=== PATIENT | male | born 1935 | race Caucasian/White ===

== ENCOUNTER → 2018-04-25 10:42 | Outpatient (CLI) | payer MEDICARE, OTHER, SELFPAY | PROVIDERS: Family Provider Internal Medicine; PCP Internal Medicine; Visit Provider Internal Medicine Cardiovascular Disease | DX: I48.92 Unspecified atrial flutter (principal) | CPT/HCPCS: 93225; 93226 ==

== ENCOUNTER → 2018-07-02 10:50 | Outpatient (CLI) | payer MEDICARE, OTHER, SELFPAY ==
--- NOTE | 2018-07-02 10:51 | ECHOD_ITS ---
Reason For Study: MURMUR Procedure This was a 2D Doppler, Color Flow transthoracic echocardiogram. The study was technically difficult. Exam performed in department. Left Ventricle Normal LV size. Left ventricular systolic function is normal. The estimated ejection fraction is 65 %. There is evidence of diastolic dysfunction. No regional wall motion abnormalities noted. Right Ventricle Normal RV size. Normal systolic function. Atria Normal left atrium. Normal right atrium. No doppler evidence for ASD. Mitral Valve There is moderate to severe mitral annular calcification. Extension of the mitral annular calcification onto the posterior mitral valve leafleet. Trivial mitral valve insufficiency. Tricuspid Valve Normal tricuspid valve. Mild tricuspid valve insufficiency. Right ventricular systolic pressure estimated to be 58 mmHg. Aortic Valve Trisinus/trileaflet aortic valve. Moderate diffuse aortic valve thickening. Moderate diffuse aortic valve calcification. Moderate to severe aortic valve stenosis. Pulmonic Valve The pulmonic valve is not well visualized. Trivial pulmonic valve insufficiency. Great Vessels Normal sized aortic root. Pericardium/Pleural No pericardial effusion. MMode/2D Measurements & Calculations LVIDd: 4.0 cm IVSd: 1.0 cm LVOT diam: 2.0 cm LVIDs: 2.7 cm LVPWd: 0.93 cm LVOT area: 3.3 cm2 RVDd: 3.4 cm FS: 33.2 % Ao root diam: 3.2 cm LAV(MOD-bp): 42.7 ml LVAd ap4: 28.1 cm2 LAV(MOD-bp) Indexed: 24.0 ml/m2 EDV(MOD-sp4): 87.1 ml LAV(MOD-sp2): 46.9 ml EDV(sp4-el): 88.8 ml LAV(MOD-sp4): 34.7 ml LVAs ap4: 18.5 cm2 ESV(MOD-sp4): 41.3 ml ESV(sp4-el): 43.1 ml EF(MOD-sp4): 52.6 % EF(sp4-el): 51.5 % SV(MOD-sp4): 45.8 ml SV(sp4-el): 45.7 ml LA A4 area: 15.2 cm2 LA dimension(2D): 2.8 cm RA A4 area: 14.0 cm2 Time Measurements MV dec time: 0.27 sec Doppler Measurements & Calculations MV E max herb: 128.9 cm/sec Lat Peak E' Herb: 8.4 cm/sec Med Peak E' Herb: 5.6 cm/sec MV A max herb: 178.6 cm/sec E/E' lat: 15.3 E/E' med: 22.9 MV E/A: 0.72 MV V2 max: 207.0 cm/sec Ao V2 max: 330.8 cm/sec LV V1 max: 94.3 cm/sec MV max P.1 mmHg Ao max P.9 mmHg LV V1 max P.6 mmHg MV V2 mean: 131.5 cm/sec Ao V2 mean: 250.2 cm/sec LV V1 mean P.1 mmHg MV mean P.8 mmHg Ao mean P.5 mmHg LV V1 mean: 67.6 cm/sec MV V2 VTI: 40.0 cm Ao V2 VTI: 79.6 cm LV V1 VTI: 22.9 cm MVA(VTI): 1.9 cm2 YVONNE(I,D): 0.94 cm2 YVONNE(V,D): 0.93 cm2 SV(LVOT): 74.7 ml PA V2 max: 107.9 cm/sec TR max herb: 368.6 cm/sec TR max P.5 mmHg Interpretation Summary The study was technically difficult. Left ventricular systolic function is normal. The estimated ejection fraction is 65 %. There is moderate to severe mitral annular calcification. Extension of the mitral annular calcification onto the posterior mitral valve leafleet. Trivial mitral valve insufficiency. Mild tricuspid valve insufficiency. Moderate to severe aortic valve stenosis. Trivial pulmonic valve insufficiency. Right ventricular systolic pressure estimated to be 58 mmHg c/w pulmonary hypertension. There is evidence of diastolic dysfunction. Ordering Physician: Jason Alan Referring Physician: Jason Alan Performed By: Thuy Mckenna RDCS
--- OUTSIDE RECORDS SUMMARY | 2018-08-14 02:35 | XMS RPT_ITS ---
:1935 Author Organization OHIP Support Name Relationship Address Phone R Unavailable Unavailable Unavailable DAO, ANGY Unavailable [address] + [place] [address] R Unavailable Unavailable Unavailable DAO, ANGY Unavailable [address] + [place] [address] R Unavailable Unavailable Unavailable DAO, ANYG Unavailable [address] + [place] [address] R Unavailable Unavailable Unavailable DAO, ANGY Unavailable [address] + [place] [address] R Unavailable Unavailable Unavailable DAO, ANGY Unavailable [address] + [place] [address] R Unavailable Unavailable Unavailable DAO, ANGY Unavailable [address] + [place] [address] R Unavailable Unavailable Unavailable DAO, AGNY Unavailable [address] + [place] [address] R Unavailable Unavailable Unavailable DAO, ANGY Unavailable [address] + [place] [address] R Unavailable Unavailable Unavailable DAO, ANGY Unavailable [address] + [place] [address] R Unavailable Unavailable Unavailable DAO, ANGY Unavailable [address] + [place] [address] R Unavailable Unavailable Unavailable DAO, ANGY Unavailable [address] + [place] [address] R Unavailable Unavailable Unavailable DAO, ANGY Unavailable [address] + [place] [address] R Unavailable Unavailable Unavailable DAO, ANGY Unavailable [address] + [place] [address] R Unavailable Unavailable Unavailable DAO, ANGY Unavailable [address] + [place] [address] R Unavailable Unavailable Unavailable DAO, ANGY Unavailable [address] + [place] [address] R Unavailable Unavailable Unavailable DAO, ANGY Unavailable [address] + [place] [address] Care Team Providers Name Role Phone CAROLANN LI Referring Unavailable BECKWITH, MISAEL Guillaume Referring Unavailable KOKO, SARA Edwards Attending Unavailable LI, CAROLANN Referring Unavailable BECKWITH, MISAEL Guillaume Attending Unavailable BECKWITH, MISAEL Guillaume Referring Unavailable BECKWITH, MISAEL Guillaume Referring Unavailable LI, CAROLANN Attending Unavailable LI, CAROLANN Referring Unavailable LI, CAROLANN Referring Unavailable BECKWITH, MISAEL Guillaume Attending Unavailable BECKWITH, MISAEL Guillaume Referring Unavailable KOKO, SARA Edwards Referring Unavailable KOKO, SARA Edwards Referring Unavailable KOKO, SARA Edwards Attending Unavailable LI, CAROLANN Referring Unavailable Cipriano Puckett.Guillermo. Attending Unavailable Beckwith, Misael Primary Care Unavailable RoofEliceo Attending Unavailable Beckwith, Misael Referring Unavailable SewellXena Attending Unavailable Shu Chahal Attending Unavailable Beckwith, Misael Referring Unavailable Beckwith, Misael Primary Care Unavailable RoofEliceo Attending Unavailable DeFinisAshley Attending Unavailable RoofEliceo Attending Unavailable Beckwith, Misael Referring Unavailable Zuly, Briana Attending Unavailable Beckwith, Misael Referring Unavailable Cipriano Puckett.Guillermo. Attending Unavailable Beckwith, Misael Referring Unavailable Zuly, Briana Attending Unavailable Beckwith, Misael Referring Unavailable Zuly, Briana Attending Unavailable Beckwith, Misael Referring Unavailable Beckwith, Misael Primary Care Unavailable Moodispaw, Jason Attending Unavailable MoodispawJason Referring Unavailable Beckwith, Misael Primary Care Unavailable Moodispaw, Jason Attending Unavailable Beckwith, Misael Referring Unavailable Moodispaw, Jason Attending Unavailable MoodispawJason Referring Unavailable Moodispaw, Jason Attending Unavailable MoodispawJason Referring Unavailable Beckwith, Misael Primary Care Unavailable Moodispaw, Jason Attending Unavailable Moodispaw, Jason Referring Unavailable Beckwith, Misael Primary Care Unavailable Jason Alan Consulting Unavailable PROBLEMS PROBLEMS DATE TYPE CONDITION / CODE ATTENDING STATUS SOURCE 07/08/2018 Unknown I36.1 - Jason Alan Active [facility] tricuspid (valve[facility] insufficiency / Repository I36.1(ICD-10) 06/25/2017 Active Chronic respiratory NA Active [facility] failure with [place] hypoxia / Repository J96.11(ICD-10) 02/07/2017 Active Chronic obstructive NA Active [facility] pulmonary disease [place] with (acute) Repository exacerbation / J44.1(ICD-10) 06/13/2018 Active Other nonspecific NA Active [facility] abnormal finding of [place] lung field / Repository R91.8(ICD-10) 06/13/2018 Active Chronic obstructive NA Active [facility] pulmonary disease, [place] unspecified / Repository J44.9(ICD-10) 06/13/2018 Active 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 / [place] C33(ICD-10) Repository 06/13/2018 Active Malignant neoplasm NA Active [facility] of overlapping [place] sites of Repository unspecified bronchus and lung / C34.80(ICD-10) 06/08/2018 Active Encounter for NA Active [facility] immunization / [place] Z23(ICD-10) Repository 04/25/2018 Unknown I48.92 - Jason Alan Active [place] [facility] flutter / Hospital I48.92(ICD-10) Repository 06/25/2017 Active Acute on chronic NA Active [facility] diastolic [place] (congestive) heart Repository failure / I50.33(ICD-10) 10/26/2015 Active Essential (primary) NA Active [facility] hypertension / [place] I10(ICD-10) Repository 01/02/2018 Active Personal history of NA Active [facility] other malignant [place] neoplasm of Repository bronchus and lung / Z85.118(ICD-10) 01/02/2018 Active Pleural effusion, NA Active [facility] not elsewhere [place] classified / Repository J90(ICD-10) 09/04/2017 Active 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, unspecified [place] / K11.9(ICD-10) Repository PROCEDURES PROCEDURES No Procedure Records FoundRESULTS RESULTS ECHOCARDIOGRAM COMPLETE Observed: 07/02/2018 Status: F Source: [place] [facility] Cardiovascular Services [address] [place] [address] Echo Complete 07/02/18 1055 MR#: [id number] Acct: [id number] Name: BENJY DC Rep #: [id number] : 1935 82 From: Jason Alan MD Attending Dr: Jason Alan MD Status: REG CLI Ordering Dr: Jason Alan MD Date: 07/02/18 Location: [facility] Sex: M C Admitted: Reason For Study: MURMUR Procedure This was a 2D Doppler, Color Flow transthoracic echocardiogram. The study was technically difficult. Exam performed in department. Left Ventricle Normal LV size. Left ventricular systolic function is normal. The estimated ejection fraction is 65 %. There is evidence of diastolic dysfunction. No regional wall motion abnormalities noted. Right Ventricle Normal RV size. Normal systolic function. Atria Normal left atrium. Normal right atrium. No doppler evidence for ASD. Mitral Valve There is moderate to severe mitral annular calcification. Extension of the mitral annular calcification onto the posterior mitral valve leafleet. Trivial mitral valve insufficiency. Tricuspid Valve Normal tricuspid valve. Mild tricuspid valve insufficiency. Right ventricular systolic pressure estimated to be 58 mmHg. Aortic Valve Trisinus/trileaflet aortic valve. Moderate diffuse aortic valve thickening. Moderate diffuse aortic valve calcification. Moderate to severe aortic valve stenosis. Pulmonic Valve The pulmonic valve is not well visualized. Trivial pulmonic valve insufficiency. Great Vessels Normal sized aortic root. Pericardium/Pleural No pericardial effusion. MMode/2D Measurements AND Calculations LVIDd: 4.0 cm IVSd: 1.0 cm LVOT diam: 2.0 cm LVIDs: 2.7 cm LVPWd: 0.93 cm LVOT area: 3.3 cm2 RVDd: 3.4 cm FS: 33.2 % Ao root diam: 3.2 cm LAV(MOD-bp): 42.7 ml LVAd ap4: 28.1 cm2 LAV(MOD-bp) Indexed: 24.0 ml/m2 EDV(MOD-sp4): 87.1 ml LAV(MOD-sp2): 46.9 ml EDV(sp4-el): 88.8 ml LAV(MOD-sp4): 34.7 ml LVAs ap4: 18.5 cm2 ESV(MOD-sp4): 41.3 ml ESV(sp4-el): 43.1 ml EF(MOD-sp4): 52.6 % EF(sp4-el): 51.5 % SV(MOD-sp4): 45.8 ml SV(sp4-el): 45.7 ml LA A4 area: 15.2 cm2 LA dimension(2D): 2.8 cm RA A4 area: 14.0 cm2 Time Measurements MV dec time: 0.27 sec Doppler Measurements AND Calculations MV E max herb: 128.9 cm/sec Lat Peak E' Herb: 8.4 cm/sec Med Peak E' Herb: 5.6 cm/sec MV A max herb: 178.6 cm/sec E/E' lat: 15.3 E/E' med: 22.9 MV E/A: 0.72 MV V2 max: 207.0 cm/sec Ao V2 max: 330.8 cm/sec LV V1 max: 94.3 cm/sec MV max P.1 mmHg Ao max P.9 mmHg LV V1 max P.6 mmHg MV V2 mean: 131.5 cm/sec Ao V2 mean: 250.2 cm/sec LV V1 mean P.1 mmHg MV mean P.8 mmHg Ao mean P.5 mmHg LV V1 mean: 67.6 cm/sec MV V2 VTI: 40.0 cm Ao V2 VTI: 79.6 cm LV V1 VTI: 22.9 cm MVA(VTI): 1.9 cm2 YVONNE(I,D): 0.94 cm2 YVONNE(V,D): 0.93 cm2 SV(LVOT): 74.7 ml PA V2 max: 107.9 cm/sec TR max herb: 368.6 cm/sec TR max P.5 mmHg Interpretation Summary The study was technically difficult. Left ventricular systolic function is normal. The estimated ejection fraction is 65 %. There is moderate to severe mitral annular calcification. Extension of the mitral annular calcification onto the posterior mitral valve leafleet. Trivial mitral valve insufficiency. Mild tricuspid valve insufficiency. Moderate to severe aortic valve stenosis. Trivial pulmonic valve insufficiency. Right ventricular systolic pressure estimated to be 58 mmHg c/w pulmonary hypertension. There is evidence of diastolic dysfunction. Ordering Physician: Jason Alan Physician: Jason Alan Performed By: Thuy Mckenna RDCS 07/02/18 1538 Date Jason Alan MD CC: Jason lAan MD; Misael Beckwith MD Date Dictated: 07/02/18 1055 Date Transcribed: 07/02/18 1538 Mechanical Detailer: Signed PROGRESS Observed: 06/13/2018 Status: COMPLETED Source: [place] 11:01 AM [facility] [place] REPOSITORY HNO ID: [id number] Author: Yesy [address] Ct Service: (none) Author Type: (none) Type: Progress Notes Filed: 06/13/2018 11:01 AM Note Text: Radiology Service Progress Note PATIENT NAME: Benjy Dc DATE OF SERVICE: June 13, 2018 TIME: 11:01 AM PATIENT IDENTITY VERIFICATION COMPLETED USING TWO (2) METHODS: Patient confirmed name verbally and Date of . PATIENT GENDER DATA: Male PATIENT RELEVANT IMPLANT DATA REVIEWED: Not Applicable RADIOLOGY DEPARTMENT: CT; Exam(s) Completed: Chest PERIPHERAL IV DATA: Not applicable SIGNED BY: Yesy Grady June 13, 2018 11:[address] CHEST WO IVCON Observed: 06/13/2018 Status: F Source: [place] 10:25 AM [facility] [place] REPOSITORY * * *Final Report* * * DATE OF EXAM: Jun 13 2018 10:25AM [facility] 0541 - CT CHEST WO IVCON / PROCEDURE REASON: multiple diagnoses * * * * Physician Interpretation * * * * EXAMINATION: CHEST CT WITHOUT CONTRAST CLINICAL HISTORY: History of lung cancer of the right lower lobe status post radiation therapy completed on 10/19/2015. Also with history of COPD. Follow-up study. Technique: Spiral CT acquisition of the chest from the thoracic inlet to the upper abdomen without contrast. MQ: CTCWOR_4 CT Dose-Length Product: 184 mGy*cm CT Dose Reduction Employed: Yes Comparison: Prior CTs of the chest including from 01/02/2018. RESULT: Limitations: None. Lines, tubes, and devices: Left chest wall dual chamber pacemaker with leads in appropriate position. Lung parenchyma and pleura: Central airways are patent without endobronchial lesion. Bilateral bronchial wall thickening. Mild saber sheath configuration of the trachea consistent with COPD. Bilateral severe centrilobular and paraseptal emphysema with an upper lung zone predominance. Stable calcified biapical scarring, most pronounced in the right apex. There is redemonstration of an ill-defined region of consolidation in the right lung base with radiating bands of scar/fibrosis and associated volume loss, consistent with postradiation fibrosis. No interval increase in overall size. Scattered granulomata. Stable 5 mm nodule in the left lower lobe (image 178). No new or enlarging pulmonary nodule. There is redemonstration of a trace loculated right pleural effusion, stable to minimally decreased in size when compared to 01/02/2018. No left pleural effusion. No pneumothorax. Thoracic inlet, heart, and mediastinum: No axillary, supraclavicular, or definite hilar lymphadenopathy. Numerous stable small, mildly prominent mediastinal nodes, for example a right upper paratracheal node measuring 8 mm in short axis, and 9 mm prevascular node (image 62). 8 mm left paratracheal lymph node (image 91), previously 10 mm, and 9 mm subcarinal lymph node (image 116), stable. The thoracic aorta is normal in caliber with calcifications of the aortic root and suspected of the leaflets, atherosclerosis of the aortic arch and descending aorta, and proximal branch vessels. The main pulmonary artery is normal in caliber. The cardiac chambers are normal in size. Mitral annular and papillary muscle calcifications. Dense coronary artery atherosclerotic calcifications are noted in a three-vessel distribution, although the study is not optimized for coronary assessment. No pericardial effusion or thickening. The thyroid gland is unremarkable. The esophagus is patulous. Bones and soft tissues: Remote right eighth and ninth rib fractures. Multilevel degenerative changes of the thoracic spine with stable multilevel vertebral body height loss. No acute or destructive osseous lesions. The soft tissues of the chest wall are unremarkable. Upper abdomen: Vascular calcifications. Colonic diverticulosis. Splenic granulomata. IMPRESSION: Overall stable study when compared to 01/02/2018 with demonstration of treated neoplasm in the right lower lobe with sequelae of radiation fibrosis. Stable 5 mm nodule in the anterior left lower lobe. No new or enlarging pulmonary nodules. No progressive thoracic lymphadenopathy. Overall slight decrease in size of multiple mildly prominent mediastinal nodes. Unchanged tiny loculated right pleural effusion. Severe emphysema. Mechanical Detailer: RICHARD Transcribe Date/Time: Jun 13 2018 1:07P Dictated by : MICHAEL PRESTON MD This examination was interpreted and the report reviewed and electronically signed by: JO-ANN TRAYLOR MD on Jun 13 2018 4:25PM EST [id number] CNNURSE Observed: 06/08/2018 Status: COMPLETED Source: [place] 10:50 AM [facility] REPOSITORY Nurse Visit ([facility]) BENJY DC ([id number]) 1935 M Date Time Provider Department 06/08/18 10:50 AM [facility] During your visit today, we recorded the following information about you: Yesy Lafleur [place] 06/08/2018 11:00 AM Signed 82 year old male here for INACTIVATED INFLUENZA VACCINE. 9007-8604 Season Patient is identified by name and date of : Yes [] CONTRAINDICATIONS color enhanced section Age less than 6 months? No Allergy to eggs, chicken, chicken feathers, or chicken dander? No Allergy to thimerosal (a preservative) or formaldehyde, gelatin? No History of severe reaction to any vaccine component or a previous dose of influenza vaccination? No History of Guillain-Pembroke Syndrome within 6 weeks after a previous influenza vaccine? No Patient is not moderately or severely ill? No Current temperature greater or equal to 100.4F? No History of Bone Marrow Transplant prior 6 months or solid organ transplant in the past 3 months ? No History of fainting after a prior injection or medical procedure? No- ? If patient has fainted in the past, the CDC recommends sitting or lying down for 15 minutes after the vaccination. [] VERIFICATION color enhanced section Was the answer Yes for any of the above contraindications? No contraindications present. Acceptable to proceed with vaccine. Patient/guardian agrees the above answers are true to the best of their knowledge? Yes Flu vaccine information sheet given? Yes See immunization activity in [facility] for details of immunizations adminstered today. Patient age: [age] year old For The 3050-5785 Flu Season 6-35 months old: Fluzone 0.25 ml - IM (Preservative Free) 3 years of age: Fluzone 0.5 ml - IM (Preservative Free) 3 years and older: Fluzone 0.5 ml- IM-(with Preservatives) 65+ years old: 2-49 years old Fluzone High-Dose 0.5 ml - IM (Preservative Free) FLUMIST- intranasal REMEMBER: If patient is less than 9 years of age and this is the first vaccine of Influenza to be received in any flu season, they should receive a second dose in one months time. Referring Provider: MISAEL BECKWITH [[id number]] Allergies As of Date: 06/08/2018 Noted Allergy Reaction AMOXICILLIN 06/08/2014 2 - Rash BACTRIM (SULFAMETHOXAZOLE-TRIMETH*05/25/2017 2 - Rash CODEINE 04/28/2005 2 - Rash SULFUR 10/27/2016 2 - Rash 4 - Hives ZPAK (AZITHROMYCIN) 12/07/2011 2 - Rash Date Reviewed: 03/21/2018 Reviewed by: Sara Bonner - Fully Assessed Reason for Visit: Imm/Inj [58] Cmt: Flu Vaccine Primary Visit Diagnosis:Need for vaccination [Z23] Order(s):INFLUENZA SEASONAL HIGH DOSE AGE 65+ [[id number]] Order #: [id number] Prescriptions as of 06/08/2018 Sig: LOSARTAN 25 MG TABLET Take 1 tablet by mouth once d* UMECLIDINIUM 62.5 MCG-VILANTE* Inhale 1 Inhalation as instru* ALBUTEROL SULFATE HFA 90 MCG/* Inhale 2 Puffs as instructed * FUROSEMIDE 40 MG TABLET Take 1 tablet by mouth once d* AMLODIPINE 5 MG TABLET Take 1 tablet by mouth once d* POLYETHYLENE GLYCOL 3350 17 G* Use one scoop daily as needed. * CHOLECALCIFEROL (VITAMIN D3) * Take one(1) tablet daily. Problem List As Of Date 06/08/2018 Noted Resolved Other emphysema (HCC) [J43.8] 10/28/2016 Elevated prostate specific antigen (PSA) [R97.2*INVALID FOR*10/28/2016 Chronic obstructive pulmonary disease with acut*INVALID FOR* Dysphagia [R13.10] INVALID FOR*09/25/2017 Early satiety [R68.81] INVALID FOR*10/28/2016 GERD (gastroesophageal reflux disease) [K21.9] INVALID FOR*09/25/2017 Hernia, hiatal [K44.9] INVALID FOR*10/28/2016 Medicare annual wellness visit, subsequent [Z00*INVALID FOR*10/28/2016 Personal history of colonic polyps [Z86.010] INVALID FOR*10/28/2016 HTN (hypertension) [I10] INVALID FOR*10/26/2015 Hyperlipidemia [E78.5] INVALID FOR* Lung nodule [R91.1] INVALID FOR*10/28/2016 BPH (benign prostatic hyperplasia) [N40.0] INVALID FOR* Elevated PSA [R97.20] INVALID FOR*10/28/2016 Dysphagia [R13.10] INVALID FOR*10/07/2015 Essential hypertension [I10] INVALID FOR* Non-small cell lung cancer (NSCLC) (HCC) [C34.9*INVALID FOR* Panlobular emphysema (HCC) [J43.1] INVALID FOR*10/28/2016 Chronic bilateral thoracic back pain [M54.6, G8*INVALID FOR*02/07/2017 Constipation [K59.00] INVALID FOR*02/21/2018 Status post stereotactic radiosurgery (SBRT rig*INVALID FOR* Acute on chronic diastolic congestive heart pete*INVALID FOR* Chronic respiratory failure with hypoxia (HCC) *INVALID FOR* Aortic valve stenosis [I35.0] INVALID FOR* Pacemaker [Z95.0] INVALID FOR* AV block, Mobitz 1 [I44.1] INVALID FOR* Pulmonary hypertension (HCC) [I27.20] INVALID FOR* Encounter Status:Closed by YESY LAFLEUR LPN on 06/08/18 PROGRESS Observed: 06/04/2018 Status: COMPLETED Source: [place] 12:43 PM [facility] REPOSITORY HNO ID: [id number] Author: Yesy Lafleur LPN Service: (none) Author Type: (none) Type: Progress Notes Filed: 06/08/2018 11:00 AM Note Text: 82 year old male here for INACTIVATED INFLUENZA VACCINE. 3299-1648 Season Patient is identified by name and date of : Yes [] CONTRAINDICATIONS color enhanced section Age less than 6 months? No Allergy to eggs, chicken, chicken feathers, or chicken dander? No Allergy to thimerosal (a preservative) or formaldehyde, gelatin? No History of severe reaction to any vaccine component or a previous dose of influenza vaccination? No History of Guillain-Pembroke Syndrome within 6 weeks after a previous influenza vaccine? No Patient is not moderately or severely ill? No Current temperature greater or equal to 100.4F? No History of Bone Marrow Transplant prior 6 months or solid organ transplant in the past 3 months ? No History of fainting after a prior injection or medical procedure? No- ? If patient has fainted in the past, the CDC recommends sitting or lying down for 15 minutes after the vaccination. [] VERIFICATION color enhanced section Was the answer Yes for any of the above contraindications? No contraindications present. Acceptable to proceed with vaccine. Patient/guardian agrees the above answers are true to the best of their knowledge? Yes Flu vaccine information sheet given? Yes See immunization activity in [facility] for details of immunizations adminstered today. Patient age: [age] year old For The 6598-3528 Flu Season 6-35 months old: Fluzone 0.25 ml - IM (Preservative Free) 3 years of age: Fluzone 0.5 ml - IM (Preservative Free) 3 years and older: Fluzone 0.5 ml- IM-(with Preservatives) 65+ years old: 2-49 years old Fluzone High-Dose 0.5 ml - IM (Preservative Free) FLUMIST- intranasal REMEMBER: If patient is less than 9 years of age and this is the first vaccine of Influenza to be received in any flu season, they should receive a second dose in one months time. CARDIOLOGY VISIT Observed: 05/20/2018 Status: F Source: [place] 12:33 PM [facility] [place] [facility] [address] [place] [address]. [address] [place] [address] OFFICE VISIT Date of Service: 05/20/18 MR#: [id number] Acct: [id number] Name: BENJY DC Rep #: [id number] : 1935 Provider: Jason Alan MD Age/Sex: 82/M Location: [facility] [place] Status: Signed HPI HPI Details: BENJY DC, is a 82 M who presents to the office today for for outpatient cardiovascular follow-up. From a cardiac standpoint he denies ongoing palpitations or rapid rates. He denies any near syncope or syncope. There has been no new chest discomfort or difficulty breathing. His pacemaker has been interrogated. There was a question of mode switching with potential underlying atrial flutter x1. He underwent a 24-hour Holter monitor to further evaluate his rate and rhythm. He was in an AV synchronous or AV sequential paced rhythm with no underlying atrial dysrhythmias detected. He has not required additional cardiovascular diagnostic studies or therapeutic intervention. He is pending an upcoming [facility] follow-up for his underlying pulmonary disease process. Intake Vital Signs05/20/18 Height 5 ft 7 in 05/20/18 Weight: 155 lb 05/20/18 Body Mass Index (BMI) 24.3 05/20/18 Blood Pressure 148/68 H Intake Visit Reasons: 9 M FU Allergies ampicillin Allergy (Verified 05/20/18 11:26) Anaphylaxis codeine Allergy (Verified 05/20/18 11:26) Rash penicillin G Allergy (Verified 05/20/18 11:26) Rash Sulfa (Sulfonamide Antibiotics) Allergy (Verified 05/20/18 11:26) Rash Medications Albuterol IH (ProAir) [Proair Hfa] 1 puff INHALATION Q4H PRN PRN 07/10/14 [History Confirmed 05/20/18] Cholecalciferol (VIT D3) [Vitamin D3] 1,000 unit PO DAILY 06/25/16 [History Confirmed 05/20/18] Polyethylene Glycol 3350 [Miralax] 17 gm PO DAILY PRN PRN 09/27/16 [History Confirmed 05/20/18] Acetaminophen [Tylenol Tablet] 650 mg PO Q6H PRN PRN #0 tab 10/24/16 [Rx Confirmed 05/20/18] Amlodipine [Norvasc] 5 mg PO DAILY #30 tab 06/12/17 [Rx Confirmed 05/20/18] Furosemide [Lasix] 40 mg PO DAILY #30 tab 06/12/17 [Rx Confirmed 05/20/18] Losartan Potassium 25 mg PO DAILY #0 06/12/17 [Rx Confirmed 05/20/18] umeclidinium 62.5 mcg-vilanterol 25 mcg/actuation powdr for inhalation 1 inh INHALATION Q24H 08/16/17 [History Confirmed 05/20/18] PFSH Medical History Paroxysmal atrial flutter (Acute) Acute on chronic diastolic (congestive) heart failure (Acute) Aortic valve stenosis, nonrheumatic (Acute) 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) Chronic respiratory failure (Chronic) Dyspnea (Acute) COPD (chronic obstructive pulmonary disease) (Chronic) Chest pain (Acute) Pulmonary congestion (Acute) Conduction disorder of the heart (Acute) Aortic valve disorder (Chronic) Pulmonary hypertension (Chronic) Acute exacerbation of chronic obstructive pulmonary disease (Acute) Acute exacerbation of chronic obstructive pulmonary disease (COPD) (Acute) Drug rash (Acute) FH: cardiovascular disease (Chronic) Family history of diabetes mellitus (DM) (Chronic) Colon polyps (Chronic) Hyperglycemia (Acute) CAP (community acquired pneumonia) (Acute) GERD (gastroesophageal reflux disease) (Chronic) Hyponatremia (Acute) Dehydration (Acute) Bullous emphysema (Chronic) Lung nodule, solitary (Acute) Lung cancer (Chronic) HTN (hypertension) (Chronic) Anxiety (Acute) Hemoptysis (Acute) Mobitz type 1 second degree AV block (Acute) Chronic hypoxemic respiratory failure (Chronic) Surgical History History of permanent cardiac pacemaker placement (Resolved) History of appendectomy (Resolved) Hx of cataract surgery (Resolved) Family History Brother Diabetes Sister Diabetes Lung cancer Social History Smoking Status: Former smoker quit date: 08/06/59 pack-years: 5 second hand exposure: No alcohol intake: never substance use type: does not use caffeine: Yes Type: coffee Number of servings: 4 what type of physical activity do you participate in: none seatbelt use: always do you feel safe at home: Yes ROS Const Const: Positive for fatigue (no get up and go); negative for weakness, weight gain, weight loss, frequent falls or excessive sweating Eyes Eyes: Negative for change in vision, blurry vision or transient loss of vision ENT ENT: Negative for dizziness or balance problems Cardio Chest Pain: No Palpitations: No Edema: None Muscle aches with walking: None Resp Respiratory: Positive for SOB with activity (improving); negative for SOB at rest Additional Details: Patient wears continuous oxygen @ 3-4L NC GI GI: Negative vomiting or vomiting blood/hematemesis : Negative for hematuria Musc Musc: Positive for muscle aches/ myalgia (Bilat hips, back); negative for balance problems, muscle weakness or joint pain Skin Skin: Negative non-healing lesions or rash Neuro Neuro: Negative for weakness, blurry vision, dizziness, lightheadedness, frequent falls or orthostatic symptoms Jasvir Hematologic/Lymphatic: Negative for easy bleeding Endo Endo: Positive for fatigue (no get up and go); negative for excessive sweating Psych Psych: Negative for anxiety or depression Allergy Allergy/Immunology: Negative for hives, Negative for rash Cardiology Exam Const Appearance: cooperative, healthy appearing, comfortable, no acute distress, well developed, well groomed and other (examined in the wheelchair) Nutritional Appearance: average body habitus Orientation: alert, awake and oriented x3 Head Head: normal to inspection, normocephalic and atraumatic Ears: hearing grossly normal bilaterally Nose: external nose normal Face and Sinus: face symmetric Mouth: oral mucosae normal Teeth and gingiva: fair dentition Eyes Eyelids: eyelids normal Conjunctivae: conjunctivae normal Pupils: PERRL EOM: EOM intact bilaterally Neck Neck: no JVD, normal visual inspection and full ROM Carotids: normal carotid upstroke Chest Chest inspection: normal inspection of the chest, normal respiratory effort and symmetric chest movement Auscultation: Bilateral: Clear to Auscultation Cardio Palpation: normal PMI Rate: regular rate Rhythm: regular rhythm Heart sounds: murmur (Right sternal systolic murmur); negative rub or gallop Murmur: Grade 3/6, harsh, mid systolic, LLSB, LVOT and sternal notch GI GI: normal to inspection, bowel sounds present and soft Neuro General: alert, awake, oriented x3 and moves all extremities Skin Skin: no rashes or lesions noted Extremities Pulses: Normal: Right Posterior Tibial Pulse, Left Posterior Tibial Pulse, Right Radial Pulse, Left Radial Pulse Lower Extremity Edema: None: Bilateral Psych Psychological: normal affect Assessment AND Plan 1. 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 He has a permanent pacemaker in place. He is ventricular pacing, based on his last evaluation, 99% of the time. It appears this is either AV synchronous or AV sequential. 2. History of permanent cardiac pacemaker placement Z95.0 06/11/17 Plan His pacemaker was interrogated as noted above. It does appear to be functioning appropriately. Based upon his one isolated mode switch she did undergo further evaluation as noted above. At the present time he will continue to be followed. His paced interrogation will be followed for any other potential atrial dysrhythmias. If he does have ongoing concerning atrial dysrhythmias then consideration ought to be given as to additional evaluation and/or medical therapy. 3. Aortic valve stenosis, nonrheumatic I35.0 Plan He does have underlying aortic valve stenosis. He was evaluated in early June 2017. It was thought to be moderate at that time. He will have a follow-up echocardiogram in the near future to reassess his aortic valve anatomy and physiology for progression of disease since last year. 4. Non-rheumatic tricuspid valve insufficiency I36.1 Plan Again he has underlying tricuspid valve disease/regurgitation. He will be reassessed as noted above Orders Orders: 5. Pulmonary HTN I27.20 Plan The echocardiogram had can help estimate his right sided/pulmonary pressures. In the meantime he continues to follow with pulmonology as well. He continues with O2 supplemental therapy. 6. Essential hypertension I10 Plan His blood pressure appears to be somewhat elevated today. He states he monitors his blood pressure at home. At home his blood pressures have been within acceptable ranges with respect to his systolic blood pressures being between 120 and 130 mmHg on average. He will continue to monitor his blood pressures. If his systolic and/or diastolic blood pressures trend upward then he may need further adjustment of his medication. 7. Paroxysmal atrial flutter I48.92 Plan Again there was concern about 1 isolated mode switch suggesting atrial flutter. There is been no obvious documented recurrence. He will continue to be followed. Again if there are recurrent episodes of atrial dysrhythmias then consideration might be given as to how to further evaluate and/or treat him including concerns of the need for potential anticoagulant therapy. Plan Detail Additional Comments Thank you for allowing me to participate in the care of your patient. Please don't hesitate to call if any issues arise. This note was generated using a voice recognition system and there may be incorrect words, spelling or punctuation that were not noted when reviewing the office note prior to saving. 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 [place] [address] Pacemaker Check Date of Service: 03/27/18 1518 MR#: [id number] Acct: [id number] Name: BENJY DC Rep #: [id number] : 1935 From: Briana Caruso Age/Sex: 82/M Location: [facility] [place] Status: Signed Billing Codes PM Device Codes: PM Dev Interrogate (Remot 03/27/18 1526 <Electronically signed by Briana Caruso > Date Briana Caruso 03/27/18 1546<Electronically signed by Jason Alan MD> Cosigner Signature: Date (if applicable) Jason Alan MD CC: PROGRESS Observed: 03/21/2018 Status: COMPLETED Source: [place] 11:54 AM [facility] [place] REPOSITORY O ID: [id number] Author: Sara Bonner Service: (none) Author Type: Physician Type: Progress Notes Filed: 03/21/2018 11:55 AM Note Text: Subjective HPI Benjy Dc is a 82 year old male who presents with follow-up right parotid mass. Patient has no new complaints presently. Patient did have an attempt at a ultrasound-guided needle biopsy but they were not able to do it due to the small size and the proximity to the retromandibular vein. Patient has had this since 2013 with little if any change. Patient's PET scan did show increased activity in this area as well. ROS General Weight loss: No Fatigue: No Night sweats:No Cardiac Chest pain:No Fast heart rate:No Swelling in the feet:No Respiratory Short of breath:No Cough:No Wheezing:No Gastrointestinal Nausea:No Vomiting:No Indigestion:No Past medical history family history social history reviewed Objective Physical Exam PHYSICAL EXAM: There were no vitals taken for this visit. General: Patient is awake, alert, NAD. Voice is normal. Skin: normal Eyes: Extraocular motion and Gaze is normal. Ears: Right external auditory canal is normal. TMJ: normal. Right tympanic membranes normal. Left external auditory canal is normal. Left tympanic membrane normal. Nose: Septum is normal. Turbinates are normal. Nasopharynx:normal Oral Cavity/Oropharynx: Lips normal Dentition normal Tongue normal. Tonsils normal. Palate and uvula normal. Pharynx posterior normal Hypopharynx: Base of tongue normal Pyriform sinus normal. Larynx: Vocal cords normal. Epiglottis normal. Post cricoid normal. Salivary glands: Parotid normal. Submandibular and sublingual normal. Thyroid: normal. Lymphatic/Neck: Lymph nodes normal. Neurologic: Facial nerve normal. CT reviewed ASSESSMENT/PLAN: 1. Parotid mass - ICD9: 784.2, ICD10: K11.9 Follow-up 6 months may need to repeat CT will defer FNA at this time Sara Bonner MD CNOV Observed: 03/21/2018 Status: COMPLETED Source: [place] 11:30 AM [facility] [place] REPOSITORY Office Visit (OTOLMM) BENJY DC ([id number]) 1935 M Date Time Provider Department 03/21/18 11:30 AM SARA BONNER During your visit today, we recorded the following information about you: Sara Bonner MD 03/21/2018 11:55 AM Signed Subjective HPI Benjy Dc is a 82 year old male who presents with follow-up right parotid mass. Patient has no new complaints presently. Patient did have an attempt at a ultrasound-guided needle biopsy but they were not able to do it due to the small size and the proximity to the retromandibular vein. Patient has had this since 2013 with little if any change. Patient's PET scan did show increased activity in this area as well. ROS General Weight loss: No Fatigue: No Night sweats:No Cardiac Chest pain:No Fast heart rate:No Swelling in the feet:No Respiratory Short of breath:No Cough:No Wheezing:No Gastrointestinal Nausea:No Vomiting:No Indigestion:No Past medical history family history social history reviewed Objective Physical Exam PHYSICAL EXAM: There were no vitals taken for this visit. General: Patient is awake, alert, NAD. Voice is normal. Skin: normal Eyes: Extraocular motion and Gaze is normal. Ears: Right external auditory canal is normal. TMJ: normal. Right tympanic membranes normal. Left external auditory canal is normal. Left tympanic membrane normal. Nose: Septum is normal. Turbinates are normal. Nasopharynx:normal Oral Cavity/Oropharynx: Lips normal Dentition normal Tongue normal. Tonsils normal. Palate and uvula normal. Pharynx posterior normal Hypopharynx: Base of tongue normal Pyriform sinus normal. Larynx: Vocal cords normal. Epiglottis normal. Post cricoid normal. Salivary glands: Parotid normal. Submandibular and sublingual normal. Thyroid: normal. Lymphatic/Neck: Lymph nodes normal. Neurologic: Facial nerve normal. CT reviewed ASSESSMENT/PLAN: 1. Parotid mass - ICD9: 784.2, ICD10: K11.9 Follow-up 6 months may need to repeat CT will defer FNA at this time Sara Bonner MD Referring Provider: CAROLANN LI [[id number]] Allergies As of Date: 03/21/2018 Noted Allergy Reaction AMOXICILLIN 06/08/2014 2 - Rash BACTRIM (SULFAMETHOXAZOLE-TRIMETH*05/25/2017 2 - Rash CODEINE 04/28/2005 2 - Rash SULFUR 10/27/2016 2 - Rash 4 - Hives ZPAK (AZITHROMYCIN) 12/07/2011 2 - Rash Date Reviewed: 03/21/2018 Reviewed by: Sara Bonner - Fully Assessed Reason for Visit: parotid nodule [Other] Cmt: found on PET scan. Patient does not know which side. Reason For Visit History Recorded Primary Visit Diagnosis:Parotid mass [K11.9] Prescriptions as of 03/21/2018 Sig: LOSARTAN 25 MG TABLET Take 1 tablet by mouth once d* UMECLIDINIUM 62.5 MCG-VILANTE* Inhale 1 Inhalation as instru* ALBUTEROL SULFATE HFA 90 MCG/* Inhale 2 Puffs as instructed * FUROSEMIDE 40 MG TABLET Take 1 tablet by mouth once d* AMLODIPINE 5 MG TABLET Take 1 tablet by mouth once d* POLYETHYLENE GLYCOL 3350 17 G* Use one scoop daily as needed. * CHOLECALCIFEROL (VITAMIN D3) * Take one(1) tablet daily. Problem List As Of Date 03/21/2018 Noted Resolved Other emphysema (HCC) [J43.8] 10/28/2016 Elevated prostate specific antigen (PSA) [R97.2*INVALID FOR*10/28/2016 Chronic obstructive pulmonary disease with acut*INVALID FOR* Dysphagia [R13.10] INVALID FOR*09/25/2017 Early satiety [R68.81] INVALID FOR*10/28/2016 GERD (gastroesophageal reflux disease) [K21.9] INVALID FOR*09/25/2017 Hernia, hiatal [K44.9] INVALID FOR*10/28/2016 Medicare annual wellness visit, subsequent [Z00*INVALID FOR*10/28/2016 Personal history of colonic polyps [Z86.010] INVALID FOR*10/28/2016 HTN (hypertension) [I10] INVALID FOR*10/26/2015 Hyperlipidemia [E78.5] INVALID FOR* Lung nodule [R91.1] INVALID FOR*10/28/2016 BPH (benign prostatic hyperplasia) [N40.0] INVALID FOR* Elevated PSA [R97.20] INVALID FOR*10/28/2016 Dysphagia [R13.10] INVALID FOR*10/07/2015 Essential hypertension [I10] INVALID FOR* Non-small cell lung cancer (NSCLC) (HCC) [C34.9*INVALID FOR* Panlobular emphysema (HCC) [J43.1] INVALID FOR*10/28/2016 Chronic bilateral thoracic back pain [M54.6, G8*INVALID FOR*02/07/2017 Constipation [K59.00] INVALID FOR*02/21/2018 Status post stereotactic radiosurgery (SBRT rig*INVALID FOR* Acute on chronic diastolic congestive heart pete*INVALID FOR* Chronic respiratory failure with hypoxia (HCC) *INVALID FOR* Aortic valve stenosis [I35.0] INVALID FOR* Pacemaker [Z95.0] INVALID FOR* AV block, Mobitz 1 [I44.1] INVALID FOR* Pulmonary hypertension (HCC) [I27.20] INVALID FOR* Encounter Status:Closed by SARA BNONER MD on 03/21/18 PROGRESS Observed: 02/21/2018 Status: COMPLETED Source: [place] 12:41 PM [facility] REPOSITORY HNO ID: [id number] Author: Misael Beckwith Service: (none) Author Type: Physician Type: Progress Notes Filed: 02/21/2018 12:51 PM Note Text: This note was created using [email or web address]. Subjective Benjy Dc is a 82 year old male here for follow up, aside from an annual wellness. His conditions were stable. He had no particular concerns. ACTIVE PROBLEM LIST Chronic Obstructive Pulmonary Disease With Acute Exacerbation (Hcc) Hyperlipidemia Bph (Benign Prostatic Hyperplasia) Essential Hypertension Non-Small Cell Lung Cancer (Nsclc) (Hcc) Status post stereotactic radiosurgery (SBRT right lung) Acute On Chronic Diastolic Congestive Heart Failure (Hcc) Chronic Respiratory Failure With Hypoxia (Hcc) Aortic Valve Stenosis Pacemaker Av Block, Mobitz 1 Pulmonary Hypertension (Hcc) Current Outpatient Prescriptions: losartan (COZAAR) 25 mg tablet Take 1 tablet by mouth once daily. umeclidinium-vilanterol (ANORO ELLIPTA) 62.5-25 mcg/actuation inhaler Inhale 1 Inhalation as instructed once daily. albuterol HFA (PROAIR HFA) 90 mcg/actuation inhaler Inhale 2 Puffs as instructed every 4 hours as needed. furosemide (LASIX) 40 mg tablet Take 1 tablet by mouth once daily. amLODIPine (NORVASC) 5 mg tablet Take 1 tablet by mouth once daily. polyethylene glycol 3350 (MIRALAX) 17 gram/dose powder Use one scoop daily as needed. CHOLECALCIFEROL (VITAMIN D3) 1,000 UNIT CAP Take one(1) tablet daily. No current facility-administered medications for this visit. Review of Systems Constitutional: Negative. Respiratory: Positive for cough, shortness of breath and wheezing. Cardiovascular: Positive for leg swelling. Negative for chest pain and palpitations. Gastrointestinal: Negative. Genitourinary: Negative. Neurological: Negative. Objective BP 138/62 (BP Site: Right Arm, BP Position: Sitting, BP Cuff Size: Regular Adult) Pulse 68 Temp 36.2 ?C (97.1 ?F) (Left Tympanic) Resp 20 Ht 165.1 cm (5' 5) Wt 69.3 kg (152 lb 12.8 oz) SpO2 98% BMI 25.43 kg/m? Physical Exam Constitutional: No distress. On O2. Neck: No JVD present. Carotid bruit is not present. Cardiovascular: S1 normal and S2 normal. Exam reveals distant heart sounds. Murmur heard. Systolic murmur is present with a grade of 1/6 At apex and base. Musculoskeletal: He exhibits edema. 1-2+ bipedal edema. Neurological: He is alert. Coordination normal. Component Latest Ref Rng AND Units 02/15/2018 WBC 3.70 - 11.00 k/uL 7.00 RBC 4.20 - 6.00 m/uL 4.46 Hemoglobin 13.0 - 17.0 g/dL 13.2 Hematocrit 39.0 - 51.0 % 43.1 MCV 80.0 - 100.0 fL 96.6 MCH 26.0 - 34.0 pG 29.6 MCHC 30.5 - 36.0 g/dL 30.6 RDW-CV 11.5 - 15.0 % 12.1 Platelet Count 150 - 400 k/uL 224 MPV 9.0 - 12.7 fL 9.3 Neut% % 60.6 Abs Neut (ANC) 1.45 - 7.50 k/uL 4.25 Lymph% % 24.9 Abs Lymph 1.00 - 4.00 k/uL 1.74 Rapides% % 10.9 Abs Rapides <0.87 k/uL 0.76 Eosin% % 2.9 Abs Eosin <0.46 k/uL 0.20 Baso% % 0.7 Abs Baso <0.11 k/uL 0.05 Nucleated Reds 0 /100 WBC 0.0 Absolute nRBC <0.01 k/uL <0.01 Diff Type Auto Diff Protein, Total 6.3 - 8.0 g/dL 6.9 Albumin 3.9 - 4.9 g/dL 4.3 Calcium 8.5 - 10.2 mg/dL 9.8 Bilirubin, Total 0.2 - 1.3 mg/dL 0.4 Alkaline Phosphatase 36 - 108 U/L 76 AST 14 - 40 U/L 23 Glucose 74 - 99 mg/dL 102 (H) BUN 9 - 24 mg/dL 13 Creatinine 0.73 - 1.22 mg/dL 0.75 Sodium 136 - 144 mmol/L 136 Potassium 3.7 - 5.1 mmol/L 4.7 Chloride 97 - 105 mmol/L 93 (L) CO2 22 - 30 mmol/L 32 (H) Anion Gap 9 - 18 mmol/L 11 ALT 10 - 54 U/L 19 eGFR- >60 eGFR-All Other Races . >60 Cholesterol, Total <200 mg/dL 165 Triglyceride <150 mg/dL 51 HDL Cholesterol >39 mg/dL 67 LDL Cholesterol <100 mg/dL 88 Non HDL Cholesterol <130 mg/dL 98 Fasting Time hrs 11 VLDL Cholesterol <30 mg/dL 10 TC:HDL Ratio <5.10 2.46 LDL:HDL Ratio <2.54 1.31 Assessment and Plan 1. Medicare annual wellness visit, subsequent - ICD9: V70.0, ICD10: Z00.00 (primary diagnosis) See other note. 2. Essential hypertension - ICD9: 401.9, ICD10: I10 - good control 3. Chronic obstructive pulmonary disease with acute exacerbation (HCC) - ICD9: 491.21, ICD10: J44.1 Stable. 4. Chronic respiratory failure with hypoxia (HCC) - ICD9: 518.83, 799.02, ICD10: J96.11 Stable. 5. Acute on chronic diastolic congestive heart failure (HCC) - ICD9: 428.33, 428.0, ICD10: I50.33 Stable. Continue medications. See printed instructions or information. Misael Beckwith MD PROGRESS Observed: 02/21/2018 Status: COMPLETED Source: [place] 11:23 AM [facility] REPOSITORY O ID: [id number] Author: Misael Beckwith Service: (none) Author Type: Physician Type: Progress Notes Filed: 02/21/2018 12:51 PM Note Text: ANNUAL MEDICARE WELLNESS Medical B eligibility date 10/04/2008 Date of last exam 07/21/2013 PAST MEDICAL HISTORY Diagnosis Date - Acute on chronic diastolic congestive heart failure (HCC) 06/25/2017 - Aortic valve stenosis 06/25/2017 - AV block, Mobitz 1 06/25/2017 - Benign neoplasm of colon - BPH (benign prostatic hyperplasia) 07/08/2014 - Chronic airway obstruction, not elsewhere classified 02/09/2009 - Chronic bilateral thoracic back pain 10/27/2016 - Chronic respiratory failure with hypoxia (HCC) 06/25/2017 - Dysphagia, unspecified(787.20) - Early satiety - Elevated prostate specific antigen (PSA) 04/28/2005 - Enlargement of lymph nodes - GERD (gastroesophageal reflux disease) 04/04/2010 - Hernia, hiatal 04/04/2010 - Hypertension - Non-small cell lung cancer (NSCLC) ([facility] [place]) 10/26/2015 - Personal history of colonic polyps 08/08/2012 - Pulmonary hypertension (HCC) 06/25/2017 - Status post stereotactic radiosurgery (SBRT right lung) 10/19/2015 PAST SURGICAL HISTORY Procedure Laterality Date - APPENDECTOMY 1953 age 19 - BIOPSY LUNG PERC NEEDLE Right 07/2014 non diagnostic - BRONCHOSCOPY Right 09/30/2015 - COLONOSCOP W/ OR W/O BRSH SPEC 03/03/2009 Colonoscopy - COLONOSCOPY 02/02/2016 - COLONOSCOPY W/BIOPSY 08/08/2012 - COLONOSCOPY W/BX 01/30/05 - EGD W/O BRS SPECIMEN W/BX 04/01/10 - EGD W/O OR W/BRUSH/WASH 04/23/14 EGD - EGD W/O OR W/BRUSH/WASH 10/07/15 EGD - PACEMAKER DUAL CHAMBER TIER 0 Left 06/11/2017 - PAST SURGICAL HISTORY OF 2001 removal left neck lymph node - REMV CATARACT EXTRACAP,INSERT LENS Right 2002 Cataract Removal Amoxicillin; Bactrim [Sulfamethoxazole-Trimethoprim]; Codeine; Sulfur; Zpak [Azithromycin] Medications reviewed: Yes FAMILY HISTORY Problem Relation Age of Onset - Heart Mother - COPD Brother - Diabetes Sister - Heart Brother CABG at age 76, age 78. SOCIAL HISTORY: Social History Marital status: Spouse name: Years of education: Number of children: 4 Social History Main Topics Smoking status: Former Smoker Packs/day: 0.00 Years: 50.00 Types: Cigars Start date: 10/22/1955 Quit date: 08/06/2005 Smokeless tobacco: Never Used Comment: Started w/ cigarettes. Cigars last 40 years. TO Alcohol use: No Drug use: No Sexual activity: No Benjy denies regular aerobic exercise. He watches his diet for sodium, low fat and low cholesterol most of the time. List of current specialists seen: Dr. Li, pulmonary. Dr. Alan, cardiology. Dr. Beasley, ophthalmology. End of Live Planning discussed including patients advanced directive wishes: No I am willing to follow Benjy's advanced directives. Depression screen He in the past two weeks denies having felt down, depressed, hopeless or with little interest or pleasure in doing things. Functional Ability/Safety Screen 1. Was the patient's timed Up and Go test unsteady or longer than 30 seconds? No 2. Does the patient need help with the phone, transportation, shopping,preparing meals, housework, laundry, medications or managing money? No 3. Does your home have rugs in the hallway, lack of grab bars in the bathroom, lack of handrails on the stairs or have poor lighting? No Hearing Evaluation: normal PHYSICAL EXAM BP 138/62 (BP Site: Right Arm, BP Position: Sitting, BP Cuff Size: Regular Adult) Pulse 68 Temp 36.2 ?C (97.1 ?F) (Left Tympanic) Resp 20 Ht 165.1 cm (5' 5) Wt 69.3 kg (152 lb 12.8 oz) SpO2 98% BMI 25.43 kg/m? Alert and oriented X 3: YES Body mass index is 25.43 kg/m?. Visual acuity: forgot glasses. ASSESSMENT/PLAN: 82 year old male The following prevention plan was discussed during the office visit and provided to the patient: - Fall avoidance - Vaccines recommended SHINGRIX. Misael Beckwith MD CNOV Observed: 02/21/2018 Status: COMPLETED Source: [place] 10:20 AM [facility] [place] REPOSITORY Office Visit (INTMWS) BENJY DC ([id number]) 1935 M Date Time Provider Department 02/21/18 10:20 AM MISAEL BECKWITH [facility] During your visit today, we recorded the following information about you: Temperature Pulse Respiration Blood pressure 97.1 degrees 68/minute 20/minute 138/62 Weight Height 69.3 kg 1.651 m Misael Beckwith MD 02/21/2018 12:51 PM Signed ANNUAL MEDICARE WELLNESS Medical B eligibility date 10/04/2008 Date of last exam 07/21/2013 PAST MEDICAL HISTORY Diagnosis Date - Acute on chronic diastolic congestive heart failure (HCC) 06/25/2017 - Aortic valve stenosis 06/25/2017 - AV block, Mobitz 1 06/25/2017 - Benign neoplasm of colon - BPH (benign prostatic hyperplasia) 07/08/2014 - Chronic airway obstruction, not elsewhere classified 02/09/2009 - Chronic bilateral thoracic back pain 10/27/2016 - Chronic respiratory failure with hypoxia (HCC) 06/25/2017 - Dysphagia, unspecified(787.20) - Early satiety - Elevated prostate specific antigen (PSA) 04/28/2005 - Enlargement of lymph nodes - GERD (gastroesophageal reflux disease) 04/04/2010 - Hernia, hiatal 04/04/2010 - Hypertension - Non-small cell lung cancer (NSCLC) (HCC) 10/26/2015 - Personal history of colonic polyps 08/08/2012 - Pulmonary hypertension (HCC) 06/25/2017 - Status post stereotactic radiosurgery (SBRT right lung) 10/19/2015 PAST SURGICAL HISTORY Procedure Laterality Date - APPENDECTOMY 1954 age 19 - BIOPSY LUNG PERC NEEDLE Right 07/2014 non diagnostic - BRONCHOSCOPY Right 09/30/2015 - COLONOSCOP W/ OR W/O BRSH SPEC 03/03/2009 Colonoscopy - COLONOSCOPY 02/02/2016 - COLONOSCOPY W/BIOPSY 08/08/2012 - COLONOSCOPY W/BX 01/30/05 - EGD W/O BRSH SPECIMEN W/BX 04/01/10 - EGD W/O OR W/BRUSH/WASH 04/23/14 EGD - EGD W/O OR W/BRUSH/WASH 10/07/15 EGD - PACEMAKER DUAL CHAMBER TIER 0 Left 06/11/2017 - PAST SURGICAL HISTORY OF 2001 removal left neck lymph node - REMV CATARACT EXTRACAP,INSERT LENS Right 2001 Cataract Removal Amoxicillin; Bactrim [Sulfamethoxazole-Trimethoprim]; Codeine; Sulfur; Zpak [Azithromycin] Medications reviewed: Yes FAMILY HISTORY Problem Relation Age of Onset - Heart Mother - COPD Brother - Diabetes Sister - Heart Brother CABG at age 76, age 78. SOCIAL HISTORY: Social History Marital status: Spouse name: Years of education: Number of children: 4 Social History Main Topics Smoking status: Former Smoker Packs/day: 0.00 Years: 50.00 Types: Cigars Start date: 10/22/1954 Quit date: 08/06/2005 Smokeless tobacco: Never Used Comment: Started w/ cigarettes. Cigars last 40 years. TO Alcohol use: No Drug use: No Sexual activity: No Benjy denies regular aerobic exercise. He watches his diet for sodium, low fat and low cholesterol most of the time. List of current specialists seen: Dr. Li, pulmonary. Dr. Alan, cardiology. Dr. Beasley, ophthalmology. End of Live Planning discussed including patients advanced directive wishes: No I am willing to follow eBnjy's advanced directives. Depression screen He in the past two weeks denies having felt down, depressed, hopeless or with little interest or pleasure in doing things. Functional Ability/Safety Screen 1. Was the patient's timed Up and Go test unsteady or longer than 30 seconds? No 2. Does the patient need help with the phone, transportation, shopping,preparing meals, housework, laundry, medications or managing money? No 3. Does your home have rugs in the hallway, lack of grab bars in the bathroom, lack of handrails on the stairs or have poor lighting? No Hearing Evaluation: normal PHYSICAL EXAM BP 138/62 (BP Site: Right Arm, BP Position: Sitting, BP Cuff Size: Regular Adult) Pulse 68 Temp 36.2 ?C (97.1 ?F) (Left Tympanic) Resp 20 Ht 165.1 cm (5' 5) Wt 69.3 kg (152 lb 12.8 oz) SpO2 98% BMI 25.43 kg/m? Alert and oriented X 3: YES Body mass index is 25.43 kg/m?. Visual acuity: forgot glasses. ASSESSMENT/PLAN: 82 year old male The following prevention plan was discussed during the office visit and provided to the patient: - Fall avoidance - Vaccines recommended SHINGRIX. MD Misael Rajput MD 02/21/2018 11:40 AM Signed Recombinant shingles vaccine (Shingrix) is recommended; 2 doses 2-6 months apart. Please read information, check with your insurance, and call to schedule vaccination. You may also be directed to your local pharmacy. Misael Beckwith MD 02/21/2018 12:51 PM Signed This note was created using NoteWriter. Subjective Benjy Dc is a 82 year old male here for follow up, aside from an annual wellness. His conditions were stable. He had no particular concerns. ACTIVE PROBLEM LIST Chronic Obstructive Pulmonary Disease With Acute Exacerbation (Hcc) Hyperlipidemia Bph (Benign Prostatic Hyperplasia) Essential Hypertension Non-Small Cell Lung Cancer (Nsclc) (Hcc) Status post stereotactic radiosurgery (SBRT right lung) Acute On Chronic Diastolic Congestive Heart Failure (Hcc) Chronic Respiratory Failure With Hypoxia (Hcc) Aortic Valve Stenosis Pacemaker Av Block, Mobitz 1 Pulmonary Hypertension (Hcc) Current Outpatient Prescriptions: losartan (COZAAR) 25 mg tablet Take 1 tablet by mouth once daily. umeclidinium-vilanterol (ANORO ELLIPTA) 62.5-25 mcg/actuation inhaler Inhale 1 Inhalation as instructed once daily. albuterol HFA (PROAIR HFA) 90 mcg/actuation inhaler Inhale 2 Puffs as instructed every 4 hours as needed. furosemide (LASIX) 40 mg tablet Take 1 tablet by mouth once daily. amLODIPine (NORVASC) 5 mg tablet Take 1 tablet by mouth once daily. polyethylene glycol 3350 (MIRALAX) 17 gram/dose powder Use one scoop daily as needed. CHOLECALCIFEROL (VITAMIN D3) 1,000 UNIT CAP Take one(1) tablet daily. No current facility-administered medications for this visit. Review of Systems Constitutional: Negative. Respiratory: Positive for cough, shortness of breath and wheezing. Cardiovascular: Positive for leg swelling. Negative for chest pain and palpitations. Gastrointestinal: Negative. Genitourinary: Negative. Neurological: Negative. Objective BP 138/62 (BP Site: Right Arm, BP Position: Sitting, BP Cuff Size: Regular Adult) Pulse 68 Temp 36.2 ?C (97.1 ?F) (Left Tympanic) Resp 20 Ht 165.1 cm (5' 5) Wt 69.3 kg (152 lb 12.8 oz) SpO2 98% BMI 25.43 kg/m? Physical Exam Constitutional: No distress. On O2. Neck: No JVD present. Carotid bruit is not present. Cardiovascular: S1 normal and S2 normal. Exam reveals distant heart sounds. Murmur heard. Systolic murmur is present with a grade of 1/6 At apex and base. Musculoskeletal: He exhibits edema. 1-2+ bipedal edema. Neurological: He is alert. Coordination normal. Component Latest Ref Rng AND Units 02/15/2018 WBC 3.70 - 11.00 k/uL 7.00 RBC 4.20 - 6.00 m/uL 4.46 Hemoglobin 13.0 - 17.0 g/dL 13.2 Hematocrit 39.0 - 51.0 % 43.1 MCV 80.0 - 100.0 fL 96.6 MCH 26.0 - 34.0 pG 29.6 MCHC 30.5 - 36.0 g/dL 30.6 RDW-CV 11.5 - 15.0 % 12.1 Platelet Count 150 - 400 k/uL 224 MPV 9.0 - 12.7 fL 9.3 Neut% % 60.6 Abs Neut (ANC) 1.45 - 7.50 k/uL 4.25 Lymph% % 24.9 Abs Lymph 1.00 - 4.00 k/uL 1.74 Rapides% % 10.9 Abs Rapides <0.87 k/uL 0.76 Eosin% % 2.9 Abs Eosin <0.46 k/uL 0.20 Baso% % 0.7 Abs Baso <0.11 k/uL 0.05 Nucleated Reds 0 /100 WBC 0.0 Absolute nRBC <0.01 k/uL <0.01 Diff Type Auto Diff Protein, Total 6.3 - 8.0 g/dL 6.9 Albumin 3.9 - 4.9 g/dL 4.3 Calcium 8.5 - 10.2 mg/dL 9.8 Bilirubin, Total 0.2 - 1.3 mg/dL 0.4 Alkaline Phosphatase 36 - 108 U/L 76 AST 14 - 40 U/L 23 Glucose 74 - 99 mg/dL 102 (H) BUN 9 - 24 mg/dL 13 Creatinine 0.73 - 1.22 mg/dL 0.75 Sodium 136 - 144 mmol/L 136 Potassium 3.7 - 5.1 mmol/L 4.7 Chloride 97 - 105 mmol/L 93 (L) CO2 22 - 30 mmol/L 32 (H) Anion Gap 9 - 18 mmol/L 11 ALT 10 - 54 U/L 19 eGFR- >60 eGFR-All Other Races . >60 Cholesterol, Total <200 mg/dL 165 Triglyceride <150 mg/dL 51 HDL Cholesterol >39 mg/dL 67 LDL Cholesterol <100 mg/dL 88 Non HDL Cholesterol <130 mg/dL 98 Fasting Time hrs 11 VLDL Cholesterol <30 mg/dL 10 TC:HDL Ratio <5.10 2.46 LDL:HDL Ratio <2.54 1.31 Assessment and Plan 1. Medicare annual wellness visit, subsequent - ICD9: V70.0, ICD10: Z00.00 (primary diagnosis) See other note. 2. Essential hypertension - ICD9: 401.9, ICD10: I10 - good control 3. Chronic obstructive pulmonary disease with acute exacerbation (HCC) - ICD9: 491.21, ICD10: J44.1 Stable. 4. Chronic respiratory failure with hypoxia (HCC) - ICD9: 518.83, 799.02, ICD10: J96.11 Stable. 5. Acute on chronic diastolic congestive heart failure (HCC) - ICD9: 428.33, 428.0, ICD10: I50.33 Stable. Continue medications. See printed instructions or information. Misael Beckwith MD Referring Provider: MISAEL BECKWITH [[id number]] Allergies As of Date: 02/21/2018 Noted Allergy Reaction AMOXICILLIN 06/08/2014 2 - Rash BACTRIM (SULFAMETHOXAZOLE-TRIMETH*05/25/2017 2 - Rash CODEINE 04/28/2005 2 - Rash SULFUR 10/27/2016 2 - Rash 4 - Hives ZPAK (AZITHROMYCIN) 12/07/2011 2 - Rash Date Reviewed: 02/21/2018 Reviewed by: Kierra Mitchell LPN - Fully Assessed Reason for Visit: Physical [83] Primary Visit Diagnosis:Medicare annual wellness visit, subsequent [Z00.00] Other Visit Diagnoses:Essential hypertension [I10] Chronic obstructive pulmonary disease with acute exacerbation (HCC) [J44.1] Chronic respiratory failure with hypoxia (HCC) [J96.11] Acute on chronic diastolic congestive heart failure (HCC) [I50.33] Prescriptions as of 02/21/2018 Sig: LOSARTAN 25 MG TABLET Take 1 tablet by mouth once d* UMECLIDINIUM 62.5 MCG-VILANTE* Inhale 1 Inhalation as instru* ALBUTEROL SULFATE HFA 90 MCG/* Inhale 2 Puffs as instructed * FUROSEMIDE 40 MG TABLET Take 1 tablet by mouth once d* AMLODIPINE 5 MG TABLET Take 1 tablet by mouth once d* POLYETHYLENE GLYCOL 3350 17 G* Use one scoop daily as needed. * CHOLECALCIFEROL (VITAMIN D3) * Take one(1) tablet daily. Problem List As Of Date 02/21/2018 Noted Resolved Other emphysema (HCC) [J43.8] 10/28/2016 Elevated prostate specific antigen (PSA) [R97.2*INVALID FOR*10/28/2016 Chronic obstructive pulmonary disease with acut*INVALID FOR* Dysphagia [R13.10] INVALID FOR*09/25/2017 Early satiety [R68.81] INVALID FOR*10/28/2016 GERD (gastroesophageal reflux disease) [K21.9] INVALID FOR*09/25/2017 Hernia, hiatal [K44.9] INVALID FOR*10/28/2016 Medicare annual wellness visit, subsequent [Z00*INVALID FOR*10/28/2016 Personal history of colonic polyps [Z86.010] INVALID FOR*10/28/2016 HTN (hypertension) [I10] INVALID FOR*10/26/2015 Hyperlipidemia [E78.5] INVALID FOR* Lung nodule [R91.1] INVALID FOR*10/28/2016 BPH (benign prostatic hyperplasia) [N40.0] INVALID FOR* Elevated PSA [R97.20] INVALID FOR*10/28/2016 Dysphagia [R13.10] INVALID FOR*10/07/2015 Essential hypertension [I10] INVALID FOR* Non-small cell lung cancer (NSCLC) (HCC) [C34.9*INVALID FOR* Panlobular emphysema (HCC) [J43.1] INVALID FOR*10/28/2016 Chronic bilateral thoracic back pain [M54.6, G8*INVALID FOR*02/07/2017 Constipation [K59.00] INVALID FOR*02/21/2018 Status post stereotactic radiosurgery (SBRT rig*INVALID FOR* Acute on chronic diastolic congestive heart pete*INVALID FOR* Chronic respiratory failure with hypoxia (HCC) *INVALID FOR* Aortic valve stenosis [I35.0] INVALID FOR* Pacemaker [Z95.0] INVALID FOR* AV block, Mobitz 1 [I44.1] INVALID FOR* Pulmonary hypertension (HCC) [I27.20] INVALID FOR* Other instructions from your clinician: Recombinant shingles vaccine (Shingrix) is recommended; 2 doses 2-6 months apart. Please read information, check with your insurance, and call to schedule vaccination. You may also be directed to your local pharmacy. Disposition: Return in about 6 months (around 08/24/2018). Follow-up and Disposition History Recorded Encounter Status:Closed by MISAEL BECKWITH MD on 02/21/18 CBC AND DIFFERENTIAL Collected: 02/15/2018 Status: F Source: [place] 7:47 AM [facility] REPOSITORY TYPE CODE TESTS RESULT OUT OF REFERENCE UNITS RANGE LAB WBC 3.70-11.00 k/uL WBC 7.00 LAB RBC 4.20-6.00 m/uL RBC 4.46 LAB HGB 13.0-17.0 g/dL Hemoglobin 13.2 LAB HCT 39.0-51.0 % Hematocrit 43.1 LAB MCV 80.0-100.0 fL MCV 96.6 LAB MCH 26.0-34.0 pG MCH 29.6 LAB MCHC 30.5-36.0 g/dL MCHC 30.6 LAB RDWCV 11.5-15.0 % RDW-CV 12.1 LAB PLTCT 150-400 k/uL Platelet Count 224 LAB MPV 9.0-12.7 fL MPV 9.3 LAB ANEUT % Neut% 60.6 LAB AANEUT 1.45-7.50 k/uL Abs Neut 4.25 LAB ALYMP % Lymph% 24.9 LAB AALYMP 1.00-4.00 k/uL Abs Lymph 1.74 LAB AMONO % Rapides% 10.9 LAB AAMONO <0.87 k/uL Abs Rapides 0.76 LAB AEOS % Eosin% 2.9 LAB AAEOS <0.46 k/uL Abs Eosin 0.20 LAB ABASO % Baso% 0.7 LAB AABASO <0.11 k/uL Abs Baso 0.05 LAB AUNRBC 0 /100 WBC NRBCs 0.0 LAB ABNRBC <0.01 k/uL Absolute nRBC <0.01 LAB DTYP DTYPE Auto Diff Performed By: #### CBCDIF, CMP, LIPB #### [facility] [address] [place] [id number] COMP METABOLIC PANEL Collected: 02/15/2018 Status: F Source: [place] 7:47 AM [facility] REPOSITORY TYPE CODE TESTS RESULT OUT OF REFERENCE UNITS RANGE LAB TP 6.3-8.0 g/dL Protein, Total 6.9 LAB ALB 3.9-4.9 g/dL Albumin 4.3 LAB CA 8.5-10.2 mg/dL Calcium, Total 9.8 LAB TBIL 0.2-1.3 mg/dL Bilirubin, Total 0.4 LAB ALKP 36-108 U/L Alkaline Phosphatase 76 LAB AST 14-40 U/L AST 23 LAB GLU 74-99 mg/dL Glucose High 102 Result Comment: The [place] Diabetes Association (ADA) provides guidance for cutoff values for fasting glucose and random glucose. The ADA defines fasting as no caloric intake for at least 8 hours. Fas ting plasma glucose results between 100 to 125 mg/dL indicate increased risk for diabetes (prediabetes). Fasting plasma glucose results greater than or equal to 126 mg/dL meet the criteria for diagnosis of diabetes. In the absence of unequivocal hyperglycemia, results should be confirmed by repeat testing. In a patient with classic symptoms of hyperglycemia or hyperglycemic crisis, random plasma glucose results greater than or equal to 200 mg/dL meet the criteria for diagnosis of diabetes. Reference: Standards of Medical Care in Diabetes 2016, [place] Diabetes Association. Diabetes Care. 2016.39(Suppl 1). LAB BUN 9-24 mg/dL BUN 13 LAB CRET 0.73-1.22 mg/dL Creatinine 0.75 LAB NA 136-144 mmol/L Sodium 136 LAB K 3.7-5.1 mmol/L Potassium 4.7 LAB CL 97-105 mmol/L Low Chloride 93 LAB CO2 22-30 mmol/L CO2 High 32 LAB AGAP 9-18 mmol/L Anion Gap 11 LAB ALT 10-54 U/L ALT 19 LAB GFRAA eGFR- Amer. >60 LAB GFRNAA . eGFR-All Other Races >60 Result Comment: eGFR (Estimated GFR) Units of measure: mL/min/1.73 meters squared eGFR is derived from the reexpressed MDRD Study equation using the following parameters: serum creatinine, age, gender and race. The creatinine assay has been calibrated to be traceable to IDMS. An eGFR <60 mL/min/1.73m2 for >3 months is consistent with chronic kidney disease. Refer to KDOQI guidelines for clinical interpretation. In patients with unstable renal function, e.g. those with acute kidney injury, the eGFR may not accurately reflect actual GFR. Performed By: #### CBCDIF, CMP, LIPB #### [facility] [address] [place], [place] [address] LIPID PANEL, BASIC Collected: 02/15/2018 Status: F Source: [place] 7:47 AM [facility] REPOSITORY TYPE CODE TESTS RESULT OUT OF REFERENCE UNITS RANGE LAB CHOL <200 mg/dL Cholesterol 165 Result Comment: <200 mg/dL, Desirable 200-239 mg/dL, Borderline high >239 mg/dL, High LAB TRIGLY <150 mg/dL Triglyceride 51 Result Comment: <150 mg/dL, Normal 150-199 mg/dL, Borderline high 200-499 mg/dL, High >499 mg/dL, Very high LAB HDL >39 mg/dL HDL-Cholesterol 67 Result Comment: 40-59 mg/dL, Acceptable >59 mg/dL, High: Negative risk factor for coronary heart disease <40 mg/dL, Low: Positive risk factor for coronary heart disease LAB LDL <100 mg/dL LDL-Cholesterol 88 Result Comment: <100 mg/dL, Optimal 100-129 mg/dL, Near optimal/above optimal 130-159 mg/dL, Borderline high 160-189 mg/dL, High >189 mg/dL, Very high Secondary prevention optimal LDL Cholesterol levels are recommended to be < 70 mg/dL LAB NONHDL <130 mg/dL Non HDL Cholesterol 98 Result Comment: <130 mg/dL, Optimal 130-159 mg/dL, Near optimal/above optimal 160-189 mg/dL, Borderline high 190-219 mg/dL, High >219 mg/dL, Very high Secondary prevention optimal non HDL Cholesterol levels are recommended to be < 100 mg/dL LAB FT hrs Fasting Time 11 LAB VLDL <30 mg/dL VLDL Cholesterol 10 LAB TCHDL <5.10 TC:HDL Ratio 2.46 LAB LDLHDL <2.54 LDL:HDL Ratio 1.31 Result Comment: Reference: 1. National Cholesterol Education Program ATP III Guideline At-A-Glance Quick Desk Reference: National Heart, Lung, and Blood [place]. National Institutes of Health. 2001: NIH Publication No. 01-3305. 2. An International Atherosclerosis Society position paper: global recommendations for the management of dyslipidemia: executive summary, Atherosclerosis. 2014: 232(2):410-413. Performed By: #### CBCDIF, CMP, LIPB #### [facility] [address] [place] [id number] CNOV Observed: 01/02/2018 Status: COMPLETED Source: [place] 12:55 PM [facility] [place] REPOSITORY Office Visit (PULMMN) BENJY DC ([id number]) 1935 M Date Time Provider Department 01/02/18 12:55 PM CAROLANN LI [facility] During your visit today, we recorded the following information about you: Temperature Pulse Respiration Blood pressure 98.6 degrees 84/minute 18/minute 127/68 Weight Height 69.9 kg 1.702 m Carolann Li MD 01/02/2018 5:58 PM Signed PULMONARY CLINIC PATIENT NAME: Benjy Hansonpkins PRIMARY CARE PHYSICIAN: Misael Beckwith MD Communication will be sent via US mail or shared electronic medical records S: FUP for COPD, chronic respiratory failure, lung cancer. Last visit 07/2017. No major issues since 07/2017. No exacerbations. No recent antibiotic or steroid use. Does not feel that pleural effusion re-accumulated. Using albuterol 3x/day per his routine. Doing a little more physical activity but gets tired easily. Using 4 lpm NC/ PAST MEDICAL HISTORY: PAST MEDICAL HISTORY Diagnosis Date - Acute on chronic diastolic congestive heart failure (HCC) 06/25/2017 - Aortic valve stenosis 06/25/2017 - AV block, Mobitz 1 06/25/2017 - Benign neoplasm of colon - BPH (benign prostatic hyperplasia) 07/08/2014 - Chronic airway obstruction, not elsewhere classified 02/09/2009 - Chronic bilateral thoracic back pain 10/27/2016 - Chronic respiratory failure with hypoxia (HCC) 06/25/2017 - Dysphagia, unspecified(787.20) - Early satiety - Elevated prostate specific antigen (PSA) 04/28/2005 - Enlargement of lymph nodes - GERD (gastroesophageal reflux disease) 04/04/2010 - Hernia, hiatal 04/04/2010 - Hypertension - Non-small cell lung cancer (NSCLC) (HCC) 10/26/2015 - Personal history of colonic polyps 08/08/2012 - Pulmonary hypertension 06/25/2017 - Status post stereotactic radiosurgery (SBRT right lung) 10/19/2015 PAST SURGICAL HISTORY: PAST SURGICAL HISTORY Procedure Laterality Date - APPENDECTOMY 1953 age 19 - BIOPSY LUNG PERC NEEDLE Right 07/2014 non diagnostic - BRONCHOSCOPY Right 09/30/2015 - COLONOSCOP W/ OR W/O BRSH SPEC 03/03/2009 Colonoscopy - COLONOSCOPY 02/02/2016 - COLONOSCOPY W/BIOPSY 08/08/2012 - COLONOSCOPY W/BX 01/30/05 - EGD W/O BRSH SPECIMEN W/BX 04/01/10 - EGD W/O OR W/BRUSH/WASH 04/23/14 EGD - EGD W/O OR W/BRUSH/WASH 10/07/15 EGD - PACEMAKER DUAL CHAMBER TIER 0 Left 06/11/2017 - PAST SURGICAL HISTORY OF 2001 removal left neck lymph node - REMV CATARACT EXTRACAP,INSERT LENS right 2001 Cataract Removal FAMILY HISTORY: FAMILY HISTORY Problem Relation Age of Onset - Heart Mother - Diabetes Sister - Heart Brother CABG at age 76, age 78. SOCIAL HISTORY: Social History Substance Use Topics - Smoking status: Former Smoker Years: 50.00 Types: Cigars Start date: [birth year]22/1954 Quit date: 08/06/2005 - Smokeless tobacco: Never Used Comment: Started w/ cigarettes. Cigars last 40 years. TO - Alcohol use No MEDICATIONS: Current Outpatient Prescriptions on File Prior to Visit: umeclidinium-vilanterol (ANORO ELLIPTA) 62.5-25 mcg/actuation inhaler Inhale 1 Inhalation as instructed once daily. furosemide (LASIX) 40 mg tablet Take 1 tablet by mouth once daily. amLODIPine (NORVASC) 5 mg tablet Take 1 tablet by mouth once daily. losartan (COZAAR) 50 mg tablet Take 0.5 tablets by mouth once daily. albuterol HFA (PROAIR HFA) 90 mcg/actuation inhaler Inhale 2 Puffs as instructed every 4 hours as needed. polyethylene glycol 3350 (MIRALAX) 17 gram/dose powder Use one scoop daily as needed. CHOLECALCIFEROL (VITAMIN D3) 1,000 UNIT CAP Take one(1) tablet daily. No current facility-administered medications on file prior to visit. ALLERGIES: ALLERGIES Allergen Reactions - Amoxicillin Rash - Bactrim [Sulfametho* Rash - Codeine Rash - Sulfur Rash, Hives - Zpak [Azithromycin] Rash PHYSICAL EXAM: BP 127/68 Pulse 84 Temp (Src) 98.6 (Temporal Artery) Resp 18 Ht 5' 7 (1.70m) Wt 154 lb (69.9kg) SpO2 95[4L]% BMI 24.11 kg/(m2). GENERAL: Chronically ill looking, came on wheelchair SKIN: . No rashes or lesions. OROPHARYNX: Oropharynx normal. No erythema. No thrush. LYMPH: No neck adenopathy LUNGS: Decreased BS bilateral. No wheezing. No ronchi. No rales CARDIAC: normal S1 and S2 ABDOMEN: Abdomen soft. EXTREMETIES: Extremities normal. No deformities. No LE edema PSYCH: Alert, oriented X 3 PULSES: 2+ radial DATA: CT chest 01/02/2018 reviewed ASSESSMENT AND PLAN: 82 yo M Former smoker GERD Chronic diastolic CHF Sp PPM 06/2017 ?? COPD, severe airflow obstruction (FEV1 49% and DLCO 48% predicted). Symptoms in good control. No recent exacerbations. Last exacerbation was in 05/2017. Started on Anoro daily - refill given c/w albuterol neb/inh as needed - refill given c/w acapela as needed He will try to increase his physical activity level Chronic hypoxic resp failure. Suppl O2 4 lpm NC on exertion. Given new script for portable concentrator ?? Lung cancer of the RLL T2N0M0, sp SBRT completed 10/19/2015. NM PET scan 06/26/2017 resolution of RLL mass. No signs of recurrent except hypermetabolic right parotid lesion that was present in 2014. CT chest 01/02/2018 reviewed. No evidence of recurrence. Next scan in 6 months ?? Right pleural effusion. Suspect is reactive from RT pneumonitis/pleuritis vs parapneumonic vs malignant. Cytology negative and cultures NGTD. No re-accumulation on CT chest 01/02/2018 ? Right parotid hypermetabolic lesion seen on PET CT 2014 and 2016. 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 Sent to ENT for evaluation who sent for possible US guided biopsy but felt to be too small for biopsy. He will FUP with them in 03/2018 Immunization. Flu shot 05/2017 ? RTC [address] chest I reviewed the available chest images independently. Carolann Li MD Pulmonary and Critical Care Medicine DATE: January 02, 2018 TIME: 12:31 PM Referring Provider: CAROLANN LI [[id number]] Allergies As of Date: 01/02/2018 Noted Allergy Reaction AMOXICILLIN 06/08/2014 2 - Rash BACTRIM (SULFAMETHOXAZOLE-TRIMETH*05/25/2017 2 - Rash CODEINE 04/28/2005 2 - Rash SULFUR 10/27/2016 2 - Rash 4 - Hives ZPAK (AZITHROMYCIN) 12/07/2011 2 - Rash Date Reviewed: 01/02/2018 Reviewed by: Yeimy Higuera Ma - Fully Assessed Reason for Visit: Follow Up [171] Primary Visit Diagnosis:Chronic respiratory failure with hypoxia (HCC) [J96.11] Other Visit Diagnoses:COPD, severe (HCC) [J44.9] Cancer of trachea, bronchus, 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, 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] Chronic obstructive pulmonary disease with acute exacerbation (HCC) [J44.1] Lung nodules [R91.8] Order(s):umeclidinium-vilanterol (ANORO ELLIPTA) 62.5-25 mcg/actuation inhalerInhale 1 Inhalation as instructed once daily.Disp: 1 InhalationRfl: 11 OXYGEN FOR HOME USE [[id number]] Order #: [id number] albuterol HFA (PROAIR HFA) 90 mcg/actuation inhalerInhale 2 Puffs as instructed every 4 hours as needed.Disp: 1 InhalerRfl: 11 CT CHEST WO IVCON [[id number]] Order #: [id number] FUTURE Prescriptions as of 01/02/2018 Sig: UMECLIDINIUM 62.5 MCG-VILANTE* Inhale 1 Inhalation as instru* ALBUTEROL SULFATE HFA 90 MCG/* Inhale 2 Puffs as instructed * FUROSEMIDE 40 MG TABLET Take 1 tablet by mouth once d* AMLODIPINE 5 MG TABLET Take 1 tablet by mouth once d* LOSARTAN 50 MG TABLET Take 0.5 tablets by mouth onc* POLYETHYLENE GLYCOL 3350 17 G* Use one scoop daily as needed. * CHOLECALCIFEROL (VITAMIN D3) * Take one(1) tablet daily. Problem List As Of Date 01/02/2018 Noted Resolved Other emphysema (HCC) [J43.8] 10/28/2016 Elevated prostate specific antigen (PSA) [R97.2*INVALID FOR*10/28/2016 Chronic obstructive pulmonary disease with acut*INVALID FOR* Dysphagia [R13.10] INVALID FOR*09/25/2017 Early satiety [R68.81] INVALID FOR*10/28/2016 GERD (gastroesophageal reflux disease) [K21.9] INVALID FOR*09/25/2017 Hernia, hiatal [K44.9] INVALID FOR*10/28/2016 Medicare annual wellness visit, subsequent [Z00*INVALID FOR*10/28/2016 Personal history of colonic polyps [Z86.010] INVALID FOR*10/28/2016 HTN (hypertension) [I10] INVALID FOR*10/26/2015 Hyperlipidemia [E78.5] INVALID FOR* Lung nodule [R91.1] INVALID FOR*10/28/2016 BPH (benign prostatic hyperplasia) [N40.0] INVALID FOR* Elevated PSA [R97.20] INVALID FOR*10/28/2016 Dysphagia [R13.10] INVALID FOR*10/07/2015 Essential hypertension [I10] INVALID FOR* Non-small cell lung cancer (NSCLC) (HCC) [C34.9*INVALID FOR* Panlobular emphysema (HCC) [J43.1] INVALID FOR*10/28/2016 Chronic bilateral thoracic back pain [M54.6, G8*INVALID FOR*02/07/2017 Constipation [K59.00] INVALID FOR* Status post stereotactic radiosurgery (SBRT rig*INVALID FOR* Acute on chronic diastolic congestive heart pete*INVALID FOR* Chronic respiratory failure with hypoxia (HCC) *INVALID FOR* Aortic valve stenosis [I35.0] INVALID FOR* Pacemaker [Z95.0] INVALID FOR* AV block, Mobitz 1 [I44.1] INVALID FOR* Pulmonary hypertension [I27.20] INVALID FOR* Prescriptions ordered this encounter Disp Refills Start End UMECLIDINIUM 62.5 MCG-VILANTEROL 25 * 1 In* 11 01/02/2018 Route: INHALATION Sig: Inhale 1 Inhalation as instructed once daily. ALBUTEROL SULFATE HFA 90 MCG/ACTUATI* 1 In* 11 01/02/2018 Route: INHALATION Sig: Inhale 2 Puffs as instructed every 4 hours as needed. Medications Discontinued During This Encounter umeclidinium-vilanterol (ANORO ELLIP* 1 In* 5 07/20/2017 01/02/2018 Class: Print RX Route: INHALATION Sig: Inhale 1 Inhalation as instructed once daily. Disc: Reason for discontinue is not on file. albuterol HFA (PROAIR HFA) 90 mcg/ac* 1 In* 11 02/07/2017 01/02/2018 Route: INHALATION Sig: Inhale 2 Puffs as instructed every 4 hours as needed. Disc: Reason for discontinue is not on file. Disposition: Return in about 6 months (around 07/05/2018). Follow-up and Disposition History Recorded Encounter Status:Closed by CAROLANN LI MD on 01/02/18 PROGRESS Observed: 01/02/2018 Status: COMPLETED Source: [place] 12:31 PM [facility] REPOSITORY O ID: [id number] Author: Carolann Li Service: (none) Author Type: Physician Type: Progress Notes Filed: 01/02/2018 5:58 PM Note Text: PULMONARY CLINIC PATIENT NAME: Benjy Dc PRIMARY CARE PHYSICIAN: Misael Beckwith MD Communication will be sent via US mail or shared electronic medical records S: FUP for COPD, chronic respiratory failure, lung cancer. Last visit 07/2017. No major issues since 07/2017. No exacerbations. No recent antibiotic or steroid use. Does not feel that pleural effusion re-accumulated. Using albuterol 3x/day per his routine. Doing a little more physical activity but gets tired easily. Using 4 lpm NC/ PAST MEDICAL HISTORY: PAST MEDICAL HISTORY Diagnosis Date - Acute on chronic diastolic congestive heart failure (HCC) 06/25/2017 - Aortic valve stenosis 06/25/2017 - AV block, Mobitz 1 06/25/2017 - Benign neoplasm of colon - BPH (benign prostatic hyperplasia) 07/08/2014 - Chronic airway obstruction, not elsewhere classified 02/09/2009 - Chronic bilateral thoracic back pain 10/27/2016 - Chronic respiratory failure with hypoxia (HCC) 06/25/2017 - Dysphagia, unspecified(787.20) - Early satiety - Elevated prostate specific antigen (PSA) 04/28/2005 - Enlargement of lymph nodes - GERD (gastroesophageal reflux disease) 04/04/2010 - Hernia, hiatal 04/04/2010 - Hypertension - Non-small cell lung cancer (NSCLC) (HCC) 10/26/2015 - Personal history of colonic polyps 08/08/2012 - Pulmonary hypertension 06/25/2017 - Status post stereotactic radiosurgery (SBRT right lung) 10/19/2015 PAST SURGICAL HISTORY: PAST SURGICAL HISTORY Procedure Laterality Date - APPENDECTOMY 1953 age 19 - BIOPSY LUNG PERC NEEDLE Right 07/2014 non diagnostic - BRONCHOSCOPY Right 09/30/2015 - COLONOSCOP W/ OR W/O BRSH SPEC 03/03/2009 Colonoscopy - COLONOSCOPY 02/02/2016 - COLONOSCOPY W/BIOPSY 08/08/2012 - COLONOSCOPY W/BX 01/30/05 - EGD W/O BRSH SPECIMEN W/BX 04/01/10 - EGD W/O OR W/BRUSH/WASH 04/23/14 EGD - EGD W/O OR W/BRUSH/WASH 10/07/15 EGD - PACEMAKER DUAL CHAMBER TIER 0 Left 06/11/2017 - PAST SURGICAL HISTORY OF 2001 removal left neck lymph node - REMV CATARACT EXTRACAP,INSERT LENS right 2001 Cataract Removal FAMILY HISTORY: FAMILY HISTORY Problem Relation Age of Onset - Heart Mother - Diabetes Sister - Heart Brother CABG at age 76, age 78. SOCIAL HISTORY: Social History Substance Use Topics - Smoking status: Former Smoker Years: 50.00 Types: Cigars Start date: 10/22/1955 Quit date: 08/06/2005 - Smokeless tobacco: Never Used Comment: Started w/ cigarettes. Cigars last 40 years. TO - Alcohol use No MEDICATIONS: Current Outpatient Prescriptions on File Prior to Visit: umeclidinium-vilanterol (ANORO ELLIPTA) 62.5-25 mcg/actuation inhaler Inhale 1 Inhalation as instructed once daily. furosemide (LASIX) 40 mg tablet Take 1 tablet by mouth once daily. amLODIPine (NORVASC) 5 mg tablet Take 1 tablet by mouth once daily. losartan (COZAAR) 50 mg tablet Take 0.5 tablets by mouth once daily. albuterol HFA (PROAIR HFA) 90 mcg/actuation inhaler Inhale 2 Puffs as instructed every 4 hours as needed. polyethylene glycol 3350 (MIRALAX) 17 gram/dose powder Use one scoop daily as needed. CHOLECALCIFEROL (VITAMIN D3) 1,000 UNIT CAP Take one(1) tablet daily. No current facility-administered medications on file prior to visit. ALLERGIES: ALLERGIES Allergen Reactions - Amoxicillin Rash - Bactrim [Sulfametho* Rash - Codeine Rash - Sulfur Rash, Hives - Zpak [Azithromycin] Rash PHYSICAL EXAM: BP 127/68 Pulse 84 Temp (Src) 98.6 (Temporal Artery) Resp 18 Ht 5' 7 (1.70m) Wt 154 lb (69.9kg) SpO2 95[4L]% BMI 24.11 kg/(m2). GENERAL: Chronically ill looking, came on wheelchair SKIN: . No rashes or lesions. OROPHARYNX: Oropharynx normal. No erythema. No thrush. LYMPH: No neck adenopathy LUNGS: Decreased BS bilateral. No wheezing. No ronchi. No rales CARDIAC: normal S1 and S2 ABDOMEN: Abdomen soft. EXTREMETIES: Extremities normal. No deformities. No LE edema PSYCH: Alert, oriented X 3 PULSES: 2+ radial DATA: CT chest 01/02/2018 reviewed ASSESSMENT AND PLAN: 82 yo M Former smoker GERD Chronic diastolic CHF Sp PPM 06/2017 ?? COPD, severe airflow obstruction (FEV1 49% and DLCO 48% predicted). Symptoms in good control. No recent exacerbations. Last exacerbation was in 05/2017. Started on Anoro daily - refill given c/w albuterol neb/inh as needed - refill given c/w acapela as needed He will try to increase his physical activity level Chronic hypoxic resp failure. Suppl O2 4 lpm NC on exertion. Given new script for portable concentrator ?? Lung cancer of the RLL T2N0M0, sp SBRT completed 10/19/2015. NM PET scan 06/26/2017 resolution of RLL mass. No signs of recurrent except hypermetabolic right parotid lesion that was present in 2014. CT chest 01/02/2018 reviewed. No evidence of recurrence. Next scan in 6 months ?? Right pleural effusion. Suspect is reactive from RT pneumonitis/pleuritis vs parapneumonic vs malignant. Cytology negative and cultures NGTD. No re-accumulation on CT chest 01/02/2018 ? Right parotid hypermetabolic lesion seen on PET CT 2014 and 2016. 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 Sent to ENT for evaluation who sent for possible US guided biopsy but felt to be too small for biopsy. He will FUP with them in 03/2018 Immunization. Flu shot 05/2017 ? RTC [address] chest I reviewed the available chest images independently. Carolann Li MD Pulmonary and Critical Care Medicine DATE: January 02, 2018 TIME: 12:[address] CHEST WO IVCON Observed: 01/02/2018 Status: F Source: [place] 12:15 PM [facility] [place] REPOSITORY * * *Final Report* * * DATE OF EXAM: Jan 02 2018 12:15PM [facility] [place] 0541 - CT CHEST WO IVCON / PROCEDURE REASON: multiple diagnoses * * * * Physician Interpretation * * * * EXAMINATION: CHEST CT WITHOUT CONTRAST CLINICAL HISTORY: 82-year-old male former smoker with history of COPD, CAD and stage IB non-small cell carcinoma of the RLL T2N0M0, status post SBRT completed 10/19/2015. PET scan 06/26/2017 describes resolution of RLL mass. Technique: Spiral CT acquisition of the chest from the thoracic inlet to the upper abdomen without contrast. MQ: [id number] CT Dose-Length Product: 181 mGy*cm CT Dose Reduction Employed: Automated exposure control (AEC) Comparison: Multiple prior chest CTs including most recent dated 12/23/2016; PET/CT 06/26/2017 RESULT: Limitations: Mild respiratory motion through the lung bases degrades image quality. Lines, tubes, and devices: Left-sided dual chamber pacemaker leads terminate over the expected positions of the right atrium and right ventricle. Lung parenchyma and pleura: Small loculated right pleural effusion with associated pleural thickening as seen on the comparison PET/CT of 06/26/2017 is without significant change in size. 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 As the treated nodule is now confluent with the fibrotic changes, exact nodule measurements cannot be given. No definite evidence of recurrence. Stable 5 mm nodule within the anterior left lower lobe (image 159) from at least comparison of 09/29/2015. No new or enlarging pulmonary nodules. Scattered calcified granulomata. There is severe upper lobe predominant centrilobular and paraseptal emphysema. Biapical pleural-parenchymal thickening/scarring with dystrophic calcification, without significant change. Trachea and central bronchi are patent, with diffuse bronchial wall thickening, consistent with chronic airways inflammatory change. No endobronchial lesion identified. No pneumothorax. Thoracic inlet, heart, and mediastinum: The thyroid is without focal abnormality. No lymphadenopathy in the axillary regions. No supraclavicular lymphadenopathy noted in the [id number]. Granulomatous calcification seen within the mediastinal and right hilar lymph nodes. There are scattered subcentimeter in short axis and borderline enlarged mediastinal lymph nodes, some of which are mildly increased in size from the comparison; for example: A 9 mm in short axis prevascular lymph node (50) previously measured 7 mm; a 1 cm left paratracheal lymph node (image 79) previously measured 7 mm, a 10 mm subcarinal lymph node (image 103) previously measured 7 mm. Although these may be reactive in nature, attention on follow-up imaging suggested. Moderate atherosclerotic calcifications are present within the thoracic aorta, including the aortic root, and within the proximal arch branch vessels. The thoracic aorta and main pulmonary artery are normal in caliber. Mild to moderate calcifications noted within the aortic valve leaflets. Mitral annular calcification is noted. The cardiac chambers are normal in size. Three-vessel coronary artery atherosclerotic calcifications are noted, although the study is not optimized for coronary assessment. No pericardial effusion or thickening. Esophagus is nondilated. Bones and soft tissues: No destructive bone lesion. The bones are diffusely osteopenic. Multilevel vertebral body height loss seen within the thoracic spine, with height loss at the T6 and T9, T10, T12 and L1 vertebral body levels without significant change from the 12/15/2016 CT. Degenerative disc and endplate changes with osteophyte formation are present within the thoracic spine. Soft tissues of the chest wall are unremarkable.. Upper abdomen: No acute abnormality in the imaged upper abdomen. Moderate atherosclerotic calcification present within the upper abdominal aorta and branch vessels. Scattered splenic granulomata. QB_N IMPRESSION: 1. Small loculated right pleural effusion with associated pleural thickening, without significant change. Consolidative opacity within the right lower lobe consistent with radiation fibrosis. No definite evidence of recurrence. 2. Stable 5 mm nodule within the anterior left lower lobe. No new or enlarging pulmonary nodules. 3. Scattered subcentimeter in short axis and borderline enlarged mediastinal lymph nodes, some of which are mildly increased from the comparison. No FDG avid lymph nodes reported on previous PET/CT 06/26/2017. Although these lymph nodes may be reactive, attention on follow-up imaging (per protocol) suggested. 4. Three-vessel coronary artery calcifications. 5. Smoking-related changes with severe upper lobe predominant centrilobular and paraseptal emphysema and diffuse bronchial wall thickening. Mechanical Detailer: PSCB Transcribe Date/Time: Jan 03 2018 7:57A Dictated by : BELLE MUNGUIA MD This examination was interpreted and the report reviewed and electronically signed by: BELLE MUNGUIA MD on Jan 03 2018 8:49AM EST [id number] CNCO Observed: 01/02/2018 Status: COMPLETED Source: [place] 12:00 AM [facility] REPOSITORY Letter Text Carolann Li MD, [facility] Pulmonary and Critical Care Medicine [facility] [place] [address] [place] [address]/[place] [address] Appointment [phone] Dr. Oh [facility] January 02, 2018 Benjy Dc [address] Oh, I had the pleasure of seeing your patient, Benjy Dc, for consultation in the [facility] [place] [facility] the [facility]. Enclosed you will find a copy of my office visit summary and test results. Thank you for referring your patient to the [facility]. Please feel free to call with any questions or concerns. Sincerely, Carolann Li MD HC/cl Enclosures PACEMAKER CHECK Observed: 12/31/2017 Status: F Source: [place] 2:07 PM [facility] [facility] [address] [place] [address] Pacemaker Check Date of Service: 12/13/17 1551 MR#: [id number] Acct: [id number] Name: BENJY DC Rep #: [id number] : 1935 From: Briana Caruso Age/Sex: 82/M Location: [facility] [place] Status: Signed Comments Summary Comments: Remote Dual Chamber Pacemaker Evaluation: See attached scanned Latitude report. Remote interrogation shows 1 MS episodes, <1% total time and no VT episodes since 07/19/17. Last ATR episode 08/15/17 for approx 2 secs. presenting rhythm shows P synchronous paced @ 62 ppm. 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 Battery longevity approx 8.5 yrs. Lead impedances, sensing and auto pace/sense thresholds remain stable. Normal remote PPM function. Pt notified remote transmission received and next f/u appt scheduled for in 3 mos. Device Device Date Interviewed: 12/13/17 Follow-up Location: remote Interview Reason: scheduled follow up Senior C Developer: [email or web address] Name: Elba MELY HUERTA IS-1 Model: L111 Serial #: [id number] Implant Date: 06/11/17 Year(s): 0 Implant Physician: Dr. Kendall Richardson Patient Characteristics AV/Node Indication: Second degree AV block Ejection fraction %: 65 to 70 (05/09/2017) By: Echo Underlying rhythm: Mobitz 2 second degree AV block Pacemaker Dependent: Yes (No intrinsic R waves VVI @ 40 ppm) Device Characteristics Device: Dual Chamber Type: Pacemaker Remote Follow-Up: Latitude Leads Lead #1 Senior C Developer Lead 1: [employer] Model Lead 1: 7740/45 Serial# Lead 1: [id number] Date Implanted Lead 1: 06/11/17 Position Lead 1: RA Lead #2 Senior C Developer Lead 2: [employer] Model Lead 2: 7741/52 MRI IS-1 Serial# Lead 2: [id number] Date Implanted Lead 2: 06/11/17 Position Lead 2: RV Diagnostics Pacing % RA Pacin % RV Pacin Mode Switching Total # Episodes: 1 % Mode switched: 1 Arrhythmias Non-Sust Episodes: 0 Measurements Battery Magnet Rate (bmp): 100 Battery Status: CHAVO Predicted Remaining Longevity (months or years): 8.5 years RA Measurements Signal Amplitude (mV): 5.8 Impedance (Ohms): 586 Threshold Voltage: 0.5 @ PW(ms): 0.4 RV Measurements Impedance (Ohms): 760 Threshold Voltage: 0.6 @ PW(ms): 0.4 Vicente Settings Pacemaker Mode: DDD Base Rate: 60 bpm Max Track Rate: 130 bpm Maximum AV Delay: 180 msec Bradycardia Output and Sensitivity Settings Right Atrium: 0.4 msec, 2.0 volts, 0.75 mV sensitivity. Right Ventricle: 0.4 msec, 1.1 volts. Billing Codes PM Device Codes: PM Dev Interrogate (Remot Assessment AND Plan Problems 1. Non-rheumatic tricuspid valve insufficiency I36.1 2. Diastolic dysfunction I51.9 3. Acute on chronic diastolic (congestive) heart failure I50.33 4. Mobitz type 2 second degree AV block I44.1 12/31/17 1052 <Electronically signed by Briana Caruso > Date Briana Caruso 12/31/17 1407<Electronically signed by Jason Alan MD> Cosigner Signature: Date (if applicable) Jason Alan MD CC: PROGRESS Observed: 09/25/2017 Status: COMPLETED Source: [place] 11:59 AM [facility] [place] REPOSITORY HNO ID: [id number] Author: Misael Beckwith Service: (none) Author Type: Physician Type: Progress Notes Filed: 09/25/2017 12:04 PM Note Text: This note was created using NoteWriter. Subjective Benjy Dc is a 81 year old male here for follow up. He was doing reasonably well, and listed conditions were stable. His medications were reviewed. [facility] locally and with Dr. Li for pulmonary. ACTIVE PROBLEM LIST Chronic Obstructive Pulmonary Disease With Acute Exacerbation (Hcc) Hyperlipidemia Bph (Benign Prostatic Hyperplasia) Essential Hypertension Non-Small Cell Lung Cancer (Nsclc) (Hcc) Constipation Status post stereotactic radiosurgery (SBRT right lung) Acute On Chronic Diastolic Congestive Heart Failure (Hcc) Chronic Respiratory Failure With Hypoxia (Hcc) Aortic Valve Stenosis Pacemaker Av Block, Mobitz 1 Pulmonary Hypertension Current Outpatient Prescriptions: umeclidinium-vilanterol (ANORO ELLIPTA) 62.5-25 mcg/actuation inhaler Inhale 1 Inhalation as instructed once daily. furosemide (LASIX) 40 mg tablet Take 1 tablet by mouth once daily. amLODIPine (NORVASC) 5 mg tablet Take 1 tablet by mouth once daily. losartan (COZAAR) 50 mg tablet Take 0.5 tablets by mouth once daily. albuterol HFA (PROAIR HFA) 90 mcg/actuation inhaler Inhale 2 Puffs as instructed every 4 hours as needed. polyethylene glycol 3350 (MIRALAX) 17 gram/dose powder Use one scoop daily as needed. CHOLECALCIFEROL (VITAMIN D3) 1,000 UNIT CAP Take one(1) tablet daily. No current facility-administered medications for this visit. Review of Systems Constitutional: Negative. Respiratory: Positive for cough, shortness of breath and wheezing. Cardiovascular: Positive for leg swelling. Negative for chest pain and palpitations. Gastrointestinal: Negative. Genitourinary: Negative. Musculoskeletal: Negative. Objective BP 124/56 (BP Site: Right Arm, BP Position: Sitting, BP Cuff Size: Regular Adult) Pulse 76 Temp 36.7 ?C (98.1 ?F) (Left Tympanic) Resp 16 Wt 68.9 kg (152 lb) BMI 23.81 kg/m2 Physical Exam Constitutional: No distress. Neck: No JVD present. Cardiovascular: Regular rhythm, S1 normal and S2 normal. Exam reveals distant heart sounds. Murmur heard. Systolic murmur is present with a grade of 1/6 LLSB and apex. Pulmonary/Chest: No respiratory distress. He has wheezes. He has no rales. On O2 via NC. Abdominal: Soft. Musculoskeletal: He exhibits edema. Trace edema. Neurological: He is alert. ASSESSMENT/PLAN: 1. Chronic obstructive pulmonary disease with acute exacerbation (HCC) - ICD9: 491.21, ICD10: J44.1 (primary diagnosis) Stable. 2. Chronic respiratory failure with hypoxia (HCC) - ICD9: 518.83, 799.02, ICD10: J96.11 Stable. - CBC + DIFF 3. Acute on chronic diastolic congestive heart failure (HCC) - ICD9: 428.33, 428.0, ICD10: I50.33 Stable. - COMP METABOLIC PANEL 4. Aortic valve stenosis, etiology of cardiac valve disease unspecified - ICD9: 424.1, ICD10: I35.0 Stable. 5. Essential hypertension - ICD9: 401.9, ICD10: I10 - good control - LIPID PANEL BASIC Misael Beckwith MD OFFICE VISIT REPORT Observed: 09/22/2017 Status: F Source: [place] 9:56 AM [facility] [place] [address] OFFICE VISIT Date of Service: 09/10/17 MR#: [id number] Acct: [id number] Patient: BENJY DC Rep #: [id number] : 1935 Provider: Briana Caruso Age/Sex: 81/M Location: [facility] [place] Status: Signed Comments Summary Comments: Remote Dual Chamber Pacemaker Evaluation: Remote interrogation shows 1 MS episode, <1% total time and no VHR episodes since 07/19/17. Presenting rhythm shows P synchronous paced @ 64 ppm. EU=426%. Battery longevity approx 8.5 yrs. Lead impedances, atrial sensing and auto A/V pace/sense thresholds remain stable. Normal remote PPM function. Pt notified remote transmission received and next f/u appt scheduled for in 3 mos. Device Device Date Interviewed: 09/10/17 Follow-up Location: remote Interview Reason: scheduled follow up Senior C Developer: [email or web address] Name: Elba BOONE DR [email or web address] Model: L111 Serial #: [id number] Implant Date: 06/11/17 Year(s): 0 Implant Physician: Dr. Kendall Richardson Patient Characteristics AV/Node Indication: Second degree AV block (Mobitz l and ll) Ejection fraction %: 65 to 70 (05/09/2017) By: Echo Underlying rhythm: Mobitz 2 second degree AV block Pacemaker Dependent: Yes (No intrinsic R waves VVI @ 40 ppm) Device Characteristics Device: Dual Chamber Type: Pacemaker Remote Follow-Up: Latitude Leads Lead #1 Senior C Developer Lead 1: [employer] Model Lead 1: 7740/45 Serial# Lead 1: [id number] Date Implanted Lead 1: 06/11/17 Position Lead 1: RA Lead #2 Senior C Developer Lead 2: [employer] Model Lead 2: 7741/52 MRI IS-1 Serial# Lead 2: [id number] Date Implanted Lead 2: 06/11/17 Position Lead 2: RV Diagnostics Pacing % RA Pacin % RV Pacin Mode Switching Total # Episodes: 1 % Mode switched: 0.1 Arrhythmias Non-Sust Episodes: 0 Measurements Battery Magnet Rate (bmp): 100 Battery Status: CHAVO Predicted Remaining Longevity (months or years): 8.5 years RA Measurements Signal Amplitude (mV): 9.2 Impedance (Ohms): 589 Threshold Voltage: 0.4 @ PW(ms): 0.4 RV Measurements Impedance (Ohms): 769 Threshold Voltage: 0.5 @ PW(ms): 0.4 Vicente Settings Pacemaker Mode: DDD Base Rate: 60 bpm Max Track Rate: 130 bpm Maximum AV Delay: 180 msec Billing Codes PM Device Codes: PM Dev Interrogate (Remot Assessment AND Plan Problems 1. Mobitz type 2 second degree AV block I44.1 2. 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 09/22/17 0850 <Electronically signed by Briana Caruso > Date Briana Caruso 09/22/17 0956<Electronically signed by Jason Alan MD> Cosigner Signature: Date (if applicable) Jason Alan MD CC: PROGRESS Observed: 09/04/2017 Status: COMPLETED Source: [place] 3:48 PM [facility] REPOSIT[facility] O ID: [id number] Author: Yesy Grady Service: (none) Author Type: (none) Type: Progress Notes Filed: 09/04/2017 3:49 PM Note Text: Radiology Service Progress Note PATIENT NAME: Benjy Dc DATE OF SERVICE: September 04, 2017 TIME: 3:48 PM PATIENT IDENTITY VERIFICATION COMPLETED USING TWO (2) METHODS: Patient confirmed name verbally and Date of . PATIENT GENDER DATA: Male PATIENT RELEVANT IMPLANT DATA REVIEWED: Not Applicable CONTRAST INDUCED NEPHROPATHY RISK FACTORS: Patient age > 60 years CREATININE: Creatinine Date Value Ref Range Status 09/03/2017 0.64 (L) 0.73 - 1.22 mg/dL Final 10/25/2016 0.73 0.73 - 1.22 mg/dL Final 09/21/2015 0.84 0.70 - 1.40 mg/dL Final eGFR-All Other Races Date Value Ref Range Status 09/03/2017 >60 . Final Comment: eGFR (Estimated GFR) Units of measure: mL/min/1.73 meters squared eGFR is derived from the reexpressed MDRD Study equation using the following parameters: serum creatinine, age, gender and race. The creatinine assay has been calibrated to be traceable to IDMS. An eGFR <60 mL/min/1.73m2 for >3 months is consistent with chronic kidney disease. Refer to KDOQI guidelines for clinical interpretation. In patients with unstable renal function, e.g. those with acute kidney injury, the eGFR may not accurately reflect actual GFR. eGFR- Date Value Ref Range Status 09/03/2017 >60 Final P.O.C.T. RESULTS: POC done: Yes, See Lab Tab September 04, 2017 RADIOLOGIST NOTIFIED?: No ALLERGIES: Reviewed and unchanged CONTRAST ALLERGY: NO. PERIPHERAL IV ACCESS: Ambulatory: IV type: A peripheral IV was started in the Left antecubital site with a Angio cath: 22 gauge., Site assessment: Clean,Dry and Intact, Site disposition Discontinued RADIOLOGY DEPARTMENT: CT; Exam(s) Completed: Neck SIGNED BY: Yesy Francisco Ct September 04, 2017 3:[address] NECK SOFT TISSUE Observed: 09/04/2017 Status: F Source: [place] Nimesh LEAL 3:43 PM [facility] [place] REPOSITORY * * *Final Report* * * DATE OF EXAM: Sep 04 2017 3:43PM [facility] 0013 - CT NECK SOFT TISSUE W IVCON / PROCEDURE REASON: Disease of salivary gland, unspecified * * * * Physician Interpretation * * * * CT OF THE NECK WITH IV CONTRAST HISTORY: Disease of salivary gland, unspecified Hypermetabolic lesion of the right parotid gland noted on a PET CT. History of lung carcinoma. COMPARISON: PET/CT 06/26/2017 and 06/17/2014 TECHNIQUE: A series of contiguous helical scans were performed from the skull base to the aortic arch following bolus injection of nonionic contrast : Contrast: Omnipaque 300. Contrast Dose: 100 cc Route of Administration: IV CT Radiation dose: Integrated Dose-length product (DLP) for this visit = 649 mGy*cm. CT Dose Reduction Employed: Automated exposure control (AEC) RESULT: There is an enhancing well marginated ovoid soft tissue nodule measuring 8 mm in the deep aspect of the right parotid tail, closely abutting the deep margin of the retromandibular vein. This corresponds to hypermetabolic lesion seen on serial prior PET CTs dating back to 06/17/2014 when compared to the attenuation correction CT from 06/17/2014, the size is stable to minimally increased. Left parotid gland and bilateral submandibular glands appear normal. Nasal cavity and oral cavity are unremarkable within limitations of artifact from dental amalgam. The pharyngeal mucosal space is normal in appearance. The vallecula and epiglottis are within normal limits and the pre-epiglottic fat is maintained. Thyroid gland enhances homogeneously. Carotid arteries and jugular veins are patent bilaterally. Remainder of fascial spaces of the neck and contents are normal. There is no lymphadenopathy by size criteria. Evaluation of the included intracranial contents is negative for intracranial mass effect or hydrocephalus. Bilateral lens replacement. Orbital contents otherwise unremarkable. Paranasal sinuses are clear. Mastoid air cells and middle ear cavities are clear. Marked centrilobular emphysema in the lung apices with scarring and calcifications in the right lung apex. AICD/pacemaker in the left chest wall with partially imaged leads extending into the SVC. The patient is edentulous. Visualized osseous structures appear intact otherwise. No evidence of a discrete osteolytic or osteoblastic process. IMPRESSION: Hypermetabolic 8 mm nodule in the deep aspect of the right parotid tail is stable to minimally increased in size when compared to 06/17/2014. Favor low-grade/indolent primary salivary neoplasm, for example Warthin's tumors given age, history of smoking, stability and metabolic activity on PET. Mechanical Detailer: PSCB Transcribe Date/Time: Sep 04 2017 4:40P Dictated by : JESSICA ARTHUR MD This examination was interpreted and the report reviewed and electronically signed by: JESSICA ARTHUR MD on Sep 04 2017 4:50PM EST [id number] CARDIOLOGY VISIT Observed: 09/03/2017 Status: F Source: [place] [facility] 4:13 PM [facility] [place] [facility] [address] [place] [address] OFFICE VISIT Date of Service: 08/29/17 MR#: [id number] Acct: [id number] Name: BENJY DC Rep #: [id number] : 1935 Provider: EUGENE Garrison Age/Sex: 81/M Location: [facility] [place] Status: Signed HPI 6 wk FU: Details: BENJY DC, is a 81 M who presents to the office today for a cardiovascular outpatient follow-up. 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 Pt. denies chest, arm, jaw, or neck discomfort. His exercise tolerance is stable though minimal. Pt. denies symptoms of CHF, palpitations, lightheadedness, near syncope, or syncopal episodes. Pt. denies edema or claudication issues. Pt. denies PND, fever, chills, blood in urine, blood in stool, myalgia, or unexplainable fatigue. Pt. states dizziness is much improved. He does get some dizziness with quick position changes. Pt. wears 4 liters during the day and 3 liters while sleeping. He sleeps in a recliner d/t needing to use oxygen. Pacemaker check from July 2017 showed 1 MS episode and one NSVT episode which correlated with A-V dissociation for 13 beats. Intake Vital Signs08/29/17 Height 5 ft 7 in 08/29/17 Weight: 149 lb 08/29/17 Body Mass Index (BMI) 23.3 08/29/17 Blood Pressure 126/60 08/29/17 Blood Pressure Location Lt brachial Intake Visit Reasons: 6 wk FU Business Executive Required: No Accompanied by: Is patient in pain?: No Allergies ampicillin Allergy (Verified 08/29/17 10:42) Anaphylaxis codeine Allergy (Verified 08/29/17 10:42) Rash penicillin G Allergy (Verified 08/29/17 10:42) Rash Sulfa (Sulfonamide Antibiotics) Allergy (Verified 08/29/17 10:42) Rash Medications Albuterol IH (ProAir) [Proair Hfa] 1 puff INHALATION Q4H PRN PRN 07/10/14 [History Confirmed 08/22/17] Cholecalciferol (VIT D3) [Vitamin D3] 1,000 unit PO DAILY 06/25/16 [History Confirmed 08/22/17] Polyethylene Glycol 3350 [Miralax] 17 gm PO DAILY PRN PRN 09/27/16 [History Confirmed 08/22/17] Acetaminophen [Tylenol Tablet] 650 mg PO Q6H PRN PRN #0 tab 10/24/16 [Rx Confirmed 08/22/17] Amlodipine [Norvasc] 5 mg PO DAILY #30 tab 06/12/17 [Rx Confirmed 08/22/17] Aspirin E.C. 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) Chronic respiratory failure (Chronic) Dyspnea (Acute) COPD (chronic obstructive pulmonary disease) (Chronic) Chest pain (Acute) Pulmonary congestion (Acute) Conduction disorder of the heart (Acute) Aortic valve disorder (Chronic) Pulmonary hypertension (Chronic) Acute exacerbation of chronic obstructive pulmonary disease (Acute) Acute exacerbation of chronic obstructive pulmonary disease (COPD) (Acute) Drug rash (Acute) FH: cardiovascular disease (Chronic) Family history of diabetes mellitus (DM) (Chronic) Colon polyps (Chronic) Hyperglycemia (Acute) CAP (community acquired pneumonia) (Acute) GERD (gastroesophageal reflux disease) (Chronic) Hyponatremia (Acute) Dehydration (Acute) Bullous emphysema (Chronic) Lung nodule, solitary (Acute) Lung cancer (Chronic) HTN (hypertension) (Chronic) Anxiety (Acute) Hemoptysis (Acute) Mobitz type 1 second degree AV block (Acute) Chronic hypoxemic respiratory failure (Chronic) Surgical History History of permanent cardiac pacemaker placement (Resolved) History of appendectomy (Resolved) Hx of cataract surgery (Resolved) Family History Brother Diabetes Sister Diabetes Lung cancer Social History Smoking Status: Former smoker quit date: 08/06/59 pack-years: 5 second hand exposure: No alcohol intake: never substance use type: does not use caffeine: Yes Type: coffee Number of servings: 4 what type of physical activity do you participate in: none seatbelt use: always do you feel safe at home: Yes ROS Const Const: Negative for fatigue, weakness, body ache, fever(s) or chills ENT ENT: Positive for dizziness Cardio Chest Pain: No Palpitations: Positive for No Edema: None Muscle aches with walking: None Resp Respiratory: Negative for SOB with activity, SOB at rest, SOB orthopnea\SOB lying down or paroxysmal nocturnal dyspnea GI GI: Negative nausea, black,tarry stools, bright, red blood in stools or vomiting blood/hematemesis : Negative for hematuria or frequent nighttime urination/ nocturia Musc Musc: Negative for muscle aches/ myalgia Neuro Neuro: Negative for weakness, Positive for dizziness, Negative for lightheadedness, Negative for near syncope, Negative for syncope, Negative for orthostatic symptoms Endo Endo: Negative for fatigue Cardiology Exam Const Appearance: cooperative, healthy appearing, comfortable and no acute distress Orientation: alert, awake and oriented x3 Head Head: normal to inspection Mouth: oral mucosae normal Neck Neck: no JVD and normal visual inspection Carotids: normal carotid upstroke Chest Chest inspection: normal inspection of the chest and normal respiratory effort Auscultation: Bilateral: Clear to Auscultation Cardio Rate: regular rate Rhythm: regular rhythm Heart sounds: murmur (Right sternal systolic murmur); negative rub or gallop Murmur: Grade 3/6 GI GI: normal to inspection Neuro General: alert, awake, oriented x3 and CN's II-XI intact bilaterally Skin Skin: no rashes or lesions noted Extremities Pulses: Normal: Right Posterior Tibial Pulse, Left Posterior Tibial Pulse, Right Radial Pulse, Left Radial Pulse Lower Extremity Edema: None: Bilateral Psych Psychological: normal affect Assessment AND Plan 1. Mobitz type 2 second degree AV block I44.1 Plan - CAITLIN Muller Patient is status post permanent pacemaker for this. His most recent pacer check as noted above. He states that his dizziness is much improved since permanent pacemaker placement. We will continue to monitor this through exam and pacemaker checks. We will not make any medication regimen changes. 2. History of permanent cardiac pacemaker placement Z95.0 06/11/17 CAITLIN Barboza Patient's pacemaker/ICD appears to be functioning appropriately. We will continue to monitor this with routine/scheduled follow-ups. 3. Aortic valve stenosis, nonrheumatic I35.0 CAITLIN Barboza Patient's echocardiogram from June 2017 showed moderate aortic stenosis. Patient states his activity level and breathing have been stable. We will continue to monitor this through history, exam, and repeat echocardiogram as needed. 4. Pulmonary hypertension I27.20 CAITLIN Barboza Patient's echocardiogram from June 2017 showed an RVSP of 68 mmHg. Patient will continue with current medications for management of this. We will continue to monitor this. 5. Diastolic dysfunction I51.9 CAITLIN Barboza Patient's echocardiogram from June 2017 showed an estimated ejection fraction of 75%, and diastolic dysfunction. Patient does not appear to be fluid volume overload. His breathing has been stable. His activity has also remained stable. We will continue to monitor this. Patient will continue with diuretic therapy. 6. Non-rheumatic tricuspid valve insufficiency I36.1 CAITLIN Barboza Echocardiogram from June 2017 showed mild tricuspid valve insufficiency. We will continue to monitor this. We will not make any medication regimen changes. Plan Detail Additional Comments - CAITLIN Muller Discussed the above patient with Dr. Alan, he agrees with the plan of care. Thank you for allowing us to participate in the patients plan of care, if you have any questions please do not hesitate to call. This note was generated using a voice recognition system and there may be incorrect words, spelling or punctuation that were not noted when reviewing the office note prior to saving. Follow Up 9 Months (PFM) Coding Level of Care Code Off vis,est,level 3 Diagnoses Mobitz type 2 second degree AV block I44.1 History of permanent cardiac pacemaker placement Z95.0 Aortic valve stenosis, nonrheumatic I35.0 Pulmonary hypertension I27.20 Diastolic dysfunction I51.9 Non-rheumatic tricuspid valve insufficiency I36.1 08/29/17 1206 <Electronically signed by Eliceo H Roof OVERHEAD LINE WORKER-C> Date Eliceo Garrison OVERHEAD LINE WORKER-C 09/03/17 1613<Electronically signed by Jason Alan MD> Cosigner Signature: Date (if applicable) Jason Alan MD CC: Misael Beckwith MD CREATININE Collected: 09/03/2017 Status: F Source: [place] 4:10 PM [facility] [place] REPOSITORY TYPE CODE TESTS RESULT OUT OF REFERENCE UNITS RANGE LAB CRET 0.73-1.22 mg/dL Low Creatinine 0.64 LAB GFRAA eGFR- >60 Amer. LAB GFRNAA . eGFR-All Other Races >60 Result Comment: eGFR (Estimated GFR) Units of measure: mL/min/1.73 meters squared eGFR is derived from the reexpressed MDRD Study equation using the following parameters: serum creatinine, age, gender and race. The creatinine assay has been calibrated to be traceable to IDMS. An eGFR <60 mL/min/1.73m2 for >3 months is consistent with chronic kidney disease. Refer to KDOQI guidelines for clinical interpretation. In patients with unstable renal function, e.g. those with acute kidney injury, the eGFR may not accurately reflect actual GFR. Performed By: #### CRET1 #### [facility] [address], [place] [address] PROGRESS Observed: 09/03/2017 Status: COMPLETED Source: [place] 3:41 PM [facility] [place] REPOSITORY HNO ID: [id number] Author: Sara Bonner Service: (none) Author Type: Physician Type: Progress Notes Filed: 09/03/2017 3:44 PM Note Text: AFIA Dc is a 81 year old male who presents with right parotid mass. Patient is seen in consultation for Florian.. Patient had a CT/ PET scan which showed a increased activity in the right parotid. Patient has had this previously and it has gotten slightly larger patient has no complaints. The patient has been treated for lung cancer ROS General Weight loss: No Fatigue: No Night sweats:No Cardiac Chest pain:No Fast heart rate:No Swelling in the feet:No Respiratory Short of breath:No Cough:No Wheezing:No Gastrointestinal Nausea:No Vomiting:No Indigestion:No Past no history family history social history reviewed Physical Exam PHYSICAL EXAM: There were no vitals taken for this visit. General: Patient is awake, alert, NAD. Voice is normal. Skin: normal Eyes: Extraocular motion and Gaze is normal. Ears: Right external auditory canal is normal. TMJ: normal. Right tympanic membranes normal. Left external auditory canal is normal. Left tympanic membrane normal. Nose: Septum is normal. Turbinates are normal. Nasopharynx:normal Oral Cavity/Oropharynx: Lips normal Dentition normal Tongue normal. Tonsils normal. Palate and uvula normal. Pharynx posterior normal Hypopharynx: Base of tongue normal Pyriform sinus normal. Larynx: Vocal cords normal. Epiglottis normal. Post cricoid normal. Salivary glands: Parotid normal. Submandibular and sublingual normal. Thyroid: normal. Lymphatic/Neck: Lymph nodes normal. Neurologic: Facial nerve normal. ASSESSMENT/PLAN: 1. 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 CNOV Observed: 09/03/2017 Status: COMPLETED Source: [place] 2:15 PM [facility] [place] REPOSITORY Office Visit (OTOLMM) BENJY DC ([id number]) 1935 M Date Time Provider Department 09/03/17 2:15 PM SARA BONNER During your visit today, we recorded the following information about you: Sara Bonner MD 09/03/2017 3:44 PM Signed HPI Benjy Dc is a 81 year old male who presents with right parotid mass. Patient is seen in consultation for Florian.. Patient had a CT/ PET scan which showed a increased activity in the right parotid. Patient has had this previously and it has gotten slightly larger patient has no complaints. The patient has been treated for lung cancer ROS General Weight loss: No Fatigue: No Night sweats:No Cardiac Chest pain:No Fast heart rate:No Swelling in the feet:No Respiratory Short of breath:No Cough:No Wheezing:No Gastrointestinal Nausea:No Vomiting:No Indigestion:No Past no history family history social history reviewed Physical Exam PHYSICAL EXAM: There were no vitals taken for this visit. General: Patient is awake, alert, NAD. Voice is normal. Skin: normal Eyes: Extraocular motion and Gaze is normal. Ears: Right external auditory canal is normal. TMJ: normal. Right tympanic membranes normal. Left external auditory canal is normal. Left tympanic membrane normal. Nose: Septum is normal. Turbinates are normal. Nasopharynx:normal Oral Cavity/Oropharynx: Lips normal Dentition normal Tongue normal. Tonsils normal. Palate and uvula normal. Pharynx posterior normal Hypopharynx: Base of tongue normal Pyriform sinus normal. Larynx: Vocal cords normal. Epiglottis normal. Post cricoid normal. Salivary glands: Parotid normal. Submandibular and sublingual normal. Thyroid: normal. Lymphatic/Neck: Lymph nodes normal. Neurologic: Facial nerve normal. ASSESSMENT/PLAN: 1. 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 Referring Provider: CAROLANN LI [[id number]] Allergies As of Date: 09/03/2017 Noted Allergy Reaction AMOXICILLIN 06/08/2014 2 - Rash BACTRIM (SULFAMETHOXAZOLE-TRIMETH*05/25/2017 2 - Rash CODEINE 04/28/2005 2 - Rash SULFUR 10/27/2016 2 - Rash 4 - Hives ZPAK (AZITHROMYCIN) 12/07/2011 2 - Rash Date Reviewed: 09/03/2017 Reviewed by: Sara Bonner - Fully Assessed Reason for Visit: New Neck Evaluation [1066] Cmt: pet scan showed problem done at [facility]. Patient not sure which side. Reason For Visit History Recorded Primary Visit Diagnosis:Parotid mass [K11.9] Order(s):CT NECK SOFT TISSUE W IVCON [[id number]] Order #: [id number] FUTURE iv contrast (radiology procedure)Inject 1 Each intravenously one time only for [address] Neck W IVCON No IV access, insert saline lock prior to the sedation, infusion, injection for imaging exam. Discontinue saline lock post exam. If Pt. has a central line or IVAD, may access for administration according to line specific nursing protocol. Once exam is complete flush line and de- access according to line specific nursing protocol in the CT contrast administration guidelines link.Disp: 1 EachRfl: 0 CREATININE BLD [SQCRET] Order #: [id number] FUTURE Prescriptions as of 09/03/2017 Sig: UMECLIDINIUM 62.5 MCG-VILANTE* Inhale 1 Inhalation as instru* FUROSEMIDE 40 MG TABLET Take 1 tablet by mouth once d* AMLODIPINE 5 MG TABLET Take 1 tablet by mouth once d* IPRATROPIUM-ALBUTEROL 0.5 MG-* Inhale 1 Each as instructed e* LOSARTAN 50 MG TABLET Take 0.5 tablets by mouth onc* TIOTROPIUM BROMIDE 18 MCG CAP* Inhale 1 capsule as instructe* ALBUTEROL SULFATE HFA 90 MCG/* Inhale 2 Puffs as instructed * POLYETHYLENE GLYCOL 3350 17 G* Use one scoop daily as needed. * CHOLECALCIFEROL (VITAMIN D3) * Take one(1) tablet daily. IV CONTRAST (RADIOLOGY PROCED* Inject 1 Each intravenously o* Problem List As Of Date 09/03/2017 Noted Resolved Other emphysema (HCC) [J43.8] 10/28/2016 Elevated prostate specific antigen (PSA) [R97.2*INVALID FOR*10/28/2016 Chronic obstructive pulmonary disease with acut*INVALID FOR* Dysphagia [R13.10] INVALID FOR* Early satiety [R68.81] INVALID FOR*10/28/2016 GERD (Gastroesophageal Reflux Disease) [K21.9] INVALID FOR* Hernia, hiatal [K44.9] INVALID FOR*10/28/2016 Medicare annual wellness visit, subsequent [Z00*INVALID FOR*10/28/2016 Personal history of colonic polyps [Z86.010] INVALID FOR*10/28/2016 HTN (hypertension) [I10] INVALID FOR*10/26/2015 Hyperlipidemia [E78.5] INVALID FOR* Lung nodule [R91.1] INVALID FOR*10/28/2016 BPH (benign prostatic hyperplasia) [N40.0] INVALID FOR* Elevated PSA [R97.20] INVALID FOR*10/28/2016 Dysphagia [R13.10] INVALID FOR*10/07/2015 Essential hypertension [I10] INVALID FOR* Non-small cell lung cancer (NSCLC) (HCC) [C34.9*INVALID FOR* Panlobular emphysema (HCC) [J43.1] INVALID FOR*10/28/2016 Chronic bilateral thoracic back pain [M54.6, G8*INVALID FOR*02/07/2017 Constipation [K59.00] INVALID FOR* Status post stereotactic radiosurgery (SBRT rig*INVALID FOR* Acute on chronic diastolic congestive heart pete*INVALID FOR* Chronic respiratory failure with hypoxia (HCC) *INVALID FOR* Aortic valve stenosis [I35.0] INVALID FOR* Pacemaker [Z95.0] INVALID FOR* AV block, Mobitz 1 [I44.1] INVALID FOR* Pulmonary hypertension [I27.20] INVALID FOR* Prescriptions ordered this encounter Disp Refills Start End IV CONTRAST (RADIOLOGY PROCEDURE) 1 Ea* 0 09/03/2017 09/03/2017 Class: In Office Route: INTRAVENOUS Sig: Inject 1 Each intravenously one time only for [address] Neck W IVCON No IV access, insert saline lock prior to the sedation, infusion, injection for imaging exam. Discontinue saline lock post exam. If Pt. has a central line or IVAD, may access for administration according to line specific nursing protocol. Once exam is complete flush line and de-access according to line specific nursing protocol in the CT contrast administration guidelines link. Follow-up and Disposition History Recorded Encounter Status:Closed by SARA BONNER MD on 09/03/17 PULMONARY VISIT REPORT Observed: 08/17/2017 Status: F Source: [place] 10:03 AM [facility] [place] [facility] [address] [place] [address] OFFICE VISIT Date of Service: 08/16/17 MR#: [id number] Acct: [id number] Name: BENJY DC Rep #: [id number] : 1935 Provider: Shu Chahal Age/Sex: 81/M Location: [facility] [place].[facility] Status: Signed Assessment AND Plan 1. Chronic obstructive pulmonary disease, unspecified COPD type J44.9 Status Chronic Plan Last pulmonary function tests for over 7 years ago and reportedly show advanced COPD. Given the patient's hypoxic respiratory failure, advanced stages of clubbing, increased AP diameter and breathlessness, he appears to have severe to very severe COPD. He is agreeable to rescheduling the pulmonary function test to quantify his disease state. He will then follow-up with Dr. Mccartney to discuss test results and review inhalers. No change in maintenance medications at this time. The patient is, as previously stated, very advanced COPD and palliative care appropriate. Patient and his are agreeable to a palliative care consult at this time. Discussed with the patient that palliative care would be able to help him manage his anxiety, depression and breathlessness. 2. Pulmonary hypertension I27.20 Status Chronic Plan Continue to utilize supplemental oxygen to maintain saturations 89-92%. The plans to obtain a portable pulse oximeter to monitor his sats. Follow- up with Dr. Mccartney in 1 month. 3. Chronic respiratory failure with hypoxia J96.11 Status Chronic Plan As in assessment and plan #2, continue to provide supplemental oxygen to maintain saturations 89-92%. The patient reports that he has had 2 exacerbations of his COPD this year. He is palliative care appropriate. Consider placing him on a BiPAP for sleep or possibly and assured volume delivery system such as a noninvasive ventilator. Can review with Dr. Mccartney in 1 month at the follow-up. Plan Detail Other Medications New: Discontinued: fluticasone-vilanterol 200-25 mcg/dose (Breo Ellipta) Discontinu1 inh Inhalation QDAY ed Reason: Pt no longer taking Follow Up 1 Month (DMB) HPI 6 wk FU: Chief Complaint: dyspnea HPI Comments Details: This patient presents to the office today to follow- up on his COPD and chronic respiratory failure. The patient is in a wheelchair, wearing nasal cannula oxygen and accompanied by his . The patient reports that he follows up with a thermoplastic technician who specifically follows his recent lung cancer, and was directed to change his inhaler regime. That thermoplastic technician stopped his Breo and Spiriva, and started him on Anoro. The patient has been on the Anoro since August 07. He reports that while on the Breo he noticed an increase in anxiety and chest tightness. Since starting the Anoro these symptoms have resolved however she feels as though the Anoro makes him hyper . He has not been treated with any prednisone or antibiotics since his last office visit. He has not been seen in the ED urgent care for any respiratory illnesses. He continues to wear oxygen at 3 L continuously, and titrate up to 4 L at times when he becomes short of breath. He does not currently have a portable pulse oximeter. He wears oxygen at 3 L/min while sleeping. Patient reports that he was unable to complete his pulmonary function test prior to this visit secondary to an episode of loose stools. He does plan to reschedule the pulmonary function test. The patient reports that he has had difficulty with shortness of breath with minimal exertion. He is having a difficult time completing activities of daily living, and becomes very anxious when he thinks about anything that he knows is going to cause him to become short of breath. He also becomes anxious when he has to leave the house for doctor's appointments, as well as anticipating company in his home. He reports a sense of breathlessness almost all the time. He denies any cough, fever or chills. Is no longer having wheezing or chest tightness. He denies any weight change. He is not having lower extremity edema. He denies any hemoptysis. Intake Vital Signs08/16/17 Height 5 ft 7 in 08/16/17 Weight: 154 lb Intake Visit Reasons[place] 6 [place] [facility] [place] [employer] Accompanied by: Allergies ampicillin Allergy (Verified 08/16/17 09:23) Anaphylaxis codeine Allergy (Verified 08/16/17 09:23) Rash penicillin G Allergy (Verified 08/16/17 09:23) Rash Sulfa (Sulfonamide Antibiotics) Allergy (Verified 08/16/17 09:23) Rash Medications Tiotropium [place] [Spiriva] 18 mcg INHALATION DAILY 06/02/14 [History Confirmed 08/16/17] Albuterol IH (ProAir) [Proair Hfa] 1 puff INHALATION Q4H PRN PRN 07/10/14 [History Confirmed 08/16/17] Cholecalciferol (VIT D3) [Vitamin D3] 1,000 unit PO DAILY 06/25/16 [History Confirmed 08/16/17] Polyethylene Glycol 3350 [Miralax] 17 gm PO DAILY PRN PRN 09/27/16 [History Confirmed 08/16/17] Acetaminophen [Tylenol Tablet] 650 mg PO Q6H PRN PRN #0 tab 10/24/16 [Rx Confirmed 08/16/17] Amlodipine [Norvasc] 5 mg PO DAILY #30 tab 06/12/17 [Rx Confirmed 08/16/17] Aspirin E.C. [Ecotrin] 81 mg PO DAILY@0800 #30 tab 06/12/17 [Rx Confirmed 08/16/17] Furosemide [Lasix] 40 mg PO DAILY #30 tab 06/12/17 [Rx Confirmed 08/16/17] Guaifenesin [Mucinex] 1,200 mg PO BID #14 tab 06/12/17 [Rx Confirmed 08/16/17] Losartan Potassium 25 mg PO DAILY #0 06/12/17 [Rx Confirmed 08/16/17] umeclidinium 62.5 mcg-vilanterol 25 mcg/actuation powdr for inhalation 1 inh INHALATION Q24H 08/16/17 [History Confirmed 08/16/17] PFSH Medical History Dyspnea (Acute) COPD (chronic obstructive pulmonary disease) (Chronic) Chest pain (Acute) Pulmonary congestion (Acute) Conduction disorder of the heart (Acute) Aortic valve disorder (Chronic) Pulmonary hypertension (Chronic) Acute exacerbation of chronic obstructive pulmonary disease (Acute) Acute exacerbation of chronic obstructive pulmonary disease (COPD) (Acute) Drug rash (Acute) FH: cardiovascular disease (Chronic) Family history of diabetes mellitus (DM) (Chronic) Colon polyps (Chronic) Hyperglycemia (Acute) CAP (community acquired pneumonia) (Acute) GERD (gastroesophageal reflux disease) (Chronic) Hyponatremia (Acute) Dehydration (Acute) Bullous emphysema (Chronic) Lung nodule, solitary (Acute) Lung cancer (Chronic) HTN (hypertension) (Chronic) Acute on chronic diastolic (congestive) heart failure (Acute) Anxiety (Acute) Aortic valve stenosis, nonrheumatic (Acute) Hemoptysis (Acute) Mobitz type 1 second degree AV block (Acute) Mobitz type 2 second degree AV block (Acute) Chronic hypoxemic respiratory failure (Chronic) Surgical History History of appendectomy (Resolved) History of permanent cardiac pacemaker placement (Resolved) Hx of cataract surgery (Resolved) Family History Brother Diabetes Sister Diabetes Lung cancer Social History Smoking Status: Former smoker quit date: 08/06/59 pack-years: 5 second hand exposure: No alcohol intake: never substance use type: does not use Review of Systems Const CONSTITUTIONAL: Positive sleeping in chair; negative anorexia, body ache, chills, daytime sleepiness, fever(s), night sweats, oral thrush, stops breathing during sleep, weight loss, fatigue, weight loss, weight gain, frequent colds, seasonal allergies, other, headache(s) or orthopnea EETM Ear Nose Throat Mouth: Positive hard of hearing, dry mouth in morning, swallowing Difficulty, nasal congestion and sinus pressure; negative hearing normal, hoarseness, change in vision, itchy eyes, eye pain, ear pain, nose bleed, headache(s), mouth pain, nasal discharge, post nasal drip, sinus pain, sore throat or other Cardio Cardiovascular: Negative chest pain, chest pain at rest, chest pain with activity, irregular heart rhythm, edema, shortness of breath when lying down, palpitations, murmur or other Resp Respiratory: Positive as per HPI, shortness of breath, wheezing, cough cough: Positive productive color: Positive thin and clear and inhalers; negative pain with cough, chest congestion, chest tightness, pain on inspiration, increase use of rescue inhalers, snoring, apnea or other Gastro Gastrointestional: Negative bloody stools, change in appetite, difficulty swallowing, reflux, hematemesis, melena stool, loose stool, constipation or other Genitourinary: Negative blood in urine, nocturia, pain with urination or other Musc Musculoskeletal: Negative body pain, back pain, neck pain or other Skin/Breast Skin/Breast: Positive dry skin and itching; negative rash, unusual bruising, breast lump or other Neuro Neurological: Positive weakness; negative restless legs, confusion or other Psych Psychocological: Positive anxiety; negative abnormal sleep pattern, thoughts of hurting self/others, hopelessness or other Lymph Lymphatic: Negative easy bleeding, easy bruising, swollen lymph nodes or other Exam Const Constitutional: Positive conversant, cooperative, in no acute respiratory distress, good hygiene, frail appearing and wearing supplemental oxygen Head Head: Positive normocephalic and atraumatic; negative cyanosis of lips/distal nose Eyes Eye: Positive clear conjunctiva and nystagmus; negative scleral abnormality Ears Ear: Positive hard of hearing and external ears normal; negative hearing normal Nose Nose: Positive external nose normal and no nasal discharge; negative epistaxis Mouth Mouth: Positive oral mucosae normal, no lesions, dentures and posterior oropharynx is adequate; negative post nasal drip, malodorous breath or oral thrush present Mallampati Score: I: Mallampati Score Neck Neck: Positive normal visual inspection, full ROM and trachea midline; negative lymphadenopathy, JVD or tender Chest Wall Chest: Positive symmetric chest movement and increased A/P diameter Resp lung sounds: Positive wheezes, diminished, prolonged expiratory time and normal chronic state of increased work of breathing; negative rhonchi, rales, dullness to percussion or use of accessory muscles Cardio Cardiac: Positive regular rate, regular rhythm, S1 normal and S2 normal; negative murmur GI GI: Positive normal to inspection and normal bowel sounds; negative distended Genitourinary: Positive deferred Musc Musculoskeletal: Positive ROM normal and in a wheelchair; negative kyphosis or scoliosis Skin Pulmonary Skin Exam: Positive intact; negative rash, lesion, ulcers, erythema or scaly Pulses Pulse: Yes pulses normal x4 extremities Extremities Extremities: Yes clubbing, Yes capillary refill normal, No cyanosis, No edema, No stasis dermatitis Neuro Neurologic: Yes conversant, Yes no focal neuro deficits, Yes cooperative, Yes normal cognition, Yes understands questions, Yes normal concentration, Yes normal coordination Lymph Lymphatic: No lymphadenopathy Psych Appearance: Positive grossly normal, eye contact and well kempt Mental Status: Positive mental status grossly normal Mood: Positive anxious mood Affect: Positive sad and anxious affect 08/17/17 1003 <Electronically signed by Shu TUCKER> Date Shu TUCKER Cosigner Signature: Date (if applicable) CC: Sabino Ramos DO; Misael Beckwith MD ALLERGIES ALLERGIES DATE TYPE / NAME / CODE REACTION SEVERITY SOURCE CODE 05/20/2018 Drug Sulfa (Sulfonamide Rash Unknown [place] Allergy/41 Antibiotics)/F0010 Community 8177552( 11015(RXNORM) [facility] OMED CT) Repository 05/20/2018 Drug codeine/[id number] Rash Unknown [place] Allergy/41 (RXNORM) Community 8326541([facility] OME CT) Repository 05/20/2018 Drug ampicillin/[id number] Anaphylaxis Unknown [place] Allergy/41 692(RXNORM) Community 3173944([facility]) Repository 05/20/2018 Drug penicillin Rash Unknown [place] Allergy/41 G/[id number](RXNOR Community 4638989([facility]) [facility] OMED CT) Repository 05/25/2017 DRUG/78119 SULFAMETHOXAZOLE-T RASH [facility] 1003(SN[place] RIMETHOPRIM [address] [place] [address]) Repository 10/27/2016 DRUG SULFUR RASH [place] [address] [address] [place] 8007598( Repository OMED CT) 06/08/2014 DRUG AMOXICILLIN RASH [place] [address] [place] [id number]( Repository OMED CT) 12/07/2011 DRUG AZITHROMYCIN RASH [place] [address] [address] [place] [id number]( Repository OMED CT) 04/28/2005 DRUG CODEINE RASH [place] [address] [place] [id number]( Repository OMED CT) ENCOUNTERS ENCOUNTERS ADMIT/DISCHARGE ACCOUNT ADMITTING ENCOUNTER LOCATION SOURCE NUMBER CLASS 07/02/2018 [id number] Ambulatory BMSBuilding:Miryam Espinosa MS.CF.[facility] Repository 07/02/2018 [id number] Ambulatory [facility] ing:[facility] Repository 06/13/2018/06/13/20 [id number] Ambulatory [address] [place] Repository 06/08/2018/06/10/20 [id number] Ambulatory [address] [place] Repository 05/20/2018/05/20/20 [id number] Ambulatory BMSBuilding:Miryam Espinosa [address] MS[address] Repository 04/25/2018 [id number] [facility] Rep[facility] 04/25/2018 [id number] Ambulatory BMSBuilding:W [place] [facility] Repository 03/27/2018/03/27/20 [id number] Ambulatory BMSBuilding:B [place] [address] MS[facility] Repository 03/21/2018/03/21/20 [id number] Ambulatory [address] Repository 02/21/2018/02/23/20 [id number] Ambulatory [address] Repository 02/15/2018/02/16/20 [id number] Ambulatory [address] Repository 01/02/2018/01/04/20 [id number] Ambulatory [address] Repository 01/02/2018/01/03/20 [id number] Ambulatory [address] Repository 12/13/2017/12/14/19 [id number] Ambulatory BMSBuilding:Miryam Espinosa [address] MS[address] Repository 09/26/2017 [id number] Ambulatory BMSBuilding:Miryam Espinosa MS.[facility] Repository 09/25/2017/09/28/19 [id number] Ambulatory [address] Repository 09/17/2017 [id number] [facility] 09/10/2017/09/10/19 [id number] Ambulatory BMSBuilding:Miryam Espinosa [address] MS[address] Repository 09/04/2017/09/07/19 [id number] Ambulatory [address] Repository 09/03/2017/09/03/19 [id number] Ambulatory [address] Repository 09/03/2017/09/03/19 [id number] Ambulatory [address] Repository 08/29/2017/08/29/19 [id number] Ambulatory BMSBuilding:B [place] [address] [facility] Repository 08/29/2017 [id number] Ambulatory BMSBuilding:B [place] MS.[facility] Repository 08/29/2017 [id number] Ambulatory BMSBuilding:B [place] MS[facility] Repository 08/16/2017/08/16/19 [id number] Ambulatory BMSBuilding:B [place] 18 MS.[facility] Repository 08/14/2017 [id number] Ambulatory BMSBuilding:B [place] MS.W Repository 08/13/2017 [id number] Ambulatory BMSBuilding:B [place] MS.[facility] Repository PAYERS PAYERS ENCOUNTER GUARANTOR PAYER SUBSCRIBER SOURCE 07/02/2018 HARLAND D Primary HARLAND D [place] [id number] Insurance:MEDICARE TOMPKINSDOB: [facility] PART [facility] [id number] Repository 101[address]Ovq: 330 [id number] [phone] () Date:2018-05-20 07/02/2018 Secondary HARLAND D [place] Insurance:AARPPolicy TOMPKINSDOB: Community Number: [id number] [id number] Repository Date:5352-30-67[address], [place] [address]DY: 07/02/2018 Tertiary NOT GIVENUNK [place] Insurance:SELF PAY [facility] Number: Effective Repository Date:2018-07-02 07/02/2018 HARLAND D Primary HARLAND D [place] [id number] Insurance:MEDICARE TOMPKINSDOB: [facility] PART [facility] [id number] Number[place] Repository [address]Yas: 330 [id number] [phone] () Date:2018-05-20 07/02/2018 Secondary [place] D [place] Insurance:AARPPolicy TOMPKINSDOB: Community Number: [id number] Hospital [id number] Repository Date:4803-35-41[address], [place] [address]XP: 07/02/2018 Tertiary NOT GIVENUNK [place] Insurance:SELF PAY [facility] Number: Effective Repository Date:2018-05-20 05/20/2018 HARLAND D Primary HAR[place] D [place] [id number] Insurance:MEDICARE TOMPKINSDOB: [facility] PART A [facility] [id number] Number: Repository [address]Nyn: 330 [id number] [phone] () Date:2017-08-29 05/20/2018 Secondary [place] D [place] Insurance:AARPPolicy TOMPKINSDOB: Community Number: [id number] [facility] [id number] Repository Date:7116-03-13AD [facility] [address], [place] [address]ZS: 05/20/2018 Tertiary NOT GIVENUNK [place] Insurance:SELF PAY [facility] Number: Effective Repository Date:2018-05-20 04/25/2018 HARLAND D Primary [place] D [place] [id number] Insurance:MEDICARE TOMPKINSDOB: [facility] PART A [facility] [id number] Number[place] Repository [address]Fad: 330 [id number] [phone] () Date:2018-04-24 04/25/2018 Secondary [place] D [place] Insurance:AARPPolicy TOMPKINSDOB: Community Number: [id number] Hospital [id number] Repository Date:7030-72-03XZ [address], [place] [address]UI: 04/25/2018 Tertiary NOT GIVENUNK [place] Insurance:SELF PAY [facility] Number: Effective Repository Date:2018-04-24 04/25/2018 HARLAND D Primary HAR[place] D [place] [id number] Insurance:MEDICARE TOMPKINSDOB: [facility] PART A [facility] [id number] Number[place] Repository [address]Piq: 330 [id number] [phone] () Date:2018-04-24 04/25/2018 Secondary [place] D [place] Insurance:AARPPolicy TOMPKINSDOB: Community Number: [id number] Hospital [id number] Repository Date:4897-34-27SR [address], [place] [address]OB: 04/25/2018 Tertiary NOT GIVENUNK [place] Insurance:SELF PAY [facility] Number: Effective Repository Date:2018-04-25 03/27/2018 HARLAND D Primary [place] D [place] [id number] Insurance:MEDICARE TOMPKINSDOB: Community [place] PART A [facility] [id number] Number: Repository [address]Qtw: 330 [id number] [phone] () Date:2017-12-31 03/27/2018 Secondary [place] D [place] Insurance:AARPPolicy TOMPKINSDOB: [facility] Number: [id number] Hospital [id number] Repository Date:4082-64-23KW [address]K[address], [place] [address]GX: 03/27/2018 Tertiary NOT GIVENUNK [place] Insurance:SELF PAY [facility] Number: Effective Repository Date:2018-03-27 12/13/2017 HARLAND D Primary [place] D [place] [id number] Insurance:MEDICARE TOMPKINSDOB: Community [place] PART A [facility] [id number] Number: Repository [address]Xue: 330 [id number] [phone] () Date:2017-09-22 12/13/2017 Secondary [place] D [place] Insurance:AARPPolicy TOMPKINSDOB: Community Number: [id number] Hospital [id number] Repository Date:5056-80-20OZ [address], [place] [address]HZ: 12/13/2017 Tertiary NOT GIVENUNK [place] Insurance:SELF PAY [facility] Number: Effective Repository Date:2017-12-13 09/26/2017 HARLAND D Primary [place] D [place] [id number] Insurance:MEDICARE TOMPKINSDOB: Community WATTS PART A [facility] [id number] Number[place] Repository [address]Wnt: [phone] [id number] [phone] (HP) Date:2017-08-16 09/26/2017 Secondary [place] D [place] Insurance:AARPPolicy TOMPKINSDOB: Community Number: [id number] Hospital [id number] Repository Date:7610-03-65QI [facility] [address], [place] [address]SQ: 09/26/2017 Tertiary NOT GIVENUNK [place] Insurance:SELF PAY [facility] Number: Effective Repository Date:2017-08-16 09/17/2017 HARLAND D Primary [place] D [place] [id number] Insurance:MEDICARE TOMPKINSDOB: [facility] PART A [facility] [id number] Number: Repository [address]Idw: 330 [id number] [phone] () Date:2001-10-04 09/17/2017 Secondary [place] D [place] Insurance:AARPPolicy TOMPKINSDOB: Community Number: [id number] Hospital [id number] Repository Date:4083-78-51BZ [address], [place] [address]YR: 09/17/2017 Tertiary NOT GIVENUNK [place] Insurance:SELF PAY [facility] Number: Effective Repository Date:2017-07-04 09/10/2017 HARLAND D Primary [place] D [place] [id number] Insurance:MEDICARE TOMPKINSDOB: [facility] PART A [facility] [id number] Number: Repository [address]Imp: 330 [id number] [phone] () Date:2017-07-19 09/10/2017 Secondary [place] D [place] Insurance:AARPPolicy TOMPKINSDOB: Community Number: [id number] Hospital [id number] Repository Date:8312-67-32UL [facility] [address], [place] [address]AA: 09/10/2017 Tertiary NOT GIVENUNK [place] Insurance:SELF PAY [facility] Number: Effective Repository Date:2017-07-19 08/29/2017 HARLAND D Primary [place] D [place] [id number] Insurance:MEDICARE TOMPKINSDOB: [facility] PART A [facility] [id number] Number: Repository [address]Ojl: 330 [id number] [phone] (HP) Date:2017-08-13 08/29/2017 Secondary [place] D [place] Insurance:AARPPolicy TOMPKINSDOB: Community Number: [id number] Hospital [id number] Repository Date:1871-02-50QN [facility] [address]99[address], [place] [address]XE: 08/29/2017 Tertiary NOT GIVENUNK [place] Insurance:SELF PAY [facility] Number: Effective Repository Date:2017-08-13 08/29/2017 HAR[place] D Primary [place] D [place] [id number] Insurance:MEDICARE TOMPKINSDOB: [id number] [place] Number: Repository [address]Xci: 330 [id number] [phone] (HP) Date:2017-08-29 08/29/2017 Secondary [place] D [place] Insurance:AARPPolicy TOMPKINSDOB: Community Number: [id number] Hospital [id number] Repository Date:2298-25-79MB [address], [place] [address]PA: 08/29/2017 Tertiary NOT GIVENUNK [place] Insurance:SELF PAY [facility] Number: Effective Repository Date:2017-08-29 08/29/2017 HARLAND D Primary [place] D [place] [id number] Insurance:MEDICARE TOMPKINSDOB: [facility] PART A [facility] [id number] Number: Repository [address]Kzv: 330 [id number] [phone] (HP) Date:2017-08-29 08/29/2017 Secondary [place] D [place] Insurance:AARPPolicy TOMPKINSDOB: Community Number: [id number] Hospital [id number] Repository Date:1130-37-89QA [address], [place] [address]OQ: 08/29/2017 Tertiary NOT GIVENUNK [place] Insurance:SELF PAY [facility] Number: Effective Repository Date:2017-08-29 08/16/2017 HARLAND D Primary [place] D [place] [id number] Insurance:MEDICARE TOMPKINSDOB: [facility] PART A [facility] [id number] Number[place] Repository [address]Lgj: [phone] [id number] [phone] () Date:2017-08-13 08/16/2017 Secondary [place] D [place] Insurance:AARPPolicy TOMPKINSDOB: Community Number: [id number] Hospital [id number] Repository Date:3178-11-39EY [address]PF, [place] [address]XU: 08/16/2017 Tertiary NOT GIVENUNK [place] Insurance:SELF PAY [facility] Number: Effective Repository Date:2017-08-13 08/14/2017 HARLAND D Primary [place] D [place] [id number] Insurance:MEDICARE TOMPKINSDOB: [facility] PART A [facility] [id number] Number: Repository [address]Ytq: 330 [id number] [phone] () Date:2017-08-14 08/14/2017 Secondary [place] Insurance:AARPPolicy TOMPKINSDOB: Community Number: [id number] Hospital [id number] Repository Date:7402-67-88UM [address], [place] [address]RD: 08/14/2017 Tertiary NOT GIVENUNK [place] Insurance:SELF PAY [facility] Number: Effective Repository Date:2017-08-14 08/13/2017 HAR[place] D Primary [place] D [place] [id number] Insurance:MEDICARE TOMPKINSDOB: [facility] PART A [facility] [id number] Number: Repository [id number]: [phone] [id number] [phone] () Date:2017-07-14 08/13/2017 Secondary BENJY Panchaloster Insurance:Colleen RAMB: [facility] Number: [id number] Hospital [id number] Repository Date:0329-20-13ZZ [address]VNCTXW, [place] [address]IV: 08/13/2017 Tertiary NOT GIVENUNK [place] Insurance:SELF PAY [facility]: Effective Repository Date:2017-07-14
== END ==
PROVIDERS: Family Provider Internal Medicine; PCP Internal Medicine; Referring Provider Internal Medicine Cardiovascular Disease; Visit Provider Internal Medicine Cardiovascular Disease
DX: I36.1 Nonrheumatic tricuspid (valve) insufficiency (principal)
CPT/HCPCS: 93306

== ENCOUNTER 2018-10-25 20:47 | Inpatient (IN) | payer MEDICARE, OTHER, SELFPAY ==
[2018-10-25] VITALS (11 sets, daily range): BP systolic 89–163; BP diastolic 60–100; PULSE 95–132; RESP 14–38; TEMP 36.7–38; O2SAT 91–96; BMI 23.9
--- NOTE | 2018-10-25 20:59 | EKG12_ITS ---
Test Reason : SOB Blood Pressure : / mmHG Vent. Rate : 125 BPM Atrial Rate : 125 BPM P-R Int : 000 ms QRS Dur : 142 ms QT Int : 352 ms P-R-T Axes : 065 -88 076 degrees QTc Int : 508 ms Ventricular-paced rhythm with occasional Premature ventricular complexes Abnormal ECG Confirmed by ANGEL LUIS SOTO, SHASHANK ([id number]), editorial intern VON TY ([id number]) on 10/28/2018 11:22:36 AM Referred By: MARY LOU Confirmed By:SHASHANK HEIN MD
--- NOTE | 2018-10-25 21:05 | ED.DCSUM_ITS ---
History of Present Illness Chief Complaint: Shortness of Breath Detail of Chief Complaint: Respiratory distress Informant: Patient, Significant Other Onset: Days Context: Gradual Onset Timing: Continuous Quality: Difficulty breathing with palpitations Location: Respiratory Current Severity: Severe Maximum Severity: Severe Worsened by: Activity Relieved by: Nothing Associated Symptoms: Fever tonight with rhinorrhea - Past Medical History (1) Acute exacerbation of chronic obstructive pulmonary disease (COPD) Status: Acute (2) Acute on chronic diastolic (congestive) heart failure Status: Acute (3) Aortic valve stenosis, nonrheumatic Status: Acute (4) CAP (community acquired pneumonia) Status: Acute Comment: failed OP therapy with Amoxicillin (5) Hyponatremia Status: Acute (6) Paroxysmal atrial flutter Status: Acute (7) Presence of cardiac pacemaker Status: Acute Past Medical History - Allergies and Home Meds Allergies/Adverse Reactions: Allergies ampicillin Allergy (Verified 10/25/18 20:47) Anaphylaxis codeine Allergy (Verified 10/25/18 20:47) Rash penicillin G Allergy (Verified 10/25/18 20:47) Rash Sulfa (Sulfonamide Antibiotics) Allergy (Verified 10/25/18 20:47) Rash Primary Care Physician: Misael Valencia MD [Primary Care Provider] - Prior records reviewed: Yes Surgical History: appendectomy, cataract Lives: Spouse/ Significant Other Smoking Status: Former smoker Alcohol: None Drugs: None - Family History Paternal Family History: Family History (Last Reviewed 05/20/18 @ 11:27 by Nichole Parks) Brother Diabetes Sister Diabetes Lung cancer Family History: Reports: No pertinent history Offspring Family History: Family History (Last Reviewed 05/20/18 @ 11:27 by Nichole Parks) Brother Diabetes Sister Diabetes Lung cancer Family History: Reports: COPD Sibling Family History: Family History (Last Reviewed 05/20/18 @ 11:27 by Nichole Parks) Brother Diabetes Sister Diabetes Lung cancer Family History: Reports: COPD, Diabetes, Heart Disease Maternal Family History: Family History (Last Reviewed 05/20/18 @ 11:27 by Nichole Parks) Brother Diabetes Sister Diabetes Lung cancer Family History: Reports: Heart Disease, - - osteoporosis Review of Systems ROS: Unable to Obtain - Only able to say 1 or 2 words before gasping for breath. General: Reports: Chills, Fever, Malaise, Subjective, Sweats, - - Informant Eyes: Denies: Visual changes - bilaterally, Diplopia ENT: Reports: Rhinorrhea. Denies: Bilateral ear pain, Sore throat Cardiovascular: Reports: Palpitations, Heart racing. Denies: Chest pain Respiratory: Reports: Dyspnea, Cough, Sputum, Dyspnea on exertion. Denies: Orthopnea, Paroxysmal nocturnal dyspnea Gastrointestinal: Denies: Abdominal pain, Nausea, Vomiting, Diarrhea, Melena, Hematochezia Genitourinary: Denies: Dysuria, Hematuria, Frequency Musculoskeletal: Denies: Back pain, Extremity Pain Skin: Denies: Rash, Wounds Neurological: Denies: Headache, Weakness, Numbness Hematologic: Denies: Easy bruising, Easy bleeding Allergy: Denies: Uticaria Physical Exam Vital Signs/Narrative: Vital Signs Temp Pulse Resp BP Pulse Ox 10/25/18 20:48 100.4 F H 130 H 28 H 163/100 H 94 Inital Vital Signs reviewed: Yes General: Well nourished, Well developed, Acute Distress Head: Normocephalic, Atraumatic Eyes: Perrl, EOMI ENT: Moist mucous membranes, No rhinorrhea Neck: Supple, Nontender Cardiovascular: Irregular, Tachycardia Respiratory: Wheezing, Decreased Air Movement, - Abdomen: Soft, Nontender, Nondistended, Normal bowel sounds, No masses Back: Nontender, Normal Inspection Extremities: Nontender, No edema Skin: Normal color, No rash, Cyanosis Neurological: Alert, Oriented x3, Cranial nerves II-XII grossly intact, Normal Strength, Normal Sensation Psychological: Normal affect, Normal Mood Diagnostic/Tx/Re-eval Chest X-Ray - ED: 1 View, Read by ED Physician, Normal, Heart, Right Infiltrate, Left Infiltrate Chest x-ray reveals bilateral interstitial pneumonia. Radiology report was read and I am in disagreement. Impressions Chest X-Ray 10/25/18 21:10 IMPRESSION: Increased diffuse interstitial findings particularly in the lower and midlung zones becoming somewhat confluent in areas and could be obscuring underlying nodules/nodular infiltrate. Similar interstitial changes of the right lung. Metastatic disease versus pneumonic process versus lymphangitic carcinomatosis. The confluence of opacity in the right lower lung zone is somewhat larger and less well defined. Fairly stable basilar right pleural effusion or pleural thickening. Severe emphysematous changes are apparent in the upper lung zones. Electronically Signed: Umm Jiménez MD at 21:33 EDT , Service support , 10/25/18 21:10 Chest 1 View (Portable) [RAD] Stat 10/25/18 21:55 Mucosa - Nasopharyngeal Influenza Types A,B Direct FA ([facility]) - Final Laboratory Results 10/25/18 10/25/18 10/25/18 21:13 21:30 21:30 WBC 20.1 H RBC 4.48 L Hgb 13.5 Hct 42.1 MCV 94.0 MCH 30.1 MCHC 32.1 RDW 11.8 RDW Differential 39.6 Plt Count 202 MPV 9.3 Immature Gran % (Auto) 0.200 Neut % (Auto) 82.3 H Lymph % (Auto) 9.0 L [place] % (Auto) 7.9 Eos % (Auto) 0.4 Baso % (Auto) 0.2 Absolute Neuts (auto) 16.6 H Absolute Lymphs (auto) 1.80 Total Counted Not Reportable Differential Comment SCANNED Diff Path Review May foll PT 12.8 INR 1.0 APTT 30.8 Specimen Type ART Sample Site L Radial pH 7.20 L Bicarbonate Actual 31.4 H POC Total CO2 34 Base Excess 3 H O2 Saturation 96 O2 % ABG pCO2 79.8 H* ABG pO2 104 H Mo Test POS Respiration Rate O2 Delivery Device NRB Mask Liter Flow 15.0 EPAP IPAP Blood Gas Notified Whom ED Blood Gas Notified Time Sodium Potassium Chloride Carbon Dioxide Anion Gap BUN Creatinine Estim Creat Clear Calc Est GFR (MDRD) Af Amer Est GFR (MDRD) Non-Af BUN/Creatinine Ratio Glucose Lactic Acid Calcium Total Bilirubin AST ALT Alkaline Phosphatase Total Protein Albumin Globulin Albumin/Globulin Ratio 10/25/18 10/25/18 10/25/18 21:30 21:30 22:35 WBC RBC Hgb Hct MCV MCH MCHC RDW RDW Differential Plt Count MPV Immature Gran % (Auto) Neut % (Auto) Lymph % (Auto) [place] % (Auto) Eos % (Auto) Baso % (Auto) Absolute Neuts (auto) Absolute Lymphs (auto) Total Counted Differential Comment Diff Path Review PT INR APTT Specimen Type ART Sample Site R Radial pH 7.30 L Bicarbonate Actual 27.4 H POC Total CO2 29 Base Excess 1 O2 Saturation 95 O2 % 60 ABG pCO2 55.7 H ABG pO2 83 Mo Test POS Respiration Rate 14 O2 Delivery Device Bi / C PAP Liter Flow EPAP 7 IPAP 14 Blood Gas Notified Whom ED Blood Gas Notified Time 2240 Sodium 131 L Potassium 4.1 Chloride 96 L Carbon Dioxide 29.0 Anion Gap 6 BUN 13 Creatinine 0.75 Estim Creat Clear Calc 53.25 Est GFR (MDRD) Af Amer 128 Est GFR (MDRD) Non-Af 106 BUN/Creatinine Ratio 17.3 Glucose 202 H Lactic Acid 1.1 Calcium 8.7 Total Bilirubin 0.50 AST 34 ALT 40 Alkaline Phosphatase 104 Total Protein 7.6 Albumin 3.8 Globulin 3.8 Albumin/Globulin Ratio 1.0 Colon cancer cancer - Rhythm Strip Rhythm Strip: A-fib Rate: 127 Ectopy: None - EKG Initial EKG Interpretation: Atrial Fibrillation - Ventricular rate is 125. There appear to be paced beats. QRS duration is 142 ms. QT interval is normal. [place] is to the left. - Medical Decision Making Patient presents with respiratory symptoms and respiratory distress and febrile. Sepsis workup was undertaken. Concern for pneumonia. Versus COPD. Need to rule out for pneumothorax. Since there is history of cardiac disease need to rule out CHF as well. ABG was obtained and reveals acute respiratory failure with hypercapnia and hypoxia. PH of 7.2, PCO2 79.8, PaO2 104, base excess +3, bicarb 31.4 with 96% saturation on nonrebreather at 15 L. He was treated with 750 mg levofloxacin and 125 mg of Solu-Medrol. He also received DuoNeb and albuterol aerosol treatments. He was placed on BiPAP. He will require adm ission to the ICU. Repeat blood gas reveals improvement of his acute respiratory failure with hypercapnia and hypoxia. Patient was spoken to regarding CODE STATUS. He was spoken to regarding intubation. He states he is having difficulty breathing even on the BiPAP. I was informed when they attempted to get swab for influenza he desaturated to 70%. Since patient remains tachycardic tachypnic he was informed he would be in his best interest to be intubated semi-electively/not emergently. He was told he will be on a ventilator for some time since he has chronic respiratory failure requiring oxygen. was in the room when I had this discussion with Mr. Rodas. In my opinion he has the capacity to make this medical decision. He chose intubation. - Critical Care Time Critical care time (excluding procedures): 30-74 minutes - 42 minutes, Discussing w/Patient &/or Family/Talent Acquisition Administrator, Discussing w/Consultants, Arranging Admission or Transfer, Performing Direct Patient Care at Bedside Procedures Procedure(s): Oral tracheal intubation with a 7.5 [place] endotracheal tube using glide scope. Patient was medicated with 20 mg of etomidate and 100 mg succinylcholine. Since he is hypotensive we will place on fentanyl and Versed drip. He also received a 30 cc/kg bolus of normal saline. ED Disposition - Plan for ED Patient: Disposition: Acute Care Hospital [facility] Diagnosis: Acute respiratory failure with hypoxia and hypercapnia, Bilateral pneumonia, Severe sepsis, Hypotension, Acute exacerbation of chronic obstructive pulmonary disease, Acute on chronic diastolic (congestive) heart failure, Paroxysmal atr ial flutter, Aortic valve disorder, GERD (gastroesophageal reflux disease), Lung cancer, Pulmonary hypertension Referrals: Misael Valencia MD [Primary Care Provider] -
--- NOTE | 2018-10-25 21:10 | RAD_ITS ---
STUDY: X-RAY CHEST REASON FOR EXAM: Male, 83 years old. Fever and respiratory distress. History of COPD and lung cancer 2 years ago. TECHNIQUE: Single AP portable view of the chest. COMPARISON: Prior chest radiograph of June 12, 2017 and FINDINGS: Severe emphysematous changes. Diffuse interstitial abnormality of the mid and lower lung zone on the left side increased from the prior exam. There is a chronic pleural effusion or pleural thickening at the right lung base similar to the prior exam and a larger confluent opacity of the right lower lung zone. Increased interstitial changes of the right mid lung zone. Normal size heart. Right atrial and right ventricular pacemaker leads remain in good position. Obscuration of the underlying pulmonary vascularity. There is atherosclerotic calcification of the aortic arch with tortuosity. Normal visualized ribs, clavicles, and shoulders. There is no demonstrated abnormality of the visualized soft tissue structures of the upper abdomen. RAD/Chest 1 View (Portable) IMPRESSION: Increased diffuse interstitial findings particularly in the lower and midlung zones becoming somewhat confluent in areas and could be obscuring underlying nodules/nodular infiltrate. Similar interstitial changes of the right lung. Metastatic disease versus pneumonic process versus lymphangitic carcinomatosis. The confluence of opacity in the right lower lung zone is somewhat larger and less well defined. Fairly stable basilar right pleural effusion or pleural thickening. Severe emphysematous changes are apparent in the upper lung zones. Electronically Signed: Umm Jiménez MD at 21:33 EDT , Service support ,
[2018-10-25] MEDS: Ipratropium/Albuterol Sulfate 3 ML AMPUL.NEB INHALATION (21:21)
[2018-10-25] MEDS: Albuterol 2.5 MG/3 ML VIAL.NEB. INHALATION ×3 (21:21→22:07)
--- NOTE | 2018-10-25 21:21 | CPS ---
CRITICAL VALUES HANDED TO DR RUIZ 10/25/18 AT [id number]
[2018-10-25 21:45] LABS: Allen Test POS; Base Excess 3 mmol/L (-2 to +2); Bicarbonate 31.4 mmol/L (22-26); Blood Gas Specimen Type ART; O2 Delivery Device NRB Mask; PO2 104 mmHG (75-100); SITE L Radial; SO2 96 % (95-99); Total Carbon Dioxide 34 mmol/L; pCO2 79.8 mmHg (35-45)
[2018-10-25] MEDS: MethylPREDNISolone 125 MG/2 ML Vial IV (21:51)
[2018-10-25 22:02] LABS: Prothrombin Time (Protime)PT. 12.8 SECONDS (11.7-14.9)
[2018-10-25 22:03] LABS: Partial Thromboplast Time 30.8 Seconds (24.1-36.2)
[2018-10-25 22:04] LABS: Absolute Neutrophil Count 16.6 X10^3/uL (2.0-7.7); Basophil# 0.04 X10^3/uL; Basophil% 0.2 % (0-1); Eosinophil# 0.09 X10^3/uL; Eosinophils% 0.4 % (0-5); Hematocrit 42.1 % (40-54); Hemoglobin 13.5 g/dl (13.0-16.5); Mean Corp Hgb Conc 32.1 g/gl (32-36); Mean Corpuscular Hgb 30.1 pg (27.0-32.0); Mean Platelet Vol. 9.3 fl (6.2-12.0); Monocyte# 1.59 X10^3/uL; Monocyte% 7.9 % (0-10); Neutrophil # 16.55 X10^3/uL (2.7-7.7); Neutrophil % 82.3 % (47-70); Platelet Count 202 K/mm3 (150-450); RBC Distribution Width CV 11.8 % (11.6-14.6); RBC Distribution Width SD 39.6 fl (35.1-43.9); Red Blood Count 4.48 M/mm3 (4.6-6.2); White Blood Count 20.1 K/mm3 (4.4-11.0)
[2018-10-25 22:05] LABS: AST(SGOT) 34 U/L (15-37); Alanine Aminotransfer ALT/SGPT 40 U/L (16-61); Albumin, Serum 3.8 g/dL (3.2-5.0); Alkaline Phosphatase 104 U/L (45-117); Anion Gap 6 (5-15); BUN 13 mg/dL (7-18); BUN/Creat Ratio 17.3 RATIO (10-20); Calcium,Total 8.7 mg/dL (8.5-10.1); Chloride 96 mmol/L (98-107); Creatinine, Serum 0.75 mg/dL (0.70-1.30); EST Glomerular Filtration Rate 106 mL/min (>60); Est Glom Filt Rate - Afr Amer 128 mL/min (>60); Estimated Creatinine Clearance 53.25 ml/min; Globulin 3.8 g/dL (2.2-4.2); Glucose 202 mg/dL (74-106); Potassium 4.1 mmol/L (3.5-5.1); Protein, Total 7.6 g/dL (6.4-8.2); Sodium Level 131 mmol/L (136-145)
[2018-10-25] MEDS: levoFLOXacin IV 750 MG/150 ML BAG 100 MG IV (22:06)
[2018-10-25 22:08] LABS: Lactic Acid 1.1 mmol/L (0.4-2.0)
[2018-10-25 22:10] LABS: Differential Indicated SCAN CRITERIA MET; POSITIVE COUNT NO; POSITIVE DIFFERENTIAL YES; POSITIVE MORPHOLOGY NO
[2018-10-25 22:26] LABS: Differential Comment SCANNED
[2018-10-25 22:41] LABS: Allen Test POS; Base Excess 1 mmol/L (-2 to +2); Bicarbonate 27.4 mmol/L (22-26); Blood Gas Specimen Type ART; EPAP 7; FI02 60; IPAP 14; PO2 83 mmHG (75-100); RR 14; SITE R Radial; SO2 95 % (95-99); Time Given 2240; Total Carbon Dioxide 29 mmol/L; pCO2 55.7 mmHg (35-45)
[2018-10-25] MEDS: Etomidate 20 MG/10 ML Vial IV (23:03)
[2018-10-25] MEDS: Succinylcholine Chloride 200 MG/10 ML Vial 100 MG IV (23:04)
--- NOTE | 2018-10-25 23:10 | PCM.HP.STD ---
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 Associated with her symptoms is a productive cough of green sputum. Also patient had a subjective fever. At the emergency department because of impending respiratory failure patient was electively intubated. Patient was taken from patient since patient was intubated at the time of history taking. At emergency department patient was found to have tachycardia; and hypertension. He had a white count of 20.0. His pH was initially 7.30 but it decreased to 7.26. His PCO2 was initially 55.7 but it increased to 57.6. His PO2 initially was 83 but it decreased to 67. At emergency department patient was intubated after receiving etomidate and succinyl choline. Because of hypotension patient was started on Versed drip and fentanyl and not propofol. His chest x-ray was remarkable for bilateral interstitial densities and patchy infiltrates and questionable left midlung peripheral nodular densities. Blood cultures x2 was obtained at the emergency department. Lactic acid was unremarkable. Patient was started on broad-spectrum antibiotics of Levaquin. 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) Chronic respiratory failure (Chronic) COPD (chronic obstructive pulmonary disease) (Chronic) Aortic valve disorder (Chronic) Pulmonary hypertension (Chronic) FH: cardiovascular disease (Chronic) Family history of diabetes mellitus (DM) (Chronic) Colon polyps (Chronic) GERD (gastroesophageal reflux disease) (Chronic) Bullous emphysema (Chronic) Lung cancer (Chronic) HTN (hypertension) (Chronic) Medical History: Medical History (Last Reviewed 10/26/18 @ 01:48 by Jacobo Unger MD) Paroxysmal atrial flutter (Acute) I48.92 Acute on chronic diastolic (congestive) heart failure (Acute) I50.33 Aortic valve stenosis, nonrheumatic (Acute) I35.0 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) I44.1 Chronic respiratory failure (Chronic) J96.10 Dyspnea (Acute) R06.00 COPD (chronic obstructive pulmonary disease) (Chronic) J44.9 Chest pain (Acute) R07.9 Pulmonary congestion (Acute) R09.89 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0 Bullous emphysema (Chronic) J43.9 Lung nodule, solitary (Acute) R91.1 Lung cancer (Chronic) C34.90 HTN (hypertension) (Chronic) I10 Anxiety F41.9 Hemoptysis R04.2 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 Chronic hypoxemic respiratory failure J96.11 Allergies ampicillin Allergy (Verified 10/25/18 20:47) Anaphylaxis codeine Allergy (Verified 10/25/18 20:47) Rash penicillin G Allergy (Verified 10/25/18 20:47) Rash Sulfa (Sulfonamide Antibiotics) Allergy (Verified 10/25/18 20:47) Rash Home Medications: Ambulatory Orders Medication Instructions Recorded Albuterol IH (ProAir) [Proair Hfa] 1 puff INHALATION Q4H PRN PRN 07/10/14 Cholecalciferol (VIT D3) [Vitamin 1,000 unit PO DAILY 06/25/16 D3] Polyethylene Glycol 3350 [Miralax] 17 gm PO DAILY PRN PRN 09/27/16 Acetaminophen [Tylenol Tablet] 650 mg PO Q6H PRN PRN #0 tab 10/24/16 Amlodipine [Norvasc] 5 mg PO DAILY #30 tab 06/12/17 Furosemide [Lasix] 40 mg PO DAILY #30 tab 06/12/17 Losartan Potassium 25 mg PO DAILY #0 06/12/17 umeclidinium 62.5 mcg-vilanterol 1 inh INHALATION Q24H 08/16/17 25 mcg/actuation powdr for inhalation Surgical History: Surgical History (Last Reviewed 10/26/18 @ 01:48 by Jacobo Unger MD) History of permanent cardiac pacemaker placement (Resolved) Z95.0 06/11/17 History of appendectomy Z98.890, Z90.49 Hx of cataract surgery Z98.49 Surgical History: appendectomy, cataract Lives: Spouse/ Significant Other Smoking Status: Former smoker Alcohol: None Drugs: None - *Family History Paternal Family History: Family History (Last Reviewed 10/26/18 @ 01:48 by Jacobo Unger MD) Brother Diabetes Sister Diabetes Lung cancer History Items: No pertinent history Offspring Family History: Family History (Last Reviewed 10/26/18 @ 01:48 by Jacobo Unger MD) Brother Diabetes Sister Diabetes Lung cancer History Items: COPD Sibling Family History: Family History (Last Reviewed 10/26/18 @ 01:48 by Jacobo Unger MD) Brother Diabetes Sister Diabetes Lung cancer History Items: COPD, Diabetes, Heart Disease Maternal Family History: Family History (Last Reviewed 10/26/18 @ 01:48 by Jacobo Unger MD) Brother Diabetes Sister Diabetes Lung cancer History Items: Heart Disease, - - osteoporosis Review of Systems Constitutional: Reports: Fever - Subjective. Denies: Chills, Weight Change HEENT: Denies: Head Aches, Sinus Congestion, Sinus Drainage Cardiovascular: Denies: Chest Pain, Palpitations Respiratory: Reports: Cough, Shortness of breath at rest, Sputum production Gastrointestinal: Denies: Abdominal Pain, Nausea, Vomiting Genitourinary: Denies: Dysuria Musculoskeletal: Denies: Joint Pain, Joint Tenderness Skin: Denies: Rash, Wounds Neurological: Denies: Numbness, Tingling, Focal weakness Psychiatric: Denies: Anxiety, Depression, Homicidal Ideations, Suicidal Ideations Hematologic/ Lymphatic: Denies: Easy Bruising, Easy Bleeding VTE Information - Inpt Only VTE Present on Admission: No VTE Mechan Device Prophylaxis: None VTE Pharm Prophylaxis ordered?: Yes Patient Problems: Active and Suspected Problems (Last Reviewed 10/26/18 @ 01:48 by Jacobo Unger MD) Acute respiratory failure with hypoxia and hypercapnia (Acute) Bilateral pneumonia (Acute) Severe sepsis (Acute) Hypotension (Acute) Paroxysmal atrial flutter (Acute) Acute on chronic diastolic (congestive) heart failure (Acute) Acute exacerbation of chronic obstructive pulmonary disease (Acute) - Physical Exam General: - - Intubated and sedated on mechanical ventilation. On initial examination before intubation patient was alert and oriented x3. HEENT: Atraumatic, Normocephalic Neck: JVD, Bilateral Lungs: Rhonchi - While on mechanical ventilation., Tachypneic Cardiovascular: No murmurs, Tachycardic Abdomen: Bowel Sounds Present, Soft, Distended Extremities: No edema, Capillary Refill Less than 3 Seconds Skin: No rashes, No breakdown Musculoskeletal: No Muscle Wasting Neurological: - - Intubated and sedated on mechanical ventilation. Before intubation patient was alert and he could follow commands. Psych/Mental Status: Anxious - before patient was intubated. Vital Signs Temp Pulse Resp BP Pulse Ox 98.0 F 131 H 16 114/60 95 10/25/18 21:57 10/25/18 23:05 10/25/18 23:05 10/25/18 23:05 10/25/18 23:05 Oxygen Delivery Method Bi-pap Weight: 69.4 kg Body Mass Index (BMI) 23.9 Microbiology Past 72 Hours 10/25/18 21:55 Influenza Types A,B Direct FA (STEVE) - Final Mucosa - Nasopharyngeal Laboratory Tests Past 24 Hrs 10/25/18 10/25/18 10/25/18 21:13 21:30 21:30 WBC 20.1 H RBC 4.48 L Hgb 13.5 Hct 42.1 MCV 94.0 MCH 30.1 MCHC 32.1 RDW 11.8 RDW Differential 39.6 Plt Count 202 MPV 9.3 Immature Gran % (Auto) 0.200 Neut % (Auto) 82.3 H Lymph % (Auto) 9.0 L Hughes % (Auto) 7.9 Eos % (Auto) 0.4 Baso % (Auto) 0.2 Absolute Neuts (auto) 16.6 H Absolute Lymphs (auto) 1.80 Total Counted Not Reportable Differential Comment SCANNED Diff Path Review May foll PT 12.8 INR 1.0 APTT 30.8 Specimen Type ART Sample Site L Radial pH 7.20 L Bicarbonate Actual 31.4 H POC Total CO2 34 Base Excess 3 H O2 Saturation 96 O2 % ABG pCO2 79.8 H* ABG pO2 104 H Mo Test POS Respiration Rate O2 Delivery Device NRB Mask Liter Flow 15.0 EPAP IPAP Blood Gas Notified Whom ED MD Blood Gas Notified Time Sodium Potassium Chloride Carbon Dioxide Anion Gap BUN Creatinine Estim Creat Clear Calc Est GFR (MDRD) Af Amer Est GFR (MDRD) Non-Af BUN/Creatinine Ratio Glucose Lactic Acid Calcium Total Bilirubin AST ALT Alkaline Phosphatase Total Protein Albumin Globulin Albumin/Globulin Ratio 10/25/18 10/25/18 10/25/18 21:30 21:30 22:35 WBC RBC Hgb Hct MCV MCH MCHC RDW RDW Differential Plt Count MPV Immature Gran % (Auto) Neut % (Auto) Lymph % (Auto) Hughes % (Auto) Eos % (Auto) Baso % (Auto) Absolute Neuts (auto) Absolute Lymphs (auto) Total Counted Differential Comment Diff Path Review PT INR APTT Specimen Type ART Sample Site R Radial pH 7.30 L Bicarbonate Actual 27.4 H POC Total CO2 29 Base Excess 1 O2 Saturation 95 O2 % 60 ABG pCO2 55.7 H ABG pO2 83 Mo Test POS Respiration Rate 14 O2 Delivery Device Bi / C PAP Liter Flow EPAP 7 IPAP 14 Blood Gas Notified Whom ED Blood Gas Notified Time 2240 Sodium 131 L Potassium 4.1 Chloride 96 L Carbon Dioxide 29.0 Anion Gap 6 BUN 13 Creatinine 0.75 Estim Creat Clear Calc 53.25 Est GFR (MDRD) Af Amer 128 Est GFR (MDRD) Non-Af 106 BUN/Creatinine Ratio 17.3 Glucose 202 H Lactic Acid 1.1 Calcium 8.7 Total Bilirubin 0.50 AST 34 ALT 40 Alkaline Phosphatase 104 Total Protein 7.6 Albumin 3.8 Globulin 3.8 Albumin/Globulin Ratio 1.0 Assessment/Plan All Active Problems (Last Reviewed 10/26/18 @ 01:48 by Jacobo Unger MD) Acute respiratory failure with hypoxia and hypercapnia (Acute) Bilateral pneumonia (Acute) Severe sepsis (Acute) Hypotension (Acute) Paroxysmal atrial flutter (Acute) Presence of cardiac pacemaker (Acute) Acute on chronic diastolic (congestive) heart failure (Acute) Aortic valve stenosis, nonrheumatic (Acute) History of permanent cardiac pacemaker placement (Resolved) Dyspnea (Acute) Chest pain (Acute) Pulmonary congestion (Acute) Conduction disorder of the heart (Acute) Acute exacerbation of chronic obstructive pulmonary disease (Acute) Acute exacerbation of chronic obstructive pulmonary disease (COPD) (Acute) Drug rash (Acute) Hyperglycemia (Acute) CAP (community acquired pneumonia) (Acute) Hyponatremia (Acute) Dehydration (Acute) Lung nodule, solitary (Acute) The patient is a 83 year old M with a significant medical history of 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 severe sepsis secondary to probable community-acquired pneumonia. Sepsis (fever of 100.4 Fahrenheit; tachycardia with persistent and highest heart rate of 132; tachypnea with highest respiratory rate of 38; systolic blood pressure blood mid 70s personally observed in room before IV bolus was given.) Severe sepsis( blood pressure of mid 70 before IV fluids was given) Lactic acid: Unremarkable CURB 65: 3 (age; respiratory rate; and low blood pressure) Blood culture ?2 is pending Chest x-ray: Independently reviewed showed multifocal bilateral infiltrates and consolidation with flattening of bilateral diaphragm. Review of old records shows that although previous chest x-ray had multifocal infiltrates and consolidation new chest x-ray is worse. Respiratory Gram stain and culture pending Antibiotics: Levaquin was started on 10/25/2018; continue. Patient has anaphylactic reaction to penicillins. MRSA nares ordered IV hydration: Received normal saline of 30 mL's per kilogram per bolus. Because of crackles reported by nursing staff while at ICU maintenance fluid was not started. Of note patient has a history of diastolic heart failure. DuoNeb scheduled. Albuterol as needed Legionella antigen screen and Strep antigen ordered Received Solu-Medrol at the emergency department. We will continue Solu-Medrol especially as patient has a history of COPD and because of the severity of his symptoms. Although patient may be having progression of his lung cancer, because of associated fever and white count it is more probable that his acute condition is because of pneumonia. A central line and A-line were discussed with patient's . Risks and benefits were discussed and patient signed consent. If indicated we will place an A-line and a central line. Patient was placed on the vent at the ED. continue vent at this time. Delinquent Account Clerk consult. Probable exacerbation of COPD Likely due to pneumonia. Breathing treatment and steroid as above History of diastolic heart failure We will hold his home Lasix at this time because of severe sepsis with low blood pressure History of hypertension Because patient was hypotensive on presentation and had severe sepsis we will hold all home blood pressure medications. Trend blood pressures Stress ulcer prophylaxis Pepcid by G-tube. History of lung cancer If acute phase of his severe sepsis is resolved consider revisiting goals of care discussion and further imaging of his lungs if necessary. DVT Prophylaxis Subcutaneous Lovenox ordered. Code Visit Inpatient E&M: 94370 Init Hosp L3
--- NOTE | 2018-10-25 23:10 | PCM.PN.BLA ---
Progress Note Endotracheal Intubation Note Indication: Impending respiratory Failure Performed by: Dr. Jacobo Unger The patient was placed in neutral position. RSI was done using Etomidate and Succinylcholine The patient was initially on bipap. Glidescope was used and inserted into the oropharynx at which time there was a Grade 1 view of the vocal cords. A MAC 4 blade was used. A 7.5-syriac endotracheal tube was inserted and visualized going through the vocal cords. The stylette was removed and cuff was inflated. Colorimetric change was visualized on the CO2 detector. Breath sounds were heard equally in both lung tran. A STAT chest x-ray was ordered to verify endotracheal tube placement. The patient tolerated the procedure well and there were no immediate complications. Code Visit Procedures: [id number] Insert Emergency Airway
[2018-10-25] MEDS: LORazepam 2 MG/ML Syringe 4 MG IV (23:18)
--- NOTE | 2018-10-25 23:24 | RAD_ITS ---
STUDY: X-RAY CHEST REASON FOR EXAM: Male, 83 years old. ET and NG tube placement TECHNIQUE: Single frontal view COMPARISON: October 25, 2018 at 21:09 hours FINDINGS: Endotracheal tube with tip 72 mm above the nicole. Left-sided pacemaker is noted. Nasogastric tube extends into the stomach. The lungs are expanded. Bilateral interstitial densities and patchy infiltrates, similar to the previous study. Stable right pleural effusion. Questionable left mid lung peripheral nodular densities. Normal size heart. Normal mediastinum and rafia. Normal visualized pulmonary arteries. Calcified aortic arch and descending thoracic aorta. Normal visualized thoracic spine. Normal visualized ribs, clavicles, and shoulders. There is no demonstrated abnormality of the visualized soft tissue structures of the upper abdomen. RAD/Chest 1 View (Portable) IMPRESSION: Bilateral interstitial densities and patchy infiltrates, similar to the previous study. Stable right pleural effusion. Questionable left midlung peripheral nodular densities. Electronically Signed: Collin Fields DO at 23:54 EDT Tel [phone], Service support ,
[2018-10-25] MEDS: Etomidate 20 MG/10 ML Vial 10 MG IV (23:25)
[2018-10-25] MEDS: fentaNYL drip 100 ML 2.5 MCG IV (23:42)
[2018-10-26] VITALS (44 sets, daily range): BP systolic 95–142; BP diastolic 48–101; PULSE 74–122; RESP 15–30; TEMP 37.3–37.8; O2SAT 90–100; BMI 25.2
[2018-10-26 00:23] LABS: Bacteria 0 SEEN /hpf (None Seen); Mucous, Urine 0 SEEN /hpf (<or=2+); Squamous Epithelial Cells - UA 0 SEEN /hpf (0-5)
[2018-10-26 00:30] LABS: Allen Test POS; Base Excess -1 mmol/L (-2 to +2); Bicarbonate 25.8 mmol/L (22-26); Blood Gas Specimen Type ART; FI02 60; Mode A-C; O2 Delivery Device Vent; PEEP 5; PO2 67 mmHG (75-100); RR 14; SITE R Radial; SO2 89 % (95-99); Time Given 1230; Total Carbon Dioxide 28 mmol/L; Vt 500; pCO2 57.6 mmHg (35-45); pH 7.26 (7.35-7.45)
[2018-10-26 00:30] LABS: Color, Urine Yellow (Yellow); Glucose, Dipstick Normal (Normal); Ketone-Dipstick 5 mg/dl (Negative); Leukocyte Esterase-Dipstick Negative /ul (Negative); Nitrite-Dipstick Negative (Negative); Occult Blood-Urine 25 /ul (Negative); Protein-Dipstick 100 mg/dl (Negative); Specific Gravity, Urine 1.015 (1.002-1.030); Urine Bilirubin Dipstick Negative (Negative); Urine Clarity Cloudy (Clear); Urine Urobilinogen Normal (Normal)
--- NOTE | 2018-10-26 00:35 | CPS ---
EVA DRAWN. RESULTS TO DR. RUIZ. VENT CHANGES MADE. NURSING MADE AWARE.
[2018-10-26 00:45] LABS: Hyaline Cast 0-5 SEEN /lpf (0-5)
[2018-10-26 00:48] LABS: White Blood Cells 0-5 SEEN /hpf (0-5)
[2018-10-26 00:49] LABS: Renal Epithelial Cells 0-5 SEEN /hpf (0-5)
[2018-10-26 00:52] LABS: Red Blood Cells-Urine 0-5 SEEN /hpf (0-5)
[2018-10-26 00:54] LABS: White Cell Cast 0-5 SEEN /lpf (None Seen)
[2018-10-26 02:17] LABS: Magnesium 1.9 mg/dL (1.6-2.6)
[2018-10-26 02:35] LABS: Phosphorus 4.1 mg/dL (2.5-4.9)
[2018-10-26 02:56] LABS: Base Excess -1 mmol/L (-2 to +2); Bicarbonate 25.8 mmol/L (22-26); Blood Gas Specimen Type ART; FI02 60; Mode A-C; O2 Delivery Device Vent; PEEP 8; PO2 70 mmHG (75-100); RR 16; SITE L Radial; SO2 92 % (95-99); Time Given 245; Total Carbon Dioxide 27 mmol/L; Vt 500; pCO2 52.5 mmHg (35-45)
[2018-10-26 05:06] LABS: Anion Gap 8 (5-15); BUN 16 mg/dL (7-18); BUN/Creat Ratio 18.9 RATIO (10-20); Chloride 101 mmol/L (98-107); Creatinine, Serum 0.85 mg/dL (0.70-1.30); EST Glomerular Filtration Rate 92 mL/min (>60); Est Glom Filt Rate - Afr Amer 111 mL/min (>60); Estimated Creatinine Clearance 62.64 ml/min; Glucose 248 mg/dL (74-106); Potassium 4.6 mmol/L (3.5-5.1); Sodium Level 137 mmol/L (136-145)
[2018-10-26] MEDS: 0.9% NaCl Peripheral Flush Adult/Peds IV (05:16)
[2018-10-26 05:26] LABS: Absolute Lymphocyte Count 0.37 X10^3/ul (0.83-4.51); Absolute Neutrophil Count 10.7 X10^3/uL (2.0-7.7); Basophil# 0.01 X10^3/uL; Basophil% 0.1 % (0-1); Differential Indicated SCAN CRITERIA MET; Eosinophil# 0.01 X10^3/uL; Eosinophils% 0.1 % (0-5); Hematocrit 35.1 % (40-54); Hemoglobin 11.1 g/dl (13.0-16.5); Lymphocyte # 0.37 X10^3/ul (4.0); Lymphocyte % 3.2 % (19-41); Mean Corp Hgb Conc 31.6 g/gl (32-36); Mean Corpuscular Hgb 29.8 pg (27.0-32.0); Mean Corpuscular Volume 94.4 fL (80-94); Mean Platelet Vol. 9.4 fl (6.2-12.0); Monocyte# 0.33 X10^3/uL; Monocyte% 2.9 % (0-10); Neutrophil # 10.74 X10^3/uL (2.7-7.7); Neutrophil % 93.4 % (47-70); POSITIVE COUNT NO; POSITIVE DIFFERENTIAL YES; POSITIVE MORPHOLOGY NO; Platelet Count 162 K/mm3 (150-450); RBC Distribution Width CV 11.9 % (11.6-14.6); RBC Distribution Width SD 40.4 fl (35.1-43.9); Red Blood Count 3.72 M/mm3 (4.6-6.2); White Blood Count 11.5 K/mm3 (4.4-11.0)
--- NOTE | 2018-10-26 07:01 | CON.PCM_ITS ---
Problem List (1) Acute respiratory failure with hypoxia and hypercapnia Status: Acute (2) Bilateral pneumonia Status: Acute (3) Severe sepsis Status: Acute (4) Paroxysmal atrial flutter Status: Acute (5) Presence of cardiac pacemaker Status: Acute (6) Non-rheumatic tricuspid valve insufficiency Status: Chronic (7) Diastolic dysfunction Status: Chronic (8) Aortic valve stenosis, nonrheumatic Status: Acute (9) History of permanent cardiac pacemaker placement Status: Resolved Comment: 06/11/17 (10) COPD (chronic obstructive pulmonary disease) Status: Chronic Qualifiers: COPD type: unspecified COPD Qualified Code(s): J44.9 - Chronic obstructive pulmonary disease, unspecified (11) Pulmonary hypertension Status: Chronic (12) Acute exacerbation of chronic obstructive pulmonary disease (COPD) Status: Acute (13) GERD (gastroesophageal reflux disease) Status: Chronic Qualifiers: Esophagitis presence: esophagitis presence not specified Qualified Code(s): K21.9 - Gastro-esophageal reflux disease without esophagitis Reason for Consult Date of Consultation: 10/26/18 Reason for Consultation: Respiratory failure History of Present Illness: The patient is a 83 year old M, with past medical history listed below, who presented to [facility] on 10/25/2018 secondary to a 1-2-week history of progressive shortness of breath, cough productive of green sputum and subjective fever. On arrival to the emergency department, patient was noted to be tachycardic, hypertensive and tachypneic. Patient was initially placed on BiPAP therapy, but was unable to tolerate. Patient continued to decompensate and was intubated. Patient had had some hypotension, so was placed on a Versed drip. Patient was admitted to the intensive care unit for further monitoring. Patient does have an extensive pulmonary and cardiac history. Patient is currently intubated and on vent unable to provide any further history. Review of the electronic medical record shows patient does have a history of lung carcinoma status post radiation, moderately severe COPD is diagnosed in 2009 and chronic oxygen requirements of 3-4 L/min. Patient just recently established with our office as an outpatient and had been referred to palliative care for symptom control. 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) Chronic respiratory failure (Chronic) COPD (chronic obstructive pulmonary disease) (Chronic) Aortic valve disorder (Chronic) Pulmonary hypertension (Chronic) FH: cardiovascular disease (Chronic) Family history of diabetes mellitus (DM) (Chronic) Colon polyps (Chronic) GERD (gastroesophageal reflux disease) (Chronic) Bullous emphysema (Chronic) Lung cancer (Chronic) HTN (hypertension) (Chronic) Medical History: Medical History (Last Reviewed 10/26/18 @ 01:48 by Jaocbo Unger MD) Paroxysmal atrial flutter (Acute) I48.92 Acute on chronic diastolic (congestive) heart failure (Acute) I50.33 Aortic valve stenosis, nonrheumatic (Acute) I35.0 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) I44.1 Chronic respiratory failure (Chronic) J96.10 Dyspnea (Acute) R06.00 COPD (chronic obstructive pulmonary disease) (Chronic) J44.9 Chest pain (Acute) R07.9 Pulmonary congestion (Acute) R09.89 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0 Bullous emphysema (Chronic) J43.9 Lung nodule, solitary (Acute) R91.1 Lung cancer (Chronic) C34.90 HTN (hypertension) (Chronic) I10 Anxiety F41.9 Hemoptysis R04.2 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 Chronic hypoxemic respiratory failure J96.11 Allergies ampicillin Allergy (Verified 10/25/18 20:47) Anaphylaxis codeine Allergy (Verified 10/25/18 20:47) Rash penicillin G Allergy (Verified 10/25/18 20:47) Rash Sulfa (Sulfonamide Antibiotics) Allergy (Verified 10/25/18 20:47) Rash Home Medications: Ambulatory Orders Medication Instructions Recorded Albuterol IH (ProAir) [Proair Hfa] 1 puff INHALATION Q4H PRN PRN 07/10/14 Cholecalciferol (VIT D3) [Vitamin 1,000 unit PO DAILY 06/25/16 D3] Polyethylene Glycol 3350 [Miralax] 17 gm PO DAILY PRN PRN 09/27/16 Acetaminophen [Tylenol Tablet] 650 mg PO Q6H PRN PRN #0 tab 10/24/16 Amlodipine [Norvasc] 5 mg PO DAILY #30 tab 06/12/17 Furosemide [Lasix] 40 mg PO DAILY #30 tab 06/12/17 Losartan Potassium 25 mg PO DAILY #0 06/12/17 umeclidinium 62.5 mcg-vilanterol 1 inh INHALATION Q24H 08/16/17 25 mcg/actuation powdr for inhalation Surgical History: Surgical History (Last Reviewed 10/26/18 @ 01:48 by Jacobo Unger MD) History of permanent cardiac pacemaker placement (Resolved) Z95.0 06/11/17 History of appendectomy Z98.890, Z90.49 Hx of cataract surgery Z98.49 Surgical History: appendectomy, cataract Lives: Spouse/ Significant Other Smoking Status: Former smoker Alcohol: None Drugs: None - *Family History Paternal Family History: Family History (Last Reviewed 10/26/18 @ 01:48 by Jacobo Unger MD) Brother Diabetes Sister Diabetes Lung cancer History Items: No pertinent history Offspring Family History: Family History (Last Reviewed 10/26/18 @ 01:48 by Jacobo Unger MD) Brother Diabetes Sister Diabetes Lung cancer History Items: COPD Sibling Family History: Family History (Last Reviewed 10/26/18 @ 01:48 by Jacobo Unger MD) Brother Diabetes Sister Diabetes Lung cancer History Items: COPD, Diabetes, Heart Disease Maternal Family History: Family History (Last Reviewed 10/26/18 @ 01:48 by Jacobo Unger MD) Brother Diabetes Sister Diabetes Lung cancer History Items: Heart Disease, - - osteoporosis Review of Systems Unable to obtain accurate/complete ROS d/t: Intubated and sedated Patient Problems: Active and Suspected Problems (Last Reviewed 10/26/18 @ 01:48 by Jacobo Unger MD) Acute respiratory failure with hypoxia and hypercapnia (Acute) Bilateral pneumonia (Acute) Severe sepsis (Acute) Hypotension (Acute) Paroxysmal atrial flutter (Acute) Acute on chronic diastolic (congestive) heart failure (Acute) Acute exacerbation of chronic obstructive pulmonary disease (Acute) Objective: Chest x-ray is suggestive of acute on chronic bilateral infiltrates. Endotracheal tube is slightly high. Complete PFT (11/23/2009): Irreversible moderately severe large airways obstructive ventilatory defect resulting in hyperinflation and a symmetric reduction diffusion capacity (FVC 95%, FEV1 59%, TLC 125%, DLCO 32%) Echocardiogram (07/02/2018): EF 65% with moderate to severe mitral annular calcification and a right ventricular systolic pressure of 58 mmHg. - Physical Exam General: - - Intubated and sedated. Good vent synchrony noted. Appears stated age. No diaphoresis noted. HEENT: Atraumatic, PERRLA, EOMI, Normocephalic, - - No scleral icterus or injection noted. Oral: Moist Mucosa, No Gingival or Mucosal Lesions/ Ulcerations Neck: Supple, No JVD, No Nodes, Trachea Midline Lungs: No rhonchi, No rales, Diminished, Wheezes, - - Symmetric expansion. No dullness to percussion. Cardiovascular: Regular rate, Regular Rhythm, Normal S1, Normal S2, Murmur - Grade 2 out of 6 systolic ejection murmur at the apex, No rub noted, No Gallop, - - Paced rhythm noted on telemetry Abdomen: Bowel Sounds Present, Soft, Non Tender, Non-Distended Extremities: No cyanosis, Clubbing, Edema - Trace lower extremity Musculoskeletal: No Tenderness to Palpation of Joints or Extremities Lymphatic: No Cervical, Supraclavicular, or Inguinal Adenopathy Neurological: Cranial nerves II-XII grossly intact, Neuro grossly intact Psych/Mental Status: Appropriate, Flat Affect Vital Signs Temp Pulse Resp BP Pulse Ox 37.3 C H 76 19 H 112/60 97 10/26/18 06:00 10/26/18 06:00 10/26/18 06:00 10/26/18 06:00 10/26/18 06:00 Oxygen Flow Rate (L/min) 60 Oxygen Delivery Method Mechanical Ventilator Weight: 72.9 kg Body Mass Index (BMI) 25.2 Intake and Output for Last 24 Hours 10/24/18 10/25/18 10/26/18 23:59 23:59 23:59 Intake Total Output Total 200 / 200 Balance -177 / -177 Microbiology Past 72 Hours 10/26/18 00:10 Streptococcus pneumoniae Antigen (M - Final Urine Catheter - [place] 10/26/18 00:10 Legionella Antigen - Final Urine Catheter - [place] 10/25/18 21:55 Influenza Types A,B Direct FA (STEVE) - Final Mucosa - Nasopharyngeal Laboratory Tests Past 24 Hrs 10/25/18 10/25/18 10/25/18 21:13 21:30 21:30 WBC 20.1 H RBC 4.48 L Hgb 13.5 Hct 42.1 MCV 94.0 MCH 30.1 MCHC 32.1 RDW 11.8 RDW Differential 39.6 Plt Count 202 MPV 9.3 Immature Gran % (Auto) 0.200 Neut % (Auto) 82.3 H Lymph % (Auto) 9.0 L [place] % (Auto) 7.9 Eos % (Auto) 0.4 Baso % (Auto) 0.2 Absolute Neuts (auto) 16.6 H Absolute Lymphs (auto) 1.80 Total Counted Not Reportable Differential Comment SCANNED Diff Path Review December PT 12.8 INR 1.0 APTT 30.8 Specimen Type ART Sample Site L Radial pH 7.20 L Bicarbonate Actual 31.4 H POC Total CO2 34 Base Excess 3 H O2 Saturation 96 O2 % ABG pCO2 79.8 H* ABG pO2 104 H Mo Test POS Respiration Rate O2 Delivery Device NRB Mask Liter Flow 15.0 Minute Volume Vent Mode Tidal Volume POC PEEP EPAP IPAP Blood Gas Notified Whom ED Blood Gas Notified Time Sodium Potassium Chloride Carbon Dioxide Anion Gap BUN Creatinine Estim Creat Clear Calc Est GFR (MDRD) Af Amer Est GFR (MDRD) Non-Af BUN/Creatinine Ratio Glucose Lactic Acid Calcium Phosphorus Magnesium Total Bilirubin AST ALT Alkaline Phosphatase Total Protein Albumin Globulin Albumin/Globulin Ratio Urine Color Urine Clarity Urine pH Ur Specific Whe[place] Urine Protein Urine Glucose (UA) Urine Ketones Urine Occult Blood Urine Nitrite Urine Bilirubin Urine Urobilinogen Ur Leukocyte Esterase Urine RBC Urine WBC Ur Squamous Epith Cells Ur Renal Epithelial Cell Urine Bacteria Hyaline Casts WBC Casts Urine Mucus MRSA (PCR) 10/25/18 10/25/18 10/25/18 21:30 21:30 21:30 WBC RBC Hgb Hct MCV MCH MCHC RDW RDW Differential Plt Count MPV Immature Gran % (Auto) Neut % (Auto) Lymph % (Auto) [place] % (Auto) Eos % (Auto) Baso % (Auto) Absolute Neuts (auto) Absolute Lymphs (auto) Total Counted Differential Comment Diff Path Review PT INR APTT Specimen Type Sample Site pH Bicarbonate Actual POC Total CO2 Base Excess O2 Saturation O2 % ABG pCO2 ABG pO2 Mo Test Respiration Rate O2 Delivery Device Liter Flow Minute Volume Vent Mode Tidal Volume POC PEEP EPAP IPAP Blood Gas Notified Whom Blood Gas Notified Time Sodium 131 L Potassium 4.1 Chloride 96 L Carbon Dioxide 29.0 Anion Gap 6 BUN 13 Creatinine 0.75 Estim Creat Clear Calc 53.25 Est GFR (MDRD) Af Amer 128 Est GFR (MDRD) Non-Af 106 BUN/Creatinine Ratio 17.3 Glucose 202 H Lactic Acid 1.1 Calcium 8.7 Phosphorus Magnesium 1.9 Total Bilirubin 0.50 AST 34 ALT 40 Alkaline Phosphatase 104 Total Protein 7.6 Albumin 3.8 Globulin 3.8 Albumin/Globulin Ratio 1.0 Urine Color Urine Clarity Urine pH Ur Specific [place] Urine Protein Urine Glucose (UA) Urine Ketones Urine Occult Blood Urine Nitrite Urine Bilirubin Urine Urobilinogen Ur Leukocyte Esterase Urine RBC Urine WBC Ur Squamous Epith Cells Ur Renal Epithelial Cell Urine Bacteria Hyaline Casts WBC Casts Urine Mucus MRSA (PCR) 10/25/18 10/25/18 10/26/18 21:30 22:35 00:10 WBC RBC Hgb Hct MCV MCH MCHC RDW RDW Differential Plt Count MPV Immature Gran % (Auto) Neut % (Auto) Lymph % (Auto) [place] % (Auto) Eos % (Auto) Baso % (Auto) Absolute Neuts (auto) Absolute Lymphs (auto) Total Counted Differential Comment Diff Path Review PT INR APTT Specimen Type ART Sample Site R Radial pH 7.30 L Bicarbonate Actual 27.4 H POC Total CO2 29 Base Excess 1 O2 Saturation 95 O2 % 60 ABG pCO2 55.7 H ABG pO2 83 Mo Test POS Respiration Rate 14 O2 Delivery Device Bi / C PAP Liter Flow Minute Volume Vent Mode Tidal Volume POC PEEP EPAP 7 IPAP 14 Blood Gas Notified Whom ED Blood Gas Notified Time 2240 Sodium Potassium Chloride Carbon Dioxide Anion Gap BUN Creatinine Estim Creat Clear Calc Est GFR (MDRD) Af Amer Est GFR (MDRD) Non-Af BUN/Creatinine Ratio Glucose Lactic Acid Calcium Phosphorus 4.1 Magnesium Total Bilirubin AST ALT Alkaline Phosphatase Total Protein Albumin Globulin Albumin/Globulin Ratio Urine Color Yellow Urine Clarity Cloudy Urine pH 7.0 Ur Specific [place] 1.015 Urine Protein 100 H Urine Glucose (UA) Normal Urine Ketones 5 H Urine Occult Blood 25 H Urine Nitrite Negative Urine Bilirubin Negative Urine Urobilinogen Normal Ur Leukocyte Esterase Negative Urine RBC 0-5 SEEN Urine WBC 0-5 SEEN Ur Squamous Epith Cells 0 SEEN Ur Renal Epithelial Cell 0-5 SEEN Urine Bacteria 0 SEEN Hyaline Casts 0-5 SEEN WBC Casts 0-5 SEEN Urine Mucus 0 SEEN MRSA (PCR) 10/26/18 10/26/18 10/26/18 00:26 02:51 04:40 WBC 11.5 H RBC 3.72 L Hgb 11.1 L Hct 35.1 L MCV 94.4 H MCH 29.8 MCHC 31.6 L RDW 11.9 RDW Differential 40.4 Plt Count 162 MPV 9.4 Immature Gran % (Auto) 0.300 Neut % (Auto) 93.4 H Lymph % (Auto) 3.2 L [place] % (Auto) 2.9 Eos % (Auto) 0.1 Baso % (Auto) 0.1 Absolute Neuts (auto) 10.7 H Absolute Lymphs (auto) 0.37 L Total Counted Not Reportable Differential Comment Diff Path Review PT INR APTT Specimen Type ART ART Sample Site R Radial L Radial pH 7.26 L 7.30 L Bicarbonate Actual 25.8 25.8 POC Total CO2 28 27 Base Excess -1 -1 O2 Saturation 89 L 92 L O2 % 60 60 ABG pCO2 57.6 H 52.5 H ABG pO2 67 L 70 L Mo Test POS Respiration Rate 14 16 O2 Delivery Device Vent Vent Liter Flow Minute Volume 11.00 Vent Mode A-C A-C Tidal Volume 500 500 POC PEEP 5 8 EPAP IPAP Blood Gas Notified Whom ED HOSP Blood Gas Notified Time 1230 245 Sodium Potassium Chloride Carbon Dioxide Anion Gap BUN Creatinine Estim Creat Clear Calc Est GFR (MDRD) Af Amer Est GFR (MDRD) Non-Af BUN/Creatinine Ratio Glucose Lactic Acid Calcium Phosphorus Magnesium Total Bilirubin AST ALT Alkaline Phosphatase Total Protein Albumin Globulin Albumin/Globulin Ratio Urine Color Urine Clarity Urine pH Ur Specific [place] Urine Protein Urine Glucose (UA) Urine Ketones Urine Occult Blood Urine Nitrite Urine Bilirubin Urine Urobilinogen Ur Leukocyte Esterase Urine RBC Urine WBC Ur Squamous Epith Cells Ur Renal Epithelial Cell Urine Bacteria Hyaline Casts WBC Casts Urine Mucus MRSA (PCR) 10/26/18 10/26/18 04:40 04:40 WBC RBC Hgb Hct MCV MCH MCHC RDW RDW Differential Plt Count MPV Immature Gran % (Auto) Neut % (Auto) Lymph % (Auto) [place] % (Auto) Eos % (Auto) Baso % (Auto) Absolute Neuts (auto) Absolute Lymphs (auto) Total Counted Differential Comment Diff Path Review PT INR APTT Specimen Type Sample Site pH Bicarbonate Actual POC Total CO2 Base Excess O2 Saturation O2 % ABG pCO2 ABG pO2 Mo Test Respiration Rate O2 Delivery Device Liter Flow Minute Volume Vent Mode Tidal Volume POC PEEP EPAP IPAP Blood Gas Notified Whom Blood Gas Notified Time Sodium 137 Potassium 4.6 Chloride 101 Carbon Dioxide 28.0 Anion Gap 8 BUN 16 Creatinine 0.85 Estim Creat Clear Calc 62.64 Est GFR (MDRD) Af Amer 111 Est GFR (MDRD) Non-Af 92 BUN/Creatinine Ratio 18.9 Glucose 248 H Lactic Acid Calcium 8.0 L Phosphorus Magnesium Total Bilirubin AST ALT Alkaline Phosphatase Total Protein Albumin Globulin Albumin/Globulin Ratio Urine Color Urine Clarity Urine pH Ur Specific [place] Urine Protein Urine Glucose (UA) Urine Ketones Urine Occult Blood Urine Nitrite Urine Bilirubin Urine Urobilinogen Ur Leukocyte Esterase Urine RBC Urine WBC Ur Squamous Epith Cells Ur Renal Epithelial Cell Urine Bacteria Hyaline Casts WBC Casts Urine Mucus MRSA (PCR) Pending Clinical Impression(s) from Imaging Studies Chest X-Ray 10/25/18 21:10 IMPRESSION: Increased diffuse interstitial findings particularly in the lower and midlung zones becoming somewhat confluent in areas and could be obscuring underlying nodules/nodular infiltrate. Similar interstitial changes of the right lung. Metastatic disease versus pneumonic process versus lymphangitic carcinomatosis. The confluence of opacity in the right lower lung zone is somewhat larger and less well defined. Fairly stable basilar right pleural effusion or pleural thickening. Severe emphysematous changes are apparent in the upper lung zones. Electronically Signed: Umm Jiménez MD at 21:33 EDT , Service support , Chest X-Ray 10/25/18 23:24 IMPRESSION: Bilateral interstitial densities and patchy infiltrates, similar to the previous study. Stable right pleural effusion. Questionable left midlung peripheral nodular densities. Electronically Signed: Collin Donnie, at 23:54 EDT Tel [phone], Service support , Assessment/Plan Active and Suspected Problems (Last Reviewed 10/26/18 @ 01:48 by Jacobo ulrich MD) Acute respiratory failure with hypoxia and hypercapnia (Acute) Bilateral pneumonia (Acute) Severe sepsis (Acute) Hypotension (Acute) Paroxysmal atrial flutter (Acute) Acute on chronic diastolic (congestive) heart failure (Acute) Acute exacerbation of chronic obstructive pulmonary disease (Acute) RECOMMENDATIONS: 1. Await respiratory viral panel 2. Continue mechanical ventilation, bronchodilators and IV steroids 3. Spontaneous breathing and awakening trials per protocol 4. Home hold Lasix therapy given hypotension 5. Initiate tube feeds IMPRESSIONS: 1. Acute on chronic combined respiratory failure secondary to probable community-acquired pneumonia Patient currently intubated and initial ABG showed CO2 retention and hypoxemia. Patient currently on Levaquin. Vancomycin can be added if MRSA swab comes back positive. Patient also has a viral panel pending. Continue with bronchodilators and IV steroids. Spontaneous breathing and awakening trials per protocol. Sedation and pain control as necessary. Patient does have relatively advanced COPD by PFT criteria almost 10 years ago. Patient likely has progressed since this time. Will initiate tube feeds. Anticipate protracted course. 2. 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 Patient was hypotensive on presentation, but this may have been medication effect. Will hold patient's Lasix for now. Other antihypertensives will also be held. Patient does have a paced rhythm and appears to be appropriate. Will hold off on interrogation of pacemaker as this was just completed in August. 3. Pulmonary hypertension/history of lung cancer/hypertension/hyperlipidemia/advanced age Complicates care, management, recovery and prognosis. Antihypertensives and statin have been held. Maintain saturations to allow for decrease in pulmonary artery pressures. Have not discussed with family at this time, but patient is reportedly a full code. TIME: 35 minutes critical care time spent addressing patient's acute on chronic respiratory failure, congestive heart failure, pulmonary hypertension, review of all data and collaboration with care team. (6 AM to 7 AM) Code Visit 9xxxx: [id number] Critical care first hour
[2018-10-26 07:18] LABS: M R Staph aureus DNA By PCR Negative (Negative)
[2018-10-26 07:19] LABS: Probe Check PASS; Specimen Processing Control PASS
[2018-10-26] MEDS: Ipratropium/Albuterol Sulfate 3 ML AMPUL.NEB INHALATION ×4 (07:31→19:10)
--- NOTE | 2018-10-26 08:21 | PCM.PN.HOSP ---
Patient Problems: Active and Suspected Problems (Last Reviewed 10/26/18 @ 01:48 by Jacobo Unger MD) Acute respiratory failure with hypoxia and hypercapnia (Acute) Bilateral pneumonia (Acute) Severe sepsis (Acute) Hypotension (Acute) Paroxysmal atrial flutter (Acute) Acute on chronic diastolic (congestive) heart failure (Acute) Acute exacerbation of chronic obstructive pulmonary disease (Acute) Subjective: The patient is intubated. Blood pressure is controlled. T-max 99.3 Fahrenheit. Patient on 50% FiO2/TV 500 mL/8 PEEP. Patient spontaneous breathing 17-19/min. Vitals/I&O's: Vital Signs Temp Pulse Resp BP Pulse Ox 99.3 F H 85 19 H 122/62 H 95 10/26/18 08:00 10/26/18 08:00 10/26/18 08:00 10/26/18 08:00 10/26/18 08:00 Oxygen Flow Rate (L/min) 60 Oxygen Delivery Method Mechanical Ventilator Weight: 160 lb 11.472 oz Body Mass Index (BMI) 25.2 Intake and Output for Last 24 Hours 10/24/18 10/25/18 10/26/18 23:59 23:59 23:59 Intake Total Output Total 200 / 200 Balance -177 / -177 General: Lethargic, - - Open size. HEENT: Atraumatic, PERRLA, EOMI, Normocephalic Oral: - Neck: Supple - Intubated, No JVD, Negative Carotid Bruits Lungs: Diminished, - - On vent support Cardiovascular: Regular rate, Regular Rhythm, Normal S1, Normal S2, No murmurs Abdomen: Bowel Sounds Present, Soft, Non Tender, Non-Distended, - - Dark yellow urine. Monzon catheter. No pus flecks Extremities: No edema, Capillary Refill Less than 3 Seconds Skin: No rashes, No breakdown Musculoskeletal: No Tenderness to Palpation of Joints or Extremities, Arthritic Changes Lymphatic: No Cervical, Supraclavicular, or Inguinal Adenopathy Neurological: Cranial nerves II-XII grossly intact, Neuro grossly intact Microbiology Past 72 Hours 10/26/18 00:10 Urine Catheter - Monzon Streptococcus pneumoniae Antigen (M - Final 10/26/18 00:10 Urine Catheter - [place] Legionella Antigen - Final 10/25/18 21:55 Mucosa - Nasopharyngeal Influenza Types A,B Direct FA ([facility]) - Final Laboratory Results 10/25/18 21:13: Specimen Type ART, Sample Site L Radial, pH 7.20 L, Bicarbonate Actual 31.4 H, POC Total CO2 34, Base Excess 3 H, O2 Saturation 96, ABG pCO2 79.8 H*, ABG pO2 104 H, Mo Test POS, O2 Delivery Device NRB Mask, Liter Flow 15.0, Blood Gas Notified Whom ED MD 10/25/18 21:30: WBC 20.1 H, RBC 4.48 L, Hgb 13.5, Hct 42.1, MCV 94.0, MCH 30.1, MCHC 32.1, RDW 11.8, RDW Differential 39.6, Plt Count 202, MPV 9.3, Immature Gran % (Auto) 0.200, Neut % (Auto) 82.3 H, Lymph % (Auto) 9.0 L, [place] % (Auto) 7.9, Eos % (Auto) 0.4, Baso % (Auto) 0.2, Absolute Neuts (auto) 16.6 H, Absolute Lymphs (auto) 1.80, Total Counted Not Reportable, Differential Comment SCANNED, Diff Path Review December foll 10/25/18 21:30: PT 12.8, INR 1.0, APTT 30.8 10/25/18 21:30: Sodium 131 L, Potassium 4.1, Chloride 96 L, Carbon Dioxide 29.0, Anion Gap 6, BUN 13, Creatinine 0.75, Estim Creat Clear Calc 53.25, Est GFR (MDRD) Af Amer 128, Est GFR (MDRD) Non-Af 106, BUN/Creatinine Ratio 17.3, Glucose 202 H, Calcium 8.7, Total Bilirubin 0.50, AST 34, ALT 40, Alkaline Phosphatase 104, Total Protein 7.6, Albumin 3.8, Globulin 3.8, Albumin/Globulin Ratio 1.0 10/25/18 21:30: Lactic Acid 1.1 10/25/18 21:30: Magnesium 1.9 10/25/18 21:30: Phosphorus 4.1 10/25/18 22:35: Specimen Type ART, Sample Site R Radial, pH 7.30 L, Bicarbonate Actual 27.4 H, POC Total CO2 29, Base Excess 1, O2 Saturation 95, O2 % 60, ABG pCO2 55.7 H, ABG pO2 83, Mo Test POS, Respiration Rate 14, O2 Delivery Device Bi / C PAP, EPAP 7, IPAP 14, Blood Gas Notified Whom ED , Blood Gas Notified Time 22410/26/18 00:10: Urine Color Yellow, Urine Clarity Cloudy, Urine pH 7.0, Ur Specific [place] 1.015, Urine Protein 100 H, Urine Glucose (UA) Normal, Urine Ketones 5 H, Urine Occult Blood 25 H, Urine Nitrite Negative, Urine Bilirubin Negative, Urine Urobilinogen Normal, Ur Leukocyte Esterase Negative, Urine RBC 0-5 SEEN, Urine WBC 0-5 SEEN, Ur Squamous Epith Cells 0 SEEN, Ur Renal Epithelial Cell 0-5 SEEN, Urine Bacteria 0 SEEN, Hyaline Casts 0-5 SEEN, WBC Casts 0-5 SEEN, Urine Mucus 0 SEEN 10/26/18 00:26: Specimen Type ART, Sample Site R Radial, pH 7.26 L, Bicarbonate Actual 25.8, POC Total CO2 28, Base Excess -1, O2 Saturation 89 L, O2 % 60, ABG pCO2 57.6 H, ABG pO2 67 L, Mo Test POS, Respiration Rate 14, O2 Delivery Device Vent, Vent Mode A-C, Tidal Volume 500, POC PEEP 5, Blood Gas Notified Whom ED , Blood Gas Notified Time 12310/26/18 02:51: Specimen Type ART, Sample Site L Radial, pH 7.30 L, Bicarbonate Actual 25.8, POC Total CO2 27, Base Excess -1, O2 Saturation 92 L, O2 % 60, ABG pCO2 52.5 H, ABG pO2 70 L, Respiration Rate 16, O2 Delivery Device Vent, Minute Volume 11.00, Vent Mode A-C, Tidal Volume 500, POC PEEP 8, Blood Gas Notified Whom HOSP , Blood Gas Notified Time 245 10/26/18 04:40: WBC 11.5 H, RBC 3.72 L, Hgb 11.1 L, Hct 35.1 L, MCV 94.4 H, MCH 29.8, MCHC 31.6 L, RDW 11.9, RDW Differential 40.4, Plt Count 162, MPV 9.4, Immature Gran % (Auto) 0.300, Neut % (Auto) 93.4 H, Lymph % (Auto) 3.2 L, [place] % (Auto) 2.9, Eos % (Auto) 0.1, Baso % (Auto) 0.1, Absolute Neuts (auto) 10.7 H, Absolute Lymphs (auto) 0.37 L, Total Counted Not Reportable, Differential Comment 10/26/18 04:40: Sodium 137, Potassium 4.6, Chloride 101, Carbon Dioxide 28.0, Anion Gap 8, BUN 16, Creatinine 0.85, Estim Creat Clear Calc 62.64, Est GFR (MDRD) Af Amer 111, Est GFR (MDRD) Non-Af 92, BUN/Creatinine Ratio 18.9, Glucose 248 H, Calcium 8.0 L 10/26/18 04:40: MRSA (PCR) Negative Current Medications Acetaminophen (Tylenol) 650 mg PO Q6H PRN PRN PRN Reason: Mild Pain (scale 0-3)/T>100.7 Albuterol Sulfate (Ventolin Aerosols) 2.5 mg INHALATION Q2H PRN PRN PRN Reason: sob/wheezing Albuterol/Ipratropium (Duoneb) 3 ml INHALATION Q4HWA.RT [facility] Last Admin: 10/26/18 07:31 Dose: 3 ml Chlorhexidine Gluconate () 15 ml PO BID WEI Enoxaparin Sodium (Lovenox) 40 mg SC DAILY@1000 [facility] Famotidine (Pepcid) 20 mg GT BID WEI Fentanyl () 100 mls @ 2.5 mls/hr IV .Q40H [facility] Last Admin: 10/25/18 23:42 Dose: 2.5 mls/hr Sodium Chloride () 250 mls @ 15 mls/hr IV .[id number] PRN PRN Reason: SALINE FLUSH Levofloxacin (Levaquin Iv) 750 mg in 150 mls @ 100 mls/hr IV Q24@2200 WEI Propofol (Diprivan) 1,000 mg in 100 mls @ 2.082 mls/hr CONT INF .Q12H [facility] Last Admin: 10/26/18 07:22 Dose: Not Given Magnesium Hydroxide (Milk Of Magnesia) 30 ml PO DAILY PRN PRN PRN Reason: Constipation Methylprednisolone (Solu-Medrol) 40 mg IV Q8 [facility] Last Admin: 10/26/18 05:16 Dose: 40 mg Ondansetron HCl (Zofran) 4 mg IV Q8H PRN PRN PRN Reason: NAUSEA Polyethylene Glycol (Miralax) 17 gm PO DAILY PRN PRN PRN Reason: Constipation Sodium Chloride () 5 - 15 ml IV UD PRN PRN Reason: SALINE FLUSH Last Admin: 10/26/18 05:16 Dose: 10 ml Medical Necessity - Tobacco Use Smoking Status: Former smoker Assessment/Plan All Active Problems (Last Reviewed 10/26/18 @ 01:48 by Jacobo Unger MD) Acute respiratory failure with hypoxia and hypercapnia (Acute) Bilateral pneumonia (Acute) Severe sepsis (Acute) Hypotension (Acute) Paroxysmal atrial flutter (Acute) Presence of cardiac pacemaker (Acute) Acute on chronic diastolic (congestive) heart failure (Acute) Aortic valve stenosis, nonrheumatic (Acute) History of permanent cardiac pacemaker placement (Resolved) Dyspnea (Acute) Chest pain (Acute) Pulmonary congestion (Acute) Conduction disorder of the heart (Acute) Acute exacerbation of chronic obstructive pulmonary disease (Acute) Acute exacerbation of chronic obstructive pulmonary disease (COPD) (Acute) Drug rash (Acute) Hyperglycemia (Acute) CAP (community acquired pneumonia) (Acute) Hyponatremia (Acute) Dehydration (Acute) Lung nodule, solitary (Acute) The patient is a 83 year old M with a significant medical history of 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 1. severe sepsis secondary to probable community-acquired pneumonia Sepsis (fever of 100.4 Fahrenheit; tachycardia with persistent and highest heart rate of 132; tachypnea with highest respiratory rate of 38; systolic blood pressure blood mid 70s responded with normal saline bolus: On IV Levaquin 750 mg IV daily. Breathing treatment. Urinary antigens are negative. Respiratory panel negative. Blood cultures x2, sputum culture and urine culture are pending. Lactic acid: Unremarkable 2. Probable exacerbation of COPD most probably secondary to pneumonia Likely due to pneumonia. Breathing treatment and steroid as above 3. Chronic diastolic heart failure/mitral valve calcification. 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 History of lung cancer status post radiotherapy, dyslipidemia and limited functional capacity Stress ulcer prophylaxis Pepcid by G-tube. Active Medications Acetaminophen (Tylenol) 650 mg PO Q6H PRN PRN PRN Reason: Mild Pain (scale 0-3)/T>100.7 Albuterol Sulfate (Ventolin Aerosols) 2.5 mg INHALATION Q2H PRN PRN PRN Reason: sob/wheezing Albuterol/Ipratropium (Duoneb) 3 ml INHALATION Q4HWA.RT [facility] Last Admin: 10/26/18 11:23 Dose: 3 ml Chlorhexidine Gluconate () 15 ml PO BID [facility] Last Admin: 10/26/18 09:44 Dose: 15 ml Enoxaparin Sodium (Lovenox) 40 mg SC DAILY@1000 [facility] Last Admin: 10/26/18 09:44 Dose: 40 mg Famotidine (Pepcid) 20 mg GT BID [facility] Last Admin: 10/26/18 09:44 Dose: 20 mg Fentanyl () 100 mls @ 2.5 mls/hr IV .Q40H [facility] Last Admin: 10/25/18 23:42 Dose: 2.5 mls/hr Sodium Chloride () 250 mls @ 15 mls/hr IV .[id number] PRN PRN Reason: SALINE FLUSH Levofloxacin (Levaquin Iv) 750 mg in 150 mls @ 100 mls/hr IV Q24@2200 [facility] Propofol (Diprivan) 1,000 mg in 100 mls @ 2.082 mls/hr CONT INF .Q12H [facility] Last Admin: 10/26/18 07:22 Dose: Not Given Magnesium Hydroxide (Milk Of Magnesia) 30 ml PO DAILY PRN PRN PRN Reason: Constipation Methylprednisolone (Solu-Medrol) 40 mg IV Q8 [facility] Last Admin: 10/26/18 05:16 Dose: 40 mg Ondansetron HCl (Zofran) 4 mg IV Q8H PRN PRN PRN Reason: NAUSEA Polyethylene Glycol (Miralax) 17 gm PO DAILY PRN PRN PRN Reason: Constipation Senna (Senokot) 2 tablet NG BID WEI Sodium Chloride () 5 - 15 ml IV UD PRN PRN Reason: SALINE FLUSH Last Admin: 10/26/18 05:16 Dose: 10 ml Code Visit Inpatient E&M: 23694 Init Hosp L3
--- NOTE | 2018-10-26 08:26 | PN_ITS ---
Patient Problems: Active and Suspected Problems (Last Reviewed 10/26/18 @ 01:48 by Jacobo Unger MD) Acute respiratory failure with hypoxia and hypercapnia (Acute) Bilateral pneumonia (Acute) Severe sepsis (Acute) Hypotension (Acute) Paroxysmal atrial flutter (Acute) Acute on chronic diastolic (congestive) heart failure (Acute) Acute exacerbation of chronic obstructive pulmonary disease (Acute) Subjective: The patient is intubated. Blood pressure is controlled. T-max 99.3 Fahrenheit. Patient on 50% FiO2/TV 500 mL/8 PEEP. Patient spontaneous breathing 17-19/min. Vitals/I&O's: Vital Signs Temp Pulse Resp BP Pulse Ox 99.3 F H 85 19 H 122/62 H 95 10/26/18 08:00 10/26/18 08:00 10/26/18 08:00 10/26/18 08:00 10/26/18 08:00 Oxygen Flow Rate (L/min) 60 Oxygen Delivery Method Mechanical Ventilator Weight: 160 lb 11.472 oz Body Mass Index (BMI) 25.2 Intake and Output for Last 24 Hours 10/24/18 10/25/18 10/26/18 23:59 23:59 23:59 Intake Total Output Total 200 / 200 Balance -177 / -177 General: Lethargic, - - Open size. HEENT: Atraumatic, PERRLA, EOMI, Normocephalic Oral: - Neck: Supple - Intubated, No JVD, Negative Carotid Bruits Lungs: Diminished, - - On vent support Cardiovascular: Regular rate, Regular Rhythm, Normal S1, Normal S2, No murmurs Abdomen: Bowel Sounds Present, Soft, Non Tender, Non-Distended, - - Dark yellow urine. Monzon catheter. No pus flecks Extremities: No edema, Capillary Refill Less than 3 Seconds Skin: No rashes, No breakdown Musculoskeletal: No Tenderness to Palpation of Joints or Extremities, Arthritic Changes Lymphatic: No Cervical, Supraclavicular, or Inguinal Adenopathy Neurological: Cranial nerves II-XII grossly intact, Neuro grossly intact Microbiology Past 72 Hours 10/26/18 00:10 Urine Catheter - [place]zon Streptococcus pneumoniae Antigen (M - Final 10/26/18 00:10 Urine Catheter - [place] Legionella Antigen - Final 10/25/18 21:55 Mucosa - Nasopharyngeal Influenza Types A,B Direct FA ([facility]) - Final Laboratory Results 10/25/18 21:13: Specimen Type ART, Sample Site L Radial, pH 7.20 L, Bicarbonate Actual 31.4 H, POC Total CO2 34, Base Excess 3 H, O2 Saturation 96, ABG pCO2 79.8 H*, ABG pO2 104 H, Mo Test POS, O2 Delivery Device NRB Mask, Liter Flow 15.0, Blood Gas Notified Whom ED MD 10/25/18 21:30: WBC 20.1 H, RBC 4.48 L, Hgb 13.5, Hct 42.1, MCV 94.0, MCH 30.1, MCHC 32.1, RDW 11.8, RDW Differential 39.6, Plt Count 202, MPV 9.3, Immature Gran % (Auto) 0.200, Neut % (Auto) 82.3 H, Lymph % (Auto) 9.0 L, [place] % (Auto) 7.9, Eos % (Auto) 0.4, Baso % (Auto) 0.2, Absolute Neuts (auto) 16.6 H, Absolute Lymphs (auto) 1.80, Total Counted Not Reportable, Differential Comment SCANNED, Diff Path Review December foll 10/25/18 21:30: PT 12.8, INR 1.0, APTT 30.8 10/25/18 21:30: Sodium 131 L, Potassium 4.1, Chloride 96 L, Carbon Dioxide 29.0, Anion Gap 6, BUN 13, Creatinine 0.75, Estim Creat Clear Calc 53.25, Est GFR (MDRD) Af Amer 128, Est GFR (MDRD) Non-Af 106, BUN/Creatinine Ratio 17.3, Glucose 202 H, Calcium 8.7, Total Bilirubin 0.50, AST 34, ALT 40, Alkaline Phosphatase 104, Total Protein 7.6, Albumin 3.8, Globulin 3.8, Albumin/Globulin Ratio 1.0 10/25/18 21:30: Lactic Acid 1.1 10/25/18 21:30: Magnesium 1.9 10/25/18 21:30: Phosphorus 4.1 10/25/18 22:35: Specimen Type ART, Sample Site R Radial, pH 7.30 L, Bicarbonate Actual 27.4 H, POC Total CO2 29, Base Excess 1, O2 Saturation 95, O2 % 60, ABG pCO2 55.7 H, ABG pO2 83, Mo Test POS, Respiration Rate 14, O2 Delivery Device Bi / C PAP, EPAP 7, IPAP 14, Blood Gas Notified Whom ED , Blood Gas Notified Time 22410/26/18 00:10: Urine Color Yellow, Urine Clarity Cloudy, Urine pH 7.0, Ur Specific [place] 1.015, Urine Protein 100 H, Urine Glucose (UA) Normal, Urine Ketones 5 H, Urine Occult Blood 25 H, Urine Nitrite Negative, Urine Bilirubin Negative, Urine Urobilinogen Normal, Ur Leukocyte Esterase Negative, Urine RBC 0-5 SEEN, Urine WBC 0-5 SEEN, Ur Squamous Epith Cells 0 SEEN, Ur Renal Epithelial Cell 0-5 SEEN, Urine Bacteria 0 SEEN, Hyaline Casts 0-5 SEEN, WBC Casts 0-5 SEEN, Urine Mucus 0 SEEN 10/26/18 00:26: Specimen Type ART, Sample Site R Radial, pH 7.26 L, Bicarbonate Actual 25.8, POC Total CO2 28, Base Excess -1, O2 Saturation 89 L, O2 % 60, ABG pCO2 57.6 H, ABG pO2 67 L, Mo Test POS, Respiration Rate 14, O2 Delivery Device Vent, Vent Mode A-C, Tidal Volume 500, POC PEEP 5, Blood Gas Notified Whom ED , Blood Gas Notified Time 12310/26/18 02:51: Specimen Type ART, Sample Site L Radial, pH 7.30 L, Bicarbonate Actual 25.8, POC Total CO2 27, Base Excess -1, O2 Saturation 92 L, O2 % 60, ABG pCO2 52.5 H, ABG pO2 70 L, Respiration Rate 16, O2 Delivery Device Vent, Minute Volume 11.00, Vent Mode A-C, Tidal Volume 500, POC PEEP 8, Blood Gas Notified Whom HOSP , Blood Gas Notified Time 245 10/26/18 04:40: WBC 11.5 H, RBC 3.72 L, Hgb 11.1 L, Hct 35.1 L, MCV 94.4 H, MCH 29.8, MCHC 31.6 L, RDW 11.9, RDW Differential 40.4, Plt Count 162, MPV 9.4, Immature Gran % (Auto) 0.300, Neut % (Auto) 93.4 H, Lymph % (Auto) 3.2 L, [place] % (Auto) 2.9, Eos % (Auto) 0.1, Baso % (Auto) 0.1, Absolute Neuts (auto) 10.7 H, Absolute Lymphs (auto) 0.37 L, Total Counted Not Reportable, Differential Comment 10/26/18 04:40: Sodium 137, Potassium 4.6, Chloride 101, Carbon Dioxide 28.0, Anion Gap 8, BUN 16, Creatinine 0.85, Estim Creat Clear Calc 62.64, Est GFR (MDRD) Af Amer 111, Est GFR (MDRD) Non-Af 92, BUN/Creatinine Ratio 18.9, Glucose 248 H, Calcium 8.0 L 10/26/18 04:40: MRSA (PCR) Negative Current Medications Acetaminophen (Tylenol) 650 mg PO Q6H PRN PRN PRN Reason: Mild Pain (scale 0-3)/T>100.7 Albuterol Sulfate (Ventolin Aerosols) 2.5 mg INHALATION Q2H PRN PRN PRN Reason: sob/wheezing Albuterol/Ipratropium (Duoneb) 3 ml INHALATION Q4HWA.RT COUNTS [facility]CLUDE 234 BEDS AT THE [facility] Last Admin: 10/26/18 07:31 Dose: 3 ml Chlorhexidine Gluconate () 15 ml PO BID WEI Enoxaparin Sodium (Lovenox) 40 mg SC DAILY@1000 COUNTS INCLUDE 234 BEDS AT THE [facility] Famotidine (Pepcid) 20 mg GT BID WEI Fentanyl () 100 mls @ 2.5 mls/hr IV .Q40H COUNTS [facility]CLUDE 234 BEDS AT THE [facility] Last Admin: 10/25/18 23:42 Dose: 2.5 mls/hr Sodium Chloride () 250 mls @ 15 mls/hr IV .[id number] PRN PRN Reason: SALINE FLUSH Levofloxacin (Levaquin Iv) 750 mg in 150 mls @ 100 mls/hr IV Q24@2200 WEI Propofol (Diprivan) 1,000 mg in 100 mls @ 2.082 mls/hr CONT INF .Q12H COUNTS INCLUDE 234 BEDS AT THE [facility] Last Admin: 10/26/18 07:22 Dose: Not Given Magnesium Hydroxide (Milk Of Magnesia) 30 ml PO DAILY PRN PRN PRN Reason: Constipation Methylprednisolone (Solu-Medrol) 40 mg IV Q8 COUNTS [facility]CLUDE 234 BEDS AT [facility] Last Admin: 10/26/18 05:16 Dose: 40 mg Ondansetron HCl (Zofran) 4 mg IV Q8H PRN PRN PRN Reason: NAUSEA Polyethylene Glycol (Miralax) 17 gm PO DAILY PRN PRN PRN Reason: Constipation Sodium Chloride () 5 - 15 ml IV UD PRN PRN Reason: SALINE FLUSH Last Admin: 10/26/18 05:16 Dose: 10 ml Medical Necessity - Tobacco Use Smoking Status: Former smoker Assessment/Plan All Active Problems (Last Reviewed 10/26/18 @ 01:48 by Jacobo Unger MD) Acute respiratory failure with hypoxia and hypercapnia (Acute) Bilateral pneumonia (Acute) Severe sepsis (Acute) Hypotension (Acute) Paroxysmal atrial flutter (Acute) Presence of cardiac pacemaker (Acute) Acute on chronic diastolic (congestive) heart failure (Acute) Aortic valve stenosis, nonrheumatic (Acute) History of permanent cardiac pacemaker placement (Resolved) Dyspnea (Acute) Chest pain (Acute) Pulmonary congestion (Acute) Conduction disorder of the heart (Acute) Acute exacerbation of chronic obstructive pulmonary disease (Acute) Acute exacerbation of chronic obstructive pulmonary disease (COPD) (Acute) Drug rash (Acute) Hyperglycemia (Acute) CAP (community acquired pneumonia) (Acute) Hyponatremia (Acute) Dehydration (Acute) Lung nodule, solitary (Acute) The patient is a 83 year old M with a significant medical history of 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 1. severe sepsis secondary to probable community-acquired pneumonia Sepsis (fever of 100.4 Fahrenheit; tachycardia with persistent and highest heart rate of 132; tachypnea with highest respiratory rate of 38; systolic blood pressure blood mid 70s responded with normal saline bolus: On IV Levaquin 750 mg IV daily. Breathing treatment. Urinary antigens are negative. Respiratory panel negative. Blood cultures x2, sputum culture and urine culture are pending. Lactic acid: Unremarkable 2. Probable exacerbation of COPD most probably secondary to pneumonia Likely due to pneumonia. Breathing treatment and steroid as above 3. Chronic diastolic heart failure/mitral valve calcification. 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 History of lung cancer status post radiotherapy, dyslipidemia and limited functional capacity Stress ulcer prophylaxis Pepcid by G-tube. Active Medications Acetaminophen (Tylenol) 650 mg PO Q6H PRN PRN PRN Reason: Mild Pain (scale 0-3)/T>100.7 Albuterol Sulfate (Ventolin Aerosols) 2.5 mg INHALATION Q2H PRN PRN PRN Reason: sob/wheezing Albuterol/Ipratropium (Duoneb) 3 ml INHALATION Q4HWA.RT COUNTS INCLUDE 234 BEDS AT THE [facility] Last Admin: 10/26/18 11:23 Dose: 3 ml Chlorhexidine Gluconate () 15 ml PO BID COUNTS INCLUDE 234 BEDS AT [facility] Last Admin: 10/26/18 09:44 Dose: 15 ml Enoxaparin Sodium (Lovenox) 40 mg SC DAILY@1000 COUNTS INCLUDE 234 BEDS AT [facility] Last Admin: 10/26/18 09:44 Dose: 40 mg Famotidine (Pepcid) 20 mg GT BID COUNTS INCLUDE 234 BEDS AT [facility] Last Admin: 10/26/18 09:44 Dose: 20 mg Fentanyl () 100 mls @ 2.5 mls/hr IV .Q40H COUNTS INCLUDE 234 BEDS AT [facility] Last Admin: 10/25/18 23:42 Dose: 2.5 mls/hr Sodium Chloride () 250 mls @ 15 mls/hr IV .[id number] PRN PRN Reason: SALINE FLUSH Levofloxacin (Levaquin Iv) 750 mg in 150 mls @ 100 mls/hr IV Q24@2200 COUNTS INCLUDE 234 BEDS AT THE [facility] Propofol (Diprivan) 1,000 mg in 100 mls @ 2.082 mls/hr CONT INF .Q12H COUNTS INCLUDE 234 BEDS AT THE [facility] Last Admin: 10/26/18 07:22 Dose: Not Given Magnesium Hydroxide (Milk Of Magnesia) 30 ml PO DAILY PRN PRN PRN Reason: Constipation Methylprednisolone (Solu-Medrol) 40 mg IV Q8 COUNTS INCLUDE 234 BEDS AT THE [facility] Last Admin: 10/26/18 05:16 Dose: 40 mg Ondansetron HCl (Zofran) 4 mg IV Q8H PRN PRN PRN Reason: NAUSEA Polyethylene Glycol (Miralax) 17 gm PO DAILY PRN PRN PRN Reason: Constipation Senna (Senokot) 2 tablet NG BID WEI Sodium Chloride () 5 - 15 ml IV UD PRN PRN Reason: SALINE FLUSH Last Admin: 10/26/18 05:16 Dose: 10 ml Code Visit Inpatient E&M: 51483 Init Hosp L3
--- NOTE | 2018-10-26 09:35 | CM.UR ---
Participated in interdisciplinary rounds on patient. and daughter present. Patient remains on vent. Dr. Powers instructed he would anticipate patient to be on vent 2-3 days. Eugene Cooley RN, [facility].
--- NOTE | 2018-10-26 09:43 | CM.UR ---
RN CM Assessment Met face to face with patient for initial transition planning/care coordination assessment. Introduced myself and my role. Verb understanding and agreement for assessment. Presentation: worsening sob PCP: Erik Specialists: Dr. Powers [facility] Insurance: [facility] Prescription Benefit: Yes AARP supplement LNOK: [place], Home: [place], one story. No difficulties ADLs: Previously independent at home. Transportation: drives DME: has O2, nebulizer SNF/HHC: None Passport/waiver fiber optics technician: NA Advance Directives: None, Denies wanting additional information at this time. Discussed that previously pulmonary recommended palliative care. States they didn't understand that. Explained that his COPD does not have a cure. Explained the goal is to keep him stable and they can help with that. Instructed on how quickly a person becomes weak. discussed that we will see once he starts moving therapy will evaluate him and they will recommend. If they recommend 5x a week that it will mean SNF but if they say he will do ok with less I would recommend HHC. Explained HHC would be beneficial as nurse will continue to evaluate his lungs and ensure that he is continuing to improve. DC PLAN: SNF vs HHC. Eugene Cooley RN, CCM.
[2018-10-26] MEDS: Enoxaparin 40 MG/0.4 ML Syringe SC (09:44)
[2018-10-26] MEDS: Chlorhexidine 15 ML PO ×2 (09:44→21:08)
[2018-10-26] MEDS: Famotidine 20 MG Tablet GT ×2 (09:44→21:08)
[2018-10-26 11:20] LABS: CPK Total, Creatine Kinase 102 U/L (39-308); Triglycerides 37 mg/dL
[2018-10-26] MEDS: fentaNYL drip 100 ML 2.5 MCG IV (15:46)
[2018-10-26] MEDS: Vital AF 1.2 Cal Liquid 1,000 ML 65 ML GT (16:46)
[2018-10-26] MEDS: levoFLOXacin IV 750 MG/150 ML BAG 100 MG IV (21:08)
[2018-10-26] MEDS: Senna Tablet 2 TABLET NG (21:08)
[2018-10-27] VITALS (39 sets, daily range): BP systolic 95–166; BP diastolic 54–103; PULSE 75–129; RESP 13–27; TEMP 37.2–37.9; O2SAT 87–100
[2018-10-27] MEDS: fentaNYL drip 100 ML 2.5 MCG IV (02:25)
[2018-10-27 04:13] LABS: Anion Gap 5 (5-15); BUN 22 mg/dL (7-18); Calcium,Total 8.4 mg/dL (8.5-10.1); Chloride 100 mmol/L (98-107); Creatinine, Serum 0.67 mg/dL (0.70-1.30); EST Glomerular Filtration Rate 121 mL/min (>60); Est Glom Filt Rate - Afr Amer 147 mL/min (>60); Estimated Creatinine Clearance 53.25 ml/min; Glucose 177 mg/dL (74-106); Magnesium 2.1 mg/dL (1.6-2.6); Phosphorus 2.5 mg/dL (2.5-4.9); Potassium 4.6 mmol/L (3.5-5.1); Sodium Level 135 mmol/L (136-145)
[2018-10-27 04:34] LABS: Absolute Lymphocyte Count 0.76 X10^3/ul (0.83-4.51); Absolute Neutrophil Count 9.6 X10^3/uL (2.0-7.7); Eosinophil# 0.08 X10^3/uL; Eosinophils% 0.7 % (0-5); Hematocrit 31.5 % (40-54); Lymphocyte # 0.76 X10^3/ul (4.0); Lymphocyte % 6.8 % (19-41); Mean Corp Hgb Conc 31.7 g/gl (32-36); Mean Corpuscular Hgb 29.8 pg (27.0-32.0); Mean Corpuscular Volume 93.8 fL (80-94); Mean Platelet Vol. 9.2 fl (6.2-12.0); Monocyte# 0.74 X10^3/uL; Monocyte% 6.6 % (0-10); Neutrophil % 85.7 % (47-70); Platelet Count 163 K/mm3 (150-450); RBC Distribution Width CV 12.1 % (11.6-14.6); RBC Distribution Width SD 41.1 fl (35.1-43.9); Red Blood Count 3.36 M/mm3 (4.6-6.2); White Blood Count 11.2 K/mm3 (4.4-11.0)
[2018-10-27 04:36] LABS: POSITIVE COUNT NO; POSITIVE DIFFERENTIAL NO; POSITIVE MORPHOLOGY NO
[2018-10-27] MEDS: CHLORHEXIDINE GLUC 2% CLOTH 1 EACH TOWELETTE TOPICAL (05:24)
[2018-10-27 05:51] LABS: Allen Test POS; Base Excess 3 mmol/L (-2 to +2); Bicarbonate 28.1 mmol/L (22-26); Blood Gas Specimen Type ART; FI02 40; Mode CPAP PS; O2 Delivery Device Vent; PEEP 5; PO2 78 mmHG (75-100); PS 5; SITE L Radial; SO2 95 % (95-99); Time Given 542; Total Carbon Dioxide 29 mmol/L; pCO2 45.7 mmHg (35-45)
--- NOTE | 2018-10-27 06:28 | PCM.PN.INT ---
Subjective: Patient did well overnight. No acute issues were reported. Patient was able to come down on oxygen requirements and qualified for spontaneous breathing trial this morning. Patient tolerated 1 hour without difficulty and ABG showed appropriate oxygenation and ventilation, so patient was extubated under my direct supervision. Patient is denying any pain at this time. Patient had tolerated tube feeds to this point. General: Alert, Cooperative, No apparent distress, - - Appears stated age HEENT: Atraumatic, PERRLA, EOMI, Normocephalic, - - No scleral icterus or injection noted. Oral: Moist Mucosa, No Gingival or Mucosal Lesions/ Ulcerations Neck: Supple, No JVD, No Nodes, Trachea Midline Lungs: No rhonchi, No rales, Diminished, Wheezes - Scattered, - - Symmetric expansion. No dullness to percussion. Cardiovascular: Regular rate, Regular Rhythm, Normal S1, Normal S2, No murmurs, No rub noted, No Gallop, - - Paced rhythm Abdomen: Bowel Sounds Present, Soft, Non Tender, Non-Distended Extremities: No cyanosis, No edema, Capillary Refill Less than 3 Seconds, Clubbing Skin: - - No significant change compared to previous Musculoskeletal: No Tenderness to Palpation of Joints or Extremities Lymphatic: No Cervical, Supraclavicular, or Inguinal Adenopathy Neurological: Cranial nerves II-XII grossly intact, Neuro grossly intact, Motor Exam 5/5 strength throughout Psych/Mental Status: Normal Affect, Appropriate Vital Signs Temp Pulse Resp BP Pulse Ox 37.3 C 101 H 13 139/68 H 96 10/27/18 06:00 10/27/18 06:00 10/27/18 06:00 10/27/18 06:00 10/27/18 06:00 Oxygen Flow Rate (L/min) 60 Oxygen Delivery Method Mechanical Ventilator Weight: 73 kg Body Mass Index (BMI) 25.2 Intake and Output for Last 24 Hours 10/25/18 10/26/18 10/27/18 23:59 23:59 23:59 Intake Total 868.9 / 868.9 540.8 / 540.8 Output Total 600 / 600 200 / 200 Balance 268.9 / 268.9 340.8 / 340.8 Labs (Last 48 Hours) 10/25/18 10/25/18 10/25/18 21:13 21:30 21:30 WBC 20.1 H RBC 4.48 L Hgb 13.5 Hct 42.1 MCV 94.0 MCH 30.1 MCHC 32.1 RDW 11.8 RDW Differential 39.6 Plt Count 202 MPV 9.3 Immature Gran % (Auto) 0.200 Neut % (Auto) 82.3 H Lymph % (Auto) 9.0 L Towns % (Auto) 7.9 Eos % (Auto) 0.4 Baso % (Auto) 0.2 Absolute Neuts (auto) 16.6 H Absolute Lymphs (auto) 1.80 Total Counted Not Reportable Differential Comment SCANNED Diff Path Review December foll PT 12.8 INR 1.0 APTT 30.8 Specimen Type ART Sample Site L Radial pH 7.20 L Bicarbonate Actual 31.4 H POC Total CO2 34 Base Excess 3 H O2 Saturation 96 O2 % ABG pCO2 79.8 H* ABG pO2 104 H Mo Test POS Respiration Rate O2 Delivery Device NRB Mask Liter Flow 15.0 Minute Volume Vent Mode Tidal Volume POC PEEP POC Pressure Suppt EPAP IPAP Blood Gas Notified Whom ED MD Blood Gas Notified Time Sodium Potassium Chloride Carbon Dioxide Anion Gap BUN Creatinine Estim Creat Clear Calc Est GFR (MDRD) Af Amer Est GFR (MDRD) Non-Af BUN/Creatinine Ratio Glucose Lactic Acid Calcium Phosphorus Magnesium Total Bilirubin AST ALT Alkaline Phosphatase Total Creatine Kinase Total Protein Albumin Globulin Albumin/Globulin Ratio Triglycerides Urine Color Urine Clarity Urine pH Ur Specific [place] Urine Protein Urine Glucose (UA) Urine Ketones Urine Occult Blood Urine Nitrite Urine Bilirubin Urine Urobilinogen Ur Leukocyte Esterase Urine RBC Urine WBC Ur Squamous Epith Cells Ur Renal Epithelial Cell Urine Bacteria Hyaline Casts WBC Casts Urine Mucus MRSA (PCR) 10/25/18 10/25/18 10/25/18 21:30 21:30 21:30 WBC RBC Hgb Hct MCV MCH MCHC RDW RDW Differential Plt Count MPV Immature Gran % (Auto) Neut % (Auto) Lymph % (Auto) Towns % (Auto) Eos % (Auto) Baso % (Auto) Absolute Neuts (auto) Absolute Lymphs (auto) Total Counted Differential Comment Diff Path Review PT INR APTT Specimen Type Sample Site pH Bicarbonate Actual POC Total CO2 Base Excess O2 Saturation O2 % ABG pCO2 ABG pO2 Mo Test Respiration Rate O2 Delivery Device Liter Flow Minute Volume Vent Mode Tidal Volume POC PEEP POC Pressure Suppt EPAP IPAP Blood Gas Notified Whom Blood Gas Notified Time Sodium 131 L Potassium 4.1 Chloride 96 L Carbon Dioxide 29.0 Anion Gap 6 BUN 13 Creatinine 0.75 Estim Creat Clear Calc 53.25 Est GFR (MDRD) Af Amer 128 Est GFR (MDRD) Non-Af 106 BUN/Creatinine Ratio 17.3 Glucose 202 H Lactic Acid 1.1 Calcium 8.7 Phosphorus Magnesium 1.9 Total Bilirubin 0.50 AST 34 ALT 40 Alkaline Phosphatase 104 Total Creatine Kinase Total Protein 7.6 Albumin 3.8 Globulin 3.8 Albumin/Globulin Ratio 1.0 Triglycerides Urine Color Urine Clarity Urine pH Ur Specific [place] Urine Protein Urine Glucose (UA) Urine Ketones Urine Occult Blood Urine Nitrite Urine Bilirubin Urine Urobilinogen Ur Leukocyte Esterase Urine RBC Urine WBC Ur Squamous Epith Cells Ur Renal Epithelial Cell Urine Bacteria Hyaline Casts WBC Casts Urine Mucus MRSA (PCR) 10/25/18 10/25/18 10/26/18 21:30 22:35 00:10 WBC RBC Hgb Hct MCV MCH MCHC RDW RDW Differential Plt Count MPV Immature Gran % (Auto) Neut % (Auto) Lymph % (Auto) Towns % (Auto) Eos % (Auto) Baso % (Auto) Absolute Neuts (auto) Absolute Lymphs (auto) Total Counted Differential Comment Diff Path Review PT INR APTT Specimen Type ART Sample Site R Radial pH 7.30 L Bicarbonate Actual 27.4 H POC Total CO2 29 Base Excess 1 O2 Saturation 95 O2 % 60 ABG pCO2 55.7 H ABG pO2 83 Mo Test POS Respiration Rate 14 O2 Delivery Device Bi / C PAP Liter Flow Minute Volume Vent Mode Tidal Volume POC PEEP POC Pressure Suppt EPAP 7 IPAP 14 Blood Gas Notified Whom ED Blood Gas Notified Time 2240 Sodium Potassium Chloride Carbon Dioxide Anion Gap BUN Creatinine Estim Creat Clear Calc Est GFR (MDRD) Af Amer Est GFR (MDRD) Non-Af BUN/Creatinine Ratio Glucose Lactic Acid Calcium Phosphorus 4.1 Magnesium Total Bilirubin AST ALT Alkaline Phosphatase Total Creatine Kinase Total Protein Albumin Globulin Albumin/Globulin Ratio Triglycerides Urine Color Yellow Urine Clarity Cloudy Urine pH 7.0 Ur Specific [place] 1.015 Urine Protein 100 H Urine Glucose (UA) Normal Urine Ketones 5 H Urine Occult Blood 25 H Urine Nitrite Negative Urine Bilirubin Negative Urine Urobilinogen Normal Ur Leukocyte Esterase Negative Urine RBC 0-5 SEEN Urine WBC 0-5 SEEN Ur Squamous Epith Cells 0 SEEN Ur Renal Epithelial Cell 0-5 SEEN Urine Bacteria 0 SEEN Hyaline Casts 0-5 SEEN WBC Casts 0-5 SEEN Urine Mucus 0 SEEN MRSA (PCR) 10/26/18 10/26/18 10/26/18 00:26 02:51 04:40 WBC 11.5 H RBC 3.72 L Hgb 11.1 L Hct 35.1 L MCV 94.4 H MCH 29.8 MCHC 31.6 L RDW 11.9 RDW Differential 40.4 Plt Count 162 MPV 9.4 Immature Gran % (Auto) 0.300 Neut % (Auto) 93.4 H Lymph % (Auto) 3.2 L Towns % (Auto) 2.9 Eos % (Auto) 0.1 Baso % (Auto) 0.1 Absolute Neuts (auto) 10.7 H Absolute Lymphs (auto) 0.37 L Total Counted Not Reportable Differential Comment Diff Path Review PT INR APTT Specimen Type ART ART Sample Site R Radial L Radial pH 7.26 L 7.30 L Bicarbonate Actual 25.8 25.8 POC Total CO2 28 27 Base Excess -1 -1 O2 Saturation 89 L 92 L O2 % 60 60 ABG pCO2 57.6 H 52.5 H ABG pO2 67 L 70 L Mo Test POS Respiration Rate 14 16 O2 Delivery Device Vent Vent Liter Flow Minute Volume 11.00 Vent Mode A-C A-C Tidal Volume 500 500 POC PEEP 5 8 POC Pressure Suppt EPAP IPAP Blood Gas Notified Whom ED HOSP Blood Gas Notified Time 1230 245 Sodium Potassium Chloride Carbon Dioxide Anion Gap BUN Creatinine Estim Creat Clear Calc Est GFR (MDRD) Af Amer Est GFR (MDRD) Non-Af BUN/Creatinine Ratio Glucose Lactic Acid Calcium Phosphorus Magnesium Total Bilirubin AST ALT Alkaline Phosphatase Total Creatine Kinase Total Protein Albumin Globulin Albumin/Globulin Ratio Triglycerides Urine Color Urine Clarity Urine pH Ur Specific [place] Urine Protein Urine Glucose (UA) Urine Ketones Urine Occult Blood Urine Nitrite Urine Bilirubin Urine Urobilinogen Ur Leukocyte Esterase Urine RBC Urine WBC Ur Squamous Epith Cells Ur Renal Epithelial Cell Urine Bacteria Hyaline Casts WBC Casts Urine Mucus MRSA (PCR) 10/26/18 10/26/18 10/26/18 04:40 04:40 04:40 WBC RBC Hgb Hct MCV MCH MCHC RDW RDW Differential Plt Count MPV Immature Gran % (Auto) Neut % (Auto) Lymph % (Auto) Towns % (Auto) Eos % (Auto) Baso % (Auto) Absolute Neuts (auto) Absolute Lymphs (auto) Total Counted Differential Comment Diff Path Review PT INR APTT Specimen Type Sample Site pH Bicarbonate Actual POC Total CO2 Base Excess O2 Saturation O2 % ABG pCO2 ABG pO2 Mo Test Respiration Rate O2 Delivery Device Liter Flow Minute Volume Vent Mode Tidal Volume POC PEEP POC Pressure Suppt EPAP IPAP Blood Gas Notified Whom Blood Gas Notified Time Sodium 137 Potassium 4.6 Chloride 101 Carbon Dioxide 28.0 Anion Gap 8 BUN 16 Creatinine 0.85 Estim Creat Clear Calc 62.64 Est GFR (MDRD) Af Amer 111 Est GFR (MDRD) Non-Af 92 BUN/Creatinine Ratio 18.9 Glucose 248 H Lactic Acid Calcium 8.0 L Phosphorus Magnesium Total Bilirubin AST ALT Alkaline Phosphatase Total Creatine Kinase 102 Total Protein Albumin Globulin Albumin/Globulin Ratio Triglycerides 37 Urine Color Urine Clarity Urine pH Ur Specific [place] Urine Protein Urine Glucose (UA) Urine Ketones Urine Occult Blood Urine Nitrite Urine Bilirubin Urine Urobilinogen Ur Leukocyte Esterase Urine RBC Urine WBC Ur Squamous Epith Cells Ur Renal Epithelial Cell Urine Bacteria Hyaline Casts WBC Casts Urine Mucus MRSA (PCR) Negative 10/27/18 10/27/18 10/27/18 03:50 03:50 05:48 WBC 11.2 H RBC 3.36 L Hgb 10.0 L Hct 31.5 L MCV 93.8 MCH 29.8 MCHC 31.7 L RDW 12.1 RDW Differential 41.1 Plt Count 163 MPV 9.2 Immature Gran % (Auto) 0.200 Neut % (Auto) 85.7 H Lymph % (Auto) 6.8 L Towns % (Auto) 6.6 Eos % (Auto) 0.7 Baso % (Auto) 0.0 Absolute Neuts (auto) 9.6 H Absolute Lymphs (auto) 0.76 L Total Counted Not Reportable Differential Comment Diff Path Review PT INR APTT Specimen Type ART Sample Site L Radial pH 7.40 Bicarbonate Actual 28.1 H POC Total CO2 29 Base Excess 3 H O2 Saturation 95 O2 % 40 ABG pCO2 45.7 H ABG pO2 78 Mo Test POS Respiration Rate O2 Delivery Device Vent Liter Flow Minute Volume Vent Mode CPAP PS Tidal Volume POC PEEP 5 POC Pressure Suppt 5 EPAP IPAP Blood Gas Notified Whom ICU MD Blood Gas Notified Time 542 Sodium 135 L Potassium 4.6 Chloride 100 Carbon Dioxide 30.0 Anion Gap 5 BUN 22 H Creatinine 0.67 L Estim Creat Clear Calc 53.25 Est GFR (MDRD) Af Amer 147 Est GFR (MDRD) Non-Af 121 BUN/Creatinine Ratio 33.0 H Glucose 177 H Lactic Acid Calcium 8.4 L Phosphorus 2.5 Magnesium 2.1 Total Bilirubin AST ALT Alkaline Phosphatase Total Creatine Kinase Total Protein Albumin Globulin Albumin/Globulin Ratio Triglycerides Urine Color Urine Clarity Urine pH Ur Specific [place] Urine Protein Urine Glucose (UA) Urine Ketones Urine Occult Blood Urine Nitrite Urine Bilirubin Urine Urobilinogen Ur Leukocyte Esterase Urine RBC Urine WBC Ur Squamous Epith Cells Ur Renal Epithelial Cell Urine Bacteria Hyaline Casts WBC Casts Urine Mucus MRSA (PCR) Microbiology 10/26/18 01:40 Transtracheal Aspirate Gram Stain - Final 10/26/18 03:09 Mucosa - Nose Respiratory Panel (PCR) - Final 10/26/18 00:10 Urine Catheter - [place] Streptococcus pneumoniae Antigen (M - Final 10/26/18 00:10 Urine Catheter - [place] Legionella Antigen - Final 10/25/18 21:55 Mucosa - Nasopharyngeal Influenza Types A,B Direct FA (STEVE) - Final Medical Necessity - Tobacco Use Smoking Status: Former smoker Assessment/Plan All Active Problems (Last Reviewed 10/26/18 @ 01:48 by Jacobo Unger MD) Acute respiratory failure with hypoxia and hypercapnia (Acute) Bilateral pneumonia (Acute) Severe sepsis (Acute) Hypotension (Acute) Paroxysmal atrial flutter (Acute) Presence of cardiac pacemaker (Acute) Acute on chronic diastolic (congestive) heart failure (Acute) Aortic valve stenosis, nonrheumatic (Acute) History of permanent cardiac pacemaker placement (Resolved) Dyspnea (Acute) Chest pain (Acute) Pulmonary congestion (Acute) Conduction disorder of the heart (Acute) Acute exacerbation of chronic obstructive pulmonary disease (Acute) Acute exacerbation of chronic obstructive pulmonary disease (COPD) (Acute) Drug rash (Acute) Hyperglycemia (Acute) CAP (community acquired pneumonia) (Acute) Hyponatremia (Acute) Dehydration (Acute) Lung nodule, solitary (Acute) RECOMMENDATIONS: 1. Continue empiric antibiotics 2. Continue bronchodilators and IV steroids 3. Pulmonary toileting, wean oxygen as tolerated 4. Possibly reinitiate Lasix home therapy today 5. Bedside swallow evaluation IMPRESSIONS: 1. Acute on chronic combined respiratory failure secondary to probable community-acquired pneumonia Patient currently intubated and initial ABG showed CO2 retention and hypoxemia. Patient currently on Levaquin. MRSA's screen was negative, so vancomycin was not added. Patient with rapid recovery from decompensation and was able to be extubated this morning. Patient does have relatively advanced COPD by PFT criteria almost 10 years ago. Patient likely has progressed since this time. Continue to wean oxygen as tolerated 2. 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 Patient was hypotensive on presentation, but this may have been medication effect. Possibly restart Lasix today. Antihypertensives can be reinitiated in a stepwise fashion. Patient does have a paced rhythm and appears to be appropriate. Will hold off on interrogation of pacemaker as this was just completed in August. 3. Pulmonary hypertension/history of lung cancer/hypertension/hyperlipidemia/advanced age Complicates care, management, recovery and prognosis. Antihypertensives and statin have been held. Maintain saturations to allow for decrease in pulmonary artery pressures. Have not discussed with family at this time, but patient is reportedly a full code. Addendum 7 AM: Approximately 30 minutes after extubation, patient started to develop significant desaturation. Patient denied any mucus plugging or airway stricture. Patient was placed on a nonrebreather with improvement in saturations. Patient was also given 20 mg of Lasix and appears to be responding to therapy well. No BiPAP was initiated at this time. TIME: 32 minutes critical care time spent addressing patient's acute on chronic respiratory failure, congestive heart failure, pulmonary hypertension, review of all data and collaboration with care team. (5:45 AM to 6:30 AM) Code Visit [id number]: [id number] Critical care first hour
--- NOTE | 2018-10-27 06:33 | NURSING ---
Patient extubated at 0625 via respiratory therapist, this RN at bedside. TF, fentanyl and restraints D/C'd at this time, placed on 3.5L NC, patient tolerated well.
[2018-10-27] MEDS: Ipratropium/Albuterol Sulfate 3 ML AMPUL.NEB INHALATION ×4 (06:42→18:47)
[2018-10-27] MEDS: Furosemide 20 MG/2 ML VIAL IV (07:02)
--- NOTE | 2018-10-27 08:15 | EKG12_ITS ---
Test Reason : ST Blood Pressure : / mmHG Vent. Rate : 131 BPM Atrial Rate : 131 BPM P-R Int : 144 ms QRS Dur : 152 ms QT Int : 352 ms P-R-T Axes : 000 -83 075 degrees QTc Int : 519 ms Sinus tachycardia with occasional Premature ventricular complexes and Fusion complexes Left axis deviation Non-specific intra-ventricular conduction block Lateral infarct , age undetermined Inferior infarct , age undetermined Abnormal ECG No previous ECGs available Confirmed by ANGEL LUIS SOTO, SHASHANK ([id number]), marketing editor VON TY ([id number]) on 11/11/2018 1:38:38 PM Referred By: LEONIDAS Confirmed By:SHASHANK HEIN MD
--- NOTE | 2018-10-27 11:05 | PCM.PN.HOSP ---
Patient Problems: Active and Suspected Problems (Last Reviewed 10/26/18 @ 01:48 by Jacobo Unger MD) Acute respiratory failure with hypoxia and hypercapnia (Acute) Bilateral pneumonia (Acute) Severe sepsis (Acute) Hypotension (Acute) Paroxysmal atrial flutter (Acute) Acute on chronic diastolic (congestive) heart failure (Acute) Acute exacerbation of chronic obstructive pulmonary disease (Acute) Subjective: Seen and examined in the morning. Patient is extubated. ABG reviewed. PH 7.4. On nonrebreather oxygen mask after extubation. Currently on 50% Ventimask. Vitals/I&O's: Vital Signs Temp Pulse Resp BP Pulse Ox 98.9 F 115 H 18 166/103 H 97 10/27/18 08:00 10/27/18 10:38 10/27/18 10:38 10/27/18 08:00 10/27/18 10:38 Oxygen Flow Rate (L/min) 15 Oxygen Delivery Method Venturi Mask Weight: 160 lb 14.999 oz Body Mass Index (BMI) 25.2 Intake and Output for Last 24 Hours 10/25/18 10/26/18 10/27/18 23:59 23:59 23:59 Intake Total 868.9 / 868.9 540.8 / 540.8 Output Total 600 / 600 200 / 200 Balance 268.9 / 268.9 340.8 / 340.8 General: Alert, Oriented x3, Cooperative HEENT: Atraumatic, PERRLA, EOMI, Normocephalic Neck: Supple, No JVD, Negative Carotid Bruits Lungs: Diminished, Rhonchi, Short of Breath Cardiovascular: Regular rate, Regular Rhythm, Normal S1, Normal S2, No murmurs Abdomen: Bowel Sounds Present, Soft, Non Tender, Non-Distended Extremities: No edema, Capillary Refill Less than 3 Seconds Skin: No rashes, No breakdown Musculoskeletal: No Tenderness to Palpation of Joints or Extremities Lymphatic: No Cervical, Supraclavicular, or Inguinal Adenopathy Neurological: Cranial nerves II-XII grossly intact, Deep Tendon Reflexes 2+/4 and Symmetrical, Neuro grossly intact, Motor Exam 5/5 strength throughout Psych/Mental Status: Normal Affect, Appropriate Microbiology Past 72 Hours 10/26/18 01:40 Transtracheal Aspirate Gram Stain - Final 10/26/18 03:09 Mucosa - Nose Respiratory Panel (PCR) - Final 10/26/18 00:10 Urine Catheter - [place] Streptococcus pneumoniae Antigen (M - Final 10/26/18 00:10 Urine Catheter - [place] Legionella Antigen - Final 10/25/18 21:55 Mucosa - Nasopharyngeal Influenza Types A,B Direct FA (STEVE) - Final Laboratory Results 10/26/18 04:40: Total Creatine Kinase 102, Triglycerides 37 10/27/18 03:50: WBC 11.2 H, RBC 3.36 L, Hgb 10.0 L, Hct 31.5 L, MCV 93.8, MCH 29.8, MCHC 31.7 L, RDW 12.1, RDW Differential 41.1, Plt Count 163, MPV 9.2, Immature Gran % (Auto) 0.200, Neut % (Auto) 85.7 H, Lymph % (Auto) 6.8 L, [place] % (Auto) 6.6, Eos % (Auto) 0.7, Baso % (Auto) 0.0, Absolute Neuts (auto) 9.6 H, Absolute Lymphs (auto) 0.76 L, Total Counted Not Reportable 10/27/18 03:50: Sodium 135 L, Potassium 4.6, Chloride 100, Carbon Dioxide 30.0, Anion Gap 5, BUN 22 H, Creatinine 0.67 L, Estim Creat Clear Calc 53.25, Est GFR (MDRD) Af Amer 147, Est GFR (MDRD) Non-Af 121, BUN/Creatinine Ratio 33.0 H, Glucose 177 H, Calcium 8.4 L, Phosphorus 2.5, Magnesium 2.1 10/27/18 05:48: Specimen Type ART, Sample Site L Radial, pH 7.40, Bicarbonate Actual 28.1 H, POC Total CO2 29, Base Excess 3 H, O2 Saturation 95, O2 % 40, ABG pCO2 45.7 H, ABG pO2 78, Mo Test POS, O2 Delivery Device Vent, Vent Mode CPAP PS, POC PEEP 5, POC Pressure Suppt 5, Blood Gas Notified Whom ICU , Blood Gas Notified Time 542 10/27/18 08:35: Troponin I 0.073 H Current Medications Acetaminophen (Tylenol) 650 mg PO Q6H PRN PRN PRN Reason: Mild Pain (scale 0-3)/T>100.7 Albuterol Sulfate (Ventolin Aerosols) 2.5 mg INHALATION Q2H PRN PRN PRN Reason: sob/wheezing Albuterol/Ipratropium (Duoneb) 3 ml INHALATION Q4HWA.RT [facility] Last Admin: 10/27/18 10:37 Dose: 3 ml Chlorhexidine Gluconate () 1 each TOPICAL DAILY [facility] Last Admin: 10/27/18 05:24 Dose: 1 each Enoxaparin Sodium (Lovenox) 40 mg SC DAILY@1000 [facility] Last Admin: 10/26/18 09:44 Dose: 40 mg Famotidine (Pepcid) 20 mg GT BID [facility] Last Admin: 10/26/18 21:08 Dose: 20 mg Sodium Chloride () 250 mls @ 15 mls/hr IV .[id number] PRN PRN Reason: SALINE FLUSH Levofloxacin (Levaquin Iv) 750 mg in 150 mls @ 100 mls/hr IV Q24@2200 [facility] Last Admin: 10/26/18 21:08 Dose: 100 mls/hr Enteral Nutritional Formula (Vital Af 1.2 Logan Liquid) 1,000 mls @ 65 mls/hr GT .[id number] [facility] Last Admin: 10/27/18 04:21 Dose: Not Given Magnesium Hydroxide (Milk Of Magnesia) 30 ml PO DAILY PRN PRN PRN Reason: Constipation Methylprednisolone (Solu-Medrol) 40 mg IV Q8 [facility] Last Admin: 10/27/18 05:19 Dose: 40 mg Ondansetron HCl (Zofran) 4 mg IV Q8H PRN PRN PRN Reason: NAUSEA Polyethylene Glycol (Miralax) 17 gm PO DAILY PRN PRN PRN Reason: Constipation Senna (Senokot) 2 tablet NG BID [facility] Last Admin: 10/26/18 21:08 Dose: 2 tablet Sodium Chloride () 5 - 15 ml IV UD PRN PRN Reason: SALINE FLUSH Last Admin: 10/26/18 05:16 Dose: 10 ml Medical Necessity - Tobacco Use Smoking Status: Former smoker Assessment/Plan All Active Problems (Last Reviewed 10/26/18 @ 01:48 by Jacobo Unger MD) Acute respiratory failure with hypoxia and hypercapnia (Acute) Bilateral pneumonia (Acute) Severe sepsis (Acute) Hypotension (Acute) Paroxysmal atrial flutter (Acute) Presence of cardiac pacemaker (Acute) Acute on chronic diastolic (congestive) heart failure (Acute) Aortic valve stenosis, nonrheumatic (Acute) History of permanent cardiac pacemaker placement (Resolved) Dyspnea (Acute) Chest pain (Acute) Pulmonary congestion (Acute) Conduction disorder of the heart (Acute) Acute exacerbation of chronic obstructive pulmonary disease (Acute) Acute exacerbation of chronic obstructive pulmonary disease (COPD) (Acute) Drug rash (Acute) Hyperglycemia (Acute) CAP (community acquired pneumonia) (Acute) Hyponatremia (Acute) Dehydration (Acute) Lung nodule, solitary (Acute) The patient is a 83 year old M with a significant medical history of 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 1. Severe sepsis secondary to probable community-acquired pneumonia Sepsis (fever of 100.4 Fahrenheit; tachycardia with persistent and highest heart rate of 132; tachypnea with highest respiratory rate of 38; systolic blood pressure blood mid 70s responded with normal saline bolus: On IV Levaquin 750 mg IV daily. Breathing treatment. Urinary antigens are negative. Respiratory panel negative. Blood cultures x2, sputum culture and urine culture are pending. Lactic acid: Unremarkable. Extubated on 10/27/2018. 2. Probable exacerbation of COPD most probably secondary to pneumonia Likely due to pneumonia. Breathing treatment and steroid as above 3. Chronic diastolic heart failure/mitral valve calcification. 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 4 History of hypertension Currently normotensive 5. History of lung cancer status post radiotherapy, dyslipidemia and limited functional capacity Stress ulcer prophylaxis Pepcid by G-tube. Active Medications Acetaminophen (Tylenol) 650 mg PO Q6H PRN PRN PRN Reason: Mild Pain (scale 0-3)/T>100.7 Albuterol Sulfate (Ventolin Aerosols) 2.5 mg INHALATION Q2H PRN PRN PRN Reason: sob/wheezing Albuterol/Ipratropium (Duoneb) 3 ml INHALATION Q4HWA.RT [facility] Last Admin: 10/27/18 10:37 Dose: 3 ml Chlorhexidine Gluconate () 1 each TOPICAL DAILY [facility] Last Admin: 10/27/18 05:24 Dose: 1 each Enoxaparin Sodium (Lovenox) 40 mg SC DAILY@1000 [facility] Last Admin: 10/27/18 11:12 Dose: 40 mg Famotidine (Pepcid) 20 mg GT BID [facility] Last Admin: 10/26/18 21:08 Dose: 20 mg Sodium Chloride () 250 mls @ 15 mls/hr IV .[id number] PRN PRN Reason: SALINE FLUSH Levofloxacin (Levaquin Iv) 750 mg in 150 mls @ 100 mls/hr IV Q24@2200 [facility] Last Admin: 10/26/18 21:08 Dose: 100 mls/hr Enteral Nutritional Formula (Vital Af 1.2 Logan Liquid) 1,000 mls @ 65 mls/hr GT .[id number] [facility] Last Admin: 10/27/18 04:21 Dose: Not Given Magnesium Hydroxide (Milk Of Magnesia) 30 ml PO DAILY PRN PRN PRN Reason: Constipation Methylprednisolone (Solu-Medrol) 40 mg IV Q8 [facility] Last Admin: 10/27/18 05:19 Dose: 40 mg Ondansetron HCl (Zofran) 4 mg IV Q8H PRN PRN PRN Reason: NAUSEA Polyethylene Glycol (Miralax) 17 gm PO DAILY PRN PRN PRN Reason: Constipation Senna (Senokot) 2 tablet NG BID [facility] Last Admin: 10/26/18 21:08 Dose: 2 tablet Sodium Chloride () 5 - 15 ml IV UD PRN PRN Reason: SALINE FLUSH Last Admin: 10/26/18 05:16 Dose: 10 ml Code Visit Inpatient E&M: [id number] [facility] Hosp L3
[2018-10-27] MEDS: Enoxaparin 40 MG/0.4 ML Syringe SC (11:12)
--- NOTE | 2018-10-27 11:33 | PN_ITS ---
Patient Problems: Active and Suspected Problems (Last Reviewed 10/26/18 @ 01:48 by Jacobo Unger MD) Acute respiratory failure with hypoxia and hypercapnia (Acute) Bilateral pneumonia (Acute) Severe sepsis (Acute) Hypotension (Acute) Paroxysmal atrial flutter (Acute) Acute on chronic diastolic (congestive) heart failure (Acute) Acute exacerbation of chronic obstructive pulmonary disease (Acute) Subjective: Seen and examined in the morning. Patient is extubated. ABG reviewed. PH 7.4. On nonrebreather oxygen mask after extubation. Currently on 50% Ventimask. Vitals/I&O's: Vital Signs Temp Pulse Resp BP Pulse Ox 98.9 F 115 H 18 166/103 H 97 10/27/18 08:00 10/27/18 10:38 10/27/18 10:38 10/27/18 08:00 10/27/18 10:38 Oxygen Flow Rate (L/min) 15 Oxygen Delivery Method Venturi Mask Weight: 160 lb 14.999 oz Body Mass Index (BMI) 25.2 Intake and Output for Last 24 Hours 10/25/18 10/26/18 10/27/18 23:59 23:59 23:59 Intake Total 868.9 / 868.9 540.8 / 540.8 Output Total 600 / 600 200 / 200 Balance 268.9 / 268.9 340.8 / 340.8 General: Alert, Oriented x3, Cooperative HEENT: Atraumatic, PERRLA, EOMI, Normocephalic Neck: Supple, No JVD, Negative Carotid Bruits Lungs: Diminished, Rhonchi, Short of Breath Cardiovascular: Regular rate, Regular Rhythm, Normal S1, Normal S2, No murmurs Abdomen: Bowel Sounds Present, Soft, Non Tender, Non-Distended Extremities: No edema, Capillary Refill Less than 3 Seconds Skin: No rashes, No breakdown Musculoskeletal: No Tenderness to Palpation of Joints or Extremities Lymphatic: No Cervical, Supraclavicular, or Inguinal Adenopathy Neurological: Cranial nerves II-XII grossly intact, Deep Tendon Reflexes 2+/4 and Symmetrical, Neuro grossly intact, Motor Exam 5/5 strength throughout Psych/Mental Status: Normal Affect, Appropriate Microbiology Past 72 Hours 10/26/18 01:40 Transtracheal Aspirate Gram Stain - Final 10/26/18 03:09 Mucosa - Nose Respiratory Panel (PCR) - Final 10/26/18 00:10 Urine Catheter - [place] Streptococcus pneumoniae Antigen (M - Final 10/26/18 00:10 Urine Catheter - [place] Legionella Antigen - Final 10/25/18 21:55 Mucosa - Nasopharyngeal Influenza Types A,B Direct FA (STEVE) - Final Laboratory Results 10/26/18 04:40: Total Creatine Kinase 102, Triglycerides 37 10/27/18 03:50: WBC 11.2 H, RBC 3.36 L, Hgb 10.0 L, Hct 31.5 L, MCV 93.8, MCH 29.8, MCHC 31.7 L, RDW 12.1, RDW Differential 41.1, Plt Count 163, MPV 9.2, Immature Gran % (Auto) 0.200, Neut % (Auto) 85.7 H, Lymph % (Auto) 6.8 L, [place] % (Auto) 6.6, Eos % (Auto) 0.7, Baso % (Auto) 0.0, Absolute Neuts (auto) 9.6 H, Absolute Lymphs (auto) 0.76 L, Total Counted Not Reportable 10/27/18 03:50: Sodium 135 L, Potassium 4.6, Chloride 100, Carbon Dioxide 30.0, Anion Gap 5, BUN 22 H, Creatinine 0.67 L, Estim Creat Clear Calc 53.25, Est GFR (MDRD) Af Amer 147, Est GFR (MDRD) Non-Af 121, BUN/Creatinine Ratio 33.0 H, Glucose 177 H, Calcium 8.4 L, Phosphorus 2.5, Magnesium 2.1 10/27/18 05:48: Specimen Type ART, Sample Site L Radial, pH 7.40, Bicarbonate Actual 28.1 H, POC Total CO2 29, Base Excess 3 H, O2 Saturation 95, O2 % 40, ABG pCO2 45.7 H, ABG pO2 78, Mo Test POS, O2 Delivery Device Vent, Vent Mode CPAP PS, POC PEEP 5, POC Pressure Suppt 5, Blood Gas Notified Whom ICU , Blood Gas Notified Time 542 10/27/18 08:35: Troponin I 0.073 H Current Medications Acetaminophen (Tylenol) 650 mg PO Q6H PRN PRN PRN Reason: Mild Pain (scale 0-3)/T>100.7 Albuterol Sulfate (Ventolin Aerosols) 2.5 mg INHALATION Q2H PRN PRN PRN Reason: sob/wheezing Albuterol/Ipratropium (Duoneb) 3 ml INHALATION Q4HWA.RT [facility] Last Admin: 10/27/18 10:37 Dose: 3 ml Chlorhexidine Gluconate () 1 each TOPICAL DAILY [facility] Last Admin: 10/27/18 05:24 Dose: 1 each Enoxaparin Sodium (Lovenox) 40 mg SC DAILY@1000 [facility] Last Admin: 10/26/18 09:44 Dose: 40 mg Famotidine (Pepcid) 20 mg GT BID [facility] Last Admin: 10/26/18 21:08 Dose: 20 mg Sodium Chloride () 250 mls @ 15 mls/hr IV .[id number] PRN PRN Reason: SALINE FLUSH Levofloxacin (Levaquin Iv) 750 mg in 150 mls @ 100 mls/hr IV Q24@2200 [facility] Last Admin: 10/26/18 21:08 Dose: 100 mls/hr Enteral Nutritional Formula (Vital Af 1.2 Logan Liquid) 1,000 mls @ 65 mls/hr GT .[id number] [facility] Last Admin: 10/27/18 04:21 Dose: Not Given Magnesium Hydroxide (Milk Of Magnesia) 30 ml PO DAILY PRN PRN PRN Reason: Constipation Methylprednisolone (Solu-Medrol) 40 mg IV Q8 [facility] Last Admin: 10/27/18 05:19 Dose: 40 mg Ondansetron HCl (Zofran) 4 mg IV Q8H PRN PRN PRN Reason: NAUSEA Polyethylene Glycol (Miralax) 17 gm PO DAILY PRN PRN PRN Reason: Constipation Senna (Senokot) 2 tablet NG BID [facility] Last Admin: 10/26/18 21:08 Dose: 2 tablet Sodium Chloride () 5 - 15 ml IV UD PRN PRN Reason: SALINE FLUSH Last Admin: 10/26/18 05:16 Dose: 10 ml Medical Necessity - Tobacco Use Smoking Status: Former smoker Assessment/Plan All Active Problems (Last Reviewed 10/26/18 @ 01:48 by Jacobo Unger MD) Acute respiratory failure with hypoxia and hypercapnia (Acute) Bilateral pneumonia (Acute) Severe sepsis (Acute) Hypotension (Acute) Paroxysmal atrial flutter (Acute) Presence of cardiac pacemaker (Acute) Acute on chronic diastolic (congestive) heart failure (Acute) Aortic valve stenosis, nonrheumatic (Acute) History of permanent cardiac pacemaker placement (Resolved) Dyspnea (Acute) Chest pain (Acute) Pulmonary congestion (Acute) Conduction disorder of the heart (Acute) Acute exacerbation of chronic obstructive pulmonary disease (Acute) Acute exacerbation of chronic obstructive pulmonary disease (COPD) (Acute) Drug rash (Acute) Hyperglycemia (Acute) CAP (community acquired pneumonia) (Acute) Hyponatremia (Acute) Dehydration (Acute) Lung nodule, solitary (Acute) The patient is a 83 year old M with a significant medical history of 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 1. Severe sepsis secondary to probable community-acquired pneumonia Sepsis (fever of 100.4 Fahrenheit; tachycardia with persistent and highest heart rate of 132; tachypnea with highest respiratory rate of 38; systolic blood pressure blood mid 70s responded with normal saline bolus: On IV Levaquin 750 mg IV daily. Breathing treatment. Urinary antigens are negative. Respiratory panel negative. Blood cultures x2, sputum culture and urine culture are pending. Lactic acid: Unremarkable. Extubated on 10/27/2018. 2. Probable exacerbation of COPD most probably secondary to pneumonia Likely due to pneumonia. Breathing treatment and steroid as above 3. Chronic diastolic heart failure/mitral valve calcification. 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 4 History of hypertension Currently normotensive 5. History of lung cancer status post radiotherapy, dyslipidemia and limited functional capacity Stress ulcer prophylaxis Pepcid by G-tube. Active Medications Acetaminophen (Tylenol) 650 mg PO Q6H PRN PRN PRN Reason: Mild Pain (scale 0-3)/T>100.7 Albuterol Sulfate (Ventolin Aerosols) 2.5 mg INHALATION Q2H PRN PRN PRN Reason: sob/wheezing Albuterol/Ipratropium (Duoneb) 3 ml INHALATION Q4HWA.RT [facility] Last Admin: 10/27/18 10:37 Dose: 3 ml Chlorhexidine Gluconate () 1 each TOPICAL DAILY [facility] Last Admin: 10/27/18 05:24 Dose: 1 each Enoxaparin Sodium (Lovenox) 40 mg SC DAILY@1000 [facility] Last Admin: 10/27/18 11:12 Dose: 40 mg Famotidine (Pepcid) 20 mg GT BID [facility] Last Admin: 10/26/18 21:08 Dose: 20 mg Sodium Chloride () 250 mls @ 15 mls/hr IV .[id number] PRN PRN Reason: SALINE FLUSH Levofloxacin (Levaquin Iv) 750 mg in 150 mls @ 100 mls/hr IV Q24@2200 [facility] Last Admin: 10/26/18 21:08 Dose: 100 mls/hr Enteral Nutritional Formula (Vital Af 1.2 Logan Liquid) 1,000 mls @ 65 mls/hr GT .[id number] [facility] Last Admin: 10/27/18 04:21 Dose: Not Given Magnesium Hydroxide (Milk Of Magnesia) 30 ml PO DAILY PRN PRN PRN Reason: Constipation Methylprednisolone (Solu-Medrol) 40 mg IV Q8 [facility] Last Admin: 10/27/18 05:19 Dose: 40 mg Ondansetron HCl (Zofran) 4 mg IV Q8H PRN PRN PRN Reason: NAUSEA Polyethylene Glycol (Miralax) 17 gm PO DAILY PRN PRN PRN Reason: Constipation Senna (Senokot) 2 tablet NG BID [facility] Last Admin: 10/26/18 21:08 Dose: 2 tablet Sodium Chloride () 5 - 15 ml IV UD PRN PRN Reason: SALINE FLUSH Last Admin: 10/26/18 05:16 Dose: 10 ml Code Visit Inpatient E&M: [id number] [facility] L3
[2018-10-27] MEDS: 0.9% NaCl Peripheral Flush Adult/Peds IV ×2 (12:06→14:22)
[2018-10-27] MEDS: Acetaminophen 325 MG Tablet 650 MG PO (16:17)
[2018-10-27] MEDS: Metoclopramide 5 MG TABLET PO (16:18)
[2018-10-27] MEDS: levoFLOXacin IV 750 MG/150 ML BAG 100 MG IV (21:04)
[2018-10-27] MEDS: Famotidine 20 MG Tablet PO (21:08)
[2018-10-27] MEDS: Senna Tablet 2 TABLET PO (21:09)
[2018-10-28] VITALS (33 sets, daily range): BP systolic 117–180; BP diastolic 61–98; PULSE 88–126; RESP 12–28; TEMP 37–37.7; O2SAT 74–100
[2018-10-28] MEDS: Phenol/Sodium Phenolate 180ML 3 SPRAY MM (04:07)
[2018-10-28 04:34] LABS: Absolute Lymphocyte Count 0.72 X10^3/ul (0.83-4.51); Absolute Neutrophil Count 10.3 X10^3/uL (2.0-7.7); Hematocrit 36.8 % (40-54); Hemoglobin 11.9 g/dl (13.0-16.5); Lymphocyte # 0.72 X10^3/ul (4.0); Lymphocyte % 6.2 % (19-41); Mean Corp Hgb Conc 32.3 g/gl (32-36); Mean Corpuscular Hgb 30.4 pg (27.0-32.0); Mean Corpuscular Volume 93.9 fL (80-94); Mean Platelet Vol. 9.2 fl (6.2-12.0); Monocyte# 0.53 X10^3/uL; Monocyte% 4.6 % (0-10); Neutrophil % 88.9 % (47-70); Platelet Count 203 K/mm3 (150-450); RBC Distribution Width CV 12.1 % (11.6-14.6); RBC Distribution Width SD 40.6 fl (35.1-43.9); Red Blood Count 3.92 M/mm3 (4.6-6.2); White Blood Count 11.6 K/mm3 (4.4-11.0)
[2018-10-28 04:41] LABS: Anion Gap 6 (5-15); BUN 21 mg/dL (7-18); BUN/Creat Ratio 28.3 RATIO (10-20); Calcium,Total 9.2 mg/dL (8.5-10.1); Chloride 100 mmol/L (98-107); Creatinine, Serum 0.74 mg/dL (0.70-1.30); EST Glomerular Filtration Rate 107 mL/min (>60); Est Glom Filt Rate - Afr Amer 130 mL/min (>60); Estimated Creatinine Clearance 53.25 ml/min; Glucose 173 mg/dL (74-106); Potassium 4.7 mmol/L (3.5-5.1); Sodium Level 137 mmol/L (136-145)
[2018-10-28 04:52] LABS: POSITIVE COUNT NO; POSITIVE DIFFERENTIAL NO; POSITIVE MORPHOLOGY NO
[2018-10-28] MEDS: 0.9% NaCl Peripheral Flush Adult/Peds IV (05:57)
[2018-10-28] MEDS: Ipratropium/Albuterol Sulfate 3 ML AMPUL.NEB INHALATION (06:27)
--- NOTE | 2018-10-28 06:34 | PN_ITS ---
Subjective: The patient was seen and examined at the bedside this morning. Events from the last 24 hours have been reviewed. The patient is currently maintaining appropriate oxygen saturations on his baseline 4 L/min requirement. He is hypertensive this morning with blood pressures in the 180s. He is also tachycardic with self-reported anxiety and an inability to sleep over the last 2 nights. While the patient has been followed in the pulmonary medicine clinic previously, he has been lost to follow-up since August 2017. He does report utilizing both Anoro and as needed albuterol in his home environment. Objective: The patient's most recent lab work, culture data and imaging studies have all been personally reviewed. Respiratory viral panel was negative. Strep and urine Legionella antigens were both negative. Blood and urine cultures have been unremarkable. Sputum culture appears to be normal respiratory james. General: Alert, Cooperative HEENT: Atraumatic, PERRLA, Normocephalic Oral: No Gingival or Mucosal Lesions/ Ulcerations Neck: Supple, No Nodes, Trachea Midline Lungs: No rhonchi, No wheeze, No rales, Diminished, Short of Breath, Tachypneic Cardiovascular: Normal S1, Normal S2, No murmurs, Tachycardic, - - Paced rhythm on telemetry Abdomen: Bowel Sounds Present, Soft, Non Tender Extremities: No cyanosis, No edema, Clubbing Skin: No breakdown Musculoskeletal: No Tenderness to Palpation of Joints or Extremities, No Muscle Wasting Lymphatic: No Cervical, Supraclavicular, or Inguinal Adenopathy Neurological: Cranial nerves II-XII grossly intact, Neuro grossly intact Psych/Mental Status: Anxious Vital Signs Temp Pulse Resp BP Pulse Ox 37.0 C 120 H 20 H 180/78 H 93 10/28/18 06:00 10/28/18 06:00 10/28/18 06:00 10/28/18 06:00 10/28/18 06:00 Oxygen Flow Rate (L/min) 4 Oxygen Delivery Method Nasal Cannula Weight: 157 lb 13.616 oz Body Mass Index (BMI) 25.2 Intake and Output for Last 24 Hours 10/26/18 10/27/18 10/28/18 23:59 23:59 23:59 Intake Total 868.9 / 868.9 1185.8 / 1185.8 Output Total 600 / 600 1500 / 1500 Balance 268.9 / 268.9 -314.2 / -314.2 Labs (Last 48 Hours) 10/26/18 10/26/18 10/27/18 04:40 04:40 03:50 WBC 11.2 H RBC 3.36 L Hgb 10.0 L Hct 31.5 L MCV 93.8 MCH 29.8 MCHC 31.7 L RDW 12.1 RDW Differential 41.1 Plt Count 163 MPV 9.2 Immature Gran % (Auto) 0.200 Neut % (Auto) 85.7 H Lymph % (Auto) 6.8 L [place] % (Auto) 6.6 Eos % (Auto) 0.7 Baso % (Auto) 0.0 Absolute Neuts (auto) 9.6 H Absolute Lymphs (auto) 0.76 L Total Counted Not Reportable Specimen Type Sample Site pH Bicarbonate Actual POC Total CO2 Base Excess O2 Saturation O2 % ABG pCO2 ABG pO2 Mo Test O2 Delivery Device Vent Mode POC PEEP POC Pressure Suppt Blood Gas Notified Whom Blood Gas Notified Time Sodium Potassium Chloride Carbon Dioxide Anion Gap BUN Creatinine Estim Creat Clear Calc Est GFR (MDRD) Af Amer Est GFR (MDRD) Non-Af BUN/Creatinine Ratio Glucose Calcium Phosphorus Magnesium Total Creatine Kinase 102 Troponin I Triglycerides 37 MRSA (PCR) Negative 10/27/18 10/27/18 10/27/18 03:50 05:48 08:35 WBC RBC Hgb Hct MCV MCH MCHC RDW RDW Differential Plt Count MPV Immature Gran % (Auto) Neut % (Auto) Lymph % (Auto) [place] % (Auto) Eos % (Auto) Baso % (Auto) Absolute Neuts (auto) Absolute Lymphs (auto) Total Counted Specimen Type ART Sample Site L Radial pH 7.40 Bicarbonate Actual 28.1 H POC Total CO2 29 Base Excess 3 H O2 Saturation 95 O2 % 40 ABG pCO2 45.7 H ABG pO2 78 Mo Test POS O2 Delivery Device Vent Vent Mode CPAP PS POC PEEP 5 POC Pressure Suppt 5 Blood Gas Notified Whom ICU MD Blood Gas Notified Time 542 Sodium 135 L Potassium 4.6 Chloride 100 Carbon Dioxide 30.0 Anion Gap 5 BUN 22 H Creatinine 0.67 L Estim Creat Clear Calc 53.25 Est GFR (MDRD) Af Amer 147 Est GFR (MDRD) Non-Af 121 BUN/Creatinine Ratio 33.0 H Glucose 177 H Calcium 8.4 L Phosphorus 2.5 Magnesium 2.1 Total Creatine Kinase Troponin I 0.073 H Triglycerides MRSA (PCR) 10/27/18 10/27/18 10/28/18 11:35 14:34 04:18 WBC 11.6 H RBC 3.92 L Hgb 11.9 L Hct 36.8 L MCV 93.9 MCH 30.4 MCHC 32.3 RDW 12.1 RDW Differential 40.6 Plt Count 203 MPV 9.2 Immature Gran % (Auto) 0.300 Neut % (Auto) 88.9 H Lymph % (Auto) 6.2 L [place] % (Auto) 4.6 Eos % (Auto) 0.0 Baso % (Auto) 0.0 Absolute Neuts (auto) 10.3 H Absolute Lymphs (auto) 0.72 L Total Counted Not Reportable Specimen Type Sample Site pH Bicarbonate Actual POC Total CO2 Base Excess O2 Saturation O2 % ABG pCO2 ABG pO2 Mo Test O2 Delivery Device Vent Mode POC PEEP POC Pressure Suppt Blood Gas Notified Whom Blood Gas Notified Time Sodium Potassium Chloride Carbon Dioxide Anion Gap BUN Creatinine Estim Creat Clear Calc Est GFR (MDRD) Af Amer Est GFR (MDRD) Non-Af BUN/Creatinine Ratio Glucose Calcium Phosphorus Magnesium Total Creatine Kinase Troponin I 0.124 H 0.122 H Triglycerides MRSA (PCR) 10/28/18 04:18 WBC RBC Hgb Hct MCV MCH MCHC RDW RDW Differential Plt Count MPV Immature Gran % (Auto) Neut % (Auto) Lymph % (Auto) [place] % (Auto) Eos % (Auto) Baso % (Auto) Absolute Neuts (auto) Absolute Lymphs (auto) Total Counted Specimen Type Sample Site pH Bicarbonate Actual POC Total CO2 Base Excess O2 Saturation O2 % ABG pCO2 ABG pO2 Mo Test O2 Delivery Device Vent Mode POC PEEP POC Pressure Suppt Blood Gas Notified Whom Blood Gas Notified Time Sodium 137 Potassium 4.7 Chloride 100 Carbon Dioxide 31.0 Anion Gap 6 BUN 21 H Creatinine 0.74 Estim Creat Clear Calc 53.25 Est GFR (MDRD) Af Amer 130 Est GFR (MDRD) Non-Af 107 BUN/Creatinine Ratio 28.3 H Glucose 173 H Calcium 9.2 Phosphorus Magnesium Total Creatine Kinase Troponin I Triglycerides MRSA (PCR) Microbiology 10/26/18 01:40 Transtracheal Aspirate Gram Stain - Final 10/26/18 01:40 Transtracheal Aspirate Respiratory Culture - Preliminary Appears to be normal respiratory james. Further studies to follow. 10/26/18 00:10 Urine, Clean Catch Urine Culture - Preliminary Culture exhibits no growth. 10/26/18 03:09 Mucosa - Nose Respiratory Panel (PCR) - Final 10/26/18 00:10 Urine Catheter - [place] Streptococcus pneumoniae Antigen (M - Final 10/26/18 00:10 Urine Catheter - [place] Legionella Antigen - Final Clinical Impression(s) from Imaging Studies Chest X-Ray 10/25/18 21:10 IMPRESSION: Increased diffuse interstitial findings particularly in the lower and midlung zones becoming somewhat confluent in areas and could be obscuring underlying nodules/nodular infiltrate. Similar interstitial changes of the right lung. Metastatic disease versus pneumonic process versus lymphangitic carcinomatosis. The confluence of opacity in the right lower lung zone is somewhat larger and less well defined. Fairly stable basilar right pleural effusion or pleural thickening. Severe emphysematous changes are apparent in the upper lung zones. Electronically Signed: Umm Jiménez MD at 21:33 EDT , Service support , Chest X-Ray 10/25/18 23:24 IMPRESSION: Bilateral interstitial densities and patchy infiltrates, similar to the previous study. Stable right pleural effusion. Questionable left midlung peripheral nodular densities. Electronically Signed: Collin Fields DO at 23:54 EDT Tel [phone], Service support , Medical Necessity - Tobacco Use Smoking Status: Former smoker Assessment/Plan All Active Problems (Last Reviewed 10/26/18 @ 01:48 by Jacobo Unger MD) Acute respiratory failure with hypoxia and hypercapnia (Acute) Bilateral pneumonia (Acute) Severe sepsis (Acute) Hypotension (Acute) Paroxysmal atrial flutter (Acute) Presence of cardiac pacemaker (Acute) Acute on chronic diastolic (congestive) heart failure (Acute) Aortic valve stenosis, nonrheumatic (Acute) History of permanent cardiac pacemaker placement (Resolved) Dyspnea (Acute) Chest pain (Acute) Pulmonary congestion (Acute) Conduction disorder of the heart (Acute) Acute exacerbation of chronic obstructive pulmonary disease (Acute) Acute exacerbation of chronic obstructive pulmonary disease (COPD) (Acute) Drug rash (Acute) Hyperglycemia (Acute) CAP (community acquired pneumonia) (Acute) Hyponatremia (Acute) Dehydration (Acute) Lung nodule, solitary (Acute) RECOMMENDATIONS: 1. Continue Levaquin to complete 7-day treatment course. 2. Transition from IV steroids to prednisone 40 mg daily. 3. Restart home Lasix 40 mg by mouth daily. 4. Restart home losartan 25 mg daily. 5. Continue scheduled bronchodilators. However, given the patient's tachycardia, will transition him to Atrovent. 6. Continue to wean supplemental oxygen to maintain saturations at or above 88%. 7. Obtain repeat plain film chest x-ray this morning. 8. Continue to monitor in the ICU setting for now. 9. Melatonin as needed can be utilized for sleep. IMPRESSIONS: 1. Acute on chronic combined respiratory failure due to COPD exacerbation secondary to community-acquired pneumonia While the patient did require intubation along with invasive mechanical shantel tilatory support, he was able to be extubated on October 27. He remains on antibiotics, bronchodilators and steroids. The patient's IV steroids will be transition to prednisone beginning today. Additionally, given the patient's tachycardia this morning, will transition his DuoNeb aerosol treatments to Atrovent. The patient did have rather advanced age COPD on his last known pulmonary function studies in 2009. We will plan to obtain a repeat plain film chest x-ray this morning as well. 2. 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 His home antihypertensive regimen will be restarted accordingly. In addition, his baseline Lasix regimen will also be restarted. 3. Pulmonary hypertension/personal history of lung cancer/hypertension/hyperlipidemia/advanced age Complicates care, management, recovery and prognosis. As above, restart home losartan and Lasix regimen. Physical therapy to work with patient as tolerated. This note was generated with [employer] dictation software. It may contain incorrect words, spelling, and punctuation that were not noted in checking the note before signing. Code Visit Inpatient E&M: [id number] [facility] Hosp L3
[2018-10-28] MEDS: Furosemide 40 MG Tablet PO (07:49)
[2018-10-28] MEDS: Metoclopramide 5 MG TABLET PO ×3 (07:49→17:48)
[2018-10-28] MEDS: Losartan Potassium 25 MG Tablet PO (07:49)
--- NOTE | 2018-10-28 07:51 | RAD_ITS ---
STUDY: X-RAY CHEST REASON FOR EXAM: Male, 83 years old. Shortness of breath/dyspnea. TECHNIQUE: Single AP portable view of the chest. COMPARISON: Comparison is made with prior study dated October 25, 2018. FINDINGS: Since prior study, the patient has been extubated. The oral gastric tube has been removed. EKG electrodes are seen. Since prior study, there has been progressive infiltration in the right lower lobe. Stable infiltration in the left lower lobe. Small bilateral pleural effusions worse on the right side. Normal size heart. A left-sided dual-chamber pacemaker is seen. Normal mediastinum and rafia. Normal visualized pulmonary arteries. There is atherosclerotic calcification of the aortic arch with tortuosity. There are diffuse degenerative changes of the visualized thoracic spine. There is degenerative osteoarthritis of the bilateral shoulders. There is no demonstrated abnormality of the visualized soft tissue structures of the upper abdomen. RAD/Chest 1 View (Portable) IMPRESSION: Since prior study, the patient has been extubated. The orogastric tube has been removed. Progressive infiltration in the right lower lobe with small bilateral effusions worse on the right side. Electronically Signed: Caleb Hartman, at 9:12 EDT , Service support ,
--- NOTE | 2018-10-28 08:00 | NURSING ---
Upon assessment this AM, patient was noticeably SOB with RR 30s. Oxygen saturations maintaining low 90s. at bedside and wanted the 1000 PO lasix given now. Losartan also given. Patient was moved the side of the bed to sit up straighter, however his oxygen saturation did not tolerate this activity and he dropped to 60%. Non rebreather immediately applied, and patient back in bed and boosted up. Dr. Mccartnye at bedside and ordered bipap. The patient O2 sats improved with the non rebreather at 100%. Patient then placed on bipap.
[2018-10-28] MEDS: CHLORHEXIDINE GLUC 2% CLOTH 1 EACH TOWELETTE TOPICAL (08:01)
[2018-10-28] MEDS: Ipratropium 0.5 MG/2.5 ML SOLUTION INHALATION ×4 (11:05→23:41)
--- NOTE | 2018-10-28 11:22 | PN_ITS ---
Patient Problems: Active and Suspected Problems (Last Reviewed 10/26/18 @ 01:48 by Jacobo Unger MD) Acute respiratory failure with hypoxia and hypercapnia (Acute) Bilateral pneumonia (Acute) Severe sepsis (Acute) Hypotension (Acute) Paroxysmal atrial flutter (Acute) Acute on chronic diastolic (congestive) heart failure (Acute) Acute exacerbation of chronic obstructive pulmonary disease (Acute) Subjective: Patient very tachycardic, tachypneic, short of breath and dyspneic on 5 L of oxygen in the morning. Patient was put on BiPAP, 35% FiO2 Patient was extubated on 10/27/2018 Vitals/I&O's: Vital Signs Temp Pulse Resp BP Pulse Ox 98.7 F 117 H 21 H 132/76 H 97 10/28/18 07:00 10/28/18 11:05 10/28/18 11:05 10/28/18 10:00 10/28/18 10:00 Oxygen Flow Rate (L/min) 5 Oxygen Delivery Method Bi-pap Weight: 157 lb 13.616 oz Body Mass Index (BMI) 25.2 Intake and Output for Last 24 Hours 10/26/18 10/27/18 10/28/18 23:59 23:59 23:59 Intake Total 868.9 / 868.9 1185.8 / 1185.8 100 / 100 Output Total 600 / 600 1500 / 1500 400 / 400 Balance 268.9 / 268.9 -314.2 / -314.2 -300 / -300 General: Alert, Oriented x3, Cooperative HEENT: Atraumatic, PERRLA, EOMI, Normocephalic Neck: Supple, No JVD, Negative Carotid Bruits Lungs: Diminished - Air entry severely diminished, Rhonchi, Short of Breath, Tachypneic, Using Accessory Muscles, Wheezes Cardiovascular: Normal S1, Normal S2, No murmurs, Tachycardic Abdomen: Bowel Sounds Present, Soft, Non Tender, Non-Distended Extremities: No edema, Capillary Refill Less than 3 Seconds, - - Has urinary catheter Skin: No rashes, No breakdown Musculoskeletal: No Tenderness to Palpation of Joints or Extremities, Arthritic Changes, Muscle Wasting Lymphatic: No Cervical, Supraclavicular, or Inguinal Adenopathy Neurological: Cranial nerves II-XII grossly intact, Deep Tendon Reflexes 2+/4 and Symmetrical, Neuro grossly intact Psych/Mental Status: Normal Affect, Appropriate Microbiology Past 72 Hours 10/26/18 01:40 Transtracheal Aspirate Gram Stain - Final 10/26/18 01:40 Transtracheal Aspirate Respiratory Culture - Final 10/26/18 00:10 Urine, Clean Catch Urine Culture - Final Culture exhibits no growth. 10/26/18 03:09 Mucosa - Nose Respiratory Panel (PCR) - Final 10/26/18 00:10 Urine Catheter - [place] Streptococcus pneumoniae Antigen (M - Final 10/26/18 00:10 Urine Catheter - [place] Legionella Antigen - Final 10/25/18 21:55 Mucosa - Nasopharyngeal Influenza Types A,B Direct FA (STEVE) - Final Laboratory Results 10/27/18 11:35: Troponin I 0.124 H 10/27/18 14:34: Troponin I 0.122 H 10/28/18 04:18: WBC 11.6 H, RBC 3.92 L, Hgb 11.9 L, Hct 36.8 L, MCV 93.9, MCH 30.4, MCHC 32.3, RDW 12.1, RDW Differential 40.6, Plt Count 203, MPV 9.2, Immature Gran % (Auto) 0.300, Neut % (Auto) 88.9 H, Lymph % (Auto) 6.2 L, [place] % (Auto) 4.6, Eos % (Auto) 0.0, Baso % (Auto) 0.0, Absolute Neuts (auto) 10.3 H, Absolute Lymphs (auto) 0.72 L, Total Counted Not Reportable 10/28/18 04:18: Sodium 137, Potassium 4.7, Chloride 100, Carbon Dioxide 31.0, Anion Gap 6, BUN 21 H, Creatinine 0.74, Estim Creat Clear Calc 53.25, Est GFR (MDRD) Af Amer 130, Est GFR (MDRD) Non-Af 107, BUN/Creatinine Ratio 28.3 H, Glucose 173 H, Calcium 9.2 Current Medications Acetaminophen (Tylenol) 650 mg PO Q6H PRN PRN PRN Reason: Mild Pain (scale 0-3)/T>100.7 Last Admin: 10/27/18 16:17 Dose: 650 mg Albuterol Sulfate (Ventolin Aerosols) 2.5 mg INHALATION Q2H PRN PRN PRN Reason: sob/wheezing Chlorhexidine Gluconate () 1 each TOPICAL DAILY [facility] Last Admin: 10/28/18 08:01 Dose: 1 each Enoxaparin Sodium (Lovenox) 40 mg SC DAILY@1000 [facility] Last Admin: 10/27/18 11:12 Dose: 40 mg Famotidine (Pepcid) 20 mg PO BID [facility] Last Admin: 10/27/18 21:08 Dose: 20 mg Furosemide (Lasix) 40 mg PO DAILY [facility] Last Admin: 10/28/18 07:49 Dose: 40 mg Sodium Chloride () 250 mls @ 15 mls/hr IV .[id number] PRN PRN Reason: SALINE FLUSH Levofloxacin (Levaquin Iv) 750 mg in 150 mls @ 100 mls/hr IV Q24@2200 [facility] Last Admin: 10/27/18 21:04 Dose: 100 mls/hr Ipratropium [place] (Atrovent) 0.5 mg INHALATION Q4H.RT [facility] Last Admin: 10/28/18 11:05 Dose: 0.5 mg Losartan Potassium (Cozaar) 25 mg PO DAILY [facility] Last Admin: 10/28/18 07:49 Dose: 25 mg Magnesium Hydroxide (Milk Of Magnesia) 30 ml PO DAILY PRN PRN PRN Reason: Constipation Melatonin (Melatonin) 10 mg PO QHS PRN PRN Reason: INSOMNIA Metoclopramide HCl (Metoclopramide Hcl) 5 mg PO TIDAC [facility] Last Admin: 10/28/18 07:49 Dose: 5 mg Nutritional Formula (Lactose Free) (Ensure Enlive) 120 ml PO 4X/DAY [facility] Ondansetron HCl (Zofran) 4 mg IV Q8H PRN PRN PRN Reason: NAUSEA Phenol/Menthol (Chloraseptic (Bkc)) 3 spray MM Q2H PRN PRN PRN Reason: SORE THROAT Last Admin: 10/28/18 04:07 Dose: 3 spray Polyethylene Glycol (Miralax) 17 gm PO DAILY PRN PRN PRN Reason: Constipation Prednisone () 40 mg PO DAILY@0800 [facility] Senna (Senokot) 2 tablet PO BID [facility] Last Admin: 10/27/18 21:09 Dose: 2 tablet Sodium Chloride () 5 - 15 ml IV UD PRN PRN Reason: SALINE FLUSH Last Admin: 10/28/18 05:57 Dose: 15 ml Medical Necessity - Tobacco Use Smoking Status: Former smoker Assessment/Plan All Active Problems (Last Reviewed 10/26/18 @ 01:48 by Jacobo Unger MD) Acute respiratory failure with hypoxia and hypercapnia (Acute) Bilateral pneumonia (Acute) Severe sepsis (Acute) Hypotension (Acute) Paroxysmal atrial flutter (Acute) Presence of cardiac pacemaker (Acute) Acute on chronic diastolic (congestive) heart failure (Acute) Aortic valve stenosis, nonrheumatic (Acute) History of permanent cardiac pacemaker placement (Resolved) Dyspnea (Acute) Chest pain (Acute) Pulmonary congestion (Acute) Conduction disorder of the heart (Acute) Acute exacerbation of chronic obstructive pulmonary disease (Acute) Acute exacerbation of chronic obstructive pulmonary disease (COPD) (Acute) Drug rash (Acute) Hyperglycemia (Acute) CAP (community acquired pneumonia) (Acute) Hyponatremia (Acute) Dehydration (Acute) Lung nodule, solitary (Acute) The patient is a 83 year old M with a significant medical history of 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, aortic valve stenosis, hypertension, pulmonary hypertension, COPD, lung carcinoma s/p radiation; diastolic dysfunction; 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 1. Severe sepsis secondary to probable community-acquired pneumonia with acute on chronic hypoxic and hypercarbic combined respiratory failure, present since admission: Sepsis (fever of 100.4 Fahrenheit; tachycardia with persistent and highest heart rate of 132; tachypnea with highest respiratory rate of 38; systolic blood pressure blood mid 70s responded with normal saline bolus: On IV Levaquin 750 mg IV daily. Breathing treatment. Urinary antigens are negative. Respiratory panel negative. Blood cultures x2 are pending. Sputum from tracheal aspirate shows mixed normal respiratory james. Urine culture is negative. Lactic acid normal Extubated on 10/27/2018. Patient currently is on BiPAP. 2. Probable exacerbation of COPD most probably secondary to pneumonia Likely due to pneumonia. Breathing treatment and steroid as above 3. Cardiac conditions: Indeterminate mild elevated troponin probably secondary to demand ischemia: Patient denies chest pain. Troponin 0.124, 0.122. It plateaued. Chronic diastolic heart failure/mitral valve calcification. 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 4 History of hypertension Currently normotensive 5. History of lung cancer status post radiotherapy, dyslipidemia and limited functional capacity Stress ulcer prophylaxis Pepcid by G-tube. Microbiology Past 72 Hours 10/26/18 01:40 Transtracheal Aspirate Gram Stain - Final 10/26/18 01:40 Transtracheal Aspirate Respiratory Culture - Final 10/26/18 00:10 Urine, Clean Catch Urine Culture - Final Culture exhibits no growth. 10/26/18 03:09 Mucosa - Nose Respiratory Panel (PCR) - Final 10/26/18 00:10 Urine Catheter - [place] Streptococcus pneumoniae Antigen (M - Final 10/26/18 00:10 Urine Catheter - [place] Legionella Antigen - Final 10/25/18 21:55 Mucosa - Nasopharyngeal Influenza Types A,B Direct FA (STEVE) - Final Laboratory Results 10/27/18 11:35: Troponin I 0.124 H 10/27/18 14:34: Troponin I 0.122 H 10/28/18 04:18: WBC 11.6 H, RBC 3.92 L, Hgb 11.9 L, Hct 36.8 L, MCV 93.9, MCH 30.4, MCHC 32.3, RDW 12.1, RDW Differential 40.6, Plt Count 203, MPV 9.2, Immature Gran % (Auto) 0.300, Neut % (Auto) 88.9 H, Lymph % (Auto) 6.2 L, [place] % (Auto) 4.6, Eos % (Auto) 0.0, Baso % (Auto) 0.0, Absolute Neuts (auto) 10.3 H, Absolute Lymphs (auto) 0.72 L, Total Counted Not Reportable 10/28/18 04:18: Sodium 137, Potassium 4.7, Chloride 100, Carbon Dioxide 31.0, Anion Gap 6, BUN 21 H, Creatinine 0.74, Estim Creat Clear Calc 53.25, Est GFR (MDRD) Af Amer 130, Est GFR (MDRD) Non-Af 107, BUN/Creatinine Ratio 28.3 H, Glucose 173 H, Calcium 9.2 Code Visit Inpatient E&M: [id number] Subs Hosp L3
[2018-10-28] MEDS: Enoxaparin 40 MG/0.4 ML Syringe SC (11:36)
[2018-10-28] MEDS: Senna Tablet 2 TABLET PO ×2 (11:37→21:20)
[2018-10-28] MEDS: Famotidine 20 MG Tablet PO ×2 (11:37→21:20)
[2018-10-28] MEDS: predniSONE 20 MG Tablet 40 MG PO (11:38)
[2018-10-28] MEDS: levoFLOXacin IV 750 MG/150 ML BAG 100 MG IV (21:20)
[2018-10-28] MEDS: MELATONIN 10 MG TABLET PO (22:57)
[2018-10-29] VITALS (33 sets, daily range): BP systolic 86–161; BP diastolic 53–97; PULSE 93–125; RESP 12–34; TEMP 36.8–37.9; O2SAT 90–100
--- NOTE | 2018-10-29 00:34 | CPS ---
pt put on bipap for the night, pt could not tolerate bipap for the night, asking to be on NC for the night. Pt on 3L NC. RN aware.
[2018-10-29] MEDS: Metoclopramide 5 MG TABLET PO ×2 (06:15→17:15)
--- NOTE | 2018-10-29 06:17 | PCM.PN.INT ---
Subjective: The patient was seen and examined at the bedside this morning. Events from the last 24 hours have been reviewed. The patient is currently afebrile, hemodynamically stable and maintaining appropriate oxygen saturations on 3 L/min via nasal cannula. While the patient did utilize BiPAP therapy until around lunchtime yesterday, he did refuse to utilize PAP therapy overnight. The patient continues to desaturate very quickly with even minimal amounts of exertion. Objective: The patient's most recent lab work, culture data and imaging studies have all been personally reviewed. Respiratory viral panel was negative. Strep and urine Legionella antigens were both negative. Blood and urine cultures have been unremarkable. Sputum culture appears to be normal respiratory james. General: Alert, Cooperative, No apparent distress HEENT: Atraumatic, PERRLA, Normocephalic Oral: No Gingival or Mucosal Lesions/ Ulcerations Neck: Supple, No Nodes, Trachea Midline Lungs: No rhonchi, No wheeze, No rales, Diminished Cardiovascular: Normal S1, Normal S2, No murmurs, Tachycardic Abdomen: Bowel Sounds Present, Soft, Non Tender, Non-Distended Extremities: No cyanosis, No edema, Clubbing Skin: No breakdown Musculoskeletal: No Tenderness to Palpation of Joints or Extremities, No Muscle Wasting Lymphatic: No Cervical, Supraclavicular, or Inguinal Adenopathy Neurological: Cranial nerves II-XII grossly intact, Neuro grossly intact Psych/Mental Status: Normal Affect, Appropriate Vital Signs Temp Pulse Resp BP Pulse Ox 37.2 C 102 H 28 H 131/73 H 92 10/29/18 05:00 10/29/18 05:00 10/29/18 05:00 10/29/18 05:00 10/29/18 05:00 Oxygen Flow Rate (L/min) 3 Oxygen Delivery Method Nasal Cannula Weight: 150 lb 12.739 oz Body Mass Index (BMI) 25.2 Intake and Output for Last 24 Hours 10/27/18 10/28/18 10/29/18 23:59 23:59 23:59 Intake Total 1185.8 / 1185.8 1050 / 1050 700 / 700 Output Total 1500 / 1500 2049 / 2049 400 / 400 Balance -314.2 / -314.2 -1000 / -1000 300 / 300 Labs (Last 48 Hours) 10/27/18 10/27/18 10/27/18 08:35 11:35 14:34 WBC RBC Hgb Hct MCV MCH MCHC RDW RDW Differential Plt Count MPV Immature Gran % (Auto) Neut % (Auto) Lymph % (Auto) [place] % (Auto) Eos % (Auto) Baso % (Auto) Absolute Neuts (auto) Absolute Lymphs (auto) Total Counted Sodium Potassium Chloride Carbon Dioxide Anion Gap BUN Creatinine Estim Creat Clear Calc Est GFR (MDRD) Af Amer Est GFR (MDRD) Non-Af BUN/Creatinine Ratio Glucose Calcium Troponin I 0.073 H 0.124 H 0.122 H 10/28/18 10/28/18 04:18 04:18 WBC 11.6 H RBC 3.92 L Hgb 11.9 L Hct 36.8 L MCV 93.9 MCH 30.4 MCHC 32.3 RDW 12.1 RDW Differential 40.6 Plt Count 203 MPV 9.2 Immature Gran % (Auto) 0.300 Neut % (Auto) 88.9 H Lymph % (Auto) 6.2 L [place] % (Auto) 4.6 Eos % (Auto) 0.0 Baso % (Auto) 0.0 Absolute Neuts (auto) 10.3 H Absolute Lymphs (auto) 0.72 L Total Counted Not Reportable Sodium 137 Potassium 4.7 Chloride 100 Carbon Dioxide 31.0 Anion Gap 6 BUN 21 H Creatinine 0.74 Estim Creat Clear Calc 53.25 Est GFR (MDRD) Af Amer 130 Est GFR (MDRD) Non-Af 107 BUN/Creatinine Ratio 28.3 H Glucose 173 H Calcium 9.2 Troponin I Microbiology 10/25/18 21:42 Blood Culture (Wb) - Right Hand Blood Culture - Preliminary No growth in 48 hours. 10/25/18 21:30 Blood Culture (Wb) - Anticubital Left Blood Culture - Preliminary No growth in 48 hours. 10/26/18 01:40 Transtracheal Aspirate Gram Stain - Final 10/26/18 01:40 Transtracheal Aspirate Respiratory Culture - Final 10/26/18 00:10 Urine, Clean Catch Urine Culture - Final Culture exhibits no growth. Clinical Impression(s) from Imaging Studies Chest X-Ray 10/25/18 21:10 IMPRESSION: Increased diffuse interstitial findings particularly in the lower and midlung zones becoming somewhat confluent in areas and could be obscuring underlying nodules/nodular infiltrate. Similar interstitial changes of the right lung. Metastatic disease versus pneumonic process versus lymphangitic carcinomatosis. The confluence of opacity in the right lower lung zone is somewhat larger and less well defined. Fairly stable basilar right pleural effusion or pleural thickening. Severe emphysematous changes are apparent in the upper lung zones. Electronically Signed: Umm Jiménez MD at 21:33 EDT , Service support , Chest X-Ray 10/25/18 23:24 IMPRESSION: Bilateral interstitial densities and patchy infiltrates, similar to the previous study. Stable right pleural effusion. Questionable left midlung peripheral nodular densities. Electronically Signed: Collin Fields DO at 23:54 EDT Tel [phone], Service support , Chest X-Ray 10/28/18 07:51 IMPRESSION: Since prior study, the patient has been extubated. The orogastric tube has been removed. Progressive infiltration in the right lower lobe with small bilateral effusions worse on the right side. Electronically Signed: Caleb Hartman, at 9:12 EDT , Service support , Medical Necessity - Tobacco Use Smoking Status: Former smoker Assessment/Plan All Active Problems (Last Reviewed 10/26/18 @ 01:48 by Jacobo Unger MD) Acute respiratory failure with hypoxia and hypercapnia (Acute) Bilateral pneumonia (Acute) Severe sepsis (Acute) Hypotension (Acute) Paroxysmal atrial flutter (Acute) Presence of cardiac pacemaker (Acute) Acute on chronic diastolic (congestive) heart failure (Acute) Aortic valve stenosis, nonrheumatic (Acute) History of permanent cardiac pacemaker placement (Resolved) Dyspnea (Acute) Chest pain (Acute) Pulmonary congestion (Acute) Conduction disorder of the heart (Acute) Acute exacerbation of chronic obstructive pulmonary disease (Acute) Acute exacerbation of chronic obstructive pulmonary disease (COPD) (Acute) Drug rash (Acute) Hyperglycemia (Acute) CAP (community acquired pneumonia) (Acute) Hyponatremia (Acute) Dehydration (Acute) Lung nodule, solitary (Acute) RECOMMENDATIONS: 1. Continue Levaquin to complete 7-day treatment course. 2. Continue prednisone 40 mg daily. 3. Continue Lasix. 4. Continue scheduled Atrovent. 5. Continue to wean supplemental oxygen to maintain saturations at or above 88%. 6. Melatonin as needed can be utilized for sleep. 7. Continue PRN BIPAP therapy. IMPRESSIONS: 1. Acute on chronic combined respiratory failure due to COPD exacerbation secondary to community-acquired pneumonia While the patient did require intubation along with invasive mechanical ventilatory support, he was able to be extubated on October 27. He remains on antibiotics, bronchodilators and steroids. Despite this, the patient continues to experience significant oxygen desaturation with even minimal amounts of exertion. Therefore, I am going to proceed with obtaining a CT chest along with repeat echocardiogram. We will also check BNP level. If elevated, his Lasix regimen can be increased. In the interim, he will remain on scheduled Atrovent aerosol treatments. The patient did have rather advanced age COPD on his last known pulmonary function studies in 2009. 2. 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 3. Pulmonary hypertension/personal history of lung cancer/hypertension/hyperlipidemia/advanced age Complicates care, management, recovery and prognosis. Continue home medications as indicated. Physical therapy to work with patient as tolerated. This note was generated with [employer] dictation software. It may contain incorrect words, spelling, and punctuation that were not noted in checking the note before signing. Code Visit Inpatient E&M: [id number] [facility] L3
--- NOTE | 2018-10-29 06:20 | PN_ITS ---
Subjective: The patient was seen and examined at the bedside this morning. Events from the last 24 hours have been reviewed. The patient is currently afebrile, hemodynamically stable and maintaining appropriate oxygen saturations on 3 L/min via nasal cannula. While the patient did utilize BiPAP therapy until around lunchtime yesterday, he did refuse to utilize PAP therapy overnight. The patient continues to desaturate very quickly with even minimal amounts of exertion. Objective: The patient's most recent lab work, culture data and imaging studies have all been personally reviewed. Respiratory viral panel was negative. Strep and urine Legionella antigens were both negative. Blood and urine cultures have been unremarkable. Sputum culture appears to be normal respiratory james. General: Alert, Cooperative, No apparent distress HEENT: Atraumatic, PERRLA, Normocephalic Oral: No Gingival or Mucosal Lesions/ Ulcerations Neck: Supple, No Nodes, Trachea Midline Lungs: No rhonchi, No wheeze, No rales, Diminished Cardiovascular: Normal S1, Normal S2, No murmurs, Tachycardic Abdomen: Bowel Sounds Present, Soft, Non Tender, Non-Distended Extremities: No cyanosis, No edema, Clubbing Skin: No breakdown Musculoskeletal: No Tenderness to Palpation of Joints or Extremities, No Muscle Wasting Lymphatic: No Cervical, Supraclavicular, or Inguinal Adenopathy Neurological: Cranial nerves II-XII grossly intact, Neuro grossly intact Psych/Mental Status: Normal Affect, Appropriate Vital Signs Temp Pulse Resp BP Pulse Ox 37.2 C 102 H 28 H 131/73 H 92 10/29/18 05:00 10/29/18 05:00 10/29/18 05:00 10/29/18 05:00 10/29/18 05:00 Oxygen Flow Rate (L/min) 3 Oxygen Delivery Method Nasal Cannula Weight: 150 lb 12.739 oz Body Mass Index (BMI) 25.2 Intake and Output for Last 24 Hours 10/27/18 10/28/18 10/29/18 23:59 23:59 23:59 Intake Total 1185.8 / 1185.8 1050 / 1050 700 / 700 Output Total 1500 / 1500 2049 / 2049 400 / 400 Balance -314.2 / -314.2 -1000 / -1000 300 / 300 Labs (Last 48 Hours) 10/27/18 10/27/18 10/27/18 08:35 11:35 14:34 WBC RBC Hgb Hct MCV MCH MCHC RDW RDW Differential Plt Count MPV Immature Gran % (Auto) Neut % (Auto) Lymph % (Auto) [place] % (Auto) Eos % (Auto) Baso % (Auto) Absolute Neuts (auto) Absolute Lymphs (auto) Total Counted Sodium Potassium Chloride Carbon Dioxide Anion Gap BUN Creatinine Estim Creat Clear Calc Est GFR (MDRD) Af Amer Est GFR (MDRD) Non-Af BUN/Creatinine Ratio Glucose Calcium Troponin I 0.073 H 0.124 H 0.122 H 10/28/18 10/28/18 04:18 04:18 WBC 11.6 H RBC 3.92 L Hgb 11.9 L Hct 36.8 L MCV 93.9 MCH 30.4 MCHC 32.3 RDW 12.1 RDW Differential 40.6 Plt Count 203 MPV 9.2 Immature Gran % (Auto) 0.300 Neut % (Auto) 88.9 H Lymph % (Auto) 6.2 L [place] % (Auto) 4.6 Eos % (Auto) 0.0 Baso % (Auto) 0.0 Absolute Neuts (auto) 10.3 H Absolute Lymphs (auto) 0.72 L Total Counted Not Reportable Sodium 137 Potassium 4.7 Chloride 100 Carbon Dioxide 31.0 Anion Gap 6 BUN 21 H Creatinine 0.74 Estim Creat Clear Calc 53.25 Est GFR (MDRD) Af Amer 130 Est GFR (MDRD) Non-Af 107 BUN/Creatinine Ratio 28.3 H Glucose 173 H Calcium 9.2 Troponin I Microbiology 10/25/18 21:42 Blood Culture (Wb) - Right Hand Blood Culture - Preliminary No growth in 48 hours. 10/25/18 21:30 Blood Culture (Wb) - Anticubital Left Blood Culture - Preliminary No growth in 48 hours. 10/26/18 01:40 Transtracheal Aspirate Gram Stain - Final 10/26/18 01:40 Transtracheal Aspirate Respiratory Culture - Final 10/26/18 00:10 Urine, Clean Catch Urine Culture - Final Culture exhibits no growth. Clinical Impression(s) from Imaging Studies Chest X-Ray 10/25/18 21:10 IMPRESSION: Increased diffuse interstitial findings particularly in the lower and midlung zones becoming somewhat confluent in areas and could be obscuring underlying nodules/nodular infiltrate. Similar interstitial changes of the right lung. Metastatic disease versus pneumonic process versus lymphangitic carcinomatosis. The confluence of opacity in the right lower lung zone is somewhat larger and less well defined. Fairly stable basilar right pleural effusion or pleural thickening. Severe emphysematous changes are apparent in the upper lung zones. Electronically Signed: Umm Jiménez MD at 21:33 EDT , Service support , Chest X-Ray 10/25/18 23:24 IMPRESSION: Bilateral interstitial densities and patchy infiltrates, similar to the previous study. Stable right pleural effusion. Questionable left midlung peripheral nodular densities. Electronically Signed: Collin Fields DO at 23:54 EDT Tel [phone], Service support , Chest X-Ray 10/28/18 07:51 IMPRESSION: Since prior study, the patient has been extubated. The orogastric tube has been removed. Progressive infiltration in the right lower lobe with small bilateral effusions worse on the right side. Electronically Signed: Caleb Hartman, at 9:12 EDT , Service support , Medical Necessity - Tobacco Use Smoking Status: Former smoker Assessment/Plan All Active Problems (Last Reviewed 10/26/18 @ 01:48 by Jacobo Unger MD) Acute respiratory failure with hypoxia and hypercapnia (Acute) Bilateral pneumonia (Acute) Severe sepsis (Acute) Hypotension (Acute) Paroxysmal atrial flutter (Acute) Presence of cardiac pacemaker (Acute) Acute on chronic diastolic (congestive) heart failure (Acute) Aortic valve stenosis, nonrheumatic (Acute) History of permanent cardiac pacemaker placement (Resolved) Dyspnea (Acute) Chest pain (Acute) Pulmonary congestion (Acute) Conduction disorder of the heart (Acute) Acute exacerbation of chronic obstructive pulmonary disease (Acute) Acute exacerbation of chronic obstructive pulmonary disease (COPD) (Acute) Drug rash (Acute) Hyperglycemia (Acute) CAP (community acquired pneumonia) (Acute) Hyponatremia (Acute) Dehydration (Acute) Lung nodule, solitary (Acute) RECOMMENDATIONS: 1. Continue Levaquin to complete 7-day treatment course. 2. Continue prednisone 40 mg daily. 3. Continue Lasix. 4. Continue scheduled Atrovent. 5. Continue to wean supplemental oxygen to maintain saturations at or above 88%. 6. Melatonin as needed can be utilized for sleep. 7. Continue PRN BIPAP therapy. IMPRESSIONS: 1. Acute on chronic combined respiratory failure due to COPD exacerbation secondary to community-acquired pneumonia While the patient did require intubation along with invasive mechanical ventilatory support, he was able to be extubated on October 27. He remains on antibiotics, bronchodilators and steroids. Despite this, the patient continues to experience significant oxygen desaturation with even minimal amounts of exertion. Therefore, I am going to proceed with obtaining a CT chest along with repeat echocardiogram. We will also check BNP level. If elevated, his Lasix regimen can be increased. In the interim, he will remain on scheduled Atrovent aerosol treatments. The patient did have rather advanced age COPD on his last known pulmonary function studies in 2009. 2. 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 3. Pulmonary hypertension/personal history of lung cancer/hypertension/hyperlipidemia/advanced age Complicates care, management, recovery and prognosis. Continue home medications as indicated. Physical therapy to work with patient as tolerated. This note was generated with [employer] dictation software. It may contain incorrect words, spelling, and punctuation that were not noted in checking the note before signing. Code Visit Inpatient E&M: [id number] [facility] H[facility] L3
[2018-10-29] MEDS: Ipratropium 0.5 MG/2.5 ML SOLUTION INHALATION ×5 (06:24→22:22)
[2018-10-29] MEDS: predniSONE 20 MG Tablet 40 MG PO (07:35)
[2018-10-29] MEDS: 0.9% NaCl Peripheral Flush Adult/Peds IV ×2 (07:38→07:56)
--- NOTE | 2018-10-29 08:03 | CT_ITS ---
STUDY: CTA CHEST REASON FOR EXAM: Male, 83 years old. HYPOXIA WITH HISTORY OF LUNG CANCER/ RADIATION ONLY RADIATION DOSAGE (If Supplied By Facility): CTDIvol = ( 9.63 ) mGy, DLP = ( 405.71 ) mGycm TECHNIQUE: The examination was performed with the intravenous administration of 75 IV Isovue 370. Post-processing of the angiographic images was performed, with multiplanar reformation and 3D reconstruction. Individualized dose optimization techniques were used for this CT. COMPARISON: 09/27/2016. FINDINGS: Normal enhancement of the main pulmonary artery and right and left pulmonary arteries. Normal enhancement of the bilateral peripheral pulmonary arteries. There is no demonstrated pulmonary embolism. There is atherosclerotic calcification of the aortic arch with tortuosity. There is no demonstrated aortic dissection. Normal heart and pericardium. Normal mediastinum. Normal hilar regions. There is marked hyperexpansion of the lungs. There is markedly severe centrilobular emphysema. Relatively little pulmonary parenchyma is seen. Widespread septal thickening is seen. Stable partially calcified irregular density in the right apex consistent with scar. Increased thick platelike area of irregular spiculated density in the posterior lateral right lower lobe which could be neoplasm. Greatest dimension approximately 6.2 cm, surrounding segmental airways and vascular structures and extending to the pleural surface. Irregular parenchymal densities in the periphery of the lateral right lung base are stable and consistent with scarring. Pleural thickening or small right pleural effusion, significantly improved since previous exam. Small left pleural effusion is new since previous study and associated with some atelectasis in the left lung base. Skeletal structures show widespread demineralization, degenerative changes throughout the spine, and stable partial compression fractures of T12 and L1, but new compression fractures of T10. There are subacute nondisplaced fractures of the right eighth and ninth ribs. Limited views through the upper abdomen show no gross acute abnormalities. CT/CTA Chest W/WO Contrast IMPRESSION: No evidence for PE. Very severe centrilobular emphysema. Very little pulmonary parenchyma is seen. Possible infiltrating malignant mass in the right lower lobe which was not definitely present previously although this area was partially obscured by effusion which has resolved. New small left pleural effusion. Electronically Signed: Khoa Miranda MD at 15:56 EDT , Service support ,
--- NOTE | 2018-10-29 08:04 | ECHOD_ITS ---
Reason For Study: DYSPNEA Procedure This was a 2D Doppler, Color Flow transthoracic echocardiogram. The study was technically difficult. Exam performed portable in ICU/CCU. Left Ventricle Normal LV size. Mild segmental systolic dysfunction (see wall motion). The estimated ejection fraction is 45 %. There is evidence of diastolic dysfunction. Mid-Anterior : Hypokinetic. Mid- Lateral : Hypokinetic. Mid-Posterior: Hypokinetic. Mid-Inferior: Hypokinetic. Mid-inferoseptal : Hypokinetic. Mid-anteroseptal : Hypokinetic. [place] : Hypokinetic. Right Ventricle Normal RV size. ICD or pacer leads identified within the right ventricle. Normal systolic function. Atria The left atrium is mildly enlarged. Normal right atrium. ICD or pacer leads identified within the right atrium. No doppler evidence for ASD. Mitral Valve There is moderate to severe mitral annular calcification. Extension of the mitral annular calcification onto the posterior mitral valve leaflet. Trivial mitral valve insufficiency. Tricuspid Valve Normal tricuspid valve. Mild to moderate (1-2+) tricuspid valve insufficiency. Right ventricular systolic pressure estimated to be 78 mmHg. Aortic Valve Trisinus/trileaflet aortic valve. Moderate diffuse aortic valve thickening. Moderate diffuse aortic valve calcification. Moderate to severe aortic valve stenosis. Pulmonic Valve The pulmonic valve is not well visualized. Great Vessels The aortic root is not well visualized. Pericardium/Pleural No pericardial effusion. MMode/2D Measurements & Calculations LVIDd: 4.3 cm IVSd: 0.85 cm LVOT diam: 2.0 cm LVIDs: 2.7 cm LVPWd: 0.87 cm LVOT area: 3.3 cm2 RVDd: 3.2 cm FS: 36.5 % LAV(MOD-bp): 52.1 ml Aortic Valve Planimetry: 1.1 cm2 LA A4 area: 17.4 cm2 LAV(MOD-bp) Indexed: 28.9 ml/m2 LAV(MOD-sp2): 47.6 ml LAV(MOD-sp4): 50.9 ml LA dimension(2D): 3.5 cm RA A4 area: 13.9 cm2 Time Measurements MV dec time: 0.26 sec Doppler Measurements & Calculations MV E max herb: 153.0 cm/sec Lat Peak E' Herb: 13.9 cm/sec Med Peak E' Herb: 7.2 cm/sec MV A max herb: 175.8 cm/sec E/E' lat: 11.0 E/E' med: 21.2 MV E/A: 0.87 MV V2 max: 188.1 cm/sec Ao V2 max: 303.3 cm/sec LV V1 max: 93.5 cm/sec MV max P.2 mmHg Ao max P.7 mmHg LV V1 max P.6 mmHg MV V2 mean: 103.4 cm/sec Ao V2 mean: 236.6 cm/sec LV V1 mean P.8 mmHg MV mean P.0 mmHg Ao mean P.4 mmHg LV V1 mean: 61.7 cm/sec MV V2 VTI: 42.5 cm Ao V2 VTI: 55.6 cm LV V1 VTI: 15.9 cm MVA(VTI): 1.2 cm2 YVONNE(I,D): 0.93 cm2 YVONNE(V,D): 1.0 cm2 SV(LVOT): 51.6 ml PA V2 max: 111.0 cm/sec TR max herb: 432.4 cm/sec TR max P.9 mmHg MV P1/2t-pr_phl: 61.5 msec Interpretation Summary The study was technically difficult. Mild segmental systolic dysfunction (see wall motion). The estimated ejection fraction is 45 %. The left atrium is mildly enlarged. There is moderate to severe mitral annular calcification. Extension of the mitral annular calcification onto the posterior mitral valve leaflet. Trivial mitral valve insufficiency. Mild to moderate (1-2+) tricuspid valve insufficiency. Moderate to severe aortic valve stenosis. Right ventricular systolic pressure estimated to be 78 mmHg. There is evidence of diastolic dysfunction. Comment: The 2D echocardiographic findings regarding the left ventricular wall motion are potentially c/w a Takotsubo Syndrome. Ordering Physician: Janusz Mccartney D.O. Referring Physician: ED BECKWITH Performed By: Marlys Downey, RDCS, RVT
[2018-10-29] MEDS: CHLORHEXIDINE GLUC 2% CLOTH 1 EACH TOWELETTE TOPICAL (10:16)
[2018-10-29] MEDS: Losartan Potassium 25 MG Tablet PO (10:17)
[2018-10-29] MEDS: Enoxaparin 40 MG/0.4 ML Syringe SC (10:17)
[2018-10-29] MEDS: Senna Tablet 2 TABLET PO ×2 (10:17→21:16)
[2018-10-29] MEDS: Famotidine 20 MG Tablet PO ×2 (10:17→21:16)
[2018-10-29] MEDS: Furosemide 40 MG Tablet PO (10:17)
--- NOTE | 2018-10-29 10:22 | PCM.PN.HOSP ---
Patient Problems: Active and Suspected Problems (Last Reviewed 10/26/18 @ 01:48 by Jacobo Unger MD) Acute respiratory failure with hypoxia and hypercapnia (Acute) Bilateral pneumonia (Acute) Severe sepsis (Acute) Hypotension (Acute) Paroxysmal atrial flutter (Acute) Acute on chronic diastolic (congestive) heart failure (Acute) Acute exacerbation of chronic obstructive pulmonary disease (Acute) Subjective: Patient gets easily tachycardic, tachypneic even on minimal exertion like getting out of bed or sitting on the toilet seat. Respiratory rate 26-30/min. Currently on BiPAP was 70% FiO2 Mild low-grade temperature 99.8?F last evening. Vitals/I&O's: Vital Signs Temp Pulse Resp BP Pulse Ox 98.3 F 109 H 22 H 157/97 H 92 10/29/18 07:34 10/29/18 08:00 10/29/18 08:00 10/29/18 08:00 10/29/18 08:00 Oxygen Flow Rate (L/min) 3 Oxygen Delivery Method Nasal Cannula Weight: 150 lb 12.739 oz Body Mass Index (BMI) 25.2 Intake and Output for Last 24 Hours 10/27/18 10/28/18 10/29/18 23:59 23:59 23:59 Intake Total 1185.8 / 1185.8 1050 / 1050 700 / 700 Output Total 1500 / 1500 0 / 2050 400 / 400 Balance -314.2 / -314.2 -1000 / -1000 300 / 300 General: Alert, Oriented x3, Cooperative HEENT: Atraumatic, PERRLA, EOMI, Normocephalic Neck: Supple, No JVD, Negative Carotid Bruits Lungs: Diminished - Air entry severely diminished, Short of Breath, Tachypneic, Wheezes, - - On BiPAP Cardiovascular: Normal S1, Normal S2, No murmurs, Tachycardic Abdomen: Bowel Sounds Present, Soft, Non Tender, Non-Distended Extremities: Capillary Refill Less than 3 Seconds, Edema Skin: No rashes, No breakdown Musculoskeletal: No Tenderness to Palpation of Joints or Extremities, Arthritic Changes, Muscle Wasting Neurological: Cranial nerves II-XII grossly intact, Deep Tendon Reflexes 2+/4 and Symmetrical, Motor Exam 5/5 strength throughout Psych/Mental Status: Normal Affect, Appropriate Microbiology Past 72 Hours 10/25/18 21:42 Blood Culture (Wb) - Right Hand Blood Culture - Preliminary No growth in 48 hours. 10/25/18 21:30 Blood Culture (Wb) - Anticubital Left Blood Culture - Preliminary No growth in 48 hours. 10/26/18 01:40 Transtracheal Aspirate Gram Stain - Final 10/26/18 01:40 Transtracheal Aspirate Respiratory Culture - Final 10/26/18 00:10 Urine, Clean Catch Urine Culture - Final Culture exhibits no growth. 10/26/18 03:09 Mucosa - Nose Respiratory Panel (PCR) - Final Laboratory Results 10/29/18 10:05: B-Natriuretic Peptide Pending Current Medications Acetaminophen (Tylenol) 650 mg PO Q6H PRN PRN PRN Reason: Mild Pain (scale 0-3)/T>100.7 Last Admin: 10/27/18 16:17 Dose: 650 mg Albuterol Sulfate (Ventolin Aerosols) 2.5 mg INHALATION Q2H PRN PRN PRN Reason: sob/wheezing Chlorhexidine Gluconate () 1 each TOPICAL DAILY [facility] Last Admin: 10/29/18 10:16 Dose: 1 each Enoxaparin Sodium (Lovenox) 40 mg SC DAILY@1000 [facility] Last Admin: 10/29/18 10:17 Dose: 40 mg Famotidine (Pepcid) 20 mg PO BID [facility] Last Admin: 10/29/18 10:17 Dose: 20 mg Furosemide (Lasix) 40 mg PO DAILY [facility] Last Admin: 10/29/18 10:17 Dose: 40 mg Sodium Chloride () 250 mls @ 15 mls/hr IV .[id number] PRN PRN Reason: SALINE FLUSH Levofloxacin (Levaquin Iv) 750 mg in 150 mls @ 100 mls/hr IV Q24@2200 [facility] Last Admin: 10/28/18 21:20 Dose: 100 mls/hr Ipratropium [place] (Atrovent) 0.5 mg INHALATION Q4H.RT [facility] Last Admin: 10/29/18 06:24 Dose: 0.5 mg Losartan Potassium (Cozaar) 25 mg PO DAILY [facility] Last Admin: 10/29/18 10:17 Dose: 25 mg Magnesium Hydroxide (Milk Of Magnesia) 30 ml PO DAILY PRN PRN PRN Reason: Constipation Melatonin (Melatonin) 10 mg PO QHS PRN PRN Reason: INSOMNIA Last Admin: 10/28/18 22:57 Dose: 10 mg Metoclopramide HCl (Metoclopramide Hcl) 5 mg PO TIDAC [facility] Last Admin: 10/29/18 06:15 Dose: 5 mg Nutritional Formula (Lactose Free) (Ensure Enlive) 120 ml PO 4X/DAY [facility] Last Admin: 10/29/18 10:21 Dose: 120 ml Ondansetron HCl (Zofran) 4 mg IV Q8H PRN PRN PRN Reason: NAUSEA Phenol/Menthol (Chloraseptic (Bkc)) 3 spray MM Q2H PRN PRN PRN Reason: SORE THROAT Last Admin: 10/28/18 04:07 Dose: 3 spray Polyethylene Glycol (Miralax) 17 gm PO DAILY PRN PRN PRN Reason: Constipation Prednisone () 40 mg PO DAILY@0800 [facility] Last Admin: 10/29/18 07:35 Dose: 40 mg Senna (Senokot) 2 tablet PO BID [facility] Last Admin: 10/29/18 10:17 Dose: 2 tablet Sodium Chloride () 5 - 15 ml IV UD PRN PRN Reason: SALINE FLUSH Last Admin: 10/29/18 07:56 Dose: 10 ml Medical Necessity - Tobacco Use Smoking Status: Former smoker Assessment/Plan All Active Problems (Last Reviewed 10/26/18 @ 01:48 by Jacobo Unger MD) Acute respiratory failure with hypoxia and hypercapnia (Acute) Bilateral pneumonia (Acute) Severe sepsis (Acute) Hypotension (Acute) Paroxysmal atrial flutter (Acute) Presence of cardiac pacemaker (Acute) Acute on chronic diastolic (congestive) heart failure (Acute) Aortic valve stenosis, nonrheumatic (Acute) History of permanent cardiac pacemaker placement (Resolved) Dyspnea (Acute) Chest pain (Acute) Pulmonary congestion (Acute) Conduction disorder of the heart (Acute) Acute exacerbation of chronic obstructive pulmonary disease (Acute) Acute exacerbation of chronic obstructive pulmonary disease (COPD) (Acute) Drug rash (Acute) Hyperglycemia (Acute) CAP (community acquired pneumonia) (Acute) Hyponatremia (Acute) Dehydration (Acute) Lung nodule, solitary (Acute) The patient is a 83 year old M with a significant medical history of 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, aortic valve stenosis, hypertension, pulmonary hypertension, COPD, lung carcinoma s/p radiation; diastolic dysfunction; 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 1. Severe sepsis secondary to probable community-acquired pneumonia with acute on chronic hypoxic and hypercarbic combined respiratory failure, present since admission: Sepsis (fever of 100.4 Fahrenheit; tachycardia with persistent and highest heart rate of 132; tachypnea with highest respiratory rate of 38; systolic blood pressure blood mid 70s responded with normal saline bolus: On IV Levaquin 750 mg IV daily. Breathing treatment. Urinary antigens are negative. Respiratory panel negative. Blood cultures x2 are negative for more than 48 hours. Sputum from tracheal aspirate shows mixed normal respiratory james. Urine culture is negative. Lactic acid normal Extubated on 10/27/2018. Patient currently is on BiPAP interspersed with nasal cannula. CT chest and echo are ordered 2. Probable exacerbation of COPD most probably secondary to pneumonia Likely due to pneumonia. Breathing treatment and steroid as above 3. Cardiac conditions: Indeterminate mild elevated troponin probably secondary to demand ischemia: Patient denies chest pain. Troponin 0.124, 0.122. It plateaued. Chronic diastolic heart failure/mitral valve calcification. 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 2D echo is ordered per shell grader. BNP 247, elevated suggestive of fluid overload but not in acute heart failure exacerbation range. 4 History of hypertension Currently normotensive 5. History of lung cancer status post radiotherapy, dyslipidemia and limited functional capacity Stress ulcer prophylaxis Pepcid by G-tube. Microbiology Past 72 Hours 10/25/18 21:42 Blood Culture (Wb) - Right Hand Blood Culture - Preliminary No growth in 48 hours. 10/25/18 21:30 Blood Culture (Wb) - Anticubital Left Blood Culture - Preliminary No growth in 48 hours. 10/26/18 01:40 Transtracheal Aspirate Gram Stain - Final 10/26/18 01:40 Transtracheal Aspirate Respiratory Culture - Final 10/26/18 00:10 Urine, Clean Catch Urine Culture - Final Culture exhibits no growth. 10/26/18 03:09 Mucosa - Nose Respiratory Panel (PCR) - Final Laboratory Results 10/29/18 10:05: B-Natriuretic Peptide 247.6 H Code Visit Inpatient E&M: 74190 Subs Hosp L3
[2018-10-29 10:43] LABS: BNP,B-Type NATRIURETIC PEPTIDE 247.6 pg/mL (0-100)
[2018-10-29 12:33] LABS: Pathologist Review Reviewed
--- NOTE | 2018-10-29 15:26 | CASEMGMT ---
FLORINDA GABRIEL NOTE: To room to talk with pt. Pt is resting in bed in no distress. Pt confirms he has oxygen @ home and states he gets through [facility]. Has concentrator and portability. Call placed to [facility] and they confirmed they do supply Home Oxygen for pt and current orders are for 4 L/M. Discussed discharge planning with pt. Pt states he would prefer to be able to go home on discharge but states he would be willing to go to a SNF, stating, I'll do whatever I have to do. States if would need to go to SNF, he has no preference on facility. Corrie BSN FLORINDA CM
[2018-10-29] MEDS: levoFLOXacin IV 750 MG/150 ML BAG 100 MG IV (21:19)
[2018-10-29] MEDS: MELATONIN 10 MG TABLET PO (21:38)
[2018-10-30] VITALS (34 sets, daily range): BP systolic 92–136; BP diastolic 58–91; PULSE 87–119; RESP 12–34; TEMP 18.9–37.8; O2SAT 92–100
--- NOTE | 2018-10-30 06:37 | PN_ITS ---
Subjective: The patient was seen and examined at the bedside this morning. Events from the last 24 hours have been reviewed. The patient is currently afebrile, hemodynamically stable and maintaining appropriate oxygen saturations on 5 L/min via nasal cannula. The patient wore his BiPAP overnight for approximately 40 minutes. The patient is currently documented to be overall net -1 L for the admission. Due to the tenuous nature of the patient's respiratory status, a CTA chest and echocardiogram were obtained yesterday. I did previously see the patient in the pulmonary medicine clinic in June 2017. At that time, the patient had a baseline 3-4 L/min supplemental oxygen requirement. The patient has a smoking history that includes 1 pack of cig arettes daily times 5 years, which was then followed by cigar consumption of 30 cigars weekly from 1962 2008. The patient has been on supplemental oxygen since January 2017. He has a history of non-small cell lung cancer, diagnosed through the [facility], for which he underwent radiation treatment. He is currently prescribed Anoro on an outpatient basis. Prior attempts by our office to obtain the patient's medical oncology records have been unsuccessful. The patient does report that he was scheduled to follow-up with his oncologist in February. OUTSIDE MEDICAL RECORDS FROM [facility]: Pulmonary medicine office visit on August 29, [address] Li: Reports that patient is using Anoro daily. Also reported worsening dysphagia with concern that patient may need to be seen again by GI for potential EGD and dilation. The patient does have a history of lung cancer of the right lower lobe (T2N0M0), s/p SBRT completed 10/19/2015. Follow-up PET scan from June 2017 revealed resolution of the right lower lobe mass. CT chest from June 2018 revealed no evidence of recurrence. CT chest without contrast dated June 2018 revealed significant bilateral emphysema, stable calcified biapical scarring, most pronounced in the right apex. There was demonstration of an ill-defined region of consolidation in the right lung base with radiating bands of scar/fibrosis and associated volume loss, consistent with post radiation fibrosis. There was a stable appearing 5 mm nodule in the left lower lobe. Objective: The patient's most recent lab work, culture data and imaging studies have all been personally reviewed. Respiratory viral panel was negative. Strep and urine Legionella antigens were both negative. Blood and urine cultures have been unremarkable. Sputum culture appears to be normal respiratory james. CTA chest revealed no evidence for pulmonary embolism. However, there was evidence of hyperinflated lung tran with extremely significant bilateral emphysematous changes. There did appear to be an irregular appearing density in the lateral aspect of the right lower lobe, which was obscured on prior chest imaging studies by the presence of effusion. There was also evidence of a left-sided pleural effusion. Surface echocardiogram revealed mild segmental systolic dysfunction with an ejection fraction of 45%. There was also evidence of diastolic dysfunction. Right ventricular systolic pressure was estimated to be 78 mmHg. There was also evidence of moderate to severe aortic stenosis. General: Alert, Oriented x3, Cooperative, No apparent distress, - - Resting comfortably in bed on nasal cannula supplemental oxygen HEENT: Atraumatic, PERRLA, Normocephalic Oral: No Gingival or Mucosal Lesions/ Ulcerations Neck: Supple, No Nodes, Trachea Midline Lungs: - - Globally diminished air movement throughout all lung tran. Cardiovascular: Normal S1, Normal S2, No murmurs, Tachycardic Abdomen: Bowel Sounds Present, Soft, Non Tender Extremities: No cyanosis, No edema, Clubbing Skin: - - No significant change from previous Musculoskeletal: No Tenderness to Palpation of Joints or Extremities Lymphatic: No Cervical, Supraclavicular, or Inguinal Adenopathy Neurological: Cranial nerves II-XII grossly intact, Neuro grossly intact Psych/Mental Status: Normal Affect, Appropriate Vital Signs Temp Pulse Resp BP Pulse Ox 18.9 C L 99 20 H 96/67 100 10/30/18 06:00 10/30/18 06:00 10/30/18 06:00 10/30/18 06:00 10/30/18 06:00 Oxygen Flow Rate (L/min) 6 Oxygen Delivery Method Nasal Cannula Weight: 148 lb 5.938 oz Body Mass Index (BMI) 25.2 Intake and Output for Last 24 Hours 10/28/18 10/29/18 10/30/18 23:59 23:59 23:59 Intake Total 1050 / 1050 1140 / 1140 468 / 468 Output Total 2049 / 2049 1200 / 1200 375 / 375 Balance -1000 / -1000 -60 / -60 93 / 93 Labs (Last 48 Hours) 10/25/18 10/29/18 21:30 10:05 Diff Path Review Reviewed B-Natriuretic Peptide 247.6 H Microbiology 10/25/18 21:42 Blood Culture (Wb) - Right Hand Blood Culture - Preliminary No growth in 48 hours. 10/25/18 21:30 Blood Culture (Wb) - Anticubital Left Blood Culture - Preliminary No growth in 48 hours. 10/26/18 01:40 Transtracheal Aspirate Gram Stain - Final 10/26/18 01:40 Transtracheal Aspirate Respiratory Culture - Final 10/26/18 00:10 Urine, Clean Catch Urine Culture - Final Culture exhibits no growth. Labs (Last 48 Hours) 10/25/18 10/29/18 21:30 10:05 Diff Path Review Reviewed B-Natriuretic Peptide 247.6 H Microbiology 10/25/18 21:42 Blood Culture (Wb) - Right Hand Blood Culture - Preliminary No growth in 48 hours. 10/25/18 21:30 Blood Culture (Wb) - Anticubital Left Blood Culture - Preliminary No growth in 48 hours. 10/26/18 01:40 Transtracheal Aspirate Gram Stain - Final 10/26/18 01:40 Transtracheal Aspirate Respiratory Culture - Final 10/26/18 00:10 Urine, Clean Catch Urine Culture - Final Culture exhibits no growth. Clinical Impression(s) from Imaging Studies Chest X-Ray 10/25/18 21:10 IMPRESSION: Increased diffuse interstitial findings particularly in the lower and midlung zones becoming somewhat confluent in areas and could be obscuring underlying nodules/nodular infiltrate. Similar interstitial changes of the right lung. Metastatic disease versus pneumonic process versus lymphangitic carcinomatosis. The confluence of opacity in the right lower lung zone is somewhat larger and less well defined. Fairly stable basilar right pleural effusion or pleural thickening. Severe emphysematous changes are apparent in the upper lung zones. Electronically Signed: Umm Jiménez MD at 21:33 EDT , Service support , Chest X-Ray 10/25/18 23:24 IMPRESSION: Bilateral interstitial densities and patchy infiltrates, similar to the previous study. Stable right pleural effusion. Questionable left midlung peripheral nodular densities. Electronically Signed: Collin Fields DO at 23:54 EDT Tel [phone], Service support , Chest X-Ray 10/28/18 07:51 IMPRESSION: Since prior study, the patient has been extubated. The orogastric tube has been removed. Progressive infiltration in the right lower lobe with small bilateral effusions worse on the right side. Electronically Signed: Caleb Devan, at 9:12 EDT , Service support , Chest CTA 10/29/18 08:03 IMPRESSION: No evidence for PE. Very severe centrilobular emphysema. Very little pulmonary parenchyma is seen. Possible infiltrating malignant mass in the right lower lobe which was not definitely present previously although this area was partially obscured by effusion which has resolved. New small left pleural effusion. Electronically Signed: Khoa Miranda MD at 15:56 EDT , Service support , Medical Necessity - Tobacco Use Smoking Status: Former smoker Assessment/Plan All Active Problems (Last Reviewed 10/26/18 @ 01:48 by Jacobo Unger MD) Acute respiratory failure with hypoxia and hypercapnia (Acute) Bilateral pneumonia (Acute) Severe sepsis (Acute) Hypotension (Acute) Paroxysmal atrial flutter (Acute) Presence of cardiac pacemaker (Acute) Acute on chronic diastolic (congestive) heart failure (Acute) Aortic valve stenosis, nonrheumatic (Acute) History of permanent cardiac pacemaker placement (Resolved) Dyspnea (Acute) Chest pain (Acute) Pulmonary congestion (Acute) Conduction disorder of the heart (Acute) Acute exacerbation of chronic obstructive pulmonary disease (Acute) Acute exacerbation of chronic obstructive pulmonary disease (COPD) (Acute) Drug rash (Acute) Hyperglycemia (Acute) CAP (community acquired pneumonia) (Acute) Hyponatremia (Acute) Dehydration (Acute) Lung nodule, solitary (Acute) RECOMMENDATIONS: 1. Continue Levaquin to complete 7-day treatment course. 2. Continue prednisone 40 mg daily. 3. Increased to Lasix IV 40 mg twice daily. 4. Continue scheduled Atrovent. 5. Continue to wean supplemental oxygen to maintain saturations at or above 88%. 6. Melatonin as needed can be utilized for sleep. 7. Continue PRN BIPAP therapy. IMPRESSIONS: 1. Acute on chronic combined respiratory failure due to COPD exacerbation secondary to community-acquired pneumonia While the patient did require intubation along with invasive mechanical ventilatory support, he was able to be extubated on October 27. He remains on antibiotics, bronchodilators and steroids. Despite this, the patient continues to experience significant oxygen desaturation with even minimal amounts of exertion. Subsequent CTA chest revealed no evidence for PE. There was evidence of a right lower lobe density, which per reports from [facility] in 2018 was present and felt to be the consequence of post radiation fibrosis. There was also evidence of a small left pleural effusion. Given the patient's underlying decompensated cardiac function, will increase his diuretic regimen today. In the interim, he will remain on scheduled Atrovent aerosol treatments. The patient did have rather advanced age COPD on his last known pulmonary function studies in 2009, along with significant bilateral emphysematous changes on chest imaging. 2. Abnormal chest imaging studies/history of non-small cell lung cancer The patient's CTA chest revealed significant bilateral emphysematous changes with a stable appearing irregular density in the right lung apex. However, there is an irregular spiculated density in the lateral right lower lobe, which could be technical services representative of neoplasm. From a review of the reports of the patient's prior chest CT in 2018 from [facility], it appears that this lesion was likely present at that time and felt to be the consequence of post radiation fibrosis. However, I do not have the physical copies of the imaging study to personally review. 3. 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 The patient's systolic dysfunction is new and his LV wall dysfunction may be consistent with an underlying Takotsubo Syndrome. Given that the patient does have pleural effusion noted on his chest imaging study, will increase his Lasix regimen accordingly. 4. Pulmonary hypertension/hypertension/hyperlipidemia/advanced age Complicates care, management, recovery and prognosis. Continue home medications as indicated. Physical therapy to work with patient as tolerated. 5. CODE STATUS I spoke with both the patient and his at the bedside at length this morning regarding his underlying lung disease and options for CODE STATUS. At the current time, the patient seems reluctant to make a change from full code to DNR CCA. In August 2017, he was referred to palliative care by our office. However, the patient later declined the referral. This note was generated with [employer] dictation software. It may contain incorrect words, spelling, and punctuation that were not noted in checking the note before signing. Code Visit Inpatient E&M: 35363 Subs Hosp L3
[2018-10-30] MEDS: Ipratropium 0.5 MG/2.5 ML SOLUTION INHALATION ×4 (07:08→22:55)
[2018-10-30 07:10] LABS: Absolute Lymphocyte Count 2.13 X10^3/ul (0.83-4.51); Absolute Neutrophil Count 5.7 X10^3/uL (2.0-7.7); Basophil# 0.01 X10^3/uL; Basophil% 0.1 % (0-1); Eosinophil# 0.29 X10^3/uL; Hematocrit 39.5 % (40-54); Hemoglobin 12.7 g/dl (13.0-16.5); Lymphocyte # 2.13 X10^3/ul (4.0); Lymphocyte % 22.1 % (19-41); Mean Corp Hgb Conc 32.2 g/gl (32-36); Mean Corpuscular Hgb 30.1 pg (27.0-32.0); Mean Corpuscular Volume 93.6 fL (80-94); Monocyte# 1.48 X10^3/uL; Monocyte% 15.4 % (0-10); Neutrophil # 5.65 X10^3/uL (2.7-7.7); Neutrophil % 58.8 % (47-70); Platelet Count 182 K/mm3 (150-450); RBC Distribution Width CV 12.1 % (11.6-14.6); RBC Distribution Width SD 40.9 fl (35.1-43.9); Red Blood Count 4.22 M/mm3 (4.6-6.2); White Blood Count 9.6 K/mm3 (4.4-11.0)
[2018-10-30 07:13] LABS: POSITIVE COUNT NO; POSITIVE DIFFERENTIAL NO; POSITIVE MORPHOLOGY NO
[2018-10-30 07:22] LABS: Anion Gap 5 (5-15); BUN 29 mg/dL (7-18); BUN/Creat Ratio 39.1 RATIO (10-20); Calcium,Total 8.8 mg/dL (8.5-10.1); Chloride 99 mmol/L (98-107); Creatinine, Serum 0.74 mg/dL (0.70-1.30); EST Glomerular Filtration Rate 107 mL/min (>60); Est Glom Filt Rate - Afr Amer 130 mL/min (>60); Estimated Creatinine Clearance 53.25 ml/min; Glucose 94 mg/dL (74-106); Potassium 3.9 mmol/L (3.5-5.1); Sodium Level 140 mmol/L (136-145)
[2018-10-30] MEDS: Metoclopramide 5 MG TABLET PO ×3 (08:03→17:09)
[2018-10-30] MEDS: CHLORHEXIDINE GLUC 2% CLOTH 1 EACH TOWELETTE TOPICAL (09:21)
[2018-10-30] MEDS: predniSONE 20 MG Tablet 40 MG PO (09:22)
[2018-10-30] MEDS: Losartan Potassium 25 MG Tablet PO (09:22)
[2018-10-30] MEDS: Famotidine 20 MG Tablet PO ×2 (09:23→21:54)
[2018-10-30] MEDS: Enoxaparin 40 MG/0.4 ML Syringe SC (09:23)
[2018-10-30] MEDS: Furosemide 40 MG/4 ML Vial IV ×2 (09:23→17:09)
[2018-10-30] MEDS: 0.9% NaCl Peripheral Flush Adult/Peds IV ×2 (09:23→17:12)
--- NOTE | 2018-10-30 10:57 | CASEMGMT ---
SW accompanied physician to talk with patient and his regarding plan of care and code status. Currently [facility] is waiting on records from [facility]. SW let patient and his know SW is here if support is needed. They thanked DOROTEO for stopping by. DOROTEO and FLORINDA GABRIEL to follow. Kathrine RAMIREZ MSW
--- NOTE | 2018-10-30 11:33 | CASEMGMT ---
FLORINDA GABRIEL Note: Dr. Mccartney and Cy SADLER spoke with pt earlier re: plan of care and code status. FLORINDA GABRIEL intro role of CM to patient in room and discussed his current oxygen through [facility] and needing new script. Pt may wish to transfer to local oxygen company if he returns home. Pt stated I'm not sure what's going to happen yet. FLORINDA GABRIEL sat with pt and asked if he wished to talk about his meeting with Dr. Mccartney. Pt voiced his awareness that cancer may have progressed and he may not have much time left. FLORINDA GABRIEL offered emotional support and spoke with pt for a while allowing him to express his concerns and worry over the possibility of receiving distressing news when testing is completed and clinical information from [facility] is received by Dr. Mccartney. Pt was calm throughout conversation. FLORINDA GABRIEL offered to call beef cattle farm manager or pt's clergy but he declined stating he wanted to wait until he had definitive news re: tests from Dr. Mccartney. FLORINDA GABRIEL offered to return if pt had further questions/concerns. DC Planning deferred at this time.Payton NEELY BSN ACM
--- NOTE | 2018-10-30 12:08 | PCM.PN.HOSP ---
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 Mild tachycardia. Shortness of breath seems improving. There is better than yesterday. On 5 L of oxygen through nasal cannula. Outside medical record reviewed. Discussed with Dr. Mccartney. Vitals/I&O's: Vital Signs Temp Pulse Resp BP Pulse Ox 99.7 F H 108 H 18 133/75 H 99 10/30/18 08:00 10/30/18 11:15 10/30/18 11:15 10/30/18 08:00 10/30/18 08:00 Oxygen Flow Rate (L/min) 5 Oxygen Delivery Method Nasal Cannula Weight: 148 lb 5.938 oz Body Mass Index (BMI) 25.2 Intake and Output for Last 24 Hours 10/28/18 10/29/18 10/30/18 23:59 23:59 23:59 Intake Total 1050 / 1050 1140 / 1140 948 / 948 Output Total 2049 / 2049 1200 / 1200 1100 / 1100 Balance -1000 / -1000 -60 / -60 -152 / -152 General: Alert, Oriented x3, Cooperative HEENT: Atraumatic, PERRLA, EOMI, Normocephalic Neck: Supple, No JVD, Negative Carotid Bruits Lungs: Diminished - Air entry severely diminished., Rhonchi, Short of Breath Cardiovascular: Regular Rhythm, Normal S1, Normal S2, No murmurs, Tachycardic Abdomen: Bowel Sounds Present, Soft, Non Tender, Non-Distended Extremities: No edema, Capillary Refill Less than 3 Seconds Skin: No rashes, No breakdown Musculoskeletal: No Tenderness to Palpation of Joints or Extremities, Arthritic Changes, Muscle Wasting Lymphatic: No Cervical, Supraclavicular, or Inguinal Adenopathy Neurological: Cranial nerves II-XII grossly intact, Deep Tendon Reflexes 2+/4 and Symmetrical, Neuro grossly intact Psych/Mental Status: Normal Affect, Appropriate Microbiology Past 72 Hours 10/25/18 21:42 Blood Culture (Wb) - Right Hand Blood Culture - Preliminary No growth in 48 hours. 10/25/18 21:30 Blood Culture (Wb) - Anticubital Left Blood Culture - Preliminary No growth in 48 hours. 10/26/18 01:40 Transtracheal Aspirate Gram Stain - Final 10/26/18 01:40 Transtracheal Aspirate Respiratory Culture - Final 10/26/18 00:10 Urine, Clean Catch Urine Culture - Final Culture exhibits no growth. Laboratory Results 10/25/18 21:30: Diff Path Review Reviewed 10/30/18 06:57: WBC 9.6, RBC 4.22 L, Hgb 12.7 L, Hct 39.5 L, MCV 93.6, MCH 30.1, MCHC 32.2, RDW 12.1, RDW Differential 40.9, Plt Count 182, MPV 9.0, Immature Gran % (Auto) 0.600, Neut % (Auto) 58.8, Lymph % (Auto) 22.1, Gilliam % (Auto) 15.4 H, Eos % (Auto) 3.0, Baso % (Auto) 0.1, Absolute Neuts (auto) 5.7, Absolute Lymphs (auto) 2.13, Total Counted Not Reportable 10/30/18 06:57: Sodium 140, Potassium 3.9, Chloride 99, Carbon Dioxide 36.0 H, Anion Gap 5, BUN 29 H, Creatinine 0.74, Estim Creat Clear Calc 53.25, Est GFR (MDRD) Af Amer 130, Est GFR (MDRD) Non-Af 107, BUN/Creatinine Ratio 39.1 H, Glucose 94, Calcium 8.8 Current Medications Acetaminophen (Tylenol) 650 mg PO Q6H PRN PRN PRN Reason: Mild Pain (scale 0-3)/T>100.7 Last Admin: 10/27/18 16:17 Dose: 650 mg Albuterol Sulfate (Ventolin Aerosols) 2.5 mg INHALATION Q2H PRN PRN PRN Reason: sob/wheezing Chlorhexidine Gluconate () 1 each TOPICAL DAILY [facility] Last Admin: 10/30/18 09:21 Dose: 1 each Enoxaparin Sodium (Lovenox) 40 mg SC DAILY@1000 [facility] Last Admin: 10/30/18 09:23 Dose: 40 mg Famotidine (Pepcid) 20 mg PO BID [facility] Last Admin: 10/30/18 09:23 Dose: 20 mg Furosemide (Lasix) 40 mg IV BID@1000,1800 [facility] Last Admin: 10/30/18 09:23 Dose: 40 mg Sodium Chloride () 250 mls @ 15 mls/hr IV .[id number] PRN PRN Reason: SALINE FLUSH Levofloxacin (Levaquin Iv) 750 mg in 150 mls @ 100 mls/hr IV Q24@2200 [facility] Last Admin: 10/29/18 21:19 Dose: 100 mls/hr Ipratropium [place] (Atrovent) 0.5 mg INHALATION Q4H.RT [facility] Last Admin: 10/30/18 11:15 Dose: 0.5 mg Losartan Potassium (Cozaar) 25 mg PO DAILY [facility] Last Admin: 10/30/18 09:22 Dose: 25 mg Magnesium Hydroxide (Milk Of Magnesia) 30 ml PO DAILY PRN PRN PRN Reason: Constipation Melatonin (Melatonin) 10 mg PO QHS PRN PRN Reason: INSOMNIA Last Admin: 10/29/18 21:38 Dose: 10 mg Metoclopramide HCl (Metoclopramide Hcl) 5 mg PO TIDAC [facility] Last Admin: 10/30/18 11:56 Dose: 5 mg Nutritional Formula (Lactose Free) (Ensure Enlive) 120 ml PO 4X/DAY [facility] Last Admin: 10/30/18 09:28 Dose: 120 ml Ondansetron HCl (Zofran) 4 mg IV Q8H PRN PRN PRN Reason: NAUSEA Phenol/Menthol (Chloraseptic (Bkc)) 3 spray MM Q2H PRN PRN PRN Reason: SORE THROAT Last Admin: 10/28/18 04:07 Dose: 3 spray Polyethylene Glycol (Miralax) 17 gm PO DAILY PRN PRN PRN Reason: Constipation Prednisone () 40 mg PO DAILY@0800 [facility] Last Admin: 10/30/18 09:22 Dose: 40 mg Senna (Senokot) 2 tablet PO BID [facility] Last Admin: 10/30/18 09:29 Dose: Not Given Sodium Chloride () 5 - 15 ml IV UD PRN PRN Reason: SALINE FLUSH Last Admin: 10/30/18 09:23 Dose: 10 ml Medical Necessity - Tobacco Use Smoking Status: Former smoker Assessment/Plan All Active Problems (Last Reviewed 10/26/18 @ 01:48 by Jacobo Unger MD) Acute respiratory failure with hypoxia and hypercapnia (Acute) Bilateral pneumonia (Acute) Severe sepsis (Acute) Hypotension (Acute) Paroxysmal atrial flutter (Acute) Presence of cardiac pacemaker (Acute) Acute on chronic diastolic (congestive) heart failure (Acute) Aortic valve stenosis, nonrheumatic (Acute) History of permanent cardiac pacemaker placement (Resolved) Dyspnea (Acute) Chest pain (Acute) Pulmonary congestion (Acute) Conduction disorder of the heart (Acute) Acute exacerbation of chronic obstructive pulmonary disease (Acute) Acute exacerbation of chronic obstructive pulmonary disease (COPD) (Acute) Drug rash (Acute) Hyperglycemia (Acute) CAP (community acquired pneumonia) (Acute) Hyponatremia (Acute) Dehydration (Acute) Lung nodule, solitary (Acute) The patient is a 83 year old M with a significant medical history of 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, aortic valve stenosis, hypertension, pulmonary hypertension, COPD, lung carcinoma s/p radiation; diastolic dysfunction; 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 1. Severe sepsis secondary to probable community-acquired pneumonia with acute on chronic hypoxic and hypercarbic combined respiratory failure, present since admission: Sepsis (fever of 100.4 Fahrenheit; tachycardia with persistent and highest heart rate of 132; tachypnea with highest respiratory rate of 38; systolic blood pressure blood mid 70s responded with normal saline bolus: On IV Levaquin 750 mg IV daily. Breathing treatment. Urinary antigens are negative. Respiratory panel negative. Blood cultures x2 are negative for more than 48 hours. Sputum from tracheal aspirate shows mixed normal respiratory james. Urine culture is negative. Lactic acid normal Extubated on 10/27/2018. Patient currently is on BiPAP interspersed with nasal cannula. CT chest and echo reviewed. CT chest shows very severe centrilobular emphysema with very little pulmonary parenchyma seen. It also shows irregular appearing mass in the right lower lobe which was previously obscured by presence of effusion but now resolved. Left-sided pleural effusion. 2. Probable exacerbation of COPD most probably secondary to pneumonia Likely due to pneumonia. Breathing treatment and steroid as above 3. Cardiac conditions: Indeterminate mild elevated troponin probably secondary to demand ischemia: Patient denies chest pain. Troponin 0.124, 0.122. It plateaued. Chronic diastolic heart failure/mitral valve calcification. 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 BNP 247, elevated suggestive of fluid overload but not in acute heart failure exacerbation range. 4 History of hypertension Currently normotensive 5. History of lung cancer status post radiotherapy: Patient has history of lung cancer of right lower lobe status post radiotherapy on 10/19/2015. Follow-up PET scan in June 2017 shows resolution of mass. CT chest from June 2018 revealed no evidence of recurrence. CT chest June 2018 showed significant bilateral emphysema, ill-defined consolidation in the right lung base with radiation bands of scarring and fibrosis with volume loss consistent with postradiation fibrosis. 6. dyslipidemia and limited functional capacity Stress ulcer prophylaxis Pepcid by G-tube. CODE STATUS was discussed with the patient and his by Dr. Mccartney. They are reluctant for DNR CC arrest. We will continue full code. Microbiology Past 72 Hours 10/25/18 21:42 Blood Culture (Wb) - Right Hand Blood Culture - Preliminary No growth in 48 hours. 10/25/18 21:30 Blood Culture (Wb) - Anticubital Left Blood Culture - Preliminary No growth in 48 hours. 10/26/18 01:40 Transtracheal Aspirate Gram Stain - Final 10/26/18 01:40 Transtracheal Aspirate Respiratory Culture - Final 10/26/18 00:10 Urine, Clean Catch Urine Culture - Final Culture exhibits no growth. Laboratory Results 10/25/18 21:30: Diff Path Review Reviewed 10/30/18 06:57: WBC 9.6, RBC 4.22 L, Hgb 12.7 L, Hct 39.5 L, MCV 93.6, MCH 30.1, MCHC 32.2, RDW 12.1, RDW Differential 40.9, Plt Count 182, MPV 9.0, Immature Gran % (Auto) 0.600, Neut % (Auto) 58.8, Lymph % (Auto) 22.1, Gilliam % (Auto) 15.4 H, Eos % (Auto) 3.0, Baso % (Auto) 0.1, Absolute Neuts (auto) 5.7, Absolute Lymphs (auto) 2.13, Total Counted Not Reportable 10/30/18 06:57: Sodium 140, Potassium 3.9, Chloride 99, Carbon Dioxide 36.0 H, Anion Gap 5, BUN 29 H, Creatinine 0.74, Estim Creat Clear Calc 53.25, Est GFR (MDRD) Af Amer 130, Est GFR (MDRD) Non-Af 107, BUN/Creatinine Ratio 39.1 H, Glucose 94, Calcium 8.8 Clinical Impression(s) from Imaging Studies Chest X-Ray 10/25/18 21:10 IMPRESSION: Increased diffuse interstitial findings particularly in the lower and midlung zones becoming somewhat confluent in areas and could be obscuring underlying nodules/nodular infiltrate. Similar interstitial changes of the right lung. Metastatic disease versus pneumonic process versus lymphangitic carcinomatosis. The confluence of opacity in the right lower lung zone is somewhat larger and less well defined. Fairly stable basilar right pleural effusion or pleural thickening. Severe emphysematous changes are apparent in the upper lung zones. Chest X-Ray 10/25/18 23:24 IMPRESSION: Bilateral interstitial densities and patchy infiltrates, similar to the previous study. Stable right pleural effusion. Questionable left midlung peripheral nodular densities. Chest X-Ray 10/28/18 07:51 IMPRESSION: Since prior study, the patient has been extubated. The orogastric tube has been removed. Progressive infiltration in the right lower lobe with small bilateral effusions worse on the right side. Chest CTA 10/29/18 08:03 IMPRESSION: No evidence for PE. Very severe centrilobular emphysema. Very little pulmonary parenchyma is seen. Possible infiltrating malignant mass in the right lower lobe which was not definitely present previously although this area was partially obscured by effusion which has resolved. New small left pleural effusion. Code Visit Inpatient E&M: 48379 Subs Hosp L3
--- NOTE | 2018-10-30 12:19 | PN_ITS ---
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 Mild tachycardia. Shortness of breath seems improving. There is better than yesterday. On 5 L of oxygen through nasal cannula. Outside medical record reviewed. Discussed with Dr. Mccartney. Vitals/I&O's: Vital Signs Temp Pulse Resp BP Pulse Ox 99.7 F H 108 H 18 133/75 H 99 10/30/18 08:00 10/30/18 11:15 10/30/18 11:15 10/30/18 08:00 10/30/18 08:00 Oxygen Flow Rate (L/min) 5 Oxygen Delivery Method Nasal Cannula Weight: 148 lb 5.938 oz Body Mass Index (BMI) 25.2 Intake and Output for Last 24 Hours 10/28/18 10/29/18 10/30/18 23:59 23:59 23:59 Intake Total 1050 / 1050 1140 / 1140 948 / 948 Output Total 2049 / 2049 1200 / 1200 1100 / 1100 Balance -1000 / -1000 -60 / -60 -152 / -152 General: Alert, Oriented x3, Cooperative HEENT: Atraumatic, PERRLA, EOMI, Normocephalic Neck: Supple, No JVD, Negative Carotid Bruits Lungs: Diminished - Air entry severely diminished., Rhonchi, Short of Breath Cardiovascular: Regular Rhythm, Normal S1, Normal S2, No murmurs, Tachycardic Abdomen: Bowel Sounds Present, Soft, Non Tender, Non-Distended Extremities: No edema, Capillary Refill Less than 3 Seconds Skin: No rashes, No breakdown Musculoskeletal: No Tenderness to Palpation of Joints or Extremities, Arthritic Changes, Muscle Wasting Lymphatic: No Cervical, Supraclavicular, or Inguinal Adenopathy Neurological: Cranial nerves II-XII grossly intact, Deep Tendon Reflexes 2+/4 and Symmetrical, Neuro grossly intact Psych/Mental Status: Normal Affect, Appropriate Microbiology Past 72 Hours 10/25/18 21:42 Blood Culture (Wb) - Right Hand Blood Culture - Preliminary No growth in 48 hours. 10/25/18 21:30 Blood Culture (Wb) - Anticubital Left Blood Culture - Preliminary No growth in 48 hours. 10/26/18 01:40 Transtracheal Aspirate Gram Stain - Final 10/26/18 01:40 Transtracheal Aspirate Respiratory Culture - Final 10/26/18 00:10 Urine, Clean Catch Urine Culture - Final Culture exhibits no growth. Laboratory Results 10/25/18 21:30: Diff Path Review Reviewed 10/30/18 06:57: WBC 9.6, RBC 4.22 L, Hgb 12.7 L, Hct 39.5 L, MCV 93.6, MCH 30.1, MCHC 32.2, RDW 12.1, RDW Differential 40.9, Plt Count 182, MPV 9.0, Immature Gran % (Auto) 0.600, Neut % (Auto) 58.8, Lymph % (Auto) 22.1, Burt % (Auto) 15.4 H, Eos % (Auto) 3.0, Baso % (Auto) 0.1, Absolute Neuts (auto) 5.7, Absolute Lymphs (auto) 2.13, Total Counted Not Reportable 10/30/18 06:57: Sodium 140, Potassium 3.9, Chloride 99, Carbon Dioxide 36.0 H, Anion Gap 5, BUN 29 H, Creatinine 0.74, Estim Creat Clear Calc 53.25, Est GFR (MDRD) Af Amer 130, Est GFR (MDRD) Non-Af 107, BUN/Creatinine Ratio 39.1 H, Glucose 94, Calcium 8.8 Current Medications Acetaminophen (Tylenol) 650 mg PO Q6H PRN PRN PRN Reason: Mild Pain (scale 0-3)/T>100.7 Last Admin: 10/27/18 16:17 Dose: 650 mg Albuterol Sulfate (Ventolin Aerosols) 2.5 mg INHALATION Q2H PRN PRN PRN Reason: sob/wheezing Chlorhexidine Gluconate () 1 each TOPICAL DAILY [facility] Last Admin: 10/30/18 09:21 Dose: 1 each Enoxaparin Sodium (Lovenox) 40 mg SC DAILY@1000 [facility] Last Admin: 10/30/18 09:23 Dose: 40 mg Famotidine (Pepcid) 20 mg PO BID [facility] Last Admin: 10/30/18 09:23 Dose: 20 mg Furosemide (Lasix) 40 mg IV BID@1000,1800 [facility] Last Admin: 10/30/18 09:23 Dose: 40 mg Sodium Chloride () 250 mls @ 15 mls/hr IV .[id number] PRN PRN Reason: SALINE FLUSH Levofloxacin (Levaquin Iv) 750 mg in 150 mls @ 100 mls/hr IV Q24@2200 [facility] Last Admin: 10/29/18 21:19 Dose: 100 mls/hr Ipratropium [place] (Atrovent) 0.5 mg INHALATION Q4H.RT [facility] Last Admin: 10/30/18 11:15 Dose: 0.5 mg Losartan Potassium (Cozaar) 25 mg PO DAILY [facility] Last Admin: 10/30/18 09:22 Dose: 25 mg Magnesium Hydroxide (Milk Of Magnesia) 30 ml PO DAILY PRN PRN PRN Reason: Constipation Melatonin (Melatonin) 10 mg PO QHS PRN PRN Reason: INSOMNIA Last Admin: 10/29/18 21:38 Dose: 10 mg Metoclopramide HCl (Metoclopramide Hcl) 5 mg PO TIDAC [facility] Last Admin: 10/30/18 11:56 Dose: 5 mg Nutritional Formula (Lactose Free) (Ensure Enlive) 120 ml PO 4X/DAY [facility] Last Admin: 10/30/18 09:28 Dose: 120 ml Ondansetron HCl (Zofran) 4 mg IV Q8H PRN PRN PRN Reason: NAUSEA Phenol/Menthol (Chloraseptic (Bkc)) 3 spray MM Q2H PRN PRN PRN Reason: SORE THROAT Last Admin: 10/28/18 04:07 Dose: 3 spray Polyethylene Glycol (Miralax) 17 gm PO DAILY PRN PRN PRN Reason: Constipation Prednisone () 40 mg PO DAILY@0800 [facility] Last Admin: 10/30/18 09:22 Dose: 40 mg Senna (Senokot) 2 tablet PO BID [facility] Last Admin: 10/30/18 09:29 Dose: Not Given Sodium Chloride () 5 - 15 ml IV UD PRN PRN Reason: SALINE FLUSH Last Admin: 10/30/18 09:23 Dose: 10 ml Medical Necessity - Tobacco Use Smoking Status: Former smoker Assessment/Plan All Active Problems (Last Reviewed 10/26/18 @ 01:48 by Jacobo Unger MD) Acute respiratory failure with hypoxia and hypercapnia (Acute) Bilateral pneumonia (Acute) Severe sepsis (Acute) Hypotension (Acute) Paroxysmal atrial flutter (Acute) Presence of cardiac pacemaker (Acute) Acute on chronic diastolic (congestive) heart failure (Acute) Aortic valve stenosis, nonrheumatic (Acute) History of permanent cardiac pacemaker placement (Resolved) Dyspnea (Acute) Chest pain (Acute) Pulmonary congestion (Acute) Conduction disorder of the heart (Acute) Acute exacerbation of chronic obstructive pulmonary disease (Acute) Acute exacerbation of chronic obstructive pulmonary disease (COPD) (Acute) Drug rash (Acute) Hyperglycemia (Acute) CAP (community acquired pneumonia) (Acute) Hyponatremia (Acute) Dehydration (Acute) Lung nodule, solitary (Acute) The patient is a 83 year old M with a significant medical history of 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, aortic valve stenosis, hypertension, pulmonary hypertension, COPD, lung carcinoma s/p radiation; diastolic dysfunction; 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 1. Severe sepsis secondary to probable community-acquired pneumonia with acute on chronic hypoxic and hypercarbic combined respiratory failure, present since admission: Sepsis (fever of 100.4 Fahrenheit; tachycardia with persistent and highest heart rate of 132; tachypnea with highest respiratory rate of 38; systolic blood pressure blood mid 70s responded with normal saline bolus: On IV Levaquin 750 mg IV daily. Breathing treatment. Urinary antigens are negative. Respiratory panel negative. Blood cultures x2 are negative for more than 48 hours. Sputum from tracheal aspirate shows mixed normal respiratory james. Urine culture is negative. Lactic acid normal Extubated on 10/27/2018. Patient currently is on BiPAP interspersed with nasal cannula. CT chest and echo reviewed. CT chest shows very severe centrilobular emphysema with very little pulmonary parenchyma seen. It also shows irregular appearing mass in the right lower lobe which was previously obscured by presence of effusion but now resolved. Left-sided pleural effusion. 2. Probable exacerbation of COPD most probably secondary to pneumonia Likely due to pneumonia. Breathing treatment and steroid as above 3. Cardiac conditions: Indeterminate mild elevated troponin probably secondary to demand ischemia: Patient denies chest pain. Troponin 0.124, 0.122. It plateaued. Chronic diastolic heart failure/mitral valve calcification. 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 2D echo is ordered per technician. BNP 247, elevated suggestive of fluid overload but not in acute heart failure exacerbation range. 4 History of hypertension Currently normotensive 5. History of lung cancer status post radiotherapy: Patient has history of lung cancer of right lower lobe status post radiotherapy on 10/19/2015. Follow-up PET scan in June 2017 shows resolution of mass. CT chest from June 2018 revealed no evidence of recurrence. CT chest June 2018 showed significant bilateral emphysema, ill-defined consolidation in the right lung base with radiation bands of scarring and fibrosis with volume loss consistent with postradiation fibrosis. 6. dyslipidemia and limited functional capacity Stress ulcer prophylaxis Pepcid by G-tube. CODE STATUS was discussed with the patient and his by Dr. Mccartney. They are reluctant for DNR CC arrest. We will continue full code. Microbiology Past 72 Hours 10/25/18 21:42 Blood Culture (Wb) - Right Hand Blood Culture - Preliminary No growth in 48 hours. 10/25/18 21:30 Blood Culture (Wb) - Anticubital Left Blood Culture - Preliminary No growth in 48 hours. 10/26/18 01:40 Transtracheal Aspirate Gram Stain - Final 10/26/18 01:40 Transtracheal Aspirate Respiratory Culture - Final 10/26/18 00:10 Urine, Clean Catch Urine Culture - Final Culture exhibits no growth. Laboratory Results 10/25/18 21:30: Diff Path Review Reviewed 10/30/18 06:57: WBC 9.6, RBC 4.22 L, Hgb 12.7 L, Hct 39.5 L, MCV 93.6, MCH 30.1, MCHC 32.2, RDW 12.1, RDW Differential 40.9, Plt Count 182, MPV 9.0, Immature Gran % (Auto) 0.600, Neut % (Auto) 58.8, Lymph % (Auto) 22.1, Burt % (Auto) 15.4 H, Eos % (Auto) 3.0, Baso % (Auto) 0.1, Absolute Neuts (auto) 5.7, Absolute Lymphs (auto) 2.13, Total Counted Not Reportable 10/30/18 06:57: Sodium 140, Potassium 3.9, Chloride 99, Carbon Dioxide 36.0 H, Anion Gap 5, BUN 29 H, Creatinine 0.74, Estim Creat Clear Calc 53.25, Est GFR (MDRD) Af Amer 130, Est GFR (MDRD) Non-Af 107, BUN/Creatinine Ratio 39.1 H, Glucose 94, Calcium 8.8 Clinical Impression(s) from Imaging Studies Chest X-Ray 10/25/18 21:10 IMPRESSION: Increased diffuse interstitial findings particularly in the lower and midlung zones becoming somewhat confluent in areas and could be obscuring underlying nodules/nodular infiltrate. Similar interstitial changes of the right lung. Metastatic disease versus pneumonic process versus lymphangitic carcinomatosis. The confluence of opacity in the right lower lung zone is somewhat larger and less well defined. Fairly stable basilar right pleural effusion or pleural thickening. Severe emphysematous changes are apparent in the upper lung zones. Chest X-Ray 10/25/18 23:24 IMPRESSION: Bilateral interstitial densities and patchy infiltrates, similar to the previous study. Stable right pleural effusion. Questionable left midlung peripheral nodular densities. Chest X-Ray 10/28/18 07:51 IMPRESSION: Since prior study, the patient has been extubated. The orogastric tube has been removed. Progressive infiltration in the right lower lobe with small bilateral effusions worse on the right side. Chest CTA 10/29/18 08:03 IMPRESSION: No evidence for PE. Very severe centrilobular emphysema. Very little pulmonary parenchyma is seen. Possible infiltrating malignant mass in the right lower lobe which was not definitely present previously although this area was partially obscured by effusion which has resolved. New small left pleural effusion. Code Visit Inpatient E&M: 36401 Subs Hosp L3
[2018-10-30] MEDS: levoFLOXacin IV 750 MG/150 ML BAG 100 MG IV (21:54)
[2018-10-31] VITALS (23 sets, daily range): BP systolic 106–139; BP diastolic 63–97; PULSE 86–116; RESP 15–27; TEMP 36.6–37.1; O2SAT 95–100
[2018-10-31] MEDS: Ipratropium 0.5 MG/2.5 ML SOLUTION INHALATION ×6 (02:58→23:09)
[2018-10-31 05:20] LABS: Anion Gap 5 (5-15); BUN 27 mg/dL (7-18); BUN/Creat Ratio 35.8 RATIO (10-20); Calcium,Total 8.6 mg/dL (8.5-10.1); Chloride 97 mmol/L (98-107); Creatinine, Serum 0.76 mg/dL (0.70-1.30); EST Glomerular Filtration Rate 105 mL/min (>60); Est Glom Filt Rate - Afr Amer 127 mL/min (>60); Estimated Creatinine Clearance 53.25 ml/min; Glucose 100 mg/dL (74-106); Potassium 3.7 mmol/L (3.5-5.1); Sodium Level 140 mmol/L (136-145)
[2018-10-31] MEDS: CHLORHEXIDINE GLUC 2% CLOTH 1 EACH TOWELETTE TOPICAL (06:05)
[2018-10-31] MEDS: 0.9% NaCl Peripheral Flush Adult/Peds IV (06:05)
[2018-10-31] MEDS: Metoclopramide 5 MG TABLET PO ×3 (06:05→16:34)
--- NOTE | 2018-10-31 06:38 | PCM.PN.INT ---
Subjective: The patient was seen and examined at the bedside this morning. Events from the last 24 hours have been reviewed. The patient is currently afebrile, hemodynamically stable and maintaining appropriate oxygen saturations on 5 L/min. I did ask the nursing staff to aggressively wean the patient supplemental oxygen, as he is currently saturating 100% on the aforementioned oxygen flow rate. The patient is currently documented to be overall net -1.5 L for the admission. The patient at his baseline utilizes 3 L/min at rest and 4 L/min with exertion. He reports feeling less short of breath than previous, but does confirm the presence of an intimately productive cough. The patient does confirm a history of esophageal strictures, for which he has previously undergone esophageal dilation. He does report a history of solid food dysphasia. Objective: The patient's most recent lab work, culture data and imaging studies have all been personally reviewed. Respiratory viral panel was negative. Strep and urine Legionella antigens were both negative. Blood and urine cultures have been unremarkable. Sputum culture appears to be normal respiratory james. CTA chest revealed no evidence for pulmonary embolism. However, there was evidence of hyperinflated lung tran with extremely significant bilateral emphysematous changes. There did appear to be an irregular appearing density in the lateral aspect of the right lower lobe, which was obscured on prior chest imaging studies by the presence of effusion. There was also evidence of a left-sided pleural effusion. Surface echocardiogram revealed mild segmental systolic dysfunction with an ejection fraction of 45%. There was also evidence of diastolic dysfunction. Right ventricular systolic pressure was estimated to be 78 mmHg. There was also evidence of moderate to severe aortic stenosis. OUTSIDE MEDICAL RECORDS FROM [facility]: Pulmonary medicine office visit on August 29, [address] Li: Reports that patient is using Anoro daily. Also reported worsening dysphagia with concern that patient may need to be seen again by GI for potential EGD and dilation. The patient does have a history of lung cancer of the right lower lobe (T2N0M0), s/p SBRT completed 10/19/2015. Follow-up PET scan from June 2017 revealed resolution of the right lower lobe mass. CT chest from June 2018 revealed no evidence of recurrence. CT chest without contrast dated June 2018 revealed significant bilateral emphysema, stable calcified biapical scarring, most pronounced in the right apex. There was demonstration of an ill-defined region of consolidation in the right lung base with radiating bands of scar/fibrosis and associated volume loss, consistent with post radiation fibrosis. There was a stable appearing 5 mm nodule in the left lower lobe. General: Alert, Oriented x3, Cooperative, No apparent distress, - - Sitting in bedside recliner. HEENT: Atraumatic, PERRLA, Normocephalic Oral: Moist Mucosa, No Gingival or Mucosal Lesions/ Ulcerations Neck: Supple, No Nodes, Trachea Midline Lungs: No rhonchi, No wheeze, No rales, Diminished Cardiovascular: Regular rate, Regular Rhythm, Normal S1, Normal S2, - - Paced rhythm Abdomen: Bowel Sounds Present, Soft, Non Tender, Non-Distended Extremities: No cyanosis, No edema, Clubbing Skin: No breakdown Musculoskeletal: No Tenderness to Palpation of Joints or Extremities, No Muscle Wasting Lymphatic: No Cervical, Supraclavicular, or Inguinal Adenopathy Neurological: Cranial nerves II-XII grossly intact, Neuro grossly intact Psych/Mental Status: Alert and oriented to time, place, person, mood and affect Vital Signs Temp Pulse Resp BP Pulse Ox 37.0 C 95 24 H 130/74 H 98 10/31/18 06:00 10/31/18 06:00 10/31/18 06:00 10/31/18 06:00 10/31/18 06:00 Oxygen Flow Rate (L/min) 5 Oxygen Delivery Method Nasal Cannula Weight: 148 lb 5.938 oz Body Mass Index (BMI) 25.2 Intake and Output for Last 24 Hours 10/29/18 10/30/18 10/31/18 23:59 23:59 23:59 Intake Total 1140 / 1140 1614 / 1614 250 / 250 Output Total 1200 / 1200 2100 / 2100 200 / 200 Balance -60 / -60 -486 / -486 50 / 50 Labs (Last 48 Hours) 10/25/18 10/29/18 10/30/18 21:30 10:05 06:57 WBC 9.6 RBC 4.22 L Hgb 12.7 L Hct 39.5 L MCV 93.6 MCH 30.1 MCHC 32.2 RDW 12.1 RDW Differential 40.9 Plt Count 182 MPV 9.0 Immature Gran % (Auto) 0.600 Neut % (Auto) 58.8 Lymph % (Auto) 22.1 [place] % (Auto) 15.4 H Eos % (Auto) 3.0 Baso % (Auto) 0.1 Absolute Neuts (auto) 5.7 Absolute Lymphs (auto) 2.13 Total Counted Not Reportable Diff Path Review Reviewed Sodium Potassium Chloride Carbon Dioxide Anion Gap BUN Creatinine Estim Creat Clear Calc Est GFR (MDRD) Af Amer Est GFR (MDRD) Non-Af BUN/Creatinine Ratio Glucose Calcium B-Natriuretic Peptide 247.6 H 10/30/18 10/31/18 06:57 05:00 WBC RBC Hgb Hct MCV MCH MCHC RDW RDW Differential Plt Count MPV Immature Gran % (Auto) Neut % (Auto) Lymph % (Auto) [place] % (Auto) Eos % (Auto) Baso % (Auto) Absolute Neuts (auto) Absolute Lymphs (auto) Total Counted Diff Path Review Sodium 140 140 Potassium 3.9 3.7 Chloride 99 97 L Carbon Dioxide 36.0 H 38.0 H Anion Gap 5 5 BUN 29 H 27 H Creatinine 0.74 0.76 Estim Creat Clear Calc 53.25 53.25 Est GFR (MDRD) Af Amer 130 127 Est GFR (MDRD) Non-Af 107 105 BUN/Creatinine Ratio 39.1 H 35.8 H Glucose 94 100 Calcium 8.8 8.6 B-Natriuretic Peptide Clinical Impression(s) from Imaging Studies Chest X-Ray 10/25/18 21:10 IMPRESSION: Increased diffuse interstitial findings particularly in the lower and midlung zones becoming somewhat confluent in areas and could be obscuring underlying nodules/nodular infiltrate. Similar interstitial changes of the right lung. Metastatic disease versus pneumonic process versus lymphangitic carcinomatosis. The confluence of opacity in the right lower lung zone is somewhat larger and less well defined. Fairly stable basilar right pleural effusion or pleural thickening. Severe emphysematous changes are apparent in the upper lung zones. Electronically Signed: Umm Jiménez MD at 21:33 EDT , Service support , Chest X-Ray 10/25/18 23:24 IMPRESSION: Bilateral interstitial densities and patchy infiltrates, similar to the previous study. Stable right pleural effusion. Questionable left midlung peripheral nodular densities. Electronically Signed: Collin Fields DO at 23:54 EDT Tel [phone], Service support , Chest X-Ray 10/28/18 07:51 IMPRESSION: Since prior study, the patient has been extubated. The orogastric tube has been removed. Progressive infiltration in the right lower lobe with small bilateral effusions worse on the right side. Electronically Signed: Caleb Devan, at 9:12 EDT , Service support , Chest CTA 10/29/18 08:03 IMPRESSION: No evidence for PE. Very severe centrilobular emphysema. Very little pulmonary parenchyma is seen. Possible infiltrating malignant mass in the right lower lobe which was not definitely present previously although this area was partially obscured by effusion which has resolved. New small left pleural effusion. Electronically Signed: Khoa Miranda MD at 15:56 EDT , Service support , Medical Necessity - Tobacco Use Smoking Status: Former smoker Assessment/Plan All Active Problems (Last Reviewed 10/26/18 @ 01:48 by Jacobo Unger MD) Acute respiratory failure with hypoxia and hypercapnia (Acute) Bilateral pneumonia (Acute) Severe sepsis (Acute) Hypotension (Acute) Paroxysmal atrial flutter (Acute) Presence of cardiac pacemaker (Acute) Acute on chronic diastolic (congestive) heart failure (Acute) Aortic valve stenosis, nonrheumatic (Acute) History of permanent cardiac pacemaker placement (Resolved) Dyspnea (Acute) Chest pain (Acute) Pulmonary congestion (Acute) Conduction disorder of the heart (Acute) Acute exacerbation of chronic obstructive pulmonary disease (Acute) Acute exacerbation of chronic obstructive pulmonary disease (COPD) (Acute) Drug rash (Acute) Hyperglycemia (Acute) CAP (community acquired pneumonia) (Acute) Hyponatremia (Acute) Dehydration (Acute) Lung nodule, solitary (Acute) RECOMMENDATIONS: 1. Continue Levaquin to complete 7-day treatment course. 2. Continue prednisone 40 mg daily. Wean by 10 mg every 3 days. 3. Continue Lasix 40 mg daily per home regimen. 4. Continue bronchodilators. Resume Anoro and as needed albuterol at discharge. 5. Continue to wean supplemental oxygen to maintain saturations at or above 88-92%. 6. Encourage incentive spirometer use and mobilize patient as tolerated. 7. Perform walking oximetry study prior to consideration for discharge from the hospital. 8. The patient is medically stable for transfer out of the intensive care unit. 9. Follow-up with gastroenterology on an outpatient basis for potential EGD and esophageal dilation. IMPRESSIONS: 1. Acute on chronic combined respiratory failure due to COPD exacerbation secondary to community-acquired pneumonia While the patient did require intubation along with invasive mechanical ventilatory support, he was able to be extubated on October 27. He remains on antibiotics, bronchodilators and steroids. CTA chest revealed no evidence for PE. 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 There was also evidence of a small left pleural effusion. The patient has responded to diuretic therapy. His baseline Lasix regimen of 40 mg daily will be resumed. He will be continued on bronchodilators and prednisone, with plans to wean by 10 mg every 3 days. Recommend performing a walking oximetry study prior to consideration for discharge from the hospital. 2. Abnormal chest imaging studies/history of non-small cell lung cancer The patient's CTA chest revealed significant bilateral emphysematous changes with a stable appearing irregular density in the right lung apex. There was also evidence of an irregular spiculated density in the right lower lobe. 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 However, I do not have the physical copies of the imaging study to personally review. I did strongly recommend to the patient that he obtain a physical copy of the CT chest at the time of his discharge, with plans to follow-up with his primary ob nurse at [facility], within weeks of discharge, if possible. 3. 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 The patient's systolic dysfunction is new and his LV wall dysfunction may be consistent with an underlying Takotsubo Syndrome. We will plan to continue the patient's baseline Lasix regimen. Recommend repeat echocardiogram in 3-6 months. 4. Pulmonary hypertension/hypertension/hyperlipidemia/advanced age Complicates care, management, recovery and prognosis. Continue home medications as indicated. Physical therapy to work with patient as tolerated. 5. CODE STATUS I spoke with both the patient and his at the bedside at length this morning regarding his underlying lung disease and options for CODE STATUS. At the current time, the patient seems reluctant to make a change from full code to DNR CCA. In August 2017, he was referred to palliative care by our office. However, the patient later declined the referral. This note was generated with [employer] dictation software. It may contain incorrect words, spelling, and punctuation that were not noted in checking the note before signing. Code Visit Inpatient E&M: 66181 Subs Hosp L2
--- NOTE | 2018-10-31 06:42 | PN_ITS ---
Subjective: The patient was seen and examined at the bedside this morning. Events from the last 24 hours have been reviewed. The patient is currently afebrile, hemodynamically stable and maintaining appropriate oxygen saturations on 5 L/min. I did ask the nursing staff to aggressively wean the patient supplemental oxygen, as he is currently saturating 100% on the aforementioned oxygen flow rate. The patient is currently documented to be overall net -1.5 L for the admission. The patient at his baseline utilizes 3 L/min at rest and 4 L/min with exertion. He reports feeling less short of breath than previous, but does confirm the presence of an intimately productive cough. The patient does confirm a history of esophageal strictures, for which he has previously undergone esophageal dilation. He does report a history of solid food dysphasia. Objective: The patient's most recent lab work, culture data and imaging studies have all been personally reviewed. Respiratory viral panel was negative. Strep and urine Legionella antigens were both negative. Blood and urine cultures have been unremarkable. Sputum culture appears to be normal respiratory james. CTA chest revealed no evidence for pulmonary embolism. However, there was evidence of hyperinflated lung tran with extremely significant bilateral emphysematous changes. There did appear to be an irregular appearing density in the lateral aspect of the right lower lobe, which was obscured on prior chest imaging studies by the presence of effusion. There was also evidence of a left-sided pleural effusion. Surface echocardiogram revealed mild segmental systolic dysfunction with an ejection fraction of 45%. There was also evidence of diastolic dysfunction. Right ventricular systolic pressure was estimated to be 78 mmHg. There was also evidence of moderate to severe aortic stenosis. OUTSIDE MEDICAL RECORDS FROM [facility]: Pulmonary medicine office visit on August 29, [address] Li: Reports that patient is using Anoro daily. Also reported worsening dysphagia with concern that patient may need to be seen again by GI for potential EGD and dilation. The patient does have a history of lung cancer of the right lower lobe (T2N0M0), s/p SBRT completed 10/19/2015. Follow-up PET scan from June 2017 revealed resolution of the right lower lobe mass. CT chest from June 2018 revealed no evidence of recurrence. CT chest without contrast dated June 2018 revealed significant bilateral emphysema, stable calcified biapical scarring, most pronounced in the right apex. There was demonstration of an ill-defined region of consolidation in the right lung base with radiating bands of scar/fibrosis and associated volume loss, consistent with post radiation fibrosis. There was a stable appearing 5 mm nodule in the left lower lobe. General: Alert, Oriented x3, Cooperative, No apparent distress, - - Sitting in bedside recliner. HEENT: Atraumatic, PERRLA, Normocephalic Oral: Moist Mucosa, No Gingival or Mucosal Lesions/ Ulcerations Neck: Supple, No Nodes, Trachea Midline Lungs: No rhonchi, No wheeze, No rales, Diminished Cardiovascular: Regular rate, Regular Rhythm, Normal S1, Normal S2, - - Paced rhythm Abdomen: Bowel Sounds Present, Soft, Non Tender, Non-Distended Extremities: No cyanosis, No edema, Clubbing Skin: No breakdown Musculoskeletal: No Tenderness to Palpation of Joints or Extremities, No Muscle Wasting Lymphatic: No Cervical, Supraclavicular, or Inguinal Adenopathy Neurological: Cranial nerves II-XII grossly intact, Neuro grossly intact Psych/Mental Status: Alert and oriented to time, place, person, mood and affect Vital Signs Temp Pulse Resp BP Pulse Ox 37.0 C 95 24 H 130/74 H 98 10/31/18 06:00 10/31/18 06:00 10/31/18 06:00 10/31/18 06:00 10/31/18 06:00 Oxygen Flow Rate (L/min) 5 Oxygen Delivery Method Nasal Cannula Weight: 148 lb 5.938 oz Body Mass Index (BMI) 25.2 Intake and Output for Last 24 Hours 10/29/18 10/30/18 10/31/18 23:59 23:59 23:59 Intake Total 1140 / 1140 1614 / 1614 250 / 250 Output Total 1200 / 1200 2100 / 2100 200 / 200 Balance -60 / -60 -486 / -486 50 / 50 Labs (Last 48 Hours) 10/25/18 10/29/18 10/30/18 21:30 10:05 06:57 WBC 9.6 RBC 4.22 L Hgb 12.7 L Hct 39.5 L MCV 93.6 MCH 30.1 MCHC 32.2 RDW 12.1 RDW Differential 40.9 Plt Count 182 MPV 9.0 Immature Gran % (Auto) 0.600 Neut % (Auto) 58.8 Lymph % (Auto) 22.1 [place] % (Auto) 15.4 H Eos % (Auto) 3.0 Baso % (Auto) 0.1 Absolute Neuts (auto) 5.7 Absolute Lymphs (auto) 2.13 Total Counted Not Reportable Diff Path Review Reviewed Sodium Potassium Chloride Carbon Dioxide Anion Gap BUN Creatinine Estim Creat Clear Calc Est GFR (MDRD) Af Amer Est GFR (MDRD) Non-Af BUN/Creatinine Ratio Glucose Calcium B-Natriuretic Peptide 247.6 H 10/30/18 10/31/18 06:57 05:00 WBC RBC Hgb Hct MCV MCH MCHC RDW RDW Differential Plt Count MPV Immature Gran % (Auto) Neut % (Auto) Lymph % (Auto) [place] % (Auto) Eos % (Auto) Baso % (Auto) Absolute Neuts (auto) Absolute Lymphs (auto) Total Counted Diff Path Review Sodium 140 140 Potassium 3.9 3.7 Chloride 99 97 L Carbon Dioxide 36.0 H 38.0 H Anion Gap 5 5 BUN 29 H 27 H Creatinine 0.74 0.76 Estim Creat Clear Calc 53.25 53.25 Est GFR (MDRD) Af Amer 130 127 Est GFR (MDRD) Non-Af 107 105 BUN/Creatinine Ratio 39.1 H 35.8 H Glucose 94 100 Calcium 8.8 8.6 B-Natriuretic Peptide Clinical Impression(s) from Imaging Studies Chest X-Ray 10/25/18 21:10 IMPRESSION: Increased diffuse interstitial findings particularly in the lower and midlung zones becoming somewhat confluent in areas and could be obscuring underlying nodules/nodular infiltrate. Similar interstitial changes of the right lung. Metastatic disease versus pneumonic process versus lymphangitic carcinomatosis. The confluence of opacity in the right lower lung zone is somewhat larger and less well defined. Fairly stable basilar right pleural effusion or pleural thickening. Severe emphysematous changes are apparent in the upper lung zones. Electronically Signed: Umm Jiménez MD at 21:33 EDT , Service support , Chest X-Ray 10/25/18 23:24 IMPRESSION: Bilateral interstitial densities and patchy infiltrates, similar to the previous study. Stable right pleural effusion. Questionable left midlung peripheral nodular densities. Electronically Signed: Collin Fields DO at 23:54 EDT Tel [phone], Service support , Chest X-Ray 10/28/18 07:51 IMPRESSION: Since prior study, the patient has been extubated. The orogastric tube has been removed. Progressive infiltration in the right lower lobe with small bilateral effusions worse on the right side. Electronically Signed: Caleb Devan, at 9:12 EDT , Service support , Chest CTA 10/29/18 08:03 IMPRESSION: No evidence for PE. Very severe centrilobular emphysema. Very little pulmonary parenchyma is seen. Possible infiltrating malignant mass in the right lower lobe which was not definitely present previously although this area was partially obscured by effusion which has resolved. New small left pleural effusion. Electronically Signed: Khoa Miranda MD at 15:56 EDT , Service support , Medical Necessity - Tobacco Use Smoking Status: Former smoker Assessment/Plan All Active Problems (Last Reviewed 10/26/18 @ 01:48 by Jacobo Unger MD) Acute respiratory failure with hypoxia and hypercapnia (Acute) Bilateral pneumonia (Acute) Severe sepsis (Acute) Hypotension (Acute) Paroxysmal atrial flutter (Acute) Presence of cardiac pacemaker (Acute) Acute on chronic diastolic (congestive) heart failure (Acute) Aortic valve stenosis, nonrheumatic (Acute) History of permanent cardiac pacemaker placement (Resolved) Dyspnea (Acute) Chest pain (Acute) Pulmonary congestion (Acute) Conduction disorder of the heart (Acute) Acute exacerbation of chronic obstructive pulmonary disease (Acute) Acute exacerbation of chronic obstructive pulmonary disease (COPD) (Acute) Drug rash (Acute) Hyperglycemia (Acute) CAP (community acquired pneumonia) (Acute) Hyponatremia (Acute) Dehydration (Acute) Lung nodule, solitary (Acute) RECOMMENDATIONS: 1. Continue Levaquin to complete 7-day treatment course. 2. Continue prednisone 40 mg daily. Wean by 10 mg every 3 days. 3. Continue Lasix 40 mg daily per home regimen. 4. Continue bronchodilators. Resume Anoro and as needed albuterol at dis charge. 5. Continue to wean supplemental oxygen to maintain saturations at or above 88- 92%. 6. Encourage incentive spirometer use and mobilize patient as tolerated. 7. Perform walking oximetry study prior to consideration for discharge from the hospital. 8. The patient is medically stable for transfer out of the intensive care unit. 9. Follow-up with gastroenterology on an outpatient basis for potential EGD and esophageal dilation. IMPRESSIONS: 1. Acute on chronic combined respiratory failure due to COPD exacerbation secondary to community-acquired pneumonia While the patient did require intubation along with invasive mechanical ventilatory support, he was able to be extubated on October 27. He remains on antibiotics, bronchodilators and steroids. CTA chest revealed no evidence for PE. 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 There was also evidence of a small left pleural effusion. The patient has responded to diuretic therapy. His baseline Lasix regimen of 40 mg daily will be resumed. He will be continued on bronchodilators and prednisone, with plans to wean by 10 mg every 3 days. Recommend performing a walking oximetry study prior to consideration for discharge from the hospital. 2. Abnormal chest imaging studies/history of non-small cell lung cancer The patient's CTA chest revealed significant bilateral emphysematous changes with a stable appearing irregular density in the right lung apex. There was also evidence of an irregular spiculated density in the right lower lobe. From a review of the reports of the patient's prior chest CT in 2018 from [facility], it appears that this lesion was likely present at that time and felt to be the consequence of post radiation fibrosis. However, I do not have the physical copies of the imaging study to personally review. I did strongly recommend to the patient that he obtain a physical copy of the CT chest at the time of his discharge, with plans to follow-up with his primary mailing machine assistant at [facility], within weeks of discharge, if possible. 3. 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 The patient's systolic dysfunction is new and his LV wall dysfunction may be consistent with an underlying Takotsubo Syndrome. We will plan to continue the patient's baseline Lasix regimen. Recommend repeat echocardiogram in 3-6 months. 4. Pulmonary hypertension/hypertension/hyperlipidemia/advanced age Complicates care, management, recovery and prognosis. Continue home medications as indicated. Physical therapy to work with patient as tolerated. 5. CODE STATUS I spoke with both the patient and his at the bedside at length this morning regarding his underlying lung disease and options for CODE STATUS. At the curr ent time, the patient seems reluctant to make a change from full code to DNR CCA. In August 2017, he was referred to palliative care by our office. However, the patient later declined the referral. This note was generated with [employer] dictation software. It may contain incorrect words, spelling, and punctuation that were not noted in checking the note before signing. Code Visit Inpatient E&M: 56690 Subs Hosp L2
--- NOTE | 2018-10-31 08:00 | PCM.PN.HOSP ---
Patient Problems: Active and Suspected Problems (Last Reviewed 10/26/18 @ 01:48 by Jacobo Unger MD) Acute respiratory failure with hypoxia and hypercapnia (Acute) Bilateral pneumonia (Acute) Severe sepsis (Acute) Hypotension (Acute) Paroxysmal atrial flutter (Acute) Acute on chronic diastolic (congestive) heart failure (Acute) Acute exacerbation of chronic obstructive pulmonary disease (Acute) Subjective: Patient respiratory status is much improved now. Patient is able to talk in full sentences. T-max 100 Fahrenheit yesterday noon. Patient sitting in the chair breakfast and feels more comfortable breathing. Vitals/I&O's: Vital Signs Temp Pulse Resp BP Pulse Ox 98.6 F 101 H 15 130/74 H 97 10/31/18 06:00 10/31/18 07:49 10/31/18 07:13 10/31/18 06:00 10/31/18 07:13 Oxygen Flow Rate (L/min) 3 Oxygen Delivery Method Nasal Cannula Weight: 148 lb 5.938 oz Body Mass Index (BMI) 25.2 Intake and Output for Last 24 Hours 10/29/18 10/30/18 10/31/18 23:59 23:59 23:59 Intake Total 1140 / 1140 1614 / 1614 250 / 250 Output Total 1200 / 1200 2100 / 2100 200 / 200 Balance -60 / -60 -486 / -486 50 / 50 General: Alert, Oriented x3, Cooperative HEENT: Atraumatic, PERRLA, EOMI, Normocephalic Neck: Supple, No JVD, Negative Carotid Bruits Lungs: Diminished - Air entry severely diminished diffuse., Rhonchi Cardiovascular: Regular rate, Regular Rhythm, Normal S1, Normal S2, No murmurs Abdomen: Bowel Sounds Present, Soft, Non Tender, Non-Distended Extremities: No edema, Capillary Refill Less than 3 Seconds Skin: No rashes, No breakdown Musculoskeletal: No Tenderness to Palpation of Joints or Extremities, Arthritic Changes, Muscle Wasting Lymphatic: No Cervical, Supraclavicular, or Inguinal Adenopathy Neurological: Cranial nerves II-XII grossly intact, Neuro grossly intact Psych/Mental Status: Normal Affect, Appropriate Microbiology Past 72 Hours 10/25/18 21:42 Blood Culture (Wb) - Right Hand Blood Culture - Preliminary No growth in 48 hours. 10/25/18 21:30 Blood Culture (Wb) - Anticubital Left Blood Culture - Preliminary No growth in 48 hours. 10/26/18 01:40 Transtracheal Aspirate Gram Stain - Final 10/26/18 01:40 Transtracheal Aspirate Respiratory Culture - Final 10/26/18 00:10 Urine, Clean Catch Urine Culture - Final Culture exhibits no growth. Laboratory Results 10/31/18 05:00: Sodium 140, Potassium 3.7, Chloride 97 L, Carbon Dioxide 38.0 H, Anion Gap 5, BUN 27 H, Creatinine 0.76, Estim Creat Clear Calc 53.25, Est GFR (MDRD) Af Amer 127, Est GFR (MDRD) Non-Af 105, BUN/Creatinine Ratio 35.8 H, Glucose 100, Calcium 8.6 Current Medications Acetaminophen (Tylenol) 650 mg PO Q6H PRN PRN PRN Reason: Mild Pain (scale 0-3)/T>100.7 Last Admin: 10/27/18 16:17 Dose: 650 mg Albuterol Sulfate (Ventolin Aerosols) 2.5 mg INHALATION Q2H PRN PRN PRN Reason: sob/wheezing Amlodipine Besylate (Norvasc) 5 mg PO DAILY [facility] Chlorhexidine Gluconate () 1 each TOPICAL DAILY [facility] Last Admin: 10/31/18 06:05 Dose: 1 each Enoxaparin Sodium (Lovenox) 40 mg SC DAILY@1000 [facility] Last Admin: 10/30/18 09:23 Dose: 40 mg Famotidine (Pepcid) 20 mg PO BID [facility] Last Admin: 10/30/18 21:54 Dose: 20 mg Sodium Chloride () 250 mls @ 15 mls/hr IV .[id number] PRN PRN Reason: SALINE FLUSH Levofloxacin (Levaquin Iv) 750 mg in 150 mls @ 100 mls/hr IV Q24@2200 [facility] Last Admin: 10/30/18 21:54 Dose: 100 mls/hr Ipratropium [place] (Atrovent) 0.5 mg INHALATION Q4H.RT [facility] Last Admin: 10/31/18 07:12 Dose: 0.5 mg Losartan Potassium (Cozaar) 25 mg PO DAILY [facility] Last Admin: 10/30/18 09:22 Dose: 25 mg Magnesium Hydroxide (Milk Of Magnesia) 30 ml PO DAILY PRN PRN PRN Reason: Constipation Melatonin (Melatonin) 10 mg PO QHS PRN PRN Reason: INSOMNIA Last Admin: 10/29/18 21:38 Dose: 10 mg Metoclopramide HCl (Metoclopramide Hcl) 5 mg PO TIDAC [facility] Last Admin: 10/31/18 06:05 Dose: 5 mg Nutritional Formula (Lactose Free) (Ensure Enlive) 120 ml PO 4X/DAY [facility] Last Admin: 10/30/18 22:05 Dose: Not Given Ondansetron HCl (Zofran) 4 mg IV Q8H PRN PRN PRN Reason: NAUSEA Phenol/Menthol (Chloraseptic (Bkc)) 3 spray MM Q2H PRN PRN PRN Reason: SORE THROAT Last Admin: 10/28/18 04:07 Dose: 3 spray Polyethylene Glycol (Miralax) 17 gm PO DAILY PRN PRN PRN Reason: Constipation Prednisone () 40 mg PO DAILY@0800 [facility] Last Admin: 10/30/18 09:22 Dose: 40 mg Senna (Senokot) 2 tablet PO BID [facility] Last Admin: 10/30/18 22:05 Dose: Not Given Sodium Chloride () 5 - 15 ml IV UD PRN PRN Reason: SALINE FLUSH Last Admin: 10/31/18 06:05 Dose: 10 ml Medical Necessity - Tobacco Use Smoking Status: Former smoker Assessment/Plan All Active Problems (Last Reviewed 10/26/18 @ 01:48 by Jacobo Unger MD) Acute respiratory failure with hypoxia and hypercapnia (Acute) Bilateral pneumonia (Acute) Severe sepsis (Acute) Hypotension (Acute) Paroxysmal atrial flutter (Acute) Presence of cardiac pacemaker (Acute) Acute on chronic diastolic (congestive) heart failure (Acute) Aortic valve stenosis, nonrheumatic (Acute) History of permanent cardiac pacemaker placement (Resolved) Dyspnea (Acute) Chest pain (Acute) Pulmonary congestion (Acute) Conduction disorder of the heart (Acute) Acute exacerbation of chronic obstructive pulmonary disease (Acute) Acute exacerbation of chronic obstructive pulmonary disease (COPD) (Acute) Drug rash (Acute) Hyperglycemia (Acute) CAP (community acquired pneumonia) (Acute) Hyponatremia (Acute) Dehydration (Acute) Lung nodule, solitary (Acute) The patient is a 83 year old M with a significant medical history of 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, aortic valve stenosis, hypertension, pulmonary hypertension, COPD, lung carcinoma s/p radiation; diastolic dysfunction; 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 1. Severe sepsis secondary to probable community-acquired pneumonia with acute on chronic hypoxic and hypercarbic combined respiratory failure, present since admission: Sepsis (fever of 100.4 Fahrenheit; tachycardia with persistent and highest heart rate of 132; tachypnea with highest respiratory rate of 38; systolic blood pressure blood mid 70s responded with normal saline bolus: On IV Levaquin 750 mg IV daily. Breathing treatment. Urinary antigens are negative. Respiratory panel negative. Blood cultures x2 are negative for more than 48 hours. Sputum from tracheal aspirate shows mixed normal respiratory james. Urine culture is negative. Lactic acid normal Extubated on 10/27/2018. Patient currently is on BiPAP interspersed with nasal cannula. CT chest and echo reviewed. CT chest shows very severe centrilobular emphysema with very little pulmonary parenchyma seen. It also shows irregular appearing mass in the right lower lobe which was previously obscured by presence of effusion but now resolved. There is also scarring tissue over the right apex. Left-sided pleural effusion. 2. Probable exacerbation of COPD most probably secondary to pneumonia Likely due to pneumonia. Breathing treatment and steroid as above 3. Cardiac conditions: Indeterminate mild elevated troponin probably secondary to demand ischemia: Patient denies chest pain. Troponin 0.124, 0.122. It plateaued. Chronic diastolic heart failure/mitral valve calcification. 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 2D echo reported EF 45% with combined systolic and diastolic dysfunction. Left ventricular wall motion is consistent with Takotsubo syndrome. 1-2+ TR, RVSP 78 mmHg suggestive of severe pulmonary hypertension. Moderate to severe aortic valve stenosis BNP 247 4 History of hypertension Currently normotensive 5. History of lung cancer status post radiotherapy: Patient has history of lung cancer of right lower lobe status post radiotherapy on 10/19/2015. Follow-up PET scan in June 2017 shows resolution of mass. CT chest from June 2018 revealed no evidence of recurrence. CT chest June 2018 showed significant bilateral emphysema, ill-defined consolidation in the right lung base with radiation bands of scarring and fibrosis with volume loss consistent with postradiation fibrosis. 6. Esophageal dysphagia patient also has history of esophageal stricture which required dilatation in the past; most probably radiation effect. He states worsening of dysphagia but able to swallow. Patient needs to see GI as an outpatient for EGD. speech/swallow evaluation 6. dyslipidemia and limited functional capacity Stress ulcer prophylaxis Pepcid by G-tube. CODE STATUS was discussed with the patient and his by Dr. Mccartney. They are reluctant for DNR CC arrest. We will continue full code. Microbiology Past 72 Hours 10/25/18 21:42 Blood Culture (Wb) - Right Hand Blood Culture - Final No growth in 5 days. 10/25/18 21:30 Blood Culture (Wb) - Anticubital Left Blood Culture - Final No growth in 5 days. 10/26/18 01:40 Transtracheal Aspirate Gram Stain - Final 10/26/18 01:40 Transtracheal Aspirate Respiratory Culture - Final 10/26/18 00:10 Urine, Clean Catch Urine Culture - Final Culture exhibits no growth. Laboratory Results 10/31/18 05:00: Sodium 140, Potassium 3.7, Chloride 97 L, Carbon Dioxide 38.0 H, Anion Gap 5, BUN 27 H, Creatinine 0.76, Estim Creat Clear Calc 53.25, Est GFR (MDRD) Af Amer 127, Est GFR (MDRD) Non-Af 105, BUN/Creatinine Ratio 35.8 H, Glucose 100, Calcium 8.6 10/30/18 06:57: WBC 9.6, RBC 4.22 L, Hgb 12.7 L, Hct 39.5 L, MCV 93.6, MCH 30.1, MCHC 32.2, RDW 12.1, RDW Differential 40.9, Plt Count 182, MPV 9.0, Immature Gran % (Auto) 0.600, Neut % (Auto) 58.8, Lymph % (Auto) 22.1, [place] % (Auto) 15.4 H, Eos % (Auto) 3.0, Baso % (Auto) 0.1, Absolute Neuts GFR Clinical Impression(s) from Imaging Studies Chest X-Ray 10/25/18 21:10 IMPRESSION: Increased diffuse interstitial findings particularly in the lower and midlung zones becoming somewhat confluent in areas and could be obscuring underlying nodules/nodular infiltrate. Similar interstitial changes of the right lung. Metastatic disease versus pneumonic process versus lymphangitic carcinomatosis. The confluence of opacity in the right lower lung zone is somewhat larger and less well defined. Fairly stable basilar right pleural effusion or pleural thickening. Severe emphysematous changes are apparent in the upper lung zones. Chest X-Ray 10/25/18 23:24 IMPRESSION: Bilateral interstitial densities and patchy infiltrates, similar to the previous study. Stable right pleural effusion. Questionable left midlung peripheral nodular densities. Chest X-Ray 10/28/18 07:51 IMPRESSION: Since prior study, the patient has been extubated. The orogastric tube has been removed. Progressive infiltration in the right lower lobe with small bilateral effusions worse on the right side. Chest CTA 10/29/18 08:03 IMPRESSION: No evidence for PE. Very severe centrilobular emphysema. Very little pulmonary parenchyma is seen. Possible infiltrating malignant mass in the right lower lobe which was not definitely present previously although this area was partially obscured by effusion which has resolved. New small left pleural effusion. Code Visit Inpatient E&M: 38225 Subs Hosp L3
--- NOTE | 2018-10-31 08:18 | PN_ITS ---
Patient Problems: Active and Suspected Problems (Last Reviewed 10/26/18 @ 01:48 by Jacobo Unger MD) Acute respiratory failure with hypoxia and hypercapnia (Acute) Bilateral pneumonia (Acute) Severe sepsis (Acute) Hypotension (Acute) Paroxysmal atrial flutter (Acute) Acute on chronic diastolic (congestive) heart failure (Acute) Acute exacerbation of chronic obstructive pulmonary disease (Acute) Subjective: Patient respiratory status is much improved now. Patient is able to talk in full sentences. T-max 100 Fahrenheit yesterday noon. Patient sitting in the chair breakfast and feels more comfortable breathing. Vitals/I&O's: Vital Signs Temp Pulse Resp BP Pulse Ox 98.6 F 101 H 15 130/74 H 97 10/31/18 06:00 10/31/18 07:49 10/31/18 07:13 10/31/18 06:00 10/31/18 07:13 Oxygen Flow Rate (L/min) 3 Oxygen Delivery Method Nasal Cannula Weight: 148 lb 5.938 oz Body Mass Index (BMI) 25.2 Intake and Output for Last 24 Hours 10/29/18 10/30/18 10/31/18 23:59 23:59 23:59 Intake Total 1140 / 1140 1614 / 1614 250 / 250 Output Total 1200 / 1200 2100 / 2100 200 / 200 Balance -60 / -60 -486 / -486 50 / 50 General: Alert, Oriented x3, Cooperative HEENT: Atraumatic, PERRLA, EOMI, Normocephalic Neck: Supple, No JVD, Negative Carotid Bruits Lungs: Diminished - Air entry severely diminished diffuse., Rhonchi Cardiovascular: Regular rate, Regular Rhythm, Normal S1, Normal S2, No murmurs Abdomen: Bowel Sounds Present, Soft, Non Tender, Non-Distended Extremities: No edema, Capillary Refill Less than 3 Seconds Skin: No rashes, No breakdown Musculoskeletal: No Tenderness to Palpation of Joints or Extremities, Arthritic Changes, Muscle Wasting Lymphatic: No Cervical, Supraclavicular, or Inguinal Adenopathy Neurological: Cranial nerves II-XII grossly intact, Neuro grossly intact Psych/Mental Status: Normal Affect, Appropriate Microbiology Past 72 Hours 10/25/18 21:42 Blood Culture (Wb) - Right Hand Blood Culture - Preliminary No growth in 48 hours. 10/25/18 21:30 Blood Culture (Wb) - Anticubital Left Blood Culture - Preliminary No growth in 48 hours. 10/26/18 01:40 Transtracheal Aspirate Gram Stain - Final 10/26/18 01:40 Transtracheal Aspirate Respiratory Culture - Final 10/26/18 00:10 Urine, Clean Catch Urine Culture - Final Culture exhibits no growth. Laboratory Results 10/31/18 05:00: Sodium 140, Potassium 3.7, Chloride 97 L, Carbon Dioxide 38.0 H, Anion Gap 5, BUN 27 H, Creatinine 0.76, Estim Creat Clear Calc 53.25, Est GFR (MDRD) Af Amer 127, Est GFR (MDRD) Non-Af 105, BUN/Creatinine Ratio 35.8 H, Glucose 100, Calcium 8.6 Current Medications Acetaminophen (Tylenol) 650 mg PO Q6H PRN PRN PRN Reason: Mild Pain (scale 0-3)/T>100.7 Last Admin: 10/27/18 16:17 Dose: 650 mg Albuterol Sulfate (Ventolin Aerosols) 2.5 mg INHALATION Q2H PRN PRN PRN Reason: sob/wheezing Amlodipine Besylate (Norvasc) 5 mg PO DAILY [facility] Chlorhexidine Gluconate () 1 each TOPICAL DAILY [facility] Last Admin: 10/31/18 06:05 Dose: 1 each Enoxaparin Sodium (Lovenox) 40 mg SC DAILY@1000 [facility] Last Admin: 10/30/18 09:23 Dose: 40 mg Famotidine (Pepcid) 20 mg PO BID [facility] Last Admin: 10/30/18 21:54 Dose: 20 mg Sodium Chloride () 250 mls @ 15 mls/hr IV .[id number] PRN PRN Reason: SALINE FLUSH Levofloxacin (Levaquin Iv) 750 mg in 150 mls @ 100 mls/hr IV Q24@2200 [facility] Last Admin: 10/30/18 21:54 Dose: 100 mls/hr Ipratropium [place] (Atrovent) 0.5 mg INHALATION Q4H.RT [facility] Last Admin: 10/31/18 07:12 Dose: 0.5 mg Losartan Potassium (Cozaar) 25 mg PO DAILY [facility] Last Admin: 10/30/18 09:22 Dose: 25 mg Magnesium Hydroxide (Milk Of Magnesia) 30 ml PO DAILY PRN PRN PRN Reason: Constipation Melatonin (Melatonin) 10 mg PO QHS PRN PRN Reason: INSOMNIA Last Admin: 10/29/18 21:38 Dose: 10 mg Metoclopramide HCl (Metoclopramide Hcl) 5 mg PO TIDAC [facility] Last Admin: 10/31/18 06:05 Dose: 5 mg Nutritional Formula (Lactose Free) (Ensure Enlive) 120 ml PO 4X/DAY [facility] Last Admin: 10/30/18 22:05 Dose: Not Given Ondansetron HCl (Zofran) 4 mg IV Q8H PRN PRN PRN Reason: NAUSEA Phenol/Menthol (Chloraseptic (Bkc)) 3 spray MM Q2H PRN PRN PRN Reason: SORE THROAT Last Admin: 10/28/18 04:07 Dose: 3 spray Polyethylene Glycol (Miralax) 17 gm PO DAILY PRN PRN PRN Reason: Constipation Prednisone () 40 mg PO DAILY@0800 [facility] Last Admin: 10/30/18 09:22 Dose: 40 mg Senna (Senokot) 2 tablet PO BID [facility] Last Admin: 10/30/18 22:05 Dose: Not Given Sodium Chloride () 5 - 15 ml IV UD PRN PRN Reason: SALINE FLUSH Last Admin: 10/31/18 06:05 Dose: 10 ml Medical Necessity - Tobacco Use Smoking Status: Former smoker Assessment/Plan All Active Problems (Last Reviewed 10/26/18 @ 01:48 by Jacobo Unger MD) Acute respiratory failure with hypoxia and hypercapnia (Acute) Bilateral pneumonia (Acute) Severe sepsis (Acute) Hypotension (Acute) Paroxysmal atrial flutter (Acute) Presence of cardiac pacemaker (Acute) Acute on chronic diastolic (congestive) heart failure (Acute) Aortic valve stenosis, nonrheumatic (Acute) History of permanent cardiac pacemaker placement (Resolved) Dyspnea (Acute) Chest pain (Acute) Pulmonary congestion (Acute) Conduction disorder of the heart (Acute) Acute exacerbation of chronic obstructive pulmonary disease (Acute) Acute exacerbation of chronic obstructive pulmonary disease (COPD) (Acute) Drug rash (Acute) Hyperglycemia (Acute) CAP (community acquired pneumonia) (Acute) Hyponatremia (Acute) Dehydration (Acute) Lung nodule, solitary (Acute) The patient is a 83 year old M with a significant medical history of 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, aortic valve stenosis, hypertension, pulmonary hypertension, COPD, lung carcinoma s/p radiation; diastolic dysfunction; 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 1. Severe sepsis secondary to probable community-acquired pneumonia with acute on chronic hypoxic and hypercarbic combined respiratory failure, present since admission: Sepsis (fever of 100.4 Fahrenheit; tachycardia with persistent and highest heart rate of 132; tachypnea with highest respiratory rate of 38; systolic blood pressure blood mid 70s responded with normal saline bolus: On IV Levaquin 750 mg IV daily. Breathing treatment. Urinary antigens are negative. Respiratory panel negative. Blood cultures x2 are negative for more than 48 hours. Sputum from tracheal aspirate shows mixed normal respiratory james. Urine culture is negative. Lactic acid normal Extubated on 10/27/2018. Patient currently is on BiPAP interspersed with nasal cannula. CT chest and echo reviewed. CT chest shows very severe centrilobular emphysema with very little pulmonary parenchyma seen. It also shows irregular appearing mass in the right lower lobe which was previously obscured by presence of effusion but now resolved. There is also scarring tissue over the right apex. Left-sided pleural effusion. 2. Probable exacerbation of COPD most probably secondary to pneumonia Likely due to pneumonia. Breathing treatment and steroid as above 3. Cardiac conditions: Indeterminate mild elevated troponin probably secondary to demand ischemia: Patient denies chest pain. Troponin 0.124, 0.122. It plateaued. Chronic diastolic heart failure/mitral valve calcification. 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 2D echo reported EF 45% with combined systolic and diastolic dysfunction. Left ventricular wall motion is consistent with Takotsubo syndrome. 1-2+ TR, RVSP 78 mmHg suggestive of severe pulmonary hypertension. Moderate to severe aortic valve stenosis BNP 247 4 History of hypertension Currently normotensive 5. History of lung cancer status post radiotherapy: Patient has history of lung cancer of right lower lobe status post radiotherapy on 10/19/2015. Follow-up PET scan in June 2017 shows resolution of mass. CT chest from June 2018 revealed no evidence of recurrence. CT chest June 2018 showed significant bilateral emphysema, ill-defined consolidation in the right lung base with radiation bands of scarring and fibrosis with volume loss consistent with postradiation fibrosis. 6. Esophageal dysphagia patient also has history of esophageal stricture which required dilatation in the past; most probably radiation effect. He states worsening of dysphagia but able to swallow. Patient needs to see GI as an outpatient for EGD. speech/swallow evaluation 6. dyslipidemia and limited functional capacity Stress ulcer prophylaxis Pepcid by G-tube. CODE STATUS was discussed with the patient and his by Dr. Mccartney. They are reluctant for DNR CC arrest. We will continue full code. Microbiology Past 72 Hours 10/25/18 21:42 Blood Culture (Wb) - Right Hand Blood Culture - Final No growth in 5 days. 10/25/18 21:30 Blood Culture (Wb) - Anticubital Left Blood Culture - Final No growth in 5 days. 10/26/18 01:40 Transtracheal Aspirate Gram Stain - Final 10/26/18 01:40 Transtracheal Aspirate Respiratory Culture - Final 10/26/18 00:10 Urine, Clean Catch Urine Culture - Final Culture exhibits no growth. Laboratory Results 10/31/18 05:00: Sodium 140, Potassium 3.7, Chloride 97 L, Carbon Dioxide 38.0 H, Anion Gap 5, BUN 27 H, Creatinine 0.76, Estim Creat Clear Calc 53.25, Est GFR (MDRD) Af Amer 127, Est GFR (MDRD) Non-Af 105, BUN/Creatinine Ratio 35.8 H, Glucose 100, Calcium 8.6 10/30/18 06:57: WBC 9.6, RBC 4.22 L, Hgb 12.7 L, Hct 39.5 L, MCV 93.6, MCH 30.1, MCHC 32.2, RDW 12.1, RDW Differential 40.9, Plt Count 182, MPV 9.0, Immature Gran % (Auto) 0.600, Neut % (Auto) 58.8, Lymph % (Auto) 22.1, [place] % (Auto) 15.4 H, Eos % (Auto) 3.0, Baso % (Auto) 0.1, Absolute Neuts GFR Clinical Impression(s) from Imaging Studies Chest X-Ray 10/25/18 21:10 IMPRESSION: Increased diffuse interstitial findings particularly in the lower and midlung zones becoming somewhat confluent in areas and could be obscuring underlying nodules/nodular infiltrate. Similar interstitial changes of the right lung. Metastatic disease versus pneumonic process versus lymphangitic carcinomatosis. The confluence of opacity in the right lower lung zone is somewhat larger and less well defined. Fairly stable basilar right pleural effusion or pleural thickening. Severe emphysematous changes are apparent in the upper lung zones. Chest X-Ray 10/25/18 23:24 IMPRESSION: Bilateral interstitial densities and patchy infiltrates, similar to the previous study. Stable right pleural effusion. Questionable left midlung peripheral nodular densities. Chest X-Ray 10/28/18 07:51 IMPRESSION: Since prior study, the patient has been extubated. The orogastric tube has been removed. Progressive infiltration in the right lower lobe with small bilateral effusions worse on the right side. Chest CTA 10/29/18 08:03 IMPRESSION: No evidence for PE. Very severe centrilobular emphysema. Very little pulmonary parenchyma is seen. Possible infiltrating malignant mass in the right lower lobe which was not definitely present previously although this area was partially obscured by effusion which has resolved. New small left pleural effusion. Code Visit Inpatient E&M: 79681 Subs Hosp L3
[2018-10-31] MEDS: Famotidine 20 MG Tablet PO ×2 (09:41→22:12)
[2018-10-31] MEDS: Losartan Potassium 25 MG Tablet PO (09:41)
[2018-10-31] MEDS: amLODIPine 5 MG Tablet PO (09:41)
[2018-10-31] MEDS: Enoxaparin 40 MG/0.4 ML Syringe SC (09:42)
[2018-10-31] MEDS: predniSONE 20 MG Tablet 40 MG PO (09:42)
--- NOTE | 2018-10-31 09:57 | CASEMGMT ---
DOROTEO spoke with Dr Mccartney. He is not sure if patient's lungs are worse as he could only read the report and did not have an image to review. He feels patient needs to follow up with his [employer] Technician soon after d/c. He has a current appt, but not until January. DOROTEO spoke with patient and his . DOROTEO asked them if they feel patient will be okay going home or if he will need to go somewhere for short term rehab. Patient said he feels like he can go home as he does not do much at home anyway. Patient's has not been present when therapy worked with him. DOROTEO told them DOROTEO and FLORINDA GABRIEL will continue to follow for assistance. Kathrine RAMIREZ MSW
--- NOTE | 2018-10-31 10:00 | CASEMGMT ---
Per Dr. Mccartney, pt is scheduled to see Dr. Li, pulmonology at [facility], in January and he would like pt to f/u within a few weeks from discharge here at [facility]. Call to Dr. Li's office at this time and they are updated on all at this time and state they will send to the magazine keeper to move pt's appt up and they will contact pt regarding new appt. Pt to be updated once on PCU. Soheila NEELY CM
[2018-10-31] MEDS: Furosemide 40 MG Tablet PO (11:52)
[2018-10-31] MEDS: levoFLOXacin 750 MG Tablet PO (22:15)
[2018-11-01] VITALS (9 sets, daily range): BP systolic 104–142; BP diastolic 55–77; PULSE 95–110; RESP 16–20; TEMP 36.6–36.8; O2SAT 92–96
[2018-11-01] MEDS: Metoclopramide 5 MG TABLET PO (06:30)
[2018-11-01] MEDS: Ipratropium 0.5 MG/2.5 ML SOLUTION INHALATION ×2 (06:52→11:13)
[2018-11-01] MEDS: amLODIPine 5 MG Tablet PO (09:00)
[2018-11-01] MEDS: predniSONE 20 MG Tablet 40 MG PO (09:00)
[2018-11-01] MEDS: Senna Tablet 2 TABLET PO (09:00)
[2018-11-01] MEDS: Furosemide 40 MG Tablet PO (09:01)
[2018-11-01] MEDS: Losartan Potassium 25 MG Tablet PO (09:01)
[2018-11-01] MEDS: Famotidine 20 MG Tablet PO (09:01)
[2018-11-01] MEDS: Enoxaparin 40 MG/0.4 ML Syringe SC (09:02)
--- NOTE | 2018-11-01 10:16 | PN_ITS ---
Patient Problems: Active and Suspected Problems (Last Reviewed 10/26/18 @ 01:48 by Jacobo Unger MD) Acute respiratory failure with hypoxia and hypercapnia (Acute) Bilateral pneumonia (Acute) Severe sepsis (Acute) Hypotension (Acute) Paroxysmal atrial flutter (Acute) Acute on chronic diastolic (congestive) heart failure (Acute) Acute exacerbation of chronic obstructive pulmonary disease (Acute) Subjective: Patient looks short of breath but I think that his baseline. Discussed with the and she said he is normally short of breath even at rest and got worse on walking. Walking pulse oximetry ordered. Overall feels better. Vitals/I&O's: Vital Signs Temp Pulse Resp BP Pulse Ox 98 F 110 H 20 H 104/64 96 11/01/18 08:49 11/01/18 08:49 11/01/18 08:49 11/01/18 08:49 11/01/18 08:49 Oxygen Flow Rate (L/min) 3 Oxygen Delivery Method Nasal Cannula Weight: 145 lb 15.136 oz Body Mass Index (BMI) 25.2 Intake and Output for Last 24 Hours 10/30/18 10/31/18 11/01/18 23:59 23:59 23:59 Intake Total 1614 / 1614 1090 / 1090 480 / 480 Output Total 2100 / 2100 825 / 825 275 / 275 Balance -486 / -486 265 / 265 205 / 205 General: Alert, Oriented x3, Cooperative HEENT: Atraumatic, PERRLA, EOMI, Normocephalic Neck: Supple, No JVD, Negative Carotid Bruits Lungs: Diminished - Air entry severely diminished, Rhonchi, Short of Breath - On exertion Cardiovascular: Regular rate, Regular Rhythm, Normal S1, Normal S2, No murmurs Abdomen: Bowel Sounds Present, Soft, Non Tender, Non-Distended Extremities: No edema, Capillary Refill Less than 3 Seconds Skin: No rashes, No breakdown Musculoskeletal: No Tenderness to Palpation of Joints or Extremities, Arthritic Changes, Muscle Wasting Lymphatic: No Cervical, Supraclavicular, or Inguinal Adenopathy Neurological: Cranial nerves II-XII grossly intact, Deep Tendon Reflexes 2+/4 and Symmetrical, Neuro grossly intact Psych/Mental Status: Normal Affect, Appropriate Microbiology Past 72 Hours 10/31/18 08:40 Sputum, Expectorated/Coughed Gram Stain - Final 10/25/18 21:42 Blood Culture (Wb) - Right Hand Blood Culture - Final No growth in 5 days. 10/25/18 21:30 Blood Culture (Wb) - Anticubital Left Blood Culture - Final No growth in 5 days. Current Medications Acetaminophen (Tylenol) 650 mg PO Q6H PRN PRN PRN Reason: Mild Pain (scale 0-3)/T>100.7 Last Admin: 10/27/18 16:17 Dose: 650 mg Albuterol Sulfate (Ventolin Aerosols) 2.5 mg INHALATION Q2H PRN PRN PRN Reason: sob/wheezing Amlodipine Besylate (Norvasc) 5 mg PO DAILY [facility] Last Admin: 11/01/18 09:00 Dose: 5 mg Chlorhexidine Gluconate () 1 each TOPICAL DAILY [facility] Last Admin: 11/01/18 08:58 Dose: Not Given Enoxaparin Sodium (Lovenox) 40 mg SC DAILY@1000 [facility] Last Admin: 11/01/18 09:02 Dose: 40 mg Famotidine (Pepcid) 20 mg PO BID [facility] Last Admin: 11/01/18 09:01 Dose: 20 mg Furosemide (Lasix) 40 mg PO DAILY [facility] Last Admin: 11/01/18 09:01 Dose: 40 mg Sodium Chloride () 250 mls @ 15 mls/hr IV .[id number] PRN PRN Reason: SALINE FLUSH Ipratropium [place] (Atrovent) 0.5 mg INHALATION Q4H.RT [facility] Last Admin: 11/01/18 06:52 Dose: 0.5 mg Levofloxacin (Levaquin Tablet) 750 mg PO QHS [facility] Stop: 11/02/18 22:01 Last Admin: 10/31/18 22:15 Dose: 750 mg Losartan Potassium (Cozaar) 25 mg PO DAILY [facility] Last Admin: 11/01/18 09:01 Dose: 25 mg Magnesium Hydroxide (Milk Of Magnesia) 30 ml PO DAILY PRN PRN PRN Reason: Constipation Melatonin (Melatonin) 10 mg PO QHS PRN PRN Reason: INSOMNIA Last Admin: 10/29/18 21:38 Dose: 10 mg Metoclopramide HCl (Metoclopramide Hcl) 5 mg PO TIDAC [facility] Last Admin: 11/01/18 06:30 Dose: 5 mg Nutritional Formula (Lactose Free) (Ensure Enlive) 120 ml PO 4X/DAY [facility] Last Admin: 11/01/18 09:02 Dose: 120 ml Ondansetron HCl (Zofran) 4 mg IV Q8H PRN PRN PRN Reason: NAUSEA Phenol/Menthol (Chloraseptic (Bkc)) 3 spray MM Q2H PRN PRN PRN Reason: SORE THROAT Last Admin: 10/28/18 04:07 Dose: 3 spray Polyethylene Glycol (Miralax) 17 gm PO DAILY PRN PRN PRN Reason: Constipation Prednisone () 40 mg PO DAILY@0800 [facility] Last Admin: 11/01/18 09:00 Dose: 40 mg Senna (Senokot) 2 tablet PO BID [facility] Last Admin: 11/01/18 09:00 Dose: 2 tablet Sodium Chloride () 5 - 15 ml IV UD PRN PRN Reason: SALINE FLUSH Last Admin: 10/31/18 06:05 Dose: 10 ml Medical Necessity - Tobacco Use Smoking Status: Former smoker Assessment/Plan All Active Problems (Last Reviewed 10/26/18 @ 01:48 by Jacobo Unger MD) Acute respiratory failure with hypoxia and hypercapnia (Acute) Bilateral pneumonia (Acute) Severe sepsis (Acute) Hypotension (Acute) Paroxysmal atrial flutter (Acute) Presence of cardiac pacemaker (Acute) Acute on chronic diastolic (congestive) heart failure (Acute) Aortic valve stenosis, nonrheumatic (Acute) History of permanent cardiac pacemaker placement (Resolved) Dyspnea (Acute) Chest pain (Acute) Pulmonary congestion (Acute) Conduction disorder of the heart (Acute) Acute exacerbation of chronic obstructive pulmonary disease (Acute) Acute exacerbation of chronic obstructive pulmonary disease (COPD) (Acute) Drug rash (Acute) Hyperglycemia (Acute) CAP (community acquired pneumonia) (Acute) Hyponatremia (Acute) Dehydration (Acute) Lung nodule, solitary (Acute) The patient is a 83 year old M with a significant medical history of 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, aortic valve stenosis, hypertension, pulmonary hypertension, COPD, lung carcinoma s/p radiation; diastolic dysfunction; 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 1. Severe sepsis secondary to probable community-acquired pneumonia with acute on chronic hypoxic and hypercarbic combined respiratory failure, present since admission: Sepsis (fever of 100.4 Fahrenheit; tachycardia with persistent and highest heart rate of 132; tachypnea with highest respiratory rate of 38; systolic blood pressure blood mid 70s responded with normal saline bolus: On IV Levaquin 750 mg IV daily. Breathing treatment. Urinary antigens are negative. Respiratory panel negative. Blood cultures x2 are negative for more than 48 hours. Sputum from tracheal aspirate shows mixed normal respiratory james. Urine culture is negative. Lactic acid normal Extubated on 10/27/2018. Patient currently is on BiPAP interspersed with nasal cannula. CT chest and ech o reviewed. CT chest shows very severe centrilobular emphysema with very little pulmonary parenchyma seen. It also shows irregular appearing mass in the right lower lobe which was previously obscured by presence of effusion but now resolved. There is also scarring tissue over the right apex. Left-sided pleural effusion. Walking pulse oximetry. Patient adamant on going home with home physical t herapy. Refuses for SNF. 2. Probable exacerbation of COPD most probably secondary to pneumonia Likely due to pneumonia. Breathing treatment and steroid as above 3. Cardiac conditions: Indeterminate mild elevated troponin probably secondary to demand ischemia: Patient denies chest pain. Troponin 0.124, 0.122. It plateaued. Chronic diastolic heart failure/mitral valve calcification. 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 2D echo reported EF 45% with combined systolic and diastolic dysfunction. Left ventricular wall motion is consistent with Takotsubo syndrome. 1-2+ TR, RVSP 78 mmHg suggestive of severe pulmonary hypertension. Moderate to severe aortic valve stenosis BNP 247 4 History of hypertension Currently normotensive 5. History of lung cancer status post radiotherapy: Patient has history of lung cancer of right lower lobe status post radiotherapy on 10/19/2015. Follow-up PET scan in June 2017 shows resolution of mass. CT chest from June 2018 revealed no evidence of recurrence. CT chest June 2018 showed significant bilateral emphysema, ill-defined consolidation in the right lung base with radiation bands of scarring and fibrosis with volume loss consistent with postradiation fibrosis. 6. Esophageal dysphagia patient also has history of esophageal stricture which required dilatation in the past; most probably radiation effect. He states worsening of dysphagia but able to swallow. Patient needs to see GI as an outpatient for EGD. speech/swallow evaluation 6. dyslipidemia and limited functional capacity Stress ulcer prophylaxis Pepcid by G-tube. Early follow-up with [facility] trust and estates attorney Dr. Li discussed with the patient and his CODE STATUS was discussed with the patient and his by Dr. Mccartney. They are reluctant for DNR CC arrest. We will continue full code. Microbiology Past 72 Hours 10/31/18 08:40 Sputum, Expectorated/Coughed Gram Stain - Final 10/31/18 08:40 Sputum, Expectorated/Coughed Respiratory Culture - Preliminary Appears to be normal respiratory james. Further studies to follow. 10/25/18 21:42 Blood Culture (Wb) - Right Hand Blood Culture - Final No growth in 5 days. 10/25/18 21:30 Blood Culture (Wb) - Anticubital Left Blood Culture - Final No growth in 5 days. Laboratory Results 10/31/18 05:00: Sodium 140, Potassium 3.7, Chloride 97 L, Carbon Dioxide 38.0 H, Anion Gap 5, BUN 27 H, Creatinine 0.76, Estim Creat Clear Calc 53.25, Est GFR (MDRD) Af Amer 127, Est GFR (MDRD) Non-Af 105, BUN/Creatinine Ratio 35.8 H, Glucose 100, Calcium 8.6 10/30/18 06:57: WBC 9.6, RBC 4.22 L, Hgb 12.7 L, Hct 39.5 L, MCV 93.6, MCH 30.1, MCHC 32.2, RDW 12.1, RDW Differential 40.9, Plt Count 182, MPV 9.0, Immature Gran % (Auto) 0.600, Neut % (Auto) 58.8, Lymph % (Auto) 22.1, [place] % (Auto) 15.4 H, Eos % (Auto) 3.0, Baso % (Auto) 0.1, Absolute Neuts GFR Clinical Impression(s) from Imaging Studies Chest X-Ray 10/25/18 21:10 IMPRESSION: Increased diffuse interstitial findings particularly in the lower and midlung zones becoming somewhat confluent in areas and could be obscuring underlying nodules/nodular infiltrate. Similar interstitial changes of the right lung. Metastatic disease versus pneumonic process versus lymphangitic carcinomatosis. The confluence of opacity in the right lower lung zone is somewhat larger and less well defined. Fairly stable basilar right pleural effusion or pleural thickening. Severe emphysematous changes are apparent in the upper lung zones. Chest X-Ray 10/25/18 23:24 IMPRESSION: Bilateral interstitial densities and patchy infiltrates, similar to the previous study. Stable right pleural effusion. Questionable left midlung peripheral nodular densities. Chest X-Ray 10/28/18 07:51 IMPRESSION: Since prior study, the patient has been extubated. The orogastric tube has been removed. Progressive infiltration in the right lower lobe with small bilateral effusions worse on the right side. Chest CTA 10/29/18 08:03 IMPRESSION: No evidence for PE. Very severe centrilobular emphysema. Very little pulmonary parenchyma is seen. Possible infiltrating malignant mass in the right lower lobe which was not definitely present previously although this area was partially obscured by effusion which has resolved. New small left pleural effusion. Code Visit Inpatient E&M: 59868 Subs Hosp L2
--- NOTE | 2018-11-01 10:25 | PCM.PROGNOTE ---
Patient Problems: Active and Suspected Problems (Last Reviewed 10/26/18 @ 01:48 by Jacobo Unger MD) Acute respiratory failure with hypoxia and hypercapnia (Acute) Bilateral pneumonia (Acute) Severe sepsis (Acute) Hypotension (Acute) Paroxysmal atrial flutter (Acute) Acute on chronic diastolic (congestive) heart failure (Acute) Acute exacerbation of chronic obstructive pulmonary disease (Acute) Subjective: The patient was seen and examined at the bedside this morning. Events from the last 24 hours have been reviewed. The patient is currently afebrile, hemodynamically stable and maintaining appropriate oxygen saturations on 3 L/min via nasal cannula. The patient is currently documented to be overall net -1.1 L for the admission. Objective: The patient's most recent lab work, culture data and imaging studies have all been personally reviewed. Respiratory viral panel was negative. Strep and urine Legionella antigens were both negative. Blood and urine cultures have been unremarkable. Sputum culture appears to be normal respiratory james. CTA chest revealed no evidence for pulmonary embolism. However, there was evidence of hyperinflated lung tran with extremely significant bilateral emphysematous changes. There did appear to be an irregular appearing density in the lateral aspect of the right lower lobe, which was obscured on prior chest imaging studies by the presence of effusion. There was also evidence of a left-sided pleural effusion. Surface echocardiogram revealed mild segmental systolic dysfunction with an ejection fraction of 45%. There was also evidence of diastolic dysfunction. Right ventricular systolic pressure was estimated to be 78 mmHg. There was also evidence of moderate to severe aortic stenosis. OUTSIDE MEDICAL RECORDS FROM [facility]: Pulmonary medicine office visit on August 29, [address] Li: Reports that patient is using Anoro daily. Also reported worsening dysphagia with concern that patient may need to be seen again by GI for potential EGD and dilation. The patient does have a history of lung cancer of the right lower lobe ([id number]), s/p SBRT completed 10/19/2015. Follow-up PET scan from June 2017 revealed resolution of the right lower lobe mass. CT chest from June 2018 revealed no evidence of recurrence. CT chest without contrast dated June 2018 revealed significant bilateral emphysema, stable calcified biapical scarring, most pronounced in the right apex. There was demonstration of an ill-defined region of consolidation in the right lung base with radiating bands of scar/fibrosis and associated volume loss, consistent with post radiation fibrosis. There was a stable appearing 5 mm nodule in the left lower lobe. - Physical Exam General: Alert, Cooperative, No apparent distress HEENT: Atraumatic, PERRLA, Normocephalic Oral: No Gingival or Mucosal Lesions/ Ulcerations Neck: Supple, No Nodes, Trachea Midline Lungs: No rhonchi, No wheeze, No rales, Diminished Cardiovascular: Regular rate, Regular Rhythm, Normal S1, Normal S2, No murmurs Abdomen: Bowel Sounds Present, Soft, Non Tender Extremities: No cyanosis, No edema, Clubbing Skin: No breakdown Musculoskeletal: No Tenderness to Palpation of Joints or Extremities Lymphatic: No Cervical, Supraclavicular, or Inguinal Adenopathy Neurological: Cranial nerves II-XII grossly intact, Neuro grossly intact Psych/Mental Status: Alert and oriented to time, place, person, mood and affect Vital Signs Temp Pulse Resp BP Pulse Ox 36.6 C 110 H 20 H 104/64 96 11/01/18 08:49 11/01/18 08:49 11/01/18 08:49 11/01/18 08:49 11/01/18 08:49 Oxygen Flow Rate (L/min) 3 Oxygen Delivery Method Nasal Cannula Weight: 145 lb 15.136 oz Body Mass Index (BMI) 25.2 Intake and Output for Last 24 Hours 10/30/18 10/31/18 11/01/18 23:59 23:59 23:59 Intake Total 1614 / 1614 1090 / 1090 480 / 480 Output Total 2100 / 2100 825 / 825 275 / 275 Balance -486 / -486 265 / 265 205 / 205 Microbiology Past 72 Hours 10/31/18 08:40 Gram Stain - Final Sputum, Expectorated/Coughed 10/25/18 21:42 Blood Culture - Final Blood Culture (Wb) - Right Hand No growth in 5 days. 10/25/18 21:30 Blood Culture - Final Blood Culture (Wb) - Anticubital Left No growth in 5 days. Clinical Impression(s) from Imaging Studies Chest X-Ray 10/25/18 21:10 IMPRESSION: Increased diffuse interstitial findings particularly in the lower and midlung zones becoming somewhat confluent in areas and could be obscuring underlying nodules/nodular infiltrate. Similar interstitial changes of the right lung. Metastatic disease versus pneumonic process versus lymphangitic carcinomatosis. The confluence of opacity in the right lower lung zone is somewhat larger and less well defined. Fairly stable basilar right pleural effusion or pleural thickening. Severe emphysematous changes are apparent in the upper lung zones. Electronically Signed: Umm Jiménez MD at 21:33 EDT , Service support , Chest X-Ray 10/25/18 23:24 IMPRESSION: Bilateral interstitial densities and patchy infiltrates, similar to the previous study. Stable right pleural effusion. Questionable left midlung peripheral nodular densities. Electronically Signed: Collin Fields DO at 23:54 EDT Tel [phone], Service support , Chest X-Ray 10/28/18 07:51 IMPRESSION: Since prior study, the patient has been extubated. The orogastric tube has been removed. Progressive infiltration in the right lower lobe with small bilateral effusions worse on the right side. Electronically Signed: Caleb Hartman at 9:12 EDT , Service support , Chest CTA 10/29/18 08:03 IMPRESSION: No evidence for PE. Very severe centrilobular emphysema. Very little pulmonary parenchyma is seen. Possible infiltrating malignant mass in the right lower lobe which was not definitely present previously although this area was partially obscured by effusion which has resolved. New small left pleural effusion. Electronically Signed: Khoa Miranda MD at 15:56 EDT , Service support , Medical Necessity - Tobacco Use Smoking Status: Former smoker Assessment/Plan All Active Problems (Last Reviewed 10/26/18 @ 01:48 by Jacobo Unger MD) Acute respiratory failure with hypoxia and hypercapnia (Acute) Bilateral pneumonia (Acute) Severe sepsis (Acute) Hypotension (Acute) Paroxysmal atrial flutter (Acute) Presence of cardiac pacemaker (Acute) Acute on chronic diastolic (congestive) heart failure (Acute) Aortic valve stenosis, nonrheumatic (Acute) History of permanent cardiac pacemaker placement (Resolved) Dyspnea (Acute) Chest pain (Acute) Pulmonary congestion (Acute) Conduction disorder of the heart (Acute) Acute exacerbation of chronic obstructive pulmonary disease (Acute) Acute exacerbation of chronic obstructive pulmonary disease (COPD) (Acute) Drug rash (Acute) Hyperglycemia (Acute) CAP (community acquired pneumonia) (Acute) Hyponatremia (Acute) Dehydration (Acute) Lung nodule, solitary (Acute) RECOMMENDATIONS: 1. Continue Levaquin to complete 7-day treatment course. 2. Continue prednisone 40 mg daily. Wean by 10 mg every 3 days. 3. Continue Lasix 40 mg daily per home regimen. 4. Continue bronchodilators. Resume Anoro and as needed albuterol at discharge. 5. Continue to wean supplemental oxygen to maintain saturations at or above 88-92%. 6. Encourage incentive spirometer use and mobilize patient as tolerated. 7. Perform walking oximetry study prior to consideration for discharge from the hospital. 8. Follow-up with gastroenterology on an outpatient basis for potential EGD and esophageal dilation. IMPRESSIONS: 1. Acute on chronic combined respiratory failure due to COPD exacerbation secondary to community-acquired pneumonia While the patient did require intubation along with invasive mechanical ventilatory support, he was able to be extubated on October 27. He remains on antibiotics, bronchodilators and steroids. CTA chest revealed no evidence for PE. There was evidence of a right lower lobe density, which per reports from [facility] in 2018 was present and felt to be the consequence of post radiation fibrosis. There was also evidence of a small left pleural effusion. The patient has responded to diuretic therapy. His baseline Lasix regimen of 40 mg daily will be continued. He will be continued on bronchodilators and prednisone, with plans to wean by 10 mg every 3 days. Recommend performing a walking oximetry study prior to consideration for discharge from the hospital. 2. Abnormal chest imaging studies/history of non-small cell lung cancer The patient's CTA chest revealed significant bilateral emphysematous changes with a stable appearing irregular density in the right lung apex. There was also evidence of an irregular spiculated density in the right lower lobe. From a review of the reports of the patient's prior chest CT in 2018 from [facility], it appears that this lesion was likely present at that time and felt to be the consequence of post radiation fibrosis. However, I do not have the physical copies of the imaging study to personally review. I did strongly recommend to the patient that he obtain a physical copy of the CT chest at the time of his discharge, with plans to follow-up with his primary radio program director at [facility], within weeks of discharge, if possible. 3. 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 The patient's systolic dysfunction is new and his LV wall dysfunction may be consistent with an underlying Takotsubo Syndrome. We will plan to continue the patient's baseline Lasix regimen. Recommend repeat echocardiogram in 3-6 months. 4. Pulmonary hypertension/hypertension/hyperlipidemia/advanced age Complicates care, management, recovery and prognosis. Continue home medications as indicated. Physical therapy to work with patient as tolerated. 5. CODE STATUS I spoke with both the patient and his at the bedside at length this morning regarding his underlying lung disease and options for CODE STATUS. At the current time, the patient seems reluctant to make a change from full code to DNR CCA. In August 2017, he was referred to palliative care by our office. However, the patient later declined the referral. This note was generated with [employer] dictation software. It may contain incorrect words, spelling, and punctuation that were not noted in checking the note before signing. Code Visit Inpatient E&M: 68426 Subs Hosp L2
--- NOTE | 2018-11-01 10:30 | CASEMGMT ---
Addendum entered by Shoshana Barrios 11/01/18 15:42: Pt is requiring 5 liters with ambulation. Call to [facility] and they state pt's order is currently 4 liters with ambulation. New order with qualification and F2F documentation faxed to [facility] at this time. Soheila NEELY CM Original Note: This RN CM to room to speak with pt/ regarding therapy recommendations for additional therapy. Pt/ decline HHC at this time but would like OP PT/OT set up at this time. Referral faxed to [facility] per request at this time and original to pt at this time. Per , Dr. Li's office did call her and re-schedule appt for next sunday11/08/18 instead of January. Pt is currently on 3liters oxygen and is ordered 3.5liters at home. [place] RN to ambulate pt on 3.5liters to make sure pt does not require more than that at discharge. This RN CM to follow for any further discharge planning/needs. Soheila NEELY CM
--- NOTE | 2018-11-01 11:40 | PCM.DC ---
- Discharge Diagnoses Current Active Problems: Current Active and Chronic Problems (Last Reviewed 10/26/18 @ 01:48 by Jacobo Unger MD) Acute respiratory failure with hypoxia and hypercapnia (Acute) Bilateral pneumonia (Acute) Severe sepsis (Acute) Hypotension (Acute) Paroxysmal atrial flutter (Acute) Acute on chronic diastolic (congestive) heart failure (Acute) Aortic valve disorder (Chronic) Pulmonary hypertension (Chronic) Acute exacerbation of chronic obstructive pulmonary disease (Acute) GERD (gastroesophageal reflux disease) (Chronic) Lung cancer (Chronic) You will use the following diet at home:: Cardiac Your food should be the consistency of: Mechanical soft (ground) - dysphagia diet Discharge Activity: May Not Drive Additional Instructions: Patient has follow-up with [facility] choir director, Dr. Li at 8 AM on 11/08/2018. Please send a CD copy of CT chest done here. Follow-up with GI for potential EGD and esophageal dilatation patient has history of esophageal dysphagia and had dilatation in the past Allergies/Adverse Reactions: Allergies ampicillin Allergy (Verified 10/25/18 20:47) Anaphylaxis codeine Allergy (Verified 10/25/18 20:47) Rash penicillin G Allergy (Verified 10/25/18 20:47) Rash Sulfa (Sulfonamide Antibiotics) Allergy (Verified 10/25/18 20:47) Rash Medications to take at Discharge Cholecalciferol (VIT D3) [Vitamin D3] 1,000 unit PO DAILY 06/25/16 Polyethylene Glycol 3350 [Miralax] 17 gm PO DAILY PRN PRN 09/27/16 Acetaminophen [Tylenol Tablet] 650 mg PO Q6H PRN PRN #0 tab 10/24/16 Amlodipine [Norvasc] 5 mg PO DAILY #30 tab 06/12/17 Losartan Potassium 25 mg PO DAILY #0 06/12/17 umeclidinium 62.5 mcg-vilanterol 25 mcg/actuation powdr for inhalation 1 inh INHALATION Q24H 08/16/17 Albuterol IH (ProAir) [Proair Hfa] 2 puff INHALATION Q4H PRN PRN #0 11/01/18 Furosemide [Lasix] 40 mg PO DAILY #30 tab 11/01/18 Ipratropium/Albuterol Sulfate [Duoneb] 3 ml INHALATION Q4H PRN PRN #30 ampul.neb 11/01/18 Prednisone 10 mg PO DAILY #30 tablet 11/01/18 Senna [Senokot] 2 tablet PO BID PRN PRN tablet 11/01/18 levoFLOXacin tablet [Levaquin tablet] 750 mg PO QHS #2 tablet 11/01/18 The following prescriptions were given: Ipratropium/Albuterol Sulfate [Duoneb] 3 ml INHALATION Q4H PRN PRN #30 ampul.neb PRN Reason: Shortness Of Breath Furosemide [Lasix] 40 mg PO DAILY #30 tab levoFLOXacin tablet [Levaquin tablet] 750 mg PO QHS #2 tablet Prednisone 10 mg PO DAILY #30 tablet Primary Care Physician: Misael Valencia MD [Primary Care Provider] - Please follow up with your Primary Care Physician in: in 1-2 week Test Results: Test results from this visit will be discussed in further detail at your follow-up appointment, if applicable. Please Follow Up With: Janusz Mccartney DO When: in 2-3 weeks
--- NOTE | 2018-11-01 13:00 | NURSING ---
pt requires 5L O2 while ambulating to maintain sats at or above 92%
--- NOTE | 2018-11-01 13:10 | DCINST_ITS ---
- Discharge Diagnoses Current Active Problems: Current Active and Chronic Problems (Last Reviewed 10/26/18 @ 01:48 by Jacobo Unger MD) Acute respiratory failure with hypoxia and hypercapnia (Acute) Bilateral pneumonia (Acute) Severe sepsis (Acute) Hypotension (Acute) Paroxysmal atrial flutter (Acute) Acute on chronic diastolic (congestive) heart failure (Acute) Aortic valve disorder (Chronic) Pulmonary hypertension (Chronic) Acute exacerbation of chronic obstructive pulmonary disease (Acute) GERD (gastroesophageal reflux disease) (Chronic) Lung cancer (Chronic) You will use the following diet at home:: Cardiac Your food should be the consistency of: Mechanical soft (ground) - dysphagia diet Discharge Activity: May Not Drive Additional Instructions: Patient has follow-up with [facility] crm architect, Dr. Li at 8 AM on 11/08/2018. Please send a CD copy of CT chest done here. Follow-up with GI for potential EGD and esophageal dilatation patient has history of esophageal dysphagia and had dilatation in the past Allergies/Adverse Reactions: Allergies ampicillin Allergy (Verified 10/25/18 20:47) Anaphylaxis codeine Allergy (Verified 10/25/18 20:47) Rash penicillin G Allergy (Verified 10/25/18 20:47) Rash Sulfa (Sulfonamide Antibiotics) Allergy (Verified 10/25/18 20:47) Rash Medications to take at Discharge Cholecalciferol (VIT D3) [Vitamin D3] 1,000 unit PO DAILY 06/25/16 Polyethylene Glycol 3350 [Miralax] 17 gm PO DAILY PRN PRN 09/27/16 Acetaminophen [Tylenol Tablet] 650 mg PO Q6H PRN PRN #0 tab 10/24/16 Amlodipine [Norvasc] 5 mg PO DAILY #30 tab 06/12/17 Losartan Potassium 25 mg PO DAILY #0 06/12/17 umeclidinium 62.5 mcg-vilanterol 25 mcg/actuation powdr for inhalation 1 inh INHALATION Q24H 08/16/17 Albuterol IH (ProAir) [Proair Hfa] 2 puff INHALATION Q4H PRN PRN #0 11/01/18 Furosemide [Lasix] 40 mg PO DAILY #30 tab 11/01/18 Ipratropium/Albuterol Sulfate [Duoneb] 3 ml INHALATION Q4H PRN PRN #30 ampul.neb 11/01/18 Prednisone 10 mg PO DAILY #30 tablet 11/01/18 Senna [Senokot] 2 tablet PO BID PRN PRN tablet 11/01/18 levoFLOXacin tablet [Levaquin tablet] 750 mg PO QHS #2 tablet 11/01/18 The following prescriptions were given: Ipratropium/Albuterol Sulfate [Duoneb] 3 ml INHALATION Q4H PRN PRN #30 ampul.neb PRN Reason: Shortness Of Breath Furosemide [Lasix] 40 mg PO DAILY #30 tab levoFLOXacin tablet [Levaquin tablet] 750 mg PO QHS #2 tablet Prednisone 10 mg PO DAILY #30 tablet Primary Care Physician: Misael Valencia MD [Primary Care Provider] - Please follow up with your Primary Care Physician in: in 1-2 week Test Results: Test results from this visit will be discussed in further detail at your follow- up appointment, if applicable. Please Follow Up With: Janusz Mccartney DO When: in 2-3 weeks
--- NOTE | 2018-11-01 13:22 | PCM.DC.SUM ---
Discharge Date and Diagnosis - Problem List Patient Problems: Active and Suspected Problems (Last Reviewed 10/26/18 @ 01:48 by Jacobo Unger MD) Acute respiratory failure with hypoxia and hypercapnia (Acute) Bilateral pneumonia (Acute) Severe sepsis (Acute) Hypotension (Acute) Paroxysmal atrial flutter (Acute) Acute on chronic diastolic (congestive) heart failure (Acute) Acute exacerbation of chronic obstructive pulmonary disease (Acute) Date of Admission: 10/25/18 Date of Discharge: 11/01/18 - Primary Discharge Diagnosis Active and Suspected Problems (Last Reviewed 10/26/18 @ 01:48 by Jacobo Unger MD) Acute respiratory failure with hypoxia and hypercapnia (Acute) Bilateral pneumonia (Acute) Severe sepsis (Acute) Hypotension (Acute) Paroxysmal atrial flutter (Acute) Acute on chronic diastolic (congestive) heart failure (Acute) Acute exacerbation of chronic obstructive pulmonary disease (Acute) - Secondary Discharge Diagnosis Chronic Problems (Last Reviewed 10/26/18 @ 01:48 by Jacobo Unger MD) Non-rheumatic tricuspid valve insufficiency (Chronic) Diastolic dysfunction (Chronic) 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) Chronic respiratory failure (Chronic) COPD (chronic obstructive pulmonary disease) (Chronic) Aortic valve disorder (Chronic) Pulmonary hypertension (Chronic) FH: cardiovascular disease (Chronic) Family history of diabetes mellitus (DM) (Chronic) Colon polyps (Chronic) GERD (gastroesophageal reflux disease) (Chronic) Bullous emphysema (Chronic) Lung cancer (Chronic) HTN (hypertension) (Chronic) Hospital Course and Treatment Operations: None Summary of Care Provided: [] The patient is a 83 year old M with a significant medical history of 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, aortic valve stenosis, hypertension, pulmonary hypertension, COPD, lung carcinoma s/p radiation; diastolic dysfunction; 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 1. Severe sepsis secondary to probable community-acquired pneumonia with acute on chronic hypoxic and hypercarbic combined respiratory failure, present since admission: Sepsis (fever of 100.4 Fahrenheit; tachycardia with persistent and highest heart rate of 132; tachypnea with highest respiratory rate of 38; systolic blood pressure blood mid 70s responded with normal saline bolus: On IV Levaquin 750 mg IV daily. Breathing treatment. Urinary antigens are negative. Respiratory panel negative. Blood cultures x2 are negative for more than 48 hours. Sputum from tracheal aspirate shows mixed normal respiratory james. Urine culture is negative. Lactic acid normal Extubated on 10/27/2018. Patient currently is on BiPAP interspersed with nasal cannula. CT chest and echo reviewed. CT chest shows very severe centrilobular emphysema with very little pulmonary parenchyma seen. It also shows irregular appearing mass in the right lower lobe which was previously obscured by presence of effusion but now resolved. There is also scarring tissue over the right apex. Left-sided pleural effusion. Walking pulse oximetry. Patient adamant on going home with home physical therapy. Refuses for SNF. 2. Probable exacerbation of COPD most probably secondary to pneumonia Likely due to pneumonia. Breathing treatment and steroid as above 3. Cardiac conditions: Indeterminate mild elevated troponin probably secondary to demand ischemia: Patient denies chest pain. Troponin 0.124, 0.122. It plateaued. Chronic diastolic heart failure/mitral valve calcification. 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 2D echo reported EF 45% with combined systolic and diastolic dysfunction. Left ventricular wall motion is consistent with Takotsubo syndrome. 1-2+ TR, RVSP 78 mmHg suggestive of severe pulmonary hypertension. Moderate to severe aortic valve stenosis BNP 247 4 History of hypertension Currently normotensive 5. History of lung cancer status post radiotherapy: Patient has history of lung cancer of right lower lobe status post radiotherapy on 10/19/2015. Follow-up PET scan in June 2017 shows resolution of mass. CT chest from June 2018 revealed no evidence of recurrence. CT chest June 2018 showed significant bilateral emphysema, ill-defined consolidation in the right lung base with radiation bands of scarring and fibrosis with volume loss consistent with postradiation fibrosis. 6. Esophageal dysphagia: patient also has history of esophageal stricture which required dilatation in the past; most probably radiation effect. He states worsening of dysphagia but able to swallow. Patient needs to see GI as an outpatient for EGD. speech/swallow evaluation 6. dyslipidemia and limited functional capacity Early follow-up with [facility] boring machine set up operator jig Dr. Li discussed with the patient and his CODE STATUS was discussed with the patient and his by Dr. Mccartney. They are reluctant for DNR CC arrest. continue full code. Patient and his to discuss further regarding goal of life/CODE STATUS with there has 4 sons. Discharge medication reconciliation done. Discharge follow-up instructions completed. Discharge process discussed with the patient and his and all questions were answered to patient's satisfaction. Scripts given for Levaquin, 2 more doses to complete total 7 days, DuoNeb nebulization, tapering dose of prednisone and Lasix. Medications discussed with the patient. Patient has follow-up with [facility] boring machine set up operator jig, Dr. Li at 8 AM on 11/08/2018. Please send a CD copy of CT chest done Dr. Li office or and over to the patient. Follow-up with GI for potential EGD and esophageal dilatation patient has history of esophageal dysphagia and had dilatation in the past Patient requires home oxygen with portability and is ambulatory in home in the community.Patient had walking pulse oximetry and require 3 liter of oxygen at rest and 5 L on ambulation/mild exertion. Total time spent, exact 35 minutes on discharge meds reconciliation, examination, review of imaging and blood test and discussion with the patient on follow-up instructions. Patient Problems: Active and Suspected Problems (Last Reviewed 10/26/18 @ 01:48 by Jacobo Unger MD) Acute respiratory failure with hypoxia and hypercapnia (Acute) Bilateral pneumonia (Acute) Severe sepsis (Acute) Hypotension (Acute) Paroxysmal atrial flutter (Acute) Acute on chronic diastolic (congestive) heart failure (Acute) Acute exacerbation of chronic obstructive pulmonary disease (Acute) Subjective: Please see progress note of today, 11/02/1999 - Physical Exam Vital Signs Temp Pulse Resp BP Pulse Ox 98 F 104 H 16 104/64 96 11/01/18 08:49 11/01/18 11:14 11/01/18 11:14 11/01/18 08:49 11/01/18 08:49 Oxygen Flow Rate (L/min) 3 Oxygen Delivery Method Nasal Cannula Weight: 145 lb 15.136 oz Body Mass Index (BMI) 25.2 Intake and Output for Last 24 Hours 10/30/18 10/31/18 11/01/18 23:59 23:59 23:59 Intake Total 1614 / 1614 1090 / 1090 480 / 480 Output Total 2100 / 2100 825 / 825 275 / 275 Balance -486 / -486 265 / 265 205 / 205 Microbiology Past 72 Hours 10/31/18 08:40 Gram Stain - Final Sputum, Expectorated/Coughed Respiratory Culture - Preliminary Appears to be normal respiratory james. Further studies to follow. 10/25/18 21:42 Blood Culture - Final Blood Culture (Wb) - Right Hand No growth in 5 days. 10/25/18 21:30 Blood Culture - Final Blood Culture (Wb) - Anticubital Left No growth in 5 days. Discharge Activity: May Not Drive Home Medications: Medications to take at Discharge Cholecalciferol (VIT D3) [Vitamin D3] 1,000 unit PO DAILY 06/25/16 Polyethylene Glycol 3350 [Miralax] 17 gm PO DAILY PRN PRN 09/27/16 Acetaminophen [Tylenol Tablet] 650 mg PO Q6H PRN PRN #0 tab 10/24/16 Amlodipine [Norvasc] 5 mg PO DAILY #30 tab 06/12/17 Losartan Potassium 25 mg PO DAILY #0 06/12/17 umeclidinium 62.5 mcg-vilanterol 25 mcg/actuation powdr for inhalation 1 inh INHALATION Q24H 08/16/17 Albuterol IH (ProAir) [Proair Hfa] 2 puff INHALATION Q4H PRN PRN #0 11/01/18 Furosemide [Lasix] 40 mg PO DAILY #30 tab 11/01/18 Ipratropium/Albuterol Sulfate [Duoneb] 3 ml INHALATION Q4H PRN PRN #30 ampul.neb 11/01/18 Prednisone 10 mg PO DAILY #30 tablet 11/01/18 Senna [Senokot] 2 tablet PO BID PRN PRN tablet 11/01/18 levoFLOXacin tablet [Levaquin tablet] 750 mg PO QHS #2 tablet 11/01/18 Following Prescrptions Were Given to Patient: Ipratropium/Albuterol Sulfate [Duoneb] 3 ml INHALATION Q4H PRN PRN #30 ampul.neb PRN Reason: Shortness Of Breath Furosemide [Lasix] 40 mg PO DAILY #30 tab levoFLOXacin tablet [Levaquin tablet] 750 mg PO QHS #2 tablet Prednisone 10 mg PO DAILY #30 tablet Primary Care Physician: Misael Valencia MD [Primary Care Provider] - Please follow up with your Primary Care Physician in: in 1-2 week Please Follow Up With: Janusz Mccartney, DO When: in 2-3 weeks Medical Necessity - Tobacco Use Smoking Status: Former smoker Meaningful Use Info Meaningful Use Diagnoses (Choose all that apply): None applicable Code Visit Inpatient E&M: 55222 Disch Hosp
--- NOTE | 2018-11-04 15:12 | CASEMGMT ---
Addendum entered by Shoshana Barrios 11/05/18 11:09: Pt placed call back to this RN CM at this time. Pt states has been 'doing pretty good' since discharge and states has had a couple f/u appt's and a few more scheduled. Pt states no questions regarding discharge instructions or medications at this time. Pt states no suggestions for [facility] at this time. Pt voices no further questions/concerns/needs at this time. Soheila NEELY CM Original Note: RN CM Discharge F/U Phone Call LACE: 13 Strata: 4 Discharge date: 11/01/18 Call date: 11/04/18 Call time: 1513 Attempted to reach pt without success at this time, message left for pt to call this RN CM back, if/when able. Soheila NEELY CM Admission dx: Severe sepsis, resp failure, pna
== END 2018-11-01 16:34 | disposition home or self-care (01) | DRG 871 ==
LOC: ED 23:10 → ICU 23:45 → PCU 10-31 11:02
PROVIDERS: Internal Medicine Critical Care Medicine; Admitting Provider Hospitalist; Emergency Provider Emergency Medicine; Family Provider Internal Medicine; PCP Internal Medicine; Visit Provider Internal Medicine
DX: A41.9 Sepsis, unspecified organism (principal); J18.9 Pneumonia, unspecified organism; J96.22 Acute and chronic respiratory failure with hypercapnia; J96.21 Acute and chronic respiratory failure with hypoxia; I50.33 Acute on chronic diastolic (congestive) heart failure; J44.1 Chronic obstructive pulmonary disease with (acute) exacerbation; J44.0 Chronic obstructive pulmonary disease with (acute) lower respiratory infection; I48.92 Unspecified atrial flutter; I24.8 Other forms of acute ischemic heart disease; R65.20 Severe sepsis without septic shock; K21.9 Gastro-esophageal reflux disease without esophagitis; R13.10 Dysphagia, unspecified; I27.20 Pulmonary hypertension, unspecified; I11.0 Hypertensive heart disease with heart failure; E78.5 Hyperlipidemia, unspecified; I36.1 Nonrheumatic tricuspid (valve) insufficiency; I35.0 Nonrheumatic aortic (valve) stenosis; I44.1 Atrioventricular block, second degree; Z99.81 Dependence on supplemental oxygen; Z95.0 Presence of cardiac pacemaker; Z92.3 Personal history of irradiation; Z87.891 Personal history of nicotine dependence; Z85.118 Personal history of other malignant neoplasm of bronchus and lung
CPT/HCPCS: 31500; 31720; 36600; 71045; 71275; 80048; 80053; 81001; 82550; 82803; 83605; 83735; 83880; 84100; 84478; 84484; 85025; 85610; 85730; 87040; 87070; 87086; 87205; 87449; 87633; 87641; 87804; 92526; 93005; 93306; 94002; 94003; 94640; 94660; 95831; 97110; 97163; 97166; 97530; 97802; 99251; 99285; J7030; J7040; Q9967; A4216; G0463; J1940

== ENCOUNTER 2019-05-27 23:31 | Inpatient (IN) | payer MEDICARE, OTHER, SELFPAY ==
[2019-04-10 13:08] VITALS: BMI 23.6
[2019-05-27 23:31] VITALS: O2SAT 90
[2019-05-27 23:32] VITALS: BP 195/94; PULSE 115; RESP 32; TEMP 36.3; O2SAT 88; BMI 23.3
--- NOTE | 2019-05-27 23:38 | RAD_ITS ---
STUDY: X-RAY CHEST REASON FOR EXAM: Male, 83 years old. Dyspnea TECHNIQUE: Single AP portable view of the chest. COMPARISON: 10/28/2018 FINDINGS: Pacemaker is seen on the left side. There are interstitial fibrotic changes of the lungs. There is a small right pleural effusion. Normal size heart. Normal mediastinum and rafia. Normal visualized pulmonary arteries. There is atherosclerotic calcification of the aortic arch with tortuosity. Normal visualized thoracic spine. There is degenerative osteoarthritis of the bilateral shoulders. There is no demonstrated abnormality of the visualized soft tissue structures of the upper abdomen. RAD/Chest 1 View (Portable) IMPRESSION: Chronic interstitial lung disease without significant change since the previous study. Electronically Signed: Swetha Tracy, at 0:34 EDT Tel , Service support ,
--- NOTE | 2019-05-27 23:38 | EKG12_ITS ---
Test Reason : SOB Blood Pressure : / mmHG Vent. Rate : 118 BPM Atrial Rate : 118 BPM P-R Int : 000 ms QRS Dur : 178 ms QT Int : 398 ms P-R-T Axes : 000 269 091 degrees QTc Int : 557 ms Ventricular-paced rhythm Abnormal ECG Sinus tachycardia Confirmed by ANGEL LUIS SOTO, SHASHANK ([id number]), general expeditor KEENAN SOTO ([id number]) on 05/30/2019 10:58:50 AM Referred By: DANIEL Confirmed By:SHASHANK HEIN MD
[2019-05-27 23:40] VITALS: PULSE 118; RESP 12; RESP 44; O2SAT 96
--- NOTE | 2019-05-27 23:45 | ED.VISSUMM ---
- ER Visit Summary Date of Service: 05/27/19 Chief Complaint: Shortness of breath History of Present Illness: The patient is a 83 M who comes in with shortness of breath. states that his shortness of breath started tonight. He has a history of COPD and wears oxygen at 4 L. He no longer smokes. states he got more short of breath tonight. He has been coughing. EMS was called and he was 70% on his 4 L. They administered albuterol treatments and placed on a nonrebreather and got him up to 90%. He was intubated in October for his COPD. Dr. Powers is his hired hand. Physical Examination: Vital signs reviewed. He was 90% on 15 L nonrebreather. He intermittently answers questions due to shortness of breath. HEENT exam is unremarkable. Heart is tachycardic and regular without murmurs. Lungs have limited air movement and diminished sounds but when I do hear sounds they are wheezing. Abdomen is soft and distended. Skin reveals no cyanosis. He is alert and oriented to self only. He has diffuse overall weakness and is again intermittently answering questions. Test Results: Chest x-ray shows chronic changes but no infiltrates. EKG is a paced rhythm with a rate of 118. Laboratory studies show sodium of 128, bicarb 34, normal creatinine. Troponin and BNP normal. Lactate normal. ABG showed a pH of 7.0 6/127/132/36 Emergency Department Course and Treatment: Patient was placed on BiPAP with settings of 14/6 arrival. His mental status improved throughout his emergency department stay. ABG was obtained after the BiPAP and his PCO2 was 127. His pH was 7.06. At this point with his mental status improving on BiPAP I will increase his positive pressure to 20. I would hesitate in intubating this patient due to his age and the status of his lungs I feel that he would be on a vent for a long period of time. I feel that monitoring him on the BiPAP and watching his mental status would be the best for him at this time. If his mental status does deteriorate or if he develops vomiting been intubation would likely be needed. I discussed this with the family and they are on board with this. I discussed with the hospitalist and patient will be admitted to the ICU for close monitoring Treatment Plan: [] Disposition: Admit Impression: Acute on chronic respiratory failure, COPD exacerbation Critical care time 35 minutes This note was generated with [employer] dictation software. It may contain incorrect words, spelling, and punctuation that were not noted in review of the chart prior to signing ED Disposition - Plan for ED Patient: Referrals: Misael Valencia MD [Primary Care Provider] -
[2019-05-27 23:47] VITALS: O2SAT 96
[2019-05-27 23:49] LABS: Absolute Lymphocyte Count 3.87 X10^3/uL (0.83-4.51); Absolute Neutrophil Count 4.6 X10^3/uL (2.0-7.7); Eosinophil# 0.26 X10^3/uL; Eosinophils% 2.6 % (0-5); Hematocrit 43.3 % (40-54); Hemoglobin 13.5 g/dL (13.0-16.5); Lymphocyte # 3.87 X10^3/ul (4.0); Lymphocyte % 38.2 % (19-41); Mean Corp Hgb Conc 31.2 g/dL (32-36); Mean Corpuscular Hgb 30.5 pg (27.0-32.0); Mean Platelet Vol. 9.1 fl (6.2-12.0); Monocyte# 1.15 X10^3/uL; Monocyte% 11.4 % (0-10); NRBC Flagged by Analyzer 0 % (0-5); Neutrophil % 45.4 % (47-70); Platelet Count 203 K/mm3 (150-450); RBC Distribution Width CV 11.1 % (11.6-14.6); RBC Distribution Width SD 40.6 fl (35.1-43.9); Red Blood Count 4.42 M/mm3 (4.6-6.2); White Blood Count 10.1 K/mm3 (4.4-11.0)
[2019-05-27] MEDS: MethylPREDNISolone 125 MG/2 ML Vial IV (23:49)
[2019-05-27 23:53] VITALS: O2SAT 96
[2019-05-28] VITALS (67 sets, daily range): BP systolic 68–154; BP diastolic 41–83; PULSE 70–128; RESP 12–40; TEMP 36.3–37.9; O2SAT 88–100; BMI 23.3; BMI 24.3
[2019-05-28] MEDS: Albuterol 2.5 MG/3 ML VIAL.NEB. INHALATION ×3 (00:03)
[2019-05-28 00:09] LABS: Anion Gap 5 (5-15); BUN 14 mg/dL (7-18); BUN/Creat Ratio 21.8 RATIO (10-20); Chloride 89 mmol/L (98-107); Creatinine, Serum 0.64 mg/dL (0.70-1.30); EST Glomerular Filtration Rate 127 mL/min (>60); Est Glom Filt Rate - Afr Amer 154 mL/min (>60); Estimated Creatinine Clearance 56.95 ml/min; Glucose 251 mg/dL (74-106); Potassium 4.4 mmol/L (3.5-5.1); Sodium Level 128 mmol/L (136-145)
[2019-05-28 00:26] LABS: Prothrombin Time (Protime)PT. 13.3 SECONDS (11.7-14.9)
[2019-05-28 00:27] LABS: Partial Thromboplast Time 30.3 Seconds (24.1-36.2)
[2019-05-28 00:41] LABS: Allen Test POS; Base Excess 6 mmol/L (-2 to +2); Bicarbonate 36.6 mmol/L (22-26); Blood Gas Specimen Type ART; EPAP 6; FI02 80; IPAP 14; PO2 132 mmHG (75-100); RR 12; SITE R Radial; SO2 97 % (95-99); Time Given 40; Total Carbon Dioxide 40 mmol/L; pCO2 127.1 mmHg (35-45); pH 7.07 (7.35-7.45)
[2019-05-28 00:42] LABS: BNP,B-Type NATRIURETIC PEPTIDE 90.1 pg/mL (0-100)
--- NOTE | 2019-05-28 00:45 | CPS ---
Critical ABG results given to Dr. Maier, verbal order received to increase ipap to 20 and repeat abg in half an hour.
[2019-05-28 00:47] LABS: Lactic Acid 1.2 mmol/L (0.4-2.0)
--- NOTE | 2019-05-28 00:56 | HP.PCM_ITS ---
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 (7) Diastolic dysfunction Status: Chronic (8) Non-rheumatic tricuspid valve insufficiency Status: Chronic (9) Aortic valve stenosis, nonrheumatic Status: Chronic (10) Mobitz type 2 second degree AV block Status: Chronic (11) Chronic respiratory failure Status: Chronic Qualifiers: Respiratory failure complication: hypoxia Qualified Code(s): J96.11 - Chronic respiratory failure with hypoxia (12) Dyspnea Status: Acute (13) COPD (chronic obstructive pulmonary disease) Status: Chronic Qualifiers: COPD type: unspecified COPD Qualified Code(s): J44.9 - Chronic obstructive pulmonary disease, unspecified (14) Aortic valve disorder Status: Chronic (15) Pulmonary hypertension Status: Chronic (16) GERD (gastroesophageal reflux disease) Status: Chronic Qualifiers: Esophagitis presence: esophagitis presence not specified Qualified Code(s): K21.9 - Gastro-esophageal reflux disease without esophagitis (17) Bullous emphysema Status: Chronic History of Present Illness Date of Admission: 05/28/19 Chief Complaint: shortness of breath The patient is a 83 year old M with a significant history of lung cancer; permanent pacemaker; essential hypertension; diastolic heart failure; COPD with 4 L nasal cannula home oxygen [id number] who presented to emergency department with sudden shortness of breath that started about 20 minutes before presentation. When paramedics got his place his oxygen saturation was 70% on his 4 L nasal cannula. He was placed on nonrebreather which brought his oxygen saturation to 90%. At the emergency department patient was found to have severely low pH; severely high PCO2. Patient was placed on BiPAP. Associated with his symptoms is wheezing. Patient has a chronic productive cough with at times clear to at times brownish- green sputum. 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) 06/11/17 Chronic respiratory failure (Chronic) COPD (chronic obstructive pulmonary disease) (Chronic) Conduction disorder of the heart (Chronic) Aortic valve disorder (Chronic) Pulmonary hypertension (Chronic) GERD (gastroesophageal reflux disease) (Chronic) Bullous emphysema (Chronic) Medical History: Medical History (Last Reviewed 05/28/19 @ 02:11 by Jacobo Unger MD) Paroxysmal atrial flutter (Chronic) I48.92 Non-rheumatic tricuspid valve insufficiency (Chronic) I36.1 Diastolic dysfunction (Chronic) I51.9 Aortic valve stenosis, nonrheumatic (Chronic) I35.0 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) I44.1 Chronic respiratory failure (Chronic) J96.10 Dyspnea (Acute) R06.00 COPD (chronic obstructive pulmonary disease) (Chronic) J44.9 Chest pain (Inactive) R07.9 Conduction disorder of the heart (Chronic) I45.9 Aortic valve disorder (Chronic) I35.9 Pulmonary hypertension (Chronic) I27.20 GERD (gastroesophageal reflux disease) (Chronic) K21.9 Bullous emphysema (Chronic) J43.9 Lung nodule, solitary (Inactive) R91.1 Lung cancer (Inactive) C34.90 Anxiety F41.9 Hemoptysis R04.2 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 Chronic hypoxemic respiratory failure J96.11 Colon polyps FH: cardiovascular disease Z82.49 Family history of diabetes mellitus (DM) Z83.3 Acute exacerbation of chronic obstructive pulmonary disease (COPD) (Resolved) J44.1 Acute on chronic diastolic (congestive) heart failure (Resolved) I50.33 CAP (community acquired pneumonia) (Resolved) J18.9 failed OP therapy with Amoxicillin Dehydration (Resolved) E86.0 Drug rash (Resolved) L27.0 Hyperglycemia (Resolved) R73.9 Hyponatremia (Resolved) E87.1 Pulmonary congestion (Resolved) R09.89 Allergies ampicillin Allergy (Verified 05/27/19 23:41) Anaphylaxis codeine Allergy (Verified 05/27/19 23:41) Rash penicillin G Allergy (Verified 05/27/19 23:41) Rash Sulfa (Sulfonamide Antibiotics) Allergy (Verified 05/27/19 23:41) Rash Home Medications: Ambulatory Orders Medication Instructions Recorded Cholecalciferol (VIT D3) [Vitamin 1,000 unit PO DAILY 06/25/16 D3] Polyethylene Glycol 3350 [Miralax] 17 gm PO DAILY PRN PRN 09/27/16 Acetaminophen [Tylenol Tablet] 650 mg PO Q6H PRN PRN #0 tab 10/24/16 Amlodipine [Norvasc] 5 mg PO DAILY #30 tab 06/12/17 Losartan Potassium 25 mg PO DAILY #0 06/12/17 umeclidinium 62.5 mcg-vilanterol 1 inh INHALATION Q24H 08/16/17 25 mcg/actuation powdr for inhalation Albuterol IH (ProAir) [Proair Hfa] 2 puff INHALATION Q4H PRN PRN #0 11/01/18 Furosemide [Lasix] 40 mg PO DAILY #30 tab 11/01/18 Ipratropium/Albuterol Sulfate 3 ml INHALATION Q4H PRN PRN #30 11/01/18 [Duoneb] ampul.neb Surgical History: Surgical History (Last Reviewed 05/28/19 @ 02:11 by Jacobo Unger MD) History of permanent cardiac pacemaker placement (Chronic) Z95.0 06/11/17 History of appendectomy Z98.890, Z90.49 Hx of cataract surgery Z98.49 Surgical History: appendectomy, cataract Psychiatric History: No pertinent psych hx Lives: Spouse/ Significant Other Smoking Status: Former smoker Tobacco Use: Cigarettes, Cigars - *Family History Paternal Family History: Family History (Last Reviewed 05/28/19 @ 01:56 by Jacobo Unger MD) Brother Diabetes Sister Diabetes Lung cancer History Items: No pertinent history Offspring Family History: Family History (Last Reviewed 05/28/19 @ 01:56 by Jacobo Unger MD) Brother Diabetes Sister Diabetes Lung cancer History Items: COPD Sibling Family History: Family History (Last Reviewed 05/28/19 @ 01:56 by Jacobo Unger MD) Brother Diabetes Sister Diabetes Lung cancer History Items: COPD, Diabetes, Heart Disease Maternal Family History: Family History (Last Reviewed 05/28/19 @ 01:56 by Jacobo Unger MD) Brother Diabetes Sister Diabetes Lung cancer History Items: Heart Disease, - - osteoporosis Review of Systems Constitutional: Denies: Chills, Fever, Weight Change HEENT: Denies: Head Aches, Sinus Congestion, Sinus Drainage Cardiovascular: Denies: Chest Pain, Palpitations Respiratory: Reports: Cough - Chronic, Shortness of Breath, Sputum production - chronic, Wheezing Gastrointestinal: Denies: Abdominal Pain, Nausea, Vomiting Genitourinary: Denies: Dysuria Musculoskeletal: Denies: Joint Pain, Joint Tenderness Skin: Denies: Rash, Wounds Neurological: Denies: Numbness, Tingling, Focal weakness Psychiatric: Denies: Anxiety, Depression, Homicidal Ideations, Suicidal Ideations Hematologic/ Lymphatic: Denies: Easy Bruising, Easy Bleeding VTE Information - Inpt Only VTE Present on Admission: No VTE Mechan Device Prophylaxis: None VTE Pharm Prophylaxis ordered?: Yes Patient Problems: Active and Suspected Problems (Last Reviewed 05/28/19 @ 02:11 by Jacobo Unger MD) COPD exacerbation (Acute) - Physical Exam Vitals/I&O's: Vital Signs Temp Pulse Resp BP Pulse Ox 97.3 F L 117 H 32 H 195/94 H 97 05/27/19 23:32 05/28/19 00:45 05/28/19 00:45 05/27/19 23:32 05/28/19 00:45 Oxygen Flow Rate (L/min) 15 Oxygen Delivery Method Bi-pap Weight: 71.7 kg Body Mass Index (BMI) 23.3 General: Alert, Oriented x3, Cooperative HEENT: Atraumatic, PERRLA, EOMI, Normocephalic Neck: Supple, No JVD, Trachea Midline Lungs: Short of Breath, Tachypneic, Using Accessory Muscles, Wheezes, - - On BiPAP at the time of examination. Conversational dyspnea Cardiovascular: Normal S1, Normal S2, No murmurs, Tachycardic Abdomen: Bowel Sounds Present, Soft, Non Tender Extremities: No edema, Capillary Refill Less than 3 Seconds Skin: - - Hyperemia of bilateral hands. Musculoskeletal: No Tenderness to Palpation of Joints or Extremities Neurological: Cranial nerves II-XII grossly intact Psych/Mental Status: Normal Affect, Appropriate Laboratory Results 05/27/19 23:40: WBC 10.1, RBC 4.42 L, Hgb 13.5, Hct 43.3, MCV 98.0 H, MCH 30.5, MCHC 31.2 L, RDW Std Deviation 40.6, RDW Coeff of Earline 11.1 L, Plt Count 203, MPV 9.1, Immature Gran % (Auto) 1.400 H, Neut % (Auto) 45.4 L, Lymph % (Auto) 38.2, [place] % (Auto) 11.4 H, Eos % (Auto) 2.6, Baso % (Auto) 1.0, Absolute Neuts (auto) 4.6, Absolute Lymphs (auto) 3.87, Nucleated RBC % 0 05/27/19 23:40: Sodium 128 L, Potassium 4.4, Chloride 89 L, Carbon Dioxide 34.0 H, Anion Gap 5, BUN 14, Creatinine 0.64 L, Estim Creat Clear Calc 56.95, Est GFR (MDRD) Af Amer 154, Est GFR (MDRD) Non-Af 127, BUN/Creatinine Ratio 21.8 H, Glucose 251 H, Calcium 9.0, Troponin I 0.020 05/27/19 23:40: B-Natriuretic Peptide 90.1 05/27/19 23:40: PT 13.3, INR 1.0, APTT 30.3 05/27/19 23:40: Lactic Acid 1.2 05/28/19 00:33: Specimen Type ART, Sample Site R Radial, pH 7.07 L*, Bicarbonate Actual 36.6 H, POC Total CO2 40, Base Excess 6 H, O2 Saturation 97, O2 % 80, ABG pCO2 127.1 H*, ABG pO2 132 H, Mo Test POS, Respiration Rate 12, O2 Delivery Device Bi / C PAP, EPAP 6, IPAP 14, Blood Gas Notified Whom ED , Blood Gas Notified Time 40 Assessment/Plan All Active Problems (Last Reviewed 05/28/19 @ 02:11 by Jacobo Unger MD) COPD exacerbation (Acute) Dyspnea (Acute) Acute exacerbation of chronic obstructive pulmonary disease (COPD) (Resolved) Acute on chronic diastolic (congestive) heart failure (Resolved) Acute respiratory failure with hypoxia and hypercapnia (Resolved) Bilateral pneumonia (Resolved) CAP (community acquired pneumonia) (Resolved) Dehydration (Resolved) Drug rash (Resolved) Hyperglycemia (Resolved) Hyponatremia (Resolved) Hypotension (Resolved) Pulmonary congestion (Resolved) Severe sepsis (Resolved) The patient is a 83 year old M with a significant history of lung cancer; permanent pacemaker; essential hypertension; diastolic heart failure; COPD with 4 L nasal cannula home oxygen [id number] who presented to emergency department with sudden shortness of breath; hypoxia; wheezing; severely elevated PCO2 and low pH consistent with probable acute exacerbation of COPD. Acute hypercapnic respiratory failure secondary to acute exacerbation of COPD CXR showed chronic interstitial lung disease without significant change since previous study. Chest x-ray was independently reviewed and agree with radiologist interpretation. Discussed with emergency department doctor to get CTA of the chest due to reported sudden shortness of breath. Get rapid influenza screen. EKG independently reviewed confirms paced rhythm with PVCs. Scheduled DuoNeb Albuterol as needed Received Solu-Medrol 125 mg at the emergency department. Solu-Medrol continued Patient is allergic to penicillins. Noted to have bandemia. Will start patient on Levaquin. Started on BiPAP in the emergency department BiPAP continued. Keep patient n.p.o. and hold all home p.o. medication while on diuretics. Placed in intensive care unit. Soiled [employer] consult. On home inhaled ICS?LABA. Inhaled corticosteroid continued. Monitor BMP and CBC Hyponatremia Likely secondary to insensible loss from increase respiratory work. Hold home Lasix. Gentle IV hydration. Trend BMP. Hyperglycemia On presentation his blood glucose was 251. Will start patient on correction scale insulin. Hemoglobin A1c ordered. Hypertension On presentation his blood pressure was stable in regard to his age. Home blood pressure medications held since patient is n.p.o. secondary to being placed on BiPAP. PRN hydralazine ordered. Trend blood pressure. DVT Subcutaneous Lovenox ordered Code Visit Inpatient E&M: 30670 Init Hosp L3
--- NOTE | 2019-05-28 01:08 | CT_ITS ---
STUDY: CTA CHEST REASON FOR EXAM: Male, 83 years old. SOB, ON BIPAP, HX COPD, EMPHYEMA, LUNG CA WIT RADIATION, PACER, CAD, HTN RADIATION DOSAGE (If Supplied By Facility): CTDIvol = ( 11.91 ) mGy, DLP = ( 539.91 ) mGycm TECHNIQUE: The examination was performed with the intravenous administration of IV 75mL [id number]-370 75ML. Post-processing of the angiographic images was performed, with multiplanar reformation and 3D reconstruction. Individualized dose optimization techniques were used for this CT. COMPARISON: 10/29/2018 FINDINGS: Normal enhancement of the main pulmonary artery and right and left pulmonary arteries. Normal enhancement of the bilateral peripheral pulmonary arteries. There is no demonstrated pulmonary embolism. Normal thoracic aorta and visualized great vessels. There is no demonstrated aortic dissection. Normal heart and pericardium. Normal mediastinum. Normal hilar regions. Normal visualized trachea and bronchi. The lungs are hyper expanded, with flattening of the hemidiaphragms. Diffuse centrilobular emphysema is noted in both lungs more prominent in the upper lobes. Diffuse groundglass opacities are seen in the right and left lung bases may represent pulmonary edema or bilateral pneumonia. There is irregular mass in the right lower lobe measures approximately 6.2 x 5.6 cm most likely represent a neoplasm. Small bilateral pleural effusions. Healing fractures of right eighth and ninth ribs. Old compression fractures of T6, T9, T10, T12, L1, L2. Normal visualized upper abdomen. CT/CTA Chest W/WO Contrast IMPRESSION: No demonstrated pulmonary embolism or arterial dissection. Possible pulmonary edema or bilateral pneumonia. Small bilateral pleural effusions. There is irregular mass in the right lower lobe measures approximately 6.2 x 5.6 cm most likely represent a neoplasm. Electronically Signed: Swetha Tracy, at 2:13 EDT Tel , Service support ,
--- NOTE | 2019-05-28 01:38 | CPS ---
pt transported to cat scan and to icu on bipap. pt tolerated well.
--- NOTE | 2019-05-28 02:10 | CPS ---
Critical values on ABG of PCO2 79.[address] Unger. Repeat ABGs ordered for 6 am.
[2019-05-28 02:11] LABS: Allen Test POS; Base Excess 5 mmol/L (-2 to +2); Bicarbonate 32.5 mmol/L (22-26); Blood Gas Specimen Type ART; EPAP 6; FI02 70; IPAP 20; PO2 100 mmHG (75-100); RR 12; SITE L Radial; SO2 96 % (95-99); Time Given 156; Total Carbon Dioxide 35 mmol/L; pCO2 79.4 mmHg (35-45); pH 7.22 (7.35-7.45)
[2019-05-28 02:11] LABS: Bedside Glucose 244 mg/dL (70-110)
--- NOTE | 2019-05-28 02:20 | CPS ---
DECREASED FIO2 TO 60%
[2019-05-28] MEDS: 0.9% Normal Saline 1,000 ML 75 ML IV (02:24)
[2019-05-28] MEDS: levoFLOXacin IV 750 MG/150 ML BAG 100 MG IV (02:25)
[2019-05-28] MEDS: Ipratropium/Albuterol Sulfate 3 ML AMPUL.NEB INHALATION ×4 (02:30→14:05)
[2019-05-28] MEDS: 0.9% Normal Saline 1,000 ML 999 ML IV ×3 (03:22→05:38)
[2019-05-28 03:33] LABS: Absolute Lymphocyte Count 0.25 X10^3/uL (0.83-4.51); Absolute Neutrophil Count 8.6 X10^3/uL (2.0-7.7); Basophil# 0.02 X10^3/uL; Basophil% 0.2 % (0-1); Lymphocyte # 0.25 X10^3/ul (4.0); Lymphocyte % 2.6 % (19-41); Mean Corp Hgb Conc 30.8 g/dL (32-36); Mean Corpuscular Hgb 30.2 pg (27.0-32.0); Mean Corpuscular Volume 98.2 fL (80-94); Mean Platelet Vol. 9.1 fl (6.2-12.0); Monocyte# 0.58 X10^3/uL; Monocyte% 6.1 % (0-10); NRBC Flagged by Analyzer 0 % (0-5); Neutrophil # 8.63 X10^3/uL (2.7-7.7); Neutrophil % 90.8 % (47-70); POSITIVE DIFFERENTIAL YES; Platelet Count 159 K/mm3 (150-450); RBC Distribution Width CV 11.2 % (11.6-14.6); RBC Distribution Width SD 41.1 fl (35.1-43.9); Red Blood Count 3.97 M/mm3 (4.6-6.2); White Blood Count 9.5 K/mm3 (4.4-11.0)
[2019-05-28 03:39] LABS: Differential Indicated SCAN CRITERIA MET
[2019-05-28 03:41] LABS: Anion Gap 4 (5-15); BUN 16 mg/dL (7-18); BUN/Creat Ratio 17.8 RATIO (10-20); Calcium,Total 8.4 mg/dL (8.5-10.1); Chloride 90 mmol/L (98-107); EST Glomerular Filtration Rate 86 mL/min (>60); Est Glom Filt Rate - Afr Amer 104 mL/min (>60); Glucose 225 mg/dL (74-106); Potassium 4.6 mmol/L (3.5-5.1); Sodium Level 129 mmol/L (136-145)
--- NOTE | 2019-05-28 03:43 | SEPSISNOTE ---
Sepsis Note - Physical Exam/Vitals Subjective: Patient reports feeling better. Objective: Chest X-Ray 05/27/19 23:38 IMPRESSION: Chronic interstitial lung disease without significant change since the previous study. Electronically Signed: Swetha Tracy, at 0:34 EDT Tel , Service support , Chest CTA 05/28/19 01:08 IMPRESSION: No demonstrated pulmonary embolism or arterial dissection. Possible pulmonary edema or bilateral pneumonia. Small bilateral pleural effusions. There is irregular mass in the right lower lobe measures approximately 6.2 x 5.6 cm most likely represent a neoplasm. Electronically Signed: Posada Demarcus, at 2:13 EDT Tel , Service support , Temp Pulse Resp BP Pulse Ox 97.4 F L 96 22 H 92/54 L 97 05/28/19 01:47 05/28/19 03:39 05/28/19 03:30 05/28/19 03:30 05/28/19 03:30 05/28/19 05/28/19 05/28/19 03:15 03:15 03:15 WBC 9.5 RBC 3.97 L Hgb 12.0 L Hct 39.0 L MCV 98.2 H MCH 30.2 MCHC 30.8 L RDW Std Deviation 41.1 RDW Coeff of Earline 11.2 L Plt Count 159 MPV 9.1 Immature Gran % (Auto) 0.300 Neut % (Auto) 90.8 H Lymph % (Auto) 2.6 L [place] % (Auto) 6.1 Eos % (Auto) 0.0 Baso % (Auto) 0.2 Absolute Neuts (auto) 8.6 H Absolute Lymphs (auto) 0.25 L Nucleated RBC % 0 PT INR APTT Specimen Type Sample Site pH Bicarbonate Actual POC Total CO2 Base Excess O2 Saturation O2 % ABG pCO2 ABG pO2 Mo Test Respiration Rate O2 Delivery Device EPAP IPAP Blood Gas Notified Whom Blood Gas Notified Time Sodium 129 L Potassium 4.6 Chloride 90 L Carbon Dioxide 35.0 H Anion Gap 4 L BUN 16 Creatinine 0.90 Estim Creat Clear Calc 57.10 Est GFR (MDRD) Af Amer 104 Est GFR (MDRD) Non-Af 86 BUN/Creatinine Ratio 17.8 Glucose 225 H Hemoglobin A1c Lactic Acid Pending Calcium 8.4 L Troponin I B-Natriuretic Peptide POC Glucose 05/28/19 05/28/19 05/28/19 03:15 02:04 02:03 WBC RBC Hgb Hct MCV MCH MCHC RDW Std Deviation RDW Coeff of Earline Plt Count MPV Immature Gran % (Auto) Neut % (Auto) Lymph % (Auto) [place] % (Auto) Eos % (Auto) Baso % (Auto) Absolute Neuts (auto) Absolute Lymphs (auto) Nucleated RBC % PT INR APTT Specimen Type ART Sample Site L Radial pH 7.22 L Bicarbonate Actual 32.5 H POC Total CO2 35 Base Excess 5 H O2 Saturation 96 O2 % 70 ABG pCO2 79.4 H* ABG pO2 100 Mo Test POS Respiration Rate 12 O2 Delivery Device Bi / C PAP EPAP 6 IPAP 20 Blood Gas Notified Whom HOSP MD Blood Gas Notified Time 156 Sodium Potassium Chloride Carbon Dioxide Anion Gap BUN Creatinine Estim Creat Clear Calc Est GFR (MDRD) Af Amer Est GFR (MDRD) Non-Af BUN/Creatinine Ratio Glucose Hemoglobin A1c Pending Lactic Acid Calcium Troponin I B-Natriuretic Peptide POC Glucose 244 H 05/28/19 05/27/19 05/27/19 00:33 23:40 23:40 WBC RBC Hgb Hct MCV MCH MCHC RDW Std Deviation RDW Coeff of Earline Plt Count MPV Immature Gran % (Auto) Neut % (Auto) Lymph % (Auto) [place] % (Auto) Eos % (Auto) Baso % (Auto) Absolute Neuts (auto) Absolute Lymphs (auto) Nucleated RBC % PT 13.3 INR 1.0 APTT 30.3 Specimen Type ART Sample Site R Radial pH 7.07 L* Bicarbonate Actual 36.6 H POC Total CO2 40 Base Excess 6 H O2 Saturation 97 O2 % 80 ABG pCO2 127.1 H* ABG pO2 132 H Mo Test POS Respiration Rate 12 O2 Delivery Device Bi / C PAP EPAP 6 IPAP 14 Blood Gas Notified Whom Blood Gas Notified Time 40 Sodium Potassium Chloride Carbon Dioxide Anion Gap BUN Creatinine Estim Creat Clear Calc Est GFR (MDRD) Af Amer Est GFR (MDRD) Non-Af BUN/Creatinine Ratio Glucose Hemoglobin A1c Lactic Acid 1.2 Calcium Troponin I B-Natriuretic Peptide POC Glucose 05/27/19 05/27/19 05/27/19 23:40 23:40 23:40 WBC 10.1 RBC 4.42 L Hgb 13.5 Hct 43.3 MCV 98.0 H MCH 30.5 MCHC 31.2 L RDW Std Deviation 40.6 RDW Coeff of Earline 11.1 L Plt Count 203 MPV 9.1 Immature Gran % (Auto) 1.400 H Neut % (Auto) 45.4 L Lymph % (Auto) 38.2 [place] % (Auto) 11.4 H Eos % (Auto) 2.6 Baso % (Auto) 1.0 Absolute Neuts (auto) 4.6 Absolute Lymphs (auto) 3.87 Nucleated RBC % 0 PT INR APTT Specimen Type Sample Site pH Bicarbonate Actual POC Total CO2 Base Excess O2 Saturation O2 % ABG pCO2 ABG pO2 Mo Test Respiration Rate O2 Delivery Device EPAP IPAP Blood Gas Notified Whom Blood Gas Notified Time Sodium 128 L Potassium 4.4 Chloride 89 L Carbon Dioxide 34.0 H Anion Gap 5 BUN 14 Creatinine 0.64 L Estim Creat Clear Calc 56.95 Est GFR (MDRD) Af Amer 154 Est GFR (MDRD) Non-Af 127 BUN/Creatinine Ratio 21.8 H Glucose 251 H Hemoglobin A1c Lactic Acid Calcium 9.0 Troponin I 0.020 B-Natriuretic Peptide 90.1 POC Glucose General: Alert, Oriented x3, Cooperative Lungs: Short of Breath, Tachypneic, Wheezes Cardiovascular: Regular rate, Regular Rhythm, No murmurs Capillary Refill: <3 seconds Peripheral Pulses: Normal Skin Color: [place] - Assessment/Plan Assessment and Plan Severe sepsis with pneumonia and respiratory failure Receive NSS 30ml/kg per sepsis protocol Actually patient reports feeling better. On bipap. No conversational dyspnea at this time. Had conversational dyspnea at the ED. Repeat lactic acid is pending Blood culture x 2 already obtained at ED. Continue Levaquin and aztreonam
[2019-05-28 03:47] LABS: Lactic Acid 1.5 mmol/L (0.4-2.0)
--- NOTE | 2019-05-28 03:50 | CPS ---
DECREASED FIO2 TP 50%
[2019-05-28 04:28] LABS: Bacteria 0 SEEN /hpf (None Seen); Mucous, Urine 0 SEEN /hpf (<or=2+); Red Blood Cells-Urine 0 SEEN /hpf (0-5); Squamous Epithelial Cells - UA 0 SEEN /hpf (0-5); White Blood Cells 0 SEEN /hpf (0-5)
[2019-05-28 04:29] LABS: Color, Urine Yellow (Yellow); Glucose, Dipstick 100 mg/dl (Normal); Ketone-Dipstick Negative (Negative); Leukocyte Esterase-Dipstick Negative /ul (Negative); Nitrite-Dipstick Negative (Negative); Occult Blood-Urine 25 /ul (Negative); Protein-Dipstick 100 mg/dl (Negative); Urine Bilirubin Dipstick Negative (Negative); Urine Clarity Clear (Clear); Urine Urobilinogen Normal (Normal); Urine pH 6.5 (5.0 - 8.0)
--- NOTE | 2019-05-28 05:33 | EKG12_ITS ---
Test Reason : EKG CHANGE Blood Pressure : / mmHG Vent. Rate : 088 BPM Atrial Rate : 088 BPM P-R Int : 118 ms QRS Dur : 144 ms QT Int : 426 ms P-R-T Axes : 056 270 099 degrees QTc Int : 515 ms Sinus rhythm with Premature supraventricular complexes Non-specific intra-ventricular conduction block Cannot exclude limb lead misplacement Consider repeat EKG Abnormal ECG Confirmed by KAREN SOTO, MARI ([id number]), medical editor VON TY ([id number]) on 06/04/2019 10:15:11 AM Referred By: SKINNY Confirmed By:MARI JONES MD
[2019-05-28] MEDS: Insulin Lispro 100 UNIT/ML INSULN.PEN SC ×3 (05:38→17:25)
[2019-05-28 05:46] LABS: Bedside Glucose 189 mg/dL (70-110)
[2019-05-28 05:54] LABS: Hemoglobin A1c 5.5 % (4.2-6.3)
[2019-05-28 05:55] LABS: M R Staph aureus DNA By PCR Negative (Negative); Probe Check PASS; Specimen Processing Control PASS
[2019-05-28 06:10] LABS: Allen Test POS; Base Excess 3 mmol/L (-2 to +2); Bicarbonate 29.2 mmol/L (22-26); Blood Gas Specimen Type ART; EPAP 6; FI02 50; IPAP 20; PO2 80 mmHG (75-100); RR 12; SITE L Radial; SO2 94 % (95-99); Time Given 555; Total Carbon Dioxide 31 mmol/L; pCO2 60.8 mmHg (35-45); pH 7.29 (7.35-7.45)
--- NOTE | 2019-05-28 06:31 | PCM.CON.CC ---
Reason for Consult Date of Consultation: 05/28/19 Reason for Consultation: COPD exacerbation History of Present Illness: The patient is an 83-year-old male, with a history as outlined below, who presented to the emergency department on May 27 with complaints of shortness of breath. The patient does have a history of aortic valve stenosis, paroxysmal atrial flutter, heart failure with preserved ejection fraction, chronic hypoxemic respiratory failure, COPD, history of non-small cell lung cancer and hypertension. On presentation to the emergency department, the patient was noted to be hypoxemic, but was afebrile and actually hypertensive. Laboratory evaluation revealed no evidence of a leukocytosis. Coagulation profile was within normal limits. Chemistry profile was notable for a sodium of 128, chloride of 89, bicarbonate of 34 and creatinine of 0.64. Lactate was normal at 1.2. Troponin and BNP were unremarkable. A CTA chest was subsequently obtained which revealed no evidence for pulmonary embolism. There was, nonetheless, evidence of severe bilateral emphysema along with diffuse bilateral groundglass changes and an irregularly-shaped right lower lobe lung density. Arterial blood gas obtained on BiPAP with a pressure support of 14/6 centimeters of water revealed a pH of 7.07 with a corresponding PCO2 of 127 and PO2 of 132. The patient was subsequently placed on broad-spectrum antimicrobials and transferred to the medical intensive care unit for further management. The patient was admitted to the hospital for 1 week in October 2018 in the setting of acute respiratory failure due to a COPD exacerbation secondary to community-acquired pneumonia. Following the patient's hospital admission, he did follow-up with our nurse practitioner in November 2018, at which time, the patient was noted to be following up with a provider at the [facility] and was scheduled to have repeat chest imaging performed. He was supposed to follow-up with us in the pulmonary medicine clinic, but failed to do so. I did previously see the patient in the pulmonary medicine clinic in June 2017. At that time, the patient had a baseline 3-4 L/min supplemental oxygen requirement. The patient has a smoking history that includes 1 pack of cigarettes daily times 5 years, which was then followed by cigar consumption of 30 cigars weekly from 1962 through 2008. The patient has been on supplemental oxygen since January 2017. He has a history of non-small cell lung cancer, diagnosed through the [facility], for which he underwent radiation treatment. He is currently prescribed Anoro on an outpatient basis. The patient does report that he continues to follow with Dr. Li at the [facility] and was last seen by him within the last week. He apparently had repeat pulmonary function studies completed. He did report to me that the right lower lobe density is known to the [facility] and they apparently are not concerned for cancer recurrence. OUTSIDE MEDICAL RECORDS FROM [facility]: (Obtained during October Hospital Admission) Pulmonary medicine office visit on August 29, [address] Li: Reports that patient is using Anoro daily. Also reported worsening dysphagia with concern that patient may need to be seen again by GI for potential EGD and dilation. The patient does have a history of lung cancer of the right lower lobe ([id number]), s/p SBRT completed 10/19/2015. Follow-up PET scan from June 2017 revealed resolution of the right lower lobe mass. CT chest from June 2018 revealed no evidence of recurrence. CT chest without contrast dated June 2018 revealed significant bilateral emphysema, stable calcified biapical scarring, most pronounced in the right apex. There was demonstration of an ill-defined region of consolidation in the right lung base with radiating bands of scar/fibrosis and associated volume loss, consistent with post radiation fibrosis. There was a stable appearing 5 mm nodule in the left lower lobe. A follow-up office visit with Dr. Li occurred on May 17, 2019 The patient was documented to be having episodes of choking when drinking water. The patient was documented to have severe COPD. 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 A CT chest was just completed through the [facility] on May 16, which demonstrated no signs of cancer recurrence. 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) 06/11/17 Chronic respiratory failure (Chronic) COPD (chronic obstructive pulmonary disease) (Chronic) Conduction disorder of the heart (Chronic) Aortic valve disorder (Chronic) Pulmonary hypertension (Chronic) GERD (gastroesophageal reflux disease) (Chronic) Bullous emphysema (Chronic) Medical History: Medical History (Last Reviewed 05/28/19 @ 02:11 by Jacobo Unger MD) Paroxysmal atrial flutter (Chronic) I48.92 Non-rheumatic tricuspid valve insufficiency (Chronic) I36.1 Diastolic dysfunction (Chronic) I51.9 Aortic valve stenosis, nonrheumatic (Chronic) I35.0 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) I44.1 Chronic respiratory failure (Chronic) J96.10 Dyspnea (Acute) R06.00 COPD (chronic obstructive pulmonary disease) (Chronic) J44.9 Chest pain (Inactive) R07.9 Conduction disorder of the heart (Chronic) I45.9 Aortic valve disorder (Chronic) I35.9 Pulmonary hypertension (Chronic) I27.20 GERD (gastroesophageal reflux disease) (Chronic) K21.9 Bullous emphysema (Chronic) J43.9 Lung nodule, solitary (Inactive) R91.1 Lung cancer (Inactive) C34.90 Anxiety F41.9 Hemoptysis R04.2 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 Chronic hypoxemic respiratory failure J96.11 Colon polyps FH: cardiovascular disease Z82.49 Family history of diabetes mellitus (DM) Z83.3 Acute exacerbation of chronic obstructive pulmonary disease (COPD) (Resolved) J44.1 Acute on chronic diastolic (congestive) heart failure (Resolved) I50.33 CAP (community acquired pneumonia) (Resolved) J18.9 failed OP therapy with Amoxicillin Dehydration (Resolved) E86.0 Drug rash (Resolved) L27.0 Hyperglycemia (Resolved) R73.9 Hyponatremia (Resolved) E87.1 Pulmonary congestion (Resolved) R09.89 Allergies ampicillin Allergy (Verified 05/27/19 23:41) Anaphylaxis codeine Allergy (Verified 05/27/19 23:41) Rash penicillin G Allergy (Verified 05/27/19 23:41) Rash Sulfa (Sulfonamide Antibiotics) Allergy (Verified 05/27/19 23:41) Rash Home Medications: Ambulatory Orders Medication Instructions Recorded Cholecalciferol (VIT D3) [Vitamin 1,000 unit PO DAILY 06/25/16 D3] Polyethylene Glycol 3350 [Miralax] 17 gm PO DAILY PRN PRN 09/27/16 Acetaminophen [Tylenol Tablet] 650 mg PO Q6H PRN PRN #0 tab 03/21/17 Amlodipine [Norvasc] 5 mg PO DAILY #30 tab 06/12/17 Losartan Potassium 25 mg PO DAILY #0 06/12/17 umeclidinium 62.5 mcg-vilanterol 1 inh INHALATION Q24H 08/16/17 25 mcg/actuation powdr for inhalation Albuterol IH (ProAir) [Proair Hfa] 2 puff INHALATION Q4H PRN PRN #0 11/01/18 Furosemide [Lasix] 40 mg PO DAILY #30 tab 11/01/18 Ipratropium/Albuterol Sulfate 3 ml INHALATION Q4H PRN PRN #30 11/01/18 [Duoneb] ampul.neb Surgical History: Surgical History (Last Reviewed 05/28/19 @ 02:11 by Jacobo Unger MD) History of permanent cardiac pacemaker placement (Chronic) Z95.0 06/11/17 History of appendectomy Z98.890, Z90.49 Hx of cataract surgery Z98.49 Surgical History: appendectomy, cataract Psychiatric History: No pertinent psych hx Lives: Spouse/ Significant Other Smoking Status: Former smoker Tobacco Use: Cigarettes, Cigars - *Family History Paternal Family History: Family History (Last Reviewed 05/28/19 @ 01:56 by Jacobo Unger MD) Brother Diabetes Sister Diabetes Lung cancer History Items: No pertinent history Offspring Family History: Family History (Last Reviewed 05/28/19 @ 01:56 by Jacobo Unger MD) Brother Diabetes Sister Diabetes Lung cancer History Items: COPD Sibling Family History: Family History (Last Reviewed 05/28/19 @ 01:56 by Jacobo Unger MD) Brother Diabetes Sister Diabetes Lung cancer History Items: COPD, Diabetes, Heart Disease Maternal Family History: Family History (Last Reviewed 05/28/19 @ 01:56 by Jacobo Unger MD) Brother Diabetes Sister Diabetes Lung cancer History Items: Heart Disease, - - osteoporosis Review of Systems Constitutional: Denies: Chills, Fever Eyes: Denies: Blurred vision, Double vision HEENT: Denies: Head Aches, Sinus Congestion, Sinus Drainage Cardiovascular: Denies: Chest Pain, Palpitations Respiratory: Reports: Cough, Shortness of Breath, Sputum production Gastrointestinal: Denies: Abdominal Pain, Nausea, Vomiting Genitourinary: Denies: Dysuria Musculoskeletal: Denies: Joint Pain, Joint Tenderness Skin: Denies: Rash, Wounds Neurological: Denies: Numbness, Tingling, Focal weakness Psychiatric: Denies: Anxiety, Depression, Homicidal Ideations, Suicidal Ideations Hematologic/ Lymphatic: Denies: Easy Bruising, Easy Bleeding Patient Problems: Active and Suspected Problems (Last Reviewed 05/28/19 @ 02:11 by Jacobo Unger MD) Severe sepsis (Acute) Sepsis (Acute) COPD exacerbation (Acute) Objective: The patient's most recent lab work, culture data and imaging studies have all been personally reviewed. Surface echocardiogram from October 2018 revealed normal LV size with mild segmental systolic dysfunction and an ejection fraction of 45%. Right ventricular systolic pressure was estimated to be 78 mmHg. There was moderate to severe aortic valve stenosis. - Physical Exam Vitals/I&O's: Vital Signs Temp Pulse Resp BP Pulse Ox 98.0 F 78 22 H 95/48 L 97 05/28/19 05:00 05/28/19 05:00 05/28/19 05:00 05/28/19 05:00 05/28/19 05:00 Oxygen Flow Rate (L/min) 15 Oxygen Delivery Method Bi-pap Weight: 150 lb 12.739 oz Body Mass Index (BMI) 24.3 Intake and Output for Last 24 Hours 05/26/19 05/27/19 05/28/19 23:59 23:59 23:59 Intake Total 2608.7 / 2608.7 Output Total 500 / 500 Balance 2108.7 / 2108.7 General: Alert, Cooperative, - - BiPAP mask currently in place HEENT: Atraumatic, PERRLA, Normocephalic Oral: No Gingival or Mucosal Lesions/ Ulcerations Neck: Supple, No Nodes, Trachea Midline Lungs: - - Globally diminished air movement throughout all lung tran without appreciable wheezes, rales or rhonchi. Cardiovascular: Regular rate, Regular Rhythm, Normal S1, Normal S2, Murmur - Systolic ejection murmur. Paced rhythm on telemetry Abdomen: Bowel Sounds Present, Soft, Non Tender, Distended Extremities: No clubbing, No cyanosis, Edema Skin: No breakdown Musculoskeletal: No Muscle Wasting Lymphatic: No Cervical, Supraclavicular, or Inguinal Adenopathy Neurological: Neuro grossly intact Psych/Mental Status: Normal Affect, Appropriate Microbiology Past 72 Hours 05/28/19 02:15 Mucosa - Nose Influenza Types A,B Direct FA (STEVE) - Final Laboratory Results 05/27/19 23:40: WBC 10.1, RBC 4.42 L, Hgb 13.5, Hct 43.3, MCV 98.0 H, MCH 30.5, MCHC 31.2 L, RDW Std Deviation 40.6, RDW Coeff of Earline 11.1 L, Plt Count 203, MPV 9.1, Immature Gran % (Auto) 1.400 H, Neut % (Auto) 45.4 L, Lymph % (Auto) 38.2, [place] % (Auto) 11.4 H, Eos % (Auto) 2.6, Baso % (Auto) 1.0, Absolute Neuts (auto) 4.6, Absolute Lymphs (auto) 3.87, Nucleated RBC % 0 05/27/19 23:40: Sodium 128 L, Potassium 4.4, Chloride 89 L, Carbon Dioxide 34.0 H, Anion Gap 5, BUN 14, Creatinine 0.64 L, Estim Creat Clear Calc 56.95, Est GFR (MDRD) Af Amer 154, Est GFR (MDRD) Non-Af 127, BUN/Creatinine Ratio 21.8 H, Glucose 251 H, Calcium 9.0, Troponin I 0.020 05/27/19 23:40: B-Natriuretic Peptide 90.1 05/27/19 23:40: PT 13.3, INR 1.0, APTT 30.3 05/27/19 23:40: Lactic Acid 1.2 05/28/19 00:33: Specimen Type ART, Sample Site R Radial, pH 7.07 L*, Bicarbonate Actual 36.6 H, POC Total CO2 40, Base Excess 6 H, O2 Saturation 97, O2 % 80, ABG pCO2 127.1 H*, ABG pO2 132 H, Mo Test POS, Respiration Rate 12, O2 Delivery Device Bi / C PAP, EPAP 6, IPAP 14, Blood Gas Notified Whom ED , Blood Gas Notified Time 40 05/28/19 02:03: Specimen Type ART, Sample Site L Radial, pH 7.22 L, Bicarbonate Actual 32.5 H, POC Total CO2 35, Base Excess 5 H, O2 Saturation 96, O2 % 70, ABG pCO2 79.4 H*, ABG pO2 100, Mo Test POS, Respiration Rate 12, O2 Delivery Device Bi / C PAP, EPAP 6, IPAP 20, Blood Gas Notified Whom MATHEW SOTO, Blood Gas Notified Time 156 05/28/19 02:04: POC Glucose 244 H 05/28/19 03:15: Hemoglobin A1c 5.5 05/28/19 03:15: WBC 9.5, RBC 3.97 L, Hgb 12.0 L, Hct 39.0 L, MCV 98.2 H, MCH 30.2, MCHC 30.8 L, RDW Std Deviation 41.1, RDW Coeff of Earline 11.2 L, Plt Count 159, MPV 9.1, Immature Gran % (Auto) 0.300, Neut % (Auto) 90.8 H, Lymph % (Auto) 2.6 L, C[place]ay % (Auto) 6.1, Eos % (Auto) 0.0, Baso % (Auto) 0.2, Absolute Neuts (auto) 8.6 H, Absolute Lymphs (auto) 0.25 L, Nucleated RBC % 0 05/28/19 03:15: Sodium 129 L, Potassium 4.6, Chloride 90 L, Carbon Dioxide 35.0 H, Anion Gap 4 L, BUN 16, Creatinine 0.90, Estim Creat Clear Calc 57.10, Est GFR (MDRD) Af Amer 104, Est GFR (MDRD) Non-Af 86, BUN/Creatinine Ratio 17.8, Glucose 225 H, Calcium 8.4 L 05/28/19 03:15: Lactic Acid 1.5 05/28/19 04:00: MRSA (PCR) Negative 05/28/19 04:15: Urine Color Yellow, Urine Clarity Clear, Urine pH 6.5, Ur Specific [place] 1.020, Urine Protein 100 H, Urine Glucose (UA) 100 H, Urine Ketones Negative, Urine Occult Blood 25 H, Urine Nitrite Negative, Urine Bilirubin Negative, Urine Urobilinogen Normal, Ur Leukocyte Esterase Negative, Urine RBC 0 SEEN, Urine WBC 0 SEEN, Ur Squamous Epith Cells 0 SEEN, Urine Bacteria 0 SEEN, Urine Mucus 0 SEEN 05/28/19 05:37: POC Glucose 189 H 05/28/19 06:03: Specimen Type ART, Sample Site L Radial, pH 7.29 L, Bicarbonate Actual 29.2 H, POC Total CO2 31, Base Excess 3 H, O2 Saturation 94 L, O2 % 50, ABG pCO2 60.8 H, ABG pO2 80, Mo Test POS, Respiration Rate 12, O2 Delivery Device Bi / C PAP, EPAP 6, IPAP 20, Blood Gas Notified Whom HOSP , Blood Gas Notified Time 555 Labs (Last 48 Hours) 05/27/19 05/27/19 05/27/19 23:40 23:40 23:40 WBC 10.1 RBC 4.42 L Hgb 13.5 Hct 43.3 MCV 98.0 H MCH 30.5 MCHC 31.2 L RDW Std Deviation 40.6 RDW Coeff of Earline 11.1 L Plt Count 203 MPV 9.1 Immature Gran % (Auto) 1.400 H Neut % (Auto) 45.4 L Lymph % (Auto) 38.2 Calloway % (Auto) 11.4 H Eos % (Auto) 2.6 Baso % (Auto) 1.0 Absolute Neuts (auto) 4.6 Absolute Lymphs (auto) 3.87 Nucleated RBC % 0 PT INR APTT Specimen Type Sample Site pH Bicarbonate Actual POC Total CO2 Base Excess O2 Saturation O2 % ABG pCO2 ABG pO2 Mo Test Respiration Rate O2 Delivery Device EPAP IPAP Blood Gas Notified Whom Blood Gas Notified Time Sodium 128 L Potassium 4.4 Chloride 89 L Carbon Dioxide 34.0 H Anion Gap 5 BUN 14 Creatinine 0.64 L Estim Creat Clear Calc 56.95 Est GFR (MDRD) Af Amer 154 Est GFR (MDRD) Non-Af 127 BUN/Creatinine Ratio 21.8 H Glucose 251 H Hemoglobin A1c Lactic Acid Calcium 9.0 Troponin I 0.020 B-Natriuretic Peptide 90.1 Urine Color Urine Clarity Urine pH Ur Specific [place] Urine Protein Urine Glucose (UA) Urine Ketones Urine Occult Blood Urine Nitrite Urine Bilirubin Urine Urobilinogen Ur Leukocyte Esterase Urine RBC Urine WBC Ur Squamous Epith Cells Urine Bacteria Urine Mucus MRSA (PCR) POC Glucose 05/27/19 05/27/19 05/28/19 23:40 23:40 00:33 WBC RBC Hgb Hct MCV MCH MCHC RDW Std Deviation RDW Coeff of Earline Plt Count MPV Immature Gran % (Auto) Neut % (Auto) Lymph % (Auto) C[place] % (Auto) Eos % (Auto) Baso % (Auto) Absolute Neuts (auto) Absolute Lymphs (auto) Nucleated RBC % PT 13.3 INR 1.0 APTT 30.3 Specimen Type ART Sample Site R Radial pH 7.07 L* Bicarbonate Actual 36.6 H POC Total CO2 40 Base Excess 6 H O2 Saturation 97 O2 % 80 ABG pCO2 127.1 H* ABG pO2 132 H Mo Test POS Respiration Rate 12 O2 Delivery Device Bi / C PAP EPAP 6 IPAP 14 Blood Gas Notified Whom Blood Gas Notified Time 40 Sodium Potassium Chloride Carbon Dioxide Anion Gap BUN Creatinine Estim Creat Clear Calc Est GFR (MDRD) Af Amer Est GFR (MDRD) Non-Af BUN/Creatinine Ratio Glucose Hemoglobin A1c Lactic Acid 1.2 Calcium Troponin I B-Natriuretic Peptide Urine Color Urine Clarity Urine pH Ur Specific [place] Urine Protein Urine Glucose (UA) Urine Ketones Urine Occult Blood Urine Nitrite Urine Bilirubin Urine Urobilinogen Ur Leukocyte Esterase Urine RBC Urine WBC Ur Squamous Epith Cells Urine Bacteria Urine Mucus MRSA (PCR) POC Glucose 05/28/19 05/28/19 05/28/19 02:03 02:04 03:15 WBC RBC Hgb Hct MCV MCH MCHC RDW Std Deviation RDW Coeff of Earline Plt Count MPV Immature Gran % (Auto) Neut % (Auto) Lymph % (Auto) [place] % (Auto) Eos % (Auto) Baso % (Auto) Absolute Neuts (auto) Absolute Lymphs (auto) Nucleated RBC % PT INR APTT Specimen Type ART Sample Site L Radial pH 7.22 L Bicarbonate Actual 32.5 H POC Total CO2 35 Base Excess 5 H O2 Saturation 96 O2 % 70 ABG pCO2 79.4 H* ABG pO2 100 Mo Test POS Respiration Rate 12 O2 Delivery Device Bi / C PAP EPAP 6 IPAP 20 Blood Gas Notified Whom [facility] Blood Gas Notified Time 156 Sodium Potassium Chloride Carbon Dioxide Anion Gap BUN Creatinine Estim Creat Clear Calc Est GFR (MDRD) Af Amer Est GFR (MDRD) Non-Af BUN/Creatinine Ratio Glucose Hemoglobin A1c 5.5 Lactic Acid Calcium Troponin I B-Natriuretic Peptide Urine Color Urine Clarity Urine pH Ur Specific [place] Urine Protein Urine Glucose (UA) Urine Ketones Urine Occult Blood Urine Nitrite Urine Bilirubin Urine Urobilinogen Ur Leukocyte Esterase Urine RBC Urine WBC Ur Squamous Epith Cells Urine Bacteria Urine Mucus MRSA (PCR) POC Glucose 244 H 05/28/19 05/28/19 05/28/19 03:15 03:15 03:15 WBC 9.5 RBC 3.97 L Hgb 12.0 L Hct 39.0 L MCV 98.2 H MCH 30.2 MCHC 30.8 L RDW Std Deviation 41.1 RDW Coeff of Earline 11.2 L Plt Count 159 MPV 9.1 Immature Gran % (Auto) 0.300 Neut % (Auto) 90.8 H Lymph % (Auto) 2.6 L [place] % (Auto) 6.1 Eos % (Auto) 0.0 Baso % (Auto) 0.2 Absolute Neuts (auto) 8.6 H Absolute Lymphs (auto) 0.25 L Nucleated RBC % 0 PT INR APTT Specimen Type Sample Site pH Bicarbonate Actual POC Total CO2 Base Excess O2 Saturation O2 % ABG pCO2 ABG pO2 Mo Test Respiration Rate O2 Delivery Device EPAP IPAP Blood Gas Notified Whom Blood Gas Notified Time Sodium 129 L Potassium 4.6 Chloride 90 L Carbon Dioxide 35.0 H Anion Gap 4 L BUN 16 Creatinine 0.90 Estim Creat Clear Calc 57.10 Est GFR (MDRD) Af Amer 104 Est GFR (MDRD) Non-Af 86 BUN/Creatinine Ratio 17.8 Glucose 225 H Hemoglobin A1c Lactic Acid 1.5 Calcium 8.4 L Troponin I B-Natriuretic Peptide Urine Color Urine Clarity Urine pH Ur Specific [place] Urine Protein Urine Glucose (UA) Urine Ketones Urine Occult Blood Urine Nitrite Urine Bilirubin Urine Urobilinogen Ur Leukocyte Esterase Urine RBC Urine WBC Ur Squamous Epith Cells Urine Bacteria Urine Mucus MRSA (PCR) POC Glucose 05/28/19 05/28/19 05/28/19 04:00 04:15 05:37 WBC RBC Hgb Hct MCV MCH MCHC RDW Std Deviation RDW Coeff of Earline Plt Count MPV Immature Gran % (Auto) Neut % (Auto) Lymph % (Auto) [place] % (Auto) Eos % (Auto) Baso % (Auto) Absolute Neuts (auto) Absolute Lymphs (auto) Nucleated RBC % PT INR APTT Specimen Type Sample Site pH Bicarbonate Actual POC Total CO2 Base Excess O2 Saturation O2 % ABG pCO2 ABG pO2 Mo Test Respiration Rate O2 Delivery Device EPAP IPAP Blood Gas Notified Whom Blood Gas Notified Time Sodium Potassium Chloride Carbon Dioxide Anion Gap BUN Creatinine Estim Creat Clear Calc Est GFR (MDRD) Af Amer Est GFR (MDRD) Non-Af BUN/Creatinine Ratio Glucose Hemoglobin A1c Lactic Acid Calcium Troponin I B-Natriuretic Peptide Urine Color Yellow Urine Clarity Clear Urine pH 6.5 Ur Specific [place] 1.020 Urine Protein 100 H Urine Glucose (UA) 100 H Urine Ketones Negative Urine Occult Blood 25 H Urine Nitrite Negative Urine Bilirubin Negative Urine Urobilinogen Normal Ur Leukocyte Esterase Negative Urine RBC 0 SEEN Urine WBC 0 SEEN Ur Squamous Epith Cells 0 SEEN Urine Bacteria 0 SEEN Urine Mucus 0 SEEN MRSA (PCR) Negative POC Glucose 189 H 05/28/19 06:03 WBC RBC Hgb Hct MCV MCH MCHC RDW Std Deviation RDW Coeff of Earline Plt Count MPV Immature Gran % (Auto) Neut % (Auto) Lymph % (Auto) [place] % (Auto) Eos % (Auto) Baso % (Auto) Absolute Neuts (auto) Absolute Lymphs (auto) Nucleated RBC % PT INR APTT Specimen Type ART Sample Site L Radial pH 7.29 L Bicarbonate Actual 29.2 H POC Total CO2 31 Base Excess 3 H O2 Saturation 94 L O2 % 50 ABG pCO2 60.8 H ABG pO2 80 Mo Test POS Respiration Rate 12 O2 Delivery Device Bi / C PAP EPAP 6 IPAP 20 Blood Gas Notified Whom HOSP Blood Gas Notified Time 555 Sodium Potassium Chloride Carbon Dioxide Anion Gap BUN Creatinine Estim Creat Clear Calc Est GFR (MDRD) Af Amer Est GFR (MDRD) Non-Af BUN/Creatinine Ratio Glucose Hemoglobin A1c Lactic Acid Calcium Troponin I B-Natriuretic Peptide Urine Color Urine Clarity Urine pH Ur Specific [place] Urine Protein Urine Glucose (UA) Urine Ketones Urine Occult Blood Urine Nitrite Urine Bilirubin Urine Urobilinogen Ur Leukocyte Esterase Urine RBC Urine WBC Ur Squamous Epith Cells Urine Bacteria Urine Mucus MRSA (PCR) POC Glucose Microbiology 05/28/19 02:15 Mucosa - Nose Influenza Types A,B Direct FA (STEVE) - Final Clinical Impression(s) from Imaging Studies Chest X-Ray 05/27/19 23:38 IMPRESSION: Chronic interstitial lung disease without significant change since the previous study. Electronically Signed: Swetha Tracy, at 0:34 EDT Tel , Service support , Chest CTA 05/28/19 01:08 IMPRESSION: No demonstrated pulmonary embolism or arterial dissection. Possible pulmonary edema or bilateral pneumonia. Small bilateral pleural effusions. There is irregular mass in the right lower lobe measures approximately 6.2 x 5.6 cm most likely represent a neoplasm. Electronically Signed: Swetha Tracy, at 2:13 EDT Tel , Service support , Current Medications Albuterol Sulfate (Ventolin Aerosols) 2.5 mg INHALATION Q2H PRN PRN PRN Reason: SHORTNESS OF BREATH Albuterol/Ipratropium (Duoneb) 3 ml INHALATION Q4H.RT WEI Last Admin: 05/28/19 02:30 Dose: 3 ml Documented by: Dextrose (D50w Syringe) 0 gm IV X1 PRN; Protocol PRN Reason: Hypoglycemia Enoxaparin Sodium (Lovenox) 40 mg SC DAILY@1000 WEI Glucagon () 1 mg IM .X1 PRN PRN Reason: Hypoglycemia Sodium Chloride () 1,000 mls @ 75 mls/hr IV .[id number] WEI Stop: 05/28/19 15:11 Last Admin: 05/28/19 02:24 Dose: 75 mls/hr Documented by: Levofloxacin (Levaquin Iv) 750 mg in 150 mls @ 100 mls/hr IV Q24@2200 WEI Last Infusion: 05/28/19 03:55 Dose: Infused Documented by: Sodium Chloride () 250 mls @ 15 mls/hr IV .[id number] PRN PRN Reason: Saline Flush Aztreonam 2 gm/ Sodium (Chloride) 100 mls @ 150 mls/hr IV Q8 WEI Last Infusion: 05/28/19 05:03 Dose: Infused Documented by: Insulin Human Lispro (Humalog Kwikpen (Bkc)) 0 unit SC Q6 WEI; Protocol Last Admin: 05/28/19 05:38 Dose: 1 u Documented by: Methylprednisolone (Solu-Medrol) 40 mg IV Q8 WEI Last Admin: 05/28/19 05:39 Dose: 40 mg Documented by: Ondansetron HCl (Zofran) 4 mg IV Q8H PRN PRN PRN Reason: NAUSEA/VOMITING Sodium Chloride () 10 - 40 ml IV UD PRN PRN Reason: SALINE FLUSH Assessment/Plan Active and Suspected Problems (Last Reviewed 05/28/19 @ 02:11 by Jacobo Unger MD) Severe sepsis (Acute) Sepsis (Acute) COPD exacerbation (Acute) RECOMMENDATIONS: 1. Discontinue current antimicrobials and broaden coverage to meropenem. 2. Continue bronchodilators and IV steroids as ordered. 3. Wean patient from continuous BiPAP support as tolerated. 4. Patient to remain n.p.o., pending evaluation by speech therapy. 5. Continue appropriate DVT prophylaxis 6. Close outpatient pulmonary follow-up is strongly recommended. IMPRESSIONS: 1. Acute on chronic combined respiratory failure Likely secondary to COPD with exacerbation with concern for underlying pulmonary infectious process. The patient did have bilateral groundglass changes noted on CTA chest. He has evidence of a severe airflow obstruction based upon PFTs completed through the [facility]. For now, would recommend continuing BiPAP therapy as needed. Wean to supplemental oxygen as tolerated with a goal to maintain saturations at or above 88%. The patient will be continued on broad-spectrum antimicrobials, pending infectious work-up. Continue bronchodilators and steroids as ordered. The patient undoubtedly needs to be followed closely upon discharge from the hospital. It would certainly be reasonable that he be placed on a triple therapy inhaler regimen, as opposed to his currently prescribed Anoro, given the degree of his underlying airflow obstruction and use of short acting bronchodilators in his home environment. In addition to the aforementioned, I would recommend that the patient remain n.p.o. for now until evaluation is completed by speech therapy, prior to advancing his diet. At his baseline, the patient has a 4 L/min supplemental oxygen requirement. 2. 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 There has been no evidence of cancer recurrence according to the patient's pulmonary provider at [facility]. 3. 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 Outpatient cardiac regimen can be resumed once hemodynamic stability has been insured. 4. Pulmonary hypertension/hypertension/hyperlipidemia/advanced age/CODE STATUS Complicates care, management, recovery and prognosis. Physical therapy to work with patient as tolerated. We will plan to discuss goals of care with the patient and his . In August 2017, he was referred to palliative care by our office. However, the patient later declined the referral. UPDATE: Following the patient's speech evaluation this morning, he was noted to have worsening in his breathing quality. The patient became more labored with wheezing noted on exam. He was placed back on BIPAP and provided medication support for anxiety. Due to tachycardia, he was transitioned to scheduled atrovent. Over the course of the next several hours the patient continued to struggle from a respiratory perspective despite the use of BIPAP. I had a very mila discussion with the patient regarding my concerns that he would continue to decompensate clinically, if nothing more aggressive was entertained. I made sure that he understood that if intubation was considered that I could not guarantee that he would be able to be extubated. The patient elected to keep himself full code and therefore wished to proceed with intubation. Bedside Intubation Note: Indication: Impending Respiratory Failure Consent was obtained from: Patient The patient was placed in the appropriate sniffing position. Preoxygenated sedation via BVM was provided for a minimum of 3 minutes. The patient had continuous cardiac as well as pulse oximetry monitoring during the procedure. Procedure sedation was provided by the administration of versed and etomidate. Direct laryngoscopy was then performed using a number four blade, which revealed a grade 1 view. A 8.0 mm endotracheal tube was visualized advancing between the cords to the level of 22 cm at the lip. The stylette was then removed and discarded. Tube placement was confirmed by fogging in the tube along with equal and bilateral breath sounds. Colorimetric change was visualized on the CO2 meter. The cuff was then inflated and the tube secured using a commercially available device. A good pulse oximetry waveform was seen on the monitor throughout the procedure. A portable chest x-ray has been ordered to confirm appropriate placement. The patient tolerated the procedure well. TIME: 80 minutes of critical care time, inclusive of procedures, was spent addressing the patient's acute on chronic combined respiratory failure, COPD with exacerbation, history of non-small cell lung cancer, right lower lobe masslike density, congestive heart failure, review of all data and collaboration with the care team. ([id number], [id number]) Code Visit Procedures: 47381 Critial Care Addl 30 Min 9xxxx: 11742 Critical care first hour
--- NOTE | 2019-05-28 06:39 | PN_ITS ---
Patient Problems: Active and Suspected Problems (Last Reviewed 05/28/19 @ 02:11 by Jacobo Unger MD) Severe sepsis (Acute) Sepsis (Acute) COPD exacerbation (Acute) Subjective: Levaquin day #1 Mr. Dc is a 83-year-old male with a past medical history of lung cancer (treated with radiation), pacemaker implantation, hypertension, diastolic congestive heart failure, COPD, chronic respiratory failure with hypoxia, nonrheumatic aortic stenosis, pulmonary hypertension and GERD who presented to the emergency department at [facility] on 05/28/2019 complaining of shortness of breath. When the squad arrived at his residence his oxygen saturation was 70% on his baseline 4 L nasal cannula. He was placed on a nonrebreather and the oxygen saturation was 90%. He complained of a cough productive of brownish-green sputum. Vital signs at arrival to the emergency department were temperature 97.3, pulse rate 115, blood pressure 195/94, respiratory rate 32-44 and he was 88% saturated on a nonrebreather. He was subsequently placed on BiPAP with a 80% FiO2 and the pulse ox was 96%. CBC showed a white blood cell count of 10.1 with 45% neutrophils. Hemoglobin and platelets were within normal limits. ABG on BiPAP with 20/6 settings showed a pH of 7.22, PCO2 of 80 and a PO2 of 100. BMP revealed a low sodium at 128 with a chloride of 89. Serum bicarb was elevated at 34 and his BUN was 14 with a creatinine of 0.64. Random blood sugar was 251 but hemoglobin A1c was normal at 5.5. Lactic acid was 1.2 and troponin was 0.02. BNP was within normal limits at 90. The UA had 0 RBCs and 0 WBCs. Nasal swab was negative for MRSA. The chest x-ray showed chronic interstitial lung disease which was essentially unchanged from a prior chest x-ray in October 2018. A CTA of the chest was obtained and showed no demonstrated pulmonary embolism or arterial dissection. There were diffuse groundglass opacities both lungs and there was an irregular mass in the right lower lobe measuring 6.2 x 5.6 cm. CTA of the chest in October 2018 showed a possible infiltrating malignant mass in the right lower lobe which was not definitively present. He received 125 mg of Solu-Medrol in the emergency department and aerosolized bronchodilators. He was admitted to the hospital with a diagnosis of acute on chronic combined respiratory failure secondary to acute exacerbation of COPD. Inhaled bronchodilators were continued. Solu-Medrol was continued. Patient was started on Levaquin and remained on BiPAP. All events of the past 24 hours of been reviewed. At approximately 3 AM his blood pressure dropped to 73/47 and he received 30 cc/kg of body weight with some improvement. Current blood pressure is 93/47 with an MAP of 62. Tachycardia has resolved. Fluid balance since admission is +2109. All lab was personally reviewed. Hemoglobin dropped to 12 with hydration. Platelets and white blood cell count remain within normal limits. There is a left shift today but the patient has been receiving high-dose intravenous steroids. ABG this a.m. on BiPAP with an FiO2 of 50% and settings of 20/6 shows a pH of 7.29, PCO2 of 61 and a PO2 of 80. Saturation is 94%. Influenza swab was negative. Admits to having trouble swallowing and coughs with drinking water. He states he has to stand to eat. I suspect the etiology of the abrupt onset of SOB that he aspirated last evening. He was able to give a sputum sample today. Dr. Mccartney reviewed the recent PN from the logistics team leader he sees once a year and they feel the changes in the R base are chronic and due to radiation fibrosis. There are increased opacities in the Left base when compared to the CT done of the chest in October of this year. Severe bullous emphysema - currently only on Anoro and not triple therapy. Still requiring BIPAP while awake at times. He is c/o pain in the abd and states he has been having soft BM's, 2 yesterday, but small amount and he feels constipated. Denies nausea. His pain is primarily in the lower abd. Had to be straight cath'd last night.....500 cc. - Physical Exam Vitals/I&O's: Vital Signs Temp Pulse Resp BP Pulse Ox 98.0 F 78 22 H 95/48 L 97 05/28/19 05:00 05/28/19 05:00 05/28/19 05:00 05/28/19 05:00 05/28/19 05:00 Oxygen Flow Rate (L/min) 15 Oxygen Delivery Method Bi-pap Weight: 150 lb 12.739 oz Body Mass Index (BMI) 24.3 Intake and Output for Last 24 Hours 05/26/19 05/27/19 05/28/19 23:59 23:59 23:59 Intake Total 2608.7 / 2608.7 Output Total 500 / 500 Balance 2108.7 / 2108.7 General: Alert, Cooperative, - - appears fatigued HEENT: Atraumatic, PERRLA, EOMI, Normocephalic Oral: No Gingival or Mucosal Lesions/ Ulcerations, Dry Mucosa Neck: Supple, No Nodes, Trachea Midline Lungs: Diminished, Rales - he has coarse crackles laterally on the left and in the left base posteriorly while on BIPAP, - - No accessory muscle use, symmetric chest expansion Cardiovascular: Regular rate, Regular Rhythm, Murmur - He has a Sys MM at the second right intercostal space with radiation to the left ventricular outflow tract, lower left sternal border and apex., No rub noted, No Gallop Abdomen: Soft, Hypoactive Bowel Sounds, Distended - And tympanic, Tender - Mostly in the suprapubic and lower abdominal areas., - - He did not guard with palpation Extremities: No clubbing, No cyanosis, No Calf Tenderness, Diminished Peripheral Pulses, Edema - At the ankles., - - He has stasis hyperpigmentation of both distal lower extremities and has multiple superficial varicosities of both extremities. Skin: No rashes, No breakdown Musculoskeletal: Arthritic Changes Neurological: Cranial nerves II-XII grossly intact, Neuro grossly intact Psych/Mental Status: Appropriate, Flat Affect - weak and tired Microbiology Past 72 Hours 05/28/19 02:15 Mucosa - Nose Influenza Types A,B Direct FA (STEVE) - Final Laboratory Results 05/27/19 23:40: WBC 10.1, RBC 4.42 L, Hgb 13.5, Hct 43.3, MCV 98.0 H, MCH 30.5, MCHC 31.2 L, RDW Std Deviation 40.6, RDW Coeff of Earline 11.1 L, Plt Count 203, MPV 9.1, Immature Gran % (Auto) 1.400 H, Neut % (Auto) 45.4 L, Lymph % (Auto) 38.2, Davison % (Auto) 11.4 H, Eos % (Auto) 2.6, Baso % (Auto) 1.0, Absolute Neuts (auto) 4.6, Absolute Lymphs (auto) 3.87, Nucleated RBC % 0 05/27/19 23:40: Sodium 128 L, Potassium 4.4, Chloride 89 L, Carbon Dioxide 34.0 H, Anion Gap 5, BUN 14, Creatinine 0.64 L, Estim Creat Clear Calc 56.95, Est GFR (MDRD) Af Amer 154, Est GFR (MDRD) Non-Af 127, BUN/Creatinine Ratio 21.8 H, Glucose 251 H, Calcium 9.0, Troponin I 0.020 05/27/19 23:40: B-Natriuretic Peptide 90.1 05/27/19 23:40: PT 13.3, INR 1.0, APTT 30.3 05/27/19 23:40: Lactic Acid 1.2 05/28/19 00:33: Specimen Type ART, Sample Site R Radial, pH 7.07 L*, Bicarbonate Actual 36.6 H, POC Total CO2 40, Base Excess 6 H, O2 Saturation 97, O2 % 80, ABG pCO2 127.1 H*, ABG pO2 132 H, Mo Test POS, Respiration Rate 12, O2 Delivery Device Bi / C PAP, EPAP 6, IPAP 14, Blood Gas Notified Whom ED , Blood Gas Notified Time 40 05/28/19 02:03: Specimen Type ART, Sample Site L Radial, pH 7.22 L, Bicarbonate Actual 32.5 H, POC Total CO2 35, Base Excess 5 H, O2 Saturation 96, O2 % 70, ABG pCO2 79.4 H*, ABG pO2 100, Mo Test POS, Respiration Rate 12, O2 Delivery D evice Bi / C PAP, EPAP 6, IPAP 20, Blood Gas Notified Whom HOSP , Blood Gas Notified Time 156 05/28/19 02:04: POC Glucose 244 H 05/28/19 03:15: Hemoglobin A1c 5.5 05/28/19 03:15: WBC 9.5, RBC 3.97 L, Hgb 12.0 L, Hct 39.0 L, MCV 98.2 H, MCH 30.2, MCHC 30.8 L, RDW Std Deviation 41.1, RDW Coeff of Earlnie 11.2 L, Plt Count 159, MPV 9.1, Immature Gran % (Auto) 0.300, Neut % (Auto) 90.8 H, Lymph % (Auto) 2.6 L, Davison % (Auto) 6.1, Eos % (Auto) 0.0, Baso % (Auto) 0.2, Absolute Neuts (auto) 8.6 H, Absolute Lymphs (auto) 0.25 L, Nucleated RBC % 0 05/28/19 03:15: Sodium 129 L, Potassium 4.6, Chloride 90 L, Carbon Dioxide 35.0 H, Anion Gap 4 L, BUN 16, Creatinine 0.90, Estim Creat Clear Calc 57.10, Est GFR (MDRD) Af Amer 104, Est GFR (MDRD) Non-Af 86, BUN/Creatinine Ratio 17.8, Glucose 225 H, Calcium 8.4 L 05/28/19 03:15: Lactic Acid 1.5 05/28/19 04:00: MRSA (PCR) Negative 05/28/19 04:15: Urine Color Yellow, Urine Clarity Clear, Urine pH 6.5, Ur Specific [place] 1.020, Urine Protein 100 H, Urine Glucose (UA) 100 H, Urine Ketones Negative, Urine Occult Blood 25 H, Urine Nitrite Negative, Urine Bilirubin Negative, Urine Urobilinogen Normal, Ur Leukocyte Esterase Negative, Urine RBC 0 SEEN, Urine WBC 0 SEEN, Ur Squamous Epith Cells 0 SEEN, Urine Bacteria 0 SEEN, Urine Mucus 0 SEEN 05/28/19 05:37: POC Glucose 189 H 05/28/19 06:03: Specimen Type ART, Sample Site L Radial, pH 7.29 L, Bicarbonate Actual 29.2 H, POC Total CO2 31, Base Excess 3 H, O2 Saturation 94 L, O2 % 50, ABG pCO2 60.8 H, ABG pO2 80, Mo Test POS, Respiration Rate 12, O2 Delivery Device Bi / C PAP, EPAP 6, IPAP 20, Blood Gas Notified Whom HOSP MD, Blood Gas Notified Time 555 Current Medications Albuterol Sulfate (Ventolin Aerosols) 2.5 mg INHALATION Q2H PRN PRN PRN Reason: SHORTNESS OF BREATH Albuterol/Ipratropium (Duoneb) 3 ml INHALATION Q4H.RT WEI Last Admin: 05/28/19 02:30 Dose: 3 ml Documented by: Dextrose (D50w Syringe) 0 gm IV X1 PRN; Protocol PRN Reason: Hypoglycemia Enoxaparin Sodium (Lovenox) 40 mg SC DAILY@1000 WEI Glucagon () 1 mg IM .X1 PRN PRN Reason: Hypoglycemia Sodium Chloride () 1,000 mls @ 75 mls/hr IV .[id number] WEI Stop: 05/28/19 15:11 Last Admin: 05/28/19 02:24 Dose: 75 mls/hr Documented by: Levofloxacin (Levaquin Iv) 750 mg in 150 mls @ 100 mls/hr IV Q24@2200 WEI Last Infusion: 05/28/19 03:55 Dose: Infused Documented by: Sodium Chloride () 250 mls @ 15 mls/hr IV .[id number] PRN PRN Reason: Saline Flush Aztreonam 2 gm/ Sodium (Chloride) 100 mls @ 150 mls/hr IV Q8 WEI Last Infusion: 05/28/19 05:03 Dose: Infused Documented by: Insulin Human Lispro (Humalog Kwikpen (Bkc)) 0 unit SC Q6 WEI; Protocol Last Admin: 05/28/19 05:38 Dose: 1 u Documented by: Methylprednisolone (Solu-Medrol) 40 mg IV Q8 WEI Last Admin: 05/28/19 05:39 Dose: 40 mg Documented by: Ondansetron HCl (Zofran) 4 mg IV Q8H PRN PRN PRN Reason: NAUSEA/VOMITING Sodium Chloride () 10 - 40 ml IV UD PRN PRN Reason: SALINE FLUSH Medical Necessity - Tobacco Use Smoking Status: Former smoker Tobacco Use: Cigarettes, Cigars Assessment/Plan All Active Problems (Last Reviewed 05/28/19 @ 02:11 by Jacobo Unger MD) Severe sepsis (Acute) Sepsis (Acute) COPD exacerbation (Acute) Dyspnea (Acute) Acute exacerbation of chronic obstructive pulmonary disease (COPD) (Resolved) Acute on chronic diastolic (congestive) heart failure (Resolved) Acute respiratory failure with hypoxia and hypercapnia (Resolved) Bilateral pneumonia (Resolved) CAP (community acquired pneumonia) (Resolved) Dehydration (Resolved) Drug rash (Resolved) Hyperglycemia (Resolved) Hyponatremia (Resolved) Hypotension (Resolved) Pulmonary congestion (Resolved) Severe sepsis (Resolved) Day #1 meropenem and vancomycin Impressions 1. severe sepsis with acute on chronic combined respiratory failure more likely than not secondary to aspiration pneumonia. Levaquin DC'd and he has been started on Broad spectrum antibiotics. 2. chronic dysphagia - seen by [facility] and esophagram ordered for tomorrow. OK to take meds with applesauce today. 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 acute Pneumonia - suspect aspiration. Antibiotics broadened. Legionella and streptococcal antigens in the urine are negative. Influenza is negative. Respiratory panel and sputum Gram stain and culture are pending. Blood cultures are pending. 4. generalized anxiety with panic attacks chronically at home - Buspar started - would like to avoid benzo's 5. History of non-small cell lung cancer-treated with radiation and sometimes follows at [facility] main [place] and sometimes at [place]. 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 Severe centrilobular bullous emphysema 7. Severe pulmonary hypertension with a right ventricular systolic pressure estimated at 78 on echocardiogram in October 2018. 8. Cardiomyopathy with a 45% EF in October 2018 9. Moderate to severe aortic valve stenosis with evidence of diastolic dysfunction 10. 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 Hyponatremia-resolved He decompensated this afternoon and the HR increased to the 130's, he was very diaphoretic and anxious and he was intubated and placed on mechanical ventilation. MRSA nasal swab is negative - will discuss with Dr. Mccartney in the AM if the Vanco can be discontinued If he survives this admission he would be a good candidate for palliative care. Prolonged Care Time: Additional care time for treatment, evaluation, stabilization, discussion with patient as well as family and consultants above initial time spent by the night hospitalist doing the admission and orders was 70 minutes. Multiple visits throughout the day due to him decompensating and requiring intubation. Code Visit Procedures: 39855 Prolonged InPt Service; first hour
[2019-05-28 07:50] LABS: Urine Sodium 53 mmol/L (Not Establ.)
[2019-05-28 08:05] LABS: AST(SGOT) 69 U/L (15-37); Alanine Aminotransfer ALT/SGPT 96 U/L (16-61); Albumin, Serum 3.5 g/dL (3.2-5.0); Alkaline Phosphatase 70 U/L (45-117); Globulin 2.9 g/dL (2.2-4.2); Phosphorus 4.1 mg/dL (2.5-4.9); Protein, Total 6.4 g/dL (6.4-8.2); Thyroid Stim Hormone (TSH) 1.65 uIU/mL (0.358-3.74)
[2019-05-28 08:14] LABS: Osmolality, Serum 280 mOsm/KG (280-301)
[2019-05-28 08:19] LABS: Osmolality, Urine 451 mOsm/KG
--- NOTE | 2019-05-28 09:31 | CASEMGMT ---
RN CM Assessment Presentation: COPD exacerbation, Resp failure Intro role of CM and purpose of RN CM assessment to patient and his . Pt is awake alert and able to participate in assessment. Demographics, PCP and Pharmacy verified. Pt states he is generally independent at home, but can assist if needed. PCP: Dr. Valencia Specialists: Dr. Mccartney, pulmonology; Dr. Alan, cardiology Preferred Pharmacy: [facility] Insurance: [facility] [employer] Prescription Benefit: yes LNOK: , [facility] Living Arrangements: Lives independently in one story home with . Pt states he completes own ADL's, able to assist if needed. Transportation: drives if needed. DME: [facility] [employer]. 4L NC @ home continuous, has portability. Nebulizer, walker, cane, handrails in bathroom. HHC: none Patient DC goals: none DC PLAN: Home. Pt and have no concerns re: dc needs at this time, but will contact CM if concerns arise. Payton LONGN RN ACM
[2019-05-28] MEDS: Enoxaparin 40 MG/0.4 ML Syringe SC (09:59)
[2019-05-28] MEDS: Bisacodyl 5 MG Tablet 10 MG PO (11:06)
[2019-05-28] MEDS: Haloperidol Lactate 5 MG/ML Vial 1 MG IV (11:44)
[2019-05-28] MEDS: 0.9% Saline Lock 10 ML Syringe IV ×4 (11:44→13:51)
[2019-05-28] MEDS: fentaNYL 100 MCG/2 ML Ampul 25 MCG IV (11:55)
[2019-05-28 12:00] LABS: Bedside Glucose 199 mg/dL (70-110)
[2019-05-28] MEDS: Midazolam 2 MG/2 ML Syringe IV (13:21)
[2019-05-28] MEDS: Etomidate 20 MG/10 ML Vial IV (13:22)
--- NOTE | 2019-05-28 13:25 | NURSING ---
1321- 2mg versed given IV x1 given by Lyubov 1322- 20mg etomidate IV x1 given by DR. Mccartney 1324- Intubated by x1 attempt. #[id number], 22 at lip. Positive color change and bilat breath sounds.
[2019-05-28] MEDS: fentaNYL drip 100 ML 5 MCG IV (13:30)
--- NOTE | 2019-05-28 13:39 | RAD_ITS ---
STUDY: X-RAY CHEST REASON FOR EXAM: Male, 83 years old. Endotracheal tube and orogastric tube placement. TECHNIQUE: Single AP portable view of the chest. COMPARISON: Comparison is made with prior study done earlier in the day. FINDINGS: The tip of the endotracheal tube is at 6.7 cm proximal to the nicole. The tip of the orogastric tube is in the distal portion of the stomach. Residual bibasilar infiltrates worse on the right side with blunting of both costophrenic angles. Improved aeration of both lung bases. Normal size heart. A left-sided dual-chamber pacemaker is seen. Normal mediastinum and rafia. Normal visualized pulmonary arteries. Normal visualized aortic arch and descending thoracic aorta. Normal visualized thoracic spine. Normal visualized ribs, clavicles, and shoulders. There is no demonstrated abnormality of the visualized soft tissue structures of the upper abdomen. RAD/CXR for Line Placement IMPRESSION: The tip of the endotracheal tube is at 6.7 cm proximal to nicole. The tip of the orogastric tube is in the distal body of the stomach. Improved aeration of both lung bases with residual infiltrates worse on the right side. Electronically Signed: Caleb Hartman, at 14:32 EDT , Service support ,
[2019-05-28] MEDS: Propofol 10MG/Ml 1,000 MG/100 ML Bottle 4.1 MG CONT INF (14:00)
--- NOTE | 2019-05-28 14:00 | NURSING ---
Attempting to pull at tubes/lines, unable to re-direct patient at this time, soft wrist restraints applied for patient safety, notified.
[2019-05-28] MEDS: Ipratropium 0.5 MG/2.5 ML SOLUTION INHALATION ×3 (14:04→23:09)
[2019-05-28 14:45] LABS: Allen Test POS; Base Excess -1 mmol/L (-2 to +2); Bicarbonate 27.2 mmol/L (22-26); Blood Gas Specimen Type ART; FI02 60; Mode A-C; O2 Delivery Device Vent; PEEP 5; PO2 88 mmHG (75-100); RR 16; SITE L Radial; SO2 94 % (95-99); Time Given 1445; Total Carbon Dioxide 29 mmol/L; Vt 500; pCO2 70.5 mmHg (35-45); pH 7.19 (7.35-7.45)
[2019-05-28 15:26] LABS: CPK Total, Creatine Kinase 88 U/L (39-308)
[2019-05-28 15:27] LABS: Triglycerides 37 mg/dL
--- NOTE | 2019-05-28 16:15 | CPS ---
critical value on abg done at 14:34. called to Dr. Mccartney
[2019-05-28 16:19] LABS: Anion Gap 6 (5-15); BUN 17 mg/dL (7-18); BUN/Creat Ratio 18.1 RATIO (10-20); Calcium,Total 8.3 mg/dL (8.5-10.1); Chloride 99 mmol/L (98-107); Creatinine, Serum 0.94 mg/dL (0.70-1.30); EST Glomerular Filtration Rate 82 mL/min (>60); Est Glom Filt Rate - Afr Amer 99 mL/min (>60); Estimated Creatinine Clearance 54.67 ml/min; Glucose 177 mg/dL (74-106); Potassium 4.9 mmol/L (3.5-5.1); Sodium Level 132 mmol/L (136-145)
--- NOTE | 2019-05-28 16:59 | CHAPLAIN ---
Type of Pastoral Visit _x__ Initial Visit ___ Follow-up Visit ___ On-call Visit ___ General Patient Visit ___ Spiritual Assessment ___ Family Conference ___ Bereavement ___ Rapid Response ___ Code Blue ___ Other (describe below) Pastoral Care Referral From ___ Patient _x__ Family _x__ Nurse ___ Physician ___ Funeral Home General Manager ___ [employer] Crew Leader ___ Other (describe below) Sacrament/Intervention ___ Active listening ___ Anointing ___ Hoahaoism ___ Bereavement ___ Communion ___ Teena exploration ___ ___ Life review _x__ Prayer ___ Reconciliation ___ Sacrament of Sick _x__ Supportive presence ___ Wedding _x__ Other (describe below) Pastoral Comments patient was intubated and this visit was with spouse and daughter who received the support
--- NOTE | 2019-05-28 17:19 | PCM.OPRPT ---
Report of Operation Date of Procedure: 05/28/19 Surgery/Procedure Performed:: Triple-lumen catheter insertion Description of Surgical Findings:: Central line placement procedure note Indication: IV access/hemodynamic instability/vasoactive medications Procedure: A time-out was completed to verify correct patient, indication, medication allergies, procedure, coagulation studies, informed consent signed, and equipment needed. The patient was placed in the supine position for a central line placement to the rt IJ vein. The patients rt neck was prepped using chlorhexidine and a full body sterile drape was applied. 1% lidocaine was used to anesthetize the surrounding skin. A 7fr 16 cm blue guard triple lumen catheter introduced into the internal jugular vein using the modified Seldinger technique with the assistance of ultrasound. The catheter was threaded smoothly over the guidewire, the guidewire was removed easily, nonpulsatile blood returned. All ports were aspirated of air and flushed with sterile saline. The catheter was sutured in place and covered with an occlusive dressing impregnated with chlorhexidine. Post-procedure: The patient tolerated the procedure well. Vital signs remained stable. EBL 3 cc. No complications. Chest X Ray ordered to confirm tip placement and the absence of pneumothorax. Code Visit Procedures: 52009 Insert Non-tunnel CV Cath
[2019-05-28 17:30] LABS: Bedside Glucose 153 mg/dL (70-110)
--- NOTE | 2019-05-28 17:45 | RAD_ITS ---
STUDY: X-RAY CHEST REASON FOR EXAM: Male, 83 years old. Line placement TECHNIQUE: Single AP portable view of the chest. COMPARISON: Same day, 1:43 PM. FINDINGS: Right IJ line terminates in the lower SVC. No pneumothorax. Endotracheal and nasogastric tubes are stable. Probable worsening of infiltrate in the left lung base with no other changes since earlier today. Electronically Signed: Khoa Miranda MD at 18:17 EDT , Service support , RAD/CXR for Line Placement
[2019-05-28] MEDS: CHLORHEXIDINE GLUC 2% CLOTH 1 EACH TOWELETTE TOPICAL (18:00)
--- NOTE | 2019-05-28 18:15 | PCM.RX.CS ---
Consult Pharmacy has been consulted to manage selected antiobiotic: Vancomycin Type of Consult: New start Suspected Infection: Sepsis, Pneumonia Prior Doses of Antibiotics Received/Current Regimen: NONE Labs: Sodium 132 mmol/L (136-145) L 05/28/19 15:05 Potassium 4.9 mmol/L (3.5-5.1) 05/28/19 15:05 Chloride 99 mmol/L (98-107) 05/28/19 15:05 Carbon Dioxide 27.0 mmol/L (21.0-32.0) 05/28/19 15:05 Anion Gap 6 (5-15) 05/28/19 15:05 BUN 17 mg/dL (7-18) 05/28/19 15:05 Creatinine 0.94 mg/dL (0.70-1.30) 05/28/19 15:05 Est GFR (MDRD) Af Amer 99 mL/min (>60) 05/28/19 15:05 Est GFR (MDRD) Non-Af 82 mL/min (>60) 05/28/19 15:05 BUN/Creatinine Ratio 18.1 RATIO (10-20) 05/28/19 15:05 Glucose 177 mg/dL (74-106) H 05/28/19 15:05 Microbiology: Microbiology 05/28/19 14:15 Sputum, Induced/[place] Gram Stain - Final 05/28/19 09:30 Sputum, Expectorated/Coughed Gram Stain - Final 05/28/19 08:55 Mucosa - Nasopharyngeal Respiratory Panel (PCR) - Final 05/28/19 04:15 Urine Catheter - Catheter Streptococcus pneumoniae Antigen (M - Final 05/28/19 04:15 Urine Catheter - Catheter Legionella Antigen - Final 05/28/19 02:15 Mucosa - Nose Influenza Types A,B Direct FA (STEVE) - Final Weight used for dosin.4 kg Estimated Creatinine Clearance: 57 ML/MIN Goal Trough: 15-20 mcg/mL Pharmacy Plan for Drug Dosing: PLAN/RECOMMENDATIONS 1. Vancomycin 2000mg IV loading dose x1 administered 05/28/19 @1715 2. Vancomycin 750mg IV Q12hrs to start 05/29/19 @0500 3. Trough prior to 4th total dose 05/30/19 @0430 4. Pharmacy Service will continue to monitor and adjust dosing as required.
[2019-05-28 19:30] LABS: Allen Test POS; Base Excess 3 mmol/L (-2 to +2); Bicarbonate 29.5 mmol/L (22-26); Blood Gas Specimen Type ART; FI02 50; Mode A-C; O2 Delivery Device Vent; PEEP 5; PO2 62 mmHG (75-100); RR 14; SITE R Radial; SO2 88 % (95-99); Time Given 1915; Total Carbon Dioxide 31 mmol/L; Vt 500; pCO2 61.2 mmHg (35-45); pH 7.29 (7.35-7.45)
[2019-05-28] MEDS: Chlorhexidine 15 ML PO (21:15)
[2019-05-28] MEDS: Senna/Docusate Sodium 1 Tablet 2 TABLET GT (21:18)
[2019-05-28] MEDS: Famotidine 20 MG Tablet GT (21:21)
[2019-05-28] MEDS: fentaNYL drip 100 ML 10 MCG IV (23:18)
[2019-05-28 23:25] LABS: Bedside Glucose 141 mg/dL (70-110)
[2019-05-29] VITALS (61 sets, daily range): BP systolic 88–160; BP diastolic 45–87; PULSE 60–93; RESP 14–65; TEMP 37–37.7; O2SAT 91–97
[2019-05-29] MEDS: Ipratropium 0.5 MG/2.5 ML SOLUTION INHALATION ×6 (03:35→22:40)
[2019-05-29] MEDS: Propofol 10MG/Ml 1,000 MG/100 ML Bottle 6.2 MG CONT INF (03:49)
[2019-05-29] MEDS: 0.9% Saline Lock 10 ML Syringe IV ×2 (05:00→21:22)
[2019-05-29 05:04] LABS: Hematocrit 36.5 % (40-54); Hemoglobin 11.3 g/dL (13.0-16.5); Mean Corpuscular Hgb 30.1 pg (27.0-32.0); Mean Corpuscular Volume 97.1 fL (80-94); Mean Platelet Vol. 8.9 fl (6.2-12.0); Platelet Count 181 K/mm3 (150-450); RBC Distribution Width CV 11.6 % (11.6-14.6); RBC Distribution Width SD 41.5 fl (35.1-43.9); Red Blood Count 3.76 M/mm3 (4.6-6.2)
[2019-05-29 05:17] LABS: Anion Gap 2 (5-15); BUN 19 mg/dL (7-18); BUN/Creat Ratio 31.5 RATIO (10-20); Calcium,Total 8.5 mg/dL (8.5-10.1); Chloride 99 mmol/L (98-107); EST Glomerular Filtration Rate 136 mL/min (>60); Est Glom Filt Rate - Afr Amer 164 mL/min (>60); Estimated Creatinine Clearance 51.39 ml/min; Glucose 153 mg/dL (74-106); Potassium 5.1 mmol/L (3.5-5.1); Sodium Level 133 mmol/L (136-145)
[2019-05-29] MEDS: Insulin Lispro 100 UNIT/ML INSULN.PEN SC ×2 (05:25→23:35)
[2019-05-29 05:30] LABS: Bedside Glucose 154 mg/dL (70-110)
--- NOTE | 2019-05-29 06:15 | PN_ITS ---
Subjective: The patient was seen and examined at the bedside this morning. Events from the last 24 hours have been reviewed. The patient is currently febrile, hemodynamically stable and maintaining appropriate oxygen saturations on assist control mode mechanical ventilation with an FiO2 requirement of 55%. The patient did not do well on his spontaneous awakening/breathing trial this morning due to the development of anxiety and tachypnea. Last evening, the patient did require the initiation of vasopressor support with Levophed at 5 mcg to maintain hemodynamic stability. In addition, vancomycin was added to the patient's antimicrobial regimen yesterday after his initial sputum Gram stain revealed gram-positive cocci. The patient also had significant thick, tenacious secretions upon intubation. Objective: The patient's most recent lab work, culture data and imaging studies have all been personally reviewed. Surface echocardiogram from October 2018 revealed mild segmental systolic dysfunction with an ejection fraction of 45%. The right ventricular systolic pressure was estimated to be 78 mmHg. There is moderate to severe aortic stenosis as well. Respiratory viral panel was negative. Strep and urine Legionella antigens were negative. Blood, urine and sputum cultures are pending. OUTSIDE MEDICAL RECORDS FROM [facility]: (Obtained during October Hospital Admission) Pulmonary medicine office visit on August 29, [address] Li: Reports that patient is using Anoro daily. Also reported worsening dysphagia with concern that patient may need to be seen again by GI for potential EGD and dilation. The patient does have a history of lung cancer of the right lower lobe ([id number]), s/p SBRT completed 10/19/2015. Follow-up PET scan from June 2017 revealed resolution of the right lower lobe mass. CT chest from June 2018 revealed no evidence of recurrence. CT chest without contrast dated June 2018 revealed significant bilateral emphysema, stable calcified biapical scarring, most pronounced in the right apex. There was demonstration of an ill-defined region of consolidation in the right lung base with radiating bands of scar/fibrosis and associated volume loss, consistent with post radiation fibrosis. There was a stable appearing 5 mm nodule in the left lower lobe. A follow-up office visit with Dr. Li occurred on May 17, 2019 The patient was documented to be having episodes of choking when drinking water. The patient was documented to have severe COPD. 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 A CT chest was just completed through the [facility] on May 16, which demonstrated no signs of cancer recurrence. General: - - Intubated, sedated and mechanically ventilated. HEENT: Atraumatic, PERRLA, Normocephalic Oral: No Gingival or Mucosal Lesions/ Ulcerations, - - Endotracheal and OG tubes currently in place Neck: Supple, No Nodes, Trachea Midline, - - Right-sided triple-lumen catheter in place Lungs: Diminished, - - Coarse mechanical breath sounds along anterior lung tran Cardiovascular: Regular rate, Regular Rhythm, Normal S1, Normal S2, Murmur Abdomen: Bowel Sounds Present, Soft, Non Tender Extremities: No clubbing, No cyanosis, Edema Skin: No breakdown Musculoskeletal: No Tenderness to Palpation of Joints or Extremities Lymphatic: No Cervical, Supraclavicular, or Inguinal Adenopathy Neurological: - - No focal neurological deficits. Currently sedated. Vital Signs Temp Pulse Resp BP Pulse Ox 99.4 F H 77 17 93/54 L 92 05/29/19 06:00 05/29/19 06:00 05/29/19 06:00 05/29/19 06:00 05/29/19 06:00 Oxygen Flow Rate (L/min) 6 Oxygen Delivery Method Mechanical Ventilator Weight: 150 lb 12.739 oz Body Mass Index (BMI) 24.3 Intake and Output for Last 24 Hours 05/27/19 05/28/19 05/29/19 23:59 23:59 23:59 Intake Total 4832.63 / 4832.63 558.30 / 558.30 Output Total 1075 / 1075 Balance 3757.63 / 3757.63 558.30 / 558.30 Labs (Last 48 Hours) 05/27/19 05/27/19 05/27/19 23:40 23:40 23:40 WBC 10.1 RBC 4.42 L Hgb 13.5 Hct 43.3 MCV 98.0 H MCH 30.5 MCHC 31.2 L RDW Std Deviation 40.6 RDW Coeff of Earline 11.1 L Plt Count 203 MPV 9.1 Immature Gran % (Auto) 1.400 H Neut % (Auto) 45.4 L Lymph % (Auto) 38.2 [place] % (Auto) 11.4 H Eos % (Auto) 2.6 Baso % (Auto) 1.0 Absolute Neuts (auto) 4.6 Absolute Lymphs (auto) 3.87 Nucleated RBC % 0 PT INR APTT Specimen Type Sample Site pH Bicarbonate Actual POC Total CO2 Base Excess O2 Saturation O2 % ABG pCO2 ABG pO2 Mo Test Respiration Rate O2 Delivery Device Minute Volume Vent Mode Tidal Volume POC PEEP EPAP IPAP Blood Gas Notified Whom Blood Gas Notified Time Sodium 128 L Potassium 4.4 Chloride 89 L Carbon Dioxide 34.0 H Anion Gap 5 BUN 14 Creatinine 0.64 L Estim Creat Clear Calc 56.95 Est GFR (MDRD) Af Amer 154 Est GFR (MDRD) Non-Af 127 BUN/Creatinine Ratio 21.8 H Glucose 251 H Hemoglobin A1c Serum Osmolality Lactic Acid Calcium 9.0 Phosphorus Magnesium Total Bilirubin Direct Bilirubin AST ALT Alkaline Phosphatase Total Creatine Kinase Troponin I 0.020 B-Natriuretic Peptide 90.1 Total Protein Albumin Globulin Triglycerides TSH Urine Color Urine Clarity Urine pH Ur Specific [place] Urine Protein Urine Glucose (UA) Urine Ketones Urine Occult Blood Urine Nitrite Urine Bilirubin Urine Urobilinogen Ur Leukocyte Esterase Urine RBC Urine WBC Ur Squamous Epith Cells Urine Bacteria Urine Mucus Urine Osmolality Ur Random Sodium Urine Creatinine MRSA (PCR) POC Glucose 05/27/19 05/27/19 05/27/19 23:40 23:40 23:40 WBC RBC Hgb Hct MCV MCH MCHC RDW Std Deviation RDW Coeff of Earline Plt Count MPV Immature Gran % (Auto) Neut % (Auto) Lymph % (Auto) [place] % (Auto) Eos % (Auto) Baso % (Auto) Absolute Neuts (auto) Absolute Lymphs (auto) Nucleated RBC % PT 13.3 INR 1.0 APTT 30.3 Specimen Type Sample Site pH Bicarbonate Actual POC Total CO2 Base Excess O2 Saturation O2 % ABG pCO2 ABG pO2 Mo Test Respiration Rate O2 Delivery Device Minute Volume Vent Mode Tidal Volume POC PEEP EPAP IPAP Blood Gas Notified Whom Blood Gas Notified Time Sodium Potassium Chloride Carbon Dioxide Anion Gap BUN Creatinine Estim Creat Clear Calc Est GFR (MDRD) Af Amer Est GFR (MDRD) Non-Af BUN/Creatinine Ratio Glucose Hemoglobin A1c Serum Osmolality 280 Lactic Acid 1.2 Calcium Phosphorus Magnesium Total Bilirubin Direct Bilirubin AST ALT Alkaline Phosphatase Total Creatine Kinase Troponin I B-Natriuretic Peptide Total Protein Albumin Globulin Triglycerides TSH Urine Color Urine Clarity Urine pH Ur Specific [place] Urine Protein Urine Glucose (UA) Urine Ketones Urine Occult Blood Urine Nitrite Urine Bilirubin Urine Urobilinogen Ur Leukocyte Esterase Urine RBC Urine WBC Ur Squamous Epith Cells Urine Bacteria Urine Mucus Urine Osmolality Ur Random Sodium Urine Creatinine MRSA (PCR) POC Glucose 05/28/19 05/28/19 05/28/19 00:33 02:03 02:04 WBC RBC Hgb Hct MCV MCH MCHC RDW Std Deviation RDW Coeff of Earline Plt Count MPV Immature Gran % (Auto) Neut % (Auto) Lymph % (Auto) [place] % (Auto) Eos % (Auto) Baso % (Auto) Absolute Neuts (auto) Absolute Lymphs (auto) Nucleated RBC % PT INR APTT Specimen Type ART ART Sample Site R Radial L Radial pH 7.07 L* 7.22 L Bicarbonate Actual 36.6 H 32.5 H POC Total CO2 40 35 Base Excess 6 H 5 H O2 Saturation 97 96 O2 % 80 70 ABG pCO2 127.1 H* 79.4 H* ABG pO2 132 H 100 Mo Test POS POS Respiration Rate 12 12 O2 Delivery Device Bi / C PAP Bi / C PAP Minute Volume Vent Mode Tidal Volume POC PEEP EPAP 6 6 IPAP 14 20 Blood Gas Notified Whom ED MD HOSP Blood Gas Notified Time 40 156 Sodium Potassium Chloride Carbon Dioxide Anion Gap BUN Creatinine Estim Creat Clear Calc Est GFR (MDRD) Af Amer Est GFR (MDRD) Non-Af BUN/Creatinine Ratio Glucose Hemoglobin A1c Serum Osmolality Lactic Acid Calcium Phosphorus Magnesium Total Bilirubin Direct Bilirubin AST ALT Alkaline Phosphatase Total Creatine Kinase Troponin I B-Natriuretic Peptide Total Protein Albumin Globulin Triglycerides TSH Urine Color Urine Clarity Urine pH Ur Specific [place] Urine Protein Urine Glucose (UA) Urine Ketones Urine Occult Blood Urine Nitrite Urine Bilirubin Urine Urobilinogen Ur Leukocyte Esterase Urine RBC Urine WBC Ur Squamous Epith Cells Urine Bacteria Urine Mucus Urine Osmolality Ur Random Sodium Urine Creatinine MRSA (PCR) POC Glucose 244 H 05/28/19 05/28/19 05/28/19 03:15 03:15 03:15 WBC 9.5 RBC 3.97 L Hgb 12.0 L Hct 39.0 L MCV 98.2 H MCH 30.2 MCHC 30.8 L RDW Std Deviation 41.1 RDW Coeff of Earline 11.2 L Plt Count 159 MPV 9.1 Immature Gran % (Auto) 0.300 Neut % (Auto) 90.8 H Lymph % (Auto) 2.6 L [place] % (Auto) 6.1 Eos % (Auto) 0.0 Baso % (Auto) 0.2 Absolute Neuts (auto) 8.6 H Absolute Lymphs (auto) 0.25 L Nucleated RBC % 0 PT INR APTT Specimen Type Sample Site pH Bicarbonate Actual POC Total CO2 Base Excess O2 Saturation O2 % ABG pCO2 ABG pO2 Mo Test Respiration Rate O2 Delivery Device Minute Volume Vent Mode Tidal Volume POC PEEP EPAP IPAP Blood Gas Notified Whom Blood Gas Notified Time Sodium 129 L Potassium 4.6 Chloride 90 L Carbon Dioxide 35.0 H Anion Gap 4 L BUN 16 Creatinine 0.90 Estim Creat Clear Calc 57.10 Est GFR (MDRD) Af Amer 104 Est GFR (MDRD) Non-Af 86 BUN/Creatinine Ratio 17.8 Glucose 225 H Hemoglobin A1c 5.5 Serum Osmolality Lactic Acid Calcium 8.4 L Phosphorus Magnesium Total Bilirubin Direct Bilirubin AST ALT Alkaline Phosphatase Total Creatine Kinase Troponin I B-Natriuretic Peptide Total Protein Albumin Globulin Triglycerides TSH Urine Color Urine Clarity Urine pH Ur Specific [place] Urine Protein Urine Glucose (UA) Urine Ketones Urine Occult Blood Urine Nitrite Urine Bilirubin Urine Urobilinogen Ur Leukocyte Esterase Urine RBC Urine WBC Ur Squamous Epith Cells Urine Bacteria Urine Mucus Urine Osmolality Ur Random Sodium Urine Creatinine MRSA (PCR) POC Glucose 05/28/19 05/28/19 05/28/19 03:15 03:15 03:15 WBC RBC Hgb Hct MCV MCH MCHC RDW Std Deviation RDW Coeff of Earline Plt Count MPV Immature Gran % (Auto) Neut % (Auto) Lymph % (Auto) [place] % (Auto) Eos % (Auto) Baso % (Auto) Absolute Neuts (auto) Absolute Lymphs (auto) Nucleated RBC % PT INR APTT Specimen Type Sample Site pH Bicarbonate Actual POC Total CO2 Base Excess O2 Saturation O2 % ABG pCO2 ABG pO2 Mo Test Respiration Rate O2 Delivery Device Minute Volume Vent Mode Tidal Volume POC PEEP EPAP IPAP Blood Gas Notified Whom Blood Gas Notified Time Sodium Cancelled Potassium Cancelled Chloride Cancelled Carbon Dioxide Cancelled Anion Gap Cancelled BUN Cancelled Creatinine Cancelled Estim Creat Clear Calc Est GFR (MDRD) Af Amer Cancelled Est GFR (MDRD) Non-Af Cancelled BUN/Creatinine Ratio Cancelled Glucose Cancelled Hemoglobin A1c Serum Osmolality Lactic Acid 1.5 Calcium Cancelled Phosphorus 4.1 Magnesium 2.0 Total Bilirubin 0.30 Direct Bilirubin 0.10 AST 69 H ALT 96 H Alkaline Phosphatase 70 Total Creatine Kinase Troponin I B-Natriuretic Peptide Total Protein 6.4 Albumin 3.5 Globulin 2.9 Triglycerides 37 TSH 1.65 Urine Color Urine Clarity Urine pH Ur Specific [place] Urine Protein Urine Glucose (UA) Urine Ketones Urine Occult Blood Urine Nitrite Urine Bilirubin Urine Urobilinogen Ur Leukocyte Esterase Urine RBC Urine WBC Ur Squamous Epith Cells Urine Bacteria Urine Mucus Urine Osmolality Ur Random Sodium Urine Creatinine MRSA (PCR) POC Glucose 05/28/19 05/28/19 05/28/19 03:15 04:00 04:15 WBC RBC Hgb Hct MCV MCH MCHC RDW Std Deviation RDW Coeff of Earline Plt Count MPV Immature Gran % (Auto) Neut % (Auto) Lymph % (Auto) [place] % (Auto) Eos % (Auto) Baso % (Auto) Absolute Neuts (auto) Absolute Lymphs (auto) Nucleated RBC % PT INR APTT Specimen Type Sample Site pH Bicarbonate Actual POC Total CO2 Base Excess O2 Saturation O2 % ABG pCO2 ABG pO2 Mo Test Respiration Rate O2 Delivery Device Minute Volume Vent Mode Tidal Volume POC PEEP EPAP IPAP Blood Gas Notified Whom Blood Gas Notified Time Sodium Potassium Chloride Carbon Dioxide Anion Gap BUN Creatinine Estim Creat Clear Calc Est GFR (MDRD) Af Amer Est GFR (MDRD) Non-Af BUN/Creatinine Ratio Glucose Hemoglobin A1c Serum Osmolality Lactic Acid Calcium Phosphorus Magnesium Total Bilirubin Direct Bilirubin AST ALT Alkaline Phosphatase Total Creatine Kinase 88 Troponin I B-Natriuretic Peptide Total Protein Albumin Globulin Triglycerides TSH Urine Color Yellow Urine Clarity Clear Urine pH 6.5 Ur Specific [place] 1.020 Urine Protein 100 H Urine Glucose (UA) 100 H Urine Ketones Negative Urine Occult Blood 25 H Urine Nitrite Negative Urine Bilirubin Negative Urine Urobilinogen Normal Ur Leukocyte Esterase Negative Urine RBC 0 SEEN Urine WBC 0 SEEN Ur Squamous Epith Cells 0 SEEN Urine Bacteria 0 SEEN Urine Mucus 0 SEEN Urine Osmolality Ur Random Sodium Urine Creatinine MRSA (PCR) Negative POC Glucose 05/28/19 05/28/19 05/28/19 04:15 04:15 04:15 WBC RBC Hgb Hct MCV MCH MCHC RDW Std Deviation RDW Coeff of Earline Plt Count MPV Immature Gran % (Auto) Neut % (Auto) Lymph % (Auto) [place] % (Auto) Eos % (Auto) Baso % (Auto) Absolute Neuts (auto) Absolute Lymphs (auto) Nucleated RBC % PT INR APTT Specimen Type Sample Site pH Bicarbonate Actual POC Total CO2 Base Excess O2 Saturation O2 % ABG pCO2 ABG pO2 Mo Test Respiration Rate O2 Delivery Device Minute Volume Vent Mode Tidal Volume POC PEEP EPAP IPAP Blood Gas Notified Whom Blood Gas Notified Time Sodium Potassium Chloride Carbon Dioxide Anion Gap BUN Creatinine Estim Creat Clear Calc Est GFR (MDRD) Af Amer Est GFR (MDRD) Non-Af BUN/Creatinine Ratio Glucose Hemoglobin A1c Serum Osmolality Lactic Acid Calcium Phosphorus Magnesium Total Bilirubin Direct Bilirubin AST ALT Alkaline Phosphatase Total Creatine Kinase Troponin I B-Natriuretic Peptide Total Protein Albumin Globulin Triglycerides TSH Urine Color Urine Clarity Urine pH Ur Specific [place] Urine Protein Urine Glucose (UA) Urine Ketones Urine Occult Blood Urine Nitrite Urine Bilirubin Urine Urobilinogen Ur Leukocyte Esterase Urine RBC Urine WBC Ur Squamous Epith Cells Urine Bacteria Urine Mucus Urine Osmolality 451 Ur Random Sodium 53 Urine Creatinine 74.10 MRSA (PCR) POC Glucose 05/28/19 05/28/19 05/28/19 05:37 06:03 11:49 WBC RBC Hgb Hct MCV MCH MCHC RDW Std Deviation RDW Coeff of Earline Plt Count MPV Immature Gran % (Auto) Neut % (Auto) Lymph % (Auto) [place] % (Auto) Eos % (Auto) Baso % (Auto) Absolute Neuts (auto) Absolute Lymphs (auto) Nucleated RBC % PT INR APTT Specimen Type ART Sample Site L Radial pH 7.29 L Bicarbonate Actual 29.2 H POC Total CO2 31 Base Excess 3 H O2 Saturation 94 L O2 % 50 ABG pCO2 60.8 H ABG pO2 80 Mo Test POS Respiration Rate 12 O2 Delivery Device Bi / C PAP Minute Volume Vent Mode Tidal Volume POC PEEP EPAP 6 IPAP 20 Blood Gas Notified Whom [facility] Blood Gas Notified Time 555 Sodium Potassium Chloride Carbon Dioxide Anion Gap BUN Creatinine Estim Creat Clear Calc Est GFR (MDRD) Af Amer Est GFR (MDRD) Non-Af BUN/Creatinine Ratio Glucose Hemoglobin A1c Serum Osmolality Lactic Acid Calcium Phosphorus Magnesium Total Bilirubin Direct Bilirubin AST ALT Alkaline Phosphatase Total Creatine Kinase Troponin I B-Natriuretic Peptide Total Protein Albumin Globulin Triglycerides TSH Urine Color Urine Clarity Urine pH Ur Specific [place] Urine Protein Urine Glucose (UA) Urine Ketones Urine Occult Blood Urine Nitrite Urine Bilirubin Urine Urobilinogen Ur Leukocyte Esterase Urine RBC Urine WBC Ur Squamous Epith Cells Urine Bacteria Urine Mucus Urine Osmolality Ur Random Sodium Urine Creatinine MRSA (PCR) POC Glucose 189 H 199 H 05/28/19 05/28/19 05/28/19 14:34 15:05 17:24 WBC RBC Hgb Hct MCV MCH MCHC RDW Std Deviation RDW Coeff of Earline Plt Count MPV Immature Gran % (Auto) Neut % (Auto) Lymph % (Auto) [place] % (Auto) Eos % (Auto) Baso % (Auto) Absolute Neuts (auto) Absolute Lymphs (auto) Nucleated RBC % PT INR APTT Specimen Type ART Sample Site L Radial pH 7.19 L* Bicarbonate Actual 27.2 H POC Total CO2 29 Base Excess -1 O2 Saturation 94 L O2 % 60 ABG pCO2 70.5 H* ABG pO2 88 Mo Test POS Respiration Rate 16 O2 Delivery Device Vent Minute Volume 8.00 Vent Mode A-C Tidal Volume 500 POC PEEP 5 EPAP IPAP Blood Gas Notified Whom ICU Blood Gas Notified Time 1445 Sodium 132 L Potassium 4.9 Chloride 99 Carbon Dioxide 27.0 Anion Gap 6 BUN 17 Creatinine 0.94 Estim Creat Clear Calc 54.67 Est GFR (MDRD) Af Amer 99 Est GFR (MDRD) Non-Af 82 BUN/Creatinine Ratio 18.1 Glucose 177 H Hemoglobin A1c Serum Osmolality Lactic Acid Calcium 8.3 L Phosphorus Magnesium Total Bilirubin Direct Bilirubin AST ALT Alkaline Phosphatase Total Creatine Kinase Troponin I B-Natriuretic Peptide Total Protein Albumin Globulin Triglycerides TSH Urine Color Urine Clarity Urine pH Ur Specific [place] Urine Protein Urine Glucose (UA) Urine Ketones Urine Occult Blood Urine Nitrite Urine Bilirubin Urine Urobilinogen Ur Leukocyte Esterase Urine RBC Urine WBC Ur Squamous Epith Cells Urine Bacteria Urine Mucus Urine Osmolality Ur Random Sodium Urine Creatinine MRSA (PCR) POC Glucose 153 H 05/28/19 05/28/19 05/29/19 19:20 23:20 04:50 WBC 10.0 RBC 3.76 L Hgb 11.3 L Hct 36.5 L MCV 97.1 H MCH 30.1 MCHC 31.0 L RDW Std Deviation 41.5 RDW Coeff of Earline 11.6 Plt Count 181 MPV 8.9 Immature Gran % (Auto) Neut % (Auto) Lymph % (Auto) [place] % (Auto) Eos % (Auto) Baso % (Auto) Absolute Neuts (auto) Absolute Lymphs (auto) Nucleated RBC % PT INR APTT Specimen Type ART Sample Site R Radial pH 7.29 L Bicarbonate Actual 29.5 H POC Total CO2 31 Base Excess 3 H O2 Saturation 88 L O2 % 50 ABG pCO2 61.2 H ABG pO2 62 L Mo Test POS Respiration Rate 14 O2 Delivery Device Vent Minute Volume 7.00 Vent Mode A-C Tidal Volume 500 POC PEEP 5 EPAP IPAP Blood Gas Notified Whom [facility] Blood Gas Notified Time 1914 Sodium Potassium Chloride Carbon Dioxide Anion Gap BUN Creatinine Estim Creat Clear Calc Est GFR (MDRD) Af Amer Est GFR (MDRD) Non-Af BUN/Creatinine Ratio Glucose Hemoglobin A1c Serum Osmolality Lactic Acid Calcium Phosphorus Magnesium Total Bilirubin Direct Bilirubin AST ALT Alkaline Phosphatase Total Creatine Kinase Troponin I B-Natriuretic Peptide Total Protein Albumin Globulin Triglycerides TSH Urine Color Urine Clarity Urine pH Ur Specific [place] Urine Protein Urine Glucose (UA) Urine Ketones Urine Occult Blood Urine Nitrite Urine Bilirubin Urine Urobilinogen Ur Leukocyte Esterase Urine RBC Urine WBC Ur Squamous Epith Cells Urine Bacteria Urine Mucus Urine Osmolality Ur Random Sodium Urine Creatinine MRSA (PCR) POC Glucose 141 H 05/29/19 05/29/19 04:50 05:24 WBC RBC Hgb Hct MCV MCH MCHC RDW Std Deviation RDW Coeff of Earline Plt Count MPV Immature Gran % (Auto) Neut % (Auto) Lymph % (Auto) [place] % (Auto) Eos % (Auto) Baso % (Auto) Absolute Neuts (auto) Absolute Lymphs (auto) Nucleated RBC % PT INR APTT Specimen Type Sample Site pH Bicarbonate Actual POC Total CO2 Base Excess O2 Saturation O2 % ABG pCO2 ABG pO2 Mo Test Respiration Rate O2 Delivery Device Minute Volume Vent Mode Tidal Volume POC PEEP EPAP IPAP Blood Gas Notified Whom Blood Gas Notified Time Sodium 133 L Potassium 5.1 Chloride 99 Carbon Dioxide 32.0 Anion Gap 2 L BUN 19 H Creatinine 0.60 L Estim Creat Clear Calc 51.39 Est GFR (MDRD) Af Amer 164 Est GFR (MDRD) Non-Af 136 BUN/Creatinine Ratio 31.5 H Glucose 153 H Hemoglobin A1c Serum Osmolality Lactic Acid Calcium 8.5 Phosphorus Magnesium Total Bilirubin Direct Bilirubin AST ALT Alkaline Phosphatase Total Creatine Kinase Troponin I B-Natriuretic Peptide Total Protein Albumin Globulin Triglycerides TSH Urine Color Urine Clarity Urine pH Ur Specific [place] Urine Protein Urine Glucose (UA) Urine Ketones Urine Occult Blood Urine Nitrite Urine Bilirubin Urine Urobilinogen Ur Leukocyte Esterase Urine RBC Urine WBC Ur Squamous Epith Cells Urine Bacteria Urine Mucus Urine Osmolality Ur Random Sodium Urine Creatinine MRSA (PCR) POC Glucose 154 H Microbiology 05/28/19 14:15 Sputum, Induced/Lukens Gram Stain - Final 05/28/19 09:30 Sputum, Expectorated/Coughed Gram Stain - Final 05/28/19 08:55 Mucosa - Nasopharyngeal Respiratory Panel (PCR) - Final 05/28/19 04:15 Urine Catheter - Catheter Streptococcus pneumoniae Antigen (M - Final 05/28/19 04:15 Urine Catheter - Catheter Legionella Antigen - Final 05/28/19 02:15 Mucosa - Nose Influenza Types A,B Direct FA (STEVE) - Final Clinical Impression(s) from Imaging Studies Chest X-Ray 05/27/19 23:38 IMPRESSION: Chronic interstitial lung disease without significant change since the previous study. Electronically Signed: Swetha Tracy, at 0:34 EDT Tel , Service support , Chest CTA 05/28/19 01:08 IMPRESSION: No demonstrated pulmonary embolism or arterial dissection. Possible pulmonary edema or bilateral pneumonia. Small bilateral pleural effusions. There is irregular mass in the right lower lobe measures approximately 6.2 x 5.6 cm most likely represent a neoplasm. Electronically Signed: Swetha Tracy, at 2:13 EDT Tel , Service support , Chest X-Ray 05/28/19 13:39 IMPRESSION: The tip of the endotracheal tube is at 6.7 cm proximal to nicole. The tip of the orogastric tube is in the distal body of the stomach. Improved aeration of both lung bases with residual infiltrates worse on the right side. Electronically Signed: Caleb Hartman, at 14:32 EDT , Service support , Chest X-Ray 05/28/19 17:45 Medical Necessity - Tobacco Use Smoking Status: Former smoker Tobacco Use: Cigarettes, Cigars Assessment/Plan All Active Problems (Last Reviewed 05/28/19 @ 02:11 by Jacobo Unger MD) Severe sepsis (Acute) Sepsis (Acute) COPD exacerbation (Acute) Dyspnea (Acute) Acute exacerbation of chronic obstructive pulmonary disease (COPD) (Resolved) Acute on chronic diastolic (congestive) heart failure (Resolved) Acute respiratory failure with hypoxia and hypercapnia (Resolved) Bilateral pneumonia (Resolved) CAP (community acquired pneumonia) (Resolved) Dehydration (Resolved) Drug rash (Resolved) Hyperglycemia (Resolved) Hyponatremia (Resolved) Hypotension (Resolved) Pulmonary congestion (Resolved) Severe sepsis (Resolved) RECOMMENDATIONS: 1. Continue broad-spectrum antimicrobial coverage, pending finalized infectious work-up. 2. Obtain repeat arterial blood gas this morning. Continue transcutaneous CO2 monitoring. 3. Wean FiO2 as tolerated to maintain an oxygen saturation at or above 90%. 4. Start tube feeds today. 5. Continue bronchodilators and steroids as ordered. 6. Wean vasopressor support to maintain a MAP at or above 65 mmHg. 7. Continue appropriate ICU prophylaxis. IMPRESSIONS: 1. Acute on chronic combined respiratory failure Likely secondary to COPD with exacerbation with concern for underlying pulmonary infectious process. The patient was subsequently placed on broad-spectrum antimicrobial coverage. Initial attempts at the use of noninvasive positive pressure ventilatory support eventually proved to be unsuccessful and the patient required intubation on May 28. The patient did have bilateral groundglass changes noted on CTA chest. He has evidence of a severe airflow obstruction based upon PFTs completed through the [facility]. The patient will be continued on broad-spectrum antimicrobials, pending infectious work-up. Continue bronchodilators and steroids as ordered. 2. Septic shock secondary to community-acquired versus aspiration pneumonia Continue current supportive measures as noted above with broad-spectrum antimicrobial coverage and vasopressor support in an attempt to maintain a mean arterial pressure at or above 65 mmHg. Antibiotics can be de-escalated, once sputum Gram stain has resulted. 3. 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 There has been no evidence of cancer recurrence according to the patient's pulmonary provider at [facility]. 4. 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 5. Pulmonary hypertension/hypertension/hyperlipidemia/advanced age/CODE STATUS Complicates care, management, recovery and prognosis. Physical therapy to work with patient as tolerated. Goals of care/CODE STATUS was discussed with the patient prior to intubation and he wished to remain full code. TIME: 40 minutes of critical care time, independent of procedures, was spent addressing the patient's acute on chronic combined respiratory failure, COPD with exacerbation, septic shock, history of non-small cell lung cancer, right lower lobe masslike density, congestive heart failure, review of all data and collaboration with the care team. ([id number]) Code Visit [id number]: [id number] Critical care first hour
--- NOTE | 2019-05-29 06:55 | PN_ITS ---
Patient Problems: Active and Suspected Problems (Last Reviewed 05/28/19 @ 02:11 by Jacobo Unger MD) Severe sepsis (Acute) Sepsis (Acute) COPD exacerbation (Acute) Subjective: Day #2 ventilator Day #2 vancomycin and Merrem All events of the past 24 hours been reviewed. T-max over the past 24 hours is 100.3 ?F core temp Heart rate is within normal limits. Blood pressure has ranged from 95/50 2-1 60/87 for the past 12 hours. Has intermittently required Levophed for low pressures. He is maintaining an oxygen saturation of 92% on a 55% FiO2. Fluid balance on 05/28/2019 was +3757. All lab was personally reviewed. White blood cell count is 10.0. Hemoglobin is 11.3 and platelets are within normal limits. Sodium is mildly decreased at 133. Potassium is 5.1. The BUN is 19 with a creatinine of 0.6, down from 0 point 04/09 and 05/28/2019. ABG on assist control with a tidal volume of 500 and PEEP of 5 shows a pH of 7.33, PCO2 of 56 and a PO2 of 66 on a 50% FiO2. Blood sugars are adequately controlled. He is sedated but arouses easily and appropriately answering yes and no questions. Denies pain and denies air hunger. He feels comfortable currently. Appears calm and not anxious. - Physical Exam Vitals/I&O's: Vital Signs Temp Pulse Resp BP Pulse Ox 99.4 F H 77 17 93/54 L 92 05/29/19 06:00 05/29/19 06:00 05/29/19 06:00 05/29/19 06:00 05/29/19 06:00 Oxygen Flow Rate (L/min) 6 Oxygen Delivery Method Mechanical Ventilator Weight: 158 lb 1.143 oz Body Mass Index (BMI) 24.3 Intake and Output for Last 24 Hours 05/27/19 05/28/19 05/29/19 23:59 23:59 23:59 Intake Total 4832.63 / 4832.63 574.50 / 574.50 Output Total 1075 / 1075 250 / 250 Balance 3757.63 / 3757.63 324.50 / 324.50 General: Cooperative, No apparent distress, - - Sedated and mechanically ventilated. Arouses easily when you call his name. HEENT: PERRLA, Normocephalic Neck: No JVD, No Nodes, Trachea Midline Lungs: Clear to auscultation - Anterior and lateral, No rhonchi, No wheeze, No rales Cardiovascular: Regular rate, Regular Rhythm, Murmur - No change in the aortic stenosis murmur at the second right intercostal space which radiates to the lower left sternal border, left ventricular outflow tract and apex. There is also left axillary murmur., - - Telemetry shows paced rhythm with occasional PVCs Abdomen: Bowel Sounds Present, Soft, Non Tender, Non-Distended Extremities: No cyanosis, No Calf Tenderness, Edema - Trace edema of the ankles Skin: - - Feet are warm to touch. There are many superficial varicosities. Neurological: Cranial nerves II-XII grossly intact, Neuro grossly intact Microbiology Past 72 Hours 05/28/19 14:15 Sputum, Induced/Lukens Gram Stain - Final 05/28/19 09:30 Sputum, Expectorated/Coughed Gram Stain - Final 05/28/19 08:55 Mucosa - Nasopharyngeal Respiratory Panel (PCR) - Final 05/28/19 04:15 Urine Catheter - Catheter Streptococcus pneumoniae Antigen (M - Final 05/28/19 04:15 Urine Catheter - Catheter Legionella Antigen - Final 05/28/19 02:15 Mucosa - Nose Influenza Types A,B Direct FA (STEVE) - Final Laboratory Results 05/27/19 23:40: Serum Osmolality 280 05/28/19 03:15: Phosphorus 4.1, Magnesium 2.0, Total Bilirubin 0.30, Direct Bilirubin 0.10, AST 69 H, ALT 96 H, Alkaline Phosphatase 70, Total Protein 6.4, Albumin 3.5, Globulin 2.9, TSH 1.65 05/28/19 03:15: Sodium Cancelled, Potassium Cancelled, Chloride Cancelled, Carbon Dioxide Cancelled, Anion Gap Cancelled, BUN Cancelled, Creatinine Cancelled, Est GFR (MDRD) Af Amer Cancelled, Est GFR (MDRD) Non-Af Cancelled, BUN/Creatinine Ratio Cancelled, Glucose Cancelled, Calcium Cancelled, Triglycerides 37 05/28/19 03:15: Total Creatine Kinase 88 05/28/19 04:15: Urine Osmolality 451 05/28/19 04:15: Urine Creatinine 74.10 05/28/19 04:15: Ur Random Sodium 53 05/28/19 11:49: POC Glucose 199 H 05/28/19 14:34: Specimen Type ART, Sample Site L Radial, pH 7.19 L*, Bicarbonate Actual 27.2 H, POC Total CO2 29, Base Excess -1, O2 Saturation 94 L, O2 % 60, ABG pCO2 70.5 H*, ABG pO2 88, Mo Test POS, Respiration Rate 16, O2 Delivery Device Vent, Minute Volume 8.00, Vent Mode A-C, Tidal Volume 500, POC PEEP 5, Blood Gas Notified Whom ICU , Blood Gas Notified Time 1445 05/28/19 15:05: Sodium 132 L, Potassium 4.9, Chloride 99, Carbon Dioxide 27.0, Anion Gap 6, BUN 17, Creatinine 0.94, Estim Creat Clear Calc 54.67, Est GFR (MDRD) Af Amer 99, Est GFR (MDRD) Non-Af 82, BUN/Creatinine Ratio 18.1, Glucose 177 H, Calcium 8.3 L 05/28/19 17:24: POC Glucose 153 H 05/28/19 19:20: Specimen Type ART, Sample Site R Radial, pH 7.29 L, Bicarbonate Actual 29.5 H, POC Total CO2 31, Base Excess 3 H, O2 Saturation 88 L, O2 % 50, ABG pCO2 61.2 H, ABG pO2 62 L, Mo Test POS, Respiration Rate 14, O2 Delivery Device Vent, Minute Volume 7.00, Vent Mode A-C, Tidal Volume 500, POC PEEP 5, Blood Gas Notified Whom HOSP , Blood Gas Notified Time 19105/28/19 23:20: POC Glucose 141 H 05/29/19 04:50: WBC 10.0, RBC 3.76 L, Hgb 11.3 L, Hct 36.5 L, MCV 97.1 H, MCH 30.1, MCHC 31.0 L, RDW Std Deviation 41.5, RDW Coeff of Earline 11.6, Plt Count 181, MPV 8.9 05/29/19 04:50: Sodium 133 L, Potassium 5.1, Chloride 99, Carbon Dioxide 32.0, Anion Gap 2 L, BUN 19 H, Creatinine 0.60 L, Estim Creat Clear Calc 51.39, Est GFR (MDRD) Af Amer 164, Est GFR (MDRD) Non-Af 136, BUN/Creatinine Ratio 31.5 H, Glucose 153 H, Calcium 8.5 05/29/19 05:24: POC Glucose 154 H Current Medications Albuterol Sulfate (Ventolin Aerosols) 2.5 mg INHALATION Q2H PRN PRN PRN Reason: SHORTNESS OF BREATH Chlorhexidine Gluconate () 15 ml PO BID [facility] Last Admin: 05/28/19 21:15 Dose: 15 ml Documented by: Chlorhexidine Gluconate () 1 each TOPICAL DAILY [facility] Last Admin: 05/28/19 18:00 Dose: 1 each Documented by: Dextrose (D50w Syringe) 0 gm IV X1 PRN; Protocol PRN Reason: Hypoglycemia Enoxaparin Sodium (Lovenox) 40 mg SC DAILY@1000 [facility] Last Admin: 05/28/19 09:59 Dose: 40 mg Documented by: Famotidine (Pepcid) 20 mg GT BID [facility] Last Admin: 05/28/19 21:21 Dose: 20 mg Documented by: Fentanyl Citrate (Sublimaze (100mcg Ampule)) 25 mcg IV Q2H PRN PRN PRN Reason: ANXIETY Last Admin: 05/28/19 11:55 Dose: 25 mcg Documented by: Glucagon () 1 mg IM .X1 PRN PRN Reason: Hypoglycemia Sodium Chloride () 250 mls @ 15 mls/hr IV .[id number] PRN PRN Reason: Saline Flush Last Infusion: 05/28/19 18:42 Dose: 15 mls/hr Documented by: Meropenem 1 gm/ Sodium (Chloride) 120 mls @ 33 mls/hr IV Q8 [facility] Last Admin: 05/29/19 05:05 Dose: 33 mls/hr Documented by: Propofol (Diprivan) 1,000 mg in 100 mls @ 4.302 mls/hr CONT INF .Q12H [facility]; Protocol Last Titration: 05/29/19 06:15 Dose: 15 mcg/kg/min, 6.2 mls/hr Documented by: Fentanyl () 100 mls @ 5 mls/hr IV UD [facility]; Protocol Last Titration: 05/29/19 06:15 Dose: 100 mcg/hr, 10 mls/hr Documented by: Vancomycin IV Pharmacy to Dose (1 ea/ Sodium Chloride) 500 mls @ 250 mls/hr IV X1 PRN; Protocol PRN Reason: Rx to Dose Sodium Chloride () 250 mls @ 15 mls/hr IV .[id number] PRN PRN Reason: Saline Flush Last Infusion: 05/28/19 19:28 Dose: 15 mls/hr Documented by: Norepinephrine Bitartrate 8 mg (/ Sodium Chloride) 250 mls @ 9.375 mls/hr CONT INF .[id number] [facility]; Protocol Last Titration: 05/29/19 05:45 Dose: 0 mcg/min, 0 mls/hr Documented by: Vancomycin HCl 750 mg/ Sodium (Chloride) 265 mls @ 250 mls/hr IV Q12H [facility] Last Infusion: 05/29/19 05:47 Dose: Infused Documented by: Insulin Human Lispro (Humalog Kwikpen (Bkc)) 0 unit SC Q6 [facility]; Protocol Last Admin: 05/29/19 05:25 Dose: 1 u Documented by: Ipratropium [place] (Atrovent) 0.5 mg INHALATION Q4H.RT [facility] Last Admin: 05/29/19 03:35 Dose: 0.5 mg Documented by: Methylprednisolone (Solu-Medrol) 40 mg IV Q8 [facility] Last Admin: 05/29/19 05:00 Dose: 40 mg Documented by: Ondansetron HCl (Zofran) 4 mg IV Q8H PRN PRN PRN Reason: NAUSEA/VOMITING Senna/Docusate Sodium (Senokot-S, Angeli-Colace) 2 tablet GT BID [facility] Last Admin: 05/28/19 21:18 Dose: 2 tablet Documented by: Sertraline HCl (Zoloft) 50 mg GT DAILY [facility] Sodium Chloride () 10 - 40 ml IV UD PRN PRN Reason: SALINE FLUSH Last Admin: 05/29/19 05:00 Dose: 40 ml Documented by: Sodium Chloride (0.9% Nacl (Sterile) Posiflush) 10 - 40 ml IV UD PRN PRN Reason: Port access or dressing change Medical Necessity - Tobacco Use Smoking Status: Former smoker Tobacco Use: Cigarettes, Cigars Assessment/Plan All Active Problems (Last Reviewed 05/28/19 @ 02:11 by Jacobo Unger MD) Severe sepsis (Acute) Sepsis (Acute) COPD exacerbation (Acute) Dyspnea (Acute) Acute exacerbation of chronic obstructive pulmonary disease (COPD) (Resolved) Acute on chronic diastolic (congestive) heart failure (Resolved) Acute respiratory failure with hypoxia and hypercapnia (Resolved) Bilateral pneumonia (Resolved) CAP (community acquired pneumonia) (Resolved) Dehydration (Resolved) Drug rash (Resolved) Hyperglycemia (Resolved) Hyponatremia (Resolved) Hypotension (Resolved) Pulmonary congestion (Resolved) Severe sepsis (Resolved) Day #2 meropenem and vancomycin Impressions 1. Septic shock with acute on chronic combined respiratory failure more likely than not secondary to aspiration pneumonia. Levaquin DC'd and he has been started on Broad spectrum antibiotics, merrem and Vanco. Need to be careful with fluids in light of the moderate - severe and severe Pulmonary HTN 2. chronic dysphagia - seen by ST. MBS and esophagram were planned for 05/29 but he decompensated and requires intubation. will need a MBS and esophagram prior to any attempts to feed following extubation. 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 acute Pneumonia - suspect aspiration. Antibiotics broadened. Legionella and streptococcal antigens in the urine are negative. Influenza is negative. Respiratory panel is negative. Sputum Gram stain shows 3+ gram-positive cocci in clusters and chains. MRSA nasal screen was negative. Blood cultures have no growth as of yet. 4. generalized anxiety with panic attacks chronically at home - will maintain on sertraline and Buspar while he is on the vent. 5. History of non-small cell lung cancer-treated with radiation and sometimes follows at [facility] [place] and sometimes at [place]. 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 Severe centrilobular bullous emphysema 7. Severe pulmonary hypertension with a right ventricular systolic pressure estimated at 78 on echocardiogram in October 2018. 8. Cardiomyopathy with a 45% EF in October 2018 9. Moderate to severe aortic valve stenosis with evidence of diastolic dysfunction 10. 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 Hyponatremia-resolved 12. enoxaparin for DVT prophylaxis. Continue ESTEBAN huggins and SCDs. Pepcid for GI prophylaxis. Start TF today. Discussed on rounds with Dr. Mccartney and the ICU team. Code Visit Inpatient E&M: 43105 [facility] L3
[2019-05-29 06:56] LABS: Allen Test POS; Base Excess 4 mmol/L (-2 to +2); Bicarbonate 29.5 mmol/L (22-26); Blood Gas Specimen Type ART; FI02 50; Mode A-C; O2 Delivery Device Vent; PEEP 5; PO2 66 mmHG (75-100); RR 14; SITE R Radial; SO2 91 % (95-99); Time Given 650; Total Carbon Dioxide 31 mmol/L; Vt 500; pCO2 56.4 mmHg (35-45); pH 7.33 (7.35-7.45)
[2019-05-29] MEDS: Chlorhexidine 15 ML PO ×2 (08:11→21:21)
[2019-05-29] MEDS: CHLORHEXIDINE GLUC 2% CLOTH 1 EACH TOWELETTE TOPICAL (08:11)
[2019-05-29] MEDS: Enoxaparin 40 MG/0.4 ML Syringe SC (08:19)
[2019-05-29] MEDS: Famotidine 20 MG Tablet GT ×2 (08:20→21:21)
[2019-05-29] MEDS: Sertraline 50 MG Tablet GT (08:21)
[2019-05-29] MEDS: Senna/Docusate Sodium 1 Tablet 2 TABLET GT ×2 (08:21→21:20)
--- NOTE | 2019-05-29 09:53 | CASEMGMT ---
SW participated in ICU rounds. SW introduced self to after rounds, support offered. SW remains available for any supportive needs to family. VISHAL Contreras
[2019-05-29] MEDS: Vital AF 1.2 Cal Liquid 1,000 ML 20 ML GT (10:39)
[2019-05-29] MEDS: fentaNYL drip 100 ML 10 MCG IV ×2 (10:41→20:43)
[2019-05-29 11:26] LABS: Bedside Glucose 136 mg/dL (70-110)
[2019-05-29] MEDS: busPIRone 5 MG Tablet PO ×3 (11:28→21:21)
--- NOTE | 2019-05-29 14:06 | CHAPLAIN ---
Type of Pastoral Visit ___ Initial Visit _x__ Follow-up Visit ___ On-call Visit ___ General Patient Visit ___ Spiritual Assessment ___ Family Conference ___ Bereavement ___ Rapid Response ___ Code Blue ___ Other (describe below) Pastoral Care Referral From ___ Patient ___ Family ___ Nurse ___ Physician ___ Grain Sacker ___ Activity Assistant ___ Other (describe below) Sacrament/Intervention ___ Active listening ___ Anointing ___ Anglican ___ Bereavement ___ Communion ___ Teena exploration ___ ___ Life review ___ Prayer ___ Reconciliation ___ Sacrament of Sick _x__ Supportive presence ___ Wedding ___ Other (describe below) Pastoral Comments spouse is in room and offer of support given; pt is intubated
[2019-05-29] MEDS: Propofol 10MG/Ml 1,000 MG/100 ML Bottle 6.5 MG CONT INF (14:41)
[2019-05-29 16:55] LABS: Bedside Glucose 135 mg/dL (70-110)
--- NOTE | 2019-05-29 20:47 | NURSING ---
Changed Fentanyl bag. There was clearly 7.5ml to waste, but the titration would not let this RN put in 7.5ml. It kept saying there was only 6.49ml to waste. Wasted 7.5ml of Fentanyl with Benja Mojica RN.
[2019-05-29] MEDS: TITRATION PARAMETER CHANGE 1 EACH IV (22:00)
[2019-05-29 23:40] LABS: Bedside Glucose 154 mg/dL (70-110)
[2019-05-30] VITALS (45 sets, daily range): BP systolic 103–169; BP diastolic 48–93; PULSE 60–110; RESP 13–23; TEMP 36.7–37.4; O2SAT 91–100
[2019-05-30] MEDS: Propofol 10MG/Ml 1,000 MG/100 ML Bottle 6.5 MG CONT INF (01:54)
[2019-05-30] MEDS: CHLORHEXIDINE GLUC 2% CLOTH 1 EACH TOWELETTE TOPICAL (02:06)
[2019-05-30] MEDS: Ipratropium 0.5 MG/2.5 ML SOLUTION INHALATION ×6 (03:25→22:40)
[2019-05-30 04:48] LABS: Anion Gap 2 (5-15); BUN 22 mg/dL (7-18); BUN/Creat Ratio 44.3 RATIO (10-20); Calcium,Total 8.2 mg/dL (8.5-10.1); Chloride 98 mmol/L (98-107); EST Glomerular Filtration Rate 170 mL/min (>60); Est Glom Filt Rate - Afr Amer 206 mL/min (>60); Estimated Creatinine Clearance 51.39 ml/min; Glucose 162 mg/dL (74-106); Phosphorus 2.6 mg/dL (2.5-4.9); Potassium 4.9 mmol/L (3.5-5.1); Sodium Level 134 mmol/L (136-145)
[2019-05-30] MEDS: 0.9% Saline Lock 10 ML Syringe IV ×2 (05:03→10:06)
[2019-05-30 05:06] LABS: Vancomycin, Trough Level 7.1 ug/mL (5.0-15.0)
[2019-05-30] MEDS: busPIRone 5 MG Tablet PO ×3 (05:11→21:15)
[2019-05-30] MEDS: TITRATION PARAMETER CHANGE 1 EACH IV (05:24)
--- NOTE | 2019-05-30 05:29 | PCM.RX.CS ---
Consult Pharmacy has been consulted to manage selected antiobiotic: Vancomycin Type of Consult: Follow-up Suspected Infection: Sepsis, Pneumonia Labs: Sodium 134 mmol/L (136-145) L 05/30/19 04:05 Potassium 4.9 mmol/L (3.5-5.1) 05/30/19 04:05 Chloride 98 mmol/L (98-107) 05/30/19 04:05 Carbon Dioxide 34.0 mmol/L (21.0-32.0) H 05/30/19 04:05 Anion Gap 2 (5-15) L 05/30/19 04:05 BUN 22 mg/dL (7-18) H 05/30/19 04:05 Creatinine 0.50 mg/dL (0.70-1.30) L 05/30/19 04:05 Est GFR (MDRD) Af Amer 206 mL/min (>60) 05/30/19 04:05 Est GFR (MDRD) Non-Af 170 mL/min (>60) 05/30/19 04:05 BUN/Creatinine Ratio 44.3 RATIO (10-20) H 05/30/19 04:05 Glucose 162 mg/dL (74-106) H 05/30/19 04:05 Vancomycin Trough 7.1 ug/mL (5.0-15.0) 05/30/19 04:05 Microbiology: Microbiology 05/28/19 14:15 Sputum, Induced/Lukens Gram Stain - Final 05/28/19 14:15 Sputum, Induced/Lukens Respiratory Culture - Preliminary Appears to be normal respiratory james. Further studies to follow. 05/28/19 09:30 Sputum, Expectorated/Coughed Gram Stain - Final 05/28/19 09:30 Sputum, Expectorated/Coughed Respiratory Culture - Preliminary Appears to be normal respiratory james. Further studies to follow. 05/28/19 04:15 Urine, Catheterized Urine Culture - Preliminary Culture exhibits no growth. 05/28/19 08:55 Mucosa - Nasopharyngeal Respiratory Panel (PCR) - Final 05/28/19 04:15 Urine Catheter - Catheter Streptococcus pneumoniae Antigen (M - Final 05/28/19 04:15 Urine Catheter - Catheter Legionella Antigen - Final 05/28/19 02:15 Mucosa - Nose Influenza Types A,B Direct FA (STEVE) - Final Goal Trough: 15-20 mcg/mL Pharmacy Plan for Drug Dosing: Pharmacy Service will continue to monitor and adjust dosing as required. Medications Vancomycin HCl 1,500 mg/ (Sodium Chloride) 530 mls @ 250 mls/hr IV Q12H [facility] TROUGH 7.1 GOAL 15-20 NEW DOSE 1500 Q12H NEXT TROUGH 05/30 @ 1700 Follow-Up Labs: Trough Vancomycin Labs to be done on [date and time ordered]: 05/30 @ 1700
[2019-05-30] MEDS: Insulin Lispro 100 UNIT/ML INSULN.PEN SC ×3 (05:43→17:39)
[2019-05-30 06:06] LABS: Bedside Glucose 186 mg/dL (70-110)
--- NOTE | 2019-05-30 06:38 | PCM.PN.INT ---
Subjective: The patient was seen and examined at the bedside this morning. Events from the last 24 hours have been reviewed. The patient is currently afebrile, hemodynamically stable and maintaining appropriate oxygen saturations on assist control mode of mechanical ventilation with an FiO2 requirement of 45%. The patient's Levophed was able to be discontinued at 0300 hrs. The patient failed his spontaneous awakening/breathing trial this morning due to the development of tachycardia and tachypnea proximally 30 minutes into the breathing trial. The patient is currently documented to be overall net +5.9 L for the admission. Objective: The patient's most recent lab work, culture data and imaging studies have all been personally reviewed. Infectious work-up has been unrevealing to date. OUTSIDE MEDICAL RECORDS FROM [facility]: (Obtained during October Hospital Admission) Pulmonary medicine office visit on August 29, [address] Li: Reports that patient is using Anoro daily. Also reported worsening dysphagia with concern that patient may need to be seen again by GI for potential EGD and dilation. The patient does have a history of lung cancer of the right lower lobe ([id number]), s/p SBRT completed 10/19/2015. Follow-up PET scan from June 2017 revealed resolution of the right lower lobe mass. CT chest from June 2018 revealed no evidence of recurrence. CT chest without contrast dated June 2018 revealed significant bilateral emphysema, stable calcified biapical scarring, most pronounced in the right apex. There was demonstration of an ill-defined region of consolidation in the right lung base with radiating bands of scar/fibrosis and associated volume loss, consistent with post radiation fibrosis. There was a stable appearing 5 mm nodule in the left lower lobe. A follow-up office visit with Dr. Li occurred on May 17, 2019 The patient was documented to be having episodes of choking when drinking water. The patient was documented to have severe COPD. 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 A CT chest was just completed through the [facility] on May 16, which demonstrated no signs of cancer recurrence. General: - - Remains intubated, sedated and mechanically ventilated. HEENT: Atraumatic, PERRLA, Normocephalic Oral: No Gingival or Mucosal Lesions/ Ulcerations, - - Endotracheal and OG tubes remain in place Neck: Supple, No Nodes, Trachea Midline, - - Right triple-lumen catheter in place Lungs: No rhonchi, No wheeze, No rales, Diminished Cardiovascular: Regular rate, Regular Rhythm, Normal S1, Normal S2, Murmur Abdomen: Bowel Sounds Present, Soft, Non Tender Extremities: No clubbing, No cyanosis, Edema Skin: No breakdown Musculoskeletal: No Tenderness to Palpation of Joints or Extremities Lymphatic: No Cervical, Supraclavicular, or Inguinal Adenopathy Neurological: - - No focal neurological deficits. Vital Signs Temp Pulse Resp BP Pulse Ox 99.1 F 100 22 H 124/64 H 94 05/30/19 06:00 05/30/19 06:00 05/30/19 06:00 05/30/19 06:00 05/30/19 06:00 Oxygen Flow Rate (L/min) 50 Oxygen Delivery Method Mechanical Ventilator Weight: 162 lb 0.636 oz Body Mass Index (BMI) 24.3 Intake and Output for Last 24 Hours 05/28/19 05/29/19 05/30/19 23:59 23:59 23:59 Intake Total 4832.63 / 4832.63 2561.85 / 2562.80 691.07 / 691.07 Output Total 1075 / 1075 850 / 850 250 / 250 Balance 3757.63 / 3757.63 1711.85 / 1712.80 441.07 / 441.07 Labs (Last 48 Hours) 05/27/19 05/28/19 05/28/19 23:40 03:15 03:15 WBC RBC Hgb Hct MCV MCH MCHC RDW Std Deviation RDW Coeff of Earline Plt Count MPV Specimen Type Sample Site pH Bicarbonate Actual POC Total CO2 Base Excess O2 Saturation O2 % ABG pCO2 ABG pO2 Mo Test Respiration Rate O2 Delivery Device Minute Volume Vent Mode Tidal Volume POC PEEP Blood Gas Notified Whom Blood Gas Notified Time Sodium Cancelled Potassium Cancelled Chloride Cancelled Carbon Dioxide Cancelled Anion Gap Cancelled BUN Cancelled Creatinine Cancelled Estim Creat Clear Calc Est GFR (MDRD) Af Amer Cancelled Est GFR (MDRD) Non-Af Cancelled BUN/Creatinine Ratio Cancelled Glucose Cancelled Serum Osmolality 280 Calcium Cancelled Phosphorus 4.1 Magnesium 2.0 Total Bilirubin 0.30 Direct Bilirubin 0.10 AST 69 H ALT 96 H Alkaline Phosphatase 70 Total Creatine Kinase Total Protein 6.4 Albumin 3.5 Globulin 2.9 Triglycerides 37 TSH 1.65 Urine Osmolality Ur Random Sodium Urine Creatinine Vancomycin Trough POC Glucose 05/28/19 05/28/19 05/28/19 03:15 04:15 04:15 WBC RBC Hgb Hct MCV MCH MCHC RDW Std Deviation RDW Coeff of Earline Plt Count MPV Specimen Type Sample Site pH Bicarbonate Actual POC Total CO2 Base Excess O2 Saturation O2 % ABG pCO2 ABG pO2 Mo Test Respiration Rate O2 Delivery Device Minute Volume Vent Mode Tidal Volume POC PEEP Blood Gas Notified Whom Blood Gas Notified Time Sodium Potassium Chloride Carbon Dioxide Anion Gap BUN Creatinine Estim Creat Clear Calc Est GFR (MDRD) Af Amer Est GFR (MDRD) Non-Af BUN/Creatinine Ratio Glucose Serum Osmolality Calcium Phosphorus Magnesium Total Bilirubin Direct Bilirubin AST ALT Alkaline Phosphatase Total Creatine Kinase 88 Total Protein Albumin Globulin Triglycerides TSH Urine Osmolality 451 Ur Random Sodium Urine Creatinine 74.10 Vancomycin Trough POC Glucose 05/28/19 05/28/19 05/28/19 04:15 11:49 14:34 WBC RBC Hgb Hct MCV MCH MCHC RDW Std Deviation RDW Coeff of Earline Plt Count MPV Specimen Type ART Sample Site L Radial pH 7.19 L* Bicarbonate Actual 27.2 H POC Total CO2 29 Base Excess -1 O2 Saturation 94 L O2 % 60 ABG pCO2 70.5 H* ABG pO2 88 Mo Test POS Respiration Rate 16 O2 Delivery Device Vent Minute Volume 8.00 Vent Mode A-C Tidal Volume 500 POC PEEP 5 Blood Gas Notified Whom ICU MD Blood Gas Notified Time 1445 Sodium Potassium Chloride Carbon Dioxide Anion Gap BUN Creatinine Estim Creat Clear Calc Est GFR (MDRD) Af Amer Est GFR (MDRD) Non-Af BUN/Creatinine Ratio Glucose Serum Osmolality Calcium Phosphorus Magnesium Total Bilirubin Direct Bilirubin AST ALT Alkaline Phosphatase Total Creatine Kinase Total Protein Albumin Globulin Triglycerides TSH Urine Osmolality Ur Random Sodium 53 Urine Creatinine Vancomycin Trough POC Glucose 199 H 05/28/19 05/28/19 05/28/19 15:05 17:24 19:20 WBC RBC Hgb Hct MCV MCH MCHC RDW Std Deviation RDW Coeff of Earline Plt Count MPV Specimen Type ART Sample Site R Radial pH 7.29 L Bicarbonate Actual 29.5 H POC Total CO2 31 Base Excess 3 H O2 Saturation 88 L O2 % 50 ABG pCO2 61.2 H ABG pO2 62 L Mo Test POS Respiration Rate 14 O2 Delivery Device Vent Minute Volume 7.00 Vent Mode A-C Tidal Volume 500 POC PEEP 5 Blood Gas Notified Whom HOSP Blood Gas Notified Time 191 Sodium 132 L Potassium 4.9 Chloride 99 Carbon Dioxide 27.0 Anion Gap 6 BUN 17 Creatinine 0.94 Estim Creat Clear Calc 54.67 Est GFR (MDRD) Af Amer 99 Est GFR (MDRD) Non-Af 82 BUN/Creatinine Ratio 18.1 Glucose 177 H Serum Osmolality Calcium 8.3 L Phosphorus Magnesium Total Bilirubin Direct Bilirubin AST ALT Alkaline Phosphatase Total Creatine Kinase Total Protein Albumin Globulin Triglycerides TSH Urine Osmolality Ur Random Sodium Urine Creatinine Vancomycin Trough POC Glucose 153 H 05/28/19 05/29/19 05/29/19 23:20 04:50 04:50 WBC 10.0 RBC 3.76 L Hgb 11.3 L Hct 36.5 L MCV 97.1 H MCH 30.1 MCHC 31.0 L RDW Std Deviation 41.5 RDW Coeff of Earline 11.6 Plt Count 181 MPV 8.9 Specimen Type Sample Site pH Bicarbonate Actual POC Total CO2 Base Excess O2 Saturation O2 % ABG pCO2 ABG pO2 Mo Test Respiration Rate O2 Delivery Device Minute Volume Vent Mode Tidal Volume POC PEEP Blood Gas Notified Whom Blood Gas Notified Time Sodium 133 L Potassium 5.1 Chloride 99 Carbon Dioxide 32.0 Anion Gap 2 L BUN 19 H Creatinine 0.60 L Estim Creat Clear Calc 51.39 Est GFR (MDRD) Af Amer 164 Est GFR (MDRD) Non-Af 136 BUN/Creatinine Ratio 31.5 H Glucose 153 H Serum Osmolality Calcium 8.5 Phosphorus Magnesium Total Bilirubin Direct Bilirubin AST ALT Alkaline Phosphatase Total Creatine Kinase Total Protein Albumin Globulin Triglycerides TSH Urine Osmolality Ur Random Sodium Urine Creatinine Vancomycin Trough POC Glucose 141 H 05/29/19 05/29/19 05/29/19 05:24 06:51 11:21 WBC RBC Hgb Hct MCV MCH MCHC RDW Std Deviation RDW Coeff of Earline Plt Count MPV Specimen Type ART Sample Site R Radial pH 7.33 L Bicarbonate Actual 29.5 H POC Total CO2 31 Base Excess 4 H O2 Saturation 91 L O2 % 50 ABG pCO2 56.4 H ABG pO2 66 L Mo Test POS Respiration Rate 14 O2 Delivery Device Vent Minute Volume 7.00 Vent Mode A-C Tidal Volume 500 POC PEEP 5 Blood Gas Notified Whom ICU Blood Gas Notified Time 650 Sodium Potassium Chloride Carbon Dioxide Anion Gap BUN Creatinine Estim Creat Clear Calc Est GFR (MDRD) Af Amer Est GFR (MDRD) Non-Af BUN/Creatinine Ratio Glucose Serum Osmolality Calcium Phosphorus Magnesium Total Bilirubin Direct Bilirubin AST ALT Alkaline Phosphatase Total Creatine Kinase Total Protein Albumin Globulin Triglycerides TSH Urine Osmolality Ur Random Sodium Urine Creatinine Vancomycin Trough POC Glucose 154 H 136 H 05/29/19 05/29/19 05/30/19 16:31 23:34 04:05 WBC RBC Hgb Hct MCV MCH MCHC RDW Std Deviation RDW Coeff of Earline Plt Count MPV Specimen Type Sample Site pH Bicarbonate Actual POC Total CO2 Base Excess O2 Saturation O2 % ABG pCO2 ABG pO2 Mo Test Respiration Rate O2 Delivery Device Minute Volume Vent Mode Tidal Volume POC PEEP Blood Gas Notified Whom Blood Gas Notified Time Sodium Potassium Chloride Carbon Dioxide Anion Gap BUN Creatinine Estim Creat Clear Calc Est GFR (MDRD) Af Amer Est GFR (MDRD) Non-Af BUN/Creatinine Ratio Glucose Serum Osmolality Calcium Phosphorus Magnesium Total Bilirubin Direct Bilirubin AST ALT Alkaline Phosphatase Total Creatine Kinase Total Protein Albumin Globulin Triglycerides TSH Urine Osmolality Ur Random Sodium Urine Creatinine Vancomycin Trough 7.1 POC Glucose 135 H 154 H 05/30/19 05/30/19 04:05 05:42 WBC RBC Hgb Hct MCV MCH MCHC RDW Std Deviation RDW Coeff of Earline Plt Count MPV Specimen Type Sample Site pH Bicarbonate Actual POC Total CO2 Base Excess O2 Saturation O2 % ABG pCO2 ABG pO2 Mo Test Respiration Rate O2 Delivery Device Minute Volume Vent Mode Tidal Volume POC PEEP Blood Gas Notified Whom Blood Gas Notified Time Sodium 134 L Potassium 4.9 Chloride 98 Carbon Dioxide 34.0 H Anion Gap 2 L BUN 22 H Creatinine 0.50 L Estim Creat Clear Calc 51.39 Est GFR (MDRD) Af Amer 206 Est GFR (MDRD) Non-Af 170 BUN/Creatinine Ratio 44.3 H Glucose 162 H Serum Osmolality Calcium 8.2 L Phosphorus 2.6 Magnesium 2.0 Total Bilirubin Direct Bilirubin AST ALT Alkaline Phosphatase Total Creatine Kinase Total Protein Albumin Globulin Triglycerides TSH Urine Osmolality Ur Random Sodium Urine Creatinine Vancomycin Trough POC Glucose 186 H Microbiology 05/28/19 14:15 Sputum, Induced/Lukens Gram Stain - Final 05/28/19 14:15 Sputum, Induced/Lukens Respiratory Culture - Preliminary Appears to be normal respiratory james. Further studies to follow. 05/28/19 09:30 Sputum, Expectorated/Coughed Gram Stain - Final 05/28/19 09:30 Sputum, Expectorated/Coughed Respiratory Culture - Preliminary Appears to be normal respiratory james. Further studies to follow. 05/28/19 04:15 Urine, Catheterized Urine Culture - Preliminary Culture exhibits no growth. 05/28/19 08:55 Mucosa - Nasopharyngeal Respiratory Panel (PCR) - Final 05/28/19 04:15 Urine Catheter - Catheter Streptococcus pneumoniae Antigen (M - Final 05/28/19 04:15 Urine Catheter - Catheter Legionella Antigen - Final 05/28/19 02:15 Mucosa - Nose Influenza Types A,B Direct FA (STEVE) - Final Clinical Impression(s) from Imaging Studies Chest X-Ray 05/27/19 23:38 IMPRESSION: Chronic interstitial lung disease without significant change since the previous study. Electronically Signed: Swetha Tracy, at 0:34 EDT Tel , Service support , Chest CTA 05/28/19 01:08 IMPRESSION: No demonstrated pulmonary embolism or arterial dissection. Possible pulmonary edema or bilateral pneumonia. Small bilateral pleural effusions. There is irregular mass in the right lower lobe measures approximately 6.2 x 5.6 cm most likely represent a neoplasm. Electronically Signed: Swetha Tracy, at 2:13 EDT Tel , Service support , Chest X-Ray 05/28/19 13:39 IMPRESSION: The tip of the endotracheal tube is at 6.7 cm proximal to nicole. The tip of the orogastric tube is in the distal body of the stomach. Improved aeration of both lung bases with residual infiltrates worse on the right side. Electronically Signed: Caleb Hartman, at 14:32 EDT , Service support , Chest X-Ray 05/28/19 17:45 Medical Necessity - Tobacco Use Smoking Status: Former smoker Tobacco Use: Cigarettes, Cigars Assessment/Plan All Active Problems (Last Reviewed 05/28/19 @ 02:11 by Jacobo Unger MD) Severe sepsis (Acute) Sepsis (Acute) COPD exacerbation (Acute) Dyspnea (Acute) Acute exacerbation of chronic obstructive pulmonary disease (COPD) (Resolved) Acute on chronic diastolic (congestive) heart failure (Resolved) Acute respiratory failure with hypoxia and hypercapnia (Resolved) Bilateral pneumonia (Resolved) CAP (community acquired pneumonia) (Resolved) Dehydration (Resolved) Drug rash (Resolved) Hyperglycemia (Resolved) Hyponatremia (Resolved) Hypotension (Resolved) Pulmonary congestion (Resolved) Severe sepsis (Resolved) RECOMMENDATIONS: 1. Continue current supportive measures with invasive mechanical ventilation and antimicrobials. 2. Continue scheduled bronchodilators and steroids. 3. Start IV Lasix today if hemodynamics remain stable. 4. Continue tube feeds as ordered. 5. Continue to wean FiO2 to maintain oxygen saturations at or above 90%. 6. Physical therapy evaluation today. 7. Continue appropriate ICU prophylaxis. IMPRESSIONS: 1. Acute on chronic combined respiratory failure Likely secondary to COPD with exacerbation with concern for underlying pulmonary infectious process. The patient was subsequently placed on broad-spectrum antimicrobial coverage. Initial attempts at the use of noninvasive positive pressure ventilatory support eventually proved to be unsuccessful and the patient required intubation on May 28. The patient did have bilateral groundglass changes noted on CTA chest. He has evidence of a severe airflow obstruction based upon PFTs completed through the [facility]. The patient will be continued on broad-spectrum antimicrobials. Continue bronchodilators and steroids as ordered. 2. Septic shock secondary to community-acquired versus aspiration pneumonia Continue current supportive measures as noted above with broad-spectrum antimicrobial coverage. Vasopressor support has been weaned at this time. 3. Personal history of non-small cell lung cancer/right lower lobe masslike density From review of outside medical records through the 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 There has been no evidence of cancer recurrence according to the patient's pulmonary provider at [facility]. 4. 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 5. Pulmonary hypertension/hypertension/hyperlipidemia/advanced age/CODE STATUS Complicates care, management, recovery and prognosis. Physical therapy to work with patient as tolerated. Goals of care/CODE STATUS was discussed with the patient prior to intubation and he wished to remain full code. TIME: 38 minutes of critical care time, independent of procedures, was spent addressing the patient's acute on chronic combined respiratory failure, COPD with exacerbation, history of non-small cell lung cancer, right lower lobe masslike density, congestive heart failure, review of all data and collaboration with the care team. ([id number]) Code Visit [id number]: [id number] Critical care first hour
--- NOTE | 2019-05-30 08:22 | PN_ITS ---
Patient Problems: Active and Suspected Problems (Last Reviewed 05/28/19 @ 02:11 by Jacobo Unger MD) COPD exacerbation (Acute) Subjective: Day #3 ventilator Day #3 vancomycin and Merrem All events of the past 24 hours of been reviewed. He has been afebrile. Levophed was discontinued at 03 100 and his most recent blood pressure is 150/64. Heart rate has been within normal limits but patient became tachycardic approximately 30 minutes into his spontaneous breathing trial this morning. He is maintaining an oxygen saturation of 93 to 97% on a 45% FiO2. Fluid balance since admission is +6500. All lab was personally reviewed. Sodium is stable at 134 today. Serum bicarb is increased at 34. The BUN is 22 with a creatinine of 0.5. Phosphorus and magnesium are within normal limits. Vanco trough is low at 7.1. Sugars are elevated but all are less than 200. Failed SBT today - became tachycardic and tachypneic after 30 minutes. - Physical Exam Vitals/I&O's: Vital Signs Temp Pulse Resp BP Pulse Ox 98.5 F 62 16 150/64 H 97 05/30/19 08:00 05/30/19 08:00 05/30/19 08:00 05/30/19 08:00 05/30/19 08:00 Oxygen Flow Rate (L/min) 50 Oxygen Delivery Method Mechanical Ventilator Weight: 162 lb 0.636 oz Body Mass Index (BMI) 24.3 Intake and Output for Last 24 Hours 05/28/19 05/29/19 05/30/19 23:59 23:59 23:59 Intake Total 4832.63 / 4832.63 2561.85 / 2562.80 1282.88 / 1282.88 Output Total 1075 / 1075 850 / 850 250 / 250 Balance 3757.63 / 3757.63 1711.85 / 1712.80 1032.88 / 1032.88 General: - - intubated and mechanically ventilated. More sleepy today. HEENT: PERRLA Oral: Dry Mucosa Neck: Supple, No Nodes, Trachea Midline Lungs: Clear to auscultation Cardiovascular: Regular Rhythm, Murmur, No rub noted, No Gallop, - - telemmetry with Paced rhythm, rare intrinsic beats Abdomen: Bowel Sounds Present, Soft, Distended - more tympanic and more dis tended today ....no BM since admission Extremities: No cyanosis, Edema - of the feet and the ankles Skin: No rashes Neurological: Cranial nerves II-XII grossly intact, Neuro grossly intact Microbiology Past 72 Hours 05/28/19 14:15 Sputum, Induced/Lukens Gram Stain - Final 05/28/19 14:15 Sputum, Induced/Lukens Respiratory Culture - Preliminary Appears to be normal respiratory james. Further studies to follow. 05/28/19 09:30 Sputum, Expectorated/Coughed Gram Stain - Final 05/28/19 09:30 Sputum, Expectorated/Coughed Respiratory Culture - Preliminary Appears to be normal respiratory james. Further studies to follow. 05/28/19 04:15 Urine, Catheterized Urine Culture - Preliminary Culture exhibits no growth. 05/28/19 08:55 Mucosa - Nasopharyngeal Respiratory Panel (PCR) - Final 05/28/19 04:15 Urine Catheter - Catheter Streptococcus pneumoniae Antigen (M - Final 05/28/19 04:15 Urine Catheter - Catheter Legionella Antigen - Final 05/28/19 02:15 Mucosa - Nose Influenza Types A,B Direct FA (STEVE) - Final Laboratory Results 05/29/19 11:21: POC Glucose 136 H 05/29/19 16:31: POC Glucose 135 H 05/29/19 23:34: POC Glucose 154 H 05/30/19 04:05: Vancomycin Trough 7.1 05/30/19 04:05: Sodium 134 L, Potassium 4.9, Chloride 98, Carbon Dioxide 34.0 H, Anion Gap 2 L, BUN 22 H, Creatinine 0.50 L, Estim Creat Clear Calc 51.39, Est GFR (MDRD) Af Amer 206, Est GFR (MDRD) Non-Af 170, BUN/Creatinine Ratio 44.3 H, Glucose 162 H, Calcium 8.2 L, Phosphorus 2.6, Magnesium 2.0 05/30/19 05:42: POC Glucose 186 H Current Medications Albuterol Sulfate (Ventolin Aerosols) 2.5 mg INHALATION Q2H PRN PRN PRN Reason: SHORTNESS OF BREATH Buspirone HCl (Buspar) 5 mg PO Q8 [facility] Last Admin: 05/30/19 05:11 Dose: 5 mg Documented by: Chlorhexidine Gluconate () 15 ml PO BID [facility] Last Admin: 05/29/19 21:21 Dose: 15 ml Documented by: Chlorhexidine Gluconate () 1 each TOPICAL DAILY [facility] Last Admin: 05/30/19 02:06 Dose: 1 each Documented by: Dextrose (D50w Syringe) 0 gm IV X1 PRN; Protocol PRN Reason: Hypoglycemia Enoxaparin Sodium (Lovenox) 40 mg SC DAILY@1000 [facility] Last Admin: 05/29/19 08:19 Dose: 40 mg Documented by: Famotidine (Pepcid) 20 mg GT BID [facility] Last Admin: 05/29/19 21:21 Dose: 20 mg Documented by: Fentanyl Citrate (Sublimaze (100mcg Ampule)) 25 mcg IV Q2H PRN PRN PRN Reason: ANXIETY Last Admin: 05/28/19 11:55 Dose: 25 mcg Documented by: Glucagon () 1 mg IM .X1 PRN PRN Reason: Hypoglycemia Sodium Chloride () 250 mls @ 15 mls/hr IV .[id number] PRN PRN Reason: Saline Flush Last Infusion: 05/30/19 07:59 Dose: 0 mls/hr Documented by: Meropenem 1 gm/ Sodium (Chloride) 120 mls @ 33 mls/hr IV Q8 [facility] Last Infusion: 05/30/19 07:59 Dose: 33 mls/hr Documented by: Propofol (Diprivan) 1,000 mg in 100 mls @ 4.41 mls/hr CONT INF .Q12H [facility]; Protocol Last Titration: 05/30/19 07:59 Dose: 15 mcg/kg/min, 6.6 mls/hr Documented by: Fentanyl () 100 mls @ 5 mls/hr IV UD [facility]; Protocol Last Titration: 05/30/19 07:59 Dose: 50 mcg/hr, 5 mls/hr Documented by: Vancomycin IV Pharmacy to Dose (1 ea/ Sodium Chloride) 500 mls @ 250 mls/hr IV X1 PRN; Protocol PRN Reason: Rx to Dose Sodium Chloride () 250 mls @ 15 mls/hr IV .[id number] PRN PRN Reason: Saline Flush Last Infusion: 05/30/19 07:59 Dose: 0 mls/hr Documented by: Norepinephrine Bitartrate 8 mg (/ Sodium Chloride) 250 mls @ 9.375 mls/hr CONT INF .[id number] [facility]; Protocol Last Titration: 05/30/19 07:00 Dose: 0 mcg/min, 0 mls/hr Documented by: Enteral Nutritional Formula (Vital Af 1.2 Logan Liquid) 1,000 mls @ 20 mls/hr GT .Q48H [facility] Last Admin: 05/29/19 10:39 Dose: 20 mls/hr Documented by: Vancomycin HCl 1,500 mg/ (Sodium Chloride) 530 mls @ 250 mls/hr IV Q12H [facility] Last Infusion: 05/30/19 07:59 Dose: 250 mls/hr Documented by: Insulin Human Lispro (Humalog Kwikpen (Bkc)) 0 unit SC Q6 [facility]; Protocol Last Admin: 05/30/19 05:43 Dose: 1 u Documented by: Ipratropium [place] (Atrovent) 0.5 mg INHALATION Q4H.RT [facility] Last Admin: 05/30/19 06:56 Dose: 0.5 mg Documented by: Methylprednisolone (Solu-Medrol) 40 mg IV Q8 [facility] Last Admin: 05/30/19 05:08 Dose: 40 mg Documented by: Ondansetron HCl (Zofran) 4 mg IV Q8H PRN PRN PRN Reason: NAUSEA/VOMITING Senna/Docusate Sodium (Senokot-S, Angeli-Colace) 2 tablet GT BID [facility] Last Admin: 05/29/19 21:20 Dose: 2 tablet Documented by: Sertraline HCl (Zoloft) 50 mg GT DAILY [facility] Last Admin: 05/29/19 08:21 Dose: 50 mg Documented by: Sodium Chloride () 10 - 40 ml IV UD PRN PRN Reason: SALINE FLUSH Last Admin: 05/30/19 05:03 Dose: 40 ml Documented by: Sodium Chloride (0.9% Nacl (Sterile) Posiflush) 10 - 40 ml IV UD PRN PRN Reason: Port access or dressing change Medical Necessity - Tobacco Use Smoking Status: Former smoker Tobacco Use: Cigarettes, Cigars Assessment/Plan All Active Problems (Last Reviewed 05/28/19 @ 02:11 by Jacobo Unger MD) Severe sepsis (Acute) Sepsis (Acute) COPD exacerbation (Acute) Dyspnea (Acute) Acute exacerbation of chronic obstructive pulmonary disease (COPD) (Resolved) Acute on chronic diastolic (congestive) heart failure (Resolved) Acute respiratory failure with hypoxia and hypercapnia (Resolved) Bilateral pneumonia (Resolved) CAP (community acquired pneumonia) (Resolved) Dehydration (Resolved) Drug rash (Resolved) Hyperglycemia (Resolved) Hyponatremia (Resolved) Hypotension (Resolved) Pulmonary congestion (Resolved) Severe sepsis (Resolved) Day # 3 Merrem and Vanco Day #3 ventilator Impressions 1. Septic shock requiring Levophed with acute on chronic combined respiratory failure more likely than not secondary to aspiration pneumonia. Continue Merrem for a total of [address] Mccartney of the Vanco since cultures have no growth and the MRSA nasal swab was negative. 2. chronic dysphagia - seen by [facility] MBS and esophagram on 06/02 3. acute Pneumonia - suspect aspiration. Legionella and streptococcal antigens in the urine are negative. Influenza is negative. Respiratory panel is negative. Sputum Gram stain shows 3+ gram-positive cocci in clusters and chains. MRSA nasal screen was negative. Blood cultures have no growth. 4. generalized anxiety with panic attacks chronically at home - will maintain on sertraline and Buspar 5. History of non-small cell lung cancer-treated with radiation and sometimes follows at [facility] and sometimes at [place]. 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 Discussed the importance of continuity with the pt 6. Severe centrilobular bullous emphysema 7. Severe pulmonary hypertension with a right ventricular systolic pressure estimated at 78 on echocardiogram in October 2018. 8. Cardiomyopathy with a 45% EF in October 2018 9. Moderate to severe aortic valve stenosis with evidence of diastolic dysfunction 10. 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 Hyponatremia-resolved 12. enoxaparin for DVT prophylaxis. Continue ESTEBAN hose and SCDs. Pepcid for GI prophylaxis. Continue broad-spectrum antibiotics. Continue tube feed. Will need MBS and esophagram prior to any attempt to restart diet following extubation. Met with his and with his dtr and showed them the CT scan. Discussed control of the anxiety and advance directives. Also discussed Palliative care. His has tried to have a discussion about advance directives with him in the past and he does not want to discuss it.
[2019-05-30] MEDS: Chlorhexidine 15 ML PO ×2 (09:46→21:16)
[2019-05-30] MEDS: Furosemide 40 MG/4 ML Vial IV (09:46)
[2019-05-30] MEDS: Enoxaparin 40 MG/0.4 ML Syringe SC (09:46)
[2019-05-30] MEDS: Senna/Docusate Sodium 1 Tablet 2 TABLET GT (09:47)
[2019-05-30] MEDS: Famotidine 20 MG Tablet GT ×2 (09:47→21:15)
[2019-05-30] MEDS: Sertraline 50 MG Tablet GT (09:47)
[2019-05-30] MEDS: fentaNYL drip 100 ML 5 MCG IV (10:30)
[2019-05-30 11:41] LABS: Bedside Glucose 158 mg/dL (70-110)
[2019-05-30] MEDS: Bisacodyl 10 MG Suppository RECTAL (14:05)
[2019-05-30] MEDS: Propofol 10MG/Ml 1,000 MG/100 ML Bottle 6.6 MG CONT INF (14:30)
[2019-05-30 17:15] LABS: Bedside Glucose 138 mg/dL (70-110)
--- NOTE | 2019-05-30 20:05 | NURSING ---
ed on chronic illness deferred till acute illness resolving
[2019-05-30] MEDS: Vital AF 1.2 Cal Liquid 1,000 ML 20 ML GT (21:12)
[2019-05-31] VITALS (48 sets, daily range): BP systolic 109–198; BP diastolic 53–109; PULSE 60–124; RESP 12–30; TEMP 36.6–37.6; O2SAT 90–100
[2019-05-31 00:25] LABS: Bedside Glucose 138 mg/dL (70-110)
[2019-05-31] MEDS: Propofol 10MG/Ml 1,000 MG/100 ML Bottle 8.8 MG CONT INF (01:33)
[2019-05-31] MEDS: fentaNYL drip 100 ML 7.5 MCG IV (03:05)
[2019-05-31] MEDS: CHLORHEXIDINE GLUC 2% CLOTH 1 EACH TOWELETTE TOPICAL (03:12)
[2019-05-31] MEDS: Ipratropium 0.5 MG/2.5 ML SOLUTION INHALATION ×6 (03:30→22:51)
[2019-05-31] MEDS: TITRATION PARAMETER CHANGE 1 EACH IV (04:53)
[2019-05-31] MEDS: 0.9% Saline Lock 10 ML Syringe IV ×5 (05:03→21:27)
[2019-05-31] MEDS: busPIRone 5 MG Tablet PO (05:06)
[2019-05-31 05:21] LABS: Bedside Glucose 157 mg/dL (70-110)
[2019-05-31] MEDS: Insulin Lispro 100 UNIT/ML INSULN.PEN SC (05:22)
--- NOTE | 2019-05-31 06:25 | PCM.PN.INT ---
Subjective: The patient was seen and examined at the bedside this morning. Events from the last 24 hours have been reviewed. The patient is currently afebrile, hemodynamically stable and maintaining appropriate oxygen saturations on spontaneous mode mechanical ventilation with an FiO2 requirement of 40%. Despite receiving a one-time dose of IV Lasix yesterday, the patient was still noted to be overall net positive yesterday. The patient is now documented to be overall net +7.6 L for the admission. The patient did well this morning on his spontaneous breathing trial. There have been no significant secretions noted from either respiratory or nursing staff. The patient is currently alert, following commands and appropriately interactive. He does appear somewhat anxious, nonetheless. Objective: The patient's most recent lab work, culture data and imaging studies have all been personally reviewed. Infectious work-up has been unrevealing to date. OUTSIDE MEDICAL RECORDS FROM [facility]: (Obtained during October Hospital Admission) Pulmonary medicine office visit on August 29, [address] Li: Reports that patient is using Anoro daily. Also reported worsening dysphagia with concern that patient may need to be seen again by GI for potential EGD and dilation. The patient does have a history of lung cancer of the right lower lobe (T2N0M0), s/p SBRT completed 10/19/2015. Follow-up PET scan from June 2017 revealed resolution of the right lower lobe mass. CT chest from June 2018 revealed no evidence of recurrence. CT chest without contrast dated June 2018 revealed significant bilateral emphysema, stable calcified biapical scarring, most pronounced in the right apex. There was demonstration of an ill-defined region of consolidation in the right lung base with radiating bands of scar/fibrosis and associated volume loss, consistent with post radiation fibrosis. There was a stable appearing 5 mm nodule in the left lower lobe. A follow-up office visit with Dr. Li occurred on May 17, 2019 The patient was documented to be having episodes of choking when drinking water. The patient was documented to have severe COPD. 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 A CT chest was just completed through the [facility] on May 16, which demonstrated no signs of cancer recurrence. General: Alert, Cooperative, - - Remains intubated and mechanically ventilated. Currently tolerating spontaneous mode of mechanical ventilation. HEENT: Atraumatic, PERRLA, Normocephalic Oral: No Gingival or Mucosal Lesions/ Ulcerations, - - Endotracheal and OG tubes currently in place. Neck: Supple, No Nodes, Trachea Midline, - - Stable central venous catheter in place Lungs: No rhonchi, No wheeze, No rales, Diminished Cardiovascular: Normal S1, Normal S2, Murmur, Tachycardic Abdomen: Bowel Sounds Present, Soft, Non Tender Extremities: No clubbing, No cyanosis, - - Mild lower extremity edema Skin: No breakdown Musculoskeletal: No Tenderness to Palpation of Joints or Extremities Lymphatic: No Cervical, Supraclavicular, or Inguinal Adenopathy Neurological: Cranial nerves II-XII grossly intact, Neuro grossly intact, - - Alert and following commands appropriately. Psych/Mental Status: Anxious Vital Signs Temp Pulse Resp BP Pulse Ox 98.3 F 94 20 H 166/80 H 97 05/31/19 05:00 05/31/19 05:13 05/31/19 05:13 05/31/19 05:00 05/31/19 05:13 Oxygen Flow Rate (L/min) 50 Oxygen Delivery Method Mechanical Ventilator Weight: 164 lb 3.91 oz Body Mass Index (BMI) 24.3 Intake and Output for Last 24 Hours 05/29/19 05/30/19 05/31/19 23:59 23:59 23:59 Intake Total 2561.85 / 2562.80 4147.31 / 4163.61 705.93 / 705.93 Output Total 850 / 850 2425 / 2425 250 / 250 Balance 1711.85 / 1712.80 1722.31 / 1738.61 455.93 / 455.93 Labs (Last 48 Hours) 05/29/19 05/29/19 05/29/19 06:51 11:21 16:31 Specimen Type ART Sample Site R Radial pH 7.33 L Bicarbonate Actual 29.5 H POC Total CO2 31 Base Excess 4 H O2 Saturation 91 L O2 % 50 ABG pCO2 56.4 H ABG pO2 66 L Mo Test POS Respiration Rate 14 O2 Delivery Device Vent Minute Volume 7.00 Vent Mode A-C Tidal Volume 500 POC PEEP 5 Blood Gas Notified Whom ICU MD Blood Gas Notified Time 650 Sodium Potassium Chloride Carbon Dioxide Anion Gap BUN Creatinine Estim Creat Clear Calc Est GFR (MDRD) Af Amer Est GFR (MDRD) Non-Af BUN/Creatinine Ratio Glucose Calcium Phosphorus Magnesium Vancomycin Trough POC Glucose 136 H 135 H 05/29/19 05/30/19 05/30/19 23:34 04:05 04:05 Specimen Type Sample Site pH Bicarbonate Actual POC Total CO2 Base Excess O2 Saturation O2 % ABG pCO2 ABG pO2 Mo Test Respiration Rate O2 Delivery Device Minute Volume Vent Mode Tidal Volume POC PEEP Blood Gas Notified Whom Blood Gas Notified Time Sodium 134 L Potassium 4.9 Chloride 98 Carbon Dioxide 34.0 H Anion Gap 2 L BUN 22 H Creatinine 0.50 L Estim Creat Clear Calc 51.39 Est GFR (MDRD) Af Amer 206 Est GFR (MDRD) Non-Af 170 BUN/Creatinine Ratio 44.3 H Glucose 162 H Calcium 8.2 L Phosphorus 2.6 Magnesium 2.0 Vancomycin Trough 7.1 POC Glucose 154 H 05/30/19 05/30/19 05/30/19 05:42 11:25 17:12 Specimen Type Sample Site pH Bicarbonate Actual POC Total CO2 Base Excess O2 Saturation O2 % ABG pCO2 ABG pO2 Mo Test Respiration Rate O2 Delivery Device Minute Volume Vent Mode Tidal Volume POC PEEP Blood Gas Notified Whom Blood Gas Notified Time Sodium Potassium Chloride Carbon Dioxide Anion Gap BUN Creatinine Estim Creat Clear Calc Est GFR (MDRD) Af Amer Est GFR (MDRD) Non-Af BUN/Creatinine Ratio Glucose Calcium Phosphorus Magnesium Vancomycin Trough POC Glucose 186 H 158 H 138 H 05/31/19 05/31/19 00:21 05:14 Specimen Type Sample Site pH Bicarbonate Actual POC Total CO2 Base Excess O2 Saturation O2 % ABG pCO2 ABG pO2 Mo Test Respiration Rate O2 Delivery Device Minute Volume Vent Mode Tidal Volume POC PEEP Blood Gas Notified Whom Blood Gas Notified Time Sodium Potassium Chloride Carbon Dioxide Anion Gap BUN Creatinine Estim Creat Clear Calc Est GFR (MDRD) Af Amer Est GFR (MDRD) Non-Af BUN/Creatinine Ratio Glucose Calcium Phosphorus Magnesium Vancomycin Trough POC Glucose 138 H 157 H Microbiology 05/28/19 14:15 Sputum, Induced/Lukens Gram Stain - Final 05/28/19 14:15 Sputum, Induced/Lukens Respiratory Culture - Final 05/27/19 23:40 Blood Culture (Wb) - Anticubital Right Blood Culture - Preliminary No growth in 48 hours. 05/28/19 01:00 Blood Culture (Wb) - Anticubital Left Blood Culture - Preliminary No growth in 48 hours. 05/28/19 09:30 Sputum, Expectorated/Coughed Gram Stain - Final 05/28/19 09:30 Sputum, Expectorated/Coughed Respiratory Culture - Final 05/28/19 04:15 Urine, Catheterized Urine Culture - Final Culture exhibits no growth. Clinical Impression(s) from Imaging Studies Chest X-Ray 05/27/19 23:38 IMPRESSION: Chronic interstitial lung disease without significant change since the previous study. Electronically Signed: Swetha Tracy, at 0:34 EDT Tel , Service support , Chest CTA 05/28/19 01:08 IMPRESSION: No demonstrated pulmonary embolism or arterial dissection. Possible pulmonary edema or bilateral pneumonia. Small bilateral pleural effusions. There is irregular mass in the right lower lobe measures approximately 6.2 x 5.6 cm most likely represent a neoplasm. Electronically Signed: Swetha Tracy, at 2:13 EDT Tel , Service support , Chest X-Ray 05/28/19 13:39 IMPRESSION: The tip of the endotracheal tube is at 6.7 cm proximal to nicole. The tip of the orogastric tube is in the distal body of the stomach. Improved aeration of both lung bases with residual infiltrates worse on the right side. Electronically Signed: Caleb Hartman, at 14:32 EDT , Service support , Chest X-Ray 05/28/19 17:45 Medical Necessity - Tobacco Use Smoking Status: Former smoker Tobacco Use: Cigarettes, Cigars Assessment/Plan All Active Problems (Last Reviewed 05/28/19 @ 02:11 by Jacobo Unger MD) Severe sepsis (Acute) Sepsis (Acute) COPD exacerbation (Acute) Dyspnea (Acute) Acute exacerbation of chronic obstructive pulmonary disease (COPD) (Resolved) Acute on chronic diastolic (congestive) heart failure (Resolved) Acute respiratory failure with hypoxia and hypercapnia (Resolved) Bilateral pneumonia (Resolved) CAP (community acquired pneumonia) (Resolved) Dehydration (Resolved) Drug rash (Resolved) Hyperglycemia (Resolved) Hyponatremia (Resolved) Hypotension (Resolved) Pulmonary congestion (Resolved) Severe sepsis (Resolved) RECOMMENDATIONS: 1. Proceed with a trial of extubation this morning directly to BiPAP. 2. The patient can be transitioned from BiPAP to nasal cannula supplemental oxygen later this morning. 3. Wean supplemental oxygen as tolerated. 4. Continue antimicrobial therapy. Vancomycin can be discontinued from my perspective. 5. Start IV Lasix 40 mg twice daily. 6. Continue aggressive bronchopulmonary hygiene and mobilize patient as tolerated. 7. Continue bronchodilators and steroids. 8. The patient will require reevaluation by speech therapy prior to advancing diet. 9. Continue appropriate ICU prophylaxis. IMPRESSIONS: 1. Acute on chronic combined respiratory failure Likely secondary to COPD with exacerbation with concern for underlying pulmonary infectious process. The patient was subsequently placed on broad-spectrum antimicrobial coverage. Initial attempts at the use of noninvasive positive pressure ventilatory support eventually proved to be unsuccessful and the patient required intubation on May 28. The patient did have bilateral groundglass changes noted on CTA chest. The patient was then able to be successfully extubated on May 31. We will plan to utilize BiPAP therapy as needed. He has evidence of a severe airflow obstruction based upon PFTs completed through the [facility]. The patient will be continued on broad-spectrum antimicrobials. Continue bronchodilators and steroids as ordered. Given that the patient has a significant amount of underlying anxiety, I do feel that he would benefit from referral to palliative care. In the meantime, the patient has already been started on BuSpar and low-dose PRN Ativan. 2. Septic shock secondary to community-acquired versus aspiration pneumonia Continue current supportive measures as noted above with broad-spectrum antimicrobial coverage. Vasopressor support has been weaned at this time. Vancomycin can be discontinued from my perspective. Plan to complete a 7-day treatment course of antibiotics. 3. 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 There has been no evidence of cancer recurrence according to the patient's pulmonary provider at [facility]. 4. Congestive heart failure/Mobitz type II heart block status post pacemaker placement Start scheduled IV Lasix twice daily as ordered. 5. Pulmonary hypertension/hypertension/hyperlipidemia/advanced age/CODE STATUS Complicates care, management, recovery and prognosis. Physical therapy to work with patient as tolerated. Goals of care/CODE STATUS was discussed with the patient prior to intubation and he wished to remain full code. TIME: 42 minutes of critical care time, independent of procedures, was spent addressing the patient's acute on chronic combined respiratory failure, COPD with exacerbation, history of non-small cell lung cancer, right lower lobe masslike density, congestive heart failure, review of all data and collaboration with the care team. ([id number]) Code Visit [id number]: [id number] Critical care first hour
[2019-05-31 06:32] LABS: Absolute Lymphocyte Count 1.04 X10^3/uL (0.83-4.51); Absolute Neutrophil Count 9.8 X10^3/uL (2.0-7.7); Basophil# 0.01 X10^3/uL; Basophil% 0.1 % (0-1); Hematocrit 39.6 % (40-54); Hemoglobin 12.5 g/dL (13.0-16.5); Lymphocyte # 1.04 X10^3/ul (4.0); Lymphocyte % 8.6 % (19-41); Mean Corp Hgb Conc 31.6 g/dL (32-36); Mean Corpuscular Hgb 30.3 pg (27.0-32.0); Mean Corpuscular Volume 95.9 fL (80-94); Mean Platelet Vol. 9.4 fl (6.2-12.0); Monocyte# 1.19 X10^3/uL; Monocyte% 9.9 % (0-10); NRBC Flagged by Analyzer 0 % (0-5); Neutrophil # 9.77 X10^3/uL (2.7-7.7); Neutrophil % 80.8 % (47-70); Platelet Count 174 K/mm3 (150-450); RBC Distribution Width CV 11.8 % (11.6-14.6); RBC Distribution Width SD 41.2 fl (35.1-43.9); Red Blood Count 4.13 M/mm3 (4.6-6.2); White Blood Count 12.1 K/mm3 (4.4-11.0)
--- NOTE | 2019-05-31 06:40 | NURSING ---
Pt. extubated by respiratory to bipap 14/6 initially 100%. respiratory turned FiO2 down to 60% shortly after extubating.
[2019-05-31 06:44] LABS: Anion Gap 3 (5-15); BUN 24 mg/dL (7-18); BUN/Creat Ratio 46.8 RATIO (10-20); Calcium,Total 8.4 mg/dL (8.5-10.1); Chloride 96 mmol/L (98-107); Creatinine, Serum 0.51 mg/dL (0.70-1.30); EST Glomerular Filtration Rate 164 mL/min (>60); Est Glom Filt Rate - Afr Amer 199 mL/min (>60); Estimated Creatinine Clearance 51.39 ml/min; Glucose 156 mg/dL (74-106); Potassium 4.3 mmol/L (3.5-5.1); Sodium Level 133 mmol/L (136-145)
[2019-05-31] MEDS: Labetalol 20 MG/4 ML Vial IV (07:22)
[2019-05-31] MEDS: LORazepam 2 MG/ML Syringe 0.5 MG IV (08:17)
--- NOTE | 2019-05-31 09:15 | PCM.PN.HOSP ---
Patient Problems: Active and Suspected Problems (Last Reviewed 05/28/19 @ 02:11 by Jacobo Unger MD) COPD exacerbation (Acute) Subjective: Patient is short of breath and tachypneic, respiratory 24 to 28/min after extubation. Patient transitioned to BiPAP after extubation. Heart rate in 80s. No fever. Blood pressure is stable. Patient has leukocytosis 12.1 thousand with left shift mainly seems steroid effect as it was normal on admission. ABG mainly sensitive of respiratory acidosis 7.3/50 6/66 on vent 50% FiO2 prior to extubation. Vitals/I&O's: Vital Signs Temp Pulse Resp BP Pulse Ox 98.9 F 84 24 H 116/69 91 05/31/19 08:00 05/31/19 09:00 05/31/19 09:00 05/31/19 09:00 05/31/19 09:00 Oxygen Flow Rate (L/min) 5 Oxygen Delivery Method Nasal Cannula Weight: 164 lb 3.91 oz Body Mass Index (BMI) 24.3 Intake and Output for Last 24 Hours 05/29/19 05/30/19 05/31/19 23:59 23:59 23:59 Intake Total 2561.85 / 2562.80 4147.31 / 4163.61 1355.93 / 1355.93 Output Total 850 / 850 2425 / 2425 250 / 250 Balance 1711.85 / 1712.80 1722.31 / 1738.61 1105.93 / 1105.93 General: Alert, Oriented x3, Cooperative HEENT: Atraumatic, PERRLA, EOMI, Normocephalic Neck: Supple, No JVD, Negative Carotid Bruits Lungs: Diminished, Rhonchi, Short of Breath, Tachypneic, - - On BiPAP Cardiovascular: Regular rate, Regular Rhythm, Normal S1, Normal S2, No murmurs Abdomen: Bowel Sounds Present, Soft, Non Tender, Non-Distended Extremities: No edema, Capillary Refill Less than 3 Seconds Skin: No rashes, No breakdown Musculoskeletal: No Tenderness to Palpation of Joints or Extremities, Arthritic Changes Neurological: Cranial nerves II-XII grossly intact, Deep Tendon Reflexes 2+/4 and Symmetrical, Neuro grossly intact Psych/Mental Status: Normal Affect, Appropriate Microbiology Past 72 Hours 05/28/19 14:15 Sputum, Induced/Lukens Gram Stain - Final 05/28/19 14:15 Sputum, Induced/Lukens Respiratory Culture - Final 05/27/19 23:40 Blood Culture (Wb) - Anticubital Right Blood Culture - Preliminary No growth in 48 hours. 05/28/19 01:00 Blood Culture (Wb) - Anticubital Left Blood Culture - Preliminary No growth in 48 hours. 05/28/19 09:30 Sputum, Expectorated/Coughed Gram Stain - Final 05/28/19 09:30 Sputum, Expectorated/Coughed Respiratory Culture - Final 05/28/19 04:15 Urine, Catheterized Urine Culture - Final Culture exhibits no growth. 05/28/19 08:55 Mucosa - Nasopharyngeal Respiratory Panel (PCR) - Final 05/28/19 04:15 Urine Catheter - Catheter Streptococcus pneumoniae Antigen (M - Final 05/28/19 04:15 Urine Catheter - Catheter Legionella Antigen - Final Laboratory Results 05/30/19 11:25: POC Glucose 158 H 05/30/19 17:12: POC Glucose 138 H 05/31/19 00:21: POC Glucose 138 H 05/31/19 05:14: POC Glucose 157 H 05/31/19 06:15: WBC 12.1 H, RBC 4.13 L, Hgb 12.5 L, Hct 39.6 L, MCV 95.9 H, MCH 30.3, MCHC 31.6 L, RDW Std Deviation 41.2, RDW Coeff of Earline 11.8, Plt Count 174, MPV 9.4, Immature Gran % (Auto) 0.600, Neut % (Auto) 80.8 H, Lymph % (Auto) 8.6 L, Fulton % (Auto) 9.9, Eos % (Auto) 0.0, Baso % (Auto) 0.1, Absolute Neuts (auto) 9.8 H, Absolute Lymphs (auto) 1.04, Nucleated RBC % 0 05/31/19 06:15: Sodium 133 L, Potassium 4.3, Chloride 96 L, Carbon Dioxide 34.0 H, Anion Gap 3 L, BUN 24 H, Creatinine 0.51 L, Estim Creat Clear Calc 51.39, Est GFR (MDRD) Af Amer 199, Est GFR (MDRD) Non-Af 164, BUN/Creatinine Ratio 46.8 H, Glucose 156 H, Calcium 8.4 L Current Medications Albuterol Sulfate (Ventolin Aerosols) 2.5 mg INHALATION Q2H PRN PRN PRN Reason: SHORTNESS OF BREATH Chlorhexidine Gluconate () 1 each TOPICAL DAILY [facility] Last Admin: 05/31/19 03:12 Dose: 1 each Documented by: Dextrose (D50w Syringe) 0 gm IV X1 PRN; Protocol PRN Reason: Hypoglycemia Enoxaparin Sodium (Lovenox) 40 mg SC DAILY@1000 [facility]I Last Admin: 05/30/19 09:46 Dose: 40 mg Documented by: Famotidine (Pepcid) 20 mg PO BID [facility]I Furosemide (Lasix) 40 mg IV BID@1000,1800 [facility]I Glucagon () 1 mg IM .X1 PRN PRN Reason: Hypoglycemia Sodium Chloride () 250 mls @ 15 mls/hr IV .[id number] PRN PRN Reason: Saline Flush Last Infusion: 05/31/19 08:55 Dose: 15 mls/hr Documented by: Meropenem 1 gm/ Sodium (Chloride) 120 mls @ 33 mls/hr IV Q8 [facility] Last Infusion: 05/31/19 08:55 Dose: Infused Documented by: Sodium Chloride () 250 mls @ 15 mls/hr IV .[id number] PRN PRN Reason: Saline Flush Last Infusion: 05/31/19 01:15 Dose: 0 mls/hr Documented by: Insulin Human Lispro (Humalog Kwikpen (Bkc)) 0 unit SC Q6 [facility]; Protocol Last Admin: 05/31/19 05:22 Dose: 1 u Documented by: Ipratropium [place] (Atrovent) 0.5 mg INHALATION Q4H.RT [facility] Last Admin: 05/31/19 07:08 Dose: 0.5 mg Documented by: Lorazepam (Ativan) 0.25 mg IV Q6H PRN PRN PRN Reason: ANXIETY Methylprednisolone (Solu-Medrol) 40 mg IV Q8 [facility] Last Admin: 05/31/19 05:06 Dose: 40 mg Documented by: Ondansetron HCl (Zofran) 4 mg IV Q8H PRN PRN PRN Reason: NAUSEA/VOMITING Senna/Docusate Sodium (Senokot-S, Angeli-Colace) 2 tablet PO BID [facility] Sertraline HCl (Zoloft) 50 mg PO DAILY [facility]I Sodium Chloride () 10 - 40 ml IV UD PRN PRN Reason: SALINE FLUSH Last Admin: 05/31/19 08:19 Dose: 10 ml Documented by: Sodium Chloride (0.9% Nacl (Sterile) Posiflush) 10 - 40 ml IV UD PRN PRN Reason: Port access or dressing change STROKE Vital Signs/Narrative: Vital Signs Temp Pulse Resp BP Pulse Ox 05/31/19 09:00 84 24 H 116/69 91 05/31/19 08:40 87 129/60 H 05/31/19 08:00 98.9 F 107 H 27 H 177/88 H 93 05/31/19 07:49 88 05/31/19 07:46 94 05/31/19 07:30 98.9 F 90 23 H 136/68 H 94 05/31/19 07:22 124 H 180/99 H 05/31/19 07:08 104 H 24 H 05/31/19 07:00 98.9 F 124 H 29 H 198/109 H 98 05/31/19 06:45 112 H 26 H 99 05/31/19 06:00 98.8 F 122 H 30 H 170/78 H 94 Medical Necessity - Tobacco Use Smoking Status: Former smoker Tobacco Use: Cigarettes, Cigars Assessment/Plan All Active Problems (Last Reviewed 05/28/19 @ 02:11 by Jacobo Unger MD) Severe sepsis (Acute) Sepsis (Acute) COPD exacerbation (Acute) Dyspnea (Acute) Acute exacerbation of chronic obstructive pulmonary disease (COPD) (Resolved) Acute on chronic diastolic (congestive) heart failure (Resolved) Acute respiratory failure with hypoxia and hypercapnia (Resolved) Bilateral pneumonia (Resolved) CAP (community acquired pneumonia) (Resolved) Dehydration (Resolved) Drug rash (Resolved) Hyperglycemia (Resolved) Hyponatremia (Resolved) Hypotension (Resolved) Pulmonary congestion (Resolved) Severe sepsis (Resolved) Impressions 1. Septic shock with acute on chronic combined respiratory failure more likely than not secondary to aspiration pneumonia. Currently patient is extubated on BiPAP. 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 2. chronic dysphagia - seen by MBS and esophagram were planned for 05/29 but he decompensated and requires intubation. will need a MBS and esophagram prior to any attempts to feed following extubation. 3. acute Pneumonia - suspect aspiration. Blood cultures negative for more than 48 hours. Urinary antigens are negative. Respiratory panel negative. Endotracheal respiratory culture shows mixed normal respiratory james. No haemophilus, strep pneumonia, beta-hemolytic Streptococcus or staff aureus isolated. Urine culture negative. Patient was on Levaquin, and vancomycin and meropenem which is narrowed down to meropenem now. 4. generalized anxiety with panic attacks chronically at home -continue sertraline and Buspar while he is on the vent. 5. History of non-small cell lung cancer-treated with radiation and sometimes follows at [facility] and sometimes at [place]. 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 Out side medical records from [facility] shows patient is in remission or no cancer recurrence. 6. Severe centrilobular bullous emphysema 7. Severe pulmonary hypertension with a right ventricular systolic pressure estimated at 78 on echocardiogram in October 2018. 8. Chronic systolic and diastolic heart failure: Cardiomyopathy with a 45% EF in October 2018 patient is on Lasix 40 mg twice daily. 9. Moderate to severe aortic valve stenosis with evidence of diastolic dysfunction 10. 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 Hyponatremia-sodium improved currently steady on 133. 12. DVT prophylaxis: On Lovenox. SCDs. Pepcid for GI prophylaxis. Microbiology Past 72 Hours 05/28/19 14:15 Sputum, Induced/Lukens Gram Stain - Final 05/28/19 14:15 Sputum, Induced/Lukens Respiratory Culture - Final 05/27/19 23:40 Blood Culture (Wb) - Anticubital Right Blood Culture - Preliminary No growth in 48 hours. 05/28/19 01:00 Blood Culture (Wb) - Anticubital Left Blood Culture - Preliminary No growth in 48 hours. 05/28/19 09:30 Sputum, Expectorated/Coughed Gram Stain - Final 05/28/19 09:30 Sputum, Expectorated/Coughed Respiratory Culture - Final 05/28/19 04:15 Urine, Catheterized Urine Culture - Final Culture exhibits no growth. 05/28/19 08:55 Mucosa - Nasopharyngeal Respiratory Panel (PCR) - Final 05/28/19 04:15 Urine Catheter - Catheter Streptococcus pneumoniae Antigen (M - Final 05/28/19 04:15 Urine Catheter - Catheter Legionella Antigen - Final Laboratory Results 05/30/19 11:25: POC Glucose 158 H 05/30/19 17:12: POC Glucose 138 H 05/31/19 00:21: POC Glucose 138 H 05/31/19 05:14: POC Glucose 157 H 05/31/19 06:15: WBC 12.1 H, RBC 4.13 L, Hgb 12.5 L, Hct 39.6 L, MCV 95.9 H, MCH 30.3, MCHC 31.6 L, RDW Std Deviation 41.2, RDW Coeff of Earline 11.8, Plt Count 174, MPV 9.4, Immature Gran % (Auto) 0.600, Neut % (Auto) 80.8 H, Lymph % (Auto) 8.6 L, [place] % (Auto) 9.9, Eos % (Auto) 0.0, Baso % (Auto) 0.1, Absolute Neuts (auto) 9.8 H, Absolute Lymphs (auto) 1.04, Nucleated RBC % 0 05/31/19 06:15: Sodium 133 L, Potassium 4.3, Chloride 96 L, Carbon Dioxide 34.0 H, Anion Gap 3 L, BUN 24 H, Creatinine 0.51 L, Estim Creat Clear Calc 51.39, Est GFR (MDRD) Af Amer 199, Est GFR (MDRD) Non-Af 164, BUN/Creatinine Ratio 46.8 H, Glucose 156 H, Calcium 8.4 L Clinical Impression(s) from Imaging Studies Chest X-Ray 05/27/19 23:38 IMPRESSION: Chronic interstitial lung disease without significant change since the previous study. Electronically Signed: Swetha Tracy, at 0:34 EDT Tel , Service support , Chest CTA 05/28/19 01:08 IMPRESSION: No demonstrated pulmonary embolism or arterial dissection. Possible pulmonary edema or bilateral pneumonia. Small bilateral pleural effusions. There is irregular mass in the right lower lobe measures approximately 6.2 x 5.6 cm most likely represent a neoplasm. Electronically Signed: Swetha Tracy, at 2:13 EDT Tel , Service support , Chest X-Ray 05/28/19 13:39 IMPRESSION: The tip of the endotracheal tube is at 6.7 cm proximal to nicole. The tip of the orogastric tube is in the distal body of the stomach. Improved aeration of both lung bases with residual infiltrates worse on the right side. Electronically Signed: Caleb Hartman, at 14:32 EDT , Service support , Chest X-Ray 05/28/19 17:45 Code Visit Inpatient E&M: [id number] Subs Hosp L3
[2019-05-31] MEDS: Furosemide 40 MG/4 ML Vial IV ×2 (09:32→17:29)
[2019-05-31] MEDS: Enoxaparin 40 MG/0.4 ML Syringe SC (09:33)
[2019-05-31 11:55] LABS: Bedside Glucose 131 mg/dL (70-110)
[2019-05-31] MEDS: LORazepam 2 MG/ML Syringe 0.25 MG IV (17:28)
[2019-05-31 17:40] LABS: Bedside Glucose 112 mg/dL (70-110)
[2019-05-31 23:05] LABS: Bedside Glucose 107 mg/dL (70-110)
[2019-06-01] VITALS (34 sets, daily range): BP systolic 101–172; BP diastolic 49–82; PULSE 71–108; RESP 12–27; TEMP 36.6–37.6; O2SAT 90–99
[2019-06-01] MEDS: Ipratropium 0.5 MG/2.5 ML SOLUTION INHALATION ×6 (02:15→23:00)
[2019-06-01] MEDS: 0.9% Saline Lock 10 ML Syringe IV ×4 (05:15→21:43)
[2019-06-01 05:31] LABS: Bedside Glucose 112 mg/dL (70-110)
[2019-06-01 05:39] LABS: Absolute Lymphocyte Count 1.06 X10^3/uL (0.83-4.51); Absolute Neutrophil Count 5.5 X10^3/uL (2.0-7.7); Eosinophil# 0.01 X10^3/uL; Eosinophils% 0.1 % (0-5); Hemoglobin 10.9 g/dL (13.0-16.5); Lymphocyte # 1.06 X10^3/ul (4.0); Lymphocyte % 14.2 % (19-41); Mean Corp Hgb Conc 31.1 g/dL (32-36); Mean Corpuscular Hgb 30.2 pg (27.0-32.0); Mean Platelet Vol. 9.7 fl (6.2-12.0); Monocyte# 0.86 X10^3/uL; Monocyte% 11.5 % (0-10); NRBC Flagged by Analyzer 0 % (0-5); Neutrophil # 5.48 X10^3/uL (2.7-7.7); Neutrophil % 73.7 % (47-70); Platelet Count 147 K/mm3 (150-450); RBC Distribution Width CV 11.9 % (11.6-14.6); RBC Distribution Width SD 42.6 fl (35.1-43.9); Red Blood Count 3.61 M/mm3 (4.6-6.2); White Blood Count 7.5 K/mm3 (4.4-11.0)
[2019-06-01 05:56] LABS: Anion Gap 1 (5-15); BUN 24 mg/dL (7-18); BUN/Creat Ratio 50.8 RATIO (10-20); Calcium,Total 8.3 mg/dL (8.5-10.1); Chloride 94 mmol/L (98-107); Creatinine, Serum 0.47 mg/dL (0.70-1.30); EST Glomerular Filtration Rate 181 mL/min (>60); Est Glom Filt Rate - Afr Amer 219 mL/min (>60); Estimated Creatinine Clearance 51.39 ml/min; Glucose 105 mg/dL (74-106); Potassium 4.2 mmol/L (3.5-5.1); Sodium Level 135 mmol/L (136-145)
--- NOTE | 2019-06-01 06:42 | PN_ITS ---
Subjective: The patient was seen and examined at the bedside this morning. Events from the last 24 hours have been reviewed. The patient is currently afebrile, hemodynamically stable and maintaining appropriate oxygen saturations on BiPAP overnight. Prior to this, the patient was maintaining appropriate oxygen saturations on heated high flow. He denies any resting shortness of breath or chest pain this morning. The patient was evaluated by speech therapy yesterday, who recommended that we proceed with a modified barium swallow, likely to be completed tomorrow. The patient diuresed well yesterday and is currently noted to be overall net +2.1 L for the admission. Objective: The patient's most recent lab work, culture data and imaging studies have all been personally reviewed. Infectious work-up has been unrevealing to date. OUTSIDE MEDICAL RECORDS FROM [facility]: (Obtained during October Hospital Admission) Pulmonary medicine office visit on August 29, [address] Li: Reports that patient is using Anoro daily. Also reported worsening dysphagia with concern that patient may need to be seen again by GI for potential EGD and dilation. The patient does have a history of lung cancer of the right lower lobe ([id number]), s/p SBRT completed 10/19/2015. Follow-up PET scan from June 2017 revealed resolution of the right lower lobe mass. CT chest from June 2018 revealed no evidence of recurrence. CT chest without contrast dated June 2018 revealed significant bilateral emphysema, stable calcified biapical scarring, most pronounced in the right apex. There was demonstration of an ill-defined region of consolidation in the right lung base with radiating bands of scar/fibrosis and associated volume loss, consistent with post radiation fibrosis. There was a stable appearing 5 mm nodule in the left lower lobe. A follow-up office visit with Dr. Li occurred on May 17, 2019 The patient was documented to be having episodes of choking when drinking water. The patient was documented to have severe COPD. 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 A CT chest was just completed through the [facility] on May 16, which demonstrated no signs of cancer recurrence. General: Alert, Cooperative, No apparent distress, - - Currently tolerating BiPAP. HEENT: Atraumatic, PERRLA, Normocephalic Oral: No Gingival or Mucosal Lesions/ Ulcerations Neck: Supple, No Nodes, Trachea Midline Lungs: No rhonchi, No wheeze, No rales, Diminished Cardiovascular: Regular rate, Regular Rhythm, Normal S1, Normal S2, Murmur Abdomen: Bowel Sounds Present, Soft, Non Tender Extremities: No clubbing, No cyanosis, No edema Skin: No breakdown Musculoskeletal: No Tenderness to Palpation of Joints or Extremities Lymphatic: No Cervical, Supraclavicular, or Inguinal Adenopathy Neurological: Neuro grossly intact Psych/Mental Status: Normal Affect, Appropriate Vital Signs Temp Pulse Resp BP Pulse Ox 99 F 72 23 H 119/56 L 96 06/01/19 06:00 06/01/19 06:00 06/01/19 06:00 06/01/19 06:00 06/01/19 06:00 Oxygen Flow Rate (L/min) 6 Oxygen Delivery Method Bi-pap Weight: 153 lb 0.013 oz Body Mass Index (BMI) 24.3 Intake and Output for Last 24 Hours 05/30/19 05/31/19 06/01/19 23:59 23:59 23:59 Intake Total 4147.31 / 4163.61 1624.38 / 1624.38 78.75 / 78.75 Output Total 2425 / 2425 6325 / 6325 450 / 450 Balance 1722.31 / 1738.61 -4700.62 / -4700.62 -371.25 / -371.25 Labs (Last 48 Hours) 05/30/19 05/30/19 05/31/19 11:25 17:12 00:21 WBC RBC Hgb Hct MCV MCH MCHC RDW Std Deviation RDW Coeff of Earline Plt Count MPV Immature Gran % (Auto) Neut % (Auto) Lymph % (Auto) [place]clennan % (Auto) Eos % (Auto) Baso % (Auto) Absolute Neuts (auto) Absolute Lymphs (auto) Nucleated RBC % Sodium Potassium Chloride Carbon Dioxide Anion Gap BUN Creatinine Estim Creat Clear Calc Est GFR (MDRD) Af Amer Est GFR (MDRD) Non-Af BUN/Creatinine Ratio Glucose Calcium POC Glucose 158 H 138 H 138 H 05/31/19 05/31/19 05/31/19 05:14 06:15 06:15 WBC 12.1 H RBC 4.13 L Hgb 12.5 L Hct 39.6 L MCV 95.9 H MCH 30.3 MCHC 31.6 L RDW Std Deviation 41.2 RDW Coeff of Earline 11.8 Plt Count 174 MPV 9.4 Immature Gran % (Auto) 0.600 Neut % (Auto) 80.8 H Lymph % (Auto) 8.6 L Mclennan % (Auto) 9.9 Eos % (Auto) 0.0 Baso % (Auto) 0.1 Absolute Neuts (auto) 9.8 H Absolute Lymphs (auto) 1.04 Nucleated RBC % 0 Sodium 133 L Potassium 4.3 Chloride 96 L Carbon Dioxide 34.0 H Anion Gap 3 L BUN 24 H Creatinine 0.51 L Estim Creat Clear Calc 51.39 Est GFR (MDRD) Af Amer 199 Est GFR (MDRD) Non-Af 164 BUN/Creatinine Ratio 46.8 H Glucose 156 H Calcium 8.4 L POC Glucose 157 H 05/31/19 05/31/19 05/31/19 11:49 17:26 23:00 WBC RBC Hgb Hct MCV MCH MCHC RDW Std Deviation RDW Coeff of Earline Plt Count MPV Immature Gran % (Auto) Neut % (Auto) Lymph % (Auto) Mclennan % (Auto) Eos % (Auto) Baso % (Auto) Absolute Neuts (auto) Absolute Lymphs (auto) Nucleated RBC % Sodium Potassium Chloride Carbon Dioxide Anion Gap BUN Creatinine Estim Creat Clear Calc Est GFR (MDRD) Af Amer Est GFR (MDRD) Non-Af BUN/Creatinine Ratio Glucose Calcium POC Glucose 131 H 112 H 107 06/01/19 06/01/19 06/01/19 05:11 05:20 05:20 WBC 7.5 RBC 3.61 L Hgb 10.9 L Hct 35.0 L MCV 97.0 H MCH 30.2 MCHC 31.1 L RDW Std Deviation 42.6 RDW Coeff of Earline 11.9 Plt Count 147 L MPV 9.7 Immature Gran % (Auto) 0.500 Neut % (Auto) 73.7 H Lymph % (Auto) 14.2 L Mclennan % (Auto) 11.5 H Eos % (Auto) 0.1 Baso % (Auto) 0.0 Absolute Neuts (auto) 5.5 Absolute Lymphs (auto) 1.06 Nucleated RBC % 0 Sodium 135 L Potassium 4.2 Chloride 94 L Carbon Dioxide 40.0 H Anion Gap 1 L BUN 24 H Creatinine 0.47 L Estim Creat Clear Calc 51.39 Est GFR (MDRD) Af Amer 219 Est GFR (MDRD) Non-Af 181 BUN/Creatinine Ratio 50.8 H Glucose 105 Calcium 8.3 L POC Glucose 112 H Microbiology 05/28/19 14:15 Sputum, Induced/Lukens Gram Stain - Final 05/28/19 14:15 Sputum, Induced/Lukens Respiratory Culture - Final 05/27/19 23:40 Blood Culture (Wb) - Anticubital Right Blood Culture - Preliminary No growth in 48 hours. 05/28/19 01:00 Blood Culture (Wb) - Anticubital Left Blood Culture - Preliminary No growth in 48 hours. 05/28/19 09:30 Sputum, Expectorated/Coughed Gram Stain - Final 05/28/19 09:30 Sputum, Expectorated/Coughed Respiratory Culture - Final 05/28/19 04:15 Urine, Catheterized Urine Culture - Final Culture exhibits no growth. Clinical Impression(s) from Imaging Studies Chest X-Ray 05/27/19 23:38 IMPRESSION: Chronic interstitial lung disease without significant change since the previous study. Electronically Signed: Swetha Tracy, at 0:34 EDT Tel , Service support , Chest CTA 05/28/19 01:08 IMPRESSION: No demonstrated pulmonary embolism or arterial dissection. Possible pulmonary edema or bilateral pneumonia. Small bilateral pleural effusions. There is irregular mass in the right lower lobe measures approximately 6.2 x 5.6 cm most likely represent a neoplasm. Electronically Signed: Swetha Tracy, at 2:13 EDT Tel , Service support , Chest X-Ray 05/28/19 13:39 IMPRESSION: The tip of the endotracheal tube is at 6.7 cm proximal to nicole. The tip of the orogastric tube is in the distal body of the stomach. Improved aeration of both lung bases with residual infiltrates worse on the right side. Electronically Signed: Caleb Hartman, at 14:32 EDT , Service support , Chest X-Ray 05/28/19 17:45 Medical Necessity - Tobacco Use Smoking Status: Former smoker Tobacco Use: Cigarettes, Cigars Assessment/Plan All Active Problems (Last Reviewed 05/28/19 @ 02:11 by Jacobo Unger MD) Severe sepsis (Acute) Sepsis (Acute) COPD exacerbation (Acute) Dyspnea (Acute) Acute exacerbation of chronic obstructive pulmonary disease (COPD) (Resolved) Acute on chronic diastolic (congestive) heart failure (Resolved) Acute respiratory failure with hypoxia and hypercapnia (Resolved) Bilateral pneumonia (Resolved) CAP (community acquired pneumonia) (Resolved) Dehydration (Resolved) Drug rash (Resolved) Hyperglycemia (Resolved) Hyponatremia (Resolved) Hypotension (Resolved) Pulmonary congestion (Resolved) Severe sepsis (Resolved) RECOMMENDATIONS: 1. Continue BiPAP support with naps and nightly. 2. Continue supplemental oxygen and wean to maintain saturations at or above 90%. 3. Transition to once daily IV Lasix. 4. Transition to once daily IV steroids. 5. Await modified barium swallow tomorrow. 6. Encourage incentive spirometer use and mobilize patient as tolerated. 7. Continue bronchodilators as ordered. 8. Continue appropriate ICU prophylaxis. IMPRESSIONS: 1. Acute on chronic combined respiratory failure Likely secondary to COPD with exacerbation with concern for underlying pulmonary infectious process. The patient was subsequently placed on broad-spectrum anti microbial coverage. Initial attempts at the use of noninvasive positive pressure ventilatory support eventually proved to be unsuccessful and the patient required intubation on May 28. The patient did have bilateral groundglass changes noted on CTA chest. The patient was then able to be successfully extubated on May 31. We will plan to utilize BiPAP therapy as needed. He has evidence of a severe airflow obstruction based upon PFTs completed through the [facility]. The patient will be continued on broad- spectrum antimicrobials with plans to complete an empiric 7-day treatment c ourse. Continue bronchodilators and steroids as ordered. Given that the patient has a significant amount of underlying anxiety, I do feel that he would benefit from referral to palliative care. In the meantime, the patient has already been started on BuSpar and low-dose PRN Ativan. The patient is awaiting a modified barium swallow prior to advancement of diet over concerns for aspiration. 2. Septic shock secondary to community-acquired versus aspiration pneumonia Continue current supportive measures as noted above with broad-spectrum antimicrobial coverage. Vasopressor support has been weaned at this time. Plan to complete a 7-day treatment course of antibiotics. 3. Personal history of non-small cell lung cancer/right lower lobe masslike de nsity From review of outside medical records through the 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 There has been no evidence of cancer recurrence according to the patient's pulmonary provider at [facility]. 4. Congestive heart failure/Mobitz type II heart block status post pacemaker placement Continue once daily IV Lasix as ordered. 5. Pulmonary hypertension/hypertension/hyperlipidemia/advanced age/CODE STATUS Complicates care, management, recovery and prognosis. Physical therapy to work with patient as tolerated. Goals of care/CODE STATUS was discussed with the patient prior to intubation and he wished to remain full code. This note was generated with [employer] dictation software. It may contain incorrect words, spelling, and punctuation that were not noted in checking the note before signing. Code Visit Inpatient E&M: [id number] [facility] Hosp L3
--- NOTE | 2019-06-01 07:02 | PCM.PROGNOTE ---
Patient Problems: Active and Suspected Problems (Last Reviewed 05/28/19 @ 02:11 by Jacobo Unger MD) COPD exacerbation (Acute) Subjective: Patient was extubated on 05/31/2019 Day #5 antibiotics-meropenem, vancomycin discontinued 05/31/2019 Intravenous steroids have been tapered to 40 mg IV daily T-max past 24 hours is 99.6 ?F. Blood pressure is stable off pressors. Heart rate is within normal limits. Respiratory rate is in the low 20s. Currently on BiPAP with a 35% FiO2 and maintaining an oxygen saturation of 96%. Fluid balance on 05/31/2019 was -4700. He had 6325 cc of urine. Currently on Lasix 40 mg twice daily. Sputum cultures from 05/28/2019. Mixed normal respiratory james. Tells me that he is still anxious. The Ativan he received yesterday helped him. He would like to try Klonopin when he is approved for a diet. MBS with esophagram ordered for Sunday. Seen by ST today and will remain NPO until the MBS is completed. - Physical Exam Vitals/I&O's: Vital Signs Temp Pulse Resp BP Pulse Ox 99 F 72 23 H 119/56 L 96 06/01/19 06:00 06/01/19 06:00 06/01/19 06:00 06/01/19 06:00 06/01/19 06:00 Oxygen Flow Rate (L/min) 6 Oxygen Delivery Method Bi-pap Weight: 153 lb 0.013 oz Body Mass Index (BMI) 24.3 Intake and Output for Last 24 Hours 05/30/19 05/31/19 06/01/19 23:59 23:59 23:59 Intake Total 4147.31 / 4163.61 1624.38 / 1624.38 78.75 / 78.75 Output Total 2425 / 2425 6325 / 6325 450 / 450 Balance 1722.31 / 1738.61 -4700.62 / -4700.62 -371.25 / -371.25 General: Alert, Oriented x3, Cooperative, No apparent distress, - - on High flow oxygen via NC. HEENT: Atraumatic, PERRLA, EOMI Oral: No Gingival or Mucosal Lesions/ Ulcerations, Dry Mucosa Neck: No Nodes, Trachea Midline Lungs: Clear to auscultation Cardiovascular: Regular rate, Regular Rhythm - mostly paced, Murmur - no change is the aortic stenosis MM, No rub noted, No Gallop Abdomen: Bowel Sounds Present, Soft, Non Tender, Distended - but soft and no guarding with palpation.....states this is his normal., - - urine in the ragland bag is pale yellow Extremities: No edema, - - both feet are warm. Skin: No rashes, No breakdown Neurological: Cranial nerves II-XII grossly intact, Neuro grossly intact Psych/Mental Status: Appropriate, Flat Affect - denies feeling depressed. Discussed advance directives with him and he does not seem to want to talk about end of life issues. Also discussed Palliative care......he looks to his family for help with decisions but, they maintain that he has to make the decisions. When I asked him if he would ever want to go on a ventilator again he could not give me an answer. Microbiology Past 72 Hours 05/28/19 14:15 Sputum, Induced/Lukens Gram Stain - Final 05/28/19 14:15 Sputum, Induced/Lukens Respiratory Culture - Final 05/27/19 23:40 Blood Culture (Wb) - Anticubital Right Blood Culture - Preliminary No growth in 48 hours. 05/28/19 01:00 Blood Culture (Wb) - Anticubital Left Blood Culture - Preliminary No growth in 48 hours. 05/28/19 09:30 Sputum, Expectorated/Coughed Gram Stain - Final 05/28/19 09:30 Sputum, Expectorated/Coughed Respiratory Culture - Final 05/28/19 04:15 Urine, Catheterized Urine Culture - Final Culture exhibits no growth. Laboratory Results 05/31/19 11:49: POC Glucose 131 H 05/31/19 17:26: POC Glucose 112 H 05/31/19 23:00: POC Glucose 107 06/01/19 05:11: POC Glucose 112 H 06/01/19 05:20: WBC 7.5, RBC 3.61 L, Hgb 10.9 L, Hct 35.0 L, MCV 97.0 H, MCH 30.2, MCHC 31.1 L, RDW Std Deviation 42.6, RDW Coeff of Earline 11.9, Plt Count 147 L, MPV 9.7, Immature Gran % (Auto) 0.500, Neut % (Auto) 73.7 H, Lymph % (Auto) 14.2 L, [place] % (Auto) 11.5 H, Eos % (Auto) 0.1, Baso % (Auto) 0.0, Absolute Neuts (auto) 5.5, Absolute Lymphs (auto) 1.06, Nucleated RBC % 0 06/01/19 05:20: Sodium 135 L, Potassium 4.2, Chloride 94 L, Carbon Dioxide 40.0 H, Anion Gap 1 L, BUN 24 H, Creatinine 0.47 L, Estim Creat Clear Calc 51.39, Est GFR (MDRD) Af Amer 219, Est GFR (MDRD) Non-Af 181, BUN/Creatinine Ratio 50.8 H, Glucose 105, Calcium 8.3 L Current Medications Acetaminophen (Tylenol) 650 mg RECTAL Q6H PRN PRN PRN Reason: Pain Score 1-10/10 Albuterol Sulfate (Ventolin Aerosols) 2.5 mg INHALATION Q2H PRN PRN PRN Reason: SHORTNESS OF BREATH Chlorhexidine Gluconate () 1 each TOPICAL DAILY [facility] Last Admin: 05/31/19 03:12 Dose: 1 each Documented by: Dextrose (D50w Syringe) 0 gm IV X1 PRN; Protocol PRN Reason: Hypoglycemia Enoxaparin Sodium (Lovenox) 40 mg SC DAILY@1000 [facility] Last Admin: 05/31/19 09:33 Dose: 40 mg Documented by: Famotidine (Pepcid) 20 mg PO BID [facility] Last Admin: 05/31/19 21:09 Dose: Not Given Documented by: Furosemide (Lasix) 40 mg IV DAILY [facility] Glucagon () 1 mg IM .X1 PRN PRN Reason: Hypoglycemia Sodium Chloride () 250 mls @ 15 mls/hr IV .[id number] PRN PRN Reason: Saline Flush Last Infusion: 05/31/19 13:32 Dose: Infused Documented by: Meropenem 1 gm/ Sodium (Chloride) 120 mls @ 33 mls/hr IV Q8 [facility] Last Admin: 06/01/19 05:15 Dose: 33 mls/hr Documented by: Sodium Chloride () 250 mls @ 15 mls/hr IV .[id number] PRN PRN Reason: Saline Flush Last Infusion: 06/01/19 01:56 Dose: 0 mls/hr Documented by: Insulin Human Lispro (Humalog Kwikpen (Bkc)) 0 unit SC Q6 [facility]; Protocol Last Admin: 06/01/19 05:18 Dose: Not Given Documented by: Ipratropium [place] (Atrovent) 0.5 mg INHALATION Q4H.RT WEI Last Admin: 06/01/19 06:47 Dose: 0.5 mg Documented by: Lorazepam (Ativan) 0.25 mg IV Q6H PRN PRN PRN Reason: ANXIETY Last Admin: 05/31/19 17:28 Dose: 0.25 mg Documented by: Methylprednisolone (Solu-Medrol) 40 mg IV DAILY [facility] Ondansetron HCl (Zofran) 4 mg IV Q8H PRN PRN PRN Reason: NAUSEA/VOMITING Senna/Docusate Sodium (Senokot-S, Angeli-Colace) 2 tablet PO BID [facility] Last Admin: 05/31/19 21:10 Dose: Not Given Documented by: Sertraline HCl (Zoloft) 50 mg PO DAILY [facility] Last Admin: 05/31/19 09:27 Dose: Not Given Documented by: Sodium Chloride () 10 - 40 ml IV UD PRN PRN Reason: SALINE FLUSH Last Admin: 06/01/19 05:15 Dose: 20 ml Documented by: Sodium Chloride (0.9% Nacl (Sterile) Posiflush) 10 - 40 ml IV UD PRN PRN Reason: Port access or dressing change Sodium Chloride ([place] Nasal [place]) 2 spray NASAL Q4H PRN PRN Reason: NASAL DRYNESS Medical Necessity - Tobacco Use Smoking Status: Former smoker Tobacco Use: Cigarettes, Cigars Assessment/Plan All Active Problems (Last Reviewed 05/28/19 @ 02:11 by Jacobo Unger MD) Severe sepsis (Acute) Sepsis (Acute) COPD exacerbation (Acute) Dyspnea (Acute) Acute exacerbation of chronic obstructive pulmonary disease (COPD) (Resolved) Acute on chronic diastolic (congestive) heart failure (Resolved) Acute respiratory failure with hypoxia and hypercapnia (Resolved) Bilateral pneumonia (Resolved) CAP (community acquired pneumonia) (Resolved) Dehydration (Resolved) Drug rash (Resolved) Hyperglycemia (Resolved) Hyponatremia (Resolved) Hypotension (Resolved) Pulmonary congestion (Resolved) Severe sepsis (Resolved) Day # 5 Merrem Extubated 05/31 to BIPAP when sleeping and napping and high flow NC oxygen when not sleeping Impressions 1. Septic shock with acute on chronic combined respiratory failure more likely than not secondary to aspiration pneumonia. Continue Merrem for a total of 7 days. 2. chronic dysphagia - seen by [facility] and esophagram on 06/02 3. acute Pneumonia - suspect aspiration. Legionella and streptococcal antigens in the urine are negative. Influenza is negative. Respiratory panel is negative. Sputum Gram stain shows 3+ gram-positive cocci in clusters and chains. MRSA nasal screen was negative. Blood cultures have no growth. 4. generalized anxiety with panic attacks chronically at home - will maintain on sertraline. The Ativan at 0.25 mg IV helps him. When he is approved for a diet will start Klonopin 0.25 MG Q 12H 5. History of non-small cell lung cancer-treated with radiation and sometimes follows at [facility] [place] and sometimes at [place]. 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 Severe centrilobular bullous emphysema 7. Severe pulmonary hypertension with a right ventricular systolic pressure estimated at 78 on echocardiogram in October 2018. 8. Cardiomyopathy with a 45% EF in October 2018 9. Moderate to severe aortic valve stenosis with evidence of diastolic dysfunction 10. 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 Hyponatremia-resolved 12. enoxaparin for DVT prophylaxis. Continue ESTEBAN hose and SCDs. Pepcid for GI prophylaxis. Discussed advanced directives with the pt and he is unable to make a decision. Also discussed palliative care and he is unable to make a decision about that at this time but, he will consider it. All oral meds on hold until the MBS/esophagram. susp[ect he may have esophageal strictures from the radiation. D/W Dr. Mccartney and the ICU team on rounds
--- NOTE | 2019-06-01 09:43 | CPS ---
increased oxygen on high flow heated humidity so patient can recover from physical therapy, will wean back down.
[2019-06-01] MEDS: Furosemide 40 MG/4 ML Vial IV (09:51)
[2019-06-01] MEDS: Enoxaparin 40 MG/0.4 ML Syringe SC (11:10)
[2019-06-01] MEDS: Famotidine 200 MG/20 ML MDV 20 MG in 0.9% Normal Saline (Pres. free 8 ML 300 MG IV ×2 (11:10→21:43)
[2019-06-01] MEDS: Acetaminophen 650 MG Suppository RECTAL (11:30)
[2019-06-01 11:55] LABS: Bedside Glucose 118 mg/dL (70-110)
[2019-06-01 19:26] LABS: Bedside Glucose 108 mg/dL (70-110)
[2019-06-01] MEDS: CHLORHEXIDINE GLUC 2% CLOTH 1 EACH TOWELETTE TOPICAL (19:59)
[2019-06-01 23:40] LABS: Bedside Glucose 96 mg/dL (70-110)
[2019-06-02] VITALS (26 sets, daily range): BP systolic 89–136; BP diastolic 50–84; PULSE 66–109; RESP 12–27; TEMP 36.4–36.8; O2SAT 93–100
[2019-06-02] MEDS: Ipratropium 0.5 MG/2.5 ML SOLUTION INHALATION ×5 (02:13→19:14)
[2019-06-02 05:41] LABS: Bedside Glucose 87 mg/dL (70-110)
--- NOTE | 2019-06-02 07:10 | PCM.PN.INT ---
Subjective: Patient did well overnight. No acute issues were reported. Patient did tolerate BiPAP without difficulty. Patient reports subjective improvement in overall condition. Patient did require high flow nasal cannula oxygen yesterday, but is being attempted on regular nasal cannula at this morning. Patient is supposed to have a swallow evaluation today. General: Alert, Oriented x3, Cooperative, No apparent distress, - - Mild conversational dyspnea. HEENT: Atraumatic, PERRLA, EOMI, Normocephalic, - - No scleral icterus or injection noted. Oral: Moist Mucosa, No Gingival or Mucosal Lesions/ Ulcerations Neck: Supple, No JVD, No Nodes, Trachea Midline Lungs: No rhonchi, No wheeze, No rales, Diminished Cardiovascular: Regular rate, Regular Rhythm, Normal S1, Normal S2, Murmur - Grade 2 out of 6 systolic ejection murmur at the right sternal border, No rub noted, No Gallop Abdomen: Bowel Sounds Present, Soft, Non Tender, Non-Distended Extremities: No clubbing, No cyanosis, No edema Skin: No rashes, No breakdown Musculoskeletal: No Tenderness to Palpation of Joints or Extremities Lymphatic: No Cervical, Supraclavicular, or Inguinal Adenopathy Neurological: Cranial nerves II-XII grossly intact, Neuro grossly intact, Motor Exam 5/5 strength throughout Psych/Mental Status: Alert and oriented to time, place, person, mood and affect Vital Signs Temp Pulse Resp BP Pulse Ox 36.4 C L 83 17 111/51 L 96 06/02/19 05:00 06/02/19 06:00 06/02/19 06:00 06/02/19 06:00 06/02/19 06:00 Oxygen Flow Rate (L/min) 6 Oxygen Delivery Method Nasal Cannula Weight: 65.1 kg Body Mass Index (BMI) 24.3 Intake and Output for Last 24 Hours 05/31/19 06/01/19 06/02/19 23:59 23:59 23:59 Intake Total 1624.38 / 1624.38 404.20 / 404.20 197.00 / 197.00 Output Total 6325 / 6325 2950 / 2950 200 / 200 Balance -4700.62 / -4700.62 -2545.80 / -2545.80 -3.00 / -3.00 Labs (Last 48 Hours) 1005/31/19 05/31/19 11:49 17:26 23:00 WBC RBC Hgb Hct MCV MCH MCHC RDW Std Deviation RDW Coeff of Earline Plt Count MPV Immature Gran % (Auto) Neut % (Auto) Lymph % (Auto) [place] % (Auto) Eos % (Auto) Baso % (Auto) Absolute Neuts (auto) Absolute Lymphs (auto) Nucleated RBC % Sodium Potassium Chloride Carbon Dioxide Anion Gap BUN Creatinine Estim Creat Clear Calc Est GFR (MDRD) Af Amer Est GFR (MDRD) Non-Af BUN/Creatinine Ratio Glucose Calcium POC Glucose 131 H 112 H 107 06/01/19 06/01/19 06/01/19 05:11 05:20 05:20 WBC 7.5 RBC 3.61 L Hgb 10.9 L Hct 35.0 L MCV 97.0 H MCH 30.2 MCHC 31.1 L RDW Std Deviation 42.6 RDW Coeff of Earline 11.9 Plt Count 147 L MPV 9.7 Immature Gran % (Auto) 0.500 Neut % (Auto) 73.7 H Lymph % (Auto) 14.2 L [place] % (Auto) 11.5 H Eos % (Auto) 0.1 Baso % (Auto) 0.0 Absolute Neuts (auto) 5.5 Absolute Lymphs (auto) 1.06 Nucleated RBC % 0 Sodium 135 L Potassium 4.2 Chloride 94 L Carbon Dioxide 40.0 H Anion Gap 1 L BUN 24 H Creatinine 0.47 L Estim Creat Clear Calc 51.39 Est GFR (MDRD) Af Amer 219 Est GFR (MDRD) Non-Af 181 BUN/Creatinine Ratio 50.8 H Glucose 105 Calcium 8.3 L POC Glucose 112 H 06/01/19 06/01/19 06/01/19 11:45 19:20 23:36 WBC RBC Hgb Hct MCV MCH MCHC RDW Std Deviation RDW Coeff of Earline Plt Count MPV Immature Gran % (Auto) Neut % (Auto) Lymph % (Auto) [place] % (Auto) Eos % (Auto) Baso % (Auto) Absolute Neuts (auto) Absolute Lymphs (auto) Nucleated RBC % Sodium Potassium Chloride Carbon Dioxide Anion Gap BUN Creatinine Estim Creat Clear Calc Est GFR (MDRD) Af Amer Est GFR (MDRD) Non-Af BUN/Creatinine Ratio Glucose Calcium POC Glucose 118 H 108 96 06/02/19 05:33 WBC RBC Hgb Hct MCV MCH MCHC RDW Std Deviation RDW Coeff of Earline Plt Count MPV Immature Gran % (Auto) Neut % (Auto) Lymph % (Auto) [place] % (Auto) Eos % (Auto) Baso % (Auto) Absolute Neuts (auto) Absolute Lymphs (auto) Nucleated RBC % Sodium Potassium Chloride Carbon Dioxide Anion Gap BUN Creatinine Estim Creat Clear Calc Est GFR (MDRD) Af Amer Est GFR (MDRD) Non-Af BUN/Creatinine Ratio Glucose Calcium POC Glucose 87 Medical Necessity - Tobacco Use Smoking Status: Former smoker Tobacco Use: Cigarettes, Cigars Assessment/Plan All Active Problems (Last Reviewed 05/28/19 @ 02:11 by Jacobo Unger MD) Severe sepsis (Acute) Sepsis (Acute) COPD exacerbation (Acute) Dyspnea (Acute) Acute exacerbation of chronic obstructive pulmonary disease (COPD) (Resolved) Acute on chronic diastolic (congestive) heart failure (Resolved) Acute respiratory failure with hypoxia and hypercapnia (Resolved) Bilateral pneumonia (Resolved) CAP (community acquired pneumonia) (Resolved) Dehydration (Resolved) Drug rash (Resolved) Hyperglycemia (Resolved) Hyponatremia (Resolved) Hypotension (Resolved) Pulmonary congestion (Resolved) Severe sepsis (Resolved) RECOMMENDATIONS: 1. Continue BiPAP support with naps and nightly. 2. Continue supplemental oxygen and wean to maintain saturations at or above 90%. 3. Continue once daily IV Lasix and steroids. 4. Possibly transition to p.o. following results of modified barium swallow 5. Encourage incentive spirometer use and mobilize patient as tolerated. 6. Continue bronchodilators as ordered. 7. Okay to transfer from the intensive care unit from my perspective IMPRESSIONS: 1. Acute on chronic combined respiratory failure Patient appears to be doing well from a respiratory standpoint. Will attempt to move to regular nasal cannula oxygen. Patient does have a barium swallow later today. Await results prior to transition to p.o. medications. Patient is to complete a 7-day course of empiric antibiotics. Steroids have been capped IV secondary to aspiration concerns. Patient does have advanced COPD per history and requires 4 L nasal cannula at baseline. Patient may benefit from palliative evaluation. 2. Septic shock secondary to community-acquired versus aspiration pneumonia Continue current supportive measures as noted above with broad-spectrum antimicrobial coverage. Vasopressor support has been weaned at this time. Plan to complete a 7-day treatment course of antibiotics. 3. 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 There has been no evidence of cancer recurrence according to the patient's pulmonary provider at [facility]. 4. Congestive heart failure/Mobitz type II heart block status post pacemaker placement Continue once daily IV Lasix as ordered. Can transition to PO if passes swallow evaluation. 5. Pulmonary hypertension/hypertension/hyperlipidemia/advanced age/CODE STATUS Complicates care, management, recovery and prognosis. Physical therapy to work with patient as tolerated. Goals of care/CODE STATUS was discussed with the patient prior to intubation and he wished to remain full code. Code Visit Inpatient E&M: 453[address] [facility] L3
[2019-06-02] MEDS: CHLORHEXIDINE GLUC 2% CLOTH 1 EACH TOWELETTE TOPICAL (10:40)
[2019-06-02] MEDS: Furosemide 40 MG/4 ML Vial IV (10:41)
[2019-06-02] MEDS: Enoxaparin 40 MG/0.4 ML Syringe SC (10:41)
--- NOTE | 2019-06-02 11:24 | PCM.PN.HOSP ---
Patient Problems: Active and Suspected Problems (Last Reviewed 05/28/19 @ 02:11 by Jacobo Unger MD) COPD exacerbation (Acute) Subjective: Doing well today, says that he feels better than when he came in. This is similar to his previous COPD exacerbation though it was not this severe. He had that in October of last year. Vitals/I&O's: Vital Signs Temp Pulse Resp BP Pulse Ox 97.6 F L 87 12 111/51 L 97 06/02/19 05:00 06/02/19 06:29 06/02/19 06:29 06/02/19 06:00 06/02/19 06:29 Oxygen Flow Rate (L/min) 4 Oxygen Delivery Method Nasal Cannula Weight: 143 lb 8.335 oz Body Mass Index (BMI) 24.3 Intake and Output for Last 24 Hours 05/31/19 06/01/19 06/02/19 23:59 23:59 23:59 Intake Total 1624.38 / 1624.38 404.20 / 404.20 307.65 / 307.65 Output Total 6325 / 6325 2950 / 2950 200 / 200 Balance -4700.62 / -4700.62 -2545.80 / -2545.80 107.65 / 107.65 General: Alert, Oriented x3, Cooperative, No apparent distress HEENT: Atraumatic, PERRLA, EOMI, Normocephalic Oral: Moist Mucosa Neck: Supple, No JVD Lungs: Clear to auscultation, Normal air movement, No rhonchi, No wheeze, No rales, Diminished Cardiovascular: Regular rate, Regular Rhythm, Normal S1, Normal S2, Murmur - 2 out of 6 CLYDE at RUSB Abdomen: Soft, Non Tender, Non-Distended, No Hepato-splenomegaly Extremities: No edema, Capillary Refill Less than 3 Seconds Skin: No rashes, No breakdown Neurological: Neuro grossly intact, Sensory exam intact to light touch and pain Psych/Mental Status: Normal Affect, Appropriate Microbiology Past 72 Hours 05/27/19 23:40 Blood Culture (Wb) - Anticubital Right Blood Culture - Final No growth in 5 days. 05/28/19 01:00 Blood Culture (Wb) - Anticubital Left Blood Culture - Final No growth in 5 days. 05/28/19 14:15 Sputum, Induced/Lukens Gram Stain - Final 05/28/19 14:15 Sputum, Induced/Lukens Respiratory Culture - Final 05/28/19 09:30 Sputum, Expectorated/Coughed Gram Stain - Final 05/28/19 09:30 Sputum, Expectorated/Coughed Respiratory Culture - Final 05/28/19 04:15 Urine, Catheterized Urine Culture - Final Culture exhibits no growth. Laboratory Results 06/01/19 11:45: POC Glucose 118 H 06/01/19 19:20: POC Glucose 108 06/01/19 23:36: POC Glucose 96 06/02/19 05:33: POC Glucose 87 Current Medications Acetaminophen (Tylenol) 650 mg RECTAL Q6H PRN PRN PRN Reason: Pain Score 1-05/15 Last Admin: 06/01/19 11:30 Dose: 650 mg Documented by: Albuterol Sulfate (Ventolin Aerosols) 2.5 mg INHALATION Q2H PRN PRN PRN Reason: SHORTNESS OF BREATH Chlorhexidine Gluconate () 1 each TOPICAL DAILY [facility] Last Admin: 06/02/19 10:40 Dose: 1 each Documented by: Dextrose (D50w Syringe) 0 gm IV X1 PRN; Protocol PRN Reason: Hypoglycemia Enoxaparin Sodium (Lovenox) 40 mg SC DAILY@1000 [facility] Last Admin: 06/02/19 10:41 Dose: 40 mg Documented by: Furosemide (Lasix) 40 mg IV DAILY [facility] Last Admin: 06/02/19 10:41 Dose: 40 mg Documented by: Glucagon () 1 mg IM .X1 PRN PRN Reason: Hypoglycemia Sodium Chloride () 250 mls @ 15 mls/hr IV .[id number] PRN PRN Reason: Saline Flush Last Infusion: 06/02/19 05:25 Dose: 0 mls/hr Documented by: Meropenem 1 gm/ Sodium (Chloride) 120 mls @ 33 mls/hr IV Q8 [facility] Last Infusion: 06/02/19 09:04 Dose: Infused Documented by: Sodium Chloride () 250 mls @ 15 mls/hr IV .[id number] PRN PRN Reason: Saline Flush Last Infusion: 06/01/19 22:00 Dose: Infused Documented by: Famotidine 20 mg/ Sodium (Chloride) 10 mls @ 300 mls/hr IV Q12 [facility] Last Infusion: 10/27/19 21:45 Dose: Infused Documented by: Insulin Human Lispro (Humalog Kwikpen (Bkc)) 0 unit SC Q6 [facility]; Protocol Last Admin: 06/02/19 05:34 Dose: Not Given Documented by: Ipratropium [place] (Atrovent) 0.5 mg INHALATION Q4H.RT WEI Last Admin: 06/02/19 11:06 Dose: 0.5 mg Documented by: Lorazepam (Ativan) 0.25 mg IV Q6H PRN PRN PRN Reason: ANXIETY Last Admin: 05/31/19 17:28 Dose: 0.25 mg Documented by: Methylprednisolone (Solu-Medrol) 40 mg IV DAILY [facility] Last Admin: 06/02/19 10:42 Dose: 40 mg Documented by: Ondansetron HCl (Zofran) 4 mg IV Q8H PRN PRN PRN Reason: NAUSEA/VOMITING Senna/Docusate Sodium (Senokot-S, Angeli-Colace) 2 tablet PO BID [facility] Last Admin: 06/02/19 10:41 Dose: Not Given Documented by: Sertraline HCl (Zoloft) 50 mg PO DAILY [facility] Last Admin: 06/01/19 10:13 Dose: Not Given Documented by: Sodium Chloride () 10 - 40 ml IV UD PRN PRN Reason: SALINE FLUSH Last Admin: 06/01/19 21:43 Dose: 20 ml Documented by: Sodium Chloride (0.9% Nacl (Sterile) Posiflush) 10 - 40 ml IV UD PRN PRN Reason: Port access or dressing change Sodium Chloride ([place] Nasal [place]) 2 spray NASAL Q4H PRN PRN Reason: NASAL DRYNESS Medical Necessity - Tobacco Use Smoking Status: Former smoker Tobacco Use: Cigarettes, Cigars Assessment/Plan All Active Problems (Last Reviewed 05/28/19 @ 02:11 by Jacobo Unger MD) Severe sepsis (Acute) Sepsis (Acute) COPD exacerbation (Acute) Dyspnea (Acute) Acute exacerbation of chronic obstructive pulmonary disease (COPD) (Resolved) Acute on chronic diastolic (congestive) heart failure (Resolved) Acute respiratory failure with hypoxia and hypercapnia (Resolved) Bilateral pneumonia (Resolved) CAP (community acquired pneumonia) (Resolved) Dehydration (Resolved) Drug rash (Resolved) Hyperglycemia (Resolved) Hyponatremia (Resolved) Hypotension (Resolved) Pulmonary congestion (Resolved) Severe sepsis (Resolved) 1. Septic shock secondary to community-acquired pneumonia versus aspiration pneumonia/acute on chronic respiratory failure secondary to acute COPD exacerbation/chronic dysphagia -Initially started on meropenem and vancomycin, however the vancomycin has been discontinued with a negative MRSA PCR. -Respiratory culture is negative, stain did show 3+ gram-positive cocci in chains and clusters continue with the meropenem -He is tolerating BiPAP at night very well, he was on high flow nasal cannula yesterday and is currently on a normal nasal cannula at 4 L, oxygen saturation is 97% -Currently n.p.o. awaiting a swallow study today by speech therapy -Sepsis has resolved 2. History of non-small cell lung cancer/history of tobacco abuse/severe centrilobular bullous emphysema -We will continue with steroids for his COPD -The right lower lobe abnormality seen on x-ray is chronic and felt to be secondary to his radiation therapy for his non-small cell lung cancer 3. Severe pulmonary hypertension/chronic diastolic CHF/moderate to severe aortic valve stenosis/pacemaker for Mobitz type II AV block/HTN -He has a pacemaker in for his Mobitz type II -Continue with IV Lasix for his diastolic shift, can resume p.o. if he passes his swallow study -Blood pressure is stable we will continue to monitor, can restart Norvasc and losartan if necessary and if he passes swallow study 4. Anxiety/depression -Stable -He did receive a dose of Ativan 2 days ago which seemed to help -Continue with his Zoloft DVT: Lovenox Code Visit Inpatient E&M: [address] [facility] L2
[2019-06-02] MEDS: Famotidine 200 MG/20 ML MDV 20 MG in 0.9% Normal Saline (Pres. free 8 ML 300 MG IV ×2 (11:26→22:10)
[2019-06-02] MEDS: 0.9% Saline Lock 10 ML Syringe IV ×3 (11:36→22:14)
[2019-06-02 13:31] LABS: Bedside Glucose 90 mg/dL (70-110)
--- NOTE | 2019-06-02 13:41 | CASEMGMT ---
RN HARVEY Note: Participated in interdisciplinary rounds this am. Pt is awake, on 4L NC. Changed to PCU status, not transferred yet. Awaiting PT/OT evaluations to determine LOC on dc: Home w/HHS vs SNF. Per [facility] Cai- anticipate pt may need SNF stay, PT/OT to discuss with CM after therapy sessions today, then will address with pt and his . -Pt has 5L concentrator at home. Call to [facility]- verified pt is customer for home oxygen. If greater than 5L needed, pt will need to have higher flow concentrator ordered. Pt has portability in home already. -DC PLAN: undetermined. Home with HHS vs SNF. Payton CRAWFORD RN ACM
--- NOTE | 2019-06-02 14:00 | SP.MBSS_ITS ---
PRIMARY / SECONDARY DIAGNOSIS: dysphagia (R13.10) CURRENT DIET: NPO DENTITION: upper / lower dentures present, ill-fitting lower dentures MENTAL STATUS: sufficient for participation RESPIRATORY STATUS: O2 via room air REASON FOR REFERRAL: The Patient is an 83 year old male referred for a modified barium swallow (MBS) study to objectively assess the Patients oropharyngeal swallow function under fluoroscopy secondary to concerns for persistent dysphagia and possible esophageal based dysmotility given the history of lung irradiation and esophageal based complaints. MEDICAL HISTORY: Chronic obstructive pulmonary disease, prior lung cancer status post irradiation, bullous emphysema, chronic respiratory failure, non-rheumatic tricuspid valve insufficiency, diastolic dysfunction, nonrheumatic aortic valve stenosis, paroxysmal atrial flutter, conduction disorder of the heart, aortic valve disorder, mobitz type 2 second degree AV block, presence of cardiac pacemaker, essential hypertension, pulmonary hypertension, and gastroesophageal reflux disease. ASSESSMENT PARAMETERS: The Patient participated in a Modified Barium Swallow (MBS) study on 06/02/2019. Dr. Hartman was the radiologist present for this evaluation. This study was recorded in the lateral view and images were sent to PACs for storage. Scoring was completed through each trial using the 8-point Penetration-Aspiration Scale (PAS) and the Videofluoroscopic Scale Score (VSS), and summarized via the Modified Barium Swallow Impairment Profile (MBSImP) and the Bolus Residue Scale (BRS), with severity scoring through the Dysphagia Severity Rating Scale (DSRS) and Swallowing Performance Scale (SPS), and recommended diet textures through the International Dysphagia Diet Standardisation Initiative (IDDSI) RESULTS OF THE EVALUATION: The Patient presents with mild oropharyngeal dysphagia (DSRS: 4; SPS: 5) with grade III SILENT aspiration of thin liquids with abnormal esophageal phase findings requiring further workup. OBJECTIVE ASSESSMENT OF SWALLOW FUNCTION (QUANTITATIVE ? PER TRIAL): PENETRATION / ASPIRATION SCALE (LUGO): 1 = does not enter airway 2 = enters airway/above vocal folds/ejected 3 = enters airway/above vocal folds/not ejected 4 = enters airway/contacts vocal folds/ejected 5 = enters airway/contacts vocal folds/not ejected 6 = enters airway/below vocal folds/ejected 7 = enters airway/below vocal folds/not ejected despite effort 8 = enters airway/below vocal folds/no effort VIDEOFLOROSCOPIC SCALE SCORE (LUGO): Grade I = aspiration of material that has penetrated into the laryngeal vestibule, intact cough reflex Grade II = aspiration < 10 % of the bolus, intact cough reflex Grade III = aspiration of < 10 % of the bolus, reduced cough reflex or aspiration of > 10 % of the bolus, intact cough reflex Grade IV = aspiration of > 10 % of the bolus, reduced cough reflex PENETRATION / ASPIRATION SCALE (SCORE) WITH VIDEOFLOROSCOPIC SCALE SCORE: Thin liquid - 5 mL tsp.: 1 Thin liquids via cup (single sip): 1 ? Grade III [place] thickened liquids via 5 mL tsp.: 1 [place] thickened liquids via cup (single sip): 1 [place] thickened liquids via cup (single sip): 1 [place] thickened liquids via cup (single sip): 1 Pudding via spoon: 1 Regular textured cookie: 1 [place] thickened liquids via cup (single sip): 1 OBJECTIVE ASSESSMENT OF SWALLOW FUNCTION (QUANTITATIVE ? AGGREGATE): MODIFIED BARIUM SWALLOW IMPAIRMENT PROFILE (MBSImP) LABIAL SEAL: 0 (of 4) no labial escape TONGUE CONTROL: 0 (of 3) cohesive bolus BOLUS PREPARATION / MASTICATION: 1 (of 3) slow prolonged; complete recollection BOLUS TRANSPORT / LINGUAL MOTION: 3 (of 4) repetitive / disorganized motion ORAL RESIDUE: 2 (of 4) residue collection on oral structures INITIATION OF PHARYNGEAL SWALLOW: 0 (of 4) posterior angle of ramus SOFT PALATE ELEVATION: 0 (of 4) no bolus between soft palate & pharyngeal wall LARYNGEAL ELEVATION: 0 (of 3) complete superior movement / approximation ANTERIOR HYOID EXCURSION: 1 (of 2) partial movement EPIGLOTTIC MOVEMENT: 1 (of 2) partial inversion LARYNGEAL VESTIBULE CLOSURE: 0 (of 2) complete closure PHARYNGEAL STRIPPING WAVE: 1 (of 2) present / diminished PE SEGMENT OPENIN (of 3) partial distension / duration / obstruction TONGUE BASE RETRACTION: 1 (of 4) trace column of contrast PHARYNGEAL RESIDUE: 2 (of 4) collection of residue ESOPHAGEAL BOLUS CLEARANCE: 4 (of 4) minimal to no esophageal clearance BOLUS RESIDUE SCALE (BRS): 2 (of 6) residue in valleculae DYSPHAGIA SEVERITY RATING SCALE (DSRS): 4 (moderate) SWALLOWING PERFORMANCE SCALE (SPS): 5 (moderate) OBJECTIVE ASSESSMENT OF SWALLOW FUNCTION (QUALITATIVE): ORAL PREPARATORY PHASE: mild (albeit effective) mastication abnormalities with prolonged mastication likely complicated by high flow oxygen demands; sufficient anterior oral containment. ORAL TRANSITIONAL PHASE: overall sufficient bolus transportation with the exception of brief discoordinated lingual movements (undulations) noted with the initial trial of thin liquids via spoon; overall sufficient oral clearance with mild residue cleared with liquid wash; sufficient posterior oral containment across remaining trials. PHARYNGEAL PHASE: no evidence of pharyngeal dyssynchrony; mild reduction in hyolaryngeal excursion with sufficient / consistent laryngeal vestibule pressure generated to expel penetrated material that was not immediately aspirated; mild pharyngeal dysmotility with consolidation within the vallecula following solid trials; no signs of velopharyngeal impairments; ESOPHAGEAL PHASE: esophageal retention with tertiary contractions resulting in retrograde bolus flow and occasional return to the hypopharynx raising concerns when considering aspiration risk; requires further workup via gastroenterology. CONTRIBUTING / COMPLICATING FACTORS AND NOTABLE FINDINGS: absent cough in response to minimal amounts of tracheal aspiration (atussia). RESPONSE TO STRATEGIES: all deficits managed successfully with reduction in bolus rate / volume adjustments, and diet texture / viscosity adjustments. RECOMMENDATIONS AND CONSIDERATIONS: The Patient was noted to SILENTLY aspirate with thin liquids, with clinical assessment at bedside relying on identification of classic overt signs and symptoms of aspiration considered unreliable. All penetration identified very scant in nature, with very minimal amounts of contrast identified (approximately < 5% of bolus). Would strongly discourage advancement past nectar thickened liquids without completion of a repeat modified barium swallow study due to the presence of aspirate identified that was SILENT in nature. RECOMMENDATIONS FOR INTERVENTION: The Patient requires intensive skilled speech-language intervention targeting diet texture management and training / implementation of recommended compensatory strategies; training and implementation of a oral care protocol to reduce the effects of xerostomia and improve / maintain the integrity of the oral mucosa reducing the risk of aspiration related pulmonary complications; training, implementation, and Patient / caregiver education regarding implementation of the [place] Free Water Protocol (FFWP) if / when he is clinically appropriate; Patient / caregiver education regarding elías and post-irradiation dysphagia and associated symptomology; Patient and caregiver education regarding dysphagia associated with chronic obstructive pulmonary disease (COPD); Patient and caregiver training targeting meal preparation / thickened liquid preparation if unable to advance to baseline diet textures prior to discharge. Would further consider training and implementation of oropharyngeal strengthening exercises to facilitate improved oropharyngeal strength and coordination. Strongly encourage dedicated use of incentive spirometer to facilitate improved pulmonary expansion and cough intensity. ADDITIONAL COMMENTS/RECOMMENDATIONS: Results and recommendations were discussed with the Patient and Patients family immediately following MBS completion, with the Patient and Patients family verbalizing understanding and agreement with all recommendations and education provided. We discussed factors impacting effects of aspiration, to include: the quantity of aspiration, the depth of aspiration (trachea or distal airways), and the physical properties of the aspirate. We discussed consequences of oropharyngeal dysphagia, to include pulmonary complications from tracheobronchial aspiration; potential for airway obstruction / asphyxiation; inadequate oral intake because of dysphagia; reduced liquid intake resulting in dehydration; reduced caloric intake resulting in unintentional and potentially medically complicating loss of weight; impairment in mental and physical condition; and complications in overall course of care. DIET TEXTURE RECOMMENDATIONS: Will recommend a pureed textured (IDDSI: 4), nectar thickened liquid (IDDSI: 2) diet RECOMMENDED COMPENSATORY STRATEGIES: Distant supervision, reduced bolus volume / rate of ingestion, liquid chaser at reasonable intervals, MUST be seated upright at 90 degrees DURING PO intake, REMAIN upright for 30-60 minutes POST meal (esophageal dysmotility precaution), medications crushed in purees. IMAGE COUNT: 1986 Eduar Grayson M.A., KRISHNA-BUNCH TRIMMER MOLD, CBIS MBSImP Certified, LSVT Certified [facility] Speech-Language Pathology Department [email or web address]
--- NOTE | 2019-06-02 14:05 | RAD_ITS ---
STUDY: SWALLOWING STUDY REASON FOR EXAM: Male, 83 years old. Dysphagia. TECHNIQUE: The examination was performed with Speech Pathology in attendance. Under fluoroscopic observation, the patient ingested thin barium, thick barium, barium pudding, and barium coated cracker. FLUOROSCOPY TIME: 2:15 minutes/seconds. 1987 images were obtained. RADIOLOGIST INVOLVEMENT: Radiologist was present and providing direct supervision. COMPARISON: None. FINDINGS: The following was observed during swallowing of the various mixtures of barium: Tertiary contractions of the distal esophagus. Thin Barium: Silent aspiration with ingestion of thin liquids. Thick Barium: There was no evidence of aspiration or laryngeal penetration. Barium Pudding: There was no evidence of aspiration or laryngeal penetration. Barium Coated Cracker: There was no evidence of aspiration or laryngeal penetration. RAD/Swallowing Function w/Video IMPRESSION: Silent aspiration with ingestion of thin liquids. The swallow study findings were discussed with the patient by the speech pathologist at the conclusion of the examination. Please see speech pathology report for more information and recommendations. Electronically Signed: Caleb Hartman, at 15:50 EDT , Service support ,
--- NOTE | 2019-06-02 14:09 | CHAPLAIN ---
Type of Pastoral Visit _x__ Initial Visit _x__ Follow-up Visit ___ On-call Visit ___ General Patient Visit ___ Spiritual Assessment ___ Family Conference ___ Bereavement ___ Rapid Response ___ Code Blue ___ Other (describe below) Pastoral Care Referral From _x__ Patient _x__ Family ___ Nurse ___ Physician ___ Airways Control Specialist ___ Chainstitch Tunnel Elastic Operator ___ Other (describe below) Sacrament/Intervention _x__ Active listening ___ Anointing ___ Episcopal ___ Bereavement ___ Communion _x__ Teena exploration ___ ___ Life review _x__ Prayer ___ Reconciliation ___ Sacrament of Sick _x__ Supportive presence ___ Wedding ___ Other (describe below) Pastoral Comments follow up visit but first time patient could speak; pt expresses gratitude for such improvement and spouse indicates that this is answer to many prayers; pt says there are still some things I need to do yet; spiritual care and support are welcomed
[2019-06-02] MEDS: Sertraline 50 MG Tablet PO (15:11)
[2019-06-02 17:51] LABS: Bedside Glucose 121 mg/dL (70-110)
[2019-06-02] MEDS: Senna/Docusate Sodium 1 Tablet 2 TABLET PO (22:09)
[2019-06-02] MEDS: Acetaminophen 325 MG Tablet 650 MG PO (22:10)
[2019-06-03] VITALS (20 sets, daily range): BP systolic 92–140; BP diastolic 44–77; PULSE 61–108; RESP 12–24; TEMP 36.6–37.6; O2SAT 94–99
[2019-06-03 00:16] LABS: Bedside Glucose 90 mg/dL (70-110)
[2019-06-03 06:11] LABS: Bedside Glucose 96 mg/dL (70-110)
[2019-06-03] MEDS: Ipratropium 0.5 MG/2.5 ML SOLUTION INHALATION ×5 (07:25→22:24)
--- NOTE | 2019-06-03 07:41 | PCM.PN.HOSP ---
Patient Problems: Active and Suspected Problems (Last Reviewed 05/28/19 @ 02:11 by Jacobo Unger MD) COPD exacerbation (Acute) Subjective: Feels like he is breathing better today. States that he is okay with going to a half-way facility if that is necessary at discharge Vitals/I&O's: Vital Signs Temp Pulse Resp BP Pulse Ox 98.4 F 85 24 H 140/77 H 98 06/03/19 02:00 06/03/19 06:00 06/03/19 03:09 06/03/19 02:00 06/03/19 03:09 Oxygen Flow Rate (L/min) 4 Oxygen Delivery Method Bi-pap Weight: 140 lb 3.424 oz Body Mass Index (BMI) 24.3 Intake and Output for Last 24 Hours 06/01/19 06/02/19 06/03/19 23:59 23:59 23:59 Intake Total 404.20 / 404.20 769.40 / 769.40 120 / 120 Output Total 2950 / 2950 1700 / 1950 250 / 250 Balance -2545.80 / -2545.80 -930.60 / -1180.60 -130 / -130 General: Alert, Oriented x3, Cooperative, No apparent distress HEENT: Atraumatic, PERRLA, EOMI, Normocephalic Oral: Moist Mucosa Neck: Supple, No JVD Lungs: Clear to auscultation, poor air movement, No rhonchi, No wheeze, No rales, Diminished Cardiovascular: Regular rate, Regular Rhythm, Normal S1, Normal S2, Murmur - 2 out of 6 CLYDE at RUSB Abdomen: Soft, Non Tender, Non-Distended, No Hepato-splenomegaly Extremities: No edema, Capillary Refill Less than 3 Seconds Skin: No rashes, No breakdown Neurological: Neuro grossly intact, Sensory exam intact to light touch and pain Psych/Mental Status: Normal Affect, Appropriate Microbiology Past 72 Hours 05/27/19 23:40 Blood Culture (Wb) - Anticubital Right Blood Culture - Final No growth in 5 days. 05/28/19 01:00 Blood Culture (Wb) - Anticubital Left Blood Culture - Final No growth in 5 days. Laboratory Results 06/02/19 13:08: POC Glucose 90 06/02/19 17:04: POC Glucose 121 H 06/03/19 00:06: POC Glucose 90 06/03/19 05:53: POC Glucose 96 Current Medications Acetaminophen (Tylenol) 650 mg PO Q6H PRN PRN PRN Reason: Pain Score 4-1010 Last Admin: 06/02/19 22:10 Dose: 650 mg Documented by: Albuterol Sulfate (Ventolin Aerosols) 2.5 mg INHALATION Q2H PRN PRN PRN Reason: SHORTNESS OF BREATH Chlorhexidine Gluconate () 1 each TOPICAL DAILY [facility] Last Admin: 06/02/19 10:40 Dose: 1 each Documented by: Dextrose (D50w Syringe) 0 gm IV X1 PRN; Protocol PRN Reason: Hypoglycemia Enoxaparin Sodium (Lovenox) 40 mg SC DAILY@1000 WEI Last Admin: 06/02/19 10:41 Dose: 40 mg Documented by: Furosemide (Lasix) 40 mg IV DAILY [facility] Last Admin: 06/02/19 10:41 Dose: 40 mg Documented by: Glucagon () 1 mg IM .X1 PRN PRN Reason: Hypoglycemia Sodium Chloride () 250 mls @ 15 mls/hr IV .[id number] PRN PRN Reason: Saline Flush Last Infusion: 06/02/19 18:43 Dose: 0 mls/hr Documented by: Meropenem 1 gm/ Sodium (Chloride) 120 mls @ 33 mls/hr IV Q8 [facility] Last Admin: 06/03/19 04:41 Dose: 33 mls/hr Documented by: Sodium Chloride () 250 mls @ 15 mls/hr IV .[id number] PRN PRN Reason: Saline Flush Last Infusion: 06/01/19 22:00 Dose: Infused Documented by: Famotidine 20 mg/ Sodium (Chloride) 10 mls @ 300 mls/hr IV Q12 [facility] Last Infusion: 06/02/19 22:12 Dose: Infused Documented by: Insulin Human Lispro (Humalog Kwikpen (Bkc)) 0 unit SC Q6 [facility]; Protocol Last Admin: 06/03/19 07:34 Dose: Not Given Documented by: Ipratropium [place] (Atrovent) 0.5 mg INHALATION Q4H.RT [facility] Last Admin: 06/03/19 03:05 Dose: Not Given Documented by: Lorazepam (Ativan) 0.25 mg IV Q6H PRN PRN PRN Reason: ANXIETY Last Admin: 05/31/19 17:28 Dose: 0.25 mg Documented by: Methylprednisolone (Solu-Medrol) 40 mg IV DAILY [facility] Last Admin: 06/02/19 10:42 Dose: 40 mg Documented by: Ondansetron HCl (Zofran) 4 mg IV Q8H PRN PRN PRN Reason: NAUSEA/VOMITING Senna/Docusate Sodium (Senokot-S, Angeli-Colace) 2 tablet PO BID [facility] Last Admin: 06/02/19 22:09 Dose: 2 tablet Documented by: Sertraline HCl (Zoloft) 50 mg PO DAILY [facility] Last Admin: 06/02/19 15:11 Dose: 50 mg Documented by: Sodium Chloride () 10 - 40 ml IV UD PRN PRN Reason: SALINE FLUSH Last Admin: 06/02/19 22:14 Dose: 20 ml Documented by: Sodium Chloride (0.9% Nacl (Sterile) Posiflush) 10 - 40 ml IV UD PRN PRN Reason: Port access or dressing change Sodium Chloride ([place] Nasal [place]) 2 spray NASAL Q4H PRN PRN Reason: NASAL DRYNESS STROKE Vital Signs/Narrative: Vital Signs Pulse 06/03/19 06:00 85 Medical Necessity - Tobacco Use Smoking Status: Former smoker Tobacco Use: Cigarettes, Cigars Assessment/Plan All Active Problems (Last Reviewed 05/28/19 @ 02:11 by Jacobo Unger MD) Severe sepsis (Acute) Sepsis (Acute) COPD exacerbation (Acute) Dyspnea (Acute) Acute exacerbation of chronic obstructive pulmonary disease (COPD) (Resolved) Acute on chronic diastolic (congestive) heart failure (Resolved) Acute respiratory failure with hypoxia and hypercapnia (Resolved) Bilateral pneumonia (Resolved) CAP (community acquired pneumonia) (Resolved) Dehydration (Resolved) Drug rash (Resolved) Hyperglycemia (Resolved) Hyponatremia (Resolved) Hypotension (Resolved) Pulmonary congestion (Resolved) Severe sepsis (Resolved) 1. Septic shock secondary to community-acquired pneumonia versus aspiration pneumonia/acute on chronic respiratory failure secondary to acute COPD exacerbation/chronic dysphagia -Initially started on meropenem and vancomycin, however the vancomycin has been discontinued with a negative MRSA PCR. -Respiratory culture is negative, stain did show 3+ gram-positive cocci in chains and clusters continue with the meropenem -He is tolerating BiPAP at night very well, he was on high flow nasal cannula yesterday and is currently on a normal nasal cannula at 4 L which is what he is on at home with an oxygen concentrator -Had silent aspiration with thin liquids -Sepsis has resolved -Continue with PT/OT to evaluate for disposition 2. History of non-small cell lung cancer/history of tobacco abuse/severe centrilobular bullous emphysema -We will continue with steroids for his COPD -The right lower lobe abnormality seen on x-ray is chronic and felt to be secondary to his radiation therapy for his non-small cell lung cancer -He does have an oxygen concentrator at home for up to 5 L of need 3. Severe pulmonary hypertension/chronic diastolic CHF/moderate to severe aortic valve stenosis/pacemaker for Mobitz type II AV block/HTN -He has a pacemaker in for his Mobitz type II -Continue with IV Lasix for his diastolic dysfunction -Blood pressure is stable we will continue to monitor, can restart Norvasc and losartan if necessary and if he passes swallow study 4. Anxiety/depression -Stable -He did receive a dose of Ativan which seemed to help -Continue with his Zoloft DVT: Lovenox Code Visit Inpatient E&M: 98614 Subs Hosp L2
[2019-06-03] MEDS: Sertraline 50 MG Tablet PO (09:41)
[2019-06-03] MEDS: Enoxaparin 40 MG/0.4 ML Syringe SC (09:44)
[2019-06-03] MEDS: Furosemide 40 MG/4 ML Vial IV (09:44)
[2019-06-03] MEDS: 0.9% Saline Lock 10 ML Syringe IV ×2 (09:45→23:16)
--- NOTE | 2019-06-03 10:00 | PN_ITS ---
Patient Problems: Active and Suspected Problems (Last Reviewed 05/28/19 @ 02:11 by Jacobo Unger MD) COPD exacerbation (Acute) Subjective: Patient transferred out of the intensive care unit yesterday. Patient was compliant with BiPAP overnight and is stable on baseline 4 L nasal cannula this morning. Patient reports subjective improvement in dyspnea, but admits that he has not been out of bed very often. Patient is taking a p.o. modified diet. Objective: Swallow study did show silent aspiration of thin liquids - Physical Exam Vitals/I&O's: Vital Signs Temp Pulse Resp BP Pulse Ox 36.9 C 84 16 140/77 H 97 06/03/19 02:00 06/03/19 07:25 06/03/19 07:25 06/03/19 02:00 06/03/19 07:25 Oxygen Flow Rate (L/min) 4 Oxygen Delivery Method Nasal Cannula Weight: 63.6 kg Body Mass Index (BMI) 24.3 Intake and Output for Last 24 Hours 06/01/19 06/02/19 06/03/19 23:59 23:59 23:59 Intake Total 404.20 / 404.20 769.40 / 769.40 240 / 240 Output Total 2950 / 2950 1700 / 1950 250 / 250 Balance -2545.80 / -2545.80 -930.60 / -1180.60 -10 / -10 General: Alert, Oriented x3, Cooperative, No apparent distress, - - No conversational dyspnea. HEENT: Atraumatic, PERRLA, EOMI, Normocephalic, - - No scleral icterus or injection Oral: Moist Mucosa, No Gingival or Mucosal Lesions/ Ulcerations Neck: Supple, No JVD, No Nodes, Trachea Midline Lungs: No rhonchi, No wheeze, No rales, Diminished Cardiovascular: Regular rate, Regular Rhythm, Normal S1, Normal S2, Murmur, No rub noted, No Gallop Abdomen: Bowel Sounds Present, Soft, Non Tender, Non-Distended Extremities: No cyanosis, No edema, Capillary Refill Less than 3 Seconds, Clubbing Skin: - - No significant change compared to previous Musculoskeletal: No Tenderness to Palpation of Joints or Extremities Lymphatic: No Cervical, Supraclavicular, or Inguinal Adenopathy Neurological: Cranial nerves II-XII grossly intact, Neuro grossly intact, Motor Exam 5/5 strength throughout Psych/Mental Status: Alert and oriented to time, place, person, mood and affect Microbiology Past 72 Hours 05/27/19 23:40 Blood Culture (Wb) - Anticubital Right Blood Culture - Final No growth in 5 days. 05/28/19 01:00 Blood Culture (Wb) - Anticubital Left Blood Culture - Final No growth in 5 days. Laboratory Results 06/02/19 13:08: POC Glucose 90 06/02/19 17:04: POC Glucose 121 H 06/03/19 00:06: POC Glucose 90 06/03/19 05:53: POC Glucose 96 Clinical Impression(s) from Imaging Studies Videofluoroscopic Swallow 06/02/19 14:05 IMPRESSION: Silent aspiration with ingestion of thin liquids. The swallow study findings were discussed with the patient by the speech pathologist at the conclusion of the examination. Please see speech pathology report for more information and recommendations. Electronically Signed: Caleb Hartman, at 15:50 EDT , Service support , Current Medications Acetaminophen (Tylenol) 650 mg PO Q6H PRN PRN PRN Reason: Pain Score 4-10/10 Last Admin: 06/02/19 22:10 Dose: 650 mg Documented by: Albuterol Sulfate (Ventolin Aerosols) 2.5 mg INHALATION Q2H PRN PRN PRN Reason: SHORTNESS OF BREATH Dextrose (D50w Syringe) 0 gm IV X1 PRN; Protocol PRN Reason: Hypoglycemia Enoxaparin Sodium (Lovenox) 40 mg SC DAILY@1000 WEI Last Admin: 06/03/19 09:44 Dose: 40 mg Documented by: Furosemide (Lasix) 40 mg IV DAILY WEI Last Admin: 06/03/19 09:44 Dose: 40 mg Documented by: Glucagon () 1 mg IM .X1 PRN PRN Reason: Hypoglycemia Sodium Chloride () 250 mls @ 15 mls/hr IV .[id number] PRN PRN Reason: Saline Flush Last Infusion: 06/03/19 08:20 Dose: 15 mls/hr Documented by: Meropenem 1 gm/ Sodium (Chloride) 120 mls @ 33 mls/hr IV Q8 WEI Last Infusion: 06/03/19 08:20 Dose: Infused Documented by: Sodium Chloride () 250 mls @ 15 mls/hr IV .[id number] PRN PRN Reason: Saline Flush Last Infusion: 06/01/19 22:00 Dose: Infused Documented by: Insulin Human Lispro (Humalog Kwikpen (Bkc)) 0 unit SC Q6 WEI; Protocol Last Admin: 06/03/19 07:34 Dose: Not Given Documented by: Ipratropium [place] (Atrovent) 0.5 mg INHALATION Q4H.RT [facility] Last Admin: 06/03/19 07:25 Dose: 0.5 mg Documented by: Lorazepam (Ativan) 0.25 mg IV Q6H PRN PRN PRN Reason: ANXIETY Last Admin: 05/31/19 17:28 Dose: 0.25 mg Documented by: Methylprednisolone (Solu-Medrol) 40 mg IV DAILY [facility] Last Admin: 06/03/19 09:44 Dose: 40 mg Documented by: Ondansetron HCl (Zofran) 4 mg IV Q8H PRN PRN PRN Reason: NAUSEA/VOMITING Senna/Docusate Sodium (Senokot-S, Angeli-Colace) 2 tablet PO BID [facility] Last Admin: 06/03/19 09:39 Dose: Not Given Documented by: Sertraline HCl (Zoloft) 50 mg PO DAILY [facility] Last Admin: 06/03/19 09:41 Dose: 50 mg Documented by: Sodium Chloride () 10 - 40 ml IV UD PRN PRN Reason: SALINE FLUSH Last Admin: 06/03/19 09:45 Dose: 20 ml Documented by: Sodium Chloride (0.9% Nacl (Sterile) Posiflush) 10 - 40 ml IV UD PRN PRN Reason: Port access or dressing change Sodium Chloride ([place] Nasal [place]) 2 spray NASAL Q4H PRN PRN Reason: NASAL DRYNESS Medical Necessity - Tobacco Use Smoking Status: Former smoker Tobacco Use: Cigarettes, Cigars Assessment/Plan All Active Problems (Last Reviewed 05/28/19 @ 02:11 by Jacobo Unger MD) Severe sepsis (Acute) Sepsis (Acute) COPD exacerbation (Acute) Dyspnea (Acute) Acute exacerbation of chronic obstructive pulmonary disease (COPD) (Resolved) Acute on chronic diastolic (congestive) heart failure (Resolved) Acute respiratory failure with hypoxia and hypercapnia (Resolved) Bilateral pneumonia (Resolved) CAP (community acquired pneumonia) (Resolved) Dehydration (Resolved) Drug rash (Resolved) Hyperglycemia (Resolved) Hyponatremia (Resolved) Hypotension (Resolved) Pulmonary congestion (Resolved) Severe sepsis (Resolved) RECOMMENDATIONS: 1. Patient can be evaluated for BiPAP on discharge 2. Continue supplemental oxygen and wean to maintain saturations at or above 90%. 3. Wean steroids over the next 10 to 12 days 4. Okay to discharge from pulmonary perspective following walking oximetry 5. Encourage incentive spirometer use and mobilize patient as tolerated. 6. Continue bronchodilators as ordered. 7. Follow-up with nurse practitioner in 2 weeks in our office and then establish with Dr. Mccartney IMPRESSIONS: 1. Acute on chronic combined respiratory failure Patient appears to be doing well from a respiratory standpoint. Patient tolerating regular nasal cannula oxygen. Barium swallow did show some silent aspiration and patient has been placed on modified diet. Patient likely okay to discontinue empiric antibiotics. Steroids can be weaned over the next 12 to 14 days. Patient does have advanced COPD per history and requires 4 L nasal cannula at baseline. Patient may benefit from palliative evaluation. Patient should have a walking oximetry prior to discharge. Patient can follow-up with nurse practitioner in 2 weeks. Patient would like to establish with Dr. Mccartney and transfer care from the [facility]. 2. Septic shock secondary to community-acquired versus aspiration pneumonia Continue current supportive measures as noted above with broad-spectrum antimicrobial coverage. Vasopressor support has been weaned at this time. Patient has completed an appropriate amount of antibiotics from my perspective. 3. 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 There has been no evidence of cancer recurrence according to the patient's pulmonary provider at [facility]. 4. Congestive heart failure/Mobitz type II heart block status post pacemaker placement Okay to continue medical optimization of congestive heart failure. Can be transition to p.o. at the current dosing. 5. Pulmonary hypertension/hypertension/hyperlipidemia/advanced age/CODE STATUS Complicates care, management, recovery and prognosis. Physical therapy to work with patient as tolerated. Goals of care/CODE STATUS was discussed with the patient prior to intubation and he wished to remain full code. Code Visit Inpatient E&M: 14392 Subs Hosp L2
[2019-06-03] MEDS: Acetaminophen 325 MG Tablet 650 MG PO (10:59)
--- NOTE | 2019-06-03 11:35 | CASEMGMT ---
Addendum entered by Shoshana Barrios 06/03/19 14:42: This RN CM to room to f/u with pt regarding discharge plan and pt is still undecided about SNF vs Home and is not here at this time. This RN CM did thoroughly discuss HHC, SNF, and CCN with pt at this time. Pt feels like he would like to go home but he does not want to come back to [facility] for worsening of condition once home. [facility] pt, [facility] does not like people coming into their home like that. Disposition has not been placed for pt yet at this time. Pt states that his will be back later. This RN CM to f/u later today or tomorrow am. Soheila NEELY CM Original Note: This RN CM to room to discuss discharge plan with pt/ at this time. Pt states that he gets very SOB with activity but is undecided on discharge plan at this time. Pt/ provided list of local SNF's at this time and this RN CM advised that will check back later in regards to decision. Pt initially states I will let you know tomorrow' but according to Dr. Hong verbally and Dr. Powers's note, pt is back to baseline oxygen requirement and ready for discharge at this time. Pt/ updated at this time, voice understanding. Soheila NEELY CM
[2019-06-03 11:50] LABS: Bedside Glucose 146 mg/dL (70-110)
[2019-06-03] MEDS: Senna/Docusate Sodium 1 Tablet 2 TABLET PO (21:10)
[2019-06-03 23:56] LABS: Bedside Glucose 95 mg/dL (70-110)
[2019-06-04] VITALS (16 sets, daily range): BP systolic 101–157; BP diastolic 51–78; PULSE 66–93; RESP 16–20; TEMP 36.4–37.3; O2SAT 94–99
[2019-06-04 00:40] LABS: Bedside Glucose 230 mg/dL (70-110)
[2019-06-04 05:05] LABS: Absolute Lymphocyte Count 1.37 X10^3/uL (0.83-4.51); Absolute Neutrophil Count 5.3 X10^3/uL (2.0-7.7); Basophil# 0.01 X10^3/uL; Basophil% 0.1 % (0-1); Eosinophil# 0.27 X10^3/uL; Eosinophils% 3.5 % (0-5); Hematocrit 34.8 % (40-54); Hemoglobin 10.9 g/dL (13.0-16.5); Lymphocyte # 1.37 X10^3/ul (4.0); Lymphocyte % 17.7 % (19-41); Mean Corp Hgb Conc 31.3 g/dL (32-36); Mean Corpuscular Hgb 30.7 pg (27.0-32.0); Mean Platelet Vol. 8.9 fl (6.2-12.0); Monocyte# 0.77 X10^3/uL; Monocyte% 9.9 % (0-10); NRBC Flagged by Analyzer 0 % (0-5); Neutrophil # 5.28 X10^3/uL (2.7-7.7); Neutrophil % 68.3 % (47-70); Platelet Count 160 K/mm3 (150-450); RBC Distribution Width CV 11.7 % (11.6-14.6); RBC Distribution Width SD 42.1 fl (35.1-43.9); Red Blood Count 3.55 M/mm3 (4.6-6.2); White Blood Count 7.7 K/mm3 (4.4-11.0)
[2019-06-04 05:18] LABS: Anion Gap 5 (5-15); BUN 33 mg/dL (7-18); BUN/Creat Ratio 65.1 RATIO (10-20); Calcium,Total 8.4 mg/dL (8.5-10.1); Chloride 99 mmol/L (98-107); Creatinine, Serum 0.51 mg/dL (0.70-1.30); EST Glomerular Filtration Rate 166 mL/min (>60); Est Glom Filt Rate - Afr Amer 201 mL/min (>60); Estimated Creatinine Clearance 51.23 ml/min; Glucose 116 mg/dL (74-106); Potassium 3.3 mmol/L (3.5-5.1); Sodium Level 142 mmol/L (136-145)
[2019-06-04 06:51] LABS: Bedside Glucose 107 mg/dL (70-110)
[2019-06-04] MEDS: Ipratropium 0.5 MG/2.5 ML SOLUTION INHALATION ×5 (07:19→23:04)
[2019-06-04] MEDS: predniSONE 20 MG Tablet 40 MG PO (09:34)
[2019-06-04] MEDS: Furosemide 40 MG/4 ML Vial IV (09:36)
[2019-06-04] MEDS: Enoxaparin 40 MG/0.4 ML Syringe SC (09:37)
[2019-06-04] MEDS: Sertraline 50 MG Tablet PO (09:38)
--- NOTE | 2019-06-04 10:00 | CASEMGMT ---
SW spoke with patient and his and they agreed to [facility] since TCU is full. SW explained how the process works and Medicare coverage for SNF. SW told them SW will let them know when SW hears back from [facility]. DOROTEO called Katelynn at [facility] and left message with referral as well as faxed over information. Kathrine RAMIREZ MSW
--- NOTE | 2019-06-04 11:05 | PN_ITS ---
Patient Problems: Active and Suspected Problems (Last Reviewed 05/28/19 @ 02:11 by Jacobo Unger MD) COPD exacerbation (Acute) Subjective: Patient continues to report subjective improvement in overall condition as it relates to his breathing. Patient states his cough is pretty much nonexistent. Patient is still requiring supplemental oxygen to maintain saturations. Patient believes his exercise tolerance is improving. Patient is tolerating his modified diet, but states toleration is the correct word. - Physical Exam Vitals/I&O's: Vital Signs Temp Pulse Resp BP Pulse Ox 36.7 C 80 17 101/51 L 97 06/04/19 10:07 06/04/19 10:07 06/04/19 10:07 06/04/19 10:07 06/04/19 10:07 Oxygen Flow Rate (L/min) 3 Oxygen Delivery Method Nasal Cannula Weight: 63.3 kg Body Mass Index (BMI) 24.3 Intake and Output for Last 24 Hours 06/02/19 06/03/19 06/04/19 23:59 23:59 23:59 Intake Total 769.40 / 769.40 1166.25 / 1166.25 363.25 / 363.25 Output Total 1700 / 1950 600 / 600 Balance -930.60 / -1180.60 566.25 / 566.25 363.25 / 363.25 General: Alert, Oriented x3, Cooperative, No apparent distress, - - Appears stated age. Speaking in full sentences. HEENT: Atraumatic, PERRLA, EOMI, Normocephalic, - - No scleral icterus or injection noted Oral: No Gingival or Mucosal Lesions/ Ulcerations, Dry Mucosa Neck: Supple, No JVD, No Nodes, Trachea Midline Lungs: No rhonchi, No wheeze, No rales, Diminished Cardiovascular: Regular rate, Regular Rhythm, Normal S1, Normal S2, Murmur, No rub noted, No Gallop Abdomen: Bowel Sounds Present, Soft, Non Tender, Non-Distended Extremities: No clubbing, No cyanosis, No edema Skin: No rashes, No breakdown Musculoskeletal: No Tenderness to Palpation of Joints or Extremities Lymphatic: No Cervical, Supraclavicular, or Inguinal Adenopathy Neurological: Cranial nerves II-XII grossly intact, Neuro grossly intact Psych/Mental Status: Alert and oriented to time, place, person, mood and affect Microbiology Past 72 Hours 05/27/19 23:40 Blood Culture (Wb) - Anticubital Right Blood Culture - Final No growth in 5 days. 05/28/19 01:00 Blood Culture (Wb) - Anticubital Left Blood Culture - Final No growth in 5 days. Laboratory Results 06/03/19 11:42: POC Glucose 146 H 06/03/19 18:35: POC Glucose 230 H 06/03/19 23:50: POC Glucose 95 06/04/19 05:00: WBC 7.7, RBC 3.55 L, Hgb 10.9 L, Hct 34.8 L, MCV 98.0 H, MCH 30.7, MCHC 31.3 L, RDW Std Deviation 42.1, RDW Coeff of [place] 11.7, Plt Count 160, MPV 8.9, Immature Gran % (Auto) 0.500, Neut % (Auto) 68.3, Lymph % (Auto) 17.7 L , [place] % (Auto) 9.9, Eos % (Auto) 3.5, Baso % (Auto) 0.1, Absolute Neuts (auto) 5.3, Absolute Lymphs (auto) 1.37, Nucleated RBC % 0 06/04/19 05:00: Sodium 142, Potassium 3.3 L, Chloride 99, Carbon Dioxide 38.0 H, Anion Gap 5, BUN 33 H, Creatinine 0.51 L, Estim Creat Clear Calc 51.23, Est GFR (MDRD) Af Amer 201, Est GFR (MDRD) Non-Af 166, BUN/Creatinine Ratio 65.1 H, Glucose 116 H, Calcium 8.4 L 06/04/19 06:26: POC Glucose 107 Current Medications Acetaminophen (Tylenol) 650 mg PO Q6H PRN PRN PRN Reason: Pain Score 4-10/10 Last Admin: 06/03/19 10:59 Dose: 650 mg Documented by: Albuterol Sulfate (Ventolin Aerosols) 2.5 mg INHALATION Q2H PRN PRN PRN Reason: SHORTNESS OF BREATH Dextrose (D50w Syringe) 0 gm IV X1 PRN; Protocol PRN Reason: Hypoglycemia Enoxaparin Sodium (Lovenox) 40 mg SC DAILY@1000 WEI Last Admin: 06/04/19 09:37 Dose: 40 mg Documented by: Furosemide (Lasix) 40 mg IV DAILY [facility] Last Admin: 06/04/19 09:36 Dose: 40 mg Documented by: Glucagon () 1 mg IM .X1 PRN PRN Reason: Hypoglycemia Sodium Chloride () 250 mls @ 15 mls/hr IV .[id number] PRN PRN Reason: Saline Flush Last Infusion: 06/04/19 03:35 Dose: 0 mls/hr Documented by: Meropenem 1 gm/ Sodium (Chloride) 120 mls @ 33 mls/hr IV Q8 [facility] Last Infusion: 06/04/19 10:43 Dose: Infused Documented by: Sodium Chloride () 250 mls @ 15 mls/hr IV .[id number] PRN PRN Reason: Saline Flush Last Infusion: 06/01/19 22:00 Dose: Infused Documented by: Insulin Human Lispro (Humalog Kwikpen (Bkc)) 0 unit SC Q6 [facility]; Protocol Last Admin: 06/04/19 06:32 Dose: Not Given Documented by: Ipratropium [place] (Atrovent) 0.5 mg INHALATION Q4H.RT [facility] Last Admin: 06/04/19 10:55 Dose: 0.5 mg Documented by: Lorazepam (Ativan) 0.25 mg IV Q6H PRN PRN PRN Reason: ANXIETY Last Admin: 05/31/19 17:28 Dose: 0.25 mg Documented by: Ondansetron HCl (Zofran) 4 mg IV Q8H PRN PRN PRN Reason: NAUSEA/VOMITING Potassium Chloride (K-Dur) 20 meq PO BIDCM [facility] Stop: 06/04/19 17:01 Last Admin: 06/04/19 08:30 Dose: 20 meq Documented by: Prednisone () 40 mg PO DAILY@0800 [facility] Last Admin: 06/04/19 09:34 Dose: 40 mg Documented by: Senna/Docusate Sodium (Senokot-S, Angeli-Colace) 2 tablet PO BID [facility] Last Admin: 06/04/19 09:38 Dose: Not Given Documented by: Sertraline HCl (Zoloft) 50 mg PO DAILY [facility] Last Admin: 06/04/19 09:38 Dose: 50 mg Documented by: Sodium Chloride () 10 - 40 ml IV UD PRN PRN Reason: SALINE FLUSH Last Admin: 06/03/19 23:16 Dose: 10 ml Documented by: Sodium Chloride (0.9% Nacl (Sterile) Posiflush) 10 - 40 ml IV UD PRN PRN Reason: Port access or dressing change Sodium Chloride ([place] Nasal [place]) 2 spray NASAL Q4H PRN PRN Reason: NASAL DRYNESS Medical Necessity - Tobacco Use Smoking Status: Former smoker Tobacco Use: Cigarettes, Cigars Assessment/Plan All Active Problems (Last Reviewed 05/28/19 @ 02:11 by Jacobo Unger MD) Severe sepsis (Acute) Sepsis (Acute) COPD exacerbation (Acute) Dyspnea (Acute) Acute exacerbation of chronic obstructive pulmonary disease (COPD) (Resolved) Acute on chronic diastolic (congestive) heart failure (Resolved) Acute respiratory failure with hypoxia and hypercapnia (Resolved) Bilateral pneumonia (Resolved) CAP (community acquired pneumonia) (Resolved) Dehydration (Resolved) Drug rash (Resolved) Hyperglycemia (Resolved) Hyponatremia (Resolved) Hypotension (Resolved) Pulmonary congestion (Resolved) Severe sepsis (Resolved) RECOMMENDATIONS: 1. Patient can be evaluated for potential BiPAP and outpatient 2. Continue supplemental oxygen and wean to maintain saturations at or above 90%. 3. Wean steroids over the next 10 to 12 days 4. Okay to discharge from pulmonary perspective following walking oximetry 5. Encourage incentive spirometer use and mobilize patient as tolerated. 6. Continue bronchodilators as ordered. 7. Follow-up with nurse practitioner in 2 weeks in our office and then establish with Dr. Mccartney IMPRESSIONS: 1. Acute on chronic combined respiratory failure Patient appears to be doing well from a respiratory standpoint. Patient tolerating regular nasal cannula oxygen. Barium swallow did show some silent aspiration and patient has been placed on modified diet. Okay to discontinue antibiotics from my perspective steroids can be weaned over the next 12 to 14 days. Patient does have advanced COPD history of radiation secondary to cancer per history and requires 4 L nasal cannula at baseline. Patient may benefit from palliative evaluation. Patient should have a walking oximetry prior to discharge. Patient can follow-up with nurse practitioner in 2 weeks. Patient would like to establish with Dr. Mccartney and transfer care from the [facility]. 2. Septic shock secondary to community-acquired versus aspiration pneumonia Continue current supportive measures as noted above with broad-spectrum a ntimicrobial coverage. Vasopressor support has been weaned for some time. Patient has completed an appropriate amount of antibiotics from my perspective. 3. 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 There has been no evidence of cancer recurrence according to the patient's pulmonary provider at [facility]. 4. Congestive heart failure/Mobitz type II heart block status post pacemaker placement Okay to continue medical optimization of congestive heart failure. Can be transition to p.o. at the current dosing. 5. Pulmonary hypertension/hypertension/hyperlipidemia/advanced age/CODE STATUS Complicates care, management, recovery and prognosis. Physical therapy to work with patient as tolerated. Goals of care/CODE STATUS was discussed with the patient prior to intubation and he wished to remain full code. Code Visit Inpatient E&M: 88447 Subs Hosp L2
[2019-06-04 11:50] LABS: Bedside Glucose 112 mg/dL (70-110)
--- NOTE | 2019-06-04 14:06 | PCM.PN.HOSP ---
Patient Problems: Active and Suspected Problems (Last Reviewed 05/28/19 @ 02:11 by Jacobo Unger MD) COPD exacerbation (Acute) Subjective: States that he is back to baseline though he does feel little bit weak and would benefit from fdc facility. Vitals/I&O's: Vital Signs Temp Pulse Resp BP Pulse Ox 99.1 F 87 16 105/53 L 99 06/04/19 13:51 06/04/19 13:51 06/04/19 13:51 06/04/19 13:51 06/04/19 13:51 Oxygen Flow Rate (L/min) 3 Oxygen Delivery Method Nasal Cannula Weight: 139 lb 8.842 oz Body Mass Index (BMI) 24.3 Intake and Output for Last 24 Hours 06/02/19 06/03/19 06/04/19 23:59 23:59 23:59 Intake Total 769.40 / 769.40 1166.25 / 1166.25 363.25 / 363.25 Output Total 1700 / 1950 600 / 600 Balance -930.60 / -1180.60 566.25 / 566.25 363.25 / 363.25 General: Alert, Oriented x3, Cooperative, No apparent distress HEENT: Atraumatic, PERRLA, EOMI, Normocephalic Oral: Moist Mucosa Neck: Supple, No JVD Lungs: Clear to auscultation, poor air movement, No rhonchi, No wheeze, No rales, Diminished Cardiovascular: Regular rate, Regular Rhythm, Normal S1, Normal S2, Murmur - 2 out of 6 CLYDE at RUSB Abdomen: Soft, Non Tender, Non-Distended, No Hepato-splenomegaly Extremities: No edema, Capillary Refill Less than 3 Seconds Skin: No rashes, No breakdown Neurological: Neuro grossly intact, Sensory exam intact to light touch and pain Psych/Mental Status: Normal Affect, Appropriate Microbiology Past 72 Hours 05/27/19 23:40 Blood Culture (Wb) - Anticubital Right Blood Culture - Final No growth in 5 days. 05/28/19 01:00 Blood Culture (Wb) - Anticubital Left Blood Culture - Final No growth in 5 days. Laboratory Results 06/03/19 18:35: POC Glucose 230 H 06/03/19 23:50: POC Glucose 95 06/04/19 05:00: WBC 7.7, RBC 3.55 L, Hgb 10.9 L, Hct 34.8 L, MCV 98.0 H, MCH 30.7, MCHC 31.3 L, RDW Std Deviation 42.1, RDW Coeff of Earline 11.7, Plt Count 160, MPV 8.9, Immature Gran % (Auto) 0.500, Neut % (Auto) 68.3, Lymph % (Auto) 17.7 L, Centre % (Auto) 9.9, Eos % (Auto) 3.5, Baso % (Auto) 0.1, Absolute Neuts (auto) 5.3, Absolute Lymphs (auto) 1.37, Nucleated RBC % 0 06/04/19 05:00: Sodium 142, Potassium 3.3 L, Chloride 99, Carbon Dioxide 38.0 H, Anion Gap 5, BUN 33 H, Creatinine 0.51 L, Estim Creat Clear Calc 51.23, Est GFR (MDRD) Af Amer 201, Est GFR (MDRD) Non-Af 166, BUN/Creatinine Ratio 65.1 H, Glucose 116 H, Calcium 8.4 L 06/04/19 06:26: POC Glucose 107 06/04/19 11:30: POC Glucose 112 H Current Medications Acetaminophen (Tylenol) 650 mg PO Q6H PRN PRN PRN Reason: Pain Score 4-10/10 Last Admin: 06/03/19 10:59 Dose: 650 mg Documented by: Albuterol Sulfate (Ventolin Aerosols) 2.5 mg INHALATION Q2H PRN PRN PRN Reason: SHORTNESS OF BREATH Dextrose (D50w Syringe) 0 gm IV X1 PRN; Protocol PRN Reason: Hypoglycemia Enoxaparin Sodium (Lovenox) 40 mg SC DAILY@1000 WEI Last Admin: 06/04/19 09:37 Dose: 40 mg Documented by: Furosemide (Lasix) 40 mg IV DAILY REPLACED BY [facility] Last Admin: 06/04/19 09:36 Dose: 40 mg Documented by: Glucagon () 1 mg IM .X1 PRN PRN Reason: Hypoglycemia Sodium Chloride () 250 mls @ 15 mls/hr IV .[id number] PRN PRN Reason: Saline Flush Last Infusion: 06/04/19 03:35 Dose: 0 mls/hr Documented by: Meropenem 1 gm/ Sodium (Chloride) 120 mls @ 33 mls/hr IV Q8 REPLACED BY [facility] Last Admin: 06/04/19 13:36 Dose: 33 mls/hr Documented by: Sodium Chloride () 250 mls @ 15 mls/hr IV .[id number] PRN PRN Reason: Saline Flush Last Infusion: 06/01/19 22:00 Dose: Infused Documented by: Insulin Human Lispro (Humalog Kwikpen (Bkc)) 0 unit SC Q6 REPLACED BY [facility]; Protocol Last Admin: 06/04/19 11:55 Dose: Not Given Documented by: Ipratropium [place] (Atrovent) 0.5 mg INHALATION Q4H.RT REPLACED BY [facility] Last Admin: 06/04/19 10:55 Dose: 0.5 mg Documented by: Lorazepam (Ativan) 0.25 mg IV Q6H PRN PRN PRN Reason: ANXIETY Last Admin: 05/31/19 17:28 Dose: 0.25 mg Documented by: Ondansetron HCl (Zofran) 4 mg IV Q8H PRN PRN PRN Reason: NAUSEA/VOMITING Potassium Chloride (K-Dur) [facility] Stop: 06/04/19 17:01 Last Admin: 06/04/19 08:30 Dose: 20 meq Documented by: Prednisone () 40 mg PO DAILY@0800 REPLACED BY [facility] Last Admin: 06/04/19 09:34 Dose: 40 mg Documented by: Senna/Docusate Sodium (Senokot-S, Angeli-Colace) 2 tablet PO BID REPLACED BY [facility] Last Admin: 06/04/19 09:38 Dose: Not Given Documented by: Sertraline HCl (Zoloft) 50 mg PO DAILY REPLACED BY [facility] Last Admin: 06/04/19 09:38 Dose: 50 mg Documented by: Sodium Chloride () 10 - 40 ml IV UD PRN PRN Reason: SALINE FLUSH Last Admin: 06/03/19 23:16 Dose: 10 ml Documented by: Sodium Chloride (0.9% Nacl (Sterile) Posiflush) 10 - 40 ml IV UD PRN PRN Reason: Port access or dressing change Sodium Chloride ([place] Nasal [place]) 2 spray NASAL Q4H PRN PRN Reason: NASAL DRYNESS STROKE Vital Signs/Narrative: Vital Signs Temp Pulse Resp BP Pulse Ox 06/04/19 13:51 99.1 F 87 16 105/53 L 99 06/04/19 12:33 17 06/04/19 10:55 75 20 H 06/04/19 10:07 98.1 F 80 17 101/51 L 97 Medical Necessity - Tobacco Use Smoking Status: Former smoker Tobacco Use: Cigarettes, Cigars Assessment/Plan All Active Problems (Last Reviewed 05/28/19 @ 02:11 by Jacobo Unger MD) Severe sepsis (Acute) Sepsis (Acute) COPD exacerbation (Acute) Dyspnea (Acute) Acute exacerbation of chronic obstructive pulmonary disease (COPD) (Resolved) Acute on chronic diastolic (congestive) heart failure (Resolved) Acute respiratory failure with hypoxia and hypercapnia (Resolved) Bilateral pneumonia (Resolved) CAP (community acquired pneumonia) (Resolved) Dehydration (Resolved) Drug rash (Resolved) Hyperglycemia (Resolved) Hyponatremia (Resolved) Hypotension (Resolved) Pulmonary congestion (Resolved) Severe sepsis (Resolved) 1. Septic shock secondary to community-acquired pneumonia versus aspiration pneumonia/acute on chronic respiratory failure secondary to acute COPD exacerbation/chronic dysphagia -He completed his ABX today -He is tolerating BiPAP at night very well, he was on high flow nasal cannula yesterday and is currently on a normal nasal cannula at 4 L which is what he is on at home with an oxygen concentrator -Had silent aspiration with thin liquids -Sepsis has resolved -Continue with PT/OT to evaluate for disposition 2. History of non-small cell lung cancer/history of tobacco abuse/severe centrilobular bullous emphysema -We will continue with steroids for his COPD and taper on DC -The right lower lobe abnormality seen on x-ray is chronic and felt to be secondary to his radiation therapy for his non-small cell lung cancer -He does have an oxygen concentrator at home for up to 5 L of need 3. Severe pulmonary hypertension/chronic diastolic CHF/moderate to severe aortic valve stenosis/pacemaker for Mobitz type II AV block/HTN -He has a pacemaker in for his Mobitz type II -Continue with IV Lasix for his diastolic dysfunction -Blood pressure is stable we will continue to monitor, can restart Norvasc and losartan if necessary and if he passes swallow study 4. Anxiety/depression -Stable -He did receive a dose of Ativan which seemed to help -Continue with his Zoloft Dispo: To SNF in the am DVT: Lovenox Code Visit Inpatient E&M: 38741 Subs Hosp L2
--- NOTE | 2019-06-04 15:10 | CASEMGMT ---
[facility] heard back from [facility] and they can take patient. DOROTEO let patient and his know this information. Plan: [place] under skilled level of care. Kathrine RAMIREZ MSW
[2019-06-04 16:41] LABS: Bedside Glucose 136 mg/dL (70-110)
[2019-06-04] MEDS: Acetaminophen 325 MG Tablet 650 MG PO (22:09)
[2019-06-04] MEDS: Senna/Docusate Sodium 1 Tablet 2 TABLET PO (22:09)
--- NOTE | 2019-06-04 23:05 | CPS ---
pt declines use of bipap this evening
[2019-06-04 23:16] LABS: Bedside Glucose 108 mg/dL (70-110)
[2019-06-05] VITALS (9 sets, daily range): BP systolic 99–110; BP diastolic 50–57; PULSE 79–89; RESP 16–19; TEMP 36.8–37; O2SAT 88–98
[2019-06-05] MEDS: Acetaminophen 325 MG Tablet 650 MG PO ×2 (04:10→12:20)
[2019-06-05 05:33] LABS: Anion Gap 4 (5-15); BUN 33 mg/dL (7-18); BUN/Creat Ratio 58.1 RATIO (10-20); Calcium,Total 8.5 mg/dL (8.5-10.1); Chloride 100 mmol/L (98-107); Creatinine, Serum 0.57 mg/dL (0.70-1.30); EST Glomerular Filtration Rate 146 mL/min (>60); Est Glom Filt Rate - Afr Amer 176 mL/min (>60); Estimated Creatinine Clearance 50.99 ml/min; Glucose 157 mg/dL (74-106); Potassium 3.8 mmol/L (3.5-5.1); Sodium Level 143 mmol/L (136-145)
[2019-06-05 06:51] LABS: Bedside Glucose 136 mg/dL (70-110)
[2019-06-05] MEDS: Ipratropium 0.5 MG/2.5 ML SOLUTION INHALATION ×2 (07:47→11:12)
--- NOTE | 2019-06-05 08:02 | PCM.TXEXTCAR ---
- Diet 06/02/19 14:41 Diet: Regular Diet Food consistency:: Puree Liquid Consistency:: [place] Thick Is pt able to select menu?: Yes Diet Comments: MUST REMIAN @ 90 DEGREES DURING and 1 HOUR POST INTAKE. - Routine Orders/Code Status Code Status: Full Code - Therapies Physical Therapy: Eval and Treat Occupational Therapy: Eval and Treat - Allergies/Procedures Done in Hospital Allergies/Adverse Reactions: Allergies ampicillin Allergy (Verified 05/27/19 23:41) Anaphylaxis codeine Allergy (Verified 05/27/19 23:41) Rash penicillin G Allergy (Verified 05/27/19 23:41) Rash Sulfa (Sulfonamide Antibiotics) Allergy (Verified 05/27/19 23:41) Rash - Type of Care/Length of Stay Estimated LOS: Convalescent Care Less Than 30 days Type of Care Needed: Skilled Rehab Potential: Good Prognosis: Good - Additional Orders/Day of Discharge Day of Discharge: 06/05/19 - Dietary and Speech Recommendations Dietitian Recommendations/Changes: When appropriate for PO diet, rec cardiac diet- consistency per [employer]. Provide po supplements as indicated. If unable to advance PO diet, may need to consider enteral nutrition support. - Follow Up Care Primary Care Physician: Misael Valencia MD [Primary Care Provider] - Please follow up with your Primary Care Physician in: 3-5 days
--- NOTE | 2019-06-05 08:24 | PN_ITS ---
Patient Problems: Active and Suspected Problems (Last Reviewed 05/28/19 @ 02:11 by Jacobo Unger MD) COPD exacerbation (Acute) Subjective: Patient did well overnight. Patient continues to report subjective improvement on a daily basis. Patient is at his baseline 4 L nasal cannula oxygen. Blood pressures have been a little bit lower, but patient denies any orthostatic type symptoms. - Physical Exam Vitals/I&O's: Vital Signs Temp Pulse Resp BP Pulse Ox 37.0 C 89 16 103/50 L 94 06/05/19 08:09 06/05/19 08:09 06/05/19 08:09 06/05/19 08:09 06/05/19 08:09 Oxygen Flow Rate (L/min) 4 Oxygen Delivery Method Nasal Cannula Weight: 63.2 kg Body Mass Index (BMI) 24.3 Intake and Output for Last 24 Hours 06/03/19 06/04/19 06/05/19 23:59 23:59 23:59 Intake Total 1166.25 / 1166.25 903.25 / 903.25 480 / 480 Output Total 600 / 600 800 / 800 Balance 566.25 / 566.25 903.25 / 903.25 -320 / -320 General: Alert, Oriented x3, Cooperative, No apparent distress, Well developed, Well nourished, - - No conversational dyspnea noted. HEENT: Atraumatic, PERRLA, EOMI, Normocephalic, - - No scleral icterus or injection noted Oral: Moist Mucosa, No Gingival or Mucosal Lesions/ Ulcerations Neck: Supple, No JVD, No Nodes, Trachea Midline Lungs: No rhonchi, No wheeze, No rales, Diminished Cardiovascular: Regular rate, Regular Rhythm, Normal S1, Normal S2, No murmurs, No rub noted, No Gallop Abdomen: Bowel Sounds Present, Soft, Non Tender, Non-Distended Extremities: No clubbing, No cyanosis, No edema, Capillary Refill Less than 3 Seconds Skin: No rashes, No breakdown Musculoskeletal: No Tenderness to Palpation of Joints or Extremities Lymphatic: No Cervical, Supraclavicular, or Inguinal Adenopathy Neurological: Cranial nerves II-XII grossly intact, Motor Exam 5/5 strength throughout, Sensory exam intact to light touch and pain Psych/Mental Status: Alert and oriented to time, place, person, mood and affect Microbiology Past 72 Hours 05/27/19 23:40 Blood Culture (Wb) - Anticubital Right Blood Culture - Final No growth in 5 days. 05/28/19 01:00 Blood Culture (Wb) - Anticubital Left Blood Culture - Final No growth in 5 days. Laboratory Results 06/04/19 11:30: POC Glucose 112 H 06/04/19 16:29: POC Glucose 136 H 06/04/19 23:09: POC Glucose 108 06/05/19 05:00: Sodium 143, Potassium 3.8, Chloride 100, Carbon Dioxide 39.0 H, Anion Gap 4 L, BUN 33 H, Creatinine 0.57 L, Estim Creat Clear Calc 50.99, Est GFR (MDRD) Af Amer 176, Est GFR (MDRD) Non-Af 146, BUN/Creatinine Ratio 58.1 H, Glucose 157 H, Calcium 8.5 06/05/19 06:20: POC Glucose 136 H Current Medications Acetaminophen (Tylenol) 650 mg PO Q6H PRN PRN PRN Reason: Pain Score 4-10/10 Last Admin: 06/05/19 04:10 Dose: 650 mg Documented by: Albuterol Sulfate (Ventolin Aerosols) 2.5 mg INHALATION Q2H PRN PRN PRN Reason: SHORTNESS OF BREATH Dextrose (D50w Syringe) 0 gm IV X1 PRN; Protocol PRN Reason: Hypoglycemia Enoxaparin Sodium (Lovenox) 40 mg SC DAILY@1000 WEI Last Admin: 06/04/19 09:37 Dose: 40 mg Documented by: Furosemide (Lasix) 40 mg IV DAILY WEI Last Admin: 06/04/19 09:36 Dose: 40 mg Documented by: Glucagon () 1 mg IM .X1 PRN PRN Reason: Hypoglycemia Sodium Chloride () 250 mls @ 15 mls/hr IV .[id number] PRN PRN Reason: Saline Flush Last Infusion: 06/04/19 03:35 Dose: 0 mls/hr Documented by: Sodium Chloride () 250 mls @ 15 mls/hr IV .[id number] PRN PRN Reason: Saline Flush Last Infusion: 06/01/19 22:00 Dose: Infused Documented by: Insulin Human Lispro (Humalog [place] (Bkc)) 0 unit SC Q6 [facility]; Protocol Last Admin: 06/05/19 06:24 Dose: Not Given Documented by: Ipratropium [place] (Atrovent) 0.5 mg INHALATION Q4H.RT [facility] Last Admin: 06/05/19 07:47 Dose: 0.5 mg Documented by: Lorazepam (Ativan) 0.25 mg IV Q6H PRN PRN PRN Reason: ANXIETY Last Admin: 05/31/19 17:28 Dose: 0.25 mg Documented by: Ondansetron HCl (Zofran) 4 mg IV Q8H PRN PRN PRN Reason: NAUSEA/VOMITING Prednisone () 40 mg PO DAILY@0800 [facility] Last Admin: 06/04/19 09:34 Dose: 40 mg Documented by: Senna/Docusate Sodium (Senokot-S, Angeli-Colace) 2 tablet PO BID [facility] Last Admin: 06/04/19 22:09 Dose: 2 tablet Documented by: Sertraline HCl (Zoloft) 50 mg PO DAILY [facility] Last Admin: 06/04/19 09:38 Dose: 50 mg Documented by: Sodium Chloride () 10 - 40 ml IV UD PRN PRN Reason: SALINE FLUSH Last Admin: 06/03/19 23:16 Dose: 10 ml Documented by: Sodium Chloride (0.9% Nacl (Sterile) Posiflush) 10 - 40 ml IV UD PRN PRN Reason: Port access or dressing change Sodium Chloride ([place] Nasal [place]) 2 spray NASAL Q4H PRN PRN Reason: NASAL DRYNESS Medical Necessity - Tobacco Use Smoking Status: Former smoker Tobacco Use: Cigarettes, Cigars Assessment/Plan All Active Problems (Last Reviewed 05/28/19 @ 02:11 by Jacobo Unger MD) Severe sepsis (Acute) Sepsis (Acute) COPD exacerbation (Acute) Dyspnea (Acute) Acute exacerbation of chronic obstructive pulmonary disease (COPD) (Resolved) Acute on chronic diastolic (congestive) heart failure (Resolved) Acute respiratory failure with hypoxia and hypercapnia (Resolved) Bilateral pneumonia (Resolved) CAP (community acquired pneumonia) (Resolved) Dehydration (Resolved) Drug rash (Resolved) Hyperglycemia (Resolved) Hyponatremia (Resolved) Hypotension (Resolved) Pulmonary congestion (Resolved) Severe sepsis (Resolved) RECOMMENDATIONS: 1. Patient can be evaluated for potential BiPAP as an outpatient 2. Continue supplemental oxygen and wean to maintain saturations at or above 90%. 3. Wean steroids over the next 10 to 12 days 4. Okay to discharge from pulmonary perspective following walking oximetry 5. Encourage incentive spirometer use and mobilize patient as tolerated. 6. Continue bronchodilators as ordered. 7. Follow-up with nurse practitioner in 2 weeks after discharge from [facility] in our office and then establish with Dr. Mccratney IMPRESSIONS: 1. Acute on chronic combined respiratory failure Patient appears to be doing well from a respiratory standpoint. Patient tolerating regular nasal cannula oxygen. Barium swallow did show some silent aspiration and patient has been placed on modified diet. Steroids can be weaned over the next 12 to 14 days. Patient does have advanced COPD history of radiation secondary to cancer per history and requires 4 L nasal cannula at baseline. Agree with rehab stay. Patient may benefit from palliative evaluation. Patient should have a walking oximetry prior to discharge. Patient can follow-up with nurse practitioner in 2 weeks. Patient would like to establish with Dr. Mccartney and transfer care from the [facility]. 2. Septic shock secondary to community-acquired versus aspiration pneumonia Continue current supportive measures as noted above with broad-spectrum antimicrobial coverage. Vasopressor support has been weaned for some time and patient has remained hemodynamically stable. Patient has completed an appropriate amount of antibiotics from my perspective. 3. 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 There has been no evidence of cancer recurrence according to the patient's pulmonary provider at [facility]. 4. Congestive heart failure/Mobitz type II heart block status post pacemaker placement Okay to continue medical optimization of congestive heart failure. Can be transition to p.o. at the current dosing. 5. Pulmonary hypertension/hypertension/hyperlipidemia/advanced age/CODE STATUS Complicates care, management, recovery and prognosis. Physical therapy to work with patient as tolerated. Goals of care/CODE STATUS was discussed with the patient prior to intubation and he wished to remain full code. Code Visit Inpatient E&M: 04237 Subs Hosp L2
--- NOTE | 2019-06-05 09:25 | CASEMGMT ---
[facility] received orders for discharge. Faxed orders to [facility]. Katelynn called DOROTEO and said patient cannot come before 2p as the bed will not be available until then. DOROTEO spoke with patient and his letting them know this information. Patient's said she could transport patient. She has his portable O2. Convalescent was completed on . Plan: d/c to [facility] under skilled level of care on a convalescent stay. Patient's will transport patient. Kathrine RAMIREZ MSW
[2019-06-05] MEDS: predniSONE 20 MG Tablet 40 MG PO (10:25)
[2019-06-05] MEDS: Enoxaparin 40 MG/0.4 ML Syringe SC (10:26)
[2019-06-05] MEDS: Sertraline 50 MG Tablet PO (10:26)
[2019-06-05] MEDS: Senna/Docusate Sodium 1 Tablet 2 TABLET PO (10:26)
[2019-06-05] MEDS: 0.9% Saline Lock 10 ML Syringe IV (10:27)
[2019-06-05] MEDS: Furosemide 40 MG/4 ML Vial IV (10:27)
[2019-06-05 12:00] LABS: Bedside Glucose 108 mg/dL (70-110)
--- NOTE | 2019-06-05 13:08 | DS.PCM_ITS ---
Discharge Date and Diagnosis - Problem List Patient Problems: Active and Suspected Problems (Last Reviewed 05/28/19 @ 02:11 by Jacobo Unger MD) COPD exacerbation (Acute) Date of Admission: 05/28/19 Date of Discharge: 06/05/19 - Primary Discharge Diagnosis Active and Suspected Problems (Last Reviewed 05/28/19 @ 02:11 by Jacobo Unger MD) COPD exacerbation (Acute) - Secondary Discharge Diagnosis Chronic Problems (Last Reviewed 05/28/19 @ 02:11 by Jacobo Unger MD) Essential hypertension (Chronic) Paroxysmal atrial flutter (Chronic) Presence of cardiac pacemaker (Chronic) Non-rheumatic tricuspid valve insufficiency (Chronic) Diastolic dysfunction (Chronic) Aortic valve stenosis, nonrheumatic (Chronic) 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) 06/11/17 Chronic respiratory failure (Chronic) COPD (chronic obstructive pulmonary disease) (Chronic) Conduction disorder of the heart (Chronic) Aortic valve disorder (Chronic) Pulmonary hypertension (Chronic) GERD (gastroesophageal reflux disease) (Chronic) Bullous emphysema (Chronic) Hospital Course and Treatment Imaging Results: CXR: IMPRESSION: Chronic interstitial lung disease without significant change since the previous study. CTA Chest: IMPRESSION: No demonstrated pulmonary embolism or arterial dissection. Possible pulmonary edema or bilateral pneumonia. Small bilateral pleural effusions. There is irregular mass in the right lower lobe measures approximately 6.2 x 5.6 cm most likely represent a neoplasm. Barium Swallow: RECOMMENDATIONS AND CONSIDERATIONS: The Patient was noted to SILENTLY aspirate with thin liquids, with clinical assessment at bedside relying on identification of classic overt signs and symptoms of aspiration considered unreliable. All penetration identified very scant in nature, with very minimal amounts of contrast identified (approximately < 5% of bolus). Would strongly discourage advancement past nectar thickened liquids without completion of a repeat modified barium swal low study due to the presence of aspirate identified that was SILENT in nature. RECOMMENDATIONS FOR INTERVENTION: The Patient requires intensive skilled speech-language intervention targeting diet texture management and training / implementation of recommended compensatory strategies; training and implementation of a oral care protocol to reduce the effects of xerostomia and improve / maintain the integrity of the oral mucosa reducing the risk of aspiration related pulmonary complications; training, implementation, and Patient / caregiver education regarding implementation of the [place] Free Water Protocol (FFWP) if / when he is clinically appropriate; Patient / caregiver education regarding angeli and post-irradiation dysphagia and associated symptomology; Patient and caregiver education regarding dysphagia associated with chronic obstructive pulmonary disease (COPD); Patient and caregiver training targeting meal preparation / thickened liquid preparation if unable to advance to baseline diet textures prior to discharge. Would further consider training and implementation of oropharyngeal strengthening exercises to facilitate improved oropharyngeal strength and coordination. Strongly encourage dedicated use of incentive spirometer to facilitate improved pulmonary expansion and cough intensity. ADDITIONAL COMMENTS/RECOMMENDATIONS: Results and recommendations were discussed with the Patient and Patients family immediately following MBS completion, with the Patient and Patients family verbalizing understanding and agreement with all recommendations and education provided. We discussed factors impacting effects of aspiration, to include: the quantity of aspiration, the depth of aspiration (trachea or distal airways), and the physical properties of the aspirate. We discussed consequences of oropharyngeal dysphagia, to include pulmonary complications from tracheobronchial aspiration; potential for airway obstruction / asphyxiation; inadequate oral intake because of dysphagia; reduced liquid intake resulting in dehydration; reduced caloric intake resulting in unintentional and potentially medically complicating loss of weight; impairment in mental and physical condition; and complications in overall course of care. DIET TEXTURE RECOMMENDATIONS: Will recommend a pureed textured (IDDSI: 4), nectar thickened liquid (IDDSI: 2) diet RECOMMENDED COMPENSATORY STRATEGIES: Distant supervision, reduced bolus volume / rate of ingestion, liquid chaser at reasonable intervals, MUST be seated upright at 90 degrees DURING PO intake, REMAIN upright for 30-60 minutes POST meal (esophageal dysmotility precaution), medications crushed in purees. Consults: Pulmonology Operations: None Procedures: Central line placement Summary of Care Provided: Per HPI: The patient is a 83 year old M with a significant history of lung cance r; permanent pacemaker; essential hypertension; diastolic heart failure; COPD with 4 L nasal cannula home oxygen [id number] who presented to emergency department with sudden shortness of breath that started about 20 minutes before presentation. When paramedics got his place his oxygen saturation was 70% on his 4 L nasal cannula. He was placed on nonrebreather which brought his oxygen saturation to 90%. At the emergency department patient was found to have severely low pH; severely high PCO2. Patient was placed on BiPAP. Associated with his symptoms is wheezing. Patient has a chronic productive cough with at times clear to at times brownish- green sputum. Hospital Course: 1. Septic shock secondary to community-acquired pneumonia versus aspiration pneumonia/acute on chronic rotatory failure secondary to acute COPD exacerbation/chronic diobvfyre-[id number]-[id number]-old male with a history of right lower lobe lung cancer which is been treated and he currently has scar tissue there is evidence by multiple prior CT scans, presents with shortness of breath that started about 20 minutes prior to his initial presentation in the ER. He has oxygen at home that he uses 24 hours a day, with an oxygen concentrator up to 5 L if needed. He was initially placed on nonrebreather because his oxygen saturations were 70% on the 4 L nasal cannula that he came in on. Initially it was attempted to maintain noninvasive respiratory measures with BiPAP to improve his oxygenation however this was unsuccessful and he was intubated on 05/28/2019. He was extubated a few days later and improved with BiPAP back to his baseline of 4 L nasal cannula. He has steadily improved with broad-spectrum antibiotics and steroids. He has completed his antibiotic course and was discharged with a steroid taper to a [facility] for [facility]hab prior to discharge home. I discussed the plan with discharge to penitentiary facility for rehab with both the patient and the and they are both agreeable. The expressed understanding the risks and benefits of discharge. 2. Severe pulmonary hypertension/chronic diastolic CHF/moderate to severe aortic valve stenosis/pacemaker for Mobitz type II AV block/HTN-Part of the difficulty with his respiratory status was volume overload. Because of his illness and sepsis he was given a significant amount of fluids. He received over the course of his stay about 17 L and therefore we aggressively diuresed him and continued with his own home Lasix and we were able to diurese the same amount of volume that went in by the time he went home. No changes were made to his other home medications. 3. His other medical diagnoses were evaluated and his home medications were continued where appropriate Patient Problems: Active and Suspected Problems (Last Reviewed 05/28/19 @ 02:11 by Jacobo Unger MD) COPD exacerbation (Acute) - Physical Exam Vitals/I&O's: Vital Signs Temp Pulse Resp BP Pulse Ox 98.6 F 87 18 103/50 L 94 06/05/19 08:09 06/05/19 11:12 06/05/19 11:12 06/05/19 08:09 06/05/19 08:09 Oxygen Flow Rate (L/min) 4 Oxygen Delivery Method Nasal Cannula Weight: 139 lb 5.314 oz Body Mass Index (BMI) 24.3 Intake and Output for Last 24 Hours 06/03/19 06/04/19 06/05/19 23:59 23:59 23:59 Intake Total 1166.25 / 1166.25 903.25 / 903.25 660 / 660 Output Total 600 / 600 1030 / 1030 Balance 566.25 / 566.25 903.25 / 903.25 -370 / -370 General: Alert, Oriented x3, Cooperative, No apparent distress HEENT: Atraumatic, PERRLA, EOMI, Normocephalic Oral: Moist Mucosa Neck: Supple, No JVD Lungs: Clear to auscultation, poor air movement, No rhonchi, No wheeze, No rales, Diminished Cardiovascular: Regular rate, Regular Rhythm, Normal S1, Normal S2, Murmur - 2 out of 6 CLYDE at RUSB Abdomen: Soft, Non Tender, Non-Distended, No Hepato-splenomegaly Extremities: No edema, Capillary Refill Less than 3 Seconds Skin: No rashes, No breakdown Neurological: Neuro grossly intact, Sensory exam intact to light touch and pain Psych/Mental Status: Normal Affect, Appropriate Laboratory Results 06/04/19 16:29: POC Glucose 136 H 06/04/19 23:09: POC Glucose 108 06/05/19 05:00: Sodium 143, Potassium 3.8, Chloride 100, Carbon Dioxide 39.0 H, Anion Gap 4 L, BUN 33 H, Creatinine 0.57 L, Estim Creat Clear Calc 50.99, Est GFR (MDRD) Af Amer 176, Est GFR (MDRD) Non-Af 146, BUN/Creatinine Ratio 58.1 H, Glucose 157 H, Calcium 8.5 06/05/19 06:20: POC Glucose 136 H 06/05/19 11:52: POC Glucose 108 Current Medications Acetaminophen (Tylenol) 650 mg PO Q6H PRN PRN PRN Reason: Pain Score 4-1010 Last Admin: 06/05/19 12:20 Dose: 650 mg Documented by: Albuterol Sulfate (Ventolin Aerosols) 2.5 mg INHALATION Q2H PRN PRN PRN Reason: SHORTNESS OF BREATH Dextrose (D50w Syringe) 0 gm IV X1 PRN; Protocol PRN Reason: Hypoglycemia Enoxaparin Sodium (Lovenox) 40 mg SC DAILY@1000 [facility] Last Admin: 06/05/19 10:26 Dose: 40 mg Documented by: Furosemide (Lasix) 40 mg IV DAILY [facility] Last Admin: 06/05/19 10:27 Dose: 40 mg Documented by: Glucagon () 1 mg IM .X1 PRN PRN Reason: Hypoglycemia Sodium Chloride () 250 mls @ 15 mls/hr IV .[id number] PRN PRN Reason: Saline Flush Last Infusion: 06/04/19 03:35 Dose: 0 mls/hr Documented by: Sodium Chloride () 250 mls @ 15 mls/hr IV .[id number] PRN PRN Reason: Saline Flush Last Infusion: 06/01/19 22:00 Dose: Infused Documented by: Insulin Human Lispro (Humalog Kwikpen (Bkc)) 0 unit SC Q6 [facility]; Protocol Last Admin: 06/05/19 11:57 Dose: Not Given Documented by: Ipratropium [place] (Atrovent) 0.5 mg INHALATION Q4H.RT [facility] Last Admin: 06/05/19 11:12 Dose: 0.5 mg Documented by: Lorazepam (Ativan) 0.25 mg IV Q6H PRN PRN PRN Reason: ANXIETY Last Admin: 05/31/19 17:28 Dose: 0.25 mg Documented by: Ondansetron HCl (Zofran) 4 mg IV Q8H PRN PRN PRN Reason: NAUSEA/VOMITING Prednisone () 40 mg PO DAILY@0800 [facility] Last Admin: 06/05/19 10:25 Dose: 40 mg Documented by: Senna/Docusate Sodium (Senokot-S, Angeli-Colace) 2 tablet PO BID [facility] Last Admin: 06/05/19 10:26 Dose: 2 tablet Documented by: Sertraline HCl (Zoloft) 50 mg PO DAILY [facility] Last Admin: 06/05/19 10:26 Dose: 50 mg Documented by: Sodium Chloride () 10 - 40 ml IV UD PRN PRN Reason: SALINE FLUSH Last Admin: 06/05/19 10:27 Dose: 10 ml Documented by: Sodium Chloride (0.9% Nacl (Sterile) Posiflush) 10 - 40 ml IV UD PRN PRN Reason: Port access or dressing change Sodium Chloride ([place] Nasal [place]) 2 spray NASAL Q4H PRN PRN Reason: NASAL DRYNESS Home Medications: Medications to take at Discharge Cholecalciferol (VIT D3) [Vitamin D3] 1,000 unit PO DAILY 06/25/16 Polyethylene Glycol 3350 [Miralax] 17 gm PO DAILY PRN PRN 09/27/16 Acetaminophen [Tylenol Tablet] 650 mg PO Q6H PRN PRN #0 tab 10/24/16 Amlodipine [Norvasc] 5 mg PO DAILY #30 tab 06/12/17 Losartan Potassium 25 mg PO DAILY #0 06/12/17 umeclidinium 62.5 mcg-vilanterol 25 mcg/actuation powdr for inhalation 1 inh INHALATION Q24H 08/16/17 Albuterol IH (ProAir) [Proair Hfa] 2 puff INHALATION Q4H PRN PRN #0 11/01/18 Furosemide [Lasix] 40 mg PO DAILY #30 tab 11/01/18 Ipratropium/Albuterol Sulfate [Duoneb] 3 ml INHALATION Q4H PRN PRN #30 ampul.neb 11/01/18 predniSONE tablet 40 mg PO DAILY@0800 #0 tab 06/05/19 Primary Care Physician: Misael Valencia MD [Primary Care Provider] - Please follow up with your Primary Care Physician in: 3-5 days Please Follow Up With: Janusz Mccartney DO When: 1-2 weeks Disposition: [facility] facility Minutes spent on discharge:: 35 Patient Condition:: Stable Medical Necessity - Tobacco Use Smoking Status: Former smoker Tobacco Use: Cigarettes, Cigars Meaningful Use Info Meaningful Use Diagnoses (Choose all that apply): None applicable Code Visit Inpatient E&M: 48668 Disch Hosp
== END 2019-06-05 14:30 | DRG 871 ==
LOC: ED 23:44 → ICU 05-28 01:48 → PCU 06-02 13:51
PROVIDERS: Internal Medicine; Internal Medicine Critical Care Medicine; Admitting Provider Hospitalist; Emergency Provider Emergency Medicine; Family Provider Internal Medicine; PCP Internal Medicine; Visit Provider Family Medicine
DX: A41.9 Sepsis, unspecified organism (principal); J96.21 Acute and chronic respiratory failure with hypoxia; R65.21 Severe sepsis with septic shock; J96.22 Acute and chronic respiratory failure with hypercapnia; J18.9 Pneumonia, unspecified organism; J69.0 Pneumonitis due to inhalation of food and vomit; E87.1 Hypo-osmolality and hyponatremia; J44.1 Chronic obstructive pulmonary disease with (acute) exacerbation; I42.9 Cardiomyopathy, unspecified; I50.42 Chronic combined systolic (congestive) and diastolic (congestive) heart failure; Z99.81 Dependence on supplemental oxygen; I11.0 Hypertensive heart disease with heart failure; I27.20 Pulmonary hypertension, unspecified; I35.0 Nonrheumatic aortic (valve) stenosis; R13.10 Dysphagia, unspecified; Z95.0 Presence of cardiac pacemaker; Z92.3 Personal history of irradiation; Z87.891 Personal history of nicotine dependence; Z85.118 Personal history of other malignant neoplasm of bronchus and lung; I44.1 Atrioventricular block, second degree; K21.9 Gastro-esophageal reflux disease without esophagitis
CPT/HCPCS: 31500; 31720; 36415; 36600; 71045; 71275; 74230; 80048; 80076; 80202; 81001; 82550; 82570; 82803; 82962; 83036; 83605; 83735; 83880; 83930; 83935; 84100; 84300; 84443; 84478; 84484; 85025; 85027; 85610; 85730; 87040; 87070; 87086; 87205; 87449; 87633; 87641; 87804; 92526; 92610; 92611; 93005; 94002; 94003; 94640; 94660; 95831; 97163; 97166; 97530; 97535; 97802; 97803; 99251; 99285; J2185; J7030; J7040; J7050; Q9967; A4216; C1751; G0463; J1940; J3490

== ENCOUNTER 2019-07-13 10:30 | Inpatient (IN) | payer MEDICARE, OTHER, SELFPAY ==
[2019-07-08 09:51] VITALS: BMI 21.6
[2019-07-13] VITALS (30 sets, daily range): BP systolic 89–161; BP diastolic 49–83; PULSE 53–115; RESP 12–40; TEMP 36.3–36.9; O2SAT 65–100; BMI 21.9; BMI 22.8
--- NOTE | 2019-07-13 10:42 | RAD_ITS ---
STUDY: X-RAY CHEST REASON FOR EXAM: Male, 83 years old. Worsening shortness of breath TECHNIQUE: 2 AP portable views COMPARISON: 05/27/2019 FINDINGS: EKG leads overlie the chest. Stable appearance of a left subclavian pacemaker Lungs are hyperexpanded with chronic interstitial fibrotic changes in both lung bases, bibasilar atelectasis and stable right pleural effusion. Little significant change since the previous study. Normal size heart. Normal mediastinum and rafia. Normal visualized pulmonary arteries. Normal visualized aortic arch and descending thoracic aorta. There are diffuse degenerative changes of the visualized thoracic spine. There is degenerative osteoarthritis of the bilateral shoulders. There is no demonstrated abnormality of the visualized soft tissue structures of the upper abdomen. RAD/Chest 1 View (Portable) IMPRESSION: No interval change Electronically Signed: Eloy Bertrand MD at 11:17 EST , Service support ,
--- NOTE | 2019-07-13 10:42 | EKG12_ITS ---
Test Reason : SOB Blood Pressure : / mmHG Vent. Rate : 112 BPM Atrial Rate : 112 BPM P-R Int : 130 ms QRS Dur : 152 ms QT Int : 396 ms P-R-T Axes : 068 -85 077 degrees QTc Int : 540 ms Atrial-sensed ventricular-paced rhythm Abnormal ECG Confirmed by ANGEL LUIS SOTO, SHASHANK ([id number]), assignment desk editor KEENAN SOTO ([id number]) on 07/16/2019 11:30:41 AM Referred By: Soniya Salcedo Confirmed By:SHASHANK HEIN MD
--- NOTE | 2019-07-13 10:58 | ED.DCSUM_ITS ---
History of Present Illness Chief Complaint: Shortness of Breath Informant: EMS Onset: Yesterday Context: Gradual Onset Narrative: Patient is an 83-year-old male with history of COPD, congestive heart failure and squamous cell carcinoma of the lung presenting with respiratory distress. Per EMS report patient had difficulty breathing this morning. He was hypoxic on scene and they brought him to the emergency room. Patient was placed on nonr ebreather. Patient is unable to contribute further to his history secondary to his respiratory distress. Per EMS report patient was intubated in May for respiratory failure. Family arrived. They state that he started having shortness of breath yesterday. He significant when he went to bed but then was significantly worse this morning. He had some associated cough. Past Medical History - Allergies and Home Meds Allergies/Adverse Reactions: Allergies ampicillin Allergy (Verified 07/08/19 09:50) Anaphylaxis azithromycin Allergy (Verified 07/13/19 10:45) Rash codeine Allergy (Verified 07/08/19 09:50) Rash penicillin G Allergy (Verified 07/08/19 09:50) Rash Sulfa (Sulfonamide Antibiotics) Allergy (Verified 07/08/19 09:50) Rash sulfamethoxazole [From Bactrim] Allergy (Verified 07/13/19 10:45) Rash trimethoprim [From Bactrim] Allergy (Verified 07/13/19 10:45) Rash Surgical History: appendectomy, cataract Smoking Status: Former smoker - Family History Paternal Family History: Family History (Last Reviewed 07/08/19 @ 09:54 by José Antonio Curry MD) Brother Diabetes Sister Diabetes Lung cancer Family History: Reports: No pertinent history Offspring Family History: Family History (Last Reviewed 07/08/19 @ 09:54 by José Antonio Curry MD) Brother Diabetes Sister Diabetes Lung cancer Family History: Reports: COPD Sibling Family History: Family History (Last Reviewed 07/08/19 @ 09:54 by José Antonio Curry MD) Brother Diabetes Sister Diabetes Lung cancer Family History: Reports: COPD, Diabetes, Heart Disease Maternal Family History: Family History (Last Reviewed 07/08/19 @ 09:54 by José Antonio Curry MD) Brother Diabetes Sister Diabetes Lung cancer Family History: Reports: Heart Disease, - - osteoporosis Review of Systems ROS: Unable to Obtain - Critical Illness, respiratory distress Physical Exam Vital Signs/Narrative: Vital Signs Temp Pulse Resp BP Pulse Ox 07/13/19 10:36 97.7 F L 112 H 40 H 161/83 H 65 07/13/19 10:31 111 H 29 H 161/83 H 96 Inital Vital Signs reviewed: Yes General: Well nourished, Well developed Head: Normocephalic, Atraumatic Eyes: Perrl, EOMI ENT: Dry mucous membranes Neck: Supple, Nontender, No JVD Cardiovascular: Regular rhythm, No murmurs, Tachycardia Respiratory: Wheezing, Diminished, Decreased Air Movement, - - Tachypneic. Negative for: No distress Abdomen: Soft, Nontender, Normal bowel sounds, - - Mildly distended abdomen, belly breathing Back: Nontender, Normal Inspection Extremities: Nontender, Edema - 1+ pedal Skin: Normal color, No rash Neurological: Alert, Cranial nerves II-XII grossly intact, Normal Strength, Normal Sensation, Disoriented Psychological: Normal affect Diagnostic/Tx/Re-eval Chest X-Ray - ED: 1 View, Read by ED Physician, Read by Radiologist, No Acute Disease Clinical Impression(s) from Imaging Studies Chest X-Ray 07/13/19 10:42 IMPRESSION: No interval change Electronically Signed: Eloy Bertrand MD at 11:17 EST , Service support , Laboratory Data 07/13/19 07/13/19 07/13/19 10:40 10:40 10:40 WBC 12.9 H RBC 4.19 L Hgb 12.7 L Hct 40.5 MCV 96.7 H MCH 30.3 MCHC 31.4 L RDW Std Deviation 42.1 RDW Coeff of Earline 11.8 Plt Count 282 MPV 9.4 Immature Gran % (Auto) 0.500 Neut % (Auto) 67.6 Lymph % (Auto) 21.8 [place] % (Auto) 9.0 Eos % (Auto) 0.6 Baso % (Auto) 0.5 Absolute Neuts (auto) 8.7 H Absolute Lymphs (auto) 2.82 Nucleated RBC % 0 Specimen Type Sample Site pH Bicarbonate Actual POC Total CO2 Base Excess O2 Saturation ABG pCO2 ABG pO2 Mo Test O2 Delivery Device Liter Flow Blood Gas Notified Whom Blood Gas Notified Time Sodium 133 L Potassium 4.2 Chloride 95 L Carbon Dioxide 34.0 H Anion Gap 4 L BUN 13 Creatinine 0.75 Estim Creat Clear Calc 55.83 Est GFR (MDRD) Af Amer 127 Est GFR (MDRD) Non-Af 105 BUN/Creatinine Ratio 17.3 Glucose 268 H Lactic Acid 1.4 Calcium 9.1 Troponin I < 0.015 07/13/19 10:49 WBC RBC Hgb Hct MCV MCH MCHC RDW Std Deviation RDW Coeff of Earline Plt Count MPV Immature Gran % (Auto) Neut % (Auto) Lymph % (Auto) [place] % (Auto) Eos % (Auto) Baso % (Auto) Absolute Neuts (auto) Absolute Lymphs (auto) Nucleated RBC % Specimen Type ART Sample Site R Radial pH 7.15 L* Bicarbonate Actual 36.6 H POC Total CO2 40 Base Excess 8 H O2 Saturation 93 L ABG pCO2 104.8 H* ABG pO2 89 Mo Test NA O2 Delivery Device NRB Mask Liter Flow 12.0 Blood Gas Notified Whom ED Blood Gas Notified Time 1047 Sodium Potassium Chloride Carbon Dioxide Anion Gap BUN Creatinine Estim Creat Clear Calc Est GFR (MDRD) Af Amer Est GFR (MDRD) Non-Af BUN/Creatinine Ratio Glucose Lactic Acid Calcium Troponin I - Rhythm Strip Rhythm Strip: Paced Rate: 112 - EKG Initial EKG Interpretation: - - Atrial sensed ventricular paced rhythm at a rate of 112 IL interval 130 QRS 152 QTc 540 Left axis deviation Nonspecific ST segment changes but no concordance - Medical Decision Making Patient arrives in respiratory distress. He was evaluated at the bedside immediately. Patient is on a nonrebreather and quickly transitioned to BiPAP. He is slightly altered. Patient's O2 saturation is improved with the nonrebreather and then with the BiPAP. Initial ABG on nonrebreather shows a significant respiratory acidosis. Patient improved while on BiPAP and his mentation improves as well. Patient is started on steroids as likely this is a COPD exacerbation is causing his symptoms. Patient has a very mild leukocytosis of 12. This might be reactive versus infectious. His lactate is normal. Other lab work is grossly normal. EKG and troponin are unremarkable. Patient is admitted to ICU for his respiratory failure. Family later at the bedside is able to provide further details. They are agreeable with this plan. Repeat ABG obtained in the ER shows improvement of his acidosis as well as his hypercapnia however patient is still requiring noninvasive ventilation. Critical care time (excluding procedures): 30-74 minutes - 37 minutes?direct patient care requiring titration of BiPAP and repeat physical exams. Discussing care with admitting physician as well as family. ED Disposition - Plan for ED Patient: Disposition: Acute Care [facility] Diagnosis: Acute on chronic respiratory failure with hypoxia and hypercapnia, COPD exacerbation
[2019-07-13 11:00] LABS: Absolute Lymphocyte Count 2.82 X10^3/uL (0.83-4.51); Absolute Neutrophil Count 8.7 X10^3/uL (2.0-7.7); Basophil# 0.07 X10^3/uL; Basophil% 0.5 % (0-1); Eosinophil# 0.08 X10^3/uL; Eosinophils% 0.6 % (0-5); Hematocrit 40.5 % (40-54); Hemoglobin 12.7 g/dL (13.0-16.5); Lymphocyte # 2.82 X10^3/ul (4.0); Lymphocyte % 21.8 % (19-41); Mean Corp Hgb Conc 31.4 g/dL (32-36); Mean Corpuscular Hgb 30.3 pg (27.0-32.0); Mean Corpuscular Volume 96.7 fL (80-94); Mean Platelet Vol. 9.4 fl (6.2-12.0); Monocyte# 1.16 X10^3/uL; NRBC Flagged by Analyzer 0 % (0-5); Neutrophil # 8.73 X10^3/uL (2.7-7.7); Neutrophil % 67.6 % (47-70); Platelet Count 282 K/mm3 (150-450); RBC Distribution Width CV 11.8 % (11.6-14.6); RBC Distribution Width SD 42.1 fl (35.1-43.9); Red Blood Count 4.19 M/mm3 (4.6-6.2); White Blood Count 12.9 K/mm3 (4.4-11.0)
[2019-07-13 11:05] LABS: Base Excess 8 mmol/L (-2 to +2); Bicarbonate 36.6 mmol/L (22-26); Blood Gas Specimen Type ART; O2 Delivery Device NRB Mask; PO2 89 mmHG (75-100); SITE R Radial; SO2 93 % (95-99); Time Given 1047; Total Carbon Dioxide 40 mmol/L; pCO2 104.8 mmHg (35-45); pH 7.15 (7.35-7.45)
[2019-07-13] MEDS: Ipratropium/Albuterol Sulfate 3 ML AMPUL.NEB INHALATION ×4 (11:15→23:06)
[2019-07-13] MEDS: Albuterol 2.5 MG/3 ML VIAL.NEB. INHALATION ×2 (11:15)
[2019-07-13 11:16] LABS: Lactic Acid 1.4 mmol/L (0.4-1.9)
[2019-07-13 11:21] LABS: Anion Gap 4 (5-15); BUN 13 mg/dL (7-18); BUN/Creat Ratio 17.3 RATIO (10-20); Calcium,Total 9.1 mg/dL (8.5-10.1); Chloride 95 mmol/L (98-107); Creatinine, Serum 0.75 mg/dL (0.70-1.30); EST Glomerular Filtration Rate 105 mL/min (>60); Est Glom Filt Rate - Afr Amer 127 mL/min (>60); Estimated Creatinine Clearance 55.83 ml/min; Glucose 268 mg/dL (74-106); Potassium 4.2 mmol/L (3.5-5.1); Sodium Level 133 mmol/L (136-145)
--- NOTE | 2019-07-13 11:27 | HP.PCM_ITS ---
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 (9) Aortic valve disorder Status: Chronic (10) Pulmonary hypertension Status: Chronic (11) GERD (gastroesophageal reflux disease) Status: Chronic Qualifiers: Esophagitis presence: esophagitis presence not specified Qualified Code(s): K21.9 - Gastro-esophageal reflux disease without esophagitis (12) Bullous emphysema Status: Chronic History of Present Illness Date of Admission: 07/13/19 Chief Complaint: Dyspnea, wheezing The patient is a 83 y/o M w/ PMHx: Chronic COPD w/ bullous emphysema w/ Chronic Hypoxic Respiratory Failure, Chronic Diastolic CHF, Valvular Heart Disease, Anxiety and Depression, Hx Mobitz Type II AVB s/p pacemaker, PAF, Pulmonary HTN, GERD, HTN, HLD, Personal Hx non-small cell lung cancer/right lower lobe masslike density chronic per prior CC Records secondary to post radiation fibrosis who presents to the [facility] ED on 07/13/19 with history of ongoing mild dyspnea worse with exertion since discharge following recent admission however not severe but over the last 48 hours he notes severe onset of dyspnea, worse with exertion, notable wheezing with a nonproductive minimal cough with increasing fatigue, malaise without fevers or chills associated prompting eventual ED presentation. is at bedside and does note that he had a very severe episode the evening prior but seem to improve but was recurrent today and did not lessen prompting evaluation. In the ED following BiPAP administration repeat ABG improved and patient does state that he is feeling a lot better since he initially presented to the ED. ABG second results not in acute Peter as of yet but per ED physician report PCO2 less than by approximately 20. Work-up in the ED included T 97.7, heart rate 112, BP 161/83, respiratory rate 40, initially 96% on nonrebreather with then noted 65% on 6 L nasal cannula, transition to BiPAP, CBC with WBC 12.9, hemoglobin 12.7, platelet 282 with left shift, ABG with pH 7.15, bicarb 36.6, O2 93%, PCO2 104.8, PO2 89 on 12 L nonrebreather, BMP with sodium 133, chloride 95,, Dex at 34, glucose 268, lactic acid 1.4, troponin less than 0.015, blood culture x2 pending per ED, chest x-ray with hyperinflation with chronic interstitial fibrotic changes in lung bases as well as bibasilar atelectasis and stable right pleural effusion unchanged from prior. In the ED patient ministered Solu-Medrol, DuoNeb and albuterol therapies as well as normal saline per ED. Past Medical History Past Medical History (Chronic Problems): Chronic Problems (Last Reviewed 07/08/19 @ 09:54 by José Antonio Curry MD) Essential hypertension (Chronic) Right lower lobe lung mass (Chronic) Paroxysmal atrial flutter (Chronic) Presence of cardiac pacemaker (Chronic) Non-rheumatic tricuspid valve insufficiency (Chronic) Diastolic dysfunction (Chronic) Aortic valve stenosis, nonrheumatic (Chronic) 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) 06/11/17 Chronic respiratory failure (Chronic) COPD (chronic obstructive pulmonary disease) (Chronic) Conduction disorder of the heart (Chronic) Aortic valve disorder (Chronic) Pulmonary hypertension (Chronic) GERD (gastroesophageal reflux disease) (Chronic) Bullous emphysema (Chronic) Medical History: Medical History (Last Reviewed 07/08/19 @ 09:54 by José Antonio Curry MD) Paroxysmal atrial flutter (Chronic) I48.92 Non-rheumatic tricuspid valve insufficiency (Chronic) I36.1 Diastolic dysfunction (Chronic) I51.9 Aortic valve stenosis, nonrheumatic (Chronic) I35.0 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) I44.1 Chronic respiratory failure (Chronic) J96.10 Dyspnea (Acute) R06.00 COPD (chronic obstructive pulmonary disease) (Chronic) J44.9 Chest pain (Inactive) R07.9 Conduction disorder of the heart (Chronic) I45.9 Aortic valve disorder (Chronic) I35.9 Pulmonary hypertension (Chronic) I27.20 GERD (gastroesophageal reflux disease) (Chronic) K21.9 Bullous emphysema (Chronic) J43.9 Lung nodule, solitary (Inactive) R91.1 Lung cancer (Inactive) C34.90 Anxiety F41.9 Hemoptysis R04.2 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 Chronic hypoxemic respiratory failure J96.11 Colon polyps FH: cardiovascular disease Z82.49 Family history of diabetes mellitus (DM) Z83.3 Acute exacerbation of chronic obstructive pulmonary disease (COPD) (Resolved) J44.1 Acute on chronic diastolic (congestive) heart failure (Resolved) I50.33 CAP (community acquired pneumonia) (Resolved) J18.9 failed OP therapy with Amoxicillin Dehydration (Resolved) E86.0 Drug rash (Resolved) L27.0 Hyperglycemia (Resolved) R73.9 Hyponatremia (Resolved) E87.1 Pulmonary congestion (Resolved) R09.89 Allergies ampicillin Allergy (Verified 07/08/19 09:50) Anaphylaxis azithromycin Allergy (Verified 07/13/19 10:45) Rash codeine Allergy (Verified 07/08/19 09:50) Rash penicillin G Allergy (Verified 07/08/19 09:50) Rash Sulfa (Sulfonamide Antibiotics) Allergy (Verified 07/08/19 09:50) Rash sulfamethoxazole [From Bactrim] Allergy (Verified 07/13/19 10:45) Rash trimethoprim [From Bactrim] Allergy (Verified 07/13/19 10:45) Rash Home Medications: Ambulatory Orders Medication Instructions Recorded Cholecalciferol (VIT D3) [Vitamin 1,000 unit PO DAILY 06/25/16 D3] Polyethylene Glycol 3350 [Miralax] 17 gm PO DAILY PRN PRN 09/27/16 Acetaminophen [Tylenol Tablet] 650 mg PO Q6H PRN PRN #0 tab 10/24/16 Amlodipine [Norvasc] 5 mg PO DAILY #30 tab 06/12/17 Losartan Potassium 25 mg PO DAILY #0 06/12/17 Albuterol IH (ProAir) [Proair Hfa] 2 puff INHALATION Q4H PRN PRN #0 11/01/18 Furosemide [Lasix] 40 mg PO DAILY #30 tab 11/01/18 umeclidinium 62.5 mcg-vilanterol 1 inh INHALATION Q24H 07/08/19 25 mcg/actuation powdr for inhalation Surgical History: Surgical History (Last Reviewed 07/08/19 @ 09:54 by José Antonio Curry MD) History of permanent cardiac pacemaker placement (Chronic) Z95.0 06/11/17 History of appendectomy Z98.890, Z90.49 Hx of cataract surgery Z98.49 Surgical History: appendectomy, cataract, pacemaker implantation Psychiatric History: Anxiety, Depression Lives: Spouse/ Significant Other Smoking Status: Former smoker - Previously cigarettes and cigar tobacco usage. Tobacco Use: Non-smoker Alcohol: None Drugs: None - *Family History Paternal Family History: Family History (Last Reviewed 07/08/19 @ 09:54 by José Antonio Curry MD) Brother Diabetes Sister Diabetes Lung cancer History Items: Heart Disease - Father with history of heart disease, at age 96. Offspring Family History: Family History (Last Reviewed 07/08/19 @ 09:54 by José Antonio Curry MD) Brother Diabetes Sister Diabetes Lung cancer History Items: COPD Sibling Family History: Family History (Last Reviewed 07/08/19 @ 09:54 by José Antonio Curry MD) Brother Diabetes Sister Diabetes Lung cancer History Items: COPD, Diabetes, Heart Disease Maternal Family History: Family History (Last Reviewed 07/08/19 @ 09:54 by José Antonio Curry MD) Brother Diabetes Sister Diabetes Lung cancer History Items: Heart Disease, - - osteoporosis Review of Systems Constitutional: Reports: Anorexia, Malaise, Weakness, Fatigue. Denies: Chills, Fever, Weight Change HEENT: Reports: Difficulty Swallowing. Denies: Head Aches, Sinus Congestion, Sinus Drainage Cardiovascular: Denies: Chest Pain, Palpitations Respiratory: Reports: Cough, Shortness of Breath, Shortness of breath at rest, S hortness of breath upon exertion, Wheezing. Denies: Sputum production Gastrointestinal: Denies: Abdominal Pain, Nausea, Vomiting Genitourinary: Denies: Dysuria Musculoskeletal: Reports: Back Pain, Joint Pain. Denies: Joint Tenderness Skin: Denies: Rash, Wounds Neurological: Denies: Numbness, Tingling, Focal weakness Psychiatric: Reports: Anxiety, Depression. Denies: Homicidal Ideations, Suicidal Ideations Hematologic/ Lymphatic: Reports: Easy Bruising, Easy Bleeding VTE Information - Inpt Only VTE Present on Admission: No VTE Mechan Device Prophylaxis: SCD's VTE Pharm Prophylaxis ordered?: Yes Patient Problems: Active and Suspected Problems (Last Reviewed 07/08/19 @ 09:54 by José Antonio Curry MD) Acute on chronic respiratory failure with hypoxia and hypercapnia (Acute) Subjective: Seated upright in the ED bed, BiPAP in place, clinically improving but still evidence of distress, increased respiratory rate if removed as RT obtained viral swab during evaluation with noted increased respiratory rate, accessory muscle usage. Objective: Physical Examination: General: awake, alert, oriented x 3 and cooperative, difficulty speaking as short of breath, unable to complete full sentences, history often given per family present at bedside, seated upright in the ED bed, obvious distress still but improved since initial presentation, BiPAP in place. Skin: normal color, turgor, no icterus, cyanosis. HEENT: AT/NC, EOMI, PERRLA, dry MM, BIPAP in place, no carotid bruits or JVD noted. Lungs: Severely diffusely diminished throughout, BiPAP in place, evident distress but clinically improving, BiPAP temporarily taken off for nasal swabbing with obvious increased work of breathing, conversational dyspnea, increased respiratory rate and accessory muscle usage, improved once replaced, currently given minimal air movement no obvious rales, rhonchi or wheezing. Heart: Paced, tachycardic; no gallop, rub audible. Abdomen: soft, thin habitus, NTTP, ND, normal BS, no HSM. Extremities: no cyanosis, clubbing, mild bilateral lower extremity pedal to mid mitchell edema, nonpitting. Neurological: patient awake, alert, oriented x 3; cognitive function intact; pupils equally reactive to light and accomodation; cranial nerves II-XII grossly normal, moving all 4 extremities, no focal deficits, strength severely global decrease secondary to acute presentation as noted. Psychiatric: affect appears fatigued, distressed as noted above, no acute romeo dence of depressive or anxiety feelings. - Physical Exam Vitals/I&O's: Vital Signs Temp Pulse Resp BP Pulse Ox 97.7 F L 111 H 26 H 161/83 H 98 07/13/19 10:36 07/13/19 11:18 07/13/19 11:18 07/13/19 10:36 07/13/19 11:00 Oxygen Flow Rate (L/min) 6 Oxygen Delivery Method Nasal Cannula Weight: 152 lb 12.485 oz Body Mass Index (BMI) 21.9 Laboratory Results 07/13/19 10:40: WBC 12.9 H, RBC 4.19 L, Hgb 12.7 L, Hct 40.5, MCV 96.7 H, MCH 30.3, MCHC 31.4 L, RDW Std Deviation 42.1, RDW Coeff of Earline 11.8, Plt Count 282, MPV 9.4, Immature Gran % (Auto) 0.500, Neut % (Auto) 67.6, Lymph % (Auto) 21.8, [place] % (Auto) 9.0, Eos % (Auto) 0.6, Baso % (Auto) 0.5, Absolute Neuts (auto) 8.7 H, Absolute Lymphs (auto) 2.82, Nucleated RBC % 0 07/13/19 10:40: Sodium 133 L, Potassium 4.2, Chloride 95 L, Carbon Dioxide 34.0 H, Anion Gap 4 L, BUN 13, Creatinine 0.75, Estim Creat Clear Calc 55.83, Est GFR (MDRD) Af Amer 127, Est GFR (MDRD) Non-Af 105, BUN/Creatinine Ratio 17.3, Glucose 268 H, Calcium 9.1, Troponin I < 0.015 07/13/19 10:40: Lactic Acid 1.4 07/13/19 10:49: Specimen Type ART, Sample Site R Radial, pH 7.15 L*, Bicarbonate Actual 36.6 H, POC Total CO2 40, Base Excess 8 H, O2 Saturation 93 L, ABG pCO2 104.8 H*, ABG pO2 89, Mo Test NA, O2 Delivery Device NRB Mask, Liter Flow 12.0, Blood Gas Notified Whom ED MD, Blood Gas Notified Time 1047 Current Medications Sodium Chloride () 500 mls @ 999 mls/hr IV .Q31M ONE Assessment/Plan All Active Problems (Last Reviewed 07/08/19 @ 09:54 by José Antonio Curry MD) Acute on chronic respiratory failure with hypoxia and hypercapnia (Acute) Esophageal stenosis (Acute) Severe sepsis (Acute) Sepsis (Acute) COPD exacerbation (Acute) Dyspnea (Acute) Acute exacerbation of chronic obstructive pulmonary disease (COPD) (Resolved) Acute on chronic diastolic (congestive) heart failure (Resolved) Acute respiratory failure with hypoxia and hypercapnia (Resolved) Bilateral pneumonia (Resolved) CAP (community acquired pneumonia) (Resolved) Dehydration (Resolved) Drug rash (Resolved) Hyperglycemia (Resolved) Hyponatremia (Resolved) Hypotension (Resolved) Pulmonary congestion (Resolved) Severe sepsis (Resolved) The patient is a 83 y/o M w/ PMHx: Chronic COPD w/ bullous emphysema w/ Chronic Hypoxic Respiratory Failure, Chronic Diastolic CHF, Valvular Heart Disease, Anxiety and Depression, Hx Mobitz Type II AVB s/p pacemaker, PAF, Pulmonary HTN, GERD, HTN, HLD, Personal Hx non-small cell lung cancer/right lower lobe masslike density chronic per prior CC Records secondary to post radiation fibrosis who presents to the [facility] ED on 07/13/19 with history of ongoing mild dyspnea worse with exertion since discharge following recent admission however not severe but over the last 48 hours he notes severe onset of dyspnea, worse with exertion, notable wheezing with a nonproductive minimal cough with increasing fatigue, malaise without fevers or chills. (1) Acute on chronic COPD exacerbation w/ Acute Hypoxic and Hypercarbic Respiratory Failure on Chronic: Work-up in the ED included T 97.7, heart rate 112, BP 161/83, respiratory rate 40, initially 96% on nonrebreather with then noted 65% on 6 L nasal cannula, transition to BiPAP, CBC with WBC 12.9, hemoglobin 12.7, platelet 282 with left shift, ABG with pH 7.15, bicarb 36.6, O2 93%, PCO2 104.8, PO2 89 on 12 L nonrebreather, BMP with sodium 133, chloride 95,, Dex at 34, glucose 268, lactic acid 1.4, troponin less than 0.015, blood culture x2 pending per ED, chest x-ray with hyperinflation with chronic interstitial fibrotic changes in lung bases as well as bibasilar atelectasis and stable right pleural effusion unchanged from prior. Given ABG, concern possible necessity for transition to intubation, requested repeat ABG which per ED report improved, patient improving, still evidence distress but lessening, holding on intubation, admit to the ICU, continue ATC duonebs, PRN albuterol, IV methylprednisolone, HOB, IS parameters, ICU consultation, IV Doxycycline with pending sputum cultures and respiratory viral panel. Dr. Mccartney consulted, pending. (2) Oropharyngeal Dysphagia: Noted prior recent admission w/ aspiration, 06/05/19 discharge to SNF w/ recommended puree diet, nectar thickened liquids, will have ST continue to evaluate patient during admission. (3) Chronic diastolic CHF: Cautiously hydrate given acute presentation #1 given history, echo as noted and valvular heart disease, maintain on aspirin, Lasix, losartan, not on beta-chucho for unclear reason but PAF history also noted, defer addition given acute presentation as noted #1, not on statin, defer to outpatient. (4) Valvular heart disease: 10/29/18 ECHO w/ mild segmental systolic dysfunction, EF 45%, mild enlarged LA, moderate to severe mitral annular calcification, extension of the mitral annular calcification into the posterior mitral valve leaflet, trivial MVI, mild to moderate TBI, moderate to severe aortic valve stenosis, RVSP 78 mmHg, evidence of diastolic dysfunction, 2D echocardiographic findings regarding the LV wall motion are potentially consistent with Takotsubo syndrome (5) Personal Hx non-small cell lung cancer: From prior admission noted right lower lobe masslike density chronic per prior CC Records secondary to post radiation fibrosis, remission. (6) PAF: s/p Pacemaker w/ #7 as noted. Patient is not on rate or rhythm agent, not anticoagulated, encourage continued follow-up with cardiology, closely monitor given aggressive aerosol usage. (7) Hx Mobitz Type II AVB s/p pacemaker (8) Hypertension: Continue home regimen including Norvasc, Lasix, losartan, PRN hydralazine. (9) Hyperlipidemia: Not on statin, defer to outpatient. (10) Anxiety and depression: Not on regimen, encourage continued follow-up outpatient initiation of regimen if appropriate. (11) GERD: Maintained on famotidine. (12) DVT prophylaxis: SCDs, lovenox. (13) CODE status: is present at the bedside, denies any healthcare power of contracts attorney formal set up nor living will. Discussed the importance of instituting these measures and advised her to discuss with case management if interested in information and assistance. Discussed CODE status at length including difference between FULL code, DNR-CCA and DNR-CC status. Following discussions about the differences in these status, requested full code status. Advanced Care Planning Face to Face Time: 16 minutes. Code Visit Inpatient E&M: 43745 Init Hosp L3 Procedures: 83545 Advncd Care Plan 30 Min
[2019-07-13] MEDS: MethylPREDNISolone 125 MG/2 ML Vial IV (11:29)
--- NOTE | 2019-07-13 11:51 | NURSING ---
ICU ACUTE RESP FAILURE ON CHRONIC, COPD EXAC WHITE
--- NOTE | 2019-07-13 11:59 | CPS ---
CRITICAL PH AND CO2 VALUE, DR. FREY NOTIFIED
--- NOTE | 2019-07-13 12:00 | CPS ---
CRITICAL CO2 VALUE DR. FREY NOTIFIED
[2019-07-13] MEDS: 0.9% Normal Saline 1,000 ML 100 ML IV (13:22)
[2019-07-13 14:22] LABS: Hemoglobin A1c 5.7 % (4.2-6.3)
[2019-07-13 17:16] LABS: Allen Test POS; Base Excess 6 mmol/L (-2 to +2); Bicarbonate 30.5 mmol/L (22-26); Blood Gas Specimen Type ART; EPAP 8; FI02 35; IPAP 14; PO2 61 mmHG (75-100); RR 12; SITE L Radial; SO2 90 % (95-99); Time Given 1707; Total Carbon Dioxide 32 mmol/L; pH 7.39 (7.35-7.45)
[2019-07-14] VITALS (28 sets, daily range): BP systolic 96–136; BP diastolic 49–64; PULSE 72–118; RESP 12–28; TEMP 36.6–37.1; O2SAT 36–100
[2019-07-14] MEDS: Albuterol 2.5 MG/3 ML VIAL.NEB. INHALATION (05:33)
[2019-07-14] MEDS: Ipratropium/Albuterol Sulfate 3 ML AMPUL.NEB INHALATION ×3 (06:41→14:53)
[2019-07-14 06:50] LABS: Absolute Lymphocyte Count 0.62 X10^3/uL (0.83-4.51); Absolute Neutrophil Count 3.3 X10^3/uL (2.0-7.7); Hematocrit 29.6 % (40-54); Hemoglobin 9.3 g/dL (13.0-16.5); Lymphocyte # 0.62 X10^3/ul (4.0); Lymphocyte % 14.7 % (19-41); Mean Corp Hgb Conc 31.4 g/dL (32-36); Mean Corpuscular Hgb 29.5 pg (27.0-32.0); Mean Platelet Vol. 9.5 fl (6.2-12.0); Monocyte# 0.25 X10^3/uL; Monocyte% 5.9 % (0-10); NRBC Flagged by Analyzer 0 % (0-5); Neutrophil # 3.33 X10^3/uL (2.7-7.7); Neutrophil % 79.2 % (47-70); Platelet Count 198 K/mm3 (150-450); RBC Distribution Width CV 11.9 % (11.6-14.6); RBC Distribution Width SD 40.7 fl (35.1-43.9); Red Blood Count 3.15 M/mm3 (4.6-6.2); White Blood Count 4.2 K/mm3 (4.4-11.0)
[2019-07-14 07:07] LABS: Anion Gap 2 (5-15); BUN 15 mg/dL (7-18); BUN/Creat Ratio 25.4 RATIO (10-20); Calcium,Total 8.6 mg/dL (8.5-10.1); Chloride 100 mmol/L (98-107); Creatinine, Serum 0.59 mg/dL (0.70-1.30); EST Glomerular Filtration Rate 139 mL/min (>60); Est Glom Filt Rate - Afr Amer 169 mL/min (>60); Estimated Creatinine Clearance 51.39 ml/min; Glucose 143 mg/dL (74-106); Potassium 4.3 mmol/L (3.5-5.1); Sodium Level 134 mmol/L (136-145)
[2019-07-14 08:21] LABS: Base Excess 8 mmol/L (-2 to +2); Bicarbonate 35.6 mmol/L (22-26); Blood Gas Specimen Type ART; EPAP 8; FI02 60; IPAP 14; RR 12; SITE R Radial; Time Given 1137; Total Carbon Dioxide 38 mmol/L; pCO2 87.3 mmHg (35-45); pH 7.22 (7.35-7.45)
[2019-07-14] MEDS: amLODIPine 5 MG Tablet PO (08:29)
[2019-07-14] MEDS: Losartan Potassium 25 MG Tablet PO (08:29)
[2019-07-14] MEDS: Enoxaparin 40 MG/0.4 ML Syringe SC (08:29)
[2019-07-14] MEDS: Furosemide 40 MG Tablet PO (08:29)
[2019-07-14 08:31] LABS: PO2 183 mmHG (75-100)
[2019-07-14 08:32] LABS: SO2 99 % (95-99)
--- NOTE | 2019-07-14 08:47 | PCM.CON.CC ---
Problem List (1) Acute on chronic respiratory failure with hypoxia and hypercapnia Status: Acute (2) Esophageal stenosis Status: Acute (3) COPD exacerbation Status: Acute (4) Right lower lobe lung mass Status: Chronic (5) Paroxysmal atrial flutter Status: Chronic (6) Non-rheumatic tricuspid valve insufficiency Status: Chronic (7) Diastolic dysfunction Status: Chronic (8) Aortic valve stenosis, nonrheumatic Status: Chronic (9) Mobitz type 2 second degree AV block Status: Chronic (10) COPD (chronic obstructive pulmonary disease) Status: Chronic Qualifiers: COPD type: unspecified COPD Qualified Code(s): J44.9 - Chronic obstructive pulmonary disease, unspecified (11) Pulmonary hypertension Status: Chronic (12) GERD (gastroesophageal reflux disease) Status: Chronic Qualifiers: Esophagitis presence: esophagitis presence not specified Qualified Code(s): K21.9 - Gastro-esophageal reflux disease without esophagitis (13) Bullous emphysema Status: Chronic Reason for Consult Date of Consultation: 07/14/19 Reason for Consultation: Respiratory failure History of Present Illness: The patient is a 83 year old M, with past medical history listed below, who presented to [facility] on 07/13/2019 secondary to progressive shortness of breath. Patient had just left the rehab unit approximately 2 weeks ago. On EMS arrival, patient was noted to be hypoxic and was placed on a nonrebreather. Patient was unable to provide additional history, but family reportedly stated that shortness of breath began 24 hours prior to presentation. Patient also had had a cough, but unclear if there were production. In the emergency department, patient was noted to be in significant respiratory distress despite a nonrebreather mask. Patient was transitioned to BiPAP with some improvement. ABG showed significant acidosis from CO2 retention initially. Patient did have a leukocytosis of 12, so was started on empiric antibiotics. Repeat ABG showed response to BiPAP therapy, so patient was admitted to the intensive care unit for further evaluation. Patient was noted to have an elevated QTC with left axis deviation and nonspecific ST segment changes in the ER. Overnight, patient has remained on BiPAP therapy. Patient states that he was transition to a regular diet on discharge from the rehab unit and has been eating accordingly. Patient is unclear if he has had any sick contacts. Patient denies any chest pain and is asking for a p.o. diet at this time. Patient denies any nausea, vomiting or aspiration events. Review of systems otherwise negative from a constitutional, HEENT, respiratory, cardiovascular, GI, genitourinary, musculoskeletal, skin, neurologic, psychiatric and hematologic system unless stated above. Past Medical History Past Medical History (Chronic Problems): Chronic Problems (Last Reviewed 07/08/19 @ 09:54 by José Antonio Curry MD) Essential hypertension (Chronic) Right lower lobe lung mass (Chronic) Paroxysmal atrial flutter (Chronic) Presence of cardiac pacemaker (Chronic) Non-rheumatic tricuspid valve insufficiency (Chronic) Diastolic dysfunction (Chronic) Aortic valve stenosis, nonrheumatic (Chronic) 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) 06/11/17 Chronic respiratory failure (Chronic) COPD (chronic obstructive pulmonary disease) (Chronic) Conduction disorder of the heart (Chronic) Aortic valve disorder (Chronic) Pulmonary hypertension (Chronic) GERD (gastroesophageal reflux disease) (Chronic) Bullous emphysema (Chronic) Medical History: Medical History (Last Reviewed 07/08/19 @ 09:54 by José Antonio Curry MD) Paroxysmal atrial flutter (Chronic) I48.92 Non-rheumatic tricuspid valve insufficiency (Chronic) I36.1 Diastolic dysfunction (Chronic) I51.9 Aortic valve stenosis, nonrheumatic (Chronic) I35.0 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) I44.1 Chronic respiratory failure (Chronic) J96.10 Dyspnea (Acute) R06.00 COPD (chronic obstructive pulmonary disease) (Chronic) J44.9 Chest pain (Inactive) R07.9 Conduction disorder of the heart (Chronic) I45.9 Aortic valve disorder (Chronic) I35.9 Pulmonary hypertension (Chronic) I27.20 GERD (gastroesophageal reflux disease) (Chronic) K21.9 Bullous emphysema (Chronic) J43.9 Lung nodule, solitary (Inactive) R91.1 Lung cancer (Inactive) C34.90 Anxiety F41.9 Hemoptysis R04.2 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 Chronic hypoxemic respiratory failure J96.11 Colon polyps FH: cardiovascular disease Z82.49 Family history of diabetes mellitus (DM) Z83.3 Acute exacerbation of chronic obstructive pulmonary disease (COPD) (Resolved) J44.1 Acute on chronic diastolic (congestive) heart failure (Resolved) I50.33 CAP (community acquired pneumonia) (Resolved) J18.9 failed OP therapy with Amoxicillin Dehydration (Resolved) E86.0 Drug rash (Resolved) L27.0 Hyperglycemia (Resolved) R73.9 Hyponatremia (Resolved) E87.1 Pulmonary congestion (Resolved) R09.89 Allergies ampicillin Allergy (Verified 07/08/19 09:50) Anaphylaxis azithromycin Allergy (Verified 07/13/19 10:45) Rash codeine Allergy (Verified 07/08/19 09:50) Rash penicillin G Allergy (Verified 07/08/19 09:50) Rash Sulfa (Sulfonamide Antibiotics) Allergy (Verified 07/08/19 09:50) Rash sulfamethoxazole [From Bactrim] Allergy (Verified 07/13/19 10:45) Rash trimethoprim [From Bactrim] Allergy (Verified 07/13/19 10:45) Rash Home Medications: Ambulatory Orders Medication Instructions Recorded Cholecalciferol (VIT D3) [Vitamin 1,000 unit PO DAILY 06/25/16 D3] Polyethylene Glycol 3350 [Miralax] 17 gm PO DAILY PRN PRN 09/27/16 Acetaminophen [Tylenol Tablet] 650 mg PO Q6H PRN PRN #0 tab 10/24/16 Amlodipine [Norvasc] 5 mg PO DAILY #30 tab 06/12/17 Losartan Potassium 25 mg PO DAILY #0 06/12/17 Albuterol IH (ProAir) [Proair Hfa] 2 puff INHALATION Q4H PRN PRN #0 11/01/18 Furosemide [Lasix] 40 mg PO DAILY #30 tab 11/01/18 umeclidinium 62.5 mcg-vilanterol 1 inh INHALATION Q24H 07/08/19 25 mcg/actuation powdr for inhalation Surgical History: Surgical History (Last Reviewed 07/08/19 @ 09:54 by José Antonio Curry MD) History of permanent cardiac pacemaker placement (Chronic) Z95.0 06/11/17 History of appendectomy Z98.890, Z90.49 Hx of cataract surgery Z98.49 Surgical History: appendectomy, cataract, pacemaker implantation Psychiatric History: Anxiety, Depression Lives: Spouse/ Significant Other Smoking Status: Former smoker Tobacco Use: Non-smoker Alcohol: None Drugs: None - *Family History Paternal Family History: Family History (Last Reviewed 07/08/19 @ 09:54 by José Antonio Curry MD) Brother Diabetes Sister Diabetes Lung cancer History Items: Heart Disease - Father with history of heart disease, at age 96. Offspring Family History: Family History (Last Reviewed 07/08/19 @ 09:54 by José Antonio Curry MD) Brother Diabetes Sister Diabetes Lung cancer History Items: COPD Sibling Family History: Family History (Last Reviewed 07/08/19 @ 09:54 by José Antonio Curry MD) Brother Diabetes Sister Diabetes Lung cancer History Items: COPD, Diabetes, Heart Disease Maternal Family History: Family History (Last Reviewed 07/08/19 @ 09:54 by José Antonio Curry MD) Brother Diabetes Sister Diabetes Lung cancer History Items: Heart Disease, - - osteoporosis Review of Systems Comment: See HPI Patient Problems: Active and Suspected Problems (Last Reviewed 07/08/19 @ 09:54 by José Antonio Curry MD) Acute on chronic respiratory failure with hypoxia and hypercapnia (Acute) COPD exacerbation (Acute) Objective: Chest x-ray was personally reviewed and shows bilateral interstitial infiltrates. Previous echocardiogram from October 2018 showed moderate to severe mitral annular calcification with an EF of 45% and an elevated right ventricular systolic pressure of 78 mmHg. Patient also noted to have moderate to severe aortic valve stenosis. There was some concern for [place] cardiomyopathy. Previous PFT completed in 2009 showed an irreversible moderate large airways obstructive ventilatory defect with a reduction in diffusion capacity (FVC 93%, FEV1 59%, TLC 125%, DLCO 32%) - Physical Exam Vitals/I&O's: Vital Signs Temp Pulse Resp BP Pulse Ox 36.6 C 86 16 104/63 95 07/14/19 04:00 07/14/19 08:00 07/14/19 08:00 07/14/19 08:00 07/14/19 08:00 Oxygen Flow Rate (L/min) 4 Oxygen Delivery Method Nasal Cannula Weight: 65.8 kg Body Mass Index (BMI) 22.8 Intake and Output for Last 24 Hours 07/12/19 07/13/19 07/14/19 23:59 23:59 23:59 Intake Total 2160 / 2420 260 / 260 Output Total 200 / 200 525 / 525 Balance 1960 / 2220 -265 / -265 General: Alert, Oriented x3, Cooperative, - - Mild to moderate respiratory distress on BiPAP therapy. Good synchrony. Appears older than stated age. HEENT: Atraumatic, PERRLA, EOMI, Normocephalic, - - No scleral icterus or injection noted Oral: No Gingival or Mucosal Lesions/ Ulcerations, Dry Mucosa Neck: Supple, No JVD, No Nodes, Trachea Midline Lungs: Diminished, Rhonchi - Right base, Wheezes Cardiovascular: Regular rate, Regular Rhythm, Normal S1, Normal S2, Murmur - Grade 2 out of 6 systolic ejection murmur at the right sternal border, No rub noted, No Gallop Abdomen: Bowel Sounds Present, Soft, Non Tender, Non-Distended Extremities: No cyanosis, No edema, Capillary Refill Less than 3 Seconds, Clubbing Skin: No rashes, No breakdown Musculoskeletal: No Tenderness to Palpation of Joints or Extremities Lymphatic: No Cervical, Supraclavicular, or Inguinal Adenopathy Neurological: Cranial nerves II-XII grossly intact, Neuro grossly intact, Motor Exam 5/5 strength throughout Psych/Mental Status: Alert and oriented to time, place, person, mood and affect Microbiology Past 72 Hours 07/13/19 11:45 Mucosa - Nasopharyngeal Respiratory Panel (PCR) - Final 07/13/19 11:45 Mucosa - Nasopharyngeal Influenza Types A,B Direct FA (STEVE) - Final Laboratory Results 07/13/19 10:40: WBC 12.9 H, RBC 4.19 L, Hgb 12.7 L, Hct 40.5, MCV 96.7 H, MCH 30.3, MCHC 31.4 L, RDW Std Deviation 42.1, RDW Coeff of Earline 11.8, Plt Count 282, MPV 9.4, Immature Gran % (Auto) 0.500, Neut % (Auto) 67.6, Lymph % (Auto) 21.8, [place] % (Auto) 9.0, Eos % (Auto) 0.6, Baso % (Auto) 0.5, Absolute Neuts (auto) 8.7 H, Absolute Lymphs (auto) 2.82, Nucleated RBC % 0 07/13/19 10:40: Sodium 133 L, Potassium 4.2, Chloride 95 L, Carbon Dioxide 34.0 H, Anion Gap 4 L, BUN 13, Creatinine 0.75, Estim Creat Clear Calc 55.83, Est GFR (MDRD) Af Amer 127, Est GFR (MDRD) Non-Af 105, BUN/Creatinine Ratio 17.3, Glucose 268 H, Calcium 9.1, Troponin I < 0.015 07/13/19 10:40: Lactic Acid 1.4 07/13/19 10:49: Specimen Type ART, Sample Site R Radial, pH 7.15 L*, Bicarbonate Actual 36.6 H, POC Total CO2 40, Base Excess 8 H, O2 Saturation 93 L, ABG pCO2 104.8 H*, ABG pO2 89, Mo Test NA, O2 Delivery Device NRB Mask, Liter Flow 12.0, Blood Gas Notified Whom ED , Blood Gas Notified Time 1047 07/13/19 10:55: Magnesium 2.0 07/13/19 10:55: Hemoglobin A1c 5.7 07/13/19 11:39: Specimen Type ART, Sample Site R Radial, pH 7.22 L, Bicarbonate Actual 35.6 H, POC Total CO2 38, Base Excess 8 H, O2 Saturation 99, O2 % 60, ABG pCO2 87.3 H*, ABG pO2 183 H, Mo Test NA, Respiration Rate 12, O2 Delivery Device Bi / C PAP, EPAP 8, IPAP 14, Blood Gas Notified Whom ED MD, Blood Gas Notified Time 11307/13/19 17:10: Specimen Type ART, Sample Site L Radial, pH 7.39, Bicarbonate Actual 30.5 H, POC Total CO2 32, Base Excess 6 H, O2 Saturation 90 L, O2 % 35, ABG pCO2 50.0 H, ABG pO2 61 L, Mo Test POS, Respiration Rate 12, O2 Delivery Device Bi / C PAP, EPAP 8, IPAP 14, Blood Gas Notified Whom HOSP MD, Blood Gas Notified Time 17007/14/19 06:35: WBC 4.2 L, RBC 3.15 L, Hgb 9.3 L, Hct 29.6 L, MCV 94.0, MCH 29.5, MCHC 31.4 L, RDW Std Deviation 40.7, RDW Coeff of Earline 11.9, Plt Count 198, MPV 9.5, Immature Gran % (Auto) 0.200, Neut % (Auto) 79.2 H, Lymph % (Auto) 14.7 L, [place] % (Auto) 5.9, Eos % (Auto) 0.0, Baso % (Auto) 0.0, Absolute Neuts (auto) 3.3, Absolute Lymphs (auto) 0.62 L, Nucleated RBC % 0 07/14/19 06:35: Sodium 134 L, Potassium 4.3, Chloride 100, Carbon Dioxide 32.0, Anion Gap 2 L, BUN 15, Creatinine 0.59 L, Estim Creat Clear Calc 51.39, Est GFR (MDRD) Af Amer 169, Est GFR (MDRD) Non-Af 139, BUN/Creatinine Ratio 25.4 H, Glucose 143 H, Calcium 8.6 Current Medications Acetaminophen (Tylenol) 650 mg PO Q6H PRN PRN PRN Reason: Non-cardiac pain (-05/15) Al Hydroxide/Mg Hydroxide (Mylanta Ii) 15 - 30 ml PO Q4H PRN PRN PRN Reason: INDIGESTION Albuterol Sulfate (Ventolin Aerosols) 2.5 mg INHALATION Q2H PRN PRN PRN Reason: dyspnea, wheezing Last Admin: 07/14/19 05:33 Dose: 2.5 mg Documented by: Albuterol/Ipratropium (Duoneb) 3 ml INHALATION Q4HWA.RT [facility] Last Admin: 07/14/19 06:41 Dose: 3 ml Documented by: Amlodipine Besylate (Norvasc) 5 mg PO DAILY [facility] Last Admin: 07/14/19 08:29 Dose: 5 mg Documented by: Dextrose (D50w Syringe) 0 gm IV X1 PRN; Protocol PRN Reason: Hypoglycemia Enoxaparin Sodium (Lovenox) 40 mg SC DAILY [facility] Last Admin: 07/14/19 08:29 Dose: 40 mg Documented by: Furosemide (Lasix) 40 mg PO DAILY [facility] Last Admin: 07/14/19 08:29 Dose: 40 mg Documented by: Glucagon () 1 mg IM .X1 PRN PRN Reason: Hypoglycemia Guaifenesin (Robitussin) 10 ml PO Q4H PRN PRN PRN Reason: COUGH Hydralazine HCl (Apresoline Iv) 10 mg IV Q4H PRN PRN PRN Reason: SBP > 160 Sodium Chloride () 500 mls @ 999 mls/hr IV .Q31M ONE Last Infusion: 07/13/19 11:58 Dose: Infused Documented by: Doxycycline Hyclate 100 mg/ (Dextrose) 260 mls @ 250 mls/hr IV Q12 [facility] Last Admin: 07/14/19 08:30 Dose: 250 mls/hr Documented by: Sodium Chloride () 250 mls @ 15 mls/hr IV .[id number] PRN PRN Reason: Saline Flush Losartan Potassium (Cozaar) 25 mg PO DAILY [facility] Last Admin: 07/14/19 08:29 Dose: 25 mg Documented by: Magnesium Hydroxide (Milk Of Magnesia) 30 ml PO DAILY PRN PRN Reason: Constipation Melatonin (Melatonin) 3 mg PO QHS PRN PRN PRN Reason: INSOMNIA Methylprednisolone (Solu-Medrol) 40 mg IV Q8 [facility] Last Admin: 07/14/19 05:17 Dose: 40 mg Documented by: Nitroglycerin (Nitrostat) 0.4 mg SUBLINGUAL Q5M PRN PRN Reason: CARDIAC/CHEST PAIN Ondansetron HCl (Zofran) 4 mg IV Q8H PRN PRN PRN Reason: NAUSEA/VOMITING Polyethylene Glycol (Miralax) 17 gm PO DAILY PRN PRN PRN Reason: Constipation Sodium Chloride () 10 - 40 ml IV UD PRN PRN Reason: SALINE FLUSH Throat Lozenges (Cepacol Sore Throat Lozenge) 1 lozenge MUCOUS MEM Q2H PRN PRN PRN Reason: Sore Throat/Cough Clinical Impression(s) from Imaging Studies Chest X-Ray 07/13/19 10:42 IMPRESSION: No interval change Electronically Signed: Eloy Bertrand MD at 11:17 EST , Service support , Assessment/Plan Active and Suspected Problems (Last Reviewed 07/08/19 @ 09:54 by José Antonio Curry MD) Acute on chronic respiratory failure with hypoxia and hypercapnia (Acute) COPD exacerbation (Acute) RECOMMENDATIONS: 1. Clarify speech recommendations 2. Continue empiric antibiotics pending culture data 3. Agree with IV steroids, bronchodilators. Possibly add mucolytic 4. BiPAP breaks as tolerated 5. Wean oxygen as tolerated IMPRESSIONS: 1. Acute on chronic combined respiratory failure Patient with significant acidosis noted on presentation and relatively increased AA gradient. Unclear if patient had an aspiration event as previous swallow study did show silent aspiration. Patient is on doxycycline, which is not the best antibiotic for this scenario. Patient is edentulous, so a chemical pneumonitis may be present more than acute infection. Continue BiPAP breaks as tolerated. Patient is on 4 L nasal cannula at baseline. Patient may benefit from high flow nasal cannula during the day, but would continue BiPAP with sleep. 2. Personal history of non-small cell lung cancer/right lower lobe masslike density From review of outside medical records through the 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 There has been no evidence of cancer recurrence according to the patient's pulmonary provider at [facility]. Patient was recently in rehab, and has not followed up for malignancy from my current available data. 3. 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 Can be transition to p.o. at the current dosing. Chest x-ray on presentation was not suggestive of flash pulmonary edema. 5. Pulmonary hypertension/hypertension/hyperlipidemia/advanced age/CODE STATUS Complicates care, management, recovery and prognosis. Physical therapy to work with patient as tolerated. Goals of care/CODE STATUS was discussed with the patient prior to intubation and he wished to remain full code. TIME:
--- NOTE | 2019-07-14 10:19 | PCM.PROGNOTE ---
Patient Problems: Active and Suspected Problems (Last Updated 07/14/19 @ 10:19 by Nasrin Vences MD) COPD exacerbation (Acute) Subjective: Chief complaint: Follow-up after admission for acute on chronic hypoxic and hypercapnic respiratory failure attributed to COPD exacerbation versus pneumonia which is probably aspiration pneumonia. Patient seen and examined. No acute events overnight. He stated that breathing is getting better, still having cough. He has been afebrile, blood pressure and heart rate are stable, pulse ox is 92% on 4 L. - Physical Exam Vitals/I&O's: Vital Signs Temp Pulse Resp BP Pulse Ox 98 F 91 18 111/58 L 92 07/14/19 04:00 07/14/19 09:00 07/14/19 09:00 07/14/19 09:00 07/14/19 09:00 Oxygen Flow Rate (L/min) 4 Oxygen Delivery Method Nasal Cannula Weight: 145 lb 1.027 oz Body Mass Index (BMI) 22.8 Intake and Output for Last 24 Hours 07/12/19 07/13/19 07/14/19 23:59 23:59 23:59 Intake Total 2160 / 2420 260 / 260 Output Total 200 / 200 525 / 525 Balance 1960 / 2220 -265 / -265 General: Alert, Oriented x3, Cooperative, - - Moderately short of breath. HEENT: Atraumatic, PERRLA, EOMI, Normocephalic Oral: Moist Mucosa, No Gingival or Mucosal Lesions/ Ulcerations Neck: Supple, No JVD, Negative Carotid Bruits, Trachea Midline, Thyroid Normal Size and Texture Lungs: No rales, Diminished, Rhonchi, Short of Breath, Wheezes, - - Decreased breath sounds bilateral, bilateral end expiratory wheezes, rhonchi. Cardiovascular: Regular rate, Regular Rhythm, Normal S1, Normal S2, Murmur - Systolic murmur. Abdomen: Bowel Sounds Present, Soft, Non Tender, Non-Distended, No Hepato-splenomegaly Extremities: No clubbing, No cyanosis, No edema Skin: No rashes, No breakdown Lymphatic: No Cervical, Supraclavicular, or Inguinal Adenopathy Neurological: Cranial nerves II-XII grossly intact, Motor Exam 5/5 strength throughout Psych/Mental Status: Normal Affect, Appropriate, Alert and oriented to time, place, person, mood and affect Microbiology Past 72 Hours 07/13/19 11:45 Mucosa - Nasopharyngeal Respiratory Panel (PCR) - Final 07/13/19 11:45 Mucosa - Nasopharyngeal Influenza Types A,B Direct FA (STEVE) - Final Laboratory Results 07/13/19 10:40: WBC 12.9 H, RBC 4.19 L, Hgb 12.7 L, Hct 40.5, MCV 96.7 H, MCH 30.3, MCHC 31.4 L, RDW Std Deviation 42.1, RDW Coeff of Earline 11.8, Plt Count 282, MPV 9.4, Immature Gran % (Auto) 0.500, Neut % (Auto) 67.6, Lymph % (Auto) 21.8, [place] % (Auto) 9.0, Eos % (Auto) 0.6, Baso % (Auto) 0.5, Absolute Neuts (auto) 8.7 H, Absolute Lymphs (auto) 2.82, Nucleated RBC % 0 07/13/19 10:40: Sodium 133 L, Potassium 4.2, Chloride 95 L, Carbon Dioxide 34.0 H, Anion Gap 4 L, BUN 13, Creatinine 0.75, Estim Creat Clear Calc 55.83, Est GFR (MDRD) Af Amer 127, Est GFR (MDRD) Non-Af 105, BUN/Creatinine Ratio 17.3, Glucose 268 H, Calcium 9.1, Troponin I < 0.015 07/13/19 10:40: Lactic Acid 1.4 07/13/19 10:49: Specimen Type ART, Sample Site R Radial, pH 7.15 L*, Bicarbonate Actual 36.6 H, POC Total CO2 40, Base Excess 8 H, O2 Saturation 93 L, ABG pCO2 104.8 H*, ABG pO2 89, Mo Test NA, O2 Delivery Device NRB Mask, Liter Flow 12.0, Blood Gas Notified Whom ED , Blood Gas Notified Time 1047 07/13/19 10:55: Magnesium 2.0 07/13/19 10:55: Hemoglobin A1c 5.7 07/13/19 11:39: Specimen Type ART, Sample Site R Radial, pH 7.22 L, Bicarbonate Actual 35.6 H, POC Total CO2 38, Base Excess 8 H, O2 Saturation 99, O2 % 60, ABG pCO2 87.3 H*, ABG pO2 183 H, Mo Test NA, Respiration Rate 12, O2 Delivery Device Bi / C PAP, EPAP 8, IPAP 14, Blood Gas Notified Whom ED , Blood Gas Notified Time 1137 07/13/19 17:10: Specimen Type ART, Sample Site L Radial, pH 7.39, Bicarbonate Actual 30.5 H, POC Total CO2 32, Base Excess 6 H, O2 Saturation 90 L, O2 % 35, ABG pCO2 50.0 H, ABG pO2 61 L, Mo Test POS, Respiration Rate 12, O2 Delivery Device Bi / C PAP, EPAP 8, IPAP 14, Blood Gas Notified Whom HOSP , Blood Gas Notified Time 1707 07/14/19 06:35: WBC 4.2 L, RBC 3.15 L, Hgb 9.3 L, Hct 29.6 L, MCV 94.0, MCH 29.5, MCHC 31.4 L, RDW Std Deviation 40.7, RDW Coeff of Earline 11.9, Plt Count 198, MPV 9.5, Immature Gran % (Auto) 0.200, Neut % (Auto) 79.2 H, Lymph % (Auto) 14.7 L, [place] % (Auto) 5.9, Eos % (Auto) 0.0, Baso % (Auto) 0.0, Absolute Neuts (auto) 3.3, Absolute Lymphs (auto) 0.62 L, Nucleated RBC % 0 07/14/19 06:35: Sodium 134 L, Potassium 4.3, Chloride 100, Carbon Dioxide 32.0, Anion Gap 2 L, BUN 15, Creatinine 0.59 L, Estim Creat Clear Calc 51.39, Est GFR (MDRD) Af Amer 169, Est GFR (MDRD) Non-Af 139, BUN/Creatinine Ratio 25.4 H, Glucose 143 H, Calcium 8.6 Clinical Impression(s) from Imaging Studies Chest X-Ray 07/13/19 10:42 IMPRESSION: No interval change Electronically Signed: Eloy Bertrand MD at 11:17 EST , Service support , Current Medications Acetaminophen (Tylenol) 650 mg PO Q6H PRN PRN PRN Reason: Non-cardiac pain (4-10/10) Al Hydroxide/Mg Hydroxide (Mylanta Ii) 15 - 30 ml PO Q4H PRN PRN PRN Reason: INDIGESTION Albuterol Sulfate (Ventolin Aerosols) 2.5 mg INHALATION Q2H PRN PRN PRN Reason: dyspnea, wheezing Last Admin: 07/14/19 05:33 Dose: 2.5 mg Documented by: Albuterol/Ipratropium (Duoneb) 3 ml INHALATION Q4HWA.RT [facility] Last Admin: 07/14/19 06:41 Dose: 3 ml Documented by: Amlodipine Besylate (Norvasc) 5 mg PO DAILY [facility] Last Admin: 07/14/19 08:29 Dose: 5 mg Documented by: Dextrose (D50w Syringe) 0 gm IV X1 PRN; Protocol PRN Reason: Hypoglycemia Enoxaparin Sodium (Lovenox) 40 mg SC DAILY [facility] Last Admin: 07/14/19 08:29 Dose: 40 mg Documented by: Furosemide (Lasix) 40 mg PO DAILY [facility] Last Admin: 07/14/19 08:29 Dose: 40 mg Documented by: Glucagon () 1 mg IM .X1 PRN PRN Reason: Hypoglycemia Guaifenesin (Robitussin) 10 ml PO Q4H PRN PRN PRN Reason: COUGH Hydralazine HCl (Apresoline Iv) 10 mg IV Q4H PRN PRN PRN Reason: SBP > 160 Sodium Chloride () 500 mls @ 999 mls/hr IV .Q31M ONE Last Infusion: 07/13/19 11:58 Dose: Infused Documented by: Sodium Chloride () 250 mls @ 15 mls/hr IV .[id number] PRN PRN Reason: Saline Flush Clindamycin Phosphate 600 mg/ (Dextrose) 54 mls @ 100 mls/hr IV Q8 [facility] Losartan Potassium (Cozaar) 25 mg PO DAILY [facility] Last Admin: 07/14/19 08:29 Dose: 25 mg Documented by: Magnesium Hydroxide (Milk Of Magnesia) 30 ml PO DAILY PRN PRN Reason: Constipation Melatonin (Melatonin) 3 mg PO QHS PRN PRN PRN Reason: INSOMNIA Methylprednisolone (Solu-Medrol) 40 mg IV Q8 [facility] Last Admin: 07/14/19 05:17 Dose: 40 mg Documented by: Nitroglycerin (Nitrostat) 0.4 mg SUBLINGUAL Q5M PRN PRN Reason: CARDIAC/CHEST PAIN Ondansetron HCl (Zofran) 4 mg IV Q8H PRN PRN PRN Reason: NAUSEA/VOMITING Polyethylene Glycol (Miralax) 17 gm PO DAILY PRN PRN PRN Reason: Constipation Sodium Chloride () 10 - 40 ml IV UD PRN PRN Reason: SALINE FLUSH Throat Lozenges (Cepacol Sore Throat Lozenge) 1 lozenge MUCOUS MEM Q2H PRN PRN PRN Reason: Sore Throat/Cough Medical Necessity - Tobacco Use Smoking Status: Former smoker Tobacco Use: Non-smoker Assessment/Plan All Active Problems (Last Updated 07/14/19 @ 10:19 by Nasrin Vences MD) COPD exacerbation (Acute) This is an 83 years old male patient presented to the emergency room because of shortness of breath and he was found to have acute on chronic hypoxic and hypercarbic respiratory failure attributed to COPD exacerbation versus pneumonia or possible chemical pneumonitis. #1 acute on chronic hypoxic and hypercapnic respiratory failure: Multifactorial secondary to COPD exacerbation and possible pneumonia/pneumonitis. Patient is on bronchodilators, IV antibiotics and IV steroids. Symptoms improved, pulse ox has been maintained on 4 L of oxygen. Repeat ABG from yesterday revealed pH of 7.39, PCO2 50 and PO2 of 61, PCO2 came down from 87 down to 50 and pH improved. Respiratory panel for viruses were negative. Nasal swab for influenza a and B is negative. Blood cultures pending. Plan to continue same treatment, transfer to PCU. #2 acute COPD exacerbation: He is on IV steroids, IV clindamycin and bronchodilators. Chest x-ray reviewed. Patient reported some improvement of his symptoms, remains on 4 L of oxygen. Plan as above. #3 probable aspiration pneumonia versus chemical pneumonitis: He is on IV clindamycin. He has been afebrile, white blood cell count is back to normal. Respiratory panel for viruses and nasal swab for influenza a and B were negative. Blood cultures pending. Plan to continue empiric IV antibiotics. 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 Heart rate has been around 100, blood pressure stable. #5 COPD/chronic respiratory failure: Patient is on home oxygen at 3 L at baseline. Plan as above. #6 hypertension: Blood pressure stable, continue Norvasc, losartan and IV hydralazine PRN. #7 chronic anemia: Baseline hemoglobin has been around 10 to 11 g/dL, it is 9.3 g/dL today. No source of obvious bleeding. Plan to monitor. #8 DVT prophylaxis: Subcu Lovenox. This note was generated with [employer] dictation software. It may contain incorrect words, spelling, and punctuation that were not noted in checking the note before signing. Code Visit Inpatient E&M: 55989 Subs Hosp L2
--- NOTE | 2019-07-14 10:58 | CASEMGMT ---
RN CM Assessment Presentation: COPD exacerbation; Hx of Lung CA, not active at this time. Intro role of CM and purpose of RN CM assessment Demographics, PCP and Pharmacy verified.Pt is awake and alert, able to participate. is also in room and participated in assessment. Pt is generally independent since discharge from [facility]. Pt has been participating in PT @ [place], until this illness started. Plans to resume on discharge. PCP: Dr. Valencia Specialists: Dr. Powers, Dr. Li (pulmonology @ [facility]), Dr. Alan Preferred [facility]acy: [facility] Insurance: [facility] [employer] Prescription Benefit: yes LNOK: , [facility] Living Arrangements: Pt lives in one story home with 2 steps into home. Pt is mostly independent with ADL's, however if assist is needed, can help. Transportation: drives DME: cane, walker, Side rails for toilet, grab bars in shower. -Oxygen through [employer]. Uses 4L NC daily, has concentrator and portability. -Trilogy at home. Pt had not used past few days. and pt will speak with Dr. Powers re: use on dc. DOROTEO Referral: evalute for Palliative Care Referral. DOROTEO Brink updated. HHC/SNF: [facility] 06/05/19 until . Dc'd home with Outpt PT @ [place], no Home Health. Patient DC goals: Home DC PLAN: undetermined. Anticipate home with resuming outpt PT @ [facility]. PT/OT evaluations pending. Payton CRAWFORD RN ACM
--- NOTE | 2019-07-14 11:33 | CASEMGMT ---
Social Work Palliative Care Screening Tool completed with a patient score of 7. SW met with pt and and presented to Palliative Care program and written information provided. Pt and do not want referral at this time but are aware that they can notify SW if they change their mind. Nathalie Benitez, CM
[2019-07-14] MEDS: 0.9% Saline Lock 10 ML Syringe IV (22:10)
[2019-07-15] VITALS (22 sets, daily range): BP systolic 95–131; BP diastolic 44–72; PULSE 79–120; RESP 12–26; TEMP 36.5–37; O2SAT 93–99
[2019-07-15] MEDS: Ipratropium/Albuterol Sulfate 3 ML AMPUL.NEB INHALATION ×5 (02:22→19:30)
[2019-07-15 05:33] LABS: Hematocrit 30.4 % (40-54); Hemoglobin 9.5 g/dL (13.0-16.5)
[2019-07-15] MEDS: 0.9% Saline Lock 10 ML Syringe IV ×4 (06:00→22:08)
--- NOTE | 2019-07-15 07:50 | PN_ITS ---
Patient Problems: Active and Suspected Problems (Last Updated 07/14/19 @ 10:19 by Nasrin Vences MD) COPD exacerbation (Acute) Subjective: Chief complaint: Follow-up after admission for acute on chronic hypoxic and hypercapnic respiratory failure attributed to COPD exacerbation versus pneumonia which is probably aspiration pneumonia. Patient seen and examined. No acute events overnight. This morning, he complained of increasing shortness of breath compared to last night. Still having some cough, no sputum. Denied chest pain. He remained at 4 L of oxygen, other vital signs are stable. - Physical Exam Vitals/I&O's: Vital Signs Temp Pulse Resp BP Pulse Ox 98.0 F 100 18 120/60 99 07/15/19 05:45 07/15/19 07:36 07/15/19 06:56 07/15/19 05:45 07/15/19 06:56 Oxygen Flow Rate (L/min) 4 Oxygen Delivery Method Nasal Cannula Weight: 141 lb 1.533 oz Body Mass Index (BMI) 22.8 Intake and Output for Last 24 Hours 07/13/19 07/14/19 07/15/19 23:59 23:59 23:59 Intake Total 2160 / 2420 822.50 / 822.50 60 / 60 Output Total 200 / 200 1175 / 1175 Balance 1960 / 2220 -352.50 / -352.50 60 / 60 General: Alert, Oriented x3, Cooperative, - - Moderately short of breath. HEENT: Atraumatic, PERRLA, EOMI, Normocephalic Oral: Moist Mucosa, No Gingival or Mucosal Lesions/ Ulcerations Neck: Supple, No JVD, Negative Carotid Bruits, Trachea Midline, Thyroid Normal Size and Texture Lungs: Diminished, Rhonchi, Short of Breath, Wheezes, - - Decreased breath sounds bilateral, scattered rhonchi, no wheezes. Cardiovascular: Regular rate, Regular Rhythm, Normal S1, Normal S2, Murmur - Systolic murmur. Abdomen: Bowel Sounds Present, Soft, Non Tender, Non-Distended, No Hepato- splenomegaly Extremities: No clubbing, No cyanosis, No edema Skin: No rashes, No breakdown Lymphatic: No Cervical, Supraclavicular, or Inguinal Adenopathy Neurological: Cranial nerves II-XII grossly intact, Motor Exam 5/5 strength throughout Psych/Mental Status: Normal Affect, Appropriate, Alert and oriented to time, place, person, mood and affect Microbiology Past 72 Hours 07/13/19 11:45 Mucosa - Nasopharyngeal Respiratory Panel (PCR) - Final 07/13/19 11:45 Mucosa - Nasopharyngeal Influenza Types A,B Direct FA (STEVE) - Final Laboratory Results 07/13/19 11:39: Specimen Type ART, Sample Site R Radial, pH 7.22 L, Bicarbonate Actual 35.6 H, POC Total CO2 38, Base Excess 8 H, O2 Saturation 99, O2 % 60, ABG pCO2 87.3 H*, ABG pO2 183 H, Mo Test NA, Respiration Rate 12, O2 Delivery Device Bi / C PAP, EPAP 8, IPAP 14, Blood Gas Notified Whom ED MD, Blood Gas Notified Time 1137 07/15/19 04:48: Hgb 9.5 L, Hct 30.4 L Current Medications Acetaminophen (Tylenol) 650 mg PO Q6H PRN PRN PRN Reason: Non-cardiac pain () Al Hydroxide/Mg Hydroxide (Mylanta Ii) 15 - 30 ml PO Q4H PRN PRN PRN Reason: INDIGESTION Albuterol Sulfate (Ventolin Aerosols) 2.5 mg INHALATION Q2H PRN PRN PRN Reason: dyspnea, wheezing Last Admin: 07/14/19 05:33 Dose: 2.5 mg Documented by: Albuterol/Ipratropium (Duoneb) 3 ml INHALATION Q4HWA.RT [facility] Last Admin: 07/15/19 06:56 Dose: 3 ml Documented by: Amlodipine Besylate (Norvasc) 5 mg PO DAILY [facility] Last Admin: 07/14/19 08:29 Dose: 5 mg Documented by: Dextrose (D50w Syringe) 0 gm IV X1 PRN; Protocol PRN Reason: Hypoglycemia Enoxaparin Sodium (Lovenox) 40 mg SC DAILY [facility] Last Admin: 07/14/19 08:29 Dose: 40 mg Documented by: Furosemide (Lasix) 40 mg PO DAILY [facility] Last Admin: 07/14/19 08:29 Dose: 40 mg Documented by: Glucagon () 1 mg IM .X1 PRN PRN Reason: Hypoglycemia Guaifenesin (Robitussin) 10 ml PO Q4H PRN PRN PRN Reason: COUGH Hydralazine HCl (Apresoline Iv) 10 mg IV Q4H PRN PRN PRN Reason: SBP > 160 Sodium Chloride () 500 mls @ 999 mls/hr IV .Q31M ONE Last Infusion: 07/13/19 11:58 Dose: Infused Documented by: Sodium Chloride () 250 mls @ 15 mls/hr IV .[id number] PRN PRN Reason: Saline Flush Last Infusion: 07/14/19 23:45 Dose: 0 mls/hr Documented by: Clindamycin Phosphate 600 mg/ (Dextrose) 54 mls @ 100 mls/hr IV Q8 [facility] Last Admin: 07/15/19 06:07 Dose: 100 mls/hr Documented by: Losartan Potassium (Cozaar) 25 mg PO DAILY [facility] Last Admin: 07/14/19 08:29 Dose: 25 mg Documented by: Magnesium Hydroxide (Milk Of Magnesia) 30 ml PO DAILY PRN PRN Reason: Constipation Melatonin (Melatonin) 3 mg PO QHS PRN PRN PRN Reason: INSOMNIA Methylprednisolone (Solu-Medrol) 40 mg IV Q8 [facility] Last Admin: 07/15/19 06:00 Dose: 40 mg Documented by: Nitroglycerin (Nitrostat) 0.4 mg SUBLINGUAL Q5M PRN PRN Reason: CARDIAC/CHEST PAIN Ondansetron HCl (Zofran) 4 mg IV Q8H PRN PRN PRN Reason: NAUSEA/VOMITING Polyethylene Glycol (Miralax) 17 gm PO DAILY PRN PRN PRN Reason: Constipation Sodium Chloride () 10 - 40 ml IV UD PRN PRN Reason: SALINE FLUSH Last Admin: 07/15/19 06:00 Dose: 20 ml Documented by: Throat Lozenges (Cepacol Sore Throat Lozenge) 1 lozenge MUCOUS MEM Q2H PRN PRN PRN Reason: Sore Throat/Cough Medical Necessity - Tobacco Use Smoking Status: Former smoker Tobacco Use: Non-smoker Assessment/Plan All Active Problems (Last Updated 07/14/19 @ 10:19 by Nasrin Vences MD) COPD exacerbation (Acute) This is an 83 years old male patient presented to the emergency room because of shortness of breath and he was found to have acute on chronic hypoxic and hypercarbic respiratory failure attributed to COPD exacerbation versus pneumonia or possible chemical pneumonitis. #1 acute on chronic hypoxic and hypercapnic respiratory failure: Multifactorial secondary to COPD exacerbation and possible pneumonia/pneumonitis. Remained on bronchodilators, IV antibiotics and IV steroids. This morning, complained of increasing shortness of breath although he remained on 4 L of oxygen. Respiratory panel for viruses were negative. Nasal swab for influenza a and B is negative. Blood cultures pending. Plan: Repeat chest x-ray this morning, Lasix IV 40 mg x 1. #2 acute COPD exacerbation: Remained on IV steroids, IV clindamycin and broncho dilators. Admission chest x-ray reviewed. Plan as above. #3 probable aspiration pneumonia versus chemical pneumonitis: He is on IV clindamycin. He has been afebrile, white blood cell count is back to normal. Respiratory panel for viruses and nasal swab for influenza a and B were negative. Blood cultures pending. Plan to continue empiric IV antibiotics. 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 Heart rate has been around 100, blood pressure stable. #5 COPD/chronic respiratory failure: Patient is on home oxygen at 3 L at baseline. Plan as above. #6 hypertension: Blood pressure stable, continue Norvasc, losartan and IV hydralazine PRN. #7 chronic anemia: Baseline hemoglobin has been around 10 to 11 g/dL, it is 9.5 g/dL today. No source of obvious bleeding. Plan to monitor. #8 DVT prophylaxis: Subcu Lovenox. This note was generated with [employer] dictation software. It may contain incorrect words, spelling, and punctuation that were not noted in checking the note before signing. Code Visit Inpatient E&M: 92671 Subs Hosp L2
[2019-07-15] MEDS: Furosemide 40 MG/4 ML Vial IV (07:53)
--- NOTE | 2019-07-15 08:54 | PN_ITS ---
Patient Problems: Active and Suspected Problems (Last Updated 07/14/19 @ 10:19 by Nasrin Vences MD) COPD exacerbation (Acute) Subjective: Patient did well overnight. Patient had reported a hot flash prior to my arrival and had estimated the onset at 7 AM. Patient states that he has had some palpitations. After I left to check telemetry and returned, patient states that this did improve with attempts at urination. Patient has been compliant with his modified diet. - Physical Exam Vitals/I&O's: Vital Signs Temp Pulse Resp BP Pulse Ox 36.8 C 92 24 H 109/56 L 96 07/15/19 07:45 07/15/19 07:45 07/15/19 07:45 07/15/19 07:45 07/15/19 07:45 Oxygen Flow Rate (L/min) 4 Oxygen Delivery Method Nasal Cannula Weight: 64 kg Body Mass Index (BMI) 22.8 Intake and Output for Last 24 Hours 07/13/19 07/14/19 07/15/19 23:59 23:59 23:59 Intake Total 2160 / 2420 822.50 / 822.50 114 / 114 Output Total 200 / 200 1175 / 1175 Balance 1960 / 2220 -352.50 / -352.50 114 / 114 General: Alert, Oriented x3, Cooperative, - - Appears stated age. Flushed on initial evaluation, but improved on repeat examination. HEENT: Atraumatic, PERRLA, EOMI, Normocephalic, - - No scleral icterus or inj ection noted Oral: Moist Mucosa, No Gingival or Mucosal Lesions/ Ulcerations Neck: Supple, No JVD, No Nodes, Trachea Midline Lungs: No rhonchi, No wheeze, No rales, Diminished, - - Symmetric expansion. Cardiovascular: Normal S1, Normal S2, Irregular Rate, Murmur - Grade 3 out of 6 systolic ejection murmur at the right sternal border, No rub noted, No Gallop Abdomen: Bowel Sounds Present, Soft, Non Tender, Non-Distended Extremities: No cyanosis, Capillary Refill Less than 3 Seconds, Clubbing Skin: No rashes, No breakdown Musculoskeletal: No Tenderness to Palpation of Joints or Extremities Lymphatic: No Cervical, Supraclavicular, or Inguinal Adenopathy Neurological: Cranial nerves II-XII grossly intact, Neuro grossly intact, Motor Exam 5/5 strength throughout Psych/Mental Status: Alert and oriented to time, place, person, mood and affect Microbiology Past 72 Hours 07/13/19 11:45 Mucosa - Nasopharyngeal Respiratory Panel (PCR) - Final 07/13/19 11:45 Mucosa - Nasopharyngeal Influenza Types A,B Direct FA (STEVE) - Final Laboratory Results 07/15/19 04:48: Hgb 9.5 L, Hct 30.4 L Current Medications Acetaminophen (Tylenol) 650 mg PO Q6H PRN PRN PRN Reason: Non-cardiac pain () Al Hydroxide/Mg Hydroxide (Mylanta Ii) 15 - 30 ml PO Q4H PRN PRN PRN Reason: INDIGESTION Albuterol Sulfate (Ventolin Aerosols) 2.5 mg INHALATION Q2H PRN PRN PRN Reason: dyspnea, wheezing Last Admin: 07/14/19 05:33 Dose: 2.5 mg Documented by: Albuterol/Ipratropium (Duoneb) 3 ml INHALATION Q4HWA.RT [facility] Last Admin: 07/15/19 06:56 Dose: 3 ml Documented by: Amlodipine Besylate (Norvasc) 5 mg PO DAILY [facility] Last Admin: 07/14/19 08:29 Dose: 5 mg Documented by: Dextrose (D50w Syringe) 0 gm IV X1 PRN; Protocol PRN Reason: Hypoglycemia Enoxaparin Sodium (Lovenox) 40 mg SC DAILY [facility] Last Admin: 07/14/19 08:29 Dose: 40 mg Documented by: Furosemide (Lasix) 40 mg PO DAILY [facility] Last Admin: 07/14/19 08:29 Dose: 40 mg Documented by: Glucagon () 1 mg IM .X1 PRN PRN Reason: Hypoglycemia Guaifenesin (Robitussin) 10 ml PO Q4H PRN PRN PRN Reason: COUGH Hydralazine HCl (Apresoline Iv) 10 mg IV Q4H PRN PRN PRN Reason: SBP > 160 Sodium Chloride () 500 mls @ 999 mls/hr IV .Q31M ONE Last Infusion: 07/13/19 11:58 Dose: Infused Documented by: Sodium Chloride () 250 mls @ 15 mls/hr IV .[id number] PRN PRN Reason: Saline Flush Last Infusion: 07/14/19 23:45 Dose: 0 mls/hr Documented by: Clindamycin Phosphate 600 mg/ (Dextrose) 54 mls @ 100 mls/hr IV Q8 [facility] Last Infusion: 07/15/19 06:40 Dose: Infused Documented by: Losartan Potassium (Cozaar) 25 mg PO DAILY [facility] Last Admin: 07/14/19 08:29 Dose: 25 mg Documented by: Magnesium Hydroxide (Milk Of Magnesia) 30 ml PO DAILY PRN PRN Reason: Constipation Melatonin (Melatonin) 3 mg PO QHS PRN PRN PRN Reason: INSOMNIA Methylprednisolone (Solu-Medrol) 40 mg IV Q8 [facility] Last Admin: 07/15/19 06:00 Dose: 40 mg Documented by: Nitroglycerin (Nitrostat) 0.4 mg SUBLINGUAL Q5M PRN PRN Reason: CARDIAC/CHEST PAIN Ondansetron HCl (Zofran) 4 mg IV Q8H PRN PRN PRN Reason: NAUSEA/VOMITING Polyethylene Glycol (Miralax) 17 gm PO DAILY PRN PRN PRN Reason: Constipation Sodium Chloride () 10 - 40 ml IV UD PRN PRN Reason: SALINE FLUSH Last Admin: 07/15/19 07:53 Dose: 10 ml Documented by: Throat Lozenges (Cepacol Sore Throat Lozenge) 1 lozenge MUCOUS MEM Q2H PRN PRN PRN Reason: Sore Throat/Cough Medical Necessity - Tobacco Use Smoking Status: Former smoker Tobacco Use: Non-smoker Assessment/Plan All Active Problems (Last Updated 07/14/19 @ 10:19 by Nasrin Vences MD) COPD exacerbation (Acute) RECOMMENDATIONS: 1. Continue diet per speech recommendations 2. Consider completion of antibiotics after 5 days 3. Likely okay to transition to prednisone for a 5-day burst from my perspective. Continue bronchodilators 4. BiPAP with sleep as tolerated 5. Wean oxygen as tolerated. Walking oximetry prior to discharge IMPRESSIONS: 1. Acute on chronic combined respiratory failure Patient with significant acidosis noted on presentation and relatively increased AA gradient. Unclear if patient had an aspiration event as previous swallow study did show silent aspiration. Patient currently on clindamycin and should be treated for 5 days. Patient is edentulous, so a chemical pneumonitis may be present more than acute infection. Continue BiPAP with sleep as tolerated. Patient is on 4 L nasal cannula at baseline. Clinical suspicion for aspiration being the primary etiology of patient's presentation. 2. 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 There has been no evidence of cancer recurrence according to the patient's pulmonary provider at [facility]. Patient was recently in rehab, and has not followed up for malignancy from my current available data. 3. 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 Can be transition to p.o. at the current dosing. Chest x-ray on presentation was not suggestive of flash pulmonary edema. 5. Pulmonary hypertension/hypertension/hyperlipidemia/advanced age/CODE STATUS Complicates care, management, recovery and prognosis. Physical therapy to work with patient as tolerated. Goals of care/CODE STATUS was discussed with the patient prior to intubation and he wished to remain full code. Code Visit Inpatient E&M: 28196 Subs Hosp L2
[2019-07-15] MEDS: Enoxaparin 40 MG/0.4 ML Syringe SC (09:11)
--- NOTE | 2019-07-15 09:25 | RAD_ITS ---
STUDY: X-RAY CHEST REASON FOR EXAM: Male, 83 years old. Shortness of breath. TECHNIQUE: Single AP portable view of the chest. COMPARISON: Comparison is made with prior study dated July 13, 2019. FINDINGS: EKG electrodes are seen. Hyperinflation. Persistent bibasilar infiltrates. Since prior study, there has been improved aeration of both lung bases. Residual blunting of both costophrenic angles slightly worse on the right side. Normal size heart. A left-sided dual-chamber pacemaker is seen. Normal mediastinum and rafia. Normal visualized pulmonary arteries. There is atherosclerotic tortuosity of the aortic arch and descending thoracic aorta. There are degenerative changes of the visualized thoracic spine. Normal visualized ribs, clavicles, and shoulders. There is no demonstrated abnormality of the visualized soft tissue structures of the upper abdomen. RAD/Chest 1 View (Portable) IMPRESSION: Improved aeration of both lung bases with residual changes worse on the right side. Blunting of both costophrenic angles. Electronically Signed: Caleb Hartman, at 12:33 EST , Service support ,
[2019-07-15] MEDS: Losartan Potassium 25 MG Tablet PO (09:53)
[2019-07-15] MEDS: amLODIPine 5 MG Tablet PO (09:53)
[2019-07-15] MEDS: predniSONE 20 MG Tablet 40 MG PO (11:46)
[2019-07-15] MEDS: Acetaminophen 325 MG Tablet 650 MG PO (12:39)
[2019-07-16] VITALS (19 sets, daily range): BP systolic 111–140; BP diastolic 57–74; PULSE 64–100; RESP 12–22; TEMP 36.4–36.8; O2SAT 94–99
[2019-07-16] MEDS: 0.9% Saline Lock 10 ML Syringe IV (05:28)
[2019-07-16] MEDS: Ipratropium/Albuterol Sulfate 3 ML AMPUL.NEB INHALATION ×4 (07:18→19:03)
--- NOTE | 2019-07-16 09:39 | PCM.PN.PUL ---
Patient Problems: Active and Suspected Problems (Last Updated 07/14/19 @ 10:19 by Nasrin Vences MD) COPD exacerbation (Acute) Subjective: Patient feels subjectively improved compared to yesterday. Patient still has significant dyspnea on exertion, but states his heart rate will go to 140 to 160 bpm. Patient's oxygen saturation has remained stable on 4 L nasal cannula. - Physical Exam Vitals/I&O's: Vital Signs Temp Pulse Resp BP Pulse Ox 36.5 C L 82 18 140/74 H 99 07/16/19 05:29 07/16/19 07:18 07/16/19 07:18 07/16/19 05:29 07/16/19 07:18 Oxygen Flow Rate (L/min) 5 Oxygen Delivery Method Nasal Cannula Weight: 63.4 kg Body Mass Index (BMI) 22.8 Intake and Output for Last 24 Hours 07/14/19 07/15/19 07/16/19 23:59 23:59 23:59 Intake Total 822.50 / 822.50 762 / 762 91.75 / 91.75 Output Total 1175 / 1175 1050 / 1050 200 / 200 Balance -352.50 / -352.50 -288 / -288 -108.25 / -108.25 General: Alert, Oriented x3, Cooperative, No apparent distress, - - Thin build. No conversational dyspnea. HEENT: Atraumatic, PERRLA, EOMI, Normocephalic, - - No scleral icterus or injection noted Oral: Moist Mucosa, No Gingival or Mucosal Lesions/ Ulcerations Neck: Supple, No JVD, No Nodes, Trachea Midline Lungs: No rhonchi, No wheeze, No rales, Diminished, - - Symmetric expansion. Cardiovascular: Normal S1, Normal S2, Irregular Rate, Murmur, No rub noted, No Gallop Abdomen: Bowel Sounds Present, Soft, Non Tender, Non-Distended Extremities: No cyanosis, Capillary Refill Less than 3 Seconds, Clubbing, Edema Skin: No rashes, No breakdown Musculoskeletal: No Tenderness to Palpation of Joints or Extremities, Muscle Wasting Lymphatic: No Cervical, Supraclavicular, or Inguinal Adenopathy Neurological: Cranial nerves II-XII grossly intact, Neuro grossly intact, Motor Exam 5/5 strength throughout Psych/Mental Status: Alert and oriented to time, place, person, mood and affect Microbiology Past 72 Hours 07/15/19 12:45 Sputum, Expectorated/Coughed Gram Stain - Final 07/13/19 10:40 Blood Culture (Wb) - Anticubital Left Blood Culture - Preliminary No growth in 48 hours. 07/13/19 10:55 Blood Culture (Wb) - Anticubital Right Blood Culture - Preliminary No growth in 48 hours. 07/13/19 11:45 Mucosa - Nasopharyngeal Respiratory Panel (PCR) - Final 07/13/19 11:45 Mucosa - Nasopharyngeal Influenza Types A,B Direct FA (STEVE) - Final Current Medications Acetaminophen (Tylenol) 650 mg PO Q6H PRN PRN PRN Reason: Non-cardiac pain () Last Admin: 07/15/19 12:39 Dose: 650 mg Documented by: Al Hydroxide/Mg Hydroxide (Mylanta Ii) 15 - 30 ml PO Q4H PRN PRN PRN Reason: INDIGESTION Albuterol Sulfate (Ventolin Aerosols) 2.5 mg INHALATION Q2H PRN PRN PRN Reason: dyspnea, wheezing Last Admin: 07/14/19 05:33 Dose: 2.5 mg Documented by: Albuterol/Ipratropium (Duoneb) 3 ml INHALATION Q4HWA.RT [facility] Last Admin: 07/16/19 07:18 Dose: 3 ml Documented by: Amlodipine Besylate (Norvasc) 5 mg PO DAILY [facility] Last Admin: 07/15/19 09:53 Dose: 5 mg Documented by: Dextrose (D50w Syringe) 0 gm IV X1 PRN; Protocol PRN Reason: Hypoglycemia Enoxaparin Sodium (Lovenox) 40 mg SC DAILY [facility] Last Admin: 07/15/19 09:11 Dose: 40 mg Documented by: Furosemide (Lasix) 40 mg PO DAILY [facility] Last Admin: 07/15/19 09:10 Dose: Not Given Documented by: Glucagon () 1 mg IM .X1 PRN PRN Reason: Hypoglycemia Guaifenesin (Robitussin) 10 ml PO Q4H PRN PRN PRN Reason: COUGH Hydralazine HCl (Apresoline Iv) 10 mg IV Q4H PRN PRN PRN Reason: SBP > 160 Sodium Chloride () 500 mls @ 999 mls/hr IV .Q31M ONE Last Infusion: 07/13/19 11:58 Dose: Infused Documented by: Sodium Chloride () 250 mls @ 15 mls/hr IV .[id number] PRN PRN Reason: Saline Flush Last Infusion: 07/16/19 06:01 Dose: 15 mls/hr Documented by: Clindamycin Phosphate 600 mg/ (Dextrose) 54 mls @ 100 mls/hr IV Q8 [facility] Last Infusion: 07/16/19 06:01 Dose: Infused Documented by: Losartan Potassium (Cozaar) 25 mg PO DAILY [facility] Last Admin: 07/15/19 09:53 Dose: 25 mg Documented by: Magnesium Hydroxide (Milk Of Magnesia) 30 ml PO DAILY PRN PRN Reason: Constipation Melatonin (Melatonin) 3 mg PO QHS PRN PRN PRN Reason: INSOMNIA Nitroglycerin (Nitrostat) 0.4 mg SUBLINGUAL Q5M PRN PRN Reason: CARDIAC/CHEST PAIN Ondansetron HCl (Zofran) 4 mg IV Q8H PRN PRN PRN Reason: NAUSEA/VOMITING Polyethylene Glycol (Miralax) 17 gm PO DAILY PRN PRN PRN Reason: Constipation Prednisone () 40 mg PO DAILY@0800 [facility] Last Admin: 07/15/19 11:46 Dose: 40 mg Documented by: Sodium Chloride () 10 - 40 ml IV UD PRN PRN Reason: SALINE FLUSH Last Admin: 07/16/19 05:28 Dose: 10 ml Documented by: Throat Lozenges (Cepacol Sore Throat Lozenge) 1 lozenge MUCOUS MEM Q2H PRN PRN PRN Reason: Sore Throat/Cough Clinical Impression(s) from Imaging Studies Chest X-Ray 07/15/19 09:25 IMPRESSION: Improved aeration of both lung bases with residual changes worse on the right side. Blunting of both costophrenic angles. Electronically Signed: Caleb Hartman, at 12:33 EST , Service support , Medical Necessity - Tobacco Use Smoking Status: Former smoker Tobacco Use: Non-smoker Assessment/Plan All Active Problems (Last Updated 07/14/19 @ 10:19 by Nasrin Vences MD) COPD exacerbation (Acute) RECOMMENDATIONS: 1. Continue diet per speech recommendations 2. Consider completion of antibiotics after 5 days 3. Likely okay to transition to prednisone for a 5-day burst from my perspective. Continue bronchodilators 4. Consider increasing rate control 5. Wean oxygen as tolerated. Walking oximetry prior to discharge IMPRESSIONS: 1. Acute on chronic combined respiratory failure Patient with significant acidosis noted on presentation and relatively increased AA gradient. Current chest imaging is suggestive of an aspiration event leading to current situation. Patient should continue BiPAP with sleep and 4 L nasal cannula at baseline. Patient is having significant tachycardia with any exertion and may benefit from improved rate control. Okay to use a beta-chucho from a pulmonary perspective if indicated. 2. 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 There has been no evidence of cancer recurrence according to the patient's pulmonary provider [facility]. Patient was recently in rehab, and has not followed up for malignancy from my current available data. 3. 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 Chest x-ray on presentation was not suggestive of flash pulmonary edema. 5. Pulmonary hypertension/hypertension/hyperlipidemia/advanced age/CODE STATUS Complicates care, management, recovery and prognosis. Physical therapy to work with patient as tolerated. Goals of care/CODE STATUS was discussed with the patient prior to intubation and he wished to remain full code. Code Visit Inpatient E&M: 93379 Subs Hosp L2
[2019-07-16] MEDS: Enoxaparin 40 MG/0.4 ML Syringe SC (10:33)
[2019-07-16] MEDS: amLODIPine 5 MG Tablet PO (10:33)
[2019-07-16] MEDS: Furosemide 40 MG Tablet PO (10:33)
[2019-07-16] MEDS: Losartan Potassium 25 MG Tablet PO (10:33)
[2019-07-16] MEDS: predniSONE 20 MG Tablet 40 MG PO (10:36)
--- NOTE | 2019-07-16 13:09 | PCM.PROGNOTE ---
Patient Problems: Active and Suspected Problems (Last Updated 07/14/19 @ 10:19 by Nasrin Vences MD) COPD exacerbation (Acute) Subjective: Chief complaint: Follow-up after admission for acute on chronic hypoxic and hypercapnic respiratory failure attributed to COPD exacerbation and aspiration pneumonia. Patient seen and examined. No acute events overnight. This morning, he mentioned that his breathing is getting better very slowly. But still getting more short of breath upon ambulation and his pulse ox goes down to low 80s upon ambulation. He remained on 4 L of oxygen, tachycardia upon ambulation, other vital signs are stable. - Physical Exam Vitals/I&O's: Vital Signs Temp Pulse Resp BP Pulse Ox 97.8 F 100 18 127/64 H 98 07/16/19 10:25 07/16/19 10:41 07/16/19 10:41 07/16/19 10:25 07/16/19 10:41 Oxygen Flow Rate (L/min) 4 Oxygen Delivery Method Nasal Cannula Weight: 139 lb 12.369 oz Body Mass Index (BMI) 22.8 Intake and Output for Last 24 Hours 07/14/19 07/15/19 07/16/19 23:59 23:59 23:59 Intake Total 822.50 / 822.50 762 / 762 331.75 / 331.75 Output Total 1175 / 1175 1050 / 1050 400 / 400 Balance -352.50 / -352.50 -288 / -288 -68.25 / -68.25 General: Alert, Oriented x3, Cooperative, No apparent distress, - - Minimally short of breath. HEENT: Atraumatic, PERRLA, EOMI, Normocephalic Oral: Moist Mucosa, No Gingival or Mucosal Lesions/ Ulcerations Neck: Supple, No JVD, Negative Carotid Bruits, Trachea Midline, Thyroid Normal Size and Texture Lungs: No wheeze, Diminished, Rales, Rhonchi, - - Decreased breath sounds bilateral, bilateral rhonchi, Rales. Cardiovascular: Regular rate, Regular Rhythm, Normal S1, Normal S2, PMI Normal Abdomen: Bowel Sounds Present, Soft, Non Tender, Non-Distended, No Hepato-splenomegaly Extremities: No clubbing, No cyanosis, No edema Skin: No rashes, No breakdown Lymphatic: No Cervical, Supraclavicular, or Inguinal Adenopathy Neurological: Cranial nerves II-XII grossly intact, Neuro grossly intact Psych/Mental Status: Normal Affect, Appropriate, Alert and oriented to time, place, person, mood and affect Microbiology Past 72 Hours 07/15/19 12:45 Sputum, Expectorated/Coughed Gram Stain - Final 07/15/19 12:45 Sputum, Expectorated/Coughed Respiratory Culture - Preliminary Beta hemolytic organism 07/13/19 10:40 Blood Culture (Wb) - Anticubital Left Blood Culture - Preliminary No growth in 48 hours. 07/13/19 10:55 Blood Culture (Wb) - Anticubital Right Blood Culture - Preliminary No growth in 48 hours. 07/13/19 11:45 Mucosa - Nasopharyngeal Respiratory Panel (PCR) - Final 07/13/19 11:45 Mucosa - Nasopharyngeal Influenza Types A,B Direct FA (STEVE) - Final Current Medications Acetaminophen (Tylenol) 650 mg PO Q6H PRN PRN PRN Reason: Non-cardiac pain (-05/15) Last Admin: 07/15/19 12:39 Dose: 650 mg Documented by: Al Hydroxide/Mg Hydroxide (Mylanta Ii) 15 - 30 ml PO Q4H PRN PRN PRN Reason: INDIGESTION Albuterol Sulfate (Ventolin Aerosols) 2.5 mg INHALATION Q2H PRN PRN PRN Reason: dyspnea, wheezing Last Admin: 07/14/19 05:33 Dose: 2.5 mg Documented by: Albuterol/Ipratropium (Duoneb) 3 ml INHALATION Q4HWA.RT [facility] Last Admin: 07/16/19 10:41 Dose: 3 ml Documented by: Amlodipine Besylate (Norvasc) 5 mg PO DAILY [facility] Last Admin: 07/16/19 10:33 Dose: 5 mg Documented by: Enoxaparin Sodium (Lovenox) 40 mg SC DAILY [facility] Last Admin: 07/16/19 10:33 Dose: 40 mg Documented by: Furosemide (Lasix) 40 mg PO DAILY [facility] Last Admin: 07/16/19 10:33 Dose: 40 mg Documented by: Glucagon () 1 mg IM .X1 PRN PRN Reason: Hypoglycemia Guaifenesin (Robitussin) 10 ml PO Q4H PRN PRN PRN Reason: COUGH Hydralazine HCl (Apresoline Iv) 10 mg IV Q4H PRN PRN PRN Reason: SBP > 160 Sodium Chloride () 500 mls @ 999 mls/hr IV .Q31M ONE Last Infusion: 07/13/19 11:58 Dose: Infused Documented by: Sodium Chloride () 250 mls @ 15 mls/hr IV .[id number] PRN PRN Reason: Saline Flush Last Infusion: 07/16/19 06:01 Dose: 15 mls/hr Documented by: Clindamycin Phosphate 600 mg/ (Dextrose) 54 mls @ 100 mls/hr IV Q8 [facility] Last Infusion: 07/16/19 06:01 Dose: Infused Documented by: Dextrose (Dextrose 10%-Water) 250 mls @ 999 mls/hr IV X1 PRN; Protocol PRN Reason: HYPOGLYCEMIA Losartan Potassium (Cozaar) 25 mg PO DAILY [facility] Last Admin: 07/16/19 10:33 Dose: 25 mg Documented by: Magnesium Hydroxide (Milk Of Magnesia) 30 ml PO DAILY PRN PRN Reason: Constipation Melatonin (Melatonin) 3 mg PO QHS PRN PRN PRN Reason: INSOMNIA Metoprolol Tartrate (Lopressor (Beta Kathi)) 12.5 mg PO BID [facility] Nitroglycerin (Nitrostat) 0.4 mg SUBLINGUAL Q5M PRN PRN Reason: CARDIAC/CHEST PAIN Ondansetron HCl (Zofran) 4 mg IV Q8H PRN PRN PRN Reason: NAUSEA/VOMITING Polyethylene Glycol (Miralax) 17 gm PO DAILY PRN PRN PRN Reason: Constipation Prednisone () 40 mg PO DAILY@0800 [facility] Last Admin: 07/16/19 10:36 Dose: 40 mg Documented by: Sodium Chloride () 10 - 40 ml IV UD PRN PRN Reason: SALINE FLUSH Last Admin: 07/16/19 05:28 Dose: 10 ml Documented by: Throat Lozenges (Cepacol Sore Throat Lozenge) 1 lozenge MUCOUS MEM Q2H PRN PRN PRN Reason: Sore Throat/Cough Medical Necessity - Tobacco Use Smoking Status: Former smoker Tobacco Use: Non-smoker Assessment/Plan All Active Problems (Last Updated 07/14/19 @ 10:19 by Nasrin Vences MD) COPD exacerbation (Acute) This is an 83 years old male patient presented to the emergency room because of shortness of breath and he was found to have acute on chronic hypoxic and hypercarbic respiratory failure attributed to COPD exacerbation versus pneumonia or possible chemical pneumonitis. #1 acute on chronic hypoxic and hypercapnic respiratory failure: Multifactorial secondary to COPD exacerbation and aspiration pneumonia. He is on IV clindamycin, prednisone and bronchodilators. Symptoms started to improve and he remained on 4 L of oxygen. Pulse ox is dropping upon ambulation and patient becomes tachycardic. Respiratory panel for viruses were negative. Nasal swab for influenza a and B is negative. Blood culture showed no growth in 48 hours. Sputum culture revealed beta-hemolytic organism, final is pending. Plan to continue same treatment, start metoprolol 12.5 mg p.o. twice daily #2 acute COPD exacerbation: Remained on p.o. prednisone, IV clindamycin and bronchodilators. Plan as above. #3 Aspiration pneumonia: He is on IV clindamycin. He has been afebrile, white blood cell count is back to normal. Respiratory panel for viruses and nasal swab for influenza a and B were negative. Blood cultures showed no growth in 48 hours. Sputum culture revealed beta-hemolytic organism, final is pending. Plan to continue same treatment for now. 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 Heart rate has been around 100, but goes up to 120s with ambulation, blood pressure stable. Plan to start metoprolol 12.5 mg p.o. twice daily as above. #5 COPD/chronic respiratory failure: Patient is on home oxygen at 3 L at baseline. Plan as above. #6 hypertension: Blood pressure stable, continue Norvasc, losartan and IV hydralazine PRN. #7 chronic anemia: Baseline hemoglobin has been around 10 to 11 g/dL, it is 9.5 g/dL yesterday. No source of obvious bleeding. Plan to monitor. #8 DVT prophylaxis: Subcu Lovenox. This note was generated with [employer] dictation software. It may contain incorrect words, spelling, and punctuation that were not noted in checking the note before signing. Code Visit Inpatient E&M: [id number] Subs Hosp L2
--- NOTE | 2019-07-16 13:49 | CASEMGMT ---
Pt provided with list of local [facility] agencies with MCR star ratings at this time. This RN CM will check back later to see if pt/ have made a decision, pt voices understanding. Soheila NEELY CM
[2019-07-16] MEDS: Metoprolol Tartrate 25 MG Tablet 12.5 MG PO ×2 (13:59→21:36)
[2019-07-17] VITALS (13 sets, daily range): BP systolic 112–148; BP diastolic 51–77; PULSE 63–98; RESP 12–22; TEMP 36.7–37; O2SAT 4–100
[2019-07-17] MEDS: Ipratropium/Albuterol Sulfate 3 ML AMPUL.NEB INHALATION ×3 (07:03→14:58)
[2019-07-17] MEDS: predniSONE 20 MG Tablet 40 MG PO (07:29)
--- NOTE | 2019-07-17 08:53 | PN_ITS ---
Patient Problems: Active and Suspected Problems (Last Updated 07/14/19 @ 10:19 by Nasrin Vences MD) COPD exacerbation (Acute) Subjective: Patient did well overnight. No acute issues were reported. Patient did report exercise tolerance improved following addition of Lopressor. Patient also reports that he has had an increased cough productive of clear to white sputum overnight and feels this is helping his condition. - Physical Exam Vitals/I&O's: Vital Signs Temp Pulse Resp BP Pulse Ox 36.7 C 79 20 H 148/77 H 93 07/17/19 03:00 07/17/19 06:50 07/17/19 03:00 07/17/19 03:00 07/17/19 03:00 Oxygen Flow Rate (L/min) 4 Oxygen Delivery Method Nasal Cannula Weight: 64 kg Body Mass Index (BMI) 22.8 Intake and Output for Last 24 Hours 07/15/19 07/16/19 07/17/19 23:59 23:59 23:59 Intake Total 762 / 762 924.00 / 924.00 239.5 / 239.5 Output Total 1050 / 1050 1450 / 1450 375 / 375 Balance -288 / -288 -526.00 / -526.00 -135.5 / -135.5 General: Alert, Oriented x3, Cooperative, No apparent distress, - - Thin build. Speaking in full sentences. HEENT: Atraumatic, PERRLA, EOMI, Normocephalic, - - Slight temporal wasting Oral: Moist Mucosa, No Gingival or Mucosal Lesions/ Ulcerations Neck: Supple, No JVD, No Nodes, Trachea Midline Lungs: No wheeze, No rales, Diminished, Rhonchi - Improved with coughing Cardiovascular: Irregular Rate, Murmur - Unchanged, No rub noted, No Gallop Abdomen: Bowel Sounds Present, Soft, Non Tender, Non-Distended Extremities: No cyanosis, No edema, Capillary Refill Less than 3 Seconds, Clubbing Skin: No rashes, No breakdown Musculoskeletal: No Tenderness to Palpation of Joints or Extremities, Muscle Wasting Lymphatic: No Cervical, Supraclavicular, or Inguinal Adenopathy Neurological: Cranial nerves II-XII grossly intact, Neuro grossly intact, Motor Exam 5/5 strength throughout Psych/Mental Status: Alert and oriented to time, place, person, mood and affect Microbiology Past 72 Hours 07/15/19 12:45 Sputum, Expectorated/Coughed Gram Stain - Final 07/15/19 12:45 Sputum, Expectorated/Coughed Respiratory Culture - Preliminary Beta hemolytic organism 07/13/19 10:40 Blood Culture (Wb) - Anticubital Left Blood Culture - Preliminary No growth in 48 hours. 07/13/19 10:55 Blood Culture (Wb) - Anticubital Right Blood Culture - Preliminary No growth in 48 hours. Current Medications Acetaminophen (Tylenol) 650 mg PO Q6H PRN PRN PRN Reason: Non-cardiac pain (-05/15) Last Admin: 07/15/19 12:39 Dose: 650 mg Documented by: Al Hydroxide/Mg Hydroxide (Mylanta Ii) 15 - 30 ml PO Q4H PRN PRN PRN Reason: INDIGESTION Albuterol Sulfate (Ventolin Aerosols) 2.5 mg INHALATION Q2H PRN PRN PRN Reason: dyspnea, wheezing Last Admin: 07/14/19 05:33 Dose: 2.5 mg Documented by: Albuterol/Ipratropium (Duoneb) 3 ml INHALATION Q4HWA.RT [facility] Last Admin: 07/17/19 07:03 Dose: 3 ml Documented by: Amlodipine Besylate (Norvasc) 5 mg PO DAILY [facility] Last Admin: 07/16/19 10:33 Dose: 5 mg Documented by: Enoxaparin Sodium (Lovenox) 40 mg SC DAILY [facility] Last Admin: 07/16/19 10:33 Dose: 40 mg Documented by: Furosemide (Lasix) 40 mg PO DAILY [facility] Last Admin: 07/16/19 10:33 Dose: 40 mg Documented by: Glucagon () 1 mg IM .X1 PRN PRN Reason: Hypoglycemia Guaifenesin (Robitussin) 10 ml PO Q4H PRN PRN PRN Reason: COUGH Hydralazine HCl (Apresoline Iv) 10 mg IV Q4H PRN PRN PRN Reason: SBP > 160 Sodium Chloride () 500 mls @ 999 mls/hr IV .Q31M ONE Last Infusion: 07/13/19 11:58 Dose: Infused Documented by: Sodium Chloride () 250 mls @ 15 mls/hr IV .[id number] PRN PRN Reason: Saline Flush Last Infusion: 07/17/19 05:46 Dose: Infused Documented by: Clindamycin Phosphate 600 mg/ (Dextrose) 54 mls @ 100 mls/hr IV Q8 [facility] Last Infusion: 07/17/19 05:45 Dose: Infused Documented by: Dextrose (Dextrose 10%-Water) 250 mls @ 999 mls/hr IV X1 PRN; Protocol PRN Reason: HYPOGLYCEMIA Losartan Potassium (Cozaar) 25 mg PO DAILY [facility] Last Admin: 07/16/19 10:33 Dose: 25 mg Documented by: Magnesium Hydroxide (Milk Of Magnesia) 30 ml PO DAILY PRN PRN Reason: Constipation Melatonin (Melatonin) 3 mg PO QHS PRN PRN PRN Reason: INSOMNIA Metoprolol Tartrate (Lopressor (Beta Kathi)) 12.5 mg PO BID [facility] Last Admin: 07/16/19 21:36 Dose: 12.5 mg Documented by: Nitroglycerin (Nitrostat) 0.4 mg SUBLINGUAL Q5M PRN PRN Reason: CARDIAC/CHEST PAIN Ondansetron HCl (Zofran) 4 mg IV Q8H PRN PRN PRN Reason: NAUSEA/VOMITING Polyethylene Glycol (Miralax) 17 gm PO DAILY PRN PRN PRN Reason: Constipation Prednisone () 40 mg PO DAILY@0800 [facility] Last Admin: 07/17/19 07:29 Dose: 40 mg Documented by: Sodium Chloride () 10 - 40 ml IV UD PRN PRN Reason: SALINE FLUSH Last Admin: 07/16/19 05:28 Dose: 10 ml Documented by: Throat Lozenges (Cepacol Sore Throat Lozenge) 1 lozenge MUCOUS MEM Q2H PRN PRN PRN Reason: Sore Throat/Cough Medical Necessity - Tobacco Use Smoking Status: Former smoker Tobacco Use: Non-smoker Assessment/Plan All Active Problems (Last Updated 07/14/19 @ 10:19 by Nasrin Vences MD) COPD exacerbation (Acute) RECOMMENDATIONS: 1. Continue modified diet per speech recommendations 2. Consider completion of antibiotics after 5 days 3. Likely okay to transition to prednisone for a 5-day burst from my perspective. Continue bronchodilators 4. If patient's heart rate continues to go above 120 bpm, okay to titrate up on Lopressor from my perspective 5. Wean oxygen as tolerated. Walking oximetry prior to discharge 6. Okay to discharge from a pulmonary perspective if requires less than 6 L/min with baseline ambulation IMPRESSIONS: 1. Acute on chronic combined respiratory failure Patient with significant acidosis noted on presentation and relatively increased AA gradient. Current chest imaging is suggestive of an aspiration roxann nt leading to current situation. Patient should continue BiPAP with sleep and 4 L nasal cannula at baseline. Patient is reporting improved exercise tolerance compared to yesterday with addition of rate control. Respiratory status appears to be stable. Productive cough would be expected and does not indicate worsening respiratory status requiring additional hospitalization. 2. 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 There has been no evidence of cancer recurrence according to the patient's pulmonary provider at [facility]. Patient was recently in r ehab, and has not followed up for malignancy from my current available data. 3. 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 Chest x-ray on presentation was not suggestive of flash pulmonary edema initially. 5. Pulmonary hypertension/hypertension/hyperlipidemia/advanced age/CODE STATUS Complicates care, management, recovery and prognosis. Physical therapy to work with patient as tolerated. Goals of care/CODE STATUS was discussed with the patient prior to intubation and he wished to remain full code. Code Visit Inpatient E&M: 17912 [facility] L2
[2019-07-17] MEDS: Metoprolol Tartrate 25 MG Tablet 12.5 MG PO (09:43)
[2019-07-17] MEDS: Enoxaparin 40 MG/0.4 ML Syringe SC (09:43)
[2019-07-17] MEDS: amLODIPine 5 MG Tablet PO (09:44)
[2019-07-17] MEDS: Losartan Potassium 25 MG Tablet PO (09:44)
[2019-07-17] MEDS: Furosemide 40 MG Tablet PO (09:44)
--- NOTE | 2019-07-17 10:38 | PCM.DC ---
- Discharge Diagnoses Current Active Problems: Current Active and Chronic Problems (Last Updated 07/14/19 @ 10:19 by Nasrin Vences MD) COPD exacerbation (Acute) You will use the following diet at home:: Cardiac Your food should be the consistency of: Puree Your liquids should be the consistency of: [place] Thick Discharge Activity: Return to Normal Activity Weight Bearing Status: Weight bearing as tolerated Call your doctor if you observe: Fever of 101 or Higher, Shortness of breath, Dizziness, Fainting spells, Chest pain, Increased palpitations (irregular heartbeat), Uncontrolled pain Allergies/Adverse Reactions: Allergies ampicillin Allergy (Verified 07/08/19 09:50) Anaphylaxis azithromycin Allergy (Verified 07/13/19 10:45) Rash codeine Allergy (Verified 07/08/19 09:50) Rash penicillin G Allergy (Verified 07/08/19 09:50) Rash Sulfa (Sulfonamide Antibiotics) Allergy (Verified 07/08/19 09:50) Rash sulfamethoxazole [From Bactrim] Allergy (Verified 07/13/19 10:45) Rash trimethoprim [From Bactrim] Allergy (Verified 07/13/19 10:45) Rash Medications to take at Discharge Cholecalciferol (VIT D3) [Vitamin D3] 1,000 unit PO DAILY 06/25/16 Polyethylene Glycol 3350 [Miralax] 17 gm PO DAILY PRN PRN 09/27/16 Acetaminophen [Tylenol Tablet] 650 mg PO Q6H PRN PRN #0 tab 10/24/16 Amlodipine [Norvasc] 5 mg PO DAILY #30 tab 06/12/17 Losartan Potassium 25 mg PO DAILY #0 06/12/17 Albuterol IH (ProAir) [Proair Hfa] 2 puff INHALATION Q4H PRN PRN #0 11/01/18 Furosemide [Lasix] 40 mg PO DAILY #30 tab 11/01/18 umeclidinium 62.5 mcg-vilanterol 25 mcg/actuation powdr for inhalation 1 inh INHALATION Q24H 07/08/19 Albuterol Aerosols [Ventolin Aerosols] 2.5 mg INHALATION Q4H PRN PRN #90 vial.neb. 07/17/19 Clindamycin [Cleocin] 450 mg PO TID 3 Days #27 cap 07/17/19 Ipratropium/Albuterol Sulfate [Duoneb] 3 ml INHALATION Q8 #90 ampul.neb 07/17/19 Metoprolol Tartrate [Lopressor (beta chucho)] 12.5 mg PO BID #90 tab 07/17/19 Prednisone 40 mg PO DAILY #30 tab 07/17/19 The following prescriptions were given: Clindamycin [Cleocin] 450 mg PO TID 3 Days #27 cap Transmission Status: Pending to [facility]30 Ipratropium/Albuterol Sulfate [Duoneb] 3 ml INHALATION Q8 #90 ampul.neb Transmission Status: Pending to [facility] #30 Metoprolol Tartrate [Lopressor (beta chucho)] 12.5 mg PO BID #90 tab Transmission Status: Pending to [facility] #30 Prednisone 40 mg PO DAILY #30 tab Transmission Status: Pending to [facility] #30 Albuterol Aerosols [Ventolin Aerosols] 2.5 mg INHALATION Q4H PRN PRN #90 vial.neb. PRN Reason: dyspnea, wheezing Transmission Status: Pending to [facility] #30 Primary Care Physician: Misael Valencia MD [Primary Care Provider] - Please follow up with your Primary Care Physician in: 1 week. Test Results: Test results from this visit will be discussed in further detail at your follow-up appointment, if applicable. Please Follow Up With: Misael Valencia MD Please Follow Up With: Anoop Powers MD When: 2 weeks.
--- NOTE | 2019-07-17 11:23 | PHA.DC.MC ---
Pharmacy Service has performed discharge medication reconciliation and counseling for this patient. The patient's discharge medication list was reviewed for discrepancies and discrepancies were resolved. The patient was counseled on the following discharge medications and changes in medications for homegoing were reviewed. 1. METOPROLOL TARTRATE 2. PREDNISONE 3. CLINDAMYCIN The Reason for Use, instructions for use, and potential side effects were reviewed for all new medications. The patient's questions regarding all of their medications were answered. The patient & patient's were able to verbally demonstrate an understanding of their discharge medications. Home Medications Cholecalciferol (VIT D3) [Vitamin D3] 1,000 unit PO DAILY 06/25/16 Polyethylene Glycol 3350 [Miralax] 17 gm PO DAILY PRN PRN 09/27/16 Acetaminophen [Tylenol Tablet] 650 mg PO Q6H PRN PRN #0 tab 10/24/16 Amlodipine [Norvasc] 5 mg PO DAILY #30 tab 06/12/17 Losartan Potassium 25 mg PO DAILY #0 06/12/17 Albuterol IH (ProAir) [Proair Hfa] 2 puff INHALATION Q4H PRN PRN #0 11/01/18 Furosemide [Lasix] 40 mg PO DAILY #30 tab 11/01/18 umeclidinium 62.5 mcg-vilanterol 25 mcg/actuation powdr for inhalation 1 inh INHALATION Q24H 07/08/19 Albuterol Aerosols [Ventolin Aerosols] 2.5 mg INHALATION Q4H PRN PRN #90 vial.neb. 07/17/19 Clindamycin [Cleocin] 450 mg PO TID 3 Days #27 cap 07/17/19 Ipratropium/Albuterol Sulfate [Duoneb] 3 ml INHALATION Q8 #90 ampul.neb 07/17/19 Metoprolol Tartrate [Lopressor (beta chucho)] 12.5 mg PO BID #90 tab 07/17/19 Prednisone 40 mg PO DAILY #30 tab 07/17/19
--- NOTE | 2019-07-17 12:43 | CASEMGMT ---
This RN CM to room to see which [facility] pt/ decided they would like at this time. Pt/ had been provided list previously. Per , initially she states that they do not need [facility] to come out and clean house and do the shopping but this RN CM advised her that they would not be doing that that it would be a nurse, PT/OT and speech therapy. Pt/ voice understanding at this time. states that [facility] does HHC and this RN CM advised that will check and pt/ state they would like [facility] second, if needed. Call to Katelynn at [facility] and she states that they only offer therapy [facility] but that [facility] is who they are contracted with to complete the residential. Call to [facility] and they state to send the referral/order like normal with a note that [facility] therapy will be completing that part. This RN CM to room to update pt/ and they state that they would just prefer to go with [facility] at this time. Order placed for SN, PT/OT, speech therapy at this time. Call to Nichole at [facility] and she states that they can take pt at this time. Call to [facility] to clarify pt current home oxygen order,as pt is requiring more oxygen then he says he's normally on. Per Nichole at [facility], pt's current order is for 4 liters with exertion. Pt qualifies for 4liters at rest at this time and needs 7liters with exertion at this time. New order with qualifying testing faxed to [facility] at this time and Nichole is aware that pt is being discharged today and he will need an e-tank for discharge, voices understanding at this time. Pt is awaiting e-tank at this time. Soheila RN CM
--- NOTE | 2019-07-17 12:48 | PCM.DC.SUM ---
Discharge Date and Diagnosis - Problem List Patient Problems: Active and Suspected Problems (Last Updated 07/14/19 @ 10:19 by Nasrin Vences MD) COPD exacerbation (Acute) Date of Admission: 07/13/19 Date of Discharge: 07/17/19 - Primary Discharge Diagnosis Active and Suspected Problems (Last Updated 07/14/19 @ 10:19 by Nasrin Vences MD) #1 acute on chronic hypoxic and hypercapnic respiratory failure. #2 acute COPD exacerbation. #3 aspiration pneumonia. - Secondary Discharge Diagnosis Chronic Problems (Last Updated 07/14/19 @ 10:19 by Nasrin Vences MD) Diastolic dysfunction (Chronic) 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) Essential hypertension (Chronic) Paroxysmal atrial flutter (Chronic) Non-rheumatic tricuspid valve insufficiency (Chronic) Aortic valve stenosis, nonrheumatic (Chronic) 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) 06/11/17 Chronic respiratory failure (Chronic) COPD (chronic obstructive pulmonary disease) (Chronic) Conduction disorder of the heart (Chronic) Pulmonary hypertension (Chronic) GERD (gastroesophageal reflux disease) (Chronic) Bullous emphysema (Chronic) Hospital Course and Treatment Imaging Results: Clinical Impression(s) from Imaging Studies Chest X-Ray 07/13/19 10:42 IMPRESSION: No interval change Electronically Signed: Eloy Bertrand MD at 11:17 EST , Service support , Chest X-Ray 07/15/19 09:25 IMPRESSION: Improved aeration of both lung bases with residual changes worse on the right side. Blunting of both costophrenic angles. Electronically Signed: Caleb Hartman, at 12:33 EST , Service support , Operations: None Procedures: EKG Summary of Care Provided: Patient seen and examined on the day of discharge and appeared to be stable to be discharged home. He is feeling better and he ambulated, pulse ox was 87% on 6 L and heart rate remained below 100. He has been afebrile, was started on metoprolol yesterday and now Stabilized. This is an 83 years old male patient presented to the emergency room because of shortness of breath and he was found to have acute on chronic hypoxic and hypercarbic respiratory failure attributed to COPD exacerbation and aspiration pneumonia. #1 acute on chronic hypoxic and hypercapnic respiratory failure: Attributed to acute COPD exacerbation and aspiration pneumonia. Treated with IV antibiotics, steroids, BiPAP and bronchodilators. Initially, patient was admitted to the intensive care unit, treated with BiPAP along with steroids, antibiotics and bronchodilators. Respiratory panel for viruses were negative. Nasal swab for influenza a and B is negative. Blood culture showed no growth in 48 hours. Sputum culture revealed mixed normal slightly james. Initially, patient's oxygen continue to drop upon ambulation and he becomes tachycardic for which he was started on metoprolol and his heart rate improved. On discharge, pulse ox was down to 87% with ambulation which is improved. #2 acute COPD exacerbation: Treated with IV steroids and later with prednisone, IV clindamycin and bronchodilators. Discharged on clindamycin, tapering prednisone, started on DuoNeb every 8 hours and albuterol nebulizer as needed. #3 Aspiration pneumonia: Treated with IV clindamycin. Patient remained afebrile, leukocytosis resolved. Respiratory panel for viruses and nasal swab for influenza a and B were negative. Blood cultures showed no growth in 48 hours. Sputum culture revealed mixed no respiratory james. Patient discharged on cardiac diet, pur?e and thick nectar and plan is to be seen by speech therapy as outpatient. 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 Started on metoprolol 12.5 mg p.o. twice daily because of tachycardia upon ambulation. #5 COPD/chronic respiratory failure: Discharged on oxygen at 4 L, instructed to go up to 6 L with ambulation. #6 hypertension: Blood pressure stable, continueD on Norvasc, losartan and started on metoprolol as above. #7 chronic anemia: Baseline hemoglobin has been around 10 to 11 g/dL, it is 9.5 g/dL upon discharge. No source of obvious bleeding. Patient discharged home in a stable medical condition, discharged on oxygen at 4 L, instructed to go up to 6 L with activity, discharged on tapering course of prednisone, prescription was done for DuoNeb nebulizer every 8 hours, albuterol nebulizer every 4 hours as needed, started on metoprolol 12.5 mg p.o. twice daily, continued on his other previous home medications without any changes, plan to follow-up with PCP in 1 week, follow-up with pulmonology in 2 weeks. This note was generated with [employer] dictation software. It may contain incorrect words, spelling, and punctuation that were not noted in checking the note before signing. Patient Problems: Active and Suspected Problems (Last Updated 07/14/19 @ 10:19 by Nasrin Vences MD) COPD exacerbation (Acute) - Physical Exam Vitals/I&O's: Vital Signs Temp Pulse Resp BP Pulse Ox 98.6 F 96 20 H 112/51 L 89 07/17/19 09:37 07/17/19 10:57 07/17/19 10:57 07/17/19 09:43 07/17/19 11:01 Oxygen Flow Rate (L/min) [ 7 AMBULATION with Oxygen] Oxygen Flow Rate (L/min) 4 Oxygen Delivery Method Nasal Cannula Weight: 141 lb 1.533 oz Body Mass Index (BMI) 22.8 Intake and Output for Last 24 Hours 07/15/19 07/16/19 07/17/19 23:59 23:59 23:59 Intake Total 762 / 762 924.00 / 924.00 439.5 / 439.5 Output Total 1050 / 1050 1450 / 1450 375 / 375 Balance -288 / -288 -526.00 / -526.00 64.5 / 64.5 General: Alert, Oriented x3, Cooperative, - - Minimal shortness of breath. HEENT: Atraumatic, PERRLA, EOMI, Normocephalic Oral: Moist Mucosa, No Gingival or Mucosal Lesions/ Ulcerations Neck: Supple, No JVD, Negative Carotid Bruits, Trachea Midline, Thyroid Normal Size and Texture Lungs: Clear to auscultation, Normal air movement, No rales, Diminished, Rhonchi, Wheezes Cardiovascular: Regular rate, Regular Rhythm, Normal S1, Normal S2, No Ectopic Activity, PMI Normal Abdomen: Soft, Non Tender, Non-Distended, No Hepato-splenomegaly Extremities: No clubbing, No cyanosis, No edema Skin: No rashes, No breakdown Lymphatic: No Cervical, Supraclavicular, or Inguinal Adenopathy Neurological: Cranial nerves II-XII grossly intact, Neuro grossly intact Psych/Mental Status: Normal Affect, Appropriate Microbiology Past 72 Hours 07/15/19 12:45 Sputum, Expectorated/Coughed Gram Stain - Final 07/15/19 12:45 Sputum, Expectorated/Coughed Respiratory Culture - Final 07/13/19 10:40 Blood Culture (Wb) - Anticubital Left Blood Culture - Preliminary No growth in 48 hours. 07/13/19 10:55 Blood Culture (Wb) - Anticubital Right Blood Culture - Preliminary No growth in 48 hours. Current Medications Acetaminophen (Tylenol) 650 mg PO Q6H PRN PRN PRN Reason: Non-cardiac pain () Last Admin: 07/15/19 12:39 Dose: 650 mg Documented by: Al Hydroxide/Mg Hydroxide (Mylanta Ii) 15 - 30 ml PO Q4H PRN PRN PRN Reason: INDIGESTION Albuterol Sulfate (Ventolin Aerosols) 2.5 mg INHALATION Q2H PRN PRN PRN Reason: dyspnea, wheezing Last Admin: 07/14/19 05:33 Dose: 2.5 mg Documented by: Albuterol/Ipratropium (Duoneb) 3 ml INHALATION Q4HWA.RT [facility] Last Admin: 07/17/19 10:57 Dose: 3 ml Documented by: Amlodipine Besylate (Norvasc) 5 mg PO DAILY [facility] Last Admin: 07/17/19 09:44 Dose: 5 mg Documented by: Enoxaparin Sodium (Lovenox) 40 mg SC DAILY [facility] Last Admin: 07/17/19 09:43 Dose: 40 mg Documented by: Furosemide (Lasix) 40 mg PO DAILY [facility] Last Admin: 07/17/19 09:44 Dose: 40 mg Documented by: Glucagon () 1 mg IM .X1 PRN PRN Reason: Hypoglycemia Guaifenesin (Robitussin) 10 ml PO Q4H PRN PRN PRN Reason: COUGH Hydralazine HCl (Apresoline Iv) 10 mg IV Q4H PRN PRN PRN Reason: SBP > 160 Sodium Chloride () 500 mls @ 999 mls/hr IV .Q31M ONE Last Infusion: 07/13/19 11:58 Dose: Infused Documented by: Sodium Chloride () 250 mls @ 15 mls/hr IV .[id number] PRN PRN Reason: Saline Flush Last Infusion: 07/17/19 05:46 Dose: Infused Documented by: Clindamycin Phosphate 600 mg/ (Dextrose) 54 mls @ 100 mls/hr IV Q8 [facility] Last Infusion: 07/17/19 05:45 Dose: Infused Documented by: Dextrose (Dextrose 10%-Water) 250 mls @ 999 mls/hr IV X1 PRN; Protocol PRN Reason: HYPOGLYCEMIA Losartan Potassium (Cozaar) 25 mg PO DAILY [facility] Last Admin: 07/17/19 09:44 Dose: 25 mg Documented by: Magnesium Hydroxide (Milk Of Magnesia) 30 ml PO DAILY PRN PRN Reason: Constipation Melatonin (Melatonin) 3 mg PO QHS PRN PRN PRN Reason: INSOMNIA Metoprolol Tartrate (Lopressor (Beta Kathi)) 12.5 mg PO BID [facility] Last Admin: 07/17/19 09:43 Dose: 12.5 mg Documented by: Nitroglycerin (Nitrostat) 0.4 mg SUBLINGUAL Q5M PRN PRN Reason: CARDIAC/CHEST PAIN Ondansetron HCl (Zofran) 4 mg IV Q8H PRN PRN PRN Reason: NAUSEA/VOMITING Polyethylene Glycol (Miralax) 17 gm PO DAILY PRN PRN PRN Reason: Constipation Prednisone () 40 mg PO DAILY@0800 [facility] Last Admin: 07/17/19 07:29 Dose: 40 mg Documented by: Sodium Chloride () 10 - 40 ml IV UD PRN PRN Reason: SALINE FLUSH Last Admin: 07/16/19 05:28 Dose: 10 ml Documented by: Throat Lozenges (Cepacol Sore Throat Lozenge) 1 lozenge MUCOUS MEM Q2H PRN PRN PRN Reason: Sore Throat/Cough Discharge Activity: Return to Normal Activity Weight Bearing Status: Weight bearing as tolerated Call your doctor if you observe: Fever of 101 or Higher, Shortness of breath, Dizziness, Fainting spells, Chest pain, Increased palpitations (irregular heartbeat), Uncontrolled pain Home Medications: Medications to take at Discharge Cholecalciferol (VIT D3) [Vitamin D3] 1,000 unit PO DAILY 06/25/16 Polyethylene Glycol 3350 [Miralax] 17 gm PO DAILY PRN PRN 09/27/16 Acetaminophen [Tylenol Tablet] 650 mg PO Q6H PRN PRN #0 tab 10/24/16 Amlodipine [Norvasc] 5 mg PO DAILY #30 tab 06/12/17 Losartan Potassium 25 mg PO DAILY #0 06/12/17 Albuterol IH (ProAir) [Proair Hfa] 2 puff INHALATION Q4H PRN PRN #0 11/01/18 Furosemide [Lasix] 40 mg PO DAILY #30 tab 11/01/18 umeclidinium 62.5 mcg-vilanterol 25 mcg/actuation powdr for inhalation 1 inh INHALATION Q24H 07/08/19 Albuterol Aerosols [Ventolin Aerosols] 2.5 mg INHALATION Q4H PRN PRN #90 vial.neb. 07/17/19 Clindamycin [Cleocin] 450 mg PO TID 3 Days #27 cap 07/17/19 Ipratropium/Albuterol Sulfate [Duoneb] 3 ml INHALATION Q8 #90 ampul.neb 07/17/19 Metoprolol Tartrate [Lopressor (beta kathi)] 12.5 mg PO BID #90 tab 07/17/19 Prednisone 40 mg PO DAILY #30 tab 07/17/19 Following Prescrptions Were Given to Patient: Clindamycin [Cleocin] 450 mg PO TID 3 Days #27 cap Transmission Status: Received by [facility]30 Ipratropium/Albuterol Sulfate [Duoneb] 3 ml INHALATION Q8 #90 ampul.neb Transmission Status: Received by [facility]30 Metoprolol Tartrate [Lopressor (beta kathi)] 12.5 mg PO BID #90 tab Transmission Status: Received by [facility]30 Prednisone 40 mg PO DAILY #30 tab Transmission Status: Received by [facility]30 Albuterol Aerosols [Ventolin Aerosols] 2.5 mg INHALATION Q4H PRN PRN #90 vial.neb. PRN Reason: dyspnea, wheezing Transmission Status: Received by [facility]30 Primary Care Physician: Misael Valencia MD [Primary Care Provider] - Please follow up with your Primary Care Physician in: 1 week. Please Follow Up With: Misael Valencia MD Please Follow Up With: Anoop Powers MD When: 2 weeks. Disposition: Home Minutes spent on discharge:: 33 Patient Condition:: Stable Medical Necessity - Tobacco Use Smoking Status: Former smoker Tobacco Use: Non-smoker Meaningful Use Info Meaningful Use Diagnoses (Choose all that apply): None applicable Code Visit Inpatient E&M: 17293 Disch Hosp
--- NOTE | 2019-07-18 12:37 | CASEMGMT ---
FLORINDA DC PHONE CALL DC DATE: 07/17/19 DC Disposition: Home with [facility] Diagnosis on Discharge: COPD exacerbation LACE/STRATA:16/11 Call deferred. Pt home with [facility]. Payton CRAWFORD RN ACM
== END 2019-07-17 15:21 | disposition home or self-care (01) | DRG 177 ==
LOC: ED 11:06 → ICU 12:02 → PCU 07-14 17:11
PROVIDERS: Admitting Provider Family Medicine; Emergency Provider Emergency Medicine; Family Provider Internal Medicine; PCP Internal Medicine; Referring Provider Family Medicine; Visit Provider Hospitalist
DX: J69.0 Pneumonitis due to inhalation of food and vomit (principal); J96.21 Acute and chronic respiratory failure with hypoxia; J96.22 Acute and chronic respiratory failure with hypercapnia; J44.1 Chronic obstructive pulmonary disease with (acute) exacerbation; I50.22 Chronic systolic (congestive) heart failure; I11.0 Hypertensive heart disease with heart failure; R13.12 Dysphagia, oropharyngeal phase; I35.0 Nonrheumatic aortic (valve) stenosis; I36.1 Nonrheumatic tricuspid (valve) insufficiency; K21.9 Gastro-esophageal reflux disease without esophagitis; I44.1 Atrioventricular block, second degree; Z99.81 Dependence on supplemental oxygen; D64.9 Anemia, unspecified; Z95.0 Presence of cardiac pacemaker; Z85.118 Personal history of other malignant neoplasm of bronchus and lung; Z87.891 Personal history of nicotine dependence; I27.20 Pulmonary hypertension, unspecified
CPT/HCPCS: 36415; 36600; 71045; 80048; 82803; 83036; 83605; 83735; 84484; 85014; 85018; 85025; 87040; 87070; 87205; 87633; 87804; 92507; 92526; 92610; 93005; 94002; 94003; 94640; 94762; 97110; 97162; 97166; 97530; 97535; 97802; 99251; 99285; J7030; J7040; J7050; A4216; G0463; J1940

== ENCOUNTER → 2019-07-31 | Outpatient (CLI) | payer MEDICARE, OTHER, SELFPAY ==
[2019-07-31 08:21] VITALS: BMI 22.8
== END | disposition home or self-care (01) ==
LOC: LABSPEC 11:08
PROVIDERS: Family Provider Internal Medicine; PCP Internal Medicine; Referring Provider Nurse Practitioner Acute Care; Visit Provider Nurse Practitioner Acute Care
DX: J44.1 Chronic obstructive pulmonary disease with (acute) exacerbation (principal)
CPT/HCPCS: 87070; 87077; 87205

== ENCOUNTER 2019-08-12 21:36 | Inpatient (IN) | payer MEDICARE, OTHER, SELFPAY ==
[2019-07-31 08:21] VITALS: BMI 22.8
[2019-08-12 21:36] VITALS: PULSE 124; RESP 12; RESP 26; O2SAT 95
[2019-08-12 21:37] VITALS: BP 157/84; PULSE 124; RESP 28; TEMP 36.4; O2SAT 94; BMI 21.6
[2019-08-12 21:50] VITALS: BP 139/77; PULSE 120; RESP 34; O2SAT 95
--- NOTE | 2019-08-12 21:53 | EKG12_ITS ---
Test Reason : SOB Blood Pressure : / mmHG Vent. Rate : 121 BPM Atrial Rate : 121 BPM P-R Int : 000 ms QRS Dur : 174 ms QT Int : 404 ms P-R-T Axes : 000 -86 096 degrees QTc Int : 573 ms Ventricular-paced rhythm Abnormal ECG Confirmed by MAXIME SARGENT ([id number]), senior technical editor KEENAN SOTO ([id number] on 08/14/2019 10:47:43 AM Referred By: Confirmed By:MAXIME SARGENT
--- NOTE | 2019-08-12 21:55 | RAD_ITS ---
STUDY: X-RAY CHEST REASON FOR EXAM: Male, 83 years old. Shortness of breath TECHNIQUE: Frontal view of the chest COMPARISON: 07/15/2019 FINDINGS: There are patchy airspace opacities in the mid to lower lung tran which are increased when compared with the prior exam. There is a stable small right pleural effusion. There is a left pleural effusion. There is no pneumothorax. There are stable emphysematous changes noted in the lungs. The heart is normal in size. Again noted is a pacemaker. The visualized osseous structures are within normal limits. RAD/Chest 1 View (Portable) IMPRESSION: Patchy airspace opacities in the mid to lower lung tran bilaterally. This is increased when compared with the prior exam. Electronically Signed: Steven Christy, at 22:19 EST Tel , Service support ,
--- NOTE | 2019-08-12 21:57 | CPS ---
PT PLACED ON BIPAP IN CHAU-AT 18/9 AND 80%--DECREASED O2 WHEN PT GOT IN ROOM AND POX APPLIED. DR WHITNEY AWARE
[2019-08-12 22:01] LABS: Absolute Lymphocyte Count 3.73 X10^3/uL (0.83-4.51); Absolute Neutrophil Count 12.8 X10^3/uL (2.0-7.7); Basophil# 0.08 X10^3/uL; Basophil% 0.4 % (0-1); Eosinophil# 0.19 X10^3/uL; Hematocrit 39.9 % (40-54); Hemoglobin 12.2 g/dL (13.0-16.5); Lymphocyte # 3.73 X10^3/ul (4.0); Lymphocyte % 20.5 % (19-41); Mean Corp Hgb Conc 30.6 g/dL (32-36); Mean Corpuscular Hgb 29.3 pg (27.0-32.0); Mean Corpuscular Volume 95.7 fL (80-94); Monocyte# 1.23 X10^3/uL; Monocyte% 6.8 % (0-10); NRBC Flagged by Analyzer 0 % (0-5); Neutrophil # 12.82 X10^3/uL (2.7-7.7); Neutrophil % 70.5 % (47-70); Platelet Count 276 K/mm3 (150-450); RBC Distribution Width SD 46.1 fl (35.1-43.9); Red Blood Count 4.17 M/mm3 (4.6-6.2); White Blood Count 18.2 K/mm3 (4.4-11.0)
[2019-08-12] MEDS: Ipratropium/Albuterol Sulfate 3 ML AMPUL.NEB INHALATION (22:10)
[2019-08-12] MEDS: Albuterol 2.5 MG/3 ML VIAL.NEB. INHALATION ×3 (22:10→22:11)
[2019-08-12 22:12] VITALS: PULSE 120; RESP 25; O2SAT 92
[2019-08-12 22:24] LABS: Lactic Acid 1.4 mmol/L (0.4-1.9)
[2019-08-12 22:28] LABS: BNP,B-Type NATRIURETIC PEPTIDE 64.1 pg/mL (0-100)
[2019-08-12 22:44] LABS: Anion Gap 3 (5-15); BUN 13 mg/dL (7-18); BUN/Creat Ratio 16.4 RATIO (10-20); Calcium,Total 8.9 mg/dL (8.5-10.1); Chloride 93 mmol/L (98-107); Creatinine, Serum 0.79 mg/dL (0.70-1.30); EST Glomerular Filtration Rate 99 mL/min (>60); Est Glom Filt Rate - Afr Amer 120 mL/min (>60); Estimated Creatinine Clearance 53.49 ml/min; Glucose 207 mg/dL (74-106); Potassium 4.3 mmol/L (3.5-5.1); Sodium Level 132 mmol/L (136-145)
[2019-08-12] MEDS: levoFLOXacin IV 750 MG/150 ML BAG 100 MG IV (22:55)
[2019-08-12 22:59] VITALS: BP 97/66; PULSE 114; RESP 28; TEMP 36.4; O2SAT 95
[2019-08-12 23:30] VITALS: BP 86/56; PULSE 109; RESP 24; O2SAT 96
--- NOTE | 2019-08-12 23:35 | ED.DCSUM_ITS ---
- ER Visit Summary Date of Service: 08/12/19 Chief Complaint: Shortness of breath History of Present Illness: The patient is a [address] Valencia, Dr. Mccartney/Gio, and Dr. Alan. Patient reports that he has shortness of breath began 30 minutes ago. It was severe at worst mild currently. This is after being placed on BiPAP by EMS. Patient reports that he has a chronic cough that is productive of white sputum without blood. He denies any fever, chills, chest pain. Family reports that he has leg swelling bilaterally that began yesterday. He also finished prednisone and antibiotics yesterday. He reports that he has pain on the left side of his back that began 3 to 4 days ago. States that he was exercising and heard a pop. Physical Examination: Vitals: 97.6, 139/77, 120, 34, 95% on BiPAP. General: Well-nourished and well-developed. Head: Normocephalic atraumatic. Neck: Supple, no lymphadenopathy. No JVD. Nontender. Cardiovascular: Tachycardic regular rhythm. No murmurs. Respiratory: No respiratory distress with poor air movement and rhonchi bilat erally. Abdominal: Soft, nontender, nondistended, normal bowel sounds. No guarding, rebound, or peritoneal signs. Back: Nontender. Extremities: Nontender, 2+ pitting edema lower extremities bilaterally. Skin: Normal color, no rash. Neurologic: Alert and oriented ?3. Cranial nerves II through XII are intact. Normal strength and sensation. Psych: Normal affect. Test Results: EKG is AV paced at 121 with radial artifact. Is unchanged from last month. Troponin is negative. BT [employer] is 64.1. Lactic acid is 1.4. Chem-7 shows a sodium 132, chloride 93, CO2 36, glucose 207. CBC shows a white count of 18.3 with an H&H of 12.2 and 39.9, 7 neutrophils 71. ABG shows a pH of 7.41 with a bicarb of 34.1, CO2 36, PO2 of 76 on FiO2 of 65%. Clinical Impression(s) from Imaging Studies Chest X-Ray 08/12/19 21:55 IMPRESSION: Patchy airspace opacities in the mid to lower lung tran bilaterally. This is increased when compared with the prior exam. Electronically Signed: Steven Christy, at 22:19 EST Tel , Service support , Emergency Department Course and Treatment: Patient was continued on BiPAP while here. He feels much improved. He was given albuterol and Atrovent aerosols. He was given Solu-Medrol IV. He was given Zosyn and vancomycin IV. Treatment Plan: Patient was discussed with Dr. Vásquez. He will be admitted to the ICU for further evaluation and treatment. He wants to be full code. Disposition: Admitted in critical condition. Impression: 1. Pneumonia, bilateral. 2. Severe sepsis. 3. Acute on chronic respiratory failure on BiPAP. 4. Critical care time 30 minutes. This note was generated with [employer] dictation software. It may contain incorrect words, spelling, and punctuation that were not noted in review of the chart taylor or to signing ED Disposition - Plan for ED Patient:
[2019-08-12] MEDS: 0.9% Normal Saline 1,000 ML 999 ML IV (23:54)
[2019-08-13] VITALS (44 sets, daily range): BP systolic 91–146; BP diastolic 50–111; PULSE 71–131; RESP 12–32; TEMP 36.1–36.9; O2SAT 72–100; BMI 22.6; BMI 22.7
[2019-08-13 00:25] LABS: Allen Test POS; Base Excess 9 mmol/L (-2 to +2); Bicarbonate 34.1 mmol/L (22-26); Blood Gas Specimen Type ART; EPAP 9; FI02 65; IPAP 18; PO2 76 mmHG (75-100); RR 12; SITE R Radial; SO2 95 % (95-99); Total Carbon Dioxide 36 mmol/L; pCO2 53.8 mmHg (35-45); pH 7.41 (7.35-7.45)
[2019-08-13] MEDS: Vancomycin IV 1,000 MG/200 ML BAG 200 MG IV (00:31)
[2019-08-13] MEDS: 0.9% Normal Saline 1,000 ML 999 ML IV (01:31)
--- NOTE | 2019-08-13 01:31 | HP.PCM_ITS ---
Problem List (1) Presence of cardiac pacemaker Status: Chronic (2) Essential hypertension Status: Chronic (3) COPD exacerbation Status: Acute (4) Paroxysmal atrial flutter Status: Chronic (5) Chronic respiratory failure Status: Chronic Qualifiers: Respiratory failure complication: hypoxia Qualified Code(s): J96.11 - Chronic respiratory failure with hypoxia (6) Pulmonary hypertension Status: Chronic (7) Acute and chronic respiratory failure Status: Chronic Qualifiers: Respiratory failure complication: hypoxia and hypercapnia Qualified Code(s): J96.21 - Acute and chronic respiratory failure with hypoxia; J96.22 - Acute and chronic respiratory failure with hypercapnia History of Present Illness Date of Admission: 08/13/19 Chief Complaint: Progressive SOB The patient is a 83 year old M with past medical history of severe COPD with chronic respiratory failure on 4 L of oxygen at rest and 5 L when he is walking, severe pulmonary hypertension seen with complaints of progressive shortness of breath. He shortness of breath was severe. He was found to be having increased work of breathing. The EMS was called. He admits to some chronic cough that is productive of whitish sputum. He denies any fever or chills or chest pain or dizziness or palpitation. Vitals in the ED showed temperature of 97.6F, heart rate 124, blood pressure 157/84, respiratory rate was 28, SPO2 was 94% on BiPAP. Admitting blood pressure WBC count of 18.2, hemoglobin 12.2, platelet count 276, 132, potassium 4.3, chloride 93, bicarbonate 36, BUN 13, creatinine 0.79, lactic acid 1.4, troponin 0 0.015, BNP was 64.1. His ABG showed pH of 7.41, PO2 was 95% on BiPAP 18/9, CO2 was 53.8 Admitting chest x-ray showed a patchy airspace opacity in the mid to lower lung tran bilaterally. 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) 06/11/17 Chronic respiratory failure (Chronic) COPD (chronic obstructive pulmonary disease) (Chronic) Conduction disorder of the heart (Chronic) Pulmonary hypertension (Chronic) GERD (gastroesophageal reflux disease) (Chronic) Bullous emphysema (Chronic) Medical History: Medical History (Last Reviewed 07/31/19 @ 15:20 by Shu Chahal NP-C) Paroxysmal atrial flutter (Chronic) I48.92 Aortic valve stenosis, nonrheumatic (Chronic) I35.0 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) I44.1 Chronic respiratory failure (Chronic) J96.10 COPD (chronic obstructive pulmonary disease) (Chronic) J44.9 Conduction disorder of the heart (Chronic) I45.9 Pulmonary hypertension (Chronic) I27.20 GERD (gastroesophageal reflux disease) (Chronic) K21.9 Bullous emphysema (Chronic) J43.9 Anxiety F41.9 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 Colon polyps Lung cancer (Inactive) C34.90 Allergies ampicillin Allergy (Verified 08/12/19 21:42) Anaphylaxis azithromycin Allergy (Verified 08/12/19 21:42) Rash codeine Allergy (Verified 08/12/19 21:42) Rash penicillin G Allergy (Verified 08/12/19 21:42) Rash Sulfa (Sulfonamide Antibiotics) Allergy (Verified 08/12/19 21:42) Rash sulfamethoxazole [From Bactrim] Allergy (Verified 08/12/19 21:42) Rash trimethoprim [From Bactrim] Allergy (Verified 07/31/19 09:39) Rash Home Medications: Ambulatory Orders Medication Instructions Recorded Acetaminophen [Tylenol Tablet] 650 mg PO Q6H PRN PRN #0 tab 10/24/16 Losartan Potassium 25 mg PO DAILY #0 06/12/17 Albuterol IH (ProAir) [Proair Hfa] 2 puff INHALATION Q4H PRN PRN #0 11/01/18 Albuterol Aerosols [Ventolin 2.5 mg INHALATION Q4H PRN PRN #90 07/17/19 Aerosols] vial.neb. Umeclidinium Brm/Vilanterol Tr 1 puff INHALATION DAILY 08/12/19 [Anoro Ellipta 62.5-25 Mcg INH] Amlodipine [Norvasc] 5 mg PO DAILY 08/13/19 Furosemide [Lasix] 40 mg PO DAILY 08/13/19 Ipratropium/Albuterol Sulfate 3 ml INHALATION Q8 08/13/19 [Duoneb] Surgical History: Surgical History (Last Reviewed 07/31/19 @ 15:20 by CAITLIN Love) History of permanent cardiac pacemaker placement (Chronic) Z95.0 06/11/17 History of appendectomy Z98.890, Z90.49 Hx of cataract surgery Z98.49 Surgical History: appendectomy, cataract, pacemaker implantation Psychiatric History: Anxiety, Depression Lives: Spouse/ Significant Other Smoking Status: Former smoker Tobacco Use: Non-smoker Alcohol: None Drugs: None - *Family History Paternal Family History: Family History (Last Reviewed 07/31/19 @ 15:20 by CAITLIN Love) Brother Diabetes Sister Diabetes Lung cancer History Items: Heart Disease - Father with history of heart disease, at age 96. Offspring Family History: Family History (Last Reviewed 07/31/19 @ 15:20 by CAITLIN Love) Brother Diabetes Sister Diabetes Lung cancer History Items: COPD Sibling Family History: Family History (Last Reviewed 07/31/19 @ 15:20 by CAITLIN Love) Brother Diabetes Sister Diabetes Lung cancer History Items: COPD, Diabetes, Heart Disease Maternal Family History: Family History (Last Reviewed 07/31/19 @ 15:20 by CAITLIN Love) Brother Diabetes Sister Diabetes Lung cancer History Items: Heart Disease, - - osteoporosis Review of Systems Constitutional: Reports: Weakness, Fatigue. Denies: Anorexia, Chills, Fever, Malaise, Weight Change Eyes: Denies: Blurred vision, Cataracts, Conjunctivae Inflammation, Pain, Redness, Vision Change HEENT: Denies: Difficulty Hearing, Difficulty Swallowing, Head Aches, Hearing Changes, Sinus Congestion, Sinus Drainage Cardiovascular: Denies: Chest Pain, Claudication, Chest Pressure, Orthopnea, Palpitations, Paroxysmal Noc. Dyspnea Respiratory: Reports: Cough, Shortness of Breath, Shortness of breath at rest, Shortness of breath upon exertion, Sputum production, Wheezing. Denies: Hemoptysis Gastrointestinal: Denies: Abdominal Pain, Constipation, Hematemesis, Hematochezia, Nausea, Vomiting Genitourinary: Denies: Dysuria, Frequency, Incontinence, Nocturia, Retention Musculoskeletal: Denies: Arm Pain, Back Pain, Joint Pain, Joint stiffness, Joint swelling, Joint Tenderness Skin: Denies: Dryness, Pruritis, Rash, Wounds Neurological: Denies: Balance problems, Difficulty swallowing, Focal weakness, Numbness, Tingling Psychiatric: Denies: Anxiety, Depression, Homicidal Ideations, Suicidal Ideations Hematologic/ Lymphatic: Denies: Easy Bruising, Easy Bleeding VTE Information - Inpt Only VTE Present on Admission: No VTE Pharm Prophylaxis ordered?: Yes - Physical Exam Vitals/I&O's: Vital Signs Temp Pulse Resp BP Pulse Ox 97.5 F L 100 24 H 102/67 96 08/13/19 01:28 08/13/19 01:28 08/13/19 01:28 08/13/19 01:28 08/13/19 01:28 Oxygen Delivery Method Bi-pap Weight: 66.4 kg Body Mass Index (BMI) 21.6 Intake and Output for Last 24 Hours 08/11/19 08/12/19 08/13/19 23:59 23:59 23:59 Intake Total 1150 / 1150 Balance 1150 / 1150 General: Alert, Oriented x3, Cooperative, - - In moderate respiratory distress, on BiPAP HEENT: Atraumatic, PERRLA, EOMI, Normocephalic Oral: Dry Mucosa Neck: Supple Lungs: Diminished Cardiovascular: Regular rate, Regular Rhythm, Normal S1, Normal S2, No murmurs Abdomen: Bowel Sounds Present, Soft, Non Tender, Non-Distended, No Hepato- splenomegaly Extremities: No edema Skin: No rashes, No breakdown Musculoskeletal: No Tenderness to Palpation of Joints or Extremities Lymphatic: No Cervical, Supraclavicular, or Inguinal Adenopathy Neurological: Cranial nerves II-XII grossly intact, Neuro grossly intact Psych/Mental Status: Normal Affect, Appropriate Laboratory Results 08/12/19 21:50: WBC 18.2 H, RBC 4.17 L, Hgb 12.2 L, Hct 39.9 L, MCV 95.7 H, MCH 29.3, MCHC 30.6 L, RDW Std Deviation 46.1 H, RDW Coeff of Earline 13.0, Plt Count 276, MPV 9.0, Immature Gran % (Auto) 0.800, Neut % (Auto) 70.5 H, Lymph % (Auto) 20.5, [place] % (Auto) 6.8, Eos % (Auto) 1.0, Baso % (Auto) 0.4, Absolute Neuts (auto) 12.8 H, Absolute Lymphs (auto) 3.73, Nucleated RBC % 0 08/12/19 21:50: Sodium 132 L, Potassium 4.3, Chloride 93 L, Carbon Dioxide 36.0 H, Anion Gap 3 L, BUN 13, Creatinine 0.79, Estim Creat Clear Calc 53.49, Est GFR (MDRD) Af Amer 120, Est GFR (MDRD) Non-Af 99, BUN/Creatinine Ratio 16.4, Glucose 207 H, Calcium 8.9, Troponin I < 0.015 08/12/19 21:50: Lactic Acid 1.4 08/12/19 21:50: B-Natriuretic Peptide 64.1 08/13/19 00:19: Specimen Type ART, Sample Site R Radial, pH 7.41, Bicarbonate Actual 34.1 H, POC Total CO2 36, Base Excess 9 H, O2 Saturation 95, O2 % 65, ABG pCO2 53.8 H, ABG pO2 76, Mo Test POS, Respiration Rate 12, O2 Delivery Device Bi / C PAP, EPAP 9, IPAP 18, Blood Gas Notified Whom ED MD Current Medications Sodium Chloride () 1,000 mls @ 999 mls/hr IV .Q1H1M WEI Stop: 08/13/19 01:40 Last Admin: 08/13/19 01:31 Dose: 999 mls/hr Documented by: Assessment/Plan All Active Problems (Last Reviewed 07/31/19 @ 15:20 by Shu Chahal, PATHOLOGY COLLECTOR-C) COPD exacerbation (Acute) 83 year old M with past medical history of severe COPD with chronic respiratory failure on 4 L of oxygen at rest and 5 L when he is walking, severe pulmonary hypertension comes in with complaints of progressive shortness of breath. 1. Acute on chronic combined respiratory failure secondary to progressive bilateral pneumonia Patient appears to be stable for now on BiPAP, code status is full code We will continue to monitor in ICU, agricultural services director consulted. 2. Acute bilateral pneumonia, on baseline chronic lung changes History of penicillin allergy Started on vancomycin and aztreonam; will continue same Pulmonology consult, IV steroids, breathing treatment, continue on BiPAP 3. Probable acute COPD exacerbation, start on empiric steroids, routine treatment 4. Hypertension, controlled, continue on home amlodipine, losartan, hold for systolic blood pressure less than 110 5. Hyponatremia, appears to be chronic, close to baseline, continue to monitor 6. DVT prophylaxis with heparin subcu 7. Code status: Full code Discussed in detail with the patient explaining the various types of CODE STATUS-full code, DNR CCA, DNR CC. Patient wants to be full code. Per his , he was ill a couple of months in similar conditions and he bounced back and he feels that he would be able to bounce back. Time spent discussing CODE STATUS 17 minutes Code Visit Inpatient E&M: 17904 Init Hosp L3 Procedures: 24826 Advncd Care Plan 30 Min
--- NOTE | 2019-08-13 03:46 | PCM.RX.CS ---
Consult Pharmacy has been consulted to manage selected antiobiotic: Vancomycin Type of Consult: New start Labs: Sodium 132 mmol/L (136-145) L 08/12/19 21:50 Potassium 4.3 mmol/L (3.5-5.1) 08/12/19 21:50 Chloride 93 mmol/L (98-107) L 08/12/19 21:50 Carbon Dioxide 36.0 mmol/L (21.0-32.0) H 08/12/19 21:50 Anion Gap 3 (5-15) L 08/12/19 21:50 BUN 13 mg/dL (7-18) 08/12/19 21:50 Creatinine 0.79 mg/dL (0.70-1.30) 08/12/19 21:50 Est GFR (MDRD) Af Amer 120 mL/min (>60) 08/12/19 21:50 Est GFR (MDRD) Non-Af 99 mL/min (>60) 08/12/19 21:50 BUN/Creatinine Ratio 16.4 RATIO (10-20) 08/12/19 21:50 Glucose 207 mg/dL (74-106) H 08/12/19 21:50 Weight used for dosin.7 kg Estimated Creatinine Clearance: 66.1 Goal Trough: 15-20 mcg/mL Pharmacy Plan for Drug Dosing: Pharmacy Service will continue to monitor and adjust dosing as required. Medications Vancomycin HCl 750 mg/ Sodium (Chloride) 265 mls @ 250 mls/hr IV Q12H WEI Discontinued Medications Vancomycin HCl (Vancomycin) 1,000 mg in 200 mls @ 200 mls/hr IV X1 ONE Stop: 08/12/19 23:34 Last Admin: 08/13/19 01:32 Dose: Infused Documented by: Follow-Up Labs: Trough Vancomycin Labs to be done on [date and time ordered]: 08/14 @ 1200
[2019-08-13] MEDS: Heparin Injection (Vial) 5,000 UNIT/ML VIAL 5000 UNIT SC ×3 (05:57→21:35)
[2019-08-13] MEDS: Ipratropium/Albuterol Sulfate 3 ML AMPUL.NEB INHALATION ×5 (06:34→23:14)
[2019-08-13 07:56] LABS: Absolute Lymphocyte Count 0.39 X10^3/uL (0.83-4.51); Absolute Neutrophil Count 4.2 X10^3/uL (2.0-7.7); Hematocrit 29.3 % (40-54); Lymphocyte # 0.39 X10^3/ul (4.0); Lymphocyte % 8.2 % (19-41); Mean Corp Hgb Conc 30.7 g/dL (32-36); Mean Corpuscular Hgb 28.8 pg (27.0-32.0); Mean Corpuscular Volume 93.9 fL (80-94); Mean Platelet Vol. 9.2 fl (6.2-12.0); Monocyte# 0.15 X10^3/uL; Monocyte% 3.1 % (0-10); NRBC Flagged by Analyzer 0 % (0-5); Neutrophil # 4.19 X10^3/uL (2.7-7.7); Neutrophil % 87.9 % (47-70); POSITIVE DIFFERENTIAL YES; Platelet Count 195 K/mm3 (150-450); RBC Distribution Width CV 13.2 % (11.6-14.6); RBC Distribution Width SD 45.1 fl (35.1-43.9); Red Blood Count 3.12 M/mm3 (4.6-6.2); White Blood Count 4.8 K/mm3 (4.4-11.0)
[2019-08-13 07:57] LABS: Differential Indicated SCAN CRITERIA MET
[2019-08-13 08:06] LABS: Anion Gap 3 (5-15); BUN 12 mg/dL (7-18); BUN/Creat Ratio 17.9 RATIO (10-20); Calcium,Total 8.2 mg/dL (8.5-10.1); Chloride 100 mmol/L (98-107); Creatinine, Serum 0.67 mg/dL (0.70-1.30); EST Glomerular Filtration Rate 120 mL/min (>60); Est Glom Filt Rate - Afr Amer 145 mL/min (>60); Estimated Creatinine Clearance 53.25 ml/min; Glucose 159 mg/dL (74-106); Potassium 4.4 mmol/L (3.5-5.1); Sodium Level 134 mmol/L (136-145)
[2019-08-13 08:17] LABS: Hypochromasia 1+; Platelet Estimate ADEQUATE (ADEQ)
--- NOTE | 2019-08-13 09:30 | NURSING ---
Pt was successfully straight catheterized for 700cc lima urine. He tolerated procedure well.
--- NOTE | 2019-08-13 10:14 | CON.PCM_ITS ---
Problem List (1) Acute and chronic respiratory failure Status: Chronic Qualifiers: Respiratory failure complication: hypoxia and hypercapnia Qualified Code(s): J96.21 - Acute and chronic respiratory failure with hypoxia; J96.22 - Acute and chronic respiratory failure with hypercapnia (2) Diastolic dysfunction Status: Chronic (3) Right lower lobe lung mass Status: Chronic (4) Essential hypertension Status: Chronic (5) Paroxysmal atrial flutter Status: Chronic (6) Non-rheumatic tricuspid valve insufficiency Status: Chronic (7) History of permanent cardiac pacemaker placement Status: Chronic Comment: 06/11/17 (8) Chronic respiratory failure Status: Chronic Qualifiers: Respiratory failure complication: hypoxia Qualified Code(s): J96.11 - Chronic respiratory failure with hypoxia (9) COPD (chronic obstructive pulmonary disease) Status: Chronic Qualifiers: COPD type: unspecified COPD Qualified Code(s): J44.9 - Chronic obstructive pulmonary disease, unspecified (10) Pulmonary hypertension Status: Chronic (11) GERD (gastroesophageal reflux disease) Status: Chronic Qualifiers: Esophagitis presence: esophagitis presence not specified Qualified Code(s): K21.9 - Gastro-esophageal reflux disease without esophagitis Reason for Consult Date of Consultation: 08/13/19 Reason for Consultation: Respiratory failure History of Present Illness: The patient is an 83 year old M, with past medical history listed below and well-known to me from the outpatient office, who presented to [facility] on 08/12/2019 secondary to progressive shortness of breath. Patient had reported significant shortness of breath at home and called EMS. Patient had reported a cough productive of white to yellow sputum. Patient did not have any fevers, chills or chest pains reported. On arrival, patient did require BiPAP rescue by EMS. Patient had reported some increased lower extremity edema and had recently finished prednisone and antibiotics. Patient did report some left- sided chest pain that developed during exercise. Patient had reportedly heard a pop prior to the onset of the pain. In the ER, patient was noted to be 95% on BiPAP therapy. Blood pressure was okay, but tachycardic at 120 bpm. Patient was noted to have 2+ lower extremity edema. Patient does report some dietary indiscretions over the holidays, but overall felt I did okay. Chest x-ray does report patchy airspace disease that is slightly increased compared to prior exam. Patient was admitted to the intensive care unit with BiPAP rescue, IV antibiotics and bronchodilators. This morning, patient reports significant improvement in overall condition. Patient's respiratory rate has significantly decreased. Patient has Lasix ordered, but this has not been given yet. Patient has not been tried off of BiPAP therapy. Patient is not reporting any chest pain, abdominal pain, nausea or vomiting at this time. No sinus congestion is reported. Review of systems otherwise negative from a constitutional, HEENT, respiratory, cardiovascular, GI, genitourinary, musculoskeletal, skin, neurologic, psychiatric and hematologic system unless stated above. 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) 06/11/17 Chronic respiratory failure (Chronic) COPD (chronic obstructive pulmonary disease) (Chronic) Conduction disorder of the heart (Chronic) Pulmonary hypertension (Chronic) GERD (gastroesophageal reflux disease) (Chronic) Bullous emphysema (Chronic) Medical History: Medical History (Last Reviewed 07/31/19 @ 15:20 by Shu Chahal CATALOGUE LIBRARIAN-C) Paroxysmal atrial flutter (Chronic) I48.92 Aortic valve stenosis, nonrheumatic (Chronic) I35.0 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) I44.1 Chronic respiratory failure (Chronic) J96.10 COPD (chronic obstructive pulmonary disease) (Chronic) J44.9 Conduction disorder of the heart (Chronic) I45.9 Pulmonary hypertension (Chronic) I27.20 GERD (gastroesophageal reflux disease) (Chronic) K21.9 Bullous emphysema (Chronic) J43.9 Anxiety F41.9 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 Colon polyps Lung cancer (Inactive) C34.90 Allergies ampicillin Allergy (Verified 08/13/19 02:55) Anaphylaxis azithromycin Allergy (Verified 08/13/19 02:55) Rash codeine Allergy (Verified 08/13/19 02:55) Rash penicillin G Allergy (Verified 08/13/19 02:55) Rash Sulfa (Sulfonamide Antibiotics) Allergy (Verified 08/13/19 02:55) Rash sulfamethoxazole [From Bactrim] Allergy (Verified 08/13/19 02:55) Rash trimethoprim [From Bactrim] Allergy (Verified 08/13/19 02:55) Rash Home Medications: Ambulatory Orders Medication Instructions Recorded Acetaminophen [Tylenol Tablet] 650 mg PO Q6H PRN PRN #0 tab 10/24/16 Losartan Potassium 25 mg PO DAILY #0 06/12/17 Albuterol IH (ProAir) [Proair Hfa] 2 puff INHALATION Q4H PRN PRN #0 11/01/18 Albuterol Aerosols [Ventolin 2.5 mg INHALATION Q4H PRN PRN #90 07/17/19 Aerosols] vial.neb. Umeclidinium Brm/Vilanterol Tr 1 puff INHALATION DAILY 08/12/19 [Anoro Ellipta 62.5-25 Mcg INH] Amlodipine [Norvasc] 5 mg PO DAILY 08/13/19 Furosemide [Lasix] 40 mg PO DAILY 08/13/19 Ipratropium/Albuterol Sulfate 3 ml INHALATION Q8 08/13/19 [Duoneb] Surgical History: Surgical History (Last Reviewed 07/31/19 @ 15:20 by CAITLIN Love) History of permanent cardiac pacemaker placement (Chronic) Z95.0 06/11/17 History of appendectomy Z98.890, Z90.49 Hx of cataract surgery Z98.49 Surgical History: appendectomy, cataract, pacemaker implantation Psychiatric History: Anxiety, Depression Lives: Spouse/ Significant Other Smoking Status: Former smoker Tobacco Use: Non-smoker Alcohol: None Drugs: None - *Family History Paternal Family History: Family History (Last Reviewed 07/31/19 @ 15:20 by CAITLIN Love) Brother Diabetes Sister Diabetes Lung cancer History Items: Heart Disease - Father with history of heart disease, at age 96. Offspring Family History: Family History (Last Reviewed 07/31/19 @ 15:20 by MARANDA LoveC) Brother Diabetes Sister Diabetes Lung cancer History Items: COPD Sibling Family History: Family History (Last Reviewed 07/31/19 @ 15:20 by CAITLIN Love) Brother Diabetes Sister Diabetes Lung cancer History Items: COPD, Diabetes, Heart Disease Maternal Family History: Family History (Last Reviewed 07/31/19 @ 15:20 by CAITLIN Love) Brother Diabetes Sister Diabetes Lung cancer History Items: Heart Disease, - - osteoporosis Review of Systems Comment: See HPI Objective: Chest x-ray does show some increased bilateral infiltrates, right greater than left. Patient does have a previous echocardiogram showing moderate to severe mitral annular calcification with an EF of 45% and elevated pulmonary artery pressures. Previous PFT in 2009 had shown some irreversible moderate large airways obstructive ventilatory defect, but this has not been repeated. - Physical Exam Vitals/I&O's: Vital Signs Temp Pulse Resp BP Pulse Ox 36.5 C L 87 23 H 114/60 93 08/13/19 05:00 08/13/19 08:00 08/13/19 08:00 08/13/19 08:00 08/13/19 08:00 Oxygen Flow Rate (L/min) 40 Oxygen Delivery Method Bi-pap Weight: 68.8 kg Body Mass Index (BMI) 22.6 Intake and Output for Last 24 Hours 08/11/19 08/12/19 08/13/19 23:59 23:59 23:59 Intake Total 2550 / 2550 Balance 2550 / 2550 General: Alert, Oriented x3, Cooperative, No apparent distress - On BiPAP therapy, - - Appears stated age HEENT: Atraumatic, PERRLA, EOMI, Normocephalic, - - No scleral icterus or injection noted Oral: Moist Mucosa, No Gingival or Mucosal Lesions/ Ulcerations Neck: Supple, No JVD, No Nodes, Trachea Midline Lungs: No rhonchi, No wheeze, No rales, Diminished, - - Coarse breath sounds with BiPAP therapy. Cardiovascular: Regular rate, Regular Rhythm, Normal S1, Normal S2, Murmur - Grade 2 out of 6 systolic ejection murmur at the right sternal border, No rub noted, No Gallop Abdomen: Bowel Sounds Present, Soft, Non Tender, Non-Distended Extremities: No clubbing, No cyanosis, Edema - 2+ lower extremity edema Skin: No rashes, No breakdown Musculoskeletal: No Tenderness to Palpation of Joints or Extremities Lymphatic: No Cervical, Supraclavicular, or Inguinal Adenopathy Neurological: Cranial nerves II-XII grossly intact, Neuro grossly intact, Motor Exam 5/5 strength throughout Psych/Mental Status: Alert and oriented to time, place, person, mood and affect Laboratory Results 08/12/19 21:50: WBC 18.2 H, RBC 4.17 L, Hgb 12.2 L, Hct 39.9 L, MCV 95.7 H, MCH 29.3, MCHC 30.6 L, RDW Std Deviation 46.1 H, RDW Coeff of Earline 13.0, Plt Count 276, MPV 9.0, Immature Gran % (Auto) 0.800, Neut % (Auto) 70.5 H, Lymph % (Auto) 20.5, [place] % (Auto) 6.8, Eos % (Auto) 1.0, Baso % (Auto) 0.4, Absolute Neuts (auto) 12.8 H, Absolute Lymphs (auto) 3.73, Nucleated RBC % 0 08/12/19 21:50: Sodium 132 L, Potassium 4.3, Chloride 93 L, Carbon Dioxide 36.0 H, Anion Gap 3 L, BUN 13, Creatinine 0.79, Estim Creat Clear Calc 53.49, Est GFR (MDRD) Af Amer 120, Est GFR (MDRD) Non-Af 99, BUN/Creatinine Ratio 16.4, Glucose 207 H, Calcium 8.9, Troponin I < 0.015 08/12/19 21:50: Lactic Acid 1.4 08/12/19 21:50: B-Natriuretic Peptide 64.1 08/13/19 00:19: Specimen Type ART, Sample Site R Radial, pH 7.41, Bicarbonate Actual 34.1 H, POC Total CO2 36, Base Excess 9 H, O2 Saturation 95, O2 % 65, ABG pCO2 53.8 H, ABG pO2 76, Mo Test POS, Respiration Rate 12, O2 Delivery Device Bi / C PAP, EPAP 9, IPAP 18, Blood Gas Notified Whom ED 08/13/19 07:45: WBC 4.8, RBC 3.12 L, Hgb 9.0 L, Hct 29.3 L, MCV 93.9, MCH 28.8, MCHC 30.7 L, RDW Std Deviation 45.1 H, RDW Coeff of Earline 13.2, Plt Count 195, MPV 9.2, Immature Gran % (Auto) 0.800, Neut % (Auto) 87.9 H, Lymph % (Auto) 8.2 L, [place] % (Auto) 3.1, Eos % (Auto) 0.0, Baso % (Auto) 0.0, Absolute Neuts (auto) 4.2, Absolute Lymphs (auto) 0.39 L, Nucleated RBC % 0, Platelet Estimate ADEQUATE, Hypochromasia 1+ 08/13/19 07:45: Sodium 134 L, Potassium 4.4, Chloride 100, Carbon Dioxide 31.0, Anion Gap 3 L, BUN 12, Creatinine 0.67 L, Estim Creat Clear Calc 53.25, Est GFR (MDRD) Af Amer 145, Est GFR (MDRD) Non-Af 120, BUN/Creatinine Ratio 17.9, Glucose 159 H, Calcium 8.2 L Current Medications Albuterol/Ipratropium (Duoneb) 3 ml INHALATION Q4HWA.RT [facility] Last Admin: 08/13/19 06:34 Dose: 3 ml Documented by: Amlodipine Besylate (Norvasc) 5 mg PO DAILY [facility] Furosemide (Lasix) 40 mg PO DAILY [facility] Heparin Sodium (Porcine) (Heparin Na) 5,000 unit SC Q8 [facility] Last Admin: 08/13/19 05:57 Dose: 5,000 unit Documented by: Sodium Chloride () 250 mls @ 15 mls/hr IV .[id number] PRN PRN Reason: Saline Flush Sodium Chloride () 250 mls @ 15 mls/hr IV .[id number] PRN PRN Reason: Additional IVPB Infusion Levofloxacin (Levaquin Iv) 750 mg in 150 mls @ 100 mls/hr IV Q24 [facility] Losartan Potassium (Cozaar) 25 mg PO DAILY [facility] Methylprednisolone (Solu-Medrol) 40 mg IV Q8 [facility] Last Admin: 08/13/19 06:00 Dose: 40 mg Documented by: Sodium Chloride () 10 - 40 ml IV UD PRN PRN Reason: SALINE FLUSH Clinical Impression(s) from Imaging Studies Chest X-Ray 08/12/19 21:55 IMPRESSION: Patchy airspace opacities in the mid to lower lung tran bilaterally. This is increased when compared with the prior exam. Electronically Signed: Steven Christy, at 22:19 EST Tel , Service support , Assessment/Plan RECOMMENDATIONS: 1. BiPAP breaks as tolerated 2. Continue empiric antibiotics pending culture data available 3. Agree with IV steroids, bronchodilators. 4. Patient would benefit from diuretic therapy 5. Wean oxygen as tolerated IMPRESSIONS: 1. Acute on chronic combined respiratory failure Patient with increasing infiltrate on chest x-ray and lower extremity edema. Patient is not reporting any change in cough at this time. Patient did have significant leukocytosis at presentation, but this may be secondary to steroid therapy versus acute stress response. This has normalized by this morning. Clinical suspicion for an element of acute on chronic systolic congestive heart failure complicating overall pulmonary condition. Would continue with antibiotics until culture negative. Reasonable to continue with steroid therapy. 2. Personal history of non-small cell lung cancer/right lower lobe masslike density From review of outside medical records through the 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 There has been no evidence of cancer recurrence accor ding to the patient's pulmonary provider at [facility]. Patient was recently in rehab, and has not followed up for malignancy from my current available data. 3. 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 Patient appears to be responding to positive pressure, but will likely decompensate with taking a break if diuretics are not used. Await response to diuretic therapy. Patient also has pulmonary hypertension, likely type II, that will complicate overall condition. Patient will need a walking oximetry prior to discharge. 5. Pulmonary hypertension/hypertension/hyperlipidemia/advanced age/CODE STATUS Complicates care, management, recovery and prognosis. Physical therapy to work with patient as tolerated. Goals of care/CODE STATUS was discussed with the patient and he wishes to remain full code. Patient feels I have always improved in the past. TIME: 81 minutes critical care time spent addressing patient's acute on chronic combined respiratory failure, acute on chronic CHF, review of all data and collaboration with care team (9 AM to 10:30 AM) Code Visit 9xxxx: [id number] Critical care first hour
--- NOTE | 2019-08-13 10:40 | CASEMGMT ---
FLORINDA GABRIEL Re-admission assessment: Previous admission: Admitted 07/13/19 for Acute on Chronic Resp failure and COPD Exac. Pt discharged home w/HHC HHC: SN, PT/OT/ST and O2. Pt required increasing Oxygen at discharged and new order sent to [facility] for 4 L/M at rest and 7 L/M w/exertion. Pt re-admitted 08/13/19 w/Acute Hypoxic Resp Failure. FLORINDA GABRIEL to room to talk with pt/family. Introduced self and role of FLORINDA GABRIEL. Pt resting in bed w/BIPAP mask in place. Alert/oriented. Family at bedside. They state pt did have HHC but was just d/c'd from HHC on Sunday. Pt/family state they are not sure if they are going to want HHC again @ discharge--they want to wait to see how he is doing at that time and decide then. Pt is scheduled to have Yuriie Swallow @ [facility] tomorrow 08/14. Pt/family made aware marketing secretary can cancel this for them. Family states they will reschedule it once pt is discharged if it is not done during pt's admission. Pt/family report pt was able to make it to his follow-up appts after discharge. He has a f/u appt scheduled with Dr Powers Sep [address] Valencia in October. Family state they will bring in portable O2 tank in prior to discharge for pt to go home. Pt/family deny having any other needs/concerns at this time. PLAN: Home Follow for any increasing O2 oxygen needs @ discharge. PT/OT evals pending. Pt/family state they may be interested in HHC again when pt is discharged, but they are not sure. CM to follow. Corrie BSN FLORINDA GABRIEL
[2019-08-13] MEDS: levoFLOXacin IV 750 MG/150 ML BAG 100 MG IV (11:13)
[2019-08-13] MEDS: 0.9% Saline Lock 10 ML Syringe IV ×2 (11:14→14:50)
--- NOTE | 2019-08-13 11:36 | PCM.PN.HOSP ---
Subjective: Patient seen and examined. He was admitted with a complaint of progressive shortness of breath. He does have a history of COPD with chronic respiratory failure and is on 45 L of oxygen at home as well as severe pulmonary hypertension. EMS was called on account of shortness of breath. He has been managed for acute on chronic respiratory failure due to bilateral pneumonia and COPD exacerbation. Patient was started on BiPAP and started on IV vancomycin and aztreonam as well as steroids. Patient seen this morning in the ICU. He was still on BiPAP but said he felt much better and shortness of breath was not like he was when he came in. He denied any fever or chills, palpitations or dizziness, diarrhea or vomiting. He also denied any chest pain abdominal pain. Review of systems otherwise negative. Labs and vitals reviewed. WBC has gone down to 4.8 from 18.2 on admission. Vitals/I&O's: Vital Signs Temp Pulse Resp BP Pulse Ox 97.7 F L 85 24 H 102/52 L 93 08/13/19 05:00 08/13/19 11:00 08/13/19 11:00 08/13/19 11:00 08/13/19 11:00 Oxygen Flow Rate (L/min) 40 Oxygen Delivery Method Nasal Cannula Weight: 151 lb 10.848 oz Body Mass Index (BMI) 22.6 Intake and Output for Last 24 Hours 08/11/19 08/12/19 08/13/19 23:59 23:59 23:59 Intake Total 2550 / 2550 Balance 2550 / 2550 General: Alert, Oriented x3, Cooperative, No apparent distress HEENT: Atraumatic, PERRLA, EOMI, Normocephalic Oral: Dry Mucosa Neck: Supple, No JVD, Negative Carotid Bruits Lungs: - - decreased breath sounds bibasally, no wheezes or crackles. Abdomen: Bowel Sounds Present, Soft, Non Tender, Non-Distended, No Hepato-splenomegaly Extremities: No clubbing, No cyanosis, Edema - mild bipedal pitting edema Skin: No rashes, No breakdown Musculoskeletal: No Tenderness to Palpation of Joints or Extremities Lymphatic: No Cervical, Supraclavicular, or Inguinal Adenopathy Neurological: Cranial nerves II-XII grossly intact, Neuro grossly intact, Motor Exam 5/5 strength throughout Psych/Mental Status: Normal Affect, Appropriate, Alert and oriented to time, place, person, mood and affect Laboratory Results 08/12/19 21:50: WBC 18.2 H, RBC 4.17 L, Hgb 12.2 L, Hct 39.9 L, MCV 95.7 H, MCH 29.3, MCHC 30.6 L, RDW Std Deviation 46.1 H, RDW Coeff of Earline 13.0, Plt Count 276, MPV 9.0, Immature Gran % (Auto) 0.800, Neut % (Auto) 70.5 H, Lymph % (Auto) 20.5, [place] % (Auto) 6.8, Eos % (Auto) 1.0, Baso % (Auto) 0.4, Absolute Neuts (auto) 12.8 H, Absolute Lymphs (auto) 3.73, Nucleated RBC % 0 08/12/19 21:50: Sodium 132 L, Potassium 4.3, Chloride 93 L, Carbon Dioxide 36.0 H, Anion Gap 3 L, BUN 13, Creatinine 0.79, Estim Creat Clear Calc 53.49, Est GFR (MDRD) Af Amer 120, Est GFR (MDRD) Non-Af 99, BUN/Creatinine Ratio 16.4, Glucose 207 H, Calcium 8.9, Troponin I < 0.015 08/12/19 21:50: Lactic Acid 1.4 08/12/19 21:50: B-Natriuretic Peptide 64.1 08/13/19 00:19: Specimen Type ART, Sample Site R Radial, pH 7.41, Bicarbonate Actual 34.1 H, POC Total CO2 36, Base Excess 9 H, O2 Saturation 95, O2 % 65, ABG pCO2 53.8 H, ABG pO2 76, Mo Test POS, Respiration Rate 12, O2 Delivery Device Bi / C PAP, EPAP 9, IPAP 18, Blood Gas Notified Whom ED 08/13/19 07:45: WBC 4.8, RBC 3.12 L, Hgb 9.0 L, Hct 29.3 L, MCV 93.9, MCH 28.8, MCHC 30.7 L, RDW Std Deviation 45.1 H, RDW Coeff of Earline 13.2, Plt Count 195, MPV 9.2, Immature Gran % (Auto) 0.800, Neut % (Auto) 87.9 H, Lymph % (Auto) 8.2 L, [place] % (Auto) 3.1, Eos % (Auto) 0.0, Baso % (Auto) 0.0, Absolute Neuts (auto) 4.2, Absolute Lymphs (auto) 0.39 L, Nucleated RBC % 0, Platelet Estimate ADEQUATE, Hypochromasia 1+ 08/13/19 07:45: Sodium 134 L, Potassium 4.4, Chloride 100, Carbon Dioxide 31.0, Anion Gap 3 L, BUN 12, Creatinine 0.67 L, Estim Creat Clear Calc 53.25, Est GFR (MDRD) Af Amer 145, Est GFR (MDRD) Non-Af 120, BUN/Creatinine Ratio 17.9, Glucose 159 H, Calcium 8.2 L Diagnostic Data Chest X-Ray 08/12/19 21:55 IMPRESSION: Patchy airspace opacities in the mid to lower lung tran bilaterally. This is increased when compared with the prior exam. Electronically Signed: Steven Christy, at 22:19 EST Tel , Service support , Current Medications Albuterol/Ipratropium (Duoneb) 3 ml INHALATION Q4HWA.RT [facility] Last Admin: 08/13/19 06:34 Dose: 3 ml Documented by: Amlodipine Besylate (Norvasc) 5 mg PO DAILY [facility] Furosemide (Lasix) 40 mg PO DAILY [facility] Heparin Sodium (Porcine) (Heparin Na) 5,000 unit SC Q8 [facility] Last Admin: 08/13/19 05:57 Dose: 5,000 unit Documented by: Sodium Chloride () 250 mls @ 15 mls/hr IV .[id number] PRN PRN Reason: Saline Flush Sodium Chloride () 250 mls @ 15 mls/hr IV .[id number] PRN PRN Reason: Additional IVPB Infusion Levofloxacin (Levaquin Iv) 750 mg in 150 mls @ 100 mls/hr IV Q24 [facility] Last Admin: 08/13/19 11:13 Dose: 100 mls/hr Documented by: Losartan Potassium (Cozaar) 25 mg PO DAILY [facility] Methylprednisolone (Solu-Medrol) 40 mg IV Q8 [facility] Last Admin: 08/13/19 06:00 Dose: 40 mg Documented by: Sodium Chloride () 10 - 40 ml IV UD PRN PRN Reason: SALINE FLUSH Last Admin: 08/13/19 11:14 Dose: 20 ml Documented by: STROKE Vital Signs/Narrative: Vital Signs Pulse Resp BP Pulse Ox 08/13/19 11:00 85 24 H 102/52 L 93 08/13/19 10:00 85 23 H 116/57 L 98 08/13/19 09:00 87 22 H 109/58 L 97 08/13/19 08:00 87 23 H 114/60 93 Medical Necessity - Tobacco Use Smoking Status: Former smoker Tobacco Use: Non-smoker Assessment/Plan All Active Problems (Last Reviewed 07/31/19 @ 15:20 by Shu Chahal NP-C) COPD exacerbation (Acute) 1. Acute on chronic hypoxic respiratory failure due to pneumonia and COPD exacerbation Patient remains on BiPAP. CBC has trended down to 4.8 from 18.2 on admission. He still remains tachypneic with respiratory rate being 24. On IV Levaquin now. Vancomycin and aspirin were discontinued. On IV Solu-Medrol. Continue breathing treatments. Wean off of BiPAP as tolerated onto his baseline in 4 to 5 L of oxygen. Pulmonology on board. 2. Bilateral community-acquired pneumonia: As under 1. 3. Hypertension: On amlodipine and losartan. Blood pressure dropped to the ATC yesterday. Will hold blood pressure medications and monitor. 4. Hyponatremia: Sodium is 134. Has chronic hyponatremia. Will monitor. 5. DVT prophylaxis: Heparin Code Visit Inpatient E&M: 61269 Subs Hosp L3
[2019-08-13] MEDS: Furosemide 40 MG/4 ML Vial IV (15:43)
[2019-08-14] VITALS (35 sets, daily range): BP systolic 95–145; BP diastolic 43–63; PULSE 66–121; RESP 12–28; TEMP 36.6–36.8; O2SAT 86–100
[2019-08-14 04:15] LABS: Hematocrit 28.7 % (40-54); Lymphocyte % 8.5 % (19-41); Mean Corp Hgb Conc 31.4 g/dL (32-36); Mean Corpuscular Hgb 29.5 pg (27.0-32.0); Mean Corpuscular Volume 94.1 fL (80-94); Monocyte# 0.33 X10^3/uL; Monocyte% 5.6 % (0-10); NRBC Flagged by Analyzer 0 % (0-5); Neutrophil % 85.4 % (47-70); POSITIVE DIFFERENTIAL YES; Platelet Count 210 K/mm3 (150-450); RBC Distribution Width CV 13.5 % (11.6-14.6); RBC Distribution Width SD 46.5 fl (35.1-43.9); Red Blood Count 3.05 M/mm3 (4.6-6.2); White Blood Count 5.9 K/mm3 (4.4-11.0)
[2019-08-14 04:16] LABS: Differential Indicated SCAN CRITERIA MET
[2019-08-14 04:54] LABS: Differential Comment SCANNED
[2019-08-14 05:09] LABS: BUN 17 mg/dL (7-18); Creatinine, Serum 0.69 mg/dL (0.70-1.30); Estimated Creatinine Clearance 53.25 ml/min; Glucose 158 mg/dL (74-106)
[2019-08-14 05:10] LABS: Anion Gap 1 (5-15); BUN/Creat Ratio 24.5 RATIO (10-20); Calcium,Total 8.5 mg/dL (8.5-10.1); Chloride 99 mmol/L (98-107); EST Glomerular Filtration Rate 116 mL/min (>60); Est Glom Filt Rate - Afr Amer 140 mL/min (>60); Sodium Level 136 mmol/L (136-145)
[2019-08-14] MEDS: Heparin Injection (Vial) 5,000 UNIT/ML VIAL 5000 UNIT SC ×3 (05:13→21:08)
[2019-08-14] MEDS: Ipratropium/Albuterol Sulfate 3 ML AMPUL.NEB INHALATION ×4 (06:48→19:05)
--- NOTE | 2019-08-14 07:07 | PCM.PN.INT ---
Subjective: Patient did okay overnight. Patient did have significant dyspnea on exertion yesterday requiring BiPAP rescue. Patient was on Ventimask for much of the evening. Patient reports subjective improvement in dyspnea. Intermittently productive cough of white sputum reported. General: Alert, Oriented x3, Cooperative, - - Mild conversational dyspnea. HEENT: Atraumatic, PERRLA, EOMI, Normocephalic, - - No scleral icterus or injection noted Oral: Moist Mucosa, No Gingival or Mucosal Lesions/ Ulcerations, - - Ventimask in place Neck: Supple, No JVD, No Nodes, Trachea Midline Lungs: No rhonchi, No wheeze, No rales, Diminished, - - Symmetric expansion. No dullness to percussion. Cardiovascular: Regular rate, Regular Rhythm, Normal S1, Normal S2, No murmurs, No rub noted, No Gallop Abdomen: Bowel Sounds Present, Soft, Non Tender, Non-Distended Extremities: No cyanosis, Clubbing, Edema - Slightly improved lower extremities Skin: - - No change compared to previous Musculoskeletal: No Tenderness to Palpation of Joints or Extremities Lymphatic: No Cervical, Supraclavicular, or Inguinal Adenopathy Neurological: Cranial nerves II-XII grossly intact, Neuro grossly intact, Motor Exam 5/5 strength throughout Psych/Mental Status: Alert and oriented to time, place, person, mood and affect Vital Signs Temp Pulse Resp BP Pulse Ox 36.7 C 69 20 H 112/55 L 97 08/14/19 03:00 08/14/19 06:00 08/14/19 06:00 08/14/19 06:00 08/14/19 06:00 Oxygen Flow Rate (L/min) 40 Oxygen Delivery Method Venturi Mask Weight: 64 kg Body Mass Index (BMI) 22.6 Intake and Output for Last 24 Hours 08/12/19 08/13/19 08/14/19 23:59 23:59 23:59 Intake Total 2700 / 2700 Output Total 1825 / 2125 600 / 600 Balance 875 / 575 -600 / -600 Labs (Last 48 Hours) 08/12/19 08/12/19 08/12/19 21:50 21:50 21:50 WBC 18.2 H RBC 4.17 L Hgb 12.2 L Hct 39.9 L MCV 95.7 H MCH 29.3 MCHC 30.6 L RDW Std Deviation 46.1 H RDW Coeff of Earline 13.0 Plt Count 276 MPV 9.0 Immature Gran % (Auto) 0.800 Neut % (Auto) 70.5 H Lymph % (Auto) 20.5 [place] % (Auto) 6.8 Eos % (Auto) 1.0 Baso % (Auto) 0.4 Absolute Neuts (auto) 12.8 H Absolute Lymphs (auto) 3.73 Nucleated RBC % 0 Differential Comment Platelet Estimate Hypochromasia Specimen Type Sample Site pH Bicarbonate Actual POC Total CO2 Base Excess O2 Saturation O2 % ABG pCO2 ABG pO2 Mo Test Respiration Rate O2 Delivery Device EPAP IPAP Blood Gas Notified Whom Sodium 132 L Potassium 4.3 Chloride 93 L Carbon Dioxide 36.0 H Anion Gap 3 L BUN 13 Creatinine 0.79 Estim Creat Clear Calc 53.49 Est GFR (MDRD) Af Amer 120 Est GFR (MDRD) Non-Af 99 BUN/Creatinine Ratio 16.4 Glucose 207 H Lactic Acid 1.4 Calcium 8.9 Troponin I < 0.015 B-Natriuretic Peptide 08/12/19 08/13/19 08/13/19 21:50 00:19 07:45 WBC 4.8 RBC 3.12 L Hgb 9.0 L Hct 29.3 L MCV 93.9 MCH 28.8 MCHC 30.7 L RDW Std Deviation 45.1 H RDW Coeff of Earline 13.2 Plt Count 195 MPV 9.2 Immature Gran % (Auto) 0.800 Neut % (Auto) 87.9 H Lymph % (Auto) 8.2 L [place] % (Auto) 3.1 Eos % (Auto) 0.0 Baso % (Auto) 0.0 Absolute Neuts (auto) 4.2 Absolute Lymphs (auto) 0.39 L Nucleated RBC % 0 Differential Comment Platelet Estimate ADEQUATE Hypochromasia 1+ Specimen Type ART Sample Site R Radial pH 7.41 Bicarbonate Actual 34.1 H POC Total CO2 36 Base Excess 9 H O2 Saturation 95 O2 % 65 ABG pCO2 53.8 H ABG pO2 76 Mo Test POS Respiration Rate 12 O2 Delivery Device Bi / C PAP EPAP 9 IPAP 18 Blood Gas Notified Whom ED Sodium Potassium Chloride Carbon Dioxide Anion Gap BUN Creatinine Estim Creat Clear Calc Est GFR (MDRD) Af Amer Est GFR (MDRD) Non-Af BUN/Creatinine Ratio Glucose Lactic Acid Calcium Troponin I B-Natriuretic Peptide 64.1 08/13/19 08/14/19 08/14/19 07:45 04:00 04:00 WBC 5.9 RBC 3.05 L Hgb 9.0 L Hct 28.7 L MCV 94.1 H MCH 29.5 MCHC 31.4 L RDW Std Deviation 46.5 H RDW Coeff of Earline 13.5 Plt Count 210 MPV 9.0 Immature Gran % (Auto) 0.500 Neut % (Auto) 85.4 H Lymph % (Auto) 8.5 L [place] % (Auto) 5.6 Eos % (Auto) 0.0 Baso % (Auto) 0.0 Absolute Neuts (auto) 5.0 Absolute Lymphs (auto) 0.50 L Nucleated RBC % 0 Differential Comment SCANNED Platelet Estimate Hypochromasia Specimen Type Sample Site pH Bicarbonate Actual POC Total CO2 Base Excess O2 Saturation O2 % ABG pCO2 ABG pO2 Mo Test Respiration Rate O2 Delivery Device EPAP IPAP Blood Gas Notified Whom Sodium 134 L 136 Potassium 4.4 4.0 Chloride 100 99 Carbon Dioxide 31.0 36.0 H Anion Gap 3 L 1 L BUN 12 17 Creatinine 0.67 L 0.69 L Estim Creat Clear Calc 53.25 53.25 Est GFR (MDRD) Af Amer 145 140 Est GFR (MDRD) Non-Af 120 116 BUN/Creatinine Ratio 17.9 24.5 H Glucose 159 H 158 H Lactic Acid Calcium 8.2 L 8.5 Troponin I B-Natriuretic Peptide Medical Necessity - Tobacco Use Smoking Status: Former smoker Tobacco Use: Non-smoker Assessment/Plan All Active Problems (Last Reviewed 07/31/19 @ 15:20 by Shu Chahal, SERVICE DELIVERY CONSULTANT-C) COPD exacerbation (Acute) RECOMMENDATIONS: 1. BiPAP breaks as tolerated. Airvo can be used for breaks. 2. Possible discontinuation of antibiotics if culture negative at 48 hours 3. Wean IV steroids, continue bronchodilators. 4. Patient would benefit from diuretic therapy. Possibly transition to twice daily later today 5. Wean oxygen as tolerated 6. Possible transfer from the intensive care unit later today. IMPRESSIONS: 1. Acute on chronic combined respiratory failure Patient with increasing infiltrate on chest x-ray and lower extremity edema. Patient is not reporting any change in cough at this time. Patient did have significant leukocytosis at presentation, but this may be secondary to steroid therapy versus acute stress response. This has normalized by this morning. Clinical suspicion for an element of acute on chronic systolic congestive heart failure complicating overall pulmonary condition more than acute infection. Antibiotics can be discontinued once negative at 48 hours. Steroids should be weaned and may be discontinued in 5 days if patient continues to improve with diuresis 2. 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 There has been no evidence of cancer recurrence according to the patient's pulmonary provider at [facility]. Patient was recently in rehab, and has not followed up for malignancy from my current available data. 3. 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 Patient appears to be responding to positive pressure, but will likely decompensate with taking a break if diuretics are not used. Patient does appear to be responding to diuretic therapy. Patient also has pulmonary hypertension, likely type II, that will complicate overall condition. Patient will need a walking oximetry prior to discharge. 5. Pulmonary hypertension/hypertension/hyperlipidemia/advanced age/CODE STATUS Complicates care, management, recovery and prognosis. Physical therapy to work with patient as tolerated. Goals of care/CODE STATUS was discussed with the patient and he wishes to remain full code. Patient feels I have always improved in the past. Code Visit Inpatient E&M: 24804 [facility] Hosp L3
[2019-08-14] MEDS: levoFLOXacin IV 750 MG/150 ML BAG 100 MG IV (09:56)
[2019-08-14] MEDS: 0.9% Saline Lock 10 ML Syringe IV ×2 (09:57→21:11)
[2019-08-14] MEDS: Furosemide 40 MG/4 ML Vial IV (10:02)
--- NOTE | 2019-08-14 11:05 | PN_ITS ---
Subjective: Patient seen and examined. Feels better today. He has been weaned off of BiPAP and was on 10 L by nonrebreather mask at time of review. He denied any chest pain or palpitation, dizziness, abdominal pain, diarrhea or vomiting. Review of systems otherwise negative. Labs and vitals reviewed. He has remained hemodynamically stable. WBC is 5.9 and hemoglobin is 9 today. Platelets are 210. Vitals/I&O's: Vital Signs Temp Pulse Resp BP Pulse Ox 97.8 F 91 18 107/56 L 93 08/14/19 08:00 08/14/19 09:00 08/14/19 09:00 08/14/19 09:00 08/14/19 09:00 Oxygen Flow Rate (L/min) 40 Oxygen Delivery Method Venturi Mask Weight: 141 lb 1.533 oz Body Mass Index (BMI) 22.6 Intake and Output for Last 24 Hours 08/12/19 08/13/19 08/14/19 23:59 23:59 23:59 Intake Total 2700 / 2700 Output Total 1825 / 2125 600 / 600 Balance 875 / 575 -600 / -600 General: Alert, Oriented x3, Cooperative, No apparent distress HEENT: Atraumatic, PERRLA, EOMI, Normocephalic Oral: Dry Mucosa Neck: Supple, No JVD, Negative Carotid Bruits Lungs: - - decreased breath sounds bibasally, no wheezes or crackles.on 10L of oxygen by nonrebreather mask Abdomen: Bowel Sounds Present, Soft, Non Tender, Non-Distended, No Hepato- splenomegaly Extremities: No clubbing, No cyanosis, Edema - mild bipedal pitting edema Skin: No rashes, No breakdown Musculoskeletal: No Tenderness to Palpation of Joints or Extremities Lymphatic: No Cervical, Supraclavicular, or Inguinal Adenopathy Neurological: Cranial nerves II-XII grossly intact, Neuro grossly intact, Motor Exam 5/5 strength throughout Psych/Mental Status: Normal Affect, Appropriate, Alert and oriented to time, place, person, mood and affect Laboratory Results 08/14/19 04:00: WBC 5.9, RBC 3.05 L, Hgb 9.0 L, Hct 28.7 L, MCV 94.1 H, MCH 29.5, MCHC 31.4 L, RDW Std Deviation 46.5 H, RDW Coeff of Earline 13.5, Plt Count 210, MPV 9.0, Immature Gran % (Auto) 0.500, Neut % (Auto) 85.4 H, Lymph % (Auto) 8.5 L, [place] % (Auto) 5.6, Eos % (Auto) 0.0, Baso % (Auto) 0.0, Absolute Neuts (auto) 5.0, Absolute Lymphs (auto) 0.50 L, Nucleated RBC % 0, Differential Comment SCANNED 08/14/19 04:00: Sodium 136, Potassium 4.0, Chloride 99, Carbon Dioxide 36.0 H, Anion Gap 1 L, BUN 17, Creatinine 0.69 L, Estim Creat Clear Calc 53.25, Est GFR (MDRD) Af Amer 140, Est GFR (MDRD) Non-Af 116, BUN/Creatinine Ratio 24.5 H, Glucose 158 H, Calcium 8.5 Diagnostic Data Chest X-Ray 08/12/19 21:55 IMPRESSION: Patchy airspace opacities in the mid to lower lung tran bilaterally. This is increased when compared with the prior exam. Electronically Signed: Jaelyn, at 22:19 EST Tel , Service support , Current Medications Albuterol/Ipratropium (Duoneb) 3 ml INHALATION Q4HWA.RT [facility] Last Admin: 08/14/19 11:02 Dose: 3 ml Documented by: Amlodipine Besylate (Norvasc) 5 mg PO DAILY [facility] Last Admin: 08/14/19 10:04 Dose: Not Given Documented by: Furosemide (Lasix) 40 mg IV DAILY [facility] Last Admin: 08/14/19 10:02 Dose: 40 mg Documented by: Heparin Sodium (Porcine) (Heparin Na) 5,000 unit SC Q8 [facility] Last Admin: 08/14/19 05:13 Dose: 5,000 unit Documented by: Sodium Chloride () 250 mls @ 15 mls/hr IV .[id number] PRN PRN Reason: Saline Flush Sodium Chloride () 250 mls @ 15 mls/hr IV .[id number] PRN PRN Reason: Additional IVPB Infusion Levofloxacin (Levaquin Iv) 750 mg in 150 mls @ 100 mls/hr IV Q24 [facility] Last Admin: 08/14/19 09:56 Dose: 100 mls/hr Documented by: Methylprednisolone (Solu-Medrol) 40 mg IV Q12 [facility] Sodium Chloride () 10 - 40 ml IV UD PRN PRN Reason: SALINE FLUSH Last Admin: 08/14/19 09:57 Dose: 10 ml Documented by: STROKE Vital Signs/Narrative: Vital Signs Temp Pulse Resp BP Pulse Ox 08/14/19 09:00 91 18 107/56 L 93 08/14/19 08:00 97.8 F 73 21 H 116/62 92 Medical Necessity - Tobacco Use Smoking Status: Former smoker Tobacco Use: Non-smoker Assessment/Plan All Active Problems (Last Reviewed 07/31/19 @ 15:20 by Shu Chahal NP-C) COPD exacerbation (Acute) 1. Acute on chronic hypoxic respiratory failure due to pneumonia and COPD exacerbation * weaned off BIPAP and now on oxygen by nonrebreather mask * on IV levaquin and steroids * wbc is 5 today * continue breathing treatments and wean down to basleine 4-5L of oxygen * pulmonology on board * 2. Bilateral community-acquired pneumonia: As under 1. 3. Hypertension: On amlodipine and losartan. had transient hypotension yesterday which has resolved. 4. Hyponatremia: resolved. Na is 136. 5. DVT prophylaxis: Heparin Code Visit Inpatient E&M: 17352 Subs Hosp L2
--- NOTE | 2019-08-14 11:13 | PN_ITS ---
Vitals/I&O's: Vital Signs Temp Pulse Resp BP Pulse Ox 97.8 F 99 28 H 108/55 L 98 08/14/19 08:00 08/14/19 11:00 08/14/19 11:00 08/14/19 11:00 08/14/19 11:00 Oxygen Flow Rate (L/min) 6 Oxygen Delivery Method Nasal Cannula Weight: 141 lb 1.533 oz Body Mass Index (BMI) 22.6 Intake and Output for Last 24 Hours 08/12/19 08/13/19 08/14/19 23:59 23:59 23:59 Intake Total 2700 / 2700 Output Total 1825 / 2125 600 / 600 Balance 875 / 575 -600 / -600 Laboratory Results 08/14/19 04:00: WBC 5.9, RBC 3.05 L, Hgb 9.0 L, Hct 28.7 L, MCV 94.1 H, MCH 29.5, MCHC 31.4 L, RDW Std Deviation 46.5 H, RDW Coeff of Earline 13.5, Plt Count 210, MPV 9.0, Immature Gran % (Auto) 0.500, Neut % (Auto) 85.4 H, Lymph % (Auto) 8.5 L, [place] % (Auto) 5.6, Eos % (Auto) 0.0, Baso % (Auto) 0.0, Absolute Neuts (auto) 5.0, Absolute Lymphs (auto) 0.50 L, Nucleated RBC % 0, Differential Comment SCANNED 08/14/19 04:00: Sodium 136, Potassium 4.0, Chloride 99, Carbon Dioxide 36.0 H, Anion Gap 1 L, BUN 17, Creatinine 0.69 L, Estim Creat Clear Calc 53.25, Est GFR (MDRD) Af Amer 140, Est GFR (MDRD) Non-Af 116, BUN/Creatinine Ratio 24.5 H, Glucose 158 H, Calcium 8.5 Current Medications Albuterol/Ipratropium (Duoneb) 3 ml INHALATION Q4HWA.RT [facility] Last Admin: 08/14/19 11:02 Dose: 3 ml Documented by: Amlodipine Besylate (Norvasc) 5 mg PO DAILY [facility] Last Admin: 08/14/19 10:04 Dose: Not Given Documented by: Furosemide (Lasix) 40 mg IV DAILY [facility] Last Admin: 08/14/19 10:02 Dose: 40 mg Documented by: Heparin Sodium (Porcine) (Heparin Na) 5,000 unit SC Q8 [facility] Last Admin: 08/14/19 05:13 Dose: 5,000 unit Documented by: Sodium Chloride () 250 mls @ 15 mls/hr IV .[id number] PRN PRN Reason: Saline Flush Sodium Chloride () 250 mls @ 15 mls/hr IV .[id number] PRN PRN Reason: Additional IVPB Infusion Levofloxacin (Levaquin Iv) 750 mg in 150 mls @ 100 mls/hr IV Q24 [facility] Last Admin: 08/14/19 09:56 Dose: 100 mls/hr Documented by: Methylprednisolone (Solu-Medrol) 40 mg IV Q12 [facility] Sodium Chloride () 10 - 40 ml IV UD PRN PRN Reason: SALINE FLUSH Last Admin: 08/14/19 09:57 Dose: 10 ml Documented by: STROKE Vital Signs/Narrative: Vital Signs Temp Pulse Resp BP Pulse Ox 08/14/19 11:00 99 28 H 108/55 L 98 08/14/19 10:00 90 22 H 107/49 L 92 08/14/19 09:00 91 18 107/56 L 93 08/14/19 08:00 97.8 F 73 21 H 116/62 92 Medical Necessity - Tobacco Use Smoking Status: Former smoker Tobacco Use: Non-smoker Assessment/Plan All Active Problems (Last Reviewed 07/31/19 @ 15:20 by Shu Chahal NP-C) COPD exacerbation (Acute)
[2019-08-15] VITALS (27 sets, daily range): BP systolic 101–165; BP diastolic 52–74; PULSE 53–124; RESP 12–29; TEMP 36.6–36.9; O2SAT 90–98
[2019-08-15 04:11] LABS: Absolute Lymphocyte Count 0.56 X10^3/uL (0.83-4.51); Absolute Neutrophil Count 7.9 X10^3/uL (2.0-7.7); Lymphocyte # 0.56 X10^3/ul (4.0); Lymphocyte % 6.4 % (19-41); Mean Corpuscular Hgb 29.2 pg (27.0-32.0); Mean Corpuscular Volume 94.2 fL (80-94); Mean Platelet Vol. 8.6 fl (6.2-12.0); Monocyte# 0.28 X10^3/uL; Monocyte% 3.2 % (0-10); NRBC Flagged by Analyzer 0 % (0-5); Neutrophil # 7.86 X10^3/uL (2.7-7.7); Neutrophil % 90.1 % (47-70); POSITIVE DIFFERENTIAL YES; Platelet Count 213 K/mm3 (150-450); RBC Distribution Width CV 13.8 % (11.6-14.6); RBC Distribution Width SD 47.5 fl (35.1-43.9); Red Blood Count 3.08 M/mm3 (4.6-6.2); White Blood Count 8.7 K/mm3 (4.4-11.0)
[2019-08-15 04:17] LABS: Differential Indicated SCAN CRITERIA MET
[2019-08-15 04:29] LABS: Anion Gap -2 (5-15); BUN 22 mg/dL (7-18); BUN/Creat Ratio 34.8 RATIO (10-20); Calcium,Total 8.5 mg/dL (8.5-10.1); Chloride 100 mmol/L (98-107); Creatinine, Serum 0.63 mg/dL (0.70-1.30); EST Glomerular Filtration Rate 129 mL/min (>60); Est Glom Filt Rate - Afr Amer 156 mL/min (>60); Estimated Creatinine Clearance 51.56 ml/min; Glucose 157 mg/dL (74-106); Potassium 4.3 mmol/L (3.5-5.1); Sodium Level 137 mmol/L (136-145)
[2019-08-15] MEDS: Heparin Injection (Vial) 5,000 UNIT/ML VIAL 5000 UNIT SC ×3 (05:09→20:35)
[2019-08-15 05:39] LABS: Differential Comment SCANNED
[2019-08-15] MEDS: Ipratropium/Albuterol Sulfate 3 ML AMPUL.NEB INHALATION ×5 (06:31→22:51)
--- NOTE | 2019-08-15 07:14 | PN_ITS ---
Subjective: Patient did okay overnight. Patient has been back and forth between BiPAP and 6 L nasal cannula. Patient reports some lower abdominal discomfort that he attributes to constipation. Patient states he will to typically take MiraLAX at home for this condition. Patient states his last bowel movement was on the day of admission. General: Alert, Oriented x3, Cooperative, No apparent distress, - - Minimal conversational dyspnea HEENT: Atraumatic, PERRLA, EOMI, Normocephalic, - - No scleral icterus or injection noted Oral: Moist Mucosa, No Gingival or Mucosal Lesions/ Ulcerations Neck: Supple, No JVD, No Nodes, Trachea Midline Lungs: No rhonchi, No rales, Diminished, Wheezes, - - Symmetric expansion. Cardiovascular: Regular rate, Regular Rhythm, Normal S1, Normal S2, No murmurs, Murmur - Grade 2 out of 6 systolic ejection murmur at the apex, No rub noted, No Gallop Abdomen: Bowel Sounds Present, Soft, Non Tender, Non-Distended Extremities: No cyanosis, Clubbing, Edema - Improving Skin: No rashes, No breakdown Musculoskeletal: No Tenderness to Palpation of Joints or Extremities Lymphatic: No Cervical, Supraclavicular, or Inguinal Adenopathy Neurological: Cranial nerves II-XII grossly intact, Neuro grossly intact, Motor Exam 5/5 strength throughout Psych/Mental Status: Alert and oriented to time, place, person, mood and affect Vital Signs Temp Pulse Resp BP Pulse Ox 36.9 C 74 19 H 119/63 96 08/15/19 04:00 08/15/19 04:00 08/15/19 04:00 08/15/19 04:00 08/15/19 05:21 Oxygen Flow Rate (L/min) 6 Oxygen Delivery Method Nasal Cannula Weight: 64.2 kg Body Mass Index (BMI) 22.6 Intake and Output for Last 24 Hours 08/13/19 08/14/19 08/15/19 23:59 23:59 23:59 Intake Total 2700 / 2700 460 / 520 60 / 60 Output Total 1825 / 2125 1450 / 1650 200 / 200 Balance 875 / 575 -990 / -1130 -140 / -140 Labs (Last 48 Hours) 08/13/19 08/13/19 08/14/19 07:45 07:45 04:00 WBC 4.8 5.9 RBC 3.12 L 3.05 L Hgb 9.0 L 9.0 L Hct 29.3 L 28.7 L MCV 93.9 94.1 H MCH 28.8 29.5 MCHC 30.7 L 31.4 L RDW Std Deviation 45.1 H 46.5 H RDW Coeff of Earline 13.2 13.5 Plt Count 195 210 MPV 9.2 9.0 Immature Gran % (Auto) 0.800 0.500 Neut % (Auto) 87.9 H 85.4 H Lymph % (Auto) 8.2 L 8.5 L [place] % (Auto) 3.1 5.6 Eos % (Auto) 0.0 0.0 Baso % (Auto) 0.0 0.0 Absolute Neuts (auto) 4.2 5.0 Absolute Lymphs (auto) 0.39 L 0.50 L Nucleated RBC % 0 0 Differential Comment SCANNED Platelet Estimate ADEQUATE Hypochromasia 1+ Sodium 134 L Potassium 4.4 Chloride 100 Carbon Dioxide 31.0 Anion Gap 3 L BUN 12 Creatinine 0.67 L Estim Creat Clear Calc 53.25 Est GFR (MDRD) Af Amer 145 Est GFR (MDRD) Non-Af 120 BUN/Creatinine Ratio 17.9 Glucose 159 H Calcium 8.2 L 08/14/19 08/15/19 08/15/19 04:00 04:05 04:05 WBC 8.7 RBC 3.08 L Hgb 9.0 L Hct 29.0 L MCV 94.2 H MCH 29.2 MCHC 31.0 L RDW Std Deviation 47.5 H RDW Coeff of Earline 13.8 Plt Count 213 MPV 8.6 Immature Gran % (Auto) 0.300 Neut % (Auto) 90.1 H Lymph % (Auto) 6.4 L [place] % (Auto) 3.2 Eos % (Auto) 0.0 Baso % (Auto) 0.0 Absolute Neuts (auto) 7.9 H Absolute Lymphs (auto) 0.56 L Nucleated RBC % 0 Differential Comment SCANNED Platelet Estimate Hypochromasia Sodium 136 137 Potassium 4.0 4.3 Chloride 99 100 Carbon Dioxide 36.0 H 39.0 H Anion Gap 1 L -2 L BUN 17 22 H Creatinine 0.69 L 0.63 L Estim Creat Clear Calc 53.25 51.56 Est GFR (MDRD) Af Amer 140 156 Est GFR (MDRD) Non-Af 116 129 BUN/Creatinine Ratio 24.5 H 34.8 H Glucose 158 H 157 H Calcium 8.5 8.5 Medical Necessity - Tobacco Use Smoking Status: Former smoker Tobacco Use: Non-smoker Assessment/Plan All Active Problems (Last Reviewed 07/31/19 @ 15:20 by Shu Chahal NP-C) COPD exacerbation (Acute) RECOMMENDATIONS: 1. BiPAP breaks as tolerated. Airvo can be used for breaks. 2. Possible discontinuation of antibiotics if culture negative at 48 hours 3. Transition to prednisone therapy, continue bronchodilators. 4. Transition to p.o. diuretics 5. Wean oxygen as tolerated 6. Okay to transfer from the intensive care unit IMPRESSIONS: 1. Acute on chronic combined respiratory failure Patient with increasing infiltrate on chest x-ray and lower extremity edema. Patient is not reporting any change in cough at this time. Patient did have significant leukocytosis at presentation, but this may be secondary to steroid therapy versus acute stress response. Clinical suspicion for an element of acute on chronic systolic congestive heart failure complicating overall pulmonary condition more than acute infection. Antibiotics can be discontinued once negative at 48 hours. Steroids should be weaned and may be discontinued in 5 days. Will decrease steroid therapy as patient appears to be developing contraction alkalosis. 2. 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 There has been no evidence of cancer recurrence according to the patient's pulmonary provider at [facility]. Patient was recently in rehab, and has not followed up for malignancy from my current available data. 3. 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 Patient no longer required BiPAP during the day. Would continue with sleep given advanced respiratory and cardiac disease. Patient also has pulmonary hypertension, likely type II, that will complicate overall condition. Patient will need a walking oximetry prior to discharge. 5. Pulmonary hypertension/hypertension/hyperlipidemia/advanced age/CODE STATUS Complicates care, management, recovery and prognosis. Physical therapy to work with patient as tolerated. Goals of care/CODE STATUS was discussed with the patient and he wishes to remain full code. Patient feels I have always improved in the past. Patient will be given MiraLAX for reported constipation. Code Visit Inpatient E&M: 10126 Subs Hosp L3
[2019-08-15] MEDS: Polyethylene Glycol 3350 17 GM PACKET PO (08:40)
[2019-08-15] MEDS: predniSONE 20 MG Tablet 40 MG PO (08:43)
[2019-08-15] MEDS: Furosemide 40 MG Tablet PO (08:43)
[2019-08-15] MEDS: amLODIPine 5 MG Tablet PO (08:44)
[2019-08-15] MEDS: levoFLOXacin IV 750 MG/150 ML BAG 100 MG IV (08:46)
[2019-08-15] MEDS: 0.9% Saline Lock 10 ML Syringe IV (08:48)
--- NOTE | 2019-08-15 11:45 | PN_ITS ---
Subjective: Patient seen and examined. He looks much better today and had no complaints. Shortness of breath that improved and he was on 6 L of oxygen by nasal cannula. Review of systems otherwise negative. Labs and vitals reviewed. He has remained hemodynamically stable. Heart rate this morning was up to 111 and respiratory rate was 28. Vitals/I&O's: Vital Signs Temp Pulse Resp BP Pulse Ox 98.5 F 111 H 28 H 165/74 H 96 08/15/19 04:00 08/15/19 09:00 08/15/19 09:00 08/15/19 09:00 08/15/19 08:00 Oxygen Flow Rate (L/min) 6 Oxygen Delivery Method Nasal Cannula Weight: 141 lb 8.588 oz Body Mass Index (BMI) 22.6 Intake and Output for Last 24 Hours 08/13/19 08/14/19 08/15/19 23:59 23:59 23:59 Intake Total 2700 / 2700 460 / 520 60 / 60 Output Total 1825 / 2125 1450 / 1650 200 / 200 Balance 875 / 575 -990 / -1130 -140 / -140 General: Alert, Oriented x3, Cooperative, No apparent distress HEENT: Atraumatic, PERRLA, EOMI, Normocephalic Oral: Dry Mucosa Neck: Supple, No JVD, Negative Carotid Bruits Lungs: - - decreased breath sounds bibasally, no wheezes or crackles.on 10L of oxygen by nonrebreather mask Abdomen: Bowel Sounds Present, Soft, Non Tender, Non-Distended, No Hepato- splenomegaly Extremities: No clubbing, No cyanosis, Edema - mild bipedal pitting edema Skin: No rashes, No breakdown Musculoskeletal: No Tenderness to Palpation of Joints or Extremities Lymphatic: No Cervical, Supraclavicular, or Inguinal Adenopathy Neurological: Cranial nerves II-XII grossly intact, Neuro grossly intact, Motor Exam 5/5 strength throughout Psych/Mental Status: Normal Affect, Appropriate, Alert and oriented to time, place, person, mood and affect Microbiology Past 72 Hours 08/12/19 22:10 Blood Culture (Wb) #2 - Anticubital Left Blood Culture - Preliminary No growth in 48 hours. 08/12/19 22:11 Blood Culture (Wb) - Left Wrist Blood Culture - Preliminary No growth in 48 hours. Laboratory Results 08/15/19 04:05: WBC 8.7, RBC 3.08 L, Hgb 9.0 L, Hct 29.0 L, MCV 94.2 H, MCH 29.2, MCHC 31.0 L, RDW Std Deviation 47.5 H, RDW Coeff of Earline 13.8, Plt Count 213, MPV 8.6, Immature Gran % (Auto) 0.300, Neut % (Auto) 90.1 H, Lymph % (Auto) 6.4 L, [place] % (Auto) 3.2, Eos % (Auto) 0.0, Baso % (Auto) 0.0, Absolute Neuts (auto) 7.9 H, Absolute Lymphs (auto) 0.56 L, Nucleated RBC % 0, Differential Comment SCANNED 08/15/19 04:05: Sodium 137, Potassium 4.3, Chloride 100, Carbon Dioxide 39.0 H, Anion Gap -2 L, BUN 22 H, Creatinine 0.63 L, Estim Creat Clear Calc 51.56, Est GFR (MDRD) Af Amer 156, Est GFR (MDRD) Non-Af 129, BUN/Creatinine Ratio 34.8 H, Glucose 157 H, Calcium 8.5 Diagnostic Data Chest X-Ray 08/12/19 21:55 IMPRESSION: Patchy airspace opacities in the mid to lower lung tran bilaterally. This is increased when compared with the prior exam. Electronically Signed: Jaelyn, at 22:19 EST Tel , Service support , Current Medications Albuterol/Ipratropium (Duoneb) 3 ml INHALATION Q4HWA.RT [facility] Last Admin: 08/15/19 10:44 Dose: 3 ml Documented by: Amlodipine Besylate (Norvasc) 5 mg PO DAILY [facility] Last Admin: 08/15/19 08:44 Dose: 5 mg Documented by: Furosemide (Lasix) 40 mg PO DAILY [facility] Last Admin: 08/15/19 08:43 Dose: 40 mg Documented by: Heparin Sodium (Porcine) (Heparin Na) 5,000 unit SC Q8 [facility] Last Admin: 08/15/19 05:09 Dose: 5,000 unit Documented by: Sodium Chloride () 250 mls @ 15 mls/hr IV .[id number] PRN PRN Reason: Saline Flush Sodium Chloride () 250 mls @ 15 mls/hr IV .[id number] PRN PRN Reason: Additional IVPB Infusion Nutritional Formula (Lactose Free) (Ensure Enlive) 120 ml PO 4X/DAY [facility] Last Admin: 08/15/19 08:46 Dose: Not Given Documented by: Prednisone () 40 mg PO DAILY@0800 [facility] Last Admin: 08/15/19 08:43 Dose: 40 mg Documented by: Sodium Chloride () 10 - 40 ml IV UD PRN PRN Reason: SALINE FLUSH Last Admin: 08/15/19 08:48 Dose: 10 ml Documented by: STROKE Vital Signs/Narrative: Vital Signs Pulse Resp BP Pulse Ox 08/15/19 09:00 111 H 28 H 165/74 H 08/15/19 08:00 101 H 25 H 137/62 H 96 Medical Necessity - Tobacco Use Smoking Status: Former smoker Tobacco Use: Non-smoker Assessment/Plan All Active Problems (Last Reviewed 07/31/19 @ 15:20 by Shu Chahal, [employer]CH[employer]IC-C) COPD exacerbation (Acute) 1. Acute on chronic hypoxic respiratory failure due to pneumonia and COPD exacerbation * weaned off BIPAP; on oxygen by nasal canula at 6L * on IV levaquin and steroids * was tachycardic and tachypneic today, though he says he felt fine * continue breathing treatments and wean down to baseline 4-5L of oxygen as tolerated * pulmonology on board * 2. Bilateral community-acquired pneumonia: As under 1. 3. Hypertension: On amlodipine and losartan. 4. Hyponatremia: resolved. 5. DVT prophylaxis: Heparin Code Visit Inpatient E&M: 55051 Subs Hosp L2
--- NOTE | 2019-08-15 13:30 | RAD_ITS ---
STUDY: SWALLOWING STUDY REASON FOR EXAM: Male, 83 years old. DYSPHAGIA, H/O SILENT ASPIRATION TECHNIQUE: The examination was performed with Speech Pathology in attendance. Under fluoroscopic observation, the patient ingested thin barium, thick barium, barium pudding, and barium coated cracker. FLUOROSCOPY TIME: 2:04 minutes/seconds. 1849 fluoroscopic images were obtained. RADIOLOGIST INVOLVEMENT: Dysphagia. COMPARISON: Comparison is made with prior study dated June 02, 2019. FINDINGS: The following was observed during swallowing of the various mixtures of barium: Thin Barium: Transient penetration with ingestion of thin liquids. Barium Pudding: There was no evidence of aspiration or laryngeal penetration. Barium Coated Cracker: There was no evidence of aspiration or laryngeal penetration. RAD/Swallowing Function w/Video IMPRESSION: Transient penetration with ingestion of thin liquids. The swallow study findings were discussed with the patient by the speech pathologist at the conclusion of the examination. Please see speech pathology report for more information and recommendations. Electronically Signed: Caleb Hartman, at 14:21 EST , Service support ,
--- NOTE | 2019-08-15 14:05 | SP.MBSS_ITS ---
PRIMARY / SECONDARY DIAGNOSIS: dysphagia (R13.12) REFERRING PHYSICIAN: Dr. Anoop Powers MD. CURRENT DIET: pureed textures, nectar thickened liquids DENTITION: upper / lower dentures present, ill-fitting lower dentures MENTAL STATUS: sufficient for participation RESPIRATORY STATUS: O2 at 6L/min via nasal cannula. REASON FOR REFERRAL: The Patient is an 83 year old male referred for a modified barium swallow (MBS) study to objectively assess the Patients oropharyngeal swallow function under fluoroscopy secondary to concerns for persistent aspiration, with a history of silent aspiration under fluoroscopy; currently admitted secondary to acute on chronic combined respiratory failure. MEDICAL HISTORY: Chronic obstructive pulmonary disease, prior lung cancer status post irradiation, bullous emphysema, chronic respiratory failure, non-rheumatic tricuspid valve insufficiency, diastolic dysfunction, nonrheumatic aortic valve stenosis, paroxysmal atrial flutter, conduction disorder of the heart, aortic valve disorder, mobitz type 2 second degree AV block, presence of cardiac pacemaker, essential hypertension, pulmonary hypertension, and gastroesophageal reflux disease. PREVIOUS MODIFIED BARIUM SWALLOW STUDY: 06/02/2019 MBS revealed moderate oropharyngeal dysphagia (DSRS: 4; SPS: 5) w/ grade III SILENT aspiration of thin liquids. ADDITIONAL OBJECTIVE ASSESSMENT RESULTS: 08/12/2019 chest x-ray revealed patchy airspace opacities in the mid to lower lung tran bilaterally. ASSESSMENT PARAMETERS: The Patient participated in a Modified Barium Swallow (MBS) study on 08/15/2019. Dr. Hartman was the radiologist present for this evaluation. This study was recorded in the lateral view and images were sent to PACs for storage. Scoring was completed through each trial using the 8-point Penetration-Aspiration Scale (PAS) and summarized via the Modified Barium Swallow Impairment Profile (MBSImP) and the Bolus Residue Scale (BRS), with severity scoring through the Dysphagia Severity Rating Scale (DSRS) and the Swallowing Performance Scale (SPS), and recommended diet textures through the International Dysphagia Diet Standardisation Initiative (IDDSI). RESULTS OF THE EVALUATION: The Patient presents with mild to moderate oropharyngeal dysphagia (DSRS: 3; SPS: 4) with intermittent shallow transient penetration of thin liquids. OBJECTIVE ASSESSMENT OF SWALLOW FUNCTION (QUANTITATIVE ? PER TRIAL): PENETRATION / ASPIRATION SCALE (LUGO): 1 = does not enter airway 2 = enters airway/above vocal folds/ejected 3 = enters airway/above vocal folds/not ejected 4 = enters airway/contacts vocal folds/ejected 5 = enters airway/contacts vocal folds/not ejected 6 = enters airway/below vocal folds/ejected 7 = enters airway/below vocal folds/not ejected despite effort 8 = enters airway/below vocal folds/no effort PENETRATION / ASPIRATION SCALE (SCORE): Thin liquid - 5 mL tsp.: 2 Thin liquids via cup (single sip): 3 Thin liquids via cup (single sip): 1 Thin liquids via cup (single sip): 1 Thin liquids via straw (sequential swallows): 1 Thin liquids via straw (single sip): 1 Pudding via spoon: 1 Regular textured cookie: 1 Thin liquids via straw (single sip): 1 Thin liquids via straw (single sip): 1 OBJECTIVE ASSESSMENT OF SWALLOW FUNCTION (QUANTITATIVE ? AGGREGATE): MODIFIED BARIUM SWALLOW IMPAIRMENT PROFILE (MBSImP) LABIAL SEAL: 0 (of 4) no labial escape TONGUE CONTROL: 0 (of 3) cohesive bolus BOLUS PREPARATION / MASTICATION: 1 (of 3) slow prolonged; complete recollection BOLUS TRANSPORT / LINGUAL MOTION: 3 (of 4) repetitive / disorganized motion ORAL RESIDUE: 2 (of 4) residue collection on oral structures INITIATION OF PHARYNGEAL SWALLOW: 1 (of 4) valleculae SOFT PALATE ELEVATION: 0 (of 4) no bolus between soft palate & pharyngeal wall LARYNGEAL ELEVATION: 0 (of 3) complete superior movement / approximation ANTERIOR HYOID EXCURSION: 1 (of 2) partial movement EPIGLOTTIC MOVEMENT: 1 (of 2) partial inversion LARYNGEAL VESTIBULE CLOSURE: 1 (of 2) incomplete closure PHARYNGEAL STRIPPING WAVE: 1 (of 2) present / diminished PE SEGMENT OPENIN (of 3) complete distension / duration; no obstruction TONGUE BASE RETRACTION: 2 (of 4) narrow column of contrast PHARYNGEAL RESIDUE: 2 (of 4) collection of residue ESOPHAGEAL BOLUS CLEARANCE: could not view BOLUS RESIDUE SCALE (BRS): 2 (of 6) residue in valleculae OBJECTIVE ASSESSMENT OF SWALLOW FUNCTION (SEVERITY GRADING): DYSPHAGIA SEVERITY RATING SCALE (DSRS): 3 (mild-moderate) SWALLOWING PERFORMANCE SCALE (SPS): 4 (mild to moderate) OBJECTIVE ASSESSMENT OF SWALLOW FUNCTION (QUALITATIVE): ORAL PREPARATORY PHASE: mild (albeit effective) mastication inefficiency with prolonged mastication; sufficient anterior oral containment during oral manipulation; impaired management of breathing / bolus formation and deglutition, with mild dyspnea following 2-3 liquid trials (recovered after short 30 second break). ORAL TRANSITIONAL PHASE: no presence of transitional incompetence; overall sufficient bolus transportation with transient mild lingual discoordination with pudding viscosity; overall sufficient oral clearance; no presence of premature posterior bolus loss. PHARYNGEAL PHASE: no signs of pharyngeal dyssynchrony; inconsistent hyolaryngeal excursion and laryngeal vestibule closure leading to inconsistent laryngeal vestibule pressure generated to completely expel penetrated material (one occasion); no clinically significant pharyngeal dysmotility; no signs of velopharyngeal impairments; initial transient shallow prandial penetration with thin liquids; no further penetration / aspiration throughout trials. ESOPHAGEAL PHASE: no obvious esophageal phase abnormalities observed. RESPONSE TO STRATEGIES: all deficits managed successfully / ameliorated with reduction in bolus rate / volume adjustments, and diet texture adjustments (bolus / breathing management) DYSPHAGIA ASSOCIATED MEDICAL CONSIDERATIONS / INTERVENTION CONSIDERATIONS: No aspiration appreciated throughout trials, unable to definitively rule out silent aspiration. While objective assessment results suggests he will tolerate advancement to thin liquids, he does remain at a higher risk for aspiration and asphyxiation during the acute care admission when considering his current level of supplemental oxygenation demands; a cautious approach to advancement is advised. RECOMMENDATIONS FOR INTERVENTION: The Patient requires continued skilled speech-language intervention targeting diet texture management and training / implementation of recommended compensatory strategies; training and implementation of a oral care protocol to reduce the effects of xerostomia and improve / maintain the integrity of the oral mucosa reducing the risk of aspiration related pulmonary complications; Patient / caregiver education regarding elías and post- irradiation dysphagia and associated symptomology; Patient and caregiver education regarding dysphagia associated with chronic obstructive pulmonary disease (COPD). POST ASSESSMENT EDUCATION: Results and recommendations were discussed with the Patient and Patients family immediately following MBS completion, with the Patient and Patients family verbalizing understanding and agreement with all recommendations and education provided. We again discussed factors impacting effects of aspiration, to include: the quantity of aspiration, the depth of aspiration (trachea or distal airways), and the physical properties of the aspirate. We again discussed consequences of oropharyngeal dysphagia, to include pulmonary complications from tracheobronchial aspiration; potential for airway obstruction / asphyxiation; inadequate oral intake because of dysphagia; reduced liquid intake resulting in dehydration; reduced caloric intake resulting in unintentional and potentially medically complicating loss of weight; impairment in mental and physical condition; and complications in overall course of care. DIET TEXTURE RECOMMENDATIONS: Will recommend a pureed textured (IDDSI: 4), thin liquid diet (IDDSI: 0) diet RECOMMENDED COMPENSATORY STRATEGIES: Supervision with assistance as needed, reduced bolus volume / rate of ingestion, liquid chaser at reasonable intervals, seated upright at 90 degrees during PO intake, remain upright for 30-60 minutes post meal (GERD precaution), medications one at a time with a liquid chaser. IMAGE COUNT: [id number] Eduar Grayson M.A., KRISHNA-SKI TOW OPERATOR, CBIS MBSImP Certified, LSVT Certified [facility] Speech-Language Pathology Department [email or web address]
--- NOTE | 2019-08-15 15:42 | NURSING ---
report called to [facility] for transfer to room 105, notified of room number, transferred per chair with o2 & belongings
[2019-08-15] MEDS: Acetaminophen 325 MG Tablet 650 MG PO (20:30)
[2019-08-16] VITALS (20 sets, daily range): BP systolic 98–142; BP diastolic 41–81; PULSE 56–110; RESP 12–22; TEMP 36.6–37.1; O2SAT 94–98
[2019-08-16 06:15] LABS: Absolute Lymphocyte Count 1.55 X10^3/uL (0.83-4.51); Absolute Neutrophil Count 4.5 X10^3/uL (2.0-7.7); Basophil# 0.01 X10^3/uL; Basophil% 0.1 % (0-1); Eosinophil# 0.03 X10^3/uL; Eosinophils% 0.4 % (0-5); Hematocrit 32.7 % (40-54); Lymphocyte # 1.55 X10^3/ul (4.0); Lymphocyte % 22.7 % (19-41); Mean Corp Hgb Conc 30.6 g/dL (32-36); Mean Corpuscular Hgb 29.2 pg (27.0-32.0); Mean Corpuscular Volume 95.6 fL (80-94); Mean Platelet Vol. 9.5 fl (6.2-12.0); Monocyte# 0.75 X10^3/uL; NRBC Flagged by Analyzer 0 % (0-5); Neutrophil # 4.47 X10^3/uL (2.7-7.7); Neutrophil % 65.4 % (47-70); Platelet Count 222 K/mm3 (150-450); RBC Distribution Width CV 13.8 % (11.6-14.6); RBC Distribution Width SD 48.3 fl (35.1-43.9); Red Blood Count 3.42 M/mm3 (4.6-6.2); White Blood Count 6.8 K/mm3 (4.4-11.0)
[2019-08-16 06:45] LABS: Anion Gap 1 (5-15); BUN 18 mg/dL (7-18); BUN/Creat Ratio 31.6 RATIO (10-20); Calcium,Total 8.7 mg/dL (8.5-10.1); Chloride 99 mmol/L (98-107); Creatinine, Serum 0.57 mg/dL (0.70-1.30); EST Glomerular Filtration Rate 146 mL/min (>60); Est Glom Filt Rate - Afr Amer 176 mL/min (>60); Estimated Creatinine Clearance 50.51 ml/min; Glucose 84 mg/dL (74-106); Potassium 3.5 mmol/L (3.5-5.1); Sodium Level 138 mmol/L (136-145)
[2019-08-16] MEDS: Heparin Injection (Vial) 5,000 UNIT/ML VIAL 5000 UNIT SC ×3 (07:44→21:13)
--- NOTE | 2019-08-16 08:18 | PN_ITS ---
Subjective: Patient did okay overnight. Patient did discontinue BiPAP at approximately 3 AM and required 6 L nasal cannula while sleeping. Patient states he feels significantly improved this morning from a respiratory standpoint and has been weaned down to 4-1/2 L. Patient does use 4 to 6 L at baseline during the day. No significant cough has been reported. Objective: Patient did have a swallow evaluation showing pur?ed and thin liquids. Patient is being followed by speech. Radiology is reporting some penetration with thin liquids. - Physical Exam Vitals/I&O's: Vital Signs Temp Pulse Resp BP Pulse Ox 36.7 C 79 22 H 109/77 98 08/16/19 04:00 08/16/19 07:42 08/16/19 07:42 08/16/19 04:00 08/16/19 07:40 Oxygen Flow Rate (L/min) 4.5 Oxygen Delivery Method Nasal Cannula Weight: 62.7 kg Body Mass Index (BMI) 22.6 Intake and Output for Last 24 Hours 08/14/19 08/15/19 08/16/19 23:59 23:59 23:59 Intake Total 460 / 520 870 / 970 150 / 150 Output Total 1450 / 1650 1500 / 1700 300 / 300 Balance -990 / -1130 -630 / -730 -150 / -150 General: Alert, Oriented x3, Cooperative, No apparent distress, Well developed, Well nourished, - - Speaking in full sentences. HEENT: Atraumatic, PERRLA, EOMI, Normocephalic, - - No scleral icterus or injection noted Oral: Moist Mucosa, No Gingival or Mucosal Lesions/ Ulcerations Neck: Supple, No JVD, No Nodes, Trachea Midline Lungs: No rhonchi, No wheeze, No rales, Diminished, - - Symmetric expansion. No dullness to percussion. Cardiovascular: Regular rate, Regular Rhythm, Normal S1, Normal S2, Murmur - Unchanged, No rub noted, No Gallop Abdomen: Bowel Sounds Present, Soft, Non Tender, Non-Distended Extremities: No cyanosis, No edema, Capillary Refill Less than 3 Seconds, Clubbing Skin: No rashes, No breakdown Musculoskeletal: No Tenderness to Palpation of Joints or Extremities Lymphatic: No Cervical, Supraclavicular, or Inguinal Adenopathy Neurological: Cranial nerves II-XII grossly intact, Neuro grossly intact, Motor Exam 5/5 strength throughout Psych/Mental Status: Alert and oriented to time, place, person, mood and affect Microbiology Past 72 Hours 08/12/19 22:10 Blood Culture (Wb) #2 - Anticubital Left Blood Culture - Preliminary No growth in 48 hours. 08/12/19 22:11 Blood Culture (Wb) - Left Wrist Blood Culture - Preliminary No growth in 48 hours. Laboratory Results 08/16/19 05:33: WBC 6.8, RBC 3.42 L, Hgb 10.0 L, Hct 32.7 L, MCV 95.6 H, MCH 29.2, MCHC 30.6 L, RDW Std Deviation 48.3 H, RDW Coeff of Earline 13.8, Plt Count 222, MPV 9.5, Immature Gran % (Auto) 0.400, Neut % (Auto) 65.4, Lymph % (Auto) 22.7, Haines % (Auto) 11.0 H, Eos % (Auto) 0.4, Baso % (Auto) 0.1, Absolute Neuts (auto) 4.5, Absolute Lymphs (auto) 1.55, Nucleated RBC % 0 08/16/19 05:33: Sodium 138, Potassium 3.5, Chloride 99, Carbon Dioxide 38.0 H, Anion Gap 1 L, BUN 18, Creatinine 0.57 L, Estim Creat Clear Calc 50.51, Est GFR (MDRD) Af Amer 176, Est GFR (MDRD) Non-Af 146, BUN/Creatinine Ratio 31.6 H, Glucose 84, Calcium 8.7 Current Medications Acetaminophen (Tylenol) 650 mg PO Q6H PRN PRN PRN Reason: Pain or Fever Last Admin: 08/15/19 20:30 Dose: 650 mg Documented by: Albuterol/Ipratropium (Duoneb) 3 ml INHALATION Q4HWA.RT [facility] Last Admin: 08/15/19 22:51 Dose: 3 ml Documented by: Amlodipine Besylate (Norvasc) 5 mg PO DAILY [facility] Last Admin: 08/15/19 08:44 Dose: 5 mg Documented by: Furosemide (Lasix) 40 mg PO DAILY [facility] Last Admin: 08/15/19 08:43 Dose: 40 mg Documented by: Heparin Sodium (Porcine) (Heparin Na) 5,000 unit SC Q8 [facility] Last Admin: 08/16/19 07:44 Dose: 5,000 unit Documented by: Sodium Chloride () 250 mls @ 15 mls/hr IV .[id number] PRN PRN Reason: Saline Flush Sodium Chloride () 250 mls @ 15 mls/hr IV .[id number] PRN PRN Reason: Additional IVPB Infusion Nutritional Formula (Lactose Free) (Ensure Enlive) 120 ml PO 4X/DAY [facility] Last Admin: 08/15/19 20:31 Dose: Not Given Documented by: Prednisone () 40 mg PO DAILY@0800 [facility] Last Admin: 08/15/19 08:43 Dose: 40 mg Documented by: Sodium Chloride () 10 - 40 ml IV UD PRN PRN Reason: SALINE FLUSH Last Admin: 08/15/19 08:48 Dose: 10 ml Documented by: Clinical Impression(s) from Imaging Studies Videofluoroscopic Swallow 08/15/19 13:30 IMPRESSION: Transient penetration with ingestion of thin liquids. The swallow study findings were discussed with the patient by the speech pathologist at the conclusion of the examination. Please see speech pathology report for more information and recommendations. Electronically Signed: Caleb Hartman, at 14:21 EST , Service support , Medical Necessity - Tobacco Use Smoking Status: Former smoker Tobacco Use: Non-smoker Assessment/Plan All Active Problems (Last Reviewed 07/31/19 @ 15:20 by Shu Chahal, EUGENE-C) COPD exacerbation (Acute) RECOMMENDATIONS: 1. BiPAP with all sleep. 2. Steroids can be discontinued at 5 days without a taper 3. Walking oximetry prior to discharge 4. Follow-up with nurse practitioner 2 weeks after discharge 5. Okay to discharge from a pulmonary perspective IMPRESSIONS: 1. Acute on chronic combined respiratory failure Patient with increasing infiltrate on chest x-ray and lower extremity edema. Patient is not reporting any change in cough at this time. Patient did have significant leukocytosis at presentation, but this may be secondary to steroid therapy versus acute stress response. Clinical suspicion for an element of acute on chronic systolic congestive heart failure complicating overall pulmonary condition more than acute infection. Antibiotics have been discontinued and patient tolerating well. Clinical suspicion for increased oxygen requirements at night secondary to hypoventilation due to advanced lung disease with sleep. Stressed to the patient that BiPAP should be used with all sleep to avoid this desaturation. Persistent desaturation can lead to elevation of pulmonary artery pressures and fluid retention. Check a walking oximetry prior to discharge and be sure patient requires 6 L or less with ambulation. Patient does have supplemental oxygen at home. 2. 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 There has been no evidence of cancer recurrence according to the patient's pulmonary provider at [facility]. Patient was recently in rehab, and has not followed up for malignancy from my current available data. 3. 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 Patient no longer required BiPAP during the day. Would continue with sleep given advanced respiratory and cardiac disease. Patient also has pulmonary hypertension, likely type II, that will complicate overall condition. Patient will need a walking oximetry prior to discharge. 5. Pulmonary hypertension/hypertension/hyperlipidemia/advanced age/CODE STATUS Complicates care, management, recovery and prognosis. Physical therapy to work with patient as tolerated. Goals of care/CODE STATUS was discussed with the patient and he wishes to remain full code. Patient feels I have always improved in the past. MiraLAX as needed will help with constipation. Code Visit Inpatient E&M: 57766 Subs Hosp L2
[2019-08-16] MEDS: predniSONE 20 MG Tablet 40 MG PO (08:43)
[2019-08-16] MEDS: Furosemide 40 MG Tablet PO (08:43)
[2019-08-16] MEDS: Ipratropium/Albuterol Sulfate 3 ML AMPUL.NEB INHALATION ×3 (11:17→20:46)
--- NOTE | 2019-08-16 11:38 | PCM.PN.HOSP ---
Subjective: Patient seen and examined. He feels much better and shortness of breath is improved. He is down to 4.5 L of oxygen by nasal cannula. Review of symptoms otherwise negative. Labs and vitals reviewed. Vitals/I&O's: Vital Signs Temp Pulse Resp BP Pulse Ox 98.2 F 87 22 H 142/81 H 94 08/16/19 10:22 08/16/19 11:17 08/16/19 11:17 08/16/19 10:22 08/16/19 10:22 Oxygen Flow Rate (L/min) 4.5 Oxygen Delivery Method Nasal Cannula Weight: 138 lb 3.677 oz Body Mass Index (BMI) 22.6 Intake and Output for Last 24 Hours 08/14/19 08/15/19 08/16/19 23:59 23:59 23:59 Intake Total 460 / 520 870 / 970 150 / 150 Output Total 1450 / 1650 1500 / 1700 300 / 300 Balance -990 / -1130 -630 / -730 -150 / -150 General: Alert, Oriented x3, Cooperative, No apparent distress HEENT: Atraumatic, PERRLA, EOMI, Normocephalic Oral: Dry Mucosa Neck: Supple, No JVD, Negative Carotid Bruits Lungs: - - decreased breath sounds bibasally, no wheezes or crackles. on 4.5L of oxygen by nasal canula Abdomen: Bowel Sounds Present, Soft, Non Tender, Non-Distended, No Hepato-splenomegaly Extremities: No clubbing, No cyanosis, Edema - mild bipedal pitting edema Skin: No rashes, No breakdown Musculoskeletal: No Tenderness to Palpation of Joints or Extremities Lymphatic: No Cervical, Supraclavicular, or Inguinal Adenopathy Neurological: Cranial nerves II-XII grossly intact, Neuro grossly intact, Motor Exam 5/5 strength throughout Psych/Mental Status: Normal Affect, Appropriate, Alert and oriented to time, place, person, mood and affect Microbiology Past 72 Hours 08/12/19 22:10 Blood Culture (Wb) #2 - Anticubital Left Blood Culture - Preliminary No growth in 48 hours. 08/12/19 22:11 Blood Culture (Wb) - Left Wrist Blood Culture - Preliminary No growth in 48 hours. Laboratory Results 08/16/19 05:33: WBC 6.8, RBC 3.42 L, Hgb 10.0 L, Hct 32.7 L, MCV 95.6 H, MCH 29.2, MCHC 30.6 L, RDW Std Deviation 48.3 H, RDW Coeff of Earline 13.8, Plt Count 222, MPV 9.5, Immature Gran % (Auto) 0.400, Neut % (Auto) 65.4, Lymph % (Auto) 22.7, [place] % (Auto) 11.0 H, Eos % (Auto) 0.4, Baso % (Auto) 0.1, Absolute Neuts (auto) 4.5, Absolute Lymphs (auto) 1.55, Nucleated RBC % 0 08/16/19 05:33: Sodium 138, Potassium 3.5, Chloride 99, Carbon Dioxide 38.0 H, Anion Gap 1 L, BUN 18, Creatinine 0.57 L, Estim Creat Clear Calc 50.51, Est GFR (MDRD) Af Amer 176, Est GFR (MDRD) Non-Af 146, BUN/Creatinine Ratio 31.6 H, Glucose 84, Calcium 8.7 Current Medications Acetaminophen (Tylenol) 650 mg PO Q6H PRN PRN PRN Reason: Pain or Fever Last Admin: 08/15/19 20:30 Dose: 650 mg Documented by: Albuterol/Ipratropium (Duoneb) 3 ml INHALATION Q4HWA.RT [facility] Last Admin: 08/16/19 11:17 Dose: 3 ml Documented by: Amlodipine Besylate (Norvasc) 5 mg PO DAILY [facility] Last Admin: 08/15/19 08:44 Dose: 5 mg Documented by: Furosemide (Lasix) 40 mg PO DAILY [facility] Last Admin: 08/16/19 08:43 Dose: 40 mg Documented by: Heparin Sodium (Porcine) (Heparin Na) 5,000 unit SC Q8 [facility] Last Admin: 08/16/19 07:44 Dose: 5,000 unit Documented by: Sodium Chloride () 250 mls @ 15 mls/hr IV .[id number] PRN PRN Reason: Saline Flush Sodium Chloride () 250 mls @ 15 mls/hr IV .[id number] PRN PRN Reason: Additional IVPB Infusion Nutritional Formula (Lactose Free) (Ensure Enlive) 120 ml PO 4X/DAY [facility] Last Admin: 01/11/20 08:43 Dose: 120 ml Documented by: Prednisone () 40 mg PO DAILY@0800 [facility] Last Admin: 08/16/19 08:43 Dose: 40 mg Documented by: Sodium Chloride () 10 - 40 ml IV UD PRN PRN Reason: SALINE FLUSH Last Admin: 08/15/19 08:48 Dose: 10 ml Documented by: STROKE Vital Signs/Narrative: Vital Signs Temp Pulse Resp BP Pulse Ox 08/16/19 11:17 87 22 H 08/16/19 11:00 89 08/16/19 10:22 98.2 F 97 17 142/81 H 94 08/16/19 08:22 98.1 F 105 H 20 H 98/41 L 94 08/16/19 07:42 79 22 H 08/16/19 07:40 98 Medical Necessity - Tobacco Use Smoking Status: Former smoker Tobacco Use: Non-smoker Assessment/Plan All Active Problems (Last Reviewed 07/31/19 @ 15:20 by Shu Chahal NP-C) COPD exacerbation (Acute) 1. Acute on chronic hypoxic respiratory failure due to pneumonia and COPD exacerbation weaned off BIPAP; on oxygen by nasal canula at 4.5L on PO prednisone; levaquin discontinued. continue breathing treatments and wean down to baseline 4-5L of oxygen as tolerated pulmonology on board Blood culture showed no growth at 48 hours. BNP was only 65 at admission, so I am not convinced he had acute on chronic heart failure 2. Bilateral community-acquired pneumonia: As under 1. 3. Hypertension: On amlodipine and losartan. 4. Hyponatremia: resolved. 5. DVT prophylaxis: Heparin Code Visit Inpatient E&M: 85188 Subs Hosp L2
[2019-08-16] MEDS: amLODIPine 5 MG Tablet PO (11:46)
[2019-08-16] MEDS: Acetaminophen 325 MG Tablet 650 MG PO (14:00)
[2019-08-16] MEDS: 0.9% Saline Lock 10 ML Syringe IV (14:03)
--- NOTE | 2019-08-16 15:08 | CM.UR ---
Met with patient to discuss restarting HHC. States that he was actually discharged the day before his admission from [facility]. Denies that he needs them to restart at discharge. Eugene Cooley RN, CCM.
[2019-08-17] VITALS (12 sets, daily range): BP systolic 96–120; BP diastolic 51–72; PULSE 69–103; RESP 12–20; TEMP 36.5–36.8; O2SAT 86–96
[2019-08-17] MEDS: Ipratropium/Albuterol Sulfate 3 ML AMPUL.NEB INHALATION ×3 (00:04→11:17)
[2019-08-17] MEDS: Heparin Injection (Vial) 5,000 UNIT/ML VIAL 5000 UNIT SC (05:11)
--- NOTE | 2019-08-17 08:28 | PCM.PN.PUL ---
Subjective: Patient did well overnight. Patient reports that he feels subjectively back to his baseline from a respiratory standpoint. However, patient has noted significant abdominal discomfort despite having a bowel movement. Patient has noted increased burping, but no concomitant nausea or vomiting. - Physical Exam Vitals/I&O's: Vital Signs Temp Pulse Resp BP Pulse Ox 36.6 C 87 20 H 118/72 96 08/17/19 02:10 08/17/19 07:04 08/17/19 03:19 08/17/19 02:10 08/17/19 03:19 Oxygen Flow Rate (L/min) 5 Oxygen Delivery Method Bi-pap Weight: 61.1 kg Body Mass Index (BMI) 22.6 Intake and Output for Last 24 Hours 08/15/19 08/16/19 08/17/19 23:59 23:59 23:59 Intake Total 870 / 970 760 / 760 120 / 120 Output Total 1500 / 1700 2325 / 2325 175 / 175 Balance -630 / -730 -1565 / -1565 -55 / -55 General: Alert, Oriented x3, Cooperative, No apparent distress, - - No conversational dyspnea noted HEENT: Atraumatic, PERRLA, EOMI, - - No scleral icterus or injection Oral: Moist Mucosa, No Gingival or Mucosal Lesions/ Ulcerations Neck: Supple, No JVD, No Nodes, Trachea Midline Lungs: No rhonchi, No wheeze, No rales, Diminished, - - Symmetric expansion. No dullness to percussion. Cardiovascular: Regular rate, Regular Rhythm, Normal S1, Normal S2, Murmur, No rub noted, No Gallop Abdomen: Bowel Sounds Present, Soft, Non Tender, Distended, - - No rebound or guarding noted. No fluid wave appreciated. Extremities: No cyanosis, No edema, Clubbing Skin: No rashes, No breakdown Musculoskeletal: No Tenderness to Palpation of Joints or Extremities Lymphatic: No Cervical, Supraclavicular, or Inguinal Adenopathy Neurological: Cranial nerves II-XII grossly intact, Neuro grossly intact, Motor Exam 5/5 strength throughout Psych/Mental Status: Alert and oriented to time, place, person, mood and affect Microbiology Past 72 Hours 08/12/19 22:10 Blood Culture (Wb) #2 - Anticubital Left Blood Culture - Preliminary No growth in 48 hours. 08/12/19 22:11 Blood Culture (Wb) - Left Wrist Blood Culture - Preliminary No growth in 48 hours. Current Medications Acetaminophen (Tylenol) 650 mg PO Q6H PRN PRN PRN Reason: Pain or Fever Last Admin: 08/16/19 14:00 Dose: 650 mg Documented by: Albuterol/Ipratropium (Duoneb) 3 ml INHALATION Q4HWA.RT [facility] Last Admin: 08/17/19 07:05 Dose: 3 ml Documented by: Amlodipine Besylate (Norvasc) 5 mg PO DAILY [facility] Last Admin: 08/16/19 11:46 Dose: 5 mg Documented by: Furosemide (Lasix) 40 mg PO DAILY [facility] Last Admin: 08/16/19 08:43 Dose: 40 mg Documented by: Heparin Sodium (Porcine) (Heparin Na) 5,000 unit SC Q8 [facility] Last Admin: 08/17/19 05:11 Dose: 5,000 unit Documented by: Sodium Chloride () 250 mls @ 15 mls/hr IV .[id number] PRN PRN Reason: Saline Flush Sodium Chloride () 250 mls @ 15 mls/hr IV .[id number] PRN PRN Reason: Additional IVPB Infusion Nutritional Formula (Lactose Free) (Ensure Enlive) 120 ml PO 4X/DAY [facility] Last Admin: 08/16/19 21:13 Dose: 120 ml Documented by: Polyethylene Glycol (Miralax) 17 gm PO DAILY PRN PRN Reason: Constipation Prednisone () 40 mg PO DAILY@0800 [facility] Last Admin: 08/16/19 08:43 Dose: 40 mg Documented by: Sodium Chloride () 10 - 40 ml IV UD PRN PRN Reason: SALINE FLUSH Last Admin: 08/16/19 14:03 Dose: 10 ml Documented by: Medical Necessity - Tobacco Use Smoking Status: Former smoker Tobacco Use: Non-smoker Assessment/Plan All Active Problems (Last Reviewed 07/31/19 @ 15:20 by Shu Chahal NP-C) COPD exacerbation (Acute) RECOMMENDATIONS: 1. BiPAP with all sleep. 2. Steroids can be discontinued at 5 days without a taper 3. Walking oximetry prior to discharge 4. Follow-up with nurse practitioner 2 weeks after discharge 5. Okay to discharge from a pulmonary perspective IMPRESSIONS: 1. Acute on chronic combined respiratory failure Patient with increasing infiltrate on chest x-ray and lower extremity edema. Patient is not reporting any change in cough at this time. Patient did have significant leukocytosis at presentation, but this may be secondary to steroid therapy versus acute stress response. Clinical suspicion for an element of acute on chronic systolic congestive heart failure complicating overall pulmonary condition more than acute infection. Antibiotics have been discontinued and patient tolerating well. Clinical suspicion for increased oxygen requirements at night secondary to hypoventilation due to advanced lung disease with sleep. Stressed to the patient that BiPAP should be used with all sleep to avoid this desaturation. Persistent desaturation can lead to elevation of pulmonary artery pressures and fluid retention. Check a walking oximetry prior to discharge and be sure patient requires 6 L or less with ambulation. Patient does have supplemental oxygen at home. Okay to discontinue steroids from my perspective after a 5-day burst. 2. 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 There has been no evidence of cancer recurrence according to the patient's pulmonary provider at [facility]. Patient was recently in rehab, and has not followed up for malignancy from my current available data. 3. 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 Patient no longer required BiPAP during the day. Would continue with sleep given advanced respiratory and cardiac disease. Patient also has pulmonary hypertension, likely type II, that will complicate overall condition. Patient will need a walking oximetry prior to discharge. 5. Pulmonary hypertension/hypertension/hyperlipidemia/advanced age/CODE STATUS Complicates care, management, recovery and prognosis. Physical therapy to work with patient as tolerated. Goals of care/CODE STATUS was discussed with the patient and he wishes to remain full code. Patient feels I have always improved in the past. MiraLAX as needed will help with constipation. Code Visit Inpatient E&M: 89708 Subs Hosp L2
[2019-08-17] MEDS: Furosemide 40 MG Tablet PO (09:21)
[2019-08-17] MEDS: predniSONE 20 MG Tablet 40 MG PO (09:21)
[2019-08-17] MEDS: Polyethylene Glycol 3350 17 GM PACKET PO (11:09)
[2019-08-17] MEDS: amLODIPine 5 MG Tablet PO (11:09)
--- NOTE | 2019-08-17 11:47 | DCINST_ITS ---
- Discharge Diagnoses Current Active Problems: Current Active and Chronic Problems (Last Reviewed 07/31/19 @ 15:20 by CAITLIN Love) Acute and chronic respiratory failure (Chronic) You will use the following diet at home:: Cardiac Your food should be the consistency of: Regular Your liquids should be the consistency of: Regular/Thin Discharge Activity: Return to Normal Activity Weight Bearing Status: Weight bearing as tolerated Call your doctor if you observe: Fever of 101 or Higher, Shortness of breath, Dizziness, Swelling in the ankles, Chest pain, Increased palpitations (irregular heartbeat) Instructions: What Is COPD?, Chronic Lung Disease: Becoming More Active, Care for COPD, Treatments for COPD Additional Instructions: counseled to use BIPAP every night to help with shortness of breath Allergies/Adverse Reactions: Allergies ampicillin Allergy (Verified 08/13/19 02:55) Anaphylaxis azithromycin Allergy (Verified 08/13/19 02:55) Rash codeine Allergy (Verified 08/13/19 02:55) Rash penicillin G Allergy (Verified 08/13/19 02:55) Rash Sulfa (Sulfonamide Antibiotics) Allergy (Verified 08/13/19 02:55) Rash sulfamethoxazole [From Bactrim] Allergy (Verified 08/13/19 02:55) Rash trimethoprim [From Bactrim] Allergy (Verified 08/13/19 02:55) Rash Medications to take at Discharge Acetaminophen [Tylenol Tablet] 650 mg PO Q6H PRN PRN #0 tab 10/24/16 Losartan Potassium 25 mg PO DAILY #0 06/12/17 Albuterol IH (ProAir) [Proair Hfa] 2 puff INHALATION Q4H PRN PRN #0 11/01/18 Albuterol Aerosols [Ventolin Aerosols] 2.5 mg INHALATION Q4H PRN PRN #90 vial.neb. 07/17/19 Umeclidinium Brm/Vilanterol Tr [Anoro Ellipta 62.5-25 Mcg INH] 1 puff INHALATION DAILY 08/12/19 Amlodipine [Norvasc] 5 mg PO DAILY 08/13/19 Furosemide [Lasix] 40 mg PO DAILY 08/13/19 Ipratropium/Albuterol Sulfate [Duoneb] 3 ml INHALATION Q8 08/13/19 predniSONE tablet 40 mg PO DAILY@0800 5 Days #10 tab 08/17/19 The following prescriptions were given: predniSONE tablet 40 mg PO DAILY@0800 5 Days #10 tab Transmission Status: Pending to [facility] Primary Care Physician: Misael Valencia MD [Primary Care Provider] - Please follow up with your Primary Care Physician in: one week Test Results: Test results from this visit will be discussed in further detail at your follow- up appointment, if applicable. Please Follow Up With: Anoop Powers MD When: 1-2 weeks Proposed Discharge Date: 08/17/19
--- NOTE | 2019-08-17 15:37 | PCM.DC.SUM ---
Discharge Date and Diagnosis Date of Admission: 08/13/19 Date of Discharge: 08/17/19 - Primary Discharge Diagnosis acute on chronic hypoxic respiratory failure COPD exacerbation community acquired pneumonia - Secondary Discharge Diagnosis Chronic Problems (Last Reviewed 07/31/19 @ 15:20 by Shu Chahal NP-C) Acute and chronic respiratory failure (Chronic) Diastolic dysfunction (Chronic) 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) Essential hypertension (Chronic) Paroxysmal atrial flutter (Chronic) Non-rheumatic tricuspid valve insufficiency (Chronic) Aortic valve stenosis, nonrheumatic (Chronic) 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 This is increased when compared with the prior exam. Electronically Signed: Steven Christy, at 22:19 EST Tel , Service support , Videofluoroscopic Swallow 08/15/19 13:30 IMPRESSION: Transient penetration with ingestion of thin liquids. The swallow study findings were discussed with the patient by the speech pathologist at the conclusion of the examination. Please see speech pathology report for more information and recommendations. Electronically Signed: Caleb Hartman, at 14:21 EST , Service support , pulmonology- Dr Powers Operations: None Procedures: None Summary of Care Provided: The patient is a 83 year old M with an extensive past medical history as listed which includes severe COPD with chronic respiratory failure on 4 to 5 L of oxygen at home at rest and with ambulation as well as severe pulmonary hypertension. He was admitted through the ED on 08/13/2019 with a complaint of progressively worsening shortness of breath with increased work of breathing as well as a chronic cough productive of whitish sputum. He denied any fever or chills or chest pain and denied any dizziness or palpitations. ABGs done on admission showed pH of 7.41 PO2 95% was on BiPAP and CO2 of 53.8. Admitting chest x-ray showed patchy airspace disease in the mid to lower lung tran bilaterally which was increased relative to prior imaging. He was admitted and managed for acute on chronic combined respiratory failure due to bilateral pneumonia as well as acute COPD exacerbation. He was admitted to the ICU, started on IV vancomycin and aztreonam and IV Solu-Medrol as well as breathing treatments. He was continued on the BiPAP and pulmonology was consulted. Patient gradually improved and he was weaned off of BiPAP on 08/14/2019. He was initially on 10 L of oxygen by nonrebreather mask but that was gradually titrated down until he was on his baseline 45 L of oxygen. He was currently transferred to the progressive care unit. Due to concerns about possible aspiration, he had a videofluoroscopy which showed transient penetration with ingestion of thin liquids. Patient was encouraged to have oral care protocol training and implementation to reduce the effects of xerostomia and improve and maintain the integrity of the oral mucosa diet for reducing risk of aspiration related pulmonary complications. Blood culture was negative. Patient was weaned off of antibiotics. Patient's respiratory status went back to his baseline with him being on 45 L of oxygen. Patient remained stable and was discharged home on 08/17/2019 with a prescription for p.o. prednisone 40 mg daily for 5 days. Of note, patient had a walking pulse ox prior to discharge which showed desaturation to 86% on room air and he required 6 L with ambulation to go up to 90 L. Patient was therefore counseled to increase his oxygen to 6 L with ambulation at home for shortness of breath. He remained stable and was discharged home on 08/17/2019. He is to follow-up with his primary care doctor and to follow-up with pulmonology within 1 week. Patient seen and examined prior to discharge. He complained of upper abdominal pain which was mainly pleuritic and also said he had not had a bowel movement. Review systems otherwise negative. Labs and vitals reviewed. Home medication reviewed and reconciled. o/e: Vital Signs Height 5 ft 7 in Weight: 134 lb 11.239 oz Weight in Pounds 134.7 lbs Pulse Ox [AMBULATION with 94 Oxygen] Pulse Ox [AMBULATING on Room 90 Air] Pulse Ox [At REST on Room Air] 86 Pulse Ox 95 Temperature 98.3 F Pulse Rate 103 Respiratory Rate 20 Blood Pressure [BP] 117/61 Blood Pressure 120/67 Blood Pressure Position [BP] Semi-Fowlers Blood Pressure Position Sitting General: Alert, Oriented x3, Cooperative, No apparent distress HEENT: Atraumatic, PERRLA, EOMI, Normocephalic Oral: Dry Mucosa Neck: Supple, No JVD, Negative Carotid Bruits Lungs: - - decreased breath sounds bibasally, no wheezes or crackles. on 4.5L of oxygen by nasal canula Abdomen: Bowel Sounds Present, Soft, Non Tender, Non-Distended, No Hepato-splenomegaly Extremities: No clubbing, No cyanosis, Edema - mild bipedal pitting edema Skin: No rashes, No breakdown Musculoskeletal: No Tenderness to Palpation of Joints or Extremities Lymphatic: No Cervical, Supraclavicular, or Inguinal Adenopathy Neurological: Cranial nerves II-XII grossly intact, Neuro grossly intact, Motor Exam 5/5 strength throughout Psych/Mental Status: Normal Affect, Appropriate, Alert and oriented to time, place, person, mood and affect Plan as above [] - Physical Exam Vitals/I&O's: Vital Signs Temp Pulse Resp BP Pulse Ox 98.3 F 103 H 20 H 120/67 95 08/17/19 14:30 08/17/19 14:30 08/17/19 14:30 08/17/19 14:30 08/17/19 14:30 Oxygen Flow Rate (L/min) [ 6 AMBULATION with Oxygen] Oxygen Flow Rate (L/min) [ 6 AMBULATING on Room Air] Oxygen Flow Rate (L/min) 6 Oxygen Delivery Method Nasal Cannula Weight: 134 lb 11.239 oz Body Mass Index (BMI) 22.6 Intake and Output for Last 24 Hours 08/15/19 08/16/19 08/17/19 23:59 23:59 23:59 Intake Total 870 / 970 760 / 760 600 / 600 Output Total 1500 / 1700 2325 / 2325 600 / 600 Balance -630 / -730 -1565 / -1565 0 / 0 Microbiology Past 72 Hours 08/12/19 22:10 Blood Culture (Wb) #2 - Anticubital Left Blood Culture - Preliminary No growth in 48 hours. 08/12/19 22:11 Blood Culture (Wb) - Left Wrist Blood Culture - Preliminary No growth in 48 hours. Discharge Diet: Low fat/ Low Cholesterol Discharge Activity: Return to Normal Activity Weight Bearing Status: Weight bearing as tolerated Call your doctor if you observe: Fever of 101 or Higher, Shortness of breath, Dizziness, Swelling in the ankles, Chest pain, Increased palpitations (irregular heartbeat) Home Medications: Medications to take at Discharge Acetaminophen [Tylenol Tablet] 650 mg PO Q6H PRN PRN #0 tab 10/24/16 Losartan Potassium 25 mg PO DAILY #0 06/12/17 Albuterol IH (ProAir) [Proair Hfa] 2 puff INHALATION Q4H PRN PRN #0 11/01/18 Albuterol Aerosols [Ventolin Aerosols] 2.5 mg INHALATION Q4H PRN PRN #90 vial.neb. 07/17/19 Umeclidinium Brm/Vilanterol Tr [Anoro Ellipta 62.5-25 Mcg INH] 1 puff INHALATION DAILY 08/12/19 Amlodipine [Norvasc] 5 mg PO DAILY 08/13/19 Furosemide [Lasix] 40 mg PO DAILY 08/13/19 Ipratropium/Albuterol Sulfate [Duoneb] 3 ml INHALATION Q8 08/13/19 predniSONE tablet 40 mg PO DAILY@0800 5 Days #10 tab 08/17/19 Following Prescrptions Were Given to Patient: predniSONE tablet 40 mg PO DAILY@0800 5 Days #10 tab Transmission Status: Received by [facility] #30 Primary Care Physician: Misael Valencia MD [Primary Care Provider] - Please follow up with your Primary Care Physician in: one week Please Follow Up With: Anoop Powers MD When: 1-2 weeks Patient Instructions: What Is COPD?, Chronic Lung Disease: Becoming More Active, Care for COPD, Treatments for COPD Disposition: Home with Home Health Minutes spent on discharge:: 45 Patient Condition:: Fair Medical Necessity - Tobacco Use Smoking Status: Former smoker Tobacco Use: Non-smoker Meaningful Use Info Meaningful Use Diagnoses (Choose all that apply): None applicable Code Visit Inpatient E&M: 37850 Disch Hosp
--- NOTE | 2019-08-18 15:53 | CASEMGMT ---
Case Management DC F/u call: DC Date: 08/17/2019 DC Diagnosis: acute on chronic hypoxic respiratory failure, COPD exacerbation, community acquired pneumonia DC Disposition: Home with increased Home O2-[facility] Jayes[facility]/Strata: 17/11 Called patient home number listed in demographics, patient answered, introduced self and role. Patient states doing ok, scheduled f/u appointment with PCP for this Sunday and plans to schedule with Pulmonary after seeing PCP. Had question re: Prednisone and why it is not tapered as he has previously had in the past. Advised to s/w PCP at f/u appointment and made aware sometimes providers order it for short course not tapered. Denies any further questions, concerns with medications, ACI or f/u appointments. Thanked patient for choosing [facility] for care and ended conversation. Nathalie Patrick, FLORINDACM
== END 2019-08-17 14:40 | disposition home or self-care (01) | DRG 189 ==
LOC: ED 22:10 → ICU 08-13 01:57 → PCU 08-15 15:57
PROVIDERS: Admitting Provider Internal Medicine; Emergency Provider Emergency Medicine; Family Provider Internal Medicine; PCP Internal Medicine; Visit Provider Student in an Organized Health Care Education/Training Program
DX: J96.21 Acute and chronic respiratory failure with hypoxia (principal); J18.9 Pneumonia, unspecified organism; E87.1 Hypo-osmolality and hyponatremia; J44.1 Chronic obstructive pulmonary disease with (acute) exacerbation; J44.0 Chronic obstructive pulmonary disease with (acute) lower respiratory infection; I36.1 Nonrheumatic tricuspid (valve) insufficiency; I35.0 Nonrheumatic aortic (valve) stenosis; I44.1 Atrioventricular block, second degree; I27.20 Pulmonary hypertension, unspecified; I10 Essential (primary) hypertension; K21.9 Gastro-esophageal reflux disease without esophagitis; Z99.81 Dependence on supplemental oxygen; Z87.891 Personal history of nicotine dependence; Z85.118 Personal history of other malignant neoplasm of bronchus and lung; Z95.0 Presence of cardiac pacemaker; Z88.0 Allergy status to penicillin
CPT/HCPCS: 36415; 36600; 71045; 74230; 80048; 82803; 83605; 83880; 84484; 85025; 87040; 92507; 92526; 92610; 92611; 93005; 94002; 94003; 94640; 97110; 97116; 97162; 97166; 97530; 97535; 97802; 97803; 99251; 99285; J7030; J7050; A4216; G0463; J1940

== ENCOUNTER → 2019-09-02 14:15 | Outpatient (CLI) | payer MEDICARE, OTHER, SELFPAY ==
[2019-09-02 13:42] VITALS: BMI 22.3
[2019-09-02 14:48] LABS: Anion Gap 0 (5-15); BUN 13 mg/dL (7-18); Calcium,Total 9.3 mg/dL (8.5-10.1); Chloride 96 mmol/L (98-107); Creatinine, Serum 0.54 mg/dL (0.70-1.30); EST Glomerular Filtration Rate 154 mL/min (>60); Est Glom Filt Rate - Afr Amer 187 mL/min (>60); Glucose 119 mg/dL (74-106); Potassium 4.1 mmol/L (3.5-5.1); Sodium Level 134 mmol/L (136-145)
[2019-09-02 15:18] LABS: BNP,B-Type NATRIURETIC PEPTIDE 53.1 pg/mL (0-100)
== END ==
PROVIDERS: PCP Internal Medicine; Referring Provider Nurse Practitioner Acute Care; Visit Provider Nurse Practitioner Acute Care
DX: R06.02 Shortness of breath (principal)
CPT/HCPCS: 36415; 80048; 83880

== ENCOUNTER 2019-09-08 06:27 | Inpatient (IN) | payer MEDICARE, OTHER, SELFPAY ==
[2019-09-02 13:42] VITALS: BMI 22.3
[2019-09-08] VITALS (38 sets, daily range): BP systolic 80–183; BP diastolic 44–87; PULSE 73–114; RESP 12–30; TEMP 36.4–37.5; O2SAT 38–100; BMI 25.8; BMI 22.7
--- NOTE | 2019-09-08 06:32 | RAD_ITS ---
HISTORY: respiratory failure EXAMINATION/TECHNIQUE: XR Chest 1 View: Portable COMPARISON: 08/12/2019 FINDINGS: No significant change. Normal heart size. Chronic lung disease with upper lobe emphysema. Chronic appearing interstitial scarring within the left mid and left lower lung zone and with underlying left lower lobe infiltrate also possible. Right basilar small pleural effusion and chronic asymmetric infiltrate or mass within the right lower lung zone. Right apical mild scarring. No pneumothorax. Left subclavian dual-chamber transvenous pacemaker with electrode tips in the region of the right atrium and right ventricle. RAD/Chest 1 View (Portable) IMPRESSION: 1. No significant change. Right basilar small effusion with right lower lobe chronic appearing infiltrate or possibly mass. 2. Background chronic lung disease with emphysema and interstitial scarring. at 0747 Reported and signed by: Shailesh Olivares MD Electronically Signed: Shailesh Olivares, at 7:46 EST Tel , Service support ,
--- NOTE | 2019-09-08 06:33 | EKG12_ITS ---
Test Reason : SOB Blood Pressure : / mmHG Vent. Rate : 112 BPM Atrial Rate : 112 BPM P-R Int : 000 ms QRS Dur : 192 ms QT Int : 422 ms P-R-T Axes : 000 267 104 degrees QTc Int : 576 ms Ventricular-paced rhythm Abnormal ECG Confirmed by ANGEL LUIS SOTO, SHASHANK ([id number]), film editor VON TY ([id number]) on 09/09/2019 8:20:16 AM Referred By: LU Confirmed By:SHASHANK HEIN MD
[2019-09-08 06:49] LABS: Absolute Lymphocyte Count 3.77 X10^3/uL (0.83-4.51); Absolute Neutrophil Count 4.3 X10^3/uL (2.0-7.7); Basophil# 0.05 X10^3/uL; Basophil% 0.5 % (0-1); Eosinophil# 0.27 X10^3/uL; Eosinophils% 2.8 % (0-5); Hematocrit 37.2 % (40-54); Hemoglobin 11.1 g/dL (13.0-16.5); Lymphocyte # 3.77 X10^3/ul (4.0); Lymphocyte % 39.3 % (19-41); Mean Corp Hgb Conc 29.8 g/dL (32-36); Mean Corpuscular Hgb 28.7 pg (27.0-32.0); Mean Corpuscular Volume 96.1 fL (80-94); Mean Platelet Vol. 9.4 fl (6.2-12.0); Monocyte# 1.16 X10^3/uL; Monocyte% 12.1 % (0-10); NRBC Flagged by Analyzer 0 % (0-5); Neutrophil # 4.31 X10^3/uL (2.7-7.7); Platelet Count 246 K/mm3 (150-450); RBC Distribution Width CV 13.7 % (11.6-14.6); RBC Distribution Width SD 48.5 fl (35.1-43.9); Red Blood Count 3.87 M/mm3 (4.6-6.2); White Blood Count 9.6 K/mm3 (4.4-11.0)
--- NOTE | 2019-09-08 06:54 | CPS ---
Results given to Dr. Egan critical results.
[2019-09-08 06:55] LABS: Prothrombin Time (Protime)PT. 12.4 SECONDS (11.7-14.9)
[2019-09-08 06:56] LABS: Partial Thromboplast Time 31.3 Seconds (24.1-36.2)
--- NOTE | 2019-09-08 06:59 | ED.DCSUM_ITS ---
History of Present Illness Chief Complaint: Shortness of Breath Narrative: Patient has a history of severe COPD, CHF, and pulmonary hypertension. states he was just in the hospital middle of last month. He states that yesterday he was complaining of swelling in his legs arms and abdomen. He did not start to have a cough until this morning and she states that there was a loose clear phlegm. No reported fevers. She states that he tried to wear her CPAP last night but could not. He chronically wears 5 L nasal cannula. Past Medical History - Allergies and Home Meds Allergies/Adverse Reactions: Allergies ampicillin Allergy (Verified 09/08/19 06:40) Anaphylaxis azithromycin Allergy (Verified 09/08/19 06:40) Rash codeine Allergy (Verified 09/08/19 06:40) Rash penicillin G Allergy (Verified 09/08/19 06:40) Rash Sulfa (Sulfonamide Antibiotics) Allergy (Verified 09/08/19 06:40) Rash sulfamethoxazole [From Bactrim] Allergy (Verified 09/08/19 06:40) Rash trimethoprim [From Bactrim] Allergy (Verified 09/08/19 06:40) Rash Primary Care Physician: Misael Valencia MD [Primary Care Provider] - Surgical History: appendectomy, cataract, pacemaker implantation Smoking Status: Unknown if ever smoked - Family History Paternal Family History: Family History (Last Reviewed 07/31/19 @ 15:20 by CAITLIN Love) Brother Diabetes Sister Diabetes Lung cancer Family History: Reports: Heart Disease - Father with history of heart disease, at age 96. Offspring Family History: Family History (Last Reviewed 07/31/19 @ 15:20 by CAITLIN Love) Brother Diabetes Sister Diabetes Lung cancer Family History: Reports: COPD Sibling Family History: Family History (Last Reviewed 07/31/19 @ 15:20 by CAITLIN Love) Brother Diabetes Sister Diabetes Lung cancer Family History: Reports: COPD, Diabetes, Heart Disease Maternal Family History: Family History (Last Reviewed 07/31/19 @ 15:20 by CAITLIN Love) Brother Diabetes Sister Diabetes Lung cancer Family History: Reports: Heart Disease, - - osteoporosis Review of Systems General: Denies: Chills, Fever, Sweats Eyes: Denies: Visual changes - bilaterally, Diplopia ENT: Denies: Rhinorrhea, Sore throat Cardiovascular: Denies: Chest pain, Palpitations Respiratory: Reports: Dyspnea, Cough, Sputum, Dyspnea on exertion, Orthopnea, Paroxysmal nocturnal dyspnea Gastrointestinal: Denies: Abdominal pain, Nausea, Vomiting, Diarrhea, Melena, Hematochezia Genitourinary: Denies: Dysuria, Hematuria, Frequency Musculoskeletal: Reports: - - Arm and lower extremity swelling. Denies: Back pain, Extremity Pain Skin: Denies: Rash, Wounds Neurological: Denies: Headache, Weakness, Numbness Physical Exam Vital Signs/Narrative: Vital Signs Temp Pulse Resp BP Pulse Ox 09/08/19 06:38 97.8 F 114 H 30 H 183/87 H 99 09/08/19 06:33 98 09/08/19 06:32 97.8 F 108 H 23 H 128/61 H 38 Inital Vital Signs reviewed: Yes General: Well nourished, Well developed, Acute Distress Head: Normocephalic, Atraumatic Eyes: Perrl, EOMI ENT: Moist mucous membranes, No rhinorrhea Neck: Supple, Nontender Cardiovascular: Regular rate, No murmurs, Tachycardia Respiratory: Chest nontender, Wheezing, Decreased Air Movement, - - Acute respiratory distress with abdominal breathing Abdomen: Soft, Nontender, Nondistended, Normal bowel sounds Back: Nontender, Normal Inspection Extremities: Nontender, Edema - Lower extremity edema Skin: No rash, Cyanosis - Of the hands and feet Neurological: Cranial nerves II-XII grossly intact, Normal Strength, Normal Sensation Psychological: - - Anxious Diagnostic/Tx/Re-eval - Rhythm Strip Rhythm Strip: Ventricular paced rhythm Rate: 112 - Medical Decision Making Upon arrival emergency department the patient's pulse ox was 37% with a good waveform and he was lethargic. However he would still respond to me. He was moved to the resuscitation room and placed on BiPAP where his color and oxygen saturations improved. His work of breathing decreased. His arrived and we discussed the recent days. He received breathing treatments and Solu-Medrol. His blood gas reveals an acute on chronic respiratory acidosis. White count is normal. His chest x-ray shows significant chronic changes. There is a small pleural effusion on the right. He is not having fever, elevated white count, purulent phlegm, or obvious infiltrate on chest x-ray I did not administer antibiotics. With his lower extremity edema and pulmonary hypertension I did administer some Lasix. Plan will be admission into the ICU. - Critical Care Time Critical care time (excluding procedures): 30-74 minutes - 35 min ED Disposition - Plan for ED Patient: Disposition: Acute Care Hospital [facility] Diagnosis: Acute and chronic respiratory failure, Pulmonary hypertension, COPD exacerbation Referrals: Misael Valencia MD [Primary Care Provider] -
[2019-09-08 07:01] LABS: ALB/GLOB Ratio 1.1 RATIO (0.9-2.4); AST(SGOT) 19 U/L (15-37); Alanine Aminotransfer ALT/SGPT 29 U/L (16-61); Albumin, Serum 3.6 g/dL (3.2-5.0); Alkaline Phosphatase 90 U/L (45-117); Anion Gap 3 (5-15); BUN 10 mg/dL (7-18); BUN/Creat Ratio 14.1 RATIO (10-20); Calcium,Total 9.3 mg/dL (8.5-10.1); Chloride 91 mmol/L (98-107); Creatinine, Serum 0.71 mg/dL (0.70-1.30); EST Glomerular Filtration Rate 113 mL/min (>60); Est Glom Filt Rate - Afr Amer 137 mL/min (>60); Globulin 3.4 g/dL (2.2-4.2); Glucose 212 mg/dL (74-106); Lipase 822 U/L (73-393); Sodium Level 132 mmol/L (136-145)
[2019-09-08 07:11] LABS: Allen Test POS; Base Excess 13 mmol/L (-2 to +2); Bicarbonate 41.6 mmol/L (22-26); Blood Gas Specimen Type ART; EPAP 6; FI02 60; IPAP 12; PO2 147 mmHG (75-100); RR 12; SITE R Radial; SO2 98 % (95-99); Time Given 654; Total Carbon Dioxide 45 mmol/L; pCO2 107.6 mmHg (35-45)
[2019-09-08] MEDS: Ipratropium/Albuterol Sulfate 3 ML AMPUL.NEB INHALATION ×2 (07:23→22:25)
[2019-09-08 07:32] LABS: Lactic Acid 2.7 mmol/L (0.4-1.9)
[2019-09-08] MEDS: Furosemide 100 MG/10 ML Vial 60 MG IV ×2 (07:32→17:57)
[2019-09-08] MEDS: MethylPREDNISolone 125 MG/2 ML Vial IV (07:33)
[2019-09-08 07:47] LABS: BNP,B-Type NATRIURETIC PEPTIDE 140.8 pg/mL (0-100)
--- NOTE | 2019-09-08 07:57 | CON.PCM_ITS ---
Reason for Consult Date of Consultation: 09/08/19 Reason for Consultation: Evaluation of cardiac status History of Present Illness: The patient is a 83 year old M with a past medical history consisting of paroxysmal atrial fibrillation, status post permanent pacemaker implantation, hy pertension, diastolic dysfunction, and aortic stenosis. The patient was recently discharged from the hospital last month after he had presented with an exacerbation of obstructive lung disease and possible pneumonia. According to his he started developing more shortness of breath as well as lower extremity edema. He decided to present to the emergency room today. He was scheduled to see his contractor buyer in the office this afternoon and because of that cardiology was consulted from the emergency room to evaluate him. At this particular time he denies any chest pain though he is markedly tachypneic on BiPAP. He denies any dizziness or diaphoresis no near syncope or syncope. He does admit to lower extremity edema he has been compliant with his medications. [] Past Medical History Allergies/Adverse Reactions: Allergies ampicillin Allergy (Verified 09/08/19 06:40) Anaphylaxis azithromycin Allergy (Verified 09/08/19 06:40) Rash codeine Allergy (Verified 09/08/19 06:40) Rash penicillin G Allergy (Verified 09/08/19 06:40) Rash Sulfa (Sulfonamide Antibiotics) Allergy (Verified 09/08/19 06:40) Rash sulfamethoxazole [From Bactrim] Allergy (Verified 09/08/19 06:40) Rash trimethoprim [From Bactrim] Allergy (Verified 09/08/19 06:40) Rash Home Medications: Ambulatory Orders Medication Instructions Recorded Acetaminophen [Tylenol Tablet] 650 mg PO Q6H PRN PRN #0 tab 10/24/16 Losartan Potassium 25 mg PO DAILY #0 06/12/17 Albuterol Aerosols [Ventolin 2.5 mg INHALATION Q4H PRN PRN #90 07/17/19 Aerosols] vial.neb. Amlodipine [Norvasc] 5 mg PO DAILY 08/13/19 Ipratropium/Albuterol Sulfate 3 ml INHALATION Q8 08/13/19 [Duoneb] albuterol sulfate 90 mcg/actuation 2 puff INHALATION Q4H PRN PRN #18 g 09/02/19 aerosol inhaler umeclidinium 62.5 mcg-vilanterol 1 ea INHALATION DAILY #60 ea 09/02/19 25 mcg/actuation powdr for inhalation Furosemide 80 mg PO BID 09/08/19 Past Medical History (Chronic Problems): Chronic Problems (Last Reviewed 07/31/19 @ 15:20 by CAITLIN Love) Acute and chronic respiratory failure (Chronic) Stage 3 severe COPD by GOLD classification (Chronic) FEV1 44% of predicted on PFT 12/15/2016 at [facility] Diastolic dysfunction (Chronic) 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) Essential hypertension (Chronic) Paroxysmal atrial flutter (Chronic) Non-rheumatic tricuspid valve insufficiency (Chronic) Aortic valve stenosis, nonrheumatic (Chronic) 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) 06/11/17 Chronic respiratory failure (Chronic) COPD (chronic obstructive pulmonary disease) (Chronic) Conduction disorder of the heart (Chronic) Pulmonary hypertension (Chronic) GERD (gastroesophageal reflux disease) (Chronic) Bullous emphysema (Chronic) Surgical History: appendectomy, cataract, pacemaker implantation Psychiatric History: Anxiety, Depression - *Family History Paternal Family History: Family History (Last Reviewed 09/08/19 @ 07:59 by Kendall Richardson MD) Brother Diabetes Sister Diabetes Lung cancer History Items: Heart Disease - Father with history of heart disease, at age 96. Offspring Family History: Family History (Last Reviewed 09/08/19 @ 07:59 by Kendall Richardson MD) Brother Diabetes Sister Diabetes Lung cancer History Items: COPD Sibling Family History: Family History (Last Reviewed 09/08/19 @ 07:59 by Kendall Richardson MD) Brother Diabetes Sister Diabetes Lung cancer History Items: COPD, Diabetes, Heart Disease Maternal Family History: Family History (Last Reviewed 09/08/19 @ 07:59 by Kendall Richardson MD) Brother Diabetes Sister Diabetes Lung cancer History Items: Heart Disease, - - osteoporosis Lives: Spouse/ Significant Other Smoking Status: Unknown if ever smoked Alcohol: None Drugs: None Review of Systems - Review of Systems General: Reports: Fatigue. Denies: Fever, Night Sweats HEENT: Denies: Vision Change Cardiovascular: Reports: Shortness of Breath, Shortness of Breath at Rest, Shortness of Breath with Exertion, Peripheral Edema. Denies: Chest Discomfort, Orthopnea, PND, Palpitations, Lightheadedness, Dizziness, Near Syncope, Syncope Respiratory: Reports: Cough. Denies: Sputum Production, Hemoptysis Gastrointestinal: Denies: Hematemesis, Hematochezia, Melena Genitourinary: Denies: Dysuria, Hematuria Muscoloskeletal: Denies: Myalgias Skin: Denies: Rash Neurological: Denies: Dizziness Psychiatric: Denies: Anxiety Endocrine: Denies: Unexplained Weight Loss Hematologic/ Lymphatic: Denies: Anemia Subjectve: Pleasant gentleman in some respiratory distress Objective: Vital Signs Temp Pulse Resp BP Pulse Ox 97.8 F 100 22 H 162/73 H 98 09/08/19 06:38 09/08/19 07:35 09/08/19 07:35 09/08/19 07:35 09/08/19 07:35 Oxygen Flow Rate (L/min) 6 Oxygen Delivery Method Bi-pap Weight: 169 lb 12.095 oz Body Mass Index (BMI) 25.8 General: Awake, Alert, Oriented x 3, In Acute Distress HEENT: PERRL, EOMI, Sclera Non Icteric Neck: Supple, Good ROM, No Lymph Node Enlargement Lungs: Diminished Isiah Bases Cardiovascular: Regular Rhythm, Normal S1, Normal S2, No Rubs, No Gallops Murmur Murmur: Grade 2/6, Early Systolic, LLSB Vascular: No Carotid Bruits, Normal Femoral Pulses, Normal Radial Pulses, Normal Dorsalis Pedal Pulse, Normal Posterior Tibial Pulses Abdomen: Bowel Sounds Present, Soft, Non Tender, No HSM, No Organomegaly Extremities: No Cyanosis, No Clubbing, Bilateral Edema +2 Musculoskeletal: No Erythema Skin: No Rashes Lymphatic: No Lymph Node Enlargement Neurological: No Focal Motor or Sensory Deficit Psych/Mental Status: Appropriate 09/08/19 06:35: WBC 9.6, RBC 3.87 L, Hgb 11.1 L, Hct 37.2 L, MCV 96.1 H, MCH 28.7, MCHC 29.8 L, Plt Count 246, MPV 9.4, Immature Gran % (Auto) 0.300, Neut % (Auto) 45.0 L, Lymph % (Auto) 39.3, Randolph % (Auto) 12.1 H, Eos % (Auto) 2.8, Baso % (Auto) 0.5, Absolute Neuts (auto) 4.3, Nucleated RBC % 0 09/08/19 06:35: PT 12.4, INR 1.0, APTT 31.3 09/08/19 06:35: Sodium 132 L, Potassium 4.0, Chloride 91 L, Carbon Dioxide 38.0 H, Anion Gap 3 L, BUN 10, Creatinine 0.71, Est GFR (MDRD) Af Amer 137, Est GFR (MDRD) Non-Af 113, BUN/Creatinine Ratio 14.1, Glucose 212 H, Calcium 9.3, Total Bilirubin 0.50, Troponin I < 0.015 09/08/19 06:35: Lactic Acid 2.7 H* 09/08/19 06:35: B-Natriuretic Peptide 140.8 H 09/08/19 06:55: pH 7.20 L, Bicarbonate Actual 41.6 H, POC Total CO2 45, Base Excess 13 H, O2 Saturation 98, ABG pCO2 107.6 H*, ABG pO2 147 H, Mo Test POS Rhythm: EKG: Normal sinus rhythm ECHO: Stress Test: Cardiac Cath: PCI: CT Surgery: Holter monitor: EPS: PPM: CXR: Chest CT Scan: Assessment/Plan 1. Shortness of breath * The above is likely pulmonary in origin. His natruretic peptide is only mildly elevated at 140. We will continue to treat his underlying pulmonary condition. He may be able to continue with low-dose diuretics. I do not think that there is any evidence of worsening of his heart failure. * We will repeat the echocardiogram from last year to reassess his left ventricular function. * 2. Paroxysmal atrial fibrillation * He does have a history of paroxysmal atrial fibrillation. He appears to be maintaining sinus rhythm at this particular time. * Will continue observing him for now. * 3. Status post permanent pacemaker implantation. * There is no evidence of pacemaker malfunction at this time. We will wait to have this interrogated during his office visits. * 4. Aortic stenosis. * He does have evidence of moderate aortic stenosis with a mean gradient of 25 mmHg across his aortic valve. * Would recommend repeat echocardiogram to reassess his left ventricular function. * I do not think that this is severe to be contributing to his condition * 5. Hypertension * His blood pressure appears to be under fair control. I would not recommend that we make any changes at this time. * 6. Left ventricular dysfunction * He does have evidence of mild low ventricular systolic dysfunction with estimated ejection fraction of 45%. His pulmonary pressures were noted to be elevated to the high 70s. * I suspect that some of his pedal edema is secondary to his amlodipine. * Would recommend discontinuing this and considering increasing his ARB * * Thank you for allowing me to participate in the care of your patient. Please don't hesitate to call if any issues arise
--- NOTE | 2019-09-08 09:52 | ECHOD_ITS ---
Reason For Study: CHF Procedure This was a 2D Doppler, Color Flow transthoracic echocardiogram. Exam performed portable in ICU/CCU. Left Ventricle Normal LV size. Left ventricular systolic function is normal. The estimated ejection fraction is 55 %. Stage 1 diastolic dysfunction. No regional wall motion abnormalities noted. Right Ventricle Normal RV size. ICD or pacer leads identified within the right ventricle. Normal systolic function. Atria Normal left atrium. Normal right atrium. Mitral Valve There is moderate mitral annular calcification. Mild (1+) eccentric mitral valve insufficiency. Tricuspid Valve Normal tricuspid valve. Moderate (2+) tricuspid valve insufficiency. Pulmonary artery systolic pressure is 50 mmHg. Moderate pulmonary hypertension. Aortic Valve Trisinus/trileaflet aortic valve. Moderate focal aortic valve calcification. Peak aortic valve gradient 39 mmHg. Mean aortic valve gradient 23 mmHg. Moderate aortic stenosis. Pulmonic Valve Normal pulmonic valve. Great Vessels Normal aortic root. The pulmonary artery is normal size. Normal inferior vena cava. Pericardium/Pleural No pericardial effusion. MMode/2D Measurements & Calculations LVIDd: 4.7 cm IVSd: 1.0 cm LVOT diam: 2.0 cm LVIDs: 2.4 cm LVPWd: 1.0 cm LVOT area: 3.1 cm2 RVDd: 3.3 cm FS: 48.2 % LA dimension: 3.7 cm LAV(MOD-bp): 28.8 ml LA A4 area: 13.2 cm2 LAV(MOD-sp2): 27.8 ml LAV(MOD-sp4): 29.3 ml RA A4 area: 10.9 cm2 Time Measurements MV dec time: 0.28 sec Doppler Measurements & Calculations MV E max herb: 88.0 cm/sec Lat Peak E' Herb: 4.5 cm/sec Med Peak E' Herb: 3.9 cm/sec MV A max herb: 159.6 cm/sec E/E' lat: 19.5 E/E' med: 22.7 MV E/A: 0.55 MV V2 max: 183.6 cm/sec MV P1/2t max herb: 93.7 cm/sec Ao V2 max: 311.7 cm/sec MV max P.5 mmHg MV P1/2t: 95.5 msec Ao max P.9 mmHg MV V2 mean: 88.5 cm/sec Ao V2 mean: 229.7 cm/sec MV mean P.8 mmHg MV dec slope: 287.6 cm/sec2 Ao mean P.3 mmHg MV V2 VTI: 35.9 cm MVA(P1/2t): 2.3 cm2 Ao V2 VTI: 68.6 cm MVA(VTI): 1.4 cm2 YVONNE(I,D): 0.75 cm2 YVONNE(V,D): 0.79 cm2 LV V1 max: 81.1 cm/sec SV(LVOT): 51.3 ml PA V2 max: 132.3 cm/sec LV V1 max P.6 mmHg LV V1 mean P.4 mmHg LV V1 mean: 53.2 cm/sec LV V1 VTI: 16.8 cm TR max herb: 338.6 cm/sec TR max P.9 mmHg Interpretation Summary Normal LV size. Left ventricular systolic function is normal. The estimated ejection fraction is 55 %. Stage 1 diastolic dysfunction. Moderate pulmonary hypertension. Mean aortic valve gradient 23 mmHg. Compared to the previous the AV sthe same with the mean gradient unchanged. The pulmonary pressures are better. Ordering Physician: Kendall Richardson Referring Physician: Misael Valencia M.D. Performed By: Simón Preciado RCS
[2019-09-08 10:40] LABS: Reflex Lactate? Y
[2019-09-08] MEDS: Enoxaparin 40 MG/0.4 ML Syringe SC (10:47)
[2019-09-08] MEDS: 0.9% Saline Lock 10 ML Syringe IV ×2 (10:47→17:57)
[2019-09-08 11:18] LABS: Lactic Acid 1.5 mmol/L (0.4-1.9)
--- NOTE | 2019-09-08 12:29 | CON.PCM_ITS ---
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 Status: Chronic Comment: FEV1 44% of predicted on PFT 12/15/2016 at [facility] (3) Diastolic dysfunction Status: Chronic (4) Presence of cardiac pacemaker Status: Chronic (5) Right lower lobe lung mass Status: Chronic (6) Essential hypertension Status: Chronic (7) Paroxysmal atrial flutter Status: Chronic (8) Aortic valve stenosis, nonrheumatic Status: Chronic (9) Pulmonary hypertension Status: Chronic (10) GERD (gastroesophageal reflux disease) Status: Chronic Qualifiers: Esophagitis presence: esophagitis presence not specified Qualified Code(s): K21.9 - Gastro-esophageal reflux disease without esophagitis Reason for Consult Date of Consultation: 09/08/19 Reason for Consultation: Acute on chronic respiratory failure History of Present Illness: The patient is an 83 year old M, with past medical history listed below, who presented was [facility] on 09/08/2019 secondary to progressive swelling of his lower extremities, abdomen and shortness of breath. Patient had not reported any subjective fevers or change in sinus congestion. Patient had reported a loose clear foamy phlegm over the last 24 to 48 hours. Patient does use 5 L nasal cannula at baseline, but was reportedly becoming more hypoxic and came to the ER for evaluation. Patient did have a similar presentation last month for which she was discharged on BiPAP therapy. Patient reportedly has been unable to tolerate this at home and states that he only recently received his machine. In the ER, patient was noted to have significant lower extremity edema and hypoxia, saturating 37% with a good waveform. Patient was able to respond intermittently and was placed on BiPAP therapy with improvement in color and saturations. ABG showed acute on chronic respiratory acidosis. Chest imaging showed a small right pleural effusion. Laboratory work-up did not show any significant leukocytosis. Patient was given Lasix and then admitted to the intensive care unit. Since being in the intensive care unit, patient has tolerated BiPAP therapy. Saturations have been acceptable, but patient's blood pressures have been marginal. Mentation appears to be improving. Patient did admit that he was only taking 40 mg of Lasix daily secondary to intolerance. Patient reported that he is not received his BiPAP machine until just recently and then was unable to tolerate that therapy overnight. Patient did not attempt to call our office prior to coming to the ER. Patient was unable to provide a complete review of systems secondary to mental status. Patient would open his eyes intermittently and respond appropriately, but did not have the endurance to complete a review of systems. Past Medical History Past Medical History (Chronic Problems): Chronic Problems (Last Reviewed 07/31/19 @ 15:20 by Shu Chahal NP-C) Acute and chronic respiratory failure (Chronic) Stage 3 severe COPD by GOLD classification (Chronic) FEV1 44% of predicted on PFT 12/15/2016 at [facility] Diastolic dysfunction (Chronic) 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) Essential hypertension (Chronic) Paroxysmal atrial flutter (Chronic) Non-rheumatic tricuspid valve insufficiency (Chronic) Aortic valve stenosis, nonrheumatic (Chronic) 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) 06/11/17 Chronic respiratory failure (Chronic) COPD (chronic obstructive pulmonary disease) (Chronic) Conduction disorder of the heart (Chronic) Pulmonary hypertension (Chronic) GERD (gastroesophageal reflux disease) (Chronic) Bullous emphysema (Chronic) Medical History: Medical History (Last Reviewed 07/31/19 @ 15:20 by Shu Chahal, CHEMICAL PLANT TECHNICAL DIRECTOR-C) Paroxysmal atrial flutter (Chronic) I48.92 Aortic valve stenosis, nonrheumatic (Chronic) I35.0 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) I44.1 Chronic respiratory failure (Chronic) J96.10 COPD (chronic obstructive pulmonary disease) (Chronic) J44.9 Conduction disorder of the heart (Chronic) I45.9 Pulmonary hypertension (Chronic) I27.20 GERD (gastroesophageal reflux disease) (Chronic) K21.9 Bullous emphysema (Chronic) J43.9 Anxiety F41.9 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 Colon polyps Lung cancer (Inactive) C34.90 Allergies ampicillin Allergy (Verified 09/08/19 06:40) Anaphylaxis azithromycin Allergy (Verified 09/08/19 06:40) Rash codeine Allergy (Verified 09/08/19 06:40) Rash penicillin G Allergy (Verified 09/08/19 06:40) Rash Sulfa (Sulfonamide Antibiotics) Allergy (Verified 09/08/19 06:40) Rash sulfamethoxazole [From Bactrim] Allergy (Verified 09/08/19 06:40) Rash trimethoprim [From Bactrim] Allergy (Verified 09/08/19 06:40) Rash Home Medications: Ambulatory Orders Medication Instructions Recorded Acetaminophen [Tylenol Tablet] 650 mg PO Q6H PRN PRN #0 tab 10/24/16 Losartan Potassium 25 mg PO DAILY #0 06/12/17 Albuterol Aerosols [Ventolin 2.5 mg INHALATION Q4H PRN PRN #90 07/17/19 Aerosols] vial.neb. Amlodipine [Norvasc] 5 mg PO DAILY 08/13/19 Ipratropium/Albuterol Sulfate 3 ml INHALATION Q8 08/13/19 [Duoneb] albuterol sulfate 90 mcg/actuation 2 puff INHALATION Q4H PRN PRN #18 g 09/02/19 aerosol inhaler Furosemide 40 mg PO DAILY 09/08/19 Umeclidinium Brm/Vilanterol Tr 1 puff INHALATION DAILY 09/08/19 [Anoro Ellipta 62.5-25 Mcg INH] Surgical History: Surgical History (Last Reviewed 07/31/19 @ 15:20 by Shu Chahal NP-C) History of permanent cardiac pacemaker placement (Chronic) Z95.0 06/11/17 History of appendectomy Z98.890, Z90.49 Hx of cataract surgery Z98.49 Surgical History: appendectomy, cataract, pacemaker implantation Psychiatric History: Anxiety, Depression Lives: Spouse/ Significant Other Smoking Status: Unknown if ever smoked Alcohol: None Drugs: None - *Family History Paternal Family History: Family History (Last Reviewed 09/08/19 @ 07:59 by Kendall Richardson MD) Brother Diabetes Sister Diabetes Lung cancer History Items: Heart Disease - Father with history of heart disease, at age 96. Offspring Family History: Family History (Last Reviewed 09/08/19 @ 07:59 by Kendall Richardson MD) Brother Diabetes Sister Diabetes Lung cancer History Items: COPD Sibling Family History: Family History (Last Reviewed 09/08/19 @ 07:59 by Kendall Richardson MD) Brother Diabetes Sister Diabetes Lung cancer History Items: COPD, Diabetes, Heart Disease Maternal Family History: Family History (Last Reviewed 09/08/19 @ 07:59 by Kendall Richardson MD) Brother Diabetes Sister Diabetes Lung cancer History Items: Heart Disease, - - osteoporosis Review of Systems Unable to obtain accurate/complete ROS d/t: See HPI Patient Problems: Active and Suspected Problems (Last Reviewed 07/31/19 @ 15:20 by Shu Chahal NP-C) COPD exacerbation (Acute) Objective: Chest imaging was personally reviewed. This appears to be grossly unchanged compared to previous. Previous echocardiograms and PFT were also reviewed, along with previous hospitalization. - Physical Exam Vitals/I&O's: Vital Signs Temp Pulse Resp BP Pulse Ox 36.9 C 74 21 H 97/51 L 97 09/08/19 12:00 09/08/19 12:00 09/08/19 12:00 09/08/19 12:00 09/08/19 12:00 Oxygen Flow Rate (L/min) 6 Oxygen Delivery Method Bi-pap Weight: 63.9 kg Body Mass Index (BMI) 22.7 Intake and Output for Last 24 Hours 09/06/19 09/07/19 09/08/19 23:59 23:59 23:59 Intake Total 0 / 0 Output Total 350 / 350 Balance -350 / -350 General: Cooperative, No apparent distress, - - RASS -1. BiPAP in place. No paradoxical respiratory muscle movement. HEENT: Atraumatic, PERRLA, EOMI, Normocephalic, - - No scleral icterus or injection noted Oral: No Gingival or Mucosal Lesions/ Ulcerations, Dry Mucosa Neck: Supple, No Nodes, Trachea Midline, JVD, Right Lungs: No rhonchi, Diminished, Rales, Wheezes - Sporadic Cardiovascular: Normal S1, Normal S2, Irregular Rate, Murmur - Grade 2 out of 6 systolic ejection murmur at left sternal border, No rub noted, No Gallop Abdomen: Bowel Sounds Present, Soft, Non Tender, Non-Distended Extremities: No cyanosis, Clubbing, Edema - 3-4+ lower extremity Skin: - - Venous stasis changes bilateral lower extremities Musculoskeletal: No Tenderness to Palpation of Joints or Extremities Lymphatic: No Cervical, Supraclavicular, or Inguinal Adenopathy Neurological: Cranial nerves II-XII grossly intact, Neuro grossly intact, Motor Exam 5/5 strength throughout Psych/Mental Status: Flat Affect, Impulsive Laboratory Results 09/08/19 06:35: WBC 9.6, RBC 3.87 L, Hgb 11.1 L, Hct 37.2 L, MCV 96.1 H, MCH 28.7, MCHC 29.8 L, RDW Std Deviation 48.5 H, RDW Coeff of Earline 13.7, Plt Count 246, MPV 9.4, Immature Gran % (Auto) 0.300, Neut % (Auto) 45.0 L, Lymph % (Auto) 39.3, [place] % (Auto) 12.1 H, Eos % (Auto) 2.8, Baso % (Auto) 0.5, Absolute Neuts (auto) 4.3, Absolute Lymphs (auto) 3.77, Nucleated RBC % 0 09/08/19 06:35: PT 12.4, INR 1.0, APTT 31.3 09/08/19 06:35: Sodium 132 L, Potassium 4.0, Chloride 91 L, Carbon Dioxide 38.0 H, Anion Gap 3 L, BUN 10, Creatinine 0.71, Estim Creat Clear Calc 55.10, Est GFR (MDRD) Af Amer 137, Est GFR (MDRD) Non-Af 113, BUN/Creatinine Ratio 14.1, Glucose 212 H, Calcium 9.3, Total Bilirubin 0.50, AST 19, ALT 29, Alkaline Phosphatase 90, Troponin I < 0.015, Total Protein 7.0, Albumin 3.6, Globulin 3.4, Albumin/Globulin Ratio 1.1, Lipase 822 H 09/08/19 06:35: Lactic Acid 2.7 H* 09/08/19 06:35: B-Natriuretic Peptide 140.8 H 09/08/19 06:55: Specimen Type ART, Sample Site R Radial, pH 7.20 L, Bicarbonate Actual 41.6 H, POC Total CO2 45, Base Excess 13 H, O2 Saturation 98, O2 % 60, ABG pCO2 107.6 H*, ABG pO2 147 H, Mo Test POS, Respiration Rate 12, O2 Delivery Device Bi / C PAP, EPAP 6, IPAP 12, Blood Gas Notified Whom ED , Blood Gas Notified Time 654 09/08/19 10:45: Lactic Acid 1.5 Current Medications Enoxaparin Sodium (Lovenox) 40 mg SC DAILY WEI Last Admin: 09/08/19 10:47 Dose: 40 mg Documented by: Furosemide (Lasix) 60 mg IV BID@1000,1800 WEI Sodium Chloride () 250 mls @ 15 mls/hr IV .[id number] PRN PRN Reason: Saline Flush Sodium Chloride () 250 mls @ 15 mls/hr IV .[id number] PRN PRN Reason: Additional IVPB Infusion Sodium Chloride () 10 - 40 ml IV UD PRN PRN Reason: SALINE FLUSH Last Admin: 09/08/19 10:47 Dose: 10 ml Documented by: Clinical Impression(s) from Imaging Studies Chest X-Ray 09/08/19 06:32 IMPRESSION: 1. No significant change. Right basilar small effusion with right lower lobe chronic appearing infiltrate or possibly mass. 2. Background chronic lung disease with emphysema and interstitial scarring. at 0747 Reported and signed by: Shailesh Olivares MD Electronically Signed: Shailesh Olivares, at 7:46 EST Tel , Service support , Assessment/Plan Active and Suspected Problems (Last Reviewed 07/31/19 @ 15:20 by Shu Chahal NP-C) COPD exacerbation (Acute) RECOMMENDATIONS: 1. BiPAP breaks as tolerated 2. Discontinue steroids. No antibiotics indicated 3. Agree with bronchodilators and diuretic therapy. 4. Wean oxygen as tolerated 5. Walking oximetry prior to discharge IMPRESSIONS: 1. Acute on chronic combined respiratory failure Patient with persistent infiltrate on chest x-ray and lower extremity edema. Patient is not reporting any change in cough at this time. Patient did not have significant leukocytosis at presentation. Clinical suspicion for an element of acute on chronic diastolic congestive heart failure complicating overall pulmonary condition. Would discontinue steroid therapy. Patient would benefit from continued diuresis. BiPAP breaks as tolerated. 2. 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 There has been no evidence of cancer recurrence according to the patient's pulmonary provider at [facility]. Patient was recently in rehab, and has not followed up for malignancy from my current available data. 3. 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 Patient appears to be responding to positive pressure, but will likely decompensate with taking a break if diuretics are not used. Await response to diuretic therapy. Patient also has pulmonary hypertension, likely type II, that will complicate overall condition. Patient will need a walking oximetry prior to discharge. 5. Pulmonary hypertension/hypertension/hyperlipidemia/advanced age/CODE STATUS Complicates care, management, recovery and prognosis. Physical therapy to work with patient as tolerated. Goals of care/CODE STATUS was discussed with the patient and he wishes to remain full code. Patient feels I have always improved in the past. TIME: 33 minutes critical care time spent addressing patient's acute on chronic combined respiratory failure, acute on chronic CHF, review of all data and collaboration with care team (9 AM to 11 AM) Code Visit 9xxxx: [id number] Critical care first hour
--- NOTE | 2019-09-08 15:34 | PCM.HP.STD ---
History of Present Illness Date of Admission: 09/08/19 Chief Complaint: SOB The patient is a 83 year old M with a PMH as below who presents to the hospital with shortness of breath. He says it is been going on for several days and is noticed that for the last several days he has been having swelling in his legs, arms and abdomen. He thinks that maybe the swelling in his abdomen was pushing this point preventing him from taking a deep breath. He is on chronic oxygen and was recently discharged on BiPAP which she states he has been very compliant with because has not been able to tolerate this at night. He denies any fevers or chills, and no productive cough. In the ER chest x-ray demonstrated right basilar effusion however no signs of a clear pneumonia. He was found to have a respiratory acidosis with a pH of 7.2 and a PCO2 of 107.6. He was placed on BiPAP in the ER and transferred to the ICU. 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) 06/11/17 Chronic respiratory failure (Chronic) COPD (chronic obstructive pulmonary disease) (Chronic) Conduction disorder of the heart (Chronic) Pulmonary hypertension (Chronic) GERD (gastroesophageal reflux disease) (Chronic) Bullous emphysema (Chronic) Medical History: Medical History (Last Reviewed 07/31/19 @ 15:20 by MARANDA LoveC) Paroxysmal atrial flutter (Chronic) I48.92 Aortic valve stenosis, nonrheumatic (Chronic) I35.0 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) I44.1 Chronic respiratory failure (Chronic) J96.10 COPD (chronic obstructive pulmonary disease) (Chronic) J44.9 Conduction disorder of the heart (Chronic) I45.9 Pulmonary hypertension (Chronic) I27.20 GERD (gastroesophageal reflux disease) (Chronic) K21.9 Bullous emphysema (Chronic) J43.9 Anxiety F41.9 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 Colon polyps Lung cancer (Inactive) C34.90 Allergies ampicillin Allergy (Verified 09/08/19 06:40) Anaphylaxis azithromycin Allergy (Verified 09/08/19 06:40) Rash codeine Allergy (Verified 09/08/19 06:40) Rash penicillin G Allergy (Verified 09/08/19 06:40) Rash Sulfa (Sulfonamide Antibiotics) Allergy (Verified 09/08/19 06:40) Rash sulfamethoxazole [From Bactrim] Allergy (Verified 09/08/19 06:40) Rash trimethoprim [From Bactrim] Allergy (Verified 09/08/19 06:40) Rash Home Medications: Ambulatory Orders Medication Instructions Recorded Acetaminophen [Tylenol Tablet] 650 mg PO Q6H PRN PRN #0 tab 10/24/16 Losartan Potassium 25 mg PO DAILY #0 06/12/17 Albuterol Aerosols [Ventolin 2.5 mg INHALATION Q4H PRN PRN #90 07/17/19 Aerosols] vial.neb. Amlodipine [Norvasc] 5 mg PO DAILY 08/13/19 Ipratropium/Albuterol Sulfate 3 ml INHALATION Q8 08/13/19 [Duoneb] albuterol sulfate 90 mcg/actuation 2 puff INHALATION Q4H PRN PRN #18 g 09/02/19 aerosol inhaler Furosemide 40 mg PO DAILY 09/08/19 Umeclidinium Brm/Vilanterol Tr 1 puff INHALATION DAILY 09/08/19 [Anoro Ellipta 62.5-25 Mcg INH] Surgical History: Surgical History (Last Reviewed 07/31/19 @ 15:20 by Shu Chahal NP-C) History of permanent cardiac pacemaker placement (Chronic) Z95.0 06/11/17 History of appendectomy Z98.890, Z90.49 Hx of cataract surgery Z98.49 Surgical History: appendectomy, cataract, pacemaker implantation Psychiatric History: Anxiety, Depression Lives: Spouse/ Significant Other Smoking Status: Unknown if ever smoked Alcohol: None Drugs: None - *Family History Paternal Family History: Family History (Last Reviewed 09/08/19 @ 07:59 by Kendall Richardson MD) Brother Diabetes Sister Diabetes Lung cancer History Items: Heart Disease - Father with history of heart disease, at age 96. Offspring Family History: Family History (Last Reviewed 09/08/19 @ 07:59 by Kendall Richardson MD) Brother Diabetes Sister Diabetes Lung cancer History Items: COPD Sibling Family History: Family History (Last Reviewed 09/08/19 @ 07:59 by Kendall Richardson MD) Brother Diabetes Sister Diabetes Lung cancer History Items: COPD, Diabetes, Heart Disease Maternal Family History: Family History (Last Reviewed 09/08/19 @ 07:59 by Kendall Richardson MD) Brother Diabetes Sister Diabetes Lung cancer History Items: Heart Disease, - - osteoporosis Review of Systems Constitutional: Denies: Chills, Fever, Weight Change HEENT: Denies: Head Aches, Sinus Congestion, Sinus Drainage Cardiovascular: Denies: Chest Pain, Palpitations Respiratory: Reports: Shortness of Breath. Denies: Cough, Shortness of breath at rest, Sputum production Gastrointestinal: Denies: Abdominal Pain, Nausea, Vomiting Genitourinary: Denies: Dysuria Musculoskeletal: Denies: Joint Pain, Joint Tenderness Skin: Denies: Rash, Wounds Neurological: Denies: Numbness, Tingling, Focal weakness Psychiatric: Denies: Anxiety, Depression, Homicidal Ideations, Suicidal Ideations Hematologic/ Lymphatic: Denies: Easy Bruising, Easy Bleeding VTE Information - Inpt Only VTE Present on Admission: No Patient Problems: Active and Suspected Problems (Last Reviewed 07/31/19 @ 15:20 by Shu Chahal NP-C) COPD exacerbation (Acute) - Physical Exam Vitals/I&O's: Vital Signs Temp Pulse Resp BP Pulse Ox 98.4 F 91 26 H 112/58 L 96 09/08/19 12:00 09/08/19 15:28 09/08/19 15:00 09/08/19 15:00 09/08/19 15:00 Oxygen Flow Rate (L/min) 6 Oxygen Delivery Method Bi-pap Weight: 140 lb 14.006 oz Body Mass Index (BMI) 22.7 Intake and Output for Last 24 Hours 09/06/19 09/07/19 09/08/19 23:59 23:59 23:59 Intake Total 0 / 0 Output Total 350 / 350 Balance -350 / -350 General: Alert, Oriented x3, Cooperative, No apparent distress HEENT: Atraumatic, PERRLA, EOMI, Normocephalic Oral: Moist Mucosa Neck: Supple, No JVD Lungs: Normal air movement, No rhonchi, Diminished, Wheezes Cardiovascular: Regular rate, Regular Rhythm, Normal S1, Normal S2, Murmur - 2 out of 6 CLYDE Abdomen: Soft, Non Tender, Non-Distended, No Hepato-splenomegaly Extremities: Capillary Refill Less than 3 Seconds, Edema - 3+ pitting edema bilateral lower extremities Skin: No rashes, No breakdown, - - Chronic venous stasis changes Neurological: Neuro grossly intact, Sensory exam intact to light touch and pain Psych/Mental Status: Normal Affect, Appropriate Laboratory Results 09/08/19 06:35: WBC 9.6, RBC 3.87 L, Hgb 11.1 L, Hct 37.2 L, MCV 96.1 H, MCH 28.7, MCHC 29.8 L, RDW Std Deviation 48.5 H, RDW Coeff of Earline 13.7, Plt Count 246, MPV 9.4, Immature Gran % (Auto) 0.300, Neut % (Auto) 45.0 L, Lymph % (Auto) 39.3, [place] % (Auto) 12.1 H, Eos % (Auto) 2.8, Baso % (Auto) 0.5, Absolute Neuts (auto) 4.3, Absolute Lymphs (auto) 3.77, Nucleated RBC % 0 09/08/19 06:35: PT 12.4, INR 1.0, APTT 31.3 09/08/19 06:35: Sodium 132 L, Potassium 4.0, Chloride 91 L, Carbon Dioxide 38.0 H, Anion Gap 3 L, BUN 10, Creatinine 0.71, Estim Creat Clear Calc 55.10, Est GFR (MDRD) Af Amer 137, Est GFR (MDRD) Non-Af 113, BUN/Creatinine Ratio 14.1, Glucose 212 H, Calcium 9.3, Total Bilirubin 0.50, AST 19, ALT 29, Alkaline Phosphatase 90, Troponin I < 0.015, Total Protein 7.0, Albumin 3.6, Globulin 3.4, Albumin/Globulin Ratio 1.1, Lipase 822 H 09/08/19 06:35: Lactic Acid 2.7 H* 09/08/19 06:35: B-Natriuretic Peptide 140.8 H 09/08/19 06:55: Specimen Type ART, Sample Site R Radial, pH 7.20 L, Bicarbonate Actual 41.6 H, POC Total CO2 45, Base Excess 13 H, O2 Saturation 98, O2 % 60, ABG pCO2 107.6 H*, ABG pO2 147 H, Mo Test POS, Respiration Rate 12, O2 Delivery Device Bi / C PAP, EPAP 6, IPAP 12, Blood Gas Notified Whom ED MD, Blood Gas Notified Time 654 09/08/19 10:45: Lactic Acid 1.5 Current Medications Enoxaparin Sodium (Lovenox) 40 mg SC DAILY WEI Last Admin: 09/08/19 10:47 Dose: 40 mg Documented by: Furosemide (Lasix) 60 mg IV BID@1000,1800 WEI Sodium Chloride () 250 mls @ 15 mls/hr IV .[id number] PRN PRN Reason: Saline Flush Sodium Chloride () 250 mls @ 15 mls/hr IV .[id number] PRN PRN Reason: Additional IVPB Infusion Sodium Chloride () 10 - 40 ml IV UD PRN PRN Reason: SALINE FLUSH Last Admin: 09/08/19 10:47 Dose: 10 ml Documented by: Assessment/Plan All Active Problems (Last Reviewed 07/31/19 @ 15:20 by Shu Chahal, EUGENE-C) COPD exacerbation (Acute) 1. Acute on chronic hypoxic respiratory failure with hypercapnic respiratory failure and respiratory acidosis -Given the history with the lower extremity edema and a sensation of abdominal fullness, this is likely secondary to acute on chronic chronic diastolic CHF -We will hold off on any steroids as it does not appear to be a COPD issue as he was noncompliant with BiPAP -Appreciate cardiology and pulmonology input -Continue with IV diuresis, echo is pending 2. History of non-small cell lung cancer/history of tobacco abuse/severe centrilobular bullous emphysema with stage III COPD -We will continue with steroids for his COPD and taper on DC -The right lower lobe abnormality seen on x-ray is chronic and felt to be secondary to his radiation therapy for his non-small cell lung cancer -He does have an oxygen concentrator at home for up to 5 L of need 3. Severe pulmonary hypertension/acute on chronic diastolic CHF/moderate to severe aortic valve stenosis/pacemaker for Mobitz type II AV block/HTN -He has a pacemaker in for his Mobitz type II -Continue with IV Lasix for his diastolic dysfunction -Blood pressure is stable we will continue to monitor, hold Norvasc and continue with losartan, if necessary can increase his losartan 4. Anxiety/depression -Stable -Continue with his Zoloft DVT: Lovenox Code Visit Inpatient E&M: [id number] Init Hosp L3
--- NOTE | 2019-09-08 16:21 | CHAPLAIN ---
patient was sleeping and on bi-pap; did not disturb
[2019-09-08] MEDS: Albuterol 2.5 MG/3 ML VIAL.NEB. INHALATION (19:05)
--- NOTE | 2019-09-08 22:35 | CPS ---
pt placed on Trilogy with 5 lpm O2 bleed inline.
[2019-09-09] VITALS (28 sets, daily range): BP systolic 98–144; BP diastolic 44–95; PULSE 71–103; RESP 15–27; TEMP 36.5–37.2; O2SAT 77–100
[2019-09-09 04:20] LABS: Absolute Lymphocyte Count 0.86 X10^3/uL (0.83-4.51); Absolute Neutrophil Count 2.3 X10^3/uL (2.0-7.7); Basophil# 0.01 X10^3/uL; Basophil% 0.3 % (0-1); Eosinophil# 0.01 X10^3/uL; Eosinophils% 0.3 % (0-5); Hemoglobin 8.8 g/dL (13.0-16.5); Lymphocyte # 0.86 X10^3/ul (4.0); Lymphocyte % 22.1 % (19-41); Mean Corp Hgb Conc 31.4 g/dL (32-36); Mean Corpuscular Hgb 29.3 pg (27.0-32.0); Mean Corpuscular Volume 93.3 fL (80-94); Mean Platelet Vol. 8.8 fl (6.2-12.0); Monocyte# 0.75 X10^3/uL; Monocyte% 19.2 % (0-10); NRBC Flagged by Analyzer 0 % (0-5); Neutrophil # 2.26 X10^3/uL (2.7-7.7); Neutrophil % 57.8 % (47-70); Platelet Count 188 K/mm3 (150-450); RBC Distribution Width CV 13.6 % (11.6-14.6); RBC Distribution Width SD 46.9 fl (35.1-43.9); White Blood Count 3.9 K/mm3 (4.4-11.0)
[2019-09-09 04:35] LABS: AST(SGOT) 14 U/L (15-37); Alanine Aminotransfer ALT/SGPT 23 U/L (16-61); Alkaline Phosphatase 69 U/L (45-117); Anion Gap 3 (5-15); BUN 19 mg/dL (7-18); BUN/Creat Ratio 26.6 RATIO (10-20); Calcium,Total 8.9 mg/dL (8.5-10.1); Chloride 93 mmol/L (98-107); Creatinine, Serum 0.71 mg/dL (0.70-1.30); EST Glomerular Filtration Rate 112 mL/min (>60); Est Glom Filt Rate - Afr Amer 135 mL/min (>60); Estimated Creatinine Clearance 51.39 ml/min; Glucose 121 mg/dL (74-106); Magnesium 2.1 mg/dL (1.6-2.6); Phosphorus 3.6 mg/dL (2.5-4.9); Potassium 3.8 mmol/L (3.5-5.1); Sodium Level 134 mmol/L (136-145)
[2019-09-09] MEDS: Ipratropium/Albuterol Sulfate 3 ML AMPUL.NEB INHALATION ×3 (06:55→22:20)
--- NOTE | 2019-09-09 07:17 | PCM.PN.INT ---
Subjective: Patient much improved this morning. Patient states that he feels back to his baseline. Patient was able to use his home trilogy machine for approximately 7 hours overnight. Patient reports that he had some difficulty with mask fit, but I think I have it now. Patient is reporting significant improvement in lower extremity edema. No cough, chest pain, nausea or vomiting is reported. General: Alert, Oriented x3, Cooperative, No apparent distress, - - Appears older than stated age. HEENT: Atraumatic, PERRLA, EOMI, Normocephalic, - - No scleral icterus or injection noted Oral: Moist Mucosa, No Gingival or Mucosal Lesions/ Ulcerations, - - Dentures in place. Neck: Supple, No JVD, No Nodes, Trachea Midline Lungs: No rhonchi, No wheeze, No rales, Diminished, - - Symmetric expansion. No dullness to percussion. Cardiovascular: Regular rate, Normal S1, Normal S2, Murmur, No rub noted, No Gallop Abdomen: Bowel Sounds Present, Soft, Non Tender, Non-Distended Extremities: No cyanosis, Capillary Refill Less than 3 Seconds, Clubbing, Edema - Trace to 1+ lower extremity Skin: No rashes, No breakdown Musculoskeletal: No Tenderness to Palpation of Joints or Extremities Lymphatic: No Cervical, Supraclavicular, or Inguinal Adenopathy Neurological: Cranial nerves II-XII grossly intact, Neuro grossly intact, Motor Exam 5/5 strength throughout Psych/Mental Status: Alert and oriented to time, place, person, mood and affect Vital Signs Temp Pulse Resp BP Pulse Ox 36.9 C 87 23 H 108/59 L 94 09/09/19 04:00 09/09/19 07:00 09/09/19 07:00 09/09/19 07:00 09/09/19 07:00 Oxygen Flow Rate (L/min) 5 Oxygen Delivery Method Nasal Cannula Weight: 61.4 kg Body Mass Index (BMI) 22.7 Intake and Output for Last 24 Hours 09/07/19 09/08/19 09/09/19 23:59 23:59 23:59 Intake Total 110 / 110 Output Total 1285 / 1285 375 / 375 Balance -1175 / -1175 -375 / -375 Labs (Last 48 Hours) 09/08/19 09/08/19 09/08/19 06:35 06:35 06:35 WBC 9.6 RBC 3.87 L Hgb 11.1 L Hct 37.2 L MCV 96.1 H MCH 28.7 MCHC 29.8 L RDW Std Deviation 48.5 H RDW Coeff of Earline 13.7 Plt Count 246 MPV 9.4 Immature Gran % (Auto) 0.300 Neut % (Auto) 45.0 L Lymph % (Auto) 39.3 [place] % (Auto) 12.1 H Eos % (Auto) 2.8 Baso % (Auto) 0.5 Absolute Neuts (auto) 4.3 Absolute Lymphs (auto) 3.77 Nucleated RBC % 0 PT 12.4 INR 1.0 APTT 31.3 Specimen Type Sample Site pH Bicarbonate Actual POC Total CO2 Base Excess O2 Saturation O2 % ABG pCO2 ABG pO2 Mo Test Respiration Rate O2 Delivery Device EPAP IPAP Blood Gas Notified Whom Blood Gas Notified Time Sodium 132 L Potassium 4.0 Chloride 91 L Carbon Dioxide 38.0 H Anion Gap 3 L BUN 10 Creatinine 0.71 Estim Creat Clear Calc 55.10 Est GFR (MDRD) Af Amer 137 Est GFR (MDRD) Non-Af 113 BUN/Creatinine Ratio 14.1 Glucose 212 H Lactic Acid Calcium 9.3 Phosphorus Magnesium Total Bilirubin 0.50 AST 19 ALT 29 Alkaline Phosphatase 90 Troponin I < 0.015 B-Natriuretic Peptide Total Protein 7.0 Albumin 3.6 Globulin 3.4 Albumin/Globulin Ratio 1.1 Lipase 822 H 09/08/19 09/08/19 09/08/19 06:35 06:35 06:55 WBC RBC Hgb Hct MCV MCH MCHC RDW Std Deviation RDW Coeff of Earline Plt Count MPV Immature Gran % (Auto) Neut % (Auto) Lymph % (Auto) [place] % (Auto) Eos % (Auto) Baso % (Auto) Absolute Neuts (auto) Absolute Lymphs (auto) Nucleated RBC % PT INR APTT Specimen Type ART Sample Site R Radial pH 7.20 L Bicarbonate Actual 41.6 H POC Total CO2 45 Base Excess 13 H O2 Saturation 98 O2 % 60 ABG pCO2 107.6 H* ABG pO2 147 H Mo Test POS Respiration Rate 12 O2 Delivery Device Bi / C PAP EPAP 6 IPAP 12 Blood Gas Notified Whom ED Blood Gas Notified Time 654 Sodium Potassium Chloride Carbon Dioxide Anion Gap BUN Creatinine Estim Creat Clear Calc Est GFR (MDRD) Af Amer Est GFR (MDRD) Non-Af BUN/Creatinine Ratio Glucose Lactic Acid 2.7 H* Calcium Phosphorus Magnesium Total Bilirubin AST ALT Alkaline Phosphatase Troponin I B-Natriuretic Peptide 140.8 H Total Protein Albumin Globulin Albumin/Globulin Ratio Lipase 09/08/19 09/09/19 09/09/19 10:45 04:10 04:10 WBC 3.9 L RBC 3.00 L Hgb 8.8 L Hct 28.0 L MCV 93.3 MCH 29.3 MCHC 31.4 L RDW Std Deviation 46.9 H RDW Coeff of Earline 13.6 Plt Count 188 MPV 8.8 Immature Gran % (Auto) 0.300 Neut % (Auto) 57.8 Lymph % (Auto) 22.1 [place] % (Auto) 19.2 H Eos % (Auto) 0.3 Baso % (Auto) 0.3 Absolute Neuts (auto) 2.3 Absolute Lymphs (auto) 0.86 Nucleated RBC % 0 PT INR APTT Specimen Type Sample Site pH Bicarbonate Actual POC Total CO2 Base Excess O2 Saturation O2 % ABG pCO2 ABG pO2 Mo Test Respiration Rate O2 Delivery Device EPAP IPAP Blood Gas Notified Whom Blood Gas Notified Time Sodium 134 L Potassium 3.8 Chloride 93 L Carbon Dioxide 38.0 H Anion Gap 3 L BUN 19 H Creatinine 0.71 Estim Creat Clear Calc 51.39 Est GFR (MDRD) Af Amer 135 Est GFR (MDRD) Non-Af 112 BUN/Creatinine Ratio 26.6 H Glucose 121 H Lactic Acid 1.5 Calcium 8.9 Phosphorus 3.6 Magnesium 2.1 Total Bilirubin 0.40 AST 14 L ALT 23 Alkaline Phosphatase 69 Troponin I B-Natriuretic Peptide Total Protein 6.0 L Albumin 3.0 L Globulin 3.0 Albumin/Globulin Ratio 1.0 Lipase Clinical Impression(s) from Imaging Studies Chest X-Ray 09/08/19 06:32 IMPRESSION: 1. No significant change. Right basilar small effusion with right lower lobe chronic appearing infiltrate or possibly mass. 2. Background chronic lung disease with emphysema and interstitial scarring. at 0747 Reported and signed by: Shailesh Olivares MD Electronically Signed: Shailesh Olivares, at 7:46 EST Tel , Service support , Medical Necessity - Tobacco Use Smoking Status: Unknown if ever smoked Assessment/Plan All Active Problems (Last Reviewed 07/31/19 @ 15:20 by Shu Chahal NP-C) COPD exacerbation (Acute) RECOMMENDATIONS: 1. BiPAP breaks as tolerated during the day. Continue trilogy at night 2. No steroids or antibiotics indicated 3. Agree with bronchodilators. May decrease diuretic therapy to baseline from my perspective 4. Wean oxygen as tolerated 5. Walking oximetry prior to discharge 6. Okay to leave the intensive care unit from my perspective IMPRESSIONS: 1. Acute on chronic combined respiratory failure Patient with persistent infiltrate on chest x-ray and lower extremity edema. Patient is not reporting any change in cough at this time. Patient did not have significant leukocytosis at presentation. Clinical suspicion for an element of acute on chronic diastolic congestive heart failure complicating overall pulmonary condition. BiPAP can likely be transition to as needed during the day. Patient should continue trilogy at night. Anticipate diuretic therapy can be decreased back to baseline 2. Personal history of non-small cell lung cancer/right lower lobe masslike density From review of outside medical records through the [facility], the right lower lobe abnormality is chronic in nature and felt to be secondary to post radiation fibrosis. There has been no evidence of cancer recurrence according to the patient's pulmonary provider at [facility] in the past. 3. 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 Patient responded well to diuretic therapy. Likely okay to transition back to his 40 mg of Lasix twice daily from my perspective. Patient also has pulmonary hypertension, likely type II, that will complicate overall condition. Patient will need a walking oximetry prior to discharge. 4. Pulmonary hypertension/hypertension/hyperlipidemia/advanced age/CODE STATUS Complicates care, management, recovery and prognosis. Physical therapy to work with patient as tolerated. Goals of care/CODE STATUS was discussed with the patient and he wishes to remain full code. Patient feels I have always improved in the past. Code Visit Inpatient E&M: 17098 [facility] Hosp L3
--- NOTE | 2019-09-09 08:53 | PN_ITS ---
Patient Problems: Active and Suspected Problems (Last Reviewed 07/31/19 @ 15:20 by CAITLIN Love) COPD exacerbation (Acute) Subjective: Feeling better today, thinks that he is back to baseline. Vitals/I&O's: Vital Signs Temp Pulse Resp BP Pulse Ox 98.7 F 96 18 120/62 96 09/09/19 08:00 09/09/19 08:00 09/09/19 08:00 09/09/19 08:00 09/09/19 08:00 Oxygen Flow Rate (L/min) 4 Oxygen Delivery Method Nasal Cannula Weight: 135 lb 5.821 oz Body Mass Index (BMI) 22.7 Intake and Output for Last 24 Hours 09/07/19 09/08/19 09/09/19 23:59 23:59 23:59 Intake Total 110 / 110 Output Total 1285 / 1285 375 / 375 Balance -1175 / -1175 -375 / -375 General: Alert, Oriented x3, Cooperative, No apparent distress HEENT: Atraumatic, PERRLA, EOMI, Normocephalic Oral: Moist Mucosa Neck: Supple, No JVD Lungs: Normal air movement, No rhonchi, Diminished, Wheezes Cardiovascular: Regular rate, Regular Rhythm, Normal S1, Normal S2, Murmur - 2 out of 6 CLYDE Abdomen: Soft, Non Tender, Non-Distended, No Hepato-splenomegaly Extremities: Capillary Refill Less than 3 Seconds, Edema - 1+ pitting edema bilateral lower extremities Skin: No rashes, No breakdown, - - Chronic venous stasis changes Neurological: Neuro grossly intact, Sensory exam intact to light touch and pain Psych/Mental Status: Normal Affect, Appropriate Laboratory Results 09/08/19 10:45: Lactic Acid 1.5 09/09/19 04:10: WBC 3.9 L, RBC 3.00 L, Hgb 8.8 L, Hct 28.0 L, MCV 93.3, MCH 29.3, MCHC 31.4 L, RDW Std Deviation 46.9 H, RDW Coeff of Earline 13.6, Plt Count 188, MPV 8.8, Immature Gran % (Auto) 0.300, Neut % (Auto) 57.8, Lymph % (Auto) 22.1, [place] % (Auto) 19.2 H, Eos % (Auto) 0.3, Baso % (Auto) 0.3, Absolute Neuts (auto) 2.3, Absolute Lymphs (auto) 0.86, Nucleated RBC % 0 09/09/19 04:10: Sodium 134 L, Potassium 3.8, Chloride 93 L, Carbon Dioxide 38.0 H, Anion Gap 3 L, BUN 19 H, Creatinine 0.71, Estim Creat Clear Calc 51.39, Est GFR (MDRD) Af Amer 135, Est GFR (MDRD) Non-Af 112, BUN/Creatinine Ratio 26.6 H, Glucose 121 H, Calcium 8.9, Phosphorus 3.6, Magnesium 2.1, Total Bilirubin 0.40, AST 14 L, ALT 23, Alkaline Phosphatase 69, Total Protein 6.0 L, Albumin 3.0 L, Globulin 3.0, Albumin/Globulin Ratio 1.0 Current Medications Acetaminophen (Tylenol) 650 mg PO Q6H PRN PRN PRN Reason: Mild Pain (scale 0-3)/T>100.7 Albuterol Sulfate (Ventolin Aerosols) 2.5 mg INHALATION Q4H PRN PRN PRN Reason: dyspnea, wheezing Last Admin: 09/08/19 19:05 Dose: 2.5 mg Documented by: Albuterol/Ipratropium (Duoneb) 3 ml INHALATION Q8H.RT [facility] Last Admin: 09/09/19 06:55 Dose: 3 ml Documented by: Enoxaparin Sodium (Lovenox) 40 mg SC DAILY [facility] Last Admin: 09/08/19 10:47 Dose: 40 mg Documented by: Furosemide (Lasix) 60 mg IV BID@1000,1800 [facility] Last Admin: 09/08/19 17:57 Dose: 60 mg Documented by: Sodium Chloride () 250 mls @ 15 mls/hr IV .[id number] PRN PRN Reason: Saline Flush Sodium Chloride () 250 mls @ 15 mls/hr IV .[id number] PRN PRN Reason: Additional IVPB Infusion Losartan Potassium (Cozaar) 25 mg PO DAILY [facility] Sodium Chloride () 10 - 40 ml IV UD PRN PRN Reason: SALINE FLUSH Last Admin: 09/08/19 17:57 Dose: 10 ml Documented by: STROKE Vital Signs/Narrative: Vital Signs Temp Pulse Resp BP Pulse Ox 09/09/19 08:00 98.7 F 96 18 120/62 96 09/09/19 07:15 79 09/09/19 07:00 87 23 H 108/59 L 94 09/09/19 06:57 78 22 H 96 09/09/19 06:00 82 20 H 109/59 L 100 09/09/19 05:00 74 15 113/62 100 Medical Necessity - Tobacco Use Smoking Status: Unknown if ever smoked Assessment/Plan All Active Problems (Last Reviewed 07/31/19 @ 15:20 by Shu Chahal NP-C) COPD exacerbation (Acute) 1. Acute on chronic hypoxic respiratory failure with hypercapnic respiratory failure and respiratory acidosis -Given the history with the lower extremity edema and a sensation of abdominal fullness, this is likely secondary to acute on chronic chronic diastolic CHF -We will hold off on any steroids as it does not appear to be a COPD issue as he was noncompliant with BiPAP -Appreciate cardiology and pulmonology input -Continue with IV diuresis, echo remains unchanged 2. History of non-small cell lung cancer/history of tobacco abuse/severe centrilobular bullous emphysema with stage III COPD -We will continue with steroids for his COPD and taper on DC -The right lower lobe abnormality seen on x-ray is chronic and felt to be secondary to his radiation therapy for his non-small cell lung cancer -He does have an oxygen concentrator at home for up to 5 L of need 3. Severe pulmonary hypertension/acute on chronic diastolic CHF/moderate to severe aortic valve stenosis/pacemaker for Mobitz type II AV block/HTN -He has a pacemaker in for his Mobitz type II -Continue with IV Lasix for his diastolic dysfunction -Blood pressure is stable we will continue to monitor, hold Norvasc and continue with losartan, if necessary can increase his losartan 4. Anxiety/depression -Stable -Continue with his Zoloft DVT: Lovenox Code Visit Inpatient E&M: 50893 [facility] Hosp L2
--- NOTE | 2019-09-09 09:12 | PN.CARD_ITS ---
Subjectve: The patient states he is feeling better overall-breathing better overall. Objective: Vital Signs Temp Pulse Resp BP Pulse Ox 98.7 F 94 26 H 98/44 L 96 09/09/19 08:00 09/09/19 09:00 09/09/19 09:00 09/09/19 09:00 09/09/19 09:00 Oxygen Flow Rate (L/min) 4 Oxygen Delivery Method Nasal Cannula Weight: 135 lb 5.821 oz Body Mass Index (BMI) 22.7 Intake and Output for Last 24 Hours 09/07/19 09/08/19 09/09/19 23:59 23:59 23:59 Intake Total 110 / 110 Output Total 1285 / 1285 375 / 375 Balance -1175 / -1175 -375 / -375 General: Awake, Alert, Oriented x 3, Cooperative, No Acute Distress HEENT: Atraumatic, Normocephalic, PERRL, EOMI Oral: Moist Mucosa Neck: Supple, Good ROM Lungs: Diminished Isiah Bases Cardiovascular: Regular Rhythm, Normal S1, Normal S2 Murmur Murmur: Grade 3/6, High Pitched, Mid Systolic, LLSB, LVOT, Sternal Notch Abdomen: Bowel Sounds Present, Soft, Non Tender Extremities: Mild RLE Edema, Mild LLE Edema 09/08/19 10:45: Lactic Acid 1.5 09/09/19 04:10: WBC 3.9 L, RBC 3.00 L, Hgb 8.8 L, Hct 28.0 L, MCV 93.3, MCH 29.3, MCHC 31.4 L, Plt Count 188, MPV 8.8, Immature Gran % (Auto) 0.300, Neut % (Auto) 57.8, Lymph % (Auto) 22.1, [place] % (Auto) 19.2 H, Eos % (Auto) 0.3, Baso % (Auto) 0.3, Absolute Neuts (auto) 2.3, Nucleated RBC % 0 09/09/19 04:10: Sodium 134 L, Potassium 3.8, Chloride 93 L, Carbon Dioxide 38.0 H, Anion Gap 3 L, BUN 19 H, Creatinine 0.71, Est GFR (MDRD) Af Amer 135, Est GFR (MDRD) Non-Af 112, BUN/Creatinine Ratio 26.6 H, Glucose 121 H, Calcium 8.9, Phosphorus 3.6, Magnesium 2.1, Total Bilirubin 0.40 Rhythm: Electronic ventricular paced rhythm Echo: Interpretation Summary Normal LV size. Left ventricular systolic function is normal. The estimated ejection fraction is 55 %. Stage 1 diastolic dysfunction. Moderate pulmonary hypertension. Mean aortic valve gradient 23 mmHg. Compared to the previous the AV sthe same with the mean gradient unchanged. The pulmonary pressures are better. Medical Necessity - Tobacco Use Smoking Status: Unknown if ever smoked Assessment/Plan 1. Aortic valve stenosis The patient has undergone follow-up evaluation with a transthoracic echocardiogram. Based upon the echocardiographic report, based upon the aortic valve mean gradient, his aortic valve stenosis appears to be moderate at this time. At the present time the patient will continue to be followed by history, exam, and echocardiogram as deemed appropriate. 2. Paroxysmal atrial dysrhythmia-fibrillation/flutter The patient continues at this time in an underlying electronic ventricular paced rhythm. In the past, based upon his easy bruising/bleeding issues, he has not wanted to proceed with anticoagulant therapy. He was on aspirin therapy. However he states that his spouse stopped giving this to him because of his concern of easy bruising/bleeding. 3. 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 It has been interrogated in the past. It has been functioning appropriately. 4. Decreased diastolic compliance He has had a history of decreased diastolic compliance per his past medical records. At the moment he will need to continue to be followed. He will need continued medical therapy. Based upon concerns of volume status this does include diuretic therapy. 5. Essential hypertension As part of his medication adjustment, based upon volume retention concerns, his amlodipine was discontinued. Thus he may need, depending upon his blood pressure response, further adjustment of antihypertensive therapy with respect to his diuretics, and other medications, taking into consideration his aortic valve disorder, etc. 6. COPD with acute on chronic respiratory failure He will continue evaluation care per internal medicine and pulmonology/critical care medicine. This includes evaluation of his COPD status and his former status of underlying lung carcinoma. Comment: Patient's case has been discussed and reviewed with the patient and Dr. Powers. This note was generated using a voice recognition system and there may be incorrect words, spelling or punctuation that were not noted when reviewing the office note prior to saving.
--- NOTE | 2019-09-09 09:22 | CASEMGMT ---
RN CM Readmission Note Previous Admission: 08/13/19-08/17/2019 Diagnosis: COPD DC Disposition: Home, declined HHC. Pt attended f/u appointment for pulmonology and PCP. States Trilogy was not working well and developed SOB. Noted pt had appts with Dr. Mccormick (pulmonology) and Dr. Mccartney ([facility] pulmonology). Spoke with patient who would like RN CM to cancel appt with Dr. Mccormick and pt will continue f/u care with Dr. Mccartney. Call to office, and appt cancelled with Dr. Mccormick for October 07, 2019. -Noted on admission yesterday that pt felt his trilogy was not working well. RN CM had asked nurse to have bring in, and RN CM contacted Resp Therapy to request they assist pt with seeing if he is placing mask, etc well. Pt wore Trilogy last night.Trilogy is through [facility]. Current Admission Presentation: COPD/CHF Intro role of CM and purpose of RN CM assessment to patient and his . Demographics, PCP and Pharmacy verified. Discussed readmission concerns. and pt state he does well for a while, then shortness of breath comes on quickly and pt has difficulty managing at home. PCP: Dr. Valencia Specialists: Dr. Mccartney, pulmonology Preferred Pharmacy: [facility] HHC: [facility] past Patient DC goals: Home DC PLAN: Home. would like to consider HHC, but not sure pt will need. Payton CRAWFORD RN ACM
[2019-09-09] MEDS: Enoxaparin 40 MG/0.4 ML Syringe SC (10:32)
[2019-09-09] MEDS: Losartan Potassium 25 MG Tablet PO (10:32)
[2019-09-09] MEDS: Furosemide 100 MG/10 ML Vial 60 MG IV ×2 (10:32→17:28)
[2019-09-09] MEDS: Acetaminophen 325 MG Tablet 650 MG PO (13:42)
--- NOTE | 2019-09-09 15:35 | CHAPLAIN ---
Type of Pastoral Visit _x__ Initial Visit ___ Follow-up Visit ___ On-call Visit ___ General Patient Visit ___ Spiritual Assessment ___ Family Conference ___ Bereavement ___ Rapid Response ___ Code Blue ___ Other (describe below) Pastoral Care Referral From _x__ Patient ___ Family ___ Nurse ___ Physician ___ Sign Out Clerk ___ Cryolite Recovery Operator ___ Other (describe below) Sacrament/Intervention _x__ Active listening ___ Anointing ___ Buddhism ___ Bereavement ___ Communion _x__ Teena exploration ___ _x__ Life review _x__ Prayer ___ Reconciliation ___ Sacrament of Sick _x__ Supportive presence ___ Wedding ___ Other (describe below) Pastoral Comments
[2019-09-09] MEDS: 0.9% Saline Lock 10 ML Syringe IV (17:28)
[2019-09-10] VITALS (10 sets, daily range): BP systolic 101–120; BP diastolic 38–59; PULSE 76–97; RESP 18–20; TEMP 36.3–36.8; O2SAT 95–100
[2019-09-10 06:28] LABS: Absolute Lymphocyte Count 1.19 X10^3/uL (0.83-4.51); Absolute Neutrophil Count 3.7 X10^3/uL (2.0-7.7); Basophil# 0.02 X10^3/uL; Basophil% 0.3 % (0-1); Eosinophil# 0.16 X10^3/uL; Eosinophils% 2.7 % (0-5); Hemoglobin 9.3 g/dL (13.0-16.5); Lymphocyte # 1.19 X10^3/ul (4.0); Lymphocyte % 20.1 % (19-41); Mean Corpuscular Hgb 28.2 pg (27.0-32.0); Mean Corpuscular Volume 93.9 fL (80-94); Mean Platelet Vol. 9.1 fl (6.2-12.0); Monocyte# 0.86 X10^3/uL; Monocyte% 14.5 % (0-10); NRBC Flagged by Analyzer 0 % (0-5); Neutrophil # 3.68 X10^3/uL (2.7-7.7); Neutrophil % 62.2 % (47-70); Platelet Count 227 K/mm3 (150-450); RBC Distribution Width SD 47.9 fl (35.1-43.9); White Blood Count 5.9 K/mm3 (4.4-11.0)
[2019-09-10 06:48] LABS: Anion Gap 1 (5-15); BUN 17 mg/dL (7-18); BUN/Creat Ratio 23.7 RATIO (10-20); Calcium,Total 8.9 mg/dL (8.5-10.1); Chloride 93 mmol/L (98-107); Creatinine, Serum 0.72 mg/dL (0.70-1.30); EST Glomerular Filtration Rate 112 mL/min (>60); Est Glom Filt Rate - Afr Amer 135 mL/min (>60); Estimated Creatinine Clearance 48.25 ml/min; Glucose 91 mg/dL (74-106); Potassium 3.6 mmol/L (3.5-5.1); Sodium Level 136 mmol/L (136-145)
[2019-09-10] MEDS: Ipratropium/Albuterol Sulfate 3 ML AMPUL.NEB INHALATION (07:28)
--- NOTE | 2019-09-10 09:36 | PN_ITS ---
Patient Problems: Active and Suspected Problems (Last Reviewed 07/31/19 @ 15:20 by CAITLIN Love) COPD exacerbation (Acute) Subjective: Patient reports subjective improvement in overall condition. Patient back to his baseline of 4 L nasal cannula at rest. Patient does state that he needs to have a bowel movement. No cough has been reported. Patient did wear his trilogy machine overnight. Patient is not reporting any complications with placement of the mask. - Physical Exam Vitals/I&O's: Vital Signs Temp Pulse Resp BP Pulse Ox 36.3 C L 83 18 120/59 L 98 09/10/19 08:05 09/10/19 08:05 09/10/19 08:05 09/10/19 08:05 09/10/19 08:25 Oxygen Flow Rate (L/min) 4 Oxygen Delivery Method Nasal Cannula Weight: 59.9 kg Body Mass Index (BMI) 22.7 Intake and Output for Last 24 Hours 09/08/19 09/09/19 09/10/19 23:59 23:59 23:59 Intake Total 110 / 110 370 / 370 100 / 100 Output Total 1285 / 1285 2675 / 2675 150 / 150 Balance -1175 / -1175 -2305 / -2305 -50 / -50 General: Alert, Oriented x3, Cooperative, No apparent distress, - - Appears older than stated age. No conversational dyspnea. HEENT: Atraumatic, PERRLA, EOMI, Normocephalic, - - No scleral icterus or injection noted Oral: Moist Mucosa, No Gingival or Mucosal Lesions/ Ulcerations Neck: Supple, No JVD, No Nodes, Trachea Midline Lungs: No rhonchi, No wheeze, No rales, Diminished Cardiovascular: Normal S1, Normal S2, Murmur, No rub noted, No Gallop Abdomen: Bowel Sounds Present, Soft, Non Tender, Non-Distended Extremities: No cyanosis, No edema, Clubbing Skin: No rashes, No breakdown Musculoskeletal: No Tenderness to Palpation of Joints or Extremities Lymphatic: No Cervical, Supraclavicular, or Inguinal Adenopathy Neurological: Cranial nerves II-XII grossly intact, Neuro grossly intact, Motor Exam 5/5 strength throughout Psych/Mental Status: Alert and oriented to time, place, person, mood and affect Microbiology Past 72 Hours 09/08/19 06:50 Blood Culture (Wb) - Anticubital Left Blood Culture - Preliminary No growth in 48 hours. 09/08/19 06:40 Blood Culture (Wb) - Anticubital Right Blood Culture - Preliminary No growth in 48 hours. Laboratory Results 09/10/19 06:15: WBC 5.9, RBC 3.30 L, Hgb 9.3 L, Hct 31.0 L, MCV 93.9, MCH 28.2, MCHC 30.0 L, RDW Std Deviation 47.9 H, RDW Coeff of Earline 14.0, Plt Count 227, MPV 9.1, Immature Gran % (Auto) 0.200, Neut % (Auto) 62.2, Lymph % (Auto) 20.1, [place] % (Auto) 14.5 H, Eos % (Auto) 2.7, Baso % (Auto) 0.3, Absolute Neuts (auto) 3.7, Absolute Lymphs (auto) 1.19, Nucleated RBC % 0 09/10/19 06:15: Sodium 136, Potassium 3.6, Chloride 93 L, Carbon Dioxide 42.0 H, Anion Gap 1 L, BUN 17, Creatinine 0.72, Estim Creat Clear Calc 48.25, Est GFR (MDRD) Af Amer 135, Est GFR (MDRD) Non-Af 112, BUN/Creatinine Ratio 23.7 H, Glucose 91, Calcium 8.9 Current Medications Acetaminophen (Tylenol) 650 mg PO Q6H PRN PRN PRN Reason: Mild Pain (scale 0-3)/T>100.7 Last Admin: 09/09/19 13:42 Dose: 650 mg Documented by: Albuterol Sulfate (Ventolin Aerosols) 2.5 mg INHALATION Q4H PRN PRN PRN Reason: dyspnea, wheezing Last Admin: 09/08/19 19:05 Dose: 2.5 mg Documented by: Albuterol/Ipratropium (Duoneb) 3 ml INHALATION Q8H.RT [facility] Last Admin: 09/10/19 07:28 Dose: 3 ml Documented by: Enoxaparin Sodium (Lovenox) 40 mg SC DAILY [facility] Last Admin: 09/09/19 10:32 Dose: 40 mg Documented by: Furosemide (Lasix) 60 mg IV BID@1000,1800 [facility] Last Admin: 09/09/19 17:28 Dose: 60 mg Documented by: Sodium Chloride () 250 mls @ 15 mls/hr IV .[id number] PRN PRN Reason: Saline Flush Sodium Chloride () 250 mls @ 15 mls/hr IV .[id number] PRN PRN Reason: Additional IVPB Infusion Losartan Potassium (Cozaar) 25 mg PO DAILY [facility] Last Admin: 09/09/19 10:32 Dose: 25 mg Documented by: Sodium Chloride () 10 - 40 ml IV UD PRN PRN Reason: SALINE FLUSH Last Admin: 09/09/19 17:28 Dose: 10 ml Documented by: Medical Necessity - Tobacco Use Smoking Status: Unknown if ever smoked Assessment/Plan All Active Problems (Last Reviewed 07/31/19 @ 15:20 by Shu Chahal NP-C) COPD exacerbation (Acute) RECOMMENDATIONS: 1. Continue trilogy at night 2. No steroids or antibiotics indicated 3. Agree with bronchodilators. Diuretics per cardiology 4. Wean oxygen as tolerated 5. Walking oximetry prior to discharge 6. Okay to discharge from a pulmonary perspective IMPRESSIONS: 1. Acute on chronic combined respiratory failure Patient with persistent infiltrate on chest x-ray and lower extremity edema. Patient is not reporting any change in cough at this time. Patient did not have significant leukocytosis at presentation. Clinical suspicion for an element of acute on chronic diastolic congestive heart failure complicating overall pulmonary condition. Can likely transition to baseline trilogy with sleep. Patient should continue trilogy at night. Anticipate diuretic therapy can be decreased back to baseline, but defer to cardiology 2. Personal history of non-small cell lung cancer/right lower lobe masslike density From review of outside medical records through the 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 There has been no evidence of cancer recurrence according to the patient's pulmonary provider at [facility] in the past. 3. 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 Patient responded well to diuretic therapy. Likely okay to transition back to his 40 mg of Lasix twice daily from my perspective. Patient also has pulmonary hypertension, likely type II, that will complicate overall condition. Patient will need a walking oximetry prior to discharge. 4. Pulmonary hypertension/hypertension/hyperlipidemia/advanced age/CODE STATUS Complicates care, management, recovery and prognosis. Physical therapy to work with patient as tolerated. Goals of care/CODE STATUS was discussed with the patient and he wishes to remain full code. Patient feels I have always improved in the past. Code Visit Inpatient E&M: 20596 Subs Hosp L2
[2019-09-10] MEDS: Enoxaparin 40 MG/0.4 ML Syringe SC (09:50)
[2019-09-10] MEDS: Losartan Potassium 25 MG Tablet PO (09:50)
[2019-09-10] MEDS: 0.9% Saline Lock 10 ML Syringe IV (09:50)
[2019-09-10] MEDS: Furosemide 100 MG/10 ML Vial 60 MG IV (09:50)
[2019-09-10] MEDS: Acetaminophen 325 MG Tablet 650 MG PO (09:58)
--- NOTE | 2019-09-10 10:44 | DCINST_ITS ---
- Discharge Diagnoses Current Active Problems: Current Active and Chronic Problems (Last Reviewed 07/31/19 @ 15:20 by CAITLIN Love) Acute and chronic respiratory failure (Chronic) COPD exacerbation (Acute) Pulmonary hypertension (Chronic) You will use the following diet at home:: Cardiac, Fluid restricted (specify 2000 mls, 1500 mls) - 1500 Your food should be the consistency of: Regular Your liquids should be the consistency of: Regular/Thin Discharge Activity: Return to Normal Activity Call your doctor if you observe: Fever of 101 or Higher, Shortness of breath, Dizziness, Fainting spells, Swelling in the ankles, Chest pain, Increased palpitations (irregular heartbeat) Allergies/Adverse Reactions: Allergies ampicillin Allergy (Verified 09/08/19 06:40) Anaphylaxis azithromycin Allergy (Verified 09/08/19 06:40) Rash codeine Allergy (Verified 09/08/19 06:40) Rash penicillin G Allergy (Verified 09/08/19 06:40) Rash Sulfa (Sulfonamide Antibiotics) Allergy (Verified 09/08/19 06:40) Rash sulfamethoxazole [From Bactrim] Allergy (Verified 09/08/19 06:40) Rash trimethoprim [From Bactrim] Allergy (Verified 09/08/19 06:40) Rash Medications to take at Discharge Acetaminophen [Tylenol Tablet] 650 mg PO Q6H PRN PRN #0 tab 10/24/16 Losartan Potassium 25 mg PO DAILY #0 06/12/17 Albuterol Aerosols [Ventolin Aerosols] 2.5 mg INHALATION Q4H PRN PRN #90 vial.neb. 07/17/19 Ipratropium/Albuterol Sulfate [Duoneb] 3 ml INHALATION Q8 08/13/19 albuterol sulfate 90 mcg/actuation aerosol inhaler 2 puff INHALATION Q4H PRN PRN #18 g 09/02/19 Umeclidinium Brm/Vilanterol Tr [Anoro Ellipta 62.5-25 Mcg INH] 1 puff INHALATION DAILY 09/08/19 Furosemide 40 mg PO BID #60 tab 09/10/19 The following prescriptions were given: Furosemide 40 mg PO BID #60 tab Transmission Status: Pending to [facility] Primary Care Physician: Misael Valencia MD [Primary Care Provider] - Please follow up with your Primary Care Physician in: 3-5 days Test Results: Test results from this visit will be discussed in further detail at your follow- up appointment, if applicable. Please Follow Up With: Misael Valencia MD Please Follow Up With: Janusz Mccartney DO When: 4 weeks Please Follow Up With: [facility] Please Follow Up With: Eliceo Garrison NP-C When: 4 weeks
--- NOTE | 2019-09-10 11:24 | CASEMGMT ---
SW spoke w/pt and about LW/POA forms. states they do not have these and are not interested in completing the forms at this time. VISHAL Contreras
--- NOTE | 2019-09-10 11:28 | CASEMGMT ---
This RN CM to room to discuss discharge planning with pt/ at this time. Pt/ state he is back on his normal home oxygen at this time and pt/ decline the need for HHC/OP therapy at this time. Pt does state some concerns with going home today as he feels he is 'not quite ready and I developed a new cough this morning.' Pt also states concerns with inability to 'move my bowels.' Teri NEELY aware of all at this time and states has has had 3 normal BM's this am. Dr. Hong also aware of cough and pt concern with going home, voices understanding and states he come see pt. Soheila NEELY CM
--- NOTE | 2019-09-10 12:32 | PHA.DC.MR ---
Pharmacy Service has performed discharge medication reconciliation for this patient. Home Medications Acetaminophen [Tylenol Tablet] 650 mg PO Q6H PRN PRN #0 tab 10/24/16 Losartan Potassium 25 mg PO DAILY #0 06/12/17 Albuterol Aerosols [Ventolin Aerosols] 2.5 mg INHALATION Q4H PRN PRN #90 vial.neb. 07/17/19 Ipratropium/Albuterol Sulfate [Duoneb] 3 ml INHALATION Q8 08/13/19 albuterol sulfate 90 mcg/actuation aerosol inhaler 2 puff INHALATION Q4H PRN PRN #18 g 09/02/19 Umeclidinium Brm/Vilanterol Tr [Anoro Ellipta 62.5-25 Mcg INH] 1 puff INHALATION DAILY 09/08/19 Furosemide 40 mg PO BID #60 tab 09/10/19 The patient's discharge medication list was reviewed for discrepancies and discrepancies were resolved.
--- NOTE | 2019-09-10 18:18 | PCM.PN.CARD ---
Subjectve: The patient is awake and alert. He states overall he is breathing better. He notes his edema is better. He has been up and ambulating with OT/PT. Objective: Vital Signs Temp Pulse Resp BP Pulse Ox 98.1 F 84 18 108/45 L 100 09/10/19 14:10 09/10/19 16:00 09/10/19 14:10 09/10/19 14:10 09/10/19 14:10 Oxygen Flow Rate (L/min) 5 Oxygen Delivery Method Nasal Cannula Weight: 132 lb 0.91 oz Body Mass Index (BMI) 22.7 Intake and Output for Last 24 Hours 09/08/19 09/09/19 09/10/19 23:59 23:59 23:59 Intake Total 110 / 110 370 / 370 810 / 810 Output Total 1285 / 1285 2675 / 2675 450 / 450 Balance -1175 / -1175 -2305 / -2305 360 / 360 General: Awake, Alert, Oriented x 3, Cooperative, No Acute Distress HEENT: Atraumatic, Normocephalic, PERRL, EOMI, Sclera Non Icteric Oral: Moist Mucosa Neck: Supple, Good ROM, No JVD Lungs: - - No obvious rales or rhonchi Cardiovascular: Regular Rhythm, Normal S1, Normal S2 Murmur Murmur: Grade 3/6, High Pitched, Mid Systolic, LLSB, LVOT, Sternal Notch Abdomen: Bowel Sounds Present, Soft, Non Tender Extremities: Mild RLE Edema, Mild LLE Edema Psych/Mental Status: Appropriate 09/10/19 06:15: WBC 5.9, RBC 3.30 L, Hgb 9.3 L, Hct 31.0 L, MCV 93.9, MCH 28.2, MCHC 30.0 L, Plt Count 227, MPV 9.1, Immature Gran % (Auto) 0.200, Neut % (Auto) 62.2, Lymph % (Auto) 20.1, [place] % (Auto) 14.5 H, Eos % (Auto) 2.7, Baso % (Auto) 0.3, Absolute Neuts (auto) 3.7, Nucleated RBC % 0 09/10/19 06:15: Sodium 136, Potassium 3.6, Chloride 93 L, Carbon Dioxide 42.0 H, Anion Gap 1 L, BUN 17, Creatinine 0.72, Est GFR (MDRD) Af Amer 135, Est GFR (MDRD) Non-Af 112, BUN/Creatinine Ratio 23.7 H, Glucose 91, Calcium 8.9 Rhythm: Electronic ventricular paced rhythm Medical Necessity - Tobacco Use Smoking Status: Unknown if ever smoked Assessment/Plan 1. Aortic valve stenosis The patient has undergone follow-up evaluation with a transthoracic echocardiogram. Based upon the echocardiographic report, based upon the aortic valve mean gradient, his aortic valve stenosis appears to be moderate at this time. At the present time the patient will continue to be followed by history, exam, and echocardiogram as deemed appropriate. 2. Paroxysmal atrial dysrhythmia-fibrillation/flutter The patient continues at this time in an underlying electronic ventricular paced rhythm. In the past, based upon his easy bruising/bleeding issues, he has not wanted to proceed with anticoagulant therapy. He was on aspirin therapy. However he states that his spouse stopped giving this to him because of his concern of easy bruising/bleeding. He should consider resuming his aspirin therapy at 81 mg a day barring unforeseen concerns. 3. 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 It has been interrogated in the past. It has been functioning appropriately. 4. Decreased diastolic compliance He has had a history of decreased diastolic compliance per his past medical records. At the moment he will need to continue to be followed. He will need continued medical therapy. Based upon concerns of volume status this does include diuretic therapy. The present time he will continue his furosemide at 40 mg twice daily. This may need to be adjusted over time depending upon his clinical course. 5. Essential hypertension As part of his medication adjustment, based upon volume retention concerns, his amlodipine was discontinued. Thus he may need, depending upon his blood pressure response, further adjustment of antihypertensive therapy with respect to his diuretics, and other medications, taking into consideration his aortic valve disorder, etc. 6. COPD with acute on chronic respiratory failure He will continue evaluation care per internal medicine and pulmonology/critical care medicine. This includes evaluation of his COPD status and his former status of underlying lung carcinoma. Comment: Patient's case has been discussed and reviewed with the patient and Dr. Hong. This note was generated using a voice recognition system and there may be incorrect words, spelling or punctuation that were not noted when reviewing the office note prior to saving.
--- NOTE | 2019-09-11 15:57 | PCM.DC.SUM ---
Discharge Date and Diagnosis Date of Admission: 09/08/19 Date of Discharge: 09/10/19 - Secondary Discharge Diagnosis Chronic Problems (Last Reviewed 07/31/19 @ 15:20 by CAITLIN Love) Acute and chronic respiratory failure (Chronic) Stage 3 severe COPD by GOLD classification (Chronic) FEV1 44% of predicted on PFT 12/15/2016 at [facility] Diastolic dysfunction (Chronic) 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) Essential hypertension (Chronic) Paroxysmal atrial flutter (Chronic) Non-rheumatic tricuspid valve insufficiency (Chronic) Aortic valve stenosis, nonrheumatic (Chronic) 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 No significant change. Right basilar small effusion with right lower lobe chronic appearing infiltrate or possibly mass. 2. Background chronic lung disease with emphysema and interstitial scarring. Echo: Interpretation Summary Normal LV size. Left ventricular systolic function is normal. The estimated ejection fraction is 55 %. Stage 1 diastolic dysfunction. Moderate pulmonary hypertension. Mean aortic valve gradient 23 mmHg. Compared to the previous the AV sthe same with the mean gradient unchanged. The pulmonary pressures are better. Consults: Pulmonology Cardiology Operations: None Procedures: 2-D Echocardiogram Summary of Care Provided: Per HPI: The patient is a 83 year old M with a PMH as below who presents to the hospital with shortness of breath. He says it is been going on for several days and is noticed that for the last several days he has been having swelling in his legs, arms and abdomen. He thinks that maybe the swelling in his abdomen was pushing this point preventing him from taking a deep breath. He is on chronic oxygen and was recently discharged on BiPAP which she states he has been very compliant with because has not been able to tolerate this at night. He denies any fevers or chills, and no productive cough. In the ER chest x-ray demonstrated right basilar effusion however no signs of a clear pneumonia. He was found to have a respiratory acidosis with a pH of 7.2 and a PCO2 of 107.6. He was placed on BiPAP in the ER and transferred to the ICU. Hospital Course: 1. Acute on chronic hypoxic respiratory failure with hypercapnic respiratory failure and respiratory acidosis secondary to severe pulmonary hypertension and acute on chronic diastolic [id number] male presented to the hospital with increasing shortness of breath. He says it is been going on for several days and that he had been noticing increased swelling in his legs arms and his abdomen. He was admitted to the ICU on BiPAP and aggressively diuresed. He improved with diuresis alone, he had another echo here in the hospital which did not show any significant changes from his prior. By the day of discharge he had diuresed approximately 8 pounds of fluid and as he was back on his home oxygen requirement as well as his new agreement to continue using his trilogy at night which she had been using here in the hospital, he was discharged home. His Lasix were increased from 40 mg p.o. daily to 40 mg p.o. twice daily. He will need to follow-up with his cardiology as well as pulmonology as an outpatient. I also recommend he follow-up with his primary care doctor in 3 to 5 days. Also his Norvasc was discontinued and he was just continued on his losartan. He may need to have that increased for better blood pressure control as an outpatient. The plan for discharge was extensively discussed with both him and his and they both expressed understanding and agreement to the plan including the risks and benefits of discharge. 2. His other medical diagnoses were evaluated and his home medications were continued where appropriate - Physical Exam Vitals/I&O's: Vital Signs Temp Pulse Resp BP Pulse Ox 98.1 F 84 18 108/45 L 100 09/10/19 14:10 09/10/19 16:00 09/10/19 14:10 09/10/19 14:10 09/10/19 14:10 Oxygen Flow Rate (L/min) 5 Oxygen Delivery Method Nasal Cannula Weight: 132 lb 0.91 oz Body Mass Index (BMI) 22.7 Intake and Output for Last 24 Hours 09/09/19 09/10/19 09/11/19 23:59 23:59 23:59 Intake Total 370 / 370 810 / 810 Output Total 2675 / 2675 450 / 450 Balance -2305 / -2305 360 / 360 General: Alert, Oriented x3, Cooperative, No apparent distress HEENT: Atraumatic, PERRLA, EOMI, Normocephalic Oral: Moist Mucosa Neck: Supple, No JVD Lungs: Normal air movement, No rhonchi, Diminished, Wheezes Cardiovascular: Regular rate, Regular Rhythm, Normal S1, Normal S2, Murmur - 2 out of 6 CLYDE Abdomen: Soft, Non Tender, Non-Distended, No Hepato-splenomegaly Extremities: Capillary Refill Less than 3 Seconds, Edema - 1+ pitting edema bilateral lower extremities Skin: No rashes, No breakdown, - - Chronic venous stasis changes Neurological: Neuro grossly intact, Sensory exam intact to light touch and pain Psych/Mental Status: Normal Affect, Appropriate Microbiology Past 72 Hours 09/08/19 06:50 Blood Culture (Wb) - Anticubital Left Blood Culture - Preliminary No growth in 48 hours. 09/08/19 06:40 Blood Culture (Wb) - Anticubital Right Blood Culture - Preliminary No growth in 48 hours. Discharge Activity: Return to Normal Activity Call your doctor if you observe: Fever of 101 or Higher, Shortness of breath, Dizziness, Fainting spells, Swelling in the ankles, Chest pain, Increased palpitations (irregular heartbeat) Home Medications: Medications to take at Discharge Acetaminophen [Tylenol Tablet] 650 mg PO Q6H PRN PRN #0 tab 10/24/16 Losartan Potassium 25 mg PO DAILY #0 06/12/17 Albuterol Aerosols [Ventolin Aerosols] 2.5 mg INHALATION Q4H PRN PRN #90 vial.neb. 07/17/19 Ipratropium/Albuterol Sulfate [Duoneb] 3 ml INHALATION Q8 08/13/19 albuterol sulfate 90 mcg/actuation aerosol inhaler 2 puff INHALATION Q4H PRN PRN #18 g 09/02/19 Umeclidinium Brm/Vilanterol Tr [Anoro Ellipta 62.5-25 Mcg INH] 1 puff INHALATION DAILY 09/08/19 Furosemide 40 mg PO BID #60 tab 09/10/19 Following Prescrptions Were Given to Patient: Furosemide 40 mg PO BID #60 tab Transmission Status: Received by [facility] Primary Care Physician: Misael Valencia MD [Primary Care Provider] - Please follow up with your Primary Care Physician in: 3-5 days Please Follow Up With: Misael Valencia MD Please Follow Up With: Janusz Mccartney DO When: 4 weeks Please Follow Up With: [facility] Please Follow Up With: Eliceo Garrison LUMBER TRIMMER-C When: 4 weeks Disposition: Home Minutes spent on discharge:: 35 Patient Condition:: Stable Medical Necessity - Tobacco Use Smoking Status: Unknown if ever smoked Meaningful Use Info Meaningful Use Diagnoses (Choose all that apply): CHF - CHF SNEHA/ARB ordered at discharge?: Yes Documented LVEF (%): 55 Code Visit Inpatient E&M: 62336 Disch Hosp
--- NOTE | 2019-09-11 17:05 | CASEMGMT ---
FLORINDA GABRIEL Discharge Follow-up Phone Call: ERICKA: Brittany Strata: 4 Call Date: 09/11/2019 Discharge Date: 09/10/2019 Time of Call: 1700 Duration: 5 minutes Admitting Diagnosis: A/C diastolic CHF Discharge follow-up call placed to pt. Pt states he has been doing well since discharge. Pt states his breathing has been good and he has been able to ambulate around the house and complete his exercises. States his exercises include walking, leg exercises, push-ups off the counter, and arm exercises. Pt states he has been wearing his O2 at 4l/min and increases it to 5l/min when doing his exercises. Pt states he used his trilogy last night without any issues. Pt states he does weigh himself daily and today's weight was 132.6, BP was 109/53. Pt states he is taking his lasix twice daily as prescribed. Pt is aware of his follow-up appointments. Pt denies any questions or concerns at this time. This FLORINDA GABRIEL's phone number provided to pt if he were to think of any questions.
--- NOTE | 2019-09-17 11:43 | CASEMGMT ---
Call from Nichole at [facility] requesting a discharge summary for pt at this time. D/C summary faxed at this time. Soheila NEELY CM
== END 2019-09-10 18:50 | disposition home or self-care (01) | DRG 291 ==
LOC: ED 07:27 → ICU 08:02 → PCU 09-09 17:51
PROVIDERS: Internal Medicine Critical Care Medicine; Admitting Provider Family Medicine; Emergency Provider Emergency Medicine; PCP Internal Medicine; Visit Provider Family Medicine
DX: I11.0 Hypertensive heart disease with heart failure (principal); J96.21 Acute and chronic respiratory failure with hypoxia; J96.92 Respiratory failure, unspecified with hypercapnia; I50.33 Acute on chronic diastolic (congestive) heart failure; I27.20 Pulmonary hypertension, unspecified; I44.1 Atrioventricular block, second degree; I35.0 Nonrheumatic aortic (valve) stenosis; E78.5 Hyperlipidemia, unspecified; J44.9 Chronic obstructive pulmonary disease, unspecified; I36.1 Nonrheumatic tricuspid (valve) insufficiency; K21.9 Gastro-esophageal reflux disease without esophagitis; Z95.0 Presence of cardiac pacemaker; Z85.118 Personal history of other malignant neoplasm of bronchus and lung; Z99.81 Dependence on supplemental oxygen; Z92.3 Personal history of irradiation
CPT/HCPCS: 36415; 36600; 71045; 80048; 80053; 82803; 83605; 83690; 83735; 83880; 84100; 84484; 85025; 85610; 85730; 87040; 92526; 92610; 93005; 93306; 94002; 94640; 97162; 97166; 97530; 97535; 97802; 97803; 99251; 99285; J7030; A4216; G0463; J1940

== ENCOUNTER → 2019-10-15 13:15 | Outpatient (CLI) | payer MEDICARE, OTHER, SELFPAY ==
[2019-10-10 11:46] VITALS: BMI 21.4
--- NOTE | 2019-10-15 13:16 | RAD_ITS ---
STUDY: X-RAY - ABDOMEN/PELVIS REASON FOR EXAM: Male, 83 years old. Constipation x 4 days, right side pain x 3 days TECHNIQUE: 2 views of the abdomen COMPARISON: 25 June 2016 FINDINGS: There is no intestinal obstruction. There are no suspicious calcifications projecting over the abdomen. There is osteopenia. Hips are located. There are degenerative changes in the spine. Pacemaker leads are present in the right atrium and right ventricle. RAD/Abdomen Single View IMPRESSION: No intestinal obstruction. Electronically Signed: Amelie Orozco, at 19:55 EDT Tel , Service support ,
== END ==
PROVIDERS: PCP Internal Medicine; Referring Provider Nurse Practitioner Family; Visit Provider Nurse Practitioner Family
DX: K59.00 Constipation, unspecified (principal)
CPT/HCPCS: 74018

== ENCOUNTER → 2019-10-20 12:49 | Outpatient (CLI) | payer MEDICARE, OTHER, SELFPAY ==
[2019-10-20 11:58] VITALS: BMI 20.8
[2019-10-20 14:18] LABS: Anion Gap 4 (5-15); BUN 13 mg/dL (7-18); BUN/Creat Ratio 23.1 RATIO (10-20); Calcium,Total 9.1 mg/dL (8.5-10.1); Chloride 89 mmol/L (98-107); Creatinine, Serum 0.56 mg/dL (0.70-1.30); EST Glomerular Filtration Rate 148 mL/min (>60); Est Glom Filt Rate - Afr Amer 179 mL/min (>60); Glucose 150 mg/dL (74-106); Potassium 3.6 mmol/L (3.5-5.1); Sodium Level 132 mmol/L (136-145)
== END ==
PROVIDERS: PCP Internal Medicine; Referring Provider Physician Assistant Medical; Visit Provider Physician Assistant Medical
DX: I50.33 Acute on chronic diastolic (congestive) heart failure (principal)
CPT/HCPCS: 36415; 80048

== ENCOUNTER 2019-10-22 05:31 | Inpatient (IN) | payer MEDICARE, OTHER, SELFPAY ==
[2019-10-20 13:39] VITALS: BMI 21.4
[2019-10-22] VITALS (36 sets, daily range): BP systolic 90–131; BP diastolic 47–75; PULSE 70–121; RESP 12–40; TEMP 36.4–36.9; O2SAT 92–100; BMI 23.0; BMI 20.7; BMI 20.8
--- NOTE | 2019-10-22 05:36 | EKG12_ITS ---
Test Reason : SOB Blood Pressure : / mmHG Vent. Rate : 119 BPM Atrial Rate : 119 BPM P-R Int : 100 ms QRS Dur : 154 ms QT Int : 386 ms P-R-T Axes : 066 -88 076 degrees QTc Int : 542 ms Atrial-sensed ventricular-paced rhythm Abnormal ECG Confirmed by RICK SOTO, [place] ([id number]), news videotape editor ADDIS VALENCIA ([id number]) on 10/27/2019 11:22:42 AM Referred By: ADI Confirmed By:CAMILO CABRERA MD
--- NOTE | 2019-10-22 05:36 | RAD_ITS ---
HISTORY: C/O SOB EXAMINATION/TECHNIQUE: XR Chest 1 View: Portable COMPARISON: 09/08/2019 FINDINGS: Cardiac telemetry leads in place. No significant change. Bilateral lower lobe infiltrates, larger on the right. Small right pleural effusion. Upper lobe emphysema. Biapical scarring, worse on the right. No pneumothorax. Atherosclerotic thoracic aorta. Less subclavian dual-chamber transvenous pacemaker with electrode tips in the region of the right atrium and right ventricle. RAD/Chest 1 View (Portable) IMPRESSION: 1. No significant change. Bilateral lower lobe chronic appearing infiltrates, larger on the right. Small right pleural effusion. 2. Background chronic emphysema. at 0638 Reported and signed by: Shailesh Olivares MD Electronically Signed: Shailesh Olivares, at 6:37 EDT Tel , Service support ,
--- NOTE | 2019-10-22 05:40 | ED.DCSUM_ITS ---
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 Stated a few hours ago he started to get wheezing and shortness of breath. He does have a BiPAP by EMS stated he was not wearing it when they arrived. They placed him on CPAP. He was in the 70s pulse ox when they arrived on 5 L nasal cannula. He was wheezing. They gave a DuoNeb breathing treatment and albuterol and were able to turn him around. Currently he is feeling much better. He continues to have some shortness of breath and wheezing. Has had multiple admissions for COPD exacerbations. Last admission was a month ago. Denies any fevers or chills. Stated he was doing well before this evening when he woke up. Denies any chest pain. Current severity is moderate to severe. Denies any flulike symptoms. - Past Medical History (1) Anxiety Status: Acute (2) COPD exacerbation Status: Acute (3) Mobitz type 1 second degree AV block Status: Acute (4) Acute and chronic respiratory failure Status: Chronic (5) Aortic valve stenosis, nonrheumatic Status: Chronic (6) Bullous emphysema Status: Chronic (7) COPD (chronic obstructive pulmonary disease) Status: Chronic (8) Chronic respiratory failure Status: Chronic (9) Colon polyps Status: Chronic (10) Conduction disorder of the heart Status: Chronic (11) Diastolic dysfunction Status: Chronic (12) Essential hypertension Status: Chronic (13) GERD (gastroesophageal reflux disease) Status: Chronic (14) Mobitz type 2 second degree AV block Status: Chronic (15) Non-rheumatic tricuspid valve insufficiency Status: Chronic (16) Paroxysmal atrial flutter Status: Chronic (17) Presence of cardiac pacemaker Status: Chronic (18) Pulmonary hypertension Status: Chronic (19) Right lower lobe lung mass Status: Chronic (20) Stage 3 severe COPD by GOLD classification Status: Chronic Comment: FEV1 44% of predicted on PFT 12/15/2016 at [facility] (21) History of appendectomy Status: Resolved (22) History of permanent cardiac pacemaker placement Status: Resolved Comment: 06/11/17 (23) Hx of cataract surgery Status: Resolved Past Medical History - Allergies and Home Meds Allergies/Adverse Reactions: Allergies ampicillin Allergy (Verified 10/22/19 05:39) Anaphylaxis azithromycin Allergy (Verified 10/22/19 05:39) Rash codeine Allergy (Verified 10/22/19 05:39) Rash penicillin G Allergy (Verified 10/22/19 05:39) Rash Sulfa (Sulfonamide Antibiotics) Allergy (Verified 10/22/19 05:39) Rash sulfamethoxazole [From Bactrim] Allergy (Verified 10/22/19 05:39) Rash trimethoprim [From Bactrim] Allergy (Verified 10/22/19 05:39) Rash Prior records reviewed: Yes Past Medical History: - - See problem list Surgical History: appendectomy, cataract, pacemaker implantation Lives: With Family Smoking Status: Former smoker Alcohol: None Drugs: None - Family History Paternal Family History: Family History (Last Reviewed 10/20/19 @ 13:39 by Nya Reveles) Brother Diabetes Sister Diabetes Lung cancer Family History: Reports: Heart Disease - Father with history of heart disease, at age 96. Offspring Family History: Family History (Last Reviewed 10/20/19 @ 13:39 by Nya Reveles) Brother Diabetes Sister Diabetes Lung cancer Family History: Reports: COPD Sibling Family History: Family History (Last Reviewed 10/20/19 @ 13:39 by Nya Reveles) Brother Diabetes Sister Diabetes Lung cancer Family History: Reports: COPD, Diabetes, Heart Disease Maternal Family History: Family History (Last Reviewed 10/20/19 @ 13:39 by Nya Reveles) Brother Diabetes Sister Diabetes Lung cancer Family History: Reports: Heart Disease, - - osteoporosis Review of Systems General: Denies: Chills, Fever, Sweats Eyes: Denies: Visual changes - bilaterally, Diplopia ENT: Denies: Rhinorrhea, Sore throat Cardiovascular: Denies: Chest pain, Palpitations Respiratory: Reports: Dyspnea. Denies: Cough, Dyspnea on exertion Gastrointestinal: Denies: Abdominal pain, Nausea, Vomiting, Diarrhea, Melena, Hematochezia Genitourinary: Denies: Dysuria, Hematuria, Frequency Musculoskeletal: Denies: Back pain, Extremity Pain Skin: Denies: Rash, Wounds Neurological: Denies: Headache, Weakness, Numbness Physical Exam Vital Signs/Narrative: Vital Signs Temp Pulse Resp BP Pulse Ox 10/22/19 05:32 97.7 F L 116 H 28 H 131/75 H 96 General: Well nourished, Well developed, No Acute Distress Head: Normocephalic, Atraumatic Eyes: Perrl, EOMI ENT: Moist mucous membranes, No rhinorrhea Neck: Supple, Nontender Cardiovascular: Regular rate, No murmurs, Tachycardia. Negative for: Regular rhythm Respiratory: Chest nontender, Wheezing, Diminished, Decreased Air Movement, Retractions - Mild intercostal. Negative for: No distress, CTA bilaterally Abdomen: Soft, Nontender, Nondistended, Normal bowel sounds Back: Nontender, Normal Inspection Extremities: Nontender, No edema Skin: Normal color, No rash Neurological: Alert, Oriented x3, Cranial nerves II-XII grossly intact, Normal Strength, Normal Sensation Psychological: Normal affect, Normal Mood Diagnostic/Tx/Re-eval - Medical Decision Making EKG obtained shows a paced rhythm at a rate of 119. Unchanged from prior EKG on September 08. Patient placed on BiPAP. Resting comfortably able to speak in short sentences. Given albuterol breathing treatments. Lab work and chest x- ray obtained. Given Solu-Medrol IV. Patient felt significantly better after treatments and BiPAP. Resting more comfortably throughout his stay. Lab work shows a leukocytosis of 18,000. Appears when the patient comes in with acute respiratory failure he oftentimes gets a leukocytosis response. Have a low suspicion for acute pneumonia. Chest x-ray shows chronic appearing infiltrates in the lower lobes right greater than left. These do not appear changed from previous. He has not had a new cough or fevers. Troponin was 0.1. This is mildly elevated. He has had this elevated in the past due to respiratory failure. I do not think he is having acute coronary syndrome. I will hold off given Tylenol due to the fact that the patient has BiPAP on and needs this. Has a chronic mild low sodium. No evidence of renal failure. Patient will be discussed with the hospitalist and will be admitted for COPD exacerbation. - Critical Care Time Critical care time (excluding procedures): 30-74 minutes ED Disposition - Plan for ED Patient: Disposition: Acute Care Hospital [facility] Diagnosis: COPD with exacerbation, Hypoxia, Respiratory failure
[2019-10-22] MEDS: Albuterol 2.5 MG/3 ML VIAL.NEB. INHALATION ×3 (05:45→06:12)
[2019-10-22 05:47] LABS: Absolute Lymphocyte Count 0.83 X10^3/uL (0.83-4.51); Absolute Neutrophil Count 15.8 X10^3/uL (2.0-7.7); Basophil# 0.08 X10^3/uL; Basophil% 0.4 % (0-1); Eosinophil# 0.04 X10^3/uL; Eosinophils% 0.2 % (0-5); Hematocrit 36.5 % (40-54); Lymphocyte # 0.83 X10^3/ul (4.0); Lymphocyte % 4.4 % (19-41); Mean Corp Hgb Conc 30.1 g/dL (32-36); Mean Corpuscular Volume 89.7 fL (80-94); Mean Platelet Vol. 9.4 fl (6.2-12.0); Monocyte# 1.85 X10^3/uL; Monocyte% 9.9 % (0-10); NRBC Flagged by Analyzer 0 % (0-5); Neutrophil # 15.81 X10^3/uL (2.7-7.7); Neutrophil % 84.4 % (47-70); POSITIVE DIFFERENTIAL YES; Platelet Count 306 K/mm3 (150-450); RBC Distribution Width CV 13.4 % (11.6-14.6); RBC Distribution Width SD 44.3 fl (35.1-43.9); Red Blood Count 4.07 M/mm3 (4.6-6.2); White Blood Count 18.8 K/mm3 (4.4-11.0)
[2019-10-22 05:49] LABS: Differential Indicated SCAN CRITERIA MET
[2019-10-22] MEDS: MethylPREDNISolone 125 MG/2 ML Vial IV (05:49)
[2019-10-22 06:05] LABS: Anion Gap 4 (5-15); BUN 16 mg/dL (7-18); BUN/Creat Ratio 20.8 RATIO (10-20); Chloride 89 mmol/L (98-107); Creatinine, Serum 0.77 mg/dL (0.70-1.30); EST Glomerular Filtration Rate 102 mL/min (>60); Est Glom Filt Rate - Afr Amer 124 mL/min (>60); Estimated Creatinine Clearance 54.15 ml/min; Glucose 210 mg/dL (74-106); Potassium 4.4 mmol/L (3.5-5.1); Sodium Level 128 mmol/L (136-145)
[2019-10-22 06:10] LABS: Anisocytosis RARE; Platelet Estimate ADEQUATE (ADEQ); Red Cell Morphology N CHROM NORMAL (NORM C&C)
--- NOTE | 2019-10-22 07:19 | PCM.HP.STD ---
History of Present Illness Date of Admission: 10/22/19 Chief Complaint: Shortness of breath - 1 day The patient is a 84 year old M with multiple comorbidities including severe COPD on 4 L of oxygen, pulmonary hypertension, moderate aortic valve stenosis who comes in with shortness of breath that started this preston. Patient has had progressive shortness of breath ongoing for the past couple of weeks. He has been following closely with cardiology and had his Lasix increased as well as start of metolazone. He woke up this morning feeling very short of breath, his increase his oxygen but he still felt his heart racing and decided to come to the hospital. Denied any chest pain or dizziness. He feels fatigued. Vitals in the ED, his temperature was 90 7.7F, heart rate of 116, blood pressure was 131/75, respiratory rate was 28, he was saturating 96% on BiPAP with 50% FiO2. WBC count is 18.8, hemoglobin is 11.0, Plt 306, Na 128, K 4.4, Cl 89, HCO3 35, BUN 35, Cr 0.77. Admitting chest x-ray showed bilateral lower lobe chronic infiltrates, larger on the right. Past Medical History Past Medical History (Chronic Problems): Chronic Problems (Last Reviewed 10/20/19 @ 13:39 by Nya Reveles) COPD with exacerbation (Chronic) Colon polyps (Chronic) Acute and chronic respiratory failure (Chronic) Stage 3 severe COPD by GOLD classification (Chronic) FEV1 44% of predicted on PFT 12/15/2016 at [facility] Diastolic dysfunction (Chronic) 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) Essential hypertension (Chronic) Paroxysmal atrial flutter (Chronic) Non-rheumatic tricuspid valve insufficiency (Chronic) Aortic valve stenosis, nonrheumatic (Chronic) 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) Chronic respiratory failure (Chronic) COPD (chronic obstructive pulmonary disease) (Chronic) Conduction disorder of the heart (Chronic) Pulmonary hypertension (Chronic) GERD (gastroesophageal reflux disease) (Chronic) Bullous emphysema (Chronic) Medical History: Medical History (Last Reviewed 10/20/19 @ 13:39 by Nya Reveles) Colon polyps (Chronic) Mobitz type 1 second degree AV block (Acute) I44.1 Anxiety (Acute) F41.9 Paroxysmal atrial flutter (Chronic) I48.92 Aortic valve stenosis, nonrheumatic (Chronic) I35.0 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) I44.1 Chronic respiratory failure (Chronic) J96.10 COPD (chronic obstructive pulmonary disease) (Chronic) J44.9 Conduction disorder of the heart (Chronic) I45.9 Pulmonary hypertension (Chronic) I27.20 GERD (gastroesophageal reflux disease) (Chronic) K21.9 Bullous emphysema (Chronic) J43.9 Lung cancer (Inactive) C34.90 Allergies ampicillin Allergy (Verified 10/22/19 05:39) Anaphylaxis azithromycin Allergy (Verified 10/22/19 05:39) Rash codeine Allergy (Verified 10/22/19 05:39) Rash penicillin G Allergy (Verified 10/22/19 05:39) Rash Sulfa (Sulfonamide Antibiotics) Allergy (Verified 10/22/19 05:39) Rash sulfamethoxazole [From Bactrim] Allergy (Verified 10/22/19 05:39) Rash trimethoprim [From Bactrim] Allergy (Verified 10/22/19 05:39) Rash Home Medications: Ambulatory Orders Medication Instructions Recorded Acetaminophen [Tylenol Tablet] 650 mg PO Q6H PRN PRN #0 tab 10/24/16 Losartan Potassium 25 mg PO DAILY #0 06/12/17 Albuterol Aerosols [Ventolin 2.5 mg INHALATION Q4H PRN PRN #90 07/17/19 Aerosols] vial.neb. Ipratropium/Albuterol Sulfate 3 ml INHALATION Q8 08/13/19 [Duoneb] albuterol sulfate 90 mcg/actuation 2 puff INHALATION Q4H PRN PRN #18 g 09/02/19 aerosol inhaler potassium chloride 10 mEq 10 meq PO DAILY #30 cap 10/10/19 capsule,extended release fluticasone fur. 100 mcg-umeclid 1 inh INHALATION DAILY #1 ea 10/13/19 62.5 mcg-vilant 25 mcg inhalat.powder furosemide 40 mg tablet 40 mg PO DAILY #30 tab 10/14/19 metolazone 2.5 mg tablet 2.5 mg PO QWEEK tab 10/20/19 Surgical History: Surgical History (Last Reviewed 10/20/19 @ 13:39 by Nya Reveles) History of appendectomy (Resolved) Z98.890, Z90.49 Hx of cataract surgery (Resolved) Z98.49 History of permanent cardiac pacemaker placement (Resolved) Z95.0 06/11/17 Surgical History: appendectomy, cataract, pacemaker implantation Psychiatric History: Anxiety, Depression Lives: With Family Smoking Status: Former smoker Alcohol: None Drugs: None - *Family History Paternal Family History: Family History (Last Reviewed 10/20/19 @ 13:39 by Nya Reveles) Brother Diabetes Sister Diabetes Lung cancer History Items: Heart Disease - Father with history of heart disease, at age 96. Offspring Family History: Family History (Last Reviewed 10/20/19 @ 13:39 by Nya Reveles) Brother Diabetes Sister Diabetes Lung cancer History Items: COPD Sibling Family History: Family History (Last Reviewed 10/20/19 @ 13:39 by Nya Reveles) Brother Diabetes Sister Diabetes Lung cancer History Items: COPD, Diabetes, Heart Disease Maternal Family History: Family History (Last Reviewed 10/20/19 @ 13:39 by Nya Reveles) Brother Diabetes Sister Diabetes Lung cancer History Items: Heart Disease, - - osteoporosis Review of Systems Constitutional: Reports: Malaise, Weakness. Denies: Anorexia, Chills, Fever, Night Sweats, Weight Change Eyes: Denies: Blurred vision, Cataracts HEENT: Denies: Head Aches, Hearing Changes, Sinus Congestion, Sinus Drainage Cardiovascular: Denies: Chest Pain, Orthopnea, Palpitations Respiratory: Reports: Cough, Shortness of Breath, Shortness of breath at rest, Shortness of breath upon exertion, Wheezing. Denies: Hemoptysis, Sputum production Gastrointestinal: Denies: Abdominal Pain, Hematemesis, Hematochezia, Nausea, Vomiting Genitourinary: Denies: Dysuria, Incontinence Musculoskeletal: Denies: Joint Pain, Joint stiffness, Joint swelling, Joint Tenderness Skin: Denies: Rash, Wounds Neurological: Denies: Numbness, Tingling, Focal weakness Psychiatric: Denies: Anxiety, Depression, Homicidal Ideations, Suicidal Ideations Hematologic/ Lymphatic: Denies: Easy Bruising, Easy Bleeding VTE Information - Inpt Only VTE Present on Admission: No VTE Pharm Prophylaxis ordered?: Yes Patient Problems: Active and Suspected Problems (Last Reviewed 10/20/19 @ 13:39 by Nya Alanis Hypoxia (Acute) Respiratory failure (Acute) - Physical Exam Vitals/I&O's: Vital Signs Temp Pulse Resp BP Pulse Ox 97.7 F L 105 H 24 H 103/69 96 10/22/19 05:50 10/22/19 07:16 10/22/19 07:16 10/22/19 07:16 10/22/19 07:16 Oxygen Delivery Method Bi-pap Weight: 68.7 kg Body Mass Index (BMI) 23.0 General: Alert, Oriented x3, Cooperative, No apparent distress HEENT: Atraumatic, PERRLA, EOMI, Normocephalic Neck: Supple, No JVD, Negative Carotid Bruits Lungs: Clear to auscultation, Normal air movement Cardiovascular: Regular rate, Regular Rhythm, Normal S1, Normal S2, No murmurs Abdomen: Bowel Sounds Present, Soft, Non Tender, Non-Distended, No Hepato-splenomegaly Extremities: Edema - bilateral pedal edema +1 Skin: No rashes Musculoskeletal: No Tenderness to Palpation of Joints or Extremities Neurological: Cranial nerves II-XII grossly intact, Neuro grossly intact Psych/Mental Status: Normal Affect, Appropriate Laboratory Results 10/22/19 05:27: WBC 18.8 H, RBC 4.07 L, Hgb 11.0 L, Hct 36.5 L, MCV 89.7, MCH 27.0, MCHC 30.1 L, RDW Std Deviation 44.3 H, RDW Coeff of Earline 13.4, Plt Count 306, MPV 9.4, Immature Gran % (Auto) 0.700, Neut % (Auto) 84.4 H, Lymph % (Auto) 4.4 L, Hawkins % (Auto) 9.9, Eos % (Auto) 0.2, Baso % (Auto) 0.4, Absolute Neuts (auto) 15.8 H, Absolute Lymphs (auto) 0.83, Nucleated RBC % 0, Differential Comment SEE COMMENT, Diff Path Review May araceli, Platelet Estimate ADEQUATE, RBC Morphology N CHROM, Anisocytosis RARE 10/22/19 05:27: Sodium 128 L, Potassium 4.4, Chloride 89 L, Carbon Dioxide 35.0 H, Anion Gap 4 L, BUN 16, Creatinine 0.77, Estim Creat Clear Calc 54.15, Est GFR (MDRD) Af Amer 124, Est GFR (MDRD) Non-Af 102, BUN/Creatinine Ratio 20.8 H, Glucose 210 H, Calcium 9.0, Troponin I 0.139 H Assessment/Plan All Active Problems (Last Reviewed 10/20/19 @ 13:39 by Nya Reveles) Hypoxia (Acute) Respiratory failure (Acute) Mobitz type 1 second degree AV block (Acute) Anxiety (Acute) History of appendectomy (Resolved) Hx of cataract surgery (Resolved) COPD exacerbation (Acute) History of permanent cardiac pacemaker placement (Resolved) 84 year old M with multiple comorbidities including severe COPD on 4 L of oxygen, pulmonary hypertension, moderate aortic valve stenosis who comes in with shortness of breath that started this preston. 1. Acute respiratory failure going to acute on chronic diastolic CHF, patient is on BiPAP Will continue to wean off for SPO2 more than 94%, encourage use of incentive spirometer 2. Acute on chronic diastolic CHF, EF 55%, stage I diastolic dysfunction/severe pulmonary hypertension/moderate aortic valve stenosis Patient had issues with weight gain over the last couple of weeks, changes made to his diuretic in the outpatient We will continue on IV Lasix, strict I's and O's, CHF protocol 3. History of non-small cell lung CA, COPD, scattered wheezes heard on exam Bandmill Operator consulted, we will continue on scheduled breathing treatments, BiPAP 4. Status post pacemaker for Mobitz type II 5. Hypertension, controlled, controlled losartan 6. Hyponatremia, likely hypervolemic, will trend BMP in a.m. 7. Anxiety/depression 8. DVT prophylaxis -heparin subcu Inpatient E&M: [id number] Init Hosp L3
--- NOTE | 2019-10-22 07:19 | NURSING ---
ICU PAINTSIL RESPIRATORY FAILURE, COPD EXAC
--- NOTE | 2019-10-22 07:29 | NURSING ---
ICU 3
[2019-10-22 09:15] LABS: Pathologist Review Reviewed
--- NOTE | 2019-10-22 09:40 | CASEMGMT ---
RN CM INDUSTRIAL ILLUMINATING ENGINEER HARVEY met with outside of pt's room at this time. Pt in isolation precautions and is currently on BIPAP. RN HARVEY introduced self and role at [facility]. Care providers, pharmacy, and demographics verified/updated at this time. PCP: Dr Valencia. states pt has an appt with him either next Wed or . Specialists: Dr Alan--cardiology, Dr Powers--pulmonology Preferred Pharmacy: [facility] Retail Insurance: MCR A, B, AARP Prescription Benefit: Yes LNOK: , [facility] Living Arrangements: Lives with in one-story home w/2 steps to enter. Pt is mostly independent w/ADL's, however if assist is needed, can help. Transportation: drives and denies transportation concerns. DME: Has the following DME: cane, walker, side rails for toilet, grab bars in shower. -Oxygen through [facility]. Uses 4 L NC daily and has been increasing to 5 L/M when doing exercises. Has concentrator and portability, although states the concentrator does not seem to be working. She states she plans to contact [facility] while pt @ [facility] to have them service it prior to pt returning home. -Has Trilogy at home. States she did bring in the Trilogy to [facility] last admit and had resp therapy check it out d/t they did not know if it was working properly. states it is working well now and that pt has been using it @ home. She states no need for further DME at this time. HHC/SNF: Hx of [facility] 2019. [facility] HHC amd OP therapy @ [facility]. states pt has been doing well at home and has been doing exercises in the home. is unsure at this time if pt willl want/need HHC @ discharge. FLORINDA GABRIEL informed her CM will continue to follow and assist with discharge planning needs. CM to follow for home oxygen needs and any further discharge planning/needs. voices no further concerns/needs at this time. Advised to ask for CM if any further questions/concerns/needs arise. Voices understanding. PLAN: TBD. Anticipate will be able to return home. Follow for possible need of HHC. CM to follow for any increasing O2 needs. Corrie CRAWFORD RN, CM
--- NOTE | 2019-10-22 10:22 | PCM.CON.CC ---
Problem List (1) Hypoxia Status: Acute (2) Respiratory failure Status: Acute Qualifiers: Chronicity: acute Respiratory failure complication: hypoxia Qualified Code(s): J96.01 - Acute respiratory failure with hypoxia (3) Colon polyps Status: Chronic (4) Mobitz type 1 second degree AV block Status: Acute (5) History of appendectomy Status: Resolved (6) Hx of cataract surgery Status: Resolved (7) Acute and chronic respiratory failure Status: Chronic Qualifiers: Respiratory failure complication: hypoxia and hypercapnia Qualified Code(s): J96.21 - Acute and chronic respiratory failure with hypoxia; J96.22 - Acute and chronic respiratory failure with hypercapnia (8) Stage 3 severe COPD by GOLD classification Status: Chronic Comment: FEV1 44% of predicted on PFT 12/15/2016 at [facility] (9) Diastolic dysfunction Status: Chronic (10) Presence of cardiac pacemaker Status: Chronic (11) Essential hypertension Status: Chronic (12) Aortic valve stenosis, nonrheumatic Status: Chronic (13) History of permanent cardiac pacemaker placement Status: Resolved Comment: 06/11/17 (14) Pulmonary hypertension Status: Chronic (15) GERD (gastroesophageal reflux disease) Status: Chronic Qualifiers: Esophagitis presence: esophagitis presence not specified Qualified Code(s): K21.9 - Gastro-esophageal reflux disease without esophagitis (16) Bullous emphysema Status: Chronic Reason for Consult Date of Consultation: 10/22/19 Reason for Consultation: Respiratory failure History of Present Illness: The patient is a 84 year old M, with past medical history listed below and well-known to me from previous hospitalizations, who presented was [facility] - [place], [place] on 10/22/2019 secondary to acute onset of shortness of breath and wheezing. Patient reportedly was woken up in the middle of the evening at approximately 2 AM with complaints of shortness of breath. Patient states he had been added to his baseline function on the day previously. Patient was noted to have a pulse ox in the 70s when they arrived on 5 L. EMS started patient on CPAP therapy, gave him DuoNeb and albuterol with some improvement. Patient denies any recent fever or chills. No sick contacts of been reported. Patient's daughter does transport them around and was recently hospitalized for kidney issues, but otherwise they do not report any health care exposure. Patient reports moderate to severe heaviness of his chest, but this appears to be improving with BiPAP therapy. In the ER, patient reportedly had a paced rhythm of 119 bpm and was placed on BiPAP therapy. Patient was also given Solu-Medrol. Lab work showed a leukocytosis, but no acute renal insufficiency. Chest x-ray showed consistent infiltrates that are unchanged from previous. Troponin was mildly elevated. Patient was noted to have hypochloremia and hyponatremia. Patient was admitted to the intensive care unit for further evaluation. Patient does report significant lower extremity edema over the last 1 to 2 days. Patient reportedly had had some fatigue yesterday, but denies any subjective fevers or productive cough. Patient states when he woke up in the morning he thought his heart rate was around 130. Patient denied any chest pain after arrival to the intensive care unit. Did discuss CODE STATUS with the patient and he stated my wants me to do everything. Remainder of the review of systems was unable to be obtained secondary to acute condition. Past Medical History Past Medical History (Chronic Problems): Chronic Problems (Last Reviewed 10/20/19 @ 13:39 by Nya Reveles) COPD with exacerbation (Chronic) Colon polyps (Chronic) Acute and chronic respiratory failure (Chronic) Stage 3 severe COPD by GOLD classification (Chronic) FEV1 44% of predicted on PFT 12/15/2016 at [facility] Diastolic dysfunction (Chronic) 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) Essential hypertension (Chronic) Paroxysmal atrial flutter (Chronic) Non-rheumatic tricuspid valve insufficiency (Chronic) Aortic valve stenosis, nonrheumatic (Chronic) 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) Chronic respiratory failure (Chronic) COPD (chronic obstructive pulmonary disease) (Chronic) Conduction disorder of the heart (Chronic) Pulmonary hypertension (Chronic) GERD (gastroesophageal reflux disease) (Chronic) Bullous emphysema (Chronic) Medical History: Medical History (Last Reviewed 10/20/19 @ 13:39 by Nya Reveles) Colon polyps (Chronic) Mobitz type 1 second degree AV block (Acute) I44.1 Anxiety (Acute) F41.9 Paroxysmal atrial flutter (Chronic) I48.92 Aortic valve stenosis, nonrheumatic (Chronic) I35.0 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) I44.1 Chronic respiratory failure (Chronic) J96.10 COPD (chronic obstructive pulmonary disease) (Chronic) J44.9 Conduction disorder of the heart (Chronic) I45.9 Pulmonary hypertension (Chronic) I27.20 GERD (gastroesophageal reflux disease) (Chronic) K21.9 Bullous emphysema (Chronic) J43.9 Lung cancer (Inactive) C34.90 Allergies ampicillin Allergy (Verified 10/22/19 05:39) Anaphylaxis azithromycin Allergy (Verified 10/22/19 05:39) Rash codeine Allergy (Verified 10/22/19 05:39) Rash penicillin G Allergy (Verified 10/22/19 05:39) Rash Sulfa (Sulfonamide Antibiotics) Allergy (Verified 10/22/19 05:39) Rash sulfamethoxazole [From Bactrim] Allergy (Verified 10/22/19 05:39) Rash trimethoprim [From Bactrim] Allergy (Verified 10/22/19 05:39) Rash Home Medications: Ambulatory Orders Medication Instructions Recorded Acetaminophen [Tylenol Tablet] 650 mg PO Q6H PRN PRN #0 tab 10/24/16 Losartan Potassium 25 mg PO DAILY #0 06/12/17 Albuterol Aerosols [Ventolin 2.5 mg INHALATION Q4H PRN PRN #90 07/17/19 Aerosols] vial.neb. Ipratropium/Albuterol Sulfate 3 ml INHALATION Q8 08/13/19 [Duoneb] albuterol sulfate 90 mcg/actuation 2 puff INHALATION Q4H PRN PRN #18 g 09/02/19 aerosol inhaler potassium chloride 10 mEq 10 meq PO DAILY #30 cap 10/10/19 capsule,extended release fluticasone fur. 100 mcg-umeclid 1 inh INHALATION DAILY #1 ea 10/13/19 62.5 mcg-vilant 25 mcg inhalat.powder furosemide 40 mg tablet 40 mg PO DAILY #30 tab 10/14/19 metolazone 2.5 mg tablet 2.5 mg PO QWEEK tab 10/20/19 Surgical History: Surgical History (Last Reviewed 10/20/19 @ 13:39 by Nya Reveles) History of appendectomy (Resolved) Z98.890, Z90.49 Hx of cataract surgery (Resolved) Z98.49 History of permanent cardiac pacemaker placement (Resolved) Z95.0 06/11/17 Surgical History: appendectomy, cataract, pacemaker implantation Psychiatric History: Anxiety, Depression Lives: With Family Smoking Status: Former smoker Alcohol: None Drugs: None - *Family History Paternal Family History: Family History (Last Reviewed 10/20/19 @ 13:39 by Nya Reveles) Brother Diabetes Sister Diabetes Lung cancer History Items: Heart Disease - Father with history of heart disease, at age 96. Offspring Family History: Family History (Last Reviewed 10/20/19 @ 13:39 by Nya Reveles) Brother Diabetes Sister Diabetes Lung cancer History Items: COPD Sibling Family History: Family History (Last Reviewed 10/20/19 @ 13:39 by Nya Reveles) Brother Diabetes Sister Diabetes Lung cancer History Items: COPD, Diabetes, Heart Disease Maternal Family History: Family History (Last Reviewed 10/20/19 @ 13:39 by Nya Reveles) Brother Diabetes Sister Diabetes Lung cancer History Items: Heart Disease, - - osteoporosis Review of Systems Unable to obtain accurate/complete ROS d/t: Acute condition Patient Problems: Active and Suspected Problems (Last Reviewed 10/20/19 @ 13:39 by Nya Reveles) Hypoxia (Acute) Respiratory failure (Acute) Objective: Chest x-ray was relatively unchanged to slightly improved compared to previous. Multiple previous notes were reviewed. Patient has an FEV1 of 44% of predicted reported at [facility]. Patient has had SBRT of the right lower lobe with chronic changes thereafter. Last echocardiogram was completed in September of this year showed an EF of 55% with stage I diastolic dysfunction and pulmonary artery pressures of 50 mmHg. Patient also had moderate aortic stenosis - Physical Exam Vitals/I&O's: Vital Signs Temp Pulse Resp BP Pulse Ox 36.4 C L 94 26 H 100/63 98 10/22/19 08:53 10/22/19 10:00 10/22/19 10:00 10/22/19 10:00 10/22/19 10:00 Oxygen Delivery Method Bi-pap Weight: 62.2 kg Body Mass Index (BMI) 20.7 General: Alert, Cooperative, - - Moderate respiratory distress. Fair BiPAP synchrony. HEENT: Atraumatic, PERRLA, EOMI, Normocephalic, - - No scleral icterus or injection Oral: No Gingival or Mucosal Lesions/ Ulcerations, Dry Mucosa Neck: Supple, No JVD, No Nodes, Trachea Midline Lungs: No rhonchi, Diminished, Rales, Wheezes, - - Symmetric expansion. Mild intercostal muscle use Cardiovascular: Normal S1, Normal S2, Murmur - Grade 2 out of 6 systolic ejection murmur at the right sternal border, No rub noted, No Gallop, Tachycardic Abdomen: Bowel Sounds Present, Soft, Non Tender, Non-Distended Extremities: No clubbing, No cyanosis, Edema - 2-3+ lower extremities Skin: No rashes, No breakdown Musculoskeletal: No Tenderness to Palpation of Joints or Extremities Lymphatic: No Cervical, Supraclavicular, or Inguinal Adenopathy Neurological: Cranial nerves II-XII grossly intact, Neuro grossly intact, Motor Exam 5/5 strength throughout Psych/Mental Status: Anxious, Restless Laboratory Results 10/22/19 05:27: WBC 18.8 H, RBC 4.07 L, Hgb 11.0 L, Hct 36.5 L, MCV 89.7, MCH 27.0, MCHC 30.1 L, RDW Std Deviation 44.3 H, RDW Coeff of Earline 13.4, Plt Count 306, MPV 9.4, Immature Gran % (Auto) 0.700, Neut % (Auto) 84.4 H, Lymph % (Auto) 4.4 L, [place] % (Auto) 9.9, Eos % (Auto) 0.2, Baso % (Auto) 0.4, Absolute Neuts (auto) 15.8 H, Absolute Lymphs (auto) 0.83, Nucleated RBC % 0, Differential Comment SEE COMMENT, Diff Path Review Reviewed, Platelet Estimate ADEQUATE, RBC Morphology N CHROM, Anisocytosis RARE 10/22/19 05:27: Sodium 128 L, Potassium 4.4, Chloride 89 L, Carbon Dioxide 35.0 H, Anion Gap 4 L, BUN 16, Creatinine 0.77, Estim Creat Clear Calc 54.15, Est GFR (MDRD) Af Amer 124, Est GFR (MDRD) Non-Af 102, BUN/Creatinine Ratio 20.8 H, Glucose 210 H, Calcium 9.0, Troponin I 0.139 H Current Medications Acetaminophen (Tylenol) 650 mg PO Q6H PRN PRN PRN Reason: Pain Score 1-10/Temp > 100.7 F Albuterol/Ipratropium (Duoneb) 3 ml INHALATION Q4HWA.RT WEI Furosemide (Lasix) 40 mg IV Q8 WEI Glucagon () 1 mg IM .X1 PRN PRN Reason: Hypoglycemia Heparin Sodium (Porcine) (Heparin Na) 5,000 unit SC Q8 WEI Dextrose (Dextrose 10%-Water) 250 mls @ 999 mls/hr IV .Q16M PRN; Protocol PRN Reason: HYPOGLYCEMIA Sodium Chloride () 250 mls @ 15 mls/hr IV .[id number] PRN PRN Reason: Saline Flush Sodium Chloride () 250 mls @ 15 mls/hr IV .[id number] PRN PRN Reason: Additional IVPB Infusion Insulin Human Lispro (Humalog Kwikpen (Bkc)) 0 unit SC ACHS WEI; Protocol Losartan Potassium (Cozaar) 25 mg PO DAILY WEI Methylprednisolone (Solu-Medrol) 40 mg IV Q8 WEI Nitroglycerin (Nitrostat) 0.4 mg SUBLINGUAL Q5M PRN PRN Reason: CARDIAC/CHEST PAIN Nutritional Formula (Lactose Free) (Glucerna Shake) 120 ml PO 4X/DAY WEI Ondansetron HCl (Zofran) 4 mg IV Q8H PRN PRN PRN Reason: NAUSEA/VOMITING Potassium Chloride (K-Dur) 10 meq PO DAILY WEI Sodium Chloride () 10 - 40 ml IV UD PRN PRN Reason: SALINE FLUSH Clinical Impression(s) from Imaging Studies Chest X-Ray 10/22/19 05:36 IMPRESSION: 1. No significant change. Bilateral lower lobe chronic appearing infiltrates, larger on the right. Small right pleural effusion. 2. Background chronic emphysema. at 0638 Reported and signed by: Shailesh Olivares MD Electronically Signed: Shailesh Olivares, at 6:37 EDT Tel , Service support , Assessment/Plan Active and Suspected Problems (Last Reviewed 10/20/19 @ 13:39 by Nya Reveles) Hypoxia (Acute) Respiratory failure (Acute) RECOMMENDATIONS: 1. BiPAP breaks as tolerated 2. Discontinue steroids. No antibiotics indicated from my perspective 3. Agree with bronchodilators and diuretic therapy. 4. Wean oxygen as tolerated 5. Walking oximetry prior to discharge 6. Consider interrogation of pacemaker for overnight events IMPRESSIONS: 1. Acute on chronic combined respiratory failure Patient with persistent infiltrate on chest x-ray and lower extremity edema. Patient is not reporting any change in cough at this time. Patient did have significant leukocytosis at presentation, but this may be secondary to stress response. Clinical suspicion for an element of acute on chronic diastolic congestive heart failure complicating overall pulmonary condition. Patient and are very clear that symptoms started abruptly at 2 AM with tachycardia. Patient would benefit from continued diuresis. BiPAP breaks as tolerated. 2. 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 There has been no evidence of cancer recurrence according to the patient's pulmonary provider at [facility]. 3. 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 Patient appears to be responding to positive pressure, but will likely decompensate with taking a break if diuretics are not used. Await response to diuretic therapy. Patient also has pulmonary hypertension, likely type II, that will complicate overall condition. 5. Pulmonary hypertension/hypertension/hyperlipidemia/advanced age/CODE STATUS Complicates care, management, recovery and prognosis. Physical therapy to work with patient as tolerated. Goals of care/CODE STATUS was discussed with the patient and he wishes to remain full code. Patient feels I have always improved in the past. TIME: 35 minutes critical care time spent addressing patient's acute on chronic combined respiratory failure, acute on chronic CHF, review of all data and collaboration with care team (9 AM to 10:30 AM) 9xxxx: [id number] Critical care first hour
[2019-10-22] MEDS: Ipratropium/Albuterol Sulfate 3 ML AMPUL.NEB INHALATION ×3 (11:09→18:55)
[2019-10-22 11:20] LABS: Base Excess 10 mmol/L (-2 to +2); Bicarbonate 34.9 mmol/L (22-26); Blood Gas Specimen Type ART; EPAP 8; FI02 35; IPAP 18; PO2 76 mmHG (75-100); RR 12; SITE R Brachial; SO2 95 % (95-99); Time Given 1115; Total Carbon Dioxide 37 mmol/L; pCO2 55.8 mmHg (35-45); pH 7.41 (7.35-7.45)
[2019-10-22 12:36] LABS: Bedside Glucose 168 mg/dL (70-110)
--- NOTE | 2019-10-22 14:03 | CASEMGMT ---
SW spoke w/ about LW/POA. states they do not have POA papers, not interested at this time in completed POA forms. VISHAL Contreras
--- NOTE | 2019-10-22 14:04 | CASEMGMT ---
SW spoke w/ about palliative care. states has information regarding palliative care, and states she plans to call when she gets home. SW offered to make referral from hospital, she declined, plans to follow up after hospitalization. SW remains available for any additional social service needs. VISHAL Contreras
[2019-10-22] MEDS: Heparin Injection (Vial) 5,000 UNIT/ML VIAL 5000 UNIT SC ×2 (14:56→21:21)
[2019-10-22] MEDS: Furosemide 40 MG/4 ML Vial IV ×2 (14:56→21:21)
[2019-10-22 16:20] LABS: Bedside Glucose 143 mg/dL (70-110)
[2019-10-22] MEDS: 0.9% Saline Lock 10 ML Syringe IV (21:22)
[2019-10-22 21:26] LABS: Bedside Glucose 134 mg/dL (70-110)
[2019-10-23] VITALS (23 sets, daily range): BP systolic 87–110; BP diastolic 44–61; PULSE 71–105; RESP 12–26; TEMP 36.3–36.8; O2SAT 92–99
[2019-10-23 04:23] LABS: Absolute Lymphocyte Count 0.94 X10^3/uL (0.83-4.51); Absolute Neutrophil Count 4.6 X10^3/uL (2.0-7.7); Basophil# 0.01 X10^3/uL; Basophil% 0.2 % (0-1); Eosinophil# 0.01 X10^3/uL; Eosinophils% 0.2 % (0-5); Hematocrit 28.5 % (40-54); Hemoglobin 8.8 g/dL (13.0-16.5); Lymphocyte # 0.94 X10^3/ul (4.0); Lymphocyte % 14.2 % (19-41); Mean Corp Hgb Conc 30.9 g/dL (32-36); Mean Corpuscular Hgb 27.4 pg (27.0-32.0); Mean Corpuscular Volume 88.8 fL (80-94); Mean Platelet Vol. 9.3 fl (6.2-12.0); Monocyte# 0.97 X10^3/uL; Monocyte% 14.7 % (0-10); NRBC Flagged by Analyzer 0 % (0-5); Neutrophil # 4.62 X10^3/uL (2.7-7.7); Neutrophil % 69.9 % (47-70); Platelet Count 211 K/mm3 (150-450); RBC Distribution Width CV 13.9 % (11.6-14.6); RBC Distribution Width SD 45.3 fl (35.1-43.9); Red Blood Count 3.21 M/mm3 (4.6-6.2); White Blood Count 6.6 K/mm3 (4.4-11.0)
[2019-10-23 04:28] LABS: ALB/GLOB Ratio 1.1 RATIO (0.9-2.4); AST(SGOT) 40 U/L (15-37); Alanine Aminotransfer ALT/SGPT 69 U/L (16-61); Albumin, Serum 3.2 g/dL (3.2-5.0); Alkaline Phosphatase 68 U/L (45-117); Anion Gap 2 (5-15); BUN 19 mg/dL (7-18); BUN/Creat Ratio 26.7 RATIO (10-20); Chloride 91 mmol/L (98-107); Creatinine, Serum 0.71 mg/dL (0.70-1.30); EST Glomerular Filtration Rate 112 mL/min (>60); Est Glom Filt Rate - Afr Amer 136 mL/min (>60); Estimated Creatinine Clearance 49.24 ml/min; Glucose 100 mg/dL (74-106); Potassium 4.1 mmol/L (3.5-5.1); Protein, Total 6.2 g/dL (6.4-8.2); Sodium Level 130 mmol/L (136-145)
[2019-10-23] MEDS: Furosemide 40 MG/4 ML Vial IV ×3 (05:26→21:26)
[2019-10-23] MEDS: Heparin Injection (Vial) 5,000 UNIT/ML VIAL 5000 UNIT SC ×3 (05:26→21:26)
[2019-10-23] MEDS: 0.9% Saline Lock 10 ML Syringe IV ×2 (05:26→21:26)
[2019-10-23] MEDS: Senna/Docusate Sodium 1 Tablet 2 TABLET PO (06:46)
[2019-10-23] MEDS: Ipratropium/Albuterol Sulfate 3 ML AMPUL.NEB INHALATION ×4 (06:46→19:30)
--- NOTE | 2019-10-23 07:10 | PN_ITS ---
Subjective: Patient feels significant subjective improvement compared to yesterday. Patient was on the BiPAP for the majority of the evening, but is currently on 5 L. Patient asking for breakfast. No chest pain was reported. No bleeding has been reported. General: Alert, Oriented x3, Cooperative, - - Mild conversational dyspnea. HEENT: Atraumatic, PERRLA, EOMI, Normocephalic, - - No scleral icterus or injection noted Oral: Moist Mucosa, No Gingival or Mucosal Lesions/ Ulcerations Neck: Supple, No Nodes, Trachea Midline, JVD, Right Lungs: No rhonchi, No wheeze, Diminished, Rales - Right base Cardiovascular: Regular rate, Regular Rhythm, Normal S1, Normal S2, Murmur - Unchanged, No rub noted, No Gallop Abdomen: Bowel Sounds Present, Soft, Non Tender, Non-Distended Extremities: No clubbing, No cyanosis, Edema - Improved Skin: No rashes, No breakdown Musculoskeletal: No Tenderness to Palpation of Joints or Extremities Lymphatic: No Cervical, Supraclavicular, or Inguinal Adenopathy Neurological: Cranial nerves II-XII grossly intact, Neuro grossly intact, Motor Exam 5/5 strength throughout Psych/Mental Status: Alert and oriented to time, place, person, mood and affect Vital Signs Temp Pulse Resp BP Pulse Ox 36.8 C 81 19 H 105/57 L 97 10/23/19 04:00 10/23/19 06:00 10/23/19 06:00 10/23/19 06:00 10/23/19 06:00 Oxygen Flow Rate (L/min) 5 Oxygen Delivery Method Nasal Cannula Weight: 61.5 kg Body Mass Index (BMI) 20.7 Intake and Output for Last 24 Hours 10/21/19 10/22/19 10/23/19 23:59 23:59 23:59 Intake Total 0 / 0 50 / 50 Output Total 900 / 900 275 / 275 Balance -900 / -900 -225 / -225 Labs (Last 48 Hours) 10/22/19 10/22/19 10/22/19 05:27 05:27 11:17 WBC 18.8 H RBC 4.07 L Hgb 11.0 L Hct 36.5 L MCV 89.7 MCH 27.0 MCHC 30.1 L RDW Std Deviation 44.3 H RDW Coeff of Earline 13.4 Plt Count 306 MPV 9.4 Immature Gran % (Auto) 0.700 Neut % (Auto) 84.4 H Lymph % (Auto) 4.4 L [place] % (Auto) 9.9 Eos % (Auto) 0.2 Baso % (Auto) 0.4 Absolute Neuts (auto) 15.8 H Absolute Lymphs (auto) 0.83 Nucleated RBC % 0 Differential Comment SEE COMMENT Diff Path Review Reviewed Platelet Estimate ADEQUATE RBC Morphology N CHROM Anisocytosis RARE Specimen Type ART Sample Site R Brachial pH 7.41 Bicarbonate Actual 34.9 H POC Total CO2 37 Base Excess 10 H O2 Saturation 95 O2 % 35 ABG pCO2 55.8 H ABG pO2 76 Mo Test NA Respiration Rate 12 O2 Delivery Device Bi / C PAP EPAP 8 IPAP 18 Blood Gas Notified Whom ICU MD Blood Gas Notified Time 1115 Sodium 128 L Potassium 4.4 Chloride 89 L Carbon Dioxide 35.0 H Anion Gap 4 L BUN 16 Creatinine 0.77 Estim Creat Clear Calc 54.15 Est GFR (MDRD) Af Amer 124 Est GFR (MDRD) Non-Af 102 BUN/Creatinine Ratio 20.8 H Glucose 210 H Calcium 9.0 Total Bilirubin AST ALT Alkaline Phosphatase Troponin I 0.139 H Total Protein Albumin Globulin Albumin/Globulin Ratio POC Glucose 10/22/19 10/22/19 10/22/19 12:33 16:14 17:00 WBC RBC Hgb Hct MCV MCH MCHC RDW Std Deviation RDW Coeff of Earline Plt Count MPV Immature Gran % (Auto) Neut % (Auto) Lymph % (Auto) [place] % (Auto) Eos % (Auto) Baso % (Auto) Absolute Neuts (auto) Absolute Lymphs (auto) Nucleated RBC % Differential Comment Diff Path Review Platelet Estimate RBC Morphology Anisocytosis Specimen Type Sample Site pH Bicarbonate Actual POC Total CO2 Base Excess O2 Saturation O2 % ABG pCO2 ABG pO2 Mo Test Respiration Rate O2 Delivery Device EPAP IPAP Blood Gas Notified Whom Blood Gas Notified Time Sodium Potassium Chloride Carbon Dioxide Anion Gap BUN Creatinine Estim Creat Clear Calc Est GFR (MDRD) Af Amer Est GFR (MDRD) Non-Af BUN/Creatinine Ratio Glucose Calcium Total Bilirubin AST ALT Alkaline Phosphatase Troponin I Cancelled Total Protein Albumin Globulin Albumin/Globulin Ratio POC Glucose 168 H 143 H 10/22/19 10/22/19 10/22/19 18:30 21:18 21:20 WBC RBC Hgb Hct MCV MCH MCHC RDW Std Deviation RDW Coeff of Earline Plt Count MPV Immature Gran % (Auto) Neut % (Auto) Lymph % (Auto) [place] % (Auto) Eos % (Auto) Baso % (Auto) Absolute Neuts (auto) Absolute Lymphs (auto) Nucleated RBC % Differential Comment Diff Path Review Platelet Estimate RBC Morphology Anisocytosis Specimen Type Sample Site pH Bicarbonate Actual POC Total CO2 Base Excess O2 Saturation O2 % ABG pCO2 ABG pO2 Mo Test Respiration Rate O2 Delivery Device EPAP IPAP Blood Gas Notified Whom Blood Gas Notified Time Sodium Potassium Chloride Carbon Dioxide Anion Gap BUN Creatinine Estim Creat Clear Calc Est GFR (MDRD) Af Amer Est GFR (MDRD) Non-Af BUN/Creatinine Ratio Glucose Calcium Total Bilirubin AST ALT Alkaline Phosphatase Troponin I 0.704 H* 0.644 H* Total Protein Albumin Globulin Albumin/Globulin Ratio POC Glucose 134 H 10/23/19 10/23/19 10/23/19 00:20 03:55 03:55 WBC 6.6 RBC 3.21 L Hgb 8.8 L Hct 28.5 L MCV 88.8 MCH 27.4 MCHC 30.9 L RDW Std Deviation 45.3 H RDW Coeff of Earline 13.9 Plt Count 211 MPV 9.3 Immature Gran % (Auto) 0.800 Neut % (Auto) 69.9 Lymph % (Auto) 14.2 L [place] % (Auto) 14.7 H Eos % (Auto) 0.2 Baso % (Auto) 0.2 Absolute Neuts (auto) 4.6 Absolute Lymphs (auto) 0.94 Nucleated RBC % 0 Differential Comment Diff Path Review Platelet Estimate RBC Morphology Anisocytosis Specimen Type Sample Site pH Bicarbonate Actual POC Total CO2 Base Excess O2 Saturation O2 % ABG pCO2 ABG pO2 Mo Test Respiration Rate O2 Delivery Device EPAP IPAP Blood Gas Notified Whom Blood Gas Notified Time Sodium 130 L Potassium 4.1 Chloride 91 L Carbon Dioxide 37.0 H Anion Gap 2 L BUN 19 H Creatinine 0.71 Estim Creat Clear Calc 49.24 Est GFR (MDRD) Af Amer 136 Est GFR (MDRD) Non-Af 112 BUN/Creatinine Ratio 26.7 H Glucose 100 Calcium 9.0 Total Bilirubin 0.30 AST 40 H ALT 69 H Alkaline Phosphatase 68 Troponin I 0.617 H* Total Protein 6.2 L Albumin 3.2 Globulin 3.0 Albumin/Globulin Ratio 1.1 POC Glucose Microbiology 10/22/19 11:30 Mucosa - Nasopharyngeal Respiratory Panel (PCR) - Final Clinical Impression(s) from Imaging Studies Chest X-Ray 10/22/19 05:36 IMPRESSION: 1. No significant change. Bilateral lower lobe chronic appearing infiltrates, larger on the right. Small right pleural effusion. 2. Background chronic emphysema. at 0638 Reported and signed by: Shailesh Olivares MD Electronically Signed: Shailesh Olivares, at 6:37 EDT Tel , Service support , Medical Necessity - Tobacco Use Smoking Status: Former smoker Assessment/Plan All Active Problems (Last Reviewed 10/20/19 @ 13:39 by Nya Reveles) Hypoxia (Acute) Respiratory failure (Acute) Mobitz type 1 second degree AV block (Acute) Anxiety (Acute) History of appendectomy (Resolved) Hx of cataract surgery (Resolved) COPD exacerbation (Acute) History of permanent cardiac pacemaker placement (Resolved) RECOMMENDATIONS: 1. BiPAP breaks as tolerated 2. No antibiotics or steroids indicated from my perspective 3. Agree with bronchodilators and diuretic therapy. Add Pulmicort for therapeutic substitution of home medications 4. Wean oxygen as tolerated 5. Walking oximetry prior to discharge 6. Okay to leave the intensive care unit from my perspective IMPRESSIONS: 1. Acute on chronic combined respiratory failure Patient with persistent infiltrate on chest x-ray and lower extremity edema. Patient is not reporting any change in cough at this time. Patient did have significant leukocytosis at presentation, but this has completely resolved after acute stress response. Clinical suspicion for an element of acute on chronic diastolic congestive heart failure complicating overall pulmonary condition. Patient and are very clear that symptoms started abruptly at 2 AM on the day of presentation with tachycardia. Patient would benefit from continued diuresis. BiPAP breaks as tolerated. Patient with significant improvement in respiratory status despite marginal negative fluid balance 2. 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 There has been no evidence of cancer recurrence according to the patient's pulmonary provider at [facility]. 3. 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 Patient appears to be responding to positive pressure, but will likely decompensate with taking a break if diuretics are not used. Await response to diuretic therapy. Patient also has pulmonary hypertension, likely type II, that will complicate overall condition. 5. Pulmonary hypertension/hypertension/hyperlipidemia/advanced age/CODE STATUS Complicates care, management, recovery and prognosis. Physical therapy to work with patient as tolerated. Goals of care/CODE STATUS was discussed with the patient and he wishes to remain full code. Patient feels I have always improved in the past. Inpatient E&M: [id number] [facility] L3
[2019-10-23 08:16] LABS: Bedside Glucose 88 mg/dL (70-110)
--- NOTE | 2019-10-23 09:25 | PN_ITS ---
Patient Problems: Active and Suspected Problems (Last Reviewed 10/20/19 @ 13:39 by Nya Reveles) Hypoxia (Acute) Respiratory failure (Acute) Reason for Visit: Follow-up on acute respiratory failure secondary to acute on chronic diastolic CHF Subjective: Patient was seen and examined. Denied any new complaints. Feels better. On 5 L of oxygen. Objective: Physical exam: General: Alert, Oriented x3, Cooperative, No apparent distress HEENT: Atraumatic, PERRLA, EOMI, Normocephalic Neck: Supple, No JVD, Negative Carotid Bruits Lungs: Clear to auscultation, Normal air movement Cardiovascular: Regular rate, Regular Rhythm, Normal S1, Normal S2, No murmurs Abdomen: Bowel Sounds Present, Soft, Non Tender, Non-Distended, No Hepato- splenomegaly Extremities: Edema - bilateral pedal edema +1 Skin: No rashes Musculoskeletal: No Tenderness to Palpation of Joints or Extremities Neurological: Cranial nerves II-XII grossly intact, Neuro grossly intact Psych/Mental Status: Normal Affect, Appropriate Vitals/I&O's: Vital Signs Temp Pulse Resp BP Pulse Ox 98.3 F 81 19 H 105/57 L 97 10/23/19 04:00 10/23/19 07:00 10/23/19 06:00 10/23/19 06:00 10/23/19 06:00 Oxygen Flow Rate (L/min) 5 Oxygen Delivery Method Nasal Cannula Weight: 61.5 kg Body Mass Index (BMI) 20.7 Intake and Output for Last 24 Hours 10/21/19 10/22/19 10/23/19 23:59 23:59 23:59 Intake Total 0 / 0 50 / 50 Output Total 900 / 900 275 / 275 Balance -900 / -900 -225 / -225 Microbiology Past 72 Hours 10/22/19 11:30 Mucosa - Nasopharyngeal Respiratory Panel (PCR) - Final Laboratory Results 10/22/19 11:17: Specimen Type ART, Sample Site R Brachial, pH 7.41, Bicarbonate Actual 34.9 H, POC Total CO2 37, Base Excess 10 H, O2 Saturation 95, O2 % 35, ABG pCO2 55.8 H, ABG pO2 76, Mo Test NA, Respiration Rate 12, O2 Delivery Device Bi / C PAP, EPAP 8, IPAP 18, Blood Gas Notified Whom ICU , Blood Gas Notified Time 1115 10/22/19 12:33: POC Glucose 168 H 10/22/19 16:14: POC Glucose 143 H 10/22/19 17:00: Troponin I Cancelled 10/22/19 18:30: Troponin I 0.704 H* 10/22/19 21:18: POC Glucose 134 H 10/22/19 21:20: Troponin I 0.644 H* 10/23/19 00:20: Troponin I 0.617 H* 10/23/19 03:55: WBC 6.6, RBC 3.21 L, Hgb 8.8 L, Hct 28.5 L, MCV 88.8, MCH 27.4, MCHC 30.9 L, RDW Std Deviation 45.3 H, RDW Coeff of Earline 13.9, Plt Count 211, MPV 9.3, Immature Gran % (Auto) 0.800, Neut % (Auto) 69.9, Lymph % (Auto) 14.2 L, [place] % (Auto) 14.7 H, Eos % (Auto) 0.2, Baso % (Auto) 0.2, Absolute Neuts (auto) 4.6, Absolute Lymphs (auto) 0.94, Nucleated RBC % 0 10/23/19 03:55: Sodium 130 L, Potassium 4.1, Chloride 91 L, Carbon Dioxide 37.0 H, Anion Gap 2 L, BUN 19 H, Creatinine 0.71, Estim Creat Clear Calc 49.24, Est GFR (MDRD) Af Amer 136, Est GFR (MDRD) Non-Af 112, BUN/Creatinine Ratio 26.7 H, Glucose 100, Calcium 9.0, Total Bilirubin 0.30, AST 40 H, ALT 69 H, Alkaline Phosphatase 68, Total Protein 6.2 L, Albumin 3.2, Globulin 3.0, Albumin/Globulin Ratio 1.1 10/23/19 08:11: POC Glucose 88 Current Medications Acetaminophen (Tylenol) 650 mg PO Q6H PRN PRN PRN Reason: Pain Score 1-10/Temp > 100.7 F Albuterol/Ipratropium (Duoneb) 3 ml INHALATION Q4HWA.RT WEI Last Admin: 10/23/19 06:46 Dose: 3 ml Documented by: Budesonide (Pulmicort Aerosol) 0.5 mg INHALATION BID.RT WEI Furosemide (Lasix) 40 mg IV Q8 WEI Last Admin: 10/23/19 05:26 Dose: 40 mg Documented by: Glucagon () 1 mg IM .X1 PRN PRN Reason: Hypoglycemia Heparin Sodium (Porcine) (Heparin Na) 5,000 unit SC Q8 WEI Last Admin: 10/23/19 05:26 Dose: 5,000 unit Documented by: Dextrose (Dextrose 10%-Water) 250 mls @ 999 mls/hr IV .Q16M PRN; Protocol PRN Reason: HYPOGLYCEMIA Sodium Chloride () 250 mls @ 15 mls/hr IV .[id number] PRN PRN Reason: Saline Flush Sodium Chloride () 250 mls @ 15 mls/hr IV .[id number] PRN PRN Reason: Additional IVPB Infusion Insulin Human Lispro (Humalog Kwikpen (Bkc)) 0 unit SC ACHS COUNTS INCLUDE 234 BEDS AT THE [facility]; Protocol Last Admin: 10/23/19 08:44 Dose: Not Given Documented by: Losartan Potassium (Cozaar) 25 mg PO DAILY COUNTS INCLUDE 234 BEDS AT THE [facility] Last Admin: 10/22/19 12:46 Dose: Not Given Documented by: Nitroglycerin (Nitrostat) 0.4 mg SUBLINGUAL Q5M PRN PRN Reason: CARDIAC/CHEST PAIN Nutritional Formula (Lactose Free) (Glucerna Shake) 120 ml PO 4X/DAY COUNTS INCLUDE 234 BEDS AT THE [facility] Last Admin: 10/22/19 21:21 Dose: Not Given Documented by: Ondansetron HCl (Zofran) 4 mg IV Q8H PRN PRN PRN Reason: NAUSEA/VOMITING Potassium Chloride (K-Dur) 10 meq PO DAILY COUNTS INCLUDE 234 BEDS AT THE [facility] Last Admin: 10/22/19 12:46 Dose: Not Given Documented by: Senna/Docusate Sodium (Senokot-S, Angeli-Colace) 2 tablet PO DAILY PRN PRN PRN Reason: CONSTIPATION Sodium Chloride () 10 - 40 ml IV UD PRN PRN Reason: SALINE FLUSH Last Admin: 10/23/19 05:26 Dose: 10 ml Documented by: STROKE Vital Signs/Narrative: Vital Signs Pulse Resp BP Pulse Ox 10/23/19 07:00 81 10/23/19 06:00 81 19 H 105/57 L 97 Medical Necessity - Tobacco Use Smoking Status: Former smoker Assessment/Plan All Active Problems (Last Reviewed 10/20/19 @ 13:39 by Nya Reveles) Hypoxia (Acute) Respiratory failure (Acute) Anxiety (Acute) History of appendectomy (Resolved) Hx of cataract surgery (Resolved) COPD exacerbation (Acute) History of permanent cardiac pacemaker placement (Resolved) 84 year old M with multiple comorbidities including severe COPD on 4 L of oxygen, pulmonary hypertension, moderate aortic valve stenosis who comes in with shortness of breath that started this [place]. 1. Acute respiratory failure going to acute on chronic diastolic CHF, improved, almost at baseline We will continue to encourage use of incentive spirometer 2. Acute on chronic diastolic CHF, EF 55%, stage I diastolic dysfunction/severe pulmonary hypertension/moderate aortic valve stenosis Urine output has been fair, continue on IV Lasix 40 mg every 8h, strict I's and O's, CHF protocol Will consider decreasing Lasix from tomorrow 3. History of non-small cell lung CA, COPD, scattered wheezes heard on exam Continue on scheduled breathing treatments, BiPAP 4. Status post pacemaker for Mobitz type II 5. Hypertension, controlled, controlled losartan 6. Hyponatremia, likely hypervolemic, will trend BMP in a.m. 7. DVT prophylaxis -heparin subcu Inpatient E&M: [id number] Subs Hosp L2
[2019-10-23] MEDS: Budesonide Respules 0.5 MG/2 ML AMPUL.NEB. INHALATION ×2 (10:04→19:30)
[2019-10-23] MEDS: Losartan Potassium 25 MG Tablet PO (10:59)
[2019-10-23] MEDS: Glucerna Shake 120 ML LIQUID PO (10:59)
[2019-10-23 11:41] LABS: Hematocrit 31.2 % (40-54); Hemoglobin 9.3 g/dL (13.0-16.5)
--- NOTE | 2019-10-23 13:35 | CON.PCM_ITS ---
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 He has a history of moderate aortic stenosis, second-degree AV block type II with pacemaker placement, COPD, paroxysmal atrial fibrillation/flutter, and pulmonary hypertension. EMS was called to patient's house for increasing shortness of breath. He was noted be in the 70s percent when they arrived on 5 L nasal cannula. He was noted have underlying wheezing. He was placed on CPAP therapy. In the Emergency Department his EKG showed paced rhythm at 119 bpm. His laboratory tests revealed a WBC of 18.8, hemoglobin 11, platelet count 306, sodium: 128, potassium 4.4, creatinine 0.77, and initial troponin of 0.139. His chest x-ray revealed bilateral lower lobe chronic appearing infiltrates with larger on the right, small right pleural effusion, and background chronic emphysema. He was started on IV Lasix therapy for acute on chronic diastolic congestive heart failure. His Troponin trend hsa been 0.139, 0.704, 0.644, and 0.617. Cardiology was consulted for further recommendation/input. Past Medical History Allergies/Adverse Reactions: Allergies ampicillin Allergy (Verified 10/22/19 05:39) Anaphylaxis azithromycin Allergy (Verified 10/22/19 05:39) Rash codeine Allergy (Verified 10/22/19 05:39) Rash penicillin G Allergy (Verified 10/22/19 05:39) Rash Sulfa (Sulfonamide Antibiotics) Allergy (Verified 10/22/19 05:39) Rash sulfamethoxazole [From Bactrim] Allergy (Verified 10/22/19 05:39) Rash trimethoprim [From Bactrim] Allergy (Verified 10/22/19 05:39) Rash Home Medications: Ambulatory Orders Medication Instructions Recorded Acetaminophen [Tylenol Tablet] 650 mg PO Q6H PRN PRN #0 tab 10/24/16 Losartan Potassium 25 mg PO DAILY #0 06/12/17 Albuterol Aerosols [Ventolin 2.5 mg INHALATION Q4H PRN PRN #90 07/17/19 Aerosols] vial.neb. Ipratropium/Albuterol Sulfate 3 ml INHALATION Q8 08/13/19 [Duoneb] albuterol sulfate 90 mcg/actuation 2 puff INHALATION Q4H PRN PRN #18 g 09/02/19 aerosol inhaler potassium chloride 10 mEq 10 meq PO DAILY #30 cap 10/10/19 capsule,extended release fluticasone fur. 100 mcg-umeclid 1 inh INHALATION DAILY #1 ea 10/13/19 62.5 mcg-vilant 25 mcg inhalat.powder furosemide 40 mg tablet 40 mg PO DAILY #30 tab 10/14/19 metolazone 2.5 mg tablet 2.5 mg PO QWEEK tab 10/20/19 Past Medical History (Chronic Problems): Chronic Problems (Last Reviewed 10/20/19 @ 13:39 by Nya Reveles) COPD with exacerbation (Chronic) Colon polyps (Chronic) 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) Acute and chronic respiratory failure (Chronic) Stage 3 severe COPD by GOLD classification (Chronic) FEV1 44% of predicted on PFT 12/15/2016 at [facility] Diastolic dysfunction (Chronic) 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) Essential hypertension (Chronic) Paroxysmal atrial flutter (Chronic) Non-rheumatic tricuspid valve insufficiency (Chronic) Aortic valve stenosis, nonrheumatic (Chronic) 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) Chronic respiratory failure (Chronic) COPD (chronic obstructive pulmonary disease) (Chronic) Conduction disorder of the heart (Chronic) Pulmonary hypertension (Chronic) GERD (gastroesophageal reflux disease) (Chronic) Bullous emphysema (Chronic) Surgical History: appendectomy, cataract, pacemaker implantation Psychiatric History: Anxiety, Depression - *Family History Paternal Family History: Family History (Last Reviewed 10/20/19 @ 13:39 by Nya Reveles) Brother Diabetes Sister Diabetes Lung cancer History Items: Heart Disease - Father with history of heart disease, at age 96. Offspring Family History: Family History (Last Reviewed 10/20/19 @ 13:39 by Nya Reveles) Brother Diabetes Sister Diabetes Lung cancer History Items: COPD Sibling Family History: Family History (Last Reviewed 10/20/19 @ 13:39 by Nya Reveles) Brother Diabetes Sister Diabetes Lung cancer History Items: COPD, Diabetes, Heart Disease Maternal Family History: Family History (Last Reviewed 10/20/19 @ 13:39 by Nya Reveles) Brother Diabetes Sister Diabetes Lung cancer History Items: Heart Disease, - - osteoporosis Lives: With Family Smoking Status: Former smoker Alcohol: None Drugs: None Review of Systems - Review of Systems General: Reports: Fatigue. Denies: Fever, Malaise, Chills Cardiovascular: Reports: Shortness of Breath, Shortness of Breath with Exertion, Peripheral Edema, Palpitations. Denies: Chest Discomfort, Chest Discomfort at Rest, Chest Discomfort with Exertion, Chest Pressure, Chest Tightness, Chest Heaviness, Shortness of Breath at Rest, Orthopnea, PND, Lightheadedness, Dizziness, Near Syncope, Syncope, Orthostatic Symptoms, Claudication Respiratory: Reports: Cough Neurological: Denies: Dizziness Subjectve: Patient seen and evaluated. He states that his shortness of breath is slightly improved since admission. He denies any chest pain since last office visit and presenting to the emergency department. He denies any worsening lower extremity edema since office visit. He does acknowledge prior to calling EMS that he had episode of heart racing. He denies lightheadedness, dizziness, presyncope, or syncope. Objective: Vital Signs Temp Pulse Resp BP Pulse Ox 97.4 F L 90 16 97/49 L 94 10/23/19 08:00 10/23/19 10:04 10/23/19 10:04 10/23/19 09:00 10/23/19 09:00 Oxygen Flow Rate (L/min) 4 Oxygen Delivery Method Nasal Cannula Weight: 135 lb 9.349 oz Body Mass Index (BMI) 20.7 Intake and Output for Last 24 Hours 10/21/19 10/22/19 10/23/19 23:59 23:59 23:59 Intake Total 0 / 0 50 / 50 Output Total 900 / 900 275 / 275 Balance -900 / -900 -225 / -225 General: Healthy Appearing, Awake, Alert, Oriented x 3, Cooperative Neck: Supple, No JVD Lungs: Diminished Isiah Bases Cardiovascular: Regular Rhythm, Normal S1, Normal S2 Murmur Murmur: Grade 3/6, LLSB, LVOT, Sternal [place] Vascular: No Carotid Bruits Abdomen: Bowel Sounds Present, Soft Extremities: No Cyanosis, No Clubbing, Bilateral Edema +1 Neurological: No Focal Motor or Sensory Deficit Psych/Mental Status: Appropriate, Normal Affect 10/22/19 17:00: Troponin I Cancelled 10/22/19 18:30: Troponin I 0.704 H* 10/22/19 21:20: Troponin I 0.644 H* 10/23/19 00:20: Troponin I 0.617 H* 10/23/19 03:55: WBC 6.6, RBC 3.21 L, Hgb 8.8 L, Hct 28.5 L, MCV 88.8, MCH 27.4, MCHC 30.9 L, Plt Count 211, MPV 9.3, Immature Gran % (Auto) 0.800, Neut % (Auto) 69.9, Lymph % (Auto) 14.2 L, [place] % (Auto) 14.7 H, Eos % (Auto) 0.2, Baso % (Auto) 0.2, Absolute Neuts (auto) 4.6, Nucleated RBC % 0 10/23/19 03:55: Sodium 130 L, Potassium 4.1, Chloride 91 L, Carbon Dioxide 37.0 H, Anion Gap 2 L, BUN 19 H, Creatinine 0.71, Est GFR (MDRD) Af Amer 136, Est GFR (MDRD) Non-Af 112, BUN/Creatinine Ratio 26.7 H, Glucose 100, Calcium 9.0, Total Bilirubin 0.30 10/23/19 11:00: Hgb 9.3 L, Hct 31.2 L Transthoracic echocardiogram: 10-29-18 Interpretation Summary The study was technically difficult. Mild segmental systolic dysfunction (see wall motion). The estimated ejection fraction is 45 %. The left atrium is mildly enlarged. There is moderate to severe mitral annular calcification. Extension of the mitral annular calcification onto the posterior mitral valve leaflet. Trivial mitral valve insufficiency. Mild to moderate (1-2+) tricuspid valve insufficiency. Moderate to severe aortic valve stenosis. Right ventricular systolic pressure estimated to be 78 mmHg. There is evidence of diastolic dysfunction. Comment: The 2D echocardiographic findings regarding the left ventricular wall motion are potentially c/w a Takotsubo Syndrome. Echocardiogram on 09/08/2019: Normal LV size. Left ventricular systolic function is normal. The estimated ejection fraction is 55 %. Stage 1 diastolic dysfunction. Moderate pulmonary hypertension. Mean aortic valve gradient 23 mmHg. Compared to the previous the AV sthe same with the mean gradient unchanged. The pulmonary pressures are better. Assessment/Plan 1. Elevated troponin * At this time, this is attributed to type II/supply demand mismatch event. His troponin is relatively flat. * We could consider outpatient stress test as long as he symptomatically continues to improve and remains hemodynamically stable. If new onset of chest pain, symptoms worsen, or he does not progress as expected, we can reevaluate need for coronary artery disease evaluation with stress test or heart catheterization. 2. Acute on Chronic Diastolic Congestive Heart Failure * Continue Lasix 40 mg IV every 8 hours. Transition to oral Lasix as he continues to improve. * On an outpatient basis his metolazone was changed to as needed due to not feeling well and significant constipation thought related to dehydration. He was on Lasix 40 mg p.o. daily. Thus, he may best benefit from discharge at Lasix 40 mg p.o. twice daily. This can be adjusted as needed/indicated. 3. Mobitz type II second-degree AV block * He is status post permanent pacemaker for this and was last evaluated on 10/10/2019 4. Presence of cardiac pacemaker * His most recent pacemaker evaluation from 10/10/2019 showed 5 mode switch episodes, less than 1% of total time, and no NSVT episodes since 02/26/2019. Stored electrograms for mode switch episodes show atrial flutter with appropriate mode switch. Longest episode 4 seconds. Ventricular paced 90%. Atrial paced 2%. Estimate battery life of 6 years. * Patient's pacemaker/ICD appears to be functioning appropriately. We will continue to monitor this with routine/scheduled follow-ups. 5. Paroxysmal atrial flutter I48.92 * As noted above, he did have 5 mode switch episodes comprising less than 1% of total time. At this time, he is not on rate limiting or anticoagulation therapy. We will continue to monitor. If he develops elevated heart rates, we may need to consider rate limiting medications. If he develops recurring longstanding atrial fibrillation, we will need to consider anticoagulation therapy. 6. Aortic valve stenosis, nonrheumatic I35.0 * His most recent echocardiogram September 2019 showed an ejection fraction of 55% and mean aortic valve gradient 23 mmHg. Compared to previous, mean gradients were unchanged. At this time, he will continue current medical therapy. We will continue to monitor through history, exam, and repeat echocardiogram. Patient's case was reviewed with Dr. Braun, who also personally evaluated patient. Please see his dictation for further input and recommendations. Thank you for allowing us to participate in the patients plan of care, if you have any questions please do not hesitate to call. This note was generated using a voice recognition system and there may be incorrect words, spelling or punctuation that were not noted when reviewing the office note prior to saving. <Yulissa Braun - Last Filed: 10/23/19 15:21> Reason for Consult History of Present Illness: The patient is a 84 year old M [] Past Medical History - *Family History Paternal Family History: Family History (Last Reviewed 10/20/19 @ 13:39 by Nya Reveles) Brother Diabetes Sister Diabetes Lung cancer Offspring Family History: Family History (Last Reviewed 10/20/19 @ 13:39 by Nya Reveles) Brother Diabetes Sister Diabetes Lung cancer Sibling Family History: Family History (Last Reviewed 10/20/19 @ 13:39 by Nya Reveles) Brother Diabetes Sister Diabetes Lung cancer Maternal Family History: Family History (Last Reviewed 10/20/19 @ 13:39 by Nya Reveles) Brother Diabetes Sister Diabetes Lung cancer Objective: Vital Signs Temp Pulse Resp BP Pulse Ox 97.8 F 87 21 H 101/48 L 97 10/23/19 14:24 10/23/19 14:35 10/23/19 14:35 10/23/19 14:24 10/23/19 14:24 Oxygen Flow Rate (L/min) 4 Oxygen Delivery Method Nasal Cannula Weight: 135 lb 9.349 oz Body Mass Index (BMI) 20.7 Intake and Output for Last 24 Hours 10/21/19 10/22/19 10/23/19 23:59 23:59 23:59 Intake Total 0 / 0 50 / 50 Output Total 900 / 900 275 / 275 Balance -900 / -900 -225 / -225 10/22/19 17:00: Troponin I Cancelled 10/22/19 18:30: Troponin I 0.704 H* 10/22/19 21:20: Troponin I 0.644 H* 10/23/19 00:20: Troponin I 0.617 H* 10/23/19 03:55: WBC 6.6, RBC 3.21 L, Hgb 8.8 L, Hct 28.5 L, MCV 88.8, MCH 27.4, MCHC 30.9 L, Plt Count 211, MPV 9.3, Immature Gran % (Auto) 0.800, Neut % (Auto) 69.9, Lymph % (Auto) 14.2 L, [place] % (Auto) 14.7 H, Eos % (Auto) 0.2, Baso % (Auto) 0.2, Absolute Neuts (auto) 4.6, Nucleated RBC % 0 10/23/19 03:55: Sodium 130 L, Potassium 4.1, Chloride 91 L, Carbon Dioxide 37.0 H, Anion Gap 2 L, BUN 19 H, Creatinine 0.71, Est GFR (MDRD) Af Amer 136, Est GFR (MDRD) Non-Af 112, BUN/Creatinine Ratio 26.7 H, Glucose 100, Calcium 9.0, Total Bilirubin 0.30 10/23/19 11:00: Hgb 9.3 L, Hct 31.2 L Rhythm: EKG: ECHO: Stress Test: Cardiac Cath: PCI: CT Surgery: Holter monitor: EPS: PPM: CXR: Chest CT Scan: Assessment/Plan Patient was seen and evaluated and discussed with Eliceo contreras APN. Agree with above. Patient does appear to have some degree of volume overload. It will be reasonable to continue IV Lasix today and switch to p.o. tomorrow. Patient will likely need ischemic evaluation in the form of a stress test or cardiac catheterization. This could potentially be done as an outpatient unless patient's situation changes.
[2019-10-23] MEDS: Acetaminophen 325 MG Tablet 650 MG PO ×2 (14:07→23:19)
[2019-10-24] VITALS (13 sets, daily range): BP systolic 94–123; BP diastolic 48–76; PULSE 79–98; RESP 18–22; TEMP 36.6–36.8; O2SAT 94–98
[2019-10-24] MEDS: Furosemide 40 MG/4 ML Vial IV (05:10)
[2019-10-24] MEDS: Heparin Injection (Vial) 5,000 UNIT/ML VIAL 5000 UNIT SC ×3 (05:10→22:08)
[2019-10-24] MEDS: Acetaminophen 325 MG Tablet 650 MG PO ×3 (05:20→18:43)
[2019-10-24] MEDS: Ipratropium/Albuterol Sulfate 3 ML AMPUL.NEB INHALATION ×3 (06:55→20:07)
[2019-10-24] MEDS: Losartan Potassium 25 MG Tablet PO (09:21)
--- NOTE | 2019-10-24 11:27 | CASEMGMT ---
This RN HARVEY spoke with pt's in the hallway regarding discharge plan at this time and states, 'Well, we just don't know yet.' Advised that there is a chance that pt could be discharged today, voices understanding. Pt is back to baseline home oxygen at this time. CM to check back later. [place] FLORINDA GABRIEL
--- NOTE | 2019-10-24 11:59 | PN_ITS ---
Patient Problems: Active and Suspected Problems (Last Reviewed 10/20/19 @ 13:39 by Nya Reveles) Hypoxia (Acute) Respiratory failure (Acute) Subjective: Patient did well overnight. No acute issues were reported. Patient reports feeling anxious this morning, but dyspnea is improved compared to previous. Patient denies any current chest pain. Patient does report getting up with therapy yesterday - Physical Exam Vitals/I&O's: Vital Signs Temp Pulse Resp BP Pulse Ox 36.7 C 94 20 H 94/48 L 95 10/24/19 11:40 10/24/19 11:40 10/24/19 11:40 10/24/19 11:40 10/24/19 11:40 Oxygen Flow Rate (L/min) 5 Oxygen Delivery Method Nasal Cannula Weight: 58 kg Body Mass Index (BMI) 20.7 Intake and Output for Last 24 Hours 10/22/19 10/23/19 10/24/19 23:59 23:59 23:59 Intake Total 0 / 0 830 / 830 240 / 240 Output Total 900 / 900 2100 / 2100 575 / 575 Balance -900 / -900 -1270 / -1270 -335 / -335 General: Alert, Oriented x3, Cooperative, No apparent distress, Well developed, Well nourished, - - Mild conversational dyspnea. HEENT: Atraumatic, PERRLA, EOMI, Normocephalic, - - No scleral icterus or injection noted Oral: Moist Mucosa, No Gingival or Mucosal Lesions/ Ulcerations Neck: Supple, No JVD, No Nodes, Trachea Midline Lungs: No rhonchi, No wheeze, No rales, Diminished Cardiovascular: Normal S1, Normal S2, Murmur, No rub noted, No Gallop Abdomen: Bowel Sounds Present, Soft, Non Tender, Non-Distended Extremities: No cyanosis, Clubbing Skin: No rashes, No breakdown Musculoskeletal: No Tenderness to Palpation of Joints or Extremities Lymphatic: No Cervical, Supraclavicular, or Inguinal Adenopathy Neurological: Cranial nerves II-XII grossly intact, Neuro grossly intact, Motor Exam 5/5 strength throughout Psych/Mental Status: Alert and oriented to time, place, person, mood and affect Microbiology Past 72 Hours 10/22/19 11:30 Mucosa - Nasopharyngeal Respiratory Panel (PCR) - Final Current Medications Acetaminophen (Tylenol) 650 mg PO Q6H PRN PRN PRN Reason: Pain Score 1-10/Temp > 100.7 F Last Admin: 10/24/19 05:20 Dose: 650 mg Documented by: Albuterol/Ipratropium (Duoneb) 3 ml INHALATION Q4HWA.RT [facility] Last Admin: 10/24/19 11:30 Dose: Not Given Documented by: Budesonide (Pulmicort Aerosol) 0.5 mg INHALATION BID.RT [facility] Last Admin: 10/23/19 19:30 Dose: 0.5 mg Documented by: Furosemide (Lasix) 40 mg IV Q8 [facility] Last Admin: 10/24/19 05:10 Dose: 40 mg Documented by: Glucagon () 1 mg IM .X1 PRN PRN Reason: Hypoglycemia Heparin Sodium (Porcine) (Heparin Na) 5,000 unit SC Q8 [facility] Last Admin: 10/24/19 05:10 Dose: 5,000 unit Documented by: Dextrose (Dextrose 10%-Water) 250 mls @ 999 mls/hr IV .Q16M PRN; Protocol PRN Reason: HYPOGLYCEMIA Sodium Chloride () 250 mls @ 15 mls/hr IV .[id number] PRN PRN Reason: Saline Flush Sodium Chloride () 250 mls @ 15 mls/hr IV .[id number] PRN PRN Reason: Additional IVPB Infusion Losartan Potassium (Cozaar) 25 mg PO DAILY [facility] Last Admin: 10/24/19 09:21 Dose: 25 mg Documented by: Nitroglycerin (Nitrostat) 0.4 mg SUBLINGUAL Q5M PRN PRN Reason: CARDIAC/CHEST PAIN Nutritional Formula (Lactose Free) (Glucerna Shake) 120 ml PO 4X/DAY [facility] Last Admin: 10/24/19 09:21 Dose: Not Given Documented by: Ondansetron HCl (Zofran) 4 mg IV Q8H PRN PRN PRN Reason: NAUSEA/VOMITING Potassium Chloride (K-Dur) 10 meq PO DAILY [facility] Last Admin: 10/24/19 09:21 Dose: 10 meq Documented by: Senna/Docusate Sodium (Senokot-S, Angeli-Colace) 2 tablet PO DAILY PRN PRN PRN Reason: CONSTIPATION Sodium Chloride () 10 - 40 ml IV UD PRN PRN Reason: SALINE FLUSH Last Admin: 10/23/19 21:26 Dose: 10 ml Documented by: Medical Necessity - Tobacco Use Smoking Status: Former smoker Assessment/Plan All Active Problems (Last Reviewed 10/20/19 @ 13:39 by Nya Reveles) Hypoxia (Acute) Respiratory failure (Acute) Anxiety (Acute) History of appendectomy (Resolved) Hx of cataract surgery (Resolved) COPD exacerbation (Acute) History of permanent cardiac pacemaker placement (Resolved) RECOMMENDATIONS: 1. BiPAP only with sleep at night 2. No antibiotics or steroids indicated from my perspective 3. Agree with bronchodilators, diuretic and Pulmicort for therapeutic substitution of home medications 4. Wean oxygen as tolerated 5. Walking oximetry prior to discharge 6. Okay to discharge from my perspective with routine follow-up as previously planned IMPRESSIONS: 1. Acute on chronic combined respiratory failure Patient with persistent infiltrate on chest x-ray and lower extremity edema. Patient is not reporting any change in cough at this time. Patient did have significant leukocytosis at presentation, but this has completely resolved after acute stress response. Clinical suspicion for an element of acute on chronic diastolic congestive heart failure complicating overall pulmonary condition. Patient and are very clear that symptoms started abruptly at 2 AM on the day of presentation with tachycardia. Patient benefiting from continued diuresis. BiPAP can likely be reserved for nocturnal use only. Patient with significant improvement in respiratory status despite marginal negative fluid balance 2. 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 There has been no evidence of cancer recurrence according to the patient's pulmonary provider at [facility]. 3. 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 Patient appears to be responding to positive pressure, but will likely decompensate with taking a break if diuretics are not used. Await response to diuretic therapy. Patient also has pulmonary hypertension, likely type II, that will complicate overall condition. 5. Pulmonary hypertension/hypertension/hyperlipidemia/advanced age/CODE STATUS Complicates care, management, recovery and prognosis. Physical therapy to work with patient as tolerated. Goals of care/CODE STATUS was discussed with the patient and he wishes to remain full code. Patient feels I have always improved in the past. Inpatient E&M: 36652 Subs Hosp L2
--- NOTE | 2019-10-24 12:34 | PCM.PN.CARD ---
Subjectve: Shortness of breath is better. Objective: Vital Signs Temp Pulse Resp BP Pulse Ox 98.1 F 94 20 H 94/48 L 95 10/24/19 11:40 10/24/19 11:40 10/24/19 11:40 10/24/19 11:40 10/24/19 11:40 Oxygen Flow Rate (L/min) 5 Oxygen Delivery Method Nasal Cannula Weight: 127 lb 13.89 oz Body Mass Index (BMI) 20.7 Intake and Output for Last 24 Hours 10/22/19 10/23/19 10/24/19 23:59 23:59 23:59 Intake Total 0 / 0 830 / 830 720 / 720 Output Total 900 / 900 2100 / 2100 1075 / 1075 Balance -900 / -900 -1270 / -1270 -355 / -355 General: Awake, Alert, Oriented x 3 HEENT: Atraumatic Oral: Moist Mucosa Neck: Supple Lungs: Clear to auscultation Cardiovascular: Regular Rhythm Extremities: No edema Skin: No Rashes Rhythm: EKG: ECHO: Stress Test: Cardiac Cath: PCI: CT Surgery: Holter monitor: EPS: PPM: CXR: Chest CT Scan: Medical Necessity - Tobacco Use Smoking Status: Former smoker Assessment/Plan 1. Shortness of breath: Appears to be due to combination of COPD+/-diastolic heart failure. Patient seems much better today. Okay to switch from IV Lasix to Lasix 40 mg p.o. twice daily. Patient can get a BMP in 3 to 4 days as an outpatient and can see us in 1 to 2 weeks. He follows with Dr. Alan. If we can be of any further assistance please let us know. We will sign off at this time. Thank you very much for letting us participate in the care of this patient.
--- NOTE | 2019-10-24 12:36 | CASEMGMT ---
Patient is requesting to go to [facility]. DOROTEO spoke with Shannon in TCU and she will have a bed for patient. SW notified patient and his . Green sheet on chart. Plan: d/c to [facility] under skilled level of care Kathrine BARRIGA
[2019-10-24 13:31] LABS: Anion Gap 3 (5-15); BUN 19 mg/dL (7-18); BUN/Creat Ratio 24.4 RATIO (10-20); Chloride 93 mmol/L (98-107); Creatinine, Serum 0.78 mg/dL (0.70-1.30); EST Glomerular Filtration Rate 101 mL/min (>60); Est Glom Filt Rate - Afr Amer 122 mL/min (>60); Estimated Creatinine Clearance 45.92 ml/min; Glucose 123 mg/dL (74-106); Magnesium 1.9 mg/dL (1.6-2.6); Potassium 3.6 mmol/L (3.5-5.1); Sodium Level 137 mmol/L (136-145)
[2019-10-24] MEDS: Glucerna Shake 120 ML LIQUID PO ×2 (15:02→22:09)
--- NOTE | 2019-10-24 15:38 | PCM.PN.HOSP ---
Patient Problems: Active and Suspected Problems (Last Reviewed 10/20/19 @ 13:39 by Nya Reveles) Hypoxia (Acute) Respiratory failure (Acute) Reason for Visit: Follow-up on acute respiratory failure secondary to acute on chronic diastolic CHF Subjective: Patient seen and examined. Objective: Physical exam: General: Alert, Oriented x3, Cooperative, No apparent distress HEENT: Atraumatic, PERRLA, EOMI, Normocephalic Neck: Supple, No JVD, Negative Carotid Bruits Lungs: Clear to auscultation, Normal air movement Cardiovascular: Regular rate, Regular Rhythm, Normal S1, Normal S2, No murmurs Abdomen: Bowel Sounds Present, Soft, Non Tender, Non-Distended, No Hepato-splenomegaly Extremities: Edema - bilateral pedal edema +1 Skin: No rashes Musculoskeletal: No Tenderness to Palpation of Joints or Extremities Neurological: Cranial nerves II-XII grossly intact, Neuro grossly intact Psych/Mental Status: Normal Affect, Appropriate Vitals/I&O's: Vital Signs Temp Pulse Resp BP Pulse Ox 98.1 F 85 22 H 94/48 L 97 10/24/19 11:40 10/24/19 14:00 10/24/19 14:00 10/24/19 11:40 10/24/19 14:00 Oxygen Flow Rate (L/min) 4.5 Oxygen Delivery Method Nasal Cannula Weight: 58 kg Body Mass Index (BMI) 20.7 Intake and Output for Last 24 Hours 10/22/19 10/23/19 10/24/19 23:59 23:59 23:59 Intake Total 0 / 0 830 / 830 720 / 720 Output Total 900 / 900 2100 / 2100 1075 / 1075 Balance -900 / -900 -1270 / -1270 -355 / -355 Microbiology Past 72 Hours 10/22/19 11:30 Mucosa - Nasopharyngeal Respiratory Panel (PCR) - Final Laboratory Results 10/24/19 12:45: Sodium 137, Potassium 3.6, Chloride 93 L, Carbon Dioxide 41.0 H, Anion Gap 3 L, BUN 19 H, Creatinine 0.78, Estim Creat Clear Calc 45.92, Est GFR (MDRD) Af Amer 122, Est GFR (MDRD) Non-Af 101, BUN/Creatinine Ratio 24.4 H, Glucose 123 H, Calcium 9.0, Magnesium 1.9 Current Medications Acetaminophen (Tylenol) 650 mg PO Q6H PRN PRN PRN Reason: Pain Score 1-10/Temp > 100.7 F Last Admin: 10/24/19 12:39 Dose: 650 mg Documented by: Albuterol/Ipratropium (Duoneb) 3 ml INHALATION Q4HWA.RT [facility] Last Admin: 10/24/19 13:59 Dose: 3 ml Documented by: Budesonide (Pulmicort Aerosol) 0.5 mg INHALATION BID.RT [facility] Last Admin: 10/23/19 19:30 Dose: 0.5 mg Documented by: Furosemide (Lasix) 40 mg PO BID@1000,1800 [facility] Glucagon () 1 mg IM .X1 PRN PRN Reason: Hypoglycemia Heparin Sodium (Porcine) (Heparin Na) 5,000 unit SC Q8 [facility] Last Admin: 10/24/19 15:03 Dose: 5,000 unit Documented by: Dextrose (Dextrose 10%-Water) 250 mls @ 999 mls/hr IV .Q16M PRN; Protocol PRN Reason: HYPOGLYCEMIA Sodium Chloride () 250 mls @ 15 mls/hr IV .[id number] PRN PRN Reason: Saline Flush Sodium Chloride () 250 mls @ 15 mls/hr IV .[id number] PRN PRN Reason: Additional IVPB Infusion Losartan Potassium (Cozaar) 25 mg PO DAILY [facility] Last Admin: 10/24/19 09:21 Dose: 25 mg Documented by: Nitroglycerin (Nitrostat) 0.4 mg SUBLINGUAL Q5M PRN PRN Reason: CARDIAC/CHEST PAIN Nutritional Formula (Lactose Free) (Glucerna Shake) 120 ml PO 4X/DAY [facility] Last Admin: 10/24/19 15:02 Dose: 120 ml Documented by: Ondansetron HCl (Zofran) 4 mg IV Q8H PRN PRN PRN Reason: NAUSEA/VOMITING Potassium Chloride (K-Dur) 10 meq PO DAILY [facility] Last Admin: 10/24/19 09:21 Dose: 10 meq Documented by: Senna/Docusate Sodium (Senokot-S, Angeli-Colace) 2 tablet PO DAILY PRN PRN PRN Reason: CONSTIPATION Sodium Chloride () 10 - 40 ml IV UD PRN PRN Reason: SALINE FLUSH Last Admin: 10/23/19 21:26 Dose: 10 ml Documented by: STROKE Vital Signs/Narrative: Vital Signs Temp Pulse Resp BP Pulse Ox 10/24/19 14:00 85 22 H 97 10/24/19 11:40 98.1 F 94 20 H 94/48 L 95 Medical Necessity - Tobacco Use Smoking Status: Former smoker Assessment/Plan All Active Problems (Last Reviewed 10/20/19 @ 13:39 by Nya Reveles) Hypoxia (Acute) Respiratory failure (Acute) Anxiety (Acute) History of appendectomy (Resolved) Hx of cataract surgery (Resolved) COPD exacerbation (Acute) History of permanent cardiac pacemaker placement (Resolved) 84 year old M with multiple comorbidities including severe COPD on 4 L of oxygen, pulmonary hypertension, moderate aortic valve stenosis who was admitted with shortness and managed as below: 1. Acute respiratory failure secondary to acute on chronic diastolic CHF, improved, almost at baseline On 4-5L oxygen at home Continue to encourage use of incentive spirometer 2. Acute on chronic diastolic CHF, EF 55%, stage I diastolic dysfunction/severe pulmonary hypertension/moderate aortic valve stenosis Will continue on Lasix 40mg po daily, strict I's and O's, CHF protocol 3. Hypomagnesemia, Mg 1.9, will replace, recheck in am 4. History of non-small cell lung CA, COPD Continue on scheduled breathing treatments, BiPAP 5. Status post pacemaker for Mobitz type II 6. Hypertension, controlled, controlled losartan 7. Hyponatremia, likely hypervolemic, resolving 8. DVT prophylaxis -heparin subcu Inpatient E&M: 48220 Subs Hosp L2
[2019-10-24] MEDS: 0.9% Saline Lock 10 ML Syringe IV (17:02)
[2019-10-24] MEDS: Furosemide 40 MG Tablet PO (18:11)
[2019-10-25 03:00] VITALS: PULSE 92
[2019-10-25 04:00] VITALS: BP 103/51; PULSE 81; RESP 16; TEMP 36.6; O2SAT 96
[2019-10-25] MEDS: Acetaminophen 325 MG Tablet 650 MG PO (04:04)
[2019-10-25] MEDS: Heparin Injection (Vial) 5,000 UNIT/ML VIAL 5000 UNIT SC (05:35)
[2019-10-25 07:14] VITALS: PULSE 86; RESP 24; O2SAT 95
[2019-10-25] MEDS: Budesonide Respules 0.5 MG/2 ML AMPUL.NEB. INHALATION (07:14)
[2019-10-25] MEDS: Ipratropium/Albuterol Sulfate 3 ML AMPUL.NEB INHALATION (07:14)
[2019-10-25 07:19] VITALS: PULSE 88
--- NOTE | 2019-10-25 07:58 | NURSING ---
This RN taking over care at this time
--- NOTE | 2019-10-25 08:33 | PCM.TXEXTCAR ---
- Diet 10/23/19 12:02 Diet: Cardiac/Low Cholesterol Is pt able to select menu?: No - Routine Orders/Code Status O2 Liters per Minute: 5 O2 Frequency: Continuous Keep PO Greater than or Equal to (%): 92 Routine Lab Work: CBC - within 3 days, BMP - within 3 days Code Status: Full Code - Wound(s) L lateral calf Wound Type: Blister - Therapies Physical Therapy: Eval and Treat Occupational Therapy: Eval and Treat - Allergies/Procedures Done in Hospital Allergies/Adverse Reactions: Allergies ampicillin Allergy (Verified 10/22/19 05:39) Anaphylaxis azithromycin Allergy (Verified 10/22/19 05:39) Rash codeine Allergy (Verified 10/22/19 05:39) Rash penicillin G Allergy (Verified 10/22/19 05:39) Rash Sulfa (Sulfonamide Antibiotics) Allergy (Verified 10/22/19 05:39) Rash sulfamethoxazole [From Bactrim] Allergy (Verified 10/22/19 05:39) Rash trimethoprim [From Bactrim] Allergy (Verified 10/22/19 05:39) Rash - Type of Care/Length of Stay Estimated LOS: Convalescent Care Less Than 30 days Type of Care Needed: Skilled Rehab Potential: Fair Prognosis: Fair - Additional Orders/Day of Discharge Additional Orders: Daily weights, strict I & Os, encourage use of incentive spirometer Day of Discharge: 10/25/19 - Dietary and Speech Recommendations Dietitian Recommendations/Changes: Will provide Cardiac diet d/t pt pmhx. - Follow Up Care Primary Care Physician: Misael Valencia MD [Primary Care Provider] - Please follow up with your Primary Care Physician in: within 1-2 weeks Please Follow Up With: Jason Alan MD When: in 1-2 weeks
--- NOTE | 2019-10-25 08:36 | PCM.DC.SUM ---
Discharge Date and Diagnosis - Problem List Patient Problems: Active and Suspected Problems (Last Reviewed 10/20/19 @ 13:39 by Nya Reveles) Debility (Acute) Shortness of breath (Acute) Hyponatremia (Acute) Elevated troponin (Acute) Acute on chronic diastolic (congestive) heart failure (Acute) Date of Admission: 10/22/19 Date of Discharge: 10/25/19 - Primary Discharge Diagnosis Active and Suspected Problems (Last Reviewed 10/20/19 @ 13:39 by Nya Reveles) Acute hypoxic respiratory failure secondary to acute on chronic diastolic CHF Acute on chronic diastolic CHF Hypomagnesemia - Secondary Discharge Diagnosis Chronic Problems (Last Reviewed 10/20/19 @ 13:39 by Nya Reveles) COPD with exacerbation (Chronic) Colon polyps (Chronic) 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) Acute and chronic respiratory failure (Chronic) Stage 3 severe COPD by GOLD classification (Chronic) FEV1 44% of predicted on PFT 12/15/2016 at [facility] Diastolic dysfunction (Chronic) 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) Essential hypertension (Chronic) Paroxysmal atrial flutter (Chronic) Non-rheumatic tricuspid valve insufficiency (Chronic) Aortic valve stenosis, nonrheumatic (Chronic) 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 No significant change. Bilateral lower lobe chronic appearing infiltrates, larger on the right. Small right pleural effusion. 2. Background chronic emphysema. at 0638 Reported and signed by: Shailesh Olivares MD Electronically Signed: Shailesh Olivares, at 6:37 EDT Tel , Service support , Critical care Operations: None Procedures: None Summary of Care Provided: The patient is a 84 year old M with medical history of COPD, pulmonary hypertension, chronic combined respiratory failure, on 4 L of oxygen who was admitted with acute on chronic diastolic CHF. Patient was admitted with sudden onset of progressive shortness of breath. He was seen in his cardiology office 1 to 2 weeks prior and his diuretics were increased. Patient was managed on IV Lasix. He was hypoxic and did require the use of BiPAP. He was managed in ICU. He continued to improve with IV therapy and was transferred to progressive care unit. Patient continued to improve and was almost back to his baseline. He was hypomagnesemic and that was replaced. Patient was switched from IV Lasix to oral Lasix. He was seen by PT OT and qualified for subacute therapy/rehab. In the hospital stay, his troponins were elevated and he was seen by cardiology. Outpatient stress test were recommended. Patient to be seen by cardiology in 2 weeks. Patient Problems: Active and Suspected Problems (Last Reviewed 10/20/19 @ 13:39 by Nya Reveles) Debility (Acute) Shortness of breath (Acute) Hyponatremia (Acute) Elevated troponin (Acute) Acute on chronic diastolic (congestive) heart failure (Acute) Subjective: On the day of discharge, patient complains of some left-sided lower rib pain, secondary to poor posture in bed. He received a dose of tramadol with a heating pad over the region. He denied any dizziness or palpitations or shortness of breath. Objective: Physical exam: General: Alert, Oriented x3, Cooperative, No apparent distress HEENT: Atraumatic, PERRLA, EOMI, Normocephalic Neck: Supple, No JVD, Negative Carotid Bruits Lungs: Clear to auscultation, Normal air movement Cardiovascular: Regular rate, Regular Rhythm, Normal S1, Normal S2, No murmurs Abdomen: Bowel Sounds Present, Soft, Non Tender, Non-Distended, No Hepato-splenomegaly Extremities: Edema - bilateral pedal edema +1 Skin: No rashes Musculoskeletal: No Tenderness to Palpation of Joints or Extremities Neurological: Cranial nerves II-XII grossly intact, Neuro grossly intact Psych/Mental Status: Normal Affect, Appropriate - Physical Exam Vitals/I&O's: Vital Signs Temp Pulse Resp BP Pulse Ox 97.8 F 88 24 H 103/51 L 95 10/25/19 04:00 10/25/19 07:19 10/25/19 07:14 10/25/19 04:00 10/25/19 07:14 Oxygen Flow Rate (L/min) 4.5 Oxygen Delivery Method Nasal Cannula Weight: 58.2 kg Body Mass Index (BMI) 20.7 Intake and Output for Last 24 Hours 10/23/19 10/24/19 10/25/19 23:59 23:59 23:59 Intake Total 830 / 830 1384 / 1384 60 / 60 Output Total 2100 / 2100 1825 / 1825 350 / 350 Balance -1270 / -1270 -441 / -441 -290 / -290 Microbiology Past 72 Hours 10/22/19 11:30 Mucosa - Nasopharyngeal Respiratory Panel (PCR) - Final Laboratory Results 10/24/19 12:45: Sodium 137, Potassium 3.6, Chloride 93 L, Carbon Dioxide 41.0 H, Anion Gap 3 L, BUN 19 H, Creatinine 0.78, Estim Creat Clear Calc 45.92, Est GFR (MDRD) Af Amer 122, Est GFR (MDRD) Non-Af 101, BUN/Creatinine Ratio 24.4 H, Glucose 123 H, Calcium 9.0, Magnesium 1.9 Current Medications Acetaminophen (Tylenol) 650 mg PO Q6H PRN PRN PRN Reason: Pain Score 1-10/Temp > 100.7 F Last Admin: 10/25/19 04:04 Dose: 650 mg Documented by: Albuterol/Ipratropium (Duoneb) 3 ml INHALATION Q4HWA.RT [facility] Last Admin: 10/25/19 07:14 Dose: 3 ml Documented by: Budesonide (Pulmicort Aerosol) 0.5 mg INHALATION BID.RT [facility] Last Admin: 10/25/19 07:14 Dose: 0.5 mg Documented by: Furosemide (Lasix) 40 mg PO BID@1000,1800 [facility] Last Admin: 10/24/19 18:11 Dose: 40 mg Documented by: Glucagon () 1 mg IM .X1 PRN PRN Reason: Hypoglycemia Heparin Sodium (Porcine) (Heparin Na) 5,000 unit SC Q8 [facility] Last Admin: 10/25/19 05:35 Dose: 5,000 unit Documented by: Dextrose (Dextrose 10%-Water) 250 mls @ 999 mls/hr IV .Q16M PRN; Protocol PRN Reason: HYPOGLYCEMIA Sodium Chloride () 250 mls @ 15 mls/hr IV .[id number] PRN PRN Reason: Saline Flush Sodium Chloride () 250 mls @ 15 mls/hr IV .[id number] PRN PRN Reason: Additional IVPB Infusion Losartan Potassium (Cozaar) 25 mg PO DAILY [facility] Last Admin: 10/24/19 09:21 Dose: 25 mg Documented by: Nitroglycerin (Nitrostat) 0.4 mg SUBLINGUAL Q5M PRN PRN Reason: CARDIAC/CHEST PAIN Nutritional Formula (Lactose Free) (Glucerna Shake) 120 ml PO 4X/DAY [facility] Last Admin: 10/24/19 22:09 Dose: 120 ml Documented by: Ondansetron HCl (Zofran) 4 mg IV Q8H PRN PRN PRN Reason: NAUSEA/VOMITING Potassium Chloride (K-Dur) 10 meq PO DAILY [facility] Last Admin: 10/24/19 09:21 Dose: 10 meq Documented by: Senna/Docusate Sodium (Senokot-S, Angeli-Colace) 2 tablet PO DAILY PRN PRN PRN Reason: CONSTIPATION Sodium Chloride () 10 - 40 ml IV UD PRN PRN Reason: SALINE FLUSH Last Admin: 10/24/19 17:02 Dose: 10 ml Documented by: Discharge Diet: Low fat/ Low Cholesterol, 6 Cup Fluid Restriction, 2000 mg Sodium Diet Discharge Activity: Return to Normal Activity Home Medications: Medications to take at Discharge Acetaminophen [Tylenol Tablet] 650 mg PO Q6H PRN PRN #0 tab 10/24/16 Losartan Potassium 25 mg PO DAILY #0 06/12/17 Albuterol Aerosols [Ventolin Aerosols] 2.5 mg INHALATION Q4H PRN PRN #90 vial.neb. 07/17/19 Ipratropium/Albuterol Sulfate [Duoneb] 3 ml INHALATION Q8 08/13/19 Acetaminophen [Tylenol Tablet] 650 mg PO Q6H PRN PRN tab 10/25/19 Fluticasone/Umeclidin/Vilanter [Trelegy Ellipta 100-62.5-25] 1 inh INHALATION DAILY 10/25/19 Furosemide [Lasix] 40 mg PO BID@1000,1800 10/25/19 Glucerna Shake 120 ml PO 4X/DAY 10/25/19 Nitroglycerin (INPATIENT USE) [Nitrostat] 0.4 mg SUBLINGUAL Q5M PRN tab.subl 10/25/19 Potassium Chloride 10 meq PO DAILY 10/25/19 Senna/Docusate Sodium [Senokot-S] 2 tab PO DAILY PRN PRN tab 10/25/19 Primary Care Physician: Misael Valencia MD [Primary Care Provider] - Please follow up with your Primary Care Physician in: within 1-2 weeks Please Follow Up With: Jason Alan MD When: in 1-2 weeks [facility]position: [facility] facility Minutes spent on discharge:: 45 Patient Condition:: Stable Medical Necessity - Tobacco Use Smoking Status: Former smoker Tobacco Use: Non-smoker Meaningful Use Info Meaningful Use Diagnoses (Choose all that apply): CHF - CHF SNEHA/ARB ordered at discharge?: Yes Documented LVEF (%): 55 Inpatient E&M: 47804 Disch Hosp
--- NOTE | 2019-10-25 08:38 | PCM.PN.PUL ---
Patient Problems: Active and Suspected Problems (Last Reviewed 10/20/19 @ 13:39 by Nya Reveles) Hypoxia (Acute) Respiratory failure (Acute) Subjective: Patient did well overnight. Patient reports last bowel movement 2 days ago. Patient is reporting some rib pain that he associates with the poor bed. Patient denies any cough or wheezing. - Physical Exam Vitals/I&O's: Vital Signs Temp Pulse Resp BP Pulse Ox 36.6 C 88 24 H 103/51 L 95 10/25/19 04:00 10/25/19 07:19 10/25/19 07:14 10/25/19 04:00 10/25/19 07:14 Oxygen Flow Rate (L/min) 4.5 Oxygen Delivery Method Nasal Cannula Weight: 58.2 kg Body Mass Index (BMI) 20.7 Intake and Output for Last 24 Hours 10/23/19 10/24/19 10/25/19 23:59 23:59 23:59 Intake Total 830 / 830 1384 / 1384 60 / 60 Output Total 2100 / 2100 1825 / 1825 350 / 350 Balance -1270 / -1270 -441 / -441 -290 / -290 General: Alert, Oriented x3, Cooperative, No apparent distress, - - Appears older than stated age. No conversational dyspnea. Nasal cannula in place. HEENT: Atraumatic, PERRLA, EOMI, Normocephalic, - - No scleral icterus or injection noted Oral: Moist Mucosa, No Gingival or Mucosal Lesions/ Ulcerations Neck: Supple, No Nodes, Trachea Midline, JVD, Right Lungs: No rhonchi, No wheeze, No rales, Diminished, - - Symmetric expansion. Cardiovascular: Normal S1, Normal S2, Irregular Rate, Murmur, No rub noted, No Gallop Abdomen: Bowel Sounds Present, Soft, Non Tender, Non-Distended Extremities: No clubbing, No cyanosis Skin: - - No change from previous Musculoskeletal: No Tenderness to Palpation of Joints or Extremities Lymphatic: No Cervical, Supraclavicular, or Inguinal Adenopathy Neurological: Cranial nerves II-XII grossly intact, Neuro grossly intact, Motor Exam 5/5 strength throughout Psych/Mental Status: Alert and oriented to time, place, person, mood and affect Microbiology Past 72 Hours 10/22/19 11:30 Mucosa - Nasopharyngeal Respiratory Panel (PCR) - Final Laboratory Results 10/24/19 12:45: Sodium 137, Potassium 3.6, Chloride 93 L, Carbon Dioxide 41.0 H, Anion Gap 3 L, BUN 19 H, Creatinine 0.78, Estim Creat Clear Calc 45.92, Est GFR (MDRD) Af Amer 122, Est GFR (MDRD) Non-Af 101, BUN/Creatinine Ratio 24.4 H, Glucose 123 H, Calcium 9.0, Magnesium 1.9 Current Medications Acetaminophen (Tylenol) 650 mg PO Q6H PRN PRN PRN Reason: Pain Score 1-10/Temp > 100.7 F Last Admin: 10/25/19 04:04 Dose: 650 mg Documented by: Albuterol/Ipratropium (Duoneb) 3 ml INHALATION Q4HWA.RT [facility] Last Admin: 10/25/19 07:14 Dose: 3 ml Documented by: Budesonide (Pulmicort Aerosol) 0.5 mg INHALATION BID.RT [facility] Last Admin: 10/25/19 07:14 Dose: 0.5 mg Documented by: Furosemide (Lasix) 40 mg PO BID@1000,1800 [facility] Last Admin: 10/24/19 18:11 Dose: 40 mg Documented by: Glucagon () 1 mg IM .X1 PRN PRN Reason: Hypoglycemia Heparin Sodium (Porcine) (Heparin Na) 5,000 unit SC Q8 [facility] Last Admin: 10/25/19 05:35 Dose: 5,000 unit Documented by: Dextrose (Dextrose 10%-Water) 250 mls @ 999 mls/hr IV .Q16M PRN; Protocol PRN Reason: HYPOGLYCEMIA Sodium Chloride () 250 mls @ 15 mls/hr IV .[id number] PRN PRN Reason: Saline Flush Sodium Chloride () 250 mls @ 15 mls/hr IV .[id number] PRN PRN Reason: Additional IVPB Infusion Losartan Potassium (Cozaar) 25 mg PO DAILY [facility] Last Admin: 10/24/19 09:21 Dose: 25 mg Documented by: Nitroglycerin (Nitrostat) 0.4 mg SUBLINGUAL Q5M PRN PRN Reason: CARDIAC/CHEST PAIN Nutritional Formula (Lactose Free) (Glucerna Shake) 120 ml PO 4X/DAY [facility] Last Admin: 10/24/19 22:09 Dose: 120 ml Documented by: Ondansetron HCl (Zofran) 4 mg IV Q8H PRN PRN PRN Reason: NAUSEA/VOMITING Potassium Chloride (K-Dur) 10 meq PO DAILY WEI Last Admin: 10/24/19 09:21 Dose: 10 meq Documented by: Senna/Docusate Sodium (Senokot-S, Angeli-Colace) 2 tablet PO DAILY PRN PRN PRN Reason: CONSTIPATION Sodium Chloride () 10 - 40 ml IV UD PRN PRN Reason: SALINE FLUSH Last Admin: 10/24/19 17:02 Dose: 10 ml Documented by: Medical Necessity - Tobacco Use Smoking Status: Former smoker Assessment/Plan All Active Problems (Last Reviewed 10/20/19 @ 13:39 by Nya Reveles) Hypoxia (Acute) Respiratory failure (Acute) Anxiety (Acute) History of appendectomy (Resolved) Hx of cataract surgery (Resolved) COPD exacerbation (Acute) History of permanent cardiac pacemaker placement (Resolved) RECOMMENDATIONS: 1. BiPAP only with sleep at night 2. No antibiotics or steroids indicated from my perspective 3. Agree with bronchodilators, diuretic and Pulmicort for therapeutic substitution of home medications 4. Wean oxygen as tolerated 5. Walking oximetry [facility] 6. Okay to discharge from my perspective with routine follow-up as previously planned IMPRESSIONS: 1. Acute on chronic combined respiratory failure Patient with persistent infiltrate on chest x-ray and lower extremity edema. Patient is not reporting any change in cough at this time. Patient did have significant leukocytosis at presentation, but this has completely resolved after acute stress response. Clinical suspicion for an element of acute on chronic diastolic congestive heart failure complicating overall pulmonary condition. Patient has responded well to diuretic therapy. No indication for change in maintenance therapy for his COPD from my perspective 2. 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 There has been no evidence of cancer recurrence according to the patient's pulmonary provider at [facility]. 3. 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 Patient appears to be responding to positive pressure, but will likely decompensate with taking a break if diuretics are not used. Await response to diuretic therapy. Patient also has pulmonary hypertension, likely type II, that will complicate overall condition. 5. Pulmonary hypertension/hypertension/hyperlipidemia/advanced age/CODE STATUS Complicates care, management, recovery and prognosis. Physical therapy to work with patient as tolerated. Goals of care/CODE STATUS was discussed with the patient and he wishes to remain full code. Patient feels I have always improved in the past. Inpatient E&M: [id number] Subs Hosp L2
[2019-10-25 09:31] VITALS: BP 101/45; PULSE 87; RESP 18; TEMP 36.9; O2SAT 94
[2019-10-25] MEDS: traMADol 50 MG Tablet PO (09:33)
[2019-10-25] MEDS: Glucerna Shake 120 ML LIQUID PO (09:34)
[2019-10-25] MEDS: Losartan Potassium 25 MG Tablet PO (09:34)
[2019-10-25] MEDS: Furosemide 40 MG Tablet PO (09:34)
--- NOTE | 2019-10-25 09:47 | NURSING ---
Called report to Deb NEELY on TCU
[2019-10-25] MEDS: Senna/Docusate Sodium 1 Tablet 2 TABLET PO (09:49)
== END 2019-10-25 10:05 | disposition skilled nursing facility (03) | DRG 291 ==
LOC: ED 06:48 → ICU 07:30 → PCU 10-24 08:29
PROVIDERS: Internal Medicine Critical Care Medicine; Admitting Provider Internal Medicine; Emergency Provider Emergency Medicine; PCP Internal Medicine; Visit Provider Internal Medicine
DX: I11.0 Hypertensive heart disease with heart failure (principal); J96.21 Acute and chronic respiratory failure with hypoxia; E87.1 Hypo-osmolality and hyponatremia; J44.1 Chronic obstructive pulmonary disease with (acute) exacerbation; I50.33 Acute on chronic diastolic (congestive) heart failure; I44.1 Atrioventricular block, second degree; E83.42 Hypomagnesemia; Z99.81 Dependence on supplemental oxygen; I27.20 Pulmonary hypertension, unspecified; K21.9 Gastro-esophageal reflux disease without esophagitis; I36.1 Nonrheumatic tricuspid (valve) insufficiency; I35.0 Nonrheumatic aortic (valve) stenosis; Z95.0 Presence of cardiac pacemaker; Z87.891 Personal history of nicotine dependence; Z85.118 Personal history of other malignant neoplasm of bronchus and lung
CPT/HCPCS: 36415; 36600; 71045; 80048; 80053; 82803; 82962; 83735; 84484; 85014; 85018; 85025; 87633; 93005; 94002; 94003; 94640; 97110; 97162; 97166; 97530; 97535; 99251; 99285; A4216; G0463; J1940

== ENCOUNTER 2019-10-25 10:13 | Inpatient (IN) | payer MEDICARE, OTHER, SELFPAY ==
[2019-10-22 08:53] VITALS: BMI 20.7
[2019-10-25 10:29] VITALS: BP 120/56; PULSE 76; RESP 18; TEMP 36.8; O2SAT 99
[2019-10-25 10:31] VITALS: BMI 20.2
[2019-10-25 10:37] VITALS: BMI 20.2
--- NOTE | 2019-10-25 12:33 | NURSING ---
Pt admit to TCU Rm 05 @ 10:40 via bed from PCU, Assessment and vitals complete, call light in reach
--- NOTE | 2019-10-25 13:55 | HP.PCM_ITS ---
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 The patient is a 84 year old Male with below past medical history presented to [facility] Emergency Department 10/22/2019 with shortness of breath. 10/22/2019 Chest X-ray showed chronic bilateral lower lobe infiltrates, right worse than left, small right pleural effusion, underlying chronic obstructive pulmonary disease. History of hypoxic respiratory failure secondary to COPD. shortness of breath, wheezing for few hours. CPAP applied by EMS, Pulsox 70% on 5 Liters oxygen nasal cannula. Duoneb, Albuterol given en route, feeling better. EKG showed paced rate at 119. BiPAP, albuterol, Solu-Medrol IV given. WBC 18,000. Low suspicion for pneumonia, Troponin 0.1. Mild low sodium. 10/22/2019 Admit to Hospital. Lasix, Metolazone increased recently. BiPAP, wean oxygen for acute respiratory failure. IV Lasix for acute on chronic diastolic congestive heart failure. Trend sodium for hyponatremia. 10/22/2019 Dr. Powers recommended diuresis for heart failure. BiPAP breaks. 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 10/23/2019 Lasix 40MG IV Q8H for acute on chronic diastolic congestive heart failure. Encourage Incentive Spirometry. Respiratory status improved. 10/23/2019 Dr. Braun thought elevated troponin secondary to demand ischemia. Stress test as outpatient. Consider Lasix 40MG IV Q8H to Lasix 40MG PO BID. Consider rate limiting medications and/or oral anticoagulation if atrial flutter sustained. 10/24/2019 Dr. Powers recommended BiPAP only with sleep at night. No antibiotics, No steroids indicated. Continue bronchodilators, diuretics, pulmicort. Wean oxygen as tolerated. Walking pulsoximetry. 10/24/2019 Dr. Braun recommended IV Lasix to Lasix 40MG PO BID. 10/25/2019 Admit to TCU with debility, here for rehabilitation, strengthening, prior to discharge home with family. Past Medical History Past Medical History (Chronic Problems): Chronic Problems (Last Reviewed 10/20/19 @ 13:39 by Nya Reveles) COPD with exacerbation (Chronic) Sleep apnea (Chronic) Aortic stenosis (Chronic) Hypertension (Chronic) Atrial flutter (Chronic) Hypokalemia (Chronic) Allergic rhinitis (Chronic) Colon polyps (Chronic) 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) Acute and chronic respiratory failure (Chronic) Stage 3 severe COPD by GOLD classification (Chronic) FEV1 44% of predicted on PFT 12/15/2016 at [facility] Diastolic dysfunction (Chronic) 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) Essential hypertension (Chronic) Paroxysmal atrial flutter (Chronic) Non-rheumatic tricuspid valve insufficiency (Chronic) Aortic valve stenosis, nonrheumatic (Chronic) 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) Chronic respiratory failure (Chronic) COPD (chronic obstructive pulmonary disease) (Chronic) Conduction disorder of the heart (Chronic) Pulmonary hypertension (Chronic) GERD (gastroesophageal reflux disease) (Chronic) Bullous emphysema (Chronic) Medical History: Medical History (Last Reviewed 10/20/19 @ 13:39 by Nya Reveles) Colon polyps (Chronic) 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) I44.1 Anxiety (Acute) F41.9 Paroxysmal atrial flutter (Chronic) I48.92 Aortic valve stenosis, nonrheumatic (Chronic) I35.0 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) I44.1 Chronic respiratory failure (Chronic) J96.10 COPD (chronic obstructive pulmonary disease) (Chronic) J44.9 Conduction disorder of the heart (Chronic) I45.9 Pulmonary hypertension (Chronic) I27.20 GERD (gastroesophageal reflux disease) (Chronic) K21.9 Bullous emphysema (Chronic) J43.9 Lung cancer (Inactive) C34.90 Allergies ampicillin Allergy (Verified 10/22/19 05:39) Anaphylaxis azithromycin Allergy (Verified 10/22/19 05:39) Rash codeine Allergy (Verified 10/22/19 05:39) Rash penicillin G Allergy (Verified 10/22/19 05:39) Rash Sulfa (Sulfonamide Antibiotics) Allergy (Verified 10/22/19 05:39) Rash sulfamethoxazole [From Bactrim] Allergy (Verified 10/22/19 05:39) Rash trimethoprim [From Bactrim] Allergy (Verified 10/22/19 05:39) Rash Home Medications: Ambulatory Orders Medication Instructions Recorded Acetaminophen [Tylenol Tablet] 650 mg PO Q6H PRN PRN #0 tab 10/24/16 Losartan Potassium 25 mg PO DAILY #0 06/12/17 Albuterol Aerosols [Ventolin 2.5 mg INHALATION Q4H PRN PRN #90 07/17/19 Aerosols] vial.neb. Ipratropium/Albuterol Sulfate 3 ml INHALATION Q8 08/13/19 [Duoneb] Acetaminophen [Tylenol Tablet] 650 mg PO Q6H PRN PRN tab 10/25/19 Fluticasone/Umeclidin/Vilanter 1 inh INHALATION DAILY 10/25/19 [Trelegy Ellipta 100-62.5-25] Furosemide [Lasix] 40 mg PO BID@1000,1800 10/25/19 Glucerna Shake 120 ml PO 4X/DAY 10/25/19 Nitroglycerin (INPATIENT USE) 0.4 mg SUBLINGUAL Q5M PRN tab.subl 10/25/19 [Nitrostat] Potassium Chloride 10 meq PO DAILY 10/25/19 Senna/Docusate Sodium [Senokot-S] 2 tab PO DAILY PRN PRN tab 10/25/19 Surgical History: Surgical History (Last Reviewed 10/20/19 @ 13:39 by Nya Reveles) History of appendectomy (Resolved) Z98.890, Z90.49 Hx of cataract surgery (Resolved) Z98.49 History of permanent cardiac pacemaker placement (Resolved) Z95.0 06/11/17 Surgical History: appendectomy, cataract, pacemaker implantation Psychiatric History: Anxiety, Depression Lives: With Family Smoking Status: Former smoker Tobacco Use: Cigarettes Alcohol: None Drugs: None - *Family History Paternal Family History: Family History (Last Reviewed 10/20/19 @ 13:39 by Nya Reveles) Brother Diabetes Sister Diabetes Lung cancer History Items: Heart Disease - Father with history of heart disease, at age 96. Offspring Family History: Family History (Last Reviewed 10/20/19 @ 13:39 by Nya Reveles) Brother Diabetes Sister Diabetes Lung cancer History Items: COPD Sibling Family History: Family History (Last Reviewed 10/20/19 @ 13:39 by Nya Reveles) Brother Diabetes Sister Diabetes Lung cancer History Items: COPD, Diabetes, Heart Disease Maternal Family History: Family History (Last Reviewed 10/20/19 @ 13:39 by Nya Reveles) Brother Diabetes Sister Diabetes Lung cancer History Items: Heart Disease, - - osteoporosis Review of Systems Constitutional: Denies: Chills, Fever, Weight Change HEENT: Denies: Head Aches, Sinus Congestion, Sinus Drainage Cardiovascular: Denies: Chest Pain, Palpitations Respiratory: Denies: Cough, Shortness of breath at rest, Sputum production Gastrointestinal: Denies: Abdominal Pain, Nausea, Vomiting Genitourinary: Denies: Dysuria Musculoskeletal: Denies: Joint Pain, Joint Tenderness Skin: Denies: Rash, Wounds Neurological: Denies: Numbness, Tingling, Focal weakness Psychiatric: Denies: Anxiety, Depression, Homicidal Ideations, Suicidal Ideations Hematologic/ Lymphatic: Denies: Easy Bruising, Easy Bleeding VTE Information - Inpt Only VTE Present on Admission: No VTE Mechan Device Prophylaxis: Knee High ESTEBAN Hose VTE Pharm Prophylaxis ordered?: Yes Patient Problems: Active and Suspected Problems (Last Reviewed 10/20/19 @ 13:39 by Nya Reveles) Debility (Acute) Shortness of breath (Acute) Hyponatremia (Acute) Elevated troponin (Acute) Acute on chronic diastolic (congestive) heart failure (Acute) - Physical Exam Vitals/I&O's: Vital Signs Temp Pulse Resp BP Pulse Ox 98.3 F 76 18 120/56 L 99 10/25/19 10:29 10/25/19 10:29 10/25/19 10:29 10/25/19 10:29 10/25/19 10:29 Oxygen Flow Rate (L/min) 4.5 Oxygen Delivery Method Nasal Cannula Weight: 58.525 kg Body Mass Index (BMI) 20.2 Intake and Output for Last 24 Hours 10/23/19 10/24/19 10/25/19 23:59 23:59 23:59 Intake Total 120 / 120 Balance 120 / 120 General: Alert, Oriented x3, Cooperative HEENT: Atraumatic, PERRLA, EOMI, Normocephalic Neck: Supple, No JVD, Negative Carotid Bruits Lungs: Clear to auscultation, Normal air movement Cardiovascular: Regular rate, No murmurs Abdomen: Bowel Sounds Present, Soft, Non Tender Extremities: No edema, Capillary Refill Less than 3 Seconds Skin: No rashes, No breakdown Musculoskeletal: No Tenderness to Palpation of Joints or Extremities Neurological: Cranial nerves II-XII grossly intact Psych/Mental Status: Normal Affect, Appropriate Current Medications Acetaminophen (Tylenol) 650 mg PO Q6H PRN PRN PRN Reason: PAIN 1-10 /T>100.7 Albuterol Sulfate (Ventolin Aerosols) 2.5 mg INHALATION Q4H PRN PRN PRN Reason: dyspnea, wheezing Albuterol/Ipratropium (Duoneb) 3 ml INHALATION Q8 WEI Furosemide (Lasix) 40 mg PO BID@1000,1800 WEI Losartan Potassium (Cozaar) 25 mg PO DAILY WEI Nitroglycerin (Nitrostat) 0.4 mg SUBLINGUAL Q5M PRN PRN Reason: CARDIAC/CHEST PAIN Nutritional Formula (Lactose Free) (Glucerna Shake) 120 ml PO 4X/DAY WEI Potassium Chloride (K-Dur) 10 meq PO DAILYCM WEI Fluticasone/Salmeterol (Fluticasone-Salmeterol 232-14) 1 puff IH Q12 WEI Senna/Docusate Sodium (Senokot-S, Angeli-Colace) 2 tablet PO DAILY PRN PRN PRN Reason: CONSTIPATION Tuberculin PPD (Tubersol, Aplisol, Ppd) 5 tu ID X1 ONE Stop: 10/26/19 10:01 Tuberculin PPD (Tubersol, Aplisol, Ppd) 5 tu ID X1 ONE Stop: 11/02/19 10:01 Umeclidinium [place] (Incruse Ellipta Inhaler) 1 puff IH DAILY WEI Assessment/Plan All Active Problems (Last Reviewed 10/20/19 @ 13:39 by Nya Reveles) Hypoxia (Acute) Respiratory failure (Acute) Debility (Acute) Shortness of breath (Acute) Hyponatremia (Acute) Elevated troponin (Acute) Acute on chronic diastolic (congestive) heart failure (Acute) Anxiety (Acute) History of appendectomy (Resolved) Hx of cataract surgery (Resolved) COPD exacerbation (Acute) History of permanent cardiac pacemaker placement (Resolved) 84 year old male with below past medical history hospitalized for acute on chronic respiratory failure secondary to acute on chronic diastolic congestive heart failure, complicated by COPD, Hyponatremia, elevated troponin secondary to demand ischemia, admitted to TCU with debility, here for rehabilitation, strengthening, prior to discharge home with family. * Debility - PT/OT. * Pain - Tylenol 1000MG Q6H PRN pain (1-10) * Bowel - Miralax 17GM daily, Senna/colace 2 tablets BID PRN, Dulcolax 10MG daily PRN. * Adult immunization - Administer Prevnar 13, Pneumovax 23, Fluzone as appropriate. * DVT prophylaxis - Lovenox 40MG SC daily. * COPD - Fluticasone/Salmeterol 232-14 1 puff Q12H, Incruse Ellipta 1 puff daily, Duoneb 3ML nebulized Q8H, Albuterol 2.5MG nebulized Q4H PRN. * Acute on chronic diastolic congestive heart failure - Losartan 25MG daily, Lasix 40MG BID. * Nutrition - Glucerna 120ML 4x/day. * Coronary Artery Disease status post NSTEMI 2/2 demand ischemia - Losartan 25MG daily, NTG 0.4MG Q5M PRN. * Hypokalemia - K-Dur 10MEQ daily.
[2019-10-25] MEDS: Fluticasone/Salmeterol 232-14 Inhaler 1 PUFF IH (18:03)
[2019-10-25] MEDS: Acetaminophen 500 MG Tablet 1000 MG PO (18:03)
[2019-10-25] MEDS: Furosemide 40 MG Tablet PO (18:03)
[2019-10-26] MEDS: Fluticasone/Salmeterol 232-14 Inhaler 1 PUFF IH ×2 (05:18→18:11)
[2019-10-26] MEDS: Umeclidinium Bromide Inhaler 1 PUFF IH (05:19)
[2019-10-26] MEDS: Losartan Potassium 25 MG Tablet PO (05:20)
[2019-10-26] MEDS: Polyethylene Glycol 3350 17 GM PACKET PO (05:20)
[2019-10-26] MEDS: Acetaminophen 500 MG Tablet 1000 MG PO ×2 (05:20→19:58)
[2019-10-26] MEDS: Enoxaparin 40 MG/0.4 ML Syringe SC (05:23)
[2019-10-26] MEDS: Bisacodyl 5 MG Tablet 10 MG PO (05:28)
[2019-10-26 06:25] LABS: Absolute Lymphocyte Count 1.18 X10^3/uL (0.83-4.51); Absolute Neutrophil Count 3.1 X10^3/uL (2.0-7.7); Basophil# 0.06 X10^3/uL; Basophil% 1.2 % (0-1); Eosinophil# 0.29 X10^3/uL; Eosinophils% 5.6 % (0-5); Hematocrit 31.9 % (40-54); Hemoglobin 9.7 g/dL (13.0-16.5); Lymphocyte # 1.18 X10^3/ul (4.0); Lymphocyte % 22.9 % (19-41); Mean Corp Hgb Conc 30.4 g/dL (32-36); Mean Corpuscular Hgb 27.1 pg (27.0-32.0); Mean Corpuscular Volume 89.1 fL (80-94); Mean Platelet Vol. 8.8 fl (6.2-12.0); Monocyte# 0.53 X10^3/uL; Monocyte% 10.3 % (0-10); NRBC Flagged by Analyzer 0 % (0-5); Neutrophil # 3.08 X10^3/uL (2.7-7.7); Neutrophil % 59.8 % (47-70); Platelet Count 233 K/mm3 (150-450); RBC Distribution Width CV 14.3 % (11.6-14.6); RBC Distribution Width SD 46.2 fl (35.1-43.9); Red Blood Count 3.58 M/mm3 (4.6-6.2); White Blood Count 5.2 K/mm3 (4.4-11.0)
[2019-10-26 06:59] LABS: Anion Gap 4 (5-15); BUN 17 mg/dL (7-18); BUN/Creat Ratio 30.6 RATIO (10-20); Calcium,Total 9.1 mg/dL (8.5-10.1); Chloride 95 mmol/L (98-107); Creatinine, Serum 0.56 mg/dL (0.70-1.30); EST Glomerular Filtration Rate 149 mL/min (>60); Est Glom Filt Rate - Afr Amer 181 mL/min (>60); Estimated Creatinine Clearance 46.33 ml/min; Glucose 99 mg/dL (74-106); Potassium 3.9 mmol/L (3.5-5.1); Sodium Level 135 mmol/L (136-145)
[2019-10-26 07:50] VITALS: O2SAT 95
[2019-10-26 07:51] VITALS: O2SAT 99
[2019-10-26] MEDS: Furosemide 40 MG Tablet PO ×2 (08:35→17:45)
[2019-10-26] MEDS: Tuberculin,Purif.prot.deriv. 50 TU/ML Vial 5 ML ID (11:07)
--- NOTE | 2019-10-26 12:37 | PHA.CONS_ITS ---
<Mayi Gordon M - Last Filed: 10/26/19 12:37> Progress Note - Pharmacy Subjective: [] Objective: Allergies ampicillin Allergy (Verified 10/22/19 05:39) Anaphylaxis azithromycin Allergy (Verified 10/22/19 05:39) Rash codeine Allergy (Verified 10/22/19 05:39) Rash penicillin G Allergy (Verified 10/22/19 05:39) Rash Sulfa (Sulfonamide Antibiotics) Allergy (Verified 10/22/19 05:39) Rash sulfamethoxazole [From Bactrim] Allergy (Verified 10/22/19 05:39) Rash trimethoprim [From Bactrim] Allergy (Verified 10/22/19 05:39) Rash Current Medications Generic Name Dose Route Start Last Admin Trade Name Freq PRN Reason Stop Dose Admin Acetaminophen 1,000 mg 10/25/19 14:14 10/26/19 05:20 Tylenol PO 1,000 mg Q6H PRN Administration Pain Score 1-10/10 Albuterol Sulfate 2.5 mg 10/25/19 12:26 Ventolin Aerosols INHALATION Q4H PRN PRN dyspnea, wheezing Albuterol/Ipratropium 3 ml 10/25/19 14:00 Duoneb INHALATION Q8 WEI Bisacodyl 10 mg 10/25/19 14:14 10/26/19 05:28 Dulcolax PO 10 mg DAILY PRN Administration Constipation Enoxaparin Sodium 40 mg 10/26/19 06:00 10/26/19 05:23 Lovenox SC 40 mg DAILY@0600 WEI Administration Furosemide 40 mg 10/25/19 18:00 10/26/19 08:35 Lasix PO 40 mg BID@1000,1800 WEI Administration Losartan Potassium 25 mg 10/26/19 06:00 10/26/19 05:20 Cozaar PO 25 mg DAILY WIE Administration Nitroglycerin 0.4 mg 10/25/19 12:26 Nitrostat SUBLINGUAL Q5M PRN CARDIAC/CHEST PAIN Nutritional Formula (Lactose Free) 120 ml 10/25/19 17:00 10/26/19 05:23 Glucerna Shake PO Not Given 4X/DAY WEI Polyethylene Glycol 17 gm 10/26/19 06:00 10/26/19 05:20 Miralax PO 17 gm DAILY WEI Administration Potassium Chloride 10 meq 10/26/19 08:00 10/26/19 08:35 K-Dur PO 10 meq DAILYCM WEI Administration Fluticasone/Salmeterol 1 puff 10/25/19 18:00 10/26/19 05:18 Fluticasone-Salmeterol 232-14 IH 1 puff Q12 WEI Administration Senna/Docusate Sodium 2 tablet 10/25/19 12:26 Senokot-S, Angeli-Colace PO DAILY PRN PRN CONSTIPATION Tuberculin PPD 5 tu 11/02/19 10:00 Tubersol, Aplisol, Ppd ID 11/02/19 10:01 X1 ONE Umeclidinium [place] 1 puff 10/26/19 06:00 10/26/19 05:19 Incruse Ellipta Inhaler IH 1 inhaler DAILY WEI Administration Problem List (Last Reviewed 10/20/19 @ 13:39 by Nya Reveles) Debility (Acute) Shortness of breath (Acute) Hyponatremia (Acute) Elevated troponin (Acute) Sleep apnea (Chronic) Aortic stenosis (Chronic) Hypertension (Chronic) Acute on chronic diastolic (congestive) heart failure (Acute) Atrial flutter (Chronic) Hypokalemia (Chronic) Allergic rhinitis (Chronic) Vital Signs Temp Pulse Resp BP Pulse Ox 98.3 F 76 18 120/56 L 99 10/25/19 10:29 10/25/19 10:29 10/25/19 10:29 10/25/19 10:29 10/26/19 07:51 Oxygen Flow Rate (L/min) 5 Oxygen Delivery Method Nasal Cannula Weight: 58.525 kg Body Mass Index (BMI) 20.2 Sodium 135 mmol/L (136-145) L 10/26/19 06:04 Potassium 3.9 mmol/L (3.5-5.1) 10/26/19 06:04 Chloride 95 mmol/L (98-107) L 10/26/19 06:04 Carbon Dioxide 36.0 mmol/L (21.0-32.0) H 10/26/19 06:04 Anion Gap 4 (5-15) L 10/26/19 06:04 BUN 17 mg/dL (7-18) 10/26/19 06:04 Creatinine 0.56 mg/dL (0.70-1.30) L 10/26/19 06:04 Est GFR (MDRD) Af Amer 181 mL/min (>60) 10/26/19 06:04 Est GFR (MDRD) Non-Af 149 mL/min (>60) 10/26/19 06:04 BUN/Creatinine Ratio 30.6 RATIO (10-20) H 10/26/19 06:04 Glucose 99 mg/dL (74-106) 10/26/19 06:04 Assessment/Plan: 1. Pain: Tylenol 1,000 mg PO Q6h PRN Pain 1-05/15. Please continue to monitor for increased/decreased pain, PRN medication usage. 2. COPD: AirDuo 1 puff Q12hr, Incruse 1 puff INH daily, Ventolin aerosols Q4hr PRN SOB/wheezing. Please continue to monitor respiratory status, improvement in symptoms, and PRN medication usage. 3. CHF: Losartan 25mg PO daily, Lasix 40mg PO BID, K-Dur 10mEq PO Daily. Please continue to monitor BP, fluid status, electrolytes 4. CAD/ S/P NSTEMI: Nitrostat Q5min PRN chest pain, Losartan 25mg PO daily. Please continue to monitor BP, PRN medication usage 5. DVT Prophylaxis: Lovenox 40mg SC daily. Please continue to monitor renal function, S/S bleeding/bruising. Psychotropic Medications: None Unnecessary Medications: None Bowel Regimen: Miralax 17g PO Daily, Senna/Docusate 2 tab PO Daily PRN, Bisacodyl 10mg PO Daily PRN. Please continue to monitor for increased/decreased constipation and/or diarrhea, PRN medication usage. Date of Note:: 10/26/19 - Provider Comments Provider responsibility: Provider responsible to enter orders to implement recommendations <Jacob Bullock Chi - Last Filed: 10/26/19 17:28> Progress Note - Pharmacy Subjective: [] Objective: Allergies ampicillin Allergy (Verified 10/22/19 05:39) Anaphylaxis azithromycin Allergy (Verified 10/22/19 05:39) Rash codeine Allergy (Verified 10/22/19 05:39) Rash penicillin G Allergy (Verified 10/22/19 05:39) Rash Sulfa (Sulfonamide Antibiotics) Allergy (Verified 10/22/19 05:39) Rash sulfamethoxazole [From Bactrim] Allergy (Verified 10/22/19 05:39) Rash trimethoprim [From Bactrim] Allergy (Verified 10/22/19 05:39) Rash Current Medications Generic Name Dose Route Start Last Admin Trade Name Freq PRN Reason Stop Dose Admin Acetaminophen 1,000 mg 10/25/19 14:14 10/26/19 05:20 Tylenol PO 1,000 mg Q6H PRN Administration Pain Score 1-10/10 Albuterol Sulfate 2.5 mg 10/25/19 12:26 Ventolin Aerosols INHALATION Q4H PRN PRN dyspnea, wheezing Albuterol/Ipratropium 3 ml 10/25/19 14:00 Duoneb INHALATION Q8 WEI Bisacodyl 10 mg 10/25/19 14:14 10/26/19 05:28 Dulcolax PO 10 mg DAILY PRN Administration Constipation Enoxaparin Sodium 40 mg 10/26/19 06:00 10/26/19 05:23 Lovenox SC 40 mg DAILY@0600 WEI Administration Furosemide 40 mg 10/25/19 18:00 10/26/19 08:35 Lasix PO 40 mg BID@1000,1800 WEI Administration Losartan Potassium 25 mg 10/26/19 06:00 10/26/19 05:20 Cozaar PO 25 mg DAILY WEI Administration Nitroglycerin 0.4 mg 10/25/19 12:26 Nitrostat SUBLINGUAL Q5M PRN CARDIAC/CHEST PAIN Nutritional Formula (Lactose Free) 120 ml 10/25/19 17:00 10/26/19 12:45 Glucerna Shake PO 120 ml 4X/DAY WEI Administration Polyethylene Glycol 17 gm 10/26/19 06:00 10/26/19 05:20 Miralax PO 17 gm DAILY WEI Administration Potassium Chloride 10 meq 10/26/19 08:00 10/26/19 08:35 K-Dur PO 10 meq DAILYCM WEI Administration Fluticasone/Salmeterol 1 puff 10/25/19 18:00 10/26/19 05:18 Fluticasone-Salmeterol 232-14 IH 1 puff Q12 WEI Administration Senna/Docusate Sodium 2 tablet 10/25/19 12:26 Senokot-S, Angeli-Colace PO DAILY PRN PRN CONSTIPATION Tuberculin PPD 5 tu 11/02/19 10:00 Tubersol, Aplisol, Ppd ID 11/02/19 10:01 X1 ONE Umeclidinium [place] 1 puff 10/26/19 06:00 10/26/19 05:19 Incruse Ellipta Inhaler IH 1 inhaler DAILY WEI Administration Problem List (Last Reviewed 10/20/19 @ 13:39 by Nya Reveles) Debility (Acute) Shortness of breath (Acute) Hyponatremia (Acute) Elevated troponin (Acute) Sleep apnea (Chronic) Aortic stenosis (Chronic) Hypertension (Chronic) Acute on chronic diastolic (congestive) heart failure (Acute) Atrial flutter (Chronic) Hypokalemia (Chronic) Allergic rhinitis (Chronic) Vital Signs Temp Pulse Resp BP Pulse Ox 98.0 F 93 18 96/45 L 97 10/26/19 13:34 10/26/19 13:34 10/26/19 13:34 10/26/19 13:34 10/26/19 13:34 Oxygen Flow Rate (L/min) 5 Oxygen Delivery Method Nasal Cannula Weight: 55.2 kg Body Mass Index (BMI) 20.2 Sodium 135 mmol/L (136-145) L 10/26/19 06:04 Potassium 3.9 mmol/L (3.5-5.1) 10/26/19 06:04 Chloride 95 mmol/L (98-107) L 10/26/19 06:04 Carbon Dioxide 36.0 mmol/L (21.0-32.0) H 10/26/19 06:04 Anion Gap 4 (5-15) L 10/26/19 06:04 BUN 17 mg/dL (7-18) 10/26/19 06:04 Creatinine 0.56 mg/dL (0.70-1.30) L 10/26/19 06:04 Est GFR (MDRD) Af Amer 181 mL/min (>60) 10/26/19 06:04 Est GFR (MDRD) Non-Af 149 mL/min (>60) 10/26/19 06:04 BUN/Creatinine Ratio 30.6 RATIO (10-20) H 10/26/19 06:04 Glucose 99 mg/dL (74-106) 10/26/19 06:04 Assessment/Plan: Psychotropic Medications: Unnecessary Medications: Bowel Regimen: - Provider Comments Provider responsibility: Provider responsible to enter orders to implement recommendations Provider Comments to Recommendations by Pharmacy: Agree
[2019-10-26] MEDS: Glucerna Shake 120 ML LIQUID PO ×2 (12:45→20:00)
[2019-10-26 13:34] VITALS: BP 96/45; PULSE 93; RESP 18; TEMP 36.7; O2SAT 97
[2019-10-26 17:46] VITALS: BP 125/55; PULSE 93
[2019-10-26 22:45] VITALS: O2SAT 96
--- NOTE | 2019-10-26 22:56 | CPS ---
assisted pt with putting on Trilogy machine and bled in O2 at 4.5 lpm
[2019-10-26 23:29] VITALS: PULSE 87; O2SAT 94
[2019-10-27] MEDS: Fluticasone/Salmeterol 232-14 Inhaler 1 PUFF IH ×2 (05:09→17:10)
[2019-10-27] MEDS: Acetaminophen 500 MG Tablet 1000 MG PO ×3 (05:10→21:36)
[2019-10-27] MEDS: Umeclidinium Bromide Inhaler 1 PUFF IH (05:10)
[2019-10-27] MEDS: Losartan Potassium 25 MG Tablet PO (05:12)
[2019-10-27] MEDS: Enoxaparin 40 MG/0.4 ML Syringe SC (05:14)
[2019-10-27 06:30] VITALS: O2SAT 94
[2019-10-27] MEDS: Furosemide 40 MG Tablet PO ×2 (09:12→17:11)
[2019-10-27 09:13] VITALS: PULSE 87; RESP 20; O2SAT 97
[2019-10-27] MEDS: Glucerna Shake 120 ML LIQUID PO (11:06)
[2019-10-27] MEDS: Senna/Docusate Sodium 1 Tablet 2 TABLET PO (13:44)
[2019-10-27 14:10] VITALS: BP 82/50; PULSE 72; RESP 20; TEMP 36.9; O2SAT 97
[2019-10-27 14:41] VITALS: BP 95/48
--- NOTE | 2019-10-27 16:48 | CASEMGMT ---
Social Work Reviewed and agreed with social work general internist documentation on this date. Briseida Andrew, SUBSTATION SUPERINTENDENT PHONE COUNSELOR
[2019-10-28] MEDS: Losartan Potassium 25 MG Tablet PO (05:54)
[2019-10-28] MEDS: Acetaminophen 500 MG Tablet 1000 MG PO ×3 (05:54→21:44)
[2019-10-28] MEDS: Fluticasone/Salmeterol 232-14 Inhaler 1 PUFF IH ×2 (05:55→16:40)
[2019-10-28] MEDS: Polyethylene Glycol 3350 17 GM PACKET PO (05:55)
[2019-10-28] MEDS: Umeclidinium Bromide Inhaler 1 PUFF IH (05:56)
[2019-10-28] MEDS: Furosemide 40 MG Tablet PO ×2 (09:29→16:40)
[2019-10-28 11:11] VITALS: O2SAT 90
[2019-10-28 13:30] VITALS: BP 86/42; PULSE 85; RESP 17; TEMP 36.7; O2SAT 98
--- NOTE | 2019-10-28 16:05 | CHAPLAIN ---
Type of Pastoral Visit _x__ Initial Visit ___ Follow-up Visit ___ On-call Visit ___ General Patient Visit ___ Spiritual Assessment ___ Family Conference ___ Bereavement ___ Rapid Response ___ Code Blue ___ Other (describe below) Pastoral Care Referral From _x__ Patient ___ Family ___ Nurse ___ Physician ___ Chief Deputy Coroner ___ Director Of Front Office ___ Other (describe below) Sacrament/Intervention _x__ Active listening ___ Anointing ___ Oriental Orthodox ___ Bereavement ___ Communion _x__ Teena exploration ___ ___ Life review _x__ Prayer ___ Reconciliation ___ Sacrament of Sick _x__ Supportive presence ___ Wedding ___ Other (describe below) Pastoral Comments
[2019-10-28 16:39] VITALS: BP 110/55; PULSE 75
[2019-10-29] MEDS: Polyethylene Glycol 3350 17 GM PACKET PO (06:04)
[2019-10-29] MEDS: Acetaminophen 500 MG Tablet 1000 MG PO ×3 (06:04→21:33)
[2019-10-29] MEDS: Losartan Potassium 25 MG Tablet PO (06:04)
[2019-10-29] MEDS: Umeclidinium Bromide Inhaler 1 PUFF IH (06:05)
[2019-10-29] MEDS: Fluticasone/Salmeterol 232-14 Inhaler 1 PUFF IH ×2 (06:05→17:31)
[2019-10-29 09:11] VITALS: PULSE 76; RESP 16; O2SAT 96
[2019-10-29] MEDS: Furosemide 40 MG Tablet PO (09:11)
--- NOTE | 2019-10-29 11:28 | CASEMGMT ---
Social Work IDT met with patient, and dtr via conference call for care plan meeting. Discussed patient's progress in therapy. Pt is min assist for bed mobility, CGA with transfers, walking 40 ft with FWW at CGA, completed 3 steps with 2 HR, but pt fatigues quickly. Pt is set up for grooming, min assist for a sponge bath, set up for UE dressing and min assist for LE dressing. Will begin trailing adaptive equipment. Pt is min assist for toileting tasks, but fatigues quickly with all ADLS. Pt will continue with 1:1 visits with activities/ Pt is on a cardiac diet, 1500 cc fluid restriction, getting ensure and magic cup with small portions; eating well. Updated pt food preferences and notified nurse to get pt accurate weight. Pt has home trilogy unit with O2 bled in and BP is controlled. Pt reports to sleeping better with different bed. Pt lies at home with spouse with 2 steps to enter. Explained medicare benefit. Goal is for pt to return home with at PLOF. Will continue to follow. LINUS FoleyW
[2019-10-29 13:58] VITALS: BP 96/52; PULSE 87; RESP 18; TEMP 36.7; O2SAT 92
[2019-10-29 20:29] VITALS: BP 129/60; PULSE 91; RESP 22; TEMP 37; O2SAT 96
[2019-10-29 21:11] LABS: Bedside Glucose 118 mg/dL (70-110)
[2019-10-30 05:10] VITALS: BP 122/55; PULSE 81; RESP 20; O2SAT 95
[2019-10-30] MEDS: Polyethylene Glycol 3350 17 GM PACKET PO (05:40)
[2019-10-30] MEDS: Acetaminophen 500 MG Tablet 1000 MG PO ×3 (05:41→20:58)
[2019-10-30] MEDS: Losartan Potassium 25 MG Tablet PO (05:42)
[2019-10-30] MEDS: Furosemide 40 MG Tablet PO (05:42)
[2019-10-30] MEDS: Umeclidinium Bromide Inhaler 1 PUFF IH (05:43)
[2019-10-30] MEDS: Fluticasone/Salmeterol 232-14 Inhaler 1 PUFF IH ×2 (05:43→17:37)
[2019-10-30 14:21] VITALS: BP 94/45; PULSE 76; RESP 16; TEMP 36.7; O2SAT 93
[2019-10-30 23:23] VITALS: PULSE 76; O2SAT 98
[2019-10-31] MEDS: Fluticasone/Salmeterol 232-14 Inhaler 1 PUFF IH ×2 (05:48→17:07)
[2019-10-31] MEDS: Umeclidinium Bromide Inhaler 1 PUFF IH (05:49)
[2019-10-31] MEDS: Furosemide 40 MG Tablet PO (05:50)
[2019-10-31] MEDS: Losartan Potassium 25 MG Tablet PO (05:50)
[2019-10-31] MEDS: Acetaminophen 500 MG Tablet 1000 MG PO ×3 (05:50→22:20)
[2019-10-31] MEDS: Polyethylene Glycol 3350 17 GM PACKET PO (05:51)
[2019-10-31] MEDS: Bisacodyl 5 MG Tablet 10 MG PO (05:55)
[2019-10-31 07:10] VITALS: O2SAT 94
[2019-10-31 08:35] VITALS: BP 95/53; PULSE 51; RESP 16; TEMP 37; O2SAT 96
--- NOTE | 2019-10-31 10:41 | CASEMGMT ---
Social Work Completed BIMS and PHQ-9 for MDS assessment. Elizabeth Grubbs, social work project management intern Briseida Andrew, SPECIALTY SALES CONSULTANT SENIOR CAPITAL MARKETS SPECIALIST
[2019-10-31 13:30] VITALS: BP 107/59; PULSE 87; RESP 18; TEMP 36.4; O2SAT 94
--- NOTE | 2019-10-31 13:40 | MDS.RN ---
Pain interview for JANE 11/01/19 completed today.
--- NOTE | 2019-10-31 15:57 | NURSING ---
[facility] called and cancelled appt on thursday 11/02, want to see him 1 month from sunday. Will schedule then.
[2019-11-01 05:17] VITALS: BP 141/65; PULSE 92
[2019-11-01] MEDS: Furosemide 40 MG Tablet PO (05:22)
[2019-11-01] MEDS: Acetaminophen 500 MG Tablet 1000 MG PO ×3 (05:22→21:57)
[2019-11-01] MEDS: Losartan Potassium 25 MG Tablet PO (05:22)
[2019-11-01] MEDS: Polyethylene Glycol 3350 17 GM PACKET PO (05:22)
[2019-11-01] MEDS: Fluticasone/Salmeterol 232-14 Inhaler 1 PUFF IH ×2 (05:23→17:31)
[2019-11-01] MEDS: Umeclidinium Bromide Inhaler 1 PUFF IH (05:50)
[2019-11-01 06:37] VITALS: O2SAT 95
[2019-11-01 13:29] VITALS: BP 103/49; PULSE 75; RESP 16; TEMP 37; O2SAT 92
[2019-11-02 05:45] LABS: Absolute Neutrophil Count 3.2 X10^3/uL (2.0-7.7); Basophil# 0.04 X10^3/uL; Basophil% 0.8 % (0-1); Eosinophil# 0.18 X10^3/uL; Eosinophils% 3.6 % (0-5); Hematocrit 31.3 % (40-54); Hemoglobin 9.3 g/dL (13.0-16.5); Lymphocyte % 20.2 % (19-41); Mean Corp Hgb Conc 29.7 g/dL (32-36); Mean Corpuscular Hgb 28.1 pg (27.0-32.0); Mean Corpuscular Volume 94.6 fL (80-94); Mean Platelet Vol. 9.2 fl (6.2-12.0); Monocyte# 0.57 X10^3/uL; Monocyte% 11.5 % (0-10); NRBC Flagged by Analyzer 0 % (0-5); Neutrophil # 3.16 X10^3/uL (2.7-7.7); Neutrophil % 63.7 % (47-70); Platelet Count 178 K/mm3 (150-450); RBC Distribution Width CV 14.8 % (11.6-14.6); RBC Distribution Width SD 50.4 fl (35.1-43.9); Red Blood Count 3.31 M/mm3 (4.6-6.2)
[2019-11-02] MEDS: Acetaminophen 500 MG Tablet 1000 MG PO ×3 (06:31→22:05)
[2019-11-02] MEDS: Polyethylene Glycol 3350 17 GM PACKET PO (06:31)
[2019-11-02] MEDS: Furosemide 40 MG Tablet PO (06:32)
[2019-11-02] MEDS: Losartan Potassium 25 MG Tablet PO (06:32)
[2019-11-02] MEDS: Fluticasone/Salmeterol 232-14 Inhaler 1 PUFF IH ×2 (06:32→16:55)
[2019-11-02] MEDS: Umeclidinium Bromide Inhaler 1 PUFF IH (06:33)
[2019-11-02 06:36] LABS: Anion Gap 0 (5-15); BUN 20 mg/dL (7-18); BUN/Creat Ratio 42.4 RATIO (10-20); Calcium,Total 9.4 mg/dL (8.5-10.1); Chloride 102 mmol/L (98-107); Creatinine, Serum 0.47 mg/dL (0.70-1.30); EST Glomerular Filtration Rate 180 mL/min (>60); Est Glom Filt Rate - Afr Amer 218 mL/min (>60); Estimated Creatinine Clearance 45.64 ml/min; Glucose 106 mg/dL (74-106); Potassium 4.2 mmol/L (3.5-5.1); Sodium Level 141 mmol/L (136-145)
[2019-11-02 07:58] VITALS: PULSE 80; RESP 24; O2SAT 90
[2019-11-02] MEDS: Albuterol 2.5 MG/3 ML VIAL.NEB. INHALATION ×2 (07:58→11:38)
[2019-11-02 10:00] VITALS: PULSE 98; RESP 24; O2SAT 80
[2019-11-02 11:38] VITALS: PULSE 86; RESP 24
[2019-11-02 11:53] VITALS: BP 116/38; PULSE 98; RESP 24; O2SAT 82
[2019-11-02] MEDS: Tuberculin,Purif.prot.deriv. 50 TU/ML Vial 5 ML ID (13:14)
--- NOTE | 2019-11-02 13:55 | NURSING ---
Pt is having high anxiety and SOB. Pt. using accessory muscles while breathing. Pt spo2 drops to the low 80% when standing on 6l of O2. Charge nurse notified.
--- NOTE | 2019-11-02 13:58 | NURSING ---
Dr Bullock notified pt c/o problems breathing and appearing anxious. Dr. Bullock stated he will add orders.
[2019-11-02 13:59] VITALS: BP 113/49; PULSE 98; RESP 24; TEMP 36.7; O2SAT 91
--- NOTE | 2019-11-02 13:59 | RAD_ITS ---
STUDY: X-RAY CHEST REASON FOR EXAM: Male, 84 years old. SOB, ACUTE ON-SET TECHNIQUE: PA and lateral views. COMPARISON: 10/22/2019. FINDINGS: Dual-chamber pacing lead tips remain in the right atrium and right ventricle. Pulmonary hyperinflation. Asymmetric bullous cystic emphysema in the upper lobes. Asymmetric bibasilar fibrosis. No suspicious confluent infiltrates. Moderate right pleural fluid is unchanged. No suspicious left pleural fluid. Normal size heart. Normal mediastinum and rafia. Normal visualized pulmonary arteries. Normal visualized aortic arch and descending thoracic aorta. Varying degrees of old compression fractures involving T6 down to L2 vertebral bodies. Normal visualized ribs, clavicles, and shoulders. There is no demonstrated abnormality of the visualized soft tissue structures of the upper abdomen. RAD/Chest PA and Lateral IMPRESSION: 1. 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 2. Moderate right pleural fluid. 3. Multiple old compression fractures of the upper vertebral bodies from T6 down to L2. 4. No significant interval change when compared to 10/22/2019. Electronically Signed: Darell Blood MD at 14:37 EDT , Service support ,
[2019-11-02] MEDS: Furosemide 40 MG/4 ML Vial IV (15:10)
--- NOTE | 2019-11-02 15:27 | NURSING ---
Spoke with pharmacy regarding Lasix IV administration now and again at 1800. Per Pharmacist Erwin hold lasix today at 1800 and resume schedule tomorrow.
[2019-11-02] MEDS: MethylPREDNISolone DosePak 4 MG BOX PO ×2 (16:56→21:30)
--- NOTE | 2019-11-02 20:15 | NURSING ---
Pt asked this nurse to call his to give her updates on his xray and any new orders. I spoke with the letting her know that pt was started on IV lasix and medrol dosepak for SOB. Pt stated, has been stating having problem with trilogy not been able to breathe correctly with it on at hs. states, I talked with a Wang Lema from [facility] a respiratory therapist about trilogy and he states that he might need a new mask. Due to the virus going on he will not be able to get him one. If we have any concerns of need any help trouble shooting his trilogy we can call [phone] and he can walk us through it. I let know that respiratory has been apply trilogy on at hs per patient request and I will call and let our respiratory know about patient concerns on trilogy at hs. Rn made aware.
--- NOTE | 2019-11-03 01:27 | NURSING ---
Addendum entered by Gissel Muniz 11/03/19 04:10: at 3am pt calls out to have trilogy placed back on. pt resting with call light at reach. Original Note: 127am pt removes trilogy. this nurse reeducates pt on the importance of keeping it on at night, pt disagreed and refused to wear it. spo2 at 92%. pt resting comfortably with call light at reach, will continue to monitor o2 levels throughout night.
[2019-11-03] MEDS: Acetaminophen 500 MG Tablet 1000 MG PO ×3 (06:07→20:50)
[2019-11-03] MEDS: Losartan Potassium 25 MG Tablet PO (06:08)
[2019-11-03] MEDS: Fluticasone/Salmeterol 232-14 Inhaler 1 PUFF IH ×2 (06:09→17:20)
[2019-11-03] MEDS: Umeclidinium Bromide Inhaler 1 PUFF IH (06:10)
[2019-11-03] MEDS: Polyethylene Glycol 3350 17 GM PACKET PO (06:10)
[2019-11-03 07:02] LABS: Anion Gap 5 (5-15); BUN 21 mg/dL (7-18); BUN/Creat Ratio 33.8 RATIO (10-20); Calcium,Total 9.2 mg/dL (8.5-10.1); Chloride 97 mmol/L (98-107); Creatinine, Serum 0.62 mg/dL (0.70-1.30); EST Glomerular Filtration Rate 131 mL/min (>60); Est Glom Filt Rate - Afr Amer 159 mL/min (>60); Estimated Creatinine Clearance 46.14 ml/min; Glucose 129 mg/dL (74-106); Potassium 4.3 mmol/L (3.5-5.1); Sodium Level 139 mmol/L (136-145)
[2019-11-03 07:25] VITALS: O2SAT 92
[2019-11-03] MEDS: MethylPREDNISolone DosePak 4 MG BOX PO ×4 (08:23→20:48)
[2019-11-03] MEDS: Furosemide 40 MG Tablet PO ×2 (09:23→17:21)
[2019-11-03] MEDS: 0.9% Saline Lock 10 ML Syringe IV ×2 (09:38→20:52)
--- NOTE | 2019-11-03 11:42 | NURSING ---
spoke with pt regarding his trilogy machine, he is requesting that it be in his reach because he controls it at home and feels that he does not have the ability to reach it. Asked pt about mask not fitting properly, pt reported that its been like that for awhile and its tolerable now. Spoke with his daughter, Aysha and she stated she had spoke with Falguni Moy, pulmonary [employer]ISH[employer] regarding his mask. Daughter waiting for return call. The company that provided him the machine is not able to bring a new mask d/t the coronavirus.
--- NOTE | 2019-11-03 14:19 | CASEMGMT ---
Social Work Reviewed and agreed with social work chemist intern documentation on this date. Briseida Andrew, TAXONOMIST HOME MANAGEMENT SUPERVISOR
[2019-11-03 14:44] VITALS: BP 97/57; PULSE 68; RESP 18; TEMP 36.9; O2SAT 96
[2019-11-03] MEDS: PARoxetine 10 MG Tablet PO (20:50)
[2019-11-04] MEDS: Acetaminophen 500 MG Tablet 1000 MG PO ×3 (05:28→21:12)
[2019-11-04] MEDS: Losartan Potassium 25 MG Tablet PO (05:28)
[2019-11-04] MEDS: Umeclidinium Bromide Inhaler 1 PUFF IH (05:29)
[2019-11-04] MEDS: Fluticasone/Salmeterol 232-14 Inhaler 1 PUFF IH ×2 (05:29→17:33)
[2019-11-04 06:32] VITALS: O2SAT 98
[2019-11-04] MEDS: MethylPREDNISolone DosePak 4 MG BOX PO ×4 (07:46→21:11)
--- NOTE | 2019-11-04 09:14 | MDS.RN ---
Information for the mds was obtained from review of the clinical record, interview of resident, staff, and direct observation of resident's care.
[2019-11-04] MEDS: Furosemide 40 MG Tablet PO ×2 (10:31→17:33)
[2019-11-04] MEDS: 0.9% Saline Lock 10 ML Syringe IV (10:32)
[2019-11-04 10:35] VITALS: PULSE 81; RESP 18; O2SAT 94
[2019-11-04] MEDS: Polyethylene Glycol 3350 17 GM PACKET PO (13:36)
[2019-11-04] MEDS: PARoxetine 10 MG Tablet PO (21:12)
[2019-11-05] MEDS: Fluticasone/Salmeterol 232-14 Inhaler 1 PUFF IH ×2 (05:56→17:10)
[2019-11-05] MEDS: Umeclidinium Bromide Inhaler 1 PUFF IH (05:57)
[2019-11-05] MEDS: Losartan Potassium 25 MG Tablet PO (05:59)
[2019-11-05] MEDS: Polyethylene Glycol 3350 17 GM PACKET PO (05:59)
[2019-11-05] MEDS: Acetaminophen 500 MG Tablet 1000 MG PO ×3 (05:59→20:05)
[2019-11-05] MEDS: MethylPREDNISolone DosePak 4 MG BOX PO ×3 (07:52→20:04)
[2019-11-05] MEDS: Furosemide 40 MG Tablet PO ×2 (09:11→17:11)
--- NOTE | 2019-11-05 12:12 | SLEEP ---
Visit to patient to assess mask for his Trilogy NIV d/t complaints of leak. Mask appears to be new, cushion very dirty. Washed with soap and water and put back together. Re-educated pt on proper mask adjustment. Pt states washes cushion daily at home but it hasn't been cleaned since he's been here. His nurse is aware and will pass on to other staff as well. pt denies any other needs at this time.
[2019-11-05 13:47] VITALS: BP 125/53; PULSE 76; RESP 18; TEMP 36.6; O2SAT 99
[2019-11-05 19:54] VITALS: PULSE 81; O2SAT 99
[2019-11-05] MEDS: PARoxetine 10 MG Tablet PO (20:05)
[2019-11-06] MEDS: Acetaminophen 500 MG Tablet 1000 MG PO ×3 (06:05→20:57)
[2019-11-06] MEDS: Fluticasone/Salmeterol 232-14 Inhaler 1 PUFF IH ×2 (06:05→17:40)
[2019-11-06] MEDS: Umeclidinium Bromide Inhaler 1 PUFF IH (06:05)
[2019-11-06] MEDS: Losartan Potassium 25 MG Tablet PO (06:05)
[2019-11-06] MEDS: Polyethylene Glycol 3350 17 GM PACKET PO (06:05)
[2019-11-06] MEDS: MethylPREDNISolone DosePak 4 MG BOX PO ×2 (08:00→20:57)
[2019-11-06 10:00] VITALS: PULSE 81; RESP 18; O2SAT 95
[2019-11-06] MEDS: Furosemide 40 MG Tablet PO ×2 (10:52→17:40)
[2019-11-06 14:11] VITALS: BP 93/50; PULSE 78; RESP 16; TEMP 37.2; O2SAT 92
--- NOTE | 2019-11-06 16:10 | CHAPLAIN ---
Type of Pastoral Visit ___ Initial Visit _x__ Follow-up Visit ___ On-call Visit ___ General Patient Visit ___ Spiritual Assessment ___ Family Conference ___ Bereavement ___ Rapid Response ___ Code Blue ___ Other (describe below) Pastoral Care Referral From _x__ Patient ___ Family ___ Nurse ___ Physician ___ Community Leader ___ Gamewell Operator ___ Other (describe below) Sacrament/Intervention _x__ Active listening ___ Anointing ___ Scientology ___ Bereavement ___ Communion ___ Teena exploration ___ _x__ Life review _x__ Prayer ___ Reconciliation ___ Sacrament of Sick _x__ Supportive presence ___ Wedding ___ Other (describe below) Pastoral Comments
[2019-11-06] MEDS: Menthol/Lanolin/Calamine/Znox 113 GM Tube 1 APPLIC TOPICAL (17:43)
[2019-11-06] MEDS: PARoxetine 10 MG Tablet PO (20:57)
[2019-11-07] MEDS: Umeclidinium Bromide Inhaler 1 PUFF IH (06:13)
[2019-11-07] MEDS: Fluticasone/Salmeterol 232-14 Inhaler 1 PUFF IH ×2 (06:13→17:22)
[2019-11-07] MEDS: Losartan Potassium 25 MG Tablet PO (06:14)
[2019-11-07] MEDS: Polyethylene Glycol 3350 17 GM PACKET PO (06:14)
[2019-11-07] MEDS: Menthol/Lanolin/Calamine/Znox 113 GM Tube 1 APPLIC TOPICAL ×2 (06:14→17:20)
[2019-11-07] MEDS: Acetaminophen 500 MG Tablet 1000 MG PO ×3 (06:14→20:24)
[2019-11-07 07:15] VITALS: O2SAT 96
[2019-11-07] MEDS: MethylPREDNISolone DosePak 4 MG BOX PO (08:29)
[2019-11-07] MEDS: Furosemide 40 MG Tablet PO ×2 (09:35→17:20)
[2019-11-07 10:00] VITALS: PULSE 76; RESP 18; O2SAT 99
[2019-11-07 13:47] VITALS: BP 103/54; PULSE 75; RESP 18; TEMP 36.4; O2SAT 99
--- NOTE | 2019-11-07 14:16 | CASEMGMT ---
Social Work Met with pt to discuss DC plans and changes to TCU. Explained to pt that DC date set with therapy recommendations for 11/18. Pt stated disliking staying in hospital that long, but agrees if that is what is needed, he will stay. Discussed with pt that SW/SWI/therapy can revisit DC date and pt could potentially leave before DC date if pt is safe to DC home- pt agreeable. Spoke with and pt agreeable to C. Pt to choose [facility]-PT/OT/SN. SWI/SW to revisit palliative care with closer to DC. Elizabeth Grubbs, social work graduate intern Briseida Andrew, CARCASS WASHER ADVENTURE GUIDE
--- NOTE | 2019-11-07 14:34 | PCM.DC ---
- Discharge Diagnoses Current Active Problems: Current Active and Chronic Problems (Last Reviewed 10/20/19 @ 13:39 by Nya Reveles) Debility (Acute) Shortness of breath (Acute) Hyponatremia (Acute) Elevated troponin (Acute) Sleep apnea (Chronic) Aortic stenosis (Chronic) Hypertension (Chronic) Acute on chronic diastolic (congestive) heart failure (Acute) Atrial flutter (Chronic) Hypokalemia (Chronic) Allergic rhinitis (Chronic) You will use the following diet at home:: Regular, Fluid restricted (specify 2000 mls, 1500 mls) - 1500 mls. Your food should be the consistency of: Regular Your liquids should be the consistency of: Regular/Thin Discharge Activity: Return to Normal Activity, May Shower, Use Walker Weight Bearing Status: Weight bearing as tolerated Call your doctor if you observe: Fever of 101 or Higher, Inability to urinate, Inability to have a bowel movement, Shortness of breath, Chest pain, Uncontrolled pain Allergies/Adverse Reactions: Allergies ampicillin Allergy (Verified 10/22/19 05:39) Anaphylaxis azithromycin Allergy (Verified 10/22/19 05:39) Rash codeine Allergy (Verified 10/22/19 05:39) Rash penicillin G Allergy (Verified 10/22/19 05:39) Rash Sulfa (Sulfonamide Antibiotics) Allergy (Verified 10/22/19 05:39) Rash sulfamethoxazole [From Bactrim] Allergy (Verified 10/22/19 05:39) Rash trimethoprim [From Bactrim] Allergy (Verified 10/22/19 05:39) Rash Medications to take at Discharge Losartan Potassium 25 mg PO DAILY #0 06/12/17 Albuterol Aerosols [Ventolin Aerosols] 2.5 mg INHALATION Q4H PRN PRN #90 vial.neb. 07/17/19 Fluticasone/Umeclidin/Vilanter [Trelegy Ellipta 100-62.5-25] 1 inh INHALATION DAILY 10/25/19 Furosemide [Lasix] 40 mg PO BID@1000,1800 10/25/19 Nitroglycerin (INPATIENT USE) [Nitrostat] 0.4 mg SUBLINGUAL Q5M PRN tab.subl 10/25/19 Potassium Chloride 10 meq PO DAILY 10/25/19 Acetaminophen [Tylenol] 1,000 mg PO Q8 tablet 11/07/19 Furosemide [Lasix] 40 mg PO BID@1000,1800 #60 tab 11/07/19 Menthol/Lanolin/Calamine/Znox [Calmoseptine Ointment] 1 applic TOPICAL BID tube 11/07/19 Paroxetine [Paxil] 10 mg PO QHS #30 tab 11/07/19 The following prescriptions were given: Furosemide [Lasix] 40 mg PO BID@1000,1800 #60 tab Transmission Status: Pending to [facility] Paroxetine [Paxil] 10 mg PO QHS #30 tab Transmission Status: Pending to [facility] Primary Care Physician: Misael Valencia MD [Primary Care Provider] - Please follow up with your Primary Care Physician in: 1 week. Test Results: Test results from this visit will be discussed in further detail at your follow-up appointment, if applicable. Please Follow Up With: Misael Valencia MD When: after D/C from TCU Please Follow Up With: Jason Alan MD When: want to see 1 month from 11/02 Proposed Discharge Date: 11/19/19
--- NOTE | 2019-11-07 14:37 | PCM.DC.SUM ---
Discharge Date and Diagnosis - Problem List Patient Problems: Active and Suspected Problems (Last Reviewed 10/20/19 @ 13:39 by Nya Reveles) Debility (Acute) Shortness of breath (Acute) Hyponatremia (Acute) Elevated troponin (Acute) Acute on chronic diastolic (congestive) heart failure (Acute) Date of Admission: 10/25/19 Date of Discharge: 11/19/19 - Primary Discharge Diagnosis Active and Suspected Problems (Last Reviewed 10/20/19 @ 13:39 by Nya Reveles) Debility (Acute) Shortness of breath (Acute) Hyponatremia (Acute) Elevated troponin (Acute) Acute on chronic diastolic (congestive) heart failure (Acute) - Secondary Discharge Diagnosis Chronic Problems (Last Reviewed 10/20/19 @ 13:39 by Nya Reveles) COPD with exacerbation (Chronic) Sleep apnea (Chronic) Aortic stenosis (Chronic) Hypertension (Chronic) Atrial flutter (Chronic) Hypokalemia (Chronic) Allergic rhinitis (Chronic) Colon polyps (Chronic) 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) Acute and chronic respiratory failure (Chronic) Stage 3 severe COPD by GOLD classification (Chronic) FEV1 44% of predicted on PFT 12/15/2016 at [facility] Diastolic dysfunction (Chronic) 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) Essential hypertension (Chronic) Paroxysmal atrial flutter (Chronic) Non-rheumatic tricuspid valve insufficiency (Chronic) Aortic valve stenosis, nonrheumatic (Chronic) 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 2. Moderate right pleural fluid. 3. Multiple old compression fractures of the upper vertebral bodies from T6 down to L2. 4. No significant interval change when compared to 10/22/2019. Electronically Signed: Darell Blood MD at 14:37 EDT , Service support , Operations: None Procedures: None Summary of Care Provided: The patient is a 84 year old Male with below past medical history hospitalized for acute on chronic respiratory failure secondary to acute on chronic diastolic congestive heart failure, complicated by COPD, Hyponatremia, elevated troponin secondary to demand ischemia, admitted to TCU with debility, here for rehabilitation, strengthening, prior to discharge home with family. Discharge home with family, [facility] for PT/OT/SN, palliative care. Patient Problems: Active and Suspected Problems (Last Reviewed 10/20/19 @ 13:39 by Nya Reveles) Debility (Acute) Shortness of breath (Acute) Hyponatremia (Acute) Elevated troponin (Acute) Acute on chronic diastolic (congestive) heart failure (Acute) - Physical Exam Vitals/I&O's: Vital Signs Temp Pulse Resp BP Pulse Ox 97.5 F L 75 18 103/54 L 99 11/07/19 13:47 11/07/19 13:47 11/07/19 13:47 11/07/19 13:47 11/07/19 13:47 Oxygen Flow Rate (L/min) 6 Oxygen Delivery Method Room Air Weight: 57.609 kg Body Mass Index (BMI) 20.2 Intake and Output for Last 24 Hours 11/05/19 11/06/19 11/07/19 23:59 23:59 23:59 Intake Total 1550 / 1550 1270 / 1270 830 / 830 Balance 1550 / 1550 1270 / 1270 830 / 830 Current Medications Acetaminophen (Tylenol) 1,000 mg PO Q8 WEI Last Admin: 11/07/19 13:15 Dose: 1,000 mg Documented by: Albuterol Sulfate (Ventolin Aerosols) 2.5 mg INHALATION Q4H PRN PRN PRN Reason: dyspnea, wheezing Last Admin: 11/02/19 11:38 Dose: 2.5 mg Documented by: Bisacodyl (Dulcolax) 10 mg PO DAILY PRN PRN Reason: Constipation Last Admin: 10/31/19 05:55 Dose: 10 mg Documented by: Calamine/Phenol (Calmoseptine Ointment) 1 applic TOPICAL BID [facility]; Protocol Last Admin: 11/07/19 06:14 Dose: 1 applicatio Documented by: Furosemide (Lasix) 40 mg PO BID@1000,1800 [facility] Last Admin: 11/07/19 09:35 Dose: 40 mg Documented by: Losartan Potassium (Cozaar) 25 mg PO DAILY [facility] Last Admin: 11/07/19 06:14 Dose: 25 mg Documented by: Nitroglycerin (Nitrostat) 0.4 mg SUBLINGUAL Q5M PRN PRN Reason: CARDIAC/CHEST PAIN Nutritional Formula (Lactose Free) (Ensure Enlive) 120 ml PO TID [facility] Last Admin: 11/07/19 13:15 Dose: 120 ml Documented by: Paroxetine HCl (Paxil) 10 mg PO QHS [facility] Last Admin: 11/06/19 20:57 Dose: 10 mg Documented by: Polyethylene Glycol (Miralax) 17 gm PO DAILY [facility] Last Admin: 11/07/19 06:14 Dose: 17 gm Documented by: Potassium Chloride (K-Dur) 10 meq PO DAILYCM [facility] Last Admin: 11/07/19 08:19 Dose: 10 meq Documented by: Fluticasone/Salmeterol (Fluticasone-Salmeterol [id number]) 1 puff IH Q12 [facility] Last Admin: 11/07/19 06:13 Dose: 1 puff Documented by: Senna/Docusate Sodium (Senokot-S, Angeli-Colace) 2 tablet PO DAILY PRN PRN PRN Reason: CONSTIPATION Last Admin: 10/27/19 13:44 Dose: 2 tablet Documented by: Sodium Chloride (0.9% Nacl (Sterile) Posiflush) 10 ml IV PRN PRN PRN Reason: SALINE FLUSH Sodium Chloride () 10 - 40 ml IV UD PRN PRN Reason: SALINE FLUSH Last Admin: 11/04/19 10:32 Dose: 10 ml Documented by: Umeclidinium [place] (Incruse Ellipta Inhaler) 1 puff IH DAILY [facility] Last Admin: 11/07/19 06:13 Dose: 1 puff Documented by: Discharge Diet: 6 Cup Fluid Restriction Discharge Activity: Return to Normal Activity, May Shower, Use Walker Weight Bearing Status: Weight bearing as tolerated Call your doctor if you observe: Fever of 101 or Higher, Inability to urinate, Inability to have a bowel movement, Shortness of breath, Chest pain, Uncontrolled pain Home Medications: Medications to take at Discharge Losartan Potassium 25 mg PO DAILY #0 06/12/17 Albuterol Aerosols [Ventolin Aerosols] 2.5 mg INHALATION Q4H PRN PRN #90 vial.neb. 07/17/19 Fluticasone/Umeclidin/Vilanter [Trelegy Ellipta 100-62.5-25] 1 inh INHALATION DAILY 10/25/19 Furosemide [Lasix] 40 mg PO BID@1000,1800 10/25/19 Nitroglycerin (INPATIENT USE) [Nitrostat] 0.4 mg SUBLINGUAL Q5M PRN tab.subl 10/25/19 Potassium Chloride 10 meq PO DAILY 10/25/19 Acetaminophen [Tylenol] 1,000 mg PO Q8 tablet 11/07/19 Furosemide [Lasix] 40 mg PO BID@1000,1800 #60 tab 11/07/19 Menthol/Lanolin/Calamine/Znox [Calmoseptine Ointment] 1 applic TOPICAL BID tube 11/07/19 Paroxetine [Paxil] 10 mg PO QHS #30 tab 11/07/19 Following Prescrptions Were Given to Patient: Furosemide [Lasix] 40 mg PO BID@1000,1800 #60 tab Transmission Status: Pending to [facility] Paroxetine [Paxil] 10 mg PO QHS #30 tab Transmission Status: Pending to [facility] Primary Care Physician: Misael Valencia MD [Primary Care Provider] - Please follow up with your Primary Care Physician in: 1 week. Please Follow Up With: Misael Valencia MD When: after D/C from [facility] Please Follow Up With: Jason Alan MD When: want to see 1 month from 11/02 Disposition: Home with Home Health Minutes spent on discharge:: 35 Patient Condition:: Stable Medical Necessity - Tobacco Use Smoking Status: Former smoker Tobacco Use: Cigarettes Meaningful Use Info Meaningful Use Diagnoses (Choose all that apply): None applicable
[2019-11-07] MEDS: PARoxetine 10 MG Tablet PO (20:25)
[2019-11-08] MEDS: Acetaminophen 500 MG Tablet 1000 MG PO ×3 (06:43→21:21)
[2019-11-08] MEDS: Losartan Potassium 25 MG Tablet PO (06:44)
[2019-11-08] MEDS: Fluticasone/Salmeterol 232-14 Inhaler 1 PUFF IH ×2 (06:45→17:37)
[2019-11-08] MEDS: Menthol/Lanolin/Calamine/Znox 113 GM Tube 1 APPLIC TOPICAL ×2 (06:46→17:38)
[2019-11-08] MEDS: Umeclidinium Bromide Inhaler 1 PUFF IH (06:49)
[2019-11-08 08:10] VITALS: O2SAT 98
[2019-11-08] MEDS: Furosemide 40 MG Tablet PO ×2 (08:42→17:36)
[2019-11-08 14:16] VITALS: BP 103/52; PULSE 70; RESP 16; TEMP 37.2; O2SAT 100
[2019-11-08] MEDS: PARoxetine 10 MG Tablet PO (20:29)
[2019-11-09 05:28] VITALS: BP 131/83; PULSE 68
[2019-11-09 05:30] VITALS: O2SAT 98
[2019-11-09] MEDS: Menthol/Lanolin/Calamine/Znox 113 GM Tube 1 APPLIC TOPICAL ×2 (05:34→17:43)
[2019-11-09] MEDS: Acetaminophen 500 MG Tablet 1000 MG PO ×3 (05:34→21:59)
[2019-11-09] MEDS: Losartan Potassium 25 MG Tablet PO (05:34)
[2019-11-09] MEDS: Umeclidinium Bromide Inhaler 1 PUFF IH (05:35)
[2019-11-09] MEDS: Fluticasone/Salmeterol 232-14 Inhaler 1 PUFF IH ×2 (05:35→17:42)
[2019-11-09 06:55] VITALS: O2SAT 98
[2019-11-09] MEDS: Furosemide 40 MG Tablet PO ×2 (09:24→17:41)
[2019-11-09 09:25] VITALS: PULSE 80; RESP 18; O2SAT 97
[2019-11-09 14:53] VITALS: BP 115/70; PULSE 85; RESP 20; TEMP 36.8; O2SAT 95
[2019-11-09] MEDS: PARoxetine 10 MG Tablet PO (21:00)
[2019-11-10] MEDS: Losartan Potassium 25 MG Tablet PO (05:48)
[2019-11-10] MEDS: Menthol/Lanolin/Calamine/Znox 113 GM Tube 1 APPLIC TOPICAL ×2 (05:49→17:07)
[2019-11-10] MEDS: Acetaminophen 500 MG Tablet 1000 MG PO ×3 (05:49→20:15)
[2019-11-10] MEDS: Fluticasone/Salmeterol 232-14 Inhaler 1 PUFF IH ×2 (05:50→17:06)
[2019-11-10] MEDS: Umeclidinium Bromide Inhaler 1 PUFF IH (05:50)
[2019-11-10] MEDS: Polyethylene Glycol 3350 17 GM PACKET PO (05:55)
[2019-11-10 08:02] VITALS: O2SAT 92
[2019-11-10] MEDS: Furosemide 40 MG Tablet PO ×2 (09:10→17:06)
--- NOTE | 2019-11-10 13:45 | CASEMGMT ---
Social Work Met with pt to discuss DC plans. Pt choosing to discharge 11/12- and therapy agreeable. Gave list of [facility] agencies, choosing [facility]-PT/OT/SN-referral made. Plan: DC 11/12, [facility]-PT/OT/SN Elizabeth Grubbs, social work tax services intern Briseida Andrew , METAL GAUGE MAKER WEB MARKETING ANALYST
[2019-11-10 14:07] VITALS: BP 102/42; PULSE 69; RESP 18; TEMP 37.3; O2SAT 96
--- NOTE | 2019-11-10 14:36 | CASEMGMT ---
Social Work Reviewed and agreed with social work internet marketing analyst documentation on this date. Briseida Andrew, REINSTATEMENT CLERK MANAGER PROCESS
--- NOTE | 2019-11-10 15:33 | NURSING ---
trilogy mask cleansed this shift
[2019-11-10 20:04] VITALS: PULSE 79; O2SAT 97
[2019-11-10] MEDS: PARoxetine 10 MG Tablet PO (20:15)
[2019-11-11] MEDS: Fluticasone/Salmeterol 232-14 Inhaler 1 PUFF IH ×2 (06:26→17:56)
[2019-11-11] MEDS: Umeclidinium Bromide Inhaler 1 PUFF IH (06:27)
[2019-11-11] MEDS: Polyethylene Glycol 3350 17 GM PACKET PO (06:27)
[2019-11-11] MEDS: Losartan Potassium 25 MG Tablet PO (06:33)
[2019-11-11] MEDS: Acetaminophen 500 MG Tablet 1000 MG PO ×3 (06:33→20:37)
[2019-11-11] MEDS: Menthol/Lanolin/Calamine/Znox 113 GM Tube 1 APPLIC TOPICAL ×2 (06:36→17:57)
[2019-11-11 10:00] VITALS: PULSE 81; RESP 18; O2SAT 97
[2019-11-11] MEDS: Furosemide 40 MG Tablet PO ×2 (10:25→17:54)
--- NOTE | 2019-11-11 11:57 | CASEMGMT ---
Social Work and pt changed their mind and do not want HHC in the home at [place]. Educated to risks and benefits. Pt and still decline. Cancelled referral. Briseida Andrew, DATA WAREHOUSING SPECIALIST BUSINESS ANALYST
[2019-11-11 14:02] VITALS: BP 121/67; PULSE 69; RESP 18; TEMP 36.7; O2SAT 98
[2019-11-11] MEDS: PARoxetine 10 MG Tablet PO (20:37)
[2019-11-12] MEDS: Fluticasone/Salmeterol 232-14 Inhaler 1 PUFF IH ×2 (06:03→17:10)
[2019-11-12] MEDS: Umeclidinium Bromide Inhaler 1 PUFF IH (06:04)
[2019-11-12] MEDS: Losartan Potassium 25 MG Tablet PO (06:05)
[2019-11-12] MEDS: Acetaminophen 500 MG Tablet 1000 MG PO ×3 (06:05→20:14)
[2019-11-12] MEDS: Polyethylene Glycol 3350 17 GM PACKET PO (06:05)
[2019-11-12] MEDS: Menthol/Lanolin/Calamine/Znox 113 GM Tube 1 APPLIC TOPICAL ×2 (06:08→17:11)
[2019-11-12 06:50] VITALS: O2SAT 91
[2019-11-12] MEDS: Furosemide 40 MG Tablet PO ×2 (09:46→17:10)
[2019-11-12 15:19] VITALS: BP 104/42; PULSE 63; RESP 18; TEMP 36.8; O2SAT 93
[2019-11-12 17:13] VITALS: BP 122/53; PULSE 67
[2019-11-12] MEDS: PARoxetine 10 MG Tablet PO (20:14)
[2019-11-13] MEDS: Polyethylene Glycol 3350 17 GM PACKET PO (06:39)
[2019-11-13] MEDS: Acetaminophen 500 MG Tablet 1000 MG PO (06:39)
[2019-11-13] MEDS: Fluticasone/Salmeterol 232-14 Inhaler 1 PUFF IH (06:41)
[2019-11-13] MEDS: Losartan Potassium 25 MG Tablet PO (06:41)
[2019-11-13] MEDS: Umeclidinium Bromide Inhaler 1 PUFF IH (06:41)
[2019-11-13] MEDS: Menthol/Lanolin/Calamine/Znox 113 GM Tube 1 APPLIC TOPICAL (06:42)
[2019-11-13] MEDS: Furosemide 40 MG Tablet PO (09:06)
[2019-11-13 09:58] VITALS: BP 115/44; PULSE 71; RESP 18; TEMP 36.9; O2SAT 98
[2019-11-13 10:00] VITALS: PULSE 71; RESP 18; O2SAT 98
--- NOTE | 2019-11-13 15:11 | CASEMGMT ---
Social Work Reviewed and agreed with social work hospital internship documentation on this date. Briseida Andrew, DAY CARE HOME MOTHER LEAD SHOP OPERATOR
--- NOTE | 2019-11-14 13:18 | CASEMGMT ---
Social Work Reviewed and agreed with social work engineer internship documentation on this date. Briseida Andrew, NUTRITION TEACHER ETHYLENE OXIDE PANELBOARD OPERATOR
== END 2019-11-13 12:35 | disposition home or self-care (01) | DRG 292 ==
PROVIDERS: Admitting Provider Family Medicine Geriatric Medicine; PCP Internal Medicine; Referring Provider Family Medicine Geriatric Medicine; Visit Provider Family Medicine Geriatric Medicine
DX: I11.0 Hypertensive heart disease with heart failure (principal); J96.10 Chronic respiratory failure, unspecified whether with hypoxia or hypercapnia; I48.92 Unspecified atrial flutter; I50.33 Acute on chronic diastolic (congestive) heart failure; F41.9 Anxiety disorder, unspecified; I25.2 Old myocardial infarction; I25.10 Atherosclerotic heart disease of native coronary artery without angina pectoris; K21.9 Gastro-esophageal reflux disease without esophagitis; I27.20 Pulmonary hypertension, unspecified; J44.9 Chronic obstructive pulmonary disease, unspecified; G47.30 Sleep apnea, unspecified; Z95.0 Presence of cardiac pacemaker; Z87.891 Personal history of nicotine dependence
CPT/HCPCS: 36415; 71046; 80048; 82962; 85025; 94640; 97110; 97116; 97162; 97165; 97530; 97535; 97802; A4216; J1940

== ENCOUNTER 2019-12-09 16:18 | Inpatient (IN) | payer MEDICARE, OTHER, SELFPAY ==
[2019-12-09] VITALS (29 sets, daily range): BP systolic 56–180; BP diastolic 39–100; PULSE 67–120; RESP 12–30; TEMP 35.4–37.4; O2SAT 9–958; BMI 21.4; BMI 19.2
--- NOTE | 2019-12-09 16:22 | EKG12_ITS ---
Test Reason : SOB Blood Pressure : / mmHG Vent. Rate : 112 BPM Atrial Rate : 112 BPM P-R Int : 000 ms QRS Dur : 156 ms QT Int : 386 ms P-R-T Axes : 106 -88 084 degrees QTc Int : 526 ms Ventricular-paced rhythm Abnormal ECG Confirmed by MAXIME SARGENT ([id number]), health editor ADDIS VALENCIA ([id number]) on 12/11/2019 3:05:13 PM Referred By: [facility] Confirmed By:MAXIME SARGENT
--- NOTE | 2019-12-09 16:37 | ED.VISSUMM ---
- ER Visit Summary Date of Service: 12/09/19 Chief Complaint: Shortness of breath History of Present Illness: The patient is a 84 M presenting with shortness of breath. This started today. Patient had a low pulse ox at the skilled nursing. His sat was in the 70s. It went up to the 80s on nonrebreather mask. He has history of emphysema, CHF, remote history of lung cancer. He is speaking in one-word sentences on arrival. He denies chest pain. Physical Examination: Vitals are stable. Patient is afebrile. Alert no acute distress. HEENT exam dry mucous membranes Neck is supple. Lungs are tachypneic, retractions, accessory muscle use Heart is regular rate and rhythm. Abdomen is soft nontender nondistended. Extremities are unremarkable. Skin is warm and dry. No focal neurologic deficit. Remainder of exam is unremarkable. Emergency Department Course and Treatment: EKG is paced rhythm rate of 112. He was started on BiPAP on arrival. He was given albuterol, Atrovent aerosols. He had no improvement on BiPAP. Discussed with the patient and his by phone. They both agree that he is a full code and he would like to be on a ventilator if necessary. He was intubated using RSI, succinylcholine, etomidate. 7.5 ET tube was placed thru the cords using glidoscope. Equal breath sounds bilaterally. Chest x-ray shows Stable significant COPD changes. Worsening left lower lobe infiltrate likely pneumonia, atypical viral pneumonia cannot be excluded Placement of endotracheal tube and orogastric tubes. Stable small loculated right pleural effusion. Healing subacute right rib fractures, stable osteopenia stable mild multilevel compression fractures lower to mid thoracic spine and upper lumbar spine. CBC shows hemoglobin 11.6. Chemistries show sodium 132, glucose 211. Troponin 0.298. BNP 296.5. Lactic acid 2.2. After starting propofol patient became hypotensive. This was discontinued. He was given IV fluids with improvement of his blood pressure. He was started on Versed, fentanyl drip for sedation. He was given Solu-Medrol and Levaquin IV. COVID testing was approved per [facility] and is pending. Blood cultures were sent. Discussed with hospitalist for admission. Disposition: Admission Impression: Respiratory failure, COPD, pneumonia, intubation by ED physician This note was generated with [email or web address] dictation software. It may contain incorrect words, spelling, and punctuation that were not noted in review of the chart prior to signing ED Disposition - Plan for ED Patient:
[2019-12-09 16:43] LABS: Absolute Lymphocyte Count 1.21 X10^3/uL (0.83-4.51); Absolute Neutrophil Count 7.9 X10^3/uL (2.0-7.7); Basophil# 0.05 X10^3/uL; Basophil% 0.5 % (0-1); Hematocrit 39.7 % (40-54); Hemoglobin 11.6 g/dL (13.0-16.5); Lymphocyte # 1.21 X10^3/ul (4.0); Lymphocyte % 12.1 % (19-41); Mean Corp Hgb Conc 29.2 g/dL (32-36); Mean Corpuscular Hgb 27.1 pg (27.0-32.0); Mean Corpuscular Volume 92.8 fL (80-94); Mean Platelet Vol. 9.9 fl (6.2-12.0); Monocyte# 0.83 X10^3/uL; Monocyte% 8.3 % (0-10); NRBC Flagged by Analyzer 0 % (0-5); Neutrophil # 7.89 X10^3/uL (2.7-7.7); Neutrophil % 78.7 % (47-70); POSITIVE MORPHOLOGY YES; Platelet Count 253 K/mm3 (150-450); RBC Distribution Width CV 15.9 % (11.6-14.6); RBC Distribution Width SD 54.7 fl (35.1-43.9); Red Blood Count 4.28 M/mm3 (4.6-6.2)
[2019-12-09] MEDS: Ipratropium/Albuterol Sulfate 3 ML AMPUL.NEB INHALATION ×2 (16:46→22:30)
[2019-12-09] MEDS: Albuterol 2.5 MG/3 ML VIAL.NEB. INHALATION (16:48)
[2019-12-09 16:49] LABS: Differential Indicated SCAN CRITERIA MET
[2019-12-09 17:05] LABS: Anion Gap 1 (5-15); BUN 18 mg/dL (7-18); BUN/Creat Ratio 24.5 RATIO (10-20); Calcium,Total 9.4 mg/dL (8.5-10.1); Chloride 96 mmol/L (98-107); Creatinine, Serum 0.73 mg/dL (0.70-1.30); EST Glomerular Filtration Rate 108 mL/min (>60); Est Glom Filt Rate - Afr Amer 131 mL/min (>60); Estimated Creatinine Clearance 50.51 ml/min; Glucose 211 mg/dL (74-106); Potassium 4.8 mmol/L (3.5-5.1); Sodium Level 132 mmol/L (136-145)
[2019-12-09 17:09] LABS: Lactic Acid 2.2 mmol/L (0.4-1.9)
[2019-12-09] MEDS: Etomidate 20 MG/10 ML Vial IV (17:21)
[2019-12-09 17:27] LABS: Platelet Estimate ADEQUATE (ADEQ)
[2019-12-09 17:28] LABS: Anisocytosis RARE; Macrocytosis RARE
[2019-12-09] MEDS: Propofol 10MG/Ml 1,000 MG/100 ML Bottle 3.8 MG CONT INF (17:34)
[2019-12-09 17:39] LABS: BNP,B-Type NATRIURETIC PEPTIDE 296.5 pg/mL (0-100)
--- NOTE | 2019-12-09 17:50 | RAD_ITS ---
STUDY: X-RAY CHEST REASON FOR EXAM: Male, 84 years old. ETT placement, OG tube placement TECHNIQUE: Portable chest COMPARISON: 11/02/2019 FINDINGS: There are stable significant COPD changes. There is worsening left lower lobe infiltrate. There are subacute healing right lower rib fractures. This been placement of an endotracheal tube tube tip is 2.9 cm proximal to nicole. There is stable cardiac pacemaker. There is an orogastric tube with the tip extending into the stomach. Some of side holes are near the GE junction. Placement centimeters recommended. There is stable small loculated right pleural effusion. Normal size heart. Normal mediastinum and rafia. Normal visualized pulmonary arteries. Normal visualized aortic arch and descending thoracic aorta. There is stable mild multilevel compression fractures lower to mid thoracic spine and upper lumbar spine. There is no demonstrated abnormality of the visualized soft tissue structures of the upper abdomen. RAD/Chest 1 View (Portable) IMPRESSION: Stable significant COPD changes Worsening left lower lobe infiltrate likely pneumonia, atypical viral pneumonia cannot be excluded Placement of endotracheal tube and orogastric tubes as above Stable small loculated right pleural effusion Healing subacute right rib fractures, stable osteopenia stable mild multilevel compression fractures lower to mid thoracic spine and upper lumbar spine. Electronically Signed: Bairon Jimenez, at 18:07 EDT Tel , Service support ,
--- NOTE | 2019-12-09 18:01 | PCM.HP.STD ---
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 The patient is a 84 year old M with past medical history as mentioned above presented to the emergency room because of shortness of breath. At this time, patient is intubated, sedated and on mechanical ventilation and not able to provide any history. According to the patient's chart and ER physician, symptoms started today with sudden onset increasing shortness of breath and according to the paramedics, pulse ox was 73% on 6 L of oxygen at home. ER physician mentioned that patient upon arrival was dyspneic, tachypneic and was speaking in one-word sentences. No reported chest pain. This patient does have a history of COPD and chronic respiratory failure with frequent admissions for COPD exacerbation. Normally, he is on oxygen at home at 2 to 3 L. Had a history of severe stage III COPD and chronic respiratory failure with frequent admissions, has been on oxygen at home and most recent admission was on October,. He has history of paroxysmal atrial flutter with Mobitz type II second-degree AV block status post pacemaker. He had a history of hypertension which has been under control with losartan, Lasix and metolazone. At this time, patient is on mechanical ventilation, afebrile, heart rate has been around 100, blood pressure is maintained at this time, pulse ox is 94% on mechanical ventilation. Routine blood work was remarkable for hemoglobin of 11.6 g/dL, sodium of 132, blood glucose of 211. Lactic acid was 2.2. EKG revealed paced rhythm, no acute changes. Troponin was 0.298. BNP was 296. Chest x-ray revealed emphysematous changes bilaterally, worsening left lower lobe infiltrate, small right pleural effusion, fibrotic changes on the right base, no significant change from previous chest x-rays. BG is pending. He is being admitted for acute on chronic respiratory failure likely due to COPD exacerbation and suspected healthcare associated pneumonia and also suspected COVID-19. Past Medical History Past Medical History (Chronic Problems): Chronic Problems (Last Updated 12/09/19 @ 18:[address] 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) FEV1 44% of predicted on PFT 12/15/2016 at [facility] Diastolic dysfunction (Chronic) 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) Essential hypertension (Chronic) Paroxysmal atrial flutter (Chronic) Non-rheumatic tricuspid valve insufficiency (Chronic) Aortic valve stenosis, nonrheumatic (Chronic) 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) I44.1 Chronic respiratory failure (Chronic) J96.10 Conduction disorder of the heart (Chronic) I45.9 Pulmonary hypertension (Chronic) I27.20 GERD (gastroesophageal reflux disease) (Chronic) K21.9 Bullous emphysema (Chronic) J43.9 Lung cancer (Inactive) C34.90 Allergies ampicillin Allergy (Verified 12/09/19 16:20) Anaphylaxis azithromycin Allergy (Verified 12/09/19 16:20) Rash codeine Allergy (Verified 12/09/19 16:20) Rash penicillin G Allergy (Verified 12/09/19 16:20) Rash Sulfa (Sulfonamide Antibiotics) Allergy (Verified 12/09/19 16:20) Rash sulfamethoxazole [From Bactrim] Allergy (Verified 12/09/19 16:20) Rash trimethoprim [From Bactrim] Allergy (Verified 12/09/19 16:20) Rash Home Medications: Ambulatory Orders Medication Instructions Recorded Losartan Potassium 25 mg PO DAILY #0 06/12/17 Albuterol Aerosols [Ventolin 2.5 mg INHALATION Q4H PRN PRN #90 07/17/19 Aerosols] vial.neb. Fluticasone/Umeclidin/Vilanter 1 inh INHALATION DAILY 10/25/19 [Trelegy Ellipta 100-62.5-25] Nitroglycerin (INPATIENT USE) 0.4 mg SUBLINGUAL Q5M PRN tab.subl 10/25/19 [Nitrostat] Potassium Chloride 10 meq PO DAILY 10/25/19 Acetaminophen [Tylenol] 1,000 mg PO Q8 tab 11/07/19 Furosemide [Lasix] 40 mg PO BID@1000,1800 #60 tab 11/07/19 Menthol/Lanolin/Calamine/Znox 1 applic TOPICAL BID tube 11/07/19 [Calmoseptine Ointment] Paroxetine [Paxil] 10 mg PO QHS #30 tab 11/07/19 albuterol sulfate 90 mcg/actuation 2 puff INHALATION Q6H PRN #18 g 11/25/19 aerosol inhaler Ipratropium [Atrovent] 0.25 mg INHALATION TID 12/09/19 Metolazone 2.5 mg PO QWEEK 12/09/19 Surgical History: Surgical History (Last Updated 12/09/19 @ 18:[address] Nasrin Vences MD) History of permanent cardiac pacemaker placement (Chronic) Z95.0 06/11/17 History of appendectomy (Inactive) Z98.890, Z90.49 Hx of cataract surgery (Inactive) Z98.49 Surgical History: appendectomy, cataract, pacemaker implantation Psychiatric History: Anxiety, Depression Smoking Status: Former smoker Alcohol: None Drugs: None - *Family History Paternal Family History: Family History (Last Reviewed 12/09/19 @ 18:[address] Nasrin Vences MD) Brother Diabetes Sister Diabetes Lung cancer History Items: Heart Disease - Father with history of heart disease, at age 96. Offspring Family History: Family History (Last Reviewed 12/09/19 @ 18:[address] Nasrin Vences MD) Brother Diabetes Sister Diabetes Lung cancer History Items: COPD Sibling Family History: Family History (Last Reviewed 12/09/19 @ 18:[address] Nasrin Vences MD) Brother Diabetes Sister Diabetes Lung cancer History Items: COPD, Diabetes, Heart Disease Maternal Family History: Family History (Last Reviewed 12/09/19 @ 18:[address] Nasrin Vences MD) Brother Diabetes Sister Diabetes Lung cancer History Items: Heart Disease, - - osteoporosis Review of Systems Constitutional: Reports: - - Unobtainable, patient is sedated and intubated. Eyes: Reports: - - Unobtainable, patient is sedated and intubated. HEENT: Reports: - - Unobtainable, patient is sedated and intubated. Cardiovascular: Reports: - - Unobtainable, patient is sedated and intubated. Respiratory: Reports: - - Unobtainable, patient is sedated and intubated. Gastrointestinal: Reports: - - Unobtainable, patient is sedated and intubated. Genitourinary: Reports: - - Unobtainable, patient is sedated and intubated. Musculoskeletal: Reports: - - Unobtainable, patient is sedated and intubated. Skin: Reports: - - Unobtainable, patient is sedated and intubated. Neurological: Reports: - - Unobtainable, patient is sedated and intubated. Psychiatric: Reports: - - Unobtainable, patient is sedated and intubated. VTE Information - Inpt Only VTE Present on Admission: No VTE Mechan Device Prophylaxis: None VTE Pharm Prophylaxis ordered?: Yes - Physical Exam Vitals/I&O's: Vital Signs Temp Pulse Resp BP Pulse Ox 97.5 F L 93 14 110/55 L 94 12/09/19 17:34 12/09/19 17:36 12/09/19 17:36 12/09/19 17:36 12/09/19 17:36 Oxygen Delivery Method Mechanical Ventilator Weight: 140 lb 10.479 oz Body Mass Index (BMI) 21.4 General: - - Intubated, sedated, on mechanical ventilation. HEENT: Atraumatic, PERRLA, Normocephalic Oral: Moist Mucosa, No Gingival or Mucosal Lesions/ Ulcerations Neck: Supple, No JVD, Negative Carotid Bruits, Trachea Midline, Thyroid Normal Size and Texture Lungs: No rales, Diminished, Rhonchi, Short of Breath, - - Decreased breath sounds bilateral, bilateral rhonchi. Cardiovascular: Regular rate, Regular Rhythm, Normal S1, Normal S2, PMI Normal Abdomen: Bowel Sounds Present, Soft, Non Tender, Non-Distended, No Hepato-splenomegaly Extremities: No clubbing, No cyanosis, No edema Skin: No rashes, No breakdown Lymphatic: No Cervical, Supraclavicular, or Inguinal Adenopathy Neurological: Cranial nerves II-XII grossly intact, - - Unable to assess power, patient is sedated. Psych/Mental Status: - - Unable to assess, patient is sedated. Laboratory Results 12/09/19 16:25: WBC 10.0, RBC 4.28 L, Hgb 11.6 L, Hct 39.7 L, MCV 92.8, MCH 27.1, MCHC 29.2 L, RDW Std Deviation 54.7 H, RDW Coeff of Earline 15.9 H, Plt Count 253, MPV 9.9, Immature Gran % (Auto) 0.400, Neut % (Auto) 78.7 H, Lymph % (Auto) 12.1 L, Miller % (Auto) 8.3, Eos % (Auto) 0.0, Baso % (Auto) 0.5, Absolute Neuts (auto) 7.9 H, Absolute Lymphs (auto) 1.21, Nucleated RBC % 0, Platelet Estimate ADEQUATE, Anisocytosis RARE, Macrocytosis RARE 12/09/19 16:25: Sodium 132 L, Potassium 4.8, Chloride 96 L, Carbon Dioxide 35.0 H, Anion Gap 1 L, BUN 18, Creatinine 0.73, Estim Creat Clear Calc 50.51, Est GFR (MDRD) Af Amer 131, Est GFR (MDRD) Non-Af 108, BUN/Creatinine Ratio 24.5 H, Glucose 211 H, Calcium 9.4, Troponin I 0.298 H 12/09/19 16:25: Lactic Acid 2.2 H* 12/09/19 16:25: B-Natriuretic Peptide 296.5 H Clinical Impression(s) from Imaging Studies Chest X-Ray 12/09/19 17:50 IMPRESSION: Stable significant COPD changes Worsening left lower lobe infiltrate likely pneumonia, atypical viral pneumonia cannot be excluded Placement of endotracheal tube and orogastric tubes as above Stable small loculated right pleural effusion Healing subacute right rib fractures, stable osteopenia stable mild multilevel compression fractures lower to mid thoracic spine and upper lumbar spine. Electronically Signed: Bairon Jimenez, at 18:07 EDT Tel , Service support , Current Medications Propofol (Diprivan) 1,000 mg in 100 mls @ 3.828 mls/hr CONT INF .Q12H WEI; Protocol Last Admin: 12/09/19 17:34 Dose: 10 mcg/kg/min, 3.8 mls/hr Documented by: Sodium Chloride () 1,000 mls @ 999 mls/hr IV .Q1H1M WEI Stop: 12/09/19 20:00 Levofloxacin (Levaquin Iv) 750 mg in 150 mls @ 100 mls/hr IV X1 ONE Stop: 12/09/19 19:26 Assessment/Plan This is an 84 years old male patient presented to the emergency room because of shortness of breath, was dyspneic and tachypneic, started on BiPAP without improvement, was intubated and started mechanical ventilation and he was found to have acute on chronic respiratory failure attributed to acute COPD exacerbation and suspected healthcare associated pneumonia with severe sepsis and also found to have abnormal cardiac enzymes. #1 acute on chronic respiratory failure: ABG is pending at this time. It is attributed to acute COPD exacerbation and suspected healthcare associated pneumonia. Chest x-ray reviewed as above. Plan: Admit to intensive care unit, critical care monitoring, complete bedrest, blood culture, start IV Zosyn and Azactam, bronchodilators, repeat CBC and BMP tomorrow morning, check pro time and INR, critical care consult, gentle IV fluids, PT OT evaluation and treatment when appropriate. #2 suspected healthcare associated pneumonia/severe sepsis: Chest x-ray reviewed as above. Plan: Blood culture, start IV vancomycin and Azactam as above, bronchodilators. #3 abnormal cardiac enzymes: Without EKG changes. Plan: Cardiac monitoring, serial cardiac enzymes. She had 2D echocardiogram on September, revealed ejection fraction 55%, stage I diastolic function and moderate pulmonary hypertension. #4 severe COPD/chronic respiratory failure: On home oxygen. Plan as above. #5 chronic diastolic CHF: At this time, seem to be stable, compensated. Patient will be receiving IV fluids cautiously for severe sepsis. Plan to hold Lasix, losartan and metolazone, close monitoring of volume status. 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 EKG reviewed, revealed paced rhythm, heart rate has been stable. He is not on anticoagulation. #7 hypertension: Blood pressure stable at this time, hold losartan, Lasix and metolazone. #8 GERD: Start Pepcid twice daily IV. #9 CODE STATUS: Full code at this time. This was discussed with the patient's by the ER physician. Patient was intubated and started on mechanical ventilation in the ED. When I saw the patient, there was no family at the bedside. #10 DVT prophylaxis: Subcu Lovenox. This note was generated with [employer] dictation software. It may contain incorrect words, spelling, and punctuation that were not noted in checking the note before signing. Inpatient E&M: 97576 Init Hosp L3
[2019-12-09] MEDS: 0.9% Normal Saline 1,000 ML 999 ML IV ×3 (18:07→23:47)
[2019-12-09] MEDS: levoFLOXacin IV 750 MG/150 ML BAG 100 MG IV (18:11)
[2019-12-09] MEDS: MethylPREDNISolone 125 MG/2 ML Vial IV (18:11)
[2019-12-09] MEDS: fentaNYL drip 100 ML 2.5 MCG IV (18:34)
[2019-12-09 18:50] LABS: Base Excess 4 mmol/L (-2 to +2); Bicarbonate 32.5 mmol/L (22-26); PO2 328 mmHG (75-100); SO2 100 % (95-99); Total Carbon Dioxide 35 mmol/L; pCO2 87.6 mmHg (35-45); pH 7.18 (7.35-7.45)
[2019-12-09] MEDS: 0.9% Normal Saline 1,000 ML 75 ML IV (19:38)
[2019-12-09 19:46] LABS: Blood Gas Specimen Type ART; FI02 100; Mode A-C; PEEP 7; RR 14; SITE L RADIAL; Vt 450
[2019-12-09 19:47] LABS: Time Given 1840
--- NOTE | 2019-12-09 19:47 | CPS ---
critical values handed to dr lauren
[2019-12-09 20:19] LABS: International Normalized Ratio 1.1; Prothrombin Time (Protime)PT. 13.2 SECONDS (11.7-14.9)
[2019-12-09 20:39] LABS: Reflex Lactate? Y
[2019-12-09] MEDS: Famotidine 200 MG/20 ML MDV 20 MG in 0.9% Normal Saline (Pres. free 8 ML 300 MG IV (21:14)
[2019-12-09] MEDS: 0.9% Saline Lock 10 ML Syringe IV (21:14)
[2019-12-09 21:17] LABS: Lactic Acid 2.3 mmol/L (0.4-1.9)
[2019-12-09] MEDS: Chlorhexidine 15 ML PO (21:17)
--- NOTE | 2019-12-09 21:44 | PCM.RX.CS ---
Consult Pharmacy has been consulted to manage selected antiobiotic: Vancomycin Type of Consult: New start Suspected Infection: Sepsis, Pneumonia Prior Doses of Antibiotics Received/Current Regimen: Medications Vancomycin HCl 1,500 mg/ (Sodium Chloride) 530 mls @ 250 mls/hr IV X1 ONE Stop: 12/09/19 22:37 Last Admin: 12/09/19 21:23 Dose: 250 mls/hr Vancomycin HCl 750 mg/ Sodium (Chloride) 265 mls @ 250 mls/hr IV Q12H WEI Labs: Sodium 132 mmol/L (136-145) L 12/09/19 16:25 Potassium 4.8 mmol/L (3.5-5.1) 12/09/19 16:25 Chloride 96 mmol/L (98-107) L 12/09/19 16:25 Carbon Dioxide 35.0 mmol/L (21.0-32.0) H 12/09/19 16:25 Anion Gap 1 (5-15) L 12/09/19 16:25 BUN 18 mg/dL (7-18) 12/09/19 16:25 Creatinine 0.73 mg/dL (0.70-1.30) 12/09/19 16:25 Est GFR (MDRD) Af Amer 131 mL/min (>60) 12/09/19 16:25 Est GFR (MDRD) Non-Af 108 mL/min (>60) 12/09/19 16:25 BUN/Creatinine Ratio 24.5 RATIO (10-20) H 12/09/19 16:25 Glucose 211 mg/dL (74-106) H 12/09/19 16:25 Weight used for dosin.5 kg Estimated Creatinine Clearance: 61.8 Goal Trough: 15-20 mcg/mL Pharmacy Plan for Drug Dosing: Pharmacy Service will continue to monitor and adjust dosing as required. Follow-Up Labs: Trough Vancomycin Labs to be done on [date and time ordered]: 12/11/19 @0900
[2019-12-10] VITALS (47 sets, daily range): BP systolic 92–134; BP diastolic 45–68; PULSE 20–106; RESP 14–27; TEMP 37.2–38.1; O2SAT 88–98
[2019-12-10] MEDS: TITRATION PARAMETER CHANGE 1 EACH IV (00:48)
[2019-12-10 02:09] LABS: M R Staph aureus DNA By PCR Negative (Negative); Probe Check PASS; Specimen Processing Control PASS
[2019-12-10] MEDS: Ipratropium/Albuterol Sulfate 3 ML AMPUL.NEB INHALATION ×6 (02:40→21:52)
[2019-12-10 03:57] LABS: Absolute Lymphocyte Count 0.31 X10^3/uL (0.83-4.51); Absolute Neutrophil Count 5.4 X10^3/uL (2.0-7.7); Hematocrit 31.3 % (40-54); Hemoglobin 9.3 g/dL (13.0-16.5); Lymphocyte # 0.31 X10^3/ul (4.0); Mean Corp Hgb Conc 29.7 g/dL (32-36); Mean Platelet Vol. 9.9 fl (6.2-12.0); Monocyte# 0.47 X10^3/uL; Monocyte% 7.6 % (0-10); NRBC Flagged by Analyzer 0 % (0-5); Neutrophil # 5.35 X10^3/uL (2.7-7.7); Neutrophil % 87.1 % (47-70); POSITIVE DIFFERENTIAL YES; POSITIVE MORPHOLOGY YES; Platelet Count 196 K/mm3 (150-450); RBC Distribution Width CV 15.9 % (11.6-14.6); RBC Distribution Width SD 52.9 fl (35.1-43.9); Red Blood Count 3.44 M/mm3 (4.6-6.2); White Blood Count 6.2 K/mm3 (4.4-11.0)
[2019-12-10 04:06] LABS: Anion Gap 5 (5-15); BUN 20 mg/dL (7-18); BUN/Creat Ratio 29.1 RATIO (10-20); Calcium,Total 8.3 mg/dL (8.5-10.1); Chloride 101 mmol/L (98-107); Creatinine, Serum 0.69 mg/dL (0.70-1.30); EST Glomerular Filtration Rate 117 mL/min (>60); Est Glom Filt Rate - Afr Amer 142 mL/min (>60); Estimated Creatinine Clearance 50.75 ml/min; Glucose 175 mg/dL (74-106); Potassium 4.6 mmol/L (3.5-5.1); Sodium Level 135 mmol/L (136-145)
[2019-12-10 04:50] LABS: Differential Indicated SCAN CRITERIA MET
[2019-12-10 04:51] LABS: Anisocytosis 1+; Hypochromasia 1+; Platelet Estimate ADEQUATE (ADEQ)
--- NOTE | 2019-12-10 06:10 | CON.PCM_ITS ---
Reason for Consult Date of Consultation: 12/10/19 Reason for Consultation: Respiratory failure History of Present Illness: The patient is an 84-year-old male, with a history as outlined below, who presented to the emergency department on December 08 with complaints of shortness of breath. 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 He was less seen by me in the pulmonary medicine clinic in September 2019. Pulmonary function studies last completed in 2016 revealed an FEV1 of 44%. At that last office visit, the patient was started on a triple therapy inhaler regimen with Trelegy Ellipta. In addition to the aforementioned, the patient has a smoking history that includes 1 pack of cigarettes daily times 5 years, which was then followed by cigar consumption of 30 cigars weekly from 1962 through 2008. The patient has been on supplemental oxygen since January 2017. He has a history of non-small cell lung cancer, diagnosed through the [facility], for which he underwent radiation treatment. OUTSIDE MEDICAL RECORDS FROM [facility]: Pulmonary medicine office visit on August 29, [address] Li: Reports that patient is using Anoro daily. Also reported worsening dysphagia with concern that patient may need to be seen again by GI for potential EGD and dilation. The patient does have a history of lung cancer of the right lower lobe (T2N0M0), s/p SBRT completed 10/19/2015. Follow-up PET scan from June 2017 revealed r esolution of the right lower lobe mass. CT chest from June 2018 revealed no evidence of recurrence. CT chest without contrast dated June 2018 revealed significant bilateral emphysema, stable calcified biapical scarring, most pronounced in the right apex. There was demonstration of an ill-defined region of consolidation in the right lung base with radiating bands of scar/fibrosis and associated volume loss, consistent with post radiation fibrosis. There was a stable appearing 5 mm nodule in the left lower lobe. 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 The patient was just recently admitted to the hospital October 21- with acute hypoxemic respiratory failure secondary to acute on chronic diastolic heart failure. Post discharge, the patient went to the transitional care unit, with where he remained until November 06. On presentation to the emergency department, the patient was noted to be afebrile, but was tachycardic and tachypneic. He was initially placed on BiPAP therapy. Laboratory evaluation revealed a normal white blood cell count. Coagulation profile was within normal limits. Chemistry profile was notable for a bicarbonate of 35 and a mildly elevated lactate to 2.3. Troponin was increased to 0.318. BNP was mildly increased to 296. MRSA screen was negative. Attempts at noninvasive positive pressure ventilatory support was unsuccessful and the patient eventually required intubation. Chest x-ray revealed chronic interstitial lung changes with a left lower lobe infiltrate. The patient was subsequently transferred to the medical intensive care unit for further management. Past Medical History Past Medical History (Chronic Problems): Chronic Problems (Last Updated 12/09/19 @ 18:[address] 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) FEV1 44% of predicted on PFT 12/15/2016 at [facility] Diastolic dysfunction (Chronic) 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) Essential hypertension (Chronic) Paroxysmal atrial flutter (Chronic) Non-rheumatic tricuspid valve insufficiency (Chronic) Aortic valve stenosis, nonrheumatic (Chronic) 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) I44.1 Chronic respiratory failure (Chronic) J96.10 Conduction disorder of the heart (Chronic) I45.9 Pulmonary hypertension (Chronic) I27.20 GERD (gastroesophageal reflux disease) (Chronic) K21.9 Bullous emphysema (Chronic) J43.9 Lung cancer (Inactive) C34.90 Allergies ampicillin Allergy (Verified 12/09/19 16:20) Anaphylaxis azithromycin Allergy (Verified 12/09/19 16:20) Rash codeine Allergy (Verified 12/09/19 16:20) Rash penicillin G Allergy (Verified 12/09/19 16:20) Rash Sulfa (Sulfonamide Antibiotics) Allergy (Verified 12/09/19 16:20) Rash sulfamethoxazole [From Bactrim] Allergy (Verified 12/09/19 16:20) Rash trimethoprim [From Bactrim] Allergy (Verified 12/09/19 16:20) Rash Home Medications: Ambulatory Orders Medication Instructions Recorded Losartan Potassium 25 mg PO DAILY #0 06/12/17 Albuterol Aerosols [Ventolin 2.5 mg INHALATION Q4H PRN PRN #90 07/17/19 Aerosols] vial.neb. Fluticasone/Umeclidin/Vilanter 1 inh INHALATION DAILY 10/25/19 [Trelegy Ellipta 100-62.5-25] Nitroglycerin (INPATIENT USE) 0.4 mg SUBLINGUAL Q5M PRN tab.subl 10/25/19 [Nitrostat] Potassium Chloride 10 meq PO DAILY 10/25/19 Acetaminophen [Tylenol] 1,000 mg PO Q8 tab 11/07/19 Furosemide [Lasix] 40 mg PO BID@1000,1800 #60 tab 11/07/19 Menthol/Lanolin/Calamine/Znox 1 applic TOPICAL BID tube 11/07/19 [Calmoseptine Ointment] Paroxetine [Paxil] 10 mg PO QHS #30 tab 11/07/19 albuterol sulfate 90 mcg/actuation 2 puff INHALATION Q6H PRN #18 g 11/25/19 aerosol inhaler Ipratropium [Atrovent] 0.25 mg INHALATION TID 12/09/19 Metolazone 2.5 mg PO QWEEK 12/09/19 Surgical History: Surgical History (Last Updated 12/09/19 @ 18:[address] Nasrin Vences MD) History of permanent cardiac pacemaker placement (Chronic) Z95.0 06/11/17 History of appendectomy (Inactive) Z98.890, Z90.49 Hx of cataract surgery (Inactive) Z98.49 Surgical History: appendectomy, cataract, pacemaker implantation Psychiatric History: Anxiety, Depression Smoking Status: Former smoker Alcohol: None Drugs: None - *Family History Paternal Family History: Family History (Last Reviewed 12/09/19 @ 18:[address] Nasrin Vences MD) Brother Diabetes Sister Diabetes Lung cancer History Items: Heart Disease - Father with history of heart disease, at age 96. Offspring Family History: Family History (Last Reviewed 12/09/19 @ 18:[address] Nasrin Vences MD) Brother Diabetes Sister Diabetes Lung cancer History Items: COPD Sibling Family History: Family History (Last Reviewed 12/09/19 @ 18:[address] Nasrin Vences MD) Brother Diabetes Sister Diabetes Lung cancer History Items: COPD, Diabetes, Heart Disease Maternal Family History: Family History (Last Reviewed 12/09/19 @ 18:[address] Nasrin Vences MD) Brother Diabetes Sister Diabetes Lung cancer History Items: Heart Disease, - - osteoporosis Review of Systems Unable to obtain accurate/complete ROS d/t: Due to current intubation and mechanical ventilation status Objective: The patient's most recent lab work, culture data and imaging studies have all been personally reviewed. - Physical Exam Vitals/I&O's: Vital Signs Temp Pulse Resp BP Pulse Ox 100.5 F H 83 23 H 111/52 L 97 12/10/19 06:00 12/10/19 06:00 12/10/19 06:00 12/10/19 06:00 12/10/19 06:00 Oxygen Delivery Method Mechanical Ventilator Weight: 141 lb 5.061 oz Body Mass Index (BMI) 19.2 Intake and Output for Last 24 Hours 12/08/19 12/09/19 12/10/19 23:59 23:59 23:59 Intake Total 1857.08 / 1927.11 2104.33 / 2104.33 Output Total 330 / 330 Balance 1857.08 / 1727.11 1774.33 / 1774.33 General: - - Intubated, minimally sedated and mechanically ventilated. No ventilator dyssynchrony noted. HEENT: Atraumatic, PERRLA, Normocephalic Oral: No Gingival or Mucosal Lesions/ Ulcerations, - - Endotracheal and OG tubes in place Neck: Supple, No Nodes, Trachea Midline Lungs: No rhonchi, No wheeze, No rales, Diminished Cardiovascular: Regular rate, Regular Rhythm, - - Paced rhythm on telemetry Abdomen: Bowel Sounds Present, Soft, Non Tender Extremities: No clubbing, No cyanosis, Edema - Trace lower extremity Skin: No breakdown Musculoskeletal: No Muscle Wasting Lymphatic: No Cervical, Supraclavicular, or Inguinal Adenopathy Neurological: - - No focal neurological deficits. Currently alert and following commands appropriately. Labs (Last 48 Hours) 12/09/19 12/09/19 12/09/19 16:25 16:25 16:25 WBC 10.0 RBC 4.28 L Hgb 11.6 L Hct 39.7 L MCV 92.8 MCH 27.1 MCHC 29.2 L RDW Std Deviation 54.7 H RDW Coeff of Earline 15.9 H Plt Count 253 MPV 9.9 Immature Gran % (Auto) 0.400 Neut % (Auto) 78.7 H Lymph % (Auto) 12.1 L Union % (Auto) 8.3 Eos % (Auto) 0.0 Baso % (Auto) 0.5 Absolute Neuts (auto) 7.9 H Absolute Lymphs (auto) 1.21 Nucleated RBC % 0 Differential Comment Platelet Estimate ADEQUATE Hypochromasia Anisocytosis RARE Macrocytosis RARE PT INR Specimen Type Sample Site pH Bicarbonate Actual POC Total CO2 Base Excess O2 Saturation O2 % ABG pCO2 ABG pO2 Mo Test Respiration Rate Vent Mode Tidal Volume POC PEEP Blood Gas Notified Whom Blood Gas Notified Time Sodium 132 L Potassium 4.8 Chloride 96 L Carbon Dioxide 35.0 H Anion Gap 1 L BUN 18 Creatinine 0.73 Estim Creat Clear Calc 50.51 Est GFR (MDRD) Af Amer 131 Est GFR (MDRD) Non-Af 108 BUN/Creatinine Ratio 24.5 H Glucose 211 H Hemoglobin A1c Lactic Acid 2.2 H* Calcium 9.4 Troponin I 0.298 H B-Natriuretic Peptide COVID-19 (SKINNY) MRSA (PCR) 12/09/19 12/09/19 12/09/19 16:25 18:36 18:57 WBC RBC Hgb Hct MCV MCH MCHC RDW Std Deviation RDW Coeff of Earline Plt Count MPV Immature Gran % (Auto) Neut % (Auto) Lymph % (Auto) Union % (Auto) Eos % (Auto) Baso % (Auto) Absolute Neuts (auto) Absolute Lymphs (auto) Nucleated RBC % Differential Comment Platelet Estimate Hypochromasia Anisocytosis Macrocytosis PT INR Specimen Type ART Sample Site L RADIAL pH 7.18 L* Bicarbonate Actual 32.5 H POC Total CO2 35 Base Excess 4 H O2 Saturation 100 H O2 % 100 ABG pCO2 87.6 H* ABG pO2 328 H* Mo Test NA Respiration Rate 14 Vent Mode A-C Tidal Volume 450 POC PEEP 7 Blood Gas Notified Whom ED MD Blood Gas Notified Time 1840 Sodium Potassium Chloride Carbon Dioxide Anion Gap BUN Creatinine Estim Creat Clear Calc Est GFR (MDRD) Af Amer Est GFR (MDRD) Non-Af BUN/Creatinine Ratio Glucose Hemoglobin A1c Lactic Acid Calcium Troponin I B-Natriuretic Peptide 296.5 H COVID-19 (SKINNY) Pending MRSA (PCR) 12/09/19 12/09/19 12/09/19 19:15 19:50 19:50 WBC RBC Hgb Hct MCV MCH MCHC RDW Std Deviation RDW Coeff of Earline Plt Count MPV Immature Gran % (Auto) Neut % (Auto) Lymph % (Auto) Union % (Auto) Eos % (Auto) Baso % (Auto) Absolute Neuts (auto) Absolute Lymphs (auto) Nucleated RBC % Differential Comment Platelet Estimate Hypochromasia Anisocytosis Macrocytosis PT 13.2 INR 1.1 Specimen Type Sample Site pH Bicarbonate Actual POC Total CO2 Base Excess O2 Saturation O2 % ABG pCO2 ABG pO2 Mo Test Respiration Rate Vent Mode Tidal Volume POC PEEP Blood Gas Notified Whom Blood Gas Notified Time Sodium Potassium Chloride Carbon Dioxide Anion Gap BUN Creatinine Estim Creat Clear Calc Est GFR (MDRD) Af Amer Est GFR (MDRD) Non-Af BUN/Creatinine Ratio Glucose Hemoglobin A1c 6.0 Lactic Acid Calcium Troponin I 0.318 H B-Natriuretic Peptide COVID-19 (SKINNY) MRSA (PCR) 12/09/19 12/09/19 12/10/19 19:50 22:40 00:35 WBC RBC Hgb Hct MCV MCH MCHC RDW Std Deviation RDW Coeff of Earline Plt Count MPV Immature Gran % (Auto) Neut % (Auto) Lymph % (Auto) Union % (Auto) Eos % (Auto) Baso % (Auto) Absolute Neuts (auto) Absolute Lymphs (auto) Nucleated RBC % Differential Comment Platelet Estimate Hypochromasia Anisocytosis Macrocytosis PT INR Specimen Type Sample Site pH Bicarbonate Actual POC Total CO2 Base Excess O2 Saturation O2 % ABG pCO2 ABG pO2 Mo Test Respiration Rate Vent Mode Tidal Volume POC PEEP Blood Gas Notified Whom Blood Gas Notified Time Sodium Potassium Chloride Carbon Dioxide Anion Gap BUN Creatinine Estim Creat Clear Calc Est GFR (MDRD) Af Amer Est GFR (MDRD) Non-Af BUN/Creatinine Ratio Glucose Hemoglobin A1c Lactic Acid 2.3 H* Calcium Troponin I 0.320 H B-Natriuretic Peptide COVID-19 (SKINNY) MRSA (PCR) Negative 12/10/19 12/10/19 03:20 03:20 WBC 6.2 RBC 3.44 L Hgb 9.3 L Hct 31.3 L MCV 91.0 MCH 27.0 MCHC 29.7 L RDW Std Deviation 52.9 H RDW Coeff of Earline 15.9 H Plt Count 196 MPV 9.9 Immature Gran % (Auto) 0.300 Neut % (Auto) 87.1 H Lymph % (Auto) 5.0 L Union % (Auto) 7.6 Eos % (Auto) 0.0 Baso % (Auto) 0.0 Absolute Neuts (auto) 5.4 Absolute Lymphs (auto) 0.31 L Nucleated RBC % 0 Differential Comment COMMENT Platelet Estimate ADEQUATE Hypochromasia 1+ Anisocytosis 1+ Macrocytosis PT INR Specimen Type Sample Site pH Bicarbonate Actual POC Total CO2 Base Excess O2 Saturation O2 % ABG pCO2 ABG pO2 Mo Test Respiration Rate Vent Mode Tidal Volume POC PEEP Blood Gas Notified Whom Blood Gas Notified Time Sodium 135 L Potassium 4.6 Chloride 101 Carbon Dioxide 29.0 Anion Gap 5 BUN 20 H Creatinine 0.69 L Estim Creat Clear Calc 50.75 Est GFR (MDRD) Af Amer 142 Est GFR (MDRD) Non-Af 117 BUN/Creatinine Ratio 29.1 H Glucose 175 H Hemoglobin A1c Lactic Acid Calcium 8.3 L Troponin I B-Natriuretic Peptide COVID-19 (SKINNY) MRSA (PCR) Clinical Impression(s) from Imaging Studies Chest X-Ray 12/09/19 17:50 IMPRESSION: Stable significant COPD changes Worsening left lower lobe infiltrate likely pneumonia, atypical viral pneumonia cannot be excluded Placement of endotracheal tube and orogastric tubes as above Stable small loculated right pleural effusion Healing subacute right rib fractures, stable osteopenia stable mild multilevel compression fractures lower to mid thoracic spine and upper lumbar spine. Electronically Signed: Bairon Jimenez, at 18:07 EDT Tel , Service support , Current Medications Albuterol/Ipratropium (Duoneb) 3 ml INHALATION Q4H.RT COUNTS INCLUDE 234 BEDS AT THE [facility] Last Admin: 12/10/19 02:40 Dose: 3 ml Documented by: Chlorhexidine Gluconate () 15 ml PO BID COUNTS INCLUDE 234 BEDS AT THE [facility] Last Admin: 12/09/19 21:17 Dose: 15 ml Documented by: Enoxaparin Sodium (Lovenox) 40 mg SC DAILY COUNTS INCLUDE 234 BEDS AT THE [facility] Midazolam HCl 50 mg/ Sodium (Chloride) 100 mls @ 2 mls/hr CONT INF .Q50H COUNTS INCLUDE 234 BEDS AT THE [facility]; Protocol Last Titration: 12/10/19 06:00 Dose: 2 mg/hr, 4 mls/hr Documented by: Fentanyl () 100 mls @ 2.5 mls/hr IV UD COUNTS INCLUDE 234 BEDS AT THE [facility]; Protocol Last Titration: 12/10/19 06:00 Dose: 25 mcg/hr, 2.5 mls/hr Documented by: Sodium Chloride () 1,000 mls @ 150 mls/hr IV .Q6H40M COUNTS INCLUDE 234 BEDS AT THE [facility] Last Infusion: 12/10/19 06:02 Dose: 150 mls/hr Documented by: Famotidine 20 mg/ Sodium (Chloride) 10 mls @ 300 mls/hr IV Q12 COUNTS INCLUDE 234 BEDS AT THE [facility] Last Infusion: 12/09/19 21:16 Dose: Infused Documented by: Vancomycin IV Pharmacy to Dose (1 ea/ Sodium Chloride) 500 mls @ 250 mls/hr IV PRN PRN; Protocol PRN Reason: Rx to Dose Aztreonam 2 gm/ Sodium (Chloride) 100 mls @ 150 mls/hr IV Q8 COUNTS INCLUDE 234 BEDS AT THE [facility] Last Infusion: 12/10/19 05:59 Dose: Infused Documented by: Sodium Chloride () 250 mls @ 15 mls/hr IV .[id number] PRN PRN Reason: Saline Flush Sodium Chloride () 250 mls @ 15 mls/hr IV .[id number] PRN PRN Reason: Additional IVPB Infusion Norepinephrine Bitartrate 8 mg (/ Sodium Chloride) 250 mls @ 9.375 mls/hr CONT INF .[id number] COUNTS INCLUDE 234 BEDS AT THE [facility]; Protocol Last Titration: 12/10/19 06:00 Dose: 10 mcg/min, 18.8 mls/hr Documented by: Vancomycin HCl 750 mg/ Sodium (Chloride) 265 mls @ 250 mls/hr IV Q12H WEI Ondansetron HCl (Zofran) 4 mg IV Q8H PRN PRN PRN Reason: NAUSEA/VOMITING Sodium Chloride () 10 - 40 ml IV UD PRN PRN Reason: SALINE FLUSH Last Admin: 12/09/19 21:14 Dose: 40 ml Documented by: Assessment/Plan RECOMMENDATIONS: 1. Continue empiric antimicrobials. Discontinue aztreonam and start meropenem. Continue vancomycin for now. 2. Wean Levophed to maintain a mean arterial pressure at or above 65 mmHg. 3. Discontinue supplemental IV fluids. 4. Discontinue Versed drip. Continue fentanyl drip for pain control. 5. If needed, Precedex can be utilized for sedation purposes. 6. Wean FiO2 and PEEP to maintain oxygen saturations at or above 88%. 7. Resume Lasix regimen, once weaned from vasopressor support. 8. Await COVID testing results. 9. Continue appropriate ICU prophylaxis. IMPRESSIONS: 1. Acute on chronic combined respiratory failure Likely multifactorial in etiology with underlying healthcare associated pneumonia and possible heart failure contributing. The patient has received adequate volume resuscitation. Plan to continue to wean FiO2 and PEEP to maintain oxygen saturations at or above 88%. Continue empiric antimicrobial coverage, pending infectious work-up. Plan for daily paired spontaneous awakening and breathing trials beginning tomorrow. 2. Septic shock with concern for healthcare associated pneumonia Continue current supportive measures as noted above, with broad-spectrum antimicrobial coverage, pending infectious work-up. Continue to wean Levophed to maintain a mean arterial pressure at or above 65 mmHg. 3. Acute on chronic heart failure with preserved ejection fraction Plan to resume diuretic therapy once hemodynamics have stabilized. 4. Indeterminate cardiac enzymes/paroxysmal atrial flutter Most likely related to demand ischemia in the setting of #1 and 2. Continue current medical management. 5. Hypertension/hyperlipidemia/personal history of lung cancer/tobacco dependency in remission Complicates care, management, recovery and prognosis. Hold home antihypertensives for now, given vasopressor requirement. TIME: 42 minutes of critical care time, independent of procedures, was spent addressing the patient's acute on chronic combined respiratory failure, septic shock secondary to healthcare associated pneumonia, acute on chronic heart failure with preserved ejection fraction, indeterminate cardiac enzymes, review of all data and collaboration with the care team. [phone]) [phone] [id number] Critical care first hour
[2019-12-10] MEDS: 0.9% Normal Saline 1,000 ML 150 ML IV (06:17)
--- NOTE | 2019-12-10 10:25 | CASEMGMT ---
FLORINDA GABRIEL ASSESSMENT Pt in isolation precautions and is currently on vent. FLORINDA GABRIEL placed call to pt's , [facility], at this time. FLORINDA GABRIEL introduced self and role at [facility]. Care providers, pharmacy, and demographics verified/updated at this time. PCP: Dr Valencia. Specialists: Dr Alan--cardiology. Next scheduled appt is w/JESÚS Garrison January 19. Dr Powers--pulmonology Preferred Pharmacy: [facility] Retail Insurance: MCR A, B, AARP Prescription Benefit: Yes LNOK: , [facility] Living Arrangements: Lives with in one-story home w/2 steps to enter. Pt is mostly independent w/ADL's, however if assist is needed, can help. states since pt has returned home from TCU in November, that she has been assisting w/washing pt's back and feet and w/compression socks, but otherwise, pt has been able to perform all other ADL's. Transportation: drives and denies transportation concerns. DME: Has the following DME: cane, walker, side rails for toilet, grab bars in shower. -Oxygen through [facility]. states pt has been using 5 L NC daily and has been increasing to 6 L/M when doing exercises. Has concentrator and portability, and she states they have 12 tanks in the garage. Call placed to [facility] [employer] at this time. Their current orders for O2 are 4 L/M continuously and may increase to 7 L/M w/exertion. -Has Trilogy at home. States she pt just recently received a new mask for it and it has been fitting well. She states the unit just started showing Low voltage and that she has contacted the company and she is waiting on a order entry representative to come to their home today to check it out. She states no need for further DME at this time. HHC/SNF: Hx of [facility] 2019. Hx [facility] HHC amd OP therapy @ [facility]. Just returned home from TCU in November and that he did not go home w/HHC at that time. states pt has been doing well at home since returning home, but if he would need SNF at d/c, she would prefer TCU again. states if pt able to return home,she unsure at this time if pt willl want/need HHC @ discharge. RN HARVEY informed her CM will continue to follow and assist with discharge planning needs. CM to follow for home oxygen needs and any further discharge planning/needs. voices no further concerns/needs at this time. Advised to ask for CM if any further questions/concerns/needs arise. Voices understanding. PLAN: TBD. SNF vs Home w/possible HHC. CM to follow for any increasing O2 needs. Corrie CRAWFORD RN CM
[2019-12-10] MEDS: Enoxaparin 40 MG/0.4 ML Syringe SC (10:32)
[2019-12-10] MEDS: Acetaminophen 650 MG/20 ML UDC NG (10:32)
[2019-12-10] MEDS: Famotidine 200 MG/20 ML MDV 20 MG in 0.9% Normal Saline (Pres. free 8 ML 300 MG IV ×2 (10:32→22:37)
[2019-12-10] MEDS: Chlorhexidine 15 ML PO ×2 (10:33→22:37)
--- NOTE | 2019-12-10 11:20 | CASEMGMT ---
Per RN CM patient's would prefer TCU if patient needs placement at d/c. SW called [facility] in TCU and put patient's name on the TCU list. Kathrine RAMIREZ MSW
--- NOTE | 2019-12-10 12:59 | PCM.PN.HOSP ---
Reason for Visit: Acute on chronic respiratory failure secondary to COPD exacerbation and suspected healthcare associated pneumonia/severe sepsis. Objective: Low-grade fever, T-max 100.5 Fahrenheit. Blood pressure 95/53, was on Levophed which is turned off Patient failed BiPAP therefore intubated currently on 45% FiO2, 500 tidal volume, PEEP 5 Patient is awake. Currently on fentanyl drip. Vitals/I&O's: Vital Signs Temp Pulse Resp BP Pulse Ox 100.0 F H 88 22 H 95/53 L 25 12/10/19 12:30 12/10/19 12:45 12/10/19 12:45 12/10/19 12:45 12/10/19 12:45 Oxygen Delivery Method Mechanical Ventilator Weight: 141 lb 5.061 oz Body Mass Index (BMI) 19.2 Intake and Output for Last 24 Hours 12/08/19 12/09/19 12/10/19 23:59 23:59 23:59 Intake Total 1862.53 / 1932.56 2601.60 / 2601.60 Output Total 500 / 500 Balance 1862.53 / 1732.56 2101.60 / 2101.60 General: Lethargic, - HEENT: Atraumatic - Intubated., PERRLA, EOMI, Normocephalic Oral: - - ET and OG tube Neck: Supple, No JVD, Negative Carotid Bruits Lungs: - - On vent support. Cardiovascular: Normal S1, Normal S2, No murmurs, - - Paced rhythm. Abdomen: Bowel Sounds Present, Soft, Non Tender, Non-Distended Extremities: No edema, Capillary Refill Less than 3 Seconds Musculoskeletal: No Tenderness to Palpation of Joints or Extremities, Arthritic Changes Neurological: Cranial nerves II-XII grossly intact, Deep Tendon Reflexes 2+/4 and Symmetrical, Neuro grossly intact Microbiology Past 72 Hours 12/09/19 18:57 Mucosa - Nasopharyngeal Coronavirus COVID-19 PCR - Final Laboratory Results 12/09/19 16:25: WBC 10.0, RBC 4.28 L, Hgb 11.6 L, Hct 39.7 L, MCV 92.8, MCH 27.1, MCHC 29.2 L, RDW Std Deviation 54.7 H, RDW Coeff of Earline 15.9 H, Plt Count 253, MPV 9.9, Immature Gran % (Auto) 0.400, Neut % (Auto) 78.7 H, Lymph % (Auto) 12.1 L, [place] % (Auto) 8.3, Eos % (Auto) 0.0, Baso % (Auto) 0.5, Absolute Neuts (auto) 7.9 H, Absolute Lymphs (auto) 1.21, Nucleated RBC % 0, Platelet Estimate ADEQUATE, Anisocytosis RARE, Macrocytosis RARE 12/09/19 16:25: Sodium 132 L, Potassium 4.8, Chloride 96 L, Carbon Dioxide 35.0 H, Anion Gap 1 L, BUN 18, Creatinine 0.73, Estim Creat Clear Calc 50.51, Est GFR (MDRD) Af Amer 131, Est GFR (MDRD) Non-Af 108, BUN/Creatinine Ratio 24.5 H, Glucose 211 H, Calcium 9.4, Troponin I 0.298 H 12/09/19 16:25: Lactic Acid 2.2 H* 12/09/19 16:25: B-Natriuretic Peptide 296.5 H 12/09/19 18:36: Specimen Type ART, Sample Site L RADIAL, pH 7.18 L*, Bicarbonate Actual 32.5 H, POC Total CO2 35, Base Excess 4 H, O2 Saturation 100 H, O2 % 100, ABG pCO2 87.6 H*, ABG pO2 328 H*, Mo Test NA, Respiration Rate 14, Vent Mode A-C, Tidal Volume 450, POC PEEP 7, Blood Gas Notified Whom ED , Blood Gas Notified Time 1840 12/09/19 18:57: COVID-19 (SKINNY) Cancelled 12/09/19 19:15: PT 13.2, INR 1.1 12/09/19 19:50: Hemoglobin A1c 6.0 12/09/19 19:50: Troponin I 0.318 H 12/09/19 19:50: Lactic Acid 2.3 H* 12/09/19 22:40: Troponin I 0.320 H 12/10/19 00:35: MRSA (PCR) Negative 12/10/19 03:20: WBC 6.2, RBC 3.44 L, Hgb 9.3 L, Hct 31.3 L, MCV 91.0, MCH 27.0, MCHC 29.7 L, RDW Std Deviation 52.9 H, RDW Coeff of Earline 15.9 H, Plt Count 196, MPV 9.9, Immature Gran % (Auto) 0.300, Neut % (Auto) 87.1 H, Lymph % (Auto) 5.0 L, [place] % (Auto) 7.6, Eos % (Auto) 0.0, Baso % (Auto) 0.0, Absolute Neuts (auto) 5.4, Absolute Lymphs (auto) 0.31 L, Nucleated RBC % 0, Differential Comment COMMENT, Platelet Estimate ADEQUATE, Hypochromasia 1+, Anisocytosis 1+ 12/10/19 03:20: Sodium 135 L, Potassium 4.6, Chloride 101, Carbon Dioxide 29.0, Anion Gap 5, BUN 20 H, Creatinine 0.69 L, Estim Creat Clear Calc 50.75, Est GFR (MDRD) Af Amer 142, Est GFR (MDRD) Non-Af 117, BUN/Creatinine Ratio 29.1 H, Glucose 175 H, Calcium 8.3 L Current Medications Acetaminophen (Tylenol Liquid) 650 mg NG Q6H PRN PRN PRN Reason: HEADACHE/FEVER (T>100F) Last Admin: 12/10/19 10:32 Dose: 650 mg Documented by: Albuterol/Ipratropium (Duoneb) 3 ml INHALATION Q4H.RT [facility] Last Admin: 12/10/19 10:55 Dose: 3 ml Documented by: Chlorhexidine Gluconate () 15 ml PO BID [facility] Last Admin: 12/10/19 10:33 Dose: 15 ml Documented by: Enoxaparin Sodium (Lovenox) 40 mg SC DAILY [facility] Last Admin: 12/10/19 10:32 Dose: 40 mg Documented by: Fentanyl () 100 mls @ 2.5 mls/hr IV UD [facility]; Protocol Last Titration: 12/10/19 12:30 Dose: 50 mcg/hr, 5 mls/hr Documented by: Famotidine 20 mg/ Sodium (Chloride) 10 mls @ 300 mls/hr IV Q12 [facility] Last Infusion: 12/10/19 10:36 Dose: Infused Documented by: Vancomycin IV Pharmacy to Dose (1 ea/ Sodium Chloride) 500 mls @ 250 mls/hr IV PRN PRN; Protocol PRN Reason: Rx to Dose Sodium Chloride () 250 mls @ 15 mls/hr IV .[id number] PRN PRN Reason: Saline Flush Sodium Chloride () 250 mls @ 15 mls/hr IV .[id number] PRN PRN Reason: Additional IVPB Infusion Norepinephrine Bitartrate 8 mg (/ Sodium Chloride) 250 mls @ 9.375 mls/hr CONT INF .[id number] [facility]; Protocol Last Titration: 12/10/19 12:45 Dose: 0 mcg/min, 0 mls/hr Documented by: Vancomycin HCl 750 mg/ Sodium (Chloride) 265 mls @ 250 mls/hr IV Q12H [facility] Last Infusion: 12/10/19 12:20 Dose: Infused Documented by: Meropenem 1 gm/ Sodium (Chloride) 120 mls @ 33 mls/hr IV Q8 [facility] Methylprednisolone (Solu-Medrol) 40 mg IV Q6 [facility] Ondansetron HCl (Zofran) 4 mg IV Q8H PRN PRN PRN Reason: NAUSEA/VOMITING Sodium Chloride () 10 - 40 ml IV UD PRN PRN Reason: SALINE FLUSH Last Admin: 12/09/19 21:14 Dose: 40 ml Documented by: STROKE Vital Signs/Narrative: Vital Signs Temp Pulse Resp BP Pulse Ox 12/10/19 12:45 88 22 H 95/53 L 25 12/10/19 12:30 100.0 F H 86 27 H 99/50 L 94 12/10/19 12:15 79 23 H 102/51 L 93 12/10/19 12:00 100.1 F H 81 22 H 120/59 L 94 12/10/19 11:45 85 12/10/19 11:00 83 23 H 100/57 L 94 12/10/19 10:55 79 20 H 96 12/10/19 10:00 81 21 H 111/58 L 94 12/10/19 09:30 84 19 H 102/50 L 93 12/10/19 09:00 85 16 98/51 L 91 Medical Necessity - Tobacco Use Smoking Status: Former smoker Assessment/Plan This is an 84 years old male patient with history of high-grade AV block status post pacemaker, aortic valve stenosis, pulmonary hypertension, COPD, non-small cell lung cancer in right lower lobe status post radiotherapy in 2015, dysphagia came to ER for shortness of breath, dyspneic and tachypneic, started on BiPAP without improvement, was intubated and started mechanical ventilation and he was found to have acute on chronic respiratory failure attributed to acute COPD exacerbation and suspected healthcare associated pneumonia with with septic shock and elevated troponin #1 acute on chronic respiratory failure: Patient is intubated and is on fentanyl drip. Vent management as per record label intern. ABG on 12/09/2019 showed 7.18/88/328 on 100% FiO2/450/7. Vent setting adjusted after that and currently on 45% FiO2/PEEP 5. 2. Septic shock (hypotension required vasopressor support) Secondary to left lower lobe healthcare care associated pneumonia: Lactic acid 2.3. Chest x-ray shows left lower lobe infiltrate. The patient had IV Levaquin and aztreonam and vancomycin in ED. Currently on IV vancomycin and meropenem. On bronchodilator. Sepsis work-up so far shows COVID-19 PCR negative. Blood culture and sputum culture are pending. Respiratory panel pending. Last respiratory panel on 10/22/2019 was negative. Levophed drip is turned off. #3 elevated troponin without EKG changes: Most probably secondary to demand ischemia. Telemetry shows paced rhythm. Patient has history of high-grade AV block status post pacemaker and aortic valve stenosis. Serial troponins done and elevated 0.32. 2D echocardiogram on September, revealed ejection fraction 55%, stage I diastolic function and moderate pulmonary hypertension. #4 severe COPD/chronic combined respiratory failure: On home oxygen and Trelegy last PFT in 2016 showed FEV1 44%. #5 chronic diastolic CHF: Currently it seems compensated. BNP elevated, at 296. Currently hold Lasix, losartan and metolazone, close monitoring of volume status. When blood pressure stabilizes and euvolemic can resume these medications. 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 EKG reviewed, revealed paced rhythm, heart rate has been stable. He is not on anticoagulation. #7 hypertension: Blood pressure stable at this time, hold losartan, Lasix and metolazone. #8 GERD: Start Pepcid twice daily IV. #9 Non-small cell lung cancer in right lower lobe status post radiotherapy: Last CT chest from June 2018 revealed no evidence of recurrence. Follows city surveyor Dr. Li in [facility] and also Dr. Mccartney. Patient also has dysphagia probably secondary to physiotherapy. And required dilatation. CODE STATUS: Full code This was discussed with the patient's by the ER physician. #10 DVT prophylaxis: Subcu Lovenox. Inpatient E&M: 94016 Subs Hosp L3
[2019-12-10] MEDS: fentaNYL drip 100 ML 5 MCG IV (19:45)
[2019-12-11] VITALS (36 sets, daily range): BP systolic 92–152; BP diastolic 46–81; PULSE 60–125; RESP 11–25; TEMP 35.8–37.2; O2SAT 88–99
[2019-12-11] MEDS: 0.9% Saline Lock 10 ML Syringe IV ×3 (00:06→23:24)
[2019-12-11] MEDS: Ipratropium/Albuterol Sulfate 3 ML AMPUL.NEB INHALATION ×6 (02:35→22:58)
[2019-12-11 04:07] LABS: Absolute Lymphocyte Count 0.35 X10^3/uL (0.83-4.51); Absolute Neutrophil Count 4.5 X10^3/uL (2.0-7.7); Hematocrit 28.9 % (40-54); Hemoglobin 8.6 g/dL (13.0-16.5); Lymphocyte # 0.35 X10^3/ul (4.0); Lymphocyte % 6.9 % (19-41); Mean Corp Hgb Conc 29.8 g/dL (32-36); Mean Corpuscular Volume 90.9 fL (80-94); Mean Platelet Vol. 9.7 fl (6.2-12.0); Monocyte# 0.16 X10^3/uL; Monocyte% 3.2 % (0-10); NRBC Flagged by Analyzer 0 % (0-5); Neutrophil # 4.53 X10^3/uL (2.7-7.7); Neutrophil % 89.3 % (47-70); POSITIVE DIFFERENTIAL YES; Platelet Count 145 K/mm3 (150-450); RBC Distribution Width CV 16.6 % (11.6-14.6); RBC Distribution Width SD 55.7 fl (35.1-43.9); Red Blood Count 3.18 M/mm3 (4.6-6.2); White Blood Count 5.1 K/mm3 (4.4-11.0)
[2019-12-11 04:08] LABS: Differential Indicated SCAN CRITERIA MET
[2019-12-11 04:25] LABS: AST(SGOT) 24 U/L (15-37); Alanine Aminotransfer ALT/SGPT 55 U/L (16-61); Albumin, Serum 2.9 g/dL (3.2-5.0); Alkaline Phosphatase 56 U/L (45-117); Anion Gap 4 (5-15); BUN 21 mg/dL (7-18); BUN/Creat Ratio 32.1 RATIO (10-20); Calcium,Total 8.7 mg/dL (8.5-10.1); Chloride 103 mmol/L (98-107); Creatinine, Serum 0.66 mg/dL (0.70-1.30); EST Glomerular Filtration Rate 124 mL/min (>60); Est Glom Filt Rate - Afr Amer 150 mL/min (>60); Estimated Creatinine Clearance 50.75 ml/min; Globulin 2.9 g/dL (2.2-4.2); Glucose 142 mg/dL (74-106); Potassium 4.4 mmol/L (3.5-5.1); Protein, Total 5.8 g/dL (6.4-8.2); Sodium Level 137 mmol/L (136-145)
--- NOTE | 2019-12-11 06:28 | PCM.PN.INT ---
Subjective: The patient was seen and examined at the bedside this morning. Events from the last 24 hours have been reviewed. The patient is currently afebrile, hemodynamically stable and maintaining appropriate oxygen saturations on assist control mode of mechanical ventilation with an FiO2 requirement of 45% and PEEP of 5. The patient failed his spontaneous breathing trial this morning after he became tachypneic, tachycardic and hypoxemic. He was apparently quite anxious as well. The patient was able to be weaned from Levophed yesterday around noon. The patient is currently documented to be overall net +4.1 L for the hospital admission. Objective: The patient's most recent lab work, culture data and imaging studies have all been personally reviewed. Surface echocardiogram from September 2019 revealed normal LV size and function with an ejection fraction of 55% and stage I diastolic dysfunction. Pulmonary artery systolic pressure was estimated to be 50 mmHg. Moderate aortic stenosis was also noted. COVID PCR was negative. Respiratory viral panel was negative. Strep and urine Legionella antigens were negative. Blood and sputum cultures are pending. General: - - Remains intubated, minimally sedated and mechanically ventilated. HEENT: Atraumatic, Normocephalic Oral: No Gingival or Mucosal Lesions/ Ulcerations, - - Endotracheal and OG tubes in place Neck: Supple, No Nodes, Trachea Midline Lungs: No rhonchi, No wheeze, No rales, Diminished Cardiovascular: Regular rate, Regular Rhythm, Normal S1, Normal S2 Abdomen: Bowel Sounds Present, Soft, Non Tender Extremities: No clubbing, No cyanosis Skin: No breakdown Musculoskeletal: No Muscle Wasting Lymphatic: No Cervical, Supraclavicular, or Inguinal Adenopathy Neurological: - - No focal neurological deficits. Able to follow simple commands. Vital Signs Temp Pulse Resp BP Pulse Ox 98.9 F 125 H 25 H 150/81 H 94 12/11/19 06:00 12/11/19 06:00 12/11/19 06:00 12/11/19 06:00 12/11/19 06:00 Oxygen Delivery Method Mechanical Ventilator Weight: 143 lb 4.807 oz Body Mass Index (BMI) 19.2 Intake and Output for Last 24 Hours 12/09/19 12/10/19 12/11/19 23:59 23:59 23:59 Intake Total 1862.53 / 1932.56 3039.10 / 3074.10 176.27 / 176.27 Output Total 840 / 840 140 / 140 Balance 1862.53 / 1732.56 2199.10 / 2234.10 36.27 / 36.27 Labs (Last 48 Hours) 12/09/19 12/09/19 12/09/19 16:25 16:25 16:25 WBC 10.0 RBC 4.28 L Hgb 11.6 L Hct 39.7 L MCV 92.8 MCH 27.1 MCHC 29.2 L RDW Std Deviation 54.7 H RDW Coeff of Earline 15.9 H Plt Count 253 MPV 9.9 Immature Gran % (Auto) 0.400 Neut % (Auto) 78.7 H Lymph % (Auto) 12.1 L [place] % (Auto) 8.3 Eos % (Auto) 0.0 Baso % (Auto) 0.5 Absolute Neuts (auto) 7.9 H Absolute Lymphs (auto) 1.21 Nucleated RBC % 0 Differential Comment Platelet Estimate ADEQUATE Hypochromasia Anisocytosis RARE Macrocytosis RARE PT INR Specimen Type Sample Site pH Bicarbonate Actual POC Total CO2 Base Excess O2 Saturation O2 % ABG pCO2 ABG pO2 Mo Test Respiration Rate Vent Mode Tidal Volume POC PEEP Blood Gas Notified Whom Blood Gas Notified Time Sodium 132 L Potassium 4.8 Chloride 96 L Carbon Dioxide 35.0 H Anion Gap 1 L BUN 18 Creatinine 0.73 Estim Creat Clear Calc 50.51 Est GFR (MDRD) Af Amer 131 Est GFR (MDRD) Non-Af 108 BUN/Creatinine Ratio 24.5 H Glucose 211 H Hemoglobin A1c Lactic Acid 2.2 H* Calcium 9.4 Total Bilirubin AST ALT Alkaline Phosphatase Troponin I 0.298 H B-Natriuretic Peptide Total Protein Albumin Globulin Albumin/Globulin Ratio COVID-19 (SKINNY) MRSA (PCR) 12/09/19 12/09/19 12/09/19 16:25 18:36 18:57 WBC RBC Hgb Hct MCV MCH MCHC RDW Std Deviation RDW Coeff of Earline Plt Count MPV Immature Gran % (Auto) Neut % (Auto) Lymph % (Auto) [place] % (Auto) Eos % (Auto) Baso % (Auto) Absolute Neuts (auto) Absolute Lymphs (auto) Nucleated RBC % Differential Comment Platelet Estimate Hypochromasia Anisocytosis Macrocytosis PT INR Specimen Type ART Sample Site L RADIAL pH 7.18 L* Bicarbonate Actual 32.5 H POC Total CO2 35 Base Excess 4 H O2 Saturation 100 H O2 % 100 ABG pCO2 87.6 H* ABG pO2 328 H* Mo Test NA Respiration Rate 14 Vent Mode A-C Tidal Volume 450 POC PEEP 7 Blood Gas Notified Whom ED MD Blood Gas Notified Time 1840 Sodium Potassium Chloride Carbon Dioxide Anion Gap BUN Creatinine Estim Creat Clear Calc Est GFR (MDRD) Af Amer Est GFR (MDRD) Non-Af BUN/Creatinine Ratio Glucose Hemoglobin A1c Lactic Acid Calcium Total Bilirubin AST ALT Alkaline Phosphatase Troponin I B-Natriuretic Peptide 296.5 H Total Protein Albumin Globulin Albumin/Globulin Ratio COVID-19 (SKINNY) Cancelled MRSA (PCR) 12/09/19 12/09/19 12/09/19 19:15 19:50 19:50 WBC RBC Hgb Hct MCV MCH MCHC RDW Std Deviation RDW Coeff of Earline Plt Count MPV Immature Gran % (Auto) Neut % (Auto) Lymph % (Auto) [place] % (Auto) Eos % (Auto) Baso % (Auto) Absolute Neuts (auto) Absolute Lymphs (auto) Nucleated RBC % Differential Comment Platelet Estimate Hypochromasia Anisocytosis Macrocytosis PT 13.2 INR 1.1 Specimen Type Sample Site pH Bicarbonate Actual POC Total CO2 Base Excess O2 Saturation O2 % ABG pCO2 ABG pO2 Mo Test Respiration Rate Vent Mode Tidal Volume POC PEEP Blood Gas Notified Whom Blood Gas Notified Time Sodium Potassium Chloride Carbon Dioxide Anion Gap BUN Creatinine Estim Creat Clear Calc Est GFR (MDRD) Af Amer Est GFR (MDRD) Non-Af BUN/Creatinine Ratio Glucose Hemoglobin A1c 6.0 Lactic Acid Calcium Total Bilirubin AST ALT Alkaline Phosphatase Troponin I 0.318 H B-Natriuretic Peptide Total Protein Albumin Globulin Albumin/Globulin Ratio COVID-19 (SKINNY) MRSA (PCR) 12/09/19 12/09/19 12/10/19 19:50 22:40 00:35 WBC RBC Hgb Hct MCV MCH MCHC RDW Std Deviation RDW Coeff of Earline Plt Count MPV Immature Gran % (Auto) Neut % (Auto) Lymph % (Auto) [place] % (Auto) Eos % (Auto) Baso % (Auto) Absolute Neuts (auto) Absolute Lymphs (auto) Nucleated RBC % Differential Comment Platelet Estimate Hypochromasia Anisocytosis Macrocytosis PT INR Specimen Type Sample Site pH Bicarbonate Actual POC Total CO2 Base Excess O2 Saturation O2 % ABG pCO2 ABG pO2 Mo Test Respiration Rate Vent Mode Tidal Volume POC PEEP Blood Gas Notified Whom Blood Gas Notified Time Sodium Potassium Chloride Carbon Dioxide Anion Gap BUN Creatinine Estim Creat Clear Calc Est GFR (MDRD) Af Amer Est GFR (MDRD) Non-Af BUN/Creatinine Ratio Glucose Hemoglobin A1c Lactic Acid 2.3 H* Calcium Total Bilirubin AST ALT Alkaline Phosphatase Troponin I 0.320 H B-Natriuretic Peptide Total Protein Albumin Globulin Albumin/Globulin Ratio COVID-19 (SKINNY) MRSA (PCR) Negative 12/10/19 12/10/19 12/11/19 03:20 03:20 03:55 WBC 6.2 5.1 RBC 3.44 L 3.18 L Hgb 9.3 L 8.6 L Hct 31.3 L 28.9 L MCV 91.0 90.9 MCH 27.0 27.0 MCHC 29.7 L 29.8 L RDW Std Deviation 52.9 H 55.7 H RDW Coeff of Earline 15.9 H 16.6 H Plt Count 196 145 L MPV 9.9 9.7 Immature Gran % (Auto) 0.300 0.600 Neut % (Auto) 87.1 H 89.3 H Lymph % (Auto) 5.0 L 6.9 L [place] % (Auto) 7.6 3.2 Eos % (Auto) 0.0 0.0 Baso % (Auto) 0.0 0.0 Absolute Neuts (auto) 5.4 4.5 Absolute Lymphs (auto) 0.31 L 0.35 L Nucleated RBC % 0 0 Differential Comment COMMENT COMMENT Platelet Estimate ADEQUATE Hypochromasia 1+ Anisocytosis 1+ Macrocytosis PT INR Specimen Type Sample Site pH Bicarbonate Actual POC Total CO2 Base Excess O2 Saturation O2 % ABG pCO2 ABG pO2 Mo Test Respiration Rate Vent Mode Tidal Volume POC PEEP Blood Gas Notified Whom Blood Gas Notified Time Sodium 135 L Potassium 4.6 Chloride 101 Carbon Dioxide 29.0 Anion Gap 5 BUN 20 H Creatinine 0.69 L Estim Creat Clear Calc 50.75 Est GFR (MDRD) Af Amer 142 Est GFR (MDRD) Non-Af 117 BUN/Creatinine Ratio 29.1 H Glucose 175 H Hemoglobin A1c Lactic Acid Calcium 8.3 L Total Bilirubin AST ALT Alkaline Phosphatase Troponin I B-Natriuretic Peptide Total Protein Albumin Globulin Albumin/Globulin Ratio COVID-19 (SKINNY) MRSA (PCR) 12/11/19 03:55 WBC RBC Hgb Hct MCV MCH MCHC RDW Std Deviation RDW Coeff of Earline Plt Count MPV Immature Gran % (Auto) Neut % (Auto) Lymph % (Auto) [place] % (Auto) Eos % (Auto) Baso % (Auto) Absolute Neuts (auto) Absolute Lymphs (auto) Nucleated RBC % Differential Comment Platelet Estimate Hypochromasia Anisocytosis Macrocytosis PT INR Specimen Type Sample Site pH Bicarbonate Actual POC Total CO2 Base Excess O2 Saturation O2 % ABG pCO2 ABG pO2 Mo Test Respiration Rate Vent Mode Tidal Volume POC PEEP Blood Gas Notified Whom Blood Gas Notified Time Sodium 137 Potassium 4.4 Chloride 103 Carbon Dioxide 30.0 Anion Gap 4 L BUN 21 H Creatinine 0.66 L Estim Creat Clear Calc 50.75 Est GFR (MDRD) Af Amer 150 Est GFR (MDRD) Non-Af 124 BUN/Creatinine Ratio 32.1 H Glucose 142 H Hemoglobin A1c Lactic Acid Calcium 8.7 Total Bilirubin 0.30 AST 24 ALT 55 Alkaline Phosphatase 56 Troponin I B-Natriuretic Peptide Total Protein 5.8 L Albumin 2.9 L Globulin 2.9 Albumin/Globulin Ratio 1.0 COVID-19 (SKINNY) MRSA (PCR) Microbiology 12/10/19 16:40 Urine Catheter - Catheter Streptococcus pneumoniae Antigen (M - Final 12/10/19 16:40 Urine Catheter - Catheter Legionella Antigen - Final 12/10/19 10:50 Mucosa - Nose Respiratory Panel (PCR) - Final 12/09/19 18:57 Mucosa - Nasopharyngeal Coronavirus COVID-19 PCR - Final Clinical Impression(s) from Imaging Studies Chest X-Ray 12/09/19 17:50 IMPRESSION: Stable significant COPD changes Worsening left lower lobe infiltrate likely pneumonia, atypical viral pneumonia cannot be excluded Placement of endotracheal tube and orogastric tubes as above Stable small loculated right pleural effusion Healing subacute right rib fractures, stable osteopenia stable mild multilevel compression fractures lower to mid thoracic spine and upper lumbar spine. Electronically Signed: Bairon Jimenez, at 18:07 EDT Tel , Service support , Medical Necessity - Tobacco Use Smoking Status: Former smoker Assessment/Plan RECOMMENDATIONS: 1. Continue empiric antimicrobials. 2. Start Precedex today to help facilitate weaning from invasive mechanical ventilatory support. Continue fentanyl drip as ordered. 3. Wean FiO2 and PEEP to maintain oxygen saturations at or above 88%. 4. Resume Lasix regimen, given hemodynamic stability. 5. Continue appropriate ICU prophylaxis. 6. Okay to start tube feeds today. IMPRESSIONS: 1. Acute on chronic combined respiratory failure Likely multifactorial in etiology with underlying healthcare associated pneumonia and possible heart failure contributing. The patient has received adequate volume resuscitation. Plan to continue to wean FiO2 and PEEP to maintain oxygen saturations at or above 88%. Continue empiric antimicrobial coverage, pending infectious work-up. Plan for daily paired spontaneous awakening and breathing trials. 2. Septic shock with concern for healthcare associated pneumonia Resolved. Continue current supportive measures as noted above, with broad-spectrum antimicrobial coverage, pending infectious work-up. The patient has been weaned from vasopressor support and remains hemodynamically stable at this time. 3. Acute on chronic heart failure with preserved ejection fraction Given hemodynamic stability, we will plan to begin Lasix regimen once again today. 4. Indeterminate cardiac enzymes/paroxysmal atrial flutter Most likely related to demand ischemia in the setting of #1 and 2. Continue current medical management. 5. Hypertension/hyperlipidemia/personal history of lung cancer/tobacco dependency in remission Complicates care, management, recovery and prognosis. Continue to hold home antihypertensives for now. Tube feeds can be initiated today from my perspective. TIME: 38 minutes of critical care time, independent of procedures, was spent addressing the patient's acute on chronic combined respiratory failure, septic shock secondary to healthcare associated pneumonia, acute on chronic heart failure with preserved ejection fraction, indeterminate cardiac enzymes, review of all data and collaboration with the care team. ([id number]) [id number] Critical care first hour
[2019-12-11 09:30] LABS: Vancomycin, Trough Level 8.5 ug/mL (5.0-15.0)
--- NOTE | 2019-12-11 09:45 | CASEMGMT ---
FLORINDA GABRIEL Note: Participated in ICU interdisciplinary rounding. Pt remains intubated, 50% O2. Will continue to follow and assist with discharge planning as needed. Corrie LONGN FLORINDA GABRIEL
--- NOTE | 2019-12-11 09:51 | PCM.NTREPORT ---
Nutrition Therapy Report - History Nutrition Services has been consulted to:: Manage enteral nutrition Current diet / nutrition support order:: NPO - Anthropometric Measurements Height:: 5 ft 11 in Weight:: 65 kg Body Mass Index (BMI):: 20.0 - Relevant Labs Relevant Labs:: RBC 3.18 M/mm3 (4.6-6.2) L 12/11/19 03:55 Hgb 8.6 g/dL (13.0-16.5) L 12/11/19 03:55 Hct 28.9 % (40-54) L 12/11/19 03:55 MCHC 29.8 g/dL (32-36) L 12/11/19 03:55 RDW Std Deviation 55.7 fl (35.1-43.9) H 12/11/19 03:55 RDW Coeff of Earline 16.6 % (11.6-14.6) H 12/11/19 03:55 Plt Count 145 K/mm3 (150-450) L 12/11/19 03:55 Neut % (Auto) 89.3 % (47-70) H 12/11/19 03:55 Lymph % (Auto) 6.9 % (19-41) L 12/11/19 03:55 Absolute Neuts (auto) 7.9 X10^3/uL (2.0-7.7) H 12/09/19 16:25 Absolute Lymphs (auto) 0.35 X10^3/uL (0.83-4.51) L 12/11/19 03:55 Sodium 135 mmol/L (136-145) L 12/10/19 03:20 Chloride 96 mmol/L (98-107) L 12/09/19 16:25 Carbon Dioxide 35.0 mmol/L (21.0-32.0) H 12/09/19 16:25 Anion Gap 4 (5-15) L 12/11/19 03:55 BUN 21 mg/dL (7-18) H 12/11/19 03:55 Creatinine 0.66 mg/dL (0.70-1.30) L 12/11/19 03:55 BUN/Creatinine Ratio 32.1 RATIO (10-20) H 12/11/19 03:55 Glucose 142 mg/dL (74-106) H 12/11/19 03:55 Lactic Acid 2.3 mmol/L (0.4-1.9) H* 12/09/19 19:50 Calcium 8.3 mg/dL (8.5-10.1) L 12/10/19 03:20 Troponin I 0.320 ng/mL (<0.045) H 12/09/19 22:40 B-Natriuretic Peptide 296.5 pg/mL (0-100) H 12/09/19 16:25 Total Protein 5.8 g/dL (6.4-8.2) L 12/11/19 03:55 Albumin 2.9 g/dL (3.2-5.0) L 12/11/19 03:55 - Assessment Food / Nutrition-Related History:: Pt remains intubated. Failed SBT this AM. OG in place. Wt increase of 0.9 kg since last review. Has BUE 1+ pitting, bilat hand/BLE non-pitting edema per nursing documentation. Lasix added. Anticipate wt loss as fluid status improves. - Nutrition Diagnosis Problem / Etiology / Signs & Symptoms (PES):: Inadequate oral intake related to intubation, resp. failure as evidenced by no PO intake over past 24 hours. Evidence of Malnutrition Exists:: No - Nutrition Intervention Nutrition Prescription:: [id number] calories/day, 78-98 g protein/day - Food / Nutrient Delivery Interventions Summary of nutrition intervention:: Will order enteral nutrition. Nutrition support ordered as / adjusted to:: Vital AF 1.2 via OG at goal rate of 60mL/hour w/100mL flush every 4 hours to provide 1728 calories, 108 g protein, and 1767mL total fluid per day. Start tube feeds at 15mL/hour and increase by 15mL every 8 hours as pt tolerates until goal rate achieved. Nutrition education provided?: No - MNT Monitoring Further MNT monitoring and evaluation required?: Yes MNT Follow-up in:: 1-2 days
[2019-12-11] MEDS: Famotidine 200 MG/20 ML MDV 20 MG in 0.9% Normal Saline (Pres. free 8 ML 300 MG IV ×2 (10:47→21:12)
[2019-12-11] MEDS: Vital AF 1.2 Cal Liquid 1,000 ML 60 ML GT (10:47)
[2019-12-11] MEDS: Furosemide 40 MG/4 ML Vial IV ×2 (10:47→17:50)
[2019-12-11] MEDS: Chlorhexidine 15 ML PO ×2 (10:48→21:13)
[2019-12-11] MEDS: Enoxaparin 40 MG/0.4 ML Syringe SC (10:48)
--- NOTE | 2019-12-11 12:03 | PN_ITS ---
Objective: Seen and examined. Patient is still intubated. No high-grade fever in last 24 hours. No tachycardia. Patient is awake and responding to simple commands. Ventilator on AC mode, FiO2 45% on PEEP of 5. General: Awake HEENT: Atraumatic - Intubated., PERRLA, EOMI, Normocephalic Oral: - - ET and OG tube Neck: Supple, No JVD, Negative Carotid Bruits Lungs: - - On vent support. Cardiovascular: Normal S1, Normal S2, No murmurs, Paced rhythm. Abdomen: Bowel Sounds Present, Soft, Non Tender, Non-Distended Extremities: No edema, Capillary Refill Less than 3 Seconds Musculoskeletal: No Tenderness to Palpation of Joints or Extremities, Arthritic Changes Neurological: Cranial nerves II-XII grossly intact, Deep Tendon Reflexes 2+/4 and Symmetrical, Neuro grossly intact Vitals/I&O's: Vital Signs Temp Pulse Resp BP Pulse Ox 98.5 F 70 18 116/58 L 97 12/11/19 08:00 12/11/19 11:00 12/11/19 11:00 12/11/19 10:00 12/11/19 11:00 Oxygen Delivery Method Mechanical Ventilator Weight: 143 lb 4.807 oz Body Mass Index (BMI) 20.0 Intake and Output for Last 24 Hours 12/09/19 12/10/19 12/11/19 23:59 23:59 23:59 Intake Total 1862.53 / 1932.56 3039.10 / 3074.10 341.75 / 341.75 Output Total 840 / 840 140 / 140 Balance 1862.53 / 1732.56 2199.10 / 2234.10 201.75 / 201.75 Microbiology Past 72 Hours 12/10/19 10:54 Sputum, Induced/Lukens Gram Stain - Final 12/10/19 16:40 Urine Catheter - Catheter Streptococcus pneumoniae Antigen (M - Final 12/10/19 16:40 Urine Catheter - Catheter Legionella Antigen - Final 12/10/19 10:50 Mucosa - Nose Respiratory Panel (PCR) - Final 12/09/19 18:57 Mucosa - Nasopharyngeal Coronavirus COVID-19 PCR - Final Laboratory Results 12/11/19 03:55: WBC 5.1, RBC 3.18 L, Hgb 8.6 L, Hct 28.9 L, MCV 90.9, MCH 27.0, MCHC 29.8 L, RDW Std Deviation 55.7 H, RDW Coeff of Earline 16.6 H, Plt Count 145 L, MPV 9.7, Immature Gran % (Auto) 0.600, Neut % (Auto) 89.3 H, Lymph % (Auto) 6.9 L, Alexander % (Auto) 3.2, Eos % (Auto) 0.0, Baso % (Auto) 0.0, Absolute Neuts (auto) 4.5, Absolute Lymphs (auto) 0.35 L, Nucleated RBC % 0, Differential Comment COMMENT 12/11/19 03:55: Sodium 137, Potassium 4.4, Chloride 103, Carbon Dioxide 30.0, Anion Gap 4 L, BUN 21 H, Creatinine 0.66 L, Estim Creat Clear Calc 50.75, Est GFR (MDRD) Af Amer 150, Est GFR (MDRD) Non-Af 124, BUN/Creatinine Ratio 32.1 H, Glucose 142 H, Calcium 8.7, Total Bilirubin 0.30, AST 24, ALT 55, Alkaline Phosphatase 56, Total Protein 5.8 L, Albumin 2.9 L, Globulin 2.9, Albumin/Globulin Ratio 1.0 12/11/19 08:35: Vancomycin Trough 8.5 Current Medications Acetaminophen (Tylenol Liquid) 650 mg NG Q6H PRN PRN PRN Reason: HEADACHE/FEVER (T>100F) Last Admin: 12/10/19 10:32 Dose: 650 mg Documented by: Albuterol/Ipratropium (Duoneb) 3 ml INHALATION Q4H.RT [facility] Last Admin: 12/11/19 10:58 Dose: 3 ml Documented by: Chlorhexidine Gluconate () 15 ml PO BID [facility] Last Admin: 12/11/19 10:48 Dose: 15 ml Documented by: Enoxaparin Sodium (Lovenox) 40 mg SC DAILY [facility] Last Admin: 12/11/19 10:48 Dose: 40 mg Documented by: Furosemide (Lasix) 40 mg IV BID@1000,1800 [facility] Last Admin: 12/11/19 10:47 Dose: 40 mg Documented by: Fentanyl () 100 mls @ 2.5 mls/hr IV UD [facility]; Protocol Last Titration: 12/11/19 10:00 Dose: 50 mcg/hr, 5 mls/hr Documented by: Famotidine 20 mg/ Sodium (Chloride) 10 mls @ 300 mls/hr IV Q12 [facility] Last Infusion: 12/11/19 11:14 Dose: Infused Documented by: Vancomycin IV Pharmacy to Dose (1 ea/ Sodium Chloride) 500 mls @ 250 mls/hr IV PRN PRN; Protocol PRN Reason: Rx to Dose Sodium Chloride () 250 mls @ 15 mls/hr IV .[id number] PRN PRN Reason: Saline Flush Sodium Chloride () 250 mls @ 15 mls/hr IV .[id number] PRN PRN Reason: Additional IVPB Infusion Norepinephrine Bitartrate 8 mg (/ Sodium Chloride) 250 mls @ 9.375 mls/hr CONT INF .[id number] [facility]; Protocol Last Titration: 12/11/19 10:16 Dose: 0 mcg/min, 0 mls/hr Documented by: Meropenem 1 gm/ Sodium (Chloride) 120 mls @ 33 mls/hr IV Q8 [facility] Last Infusion: 12/11/19 09:55 Dose: Infused Documented by: Dexmedetomidine HCl 400 mcg/ (Sodium Chloride) 100 mls @ 8.125 mls/hr CONT INF .[id number] [facility]; Protocol Last Titration: 12/11/19 10:00 Dose: 0.6 mcg/kg/hr, 9.8 mls/hr Documented by: Enteral Nutritional Formula (Vital Af 1.2 Logan Liquid) 1,000 mls @ 60 mls/hr GT .[id number] [facility] Last Admin: 12/11/19 10:47 Dose: 60 mls/hr Documented by: Vancomycin HCl 1,250 mg/ (Sodium Chloride) 275 mls @ 167 mls/hr IV Q12H [facility] Last Admin: 12/11/19 11:45 Dose: 167 mls/hr Documented by: Methylprednisolone (Solu-Medrol) 40 mg IV Q6 [facility] Last Admin: 12/11/19 11:45 Dose: 40 mg Documented by: Ondansetron HCl (Zofran) 4 mg IV Q8H PRN PRN PRN Reason: NAUSEA/VOMITING Sodium Chloride () 10 - 40 ml IV UD PRN PRN Reason: SALINE FLUSH Last Admin: 12/11/19 03:59 Dose: 20 ml Documented by: STROKE Vital Signs/Narrative: Vital Signs Pulse Resp BP Pulse Ox 12/11/19 11:00 70 18 97 12/11/19 10:00 60 12 116/58 L 88 12/11/19 09:50 102 H 14 90 12/11/19 09:00 69 15 104/53 L 90 Medical Necessity - Tobacco Use Smoking Status: Former smoker Assessment/Plan This is an 84 years old male patient with history of high-grade AV block status post pacemaker, aortic valve stenosis, pulmonary hypertension, COPD, non-small cell lung cancer in right lower lobe status post radiotherapy in 2016, dysphagia came to ER for shortness of breath, dyspneic and tachypneic, started on BiPAP without improvement, was intubated and started mechanical ventilation and he was found to have acute on chronic respiratory failure attributed to acute COPD exacerbation and suspected healthcare associated pneumonia with with septic shock and elevated troponin #1 acute on chronic respiratory failure: Patient is intubated and is on fentanyl drip. Vent management as per studio operations manager. ABG on 12/09/2019 showed 7.18/88/328 on 100% FiO2/450/7. Vent setting adjusted after that and currently on 45% FiO2/PEEP 5. 5/7: Still on vent support as per studio operations manager. Lasix resumed. 2. Septic shock (hypotension required vasopressor support) Secondary to left lower lobe healthcare care associated pneumonia: Lactic acid 2.3. Chest x-ray shows left lower lobe infiltrate. The patient had IV Levaquin and aztreonam and vancomycin in ED. Currently on IV vancomycin and meropenem. On bronchodilator. Sepsis work-up so far shows COVID-19 PCR negative. Blood culture and sputum culture are pending. Respiratory panel pending. Last respiratory panel on 10/22/2019 was negative. Levophed drip is turned off. 5/7 IV antibiotic. Respiratory panel negative. Urinary antigens are negative. #3 elevated troponin without EKG changes: Most probably secondary to demand ischemia. Telemetry shows paced rhythm. Patient has history of high-grade AV block status post pacemaker and aortic valve stenosis. Serial troponins done and elevated 0.32. 2D echocardiogram on September, revealed ejection fraction 55%, stage I diastolic function and moderate pulmonary hypertension. #4 severe COPD/chronic combined respiratory failure: On home oxygen and Trelegy last PFT in 2016 showed FEV1 44%. #5 chronic diastolic CHF: Currently it seems compensated. BNP elevated, at 296. Currently hold Lasix, losartan and metolazone, close monitoring of volume status. When blood pressure stabilizes and euvolemic can resume these medications. 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 EKG reviewed, revealed paced rhythm, heart rate has been stable. He is not on anticoagulation. #7 hypertension: Blood pressure stable at this time, hold losartan, Lasix and metolazone. #8 GERD: Start Pepcid twice daily IV. #9 Non-small cell lung cancer in right lower lobe status post radiotherapy: Last CT chest from June 2018 revealed no evidence of recurrence. Follows chief general pediatric clinic Dr. Li in [facility] and also Dr. Mccartney. Patient also has dysphagia probably secondary to physiotherapy. And required dilatation. CODE STATUS: Full code This was discussed with the patient's by the ER physician. #10 DVT prophylaxis: Subcu Lovenox. Microbiology Past 72 Hours 12/10/19 10:54 Sputum, Induced/Lukens Gram Stain - Final 12/10/19 10:54 Sputum, Induced/Lukens Respiratory Culture - Preliminary Appears to be normal respiratory james. Further studies to follow. 12/10/19 16:40 Urine Catheter - Catheter Streptococcus pneumoniae Antigen (M - Final 12/10/19 16:40 Urine Catheter - Catheter Legionella Antigen - Final 12/10/19 10:50 Mucosa - Nose Respiratory Panel (PCR) - Final 12/09/19 18:57 Mucosa - Nasopharyngeal Coronavirus COVID-19 PCR - Final Laboratory Results 12/11/19 03:55: WBC 5.1, RBC 3.18 L, Hgb 8.6 L, Hct 28.9 L, MCV 90.9, MCH 27.0, MCHC 29.8 L, RDW Std Deviation 55.7 H, RDW Coeff of Earline 16.6 H, Plt Count 145 L, MPV 9.7, Immature Gran % (Auto) 0.600, Neut % (Auto) 89.3 H, Lymph % (Auto) 6.9 L, Alexander % (Auto) 3.2, Eos % (Auto) 0.0, Baso % (Auto) 0.0, Absolute Neuts (auto) 4.5, Absolute Lymphs (auto) 0.35 L, Nucleated RBC % 0, Differential Comment COMMENT 12/11/19 03:55: Sodium 137, Potassium 4.4, Chloride 103, Carbon Dioxide 30.0, Anion Gap 4 L, BUN 21 H, Creatinine 0.66 L, Estim Creat Clear Calc 50.75, Est GFR (MDRD) Af Amer 150, Est GFR (MDRD) Non-Af 124, BUN/Creatinine Ratio 32.1 H, Glucose 142 H, Calcium 8.7, Total Bilirubin 0.30, AST 24, ALT 55, Alkaline Phosphatase 56, Total Protein 5.8 L, Albumin 2.9 L, Globulin 2.9, Albumin/Globulin Ratio 1.0 12/11/19 08:35: Vancomycin Trough 8.5 Active Medications Acetaminophen (Tylenol Liquid) 650 mg NG Q6H PRN PRN PRN Reason: HEADACHE/FEVER (T>100F) Last Admin: 12/10/19 10:32 Dose: 650 mg Documented by: Albuterol/Ipratropium (Duoneb) 3 ml INHALATION Q4H.RT [facility] Last Admin: 12/11/19 14:12 Dose: 3 ml Documented by: Chlorhexidine Gluconate () 15 ml PO BID [facility] Last Admin: 12/11/19 10:48 Dose: 15 ml Documented by: Enoxaparin Sodium (Lovenox) 40 mg SC DAILY [facility] Last Admin: 12/11/19 10:48 Dose: 40 mg Documented by: Furosemide (Lasix) 40 mg IV BID@1000,1800 [facility] Last Admin: 12/11/19 10:47 Dose: 40 mg Documented by: Fentanyl () 100 mls @ 2.5 mls/hr IV UD [facility]; Protocol Last Titration: 12/11/19 15:00 Dose: 50 mcg/hr, 5 mls/hr Documented by: Famotidine 20 mg/ Sodium (Chloride) 10 mls @ 300 mls/hr IV Q12 [facility] Last Infusion: 12/11/19 11:14 Dose: Infused Documented by: Vancomycin IV Pharmacy to Dose (1 ea/ Sodium Chloride) 500 mls @ 250 mls/hr IV PRN PRN; Protocol PRN Reason: Rx to Dose Sodium Chloride () 250 mls @ 15 mls/hr IV .[id number] PRN PRN Reason: Saline Flush Sodium Chloride () 250 mls @ 15 mls/hr IV .[id number] PRN PRN Reason: Additional IVPB Infusion Norepinephrine Bitartrate 8 mg (/ Sodium Chloride) 250 mls @ 9.375 mls/hr CONT INF .[id number] [facility]; Protocol Last Titration: 12/11/19 12:51 Dose: Infused Documented by: Meropenem 1 gm/ Sodium (Chloride) 120 mls @ 33 mls/hr IV Q8 [facility] Last Admin: 12/11/19 14:25 Dose: 33 mls/hr Documented by: Dexmedetomidine HCl 400 mcg/ (Sodium Chloride) 100 mls @ 8.125 mls/hr CONT INF .[id number] [facility]; Protocol Last Titration: 12/11/19 15:00 Dose: 0.6 mcg/kg/hr, 9.8 mls/hr Documented by: Enteral Nutritional Formula (Vital Af 1.2 Logan Liquid) 1,000 mls @ 60 mls/hr GT .[id number] [facility] Last Admin: 12/11/19 10:47 Dose: 60 mls/hr Documented by: Vancomycin HCl 1,250 mg/ (Sodium Chloride) 275 mls @ 167 mls/hr IV Q12H [facility] Last Infusion: 12/11/19 13:44 Dose: Infused Documented by: Insulin Human Lispro (Humalog Kwikpen (Bkc)) 0 unit SC Q6 [facility]; Protocol Methylprednisolone (Solu-Medrol) 40 mg IV Q6 [facility] Last Admin: 12/11/19 11:45 Dose: 40 mg Documented by: Ondansetron HCl (Zofran) 4 mg IV Q8H PRN PRN PRN Reason: NAUSEA/VOMITING Sodium Chloride () 10 - 40 ml IV UD PRN PRN Reason: SALINE FLUSH Last Admin: 12/11/19 03:59 Dose: 20 ml Documented by: Inpatient E&M: [id number] Subs Hosp L2
--- NOTE | 2019-12-11 12:21 | PCM.RX.CS ---
Consult Pharmacy has been consulted to manage selected antiobiotic: Vancomycin Type of Consult: Follow-up Suspected Infection: Pneumonia Prior Doses of Antibiotics Received/Current Regimen: Has been on 750mg iv q12h. Labs: Sodium 137 mmol/L (136-145) 12/11/19 03:55 Potassium 4.4 mmol/L (3.5-5.1) 12/11/19 03:55 Chloride 103 mmol/L (98-107) 12/11/19 03:55 Carbon Dioxide 30.0 mmol/L (21.0-32.0) 12/11/19 03:55 Anion Gap 4 (5-15) L 12/11/19 03:55 BUN 21 mg/dL (7-18) H 12/11/19 03:55 Creatinine 0.66 mg/dL (0.70-1.30) L 12/11/19 03:55 Est GFR (MDRD) Af Amer 150 mL/min (>60) 12/11/19 03:55 Est GFR (MDRD) Non-Af 124 mL/min (>60) 12/11/19 03:55 BUN/Creatinine Ratio 32.1 RATIO (10-20) H 12/11/19 03:55 Glucose 142 mg/dL (74-106) H 12/11/19 03:55 Vancomycin Trough 8.5 ug/mL (5.0-15.0) 12/11/19 08:35 Microbiology: Microbiology 12/10/19 10:54 Sputum, Induced/Lukens Gram Stain - Final 12/10/19 16:40 Urine Catheter - Catheter Streptococcus pneumoniae Antigen (M - Final 12/10/19 16:40 Urine Catheter - Catheter Legionella Antigen - Final 12/10/19 10:50 Mucosa - Nose Respiratory Panel (PCR) - Final 12/09/19 18:57 Mucosa - Nasopharyngeal Coronavirus COVID-19 PCR - Final Weight used for dosin kg Estimated Creatinine Clearance: ~51ml/min Goal Trough: 15-20 mcg/mL Pharmacy Plan for Drug Dosing: Trough today 8.5 (goal 15-20 mcg/ml). Renal function of Cr 0.66 with CrCl ~51ml/min. Will increase dose to 1250mg iv q12h and get another trough after 3 doses. Pharmacy Service will continue to monitor and adjust dosing as required. Follow-Up Labs: Trough Vancomycin - 5.8.20 @2230 before 2300 dose
[2019-12-11] MEDS: Insulin Lispro 100 UNIT/ML INSULN.PEN SC ×2 (18:00→23:24)
[2019-12-11 18:01] LABS: Bedside Glucose 160 mg/dL (70-110)
--- NOTE | 2019-12-11 19:00 | NURSING ---
Fentanyl gtt infusing at 50mcg/hr through the right AC IV. CPOT remains 0/1.
--- NOTE | 2019-12-11 19:33 | NURSING ---
Report received from Benja Bello rn, fentanyl gtt remains infusing at 50 mcg/hr.
[2019-12-11] MEDS: fentaNYL drip 100 ML 5 MCG IV (19:50)
[2019-12-12] VITALS (39 sets, daily range): BP systolic 114–183; BP diastolic 51–114; PULSE 32–124; RESP 12–109; TEMP 35.9–37.8; O2SAT 88–100
[2019-12-12 01:46] LABS: Bedside Glucose 153 mg/dL (70-110)
[2019-12-12] MEDS: Ipratropium/Albuterol Sulfate 3 ML AMPUL.NEB INHALATION ×6 (02:09→22:50)
[2019-12-12] MEDS: 0.9% Saline Lock 10 ML Syringe IV ×3 (03:33→21:22)
[2019-12-12 03:45] LABS: Absolute Lymphocyte Count 0.37 X10^3/uL (0.83-4.51); Absolute Neutrophil Count 6.4 X10^3/uL (2.0-7.7); Hematocrit 29.6 % (40-54); Hemoglobin 9.3 g/dL (13.0-16.5); Lymphocyte # 0.37 X10^3/ul (4.0); Lymphocyte % 5.2 % (19-41); Mean Corp Hgb Conc 31.4 g/dL (32-36); Mean Corpuscular Hgb 27.5 pg (27.0-32.0); Mean Corpuscular Volume 87.6 fL (80-94); Mean Platelet Vol. 9.4 fl (6.2-12.0); Monocyte# 0.34 X10^3/uL; Monocyte% 4.8 % (0-10); NRBC Flagged by Analyzer 0 % (0-5); Neutrophil # 6.38 X10^3/uL (2.7-7.7); Neutrophil % 89.6 % (47-70); POSITIVE DIFFERENTIAL YES; Platelet Count 152 K/mm3 (150-450); RBC Distribution Width CV 16.5 % (11.6-14.6); RBC Distribution Width SD 52.8 fl (35.1-43.9); Red Blood Count 3.38 M/mm3 (4.6-6.2); White Blood Count 7.1 K/mm3 (4.4-11.0)
[2019-12-12 03:46] LABS: Differential Indicated SCAN CRITERIA MET
[2019-12-12 04:03] LABS: ALB/GLOB Ratio 0.9 RATIO (0.9-2.4); AST(SGOT) 20 U/L (15-37); Alanine Aminotransfer ALT/SGPT 64 U/L (16-61); Albumin, Serum 2.8 g/dL (3.2-5.0); Alkaline Phosphatase 52 U/L (45-117); Anion Gap 5 (5-15); BUN 28 mg/dL (7-18); BUN/Creat Ratio 60.6 RATIO (10-20); Calcium,Total 8.5 mg/dL (8.5-10.1); Chloride 102 mmol/L (98-107); Creatinine, Serum 0.46 mg/dL (0.70-1.30); EST Glomerular Filtration Rate 185 mL/min (>60); Est Glom Filt Rate - Afr Amer 224 mL/min (>60); Estimated Creatinine Clearance 51.14 ml/min; Glucose 149 mg/dL (74-106); Protein, Total 5.8 g/dL (6.4-8.2); Sodium Level 139 mmol/L (136-145)
[2019-12-12 04:04] LABS: Differential Comment SCANNED
[2019-12-12] MEDS: Insulin Lispro 100 UNIT/ML INSULN.PEN SC (05:11)
--- NOTE | 2019-12-12 06:05 | PN_ITS ---
Subjective: The patient was seen and examined at the bedside this morning. Events from the last 24 hours have been reviewed. The patient is currently afebrile, hemodynamically stable and maintaining appropriate oxygen saturations on spontaneous mode of mechanical ventilation with an FiO2 requirement of 40%. The patient passed his spontaneous breathing trial this morning. The patient was started back on IV Lasix twice daily yesterday. He is currently documented to be overall net +3.6 L for the hospital admission. Creatinine is stable. Objective: The patient's most recent lab work, culture data and imaging studies have all been personally reviewed. Surface echocardiogram from September 2019 revealed normal LV size and function with an ejection fraction of 55% and stage I diastolic dysfunction. Pulmonary artery systolic pressure was estimated to be 50 mmHg. Moderate aortic stenosis was also noted. COVID PCR was negative. Respiratory viral panel was negative. Strep and urine Legionella antigens were negative. Blood and sputum cultures have been unrevealing to date. General: Alert, Cooperative, - - Currently tolerating spontaneous mode of mechanical ventilation. HEENT: Atraumatic, PERRLA, Normocephalic Oral: No Gingival or Mucosal Lesions/ Ulcerations, - - Endotracheal and OG tubes remain in place. Neck: Supple, No Nodes, Trachea Midline Lungs: No rhonchi, No wheeze, No rales, Diminished, Tachypneic Cardiovascular: Normal S1, Normal S2, Murmur, Tachycardic Abdomen: Bowel Sounds Present, Soft, Non Tender Extremities: No clubbing, No cyanosis Skin: No breakdown Musculoskeletal: No Tenderness to Palpation of Joints or Extremities Lymphatic: No Cervical, Supraclavicular, or Inguinal Adenopathy Neurological: Neuro grossly intact, - - Alert and following commands appropriately. Psych/Mental Status: Anxious Vital Signs Temp Pulse Resp BP Pulse Ox 97.2 F L 63 16 154/66 H 94 12/12/19 06:00 12/12/19 06:00 12/12/19 06:00 12/12/19 06:00 12/12/19 06:00 Oxygen Delivery Method Mechanical Ventilator Weight: 142 lb 6.698 oz Body Mass Index (BMI) 20.0 Intake and Output for Last 24 Hours 12/10/19 12/11/19 12/12/19 23:59 23:59 23:59 Intake Total 3039.10 / 3074.10 1559.15 / 1573.95 708.35 / 708.35 Output Total 840 / 840 2440 / 2440 225 / 225 Balance 2199.10 / 2234.10 -880.85 / -866.05 483.35 / 483.35 Labs (Last 48 Hours) 12/09/19 12/11/19 12/11/19 18:57 03:55 03:55 WBC 5.1 RBC 3.18 L Hgb 8.6 L Hct 28.9 L MCV 90.9 MCH 27.0 MCHC 29.8 L RDW Std Deviation 55.7 H RDW Coeff of Earline 16.6 H Plt Count 145 L MPV 9.7 Immature Gran % (Auto) 0.600 Neut % (Auto) 89.3 H Lymph % (Auto) 6.9 L Stanley % (Auto) 3.2 Eos % (Auto) 0.0 Baso % (Auto) 0.0 Absolute Neuts (auto) 4.5 Absolute Lymphs (auto) 0.35 L Nucleated RBC % 0 Differential Comment COMMENT Sodium 137 Potassium 4.4 Chloride 103 Carbon Dioxide 30.0 Anion Gap 4 L BUN 21 H Creatinine 0.66 L Estim Creat Clear Calc 50.75 Est GFR (MDRD) Af Amer 150 Est GFR (MDRD) Non-Af 124 BUN/Creatinine Ratio 32.1 H Glucose 142 H Calcium 8.7 Total Bilirubin 0.30 AST 24 ALT 55 Alkaline Phosphatase 56 Total Protein 5.8 L Albumin 2.9 L Globulin 2.9 Albumin/Globulin Ratio 1.0 Vancomycin Trough COVID-19 (SKINNY) Cancelled POC Glucose 12/11/19 12/11/19 12/11/19 08:35 17:49 23:22 WBC RBC Hgb Hct MCV MCH MCHC RDW Std Deviation RDW Coeff of Earline Plt Count MPV Immature Gran % (Auto) Neut % (Auto) Lymph % (Auto) Stanley % (Auto) Eos % (Auto) Baso % (Auto) Absolute Neuts (auto) Absolute Lymphs (auto) Nucleated RBC % Differential Comment Sodium Potassium Chloride Carbon Dioxide Anion Gap BUN Creatinine Estim Creat Clear Calc Est GFR (MDRD) Af Amer Est GFR (MDRD) Non-Af BUN/Creatinine Ratio Glucose Calcium Total Bilirubin AST ALT Alkaline Phosphatase Total Protein Albumin Globulin Albumin/Globulin Ratio Vancomycin Trough 8.5 COVID-19 (SKINNY) POC Glucose 160 H 153 H 05/08/20 05/08/20 03:30 03:30 WBC 7.1 RBC 3.38 L Hgb 9.3 L Hct 29.6 L MCV 87.6 MCH 27.5 MCHC 31.4 L D RDW Std Deviation 52.8 H RDW Coeff of Earline 16.5 H Plt Count 152 MPV 9.4 Immature Gran % (Auto) 0.400 Neut % (Auto) 89.6 H Lymph % (Auto) 5.2 L Stanley % (Auto) 4.8 Eos % (Auto) 0.0 Baso % (Auto) 0.0 Absolute Neuts (auto) 6.4 Absolute Lymphs (auto) 0.37 L Nucleated RBC % 0 Differential Comment SCANNED Sodium 139 Potassium 4.0 Chloride 102 Carbon Dioxide 32.0 Anion Gap 5 BUN 28 H Creatinine 0.46 L Estim Creat Clear Calc 51.14 Est GFR (MDRD) Af Amer 224 Est GFR (MDRD) Non-Af 185 BUN/Creatinine Ratio 60.6 H Glucose 149 H Calcium 8.5 Total Bilirubin 0.30 AST 20 ALT 64 H Alkaline Phosphatase 52 Total Protein 5.8 L Albumin 2.8 L Globulin 3.0 Albumin/Globulin Ratio 0.9 Vancomycin Trough COVID-19 (SKINNY) POC Glucose Microbiology 12/10/19 10:54 Sputum, Induced/Lukens Gram Stain - Final 12/10/19 10:54 Sputum, Induced/Lukens Respiratory Culture - Preliminary Appears to be normal respiratory james. Further studies to follow. 12/10/19 16:40 Urine Catheter - Catheter Streptococcus pneumoniae Antigen (M - Final 12/10/19 16:40 Urine Catheter - Catheter Legionella Antigen - Final 12/10/19 10:50 Mucosa - Nose Respiratory Panel (PCR) - Final 12/09/19 18:57 Mucosa - Nasopharyngeal Coronavirus COVID-19 PCR - Final Clinical Impression(s) from Imaging Studies Chest X-Ray 12/09/19 17:50 IMPRESSION: Stable significant COPD changes Worsening left lower lobe infiltrate likely pneumonia, atypical viral pneumonia cannot be excluded Placement of endotracheal tube and orogastric tubes as above Stable small loculated right pleural effusion Healing subacute right rib fractures, stable osteopenia stable mild multilevel compression fractures lower to mid thoracic spine and upper lumbar spine. Electronically Signed: Bairon Jimenez, at 18:07 EDT Tel , Service support , Medical Necessity - Tobacco Use Smoking Status: Former smoker Assessment/Plan RECOMMENDATIONS: 1. Okay to proceed with a trial of extubation. Once extubated, I would transition the patient directly to AVAPS for several hours. 2. Wean oxygen to maintain saturations at or above 88%. 3. Continue bronchodilators and IV steroids. 4. Once weaned from AVAPS, perform swallow evaluation and advance diet. 5. Continue scheduled IV Lasix. IMPRESSIONS: 1. Acute on chronic combined respiratory failure Likely multifactorial in etiology with underlying healthcare associated pneumonia and possible heart failure contributing. The patient has received adequate volume resuscitation. Plan to continue to wean FiO2 and PEEP to maintain oxygen saturations at or above 88%. The patient is currently a candidate for a trial of extubation. Once extubated, he will be transitioned directly to noninvasive positive pressure ventilatory support. Plan to continue scheduled bronchodilators and steroids. Once the patient has been weaned from AVAPS a swallow evaluation can be completed in his diet advanced accordingly. Continue empiric antimicrobial coverage. 2. Septic shock with concern for healthcare associated pneumonia Resolved. Continue current supportive measures as noted above, with broad- spectrum antimicrobial coverage. The patient has been weaned from vasopressor support and remains hemodynamically stable at this time. 3. Acute on chronic heart failure with preserved ejection fraction Continue scheduled Lasix as ordered. 4. Indeterminate cardiac enzymes/paroxysmal atrial flutter Most likely related to demand ischemia in the setting of #1 and 2. Continue current medical management. 5. Hypertension/hyperlipidemia/personal history of lung cancer/tobacco dependency in remission Complicates care, management, recovery and prognosis. Continue to hold home antihypertensives for now. Physical therapy to evaluate the patient once medically stabilized. TIME: 40 minutes of critical care time, independent of procedures, was spent addressing the patient's acute on chronic combined respiratory failure, septic shock secondary to healthcare associated pneumonia, acute on chronic heart failure with preserved ejection fraction, indeterminate cardiac enzymes, review of all data and collaboration with the care team. ([id number]) [id number] Critical care first hour
[2019-12-12 06:15] LABS: Bedside Glucose 153 mg/dL (70-110)
--- NOTE | 2019-12-12 06:40 | NURSING ---
Pt extubated at this time to bipap/avaps 50%.
[2019-12-12] MEDS: Furosemide 40 MG/4 ML Vial IV ×3 (07:53→21:22)
--- NOTE | 2019-12-12 09:57 | PN_ITS ---
Reason for Visit: Acute chronic hypoxic and hypercarbic combined respiratory failure. Pneumonia Objective: Seen and examined. No fever or chills. Patient extubated in the morning. Currently on AVAPS 50% FiO2 respiratory rate 18/min, pulse ox 95% On exam HEENT: Atraumatic awake and alert, PERRLA, EOMI, Normocephalic Oral: On NIPPV with mask Neck: Supple, No JVD, Negative Carotid Bruits Lungs: - AVAPS Air entry severely diminished bilaterally Cardiovascular: Normal S1, Normal S2, No murmurs, Paced rhythm. Abdomen: Bowel Sounds Present, Soft, Non Tender, Non-Distended. Genitourinary: Clear urine in the Monzon catheter no suprapubic tenderness Extremities: No edema, Capillary Refill Less than 3 Seconds Musculoskeletal: No Tenderness to Palpation of Joints or Extremities, Arthritic Changes Neurological: Cranial nerves II-XII grossly intact, Deep Tendon Reflexes 2+/4 and Symmetrical, Neuro grossly intac Vitals/I&O's: Vital Signs Temp Pulse Resp BP Pulse Ox 98.2 F 96 18 130/114 H 95 12/12/19 08:00 12/12/19 08:00 12/12/19 08:00 12/12/19 08:00 12/12/19 08:00 Oxygen Delivery Method Bi-pap Weight: 142 lb 6.698 oz Body Mass Index (BMI) 20.0 Intake and Output for Last 24 Hours 12/10/19 12/11/19 12/12/19 23:59 23:59 23:59 Intake Total 3039.10 / 3074.10 1559.15 / 1573.95 866.24 / 866.24 Output Total 840 / 840 2440 / 2440 225 / 225 Balance 2199.10 / 2234.10 -880.85 / -866.05 641.24 / 641.24 Microbiology Past 72 Hours 12/09/19 18:05 Blood Culture (Wb) - Anticubital Left Blood Culture - Preliminary No growth in 48 hours. 12/09/19 16:25 Blood Culture (Wb) - Anticubital Right Blood Culture - Preliminary No growth in 48 hours. 12/10/19 10:54 Sputum, Induced/Lukens Gram Stain - Final 12/10/19 10:54 Sputum, Induced/Lukens Respiratory Culture - Preliminary Appears to be normal respiratory james. Further studies to follow. 12/10/19 16:40 Urine Catheter - Catheter Streptococcus pneumoniae Antigen (M - Final 12/10/19 16:40 Urine Catheter - Catheter Legionella Antigen - Final 12/10/19 10:50 Mucosa - Nose Respiratory Panel (PCR) - Final 12/09/19 18:57 Mucosa - Nasopharyngeal Coronavirus COVID-19 PCR - Final Laboratory Results 12/11/19 17:49: POC Glucose 160 H 12/11/19 23:22: POC Glucose 153 H 12/12/19 03:30: WBC 7.1, RBC 3.38 L, Hgb 9.3 L, Hct 29.6 L, MCV 87.6, MCH 27.5, MCHC 31.4 L D, RDW Std Deviation 52.8 H, RDW Coeff of Earline 16.5 H, Plt Count 152, MPV 9.4, Immature Gran % (Auto) 0.400, Neut % (Auto) 89.6 H, Lymph % (Auto) 5.2 L, [place] % (Auto) 4.8, Eos % (Auto) 0.0, Baso % (Auto) 0.0, Absolute Neuts (auto) 6.4, Absolute Lymphs (auto) 0.37 L, Nucleated RBC % 0, Differential Comment SC ANNED 12/12/19 03:30: Sodium 139, Potassium 4.0, Chloride 102, Carbon Dioxide 32.0, Anion Gap 5, BUN 28 H, Creatinine 0.46 L, Estim Creat Clear Calc 51.14, Est GFR (MDRD) Af Amer 224, Est GFR (MDRD) Non-Af 185, BUN/Creatinine Ratio 60.6 H, Glucose 149 H, Calcium 8.5, Total Bilirubin 0.30, AST 20, ALT 64 H, Alkaline Phosphatase 52, Total Protein 5.8 L, Albumin 2.8 L, Globulin 3.0, Albumin/Globulin Ratio 0.9 12/12/19 05:10: POC Glucose 153 H Current Medications Acetaminophen (Tylenol Liquid) 650 mg NG Q6H PRN PRN PRN Reason: HEADACHE/FEVER (T>100F) Last Admin: 12/10/19 10:32 Dose: 650 mg Documented by: Albuterol/Ipratropium (Duoneb) 3 ml INHALATION Q4H.RT WEI Last Admin: 12/12/19 07:11 Dose: 3 ml Documented by: Enoxaparin Sodium (Lovenox) 40 mg SC DAILY [facility] Last Admin: 12/11/19 10:48 Dose: 40 mg Documented by: Furosemide (Lasix) 40 mg IV Q8 [facility] Last Admin: 12/12/19 07:53 Dose: 40 mg Documented by: Famotidine 20 mg/ Sodium (Chloride) 10 mls @ 300 mls/hr IV Q12 [facility] Last Infusion: 12/11/19 21:14 Dose: Infused Documented by: Vancomycin IV Pharmacy to Dose (1 ea/ Sodium Chloride) 500 mls @ 250 mls/hr IV PRN PRN; Protocol PRN Reason: Rx to Dose Sodium Chloride () 250 mls @ 15 mls/hr IV .[id number] PRN PRN Reason: Saline Flush Sodium Chloride () 250 mls @ 15 mls/hr IV .[id number] PRN PRN Reason: Additional IVPB Infusion Norepinephrine Bitartrate 8 mg (/ Sodium Chloride) 250 mls @ 9.375 mls/hr CONT INF .[id number] [facility]; Protocol Last Admin: 12/11/19 21:36 Dose: Not Given Documented by: Meropenem 1 gm/ Sodium (Chloride) 120 mls @ 33 mls/hr IV Q8 [facility] Last Infusion: 12/12/19 09:01 Dose: Infused Documented by: Vancomycin HCl 1,250 mg/ (Sodium Chloride) 275 mls @ 167 mls/hr IV Q12H [facility] Last Infusion: 12/12/19 01:02 Dose: Infused Documented by: Methylprednisolone (Solu-Medrol) 40 mg IV Q6 [facility] Last Admin: 12/12/19 05:08 Dose: 40 mg Documented by: Ondansetron HCl (Zofran) 4 mg IV Q8H PRN PRN PRN Reason: NAUSEA/VOMITING Sodium Chloride () 10 - 40 ml IV UD PRN PRN Reason: SALINE FLUSH Last Admin: 12/12/19 05:08 Dose: 10 ml Documented by: STROKE Vital Signs/Narrative: Vital Signs Temp Pulse Resp BP Pulse Ox 12/12/19 08:00 98.2 F 96 18 130/114 H 95 12/12/19 07:10 112 H 26 H 12/12/19 07:00 98.3 F 120 H 23 H 159/96 H 97 12/12/19 06:40 124 H 26 H 97 12/12/19 06:00 97.2 F L 63 16 154/66 H 94 Medical Necessity - Tobacco Use Smoking Status: Former smoker Assessment/Plan This is an 84 years old male patient with history of high-grade AV block status post pacemaker, aortic valve stenosis, pulmonary hypertension, COPD, non-small cell lung cancer in right lower lobe status post radiotherapy in 2016, dysphagia came to ER for shortness of breath, dyspneic and tachypneic, started on BiPAP without improvement, was intubated and started mechanical ventilation and he was found to have acute on chronic respiratory failure attributed to acute COPD exacerbation and suspected healthcare associated pneumonia with with septic shock and elevated troponin #1 acute on chronic respiratory failure, multifactorial, healthcare acid pneumonia, possible heart failure exacerbation: Patient is intubated and is on fentanyl drip. Vent management as per kiln firer helper. ABG on 12/09/2019 showed 7.18/88/328 on 100% FiO2/450/7. Vent setting adjusted after that and currently on 45% FiO2/PEEP 5. 12/10: Still on vent support as per kiln firer helper. Lasix resumed. 12/11: Patient extubated and AVAPS. Poor lung function with severely diminished air entry 2. Septic shock (hypotension required vasopressor support) Secondary to left lower lobe healthcare care associated pneumonia: Lactic acid 2.3. Chest x-ray shows left lower lobe infiltrate. The patient had IV Levaquin and aztreonam and vancomycin in ED. Currently on IV vancomycin and meropenem. On bronchodilator. Sepsis work-up so far shows COVID-19 PCR negative. Blood culture and sputum culture are pending. Respiratory panel pending. Last respiratory panel on 10/22/2019 was negative. Levophed drip is turned off. 12/10 IV antibiotic. Respiratory panel negative. Urinary antigens are negative. 12/11: Infectious work-up was negative. On antibiotic Vanco and meropenem #3 elevated troponin without EKG changes: Most probably secondary to demand ischemia. Telemetry shows paced rhythm. Patient has history of high-grade AV block status post pacemaker and aortic valve stenosis. Serial troponins done and elevated 0.32. 2D echocardiogram on September, revealed ejection fraction 55%, stage I diastolic function and moderate pulmonary hypertension. #4 severe COPD/chronic combined respiratory failure: On home oxygen and Trelegy last PFT in 2017 showed FEV1 44%. #5 Acute on chronic diastolic CHF: As per H&P initially was compensated but exacerbated secondary to fluid given for septic shock. BNP elevated, at 296. Lasix is resumed. On losartan 25 mg daily #6 paroxysmal atrial flutter/Mobitz type II second-degree AV block: Status post pacemaker. EKG reviewed, revealed paced rhythm, heart rate has been stable. He is not on anticoagulation. #7 hypertension: Blood pressure stable at this time, hold losartan, Lasix and metolazone. #8 GERD: Start Pepcid twice daily IV. #9 Non-small cell lung cancer in right lower lobe status post radiotherapy: Last CT chest from June 2018 revealed no evidence of recurrence. Follows customer success representative Dr. Li in [facility] and also Dr. Mccartney. Patient also has dysphagia probably secondary to radiotherapy. Patient had required dilatation. CODE STATUS: Full code #10 DVT prophylaxis: Subcu Lovenox. Microbiology Past 72 Hours 12/10/19 10:54 Sputum, Induced/Lukens Gram Stain - Final 12/10/19 10:54 Sputum, Induced/Lukens Respiratory Culture - Final Culture exhibits no growth. 12/09/19 18:05 Blood Culture (Wb) - Anticubital Left Blood Culture - Preliminary No growth in 48 hours. 12/09/19 16:25 Blood Culture (Wb) - Anticubital Right Blood Culture - Preliminary No growth in 48 hours. 12/10/19 16:40 Urine Catheter - Catheter Streptococcus pneumoniae Antigen (M - Final 12/10/19 16:40 Urine Catheter - Catheter Legionella Antigen - Final 12/10/19 10:50 Mucosa - Nose Respiratory Panel (PCR) - Final 12/09/19 18:57 Mucosa - Nasopharyngeal Coronavirus COVID-19 PCR - Final Laboratory Results 12/11/19 17:49: POC Glucose 160 H 12/11/19 23:22: POC Glucose 153 H 12/12/19 03:30: WBC 7.1, RBC 3.38 L, Hgb 9.3 L, Hct 29.6 L, MCV 87.6, MCH 27.5, MCHC 31.4 L D, RDW Std Deviation 52.8 H, RDW Coeff of Earline 16.5 H, Plt Count 152, MPV 9.4, Immature Gran % (Auto) 0.400, Neut % (Auto) 89.6 H, Lymph % (Auto) 5.2 L, [place] % (Auto) 4.8, Eos % (Auto) 0.0, Baso % (Auto) 0.0, Absolute Neuts (auto) 6.4, Absolute Lymphs (auto) 0.37 L, Nucleated RBC % 0, Differential Comment SCANNED 12/12/19 03:30: Sodium 139, Potassium 4.0, Chloride 102, Carbon Dioxide 32.0, Anion Gap 5, BUN 28 H, Creatinine 0.46 L, Estim Creat Clear Calc 51.14, Est GFR (MDRD) Af Amer 224, Est GFR (MDRD) Non-Af 185, BUN/Creatinine Ratio 60.6 H, Glucose 149 H, Calcium 8.5, Total Bilirubin 0.30, AST 20, ALT 64 H, Alkaline Phosphatase 52, Total Protein 5.8 L, Albumin 2.8 L, Globulin 3.0, Albumin/Globulin Ratio 0.9 12/12/19 05:10: POC Glucose 153 H Inpatient E&M: 69971 Subs Hosp L3
[2019-12-12] MEDS: Famotidine 200 MG/20 ML MDV 20 MG in 0.9% Normal Saline (Pres. free 8 ML 300 MG IV ×2 (10:08→22:38)
[2019-12-12] MEDS: Enoxaparin 40 MG/0.4 ML Syringe SC (10:12)
--- NOTE | 2019-12-12 10:44 | CASEMGMT ---
RN CM Note: participated in ICU interdisciplinary rounds. Pt extubated, on Bipap 50%. CM will continue to follow for dc planning of home with HHC vs SNF. Undetermined @ this time, will await PT/OT evaluations. Pt name is on TCU list. Payton LONGN RN ACM
[2019-12-12 23:25] LABS: Vancomycin, Trough Level 20.2 ug/mL (5.0-15.0)
--- NOTE | 2019-12-12 23:48 | PCM.RX.CS ---
Consult Pharmacy has been consulted to manage selected antiobiotic: Vancomycin Type of Consult: Follow-up Suspected Infection: Sepsis, Pneumonia Labs: Sodium 139 mmol/L (136-145) 12/12/19 03:30 Potassium 4.0 mmol/L (3.5-5.1) 12/12/19 03:30 Chloride 102 mmol/L (98-107) 12/12/19 03:30 Carbon Dioxide 32.0 mmol/L (21.0-32.0) 12/12/19 03:30 Anion Gap 5 (5-15) 12/12/19 03:30 BUN 28 mg/dL (7-18) H 12/12/19 03:30 Creatinine 0.46 mg/dL (0.70-1.30) L 12/12/19 03:30 Est GFR (MDRD) Af Amer 224 mL/min (>60) 12/12/19 03:30 Est GFR (MDRD) Non-Af 185 mL/min (>60) 12/12/19 03:30 BUN/Creatinine Ratio 60.6 RATIO (10-20) H 12/12/19 03:30 Glucose 149 mg/dL (74-106) H 12/12/19 03:30 Vancomycin Trough 20.2 ug/mL (5.0-15.0) H 12/12/19 22:35 Microbiology: Microbiology 12/10/19 10:54 Sputum, Induced/Lukens Gram Stain - Final 12/10/19 10:54 Sputum, Induced/Lukens Respiratory Culture - Final Culture exhibits no growth. 12/09/19 18:05 Blood Culture (Wb) - Anticubital Left Blood Culture - Preliminary No growth in 48 hours. 12/09/19 16:25 Blood Culture (Wb) - Anticubital Right Blood Culture - Preliminary No growth in 48 hours. 12/10/19 16:40 Urine Catheter - Catheter Streptococcus pneumoniae Antigen (M - Final 12/10/19 16:40 Urine Catheter - Catheter Legionella Antigen - Final 12/10/19 10:50 Mucosa - Nose Respiratory Panel (PCR) - Final 12/09/19 18:57 Mucosa - Nasopharyngeal Coronavirus COVID-19 PCR - Final Goal Trough: 15-20 mcg/mL Pharmacy Plan for Drug Dosing: Pharmacy Service will continue to monitor and adjust dosing as required. TROUGH 20.2 NO CHANGES NOW, REDRAW TROUGH TOMORROW NIGHT SCr DECREASED TO 0.46 FROM 0.66 Follow-Up Labs: Trough Vancomycin Labs to be done on [date and time ordered]: 12/12 @ 2730
[2019-12-13] VITALS (34 sets, daily range): BP systolic 106–143; BP diastolic 56–83; PULSE 80–117; RESP 12–34; TEMP 37.2–37.7; O2SAT 88–100
[2019-12-13] MEDS: Ipratropium/Albuterol Sulfate 3 ML AMPUL.NEB INHALATION ×6 (02:04→22:32)
[2019-12-13] MEDS: Furosemide 40 MG/4 ML Vial IV ×3 (05:14→19:35)
[2019-12-13 05:27] LABS: Hematocrit 30.9 % (40-54); Hemoglobin 9.4 g/dL (13.0-16.5); Lymphocyte % 5.9 % (19-41); Mean Corp Hgb Conc 30.4 g/dL (32-36); Mean Corpuscular Volume 88.8 fL (80-94); Mean Platelet Vol. 9.9 fl (6.2-12.0); Monocyte% 5.9 % (0-10); NRBC Flagged by Analyzer 0 % (0-5); Neutrophil # 5.96 X10^3/uL (2.7-7.7); Neutrophil % 87.5 % (47-70); POSITIVE DIFFERENTIAL YES; POSITIVE MORPHOLOGY YES; Platelet Count 168 K/mm3 (150-450); RBC Distribution Width CV 16.9 % (11.6-14.6); RBC Distribution Width SD 55.1 fl (35.1-43.9); Red Blood Count 3.48 M/mm3 (4.6-6.2); White Blood Count 6.8 K/mm3 (4.4-11.0)
[2019-12-13 05:34] LABS: Differential Indicated SCAN CRITERIA MET
[2019-12-13 05:40] LABS: Anion Gap 4 (5-15); BUN 27 mg/dL (7-18); BUN/Creat Ratio 46.4 RATIO (10-20); Calcium,Total 8.6 mg/dL (8.5-10.1); Chloride 100 mmol/L (98-107); Creatinine, Serum 0.58 mg/dL (0.70-1.30); EST Glomerular Filtration Rate 142 mL/min (>60); Est Glom Filt Rate - Afr Amer 171 mL/min (>60); Estimated Creatinine Clearance 48.85 ml/min; Glucose 112 mg/dL (74-106); Potassium 3.2 mmol/L (3.5-5.1); Sodium Level 142 mmol/L (136-145)
[2019-12-13 05:43] LABS: Differential Comment SCANNED; Reactive Lymphocyte 1+
--- NOTE | 2019-12-13 06:50 | PCM.PN.INT ---
Subjective: The patient was seen and examined at the bedside this morning. Events from the last 24 hours have been reviewed. The patient is currently afebrile, hemodynamically stable and maintaining appropriate oxygen saturations on AVAPS with an FIO2 of 40%. The patient was able to take breaks from his noninvasive positive pressure ventilatory support on nasal cannula. Unfortunately, the patient failed his swallow evaluation yesterday. Speech therapy is planning to reevaluate him today. The patient has been diuresing well with IV Lasix. Potassium is low this morning at 3.2. Objective: The patient's most recent lab work, culture data and imaging studies have all been personally reviewed. Surface echocardiogram from September 2019 revealed normal LV size and function with an ejection fraction of 55% and stage I diastolic dysfunction. Pulmonary artery systolic pressure was estimated to be 50 mmHg. Moderate aortic stenosis was also noted. COVID PCR was negative. Respiratory viral panel was negative. Strep and urine Legionella antigens were negative. Blood and sputum cultures have been unrevealing to date. General: Alert, Cooperative HEENT: Atraumatic, Normocephalic Oral: Moist Mucosa Neck: Supple, No Nodes, Trachea Midline Lungs: No rhonchi, No wheeze, No rales, Diminished Cardiovascular: Regular rate, Normal S1, Normal S2, Murmur Abdomen: Bowel Sounds Present, Soft, Non Tender Extremities: No clubbing, No cyanosis Skin: No breakdown Musculoskeletal: No Tenderness to Palpation of Joints or Extremities Lymphatic: No Cervical, Supraclavicular, or Inguinal Adenopathy Neurological: Neuro grossly intact Psych/Mental Status: Normal Affect, Appropriate Vital Signs Temp Pulse Resp BP Pulse Ox 99.1 F 91 25 H 116/59 L 94 12/13/19 06:00 12/13/19 06:00 12/13/19 06:00 12/13/19 06:00 12/13/19 06:00 Oxygen Flow Rate (L/min) 6 Oxygen Delivery Method Bi-pap Weight: 136 lb 0.403 oz Body Mass Index (BMI) 20.0 Intake and Output for Last 24 Hours 12/11/19 12/12/19 12/13/19 23:59 23:59 23:59 Intake Total 1559.15 / 1573.95 1287.61 / 1287.61 436.5 / 436.5 Output Total 2440 / 2440 2925 / 4125 1700 / 1700 Balance -880.85 / -866.05 -1637.39 / -2837.39 -1263.5 / -1263.5 Labs (Last 48 Hours) 12/11/19 12/11/19 12/11/19 08:35 17:49 23:22 WBC RBC Hgb Hct MCV MCH MCHC RDW Std Deviation RDW Coeff of Earline Plt Count MPV Immature Gran % (Auto) Neut % (Auto) Lymph % (Auto) [place] % (Auto) Eos % (Auto) Baso % (Auto) Absolute Neuts (auto) Absolute Lymphs (auto) Nucleated RBC % Differential Comment Reactive Lymphocytes Sodium Potassium Chloride Carbon Dioxide Anion Gap BUN Creatinine Estim Creat Clear Calc Est GFR (MDRD) Af Amer Est GFR (MDRD) Non-Af BUN/Creatinine Ratio Glucose Calcium Total Bilirubin AST ALT Alkaline Phosphatase Total Protein Albumin Globulin Albumin/Globulin Ratio Vancomycin Trough 8.5 POC Glucose 160 H 153 H 12/12/19 12/12/19 12/12/19 03:30 03:30 05:10 WBC 7.1 RBC 3.38 L Hgb 9.3 L Hct 29.6 L MCV 87.6 MCH 27.5 MCHC 31.4 L D RDW Std Deviation 52.8 H RDW Coeff of Earline 16.5 H Plt Count 152 MPV 9.4 Immature Gran % (Auto) 0.400 Neut % (Auto) 89.6 H Lymph % (Auto) 5.2 L [place] % (Auto) 4.8 Eos % (Auto) 0.0 Baso % (Auto) 0.0 Absolute Neuts (auto) 6.4 Absolute Lymphs (auto) 0.37 L Nucleated RBC % 0 Differential Comment SCANNED Reactive Lymphocytes Sodium 139 Potassium 4.0 Chloride 102 Carbon Dioxide 32.0 Anion Gap 5 BUN 28 H Creatinine 0.46 L Estim Creat Clear Calc 51.14 Est GFR (MDRD) Af Amer 224 Est GFR (MDRD) Non-Af 185 BUN/Creatinine Ratio 60.6 H Glucose 149 H Calcium 8.5 Total Bilirubin 0.30 AST 20 ALT 64 H Alkaline Phosphatase 52 Total Protein 5.8 L Albumin 2.8 L Globulin 3.0 Albumin/Globulin Ratio 0.9 Vancomycin Trough POC Glucose 153 H 12/12/19 12/13/19 12/13/19 22:35 05:20 05:20 WBC 6.8 RBC 3.48 L Hgb 9.4 L Hct 30.9 L MCV 88.8 MCH 27.0 MCHC 30.4 L RDW Std Deviation 55.1 H RDW Coeff of Earline 16.9 H Plt Count 168 MPV 9.9 Immature Gran % (Auto) 0.700 Neut % (Auto) 87.5 H Lymph % (Auto) 5.9 L [place] % (Auto) 5.9 Eos % (Auto) 0.0 Baso % (Auto) 0.0 Absolute Neuts (auto) 6.0 Absolute Lymphs (auto) 0.40 L Nucleated RBC % 0 Differential Comment SCANNED Reactive Lymphocytes 1+ Sodium 142 Potassium 3.2 L Chloride 100 Carbon Dioxide 38.0 H Anion Gap 4 L BUN 27 H Creatinine 0.58 L Estim Creat Clear Calc 48.85 Est GFR (MDRD) Af Amer 171 Est GFR (MDRD) Non-Af 142 BUN/Creatinine Ratio 46.4 H Glucose 112 H Calcium 8.6 Total Bilirubin AST ALT Alkaline Phosphatase Total Protein Albumin Globulin Albumin/Globulin Ratio Vancomycin Trough 20.2 H POC Glucose Microbiology 12/10/19 10:54 Sputum, Induced/Lukens Gram Stain - Final 12/10/19 10:54 Sputum, Induced/Lukens Respiratory Culture - Final Culture exhibits no growth. 12/09/19 18:05 Blood Culture (Wb) - Anticubital Left Blood Culture - Preliminary No growth in 48 hours. 12/09/19 16:25 Blood Culture (Wb) - Anticubital Right Blood Culture - Preliminary No growth in 48 hours. Clinical Impression(s) from Imaging Studies Chest X-Ray 12/09/19 17:50 IMPRESSION: Stable significant COPD changes Worsening left lower lobe infiltrate likely pneumonia, atypical viral pneumonia cannot be excluded Placement of endotracheal tube and orogastric tubes as above Stable small loculated right pleural effusion Healing subacute right rib fractures, stable osteopenia stable mild multilevel compression fractures lower to mid thoracic spine and upper lumbar spine. Electronically Signed: Bairon Jimenez, at 18:07 EDT Tel , Service support , Medical Necessity - Tobacco Use Smoking Status: Former smoker Assessment/Plan RECOMMENDATIONS: 1. Continue empiric antimicrobials. Okay to discontinue vancomycin at this time. 2. Transition to scheduled IV Lasix twice daily. 3. Potassium repletion as ordered. 4. Wean from AVAPS to nasal cannula supplemental oxygen. 5. Continue bronchodilators and steroids. 6. Speech therapy reevaluation today, prior to advancing diet. 7. Continue appropriate prophylaxis. IMPRESSIONS: 1. Acute on chronic combined respiratory failure Likely multifactorial in etiology with underlying healthcare associated pneumonia and possible heart failure contributing. The patient has received adequate volume resuscitation. Plan to continue to wean FiO2 and PEEP to maintain oxygen saturations at or above 88%. The patient was able to be successfully extubated on December 11. Plan to continue AVAPS therapy per home regimen throughout the day as needed and nightly. Plan to continue scheduled bronchodilators and steroids. Continue empiric antimicrobial coverage. 2. Septic shock with concern for healthcare associated pneumonia Resolved. Continue current supportive measures as noted above, with broad-spectrum antimicrobial coverage. The patient has been weaned from vasopressor support and remains hemodynamically stable at this time. 3. Acute on chronic heart failure with preserved ejection fraction Continue scheduled Lasix as ordered. 4. Indeterminate cardiac enzymes/paroxysmal atrial flutter Most likely related to demand ischemia in the setting of #1 and 2. Continue current medical management. 5. Hypertension/hyperlipidemia/personal history of lung cancer/tobacco dependency in remission Complicates care, management, recovery and prognosis. Continue to hold home antihypertensives for now. Patient to be reevaluated by speech therapy today. Physical therapy to also work with the patient. This note was generated with [employer] dictation software. It may contain incorrect words, spelling, and punctuation that were not noted in checking the note before signing. Inpatient E&M: [id number] [facility] L3
[2019-12-13] MEDS: Potassium Chloride 10mEq/100mL 10 MEQ/100 ML IV.SOLN. 100 MEQ IV BOLUS ×4 (08:03→12:13)
--- NOTE | 2019-12-13 08:27 | PN_ITS ---
Reason for Visit: Acute on chronic hypoxic and hypercarbic combined respiratory failure. Bilateral pneumonia Objective: Low-grade temperature T-max 100 Fahrenheit last night. In the morning he is afebrile he was on BiPAP at night 40% FiO2. Pulse ox 92% on 5 L of oxygen. Respiratory rate 20 to 25/min. Patient said his Trelegy at home is not working and that is why he was not able to breathe at home Vitals/I&O's: Vital Signs Temp Pulse Resp BP Pulse Ox 99.1 F 102 H 22 H 116/59 L 92 12/13/19 06:00 12/13/19 07:04 12/13/19 07:04 12/13/19 06:00 12/13/19 07:04 Oxygen Flow Rate (L/min) 5 Oxygen Delivery Method Nasal Cannula Weight: 136 lb 0.403 oz Body Mass Index (BMI) 20.0 Intake and Output for Last 24 Hours 12/11/19 12/12/19 12/13/19 23:59 23:59 23:59 Intake Total 1559.15 / 1573.95 1287.61 / 1287.61 436.5 / 436.5 Output Total 2440 / 2440 2925 / 4125 2830 / 2830 Balance -880.85 / -866.05 -1637.39 / -2837.39 -2393.5 / -2393.5 General: Alert, Oriented x3, Cooperative HEENT: Atraumatic, PERRLA, EOMI, Normocephalic Neck: Supple, No JVD, Negative Carotid Bruits Lungs: Diminished - Air entry severely diminished in both lungs., Rhonchi, Tachy pneic - Sometimes tachypneic Cardiovascular: Regular rate, Murmur - Ejection systolic murmur present over aortic region, left lower sternal border, and pansystolic murmur over apex with radiation to axilla suggestive of aortic stenosis and mitral regurgitation. Abdomen: Bowel Sounds Present, Soft, Non Tender, Non-Distended Extremities: No edema, Capillary Refill Less than 3 Seconds Skin: No rashes, No breakdown Musculoskeletal: No Tenderness to Palpation of Joints or Extremities, Arthritic Changes, Muscle Wasting Neurological: Cranial nerves II-XII grossly intact, Deep Tendon Reflexes 2+/4 and Symmetrical, Neuro grossly intact Psych/Mental Status: Normal Affect, Appropriate Microbiology Past 72 Hours 12/10/19 10:54 Sputum, Induced/Lukens Gram Stain - Final 12/10/19 10:54 Sputum, Induced/Lukens Respiratory Culture - Final Culture exhibits no growth. 12/09/19 18:05 Blood Culture (Wb) - Anticubital Left Blood Culture - Preliminary No growth in 48 hours. 12/09/19 16:25 Blood Culture (Wb) - Anticubital Right Blood Culture - Preliminary No growth in 48 hours. 12/10/19 16:40 Urine Catheter - Catheter Streptococcus pneumoniae Antigen (M - Final 12/10/19 16:40 Urine Catheter - Catheter Legionella Antigen - Final 12/10/19 10:50 Mucosa - Nose Respiratory Panel (PCR) - Final 12/09/19 18:57 Mucosa - Nasopharyngeal Coronavirus COVID-19 PCR - Final Laboratory Results 12/12/19 22:35: Vancomycin Trough 20.2 H 12/13/19 05:20: WBC 6.8, RBC 3.48 L, Hgb 9.4 L, Hct 30.9 L, MCV 88.8, MCH 27.0, MCHC 30.4 L, RDW Std Deviation 55.1 H, RDW Coeff of Earline 16.9 H, Plt Count 168, MPV 9.9, Immature Gran % (Auto) 0.700, Neut % (Auto) 87.5 H, Lymph % (Auto) 5.9 L, [place] % (Auto) 5.9, Eos % (Auto) 0.0, Baso % (Auto) 0.0, Absolute Neuts (auto) 6.0, Absolute Lymphs (auto) 0.40 L, Nucleated RBC % 0, Differential Comment SCANNED, Reactive Lymphocytes 1+ 12/13/19 05:20: Sodium 142, Potassium 3.2 L, Chloride 100, Carbon Dioxide 38.0 H , Anion Gap 4 L, BUN 27 H, Creatinine 0.58 L, Estim Creat Clear Calc 48.85, Est GFR (MDRD) Af Amer 171, Est GFR (MDRD) Non-Af 142, BUN/Creatinine Ratio 46.4 H, Glucose 112 H, Calcium 8.6 Current Medications Acetaminophen (Tylenol) 650 mg RECTAL Q6H PRN PRN PRN Reason: TEMP > 100.5 F Albuterol/Ipratropium (Duoneb) 3 ml INHALATION Q4H.RT [facility] Last Admin: 12/13/19 07:04 Dose: 3 ml Documented by: Enoxaparin Sodium (Lovenox) 40 mg SC DAILY [facility] Last Admin: 12/12/19 10:12 Dose: 40 mg Documented by: Furosemide (Lasix) 40 mg IV BID@1000,1800 [facility] Famotidine 20 mg/ Sodium (Chloride) 10 mls @ 300 mls/hr IV Q12 [facility] Last Infusion: 12/12/19 22:40 Dose: Infused Documented by: Sodium Chloride () 250 mls @ 15 mls/hr IV .[id number] PRN PRN Reason: Saline Flush Sodium Chloride () 250 mls @ 15 mls/hr IV .[id number] PRN PRN Reason: Additional IVPB Infusion Last Infusion: 12/13/19 04:00 Dose: 0 mls/hr Documented by: Meropenem 1 gm/ Sodium (Chloride) 120 mls @ 33 mls/hr IV Q8 [facility] Last Admin: 12/13/19 05:14 Dose: 33 mls/hr Documented by: Potassium Chloride () 10 meq in 100 mls @ 100 mls/hr IV BOLUS Q1H [facility] Stop: 12/13/19 10:59 Last Admin: 12/13/19 08:03 Dose: 100 mls/hr Documented by: Losartan Potassium (Cozaar) 25 mg PO DAILY [facility] Last Admin: 12/12/19 14:41 Dose: Not Given Documented by: Methylprednisolone (Solu-Medrol) 40 mg IV Q6 [facility] Last Admin: 12/13/19 05:14 Dose: 40 mg Documented by: Ondansetron HCl (Zofran) 4 mg IV Q8H PRN PRN PRN Reason: NAUSEA/VOMITING Sodium Chloride () 10 - 40 ml IV UD PRN PRN Reason: SALINE FLUSH Last Admin: 12/12/19 21:22 Dose: 40 ml Documented by: STROKE Vital Signs/Narrative: Vital Signs Temp Pulse Resp BP Pulse Ox 12/13/19 07:04 102 H 22 H 92 12/13/19 07:00 100 12/13/19 06:00 99.1 F 91 25 H 116/59 L 94 12/13/19 05:00 99.0 F 85 21 H 114/66 96 12/13/19 04:55 95 19 H 97 Medical Necessity - Tobacco Use Smoking Status: Former smoker Assessment/Plan This is an 84 years old male patient with history of high-grade AV block status post pacemaker, aortic valve stenosis, pulmonary hypertension, COPD, non-small c ell lung cancer in right lower lobe status post radiotherapy in 2016, dysphagia came to ER for shortness of breath, dyspneic and tachypneic, started on BiPAP without improvement, was intubated and started mechanical ventilation and he was found to have acute on chronic respiratory failure attributed to acute COPD exacerbation and suspected healthcare associated pneumonia with with septic shock and elevated troponin #1 acute on chronic respiratory failure, multifactorial, healthcare acid pneumonia, possible heart failure exacerbation: Patient is intubated and is on fentanyl drip. Vent management as per mortgage consultant. ABG on 12/09/2019 showed 7.18/88/328 on 100% FiO2/450/7. Vent setting adjusted after that and currently on 45% FiO2/PEEP 5. Lasix was resumed after patient was hemodynamically euvolemic. 12/11: Patient extubated and AVAPS. Poor lung function with severely diminished air entry 12/12: Patient on AVAPS at night. Continue steroids and scheduled bronchodilator 2. Septic shock (hypotension required vasopressor support) Secondary to left lower lobe healthcare care associated pneumonia: Lactic acid 2.3. Chest x-ray shows left lower lobe infiltrate. The patient had IV Levaquin and aztreonam and vancomycin in ED. Currently on IV vancomycin and meropenem. On bronchodilator. Sepsis work-up so far shows COVID-19 PCR negative. Blood culture and sputum culture are pending. Respiratory panel pending. Last respiratory panel on 10/22/2019 was negative. Levophed drip is turned off. 12/12: Infectious work-up including urinary antigens and respiratory panel was negative. Empirically on IV meropenem. Vancomycin discontinued. #3 elevated troponin without EKG changes: Most probably secondary to demand ischemia. Telemetry shows paced rhythm. Patient has history of high-grade AV block status post pacemaker and aortic valve stenosis. Serial troponins done and elevated 0.32. 2D echocardiogram on September, revealed ejection fraction 55%, stage I diastolic function and moderate pulmonary hypertension. Oral home medications currently on hold as patient failed swallow screen; needs further details evaluation by speech therapist #4 severe COPD/chronic combined respiratory failure: On home oxygen and Trelegy last PFT in 2017 showed FEV1 44%. #5 Acute on chronic diastolic CHF: As per H&P initially was compensated but exacerbated secondary to fluid given for septic shock. BNP elevated, at 296. Lasix is resumed. 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 EKG reviewed, revealed paced rhythm, heart rate has been stable. He is not on anticoagulation. #7 hypertension: Blood pressure stable at this time #8 GERD: Start Pepcid twice daily IV. #9 Non-small cell lung cancer in right lower lobe status post radiotherapy: Last CT chest from June 2018 revealed no evidence of recurrence. Follows design assistant Dr. Li in [facility] and also Dr. Mccartney. Patient also has dysphagia probably secondary to radiotherapy. Patient had required esophageal dilatation. CODE STATUS: Full code #10 DVT prophylaxis: Subcu Lovenox. Microbiology Past 72 Hours 12/10/19 10:54 Sputum, Induced/Lukens Gram Stain - Final 12/10/19 10:54 Sputum, Induced/Lukens Respiratory Culture - Final Culture exhibits no growth. 12/09/19 18:05 Blood Culture (Wb) - Anticubital Left Blood Culture - Preliminary No growth in 48 hours. 12/09/19 16:25 Blood Culture (Wb) - Anticubital Right Blood Culture - Preliminary No growth in 48 hours. 12/10/19 16:40 Urine Catheter - Catheter Streptococcus pneumoniae Antigen (M - Final 12/10/19 16:40 Urine Catheter - Catheter Legionella Antigen - Final 12/10/19 10:50 Mucosa - Nose Respiratory Panel (PCR) - Final 12/09/19 18:57 Mucosa - Nasopharyngeal Coronavirus COVID-19 PCR - Final Laboratory Results 12/12/19 22:35: Vancomycin Trough 20.2 H 12/13/19 05:20: WBC 6.8, RBC 3.48 L, Hgb 9.4 L, Hct 30.9 L, MCV 88.8, MCH 27.0, MCHC 30.4 L, RDW Std Deviation 55.1 H, RDW Coeff of Earline 16.9 H, Plt Count 168, MPV 9.9, Immature Gran % (Auto) 0.700, Neut % (Auto) 87.5 H, Lymph % (Auto) 5.9 L, [place] % (Auto) 5.9, Eos % (Auto) 0.0, Baso % (Auto) 0.0, Absolute Neuts (auto) 6.0, Absolute Lymphs (auto) 0.40 L, Nucleated RBC % 0, Differential Comment SCANNED, Reactive Lymphocytes 1+ 12/13/19 05:20: Sodium 142, Potassium 3.2 L, Chloride 100, Carbon Dioxide 38.0 H , Anion Gap 4 L, BUN 27 H, Creatinine 0.58 L, Estim Creat Clear Calc 48.85, Est GFR (MDRD) Af Amer 171, Est GFR (MDRD) Non-Af 142, BUN/Creatinine Ratio 46.4 H, Glucose 112 H, Calcium 8.6 Inpatient E&M: 02256 Subs Hosp L3
[2019-12-13] MEDS: Enoxaparin 40 MG/0.4 ML Syringe SC (10:37)
[2019-12-13] MEDS: Famotidine 200 MG/20 ML MDV 20 MG in 0.9% Normal Saline (Pres. free 8 ML 300 MG IV ×2 (10:37→21:17)
[2019-12-13] MEDS: Losartan Potassium 25 MG Tablet PO (10:38)
[2019-12-13] MEDS: 0.9% Saline Lock 10 ML Syringe IV ×3 (12:20→23:53)
[2019-12-13] MEDS: ALPRAZolam 0.25 MG Tablet 0.125 MG PO ×2 (12:20→21:17)
[2019-12-13] MEDS: Acetaminophen 325 MG Tablet 650 MG PO (19:35)
[2019-12-13] MEDS: PARoxetine 10 MG Tablet PO (21:19)
--- NOTE | 2019-12-13 23:36 | NURSING ---
notified respiratory of O2 sats 83-85% on 5L inline of home trilogy. O2 was increased to 8L inline of home trilogy at this time.
[2019-12-14] VITALS (30 sets, daily range): BP systolic 106–158; BP diastolic 57–84; PULSE 69–112; RESP 18–28; TEMP 36.7–37.3; O2SAT 86–100
[2019-12-14] MEDS: Acetaminophen 325 MG Tablet 650 MG PO ×3 (05:32→19:42)
[2019-12-14] MEDS: Ipratropium/Albuterol Sulfate 3 ML AMPUL.NEB INHALATION ×5 (05:34→22:36)
--- NOTE | 2019-12-14 05:37 | CPS ---
pt wore own machine till 0440, then back to 5L nasal o2. During his sleep o2 had to be increased to 8L bleed in to keep sats greater than 90. Will inform this am, pts trilogy/bipap settings may need increased to keep him at his 5L bleed in at home.
--- NOTE | 2019-12-14 06:09 | PCM.PN.INT ---
Subjective: The patient was seen and examined at the bedside this morning. Events from the last 24 hours have been reviewed. The patient is currently afebrile, hemodynamically stable and maintaining appropriate oxygen saturations on 5 L/min via nasal cannula. The patient tolerated AVAPS with home settings overnight. Per respiratory therapy, despite the patient's baseline 5 L bleed in, he did still experience oxygen desaturation with sleeping. The patient diuresed quite well yesterday. He gets quite anxious when his oxygen is weaned down from 5 L/min, despite the fact that, as of this morning, he was saturating 100% on the aforementioned flow rate. The patient was reevaluated by speech therapy yesterday who still had concerns over the patient's swallowing and recommended continued n.p.o. status except for meds crushed in pudding or applesauce. There are tentative plans for reevaluation today and possible modified barium swallow tomorrow. Objective: The patient's most recent lab work, culture data and imaging studies have all been personally reviewed. Surface echocardiogram from September 2019 revealed normal LV size and function with an ejection fraction of 55% and stage I diastolic dysfunction. Pulmonary artery systolic pressure was estimated to be 50 mmHg. Moderate aortic stenosis was also noted. COVID PCR was negative. Respiratory viral panel was negative. Strep and urine Legionella antigens were negative. Blood and sputum cultures have been unrevealing to date. General: Alert, Cooperative, No apparent distress, - - Sitting upright in bed. Currently saturating 100% on 5 L/min. HEENT: Atraumatic, PERRLA, Normocephalic Oral: No Gingival or Mucosal Lesions/ Ulcerations Neck: Supple, No Nodes, Trachea Midline Lungs: No rhonchi, No wheeze, No rales, Diminished Cardiovascular: Regular rate, Normal S1, Normal S2, Murmur Abdomen: Bowel Sounds Present, Soft, Non Tender Extremities: No clubbing, No cyanosis, No edema Skin: No breakdown Musculoskeletal: No Tenderness to Palpation of Joints or Extremities Lymphatic: No Cervical, Supraclavicular, or Inguinal Adenopathy Neurological: Cranial nerves II-XII grossly intact, Neuro grossly intact Psych/Mental Status: Anxious Vital Signs Temp Pulse Resp BP Pulse Ox 98.6 F 94 25 H 125/63 H 94 12/14/19 05:00 12/14/19 06:00 12/14/19 06:00 12/14/19 06:00 12/14/19 06:00 Oxygen Flow Rate (L/min) 5 Oxygen Delivery Method Nasal Cannula Weight: 127 lb 13.89 oz Body Mass Index (BMI) 20.0 Intake and Output for Last 24 Hours 12/12/19 12/13/19 12/14/19 23:59 23:59 23:59 Intake Total 1287.61 / 1287.61 1096.5 / 1096.5 120 / 120 Output Total 2925 / 4125 5330 / 5330 250 / 250 Balance -1637.39 / -2837.39 -4233.5 / -4233.5 -130 / -130 Labs (Last 48 Hours) 12/12/19 12/12/19 12/13/19 05:10 22:35 05:20 WBC 6.8 RBC 3.48 L Hgb 9.4 L Hct 30.9 L MCV 88.8 MCH 27.0 MCHC 30.4 L RDW Std Deviation 55.1 H RDW Coeff of Earline 16.9 H Plt Count 168 MPV 9.9 Immature Gran % (Auto) 0.700 Neut % (Auto) 87.5 H Lymph % (Auto) 5.9 L [place] % (Auto) 5.9 Eos % (Auto) 0.0 Baso % (Auto) 0.0 Absolute Neuts (auto) 6.0 Absolute Lymphs (auto) 0.40 L Nucleated RBC % 0 Differential Comment SCANNED Reactive Lymphocytes 1+ Sodium Potassium Chloride Carbon Dioxide Anion Gap BUN Creatinine Estim Creat Clear Calc Est GFR (MDRD) Af Amer Est GFR (MDRD) Non-Af BUN/Creatinine Ratio Glucose Calcium Vancomycin Trough 20.2 H POC Glucose 153 H 12/13/19 05:20 WBC RBC Hgb Hct MCV MCH MCHC RDW Std Deviation RDW Coeff of Earline Plt Count MPV Immature Gran % (Auto) Neut % (Auto) Lymph % (Auto) [place] % (Auto) Eos % (Auto) Baso % (Auto) Absolute Neuts (auto) Absolute Lymphs (auto) Nucleated RBC % Differential Comment Reactive Lymphocytes Sodium 142 Potassium 3.2 L Chloride 100 Carbon Dioxide 38.0 H Anion Gap 4 L BUN 27 H Creatinine 0.58 L Estim Creat Clear Calc 48.85 Est GFR (MDRD) Af Amer 171 Est GFR (MDRD) Non-Af 142 BUN/Creatinine Ratio 46.4 H Glucose 112 H Calcium 8.6 Vancomycin Trough POC Glucose Microbiology 12/10/19 10:54 Sputum, Induced/Lukens Gram Stain - Final 12/10/19 10:54 Sputum, Induced/Lukens Respiratory Culture - Final Culture exhibits no growth. 12/09/19 18:05 Blood Culture (Wb) - Anticubital Left Blood Culture - Preliminary No growth in 48 hours. 12/09/19 16:25 Blood Culture (Wb) - Anticubital Right Blood Culture - Preliminary No growth in 48 hours. Clinical Impression(s) from Imaging Studies Chest X-Ray 12/09/19 17:50 IMPRESSION: Stable significant COPD changes Worsening left lower lobe infiltrate likely pneumonia, atypical viral pneumonia cannot be excluded Placement of endotracheal tube and orogastric tubes as above Stable small loculated right pleural effusion Healing subacute right rib fractures, stable osteopenia stable mild multilevel compression fractures lower to mid thoracic spine and upper lumbar spine. Electronically Signed: Bairon Tony, at 18:07 EDT Tel , Service support , Medical Necessity - Tobacco Use Smoking Status: Former smoker Assessment/Plan RECOMMENDATIONS: 1. Continue empiric antimicrobials with plans to complete a 7-day treatment course. 2. Transition from IV to p.o. Lasix regimen. 3. Transition from Solu-Medrol to prednisone 40 mg daily, with plans for a taper at discharge. 4. Additional potassium repletion. 5. Wean oxygen as tolerated. 6. Continue bronchodilators. 7. Dietary advancement per speech therapy recommendations. Possible modified barium swallow tomorrow. 8. Continue AVAPS nightly per home regimen. 9. The patient is medically stable for transfer out of the intensive care unit. IMPRESSIONS: 1. Acute on chronic combined respiratory failure Likely multifactorial in etiology with underlying healthcare associated pneumonia and heart failure contributing. The patient has received adequate volume resuscitation. Plan to continue to wean supplemental oxygen saturations at or above 88%. The patient was able to be successfully extubated on December 11. Plan to continue AVAPS therapy per home regimen throughout the day as needed and nightly. Plan to continue scheduled bronchodilators and steroids. Continue empiric antimicrobial coverage. 2. Septic shock with concern for healthcare associated pneumonia Resolved. Continue current supportive measures as noted above, with broad-spectrum antimicrobial coverage. The patient has been weaned from vasopressor support and remains hemodynamically stable at this time. 3. Acute on chronic heart failure with preserved ejection fraction Continue scheduled Lasix as ordered, with additional potassium repletion as required. 4. Indeterminate cardiac enzymes/paroxysmal atrial flutter Most likely related to demand ischemia in the setting of #1 and 2. Continue current medical management. 5. Hypertension/hyperlipidemia/personal history of lung cancer/tobacco dependency in remission Complicates care, management, recovery and prognosis. Dietary advancement per speech therapy recommendations. This note was generated with [employer] dictation software. It may contain incorrect words, spelling, and punctuation that were not noted in checking the note before signing. Inpatient E&M: 57647 [facility] Hosp L3
[2019-12-14 06:38] LABS: Anion Gap 3 (5-15); BUN 32 mg/dL (7-18); BUN/Creat Ratio 54.3 RATIO (10-20); Calcium,Total 8.9 mg/dL (8.5-10.1); Chloride 98 mmol/L (98-107); Creatinine, Serum 0.59 mg/dL (0.70-1.30); EST Glomerular Filtration Rate 140 mL/min (>60); Est Glom Filt Rate - Afr Amer 169 mL/min (>60); Estimated Creatinine Clearance 45.92 ml/min; Glucose 130 mg/dL (74-106); Magnesium 2.3 mg/dL (1.6-2.6); Potassium 3.4 mmol/L (3.5-5.1); Sodium Level 143 mmol/L (136-145)
--- NOTE | 2019-12-14 09:17 | PCM.PN.HOSP ---
Reason for Visit: Acute on chronic combined respiratory failure. Bilateral pneumonia Objective: No high-grade fever in the last 2 days. T-max 99.8 yesterday afternoon. No acute issues overnight. Patient failed initial swallow evaluation and therefore n.p.o. except medications crushed in applesauce. Patient also has constipation due to poor bowel since admission but passing flatus. Denies abdominal discomfort. No chest discomfort or tightness. Shortness of breath is improved. On exam General: Alert, Oriented x3, Cooperative HEENT: Atraumatic, PERRLA, EOMI, Normocephalic Neck: Supple, No JVD, Negative Carotid Bruits Lungs: Air entry severely diminished in both lungs., Rhonchi, Tachypneic -respiratory rate 23 to 28/min Cardiovascular: Regular rate, Murmur - Ejection systolic murmur present over aortic region, left lower sternal border, and pansystolic murmur over apex with radiation to axilla suggestive of aortic stenosis and mitral regurgitation. Abdomen: Bowel Sounds Present, Soft, Non Tender, Non-Distended Extremities: No edema, Capillary Refill Less than 3 Seconds Skin: No rashes, No breakdown Musculoskeletal: No Tenderness to Palpation of Joints or Extremities, Arthritic Changes, Muscle Wasting Neurological: Cranial nerves II-XII grossly intact, Deep Tendon Reflexes 2+/4 and Symmetrical, Neuro grossly intact Psych/Mental Status: Normal Affect, Appropriate Vitals/I&O's: Vital Signs Temp Pulse Resp BP Pulse Ox 98.6 F 90 28 H 137/59 H 90 12/14/19 05:00 12/14/19 07:00 12/14/19 07:00 12/14/19 07:00 12/14/19 07:00 Oxygen Flow Rate (L/min) 4 Oxygen Delivery Method Nasal Cannula Weight: 127 lb 13.89 oz Body Mass Index (BMI) 20.0 Intake and Output for Last 24 Hours 12/12/19 12/13/19 12/14/19 23:59 23:59 23:59 Intake Total 1287.61 / 1287.61 1096.5 / 1096.5 120 / 120 Output Total 2925 / 4125 5330 / 5330 250 / 250 Balance -1637.39 / -2837.39 -4233.5 / -4233.5 -130 / -130 Microbiology Past 72 Hours 12/10/19 10:54 Sputum, Induced/Lukens Gram Stain - Final 12/10/19 10:54 Sputum, Induced/Lukens Respiratory Culture - Final Culture exhibits no growth. 12/09/19 18:05 Blood Culture (Wb) - Anticubital Left Blood Culture - Preliminary No growth in 48 hours. 12/09/19 16:25 Blood Culture (Wb) - Anticubital Right Blood Culture - Preliminary No growth in 48 hours. Laboratory Results 12/14/19 06:15: Sodium 143, Potassium 3.4 L, Chloride 98, Carbon Dioxide 42.0 H, Anion Gap 3 L, BUN 32 H, Creatinine 0.59 L, Estim Creat Clear Calc 45.92, Est GFR (MDRD) Af Amer 169, Est GFR (MDRD) Non-Af 140, BUN/Creatinine Ratio 54.3 H, Glucose 130 H, Calcium 8.9, Magnesium 2.3 Current Medications Acetaminophen (Tylenol) 650 mg PO Q6H PRN PRN PRN Reason: Pain Score 1-1010 Last Admin: 12/14/19 05:32 Dose: 650 mg Documented by: Albuterol/Ipratropium (Duoneb) 3 ml INHALATION Q4H.RT [facility] Last Admin: 12/14/19 05:34 Dose: 3 ml Documented by: Alprazolam (Xanax) 0.125 mg PO TID PRN PRN PRN Reason: ANXIETY Last Admin: 12/13/19 21:17 Dose: 0.125 mg Documented by: Enoxaparin Sodium (Lovenox) 40 mg SC DAILY [facility] Last Admin: 12/13/19 10:37 Dose: 40 mg Documented by: Furosemide (Lasix) 40 mg PO BID@1000,1800 [facility] Famotidine 20 mg/ Sodium (Chloride) 10 mls @ 300 mls/hr IV Q12 [facility] Last Infusion: 12/13/19 21:24 Dose: Infused Documented by: Sodium Chloride () 250 mls @ 15 mls/hr IV .[id number] PRN PRN Reason: Saline Flush Sodium Chloride () 250 mls @ 15 mls/hr IV .[id number] PRN PRN Reason: Additional IVPB Infusion Last Infusion: 12/14/19 00:58 Dose: 15 mls/hr Documented by: Meropenem 1 gm/ Sodium (Chloride) 120 mls @ 33 mls/hr IV Q8 [facility] Last Admin: 12/14/19 05:27 Dose: 33 mls/hr Documented by: Potassium Chloride () 10 meq in 100 mls @ 100 mls/hr IV BOLUS Q1H [facility] Stop: 12/14/19 11:14 Losartan Potassium (Cozaar) 25 mg PO DAILY [facility] Last Admin: 12/13/19 10:38 Dose: 25 mg Documented by: Ondansetron HCl (Zofran) 4 mg IV Q8H PRN PRN PRN Reason: NAUSEA/VOMITING Paroxetine HCl (Paxil) 10 mg PO QHS [facility] Last Admin: 12/13/19 21:19 Dose: 10 mg Documented by: Prednisone () 40 mg PO DAILY@0800 [facility] Sodium Chloride () 10 - 40 ml IV UD PRN PRN Reason: SALINE FLUSH Last Admin: 12/13/19 23:53 Dose: 20 ml Documented by: STROKE Vital Signs/Narrative: Vital Signs Pulse Resp BP Pulse Ox 12/14/19 07:00 90 28 H 137/59 H 90 12/14/19 06:00 94 25 H 125/63 H 94 12/14/19 05:45 100 12/14/19 05:40 76 24 H Medical Necessity - Tobacco Use Smoking Status: Former smoker Assessment/Plan This is an 84 years old male patient with history of high-grade AV block status post pacemaker, aortic valve stenosis, pulmonary hypertension, COPD, non-small cell lung cancer in right lower lobe status post radiotherapy in 2015, dysphagia came to ER for shortness of breath, dyspneic and tachypneic, started on BiPAP without improvement, was intubated and started mechanical ventilation and he was found to have acute on chronic respiratory failure attributed to acute COPD exacerbation and suspected healthcare associated pneumonia with with septic shock and elevated troponin #1 acute on chronic respiratory failure, multifactorial, healthcare acid pneumonia, possible heart failure exacerbation: Patient is intubated and is on fentanyl drip. Vent management as per clinical psychology teacher. ABG on 12/09/2019 showed 7.18/88/328 on 100% FiO2/450/7. Vent setting adjusted after that and currently on 45% FiO2/PEEP 5. Lasix was resumed after patient was hemodynamically euvolemic. 12/11: Patient extubated and AVAPS. Poor lung function with severely diminished air entry 12/12: Patient on AVAPS at night. Continue steroids and scheduled bronchodilator 12/13: Respiratory status is improving and is stable. Transfer out of PCU and downgrade to PCU. Patient has anxiety on BiPAP and is doing well on Xanax and paroxetine. 2. Septic shock (hypotension required vasopressor support) Secondary to left lower lobe healthcare care associated pneumonia: Lactic acid 2.3. Chest x-ray shows left lower lobe infiltrate. The patient had IV Levaquin and aztreonam and vancomycin in ED. Currently on IV vancomycin and meropenem. On bronchodilator. Sepsis work-up so far shows COVID-19 PCR negative. Last respiratory panel on 10/22/2019 was negative. Levophed drip is turned off. 12/13: Continue antibiotics to complete a total of 7 days. Infectious work-up including urinary antigens and respiratory panel was negative. Empirically on IV meropenem. Vancomycin discontinued. Sputum culture exhibits no growth. Blood cultures no growth for more than 48 hours. #3 elevated troponin without EKG changes: Most probably secondary to demand ischemia. Telemetry shows paced rhythm. Patient has history of high-grade AV block status post pacemaker and aortic valve stenosis. Serial troponins done and elevated 0.32. 2D echocardiogram on September, revealed ejection fraction 55%, stage I diastolic function and moderate pulmonary hypertension. Patient failed initial swallow screen and is being evaluated by speech therapist. Some oral medications are allowed, crushed in applesauce as per speech therapist recommendation #4 severe COPD/chronic combined respiratory failure: On home oxygen and Trelegy last PFT in 2016 showed FEV1 44%. #5 Acute on chronic diastolic CHF: As per H&P initially was compensated but exacerbated secondary to fluid given for septic shock. BNP elevated, at 296. Lasix is resumed. On losartan 25 mg daily, resumed Hypokalemia: Potassium is getting replaced. 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 EKG reviewed, revealed paced rhythm, heart rate has been stable. He is not on anticoagulation. #7 hypertension: Blood pressure stable at this time #8 GERD: Start Pepcid twice daily IV. #9 Non-small cell lung cancer in right lower lobe status post radiotherapy: Last CT chest from June 2018 revealed no evidence of recurrence. Follows pelletizer Dr. Li in [facility] and also Dr. Mccartney. Patient also has dysphagia probably secondary to radiotherapy. Patient had required esophageal dilatation. CODE STATUS: Full code #10 DVT prophylaxis: Subcu Lovenox. Total time of the visit including total time spent in counseling or coordination of care, (more than 50% of the total time, spent in obtaining medical information from nurses and other ancillary care providers), discussion with consultants, review of labs and imaging is 30 minutes Microbiology Past 72 Hours 12/10/19 10:54 Sputum, Induced/Lukens Gram Stain - Final 12/10/19 10:54 Sputum, Induced/Lukens Respiratory Culture - Final Culture exhibits no growth. 12/09/19 18:05 Blood Culture (Wb) - Anticubital Left Blood Culture - Preliminary No growth in 48 hours. 12/09/19 16:25 Blood Culture (Wb) - Anticubital Right Blood Culture - Preliminary No growth in 48 hours. Laboratory Results 12/14/19 06:15: Sodium 143, Potassium 3.4 L, Chloride 98, Carbon Dioxide 42.0 H, Anion Gap 3 L, BUN 32 H, Creatinine 0.59 L, Estim Creat Clear Calc 45.92, Est GFR (MDRD) Af Amer 169, Est GFR (MDRD) Non-Af 140, BUN/Creatinine Ratio 54.3 H, Glucose 130 H, Calcium 8.9, Magnesium 2.3 Inpatient E&M: 34887 Subs Hosp L3
[2019-12-14] MEDS: Enoxaparin 40 MG/0.4 ML Syringe SC (10:40)
[2019-12-14] MEDS: Potassium Chloride 10mEq/100mL 10 MEQ/100 ML IV.SOLN. 100 MEQ IV BOLUS ×4 (10:40→14:29)
[2019-12-14] MEDS: 0.9% Saline Lock 10 ML Syringe IV (10:40)
[2019-12-14] MEDS: Furosemide 40 MG Tablet PO ×2 (10:41→17:43)
[2019-12-14] MEDS: predniSONE 20 MG Tablet 40 MG PO (10:41)
[2019-12-14] MEDS: Senna Tablet 2 TABLET PO ×2 (10:41→21:28)
[2019-12-14] MEDS: Losartan Potassium 25 MG Tablet PO (10:41)
[2019-12-14] MEDS: ALPRAZolam 0.25 MG Tablet 0.125 MG PO (10:41)
[2019-12-14] MEDS: Famotidine 200 MG/20 ML MDV 20 MG in 0.9% Normal Saline (Pres. free 8 ML 300 MG IV ×2 (10:42→21:23)
[2019-12-14] MEDS: Bisacodyl 10 MG Suppository RECTAL (13:51)
--- NOTE | 2019-12-14 14:06 | NURSING ---
Pt transferred to [facility] w/[facility]. Report given to FLORINDA Garrett prior to transfer.
[2019-12-14] MEDS: PARoxetine 10 MG Tablet PO (21:30)
[2019-12-15] VITALS (15 sets, daily range): BP systolic 110–130; BP diastolic 63–73; PULSE 68–128; RESP 16–22; TEMP 36.7–37.2; O2SAT 92–100
[2019-12-15 05:25] LABS: Absolute Lymphocyte Count 1.44 X10^3/uL (0.83-4.51); Absolute Neutrophil Count 8.3 X10^3/uL (2.0-7.7); Eosinophil# 0.04 X10^3/uL; Eosinophils% 0.4 % (0-5); Hematocrit 39.2 % (40-54); Hemoglobin 11.5 g/dL (13.0-16.5); Lymphocyte # 1.44 X10^3/ul (4.0); Lymphocyte % 13.3 % (19-41); Mean Corp Hgb Conc 29.3 g/dL (32-36); Mean Corpuscular Hgb 26.6 pg (27.0-32.0); Mean Corpuscular Volume 90.5 fL (80-94); Mean Platelet Vol. 9.9 fl (6.2-12.0); Monocyte% 9.3 % (0-10); NRBC Flagged by Analyzer 0 % (0-5); Neutrophil # 8.28 X10^3/uL (2.7-7.7); Neutrophil % 76.7 % (47-70); Platelet Count 176 K/mm3 (150-450); RBC Distribution Width CV 16.4 % (11.6-14.6); RBC Distribution Width SD 54.6 fl (35.1-43.9); Red Blood Count 4.33 M/mm3 (4.6-6.2); White Blood Count 10.8 K/mm3 (4.4-11.0)
[2019-12-15 05:36] LABS: Anion Gap 3 (5-15); BUN 30 mg/dL (7-18); BUN/Creat Ratio 45.5 RATIO (10-20); Calcium,Total 9.3 mg/dL (8.5-10.1); Chloride 98 mmol/L (98-107); Creatinine, Serum 0.66 mg/dL (0.70-1.30); EST Glomerular Filtration Rate 123 mL/min (>60); Est Glom Filt Rate - Afr Amer 148 mL/min (>60); Estimated Creatinine Clearance 42.59 ml/min; Glucose 82 mg/dL (74-106); Potassium 3.5 mmol/L (3.5-5.1); Sodium Level 144 mmol/L (136-145)
[2019-12-15] MEDS: Ipratropium/Albuterol Sulfate 3 ML AMPUL.NEB INHALATION ×5 (06:56→22:50)
--- NOTE | 2019-12-15 07:44 | PCM.PN.HOSP ---
Vitals/I&O's: Vital Signs Temp Pulse Resp BP Pulse Ox 98.0 F 81 16 126/70 H 100 12/15/19 03:30 12/15/19 06:56 12/15/19 06:56 12/15/19 03:30 12/15/19 06:56 Oxygen Flow Rate (L/min) 5 Oxygen Delivery Method Nasal Cannula Weight: 53.8 kg Body Mass Index (BMI) 20.0 Intake and Output for Last 24 Hours 12/13/19 12/14/19 12/15/19 23:59 23:59 23:59 Intake Total 1096.5 / 1096.5 1299.75 / 1299.75 48.50 / 48.50 Output Total 5330 / 5330 1999 175 / 175 Balance -4233.5 / -4233.5 -700.25 / -700.25 -126.50 / -126.50 Microbiology Past 72 Hours 12/09/19 16:25 Blood Culture (Wb) - Anticubital Right Blood Culture - Final No growth in 5 days. 12/09/19 18:05 Blood Culture (Wb) - Anticubital Left Blood Culture - Final No growth in 5 days. 12/10/19 10:54 Sputum, Induced/Lukens Gram Stain - Final 12/10/19 10:54 Sputum, Induced/Lukens Respiratory Culture - Final Culture exhibits no growth. Laboratory Results 12/15/19 05:16: WBC 10.8, RBC 4.33 L, Hgb 11.5 L, Hct 39.2 L, MCV 90.5, MCH 26.6 L, MCHC 29.3 L, RDW Std Deviation 54.6 H, RDW Coeff of Earline 16.4 H, Plt Count 176, MPV 9.9, Immature Gran % (Auto) 0.300, Neut % (Auto) 76.7 H, Lymph % (Auto) 13.3 L, [place] % (Auto) 9.3, Eos % (Auto) 0.4, Baso % (Auto) 0.0, Absolute Neuts (auto) 8.3 H, Absolute Lymphs (auto) 1.44, Nucleated RBC % 0 12/15/19 05:16: Sodium 144, Potassium 3.5, Chloride 98, Carbon Dioxide 43.0 H, Anion Gap 3 L, BUN 30 H, Creatinine 0.66 L, Estim Creat Clear Calc 42.59, Est GFR (MDRD) Af Amer 148, Est GFR (MDRD) Non-Af 123, BUN/Creatinine Ratio 45.5 H, Glucose 82, Calcium 9.3 Current Medications Acetaminophen (Tylenol) 650 mg PO Q6H PRN PRN PRN Reason: Pain Score 1-05/15 Last Admin: 12/14/19 19:42 Dose: 650 mg Documented by: Albuterol/Ipratropium (Duoneb) 3 ml INHALATION Q4H.RT [facility] Last Admin: 12/15/19 06:56 Dose: 3 ml Documented by: Alprazolam (Xanax) 0.125 mg PO TID PRN PRN PRN Reason: ANXIETY Last Admin: 12/14/19 10:41 Dose: 0.125 mg Documented by: Bisacodyl (Dulcolax) 10 mg RECTAL DAILY PRN PRN PRN Reason: Constipation Enoxaparin Sodium (Lovenox) 40 mg SC DAILY [facility] Last Admin: 12/14/19 10:40 Dose: 40 mg Documented by: Furosemide (Lasix) 40 mg PO BID@1000,1800 [facility] Last Admin: 12/14/19 17:43 Dose: 40 mg Documented by: Famotidine 20 mg/ Sodium (Chloride) 10 mls @ 300 mls/hr IV Q12 [facility] Last Infusion: 12/14/19 21:25 Dose: Infused Documented by: Sodium Chloride () 250 mls @ 15 mls/hr IV .[id number] PRN PRN Reason: Saline Flush Sodium Chloride () 250 mls @ 15 mls/hr IV .[id number] PRN PRN Reason: Additional IVPB Infusion Last Infusion: 12/15/19 01:59 Dose: Infused Documented by: Meropenem 1 gm/ Sodium (Chloride) 120 mls @ 33 mls/hr IV Q8 [facility] Last Admin: 12/15/19 06:04 Dose: 33 mls/hr Documented by: Losartan Potassium (Cozaar) 25 mg PO DAILY [facility] Last Admin: 12/14/19 10:41 Dose: 25 mg Documented by: Ondansetron HCl (Zofran) 4 mg IV Q8H PRN PRN PRN Reason: NAUSEA/VOMITING Paroxetine HCl (Paxil) 10 mg PO QHS [facility] Last Admin: 12/14/19 21:30 Dose: 10 mg Documented by: Prednisone () 40 mg PO DAILY@0800 [facility] Last Admin: 12/14/19 10:41 Dose: 40 mg Documented by: Senna (Senokot) 2 tablet PO BID [facility] Stop: 12/15/19 23:00 Last Admin: 12/14/19 21:28 Dose: 2 tablet Documented by: Senna (Senokot) 2 tablet PO BID PRN PRN PRN Reason: Constipation Sodium Chloride () 10 - 40 ml IV UD PRN PRN Reason: SALINE FLUSH Last Admin: 12/14/19 10:40 Dose: 20 ml Documented by: STROKE Vital Signs/Narrative: Vital Signs Pulse Resp Pulse Ox 12/15/19 06:56 81 16 100 Medical Necessity - Tobacco Use Smoking Status: Former smoker Inpatient E&M: 90086 Subs Hosp L2
[2019-12-15] MEDS: Acetaminophen 325 MG Tablet 650 MG PO ×2 (09:21→17:14)
[2019-12-15] MEDS: Famotidine 200 MG/20 ML MDV 20 MG in 0.9% Normal Saline (Pres. free 8 ML 100 MG IV (09:21)
[2019-12-15] MEDS: Losartan Potassium 25 MG Tablet PO (09:22)
[2019-12-15] MEDS: predniSONE 20 MG Tablet 40 MG PO (09:22)
[2019-12-15] MEDS: Furosemide 40 MG Tablet PO ×2 (09:22→17:14)
[2019-12-15] MEDS: Enoxaparin 40 MG/0.4 ML Syringe SC (09:24)
[2019-12-15] MEDS: ALPRAZolam 0.25 MG Tablet 0.125 MG PO ×2 (09:28→17:13)
--- NOTE | 2019-12-15 10:01 | PCM.PN.PUL ---
Subjective: Patient did well overnight. Patient reporting subjective improvement in overall condition. Patient did use his trilogy machine overnight and denies any complications. Patient does report a generalized sense of weakness. Patient did report bowel movements in the last 24 hours. - Physical Exam Vitals/I&O's: Vital Signs Temp Pulse Resp BP Pulse Ox 36.8 C 90 17 130/71 H 96 12/15/19 09:29 12/15/19 09:29 12/15/19 09:29 12/15/19 09:29 12/15/19 09:29 Oxygen Flow Rate (L/min) 5 Oxygen Delivery Method Nasal Cannula Weight: 53.8 kg Body Mass Index (BMI) 20.0 Intake and Output for Last 24 Hours 12/13/19 12/14/19 12/15/19 23:59 23:59 23:59 Intake Total 1096.5 / 1096.5 1299.75 / 1299.75 178.50 / 178.50 Output Total 5330 / 5330 1999 / 1999 175 / 175 Balance -4233.5 / -4233.5 -700.25 / -700.25 3.50 / 3.50 General: Alert, Oriented x3, Cooperative, - - Mild conversational dyspnea. Sitting upright in bed. HEENT: Atraumatic, PERRLA, EOMI, Normocephalic, - - No scleral icterus or injection noted Oral: No Gingival or Mucosal Lesions/ Ulcerations, Dry Mucosa Neck: Supple, No JVD, No Nodes, Trachea Midline Lungs: No rhonchi, No wheeze, No rales, Diminished, - - Fair effort Cardiovascular: Regular rate, Regular Rhythm, Normal S1, Normal S2, Murmur - Unchanged from previous visits, No rub noted, No Gallop Abdomen: Bowel Sounds Present, Soft, Non Tender, Non-Distended Extremities: No clubbing, No cyanosis, No edema Skin: No rashes, No breakdown Musculoskeletal: No Tenderness to Palpation of Joints or Extremities Lymphatic: No Cervical, Supraclavicular, or Inguinal Adenopathy Neurological: Cranial nerves II-XII grossly intact, Neuro grossly intact, Motor Exam 5/5 strength throughout Psych/Mental Status: Anxious Microbiology Past 72 Hours 12/09/19 16:25 Blood Culture (Wb) - Anticubital Right Blood Culture - Final No growth in 5 days. 12/09/19 18:05 Blood Culture (Wb) - Anticubital Left Blood Culture - Final No growth in 5 days. 12/10/19 10:54 Sputum, Induced/Lukens Gram Stain - Final 12/10/19 10:54 Sputum, Induced/Lukens Respiratory Culture - Final Culture exhibits no growth. Laboratory Results 12/15/19 05:16: WBC 10.8, RBC 4.33 L, Hgb 11.5 L, Hct 39.2 L, MCV 90.5, MCH 26.6 L, MCHC 29.3 L, RDW Std Deviation 54.6 H, RDW Coeff of Earline 16.4 H, Plt Count 176, MPV 9.9, Immature Gran % (Auto) 0.300, Neut % (Auto) 76.7 H, Lymph % (Auto) 13.3 L, [place] % (Auto) 9.3, Eos % (Auto) 0.4, Baso % (Auto) 0.0, Absolute Neuts (auto) 8.3 H, Absolute Lymphs (auto) 1.44, Nucleated RBC % 0 12/15/19 05:16: Sodium 144, Potassium 3.5, Chloride 98, Carbon Dioxide 43.0 H, Anion Gap 3 L, BUN 30 H, Creatinine 0.66 L, Estim Creat Clear Calc 42.59, Est GFR (MDRD) Af Amer 148, Est GFR (MDRD) Non-Af 123, BUN/Creatinine Ratio 45.5 H, Glucose 82, Calcium 9.3 Current Medications Acetaminophen (Tylenol) 650 mg PO Q6H PRN PRN PRN Reason: Pain Score 1-10/10 Last Admin: 12/15/19 09:21 Dose: 650 mg Documented by: Albuterol/Ipratropium (Duoneb) 3 ml INHALATION Q4H.RT [facility] Last Admin: 12/15/19 06:56 Dose: 3 ml Documented by: Alprazolam (Xanax) 0.125 mg PO TID PRN PRN PRN Reason: ANXIETY Last Admin: 12/15/19 09:28 Dose: 0.125 mg Documented by: Bisacodyl (Dulcolax) 10 mg RECTAL DAILY PRN PRN PRN Reason: Constipation Enoxaparin Sodium (Lovenox) 40 mg SC DAILY [facility] Last Admin: 12/15/19 09:24 Dose: 40 mg Documented by: Furosemide (Lasix) 40 mg PO BID@1000,1800 [facility] Last Admin: 12/15/19 09:22 Dose: 40 mg Documented by: Famotidine 20 mg/ Sodium (Chloride) 10 mls @ 300 mls/hr IV Q12 [facility] Last Infusion: 12/15/19 09:27 Dose: Infused Documented by: Sodium Chloride () 250 mls @ 15 mls/hr IV .[id number] PRN PRN Reason: Saline Flush Sodium Chloride () 250 mls @ 15 mls/hr IV .[id number] PRN PRN Reason: Additional IVPB Infusion Last Infusion: 12/15/19 01:59 Dose: Infused Documented by: Meropenem 1 gm/ Sodium (Chloride) 120 mls @ 33 mls/hr IV Q8 [facility] Last Infusion: 12/15/19 09:43 Dose: Infused Documented by: Losartan Potassium (Cozaar) 25 mg PO DAILY [facility] Last Admin: 12/15/19 09:22 Dose: 25 mg Documented by: Ondansetron HCl (Zofran) 4 mg IV Q8H PRN PRN PRN Reason: NAUSEA/VOMITING Paroxetine HCl (Paxil) 10 mg PO QHS [facility] Last Admin: 12/14/19 21:30 Dose: 10 mg Documented by: Prednisone () 40 mg PO DAILY@0800 [facility] Last Admin: 12/15/19 09:22 Dose: 40 mg Documented by: Senna (Senokot) 2 tablet PO BID [facility] Stop: 12/15/19 23:00 Last Admin: 12/15/19 09:25 Dose: Not Given Documented by: Senna (Senokot) 2 tablet PO BID PRN PRN PRN Reason: Constipation Sodium Chloride () 10 - 40 ml IV UD PRN PRN Reason: SALINE FLUSH Last Admin: 12/14/19 10:40 Dose: 20 ml Documented by: Medical Necessity - Tobacco Use Smoking Status: Former smoker Assessment/Plan RECOMMENDATIONS: 1. Continue empiric antimicrobials with plans to complete a 7-day treatment course. 2. Continue p.o. diuretic and steroids. Plans to wean steroids over the next 10-14 days 3. Wean oxygen as tolerated. 4. Continue bronchodilators. 5. Dietary advancement per speech therapy recommendations. Possible modified barium swallow 6. Continue AVAPS nightly per home regimen. IMPRESSIONS: 1. Acute on chronic combined respiratory failure Likely multifactorial in etiology with underlying healthcare associated pneumonia and heart failure contributing. The patient has received adequate volume resuscitation. Plan to continue to wean supplemental oxygen saturations at or above 88%. The patient was able to be successfully extubated on December 11. Plan to continue AVAPS therapy, per home regimen, throughout the day as needed and nightly. Plan to continue scheduled bronchodilators and steroids. Continue empiric antimicrobial coverage. Anticipate weaning steroids over the next 10 to 14 days. 2. Septic shock with concern for healthcare associated pneumonia Resolved. Continue current supportive measures as noted above, with broad-spectrum antimicrobial coverage. The patient has been weaned from vasopressor support and remains hemodynamically stable at this time. 3. Acute on chronic heart failure with preserved ejection fraction Continue scheduled Lasix as ordered, with additional potassium repletion as required. Patient has responded well to diuretic therapy in the past. Patient is currently on baseline oxygen therapy. 4. Indeterminate cardiac enzymes/paroxysmal atrial flutter Most likely related to demand ischemia in the setting of #1 and 2. Continue current medical management. 5. Hypertension/hyperlipidemia/personal history of lung cancer/tobacco dependency in remission Complicates care, management, recovery and prognosis. Dietary advancement per speech therapy recommendations. Inpatient E&M: 42029 [facility] L3
--- NOTE | 2019-12-15 10:09 | CASEMGMT ---
DOROTEO spoke with patient and he plans on going home at d/c. He said that is the plan right now anyway. SW will keep his name on the TCU list in the event this changes as he is not doing very well with therapy. Plan: home vs TCU Kathrine RAMIREZ MSW
--- NOTE | 2019-12-15 11:16 | PCM.PROGNOTE ---
<Xena Hernandez - Last Filed: 12/15/19 11:48> Subjective: Patient seen and examined. Resting in in bed, no acute distress. Denies shortness of breath, cough, fever, chills. Patient to undergo MBS today for further swallow evaluation. - Physical Exam Vitals/I&O's: Vital Signs Temp Pulse Resp BP Pulse Ox 98.2 F 128 H 17 130/71 H 96 12/15/19 09:29 12/15/19 10:59 12/15/19 09:29 12/15/19 09:29 12/15/19 09:29 Oxygen Flow Rate (L/min) 5 Oxygen Delivery Method Nasal Cannula Weight: 118 lb 9.739 oz Body Mass Index (BMI) 20.0 Intake and Output for Last 24 Hours 12/13/19 12/14/19 12/15/19 23:59 23:59 23:59 Intake Total 1096.5 / 1096.5 1299.75 / 1299.75 178.50 / 178.50 Output Total 5330 / 5330 1999 175 / 175 Balance -4233.5 / -4233.5 -700.25 / -700.25 3.50 / 3.50 General: Alert, Oriented x3, Cooperative HEENT: Atraumatic, PERRLA, EOMI, Normocephalic Oral: Dry Mucosa Neck: Supple, No JVD, Negative Carotid Bruits Lungs: Clear to auscultation, Diminished Cardiovascular: Regular rate, Regular Rhythm, Normal S1, Normal S2, Murmur Abdomen: Bowel Sounds Present, Soft, Non Tender, Non-Distended Extremities: No clubbing, No cyanosis, No edema, Capillary Refill Less than 3 Seconds Skin: No rashes, No breakdown Musculoskeletal: No Tenderness to Palpation of Joints or Extremities Neurological: Cranial nerves II-XII grossly intact, Neuro grossly intact Psych/Mental Status: Normal Affect, Appropriate Microbiology Past 72 Hours 12/09/19 16:25 Blood Culture (Wb) - Anticubital Right Blood Culture - Final No growth in 5 days. 12/09/19 18:05 Blood Culture (Wb) - Anticubital Left Blood Culture - Final No growth in 5 days. 12/10/19 10:54 Sputum, Induced/Lukens Gram Stain - Final 12/10/19 10:54 Sputum, Induced/Lukens Respiratory Culture - Final Culture exhibits no growth. Laboratory Results 12/15/19 05:16: WBC 10.8, RBC 4.33 L, Hgb 11.5 L, Hct 39.2 L, MCV 90.5, MCH 26.6 L, MCHC 29.3 L, RDW Std Deviation 54.6 H, RDW Coeff of Earline 16.4 H, Plt Count 176, MPV 9.9, Immature Gran % (Auto) 0.300, Neut % (Auto) 76.7 H, Lymph % (Auto) 13.3 L, Hale % (Auto) 9.3, Eos % (Auto) 0.4, Baso % (Auto) 0.0, Absolute Neuts (auto) 8.3 H, Absolute Lymphs (auto) 1.44, Nucleated RBC % 0 12/15/19 05:16: Sodium 144, Potassium 3.5, Chloride 98, Carbon Dioxide 43.0 H, Anion Gap 3 L, BUN 30 H, Creatinine 0.66 L, Estim Creat Clear Calc 42.59, Est GFR (MDRD) Af Amer 148, Est GFR (MDRD) Non-Af 123, BUN/Creatinine Ratio 45.5 H, Glucose 82, Calcium 9.3 Current Medications Acetaminophen (Tylenol) 650 mg PO Q6H PRN PRN PRN Reason: Pain Score 1-10/10 Last Admin: 12/15/19 09:21 Dose: 650 mg Documented by: Albuterol/Ipratropium (Duoneb) 3 ml INHALATION Q4H.RT [facility] Last Admin: 12/15/19 11:04 Dose: 3 ml Documented by: Alprazolam (Xanax) 0.125 mg PO TID PRN PRN PRN Reason: ANXIETY Last Admin: 12/15/19 09:28 Dose: 0.125 mg Documented by: Bisacodyl (Dulcolax) 10 mg RECTAL DAILY PRN PRN PRN Reason: Constipation Enoxaparin Sodium (Lovenox) 40 mg SC DAILY [facility] Last Admin: 12/15/19 09:24 Dose: 40 mg Documented by: Furosemide (Lasix) 40 mg PO BID@1000,1800 [facility] Last Admin: 12/15/19 09:22 Dose: 40 mg Documented by: Famotidine 20 mg/ Sodium (Chloride) 10 mls @ 300 mls/hr IV Q12 [facility] Last Infusion: 12/15/19 09:27 Dose: Infused Documented by: Sodium Chloride () 250 mls @ 15 mls/hr IV .[id number] PRN PRN Reason: Saline Flush Sodium Chloride () 250 mls @ 15 mls/hr IV .[id number] PRN PRN Reason: Additional IVPB Infusion Last Infusion: 12/15/19 01:59 Dose: Infused Documented by: Meropenem 1 gm/ Sodium (Chloride) 120 mls @ 33 mls/hr IV Q8 [facility] Last Infusion: 12/15/19 09:43 Dose: Infused Documented by: Losartan Potassium (Cozaar) 25 mg PO DAILY [facility] Last Admin: 12/15/19 09:22 Dose: 25 mg Documented by: Ondansetron HCl (Zofran) 4 mg IV Q8H PRN PRN PRN Reason: NAUSEA/VOMITING Paroxetine HCl (Paxil) 10 mg PO QHS [facility] Last Admin: 12/14/19 21:30 Dose: 10 mg Documented by: Prednisone () 40 mg PO DAILY@0800 [facility] Last Admin: 12/15/19 09:22 Dose: 40 mg Documented by: Senna (Senokot) 2 tablet PO BID [facility] Stop: 12/15/19 23:00 Last Admin: 12/15/19 09:25 Dose: Not Given Documented by: Senna (Senokot) 2 tablet PO BID PRN PRN PRN Reason: Constipation Sodium Chloride () 10 - 40 ml IV UD PRN PRN Reason: SALINE FLUSH Last Admin: 12/14/19 10:40 Dose: 20 ml Documented by: Medical Necessity - Tobacco Use Smoking Status: Former smoker Assessment/Plan 1. Acute on chronic combined respiratory failure secondary to healthcare associated pneumonia and acute on chronic diastolic CHF, complicated by underlying chronic severe COPD-extubated 12/12/2019. Continue BiPAP nightly. Continue supplement oxygen to maintain O2 at or above 90%. Albuterol and DuoNeb aerosols. Patient wears chronic supplemental oxygen at baseline, will need repeat oxygen testing prior to discharge. 2. Septic shock secondary to left lower lobe healthcare associated pneumonia-concern for aspiration as well given dysphagia. ST following. To undergo MBS today for further evaluation. N.p.o. pending MBS. Continue IV meropenem. Urine negative for strep and Legionella, blood cultures negative, sputum culture shows no growth. Respiratory panel and COVID negative. 3. Acute on chronic CHF with preserved ejection fraction-echo September 2019 demonstrated an EF of 55%. Initially treated with IV Lasix which has since been transitioned to home oral regimen, 40 mg twice daily. Currently stable. 4. 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 Currently sinus. 5. Abnormal troponin-probable demand ischemia. Patient denies chest pain. Echo September 2019 demonstrated an EF of 55%, stage I diastolic dysfunction. 6. Hypertension-stable, continue losartan, Lasix regimen. 7. History of lung cancer-continue outpatient follow-up with pulmonary medicine. Follows with [facility] pulmonology and also Dr. Mccartney. 8. Tobacco dependence in remission 9. GERD- continue famotidine. 10. Depression-continue paroxetine regimen. DVT prophylaxis-Lovenox subcu Discharge planning: Home with home health versus SNF, PT following This patient was seen by CAITLIN Andrade under the supervision of Dr. Calvillo. <Adrienne Vásquez - Last Filed: 12/15/19 12:51> - Physical Exam Vitals/I&O's: Vital Signs Temp Pulse Resp BP Pulse Ox 98.2 F 88 16 130/71 H 96 12/15/19 09:29 12/15/19 11:04 12/15/19 11:04 12/15/19 09:29 12/15/19 09:29 Oxygen Flow Rate (L/min) 5 Oxygen Delivery Method Nasal Cannula Weight: 53.8 kg Body Mass Index (BMI) 20.0 Intake and Output for Last 24 Hours 12/13/19 12/14/19 12/15/19 23:59 23:59 23:59 Intake Total 1096.5 / 1096.5 1299.75 / 1299.75 178.50 / 178.50 Output Total 5330 / 5330 1999 175 / 175 Balance -4233.5 / -4233.5 -700.25 / -700.25 3.50 / 3.50 Microbiology Past 72 Hours 12/09/19 16:25 Blood Culture (Wb) - Anticubital Right Blood Culture - Final No growth in 5 days. 12/09/19 18:05 Blood Culture (Wb) - Anticubital Left Blood Culture - Final No growth in 5 days. 12/10/19 10:54 Sputum, Induced/Lukens Gram Stain - Final 12/10/19 10:54 Sputum, Induced/Lukens Respiratory Culture - Final Culture exhibits no growth. Laboratory Results 12/15/19 05:16: WBC 10.8, RBC 4.33 L, Hgb 11.5 L, Hct 39.2 L, MCV 90.5, MCH 26.6 L, MCHC 29.3 L, RDW Std Deviation 54.6 H, RDW Coeff of Earline 16.4 H, Plt Count 176, MPV 9.9, Immature Gran % (Auto) 0.300, Neut % (Auto) 76.7 H, Lymph % (Auto) 13.3 L, Hale % (Auto) 9.3, Eos % (Auto) 0.4, Baso % (Auto) 0.0, Absolute Neuts (auto) 8.3 H, Absolute Lymphs (auto) 1.44, Nucleated RBC % 0 12/15/19 05:16: Sodium 144, Potassium 3.5, Chloride 98, Carbon Dioxide 43.0 H, Anion Gap 3 L, BUN 30 H, Creatinine 0.66 L, Estim Creat Clear Calc 42.59, Est GFR (MDRD) Af Amer 148, Est GFR (MDRD) Non-Af 123, BUN/Creatinine Ratio 45.5 H, Glucose 82, Calcium 9.3 Current Medications Acetaminophen (Tylenol) 650 mg PO Q6H PRN PRN PRN Reason: Pain Score 1-10/10 Last Admin: 12/15/19 09:21 Dose: 650 mg Documented by: Albuterol/Ipratropium (Duoneb) 3 ml INHALATION Q4H.RT [facility] Last Admin: 12/15/19 11:04 Dose: 3 ml Documented by: Alprazolam (Xanax) 0.125 mg PO TID PRN PRN PRN Reason: ANXIETY Last Admin: 12/15/19 09:28 Dose: 0.125 mg Documented by: Bisacodyl (Dulcolax) 10 mg RECTAL DAILY PRN PRN PRN Reason: Constipation Enoxaparin Sodium (Lovenox) 40 mg SC DAILY [facility] Last Admin: 12/15/19 09:24 Dose: 40 mg Documented by: Furosemide (Lasix) 40 mg PO BID@1000,1800 [facility] Last Admin: 12/15/19 09:22 Dose: 40 mg Documented by: Famotidine 20 mg/ Sodium (Chloride) 10 mls @ 300 mls/hr IV Q12 [facility] Last Infusion: 12/15/19 09:27 Dose: Infused Documented by: Sodium Chloride () 250 mls @ 15 mls/hr IV .[id number] PRN PRN Reason: Saline Flush Sodium Chloride () 250 mls @ 15 mls/hr IV .[id number] PRN PRN Reason: Additional IVPB Infusion Last Infusion: 12/15/19 01:59 Dose: Infused Documented by: Meropenem 1 gm/ Sodium (Chloride) 120 mls @ 33 mls/hr IV Q8 [facility] Last Infusion: 12/15/19 09:43 Dose: Infused Documented by: Losartan Potassium (Cozaar) 25 mg PO DAILY [facility] Last Admin: 12/15/19 09:22 Dose: 25 mg Documented by: Ondansetron HCl (Zofran) 4 mg IV Q8H PRN PRN PRN Reason: NAUSEA/VOMITING Paroxetine HCl (Paxil) 10 mg PO QHS [facility] Last Admin: 12/14/19 21:30 Dose: 10 mg Documented by: Prednisone () 40 mg PO DAILY@0800 [facility] Last Admin: 12/15/19 09:22 Dose: 40 mg Documented by: Senna (Senokot) 2 tablet PO BID [facility] Stop: 12/15/19 23:00 Last Admin: 12/15/19 09:25 Dose: Not Given Documented by: Senna (Senokot) 2 tablet PO BID PRN PRN PRN Reason: Constipation Sodium Chloride () 10 - 40 ml IV UD PRN PRN Reason: SALINE FLUSH Last Admin: 12/14/19 10:40 Dose: 20 ml Documented by: Assessment/Plan This patient was seen in conjunction with Xena Hernandez NP. I have independently interviewed and examined the patient and reviewed pertinent historical, laboratory, and other data. Please refer to her note for patient's presentation, findings, and recommendations. Patient was seen and examined. He feels improved. He has occasional cough. He denies fever or chills. No acute events overnight. On 5L oxygen; on same home oxygen levels Physical Exam: Gen: Comfortable, not pale, not jaundiced, alert oriented x3 CVS:HS I +II, regular, no murmurs RESP: Diminished, especially at the bases GI: BS present and normal, nontender, no palpable organs EXT:No edema Labs reviewed: ASSESSMENT: 1. Acute on chronic hypoxic respiratory failure, improved 2. Pneumonia 3. Septic shock, resolved 4. Acute on chronic CHF, EF 55% 5. Dysphagia 6. Paroxysmal A. flutter/Mobitz type 2 AV block 7. Elevated troponin secondary to demand ischemia 8. H/o lung CA 9. Nicotine dependence 10. GERD 11. Depression Meds reviewed Plan: Continue on IV meropenem(day 6); will stop antibiotics on day 7 Continue to encourage use of incentive spirometer Will follow-up on discharge planning Inpatient E&M: [id number] [facility] L[facility]
[2019-12-15] MEDS: 0.9% Saline Lock 10 ML Syringe IV ×2 (14:40→22:43)
--- NOTE | 2019-12-15 14:44 | CASEMGMT ---
SW reviewed therapy notes and noted OT recommended home health and PT recommended additional therapy. SW spoke with patient and asked if he would be open to home health at discharge. He said no not with this virus going around. He said his told him no home health right now with [place] Virus going around. Plan: Likely home at d/c. Kathrine RAMIREZ MSW
[2019-12-15] MEDS: Famotidine 200 MG/20 ML MDV 20 MG in 0.9% Normal Saline (Pres. free 8 ML 300 MG IV (22:31)
[2019-12-15] MEDS: PARoxetine 10 MG Tablet PO (22:32)
[2019-12-16 03:00] VITALS: PULSE 95
[2019-12-16 04:50] VITALS: BP 125/65; PULSE 91; RESP 18; TEMP 36.9; O2SAT 97
[2019-12-16] MEDS: Acetaminophen 325 MG Tablet 650 MG PO (04:57)
--- NOTE | 2019-12-16 05:21 | CPS ---
pt wears his own machine with 7L o2 bled in
[2019-12-16 07:04] LABS: Absolute Lymphocyte Count 1.23 X10^3/uL (0.83-4.51); Absolute Neutrophil Count 5.6 X10^3/uL (2.0-7.7); Eosinophil# 0.14 X10^3/uL; Eosinophils% 1.8 % (0-5); Hematocrit 34.8 % (40-54); Hemoglobin 10.3 g/dL (13.0-16.5); Lymphocyte # 1.23 X10^3/ul (4.0); Lymphocyte % 15.9 % (19-41); Mean Corp Hgb Conc 29.6 g/dL (32-36); Mean Corpuscular Hgb 26.8 pg (27.0-32.0); Mean Corpuscular Volume 90.4 fL (80-94); Mean Platelet Vol. 10.2 fl (6.2-12.0); Monocyte# 0.78 X10^3/uL; Monocyte% 10.1 % (0-10); NRBC Flagged by Analyzer 0 % (0-5); Neutrophil # 5.59 X10^3/uL (2.7-7.7); Neutrophil % 71.9 % (47-70); Platelet Count 140 K/mm3 (150-450); RBC Distribution Width CV 16.7 % (11.6-14.6); RBC Distribution Width SD 54.8 fl (35.1-43.9); Red Blood Count 3.85 M/mm3 (4.6-6.2); White Blood Count 7.8 K/mm3 (4.4-11.0)
[2019-12-16 07:05] VITALS: PULSE 86
[2019-12-16 07:28] LABS: Anion Gap 2 (5-15); BUN 32 mg/dL (7-18); BUN/Creat Ratio 58.6 RATIO (10-20); Chloride 98 mmol/L (98-107); Creatinine, Serum 0.55 mg/dL (0.70-1.30); EST Glomerular Filtration Rate 152 mL/min (>60); Est Glom Filt Rate - Afr Amer 184 mL/min (>60); Estimated Creatinine Clearance 43.15 ml/min; Glucose 97 mg/dL (74-106); Potassium 3.7 mmol/L (3.5-5.1); Sodium Level 143 mmol/L (136-145)
[2019-12-16 07:35] VITALS: PULSE 90; RESP 18; O2SAT 92
[2019-12-16] MEDS: Ipratropium/Albuterol Sulfate 3 ML AMPUL.NEB INHALATION ×2 (07:35→10:43)
[2019-12-16] MEDS: Senna Tablet 2 TABLET PO (08:02)
[2019-12-16] MEDS: predniSONE 20 MG Tablet 40 MG PO (08:02)
[2019-12-16] MEDS: ALPRAZolam 0.25 MG Tablet 0.125 MG PO (08:06)
[2019-12-16 09:35] VITALS: BP 104/43; PULSE 100; RESP 18; TEMP 36.8; O2SAT 96
[2019-12-16] MEDS: Losartan Potassium 25 MG Tablet PO (09:39)
[2019-12-16] MEDS: Famotidine 200 MG/20 ML MDV 20 MG in 0.9% Normal Saline (Pres. free 8 ML 300 MG IV (09:39)
[2019-12-16] MEDS: Furosemide 40 MG Tablet PO (09:39)
[2019-12-16] MEDS: 0.9% Saline Lock 10 ML Syringe IV (09:40)
--- NOTE | 2019-12-16 09:50 | PCM.PN.PUL ---
Subjective: Patient did well overnight. No acute issues were reported. Patient states he feels subjectively improved over the last 24 hours. Patient did have a swallow study and has been placed on mechanically soft with thin liquids. Has some minor rib pain located on his inferior right ribs, but this is not a new pain. - Physical Exam Vitals/I&O's: Vital Signs Temp Pulse Resp BP Pulse Ox 36.8 C 100 18 104/43 L 96 12/16/19 09:35 12/16/19 09:35 12/16/19 09:35 12/16/19 09:35 12/16/19 09:35 Oxygen Flow Rate (L/min) 5 Oxygen Delivery Method Nasal Cannula Weight: 54.5 kg Body Mass Index (BMI) 20.0 Intake and Output for Last 24 Hours 12/14/19 12/15/19 12/16/19 23:59 23:59 23:59 Intake Total 1299.75 / 1299.75 874.15 / 874.15 324.35 / 324.35 Output Total 1999 775 / 1025 425 / 425 Balance -700.25 / -700.25 99.15 / -150.85 -100.65 / -100.65 General: Alert, Oriented x3, Cooperative, No apparent distress, - - Appears older than stated age. Speaking in full sentences HEENT: Atraumatic, PERRLA, EOMI, Normocephalic, - - No scleral icterus or injection noted Oral: Moist Mucosa, No Gingival or Mucosal Lesions/ Ulcerations Neck: Supple, No JVD, No Nodes, Trachea Midline Lungs: No rhonchi, No wheeze, No rales, Diminished, - - Symmetric expansion. No dullness to percussion. Cardiovascular: Normal S1, Normal S2, Irregular Rate, Murmur, No rub noted, No Gallop Abdomen: Bowel Sounds Present, Soft, Non Tender, Non-Distended Extremities: No cyanosis, No edema Skin: No rashes, No breakdown Musculoskeletal: No Tenderness to Palpation of Joints or Extremities Lymphatic: No Cervical, Supraclavicular, or Inguinal Adenopathy Neurological: Cranial nerves II-XII grossly intact, Neuro grossly intact, Motor Exam 5/5 strength throughout Psych/Mental Status: Alert and oriented to time, place, person, mood and affect Microbiology Past 72 Hours 12/09/19 16:25 Blood Culture (Wb) - Anticubital Right Blood Culture - Final No growth in 5 days. 12/09/19 18:05 Blood Culture (Wb) - Anticubital Left Blood Culture - Final No growth in 5 days. Laboratory Results 12/16/19 06:19: WBC 7.8, RBC 3.85 L, Hgb 10.3 L, Hct 34.8 L, MCV 90.4, MCH 26.8 L, MCHC 29.6 L, RDW Std Deviation 54.8 H, RDW Coeff of Earline 16.7 H, Plt Count 140 L, MPV 10.2, Immature Gran % (Auto) 0.300, Neut % (Auto) 71.9 H, Lymph % (Auto) 15.9 L, [place] % (Auto) 10.1 H, Eos % (Auto) 1.8, Baso % (Auto) 0.0, Absolute Neuts (auto) 5.6, Absolute Lymphs (auto) 1.23, Nucleated RBC % 0 12/16/19 06:19: Sodium 143, Potassium 3.7, Chloride 98, Carbon Dioxide 43.0 H, Anion Gap 2 L, BUN 32 H, Creatinine 0.55 L, Estim Creat Clear Calc 43.15, Est GFR (MDRD) Af Amer 184, Est GFR (MDRD) Non-Af 152, BUN/Creatinine Ratio 58.6 H, Glucose 97, Calcium 9.0 Current Medications Acetaminophen (Tylenol) 650 mg PO Q6H PRN PRN PRN Reason: Pain Score 1-10/10 Last Admin: 12/16/19 04:57 Dose: 650 mg Documented by: Albuterol/Ipratropium (Duoneb) 3 ml INHALATION Q4H.RT [facility] Last Admin: 12/16/19 07:35 Dose: 3 ml Documented by: Alprazolam (Xanax) 0.125 mg PO TID PRN PRN PRN Reason: ANXIETY Last Admin: 12/16/19 08:06 Dose: 0.125 mg Documented by: Bisacodyl (Dulcolax) 10 mg RECTAL DAILY PRN PRN PRN Reason: Constipation Enoxaparin Sodium (Lovenox) 40 mg SC DAILY [facility] Last Admin: 12/16/19 09:41 Dose: Not Given Documented by: Furosemide (Lasix) 40 mg PO BID@1000,1800 [facility] Last Admin: 12/16/19 09:39 Dose: 40 mg Documented by: Famotidine 20 mg/ Sodium (Chloride) 10 mls @ 300 mls/hr IV Q12 [facility] Last Infusion: 12/16/19 09:44 Dose: Infused Documented by: Sodium Chloride () 250 mls @ 15 mls/hr IV .[id number] PRN PRN Reason: Saline Flush Sodium Chloride () 250 mls @ 15 mls/hr IV .[id number] PRN PRN Reason: Additional IVPB Infusion Last Infusion: 12/15/19 01:59 Dose: Infused Documented by: Meropenem 1 gm/ Sodium (Chloride) 120 mls @ 33 mls/hr IV Q8 [facility] Stop: 12/17/19 14:01 Last Infusion: 12/16/19 09:13 Dose: Infused Documented by: Losartan Potassium (Cozaar) 25 mg PO DAILY [facility] Last Admin: 12/16/19 09:39 Dose: 25 mg Documented by: Ondansetron HCl (Zofran) 4 mg IV Q8H PRN PRN PRN Reason: NAUSEA/VOMITING Paroxetine HCl (Paxil) 10 mg PO QHS [facility] Last Admin: 12/15/19 22:32 Dose: 10 mg Documented by: Prednisone () 40 mg PO DAILY@0800 [facility] Last Admin: 12/16/19 08:02 Dose: 40 mg Documented by: Senna (Senokot) 2 tablet PO BID PRN PRN PRN Reason: Constipation Last Admin: 12/16/19 08:02 Dose: 2 tablet Documented by: Sodium Chloride () 10 - 40 ml IV UD PRN PRN Reason: SALINE FLUSH Last Admin: 12/16/19 09:40 Dose: 10 ml Documented by: Medical Necessity - Tobacco Use Smoking Status: Former smoker Assessment/Plan RECOMMENDATIONS: 1. Continue empiric antimicrobials with plans to complete a 7-day treatment course. 2. Continue p.o. diuretic and steroids. Plans to wean steroids over the next 10-14 days 3. Wean oxygen as tolerated. Walking oximetry prior to discharge 4. Continue bronchodilators. 5. Okay to discharge from a pulmonary perspective 6. Continue AVAPS nightly per home regimen. IMPRESSIONS: 1. Acute on chronic combined respiratory failure Likely multifactorial in etiology with underlying healthcare associated pneumonia and heart failure contributing. The patient has received adequate volume resuscitation. Plan to continue to wean supplemental oxygen saturations at or above 88%. The patient was able to be successfully extubated on December 11. Plan to continue AVAPS therapy, per home regimen, throughout the day as needed and nightly. Plan to continue scheduled bronchodilators and steroids. Continue empiric antimicrobial coverage to complete a 7-day course. Likely no indication for antibiotics on discharge. Anticipate weaning steroids over the next 10 to 14 days. 2. Septic shock with concern for healthcare associated pneumonia Resolved. Continue current supportive measures as noted above, with broad-spectrum antimicrobial coverage. The patient has been weaned from vasopressor support and remains hemodynamically stable at this time. 3. Acute on chronic heart failure with preserved ejection fraction Continue scheduled Lasix as ordered, with additional potassium repletion as required. Patient has responded well to diuretic therapy in the past. Patient is currently on baseline oxygen therapy. 4. Indeterminate cardiac enzymes/paroxysmal atrial flutter Most likely related to demand ischemia in the setting of #1 and 2. Continue current medical management. 5. Hypertension/hyperlipidemia/personal history of lung cancer/tobacco dependency in remission Complicates care, management, recovery and prognosis. Dietary advancement per speech therapy recommendations. Inpatient E&M: [id number] [facility] L2
--- NOTE | 2019-12-16 10:17 | CASEMGMT ---
Addendum entered by Kathrine Garcia 12/16/19 10:37: SW called patient's and let her know that SW spoke with her and Hospice. SW let her know that [facility] was set up. SW explained there is a nurse python developer 26/02 with home health. SW explained Palliative Care would be good for patient, but it is not immediate. She thanked SW for calling her and letting her know about home health. Plan: Home with [facility] long term, PT, and OT. Kathrine BARRIGA Original Note: SW received a phone call from Bettina at Hospice. She said she received a call from patient's . She said he is being discharged today and she is scared to . SW told her SW will talk with patient and his . SW spoke with patient and he said his is worried about him having a breathing episode like he had when he came to the hospital. They would like someone they can call instead of coming to the hospital. SW told him SW can set up home health as there is a nurse python developer 26/02. He said that would be great and they have had [facility] in the past. DOROTEO called Nichole with [facility] and made referral. DOROTEO also spoke with RN and let her know about 's concerns. She will call patient's as well. SW will call her to let her know home health was set up. Kathrine BARRIGA
--- NOTE | 2019-12-16 10:33 | PCM.DC ---
You will use the following diet at home:: Other - Cardiac diet: Mechanical soft/ground/moist foods Discharge Activity: Return to Normal Activity Call your doctor if you observe: Shortness of breath, Dizziness, Fainting spells, Chest pain Allergies/Adverse Reactions: Allergies ampicillin Allergy (Verified 12/09/19 16:20) Anaphylaxis azithromycin Allergy (Verified 12/09/19 16:20) Rash codeine Allergy (Verified 12/09/19 16:20) Rash penicillin G Allergy (Verified 12/09/19 16:20) Rash Sulfa (Sulfonamide Antibiotics) Allergy (Verified 12/09/19 16:20) Rash sulfamethoxazole [From Bactrim] Allergy (Verified 12/09/19 16:20) Rash trimethoprim [From Bactrim] Allergy (Verified 12/09/19 16:20) Rash Medications to take at Discharge Losartan Potassium 25 mg PO DAILY #0 06/12/17 Albuterol Aerosols [Ventolin Aerosols] 2.5 mg INHALATION Q4H PRN PRN #90 vial.neb. 07/17/19 Fluticasone/Umeclidin/Vilanter [Trelegy Ellipta 100-62.5-25] 1 inh INHALATION DAILY 10/25/19 Nitroglycerin (INPATIENT USE) [Nitrostat] 0.4 mg SUBLINGUAL Q5M PRN tab.subl 10/25/19 Potassium Chloride 10 meq PO DAILY 10/25/19 Acetaminophen [Tylenol] 1,000 mg PO Q8 tab 11/07/19 Furosemide [Lasix] 40 mg PO BID@1000,1800 #60 tab 11/07/19 Menthol/Lanolin/Calamine/Znox [Calmoseptine Ointment] 1 applic TOPICAL BID tube 11/07/19 Paroxetine [Paxil] 10 mg PO QHS #30 tab 11/07/19 albuterol sulfate 90 mcg/actuation aerosol inhaler 2 puff INHALATION Q6H PRN #18 g 11/25/19 Ipratropium [Atrovent Aerosols] 0.25 mg INHALATION TID 12/09/19 Metolazone 2.5 mg PO QWEEK 12/09/19 Levofloxacin [Levaquin] 750 mg PO DAILY #1 tab 12/16/19 Prednisone See Taper PO DAILY #30 tab 12/16/19 The following prescriptions were given: Levofloxacin [Levaquin] 750 mg PO DAILY #1 tab Transmission Status: Pending to [facility] Prednisone See Taper PO DAILY #30 tab Transmission Status: Pending to [facility] Primary Care Physician: Misael Valencia MD [Primary Care Provider] - Please follow up with your Primary Care Physician in: 1 Week Test Results: Test results from this visit will be discussed in further detail at your follow-up appointment, if applicable. Please Follow Up With: Jason Alan MD When: 2 Weeks, may see TUBE MAKING MACHINE OPERATOR/PA Please Follow Up With: Janusz Mccartney DO When: 1 Week, may see TUBE MAKING MACHINE OPERATOR Proposed Discharge Date: 12/16/19
--- NOTE | 2019-12-16 10:37 | DS.PCM_ITS ---
<Xena Hernandez - Last Filed: 12/16/19 10:43> Discharge Date and Diagnosis Date of Admission: 12/09/19 Date of Discharge: 12/16/19 - Primary Discharge Diagnosis 1. Acute on chronic combined respiratory failure secondary to healthcare associated pneumonia and acute on chronic diastolic CHF, complicated by underlying chronic severe COPD 2. Septic shock secondary to left lower lobe healthcare associated pneumonia 3. Acute on chronic CHF with preserved ejection fraction 4. 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 5. Abnormal troponin-demand ischemia secondary to #1/#2 6. Hypertension 7. History of lung cancer 8. Tobacco dependence in remission 9. GERD 10. Depression - Secondary Discharge Diagnosis Chronic Problems (Last Updated 12/09/19 @ 18:[address] 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) FEV1 44% of predicted on PFT 12/15/2016 at [facility] Diastolic dysfunction (Chronic) 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) Essential hypertension (Chronic) Paroxysmal atrial flutter (Chronic) Non-rheumatic tricuspid valve insufficiency (Chronic) Aortic valve stenosis, nonrheumatic (Chronic) 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) 06/11/17 Chronic respiratory failure (Chronic) Conduction disorder of the heart (Chronic) Pulmonary hypertension (Chronic) GERD (gastroesophageal reflux disease) (Chronic) Bullous emphysema (Chronic) Hospital Course and Treatment Imaging Results: Diagnostic Data Chest X-Ray 12/09/19 17:50 IMPRESSION: Stable significant COPD changes Worsening left lower lobe infiltrate likely pneumonia, atypical viral pneumonia cannot be excluded Placement of endotracheal tube and orogastric tubes as above Stable small loculated right pleural effusion Healing subacute right rib fractures, stable osteopenia stable mild multilevel compression fractures lower to mid thoracic spine and upper lumbar spine. Electronically Signed: Bairon Jimenez, at 18:07 EDT Tel , Service support , Dr. Mccartney- Pulmonary medicine Operations: None Procedures: None Summary of Care Provided: The patient is a 84 year old M admitted 12/09/2019 due to shortness of breath. 1. Acute on chronic combined respiratory failure secondary to healthcare associated pneumonia and acute on chronic diastolic CHF, complicated by underlying chronic severe COPD-extubated 12/12/2019. Continue BiPAP nightly. Continue supplement oxygen to maintain O2 at or above 90%. Patient chronically wears 5 L nasal cannula at baseline, stable on chronic home O2 requirements. Follow-up with primary care physician and pulmonary medicine in 1 week. 2. Septic shock secondary to left lower lobe healthcare associated pneumonia-IV meropenem during admission. Levaquin x1 day at discharge to complete 7-day course of antibiotics. Prednisone taper at discharge. Urine negative for strep and Legionella, blood cultures negative, sputum culture shows no growth. Respiratory panel and COVID negative. Initially concerned for dysphagia, cleared by speech therapy for mechanical soft/ground textures. 3. Acute on chronic CHF with preserved ejection fraction-echo September 2019 demonstrated an EF of 55%. Initially treated with IV Lasix which has since been transitioned to home oral regimen, 40 mg twice daily. Currently stable. 4. 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 Currently sinus. 5. Abnormal troponin-probable demand ischemia secondary to #1/#2. Patient de nies chest pain. Echo September 2019 demonstrated an EF of 55%, stage I diastolic dysfunction. 6. Hypertension-stable, continue losartan, Lasix regimen. 7. History of lung cancer-continue outpatient follow-up with pulmonary medicine. Follows with [facility] pulmonology and also Dr. Mccartney. 8. Tobacco dependence in remission 9. GERD- continue famotidine. 10. Depression-continue paroxetine regimen. General: Alert, Oriented x3, Cooperative HEENT: Atraumatic, PERRLA, EOMI, Normocephalic Oral: Dry Mucosa Neck: Supple, No JVD, Negative Carotid Bruits Lungs: Clear to auscultation, Diminished Cardiovascular: Regular rate, Regular Rhythm, Normal S1, Normal S2, Murmur Abdomen: Bowel Sounds Present, Soft, Non Tender, Non-Distended Extremities: No clubbing, No cyanosis, No edema, Capillary Refill Less than 3 Seconds Skin: No rashes, No breakdown Musculoskeletal: No Tenderness to Palpation of Joints or Extremities Neurological: Cranial nerves II-XII grossly intact, Neuro grossly intact Psych/Mental Status: Normal Affect, Appropriate Patient seen and examined prior to discharge. Physical assessment as noted above. Patient is stable for discharge with follow up recommendations as noted above. This patient was seen by CAITLIN Andrade under the supervision of Dr. Vásquez. - Physical Exam Vitals/I&O's: Vital Signs Temp Pulse Resp BP Pulse Ox 98.2 F 100 18 104/43 L 96 12/16/19 09:35 12/16/19 09:35 12/16/19 09:35 12/16/19 09:35 12/16/19 09:35 Oxygen Flow Rate (L/min) 5 Oxygen Delivery Method Nasal Cannula Weight: 120 lb 2.431 oz Body Mass Index (BMI) 20.0 Intake and Output for Last 24 Hours 12/14/19 12/15/19 12/16/19 23:59 23:59 23:59 Intake Total 1299.75 / 1299.75 874.15 / 874.15 324.35 / 324.35 Output Total 1999 775 / 1025 425 / 425 Balance -700.25 / -700.25 99.15 / -150.85 -100.65 / -100.65 Microbiology Past 72 Hours 12/09/19 16:25 Blood Culture (Wb) - Anticubital Right Blood Culture - Final No growth in 5 days. 12/09/19 18:05 Blood Culture (Wb) - Anticubital Left Blood Culture - Final No growth in 5 days. Laboratory Results 12/16/19 06:19: WBC 7.8, RBC 3.85 L, Hgb 10.3 L, Hct 34.8 L, MCV 90.4, MCH 26.8 L, MCHC 29.6 L, RDW Std Deviation 54.8 H, RDW Coeff of Earline 16.7 H, Plt Count 140 L, MPV 10.2, Immature Gran % (Auto) 0.300, Neut % (Auto) 71.9 H, Lymph % (Auto) 15.9 L, Cherry % (Auto) 10.1 H, Eos % (Auto) 1.8, Baso % (Auto) 0.0, Absolute [place] ts (auto) 5.6, Absolute Lymphs (auto) 1.23, Nucleated RBC % 0 12/16/19 06:19: Sodium 143, Potassium 3.7, Chloride 98, Carbon Dioxide 43.0 H, Anion Gap 2 L, BUN 32 H, Creatinine 0.55 L, Estim Creat Clear Calc 43.15, Est GFR (MDRD) Af Amer 184, Est GFR (MDRD) Non-Af 152, BUN/Creatinine Ratio 58.6 H, Glucose 97, Calcium 9.0 Current Medications Acetaminophen (Tylenol) 650 mg PO Q6H PRN PRN PRN Reason: Pain Score 1-10/10 Last Admin: 12/16/19 04:57 Dose: 650 mg Documented by: Albuterol/Ipratropium (Duoneb) 3 ml INHALATION Q4H.RT [facility] Last Admin: 12/16/19 07:35 Dose: 3 ml Documented by: Alprazolam (Xanax) 0.125 mg PO TID PRN PRN PRN Reason: ANXIETY Last Admin: 12/16/19 08:06 Dose: 0.125 mg Documented by: Bisacodyl (Dulcolax) 10 mg RECTAL DAILY PRN PRN PRN Reason: Constipation Enoxaparin Sodium (Lovenox) 40 mg SC DAILY [facility] Last Admin: 12/16/19 09:41 Dose: Not Given Documented by: Furosemide (Lasix) 40 mg PO BID@1000,1800 [facility] Last Admin: 12/16/19 09:39 Dose: 40 mg Documented by: Famotidine 20 mg/ Sodium (Chloride) 10 mls @ 300 mls/hr IV Q12 [facility] Last Infusion: 12/16/19 09:44 Dose: Infused Documented by: Sodium Chloride () 250 mls @ 15 mls/hr IV .[id number] PRN PRN Reason: Saline Flush Sodium Chloride () 250 mls @ 15 mls/hr IV .[id number] PRN PRN Reason: Additional IVPB Infusion Last Infusion: 12/15/19 01:59 Dose: Infused Documented by: Meropenem 1 gm/ Sodium (Chloride) 120 mls @ 33 mls/hr IV Q8 [facility] Stop: 12/17/19 14:01 Last Infusion: 12/16/19 09:13 Dose: Infused Documented by: Losartan Potassium (Cozaar) 25 mg PO DAILY [facility] Last Admin: 12/16/19 09:39 Dose: 25 mg Documented by: Ondansetron HCl (Zofran) 4 mg IV Q8H PRN PRN PRN Reason: NAUSEA/VOMITING Paroxetine HCl (Paxil) 10 mg PO QHS [facility] Last Admin: 12/15/19 22:32 Dose: 10 mg Documented by: Prednisone () 40 mg PO DAILY@0800 [facility] Last Admin: 12/16/19 08:02 Dose: 40 mg Documented by: Senna (Senokot) 2 tablet PO BID PRN PRN PRN Reason: Constipation Last Admin: 12/16/19 08:02 Dose: 2 tablet Documented by: Sodium Chloride () 10 - 40 ml IV UD PRN PRN Reason: SALINE FLUSH Last Admin: 12/16/19 09:40 Dose: 10 ml Documented by: Discharge Diet: Low fat/ Low Cholesterol, - - Mechanical soft, ground Discharge Activity: Return to Normal Activity Call your doctor if you observe: Shortness of breath, Dizziness, Fainting spells, Chest pain Home Medications: Medications to take at Discharge Losartan Potassium 25 mg PO DAILY #0 06/12/17 Albuterol Aerosols [Ventolin Aerosols] 2.5 mg INHALATION Q4H PRN PRN #90 vial.neb. 07/17/19 Fluticasone/Umeclidin/Vilanter [Trelegy Ellipta 100-62.5-25] 1 inh INHALATION DAILY 10/25/19 Nitroglycerin (INPATIENT USE) [Nitrostat] 0.4 mg SUBLINGUAL Q5M PRN tab.subl 10/25/19 Potassium Chloride 10 meq PO DAILY 10/25/19 Acetaminophen [Tylenol] 1,000 mg PO Q8 tab 11/07/19 Furosemide [Lasix] 40 mg PO BID@1000,1800 #60 tab 11/07/19 Menthol/Lanolin/Calamine/Znox [Calmoseptine Ointment] 1 applic TOPICAL BID tube 11/07/19 Paroxetine [Paxil] 10 mg PO QHS #30 tab 11/07/19 albuterol sulfate 90 mcg/actuation aerosol inhaler 2 puff INHALATION Q6H PRN #18 g 11/25/19 Ipratropium [Atrovent Aerosols] 0.25 mg INHALATION TID 12/09/19 Metolazone 2.5 mg PO QWEEK 12/09/19 Levofloxacin [Levaquin] 750 mg PO DAILY #1 tab 12/16/19 Prednisone See Taper PO DAILY #30 tab 12/16/19 Following Prescrptions Were Given to Patient: Levofloxacin [Levaquin] 750 mg PO DAILY #1 tab Transmission Status: Received by [facility] Prednisone See Taper PO DAILY #30 tab Transmission Status: Received by [facility] Primary Care Physician: Misael Valencia MD [Primary Care Provider] - Please follow up with your Primary Care Physician in: 1 Week Please Follow Up With: Jason Alan MD When: 2 Weeks, may see SEED POTATO ARRANGER/PA Please Follow Up With: Janusz Mccartney DO When: 1 Week, may see SEED POTATO ARRANGER Disposition: Home with Home Health Minutes spent on discharge:: 35 Patient Condition:: Stable Medical Necessity - Tobacco Use Smoking Status: Former smoker Meaningful Use Info Meaningful Use Diagnoses (Choose all that apply): CHF - CHF SNEHA/ARB ordered at discharge?: Yes Documented LVEF (%): 55 <Adrienne Vásquez - Last Filed: 12/16/19 16:55> Discharge Date and Diagnosis - Secondary Discharge Diagnosis Chronic Problems (Last Updated 12/09/19 @ 18:[address] 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) FEV1 44% of predicted on PFT 12/15/2016 at [facility] Diastolic dysfunction (Chronic) 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) Essential hypertension (Chronic) Paroxysmal atrial flutter (Chronic) Non-rheumatic tricuspid valve insufficiency (Chronic) Aortic valve stenosis, nonrheumatic (Chronic) 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) 06/11/17 Chronic respiratory failure (Chronic) Conduction disorder of the heart (Chronic) Pulmonary hypertension (Chronic) GERD (gastroesophageal reflux disease) (Chronic) Bullous emphysema (Chronic) Hospital Course and Treatment Summary of Care Provided: The patient is a 84 year old M with past medical history of COPD, chronic respiratory failure on 4 L of oxygen, paroxysmal atrial fibrillation, Mobitz type II second-degree AV block status post pacemaker, hypertension, history of non-small cell lung CA in the right lower lobe status post radiotherapy, who presented with shortness of breath. Patient was found to be severely hypoxic and was intubated in the emergency room room. He subsequently went into septic shock and required the use of IV pressors in the ICU. His troponins were elevated and it was felt with secondary demand ischemia. Patient eventually got extubated on 12/12/19. Patient improved and was transferred to the ICU. Blood cultures and sputum cultures were all negative. COVID 19 was negative. Urine streptococcal and Legionella antigen were negative. He continued to improve and was back to his baseline at the time of discharge. He was discharged home to the care of the family. He will complete 1 more day of Levaquin making a total of 7 days. He declined SNF and HHC because of the current pandemic. On the day of discharge, patient was seen and examined. Patient felt improved. Denies fever or chills. On 5L oxygen Physical Exam: Gen: Comfortable, not pale, not jaundiced, alert oriented x3 CVS:HS I +II, regular, 3-4/5 ejection systolic murmur GI: BS present and normal, nontender, no palpable organs EXT:No edema - Physical Exam Vitals/I&O's: Vital Signs Temp Pulse Resp BP Pulse Ox 98.2 F 104 H 16 104/43 L 96 12/16/19 09:35 12/16/19 10:43 12/16/19 10:43 12/16/19 09:35 12/16/19 09:35 Oxygen Flow Rate (L/min) 5 Oxygen Delivery Method Nasal Cannula Weight: 54.5 kg Body Mass Index (BMI) 20.0 Intake and Output for Last 24 Hours 12/14/19 12/15/19 12/16/19 23:59 23:59 23:59 Intake Total 1299.75 / 1299.75 874.15 / 874.15 324.35 / 324.35 Output Total 1999 775 / 1025 425 / 425 Balance -700.25 / -700.25 99.15 / -150.85 -100.65 / -100.65 Microbiology Past 72 Hours 12/09/19 16:25 Blood Culture (Wb) - Anticubital Right Blood Culture - Final No growth in 5 days. 12/09/19 18:05 Blood Culture (Wb) - Anticubital Left Blood Culture - Final No growth in 5 days. Laboratory Results 12/16/19 06:19: WBC 7.8, RBC 3.85 L, Hgb 10.3 L, Hct 34.8 L, MCV 90.4, MCH 26.8 L, MCHC 29.6 L, RDW Std Deviation 54.8 H, RDW Coeff of Earline 16.7 H, Plt Count 140 L, MPV 10.2, Immature Gran % (Auto) 0.300, Neut % (Auto) 71.9 H, Lymph % (Auto) 15.9 L, Cherry % (Auto) 10.1 H, Eos % (Auto) 1.8, Baso % (Auto) 0.0, Absolute Neuts (auto) 5.6, Absolute Lymphs (auto) 1.23, Nucleated RBC % 0 12/16/19 06:19: Sodium 143, Potassium 3.7, Chloride 98, Carbon Dioxide 43.0 H, Anion Gap 2 L, BUN 32 H, Creatinine 0.55 L, Estim Creat Clear Calc 43.15, Est GFR (MDRD) Af Amer 184, Est GFR (MDRD) Non-Af 152, BUN/Creatinine Ratio 58.6 H, Glucose 97, Calcium 9.0 Inpatient E&M: 41230 Disch Hosp
[2019-12-16 10:43] VITALS: PULSE 104; RESP 16
--- NOTE | 2019-12-16 11:14 | PHA.DC.MC ---
Pharmacy Service has performed discharge medication reconciliation and counseling for this patient. 1. LEVOFLOXACIN 750MG PO DAILY X 1 DOSE 2. PREDNISONE 10MG PO DAILY (40MG X 3 DAYS, 30MG X 3 DAYS, 20MG X 3 DAYS, 10MG X 3 DAYS) The patient's discharge medication list was reviewed for discrepancies and discrepancies were resolved. Home Medications Losartan Potassium 25 mg PO DAILY #0 06/12/17 Albuterol Aerosols [Ventolin Aerosols] 2.5 mg INHALATION Q4H PRN PRN #90 vial.neb. 07/17/19 Fluticasone/Umeclidin/Vilanter [Trelegy Ellipta 100-62.5-25] 1 inh INHALATION DAILY 10/25/19 Nitroglycerin (INPATIENT USE) [Nitrostat] 0.4 mg SUBLINGUAL Q5M PRN tab.subl 10/25/19 Potassium Chloride 10 meq PO DAILY 10/25/19 Acetaminophen [Tylenol] 1,000 mg PO Q8 tab 11/07/19 Furosemide [Lasix] 40 mg PO BID@1000,1800 #60 tab 11/07/19 Menthol/Lanolin/Calamine/Znox [Calmoseptine Ointment] 1 applic TOPICAL BID tube 11/07/19 Paroxetine [Paxil] 10 mg PO QHS #30 tab 11/07/19 albuterol sulfate 90 mcg/actuation aerosol inhaler 2 puff INHALATION Q6H PRN #18 g 11/25/19 Ipratropium [Atrovent Aerosols] 0.25 mg INHALATION TID 12/09/19 Metolazone 2.5 mg PO QWEEK 12/09/19 Levofloxacin [Levaquin] 750 mg PO DAILY #1 tab 12/16/19 Prednisone See Taper PO DAILY #30 tab 12/16/19 The patient was counseled on the following discharge medications and changes in medications for homegoing were reviewed. The Reason for Use, instructions for use, and potential side effects were reviewed for all new medications. The patient's questions regarding all of their medications were answered. The patient was able to verbally demonstrate an understanding of their discharge medications.
--- NOTE | 2019-12-17 14:58 | CASEMGMT ---
FLORINDA GABRIEL Discharge F/U Phone Call LACE: 17 Strata: 4 Discharge date: 12/16/2019 Call date: 12/17/2019 Call time: [phone] Admission dx: Acute on chronic resp failure ,severe sepsis Pt states 'doing alright' since discharge and states 'I am not breaking any records or anything.' Pt states no questions regarding discharge instructions/medications at this time. Pt states has f/u appts scheduled and plans to keep them. Pt states no suggestions for [facility] at this time. Pt voices no further questions/concerns/needs at this time. [place] FLORINDA GABRIEL
== END 2019-12-16 12:28 | disposition home or self-care (01) | DRG 871 ==
LOC: ED 16:38 → ICU 18:07 → PCU 12-14 14:11
PROVIDERS: Internal Medicine; Internal Medicine Critical Care Medicine; Admitting Provider Hospitalist; Emergency Provider Emergency Medicine; PCP Internal Medicine; Visit Provider Internal Medicine
DX: A41.9 Sepsis, unspecified organism (principal); R65.21 Severe sepsis with septic shock; I50.33 Acute on chronic diastolic (congestive) heart failure; J96.21 Acute and chronic respiratory failure with hypoxia; J96.22 Acute and chronic respiratory failure with hypercapnia; J18.9 Pneumonia, unspecified organism; I24.8 Other forms of acute ischemic heart disease; I48.92 Unspecified atrial flutter; J44.1 Chronic obstructive pulmonary disease with (acute) exacerbation; J44.0 Chronic obstructive pulmonary disease with (acute) lower respiratory infection; Y95 Nosocomial condition; I11.0 Hypertensive heart disease with heart failure; Z95.0 Presence of cardiac pacemaker; I44.1 Atrioventricular block, second degree; K21.9 Gastro-esophageal reflux disease without esophagitis; F32.9 Major depressive disorder, single episode, unspecified; F41.9 Anxiety disorder, unspecified; F17.201 Nicotine dependence, unspecified, in remission; Z85.118 Personal history of other malignant neoplasm of bronchus and lung; G47.30 Sleep apnea, unspecified; I27.20 Pulmonary hypertension, unspecified; Z99.81 Dependence on supplemental oxygen; Z79.51 Long term (current) use of inhaled steroids; Z79.899 Other long term (current) drug therapy; E78.5 Hyperlipidemia, unspecified; R13.10 Dysphagia, unspecified; Z92.3 Personal history of irradiation; E87.6 Hypokalemia
CPT/HCPCS: 31500; 31720; 36415; 36600; 71045; 80048; 80053; 80202; 82803; 82962; 83036; 83605; 83735; 83880; 84484; 85025; 85610; 87040; 87070; 87205; 87449; 87633; 87635; 87641; 92526; 92610; 93005; 94002; 94003; 94640; 94660; 96374; 96375; 97110; 97116; 97162; 97166; 97530; 97535; 97803; 99251; 99285; G2023; J2185; J7030; J7040; J7050; A4216; G0463; J1940; J3490; U0002; U0004

== ENCOUNTER 2020-03-16 06:11 | Inpatient (IN) | payer MEDICARE, OTHER, SELFPAY ==
[2020-03-12 08:34] VITALS: BMI 19.1
[2020-03-16] VITALS (22 sets, daily range): BP systolic 91–152; BP diastolic 48–71; PULSE 84–129; RESP 12–26; TEMP 36.9–37.7; O2SAT 75–98; BMI 21.2
--- NOTE | 2020-03-16 06:17 | RAD_ITS ---
STUDY: X-RAY CHEST REASON FOR EXAM: Male, 84 years old. SOB TECHNIQUE: Frontal view COMPARISON: 12/09/2019 FINDINGS: The pacemaker leads are in proper position. There are bilateral lower lobe pulmonary infiltrates worse on the RIGHT. There is a small RIGHT pleural effusion. There is NO pneumothorax. Normal size heart. Normal mediastinum and rafia. Normal visualized pulmonary arteries. Normal visualized aortic arch and descending thoracic aorta. Normal visualized thoracic spine. Normal visualized ribs, clavicles, and shoulders. There is no demonstrated abnormality of the visualized soft tissue structures of the upper abdomen. RAD/Chest 1 View (Portable) IMPRESSION: The pacemaker leads are in proper position. There are bilateral lower lobe pulmonary infiltrates worse on the RIGHT. There is a small RIGHT pleural effusion. There is NO pneumothorax. Normal size heart. Electronically Signed: Cole Salas MD at 7:41 EDT , Service support ,
--- NOTE | 2020-03-16 06:17 | EKG12_ITS ---
Test Reason : SOB Blood Pressure : / mmHG Vent. Rate : 114 BPM Atrial Rate : 114 BPM P-R Int : 000 ms QRS Dur : 164 ms QT Int : 416 ms P-R-T Axes : 000 -88 086 degrees QTc Int : 573 ms Ventricular-paced rhythm Abnormal ECG Confirmed by MAXIME SARGENT ([id number]), continuity editor VON TY ([id number]) on 03/19/2020 10:32:06 AM Referred By: GRISEL Confirmed By:MAXIME SARGENT
--- NOTE | 2020-03-16 06:18 | ED.DCSUM_ITS ---
History of Present Illness Chief Complaint: Shortness of Breath Informant: Patient, EMS Onset: Days - 2-3 Timing: Continuous Quality: Wheezing Current Severity: Moderate Maximum Severity: Severe Worsened by: Coughing, Exertion Relieved by: Albuterol, Oxygen, Rest Associated Symptoms: Cough - STRUCTURAL ARCHITECT, Fever - 101 Tm. Negative for: Bloody Sputum, Rhinorrhea, Sore throat, Sweats Chest Pain: None Narrative: Patient has felt like his COPD is flaring up for the past couple days. He called his doctor, he had already been on prednisone 10 mg daily for the last couple months to try to prevent flareups, as he is also on oxygen 6 L nasal cannula at home, he was prescribed Levaquin and advised to increase his prednisone to 40 mg daily for 3 days, he has already taken 2 days of both of those medications, today was going to be the third but he has not taking the doses for day #3 yet. Overnight he had a rough time, increase his oxygen 8 L but it did not keep him from being very dyspneic at rest, so EMS was called to bring him to the emergency department for further evaluation. He feels like this is consistent with a COPD exacerbation which he has had frequently in the past. He denies any chest discomfort or swelling. He has a history of congestive heart failure and has a pacemaker. Patient presents during the national coronavirus emergency declaration/pandemic. He denies any known contact with anyone infected with COVID-19. He denies traveling out of the immediate area recently. He was tested for COVID in December during his last flareup, it was negative. He has not been tested since. - Past Medical History (1) Aortic stenosis Status: Chronic (2) Aortic valve stenosis, nonrheumatic Status: Chronic (3) Bullous emphysema Status: Chronic (4) Chronic respiratory failure Status: Chronic (5) Essential hypertension Status: Chronic (6) GERD (gastroesophageal reflux disease) Status: Chronic (7) Paroxysmal atrial flutter Status: Chronic (8) Pulmonary hypertension Status: Chronic (9) Right lower lobe lung mass Status: Chronic (10) Sleep apnea Status: Chronic (11) Stage 3 severe COPD by GOLD classification Status: Chronic Comment: FEV1 44% of predicted on PFT 12/15/2016 at [facility] Past Medical History - Allergies and Home Meds Allergies/Adverse Reactions: Allergies ampicillin Allergy (Verified 03/16/20 06:18) Anaphylaxis azithromycin Allergy (Verified 03/16/20 06:18) Rash codeine Allergy (Verified 03/16/20 06:18) Rash penicillin G Allergy (Verified 03/16/20 06:18) Rash Sulfa (Sulfonamide Antibiotics) Allergy (Verified 03/16/20 06:18) Rash sulfamethoxazole [From Bactrim] Allergy (Verified 03/16/20 06:18) Rash trimethoprim [From Bactrim] Allergy (Verified 03/16/20 06:18) Rash Primary Care Physician: Misael Valencia MD [Primary Care Provider] - Surgical History: appendectomy, cataract, pacemaker implantation Lives: Spouse/ Significant Other Smoking Status: Former smoker - Family History Paternal Family History: Family History (Last Reviewed 03/12/20 @ 09:19 by Xena Richard) Brother Diabetes Sister Diabetes Lung cancer Family History: Reports: Heart Disease - Father with history of heart disease, at age 96. Offspring Family History: Family History (Last Reviewed 03/12/20 @ 09:19 by Xena Richard) Brother Diabetes Sister Diabetes Lung cancer Family History: Reports: COPD Sibling Family History: Family History (Last Reviewed 03/12/20 @ 09:19 by Xena Richard) Brother Diabetes Sister Diabetes Lung cancer Family History: Reports: COPD, Diabetes, Heart Disease Maternal Family History: Family History (Last Reviewed 03/12/20 @ 09:19 by Xena Richard) Brother Diabetes Sister Diabetes Lung cancer Family History: Reports: Heart Disease, - - osteoporosis Review of Systems General: Reports: Fever, Malaise. Denies: Chills, Sweats Eyes: Denies: Visual changes - bilaterally, Diplopia ENT: Denies: Rhinorrhea, Sore throat Cardiovascular: Denies: Chest pain, Palpitations Respiratory: Reports: Dyspnea, Cough, Dyspnea on exertion Gastrointestinal: Denies: Abdominal pain, Nausea, Vomiting, Diarrhea, Melena, Hematochezia Genitourinary: Denies: Dysuria, Hematuria, Frequency Musculoskeletal: Denies: Myalgias, Neck pain, Back pain, Swelling, Extremity Pain Skin: Denies: Rash, Wounds Neurological: Denies: Headache, Weakness, Numbness Physical Exam Vital Signs/Narrative: Vital Signs Temp Pulse Resp BP Pulse Ox 03/16/20 06:17 98.6 F 03/16/20 06:16 95 08/11/20 06:13 99.6 F H 129 H 26 H 152/71 H 75 Inital Vital Signs reviewed: Yes General: Well nourished, Well developed, Acute Distress - Mild respiratory Head: Normocephalic, Atraumatic Eyes: Perrl, EOMI ENT: Moist mucous membranes, No rhinorrhea, TM's clear, - - Posterior oropharynx clear. Negative for: Nasal congestion Neck: Supple, Nontender, No lymphadenopathy, No JVD, - - Trachea midline Cardiovascular: Regular rate, Regular rhythm, Tachycardia, Murmur - Systolic 2/6 Respiratory: Chest nontender, Diminished - Severely, diffusely, symmetrically. Negative for: Rales, Rhonchi, Wheezing Abdomen: Soft, Nontender, Nondistended, Normal bowel sounds Back: Nontender, Normal Inspection Extremities: Nontender, No edema. Negative for: Calf Tenderness Skin: Normal color, No rash, No Trauma Neurological: Alert, Oriented x3, Cranial nerves II-XII grossly intact, Normal Strength, Normal Sensation Psychological: Normal affect, Normal Mood Diagnostic/Tx/Re-eval Chest X-Ray - ED: 1 View, Read by ED Physician, Chronic Changes - bibasilar scarring, copd/hyperexpansion Laboratory Tests 03/16/20 03/16/20 03/16/20 Range/Units 07:03 06:25 06:25 WBC 19.5 H (4.4-11.0) K/mm3 RBC 3.87 L (4.6-6.2) M/mm3 Hgb 11.7 L (13.0-16.5) g/dL Hct 36.2 L (40-54) % MCV 93.5 (80-94) fL MCH 30.2 (27.0-32.0) pg MCHC 32.3 (32-36) g/dL RDW Std Deviation 43.4 (35.1-43.9) fl RDW Coeff of Earline 12.7 (11.6-14.6) % Plt Count 218 (150-450) K/mm3 MPV 9.8 (6.2-12.0) fl Immature Gran % (Auto) 0.700 (0.0-0.9) % Neut % (Auto) 84.5 H (47-70) % Lymph % (Auto) 7.5 L (19-41) % [place] % (Auto) 7.1 (0-10) % Eos % (Auto) 0.1 (0-5) % Baso % (Auto) 0.1 (0-1) % Absolute Neuts (auto) 16.5 H (2.0-7.7) X10^3/uL Absolute Lymphs (auto) 1.47 (0.83-4.51) X10^3/uL Nucleated RBC % 0 (0-5) % Specimen Type ART Sample Site L Brach pH 7.42 (7.35-7.45) Bicarbonate Actual 31.8 H (22-26) mmol/L Total CO2 33 mmol/L Base Excess 7 H (-2 to +2) mmol/L O2 Saturation 93 L (95-99) % O2 % 6 ABG pCO2 49.1 H (35-45) mmHg ABG pO2 67 L (75-100) mmHG Mo Test Positive O2 Delivery Device Cannula Sodium 134 L (136-145) mmol/L Potassium 3.1 L (3.5-5.1) mmol/L Chloride 93 L (98-107) mmol/L Carbon Dioxide 34.0 H (21.0-32.0) mmol/L Anion Gap 7 (5-15) BUN 20 H (7-18) mg/dL Creatinine 0.82 (0.70-1.30) mg/dL Estim Creat Clear Calc 57.44 ml/min Est GFR (MDRD) Af Amer 115 (>60) mL/min Est GFR (MDRD) Non-Af 95 (>60) mL/min BUN/Creatinine Ratio 24.4 H (10-20) RATIO Glucose 139 H (74-106) mg/dL Calcium 9.8 (8.5-10.1) mg/dL Troponin I < 0.015 (<0.045) ng/mL - Rhythm Strip Rhythm Strip: Paced Rate: 115 Ectopy: None - EKG Initial EKG Interpretation: No Acute Injury Pattern, Paced Prior: Unchanged Treatment - Dyspnea: Oxygen, Albuterol, Atrovent, Steroid Repeat Evaluation: Improved - but 89% on home 6L O2 NC while sitting at rest - Medical Decision Making With aerosols, the patient is somewhat improved. I do not think he requires BiPAP given his level of required respiratory effort at rest at this time, which is not bad. He is tired and I think with his age and low pulmonary reserve he will be in need of admission. He has a significant leukocytosis but I think at least some of this is the prednisone he has been taking, I gave him Solu-Medrol here which is the third dose at high dose. Mild hypokalemia, mild prerenal azotemia noted. ABG shows no acute hypercapnia, just chronic compensated CO2 retention. 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 Plan is for admission. Covid-[address] [facility] lab and pending. ED Disposition - Plan for ED Patient: Disposition: Acute Care Hospital [facility] Diagnosis: Acute on chronic respiratory failure with hypoxia, COPD exacerbation, Hypokalemia Referrals: Misael Valencia MD [Primary Care Provider] -
[2020-03-16 06:29] LABS: Absolute Lymphocyte Count 1.47 X10^3/uL (0.83-4.51); Absolute Neutrophil Count 16.5 X10^3/uL (2.0-7.7); Basophil# 0.02 X10^3/uL; Basophil% 0.1 % (0-1); Eosinophil# 0.02 X10^3/uL; Eosinophils% 0.1 % (0-5); Hematocrit 36.2 % (40-54); Hemoglobin 11.7 g/dL (13.0-16.5); Lymphocyte # 1.47 X10^3/ul (4.0); Lymphocyte % 7.5 % (19-41); Mean Corp Hgb Conc 32.3 g/dL (32-36); Mean Corpuscular Hgb 30.2 pg (27.0-32.0); Mean Corpuscular Volume 93.5 fL (80-94); Mean Platelet Vol. 9.8 fl (6.2-12.0); Monocyte# 1.38 X10^3/uL; Monocyte% 7.1 % (0-10); NRBC Flagged by Analyzer 0 % (0-5); Neutrophil # 16.49 X10^3/uL (2.7-7.7); Neutrophil % 84.5 % (47-70); Platelet Count 218 K/mm3 (150-450); RBC Distribution Width CV 12.7 % (11.6-14.6); RBC Distribution Width SD 43.4 fl (35.1-43.9); Red Blood Count 3.87 M/mm3 (4.6-6.2); White Blood Count 19.5 K/mm3 (4.4-11.0)
[2020-03-16] MEDS: Albuterol 2.5 MG/3 ML VIAL.NEB. INHALATION (06:40)
[2020-03-16] MEDS: Ipratropium/Albuterol Sulfate 3 ML AMPUL.NEB INHALATION ×4 (06:40→19:05)
[2020-03-16 06:47] LABS: Anion Gap 7 (5-15); BUN 20 mg/dL (7-18); BUN/Creat Ratio 24.4 RATIO (10-20); Calcium,Total 9.8 mg/dL (8.5-10.1); Chloride 93 mmol/L (98-107); Creatinine, Serum 0.82 mg/dL (0.70-1.30); EST Glomerular Filtration Rate 95 mL/min (>60); Est Glom Filt Rate - Afr Amer 115 mL/min (>60); Estimated Creatinine Clearance 57.44 ml/min; Glucose 139 mg/dL (74-106); Potassium 3.1 mmol/L (3.5-5.1); Sodium Level 134 mmol/L (136-145)
[2020-03-16 07:10] LABS: Allen Test Positive; Base Excess 7 mmol/L (-2 to +2); Bicarbonate 31.8 mmol/L (22-26); Blood Gas Specimen Type ART; FI02 6; O2 Delivery Device Cannula; PO2 67 mmHG (75-100); SITE L Brach; SO2 93 % (95-99); Total Carbon Dioxide 33 mmol/L; pCO2 49.1 mmHg (35-45); pH 7.42 (7.35-7.45)
[2020-03-16] MEDS: MethylPREDNISolone 125 MG/2 ML Vial IV (07:10)
--- NOTE | 2020-03-16 07:15 | NURSING ---
MED SURG STACI COPD EXAC, HYPOXIC RESP FAILURE
--- NOTE | 2020-03-16 07:35 | ED.RN ---
dr aware of sepsis alert. o further orders at this time
--- NOTE | 2020-03-16 07:37 | NURSING ---
PCU AECOPD STACI
--- NOTE | 2020-03-16 07:48 | HP.PCM_ITS ---
History of Present Illness Date of Admission: 03/16/20 Chief Complaint: SOB The patient is a 84 year old M who has a h/o COPD Gold Class 3 and is O2 dependent at home on 6 L at baseline and BIPAP at hs presented to the ED on 03/16/2020 with worsening SOB. He states that it started on Sunday and he called his PCP. He was placed on prednisone 40 mg of prednisone and Levaquin at that time. He also reports that he had a fever of 101 at that time as well. Overnight he states that his SOB worsened and he had to increase his home O2 to 8 L n/c but was still dyspneic at rest and EMS was called. He states that he feels like his sx are similar to COPD exacerbations he has had in the past. He is currently afebrile and he states that he has not had a fever since Sunday. He has had no sick contacts and has not really been out other than to go to doctors appts. He has recently seen Dr. Mccartney (03/12/2020) and was doing well at that time. He also admits that he wears BIPAP at night but cannot remember the settings. Upon presentation, he was tachycardic but afebrile. Sats were 89% on his baseline O2 of 6 L (they were 99% on 6 L when he saw Dr. Mccartney on ). He has a leukocytosis of 19.5, but has been on steroids for 2 days. ABG shows a compensated respiratory acidosis with a pO2 of 67 and sat of 93% on 6 L n/c. Troponin is WNL and BNP is pending. COVID is pending as well. He has slight tachypnea and a very course sounding cough which, since treatment with aerosols, is looser and more productive. He does admit he is feeling better since he got to the ED. His BP is borderline low currently. Past Medical History Past Medical History (Chronic Problems): Chronic Problems (Last Reviewed 03/16/20 @ 08:[address] 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) FEV1 44% of predicted on PFT 12/15/2016 at [facility] Diastolic dysfunction (Chronic) 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) Essential hypertension (Chronic) Paroxysmal atrial flutter (Chronic) Non-rheumatic tricuspid valve insufficiency (Chronic) Aortic valve stenosis, nonrheumatic (Chronic) 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) I44.1 Chronic respiratory failure (Chronic) J96.10 Conduction disorder of the heart (Chronic) I45.9 Pulmonary hypertension (Chronic) I27.20 GERD (gastroesophageal reflux disease) (Chronic) K21.9 Bullous emphysema (Chronic) J43.9 Lung cancer (Inactive) C34.90 Allergies ampicillin Allergy (Verified 03/16/20 06:18) Anaphylaxis azithromycin Allergy (Verified 03/16/20 06:18) Rash codeine Allergy (Verified 03/16/20 06:18) Rash penicillin G Allergy (Verified 03/16/20 06:18) Rash Sulfa (Sulfonamide Antibiotics) Allergy (Verified 03/16/20 06:18) Rash sulfamethoxazole [From Bactrim] Allergy (Verified 03/16/20 06:18) Rash trimethoprim [From Bactrim] Allergy (Verified 03/16/20 06:18) Rash Home Medications: Ambulatory Orders Medication Instructions Recorded Losartan Potassium 25 mg PO DAILY #0 06/12/17 Albuterol Aerosols [Ventolin 2.5 mg INHALATION Q4H PRN PRN #90 07/17/19 Aerosols] vial.neb. Nitroglycerin (INPATIENT USE) 0.4 mg SUBLINGUAL Q5M PRN tab.subl 10/25/19 [Nitrostat] albuterol sulfate 90 mcg/actuation 2 puff INHALATION Q6H PRN #18 g 11/25/19 aerosol inhaler fluticasone fur. 100 mcg-umeclid 1 inh INHALATION DAILY #60 ea 02/04/20 62.5 mcg-vilant 25 mcg inhalat.powder levofloxacin 750 mg tablet 750 mg PO DAILY #7 tab 03/14/20 Acetaminophen [Tylenol] 650 mg PO Q6H PRN PRN 03/16/20 Amlodipine [Norvasc] 5 mg PO DAILY 03/16/20 Cholecalciferol (VIT D3) [Vitamin 1,000 unit PO DAILY 03/16/20 D] Furosemide 40 mg PO DAILY 03/16/20 Ipratropium/Albuterol Sulfate 3 ml INHALATION Q8 03/16/20 [Duoneb] Polyethylene Glycol 3350 [Miralax] 17 gm PO DAILY PRN PRN 03/16/20 Prednisone 20 mg PO DAILY 03/16/20 Surgical History: Surgical History (Last Reviewed 03/16/20 @ 08:[address] Kelsey Wallace DO) History of permanent cardiac pacemaker placement (Chronic) Z95.0 06/11/17 History of appendectomy (Inactive) Z98.890, Z90.49 Hx of cataract surgery (Inactive) Z98.49 Surgical History: appendectomy, cataract, pacemaker implantation Psychiatric History: Anxiety, Depression Lives: Spouse/ Significant Other Smoking Status: Former smoker Tobacco Use: Non-smoker - remote h/o cig and cigar use Alcohol: None Drugs: None - *Family History Paternal Family History: Family History (Last Reviewed 03/16/20 @ 08:[address] Kelsey Wallace DO) Brother Diabetes Sister Diabetes Lung cancer History Items: Heart Disease - Father with history of heart disease, at age 96. Offspring Family History: Family History (Last Reviewed 03/16/20 @ 08:[address] Kelsey Wallace DO) Brother Diabetes Sister Diabetes Lung cancer History Items: COPD Sibling Family History: Family History (Last Reviewed 03/16/20 @ 08:[address] Kelsey Wallace DO) Brother Diabetes Sister Diabetes Lung cancer History Items: COPD, Diabetes, Heart Disease Maternal Family History: Family History (Last Reviewed 03/16/20 @ 08:[address] Kelsey Wallace DO) Brother Diabetes Sister Diabetes Lung cancer History Items: Heart Disease, - - osteoporosis Review of Systems Constitutional: Reports: Fever, Weakness, Fatigue. Denies: Anorexia, Chills, Night Sweats, Malaise, Weight Change Eyes: Denies: Blurred vision, Cataracts, Conjunctivae Inflammation, Double vision, Drainage, Eyelid Inflammation, Pain, Redness, Vision Change HEENT: Reports: Difficulty Hearing, Difficulty Swallowing - occasionally. Denies: Dysphasia, Ear Pain, Head Aches, Nasal bleeding, Post Nasal Drip, Sinus Congestion, Sinus Drainage, Sore Throat, Visual Changes Cardiovascular: Denies: Chest Pain, Chest Pressure, Chest Tightness, Edema, Heaviness, Light Headedness, Orthopnea, Palpitations, Paroxysmal Noc. Dyspnea, Syncope Respiratory: Reports: Cough, Shortness of Breath, Shortness of breath at rest, Shortness of breath upon exertion, Sputum production. Denies: Hemoptysis, Pleuritic Pain, Wheezing Gastrointestinal: Denies: Abdominal Pain, Constipation, Diarrhea, Dyspepsia, Hematemesis, Hematochezia, Nausea, Melena, Vomiting Genitourinary: Denies: Dysuria, Frequency, Hematuria, Hesitancy, Incontinence, Nocturia, Retention, Urgency Musculoskeletal: Denies: Back Pain, Joint Pain, Joint stiffness, Joint swelling, Joint Tenderness, Muscle pain, Neck Pain Skin: Denies: Dryness, Jaundice, Lesions, Pruritis, Rash, Skin Changes, Wounds Neurological: Denies: Balance problems, Double vision, Change in Speech, Slurred speech, Confusion, Focal weakness, Incoordination, Numbness, Tingling, Tremor, Seizures Psychiatric: Denies: Anxiety, Depression Endocrine: Reports: Hx of Irradiation. Denies: Change in Body Habitus, Heat/ Cold Intolerance, Polydipsia, Polyuria, Hx of Thyroiditis Hematologic/ Lymphatic: Denies: Adenopathy, Anemia, Easy Bruising, Easy Bleeding, Petechiae, Purpura VTE Information - Inpt Only VTE Present on Admission: No VTE Mechan Device Prophylaxis: SCD's VTE Pharm Prophylaxis ordered?: Yes - Physical Exam Vitals/I&O's: Vital Signs Temp Pulse Resp BP Pulse Ox 99.6 F H 115 H 20 H 99/48 L 97 03/16/20 07:31 03/16/20 07:31 03/16/20 07:31 03/16/20 07:31 03/16/20 07:31 Oxygen Flow Rate (L/min) 6 Oxygen Delivery Method Nasal Cannula Weight: 59.5 kg Body Mass Index (BMI) 21.2 General: Alert, Oriented x3, Cooperative, Well developed, - - Thin elderly male sitting upright in bed. Nursing at bedside, appears comfortable but mildly tachypneic HEENT: Atraumatic, PERRLA, EOMI, Normocephalic, EAC Clear Oral: Moist Mucosa, No Gingival or Mucosal Lesions/ Ulcerations, - - poor dentition Neck: Supple, No JVD, Negative Carotid Bruits, Negative Hepatojugular Reflux, No Nodes, No Nuchal Rigidity, Trachea Midline Lungs: Diminished - severely diminished diffusely, most notible at R base Laboratory Results 03/16/20 06:25: WBC 19.5 H, RBC 3.87 L, Hgb 11.7 L, Hct 36.2 L, MCV 93.5, MCH 30.2, MCHC 32.3, RDW Std Deviation 43.4, RDW Coeff of Earline 12.7, Plt Count 218, MPV 9.8, Immature Gran % (Auto) 0.700, Neut % (Auto) 84.5 H, Lymph % (Auto) 7.5 L, [place] % (Auto) 7.1, Eos % (Auto) 0.1, Baso % (Auto) 0.1, Absolute Neuts (auto) 16.5 H, Absolute Lymphs (auto) 1.47, Nucleated RBC % 0 03/16/20 06:25: Sodium 134 L, Potassium 3.1 L, Chloride 93 L, Carbon Dioxide 34.0 H, Anion Gap 7, BUN 20 H, Creatinine 0.82, Estim Creat Clear Calc 57.44, Est GFR (MDRD) Af Amer 115, Est GFR (MDRD) Non-Af 95, BUN/Creatinine Ratio 24.4 H, Glucose 139 H, Calcium 9.8, Troponin I < 0.015 03/16/20 06:25: B-Natriuretic Peptide Pending 03/16/20 06:30: COVID-19 (SKINNY) Pending 03/16/20 07:03: Specimen Type ART, Sample Site L Brach, pH 7.42, Bicarbonate Actual 31.8 H, Total CO2 33, Base Excess 7 H, O2 Saturation 93 L, O2 % 6, ABG pCO2 49.1 H, ABG pO2 67 L, Mo Test Positive, O2 Delivery Device Cannula Assessment/Plan Acute on Chronic Hypoxic/Hypercapnic Respiratory Failure 2/2 AECOPD +/- PNA -on baseline of 5-6 L with trilogy nocturnally at baseline (23/03) -CXR with ? RLL infiltrate vs chronic scarring -check sputum cx -Azithro and CTX for now--> if no improvement may need to add anaerobic coverage but was on Levaquin at home at got worse -Check urine antigens -? 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 -home Ellipta and scheduled/prn pulm toilet -wean O2 as able to keep SpO2 > 88% -BIPAP at hs 23/03 -IS and Acapella -solumedrol 40 q 8 and then pred taper -COVID pending -check influenza and viral PCR -Pulm consulted Hypokalemia -replace with 40mEq of po K -check mag and repeat BMP in am Leukocytosis -see above -has been on steroids as well so may be demargination Elevated BMP -will hold lasix as well with borderline BP and monitor I/O Borderline Hypotension -check lactate -IVF at 75 cc/hr for a short period of time today--> d/c at 1600 -hold home antihypertensives Hyponatremia -mild at 134 -repeat in am Mild Anemia -at baseline -no s/o bleeding -monitor HTN/HFpEF-compensated/Stage 1 Diastolic Dysfunction/Mod PAH/Mod -ECHO done 09/2019 shows EF of 55%/Mod PAH/-mod per gradient and diastolic dysfunction -RVSP is 50 mmHg -hold antihypertensives for now until BP a bit better -hold Lasix -gentle hydration for low nml BP (goal MAP > 65) COPD GOLD Stage 3 -FEV1 is 44% predicted on 12/2016 -see above -at baseline on 5-6 L and Trilogy at HS -Trelegy Ellipta and rescue inhalers -follows with Dr. Mccartney Vit D Deficiency -continue home meds ? Dysphagia -has h/o strictures and ? 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 repeat CT--> will leave to pulm -was treated with XRT and has chronic scarring related H/O Mobitz type II 2nd degree AV block -has pacer -stable GERD -not on PPI at baseline DVT prophylaxis -lovenox Code status -will verify with pt Inpatient E&M: 85152 Init Hosp L3
[2020-03-16 08:23] LABS: BNP,B-Type NATRIURETIC PEPTIDE 144.3 pg/mL (0-100)
[2020-03-16] MEDS: 0.9% Normal Saline 1,000 ML 75 ML IV (11:42)
[2020-03-16] MEDS: 0.9% Saline Lock 10 ML Syringe IV (11:45)
[2020-03-16] MEDS: Enoxaparin 40 MG/0.4 ML Syringe SC (11:49)
[2020-03-16 12:52] LABS: Reflex Lactate? Y
--- NOTE | 2020-03-16 15:20 | CON.PCM_ITS ---
Reason for Consult Date of Consultation: 03/16/20 Reason for Consultation: Acute on chronic hypoxemic respiratory failure History of Present Illness: The patient is an 84-year-old male, with a history as outlined below, who presented to the emergency department on March 16 with complaints of worsening shortness of breath, cough and subjective fevers. I last saw the patient in the pulmonary medicine clinic on March 12, given his underlying history of severe COPD and chronic respiratory failure. The patient is on a stable triple therapy inhaler regimen with Trelegy Ellipta. He has a baseline supplemental oxygen requirement of 4 L/min and regularly utilizes a trilogy noninvasive ventilator in his home environment as well. The patient has a smoking history that includes 1 pack of cigarettes daily times 5 years, which was then followed by cigar consumption of 30 cigars weekly from 1962 through 2008. The patient has been on supplemental oxygen since January 2017. He has a history of non-small cell lung cancer, diagnosed through the [facility], for which he underwent radiation treatment. OUTSIDE MEDICAL RECORDS FROM [facility]: Pulmonary medicine office visit on August 29, [address] Li: Reports that patient is using Anoro daily. Also reported worsening dysphagia with concern that patient may need to be seen again by GI for potential EGD and dilation. The patient does have a history of lung cancer of the right lower lobe (T2N0M0), s/p SBRT completed 10/19/2015. Follow-up PET scan from June 2017 revealed resolution of the right lower lobe mass. CT chest from June 2018 revealed no evidence of recurrence. CT chest without contrast dated June 2018 revealed significant bilateral emphysema, stable calcified biapical scarring, most pronounced in the right apex. There was demonstration of an ill-defined region of consolidation in the right lung base with radiating bands of scar/fibrosis and associated volume loss, consistent with post radiation fibrosis. There was a stable appearing 5 mm nodule in the left lower lobe. 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 On presentation to the emergency department, the patient was noted to be febrile with a temperature of 99.6 ?F. He was also tachycardic and tachypneic. He was documented to be saturating 75% on room air. Laboratory evaluation revealed an elevated white blood cell count to 20,000. Chemistry profile was notable for a potassium of 3.1. BNP was mildly elevated to 144. Troponin was negative. Coronavirus PCR was negative. Plain film chest x-ray revealed evidence of a right lower lobe airspace opacity. The patient was subsequently placed on antimicrobials, scheduled bronchodilators and IV steroids. He was then admitted to the progressive care unit for further management. Past Medical History Past Medical History (Chronic Problems): Chronic Problems (Last Reviewed 03/16/20 @ 08:[address] 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) FEV1 44% of predicted on PFT 12/15/2016 at [facility] Diastolic dysfunction (Chronic) 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) Essential hypertension (Chronic) Paroxysmal atrial flutter (Chronic) Non-rheumatic tricuspid valve insufficiency (Chronic) Aortic valve stenosis, nonrheumatic (Chronic) 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) I44.1 Chronic respiratory failure (Chronic) J96.10 Conduction disorder of the heart (Chronic) I45.9 Pulmonary hypertension (Chronic) I27.20 GERD (gastroesophageal reflux disease) (Chronic) K21.9 Bullous emphysema (Chronic) J43.9 Lung cancer (Inactive) C34.90 Allergies ampicillin Allergy (Verified 03/16/20 06:18) Anaphylaxis azithromycin Allergy (Verified 03/16/20 06:18) Rash codeine Allergy (Verified 03/16/20 06:18) Rash penicillin G Allergy (Verified 03/16/20 06:18) Rash Sulfa (Sulfonamide Antibiotics) Allergy (Verified 03/16/20 06:18) Rash sulfamethoxazole [From Bactrim] Allergy (Verified 03/16/20 06:18) Rash trimethoprim [From Bactrim] Allergy (Verified 03/16/20 06:18) Rash Home Medications: Ambulatory Orders Medication Instructions Recorded Losartan Potassium 25 mg PO DAILY #0 06/12/17 Albuterol Aerosols [Ventolin 2.5 mg INHALATION Q4H PRN PRN #90 07/17/19 Aerosols] vial.neb. Nitroglycerin (INPATIENT USE) 0.4 mg SUBLINGUAL Q5M PRN tab.subl 10/25/19 [Nitrostat] albuterol sulfate 90 mcg/actuation 2 puff INHALATION Q6H PRN #18 g 11/25/19 aerosol inhaler levofloxacin 750 mg tablet 750 mg PO DAILY #7 tab 03/14/20 Acetaminophen [Tylenol] 650 mg PO Q6H PRN PRN 03/16/20 Amlodipine [Norvasc] 5 mg PO DAILY 03/16/20 Cholecalciferol (VIT D3) [Vitamin 1,000 unit PO DAILY 03/16/20 D] Fluticasone/Umeclidin/Vilanter 1 inhaler DAILY 03/16/20 [Trelegy Ellipta 100-62.5-25] Furosemide 40 mg PO DAILY 03/16/20 Ipratropium/Albuterol Sulfate 3 ml INHALATION Q8 03/16/20 [Duoneb] Polyethylene Glycol 3350 [Miralax] 17 gm PO DAILY PRN PRN 03/16/20 Prednisone 20 mg PO DAILY 03/16/20 Surgical History: Surgical History (Last Reviewed 03/16/20 @ 08:[address] Kelsey Wallace DO) History of permanent cardiac pacemaker placement (Chronic) Z95.0 06/11/17 History of appendectomy (Inactive) Z98.890, Z90.49 Hx of cataract surgery (Inactive) Z98.49 Surgical History: appendectomy, cataract, pacemaker implantation Psychiatric History: Anxiety, Depression Lives: Spouse/ Significant Other Smoking Status: Former smoker Tobacco Use: Non-smoker Alcohol: None Drugs: None - *Family History Paternal Family History: Family History (Last Reviewed 03/16/20 @ 08:[address] Kelsey Wallace DO) Brother Diabetes Sister Diabetes Lung cancer History Items: Heart Disease - Father with history of heart disease, at age 96. Offspring Family History: Family History (Last Reviewed 03/16/20 @ 08:[address] Kelsey Wallace DO) Brother Diabetes Sister Diabetes Lung cancer History Items: COPD Sibling Family History: Family History (Last Reviewed 03/16/20 @ 08:[address] Kelsey Wallace DO) Brother Diabetes Sister Diabetes Lung cancer History Items: COPD, Diabetes, Heart Disease Maternal Family History: Family History (Last Reviewed 03/16/20 @ 08:[address] Kelsey Wallace DO) Brother Diabetes Sister Diabetes Lung cancer History Items: Heart Disease, - - osteoporosis Review of Systems Constitutional: Reports: Chills, Fever, Fatigue Eyes: Denies: Blurred vision, Double vision HEENT: Reports: Difficulty Swallowing Cardiovascular: Denies: Chest Pain, Palpitations Respiratory: Reports: Cough, Shortness of Breath, Sputum production Gastrointestinal: Denies: Abdominal Pain, Nausea, Vomiting Genitourinary: Denies: Dysuria Musculoskeletal: Denies: Joint Pain, Joint Tenderness Skin: Denies: Rash, Wounds Neurological: Denies: Numbness, Tingling, Focal weakness Psychiatric: Denies: Anxiety, Depression, Homicidal Ideations, Suicidal Ideations Hematologic/ Lymphatic: Denies: Easy Bruising, Easy Bleeding Objective: The patient's most recent lab work, culture data and imaging studies have all been personally reviewed. - Physical Exam Vitals/I&O's: Vital Signs Temp Pulse Resp BP Pulse Ox 99.2 F H 105 H 22 H 127/59 H 96 03/16/20 10:36 03/16/20 15:06 03/16/20 15:06 03/16/20 10:36 03/16/20 11:30 Oxygen Flow Rate (L/min) 6 Oxygen Delivery Method Nasal Cannula Weight: 124 lb 9.6 oz Body Mass Index (BMI) 20.0 Intake and Output for Last 24 Hours 03/14/20 03/15/20 03/16/20 23:59 23:59 23:59 Intake Total 495 / 495 Balance 495 / 495 General: Alert, Cooperative, - - Currently finishing an aerosol treatment. HEENT: Atraumatic, Normocephalic Oral: Moist Mucosa, No Gingival or Mucosal Lesions/ Ulcerations Neck: Supple, No Nodes, Trachea Midline Lungs: Diminished, Tachypneic, Wheezes, - - Moist cough present Cardiovascular: Regular rate, Regular Rhythm, Normal S1, Normal S2, Murmur Abdomen: Bowel Sounds Present, Soft, Non Tender Extremities: No clubbing, No cyanosis, No edema Skin: No breakdown Musculoskeletal: No Tenderness to Palpation of Joints or Extremities Lymphatic: No Cervical, Supraclavicular, or Inguinal Adenopathy Neurological: Cranial nerves II-XII grossly intact, Neuro grossly intact Psych/Mental Status: Normal Affect, Appropriate Labs (Last 48 Hours) 03/16/20 03/16/20 03/16/20 06:25 06:25 06:25 WBC 19.5 H RBC 3.87 L Hgb 11.7 L Hct 36.2 L MCV 93.5 MCH 30.2 MCHC 32.3 RDW Std Deviation 43.4 RDW Coeff of Earline 12.7 Plt Count 218 MPV 9.8 Immature Gran % (Auto) 0.700 Neut % (Auto) 84.5 H Lymph % (Auto) 7.5 L Moffat % (Auto) 7.1 Eos % (Auto) 0.1 Baso % (Auto) 0.1 Absolute Neuts (auto) 16.5 H Absolute Lymphs (auto) 1.47 Nucleated RBC % 0 Specimen Type Sample Site pH Bicarbonate Actual Total CO2 Base Excess O2 Saturation O2 % ABG pCO2 ABG pO2 Mo Test O2 Delivery Device Sodium 134 L Potassium 3.1 L Chloride 93 L Carbon Dioxide 34.0 H Anion Gap 7 BUN 20 H Creatinine 0.82 Estim Creat Clear Calc 57.44 Est GFR (MDRD) Af Amer 115 Est GFR (MDRD) Non-Af 95 BUN/Creatinine Ratio 24.4 H Glucose 139 H Lactic Acid Calcium 9.8 Troponin I < 0.015 B-Natriuretic Peptide 144.3 H COVID-19 (SKINNY) 03/16/20 03/16/20 03/16/20 06:30 07:03 08:45 WBC RBC Hgb Hct MCV MCH MCHC RDW Std Deviation RDW Coeff of Earline Plt Count MPV Immature Gran % (Auto) Neut % (Auto) Lymph % (Auto) Moffat % (Auto) Eos % (Auto) Baso % (Auto) Absolute Neuts (auto) Absolute Lymphs (auto) Nucleated RBC % Specimen Type ART Sample Site L Brach pH 7.42 Bicarbonate Actual 31.8 H Total CO2 33 Base Excess 7 H O2 Saturation 93 L O2 % 6 ABG pCO2 49.1 H ABG pO2 67 L Mo Test Positive O2 Delivery Device Cannula Sodium Potassium Chloride Carbon Dioxide Anion Gap BUN Creatinine Estim Creat Clear Calc Est GFR (MDRD) Af Amer Est GFR (MDRD) Non-Af BUN/Creatinine Ratio Glucose Lactic Acid 2.0 Calcium Troponin I B-Natriuretic Peptide COVID-19 (SKINNY) Not Detected 03/16/20 13:09 WBC RBC Hgb Hct MCV MCH MCHC RDW Std Deviation RDW Coeff of Earline Plt Count MPV Immature Gran % (Auto) Neut % (Auto) Lymph % (Auto) Moffat % (Auto) Eos % (Auto) Baso % (Auto) Absolute Neuts (auto) Absolute Lymphs (auto) Nucleated RBC % Specimen Type Sample Site pH Bicarbonate Actual Total CO2 Base Excess O2 Saturation O2 % ABG pCO2 ABG pO2 Mo Test O2 Delivery Device Sodium Potassium Chloride Carbon Dioxide Anion Gap BUN Creatinine Estim Creat Clear Calc Est GFR (MDRD) Af Amer Est GFR (MDRD) Non-Af BUN/Creatinine Ratio Glucose Lactic Acid 2.0 Calcium Troponin I B-Natriuretic Peptide COVID-19 (SKINNY) Microbiology 03/16/20 11:25 Mucosa - Nose Influenza Types A,B Direct FA (STEVE) - Final Clinical Impression(s) from Imaging Studies Chest X-Ray 03/16/20 06:17 IMPRESSION: The pacemaker leads are in proper position. There are bilateral lower lobe pulmonary infiltrates worse on the RIGHT. There is a small RIGHT pleural effusion. There is NO pneumothorax. Normal size heart. Electronically Signed: Cole Salas MD at 7:41 EDT , Service support , Current Medications Acetaminophen (Tylenol) 650 mg PO Q6H PRN PRN PRN Reason: Pain Score 1-10/Temp > 100.7 F Albuterol Sulfate (Ventolin Aerosols) 2.5 mg INHALATION Q2H PRN PRN PRN Reason: SHORTNESS OF BREATH Albuterol/Ipratropium (Duoneb) 3 ml INHALATION Q4H.RT WEI Last Admin: 03/16/20 15:05 Dose: 3 ml Documented by: Bisacodyl (Dulcolax) 5 mg PO DAILY PRN PRN PRN Reason: Constipation Cholecalciferol (Vitamin D (25mcg)) 1,000 unit PO DAILY [facility] Last Admin: 03/16/20 14:12 Dose: 1,000 unit Documented by: Enoxaparin Sodium (Lovenox) 40 mg SC DAILY [facility] Last Admin: 03/16/20 11:49 Dose: 40 mg Documented by: Guaifenesin (Robitussin) 20 ml PO Q4H PRN PRN PRN Reason: COUGH Sodium Chloride () 1,000 mls @ 75 mls/hr IV .[id number] [facility] Stop: 03/16/20 16:00 Last Admin: 03/16/20 11:42 Dose: 75 mls/hr Documented by: Azithromycin 500 mg/ Dextrose 255 mls @ 250 mls/hr IV Q24 [facility] Stop: 03/18/20 11:02 Last Infusion: 03/16/20 14:48 Dose: Infused Documented by: Meropenem 1 gm/ Sodium (Chloride) 100 mls @ 33 mls/hr IV Q8 [facility] Last Admin: 03/16/20 14:12 Dose: 33 mls/hr Documented by: Methylprednisolone (Solu-Medrol) 40 mg IV Q8 [facility] Stop: 03/16/20 22:01 Last Admin: 03/16/20 14:12 Dose: 40 mg Documented by: Ondansetron HCl (Zofran) 4 mg IV Q8H PRN PRN PRN Reason: NAUSEA/VOMITING Polyethylene Glycol (Miralax) 17 gm PO DAILY PRN PRN PRN Reason: Constipation Prednisone () 40 mg PO DAILY@0800 [facility] Sodium Chloride () 10 - 40 ml IV UD PRN PRN Reason: SALINE FLUSH Last Admin: 03/16/20 11:45 Dose: 10 ml Documented by: Assessment/Plan RECOMMENDATIONS: 1. Agree with continuing empiric antimicrobials, scheduled bronchodilators and IV steroids. 2. Await results of sputum culture. 3. Check respiratory viral panel. 4. Wean supplemental oxygen to maintain saturations at or above 90%. 5. Speech therapy evaluation. 6. Continue BiPAP or AVAPS, as the patient utilizes a trilogy noninvasive ventilator at his baseline. IMPRESSIONS: 1. Acute on chronic hypoxemic respiratory failure Appears to be secondary to possible right lower lobe pneumonia. Agree with continuing empiric antimicrobials, pending further infectious work-up. Continue scheduled bronchodilators along with IV steroids for now. The patient does have a baseline 4 L/min oxygen requirement and regularly utilizes a trilogy noninvasive ventilator in his home environment. Recommend weaning supplemental oxygen as tolerated to maintain saturations at or above 90%. BiPAP or AVAPS can be utilized on a nightly basis. Recommend obtaining a respiratory viral panel as well. 2. Hypokalemia Electrolyte repletion as ordered. Recheck levels in the morning. 2. History of aortic stenosis/second-degree AV block/paroxysmal atrial fibrillation/pulmonary hypertension Complicates care, management, recovery and prognosis. Lasix and antihypertensives remain on hold due to tenuous hemodynamics. This note was generated with [employer] dictation software. It may contain incorrect words, spelling, and punctuation that were not noted in checking the note before signing. Inpatient E&M: 61737 Init Hosp L3
[2020-03-16] MEDS: Acetaminophen 325 MG Tablet 650 MG PO (21:01)
[2020-03-17] VITALS (20 sets, daily range): BP systolic 93–152; BP diastolic 46–84; PULSE 58–120; RESP 12–30; TEMP 36.4–37.3; O2SAT 95–100
[2020-03-17] MEDS: Ipratropium/Albuterol Sulfate 3 ML AMPUL.NEB INHALATION ×4 (03:46→22:38)
[2020-03-17 05:57] LABS: Absolute Lymphocyte Count 0.35 X10^3/uL (0.83-4.51); Absolute Neutrophil Count 6.4 X10^3/uL (2.0-7.7); Basophil# 0.01 X10^3/uL; Basophil% 0.1 % (0-1); Hematocrit 29.7 % (40-54); Hemoglobin 9.2 g/dL (13.0-16.5); Lymphocyte # 0.35 X10^3/ul (4.0); Lymphocyte % 4.8 % (19-41); Mean Corpuscular Hgb 29.5 pg (27.0-32.0); Mean Corpuscular Volume 95.2 fL (80-94); Monocyte# 0.42 X10^3/uL; Monocyte% 5.8 % (0-10); NRBC Flagged by Analyzer 0 % (0-5); Neutrophil # 6.39 X10^3/uL (2.7-7.7); Neutrophil % 88.5 % (47-70); POSITIVE DIFFERENTIAL YES; POSITIVE MORPHOLOGY YES; Platelet Count 184 K/mm3 (150-450); RBC Distribution Width CV 12.7 % (11.6-14.6); RBC Distribution Width SD 43.8 fl (35.1-43.9); Red Blood Count 3.12 M/mm3 (4.6-6.2); White Blood Count 7.2 K/mm3 (4.4-11.0)
[2020-03-17 06:20] LABS: Differential Indicated SCAN CRITERIA MET
[2020-03-17 06:39] LABS: ALB/GLOB Ratio 0.8 RATIO (0.9-2.4); AST(SGOT) 16 U/L (15-37); Alanine Aminotransfer ALT/SGPT 34 U/L (16-61); Albumin, Serum 2.7 g/dL (3.2-5.0); Alkaline Phosphatase 67 U/L (45-117); Anion Gap -1 (5-15); BUN 19 mg/dL (7-18); BUN/Creat Ratio 31.5 RATIO (10-20); Calcium,Total 8.9 mg/dL (8.5-10.1); Chloride 101 mmol/L (98-107); EST Glomerular Filtration Rate 136 mL/min (>60); Est Glom Filt Rate - Afr Amer 164 mL/min (>60); Estimated Creatinine Clearance 46.39 ml/min; Globulin 3.5 g/dL (2.2-4.2); Glucose 174 mg/dL (74-106); Magnesium 2.6 mg/dL (1.6-2.6); Potassium 4.3 mmol/L (3.5-5.1); Protein, Total 6.2 g/dL (6.4-8.2); Sodium Level 136 mmol/L (136-145)
[2020-03-17 07:15] LABS: Differential Comment SCANNED
[2020-03-17] MEDS: predniSONE 20 MG Tablet 40 MG PO (10:10)
[2020-03-17] MEDS: Enoxaparin 40 MG/0.4 ML Syringe SC (10:16)
--- NOTE | 2020-03-17 11:00 | CASEMGMT ---
RN [employer] MA[employer] CM to room to meet with patient for initial transition planning/care coordination assessment. FLORINDA GABRIEL introduced self and role at [facility]. Pt voices understanding and consents to assessment at this time. Pt resting in bed in no distress at this time. @ bedside. Pt is A/O at this time and answers all questions appropriately. Care providers, pharmacy, and demographics verified/updated at this time. PCP: Dr Valencia. Specialists: Dr Alan--cardiology, Dr Powers--pulmonology Preferred Pharmacy: [facility] Retail Insurance: MCR A, B, AARP Prescription Benefit: Yes LNOK: , [place]. 4 adult children. Living will/HPOA. Pt does not currently have LW/HCPOA and declines info at this time. Pt/ made aware that they can contact SW as an out-pt and make appt in the future if theyt decides he would like to talk with someone about this or would like to utilize [facility] social work for advanced directive completion. Given [employer] card with information and contact number. They express understanding. Living Arrangements: Lives with in one-story home w/2 steps to enter. Pt is mostly independent w/ADL's, however if assist is needed, can help. assists w/washing pt's back and feet, but otherwise, pt has been able to perform all other ADL's. manages home tasks. Transportation: drives and denies transportation concerns. DME: Has the following DME: cane, walker, side rails for toilet, grab bars in shower. -Oxygen through [facility]. states pt has been using 5-6 L NC daily and can go up to 7 L/M w/activity. Has concentrator and portability. states she can bring in portable O2 tank for pt to go home on. Has Trilogy at home. They state no need for further DME at this time. HHC/SNF: Hx of [facility] and TCU. Hx [facility] HHC and OP therapy @ [place]. Pt/ wish for pt to return home @ discharge. Discussed discharge options @ home including HHC, CCN, and OP therapy. Pt/ decline all of these options, stating pt has been doing well @ home and they are continuing to try and limit the number of people coming into the home with the COVID pandemic. They were made aware, if in the future, they feel pt would like/would benefit from HHC, CCN, or OP therapy, to talk with pt's PCP. They voice understanding. CM to follow for any discharge planning/needs. Pt/ voice no concerns/needs at this time. Advised [facility] to ask for CM if any questions/concerns/needs arise. They voice understanding. PLAN: Home Corrie CRAWFORD RN CM
--- NOTE | 2020-03-17 12:59 | EKG12_ITS ---
Test Reason : TACHY Blood Pressure : / mmHG Vent. Rate : 116 BPM Atrial Rate : 150 BPM P-R Int : 000 ms QRS Dur : 146 ms QT Int : 304 ms P-R-T Axes : 000 270 082 degrees QTc Int : 422 ms Ventricular-paced rhythm with premature ventricular or aberrantly conducted complexes Abnormal ECG When compared with ECG of 16-MAR-2020 06:38, MANUAL COMPARISON REQUIRED, DATA IS UNCONFIRMED Confirmed by MAXIME SARGENT ([id number]), graphics editor ADDIS VALENCIA ([id number]) on 03/22/2020 2:24:38 PM Referred By: AC Confirmed By:MAXIME SARGENT
--- NOTE | 2020-03-17 13:45 | PCM.PN.PUL ---
Subjective: The patient was seen and examined at the bedside this morning. Events from the last 24 hours have been reviewed. The patient is currently afebrile, hemodynamically stable and maintaining appropriate oxygen saturations on BiPAP. Previously, the patient was on 5 L/min via nasal cannula. He reported that shortly after eating lunch she developed worsening shortness of breath. He was subsequently placed back on BiPAP therapy. He does report having completed his swallow evaluation today. Objective: The patient's most recent lab work, culture data and imaging studies have all been personally reviewed. Strep and urine Legionella antigens were negative. Respiratory viral panel was negative. Preliminary sputum culture appears to be normal respiratory james. - Physical Exam Vitals/I&O's: Vital Signs Temp Pulse Resp BP Pulse Ox 98.5 F 66 20 H 152/70 H 98 03/17/20 12:45 03/17/20 12:45 03/17/20 12:45 03/17/20 12:45 03/17/20 12:45 Oxygen Flow Rate (L/min) 5 Oxygen Delivery Method Nasal Cannula Weight: 129 lb 3.054 oz Body Mass Index (BMI) 20.0 Intake and Output for Last 24 Hours 03/15/20 03/16/20 03/17/20 23:59 23:59 23:59 Intake Total 835 / 835 2116.25 / 2116.25 Output Total 300 / 300 625 / 625 Balance 535 / 535 1491.25 / 1491.25 General: Alert, Cooperative, - - BiPAP mask currently in place. is present at the bedside. HEENT: Atraumatic, Normocephalic Oral: Moist Mucosa Neck: Supple, No Nodes, Trachea Midline Lungs: Diminished, Short of Breath, Tachypneic Cardiovascular: Regular rate, Regular Rhythm, Murmur Abdomen: Bowel Sounds Present, Soft, Non Tender Extremities: No clubbing, No cyanosis, No edema Skin: No breakdown Musculoskeletal: No Tenderness to Palpation of Joints or Extremities Lymphatic: No Cervical, Supraclavicular, or Inguinal Adenopathy Neurological: Cranial nerves II-XII grossly intact, Neuro grossly intact Psych/Mental Status: Normal Affect, Appropriate Labs (Last 48 Hours) 03/16/20 03/16/20 03/16/20 06:25 06:25 06:25 WBC 19.5 H RBC 3.87 L Hgb 11.7 L Hct 36.2 L MCV 93.5 MCH 30.2 MCHC 32.3 RDW Std Deviation 43.4 RDW Coeff of Earline 12.7 Plt Count 218 MPV 9.8 Immature Gran % (Auto) 0.700 Neut % (Auto) 84.5 H Lymph % (Auto) 7.5 L [place] % (Auto) 7.1 Eos % (Auto) 0.1 Baso % (Auto) 0.1 Absolute Neuts (auto) 16.5 H Absolute Lymphs (auto) 1.47 Nucleated RBC % 0 Differential Comment Specimen Type Sample Site pH Bicarbonate Actual Total CO2 Base Excess O2 Saturation O2 % ABG pCO2 ABG pO2 Mo Test O2 Delivery Device Sodium 134 L Potassium 3.1 L Chloride 93 L Carbon Dioxide 34.0 H Anion Gap 7 BUN 20 H Creatinine 0.82 Estim Creat Clear Calc 57.44 Est GFR (MDRD) Af Amer 115 Est GFR (MDRD) Non-Af 95 BUN/Creatinine Ratio 24.4 H Glucose 139 H Lactic Acid Calcium 9.8 Magnesium Total Bilirubin AST ALT Alkaline Phosphatase Troponin I < 0.015 B-Natriuretic Peptide 144.3 H Total Protein Albumin Globulin Albumin/Globulin Ratio COVID-19 (SKINNY) 03/16/20 03/16/20 03/16/20 06:30 07:03 08:45 WBC RBC Hgb Hct MCV MCH MCHC RDW Std Deviation RDW Coeff of Earline Plt Count MPV Immature Gran % (Auto) Neut % (Auto) Lymph % (Auto) [place] % (Auto) Eos % (Auto) Baso % (Auto) Absolute Neuts (auto) Absolute Lymphs (auto) Nucleated RBC % Differential Comment Specimen Type ART Sample Site L Brach pH 7.42 Bicarbonate Actual 31.8 H Total CO2 33 Base Excess 7 H O2 Saturation 93 L O2 % 6 ABG pCO2 49.1 H ABG pO2 67 L Mo Test Positive O2 Delivery Device Cannula Sodium Potassium Chloride Carbon Dioxide Anion Gap BUN Creatinine Estim Creat Clear Calc Est GFR (MDRD) Af Amer Est GFR (MDRD) Non-Af BUN/Creatinine Ratio Glucose Lactic Acid 2.0 Calcium Magnesium Total Bilirubin AST ALT Alkaline Phosphatase Troponin I B-Natriuretic Peptide Total Protein Albumin Globulin Albumin/Globulin Ratio COVID-19 (SKINNY) Not Detected 03/16/20 03/17/20 03/17/20 13:09 05:32 05:32 WBC 7.2 RBC 3.12 L Hgb 9.2 L Hct 29.7 L MCV 95.2 H MCH 29.5 MCHC 31.0 L RDW Std Deviation 43.8 RDW Coeff of Earline 12.7 Plt Count 184 MPV 10.0 Immature Gran % (Auto) 0.800 Neut % (Auto) 88.5 H Lymph % (Auto) 4.8 L [place] % (Auto) 5.8 Eos % (Auto) 0.0 Baso % (Auto) 0.1 Absolute Neuts (auto) 6.4 Absolute Lymphs (auto) 0.35 L Nucleated RBC % 0 Differential Comment SCANNED Specimen Type Sample Site pH Bicarbonate Actual Total CO2 Base Excess O2 Saturation O2 % ABG pCO2 ABG pO2 Mo Test O2 Delivery Device Sodium 136 Potassium 4.3 Chloride 101 Carbon Dioxide 36.0 H Anion Gap -1 L BUN 19 H Creatinine 0.60 L Estim Creat Clear Calc 46.39 Est GFR (MDRD) Af Amer 164 Est GFR (MDRD) Non-Af 136 BUN/Creatinine Ratio 31.5 H Glucose 174 H Lactic Acid 2.0 Calcium 8.9 Magnesium 2.6 Total Bilirubin 0.30 AST 16 ALT 34 Alkaline Phosphatase 67 Troponin I B-Natriuretic Peptide Total Protein 6.2 L Albumin 2.7 L Globulin 3.5 Albumin/Globulin Ratio 0.8 L COVID-19 (SKINNY) Microbiology 03/16/20 10:00 Sputum, Expectorated/Coughed Gram Stain - Final 03/16/20 10:00 Sputum, Expectorated/Coughed Respiratory Culture - Preliminary Appears to be normal respiratory james. Further studies to follow. 03/17/20 06:35 Urine, Clean Catch Streptococcus pneumoniae Antigen (M - Final 03/17/20 06:35 Urine, Clean Catch Legionella Antigen - Final 03/16/20 15:20 Mucosa - Nasopharyngeal Respiratory Panel (PCR) - Final 03/16/20 11:25 Mucosa - Nose Influenza Types A,B Direct FA (STEVE) - Final Clinical Impression(s) from Imaging Studies Chest X-Ray 03/16/20 06:17 IMPRESSION: The pacemaker leads are in proper position. There are bilateral lower lobe pulmonary infiltrates worse on the RIGHT. There is a small RIGHT pleural effusion. There is NO pneumothorax. Normal size heart. Electronically Signed: Cole Salas MD at 7:41 EDT , Service support , Current Medications Acetaminophen (Tylenol) 650 mg PO Q6H PRN PRN PRN Reason: Pain Score 1-10/Temp > 100.7 F Last Admin: 03/16/20 21:01 Dose: 650 mg Documented by: Albuterol Sulfate (Ventolin Aerosols) 2.5 mg INHALATION Q2H PRN PRN PRN Reason: SHORTNESS OF BREATH Albuterol/Ipratropium (Duoneb) 3 ml INHALATION Q4H.RT [facility] Last Admin: 03/17/20 11:11 Dose: 3 ml Documented by: Bisacodyl (Dulcolax) 5 mg PO DAILY PRN PRN PRN Reason: Constipation Cholecalciferol (Vitamin D (25mcg)) 1,000 unit PO DAILY [facility] Last Admin: 03/17/20 10:10 Dose: 1,000 unit Documented by: Enoxaparin Sodium (Lovenox) 40 mg SC DAILY [facility] Last Admin: 03/17/20 10:16 Dose: 40 mg Documented by: Guaifenesin (Robitussin) 20 ml PO Q4H PRN PRN PRN Reason: COUGH Azithromycin 500 mg/ Dextrose 255 mls @ 250 mls/hr IV Q24 [facility] Stop: 03/18/20 11:02 Last Infusion: 03/17/20 12:25 Dose: Infused Documented by: Meropenem 1 gm/ Sodium (Chloride) 100 mls @ 33 mls/hr IV Q8 [facility] Last Infusion: 03/17/20 09:53 Dose: Infused Documented by: Ondansetron HCl (Zofran) 4 mg IV Q8H PRN PRN PRN Reason: NAUSEA/VOMITING Polyethylene Glycol (Miralax) 17 gm PO DAILY PRN PRN PRN Reason: Constipation Prednisone () 40 mg PO DAILY@0800 [facility] Last Admin: 03/17/20 10:10 Dose: 40 mg Documented by: Sodium Chloride () 10 - 40 ml IV UD PRN PRN Reason: SALINE FLUSH Last Admin: 03/16/20 11:45 Dose: 10 ml Documented by: Medical Necessity - Tobacco Use Smoking Status: Former smoker Tobacco Use: Non-smoker Assessment/Plan RECOMMENDATIONS: 1. Continue empiric antimicrobials, scheduled bronchodilators and IV steroids. 2. Continue BiPAP therapy as needed. 3. Wean supplemental oxygen to maintain saturations at or above 90%. 4. Await modified barium swallow results. 5. Given respiratory decompensation following lunch, recommend n.p.o. status. IMPRESSIONS: 1. Acute on chronic hypoxemic respiratory failure Appears to be secondary to possible right lower lobe pneumonia. Agree with continuing empiric antimicrobials, pending further infectious work-up. Continue scheduled bronchodilators along with IV steroids for now. The patient does have a baseline 4 L/min oxygen requirement and regularly utilizes a trilogy noninvasive ventilator in his home environment. Recommend weaning supplemental oxygen as tolerated to maintain saturations at or above 90%. BiPAP or AVAPS can be utilized on a nightly basis. Recommend making patient n.p.o. until further evaluation by speech therapy. Results of modified barium swallow are pending. 2. History of aortic stenosis/second-degree AV block/paroxysmal atrial fibrillation/pulmonary hypertension Complicates care, management, recovery and prognosis. Lasix and antihypertensives remain on hold due to tenuous hemodynamics. This note was generated with Plum dictation software. It may contain incorrect words, spelling, and punctuation that were not noted in checking the note before signing. Inpatient E&M: [id number] [facility] Hosp L3
--- NOTE | 2020-03-17 13:51 | RAD_ITS ---
STUDY: X-RAY CHEST REASON FOR EXAM: Male, 84 years old. reps distress TECHNIQUE: Single AP portable view of the chest. COMPARISON: Comparison is made with prior study dated 03/16/2020. FINDINGS: Since prior study, there has been progressive infiltration in the lower lobes worse on the right side superimposed on the mild degree of vascular congestion. Blunting of both costophrenic angles. Normal size heart. A left-sided dual-chamber pacemaker is seen. Normal mediastinum and rafia. Normal visualized pulmonary arteries. There is atherosclerotic calcification of the aortic arch with tortuosity. There are diffuse degenerative changes of the visualized thoracic spine. Normal visualized ribs, clavicles, and shoulders. There is no demonstrated abnormality of the visualized soft tissue structures of the upper abdomen. RAD/Chest 1 View (Portable) IMPRESSION: Progressive infiltration in the lower lobes worse on the right side with small bilateral pleural effusions. Electronically Signed: Caleb Hartman, at 15:22 EDT , Service support ,
[2020-03-17] MEDS: Furosemide 40 MG/4 ML Vial IV (14:00)
[2020-03-17] MEDS: 0.9% Saline Lock 10 ML Syringe IV ×3 (14:00→21:42)
--- NOTE | 2020-03-17 17:46 | PCM.PN.HOSP ---
Subjective: Pt was doing better and on baseline O2 earlier but became SOB after eating lunch. Remains on NIV but states feeling better with diuresis. [facility] [place] Vitals/I&O's: Vital Signs Temp Pulse Resp BP Pulse Ox 98.2 F 116 H 20 H 93/62 100 03/17/20 17:15 03/17/20 17:15 03/17/20 17:15 03/17/20 17:15 03/17/20 17:15 Oxygen Flow Rate (L/min) 5 Oxygen Delivery Method Bi-pap Weight: 58.6 kg Body Mass Index (BMI) 20.0 Intake and Output for Last 24 Hours 03/15/20 03/16/20 03/17/20 23:59 23:59 23:59 Intake Total 835 / 835 2456.25 / 2456.25 Output Total 300 / 300 925 / 925 Balance 535 / 535 1531.25 / 1531.25 General: Alert, Oriented x3, Cooperative, Well developed, Well nourished, - - Elderly WM with mild resp distress but improving on NIV, at bedside HEENT: Atraumatic, PERRLA, EOMI, Normocephalic Oral: Moist Mucosa, No Gingival or Mucosal Lesions/ Ulcerations, - - no thrush, poor dentition Neck: Supple, No Nodes, No Nuchal Rigidity, Trachea Midline, Thyroid Normal Size and Texture, JVD, Bilateral Lungs: No rhonchi, No wheeze, No rales, Diminished - severely diminished diffusely, - - no current accessory mm use Cardiovascular: Regular Rhythm, Normal S1, Normal S2, No murmurs, No Ectopic Activity, No rub noted, No Gallop, Tachycardic Abdomen: Bowel Sounds Present, Soft, Non Tender, Non-Distended, No Hepato-splenomegaly Extremities: No cyanosis, No edema, Capillary Refill Less than 3 Seconds, Clubbing - mild, Peripheral Pulses Normal Skin: No rashes, No breakdown, - - pale thin skin Musculoskeletal: No Tenderness to Palpation of Joints or Extremities, No Muscle Wasting, Arthritic Changes Lymphatic: No Cervical, Supraclavicular, or Inguinal Adenopathy Neurological: Cranial nerves II-XII grossly intact, Neuro grossly intact, Coordination normal Psych/Mental Status: Normal Affect, Appropriate, Alert and oriented to time, place, person, mood and affect Microbiology Past 72 Hours 03/16/20 10:00 Sputum, Expectorated/Coughed Gram Stain - Final 03/16/20 10:00 Sputum, Expectorated/Coughed Respiratory Culture - Preliminary Appears to be normal respiratory james. Further studies to follow. 03/17/20 06:35 Urine, Clean Catch Streptococcus pneumoniae Antigen (M - Final 03/17/20 06:35 Urine, Clean Catch Legionella Antigen - Final 03/16/20 15:20 Mucosa - Nasopharyngeal Respiratory Panel (PCR) - Final 03/16/20 11:25 Mucosa - Nose Influenza Types A,B Direct FA (STEVE) - Final Laboratory Results 03/17/20 05:32: WBC 7.2, RBC 3.12 L, Hgb 9.2 L, Hct 29.7 L, MCV 95.2 H, MCH 29.5, MCHC 31.0 L, RDW Std Deviation 43.8, RDW Coeff of Earline 12.7, Plt Count 184, MPV 10.0, Immature Gran % (Auto) 0.800, Neut % (Auto) 88.5 H, Lymph % (Auto) 4.8 L, [place] % (Auto) 5.8, Eos % (Auto) 0.0, Baso % (Auto) 0.1, Absolute Neuts (auto) 6.4, Absolute Lymphs (auto) 0.35 L, Nucleated RBC % 0, Differential Comment SCANNED 03/17/20 05:32: Sodium 136, Potassium 4.3, Chloride 101, Carbon Dioxide 36.0 H, Anion Gap -1 L, BUN 19 H, Creatinine 0.60 L, Estim Creat Clear Calc 46.39, Est GFR (MDRD) Af Amer 164, Est GFR (MDRD) Non-Af 136, BUN/Creatinine Ratio 31.5 H, Glucose 174 H, Calcium 8.9, Magnesium 2.6, Total Bilirubin 0.30, AST 16, ALT 34, Alkaline Phosphatase 67, Total Protein 6.2 L, Albumin 2.7 L, Globulin 3.5, Albumin/Globulin Ratio 0.8 L Current Medications Acetaminophen (Tylenol) 650 mg PO Q6H PRN PRN PRN Reason: Pain Score 1-10/Temp > 100.7 F Last Admin: 03/16/20 21:01 Dose: 650 mg Documented by: Albuterol Sulfate (Ventolin Aerosols) 2.5 mg INHALATION Q2H PRN PRN PRN Reason: SHORTNESS OF BREATH Albuterol/Ipratropium (Duoneb) 3 ml INHALATION Q4H.RT [facility] Last Admin: 03/17/20 14:44 Dose: Not Given Documented by: Bisacodyl (Dulcolax) 5 mg PO DAILY PRN PRN PRN Reason: Constipation Cholecalciferol (Vitamin D (25mcg)) 1,000 unit PO DAILY [facility] Last Admin: 03/17/20 10:10 Dose: 1,000 unit Documented by: Enoxaparin Sodium (Lovenox) 40 mg SC DAILY [facility] Last Admin: 03/17/20 10:16 Dose: 40 mg Documented by: Furosemide (Lasix) 40 mg PO DAILY [facility] Guaifenesin (Robitussin) 20 ml PO Q4H PRN PRN PRN Reason: COUGH Azithromycin 500 mg/ Dextrose 255 mls @ 250 mls/hr IV Q24 [facility] Stop: 03/18/20 11:02 Last Infusion: 03/17/20 12:25 Dose: Infused Documented by: Meropenem 1 gm/ Sodium (Chloride) 100 mls @ 33 mls/hr IV Q8 [facility] Last Infusion: 03/17/20 17:06 Dose: Infused Documented by: Ondansetron HCl (Zofran) 4 mg IV Q8H PRN PRN PRN Reason: NAUSEA/VOMITING Polyethylene Glycol (Miralax) 17 gm PO DAILY PRN PRN PRN Reason: Constipation Prednisone () 40 mg PO DAILY@0800 [facility] Last Admin: 03/17/20 10:10 Dose: 40 mg Documented by: Sodium Chloride () 10 - 40 ml IV UD PRN PRN Reason: SALINE FLUSH Last Admin: 03/17/20 14:00 Dose: 10 ml Documented by: STROKE Vital Signs/Narrative: Vital Signs Temp Pulse Resp BP Pulse Ox 03/17/20 17:15 98.2 F 116 H 20 H 93/62 100 03/17/20 15:00 120 H Medical Necessity - Tobacco Use Smoking Status: Former smoker Tobacco Use: Non-smoker Assessment/Plan Acute on Chronic Hypoxic/Hypercapnic Respiratory Failure 2/2 AECOPD +/- PNA -on baseline of 5-6 L with trilogy nocturnally at baseline (23/03) -CXR with ? RLL infiltrate vs chronic scarring--> looks worse when compared -sputum cx prelim is resp james -Azithro and CTX for now--> if no improvement may need to add anaerobic coverage but was on Levaquin at home at got worse -urine antigens are negative -with event today after eating will make NPO--> MBS done today and is pending -lasix 40 IVP today and restart home dose of 40 po tomorrow -home Ellipta and scheduled/prn pulm toilet -wean O2 as able to keep SpO2 > 88% -BIPAP at prn and hs 18/8 -IS and Acapella -solumedrol 40 q 8 and then pred taper -COVID negative -check Viral PCR neg -Pulm following Hypokalemia -resolved Tachycardia -started when breathing got worse after lunch -EKG done but baseline with a lot of artifact--> P wave present-->? MAT but difficult to assess with artifact -will treat respiratory issues and see if HR improves Leukocytosis -resolved Elevated BNP -lasix given today Borderline Hypotension -resolved -IVF completed Hyponatremia -resolved Mild Anemia -at baseline -no s/o bleeding -monitor HTN/HFpEF-compensated/Stage 1 Diastolic Dysfunction/Mod PAH/Mod -ECHO done 09/2019 shows EF of 55%/Mod PAH/-mod per gradient and diastolic dysfunction -RVSP is 50 mmHg -hold antihypertensives -restart Lasix--> 40 mg IVP given earlier and pt is diuresing well COPD GOLD Stage 3 -FEV1 is 44% predicted on 12/2016 -see above -at baseline on 5-6 L and Trilogy at HS -Trelegy Ellipta and rescue inhalers -follows with Dr. Mccartney Vit D Deficiency -continue home meds ? Dysphagia -has h/o strictures and ? of needing EGD and dilation -MBS pending -NPO for now RLL Lung Ca -CT from 2018 reveled no recurreanc -? repeat CT--> will leave to pulm -was treated with XRT and has chronic scarring related H/O Mobitz type II 2nd degree AV block -has pacer -stable GERD -not on PPI at baseline DVT prophylaxis -lovenox Code status -Adamantly a full code -overall prognosis is very poor and pt is at risk for and need for intubation -pt aware and would like intubated if needed -pt is hospice appropriate and has refused this in the past Inpatient E&M: [id number] Subs Hosp L3
--- NOTE | 2020-03-17 18:24 | NURSING ---
Pt refusing to wear SCD's at this time. Stating I want to take a break. Will attempt to reapply at later time.
[2020-03-17] MEDS: Metoprolol Tartrate 5 MG/5 ML Vial IV (18:48)
[2020-03-17] MEDS: Acetaminophen 325 MG Tablet 650 MG PO (21:41)
[2020-03-17] MEDS: guaiFENesin 10 ML UDC (200MG/10ML) 20 ML PO (21:42)
--- NOTE | 2020-03-17 22:00 | NURSING ---
pt gave permission for dtr monroe to get an update on pt condition, update given. dtr and pt appreciative
[2020-03-18] VITALS (17 sets, daily range): BP systolic 94–116; BP diastolic 58–73; PULSE 70–105; RESP 12–24; TEMP 36.6–37.4; O2SAT 94–98
[2020-03-18] MEDS: Ipratropium/Albuterol Sulfate 3 ML AMPUL.NEB INHALATION ×4 (03:12→22:39)
[2020-03-18] MEDS: 0.9% Saline Lock 10 ML Syringe IV ×2 (05:09→21:07)
[2020-03-18] MEDS: Acetaminophen 325 MG Tablet 650 MG PO ×2 (05:33→21:14)
--- NOTE | 2020-03-18 05:55 | RAD_ITS ---
STUDY: X-RAY CHEST REASON FOR EXAM: Male, 84 years old. COUGH AND SOB TECHNIQUE: Single AP portable view of the chest. COMPARISON: Comparison is made with prior study dated 03/17/2020. FINDINGS: EKG electrodes are seen. Persistent right lower lobe and left lower lobe infiltrates. There has been mild improvement as compared to prior study. Stable blunting of both costophrenic angles. A left-sided dual-chamber pacemaker is seen. Normal mediastinum and rafia. Normal visualized pulmonary arteries. There is atherosclerotic calcification of the aortic arch with tortuosity. There are diffuse degenerative changes of the visualized thoracic spine. Normal visualized ribs, clavicles, and shoulders. There is no demonstrated abnormality of the visualized soft tissue structures of the upper abdomen. RAD/Chest 1 View (Portable) IMPRESSION: Residual bibasilar infiltrates although there has been mild improvement as compared to prior study. Electronically Signed: Caleb Hartman, at 8:22 EDT , Service support ,
[2020-03-18 06:24] LABS: Absolute Lymphocyte Count 1.03 X10^3/uL (0.83-4.51); Absolute Neutrophil Count 7.7 X10^3/uL (2.0-7.7); Basophil# 0.01 X10^3/uL; Basophil% 0.1 % (0-1); Eosinophil# 0.01 X10^3/uL; Eosinophils% 0.1 % (0-5); Hematocrit 30.8 % (40-54); Hemoglobin 9.2 g/dL (13.0-16.5); Lymphocyte # 1.03 X10^3/ul (4.0); Lymphocyte % 10.7 % (19-41); Mean Corp Hgb Conc 29.9 g/dL (32-36); Mean Corpuscular Hgb 29.3 pg (27.0-32.0); Mean Corpuscular Volume 98.1 fL (80-94); Mean Platelet Vol. 9.8 fl (6.2-12.0); Monocyte% 8.3 % (0-10); NRBC Flagged by Analyzer 0 % (0-5); Neutrophil # 7.69 X10^3/uL (2.7-7.7); Neutrophil % 80.1 % (47-70); Platelet Count 193 K/mm3 (150-450); RBC Distribution Width CV 12.9 % (11.6-14.6); RBC Distribution Width SD 46.1 fl (35.1-43.9); Red Blood Count 3.14 M/mm3 (4.6-6.2); White Blood Count 9.6 K/mm3 (4.4-11.0)
[2020-03-18 06:58] LABS: Anion Gap 3 (5-15); BUN 29 mg/dL (7-18); BUN/Creat Ratio 42.2 RATIO (10-20); Calcium,Total 8.9 mg/dL (8.5-10.1); Chloride 99 mmol/L (98-107); Creatinine, Serum 0.69 mg/dL (0.70-1.30); EST Glomerular Filtration Rate 117 mL/min (>60); Est Glom Filt Rate - Afr Amer 141 mL/min (>60); Estimated Creatinine Clearance 45.68 ml/min; Glucose 101 mg/dL (74-106); Sodium Level 140 mmol/L (136-145)
[2020-03-18] MEDS: Enoxaparin 40 MG/0.4 ML Syringe SC (11:47)
--- NOTE | 2020-03-18 12:52 | OT ---
PROVIDED ENERGY CONSERVATION EDU AND HANDOUT TO MAXIMIZE INDEP AND SAFETY PT DEMO LIMITED ENDURANCE AND FATIGUES WITH LIGHT ADL TASKS.
--- NOTE | 2020-03-18 12:53 | PN_ITS ---
Subjective: The patient was seen and examined at the bedside this morning. Events from the last 24 hours have been reviewed. The patient is currently afebrile, hemodynamically stable and maintaining appropriate oxygen saturations on 5 L/min via nasal cannula. The patient looks and feels much better today from a breathing perspective, when compared to how he felt yesterday. He is currently awaiting a cookie swallow evaluation. Objective: The patient's most recent lab work, culture data and imaging studies have all been personally reviewed. Strep and urine Legionella antigens were negative. Respiratory viral panel was negative. Preliminary sputum culture appears to be normal respiratory james. - Physical Exam Vitals/I&O's: Vital Signs Temp Pulse Resp BP Pulse Ox 99.1 F 103 H 20 H 94/58 L 94 03/18/20 08:40 03/18/20 08:40 03/18/20 08:40 03/18/20 08:40 03/18/20 12:33 Oxygen Flow Rate (L/min) 6 Oxygen Delivery Method Nasal Cannula Weight: 127 lb 3.307 oz Body Mass Index (BMI) 20.0 Intake and Output for Last 24 Hours 03/16/20 03/17/20 03/18/20 23:59 23:59 23:59 Intake Total 835 / 835 2856.25 / 2856.25 254 / 254 Output Total 300 / 300 1075 / 1075 200 / 200 Balance 535 / 535 1781.25 / 1781.25 54 / 54 General: Alert, Cooperative, No apparent distress, - - Sitting in bedside recliner. is present as well. HEENT: Atraumatic, Normocephalic Oral: Moist Mucosa, No Gingival or Mucosal Lesions/ Ulcerations Neck: Supple, No Nodes, Trachea Midline Lungs: - - Globally diminished air movement bilaterally without appreciable wheezes, rales or rhonchi. Cardiovascular: Regular rate, Regular Rhythm, Murmur Abdomen: Bowel Sounds Present, Soft, Non Tender Extremities: No clubbing, No cyanosis, No edema Skin: No breakdown Musculoskeletal: No Tenderness to Palpation of Joints or Extremities Lymphatic: No Cervical, Supraclavicular, or Inguinal Adenopathy Neurological: Cranial nerves II-XII grossly intact, Neuro grossly intact Psych/Mental Status: Normal Affect, Appropriate Labs (Last 48 Hours) 03/16/20 03/17/20 03/17/20 13:09 05:32 05:32 WBC 7.2 RBC 3.12 L Hgb 9.2 L Hct 29.7 L MCV 95.2 H MCH 29.5 MCHC 31.0 L RDW Std Deviation 43.8 RDW Coeff of Earline 12.7 Plt Count 184 MPV 10.0 Immature Gran % (Auto) 0.800 Neut % (Auto) 88.5 H Lymph % (Auto) 4.8 L [place] % (Auto) 5.8 Eos % (Auto) 0.0 Baso % (Auto) 0.1 Absolute Neuts (auto) 6.4 Absolute Lymphs (auto) 0.35 L Nucleated RBC % 0 Differential Comment SCANNED Sodium 136 Potassium 4.3 Chloride 101 Carbon Dioxide 36.0 H Anion Gap -1 L BUN 19 H Creatinine 0.60 L Estim Creat Clear Calc 46.39 Est GFR (MDRD) Af Amer 164 Est GFR (MDRD) Non-Af 136 BUN/Creatinine Ratio 31.5 H Glucose 174 H Lactic Acid 2.0 Calcium 8.9 Magnesium 2.6 Total Bilirubin 0.30 AST 16 ALT 34 Alkaline Phosphatase 67 Total Protein 6.2 L Albumin 2.7 L Globulin 3.5 Albumin/Globulin Ratio 0.8 L 03/18/20 03/18/20 06:16 06:16 WBC 9.6 RBC 3.14 L Hgb 9.2 L Hct 30.8 L MCV 98.1 H MCH 29.3 MCHC 29.9 L RDW Std Deviation 46.1 H RDW Coeff of Earline 12.9 Plt Count 193 MPV 9.8 Immature Gran % (Auto) 0.700 Neut % (Auto) 80.1 H Lymph % (Auto) 10.7 L [place] % (Auto) 8.3 Eos % (Auto) 0.1 Baso % (Auto) 0.1 Absolute Neuts (auto) 7.7 Absolute Lymphs (auto) 1.03 Nucleated RBC % 0 Differential Comment Sodium 140 Potassium 4.0 Chloride 99 Carbon Dioxide 38.0 H Anion Gap 3 L BUN 29 H Creatinine 0.69 L Estim Creat Clear Calc 45.68 Est GFR (MDRD) Af Amer 141 Est GFR (MDRD) Non-Af 117 BUN/Creatinine Ratio 42.2 H Glucose 101 Lactic Acid Calcium 8.9 Magnesium Total Bilirubin AST ALT Alkaline Phosphatase Total Protein Albumin Globulin Albumin/Globulin Ratio Microbiology 03/16/20 10:00 Sputum, Expectorated/Coughed Gram Stain - Final 03/16/20 10:00 Sputum, Expectorated/Coughed Respiratory Culture - Preliminary Presumptive C albicans 03/17/20 06:35 Urine, Clean Catch Streptococcus pneumoniae Antigen (M - Final 03/17/20 06:35 Urine, Clean Catch Legionella Antigen - Final 03/16/20 15:20 Mucosa - Nasopharyngeal Respiratory Panel (PCR) - Final 03/16/20 11:25 Mucosa - Nose Influenza Types A,B Direct FA (STEVE) - Final Clinical Impression(s) from Imaging Studies Chest X-Ray 03/16/20 06:17 IMPRESSION: The pacemaker leads are in proper position. There are bilateral lower lobe pulmonary infiltrates worse on the RIGHT. There is a small RIGHT pleural effusion. There is NO pneumothorax. Normal size heart. Electronically Signed: Cole Salas MD at 7:41 EDT , Service support , Chest X-Ray 03/17/20 13:51 IMPRESSION: Progressive infiltration in the lower lobes worse on the right side with small bilateral pleural effusions. Electronically Signed: Caleb Hartman, at 15:22 EDT , Service support , Chest X-Ray 03/18/20 05:55 IMPRESSION: Residual bibasilar infiltrates although there has been mild improvement as compared to prior study. Electronically Signed: Caleb Hartman, at 8:22 EDT , Service support , Current Medications Acetaminophen (Tylenol) 650 mg PO Q6H PRN PRN PRN Reason: Pain Score 1-10/Temp > 100.7 F Last Admin: 03/18/20 05:33 Dose: 650 mg Documented by: Albuterol Sulfate (Ventolin Aerosols) 2.5 mg INHALATION Q2H PRN PRN PRN Reason: SHORTNESS OF BREATH Albuterol/Ipratropium (Duoneb) 3 ml INHALATION Q4H.RT [facility] Last Admin: 03/18/20 11:35 Dose: Not Given Documented by: Bisacodyl (Dulcolax) 5 mg PO DAILY PRN PRN PRN Reason: Constipation Cholecalciferol (Vitamin D (25mcg)) 1,000 unit PO DAILY [facility] Last Admin: 03/17/20 10:10 Dose: 1,000 unit Documented by: Enoxaparin Sodium (Lovenox) 40 mg SC DAILY [facility] Last Admin: 03/18/20 11:47 Dose: 40 mg Documented by: Furosemide (Lasix) 40 mg PO DAILY [facility] Guaifenesin (Robitussin) 20 ml PO Q4H PRN PRN PRN Reason: COUGH Last Admin: 03/17/20 21:42 Dose: 20 ml Documented by: Meropenem 1 gm/ Sodium (Chloride) 100 mls @ 33 mls/hr IV Q8 [facility] Last Infusion: 03/18/20 08:11 Dose: Infused Documented by: Sodium Chloride () 250 mls @ 15 mls/hr IV .[id number] PRN PRN Reason: Saline Flush Last Infusion: 03/18/20 11:47 Dose: 0 mls/hr Documented by: Ondansetron HCl (Zofran) 4 mg IV Q8H PRN PRN PRN Reason: NAUSEA/VOMITING Polyethylene Glycol (Miralax) 17 gm PO DAILY PRN PRN PRN Reason: Constipation Prednisone () 40 mg PO DAILY@0800 [facility] Last Admin: 03/17/20 10:10 Dose: 40 mg Documented by: Sodium Chloride () 10 - 40 ml IV UD PRN PRN Reason: SALINE FLUSH Last Admin: 03/18/20 05:09 Dose: 10 ml Documented by: Medical Necessity - Tobacco Use Smoking Status: Former smoker Tobacco Use: Non-smoker Assessment/Plan RECOMMENDATIONS: 1. Continue antimicrobials, scheduled bronchodilators and IV steroids. 2. Continue BiPAP therapy as needed. 3. Wean supplemental oxygen to maintain saturations at or above 90%. 4. Cookie swallow evaluation is currently pending. IMPRESSIONS: 1. Acute on chronic hypoxemic respiratory failure Appears to be secondary to possible right lower lobe pneumonia. Agree with continuing antimicrobials, with plans to complete a 7-day treatment course. Continue scheduled bronchodilators along with IV steroids for now. The patient does have a baseline 4 L/min oxygen requirement and regularly utilizes a trilogy noninvasive ventilator in his home environment. Recommend weaning supplemental oxygen as tolerated to maintain saturations at or above 90%. BiPAP or AVAPS can be utilized on a nightly basis. The patient remains n.p.o. pending cookie swallow evaluation today. Dietary advancement per speech therapy recommendations. 2. History of aortic stenosis/second-degree AV block/paroxysmal atrial fibrillation/pulmonary hypertension Complicates care, management, recovery and prognosis. Continue home medications as tolerated. This note was generated with [employer] dictation software. It may contain incorrect words, spelling, and punctuation that were not noted in checking the note before signing. Inpatient E&M: 47439 Subs Hosp L2
[2020-03-18] MEDS: predniSONE 20 MG Tablet 40 MG PO (13:58)
[2020-03-18] MEDS: Furosemide 40 MG Tablet PO (13:59)
--- NOTE | 2020-03-18 14:11 | PN_ITS ---
Subjective: Patient seen and examined. He feels better today. Shortness of breath is improved and he thinks he is back to his baseline. Review of systems otherwise negative. He is on 5 L of oxygen and is usually on 6 to 8 L at home. Blood pressure was a bit low this morning at 94/58. Chemistry showed bicarb of 38. Vitals/I&O's: Vital Signs Temp Pulse Resp BP Pulse Ox 99.1 F 103 H 20 H 94/58 L 94 03/18/20 08:40 03/18/20 08:40 03/18/20 08:40 03/18/20 08:40 03/18/20 12:33 Oxygen Flow Rate (L/min) 5 Oxygen Delivery Method Nasal Cannula Weight: 127 lb 3.307 oz Body Mass Index (BMI) 20.0 Intake and Output for Last 24 Hours 03/16/20 03/17/20 03/18/20 23:59 23:59 23:59 Intake Total 835 / 835 2856.25 / 2856.25 509 / 509 Output Total 300 / 300 1075 / 1075 325 / 325 Balance 535 / 535 1781.25 / 1781.25 184 / 184 General: Alert, Oriented x3, Cooperative, - - frail HEENT: Atraumatic, PERRLA, EOMI, Normocephalic Oral: Dry Mucosa Neck: Supple, No JVD, Negative Carotid Bruits Lungs: - - decreased breath sounds bibasally, no wheezes or crackles. on 5L of oxygen Cardiovascular: Regular rate, Regular Rhythm, Normal S1, Normal S2, No murmurs Abdomen: Bowel Sounds Present, Soft, Non Tender, Non-Distended, No Hepato- splenomegaly Extremities: No edema, Capillary Refill Less than 3 Seconds Skin: No rashes, No breakdown Musculoskeletal: No Tenderness to Palpation of Joints or Extremities Lymphatic: No Cervical, Supraclavicular, or Inguinal Adenopathy Neurological: Cranial nerves II-XII grossly intact, Neuro grossly intact, Motor Exam 5/5 strength throughout Psych/Mental Status: Normal Affect, Appropriate, Alert and oriented to time, place, person, mood and affect Microbiology Past 72 Hours 03/16/20 10:00 Sputum, Expectorated/Coughed Gram Stain - Final 03/16/20 10:00 Sputum, Expectorated/Coughed Respiratory Culture - Preliminary Presumptive C albicans 03/17/20 06:35 Urine, Clean Catch Streptococcus pneumoniae Antigen (M - Final 03/17/20 06:35 Urine, Clean Catch Legionella Antigen - Final 03/16/20 15:20 Mucosa - Nasopharyngeal Respiratory Panel (PCR) - Final 03/16/20 11:25 Mucosa - Nose Influenza Types A,B Direct FA (STEVE) - Final Laboratory Results 03/18/20 06:16: WBC 9.6, RBC 3.14 L, Hgb 9.2 L, Hct 30.8 L, MCV 98.1 H, MCH 29.3, MCHC 29.9 L, RDW Std Deviation 46.1 H, RDW Coeff of Earline 12.9, Plt Count 193, MPV 9.8, Immature Gran % (Auto) 0.700, Neut % (Auto) 80.1 H, Lymph % (Auto) 10.7 L, [place] % (Auto) 8.3, Eos % (Auto) 0.1, Baso % (Auto) 0.1, Absolute Neuts (auto) 7.7, Absolute Lymphs (auto) 1.03, Nucleated RBC % 0 03/18/20 06:16: Sodium 140, Potassium 4.0, Chloride 99, Carbon Dioxide 38.0 H, Anion Gap 3 L, BUN 29 H, Creatinine 0.69 L, Estim Creat Clear Calc 45.68, Est GFR (MDRD) Af Amer 141, Est GFR (MDRD) Non-Af 117, BUN/Creatinine Ratio 42.2 H, Glucose 101, Calcium 8.9 Diagnostic Data Chest X-Ray 03/18/20 05:55 IMPRESSION: Residual bibasilar infiltrates although there has been mild improvement as compared to prior study. Electronically Signed: Caleb Hartman, at 8:22 EDT , Service support , Current Medications Acetaminophen (Tylenol) 650 mg PO Q6H PRN PRN PRN Reason: Pain Score 1-10/Temp > 100.7 F Last Admin: 03/18/20 05:33 Dose: 650 mg Documented by: Albuterol Sulfate (Ventolin Aerosols) 2.5 mg INHALATION Q2H PRN PRN PRN Reason: SHORTNESS OF BREATH Albuterol/Ipratropium (Duoneb) 3 ml INHALATION Q4H.RT [facility] Last Admin: 03/18/20 11:35 Dose: Not Given Documented by: Bisacodyl (Dulcolax) 5 mg PO DAILY PRN PRN PRN Reason: Constipation Cholecalciferol (Vitamin D (25mcg)) 1,000 unit PO DAILY [facility] Last Admin: 03/18/20 13:58 Dose: 1,000 unit Documented by: Enoxaparin Sodium (Lovenox) 40 mg SC DAILY [facility] Last Admin: 03/18/20 11:47 Dose: 40 mg Documented by: Furosemide (Lasix) 40 mg PO DAILY [facility] Last Admin: 03/18/20 13:59 Dose: 40 mg Documented by: Guaifenesin (Robitussin) 20 ml PO Q4H PRN PRN PRN Reason: COUGH Last Admin: 03/17/20 21:42 Dose: 20 ml Documented by: Meropenem 1 gm/ Sodium (Chloride) 100 mls @ 33 mls/hr IV Q8 [facility] Last Admin: 03/18/20 13:56 Dose: 33 mls/hr Documented by: Sodium Chloride () 250 mls @ 15 mls/hr IV .[id number] PRN PRN Reason: Saline Flush Last Infusion: 03/18/20 12:48 Dose: 15 mls/hr Documented by: Ondansetron HCl (Zofran) 4 mg IV Q8H PRN PRN PRN Reason: NAUSEA/VOMITING Polyethylene Glycol (Miralax) 17 gm PO DAILY PRN PRN PRN Reason: Constipation Prednisone () 40 mg PO DAILY@0800 [facility] Last Admin: 03/18/20 13:58 Dose: 40 mg Documented by: Sodium Chloride () 10 - 40 ml IV UD PRN PRN Reason: SALINE FLUSH Last Admin: 03/18/20 05:09 Dose: 10 ml Documented by: STROKE Vital Signs/Narrative: Vital Signs Pulse Ox 03/18/20 12:33 94 03/18/20 11:35 96 Medical Necessity - Tobacco Use Smoking Status: Former smoker Tobacco Use: Non-smoker Assessment/Plan #Acute on chronic hypoxic and hypercapnic respiratory failure due to COPD exacerbation and pneumonia * feels better today * CXR showed ?RLL infiltrate vs chronic scarring * sputum cultures negative * on 5-6L of oxygen with Trilogy at night * now on PO prednisone * titrate oxygen to maintain sats >90% * pulmonology on board * COVID negative * on IV meropenem # HFpEF: EF of 55%/ RVSP 9s 50mmHb. On lasix PO 40mg daily #. HYpotension: BP in the 90s systolic today. Symptomatic. Will monitor. #Dysphagia: * Does have a history of strictures. * At risk of aspiration. Was due to have a cookie swallow today but there was nobody to do it and will be done on Sunday. * Speech therapy to evaluate now to see if patient can be put on a diet. * History of right lower lobe lung cancer: Status post treatment. Stable. Pulmonology on board. 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 Stable #GERD: On famotidine Prophylaxis: Lovenox Code status: full code. Patient has poor prognosis, but has refused hospice and wants to remain full code. - Inpatient E&M: 60941 Subs Hosp L2
[2020-03-19] VITALS (18 sets, daily range): BP systolic 103–116; BP diastolic 53–69; PULSE 70–126; RESP 12–24; TEMP 36.6–37.1; O2SAT 83–99
[2020-03-19] MEDS: Ipratropium/Albuterol Sulfate 3 ML AMPUL.NEB INHALATION ×6 (03:01→22:31)
[2020-03-19] MEDS: 0.9% Saline Lock 10 ML Syringe IV ×2 (05:14→13:49)
[2020-03-19] MEDS: predniSONE 20 MG Tablet 40 MG PO (08:34)
[2020-03-19] MEDS: Furosemide 40 MG Tablet PO (09:13)
[2020-03-19] MEDS: Enoxaparin 40 MG/0.4 ML Syringe SC (09:13)
--- NOTE | 2020-03-19 10:11 | PCM.PN.PUL ---
Subjective: The patient was seen and examined at the bedside this morning. Events from the last 24 hours have been reviewed. The patient is currently afebrile, hemodynamically stable and maintaining appropriate oxygen saturations on 5 L/min via nasal cannula. Objective: The patient's most recent lab work, culture data and imaging studies have all been personally reviewed. Strep and urine Legionella antigens were negative. Respiratory viral panel was negative. Preliminary sputum culture appears to be normal respiratory james. - Physical Exam Vitals/I&O's: Vital Signs Temp Pulse Resp BP Pulse Ox 98.8 F 108 H 19 H 103/53 L 98 03/19/20 09:05 03/19/20 09:05 03/19/20 09:05 03/19/20 09:05 03/19/20 09:05 Oxygen Flow Rate (L/min) 5 Oxygen Delivery Method Nasal Cannula Weight: 127 lb 6.835 oz Body Mass Index (BMI) 20.0 Intake and Output for Last 24 Hours 03/17/20 03/18/20 03/19/20 23:59 23:59 23:59 Intake Total 2856.25 / 2856.25 1046 / 1106 300.25 / 300.25 Output Total 1075 / 1075 1700 / 1800 250 / 250 Balance 1781.25 / 1781.25 -654 / -694 50.25 / 50.25 General: Alert, Cooperative, No apparent distress, - - Sitting in bedside recliner. Currently working with physical therapy. HEENT: Atraumatic, Normocephalic Oral: No Gingival or Mucosal Lesions/ Ulcerations Neck: Supple, No Nodes, Trachea Midline Lungs: No rhonchi, No wheeze, No rales, Diminished Cardiovascular: Regular rate, Regular Rhythm Abdomen: Bowel Sounds Present, Soft, Non Tender Extremities: No clubbing, No cyanosis Skin: No breakdown Musculoskeletal: No Tenderness to Palpation of Joints or Extremities Lymphatic: No Cervical, Supraclavicular, or Inguinal Adenopathy Neurological: Cranial nerves II-XII grossly intact, Neuro grossly intact Psych/Mental Status: Normal Affect, Appropriate Labs (Last 48 Hours) 03/18/20 03/18/20 06:16 06:16 WBC 9.6 RBC 3.14 L Hgb 9.2 L Hct 30.8 L MCV 98.1 H MCH 29.3 MCHC 29.9 L RDW Std Deviation 46.1 H RDW Coeff of Earline 12.9 Plt Count 193 MPV 9.8 Immature Gran % (Auto) 0.700 Neut % (Auto) 80.1 H Lymph % (Auto) 10.7 L [place] % (Auto) 8.3 Eos % (Auto) 0.1 Baso % (Auto) 0.1 Absolute Neuts (auto) 7.7 Absolute Lymphs (auto) 1.03 Nucleated RBC % 0 Sodium 140 Potassium 4.0 Chloride 99 Carbon Dioxide 38.0 H Anion Gap 3 L BUN 29 H Creatinine 0.69 L Estim Creat Clear Calc 45.68 Est GFR (MDRD) Af Amer 141 Est GFR (MDRD) Non-Af 117 BUN/Creatinine Ratio 42.2 H Glucose 101 Calcium 8.9 Microbiology 03/16/20 10:00 Sputum, Expectorated/Coughed Gram Stain - Final 03/16/20 10:00 Sputum, Expectorated/Coughed Respiratory Culture - Final Presumptive C albicans 03/17/20 06:35 Urine, Clean Catch Streptococcus pneumoniae Antigen (M - Final 03/17/20 06:35 Urine, Clean Catch Legionella Antigen - Final Clinical Impression(s) from Imaging Studies Chest X-Ray 03/16/20 06:17 IMPRESSION: The pacemaker leads are in proper position. There are bilateral lower lobe pulmonary infiltrates worse on the RIGHT. There is a small RIGHT pleural effusion. There is NO pneumothorax. Normal size heart. Electronically Signed: Cole Salas MD at 7:41 EDT , Service support , Chest X-Ray 03/17/20 13:51 IMPRESSION: Progressive infiltration in the lower lobes worse on the right side with small bilateral pleural effusions. Electronically Signed: Caleb Hartman, at 15:22 EDT , Service support , Chest X-Ray 03/18/20 05:55 IMPRESSION: Residual bibasilar infiltrates although there has been mild improvement as compared to prior study. Electronically Signed: Caleb Hartman, at 8:22 EDT , Service support , Current Medications Acetaminophen (Tylenol) 650 mg PO Q6H PRN PRN PRN Reason: Pain Score 1-10/Temp > 100.7 F Last Admin: 03/18/20 21:14 Dose: 650 mg Documented by: Albuterol Sulfate (Ventolin Aerosols) 2.5 mg INHALATION Q2H PRN PRN PRN Reason: SHORTNESS OF BREATH Albuterol/Ipratropium (Duoneb) 3 ml INHALATION Q4H.RT [facility] Last Admin: 03/19/20 06:42 Dose: 3 ml Documented by: Bisacodyl (Dulcolax) 5 mg PO DAILY PRN PRN PRN Reason: Constipation Cholecalciferol (Vitamin D (25mcg)) 1,000 unit PO DAILY [facility] Last Admin: 03/19/20 09:13 Dose: 1,000 unit Documented by: Enoxaparin Sodium (Lovenox) 40 mg SC DAILY [facility] Last Admin: 03/19/20 09:13 Dose: 40 mg Documented by: Furosemide (Lasix) 40 mg PO DAILY [facility] Last Admin: 03/19/20 09:13 Dose: 40 mg Documented by: Guaifenesin (Robitussin) 20 ml PO Q4H PRN PRN PRN Reason: COUGH Last Admin: 03/17/20 21:42 Dose: 20 ml Documented by: Meropenem 1 gm/ Sodium (Chloride) 100 mls @ 33 mls/hr IV Q8 [facility] Last Infusion: 03/19/20 08:14 Dose: Infused Documented by: Sodium Chloride () 250 mls @ 15 mls/hr IV .[id number] PRN PRN Reason: Saline Flush Last Infusion: 03/19/20 08:14 Dose: 15 mls/hr Documented by: Ondansetron HCl (Zofran) 4 mg IV Q8H PRN PRN PRN Reason: NAUSEA/VOMITING Polyethylene Glycol (Miralax) 17 gm PO DAILY PRN PRN PRN Reason: Constipation Prednisone () 40 mg PO DAILY@0800 [facility] Last Admin: 03/19/20 08:34 Dose: 40 mg Documented by: Sodium Chloride () 10 - 40 ml IV UD PRN PRN Reason: SALINE FLUSH Last Admin: 03/19/20 05:14 Dose: 10 ml Documented by: Medical Necessity - Tobacco Use Tobacco Use: Non-smoker Assessment/Plan RECOMMENDATIONS: 1. Continue antimicrobials, scheduled bronchodilators and IV steroids. 2. Continue BiPAP therapy/AVAPS nightly. 3. Wean supplemental oxygen to maintain saturations at or above 90%. 4. Dietary restrictions per speech therapy recommendations. 5. Encourage incentive spirometer use and mobilize patient as tolerated. IMPRESSIONS: 1. Acute on chronic hypoxemic respiratory failure Appears to be secondary to bilateral lower lobe pneumonia. Agree with continuing antimicrobials, with plans to complete a 7-day treatment course. Continue scheduled bronchodilators along with IV steroids for now. The patient does have a baseline 4 L/min oxygen requirement and regularly utilizes a trilogy noninvasive ventilator in his home environment. Recommend weaning supplemental oxygen as tolerated to maintain saturations at or above 90%. BiPAP or AVAPS can be utilized on a nightly basis. Given the patient's limited respiratory reserve, I do anticipate a prolonged recovery period. 2. History of aortic stenosis/second-degree AV block/paroxysmal atrial fibrillation/pulmonary hypertension Complicates care, management, recovery and prognosis. Continue home medications as tolerated. This note was generated with [employer] dictation software. It may contain incorrect words, spelling, and punctuation that were not noted in checking the note before signing. Inpatient E&M: 59353 Subs Hosp L2
--- NOTE | 2020-03-19 11:19 | CT_ITS ---
STUDY: CTA CHEST REASON FOR EXAM: Male, 84 years old. HYPOXIA, SHORTNESS OF BREATH, CHEST PAIN, COUGH. RADIATION DOSAGE (If Supplied By Facility): CTDIvol = ( 11.27 ) mGy, DLP = ( 193.49 ) mGycm TECHNIQUE: The examination was performed with the intravenous administration of Isovue 370 75ml. Post-processing of the angiographic images was performed, with multiplanar reformation and 3D reconstruction. Individualized dose optimization techniques were used for this CT. COMPARISON: Comparison is made with prior study dated 05/28/2019. FINDINGS: Normal enhancement of the main pulmonary artery and right and left pulmonary arteries. Normal enhancement of the bilateral peripheral pulmonary arteries. There is no demonstrated pulmonary embolism. Normal thoracic aorta and visualized great vessels. There is no demonstrated aortic dissection. Normal heart and pericardium. There are visualized mediastinal lymph nodes, which are within normal size limits, and with normal morphology. Normal hilar regions. Normal visualized trachea and bronchi. Hyperinflation. Diffuse emphysematous changes with bullous formation in both lungs worse in the upper lobes. Small bilateral pleural effusions with the infiltration in both lower lobes worse on the right side. This is essentially unchanged. The previously seen right lower lobe mass has decreased in size. It presently measures 2 cm x 2 cm. Normal chest wall structures. Stable old compression fractures of the T6, T9-T10 and T12-L1 and L2 vertebrae. There now is evidence of a 3.4 cm x 3 cm hypodense mass in the spleen. CT/CTA Chest W/WO Contrast IMPRESSION: No evidence of pulmonary embolus. Diffuse emphysematous changes worse in the upper lobes. Small bilateral effusions with bibasilar infiltration and/or atelectasis. Interval decrease in size of the right lower lobe mass measuring 2 cm x 2 cm. Electronically Signed: Caleb Hartman, at 12:48 EDT , Service support ,
[2020-03-19] MEDS: Acetaminophen 325 MG Tablet 650 MG PO ×2 (13:45→21:55)
--- NOTE | 2020-03-19 14:28 | PCM.PN.HOSP ---
Subjective: Patient seen and examined. His shortness of breath is at his baseline and he has no complaints today. Review of systems otherwise negative. Plans were to discharge patient today but with ambulation patient saturation dropped to 83% on his base of 5 to 6 L of oxygen. He has been tachycardic as well with heart rate being 126. Vitals/I&O's: Vital Signs Temp Pulse Resp BP Pulse Ox 98.7 F 126 H 22 H 103/53 L 95 03/19/20 13:58 03/19/20 13:58 03/19/20 13:58 03/19/20 09:05 03/19/20 13:58 Oxygen Flow Rate (L/min) [ 8 AMBULATION with Oxygen] Oxygen Flow Rate (L/min) 6 Oxygen Delivery Method Nasal Cannula Weight: 127 lb 6.835 oz Body Mass Index (BMI) 20.0 Intake and Output for Last 24 Hours 03/17/20 03/18/20 03/19/20 23:59 23:59 23:59 Intake Total 2856.25 / 2856.25 1046 / 1106 701.75 / 701.75 Output Total 1075 / 1075 1700 / 1800 525 / 525 Balance 1781.25 / 1781.25 -654 / -694 176.75 / 176.75 General: Alert, Oriented x3, Cooperative, - - frail HEENT: Atraumatic, PERRLA, EOMI, Normocephalic Oral: Dry Mucosa Neck: Supple, No JVD, Negative Carotid Bruits Lungs: - - decreased breath sounds bibasally, no wheezes or crackles. on 5L of oxygen Cardiovascular: Regular rate, Regular Rhythm, Normal S1, Normal S2, No murmurs Abdomen: Bowel Sounds Present, Soft, Non Tender, Non-Distended, No Hepato-splenomegaly Extremities: No edema, Capillary Refill Less than 3 Seconds Skin: No rashes, No breakdown Musculoskeletal: No Tenderness to Palpation of Joints or Extremities Lymphatic: No Cervical, Supraclavicular, or Inguinal Adenopathy Neurological: Cranial nerves II-XII grossly intact, Neuro grossly intact, Motor Exam 5/5 strength throughout Psych/Mental Status: Normal Affect, Appropriate, Alert and oriented to time, place, person, mood and affect Microbiology Past 72 Hours 03/16/20 10:00 Sputum, Expectorated/Coughed Gram Stain - Final 03/16/20 10:00 Sputum, Expectorated/Coughed Respiratory Culture - Final Presumptive C albicans 03/17/20 06:35 Urine, Clean Catch Streptococcus pneumoniae Antigen (M - Final 03/17/20 06:35 Urine, Clean Catch Legionella Antigen - Final 03/16/20 15:20 Mucosa - Nasopharyngeal Respiratory Panel (PCR) - Final 03/16/20 11:25 Mucosa - Nose Influenza Types A,B Direct FA (STEVE) - Final Current Medications Acetaminophen (Tylenol) 650 mg PO Q6H PRN PRN PRN Reason: Pain Score 1-10/Temp > 100.7 F Last Admin: 03/19/20 13:45 Dose: 650 mg Documented by: Albuterol Sulfate (Ventolin Aerosols) 2.5 mg INHALATION Q2H PRN PRN PRN Reason: SHORTNESS OF BREATH Albuterol/Ipratropium (Duoneb) 3 ml INHALATION Q4H.RT [facility] Last Admin: 03/19/20 10:37 Dose: 3 ml Documented by: Bisacodyl (Dulcolax) 5 mg PO DAILY PRN PRN PRN Reason: Constipation Cholecalciferol (Vitamin D (25mcg)) 1,000 unit PO DAILY [facility] Last Admin: 03/19/20 09:13 Dose: 1,000 unit Documented by: Enoxaparin Sodium (Lovenox) 40 mg SC DAILY [facility] Last Admin: 03/19/20 09:13 Dose: 40 mg Documented by: Furosemide (Lasix) 40 mg PO DAILY [facility] Last Admin: 03/19/20 09:13 Dose: 40 mg Documented by: Guaifenesin (Robitussin) 20 ml PO Q4H PRN PRN PRN Reason: COUGH Last Admin: 03/17/20 21:42 Dose: 20 ml Documented by: Meropenem 1 gm/ Sodium (Chloride) 100 mls @ 33 mls/hr IV Q8 [facility] Last Admin: 03/19/20 13:49 Dose: 33 mls/hr Documented by: Sodium Chloride () 250 mls @ 15 mls/hr IV .[id number] PRN PRN Reason: Saline Flush Last Infusion: 03/19/20 13:54 Dose: 0 mls/hr Documented by: Ondansetron HCl (Zofran) 4 mg IV Q8H PRN PRN PRN Reason: NAUSEA/VOMITING Polyethylene Glycol (Miralax) 17 gm PO DAILY PRN PRN PRN Reason: Constipation Prednisone () 40 mg PO DAILY@0800 [facility] Last Admin: 03/19/20 08:34 Dose: 40 mg Documented by: Sodium Chloride () 10 - 40 ml IV UD PRN PRN Reason: SALINE FLUSH Last Admin: 03/19/20 13:49 Dose: 10 ml Documented by: STROKE Vital Signs/Narrative: Vital Signs Temp Pulse Resp Pulse Ox Pulse Ox 03/19/20 13:58 98.7 F 126 H 22 H 95 03/19/20 13:56 126 H 95 03/19/20 11:00 83 03/19/20 10:37 112 H 20 H Medical Necessity - Tobacco Use Tobacco Use: Non-smoker Assessment/Plan #Acute on chronic hypoxic and hypercapnic respiratory failure due to COPD exacerbation and pneumonia plan was to dc home today, but he desaturated significantly to 83% whilst ambulating. CTA done showed no evidence of PE continue 5-6L of oxygen during the day, with Trilogy at night pulmo on board COVID was negative. # HFpEF: EF of 55%/ RVSP 9s 50mmHb. On lasix PO 40mg daily #. HYpotension: resolved # Tachycardia: likely due to albuterol. will dc albuterol. #Dysphagia: Does have a history of strictures. At risk of aspiration. Was due to have a cookie swallow but there was nobody to do it and will be done on Sunday. Speech therapy on board #History of right lower lobe lung cancer: Status post treatment. Stable. Pulmonology on board. 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 Stable #GERD: On famotidine Prophylaxis: Lovenox Code status: full code. Patient has poor prognosis, but has refused hospice and wants to remain full code. - Inpatient E&M: 57853 Subs Hosp L3
--- NOTE | 2020-03-19 15:37 | CASEMGMT ---
This RN CM to room to discuss discharge plan with pt/ at this time. Pt is getting resp treatment at this time and states no further resources needed at this time. CM to follow. Soheila NEELY CM
[2020-03-20] VITALS (21 sets, daily range): BP systolic 103–142; BP diastolic 58–77; PULSE 69–116; RESP 12–26; TEMP 36.5–36.9; O2SAT 92–99
[2020-03-20] MEDS: Ipratropium/Albuterol Sulfate 3 ML AMPUL.NEB INHALATION ×5 (06:44→22:31)
[2020-03-20 06:52] LABS: Absolute Lymphocyte Count 1.34 X10^3/uL (0.83-4.51); Absolute Neutrophil Count 4.7 X10^3/uL (2.0-7.7); Basophil# 0.01 X10^3/uL; Basophil% 0.1 % (0-1); Eosinophils% 2.9 % (0-5); Hematocrit 32.6 % (40-54); Hemoglobin 9.7 g/dL (13.0-16.5); Lymphocyte # 1.34 X10^3/ul (4.0); Lymphocyte % 19.3 % (19-41); Mean Corp Hgb Conc 29.8 g/dL (32-36); Mean Corpuscular Hgb 29.1 pg (27.0-32.0); Mean Corpuscular Volume 97.9 fL (80-94); Mean Platelet Vol. 9.9 fl (6.2-12.0); Monocyte# 0.64 X10^3/uL; Monocyte% 9.2 % (0-10); NRBC Flagged by Analyzer 0 % (0-5); Neutrophil # 4.67 X10^3/uL (2.7-7.7); Neutrophil % 67.2 % (47-70); Platelet Count 207 K/mm3 (150-450); RBC Distribution Width CV 12.8 % (11.6-14.6); RBC Distribution Width SD 45.8 fl (35.1-43.9); Red Blood Count 3.33 M/mm3 (4.6-6.2)
[2020-03-20 07:08] LABS: Anion Gap 0 (5-15); BUN 25 mg/dL (7-18); BUN/Creat Ratio 43.9 RATIO (10-20); Calcium,Total 8.5 mg/dL (8.5-10.1); Chloride 99 mmol/L (98-107); Creatinine, Serum 0.57 mg/dL (0.70-1.30); EST Glomerular Filtration Rate 145 mL/min (>60); Est Glom Filt Rate - Afr Amer 175 mL/min (>60); Estimated Creatinine Clearance 45.76 ml/min; Glucose 80 mg/dL (74-106); Potassium 3.8 mmol/L (3.5-5.1); Sodium Level 141 mmol/L (136-145)
--- NOTE | 2020-03-20 08:12 | PN_ITS ---
Subjective: The patient was seen and examined at the bedside this morning. Events from the last 24 hours have been reviewed. The patient remains afebrile and hem odynamically stable. He is currently maintaining appropriate oxygen saturations on 4L/min via nasal cannula. Breathing is overall improved from yesterday. Objective: The patient's most recent lab work, culture data and imaging studies have all been personally reviewed. Strep and urine Legionella antigens were negative. Respiratory viral panel was negative. Preliminary sputum culture appears to be normal respiratory james. - Physical Exam Vitals/I&O's: Vital Signs Temp Pulse Resp BP Pulse Ox 97.8 F 108 H 20 H 104/58 L 99 03/20/20 03:10 03/20/20 07:08 03/20/20 06:44 03/20/20 03:10 03/20/20 06:44 Oxygen Flow Rate (L/min) [ 8 AMBULATION with Oxygen] Oxygen Flow Rate (L/min) 4 Oxygen Delivery Method Nasal Cannula Weight: 127 lb 6.835 oz Body Mass Index (BMI) 20.0 Intake and Output for Last 24 Hours 03/18/20 03/19/20 03/20/20 23:59 23:59 23:59 Intake Total 1046 / 1106 1381.55 / 1381.55 137 / 137 Output Total 1700 / 1800 925 / 925 200 / 200 Balance -654 / -694 456.55 / 456.55 -63 / -63 General: Alert, Cooperative, No apparent distress, - - Frail elderly male HEENT: Atraumatic, Normocephalic Oral: No Gingival or Mucosal Lesions/ Ulcerations Neck: Supple, No Nodes, Trachea Midline Lungs: No rhonchi, No wheeze, No rales, Diminished Cardiovascular: Regular rate, Regular Rhythm Abdomen: Bowel Sounds Present, Soft, Non Tender Extremities: No clubbing, No cyanosis, No edema Skin: No breakdown Musculoskeletal: No Tenderness to Palpation of Joints or Extremities Lymphatic: No Cervical, Supraclavicular, or Inguinal Adenopathy Neurological: Cranial nerves II-XII grossly intact, Neuro grossly intact Psych/Mental Status: Alert and oriented to time, place, person, mood and affect Labs (Last 48 Hours) 03/20/20 03/20/20 06:33 06:33 WBC 7.0 RBC 3.33 L Hgb 9.7 L Hct 32.6 L MCV 97.9 H MCH 29.1 MCHC 29.8 L RDW Std Deviation 45.8 H RDW Coeff of Earline 12.8 Plt Count 207 MPV 9.9 Immature Gran % (Auto) 1.300 H Neut % (Auto) 67.2 Lymph % (Auto) 19.3 [place] % (Auto) 9.2 Eos % (Auto) 2.9 Baso % (Auto) 0.1 Absolute Neuts (auto) 4.7 Absolute Lymphs (auto) 1.34 Nucleated RBC % 0 Sodium 141 Potassium 3.8 Chloride 99 Carbon Dioxide 42.0 H Anion Gap 0 L BUN 25 H Creatinine 0.57 L Estim Creat Clear Calc 45.76 Est GFR (MDRD) Af Amer 175 Est GFR (MDRD) Non-Af 145 BUN/Creatinine Ratio 43.9 H Glucose 80 Calcium 8.5 Microbiology 03/16/20 10:00 Sputum, Expectorated/Coughed Gram Stain - Final 03/16/20 10:00 Sputum, Expectorated/Coughed Respiratory Culture - Final Presumptive C albicans Clinical Impression(s) from Imaging Studies Chest X-Ray 03/16/20 06:17 IMPRESSION: The pacemaker leads are in proper position. There are bilateral lower lobe pulmonary infiltrates worse on the RIGHT. There is a small RIGHT pleural effusion. There is NO pneumothorax. Normal size heart. Electronically Signed: Cole Salas MD at 7:41 EDT , Service support , Chest X-Ray 03/17/20 13:51 IMPRESSION: Progressive infiltration in the lower lobes worse on the right side with small bilateral pleural effusions. Electronically Signed: Caleb Hartman, at 15:22 EDT , Service support , Chest X-Ray 03/18/20 05:55 IMPRESSION: Residual bibasilar infiltrates although there has been mild improvement as compared to prior study. Electronically Signed: Caleb Hartman, at 8:22 EDT , Service support , Chest CTA 03/19/20 11:19 IMPRESSION: No evidence of pulmonary embolus. Diffuse emphysematous changes worse in the upper lobes. Small bilateral effusions with bibasilar infiltration and/or atelectasis. Interval decrease in size of the right lower lobe mass measuring 2 cm x 2 cm. Electronically Signed: Caleb Hartman, at 12:48 EDT , Service support , Current Medications Acetaminophen (Tylenol) 650 mg PO Q6H PRN PRN PRN Reason: Pain Score 1-10/Temp > 100.7 F Last Admin: 03/19/20 21:55 Dose: 650 mg Documented by: Albuterol/Ipratropium (Duoneb) 3 ml INHALATION Q4H.RT [facility] Last Admin: 03/20/20 06:44 Dose: 3 ml Documented by: Bisacodyl (Dulcolax) 5 mg PO DAILY PRN PRN PRN Reason: Constipation Cholecalciferol (Vitamin D (25mcg)) 1,000 unit PO DAILY [facility] Last Admin: 03/19/20 09:13 Dose: 1,000 unit Documented by: Enoxaparin Sodium (Lovenox) 40 mg SC DAILY [facility] Last Admin: 03/19/20 09:13 Dose: 40 mg Documented by: Furosemide (Lasix) 40 mg PO DAILY [facility] Last Admin: 03/19/20 09:13 Dose: 40 mg Documented by: Guaifenesin (Robitussin) 20 ml PO Q4H PRN PRN PRN Reason: COUGH Last Admin: 03/17/20 21:42 Dose: 20 ml Documented by: Meropenem 1 gm/ Sodium (Chloride) 100 mls @ 33 mls/hr IV Q8 [facility] Last Admin: 03/20/20 05:35 Dose: 33 mls/hr Documented by: Sodium Chloride () 250 mls @ 15 mls/hr IV .[id number] PRN PRN Reason: Saline Flush Last Infusion: 03/20/20 05:35 Dose: 0 mls/hr Documented by: Ondansetron HCl (Zofran) 4 mg IV Q8H PRN PRN PRN Reason: NAUSEA/VOMITING Polyethylene Glycol (Miralax) 17 gm PO DAILY PRN PRN PRN Reason: Constipation Prednisone () 40 mg PO DAILY@0800 [facility] Last Admin: 03/19/20 08:34 Dose: 40 mg Documented by: Sodium Chloride () 10 - 40 ml IV UD PRN PRN Reason: SALINE FLUSH Last Admin: 03/19/20 13:49 Dose: 10 ml Documented by: Medical Necessity - Tobacco Use Tobacco Use: Non-smoker Assessment/Plan RECOMMENDATIONS: 1. Continue antimicrobials, scheduled bronchodilators and IV steroids. 2. Continue BiPAP therapy/AVAPS nightly. 3. Wean supplemental oxygen to maintain saturations at or above 90%. 4. Dietary restrictions per speech therapy recommendations. 5. Encourage incentive spirometer use and mobilize patient as tolerated. 6. Will give one additional dose of Lasix today. IMPRESSIONS: 1. Acute on chronic hypoxemic respiratory failure Appears to be secondary to bilateral lower lobe pneumonia. Agree with continuing antimicrobials, with plans to complete a 7-day treatment course. Continue scheduled bronchodilators along with IV steroids for now. The patient does have a baseline 4 L/min oxygen requirement and regularly utilizes a trilogy noninvasive ventilator in his home environment. Recommend weaning supplemental oxygen as tolerated to maintain saturations at or above 90%. BiPAP or AVAPS can be utilized on a nightly basis. Given the patient's limited respiratory reserve, I do anticipate a prolonged recovery period. 2. History of aortic stenosis/second-degree AV block/paroxysmal atrial fibrillation/pulmonary hypertension Complicates care, management, recovery and prognosis. Continue home medications as tolerated. This note was generated with [employer] dictation software. It may contain incorrect words, spelling, and punctuation that were not noted in checking the note before signing.
[2020-03-20] MEDS: predniSONE 20 MG Tablet 40 MG PO (09:02)
[2020-03-20] MEDS: Furosemide 40 MG/4 ML Vial IV (09:02)
[2020-03-20] MEDS: 0.9% Saline Lock 10 ML Syringe IV ×3 (09:02→21:34)
[2020-03-20] MEDS: Enoxaparin 40 MG/0.4 ML Syringe SC (09:03)
[2020-03-20] MEDS: Acetaminophen 325 MG Tablet 650 MG PO (10:11)
--- NOTE | 2020-03-20 12:10 | PN_ITS ---
<Xena Hernandez - Last Filed: 03/20/20 12:41> Subjective: Patient seen and examined. States he is having a rough time this morning. Continues to have shortness of breath. Cough, fever, chills. - Physical Exam Vitals/I&O's: Vital Signs Temp Pulse Resp BP Pulse Ox 98.1 F 108 H 20 H 103/58 L 98 03/20/20 12:05 03/20/20 12:05 03/20/20 12:05 03/20/20 12:05 03/20/20 12:05 Oxygen Flow Rate (L/min) [ 8 AMBULATION with Oxygen] Oxygen Flow Rate (L/min) 6 Oxygen Delivery Method Nasal Cannula Weight: 128 lb 1.417 oz Body Mass Index (BMI) 20.0 Intake and Output for Last 24 Hours 03/18/20 03/19/20 03/20/20 23:59 23:59 23:59 Intake Total 1046 / 1106 1381.55 / 1381.55 237 / 237 Output Total 1700 / 1800 925 / 925 200 / 200 Balance -654 / -694 456.55 / 456.55 37 / 37 General: Alert, Oriented x3, Cooperative HEENT: Atraumatic, PERRLA, EOMI, Normocephalic Neck: Supple, No JVD, Negative Carotid Bruits Lungs: Clear to auscultation, Diminished Cardiovascular: Regular rate, Regular Rhythm, Normal S1, Normal S2, No murmurs Abdomen: Bowel Sounds Present, Soft, Non Tender, Non-Distended Extremities: No clubbing, No cyanosis, No edema, Capillary Refill Less than 3 Seconds Skin: No rashes, No breakdown Musculoskeletal: No Tenderness to Palpation of Joints or Extremities Neurological: Cranial nerves II-XII grossly intact, Neuro grossly intact Psych/Mental Status: Normal Affect, Appropriate Microbiology Past 72 Hours 03/16/20 10:00 Sputum, Expectorated/Coughed Gram Stain - Final 03/16/20 10:00 Sputum, Expectorated/Coughed Respiratory Culture - Final Presumptive C albicans Laboratory Results 03/20/20 06:33: WBC 7.0, RBC 3.33 L, Hgb 9.7 L, Hct 32.6 L, MCV 97.9 H, MCH 29.1, MCHC 29.8 L, RDW Std Deviation 45.8 H, RDW Coeff of Earline 12.8, Plt Count 207, MPV 9.9, Immature Gran % (Auto) 1.300 H, Neut % (Auto) 67.2, Lymph % (Auto) 19.3, [place] % (Auto) 9.2, Eos % (Auto) 2.9, Baso % (Auto) 0.1, Absolute Neuts (auto) 4.7, Absolute Lymphs (auto) 1.34, Nucleated RBC % 0 03/20/20 06:33: Sodium 141, Potassium 3.8, Chloride 99, Carbon Dioxide 42.0 H, Anion Gap 0 L, BUN 25 H, Creatinine 0.57 L, Estim Creat Clear Calc 45.76, Est GFR (MDRD) Af Amer 175, Est GFR (MDRD) Non-Af 145, BUN/Creatinine Ratio 43.9 H, Glucose 80, Calcium 8.5 Current Medications Acetaminophen (Tylenol) 650 mg PO Q6H PRN PRN PRN Reason: Pain Score 1-10/Temp > 100.7 F Last Admin: 03/20/20 10:11 Dose: 650 mg Documented by: Albuterol/Ipratropium (Duoneb) 3 ml INHALATION Q4H.RT [facility] Last Admin: 03/20/20 10:26 Dose: 3 ml Documented by: Bisacodyl (Dulcolax) 5 mg PO DAILY PRN PRN PRN Reason: Constipation Cholecalciferol (Vitamin D (25mcg)) 1,000 unit PO DAILY [facility] Last Admin: 03/20/20 09:02 Dose: 1,000 unit Documented by: Enoxaparin Sodium (Lovenox) 40 mg SC DAILY [facility] Last Admin: 03/20/20 09:03 Dose: 40 mg Documented by: Furosemide (Lasix) 40 mg PO DAILY [facility] Last Admin: 03/19/20 09:13 Dose: 40 mg Documented by: Guaifenesin (Robitussin) 20 ml PO Q4H PRN PRN PRN Reason: COUGH Last Admin: 03/17/20 21:42 Dose: 20 ml Documented by: Meropenem 1 gm/ Sodium (Chloride) 100 mls @ 33 mls/hr IV Q8 [facility] Last Infusion: 03/20/20 08:40 Dose: Infused Documented by: Sodium Chloride () 250 mls @ 15 mls/hr IV .[id number] PRN PRN Reason: Saline Flush Last Infusion: 03/20/20 05:35 Dose: 0 mls/hr Documented by: Ondansetron HCl (Zofran) 4 mg IV Q8H PRN PRN PRN Reason: NAUSEA/VOMITING Polyethylene Glycol (Miralax) 17 gm PO DAILY PRN PRN PRN Reason: Constipation Prednisone () 40 mg PO DAILY@0800 [facility] Last Admin: 03/20/20 09:02 Dose: 40 mg Documented by: Sodium Chloride () 10 - 40 ml IV UD PRN PRN Reason: SALINE FLUSH Last Admin: 03/20/20 09:02 Dose: 20 ml Documented by: Medical Necessity - Tobacco Use Tobacco Use: Non-smoker Assessment/Plan 1. Acute on chronic combined hypoxic and hypercapnic respiratory failure secondary to severe COPD with exacerbation and bilateral lower lobe pneumonia- Pulmonary medicine following. Continue supplement oxygen to maintain O2 at or above 90%. BiPAP nightly. IV Meropenem. Albuterol and duoneb aerosols. Will resume IV Solu-Medrol and return to prednisone when improved. Feel a palliative consult would be appropriate. Will discuss with patient. 2. Heart failure with preserved ejection fraction-echocardiogram September 2019 demonstrates an EF of 55%, stage I diastolic dysfunction, moderate pulmonary hypertension, mean aortic valve gradient 23 mmHg. Continue oral Lasix regimen. 3. Dysphagia-history of strictures. Speech therapy consulted. Continue dietary modifications per speech therapy recommendations. 4. Hypertension-stable, continue amlodipine, losartan regimen. 5. History of right lower lobe lung cancer-pulmonary follow-up. 6. History of aortic stenosis-stable per echo September 2019. 7. 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 8. History of tobacco dependence-in remission. 9. GERD- on famotidine. 10. Depression-continue paroxetine regimen. DVT prophylaxis- Lovenox sc This patient was seen by CAITLIN Andrade under the supervision of Dr. Lunsford. <Tatiana Lunsford - Last Filed: 03/20/20 14:49> - Physical Exam Vitals/I&O's: Vital Signs Temp Pulse Resp BP Pulse Ox 98.1 F 108 H 20 H 103/58 L 98 03/20/20 12:05 08/15/20 12:05 03/20/20 12:05 03/20/20 12:05 03/20/20 12:05 Oxygen Flow Rate (L/min) [ 8 AMBULATION with Oxygen] Oxygen Flow Rate (L/min) 6 Oxygen Delivery Method Nasal Cannula Weight: 128 lb 1.417 oz Body Mass Index (BMI) 20.0 Intake and Output for Last 24 Hours 03/18/20 03/19/20 03/20/20 23:59 23:59 23:59 Intake Total 1046 / 1106 1381.55 / 1381.55 357 / 357 Output Total 1700 / 1800 925 / 925 1060 / 1060 Balance -654 / -694 456.55 / 456.55 -703 / -703 Microbiology Past 72 Hours 03/16/20 10:00 Sputum, Expectorated/Coughed Gram Stain - Final 03/16/20 10:00 Sputum, Expectorated/Coughed Respiratory Culture - Final Presumptive C albicans Laboratory Results 03/20/20 06:33: WBC 7.0, RBC 3.33 L, Hgb 9.7 L, Hct 32.6 L, MCV 97.9 H, MCH 29.1, MCHC 29.8 L, RDW Std Deviation 45.8 H, RDW Coeff of Earline 12.8, Plt Count 207, MPV 9.9, Immature Gran % (Auto) 1.300 H, Neut % (Auto) 67.2, Lymph % (Auto) 19.3, [place] % (Auto) 9.2, Eos % (Auto) 2.9, Baso % (Auto) 0.1, Absolute Neuts (auto) 4.7, Absolute Lymphs (auto) 1.34, Nucleated RBC % 0 03/20/20 06:33: Sodium 141, Potassium 3.8, Chloride 99, Carbon Dioxide 42.0 H, Anion Gap 0 L, BUN 25 H, Creatinine 0.57 L, Estim Creat Clear Calc 45.76, Est GFR (MDRD) Af Amer 175, Est GFR (MDRD) Non-Af 145, BUN/Creatinine Ratio 43.9 H, Glucose 80, Calcium 8.5 Current Medications Acetaminophen (Tylenol) 650 mg PO Q6H PRN PRN PRN Reason: Pain Score 1-10/Temp > 100.7 F Last Admin: 03/20/20 10:11 Dose: 650 mg Documented by: Albuterol/Ipratropium (Duoneb) 3 ml INHALATION Q4H.RT [facility] Last Admin: 03/20/20 10:26 Dose: 3 ml Documented by: Bisacodyl (Dulcolax) 5 mg PO DAILY PRN PRN PRN Reason: Constipation Cholecalciferol (Vitamin D (25mcg)) 1,000 unit PO DAILY [facility] Last Admin: 03/20/20 09:02 Dose: 1,000 unit Documented by: Enoxaparin Sodium (Lovenox) 40 mg SC DAILY [facility] Last Admin: 03/20/20 09:03 Dose: 40 mg Documented by: Furosemide (Lasix) 40 mg PO DAILY [facility] Last Admin: 03/19/20 09:13 Dose: 40 mg Documented by: Guaifenesin (Robitussin) 20 ml PO Q4H PRN PRN PRN Reason: COUGH Last Admin: 03/17/20 21:42 Dose: 20 ml Documented by: Meropenem 1 gm/ Sodium (Chloride) 100 mls @ 33 mls/hr IV Q8 [facility] Last Infusion: 03/20/20 08:40 Dose: Infused Documented by: Sodium Chloride () 250 mls @ 15 mls/hr IV .[id number] PRN PRN Reason: Saline Flush Last Infusion: 03/20/20 05:35 Dose: 0 mls/hr Documented by: Methylprednisolone (Solu-Medrol) 40 mg IV Q8 [facility] Ondansetron HCl (Zofran) 4 mg IV Q8H PRN PRN PRN Reason: NAUSEA/VOMITING Polyethylene Glycol (Miralax) 17 gm PO DAILY PRN PRN PRN Reason: Constipation Sodium Chloride () 10 - 40 ml IV UD PRN PRN Reason: SALINE FLUSH Last Admin: 03/20/20 09:02 Dose: 20 ml Documented by: Assessment/Plan Patient seen by CAITLIN Andrade under my supervision. Patient seen and examined. He still feels weak today. He associates the shortness of breath has not improved. Review of signs otherwise negative. He desaturated yesterday down to 83% so could not be discharged. He does get tachycardic CT of the chest was negative for any PE. o/E: Vital Signs Temp Pulse Resp BP Pulse Ox 98.1 F 108 H 20 H 103/58 L 98 03/20/20 12:05 03/20/20 12:05 03/20/20 12:05 03/20/20 12:05 03/20/20 12:05 General: Alert, Oriented x3, Cooperative, - - frail HEENT: Atraumatic, PERRLA, EOMI, Normocephalic Oral: Dry Mucosa Neck: Supple, No JVD, Negative Carotid Bruits Lungs: - - decreased breath sounds bibasally, no wheezes or crackles. on 5L of oxygen Cardiovascular: tachycardic, Regular Rhythm, Normal S1, Normal S2, No murmurs Abdomen: Bowel Sounds Present, Soft, Non Tender, Non-Distended, No Hepato- splenomegaly Extremities: No edema, Capillary Refill Less than 3 Seconds Skin: No rashes, No breakdown Musculoskeletal: No Tenderness to Palpation of Joints or Extremities Lymphatic: No Cervical, Supraclavicular, or Inguinal Adenopathy Neurological: Cranial nerves II-XII grossly intact, Neuro grossly intact, Motor Exam 5/5 strength throughout Psych/Mental Status: Normal Affect, Appropriate, Alert and oriented to time, place, person, mood and affect Plan is to continue titrating oxygen to maintain saturation above 90%. Solu- Medrol. BiPAP for a valves nightly as needed. Per pulmonology, considering his limited respiratory reserve, with anticipation of a prolonged recovery period. Continue IV meropenem for 2 more days to complete a 7-day IV antibiotic course. Rest as per CAITLIN Andrade's notes which I reviewed and endorsed. Inpatient E&M: [id number] [facility] H[facility] L3
--- NOTE | 2020-03-20 13:44 | CASEMGMT ---
Pt does not have LW/POA forms, given [facility] card to call SW department by CM to set up a time to complete forms after discharge. VISHAL Contreras
[2020-03-20] MEDS: Furosemide 40 MG Tablet PO (15:30)
[2020-03-21] VITALS (19 sets, daily range): BP systolic 106–168; BP diastolic 65–97; PULSE 85–130; RESP 12–24; TEMP 36.8–37.1; O2SAT 94–99
[2020-03-21 06:16] LABS: Absolute Lymphocyte Count 0.64 X10^3/uL (0.83-4.51); Absolute Neutrophil Count 5.1 X10^3/uL (2.0-7.7); Hematocrit 34.2 % (40-54); Hemoglobin 10.1 g/dL (13.0-16.5); Lymphocyte # 0.64 X10^3/ul (4.0); Lymphocyte % 10.3 % (19-41); Mean Corp Hgb Conc 29.5 g/dL (32-36); Mean Corpuscular Hgb 28.9 pg (27.0-32.0); Mean Platelet Vol. 9.7 fl (6.2-12.0); Monocyte# 0.34 X10^3/uL; Monocyte% 5.5 % (0-10); NRBC Flagged by Analyzer 0 % (0-5); Neutrophil # 5.11 X10^3/uL (2.7-7.7); Neutrophil % 82.3 % (47-70); Platelet Count 259 K/mm3 (150-450); RBC Distribution Width CV 12.9 % (11.6-14.6); RBC Distribution Width SD 45.3 fl (35.1-43.9); Red Blood Count 3.49 M/mm3 (4.6-6.2); White Blood Count 6.2 K/mm3 (4.4-11.0)
[2020-03-21 06:35] LABS: Anion Gap 2 (5-15); BUN 27 mg/dL (7-18); BUN/Creat Ratio 38.1 RATIO (10-20); Calcium,Total 8.9 mg/dL (8.5-10.1); Chloride 99 mmol/L (98-107); Creatinine, Serum 0.71 mg/dL (0.70-1.30); EST Glomerular Filtration Rate 113 mL/min (>60); Est Glom Filt Rate - Afr Amer 136 mL/min (>60); Glucose 145 mg/dL (74-106); Potassium 4.2 mmol/L (3.5-5.1); Sodium Level 141 mmol/L (136-145)
[2020-03-21] MEDS: Ipratropium/Albuterol Sulfate 3 ML AMPUL.NEB INHALATION ×5 (06:46→23:00)
--- NOTE | 2020-03-21 07:49 | PCM.PN.PUL ---
Subjective: The patient was seen and examined at the bedside this morning. Events from the last 24 hours have been reviewed. The patient is currently afebrile, hemodynamically stable and maintaining appropriate oxygen saturations on 5 L/min via nasal cannula. The patient remains short of breath. Denisse swallow is scheduled for tomorrow. Objective: The patient's most recent lab work, culture data and imaging studies have all been personally reviewed. Strep and urine Legionella antigens were negative. Respiratory viral panel was negative. Sputum culture appears to be normal respiratory james. - Physical Exam Vitals/I&O's: Vital Signs Temp Pulse Resp BP Pulse Ox 98.5 F 102 H 20 H 121/70 H 98 03/21/20 04:30 03/21/20 06:46 03/21/20 06:46 03/21/20 04:30 03/21/20 06:46 Oxygen Flow Rate (L/min) [ 8 AMBULATION with Oxygen] Oxygen Flow Rate (L/min) 5 Oxygen Delivery Method Nasal Cannula Weight: 125 lb 14.143 oz Body Mass Index (BMI) 20.0 Intake and Output for Last 24 Hours 03/19/20 03/20/20 03/21/20 23:59 23:59 23:59 Intake Total 1381.55 / 1381.55 777 / 777 220 / 220 Output Total 925 / 925 2185 / 2185 200 / 200 Balance 456.55 / 456.55 -1408 / -1408 General: Alert, Cooperative HEENT: Atraumatic, PERRLA, Normocephalic Oral: Moist Mucosa, No Gingival or Mucosal Lesions/ Ulcerations Neck: Supple, No Nodes, Trachea Midline Lungs: No rhonchi, No wheeze, No rales, Diminished Cardiovascular: Regular rate, Regular Rhythm, Normal S1, Normal S2, Murmur Abdomen: Bowel Sounds Present, Soft, Non Tender Extremities: No clubbing, No cyanosis, No edema Skin: No breakdown Musculoskeletal: No Tenderness to Palpation of Joints or Extremities Lymphatic: No Cervical, Supraclavicular, or Inguinal Adenopathy Neurological: Cranial nerves II-XII grossly intact, Neuro grossly intact Psych/Mental Status: Normal Affect, Appropriate Labs (Last 48 Hours) 03/20/20 03/20/20 03/21/20 06:33 06:33 05:53 WBC 7.0 6.2 RBC 3.33 L 3.49 L Hgb 9.7 L 10.1 L Hct 32.6 L 34.2 L MCV 97.9 H 98.0 H MCH 29.1 28.9 MCHC 29.8 L 29.5 L RDW Std Deviation 45.8 H 45.3 H RDW Coeff of Earline 12.8 12.9 Plt Count 207 259 MPV 9.9 9.7 Immature Gran % (Auto) 1.300 H 1.900 H Neut % (Auto) 67.2 82.3 H Lymph % (Auto) 19.3 10.3 L Rock % (Auto) 9.2 5.5 Eos % (Auto) 2.9 0.0 Baso % (Auto) 0.1 0.0 Absolute Neuts (auto) 4.7 5.1 Absolute Lymphs (auto) 1.34 0.64 L Nucleated RBC % 0 0 Sodium 141 Potassium 3.8 Chloride 99 Carbon Dioxide 42.0 H Anion Gap 0 L BUN 25 H Creatinine 0.57 L Estim Creat Clear Calc 45.76 Est GFR (MDRD) Af Amer 175 Est GFR (MDRD) Non-Af 145 BUN/Creatinine Ratio 43.9 H Glucose 80 Calcium 8.5 03/21/20 05:53 WBC RBC Hgb Hct MCV MCH MCHC RDW Std Deviation RDW Coeff of Earline Plt Count MPV Immature Gran % (Auto) Neut % (Auto) Lymph % (Auto) Rock % (Auto) Eos % (Auto) Baso % (Auto) Absolute Neuts (auto) Absolute Lymphs (auto) Nucleated RBC % Sodium 141 Potassium 4.2 Chloride 99 Carbon Dioxide 40.0 H Anion Gap 2 L BUN 27 H Creatinine 0.71 Estim Creat Clear Calc 45.20 Est GFR (MDRD) Af Amer 136 Est GFR (MDRD) Non-Af 113 BUN/Creatinine Ratio 38.1 H Glucose 145 H Calcium 8.9 Microbiology 03/16/20 10:00 Sputum, Expectorated/Coughed Gram Stain - Final 03/16/20 10:00 Sputum, Expectorated/Coughed Respiratory Culture - Final Presumptive C albicans Clinical Impression(s) from Imaging Studies Chest X-Ray 03/16/20 06:17 IMPRESSION: The pacemaker leads are in proper position. There are bilateral lower lobe pulmonary infiltrates worse on the RIGHT. There is a small RIGHT pleural effusion. There is NO pneumothorax. Normal size heart. Electronically Signed: Cole Salas MD at 7:41 EDT , Service support , Chest X-Ray 03/17/20 13:51 IMPRESSION: Progressive infiltration in the lower lobes worse on the right side with small bilateral pleural effusions. Electronically Signed: Caleb Hartman, at 15:22 EDT , Service support , Chest X-Ray 03/18/20 05:55 IMPRESSION: Residual bibasilar infiltrates although there has been mild improvement as compared to prior study. Electronically Signed: Caleb Hartman, at 8:22 EDT , Service support , Chest CTA 03/19/20 11:19 IMPRESSION: No evidence of pulmonary embolus. Diffuse emphysematous changes worse in the upper lobes. Small bilateral effusions with bibasilar infiltration and/or atelectasis. Interval decrease in size of the right lower lobe mass measuring 2 cm x 2 cm. Electronically Signed: Caleb Hartman, at 12:48 EDT , Service support , Current Medications Acetaminophen (Tylenol) 650 mg PO Q6H PRN PRN PRN Reason: Pain Score 1-10/Temp > 100.7 F Last Admin: 03/20/20 10:11 Dose: 650 mg Documented by: Albuterol/Ipratropium (Duoneb) 3 ml INHALATION Q4H.RT [facility] Last Admin: 03/21/20 06:46 Dose: 3 ml Documented by: Bisacodyl (Dulcolax) 5 mg PO DAILY PRN PRN PRN Reason: Constipation Cholecalciferol (Vitamin D (25mcg)) 1,000 unit PO DAILY [facility] Last Admin: 03/20/20 09:02 Dose: 1,000 unit Documented by: Enoxaparin Sodium (Lovenox) 40 mg SC DAILY [facility] Last Admin: 03/20/20 09:03 Dose: 40 mg Documented by: Furosemide (Lasix) 40 mg PO DAILY [facility] Last Admin: 03/20/20 15:30 Dose: 40 mg Documented by: Guaifenesin (Robitussin) 20 ml PO Q4H PRN PRN PRN Reason: COUGH Last Admin: 03/17/20 21:42 Dose: 20 ml Documented by: Sodium Chloride () 250 mls @ 15 mls/hr IV .[id number] PRN PRN Reason: Saline Flush Last Infusion: 03/20/20 05:35 Dose: 0 mls/hr Documented by: Meropenem 1 gm/ Sodium (Chloride) 120 mls @ 33 mls/hr IV Q8 [facility] Stop: 03/22/20 22:01 Last Admin: 03/21/20 06:30 Dose: 33 mls/hr Documented by: Methylprednisolone (Solu-Medrol) 40 mg IV Q8 [facility] Last Admin: 03/21/20 06:30 Dose: 40 mg Documented by: Ondansetron HCl (Zofran) 4 mg IV Q8H PRN PRN PRN Reason: NAUSEA/VOMITING Polyethylene Glycol (Miralax) 17 gm PO DAILY PRN PRN PRN Reason: Constipation Sodium Chloride () 10 - 40 ml IV UD PRN PRN Reason: SALINE FLUSH Last Admin: 03/20/20 21:34 Dose: 10 ml Documented by: Medical Necessity - Tobacco Use Tobacco Use: Non-smoker Assessment/Plan RECOMMENDATIONS: 1. Continue antimicrobials, scheduled bronchodilators and IV steroids. 2. Continue BiPAP therapy/AVAPS nightly. 3. Wean supplemental oxygen to maintain saturations at or above 90%. 4. Dietary restrictions per speech therapy recommendations. 5. Encourage incentive spirometer use and mobilize patient as tolerated. 6. Perform walking oximetry study prior to consideration for discharge home. IMPRESSIONS: 1. Acute on chronic hypoxemic respiratory failure Appears to be secondary to bilateral lower lobe pneumonia. Agree with continuing antimicrobials, with plans to complete a 7-day treatment course. Continue scheduled bronchodilators along with IV steroids for now. The patient does have a baseline 4 L/min oxygen requirement and regularly utilizes a trilogy noninvasive ventilator in his home environment. Recommend weaning supplemental oxygen as tolerated to maintain saturations at or above 90%. BiPAP or AVAPS can be utilized on a nightly basis. Given the patient's limited respiratory reserve, I do anticipate a prolonged recovery period. Once the patient is able to ambulate on 6 L/min or less of supplemental oxygen, he can be discharged home with outpatient pulmonary follow-up. 2. History of aortic stenosis/second-degree AV block/paroxysmal atrial fibrillation/pulmonary hypertension Complicates care, management, recovery and prognosis. Continue home medications as tolerated. This note was generated with [employer] dictation software. It may contain incorrect words, spelling, and punctuation that were not noted in checking the note before signing. Inpatient E&M: 66553 Subs Hosp L2
[2020-03-21] MEDS: Furosemide 40 MG Tablet PO (08:58)
[2020-03-21] MEDS: Enoxaparin 40 MG/0.4 ML Syringe SC (08:58)
[2020-03-21] MEDS: Polyethylene Glycol 3350 17 GM PACKET PO (09:13)
[2020-03-21] MEDS: Bisacodyl 5 MG Tablet PO (09:13)
[2020-03-21] MEDS: 0.9% Saline Lock 10 ML Syringe IV ×2 (10:34→21:24)
[2020-03-21] MEDS: LORazepam 2 MG/ML Syringe 0.25 MG IV (10:34)
--- NOTE | 2020-03-21 10:36 | NURSING ---
breathing easier on bipap ativan iv given to help relax patient more at bedside patient states starting to breathe easier
--- NOTE | 2020-03-21 12:24 | PCM.PROGNOTE ---
<Xena Hernandez - Last Filed: 03/21/20 12:27> Subjective: Patient seen and examined. Reports he continues to have episodes of increased shortness of breath. Placed on BiPAP this morning which improved his symptoms. - Physical Exam Vitals/I&O's: Vital Signs Temp Pulse Resp BP Pulse Ox 98.8 F 109 H 24 H 168/97 H 95 03/21/20 10:04 03/21/20 10:58 03/21/20 10:58 03/21/20 10:04 03/21/20 10:14 Oxygen Flow Rate (L/min) [ 8 AMBULATION with Oxygen] Oxygen Flow Rate (L/min) 5 Oxygen Delivery Method Nasal Cannula Weight: 125 lb 14.143 oz Body Mass Index (BMI) 20.0 Intake and Output for Last 24 Hours 03/19/20 03/20/20 03/21/20 23:59 23:59 23:59 Intake Total 1381.55 / 1381.55 777 / 777 340 / 340 Output Total 925 / 925 2185 / 2185 200 / 200 Balance 456.55 / 456.55 -1408 / -1408 140 / 140 General: Alert, Oriented x3, Cooperative HEENT: Atraumatic, PERRLA, EOMI, Normocephalic Neck: Supple, No JVD, Negative Carotid Bruits Lungs: Clear to auscultation, Diminished Cardiovascular: Regular rate, Regular Rhythm, Normal S1, Normal S2, No murmurs Abdomen: Bowel Sounds Present, Soft, Non Tender, Non-Distended Extremities: No clubbing, No cyanosis, No edema, Capillary Refill Less than 3 Seconds Skin: No rashes, No breakdown Musculoskeletal: No Tenderness to Palpation of Joints or Extremities Neurological: Cranial nerves II-XII grossly intact, Neuro grossly intact Psych/Mental Status: Normal Affect, Appropriate Microbiology Past 72 Hours 03/16/20 10:00 Sputum, Expectorated/Coughed Gram Stain - Final 03/16/20 10:00 Sputum, Expectorated/Coughed Respiratory Culture - Final Presumptive C albicans Laboratory Results 03/21/20 05:53: WBC 6.2, RBC 3.49 L, Hgb 10.1 L, Hct 34.2 L, MCV 98.0 H, MCH 28.9, MCHC 29.5 L, RDW Std Deviation 45.3 H, RDW Coeff of Earline 12.9, Plt Count 259, MPV 9.7, Immature Gran % (Auto) 1.900 H, Neut % (Auto) 82.3 H, Lymph % (Auto) 10.3 L, Morton % (Auto) 5.5, Eos % (Auto) 0.0, Baso % (Auto) 0.0, Absolute Neuts (auto) 5.1, Absolute Lymphs (auto) 0.64 L, Nucleated RBC % 0 03/21/20 05:53: Sodium 141, Potassium 4.2, Chloride 99, Carbon Dioxide 40.0 H, Anion Gap 2 L, BUN 27 H, Creatinine 0.71, Estim Creat Clear Calc 45.20, Est GFR (MDRD) Af Amer 136, Est GFR (MDRD) Non-Af 113, BUN/Creatinine Ratio 38.1 H, Glucose 145 H, Calcium 8.9 Current Medications Acetaminophen (Tylenol) 650 mg PO Q6H PRN PRN PRN Reason: Pain Score 1-10/Temp > 100.7 F Last Admin: 03/20/20 10:11 Dose: 650 mg Documented by: Albuterol/Ipratropium (Duoneb) 3 ml INHALATION Q4H.RT WEI Last Admin: 03/21/20 10:58 Dose: 3 ml Documented by: Bisacodyl (Dulcolax) 5 mg PO DAILY PRN PRN PRN Reason: Constipation Last Admin: 03/21/20 09:13 Dose: 5 mg Documented by: Cholecalciferol (Vitamin D (25mcg)) 1,000 unit PO DAILY [facility] Last Admin: 03/21/20 08:58 Dose: 1,000 unit Documented by: Enoxaparin Sodium (Lovenox) 40 mg SC DAILY [facility] Last Admin: 03/21/20 08:58 Dose: 40 mg Documented by: Furosemide (Lasix) 40 mg PO DAILY [facility] Last Admin: 03/21/20 08:58 Dose: 40 mg Documented by: Guaifenesin (Robitussin) 20 ml PO Q4H PRN PRN PRN Reason: COUGH Last Admin: 03/17/20 21:42 Dose: 20 ml Documented by: Sodium Chloride () 250 mls @ 15 mls/hr IV .[id number] PRN PRN Reason: Saline Flush Last Infusion: 03/20/20 05:35 Dose: 0 mls/hr Documented by: Meropenem 1 gm/ Sodium (Chloride) 120 mls @ 33 mls/hr IV Q8 [facility] Stop: 03/22/20 22:01 Last Infusion: 03/21/20 10:12 Dose: Infused Documented by: Methylprednisolone (Solu-Medrol) 40 mg IV Q8 [facility] Last Admin: 03/21/20 06:30 Dose: 40 mg Documented by: Ondansetron HCl (Zofran) 4 mg IV Q8H PRN PRN PRN Reason: NAUSEA/VOMITING Polyethylene Glycol (Miralax) 17 gm PO DAILY PRN PRN PRN Reason: Constipation Last Admin: 03/21/20 09:13 Dose: 17 gm Documented by: Sodium Chloride () 10 - 40 ml IV UD PRN PRN Reason: SALINE FLUSH Last Admin: 03/21/20 10:34 Dose: 10 ml Documented by: Medical Necessity - Tobacco Use Tobacco Use: Non-smoker Assessment/Plan 1. Acute on chronic combined hypoxic and hypercapnic respiratory failure secondary to severe COPD with exacerbation and bilateral lower lobe pneumonia-Pulmonary medicine following. Continue supplement oxygen to maintain O2 at or above 90%. BiPAP nightly and PRN. IV Meropenem with stop date 03/22. Albuterol and duoneb aerosols. Continue IV Solu-Medrol and return to prednisone when improved. Feel a palliative consult would be appropriate. Will discuss with patient. 2. Heart failure with preserved ejection fraction-echocardiogram September 2019 demonstrates an EF of 55%, stage I diastolic dysfunction, moderate pulmonary hypertension, mean aortic valve gradient 23 mmHg. Continue oral Lasix regimen. 3. Dysphagia-history of strictures. Speech therapy consulted. Continue dietary modifications per speech therapy recommendations. 4. Hypertension-stable, continue amlodipine, losartan regimen. 5. History of right lower lobe lung cancer-pulmonary follow-up. 6. History of aortic stenosis-stable per echo September 2019. 7. 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 8. History of tobacco dependence-in remission. 9. GERD- on famotidine. 10. Depression-continue paroxetine regimen. DVT prophylaxis- Lovenox ga This patient was seen by CAITLIN Andrade under the supervision of Dr. Lunsford. <Tatiana Lunsford - Last Filed: 03/21/20 13:19> - Physical Exam Vitals/I&O's: Vital Signs Temp Pulse Resp BP Pulse Ox 98.8 F 109 H 24 H 168/97 H 95 03/21/20 10:04 03/21/20 10:58 03/21/20 10:58 03/21/20 10:04 03/21/20 10:14 Oxygen Flow Rate (L/min) [ 8 AMBULATION with Oxygen] Oxygen Flow Rate (L/min) 5 Oxygen Delivery Method Nasal Cannula Weight: 125 lb 14.143 oz Body Mass Index (BMI) 20.0 Intake and Output for Last 24 Hours 03/19/20 03/20/20 03/21/20 23:59 23:59 23:59 Intake Total 1381.55 / 1381.55 777 / 777 340 / 340 Output Total 925 / 925 2185 / 2185 200 / 200 Balance 456.55 / 456.55 -1408 / -1408 140 / 140 Microbiology Past 72 Hours 03/16/20 10:00 Sputum, Expectorated/Coughed Gram Stain - Final 03/16/20 10:00 Sputum, Expectorated/Coughed Respiratory Culture - Final Presumptive C albicans Laboratory Results 03/21/20 05:53: WBC 6.2, RBC 3.49 L, Hgb 10.1 L, Hct 34.2 L, MCV 98.0 H, MCH 28.9, MCHC 29.5 L, RDW Std Deviation 45.3 H, RDW Coeff of Earline 12.9, Plt Count 259, MPV 9.7, Immature Gran % (Auto) 1.900 H, Neut % (Auto) 82.3 H, Lymph % (Auto) 10.3 L, Morton % (Auto) 5.5, Eos % (Auto) 0.0, Baso % (Auto) 0.0, Absolute Neuts (auto) 5.1, Absolute Lymphs (auto) 0.64 L, Nucleated RBC % 0 03/21/20 05:53: Sodium 141, Potassium 4.2, Chloride 99, Carbon Dioxide 40.0 H, Anion Gap 2 L, BUN 27 H, Creatinine 0.71, Estim Creat Clear Calc 45.20, Est GFR (MDRD) Af Amer 136, Est GFR (MDRD) Non-Af 113, BUN/Creatinine Ratio 38.1 H, Glucose 145 H, Calcium 8.9 Current Medications Acetaminophen (Tylenol) 650 mg PO Q6H PRN PRN PRN Reason: Pain Score 1-10/Temp > 100.7 F Last Admin: 03/20/20 10:11 Dose: 650 mg Documented by: Albuterol/Ipratropium (Duoneb) 3 ml INHALATION Q4H.RT [facility] Last Admin: 03/21/20 10:58 Dose: 3 ml Documented by: Bisacodyl (Dulcolax) 5 mg PO DAILY PRN PRN PRN Reason: Constipation Last Admin: 03/21/20 09:13 Dose: 5 mg Documented by: Cholecalciferol (Vitamin D (25mcg)) 1,000 unit PO DAILY [facility] Last Admin: 03/21/20 08:58 Dose: 1,000 unit Documented by: Enoxaparin Sodium (Lovenox) 40 mg SC DAILY [facility] Last Admin: 03/21/20 08:58 Dose: 40 mg Documented by: Furosemide (Lasix) 40 mg PO DAILY [facility] Last Admin: 03/21/20 08:58 Dose: 40 mg Documented by: Guaifenesin (Robitussin) 20 ml PO Q4H PRN PRN PRN Reason: COUGH Last Admin: 03/17/20 21:42 Dose: 20 ml Documented by: Sodium Chloride () 250 mls @ 15 mls/hr IV .[id number] PRN PRN Reason: Saline Flush Last Infusion: 03/20/20 05:35 Dose: 0 mls/hr Documented by: Meropenem 1 gm/ Sodium (Chloride) 120 mls @ 33 mls/hr IV Q8 [facility] Stop: 03/22/20 22:01 Last Infusion: 03/21/20 10:12 Dose: Infused Documented by: Methylprednisolone (Solu-Medrol) 40 mg IV Q8 [facility] Last Admin: 03/21/20 06:30 Dose: 40 mg Documented by: Ondansetron HCl (Zofran) 4 mg IV Q8H PRN PRN PRN Reason: NAUSEA/VOMITING Polyethylene Glycol (Miralax) 17 gm PO DAILY PRN PRN PRN Reason: Constipation Last Admin: 03/21/20 09:13 Dose: 17 gm Documented by: Sodium Chloride () 10 - 40 ml IV UD PRN PRN Reason: SALINE FLUSH Last Admin: 03/21/20 10:34 Dose: 10 ml Documented by: Assessment/Plan Patient seen by CAITLIN Andrade under my supervision. Patient seen and examined. Still does not feel he is back at his baseline. He states he notes that he gets tachycardia with the breathing treatments. He remains on his 5 L of oxygen. o/E: Vital Signs Temp Pulse Resp BP Pulse Ox 98.8 F 109 H 24 H 168/97 H 95 03/21/20 10:04 03/21/20 10:58 03/21/20 10:58 03/21/20 10:04 03/21/20 10:14 General: Alert, Oriented x3, Cooperative, - - frail HEENT: Atraumatic, PERRLA, EOMI, Normocephalic Oral: Dry Mucosa Neck: Supple, No JVD, Negative Carotid Bruits Lungs: - - decreased breath sounds bibasally, no wheezes or crackles. on 5L of oxygen Cardiovascular: tachycardic, Regular Rhythm, Normal S1, Normal S2, No murmurs Abdomen: Bowel Sounds Present, Soft, Non Tender, Non-Distended, No Hepato-splenomegaly Extremities: No edema, Capillary Refill Less than 3 Seconds Skin: No rashes, No breakdown Musculoskeletal: No Tenderness to Palpation of Joints or Extremities Lymphatic: No Cervical, Supraclavicular, or Inguinal Adenopathy Neurological: Cranial nerves II-XII grossly intact, Neuro grossly intact, Motor Exam 5/5 strength throughout Psych/Mental Status: Normal Affect, Appropriate, Alert and oriented to time, place, person, mood and affect Plan is to continue titrating oxygen to maintain saturation above 90%. Solu-Medrol. BiPAP or AVAP nightly as needed. Per pulmonology, considering his limited respiratory reserve, with anticipation of a prolonged recovery period. Continue IV meropenem for 1 more day to complete a 7-day IV antibiotic course. Rest as per CAITLIN Andrade's notes which I reviewed and endorsed. Inpatient E&M: [id number] Subs Hosp L2
--- NOTE | 2020-03-21 21:15 | NURSING ---
Rec'd handoff from FLORINDA Rose. This nurse taking over care at this time. Trinity RN
[2020-03-22] VITALS (19 sets, daily range): BP systolic 98–129; BP diastolic 55–85; PULSE 80–128; RESP 12–26; TEMP 36.6–37.4; O2SAT 85–99
[2020-03-22] MEDS: Ipratropium/Albuterol Sulfate 3 ML AMPUL.NEB INHALATION ×6 (03:00→22:30)
[2020-03-22] MEDS: 0.9% Saline Lock 10 ML Syringe IV ×2 (05:17→21:30)
[2020-03-22] MEDS: Enoxaparin 40 MG/0.4 ML Syringe SC (08:23)
[2020-03-22] MEDS: Furosemide 40 MG Tablet PO (08:24)
--- NOTE | 2020-03-22 12:00 | SP.MBSS_ITS ---
PRIMARY / SECONDARY DIAGNOSIS: dysphagia (R13.10) CURRENT DIET (SOLIDS): mechanical soft textures (IDDSI: 5) CURRENT DIET (LIQUIDS): thin liquid diets (IDDSI: 0) DENTITION: upper / lower dentures present, ill-fitting lower dentures MENTAL STATUS: sufficient for participation RESPIRATORY STATUS: O2 at 6/L min via nasal cannula REASON FOR REFERRAL: The Patient is an 84 year old male referred for a modified barium swallow (MBS) study to objectively assess the Patients oropharyngeal swallow function under fluoroscopy secondary to concerns for persistent aspiration, with a history of silent aspiration under fluoroscopy; currently admitted secondary to acute on chronic hypoxemic respiratory failure appearing to be secondary to bilateral lower lobe pneumonia. MEDICAL HISTORY: Chronic obstructive pulmonary disease, prior lung cancer status post irradiation, bullous emphysema, chronic respiratory failure, non-rheumatic tricuspid valve insufficiency, diastolic dysfunction, nonrheumatic aortic valve stenosis, paroxysmal atrial flutter, conduction disorder of the heart, aortic valve disorder, mobitz type 2 second degree AV block, presence of cardiac pacemaker, essential hypertension, pulmonary hypertension, and gastroesophageal reflux disease. PREVIOUS MODIFIED BARIUM SWALLOW STUDY RESULTS: 06/02/2019 MBS revealed moderate oropharyngeal dysphagia (DSRS: 4; SPS: 5) w/ grade III SILENT aspiration of thin liquids. 08/15/2019 MBS revealed mild to moderate oropharyngeal dysphagia (DSRS: 3; SPS: 4) with intermittent shallow transient penetration of thin liquids. ADDITIONAL OBJECTIVE ASSESSMENT RESULTS: 03/16/2020 chest x-ray revealed bilateral lower lobe pulmonary infiltrates worse on the RIGHT; small RIGHT pleural effusion; NO pneumothorax; pacemaker leads are in proper position. 03/17/2020 chest x-ray revealed progressive infiltration in the lower lobes worse on the right side with small bilateral pleural effusions. 03/18/2020 chest x-ray revealed residual bibasilar infiltrates although there has been mild improvement as compared to prior study. 03/19/[address] revealed no evidence of pulmonary embolus; diffuse emphysematous changes worse in the upper lobes; small bilateral effusions with bibasilar infiltration and/or atelectasis; interval decrease in size of the right lower lobe mass measuring 2 cm x 2 cm. ASSESSMENT PARAMETERS: The Patient participated in a Modified Barium Swallow (MBS) study on 03/22/2020. This study was recorded in the lateral view and images were sent to PACs for storage. Scoring was completed through each trial using the 8- point Penetration-Aspiration Scale (PAS) and the Videofluoroscopic Scale Score (VSS), and summarized via the Modified Barium Swallow Impairment Profile (MBSImP) and the Bolus Residue Scale (BRS), with severity scoring through the Dysphagia Severity Rating Scale (DSRS) and the Dysphagia Classification Scale (DCS), and recommended diet textures through the International Dysphagia Diet Standardisation Initiative (IDDSI) RESULTS OF THE EVALUATION: The Patient presents with mild to moderate oropharyngeal dysphagia (DSRS: 3; DCS: D2)with intermittent shallow transient penetration of thin liquids. OBJECTIVE ASSESSMENT OF SWALLOW FUNCTION (QUANTITATIVE ? PER TRIAL): PENETRATION / ASPIRATION SCALE (LUGO): 1 = does not enter airway 2 = enters airway/above vocal folds/ejected 3 = enters airway/above vocal folds/not ejected 4 = enters airway/contacts vocal folds/ejected 5 = enters airway/contacts vocal folds/not ejected 6 = enters airway/below vocal folds/ejected 7 = enters airway/below vocal folds/not ejected despite effort 8 = enters airway/below vocal folds/no effort PENETRATION / ASPIRATION SCALE (SCORE): Thin liquid - 5 mL tsp.: 1 Thin liquids via straw (single sip): 1 Thin liquids via straw (single sip): 1 Thin liquids via straw (single sip): 1 Thin liquids via straw (sequential swallows): 2 Pudding via spoon: 1 Thin liquids via straw (single sip): 2 Regular textured cookie: 1 Thin liquids via straw (single sip): 1 Thin liquids via straw (single sip): 1 OBJECTIVE ASSESSMENT OF SWALLOW FUNCTION (QUANTITATIVE ? AGGREGATE): MODIFIED BARIUM SWALLOW IMPAIRMENT PROFILE (MBSImP) LABIAL SEAL: 0 (of 4) no labial escape TONGUE CONTROL: 1 (of 3) lateral buccal cavity / floor of mouth BOLUS PREPARATION / MASTICATION: 0 (of 3) timely and efficient BOLUS TRANSPORT / LINGUAL MOTION: 1 (of 4) delayed initiation of motion ORAL RESIDUE: 2 (of 4) residue collection on oral structures INITIATION OF PHARYNGEAL SWALLOW: 2 (of 4) posterior surface of epiglottis SOFT PALATE ELEVATION: 1 (of 4) trace column between soft palate & pharyngeal wall LARYNGEAL ELEVATION: 1 (of 3) partial superior movement / approximation ANTERIOR HYOID EXCURSION: 1 (of 2) partial movement EPIGLOTTIC MOVEMENT: 1 (of 2) partial inversion LARYNGEAL VESTIBULE CLOSURE: 0 (of 2) complete closure PHARYNGEAL STRIPPING WAVE: 1 (of 2) present / diminished PE SEGMENT OPENIN (of 3) partial distension / duration / obstruction TONGUE BASE RETRACTION: 2 (of 4) narrow column of contrast PHARYNGEAL RESIDUE: 2 (of 4) collection of residue ESOPHAGEAL BOLUS CLEARANCE: could not view BOLUS RESIDUE SCALE (BRS): BRS SCORE: 4 (of 6) BRS SCORE DESCRIPTION: residue in valleculae and posterior pharyngeal wall OBJECTIVE ASSESSMENT OF SWALLOW FUNCTION (SEVERITY GRADING): DYSPHAGIA SEVERITY RATING SCALE (DSRS): DSRS CLASSIFICATION:3 (mild-moderate) DSRS CLASSIFICATION CHARACTERISTICS: mild-moderate dysphagia?potential for aspiration exists but is diminished by specific swallow techniques and a modified diet; time for eating is significantly increased; thus supplemental nutrition may be indicated. DYSPHAGIA CLASSIFICATION SCALE (DCS): DCS CLASSIFICATION: D2 (moderate) DCS CLASSIFICATION CHARACTERISTICS: mild to moderate stasis, there can be restrictions of up to two consistencies OBJECTIVE ASSESSMENT OF SWALLOW FUNCTION (QUALITATIVE): ORAL PREPARATORY PHASE: sufficient mastication rate and quality; sufficient anterior oral containment during oral manipulation; disorganized management of breathing / bolus formation with disrupted E ? S ? E pattern ORAL TRANSITIONAL PHASE: overall sufficient bolus transportation; no lingual discoordination (no tremor / undulations); sufficient oral clearance with the exception of consistent collections of semisolids and solids located at the posterior oral / superior pharyngeal structures; sufficient oral containment across textures with no presence of premature posterior bolus loss PHARYNGEAL PHASE: age appropriate pharyngeal phase synchrony, though this may worsen over longer intake durations with increased oxygenation demands; reduced hyolaryngeal excursion and duration with sufficient / consistent laryngeal vestibule pressure generated to expel penetrated material; pharyngeal dysmotility most prominently with solids and semisolids with consolidation within the vallecula and superior pharyngeal wall / soft palate; mild velopharyngeal insufficiency without nasoregurgitation, with trace column of contrast / air between soft palate and pharyngeal wall ESOPHAGEAL PHASE: no obvious esophageal phase abnormalities observed. CONTRIBUTING / COMPLICATING FACTORS AND NOTABLE FINDINGS: increased oxygenation demands from baseline (4L/min via nasal cannula at baseline; currently 6L/min via nasal cannula) increasing risk for disruption in E ? S ? E pattern at later stages of meals, which in turn will increase his risk for aspiration. RESPONSE TO STRATEGIES: all deficits managed successfully with reduction in bolus rate / volume adjustments, use of straws, INTERVENTION RECOMMENDATIONS AND CONSIDERATIONS: The Patient would benefit from continued skilled speech-language intervention targeting diet texture management and training / implementation of recommended compensatory strategies; POST ASSESSMENT EDUCATION: The results and recommendations were discussed with the Patient immediately following MBS completion, with the Patient verbalizing understanding and agreement with all recommendations and education provided. DIET TEXTURE RECOMMENDATIONS: Will recommend a mechanical soft textured (IDDSI: 5), thin liquid diet (IDDSI: 0) diet RECOMMENDED COMPENSATORY STRATEGIES: Distant supervision, reduced bolus volume / rate of ingestion, liquid chaser at reasonable intervals, straws with all liquids, seated upright at 90 degrees during PO intake, remain upright for 30-60 minutes post meal, IMAGE COUNT: 1120 Eduar Grayson M.A., [employer], CBIS MBSImP Certified, LSVT Certified [facility] Speech-Language Pathology Department Email: [email or web address]
--- NOTE | 2020-03-22 12:07 | PN_ITS ---
<Xena Hernandez - Last Filed: 03/22/20 12:11> Subjective: Patient seen and examined. Feels breathing is improved this morning however continues to have increased shortness of breath with minimal movement. No acute events overnight. Denies cough, fever, chills. - Physical Exam Vitals/I&O's: Vital Signs Temp Pulse Resp BP Pulse Ox 98.3 F 94 18 119/73 93 03/22/20 08:21 03/22/20 08:21 03/22/20 08:21 03/22/20 08:21 03/22/20 10:53 Oxygen Flow Rate (L/min) [ 0 AMBULATING on Room Air] Oxygen Flow Rate (L/min) [ 6 AMBULATION with Oxygen] Oxygen Flow Rate (L/min) 5 Oxygen Delivery Method Nasal Cannula Weight: 130 lb 11.746 oz Body Mass Index (BMI) 20.0 Intake and Output for Last 24 Hours 03/20/20 03/21/20 03/22/20 23:59 23:59 23:59 Intake Total 777 / 777 1612.5 / 1612.5 432.5 / 432.5 Output Total 2185 / 2185 1300 / 1300 200 / 200 Balance -1408 / -1408 312.5 / 312.5 232.5 / 232.5 General: Alert, Oriented x3, Cooperative HEENT: Atraumatic, PERRLA, EOMI, Normocephalic Oral: Dry Mucosa Neck: Supple, No JVD, Negative Carotid Bruits Lungs: Clear to auscultation, Diminished Cardiovascular: Regular rate, Regular Rhythm, Normal S1, Normal S2, No murmurs Abdomen: Bowel Sounds Present, Soft, Non Tender, Non-Distended Extremities: No clubbing, No cyanosis, No edema, Capillary Refill Less than 3 Seconds Skin: No rashes, No breakdown Musculoskeletal: No Tenderness to Palpation of Joints or Extremities Neurological: Cranial nerves II-XII grossly intact, Neuro grossly intact Psych/Mental Status: Normal Affect, Appropriate Microbiology Past 72 Hours 03/16/20 10:00 Sputum, Expectorated/Coughed Gram Stain - Final 03/16/20 10:00 Sputum, Expectorated/Coughed Respiratory Culture - Final Presumptive C albicans Current Medications Acetaminophen (Tylenol) 650 mg PO Q6H PRN PRN PRN Reason: Pain Score 1-10/Temp > 100.7 F Last Admin: 03/20/20 10:11 Dose: 650 mg Documented by: Albuterol/Ipratropium (Duoneb) 3 ml INHALATION Q4H.RT [facility] Last Admin: 03/22/20 11:27 Dose: 3 ml Documented by: Bisacodyl (Dulcolax) 5 mg PO DAILY PRN PRN PRN Reason: Constipation Last Admin: 03/21/20 09:13 Dose: 5 mg Documented by: Cholecalciferol (Vitamin D (25mcg)) 1,000 unit PO DAILY [facility] Last Admin: 03/22/20 08:24 Dose: 1,000 unit Documented by: Enoxaparin Sodium (Lovenox) 40 mg SC DAILY [facility] Last Admin: 03/22/20 08:23 Dose: 40 mg Documented by: Furosemide (Lasix) 40 mg PO DAILY [facility] Last Admin: 03/22/20 08:24 Dose: 40 mg Documented by: Guaifenesin (Robitussin) 20 ml PO Q4H PRN PRN PRN Reason: COUGH Last Admin: 03/17/20 21:42 Dose: 20 ml Documented by: Sodium Chloride () 250 mls @ 15 mls/hr IV .[id number] PRN PRN Reason: Saline Flush Last Infusion: 03/22/20 11:27 Dose: Infused Documented by: Meropenem 1 gm/ Sodium (Chloride) 120 mls @ 33 mls/hr IV Q8 [facility] Stop: 03/22/20 22:01 Last Infusion: 03/22/20 09:13 Dose: Infused Documented by: Methylprednisolone (Solu-Medrol) 40 mg IV Q8 [facility] Last Admin: 03/22/20 05:17 Dose: 40 mg Documented by: Ondansetron HCl (Zofran) 4 mg IV Q8H PRN PRN PRN Reason: NAUSEA/VOMITING Polyethylene Glycol (Miralax) 17 gm PO DAILY PRN PRN PRN Reason: Constipation Last Admin: 03/21/20 09:13 Dose: 17 gm Documented by: Sodium Chloride () 10 - 40 ml IV UD PRN PRN Reason: SALINE FLUSH Last Admin: 03/22/20 05:17 Dose: 10 ml Documented by: Medical Necessity - Tobacco Use Tobacco Use: Non-smoker Assessment/Plan 1. Acute on chronic combined hypoxic and hypercapnic respiratory failure secondary to severe COPD with exacerbation and bilateral lower lobe pneumonia- Pulmonary medicine following. Continue supplement oxygen to maintain O2 at or above 90%. BiPAP nightly and PRN. IV Meropenem with stop date 03/22. Albuterol and duoneb aerosols. Continue IV Solu-Medrol and return to prednisone when improved. Feel a palliative consult would be appropriate. Patient not amenable at this time. Plan to continue IV steroids as scheduled today with further taper tomorrow as patient continues to have increased shortness of breath with minimal movement. 2. Heart failure with preserved ejection fraction-echocardiogram September 2019 demonstrates an EF of 55%, stage I diastolic dysfunction, moderate pulmonary hypertension, mean aortic valve gradient 23 mmHg. Continue oral Lasix regimen. 3. Dysphagia-history of strictures. Speech therapy consulted. Continue dietary modifications per speech therapy recommendations. Cookie swallow scheduled. 4. Hypertension-stable, continue amlodipine, losartan regimen. 5. History of right lower lobe lung cancer-pulmonary follow-up. 6. History of aortic stenosis-stable per echo September 2019. 7. 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 8. History of tobacco dependence-in remission. 9. GERD- on famotidine. 10. Depression-continue paroxetine regimen. DVT prophylaxis- Lovenox sc This patient was seen by CAITLIN Andrade under the supervision of Dr. Walker. <Enrrique Walker - Last Filed: 03/22/20 13:33> Subjective: short of breath after having just stood up to urinate. - Physical Exam Vitals/I&O's: Vital Signs Temp Pulse Resp BP Pulse Ox 36.8 C 94 18 119/73 93 03/22/20 08:21 03/22/20 08:21 03/22/20 08:21 03/22/20 08:21 03/22/20 10:53 Oxygen Flow Rate (L/min) [ 0 AMBULATING on Room Air] Oxygen Flow Rate (L/min) [ 6 AMBULATION with Oxygen] Oxygen Flow Rate (L/min) 5 Oxygen Delivery Method Nasal Cannula Weight: 59.3 kg Body Mass Index (BMI) 20.0 Intake and Output for Last 24 Hours 03/20/20 03/21/20 03/22/20 23:59 23:59 23:59 Intake Total 777 / 777 1612.5 / 1612.5 432.5 / 432.5 Output Total 2185 / 2185 1300 / 1300 475 / 475 Balance -1408 / -1408 312.5 / 312.5 -42.5 / -42.5 General: Alert, Cooperative, - HEENT: Atraumatic, Normocephalic Lungs: Clear to auscultation, Diminished Cardiovascular: Regular rate, Regular Rhythm, Normal S1, Normal S2 Abdomen: Bowel Sounds Present, Soft, Non Tender, Non-Distended Extremities: No edema, No Calf Tenderness Skin: No rashes, No breakdown Psych/Mental Status: Normal Affect, Appropriate Current Medications Acetaminophen (Tylenol) 650 mg PO Q6H PRN PRN PRN Reason: Pain Score 1-10/Temp > 100.7 F Last Admin: 03/20/20 10:11 Dose: 650 mg Documented by: Albuterol/Ipratropium (Duoneb) 3 ml INHALATION Q4H.RT [facility] Last Admin: 03/22/20 11:27 Dose: 3 ml Documented by: Bisacodyl (Dulcolax) 5 mg PO DAILY PRN PRN PRN Reason: Constipation Last Admin: 03/21/20 09:13 Dose: 5 mg Documented by: Cholecalciferol (Vitamin D (25mcg)) 1,000 unit PO DAILY [facility] Last Admin: 03/22/20 08:24 Dose: 1,000 unit Documented by: Enoxaparin Sodium (Lovenox) 40 mg SC DAILY [facility] Last Admin: 03/22/20 08:23 Dose: 40 mg Documented by: Furosemide (Lasix) 40 mg PO DAILY [facility] Last Admin: 03/22/20 08:24 Dose: 40 mg Documented by: Guaifenesin (Robitussin) 20 ml PO Q4H PRN PRN PRN Reason: COUGH Last Admin: 03/17/20 21:42 Dose: 20 ml Documented by: Sodium Chloride () 250 mls @ 15 mls/hr IV .[id number] PRN PRN Reason: Saline Flush Last Infusion: 03/22/20 11:27 Dose: Infused Documented by: Meropenem 1 gm/ Sodium (Chloride) 120 mls @ 33 mls/hr IV Q8 [facility] Stop: 03/22/20 22:01 Last Infusion: 03/22/20 09:13 Dose: Infused Documented by: Methylprednisolone (Solu-Medrol) 40 mg IV Q8 [facility] Last Admin: 03/22/20 05:17 Dose: 40 mg Documented by: Ondansetron HCl (Zofran) 4 mg IV Q8H PRN PRN PRN Reason: NAUSEA/VOMITING Polyethylene Glycol (Miralax) 17 gm PO DAILY PRN PRN PRN Reason: Constipation Last Admin: 03/21/20 09:13 Dose: 17 gm Documented by: Sodium Chloride () 10 - 40 ml IV UD PRN PRN Reason: SALINE FLUSH Last Admin: 03/22/20 05:17 Dose: 10 ml Documented by: Assessment/Plan Patient seen and examined independently. Data reviewed. I agree with the above note by the nurse practitioner. 1. AECOPD: continue methylpred, BDs 2. Acute on chronic hypoxic and hypercapnic respiratory failure: wean oxygen as tolerated 3. pneumonia, presumed gram negative: meropenem Advanced care planning, spent an additional 20 minutes outside of the history and physical discussing advanced directives. I spoke to the patient directly about intubation and how effective that he would require to be very difficult for him to come off of it given his advanced stage COPD. Did tell him about possibilities of tracheostomy and LTAC if he were to ever be intubated. I did talk to him about CPR as well and did advise against it in the event of cardiac arrest. He wishes to think about it and may discuss it with family further in the future. Patient will continue to be full CODE STATUS for now. Inpatient E&M: 91490 Subs Hosp L2 Procedures: 14000 Advncd Care Plan 30 Min
--- NOTE | 2020-03-22 12:52 | PN_ITS ---
Subjective: Patient did okay overnight. Patient did have significant dyspnea with exertion prior to my evaluation. Patient had his pulse ox checked and was noted to be 89% on 5 L nasal cannula. Patient did report that he normally uses 6 L nasal cannula with exertion. Patient overall feels subjectively improved. Patient was scheduled to have a swallow evaluation later today. - Physical Exam Vitals/I&O's: Vital Signs Temp Pulse Resp BP Pulse Ox 36.8 C 94 18 119/73 93 03/22/20 08:21 03/22/20 08:21 03/22/20 08:21 03/22/20 08:21 03/22/20 10:53 Oxygen Flow Rate (L/min) [ 0 AMBULATING on Room Air] Oxygen Flow Rate (L/min) [ 6 AMBULATION with Oxygen] Oxygen Flow Rate (L/min) 5 Oxygen Delivery Method Nasal Cannula Weight: 59.3 kg Body Mass Index (BMI) 20.0 Intake and Output for Last 24 Hours 03/20/20 03/21/20 03/22/20 23:59 23:59 23:59 Intake Total 777 / 777 1612.5 / 1612.5 432.5 / 432.5 Output Total 2185 / 2185 1300 / 1300 200 / 200 Balance -1408 / -1408 312.5 / 312.5 232.5 / 232.5 General: Alert, Oriented x3, Cooperative, - - Moderate respiratory distress on presentation. Appears stated age. HEENT: Atraumatic, PERRLA, EOMI, Normocephalic, - - No scleral icterus or injection noted Oral: Moist Mucosa, No Gingival or Mucosal Lesions/ Ulcerations Neck: Supple, No JVD, No Nodes, Trachea Midline Lungs: No rhonchi, No rales, Diminished, Wheezes Cardiovascular: Normal S1, Normal S2, Murmur - Grade 2 out of 6 systolic ejection murmur at the apex, Tachycardic Abdomen: Bowel Sounds Present, Soft, Non Tender, Non-Distended Extremities: No cyanosis, No edema, Clubbing Skin: No rashes, No breakdown, - - Dermal atrophy Musculoskeletal: No Tenderness to Palpation of Joints or Extremities Lymphatic: No Cervical, Supraclavicular, or Inguinal Adenopathy Neurological: Cranial nerves II-XII grossly intact, Neuro grossly intact, Motor Exam 5/5 strength throughout Psych/Mental Status: Anxious Current Medications Acetaminophen (Tylenol) 650 mg PO Q6H PRN PRN PRN Reason: Pain Score 1-10/Temp > 100.7 F Last Admin: 03/20/20 10:11 Dose: 650 mg Documented by: Albuterol/Ipratropium (Duoneb) 3 ml INHALATION Q4H.RT [facility] Last Admin: 03/22/20 11:27 Dose: 3 ml Documented by: Bisacodyl (Dulcolax) 5 mg PO DAILY PRN PRN PRN Reason: Constipation Last Admin: 03/21/20 09:13 Dose: 5 mg Documented by: Cholecalciferol (Vitamin D (25mcg)) 1,000 unit PO DAILY [facility] Last Admin: 03/22/20 08:24 Dose: 1,000 unit Documented by: Enoxaparin Sodium (Lovenox) 40 mg SC DAILY [facility] Last Admin: 03/22/20 08:23 Dose: 40 mg Documented by: Furosemide (Lasix) 40 mg PO DAILY [facility] Last Admin: 03/22/20 08:24 Dose: 40 mg Documented by: Guaifenesin (Robitussin) 20 ml PO Q4H PRN PRN PRN Reason: COUGH Last Admin: 03/17/20 21:42 Dose: 20 ml Documented by: Sodium Chloride () 250 mls @ 15 mls/hr IV .[id number] PRN PRN Reason: Saline Flush Last Infusion: 03/22/20 11:27 Dose: Infused Documented by: Meropenem 1 gm/ Sodium (Chloride) 120 mls @ 33 mls/hr IV Q8 [facility] Stop: 03/22/20 22:01 Last Infusion: 03/22/20 09:13 Dose: Infused Documented by: Methylprednisolone (Solu-Medrol) 40 mg IV Q8 [facility] Last Admin: 03/22/20 05:17 Dose: 40 mg Documented by: Ondansetron HCl (Zofran) 4 mg IV Q8H PRN PRN PRN Reason: NAUSEA/VOMITING Polyethylene Glycol (Miralax) 17 gm PO DAILY PRN PRN PRN Reason: Constipation Last Admin: 03/21/20 09:13 Dose: 17 gm Documented by: Sodium Chloride () 10 - 40 ml IV UD PRN PRN Reason: SALINE FLUSH Last Admin: 03/22/20 05:17 Dose: 10 ml Documented by: Medical Necessity - Tobacco Use Tobacco Use: Non-smoker Assessment/Plan RECOMMENDATIONS: 1. Continue antimicrobials, scheduled bronchodilators. Okay to transition to p.o. steroids if swallow passed and wean over 12 to 14 days 2. Continue BiPAP therapy/AVAPS nightly. 3. Wean supplemental oxygen to maintain saturations at or above 90%. 4. Dietary restrictions per speech therapy recommendations. 5. Encourage incentive spirometer use and mobilize patient as tolerated. 6. Patient can likely be discharged if able to tolerate 6 L on ambulation IMPRESSIONS: 1. Acute on chronic hypoxemic respiratory failure Appears to be secondary to bilateral lower lobe pneumonia. Agree with continuing antimicrobials, with plans to complete a 7-day treatment course. Continue scheduled bronchodilators along with IV steroids for now. The patient does have a baseline 4 L/min oxygen requirement and regularly utilizes a trilogy noninvasive ventilator in his home environment. Recommend weaning supplemental oxygen as tolerated to maintain saturations at or above 90%. BiPAP or AVAPS can be utilized on a nightly basis. Given the patient's limited respiratory reserve, I do anticipate a prolonged recovery period. Once the patient is able to ambulate on 6 L/min or less of supplemental oxygen, he can be discharged home with outpatient pulmonary follow-up. Patient's prednisone, wean over the next 12 to 14 days. 2. History of aortic stenosis/second-degree AV block/paroxysmal atrial fibrillation/pulmonary hypertension Complicates care, management, recovery and prognosis. Continue home medications as tolerated. Inpatient E&M: [id number] [facility] L2
[2020-03-22] MEDS: Acetaminophen 325 MG Tablet 650 MG PO (13:49)
[2020-03-23] VITALS (20 sets, daily range): BP systolic 102–116; BP diastolic 64–78; PULSE 89–112; RESP 12–27; TEMP 36.5–36.8; O2SAT 96–100
[2020-03-23] MEDS: Ipratropium/Albuterol Sulfate 3 ML AMPUL.NEB INHALATION ×4 (02:40→19:05)
[2020-03-23] MEDS: 0.9% Saline Lock 10 ML Syringe IV ×3 (05:18→21:13)
[2020-03-23] MEDS: Bisacodyl 5 MG Tablet PO (08:49)
[2020-03-23] MEDS: Enoxaparin 40 MG/0.4 ML Syringe SC (09:21)
[2020-03-23] MEDS: Furosemide 40 MG Tablet PO (09:21)
[2020-03-23] MEDS: Acetaminophen 325 MG Tablet 650 MG PO (11:23)
--- NOTE | 2020-03-23 11:30 | PCM.PROGNOTE ---
<Xena Hernandez - Last Filed: 03/23/20 11:35> Subjective: Patient seen and examined. Ambulated to restroom with occupational therapy. Oxygenation dropped briefly to 86% on 6 L. Occupational Therapy reports O2 quickly improved with rest. Patient states he had increased shortness of breath with ambulation to the restroom however overall feels he is improving. - Physical Exam Vitals/I&O's: Vital Signs Temp Pulse Resp BP Pulse Ox 98.2 F 102 H 20 H 102/64 98 03/23/20 11:15 03/23/20 11:15 03/23/20 11:15 03/23/20 11:15 03/23/20 11:15 Oxygen Flow Rate (L/min) [ 0 AMBULATING on Room Air] Oxygen Flow Rate (L/min) [ 6 AMBULATION with Oxygen] Oxygen Flow Rate (L/min) 5 Oxygen Delivery Method Nasal Cannula Weight: 128 lb 1.417 oz Body Mass Index (BMI) 20.0 Intake and Output for Last 24 Hours 03/21/20 03/22/20 03/23/20 23:59 23:59 23:59 Intake Total 1612.5 / 1612.5 1271.7 / 1271.7 90.8 / 90.8 Output Total 1300 / 1300 1255 / 1255 325 / 325 Balance 312.5 / 312.5 16.7 / 16.7 -234.2 / -234.2 General: Alert, Oriented x3, Cooperative HEENT: Atraumatic, PERRLA, EOMI, Normocephalic Oral: Dry Mucosa Neck: Supple, No JVD, Negative Carotid Bruits Lungs: Clear to auscultation, Diminished Cardiovascular: Regular rate, No murmurs, - - Tachycardic with activity Abdomen: Bowel Sounds Present, Soft, Non Tender, Non-Distended Extremities: No clubbing, No cyanosis, No edema, Capillary Refill Less than 3 Seconds Skin: No rashes, No breakdown Musculoskeletal: No Tenderness to Palpation of Joints or Extremities Neurological: Cranial nerves II-XII grossly intact, Neuro grossly intact Psych/Mental Status: Normal Affect, Appropriate Current Medications Acetaminophen (Tylenol) 650 mg PO Q6H PRN PRN PRN Reason: Pain Score 1-10/Temp > 100.7 F Last Admin: 08/18/20 11:23 Dose: 650 mg Documented by: Albuterol/Ipratropium (Duoneb) 3 ml INHALATION Q4H.RT [facility] Last Admin: 03/23/20 10:37 Dose: 3 ml Documented by: Bisacodyl (Dulcolax) 5 mg PO DAILY PRN PRN PRN Reason: Constipation Last Admin: 03/23/20 08:49 Dose: 5 mg Documented by: Cholecalciferol (Vitamin D (25mcg)) 1,000 unit PO DAILY [facility] Last Admin: 03/23/20 09:21 Dose: 1,000 unit Documented by: Enoxaparin Sodium (Lovenox) 40 mg SC DAILY [facility] Last Admin: 03/23/20 09:21 Dose: 40 mg Documented by: Furosemide (Lasix) 40 mg PO DAILY [facility] Last Admin: 03/23/20 09:21 Dose: 40 mg Documented by: Guaifenesin (Robitussin) 20 ml PO Q4H PRN PRN PRN Reason: COUGH Last Admin: 03/17/20 21:42 Dose: 20 ml Documented by: Sodium Chloride () 250 mls @ 15 mls/hr IV .[id number] PRN PRN Reason: Saline Flush Last Infusion: 03/22/20 11:27 Dose: Infused Documented by: Methylprednisolone (Solu-Medrol) 40 mg IV BID [facility] Ondansetron HCl (Zofran) 4 mg IV Q8H PRN PRN PRN Reason: NAUSEA/VOMITING Polyethylene Glycol (Miralax) 17 gm PO DAILY PRN PRN PRN Reason: Constipation Last Admin: 03/21/20 09:13 Dose: 17 gm Documented by: Sodium Chloride () 10 - 40 ml IV UD PRN PRN Reason: SALINE FLUSH Last Admin: 03/23/20 09:21 Dose: 10 ml Documented by: Medical Necessity - Tobacco Use Tobacco Use: Non-smoker Assessment/Plan 1. Acute on chronic combined hypoxic and hypercapnic respiratory failure secondary to severe COPD with exacerbation and bilateral lower lobe pneumonia-Pulmonary medicine following. Continue supplement oxygen to maintain O2 at or above 90%. BiPAP nightly and PRN. Completed course of IV meropenem. Albuterol and Duoneb aerosols. Reduce IV Solu-Medrol to 40 mg twice daily with plans for transition to prednisone tomorrow. Feel a palliative consult would be appropriate. Patient not amenable at this time. Possible discharge tomorrow if patient tolerates taper of steroids. Will need outpatient follow-up with pulmonary medicine. 2. Heart failure with preserved ejection fraction-echocardiogram September 2019 demonstrates an EF of 55%, stage I diastolic dysfunction, moderate pulmonary hypertension, mean aortic valve gradient 23 mmHg. Continue oral Lasix regimen. 3. Mild to moderate oropharyngeal dysphagia-history of strictures. Speech therapy consulted. Continue dietary modifications per speech therapy recommendations. Patient underwent modified barium swallow which demonstrated mild to moderate oropharyngeal dysphagia. Continue dietary modifications per speech therapy recommendations. 4. Hypertension-stable, continue amlodipine, losartan regimen. 5. History of right lower lobe lung cancer-pulmonary follow-up. 6. History of aortic stenosis-stable per echo September 2019. 7. 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 8. History of tobacco dependence-in remission. 9. GERD- on famotidine. 10. Depression-continue paroxetine regimen. DVT prophylaxis- Lovenox sc This patient was seen by CAITLIN Andrade under the supervision of Dr. Walker. <Enrrique Walker - Last Filed: 03/23/20 15:11> - Physical Exam Vitals/I&O's: Vital Signs Temp Pulse Resp BP Pulse Ox 36.8 C 102 H 20 H 102/64 97 03/23/20 11:15 03/23/20 11:15 03/23/20 11:15 03/23/20 11:15 03/23/20 14:44 Oxygen Flow Rate (L/min) [ 0 AMBULATING on Room Air] Oxygen Flow Rate (L/min) [ 6 AMBULATION with Oxygen] Oxygen Flow Rate (L/min) 5 Oxygen Delivery Method Nasal Cannula Weight: 58.1 kg Body Mass Index (BMI) 20.0 Intake and Output for Last 24 Hours 03/21/20 03/22/20 03/23/20 23:59 23:59 23:59 Intake Total 1612.5 / 1612.5 1271.7 / 1271.7 290.8 / 290.8 Output Total 1300 / 1300 1255 / 1255 1050 / 1050 Balance 312.5 / 312.5 16.7 / 16.7 -759.2 / -759.2 General: Alert, Cooperative HEENT: Atraumatic, Normocephalic Oral: Dry Mucosa Lungs: Clear to auscultation, Diminished Cardiovascular: Regular rate, No murmurs, - Abdomen: Bowel Sounds Present, Soft, Non Tender, Non-Distended Extremities: No clubbing, No cyanosis, No edema, Capillary Refill Less than 3 Seconds Skin: No rashes, No breakdown Musculoskeletal: No Tenderness to Palpation of Joints or Extremities Neurological: Cranial nerves II-XII grossly intact, Neuro grossly intact Psych/Mental Status: Normal Affect, Appropriate Current Medications Acetaminophen (Tylenol) 650 mg PO Q6H PRN PRN PRN Reason: Pain Score 1-10/Temp > 100.7 F Last Admin: 03/23/20 11:23 Dose: 650 mg Documented by: Albuterol/Ipratropium (Duoneb) 3 ml INHALATION Q4H.RT [facility] Last Admin: 03/23/20 10:37 Dose: 3 ml Documented by: Bisacodyl (Dulcolax) 5 mg PO DAILY PRN PRN PRN Reason: Constipation Last Admin: 03/23/20 08:49 Dose: 5 mg Documented by: Cholecalciferol (Vitamin D (25mcg)) 1,000 unit PO DAILY [facility] Last Admin: 03/23/20 09:21 Dose: 1,000 unit Documented by: Enoxaparin Sodium (Lovenox) 40 mg SC DAILY [facility] Last Admin: 03/23/20 09:21 Dose: 40 mg Documented by: Furosemide (Lasix) 40 mg PO DAILY [facility] Last Admin: 03/23/20 09:21 Dose: 40 mg Documented by: Guaifenesin (Robitussin) 20 ml PO Q4H PRN PRN PRN Reason: COUGH Last Admin: 03/17/20 21:42 Dose: 20 ml Documented by: Sodium Chloride () 250 mls @ 15 mls/hr IV .[id number] PRN PRN Reason: Saline Flush Last Infusion: 03/22/20 11:27 Dose: Infused Documented by: Methylprednisolone (Solu-Medrol) 40 mg IV BID [facility] Ondansetron HCl (Zofran) 4 mg IV Q8H PRN PRN PRN Reason: NAUSEA/VOMITING Polyethylene Glycol (Miralax) 17 gm PO DAILY PRN PRN PRN Reason: Constipation Last Admin: 03/21/20 09:13 Dose: 17 gm Documented by: Sodium Chloride () 10 - 40 ml IV UD PRN PRN Reason: SALINE FLUSH Last Admin: 03/23/20 09:21 Dose: 10 ml Documented by: Assessment/Plan Patient seen and examined independently. Data reviewed. I agree with the above note by the nurse practitioner. 1. AECOPD: continue methylpred, BDs 2. Acute on chronic hypoxic and hypercapnic respiratory failure: wean oxygen as tolerated 3. pneumonia, presumed gram negative: meropenem Inpatient E&M: 00755 Subs Hosp L2
--- NOTE | 2020-03-23 13:13 | PN_ITS ---
Subjective: The patient was seen and examined at the bedside this morning. Events from the last 24 hours have been reviewed. The patient is currently afebrile, hemodynamically stable and maintaining appropriate oxygen saturations on 5 L/min via nasal cannula. The patient reportedly desaturated to 86% on 6 L/min when working with therapy. Despite this, he does report overall feeling better from a respiratory perspective. Objective: The patient's most recent lab work, culture data and imaging studies have all been personally reviewed. Strep and urine Legionella antigens were negative. Respiratory viral panel was negative. Sputum culture appears to be normal respiratory james. - Physical Exam Vitals/I&O's: Vital Signs Temp Pulse Resp BP Pulse Ox 98.2 F 102 H 20 H 102/64 98 03/23/20 11:15 03/23/20 11:15 03/23/20 11:15 03/23/20 11:15 03/23/20 11:15 Oxygen Flow Rate (L/min) [ 0 AMBULATING on Room Air] Oxygen Flow Rate (L/min) [ 6 AMBULATION with Oxygen] Oxygen Flow Rate (L/min) 5 Oxygen Delivery Method Nasal Cannula Weight: 128 lb 1.417 oz Body Mass Index (BMI) 20.0 Intake and Output for Last 24 Hours 03/21/20 03/22/20 03/23/20 23:59 23:59 23:59 Intake Total 1612.5 / 1612.5 1271.7 / 1271.7 290.8 / 290.8 Output Total 1300 / 1300 1255 / 1255 1050 / 1050 Balance 312.5 / 312.5 16.7 / 16.7 -759.2 / -759.2 General: Alert, Cooperative, No apparent distress, - - Sitting in bedside recliner. HEENT: Atraumatic, Normocephalic Oral: No Gingival or Mucosal Lesions/ Ulcerations Neck: Supple, No Nodes, Trachea Midline Lungs: Diminished Cardiovascular: Normal S1, Normal S2, Murmur, Tachycardic Abdomen: Bowel Sounds Present, Soft, Non Tender Extremities: No clubbing, No cyanosis, No edema Skin: No breakdown Musculoskeletal: No Tenderness to Palpation of Joints or Extremities Lymphatic: No Cervical, Supraclavicular, or Inguinal Adenopathy Neurological: Cranial nerves II-XII grossly intact, Neuro grossly intact Psych/Mental Status: Normal Affect, Appropriate Clinical Impression(s) from Imaging Studies Chest X-Ray 03/16/20 06:17 IMPRESSION: The pacemaker leads are in proper position. There are bilateral lower lobe pulmonary infiltrates worse on the RIGHT. There is a small RIGHT pleural effusion. There is NO pneumothorax. Normal size heart. Electronically Signed: Cole Salas MD at 7:41 EDT , Service support , Chest X-Ray 03/17/20 13:51 IMPRESSION: Progressive infiltration in the lower lobes worse on the right side with small bilateral pleural effusions. Electronically Signed: Caleb Hartman, at 15:22 EDT , Service support , Chest X-Ray 03/18/20 05:55 IMPRESSION: Residual bibasilar infiltrates although there has been mild improvement as compared to prior study. Electronically Signed: Caleb Hartman, at 8:22 EDT , Service support , Chest CTA 03/19/20 11:19 IMPRESSION: No evidence of pulmonary embolus. Diffuse emphysematous changes worse in the upper lobes. Small bilateral effusions with bibasilar infiltration and/or atelectasis. Interval decrease in size of the right lower lobe mass measuring 2 cm x 2 cm. Electronically Signed: Caleb Hartman, at 12:48 EDT , Service support , Current Medications Acetaminophen (Tylenol) 650 mg PO Q6H PRN PRN PRN Reason: Pain Score 1-10/Temp > 100.7 F Last Admin: 03/23/20 11:23 Dose: 650 mg Documented by: Albuterol/Ipratropium (Duoneb) 3 ml INHALATION Q4H.RT [facility] Last Admin: 03/23/20 10:37 Dose: 3 ml Documented by: Bisacodyl (Dulcolax) 5 mg PO DAILY PRN PRN PRN Reason: Constipation Last Admin: 03/23/20 08:49 Dose: 5 mg Documented by: Cholecalciferol (Vitamin D (25mcg)) 1,000 unit PO DAILY [facility] Last Admin: 03/23/20 09:21 Dose: 1,000 unit Documented by: Enoxaparin Sodium (Lovenox) 40 mg SC DAILY [facility] Last Admin: 03/23/20 09:21 Dose: 40 mg Documented by: Furosemide (Lasix) 40 mg PO DAILY [facility] Last Admin: 03/23/20 09:21 Dose: 40 mg Documented by: Guaifenesin (Robitussin) 20 ml PO Q4H PRN PRN PRN Reason: COUGH Last Admin: 03/17/20 21:42 Dose: 20 ml Documented by: Sodium Chloride () 250 mls @ 15 mls/hr IV .[id number] PRN PRN Reason: Saline Flush Last Infusion: 03/22/20 11:27 Dose: Infused Documented by: Methylprednisolone (Solu-Medrol) 40 mg IV BID [facility] Ondansetron HCl (Zofran) 4 mg IV Q8H PRN PRN PRN Reason: NAUSEA/VOMITING Polyethylene Glycol (Miralax) 17 gm PO DAILY PRN PRN PRN Reason: Constipation Last Admin: 03/21/20 09:13 Dose: 17 gm Documented by: Sodium Chloride () 10 - 40 ml IV UD PRN PRN Reason: SALINE FLUSH Last Admin: 03/23/20 09:21 Dose: 10 ml Documented by: Medical Necessity - Tobacco Use Tobacco Use: Non-smoker Assessment/Plan RECOMMENDATIONS: 1. Continue scheduled bronchodilators and IV steroids. Plan for prednisone taper at discharge. 2. Continue BiPAP therapy/AVAPS nightly. 3. Wean supplemental oxygen to maintain saturations at or above 90%. 4. Dietary restrictions per speech therapy recommendations. 5. Encourage incentive spirometer use and mobilize patient as tolerated. 6. Perform walking oximetry study prior to consideration for discharge home. IMPRESSIONS: 1. Acute on chronic hypoxemic respiratory failure Appears to be secondary to bilateral lower lobe pneumonia. The patient has since completed a 7-day treatment course of antibiotics. Continue scheduled bronchodilators along with IV steroids for now. The patient does have a baseline 4 L/min oxygen requirement and regularly utilizes a trilogy noninvasive ventilator in his home environment. Recommend weaning supplemental oxygen as tolerated to maintain saturations at or above 90%. BiPAP or AVAPS can be utilized on a nightly basis. Given the patient's limited respiratory reserve, I do anticipate a prolonged recovery period. Once the patient is able to ambulate on 6 L/min or less of supplemental oxygen, he can be discharged home with outpatient pulmonary follow-up. Plan for prednisone taper at discharge as well. 2. History of aortic stenosis/second-degree AV block/paroxysmal atrial fibrillation/pulmonary hypertension Complicates care, management, recovery and prognosis. Continue home medications as tolerated. This note was generated with [employer] dictation software. It may contain incorrect words, spelling, and punctuation that were not noted in checking the note before signing. Inpatient E&M: 26255 Subs Hosp L2
[2020-03-24] VITALS (9 sets, daily range): BP systolic 110–125; BP diastolic 55–81; PULSE 93–100; RESP 18–24; TEMP 36.4–36.6; O2SAT 91–99
[2020-03-24 06:29] LABS: Hemoglobin 11.5 g/dL (13.0-16.5); Mean Corp Hgb Conc 29.5 g/dL (32-36); Mean Corpuscular Volume 98.5 fL (80-94); Mean Platelet Vol. 9.6 fl (6.2-12.0); Platelet Count 301 K/mm3 (150-450); RBC Distribution Width CV 13.1 % (11.6-14.6); RBC Distribution Width SD 47.2 fl (35.1-43.9); Red Blood Count 3.96 M/mm3 (4.6-6.2); White Blood Count 10.6 K/mm3 (4.4-11.0)
[2020-03-24 06:54] LABS: Anion Gap 0 (5-15); BUN 26 mg/dL (7-18); BUN/Creat Ratio 42.8 RATIO (10-20); Calcium,Total 8.9 mg/dL (8.5-10.1); Chloride 97 mmol/L (98-107); Creatinine, Serum 0.61 mg/dL (0.70-1.30); EST Glomerular Filtration Rate 135 mL/min (>60); Est Glom Filt Rate - Afr Amer 163 mL/min (>60); Estimated Creatinine Clearance 46.23 ml/min; Glucose 123 mg/dL (74-106); Potassium 4.8 mmol/L (3.5-5.1); Sodium Level 136 mmol/L (136-145)
[2020-03-24] MEDS: Ipratropium/Albuterol Sulfate 3 ML AMPUL.NEB INHALATION (07:15)
--- NOTE | 2020-03-24 09:09 | PN_ITS ---
Subjective: The patient was seen and examined at the bedside this morning. Events from the last 24 hours have been reviewed. The patient is currently afebrile, hemodynamically stable and maintaining appropriate oxygen saturations on 5 L/min via nasal cannula. The patient was able to ambulate to the bathroom and back to his recliner this morning. He continues to improve slowly. Objective: The patient's most recent lab work, culture data and imaging studies have all been personally reviewed. Strep and urine Legionella antigens were negative. Respiratory viral panel was negative. Sputum culture appears to be normal respiratory james. - Physical Exam Vitals/I&O's: Vital Signs Temp Pulse Resp BP Pulse Ox 97.9 F 95 24 H 125/80 H 99 03/24/20 06:25 03/24/20 07:17 03/24/20 07:17 03/24/20 06:25 03/24/20 07:14 Oxygen Flow Rate (L/min) [ 0 AMBULATING on Room Air] Oxygen Flow Rate (L/min) [ 6 AMBULATION with Oxygen] Oxygen Flow Rate (L/min) 6 Oxygen Delivery Method Nasal Cannula Weight: 128 lb 11.999 oz Body Mass Index (BMI) 20.0 Intake and Output for Last 24 Hours 03/22/20 03/23/20 03/24/20 23:59 23:59 23:59 Intake Total 1271.7 / 1271.7 410.8 / 410.8 50 / 50 Output Total 1255 / 1255 1600 / 1600 500 / 500 Balance 16.7 / 16.7 -1189.2 / -1189.2 -450 / -450 General: Alert, Cooperative, No apparent distress, - - Sitting in bedside recliner. HEENT: Atraumatic, Normocephalic Oral: No Gingival or Mucosal Lesions/ Ulcerations Neck: Supple, No Nodes, Trachea Midline Lungs: No rhonchi, No wheeze, No rales, Diminished Cardiovascular: Regular rate, Regular Rhythm, Murmur Abdomen: Bowel Sounds Present, Soft, Non Tender Extremities: No clubbing, No cyanosis, No edema Skin: No breakdown Musculoskeletal: No Tenderness to Palpation of Joints or Extremities Lymphatic: No Cervical, Supraclavicular, or Inguinal Adenopathy Neurological: Cranial nerves II-XII grossly intact, Neuro grossly intact Psych/Mental Status: Normal Affect, Appropriate Labs (Last 48 Hours) 03/24/20 03/24/20 06:20 06:20 WBC 10.6 RBC 3.96 L Hgb 11.5 L Hct 39.0 L MCV 98.5 H MCH 29.0 MCHC 29.5 L RDW Std Deviation 47.2 H RDW Coeff of Earline 13.1 Plt Count 301 MPV 9.6 Sodium 136 Potassium 4.8 Chloride 97 L Carbon Dioxide 39.0 H Anion Gap 0 L BUN 26 H Creatinine 0.61 L Estim Creat Clear Calc 46.23 Est GFR (MDRD) Af Amer 163 Est GFR (MDRD) Non-Af 135 BUN/Creatinine Ratio 42.8 H Glucose 123 H Calcium 8.9 Clinical Impression(s) from Imaging Studies Chest X-Ray 03/16/20 06:17 IMPRESSION: The pacemaker leads are in proper position. There are bilateral lower lobe pulmonary infiltrates worse on the RIGHT. There is a small RIGHT pleural effusion. There is NO pneumothorax. Normal size heart. Electronically Signed: Cole Salas MD at 7:41 EDT , Service support , Chest X-Ray 03/17/20 13:51 IMPRESSION: Progressive infiltration in the lower lobes worse on the right side with small bilateral pleural effusions. Electronically Signed: Caleb Hartman, at 15:22 EDT , Service support , Chest X-Ray 03/18/20 05:55 IMPRESSION: Residual bibasilar infiltrates although there has been mild improvement as compared to prior study. Electronically Signed: Caleb Hartman, at 8:22 EDT , Service support , Chest CTA 03/19/20 11:19 IMPRESSION: No evidence of pulmonary embolus. Diffuse emphysematous changes worse in the upper lobes. Small bilateral effusions with bibasilar infiltration and/or atelectasis. Interval decrease in size of the right lower lobe mass measuring 2 cm x 2 cm. Electronically Signed: Caleb Hartman, at 12:48 EDT , Service support , Current Medications Acetaminophen (Tylenol) 650 mg PO Q6H PRN PRN PRN Reason: Pain Score 1-10/Temp > 100.7 F Last Admin: 03/23/20 11:23 Dose: 650 mg Documented by: Albuterol/Ipratropium (Duoneb) 3 ml INHALATION Q4H.RT [facility] Last Admin: 03/24/20 07:15 Dose: 3 ml Documented by: Bisacodyl (Dulcolax) 5 mg PO DAILY PRN PRN PRN Reason: Constipation Last Admin: 03/23/20 08:49 Dose: 5 mg Documented by: Cholecalciferol (Vitamin D (25mcg)) 1,000 unit PO DAILY [facility] Last Admin: 03/23/20 09:21 Dose: 1,000 unit Documented by: Enoxaparin Sodium (Lovenox) 40 mg SC DAILY [facility] Last Admin: 03/23/20 09:21 Dose: 40 mg Documented by: Furosemide (Lasix) 40 mg PO DAILY [facility] Last Admin: 03/23/20 09:21 Dose: 40 mg Documented by: Guaifenesin (Robitussin) 20 ml PO Q4H PRN PRN PRN Reason: COUGH Last Admin: 03/17/20 21:42 Dose: 20 ml Documented by: Sodium Chloride () 250 mls @ 15 mls/hr IV .[id number] PRN PRN Reason: Saline Flush Last Infusion: 03/22/20 11:27 Dose: Infused Documented by: Ondansetron HCl (Zofran) 4 mg IV Q8H PRN PRN PRN Reason: NAUSEA/VOMITING Polyethylene Glycol (Miralax) 17 gm PO DAILY PRN PRN PRN Reason: Constipation Last Admin: 03/21/20 09:13 Dose: 17 gm Documented by: Prednisone () 40 mg PO DAILY@0800 [facility] Sodium Chloride () 10 - 40 ml IV UD PRN PRN Reason: SALINE FLUSH Last Admin: 03/23/20 21:13 Dose: 10 ml Documented by: Medical Necessity - Tobacco Use Tobacco Use: Non-smoker Assessment/Plan RECOMMENDATIONS: 1. Continue scheduled bronchodilators and IV steroids. Plan for prednisone taper at discharge. 2. Continue BiPAP therapy/AVAPS nightly. 3. Wean supplemental oxygen to maintain saturations at or above 90%. 4. Dietary restrictions per speech therapy recommendations. 5. Encourage incentive spirometer use and mobilize patient as tolerated. 6. Perform walking oximetry study prior to consideration for discharge home. 7. The patient did follow-up in the pulmonary medicine clinic within 2 weeks of discharge from the hospital. IMPRESSIONS: 1. Acute on chronic hypoxemic respiratory failure Appears to be secondary to bilateral lower lobe pneumonia. The patient has since completed a 7-day treatment course of antibiotics. Continue scheduled bronchodilators along with IV steroids for now. The patient does have a baseline 4 L/min oxygen requirement and regularly utilizes a trilogy noninvasive ventilator in his home environment. Recommend weaning supplemental oxygen as tolerated to maintain saturations at or above 90%. BiPAP or AVAPS can be utilized on a nightly basis. Given the patient's limited respiratory reserve, I do anticipate a prolonged recovery period. Once the patient is able to ambulate on 6 L/min or less of supplemental oxygen, he can be discharged home with outpatient pulmonary follow-up. Plan for prednisone taper at discharge as well. 2. History of aortic stenosis/second-degree AV block/paroxysmal atrial fibrillation/pulmonary hypertension Complicates care, management, recovery and prognosis. Continue home medications as tolerated. This note was generated with [employer] software. It may contain incorrect words, spelling, and punctuation that were not noted in checking the note before signing. Inpatient E&M: 06700 [facility] Hosp L2
[2020-03-24] MEDS: Furosemide 40 MG Tablet PO (09:15)
[2020-03-24] MEDS: Enoxaparin 40 MG/0.4 ML Syringe SC (09:15)
[2020-03-24] MEDS: predniSONE 20 MG Tablet 40 MG PO (09:15)
--- NOTE | 2020-03-24 10:03 | PCM.DC ---
- Discharge Diagnoses Current Active Problems: Current Active and Chronic Problems (Last Reviewed 03/16/20 @ 08:[address] Kelsey Wallace DO) Acute on chronic respiratory failure with hypoxia (Chronic) COPD exacerbation (Chronic) Hypokalemia (Chronic) You will use the following diet at home:: Cardiac Discharge Activity: Return to Normal Activity Call your doctor if you observe: Shortness of breath, Dizziness, Fainting spells, Chest pain Allergies/Adverse Reactions: Allergies ampicillin Allergy (Verified 03/16/20 06:18) Anaphylaxis azithromycin Allergy (Verified 03/16/20 06:18) Rash codeine Allergy (Verified 03/16/20 06:18) Rash penicillin G Allergy (Verified 03/16/20 06:18) Rash Sulfa (Sulfonamide Antibiotics) Allergy (Verified 03/16/20 06:18) Rash sulfamethoxazole [From Bactrim] Allergy (Verified 03/16/20 06:18) Rash trimethoprim [From Bactrim] Allergy (Verified 03/16/20 06:18) Rash Medications to take at Discharge Losartan Potassium 25 mg PO DAILY #0 06/12/17 Albuterol Aerosols [Ventolin Aerosols] 2.5 mg INHALATION Q4H PRN PRN #90 vial.neb. 07/17/19 Nitroglycerin (INPATIENT USE) [Nitrostat] 0.4 mg SUBLINGUAL Q5M PRN tab.subl 10/25/19 albuterol sulfate 90 mcg/actuation aerosol inhaler 2 puff INHALATION Q6H PRN #18 g 11/25/19 Acetaminophen [Tylenol] 650 mg PO Q6H PRN PRN 03/16/20 Cholecalciferol (VIT D3) [Vitamin D3] 1,000 unit PO DAILY 03/16/20 Fluticasone/Umeclidin/Vilanter [Trelegy Ellipta 100-62.5-25] 1 inhaler DAILY 03/16/20 Furosemide 40 mg PO DAILY 03/16/20 Ipratropium/Albuterol Sulfate [Duoneb] 3 ml INHALATION Q8 03/16/20 Polyethylene Glycol 3350 [Miralax] 17 gm PO DAILY PRN PRN 03/16/20 Prednisone See Taper PO DAILY #30 tab 03/24/20 The following prescriptions were given: Prednisone See Taper PO DAILY #30 tab Transmission Status: Pending to [facility] Primary Care Physician: Misael Valencia MD [Primary Care Provider] - Please follow up with your Primary Care Physician in: 1 Week Test Results: Test results from this visit will be discussed in further detail at your follow-up appointment, if applicable. Please Follow Up With: Shu Chahal NP-C When: 1-2 Weeks, please make appt prior to DC Please Follow Up With: Eliceo Garrison NP-C When: 1 Week Proposed Discharge Date: 03/24/20
--- NOTE | 2020-03-24 10:06 | PCM.DC.SUM ---
<Xena Hernandez - Last Filed: 03/24/20 10:16> Discharge Date and Diagnosis Date of Admission: 03/16/20 Date of Discharge: 03/24/20 - Primary Discharge Diagnosis Acute Problems: 1. Acute on chronic combined hypoxic and hypercapnic respiratory failure secondary to severe COPD with exacerbation and bilateral lower lobe pneumonia 2. Heart failure with preserved ejection fraction 3. Mild to moderate oropharyngeal dysphagia 4. Hypertension 5. History of right lower lobe lung cancer 6. History of aortic stenosis 7. Paroxysmal atrial flutter/Mobitz type II second 8. History of tobacco dependence 9. JAMIE 10. Depression - Secondary Discharge Diagnosis Chronic Problems: Chronic Problems (Last Reviewed 03/16/20 @ 08:[address] 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) FEV1 44% of predicted on PFT 12/15/2016 at [facility] Diastolic dysfunction (Chronic) 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) Essential hypertension (Chronic) Paroxysmal atrial flutter (Chronic) Non-rheumatic tricuspid valve insufficiency (Chronic) Aortic valve stenosis, nonrheumatic (Chronic) 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 Electronically Signed: Caleb Hartman, at 8:22 EDT , Service support , Chest CTA 03/19/20 11:19 IMPRESSION: No evidence of pulmonary embolus. Diffuse emphysematous changes worse in the upper lobes. Small bilateral effusions with bibasilar infiltration and/or atelectasis. Interval decrease in size of the right lower lobe mass measuring 2 cm x 2 cm. Electronically Signed: Caleb Hartman, at 12:48 EDT , Service support , Dr. Mccartney- Pulmonary medicine Operations: None Procedures: None Summary of Care Provided: The patient is a 84 year old M admitted 03/16/2020 due to shortness of breath. 1. Acute on chronic combined hypoxic and hypercapnic respiratory failure secondary to severe COPD with exacerbation and bilateral lower lobe pneumonia-Pulmonary medicine consulted during admission, patient follows with Dr. Mccartney as outpatient. Completed course of IV meropenem. Transition to oral prednisone taper at discharge. Patient wears trilogy at night. Continue home supplement oxygen to maintain O2 at or above 90%. On baseline home O2 requirements. Follow-up with pulmonary medicine in 1 to 2 weeks. 2. Heart failure with preserved ejection fraction-echocardiogram September 2019 demonstrates an EF of 55%, stage I diastolic dysfunction, moderate pulmonary hypertension, mean aortic valve gradient 23 mmHg. Continue oral Lasix regimen. 3. Mild to moderate oropharyngeal dysphagia-history of strictures. Speech therapy consulted. Continue dietary modifications per speech therapy recommendations. Patient underwent modified barium swallow which demonstrated mild to moderate oropharyngeal dysphagia. Continue dietary modifications per speech therapy recommendations. 4. Hypertension-stable, continue losartan regimen. Amlodipine discontinued due to hypotension. 5. History of right lower lobe lung cancer-pulmonary follow-up. 6. History of aortic stenosis-stable per echo September 2019. 7. 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 8. History of tobacco dependence-in remission. 9. GERD- on famotidine. 10. Depression-continue paroxetine regimen. General: Alert, Oriented x3, Cooperative HEENT: Atraumatic, PERRLA, EOMI, Normocephalic Oral: Dry Mucosa Neck: Supple, No JVD, Negative Carotid Bruits Lungs: Clear to auscultation, Diminished Cardiovascular: Regular rate, No murmurs, - - Tachycardic with activity Abdomen: Bowel Sounds Present, Soft, Non Tender, Non-Distended Extremities: No clubbing, No cyanosis, No edema, Capillary Refill Less than 3 Seconds Skin: No rashes, No breakdown Musculoskeletal: No Tenderness to Palpation of Joints or Extremities Neurological: Cranial nerves II-XII grossly intact, Neuro grossly intact Psych/Mental Status: Normal Affect, Appropriate Patient seen and examined prior to discharge. Physical assessment as noted above. Patient is stable for discharge with follow up recommendations as noted above. This patient was seen by CAITLIN Andrade under the supervision of Dr. Walker. - Physical Exam Vitals/I&O's: Vital Signs Temp Pulse Resp BP Pulse Ox 97.6 F L 98 18 110/55 L 91 03/24/20 09:13 03/24/20 09:13 03/24/20 09:13 03/24/20 09:13 03/24/20 09:33 Oxygen Flow Rate (L/min) [ 0 AMBULATING on Room Air] Oxygen Flow Rate (L/min) [ 5 AMBULATION with Oxygen] Oxygen Flow Rate (L/min) 4 Oxygen Delivery Method Nasal Cannula Weight: 128 lb 11.999 oz Body Mass Index (BMI) 20.0 Intake and Output for Last 24 Hours 03/22/20 03/23/20 03/24/20 23:59 23:59 23:59 Intake Total 1271.7 / 1271.7 410.8 / 410.8 50 / 50 Output Total 1255 / 1255 1600 / 1600 500 / 500 Balance 16.7 / 16.7 -1189.2 / -1189.2 -450 / -450 Laboratory Results 03/24/20 06:20: WBC 10.6, RBC 3.96 L, Hgb 11.5 L, Hct 39.0 L, MCV 98.5 H, MCH 29.0, MCHC 29.5 L, RDW Std Deviation 47.2 H, RDW Coeff of Earline 13.1, Plt Count 301, MPV 9.6 03/24/20 06:20: Sodium 136, Potassium 4.8, Chloride 97 L, Carbon Dioxide 39.0 H, Anion Gap 0 L, BUN 26 H, Creatinine 0.61 L, Estim Creat Clear Calc 46.23, Est GFR (MDRD) Af Amer 163, Est GFR (MDRD) Non-Af 135, BUN/Creatinine Ratio 42.8 H, Glucose 123 H, Calcium 8.9 Current Medications Acetaminophen (Tylenol) 650 mg PO Q6H PRN PRN PRN Reason: Pain Score 1-10/Temp > 100.7 F Last Admin: 03/23/20 11:23 Dose: 650 mg Documented by: Albuterol/Ipratropium (Duoneb) 3 ml INHALATION Q4H.RT [facility] Last Admin: 03/24/20 07:15 Dose: 3 ml Documented by: Bisacodyl (Dulcolax) 5 mg PO DAILY PRN PRN PRN Reason: Constipation Last Admin: 03/23/20 08:49 Dose: 5 mg Documented by: Cholecalciferol (Vitamin D (25mcg)) 1,000 unit PO DAILY [facility] Last Admin: 03/24/20 09:15 Dose: 1,000 unit Documented by: Enoxaparin Sodium (Lovenox) 40 mg SC DAILY [facility] Last Admin: 03/24/20 09:15 Dose: 40 mg Documented by: Furosemide (Lasix) 40 mg PO DAILY [facility] Last Admin: 03/24/20 09:15 Dose: 40 mg Documented by: Guaifenesin (Robitussin) 20 ml PO Q4H PRN PRN PRN Reason: COUGH Last Admin: 03/17/20 21:42 Dose: 20 ml Documented by: Sodium Chloride () 250 mls @ 15 mls/hr IV .[id number] PRN PRN Reason: Saline Flush Last Infusion: 03/22/20 11:27 Dose: Infused Documented by: Ondansetron HCl (Zofran) 4 mg IV Q8H PRN PRN PRN Reason: NAUSEA/VOMITING Polyethylene Glycol (Miralax) 17 gm PO DAILY PRN PRN PRN Reason: Constipation Last Admin: 03/21/20 09:13 Dose: 17 gm Documented by: Prednisone () 40 mg PO DAILY@0800 [facility] Last Admin: 03/24/20 09:15 Dose: 40 mg Documented by: Sodium Chloride () 10 - 40 ml IV UD PRN PRN Reason: SALINE FLUSH Last Admin: 03/23/20 21:13 Dose: 10 ml Documented by: Discharge Diet: - - Mechanical soft Discharge Activity: Return to Normal Activity Call your doctor if you observe: Shortness of breath, Dizziness, Fainting spells, Chest pain Home Medications: Medications to take at Discharge Losartan Potassium 25 mg PO DAILY #0 06/12/17 Albuterol Aerosols [Ventolin Aerosols] 2.5 mg INHALATION Q4H PRN PRN #90 vial.neb. 07/17/19 Nitroglycerin (INPATIENT USE) [Nitrostat] 0.4 mg SUBLINGUAL Q5M PRN tab.subl 10/25/19 albuterol sulfate 90 mcg/actuation aerosol inhaler 2 puff INHALATION Q6H PRN #18 g 11/25/19 Acetaminophen [Tylenol] 650 mg PO Q6H PRN PRN 03/16/20 Cholecalciferol (VIT D3) [Vitamin D3] 1,000 unit PO DAILY 03/16/20 Fluticasone/Umeclidin/Vilanter [Trelegy Ellipta 100-62.5-25] 1 inhaler DAILY 03/16/20 Furosemide 40 mg PO DAILY 03/16/20 Ipratropium/Albuterol Sulfate [Duoneb] 3 ml INHALATION Q8 03/16/20 Polyethylene Glycol 3350 [Miralax] 17 gm PO DAILY PRN PRN 03/16/20 Prednisone See Taper PO DAILY #30 tab 03/24/20 Following Prescriptions Were Given to Patient: Prednisone See Taper PO DAILY #30 tab Transmission Status: Received by [facility] Primary Care Physician: Misael Valencia MD [Primary Care Provider] - Please follow up with your Primary Care Physician in: 1 Week Please Follow Up With: Shu Chahal NP-C When: 1-2 Weeks, please make appt prior to DC Please Follow Up With: Eliceo Garrison NP-C When: 1 Week Disposition: Home Minutes spent on discharge:: 35 Patient Condition:: Stable Medical Necessity - Tobacco Use Tobacco Use: Non-smoker Meaningful Use Info Meaningful Use Diagnoses (Choose all that apply): None applicable <Enrrique Walker - Last Filed: 03/24/20 14:37> Discharge Date and Diagnosis - Secondary Discharge Diagnosis Chronic Problems: Chronic Problems (Last Reviewed 03/16/20 @ 08:[address] 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) FEV1 44% of predicted on PFT 12/15/2016 at [facility] Diastolic dysfunction (Chronic) 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) Essential hypertension (Chronic) Paroxysmal atrial flutter (Chronic) Non-rheumatic tricuspid valve insufficiency (Chronic) Aortic valve stenosis, nonrheumatic (Chronic) 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) 06/11/17 Chronic respiratory failure (Chronic) Conduction disorder of the heart (Chronic) Pulmonary hypertension (Chronic) GERD (gastroesophageal reflux disease) (Chronic) Bullous emphysema (Chronic) Hospital Course and Treatment Operations: None Procedures: None Summary of Care Provided: Patient seen and examined independently. Data reviewed. I agree with the above note by the nurse practitioner. 84-year-old male with advanced COPD presents with shortness of breath. Patient was found to have acute exacerbation of COPD with pneumonia. Patient was on IV meropenem as well as IV methylprednisolone. Patient slowly but steadily improved. Patient was observed longer given his advanced COPD and has done well. Patient will be discharged with oral prednisone. Patient does have a trilogy machine at home and will continue with that. Big concern I had was for the patient's very advanced COPD that he is full CODE STATUS had very lengthy conversations with him about CODE STATUS. He states that he wishes to remain full code. Patient has apparently had this addressed on numerous other occasions and has been very steadfast and wishing to remain full code. I just encouraged him to speak with his and make sure that she is on board with his wishes because in the event if he were to be intubated would become very difficult to have him be extubated safely and so that she knows his goals of care and would be able to speak clearly for him in that instance. The patient is a 84 year old M [] - Physical Exam Vitals/I&O's: Vital Signs Temp Pulse Resp BP Pulse Ox 36.4 C L 98 18 110/55 L 95 03/24/20 09:13 03/24/20 09:13 03/24/20 09:13 03/24/20 09:13 03/24/20 11:05 Oxygen Flow Rate (L/min) [ 0 AMBULATING on Room Air] Oxygen Flow Rate (L/min) [ 5 AMBULATION with Oxygen] Oxygen Flow Rate (L/min) 4 Oxygen Delivery Method Nasal Cannula Weight: 58.4 kg Body Mass Index (BMI) 20.0 Intake and Output for Last 24 Hours 03/22/20 03/23/20 03/24/20 23:59 23:59 23:59 Intake Total 1271.7 / 1271.7 410.8 / 410.8 250 / 250 Output Total 1255 / 1255 1600 / 1600 500 / 500 Balance 16.7 / 16.7 -1189.2 / -1189.2 -250 / -250 General: Alert, No apparent distress HEENT: Atraumatic, Normocephalic Lungs: Clear to auscultation, Diminished Cardiovascular: Regular rate, Regular Rhythm, Normal S1, Normal S2, No murmurs Abdomen: Bowel Sounds Present, Soft, Non Tender, Non-Distended Laboratory Results 03/24/20 06:20: WBC 10.6, RBC 3.96 L, Hgb 11.5 L, Hct 39.0 L, MCV 98.5 H, MCH 29.0, MCHC 29.5 L, RDW Std Deviation 47.2 H, RDW Coeff of Earline 13.1, Plt Count 301, MPV 9.6 03/24/20 06:20: Sodium 136, Potassium 4.8, Chloride 97 L, Carbon Dioxide 39.0 H, Anion Gap 0 L, BUN 26 H, Creatinine 0.61 L, Estim Creat Clear Calc 46.23, Est GFR (MDRD) Af Amer 163, Est GFR (MDRD) Non-Af 135, BUN/Creatinine Ratio 42.8 H, Glucose 123 H, Calcium 8.9 Discharge Diet: - Discharge Activity: Return to Normal Activity Call your doctor if you observe: Shortness of breath, Dizziness, Fainting spells, Chest pain Disposition: Home Minutes spent on discharge:: 35 Patient Condition:: Stable Medical Necessity - Tobacco Use Tobacco Use: Non-smoker Meaningful Use Info Meaningful Use Diagnoses (Choose all that apply): None applicable Inpatient E&M: 89316 Disch Hosp
--- NOTE | 2020-03-24 10:58 | CASEMGMT ---
Addendum entered by Shoshana Barrios 03/24/20 12:49: Pt updated on speech and pt states no need for any further resources at this time. Pt declines HHC and OP PT/OT/ST therapy at this time. Pt states 'I just need to get home and get some of this strength back.' Pt states daughter is on the way to pick him up and pt voices no further questions/concerns/needs at this time. Pt thanks this RN HARVEY at this time. Soheila NEELY CM Addendum entered by Shoshana Barrios 03/24/20 11:53: This RN CM spoke with Eduar ROSAS and he states pt had no change in study from previous and that pt to continue with speech while here but that pt does not necessarily need to f/u as OP at this time. Soheila NEELY CM Addendum entered by Shoshana Barrios 03/24/20 11:42: Per Briseida NEELY, pt only needed 5liters with ambulation at this time. Pt's current home order is for 4liters at rest and 7liters with ambulation. Still awaiting call back from speech therapy at this time. Soheila NEELY CM Original Note: This RN CM to room to speak with pt regarding recommendations for further skilled speech therapy at discharge. Pt argues that ST Eduar, told him that 'everything was good' with his swallow study and pt wouldn't need anything further other than following recommended diet. Message left with Eduar ROSAS to clarify at this time. Pt states no further needs at this time and states 'I just want to go home to get some peace and quiet, no offense.' CM to follow. Soheila NEELY CM
--- NOTE | 2020-03-24 11:44 | PHA.DC.COU ---
Pharmacy Services has performed discharge medication counseling for this patient. The patient was counseled on the following discharge medications and changes in medications for homegoing review. The Reason for Use, instructions for use, and potential side effects were reviewed for all new medications. The patient's questions regarding all of their medications were answered. The patient was able to verbally demonstrate an understanding of their discharge medications. The patient demonstrated some understanding but would benefit from further education and reinforcement. The patient was not able to adequately demonstrate understanding.
== END 2020-03-24 13:21 | disposition home or self-care (01) | DRG 189 ==
LOC: ED 06:45 → PCU 10:42
PROVIDERS: Nurse Practitioner Family; Student in an Organized Health Care Education/Training Program; Admitting Provider Internal Medicine; Emergency Provider Emergency Medicine; PCP Internal Medicine
DX: J96.22 Acute and chronic respiratory failure with hypercapnia (principal); J18.9 Pneumonia, unspecified organism; J44.0 Chronic obstructive pulmonary disease with (acute) lower respiratory infection; J44.1 Chronic obstructive pulmonary disease with (acute) exacerbation; E87.1 Hypo-osmolality and hyponatremia; I50.30 Unspecified diastolic (congestive) heart failure; J96.21 Acute and chronic respiratory failure with hypoxia; I11.0 Hypertensive heart disease with heart failure; R13.12 Dysphagia, oropharyngeal phase; I95.9 Hypotension, unspecified; Z85.118 Personal history of other malignant neoplasm of bronchus and lung; I35.0 Nonrheumatic aortic (valve) stenosis; I48.0 Paroxysmal atrial fibrillation; K21.9 Gastro-esophageal reflux disease without esophagitis; F32.9 Major depressive disorder, single episode, unspecified; Z86.010 Personal history of colon polyps; I27.20 Pulmonary hypertension, unspecified; G47.30 Sleep apnea, unspecified; E87.6 Hypokalemia; Z79.899 Other long term (current) drug therapy; Z99.81 Dependence on supplemental oxygen; D64.9 Anemia, unspecified; E55.9 Vitamin D deficiency, unspecified; I36.1 Nonrheumatic tricuspid (valve) insufficiency; F41.9 Anxiety disorder, unspecified; F17.201 Nicotine dependence, unspecified, in remission; Z92.3 Personal history of irradiation; Z95.0 Presence of cardiac pacemaker
CPT/HCPCS: 36415; 36600; 71045; 71275; 74230; 80048; 80053; 82803; 83605; 83735; 83880; 84484; 85025; 85027; 87070; 87205; 87449; 87633; 87635; 87804; 92507; 92526; 92610; 92611; 93005; 94003; 94640; 94799; 97110; 97116; 97162; 97166; 97530; 97535; 99251; 99285; J2185; J7030; J7040; J7050; Q9967; A4216; G0463; J1940; U0003

== ENCOUNTER 2020-04-15 16:30 | Inpatient (IN) | payer MEDICARE, OTHER, SELFPAY ==
[2020-04-02 11:14] VITALS: BMI 18.9
[2020-04-15] VITALS (35 sets, daily range): BP systolic 73–175; BP diastolic 35–87; PULSE 73–126; RESP 12–32; TEMP 36.2–37.8; O2SAT 68–100; BMI 19.0
--- NOTE | 2020-04-15 16:40 | RAD_ITS ---
STUDY: X-RAY CHEST REASON FOR EXAM: Male, 84 years old. ETT PLACEMENT, NG/OG PLACEMENT TECHNIQUE: Single AP portable view of the chest. COMPARISON: Prior study of earlier this 4:31 PM FINDINGS: There is a left-sided pacemaker. A nasogastric tube is noted appearing in adequate position. Endotracheal tube is seen with the tip 6.2 cm proximal to the nicole. tours captain leads are present. There are diffuse coarse fibrotic changes of the lungs. There are infiltrates and/or atelectasis of the mid and lower lung tran bilaterally. There is right costophrenic angle blunting. Normal size heart. Normal mediastinum and rafia. Normal visualized pulmonary arteries. There are calcified plaques of the aortic arch. Normal visualized thoracic spine. Normal visualized ribs, clavicles, and shoulders. There is no demonstrated abnormality of the visualized soft tissue structures of the upper abdomen. RAD/Chest 1 View (Portable) IMPRESSION: Nasogastric and endotracheal tubes seen appearing in adequate position. Diffuse coarse fibrotic changes of the lungs bilaterally. Bilateral mid and lower lung field infiltrates and/or atelectasis. Right costophrenic angle blunting which may represent small effusion or pleural reaction. Excluding the newly placed endotracheal and nasogastric tubes, findings are similar to the prior study of earlier this date. Electronically Signed: Mihai Terry MD at 17:06 EDT , Service support ,
--- NOTE | 2020-04-15 16:40 | EKG12_ITS ---
Test Reason : Blood Pressure : / mmHG Vent. Rate : 113 BPM Atrial Rate : 113 BPM P-R Int : 164 ms QRS Dur : 178 ms QT Int : 396 ms P-R-T Axes : 000 -88 109 degrees QTc Int : 543 ms Atrial-sensed ventricular-paced rhythm Abnormal ECG Confirmed by ANGEL LUIS SOTO, SHASHANK ([id number]), book editor VON TY ([id number]) on 04/19/2020 12:56:17 PM Referred By: Confirmed By:SHASHANK HEIN MD
--- NOTE | 2020-04-15 16:40 | RAD_ITS ---
STUDY: X-RAY CHEST REASON FOR EXAM: Male, 84 years old. RESPIRATORY DISTRESS, SOB TECHNIQUE: Single AP portable view of the chest. COMPARISON: Prior study of 03/18/2020 FINDINGS: There is a bipolar left-sided pacemaker. A youth nutritional monitor lead is noted. There are bilateral perihilar and bilateral lower lobe infiltrates and/or atelectasis. The bibasilar infiltrates are stable in the interval. The perihilar infiltrates are new. There is a diffuse coarse fibrotic pattern of the lungs. There is right custom phrenic angle blunting. Normal size heart. Normal mediastinum and rafia. Normal visualized pulmonary arteries. There are calcified plaques of the aortic arch. Normal visualized thoracic spine. Normal visualized ribs, clavicles, and shoulders. There is no demonstrated abnormality of the visualized soft tissue structures of the upper abdomen. RAD/Chest 1 View (Portable) IMPRESSION: Diffuse coarse fibrotic pattern of the lungs and bibasilar infiltrates and/or atelectasis, stable in the interval. Bilateral perihilar infiltrates are noted new in the interval. Right costophrenic angle blunting consistent with small effusion or pleural reaction, also stable in the interval. Electronically Signed: Mihai Terry MD at 17:18 EDT , Service support ,
[2020-04-15] MEDS: Etomidate 20 MG/10 ML Vial IV (16:49)
[2020-04-15] MEDS: 0.9% Normal Saline 1,000 ML 999 ML IV (16:49)
[2020-04-15] MEDS: Rocuronium Bromide 50 MG/5 ML Vial IV (16:49)
--- NOTE | 2020-04-15 16:51 | ED.DCSUM_ITS ---
History of Present Illness Chief Complaint: Shortness of Breath Informant: Bilingual Hr Generalist Onset: Today Context: Sudden Onset Timing: Continuous Quality: Respiratory distress Location: Patient presents by ambulance from home Current Severity: Severe Maximum Severity: Severe Worsened by: Unknown Relieved by: Unknown Associated Symptoms: Unknown Narrative: Patient is a 84-year-old male with history of COPD, diastolic dysfunction with preserved EF, 55%, remote history of lung cancer who was admitted recently for bilateral pneumonia. He presents in respiratory distress. He is nonverbal. He is cyanotic. Pulse ox reads 67%. He is diaphoretic and mottled. Unable to determine CODE STATUS from patient. Squad states they believe he is full go. 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 (5) Essential hypertension Status: Chronic (6) GERD (gastroesophageal reflux disease) Status: Chronic (7) Hypertension Status: Chronic (8) Hypokalemia Status: Chronic (9) Mobitz type 2 second degree AV block Status: Chronic (10) Non-rheumatic tricuspid valve insufficiency Status: Chronic (11) Pulmonary hypertension Status: Chronic (12) Sleep apnea Status: Chronic Past Medical History - Allergies and Home Meds Allergies/Adverse Reactions: Allergies ampicillin Allergy (Verified 04/02/20 11:11) Anaphylaxis azithromycin Allergy (Verified 04/02/20 11:11) Rash codeine Allergy (Verified 04/02/20 11:11) Rash penicillin G Allergy (Verified 04/02/20 11:11) Rash Sulfa (Sulfonamide Antibiotics) Allergy (Verified 04/02/20 11:11) Rash sulfamethoxazole [From Bactrim] Allergy (Verified 04/02/20 11:11) Rash trimethoprim [From Bactrim] Allergy (Verified 04/02/20 11:11) Rash Primary Care Physician: Misael Valencia MD [Primary Care Provider] - Prior records reviewed: Yes Surgical History: appendectomy, cataract, pacemaker implantation Lives: Spouse/ Significant Other Drugs: - - Able to determine - Family History Paternal Family History: Family History (Last Reviewed 04/02/20 @ 11:37 by Shu Chahal FLIGHT ENGINEER, FLIGHT ENGINEER-C) Brother Diabetes Sister Diabetes Lung cancer Family History: Reports: Heart Disease - Father with history of heart disease, at age 96. Offspring Family History: Family History (Last Reviewed 04/02/20 @ 11:37 by Shu Chahal NP, FLIGHT ENGINEER-C) Brother Diabetes Sister Diabetes Lung cancer Family History: Reports: COPD Sibling Family History: Family History (Last Reviewed 04/02/20 @ 11:37 by Shu Chahal NP, FLIGHT ENGINEER-C) Brother Diabetes Sister Diabetes Lung cancer Family History: Reports: COPD, Diabetes, Heart Disease Maternal Family History: Family History (Last Reviewed 04/02/20 @ 11:37 by Shu Chahal NP, FLIGHT ENGINEER-C) Brother Diabetes Sister Diabetes Lung cancer Family History: Reports: Heart Disease, - - osteoporosis Review of Systems ROS: Unable to Obtain - Due to severity/criticalness of patient's presentation and condition Physical Exam Vital Signs/Narrative: Vital Signs Temp Pulse Resp BP Pulse Ox 04/15/20 16:33 97.9 F 115 H 25 H 150/75 H 68 Inital Vital Signs reviewed: Yes General: Well developed, Cachectic, Acute Distress Head: Normocephalic, Atraumatic Eyes: Perrl, EOMI. Negative for: Pale conjunctiva, Scleral icterus ENT: Moist mucous membranes, No rhinorrhea Neck: Supple, Nontender, No lymphadenopathy, - - JVD noted to the angle of the mandible bilaterally in upright position. Negative for: No JVD Cardiovascular: Regular rhythm, No murmurs, Normal S1, Normal S2, Tachycardia Respiratory: Decreased Air Movement, Retractions, - - Paradoxical breathing. No breath sounds noted on the left. Concern patient may have a spontaneous pneumothorax. Urgent chest x-ray was obtained prior to establishing airway. Abdomen: Soft, Hypoactive bowel sounds. Negative for: Mass, Pulsatile mass Rectal: Deferred Back: Normal Inspection Extremities: Edema Skin: Cyanosis, Diaphoresis, - - Mottled Neurological: Hyperalert, - - GCS is 7. Negative for: Alert, Oriented x3 Psychological: - - Unable to determine Diagnostic/Tx/Re-eval Chest X-Ray - ED: 1 View, Read by ED Physician, - - Documented under medical decision making Impressions Chest X-Ray 04/15/20 16:40 IMPRESSION: Diffuse coarse fibrotic pattern of the lungs and bibasilar infiltrates and/or atelectasis, stable in the interval. Bilateral perihilar infiltrates are noted new in the interval. Right costophrenic angle blunting consistent with small effusion or pleural reaction, also stable in the interval. Electronically Signed: Mihai Terry MD at 17:18 EDT , Service support , 04/15/20 16:40 Chest 1 View (Portable) [RAD] Stat Xray Chest [Chest 1 View (Portable)] [RAD] Stat Laboratory Results 04/15/20 04/15/20 04/15/20 16:35 16:35 16:35 WBC 9.5 RBC 3.50 L Hgb 10.3 L Hct 35.7 L MCV 102.0 H MCH 29.4 MCHC 28.9 L RDW Std Deviation 51.8 H RDW Coeff of Earline 13.8 Plt Count 260 MPV 10.2 Immature Gran % (Auto) 0.600 Neut % (Auto) 67.0 Lymph % (Auto) 23.8 [place] % (Auto) 8.1 Eos % (Auto) 0.2 Baso % (Auto) 0.3 Absolute Neuts (auto) 6.4 Absolute Lymphs (auto) 2.27 Nucleated RBC % 0 Specimen Type Sample Site pH Bicarbonate Actual Total CO2 Base Excess O2 Saturation O2 % ABG pCO2 ABG pO2 Mo Test Respiration Rate O2 Delivery Device Vent Mode Tidal Volume Sodium 138 Potassium 4.1 Chloride 98 Carbon Dioxide 31.0 Anion Gap 9 BUN 17 Creatinine 0.88 Estim Creat Clear Calc 56.95 Est GFR (MDRD) Af Amer 106 Est GFR (MDRD) Non-Af 88 BUN/Creatinine Ratio 19.3 Glucose 328 H Lactic Acid 8.3 H* Calcium 9.4 Total Bilirubin 0.40 AST 63 H ALT 90 H Alkaline Phosphatase 102 Total Creatine Kinase 71 Total Protein 7.0 Albumin 3.4 Globulin 3.6 Albumin/Globulin Ratio 0.9 04/15/20 17:11 WBC RBC Hgb Hct MCV MCH MCHC RDW Std Deviation RDW Coeff of Earline Plt Count MPV Immature Gran % (Auto) Neut % (Auto) Lymph % (Auto) [place] % (Auto) Eos % (Auto) Baso % (Auto) Absolute Neuts (auto) Absolute Lymphs (auto) Nucleated RBC % Specimen Type ART Sample Site R Radial pH 7.19 L* Bicarbonate Actual 32.3 H Total CO2 35 Base Excess 4 H O2 Saturation 100 H O2 % 100 ABG pCO2 84.0 H* ABG pO2 296 H Mo Test Positive Respiration Rate 12.0000 O2 Delivery Device ET Tube Vent Mode AC Tidal Volume 450 Sodium Potassium Chloride Carbon Dioxide Anion Gap BUN Creatinine Estim Creat Clear Calc Est GFR (MDRD) Af Amer Est GFR (MDRD) Non-Af BUN/Creatinine Ratio Glucose Lactic Acid Calcium Total Bilirubin AST ALT Alkaline Phosphatase Total Creatine Kinase Total Protein Albumin Globulin Albumin/Globulin Ratio Lactate is 8.3 he will receive a 30 cc/kg bolus. - EKG Initial EKG Interpretation: - - 0 sensed ventricular paced rhythm with a rate of 113. MT interval 164. QRS duration 178 ms. QT duration 396 ms. [place] to left. - Medical Decision Making Patient presents in respiratory stress and hypoxic. Minimal breath sounds noted right. No breath sounds noted left. Stat portable chest x-ray was obtained to rule out pneumothorax/tension pneumothorax since he is hypotensive. Blood pressure in the field is 50. CPAP was applied prior to arrival. When he arrived his pulse ox is 58%. Chest x-ray did not reveal evidence of pneumothorax. Patient was orotracheally debated by RSI technique. Patient received 40 mg etomidate followed by 50 mL rocuronium. Using glide scope a 7.5 [place] endotracheal tube was placed successfully on first pass. There was appropriate color change of the capnometer. Breath sounds are noted bilaterally. And vapors noted in the endotracheal tube. Will obtain EKG to rule out cardiac ischemia. Infectious work-up was undertaken. Patient was tested for COVID-19 Chest x-ray was obtained postintubation. Endotracheal tube is 2 cm from the nicole. OG tube is in proper position. Will need to compare to prior films to determine if patient has scarring versus infiltrates. X-ray obtained March 17 and were reviewed. The infiltrate on the left is worse. There is significant change on the right. Pending does not represent atelectasis since findings are more prominent after intubation. Blood gas reveals a pH of 7.19, PCO2 of 84, P O2 of 295, bicarb of 32.3 with a base excess of 4.1 and a 99.8% saturation. Patient was on a total volume 450, respiratory 12, PEEP of 10. Will increase rate. Since patient has significant COPD goal is saturation of 88 to 92%. His blood gas reveals chronic CO2 retention with acute CO2 retention and increased AA gradient. - Critical Care Time Critical care time (excluding procedures): 30-74 minutes - Care time 42 minutes this includes speaking with paramedics, review of old records, documentation, patient care. This excludes time needed for intubation., Discussing w/Patient &/or Family/Real Estate Instructor, Discussing w/Consultants, Arranging Admission or Transfer ED Disposition - Plan for ED Patient: Disposition: Acute Care Hospital [facility] Diagnosis: Acute respiratory failure with hypoxia and hypercapnia, Septic shock, Pneumonia of both lower lobes Referrals: Misael Valencia MD [Primary Care Provider] -
[2020-04-15] MEDS: fentaNYL 100 MCG/2 ML Ampul 50 MCG IV (17:05)
--- NOTE | 2020-04-15 17:11 | CPS ---
notified of critical ABG results.
[2020-04-15 17:16] LABS: Allen Test Positive; Base Excess 4 mmol/L (-2 to +2); Bicarbonate 32.3 mmol/L (22-26); Blood Gas Specimen Type ART; FI02 100; Mode AC; O2 Delivery Device ET Tube; PO2 296 mmHG (75-100); SITE R Radial; SO2 100 % (95-99); Total Carbon Dioxide 35 mmol/L; Vt 450; pH 7.19 (7.35-7.45)
[2020-04-15 17:17] LABS: Absolute Lymphocyte Count 2.27 X10^3/uL (0.83-4.51); Absolute Neutrophil Count 6.4 X10^3/uL (2.0-7.7); Basophil# 0.03 X10^3/uL; Basophil% 0.3 % (0-1); Eosinophil# 0.02 X10^3/uL; Eosinophils% 0.2 % (0-5); Hematocrit 35.7 % (40-54); Hemoglobin 10.3 g/dL (13.0-16.5); Lymphocyte # 2.27 X10^3/ul (4.0); Lymphocyte % 23.8 % (19-41); Mean Corp Hgb Conc 28.9 g/dL (32-36); Mean Corpuscular Hgb 29.4 pg (27.0-32.0); Mean Platelet Vol. 10.2 fl (6.2-12.0); Monocyte# 0.77 X10^3/uL; Monocyte% 8.1 % (0-10); NRBC Flagged by Analyzer 0 % (0-5); Neutrophil # 6.39 X10^3/uL (2.7-7.7); Platelet Count 260 K/mm3 (150-450); RBC Distribution Width CV 13.8 % (11.6-14.6); RBC Distribution Width SD 51.8 fl (35.1-43.9); White Blood Count 9.5 K/mm3 (4.4-11.0)
[2020-04-15] MEDS: Propofol 10MG/Ml 1,000 MG/100 ML Bottle 3.8 MG CONT INF (17:17)
[2020-04-15 17:30] LABS: ALB/GLOB Ratio 0.9 RATIO (0.9-2.4); AST(SGOT) 63 U/L (15-37); Alanine Aminotransfer ALT/SGPT 90 U/L (16-61); Albumin, Serum 3.4 g/dL (3.2-5.0); Alkaline Phosphatase 102 U/L (45-117); Anion Gap 9 (5-15); BUN 17 mg/dL (7-18); BUN/Creat Ratio 19.3 RATIO (10-20); CPK Total, Creatine Kinase 71 U/L (39-308); Calcium,Total 9.4 mg/dL (8.5-10.1); Chloride 98 mmol/L (98-107); Creatinine, Serum 0.88 mg/dL (0.70-1.30); EST Glomerular Filtration Rate 88 mL/min (>60); Est Glom Filt Rate - Afr Amer 106 mL/min (>60); Estimated Creatinine Clearance 56.95 ml/min; Globulin 3.6 g/dL (2.2-4.2); Glucose 328 mg/dL (74-106); Potassium 4.1 mmol/L (3.5-5.1); Sodium Level 138 mmol/L (136-145)
[2020-04-15 17:36] LABS: Lactic Acid 8.3 mmol/L (0.4-1.9)
[2020-04-15] MEDS: Propofol 200 MG/20 ML Vial 30 MG IV BOLUS (17:37)
[2020-04-15 17:41] LABS: Prothrombin Time (Protime)PT. 12.7 SECONDS (11.7-14.9)
--- NOTE | 2020-04-15 17:41 | NURSING ---
HOSPITALIST PAGED DR HINTON PAGED
[2020-04-15 17:43] LABS: Partial Thromboplast Time 29.3 Seconds (24.1-36.2)
[2020-04-15] MEDS: 0.9% Normal Saline 1,000 ML 1000 ML IV (17:45)
--- NOTE | 2020-04-15 17:45 | NURSING ---
DR PUGH IN ER
--- NOTE | 2020-04-15 17:57 | HP.PCM_ITS ---
Problem List (1) Acute on chronic respiratory failure with hypoxia Status: Acute (2) COPD exacerbation Status: Chronic (3) Acute respiratory failure with hypoxia and hypercapnia Status: Acute (4) Septic shock Status: Acute (5) Pneumonia of both lower lobes Status: Suspected (6) Sleep apnea Status: Chronic Qualifiers: Sleep apnea type: obstructive Qualified Code(s): G47.33 - Obstructive sleep apnea (adult) (pediatric) (7) Aortic stenosis Status: Chronic Qualifiers: Cardiac valve disease etiology: nonrheumatic Qualified Code(s): I35.0 - Nonrheumatic aortic (valve) stenosis (8) Hypertension Status: Chronic (9) Atrial flutter Status: Chronic (10) Allergic rhinitis Status: Chronic (11) Colon polyps Status: Chronic (12) Mobitz type 1 second degree AV block Status: Chronic (13) Stage 3 severe COPD by GOLD classification Status: Chronic Comment: FEV1 44% of predicted on PFT 12/15/2016 at [facility] (14) Diastolic dysfunction Status: Chronic (15) Presence of cardiac pacemaker Status: Chronic (16) Right lower lobe lung mass Status: Chronic (17) Essential hypertension Status: Chronic (18) Paroxysmal atrial flutter Status: Chronic (19) Non-rheumatic tricuspid valve insufficiency Status: Chronic (20) Aortic valve stenosis, nonrheumatic Status: Chronic (21) Mobitz type 2 second degree AV block Status: Chronic (22) History of permanent cardiac pacemaker placement Status: Chronic Comment: 06/11/17 (23) Chronic respiratory failure Status: Chronic Qualifiers: (24) 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 The patient is a 84 year old M who presents to the emergency room due to shortness of breath. Patient intubated and sedated at time of exam. at bedside who states patient became increasingly more short of breath early this morning. She states he then leveled out late morning however then worsened again in the afternoon and squad was called. She states patient has not had exposure to sick contacts. She denies patient has not had increase in cough or fever, chills. Discussed CODE STATUS and would like patient to remain full code. 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 Past Medical History Past Medical History (Chronic Problems): Chronic Problems (Last Reviewed 04/02/20 @ 11:37 by Shu Chahal AUTO DESIGN DETAILER, AUTO DESIGN DETAILER-C) COPD exacerbation (Chronic) Sleep apnea (Chronic) Aortic stenosis (Chronic) Hypertension (Chronic) Atrial flutter (Chronic) Allergic rhinitis (Chronic) Colon polyps (Chronic) 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) FEV1 44% of predicted on PFT 12/15/2016 at [facility] Diastolic dysfunction (Chronic) 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) Essential hypertension (Chronic) Paroxysmal atrial flutter (Chronic) Non-rheumatic tricuspid valve insufficiency (Chronic) Aortic valve stenosis, nonrheumatic (Chronic) 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) 06/11/17 Chronic respiratory failure (Chronic) Conduction disorder of the heart (Chronic) Pulmonary hypertension (Chronic) GERD (gastroesophageal reflux disease) (Chronic) Bullous emphysema (Chronic) Medical History: Medical History (Last Reviewed 04/02/20 @ 11:37 by Shu Chahal AUTO DESIGN DETAILER, AUTO DESIGN DETAILER-C) Colon polyps (Chronic) 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) I44.1 Paroxysmal atrial flutter (Chronic) I48.92 Aortic valve stenosis, nonrheumatic (Chronic) I35.0 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) I44.1 Chronic respiratory failure (Chronic) J96.10 Conduction disorder of the heart (Chronic) I45.9 Pulmonary hypertension (Chronic) I27.20 GERD (gastroesophageal reflux disease) (Chronic) K21.9 Bullous emphysema (Chronic) J43.9 Lung cancer (Inactive) C34.90 Allergies ampicillin Allergy (Verified 04/02/20 11:11) Anaphylaxis azithromycin Allergy (Verified 04/02/20 11:11) Rash codeine Allergy (Verified 04/02/20 11:11) Rash penicillin G Allergy (Verified 04/02/20 11:11) Rash Sulfa (Sulfonamide Antibiotics) Allergy (Verified 04/02/20 11:11) Rash sulfamethoxazole [From Bactrim] Allergy (Verified 04/02/20 11:11) Rash trimethoprim [From Bactrim] Allergy (Verified 04/02/20 11:11) Rash Home Medications: Ambulatory Orders Medication Instructions Recorded albuterol sulfate 90 mcg/actuation 2 puff INHALATION Q6H PRN #18 g 11/25/19 aerosol inhaler Cholecalciferol (VIT D3) [Vitamin 1,000 unit PO DAILY 03/16/20 D3] Fluticasone/Umeclidin/Vilanter 1 inhaler INHALATION DAILY 03/16/20 [Trelegy Ellipta 100-62.5-25] Furosemide 40 mg PO DAILY 03/16/20 docusate sodium 100 mg capsule 100 mg PO DAILY 03/31/20 Acetaminophen [Tylenol Arthritis] 650 mg PO Q6H PRN PRN 04/15/20 Losartan Potassium [Cozaar] 25 mg PO DAILY 04/15/20 Paroxetine HCl [Paxil] 10 mg PO QHS 04/15/20 Potassium Chloride [Klor-Con M10] 10 meq PO DAILY 04/15/20 Prednisone 5 mg PO QODAY 04/15/20 Surgical History: Surgical History (Last Reviewed 04/02/20 @ 11:37 by Shu Chahal AUTO DESIGN DETAILER, AUTO DESIGN DETAILER-C) History of permanent cardiac pacemaker placement (Chronic) Z95.0 06/11/17 History of appendectomy (Inactive) Z98.890, Z90.49 Hx of cataract surgery (Inactive) Z98.49 Surgical History: appendectomy, cataract, pacemaker implantation Psychiatric History: Anxiety, Depression Lives: Spouse/ Significant Other Smoking Status: Former smoker Tobacco Use: Cigarettes Drugs: None - *Family History Paternal Family History: Family History (Last Reviewed 04/15/20 @ 18:09 by Xena Hernandez AUTO DESIGN DETAILER, AUTO DESIGN DETAILER-C) Brother Diabetes Sister Diabetes Lung cancer History Items: Heart Disease - Father with history of heart disease, at age 96. Offspring Family History: Family History (Last Reviewed 04/15/20 @ 18:09 by Xena Hernandez NP, AUTO DESIGN DETAILER-C) Brother Diabetes Sister Diabetes Lung cancer History Items: COPD Sibling Family History: Family History (Last Reviewed 04/15/20 @ 18:09 by Xena Hernandez AUTO DESIGN DETAILER, AUTO DESIGN DETAILER-C) Brother Diabetes Sister Diabetes Lung cancer History Items: COPD, Diabetes, Heart Disease Maternal Family History: Family History (Last Reviewed 04/15/20 @ 18:09 by Xena Hernandez AUTO DESIGN DETAILER, AUTO DESIGN DETAILER-C) Brother Diabetes Sister Diabetes Lung cancer History Items: Heart Disease, - - osteoporosis Review of Systems Unable to obtain accurate/complete ROS d/t: Due to patient intubated and sedated VTE Information - Inpt Only VTE Present on Admission: No VTE Mechan Device Prophylaxis: None VTE Pharm Prophylaxis ordered?: Yes Patient Problems: Active and Suspected Problems (Last Reviewed 04/02/20 @ 11:37 by Shu Chahal AUTO DESIGN DETAILER, AUTO DESIGN DETAILER-C) Acute respiratory failure with hypoxia and hypercapnia (Acute) Septic shock (Acute) Pneumonia of both lower lobes (Suspected) - Physical Exam Vitals/I&O's: Vital Signs Temp Pulse Resp BP Pulse Ox 97.1 F L 119 H 30 H 95/53 L 99 04/15/20 17:47 04/15/20 17:47 04/15/20 17:47 04/15/20 17:47 04/15/20 17:47 Oxygen Delivery Method Mechanical Ventilator Weight: 139 lb 8.842 oz Body Mass Index (BMI) 20.0 Intake and Output for Last 24 Hours 04/13/20 04/14/20 04/15/20 23:59 23:59 23:59 Intake Total 1002.66 / 1002.66 Balance 1002.66 / 1002.66 General: - - Intubated and sedated HEENT: Atraumatic, EOMI Oral: Dry Mucosa Neck: Supple, No JVD, Negative Carotid Bruits Lungs: Clear to auscultation, Diminished Cardiovascular: Murmur, Tachycardic Abdomen: Bowel Sounds Present, Soft, Non Tender Extremities: No clubbing, No cyanosis, No edema, Capillary Refill Less than 3 Seconds Skin: No rashes, No breakdown Musculoskeletal: No Tenderness to Palpation of Joints or Extremities Neurological: Cranial nerves II-XII grossly intact Psych/Mental Status: - - Unable to assess Laboratory Results 04/15/20 16:35: WBC 9.5, RBC 3.50 L, Hgb 10.3 L, Hct 35.7 L, MCV 102.0 H, MCH 29.4, MCHC 28.9 L, RDW Std Deviation 51.8 H, RDW Coeff of Earline 13.8, Plt Count 260, MPV 10.2, Immature Gran % (Auto) 0.600, Neut % (Auto) 67.0, Lymph % (Auto) 23.8, [place] % (Auto) 8.1, Eos % (Auto) 0.2, Baso % (Auto) 0.3, Absolute Neuts (auto) 6.4, Absolute Lymphs (auto) 2.27, Nucleated RBC % 0 04/15/20 16:35: PT 12.7, INR 1.0, APTT 29.3 04/15/20 16:35: Sodium 138, Potassium 4.1, Chloride 98, Carbon Dioxide 31.0, Anion Gap 9, BUN 17, Creatinine 0.88, Estim Creat Clear Calc 56.95, Est GFR (MDRD) Af Amer 106, Est GFR (MDRD) Non-Af 88, BUN/Creatinine Ratio 19.3, Glucose 328 H, Calcium 9.4, Total Bilirubin 0.40, AST 63 H, ALT 90 H, Alkaline Phosphatase 102, Total Creatine Kinase 71, Total Protein 7.0, Albumin 3.4, Globulin 3.6, Albumin/Globulin Ratio 0.9 04/15/20 16:35: Lactic Acid 8.3 H* 04/15/20 17:03: COVID-19 (SKINNY) Pending 04/15/20 17:11: Specimen Type ART, Sample Site R Radial, pH 7.19 L*, Bicarbonate Actual 32.3 H, Total CO2 35, Base Excess 4 H, O2 Saturation 100 H, O2 % 100, ABG pCO2 84.0 H*, ABG pO2 296 H, Mo Test Positive, Respiration Rate 12.0000, O2 Delivery Device ET Tube, Vent Mode AC, Tidal Volume 450 Current Medications Meropenem 2 gm/ Sodium (Chloride) 140 mls @ 97 mls/hr IV X1 ONE Stop: 04/15/20 18:09 Last Admin: 04/15/20 17:28 Dose: 97 mls/hr Documented by: Levofloxacin (Levaquin Iv) 750 mg in 150 mls @ 100 mls/hr IV X1 ONE Stop: 04/15/20 18:12 Fentanyl Citrate 1,000 mcg/ (Sodium Chloride) 100 mls @ 2.5 mls/hr CONT INF .Q40H WEI; Protocol Last Titration: 04/15/20 17:49 Dose: 50 mcg/hr, 5 mls/hr Documented by: Propofol (Diprivan) 1,000 mg in 100 mls @ 3.798 mls/hr CONT INF .Q12H WEI; Protocol Last Titration: 04/15/20 17:38 Dose: 15 mcg/kg/min, 5.7 mls/hr Documented by: Sodium Chloride () 1,000 mls @ 1,000 mls/hr IV .Q1H ONE Stop: 04/15/20 18:38 Last Admin: 04/15/20 17:45 Dose: 1,000 mls/hr Documented by: Assessment/Plan All Active Problems (Last Reviewed 04/02/20 @ 11:37 by Shu Chahal AUTO DESIGN DETAILER, AUTO DESIGN DETAILER- C) Acute on chronic respiratory failure with hypoxia (Acute) Acute respiratory failure with hypoxia and hypercapnia (Acute) Septic shock (Acute) 1. Septic shock- suspect secondary to healthcare associated pneumonia. Recent admission March 2020 due to bilateral lower lobe pneumonia. IV Levaquin and IV meropenem. Obtain sputum culture. Fluids per sepsis protocol. Repeat lactic acid per protocol. Lactic acidosis possibly secondary to respiratory failure versus pneumonia. COVID test pending however low suspicion. 2. Acute on chronic combined hypoxic and hypercapnic respiratory failure secondary to bilateral lower lobe hospital-acquired pneumonia and suspected COPD exacerbation-Patient follows with Dr. Mccartney as outpatient. IV antibiotics as noted above. IV Solu-Medrol. Albuterol and DuoNeb aerosols. Patient wears 4 L nasal cannula continuously at baseline with trilogy at night. Intubated in ER. 3. Chronic heart failure with preserved ejection fraction-echocardiogram September 2019 demonstrates an EF of 55%, stage I diastolic dysfunction, moderate pulmonary hypertension, mean aortic valve gradient 23 mmHg. Continue home Lasix regimen when able to tolerate oral intake. 4. Mild to moderate oropharyngeal dysphagia-history of strictures. Patient underwent modified barium swallow 03/25 which demonstrated mild to moderate oropharyngeal dysphagia. Speech therapy consult when patient is off vent. 4. Hypertension-stable, on losartan. 5. History of right lower lobe lung cancer-pulmonary follow-up. 6. History of aortic stenosis-stable per echo September 2019. 7. 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 8. History of tobacco dependence-in remission. 9. GERD- on famotidine. 10. Depression-continue paroxetine regimen. DVT prophylaxis-Lovenox subcu CODE STATUS: Full code per . This patient was seen by CAITLIN Andrade under the supervision of Dr. Ferrer.
[2020-04-15 19:03] LABS: Bacteria 0 SEEN /hpf (None Seen); Mucous, Urine 0 SEEN /hpf (<or=2+); White Blood Cells 0 SEEN /hpf (0-5)
[2020-04-15] MEDS: levoFLOXacin IV 750 MG/150 ML BAG 100 MG IV (19:07)
[2020-04-15 19:08] LABS: Color, Urine Straw (Yellow); Glucose, Dipstick 1000 mg/dl (Normal); Ketone-Dipstick Negative (Negative); Leukocyte Esterase-Dipstick Negative /ul (Negative); Nitrite-Dipstick Negative (Negative); Occult Blood-Urine 25 /ul (Negative); Protein-Dipstick 100 mg/dl (Negative); Specific Gravity, Urine 1.025 (1.002-1.030); Urine Bilirubin Dipstick Negative (Negative); Urine Clarity Clear (Clear); Urine Urobilinogen Normal (Normal)
--- NOTE | 2020-04-15 19:10 | ED.RN ---
ed requested decrease in propofol related to map <65. propofol decreased and discussion about low bp related to medication occured. melissa kurtz rn 1947
[2020-04-15 19:24] LABS: Probe Check PASS; Specimen Processing Control PASS
[2020-04-15 19:28] LABS: Hyaline Cast 0-5 SEEN /lpf (0-5); Red Blood Cells-Urine 0-5 SEEN /hpf (0-5); Squamous Epithelial Cells - UA 0-5 SEEN /hpf (0-5)
[2020-04-15 20:54] LABS: Reflex Lactate? Y
[2020-04-15] MEDS: 0.9% Normal Saline 1,000 ML 100 ML IV (21:30)
[2020-04-15] MEDS: Famotidine 200 MG/20 ML MDV 20 MG in 0.9% Normal Saline (Pres. free 8 ML 300 MG IV (21:33)
[2020-04-15] MEDS: 0.9% Saline Lock 10 ML Syringe IV (21:37)
[2020-04-15 22:08] LABS: Magnesium 2.6 mg/dL (1.6-2.6)
[2020-04-15 22:36] LABS: M R Staph aureus DNA By PCR Negative (Negative); Probe Check PASS; Specimen Processing Control PASS
[2020-04-15] MEDS: Ipratropium/Albuterol Sulfate 3 ML AMPUL.NEB INHALATION (22:55)
[2020-04-15 22:58] LABS: Lactic Acid 1.6 mmol/L (0.4-1.9)
[2020-04-15 23:01] LABS: Base Excess 4 mmol/L (-2 to +2); Bicarbonate 30.7 mmol/L (22-26); Blood Gas Specimen Type ART; FI02 60; Mode AC; O2 Delivery Device Adult Vent; PO2 65 mmHG (75-100); SITE R Radial; SO2 88 % (95-99); Total Carbon Dioxide 33 mmol/L; Vt 450; pCO2 66.5 mmHg (35-45); pH 7.27 (7.35-7.45)
[2020-04-16] VITALS (56 sets, daily range): BP systolic 98–146; BP diastolic 38–77; PULSE 66–109; RESP 16–27; TEMP 37.3–38; O2SAT 92–100; BMI 19.5
[2020-04-16 00:45] LABS: Bedside Glucose 120 mg/dL (70-110)
[2020-04-16] MEDS: Ipratropium/Albuterol Sulfate 3 ML AMPUL.NEB INHALATION ×6 (02:38→22:18)
[2020-04-16 04:18] LABS: Absolute Lymphocyte Count 0.34 X10^3/uL (0.83-4.51); Absolute Neutrophil Count 6.4 X10^3/uL (2.0-7.7); Basophil# 0.01 X10^3/uL; Basophil% 0.1 % (0-1); Hematocrit 27.9 % (40-54); Hemoglobin 8.3 g/dL (13.0-16.5); Lymphocyte # 0.34 X10^3/ul (4.0); Lymphocyte % 4.9 % (19-41); Mean Corp Hgb Conc 29.7 g/dL (32-36); Mean Corpuscular Hgb 29.4 pg (27.0-32.0); Mean Corpuscular Volume 98.9 fL (80-94); Mean Platelet Vol. 9.2 fl (6.2-12.0); Monocyte# 0.17 X10^3/uL; Monocyte% 2.4 % (0-10); NRBC Flagged by Analyzer 0 % (0-5); Neutrophil # 6.39 X10^3/uL (2.7-7.7); POSITIVE DIFFERENTIAL YES; Platelet Count 193 K/mm3 (150-450); RBC Distribution Width CV 13.6 % (11.6-14.6); RBC Distribution Width SD 49.3 fl (35.1-43.9); Red Blood Count 2.82 M/mm3 (4.6-6.2)
[2020-04-16 04:19] LABS: Differential Indicated SCAN CRITERIA MET
[2020-04-16 04:47] LABS: Anion Gap 3 (5-15); BUN 17 mg/dL (7-18); BUN/Creat Ratio 40.1 RATIO (10-20); Chloride 105 mmol/L (98-107); Creatinine, Serum 0.42 mg/dL (0.70-1.30); EST Glomerular Filtration Rate 204 mL/min (>60); Est Glom Filt Rate - Afr Amer 247 mL/min (>60); Estimated Creatinine Clearance 47.74 ml/min; Glucose 145 mg/dL (74-106); Potassium 4.5 mmol/L (3.5-5.1); Sodium Level 138 mmol/L (136-145)
[2020-04-16 05:08] LABS: Differential Comment SCANNED
[2020-04-16] MEDS: Propofol 10MG/Ml 1,000 MG/100 ML Bottle 3.8 MG CONT INF ×2 (05:35→16:05)
[2020-04-16] MEDS: 0.9% Normal Saline 1,000 ML 100 ML IV (05:55)
--- NOTE | 2020-04-16 05:55 | RAD_ITS ---
HISTORY: RESPIRATORY FAILURE ADDITIONAL HISTORY: None provided. EXAMINATION/TECHNIQUE: XR Chest 1 View AP/PA Number of images including paperwork: 1 COMPARISON: 04/15/2020 FINDINGS: LUNGS AND PLEURA: Multifocal bilateral airspace opacities again seen. Slight improvement in right basilar aeration and slight increase in left basilar opacity. Small bilateral pleural effusions. CARDIAC SILHOUETTE: Stable. MEDIASTINUM AND BRIAN: Stable. UPPER ABDOMEN: Unremarkable. SKELETON AND SOFT TISSUES: No acute skeletal findings. OTHER DEVICES AND HARDWARE: Endotracheal tube tip in the mid thoracic trachea. Gastric tube extends into the stomach, tip below the inferior joint of the film. Pacemaker with left-sided generator. RAD/Chest 1 View (Portable) IMPRESSION: Bilateral infiltrates and pleural effusions, as described. at 0443 Reported and signed by: Kira Clement MD Electronically Signed: Kira Clement MD at 4:42 EDT Tel , Service support ,
--- NOTE | 2020-04-16 06:48 | CON.PCM_ITS ---
Reason for Consult Date of Consultation: 04/16/20 Reason for Consultation: Acute on chronic combined respiratory failure History of Present Illness: The patient is an 84-year-old male, well-known to me from the pulmonary medicine clinic, who presented to the emergency department on April 15 via EMS with worsening shortness of breath and hypoxemia. Per EMS documentation, the patient was in respiratory distress upon their arrival with oxygen saturations documented to be in the 60s. He was placed on CPAP in route to the hospital. The patient was just discharged from the hospital on March 24 after again having been admitted for acute on chronic respiratory failure. The patient has been hospitalized on multiple occasions this year for COPD exacerbations and/or decompensated heart failure. CODE STATUS has been discussed extensively with the patient in the past, including recommendations for palliative care referral. Nevertheless, the patient has always declined. He is on maximum therapy for his COPD in his home environment and has a baseline oxygen requirement of 4 to 6 L/min. In addition, he is prescribed a noninvasive ventilator in his home environment as well. The patient has a smoking history that includes 1 pack of cigarettes daily times 5 years, which was then followed by cigar consumption of 30 cigars weekly from 1962 through 2008. The patient has been on supplemental oxygen since January 2017. He has a history of non-small cell lung cancer, diagnosed through the [facility], for which he underwent radiation treatment. On presentation to the emergency department, the patient was noted to be tachycardic and tachypneic. He was noted to be hypoxemic, despite being on CPAP therapy. Therefore, he was emergently intubated in the ED. Laboratory evaluation revealed a normal white blood cell count. Coagulation profile was within normal limits. Initial arterial blood gas revealed a pH of 7.19 with a corresponding PCO2 of 84 and PO2 of 296. Chemistry profile was unremarkable. Initial lactate was elevated to 8.3. Coronavirus PCR was negative. MRSA screen was negative. Initial chest x-ray revealed chronic interstitial changes with bilateral perihilar infiltrates and blunting of the right costophrenic angle. The patient did receive supplemental IV fluid hydration, antimicrobials and bronchodilators. He was then admitted to the medical intensive care unit for further management. Overnight, the patient did have to be started on Levophed to maintain hemodynamic stability. He currently has a vasopressor requirement of 8 mcg/min. He is stable on assist control mode of mechanical ventilation with an FiO2 requirement of 65% and PEEP of 5. No significant secretions were noted by respiratory therapy. He is currently sedated on both propofol and fentanyl. 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) FEV1 44% of predicted on PFT 12/15/2016 at [facility] Diastolic dysfunction (Chronic) 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) Essential hypertension (Chronic) Paroxysmal atrial flutter (Chronic) Non-rheumatic tricuspid valve insufficiency (Chronic) Aortic valve stenosis, nonrheumatic (Chronic) 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) 06/11/17 Chronic respiratory failure (Chronic) Conduction disorder of the heart (Chronic) Pulmonary hypertension (Chronic) GERD (gastroesophageal reflux disease) (Chronic) Bullous emphysema (Chronic) Medical History: Medical History (Last Reviewed 04/02/20 @ 11:37 by Shu Chahal RACE ENGINE BUILDER, RACE ENGINE BUILDER-C) Colon polyps (Chronic) 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) I44.1 Paroxysmal atrial flutter (Chronic) I48.92 Aortic valve stenosis, nonrheumatic (Chronic) I35.0 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) I44.1 Chronic respiratory failure (Chronic) J96.10 Conduction disorder of the heart (Chronic) I45.9 Pulmonary hypertension (Chronic) I27.20 GERD (gastroesophageal reflux disease) (Chronic) K21.9 Bullous emphysema (Chronic) J43.9 Lung cancer (Inactive) C34.90 Allergies ampicillin Allergy (Verified 04/02/20 11:11) Anaphylaxis azithromycin Allergy (Verified 04/02/20 11:11) Rash codeine Allergy (Verified 04/02/20 11:11) Rash penicillin G Allergy (Verified 04/02/20 11:11) Rash Sulfa (Sulfonamide Antibiotics) Allergy (Verified 04/02/20 11:11) Rash sulfamethoxazole [From Bactrim] Allergy (Verified 08/28/20 11:11) Rash trimethoprim [From Bactrim] Allergy (Verified 04/02/20 11:11) Rash Home Medications: Ambulatory Orders Medication Instructions Recorded albuterol sulfate 90 mcg/actuation 2 puff INHALATION Q6H PRN #18 g 11/25/19 aerosol inhaler Cholecalciferol (VIT D3) [Vitamin 1,000 unit PO DAILY 03/16/20 D3] Fluticasone/Umeclidin/Vilanter 1 inhaler INHALATION DAILY 03/16/20 [Trelegy Ellipta 100-62.5-25] Furosemide 40 mg PO DAILY 03/16/20 docusate sodium 100 mg capsule 100 mg PO DAILY 03/31/20 Acetaminophen [Tylenol Arthritis] 650 mg PO Q6H PRN PRN 04/15/20 Losartan Potassium [Cozaar] 25 mg PO DAILY 04/15/20 Paroxetine HCl [Paxil] 10 mg PO QHS 04/15/20 Potassium Chloride [Klor-Con M10] 10 meq PO DAILY 04/15/20 Prednisone 5 mg PO QODAY 04/15/20 Surgical History: Surgical History (Last Reviewed 04/02/20 @ 11:37 by Shu Chahal RACE ENGINE BUILDER, RACE ENGINE BUILDER-C) History of permanent cardiac pacemaker placement (Chronic) Z95.0 06/11/17 History of appendectomy (Inactive) Z98.890, Z90.49 Hx of cataract surgery (Inactive) Z98.49 Surgical History: appendectomy, cataract, pacemaker implantation Psychiatric History: Anxiety, Depression Lives: Spouse/ Significant Other Smoking Status: Former smoker Tobacco Use: Cigarettes, Cigars Drugs: None - *Family History Paternal Family History: Family History (Last Reviewed 04/15/20 @ 18:09 by Xena Hernandez NP, RACE ENGINE BUILDER-C) Brother Diabetes Sister Diabetes Lung cancer History Items: Heart Disease - Father with history of heart disease, at age 96. Offspring Family History: Family History (Last Reviewed 04/15/20 @ 18:09 by Xena Hernandez NP, RACE ENGINE BUILDER-C) Brother Diabetes Sister Diabetes Lung cancer History Items: COPD Sibling Family History: Family History (Last Reviewed 04/15/20 @ 18:09 by Xena Hernandez NP, RACE ENGINE BUILDER-C) Brother Diabetes Sister Diabetes Lung cancer History Items: COPD, Diabetes, Heart Disease Maternal Family History: Family History (Last Reviewed 04/15/20 @ 18:09 by Xena Hernandez RACE ENGINE BUILDER, RACE ENGINE BUILDER-C) Brother Diabetes Sister Diabetes Lung cancer History Items: Heart Disease, - - osteoporosis Review of Systems Unable to obtain accurate/complete ROS d/t: Due to current intubation and mechanical ventilation status. Patient Problems: Active and Suspected Problems (Last Reviewed 04/02/20 @ 11:37 by Shu Chahal RACE ENGINE BUILDER, RACE ENGINE BUILDER-C) Acute respiratory failure with hypoxia and hypercapnia (Acute) Septic shock (Acute) Pneumonia of both lower lobes (Suspected) Pneumonia of both lower lobes (Acute) - Physical Exam Vitals/I&O's: Vital Signs Temp Pulse Resp BP Pulse Ox 99.8 F H 77 16 110/46 L 98 04/16/20 06:00 04/16/20 06:00 04/16/20 06:00 04/16/20 06:00 04/16/20 06:00 Oxygen Delivery Method Mechanical Ventilator Weight: 136 lb 10.986 oz Body Mass Index (BMI) 19.0 Intake and Output for Last 24 Hours 04/14/20 04/15/20 04/16/20 23:59 23:59 23:59 Intake Total 2876.48 / 2887.63 1024.68 / 1024.68 Output Total 95 / 195 300 / 300 Balance 2781.48 / 2692.63 724.68 / 724.68 General: - - Intubated, sedated and mechanically ventilated. No ventilator dyssynchrony noted. HEENT: Atraumatic, PERRLA, Normocephalic Oral: No Gingival or Mucosal Lesions/ Ulcerations, - - Endotracheal and OG tubes currently in place Neck: Supple, No Nodes, Trachea Midline Lungs: No rhonchi, No wheeze, No rales, Diminished, - - Increased AP diameter Cardiovascular: Regular rate, Regular Rhythm, - - Harsh systolic murmur. Paced rhythm. Abdomen: Bowel Sounds Present, Soft, Non Tender Extremities: No clubbing, No cyanosis Skin: No breakdown Musculoskeletal: No Tenderness to Palpation of Joints or Extremities Lymphatic: No Cervical, Supraclavicular, or Inguinal Adenopathy Neurological: - - No focal neurological deficits. Currently sedated on the ventilator with a RASS of -1. Will respond to verbal stimulation. Labs (Last 48 Hours) 04/15/20 04/15/20 04/15/20 16:35 16:35 16:35 WBC 9.5 RBC 3.50 L Hgb 10.3 L Hct 35.7 L MCV 102.0 H MCH 29.4 MCHC 28.9 L RDW Std Deviation 51.8 H RDW Coeff of Earline 13.8 Plt Count 260 MPV 10.2 Immature Gran % (Auto) 0.600 Neut % (Auto) 67.0 Lymph % (Auto) 23.8 [place] % (Auto) 8.1 Eos % (Auto) 0.2 Baso % (Auto) 0.3 Absolute Neuts (auto) 6.4 Absolute Lymphs (auto) 2.27 Nucleated RBC % 0 Differential Comment PT 12.7 INR 1.0 APTT 29.3 Specimen Type Sample Site pH Bicarbonate Actual Total CO2 Base Excess O2 Saturation O2 % ABG pCO2 ABG pO2 Mo Test Respiration Rate O2 Delivery Device Vent Mode Tidal Volume Sodium 138 Potassium 4.1 Chloride 98 Carbon Dioxide 31.0 Anion Gap 9 BUN 17 Creatinine 0.88 Estim Creat Clear Calc 56.95 Est GFR (MDRD) Af Amer 106 Est GFR (MDRD) Non-Af 88 BUN/Creatinine Ratio 19.3 Glucose 328 H Lactic Acid Calcium 9.4 Magnesium Total Bilirubin 0.40 AST 63 H ALT 90 H Alkaline Phosphatase 102 Total Creatine Kinase 71 Troponin I B-Natriuretic Peptide Total Protein 7.0 Albumin 3.4 Globulin 3.6 Albumin/Globulin Ratio 0.9 Urine Color Urine Clarity Urine pH Ur Specific Booker Urine Protein Urine Glucose (UA) Urine Ketones Urine Occult Blood Urine Nitrite Urine Bilirubin Urine Urobilinogen Ur Leukocyte Esterase Urine RBC Urine WBC Ur Squamous Epith Cells Urine Bacteria Hyaline Casts Urine Mucus COVID-19 (SKINNY) MRSA (PCR) POC Glucose 04/15/20 04/15/20 04/15/20 16:35 17:03 17:11 WBC RBC Hgb Hct MCV MCH MCHC RDW Std Deviation RDW Coeff of Earline Plt Count MPV Immature Gran % (Auto) Neut % (Auto) Lymph % (Auto) [place] % (Auto) Eos % (Auto) Baso % (Auto) Absolute Neuts (auto) Absolute Lymphs (auto) Nucleated RBC % Differential Comment PT INR APTT Specimen Type ART Sample Site R Radial pH 7.19 L* Bicarbonate Actual 32.3 H Total CO2 35 Base Excess 4 H O2 Saturation 100 H O2 % 100 ABG pCO2 84.0 H* ABG pO2 296 H Mo Test Positive Respiration Rate 12.0000 O2 Delivery Device ET Tube Vent Mode AC Tidal Volume 450 Sodium Potassium Chloride Carbon Dioxide Anion Gap BUN Creatinine Estim Creat Clear Calc Est GFR (MDRD) Af Amer Est GFR (MDRD) Non-Af BUN/Creatinine Ratio Glucose Lactic Acid 8.3 H* Calcium Magnesium Total Bilirubin AST ALT Alkaline Phosphatase Total Creatine Kinase Troponin I B-Natriuretic Peptide Total Protein Albumin Globulin Albumin/Globulin Ratio Urine Color Urine Clarity Urine pH Ur Specific [place] Urine Protein Urine Glucose (UA) Urine Ketones Urine Occult Blood Urine Nitrite Urine Bilirubin Urine Urobilinogen Ur Leukocyte Esterase Urine RBC Urine WBC Ur Squamous Epith Cells Urine Bacteria Hyaline Casts Urine Mucus COVID-19 (SKINNY) Negative MRSA (PCR) POC Glucose 04/15/20 04/15/20 04/15/20 18:50 20:21 21:00 WBC RBC Hgb Hct MCV MCH MCHC RDW Std Deviation RDW Coeff of Earline Plt Count MPV Immature Gran % (Auto) Neut % (Auto) Lymph % (Auto) [place] % (Auto) Eos % (Auto) Baso % (Auto) Absolute Neuts (auto) Absolute Lymphs (auto) Nucleated RBC % Differential Comment PT INR APTT Specimen Type Sample Site pH Bicarbonate Actual Total CO2 Base Excess O2 Saturation O2 % ABG pCO2 ABG pO2 Mo Test Respiration Rate O2 Delivery Device Vent Mode Tidal Volume Sodium Potassium Chloride Carbon Dioxide Anion Gap BUN Creatinine Estim Creat Clear Calc Est GFR (MDRD) Af Amer Est GFR (MDRD) Non-Af BUN/Creatinine Ratio Glucose Lactic Acid Calcium Magnesium 2.6 Total Bilirubin AST ALT Alkaline Phosphatase Total Creatine Kinase Troponin I B-Natriuretic Peptide Total Protein Albumin Globulin Albumin/Globulin Ratio Urine Color Straw Urine Clarity Clear Urine pH 6.0 Ur Specific [place] 1.025 Urine Protein 100 H Urine Glucose (UA) 1000 H Urine Ketones Negative Urine Occult Blood 25 H Urine Nitrite Negative Urine Bilirubin Negative Urine Urobilinogen Normal Ur Leukocyte Esterase Negative Urine RBC 0-5 SEEN Urine WBC 0 SEEN Ur Squamous Epith Cells 0-5 SEEN Urine Bacteria 0 SEEN Hyaline Casts 0-5 SEEN Urine Mucus 0 SEEN COVID-19 (SKINNY) MRSA (PCR) Negative POC Glucose 04/15/20 04/15/20 04/16/20 22:15 22:55 00:39 WBC RBC Hgb Hct MCV MCH MCHC RDW Std Deviation RDW Coeff of Earline Plt Count MPV Immature Gran % (Auto) Neut % (Auto) Lymph % (Auto) [place] % (Auto) Eos % (Auto) Baso % (Auto) Absolute Neuts (auto) Absolute Lymphs (auto) Nucleated RBC % Differential Comment PT INR APTT Specimen Type ART Sample Site R Radial pH 7.27 L Bicarbonate Actual 30.7 H Total CO2 33 Base Excess 4 H O2 Saturation 88 L O2 % 60 ABG pCO2 66.5 H ABG pO2 65 L Mo Test Respiration Rate 16.0000 O2 Delivery Device Adult Vent Vent Mode AC Tidal Volume 450 Sodium Potassium Chloride Carbon Dioxide Anion Gap BUN Creatinine Estim Creat Clear Calc Est GFR (MDRD) Af Amer Est GFR (MDRD) Non-Af BUN/Creatinine Ratio Glucose Lactic Acid 1.6 Calcium Magnesium Total Bilirubin AST ALT Alkaline Phosphatase Total Creatine Kinase Troponin I B-Natriuretic Peptide Total Protein Albumin Globulin Albumin/Globulin Ratio Urine Color Urine Clarity Urine pH Ur Specific [place] Urine Protein Urine Glucose (UA) Urine Ketones Urine Occult Blood Urine Nitrite Urine Bilirubin Urine Urobilinogen Ur Leukocyte Esterase Urine RBC Urine WBC Ur Squamous Epith Cells Urine Bacteria Hyaline Casts Urine Mucus COVID-19 (SKINNY) MRSA (PCR) POC Glucose 120 H 04/16/20 04/16/20 04/16/20 04:05 04:05 04:05 WBC 7.0 RBC 2.82 L Hgb 8.3 L Hct 27.9 L MCV 98.9 H MCH 29.4 MCHC 29.7 L RDW Std Deviation 49.3 H RDW Coeff of Earline 13.6 Plt Count 193 MPV 9.2 Immature Gran % (Auto) 0.600 Neut % (Auto) 92.0 H Lymph % (Auto) 4.9 L [place] % (Auto) 2.4 Eos % (Auto) 0.0 Baso % (Auto) 0.1 Absolute Neuts (auto) 6.4 Absolute Lymphs (auto) 0.34 L Nucleated RBC % 0 Differential Comment SCANNED PT INR APTT Specimen Type Sample Site pH Bicarbonate Actual Total CO2 Base Excess O2 Saturation O2 % ABG pCO2 ABG pO2 Mo Test Respiration Rate O2 Delivery Device Vent Mode Tidal Volume Sodium 138 Potassium 4.5 Chloride 105 Carbon Dioxide 30.0 Anion Gap 3 L BUN 17 Creatinine 0.42 L Estim Creat Clear Calc 47.74 Est GFR (MDRD) Af Amer 247 Est GFR (MDRD) Non-Af 204 BUN/Creatinine Ratio 40.1 H Glucose 145 H Lactic Acid Calcium 8.0 L Magnesium Total Bilirubin AST ALT Alkaline Phosphatase Total Creatine Kinase Troponin I Pending B-Natriuretic Peptide Total Protein Albumin Globulin Albumin/Globulin Ratio Urine Color Urine Clarity Urine pH Ur Specific [place] Urine Protein Urine Glucose (UA) Urine Ketones Urine Occult Blood Urine Nitrite Urine Bilirubin Urine Urobilinogen Ur Leukocyte Esterase Urine RBC Urine WBC Ur Squamous Epith Cells Urine Bacteria Hyaline Casts Urine Mucus COVID-19 (SKINNY) MRSA (PCR) POC Glucose 04/16/20 04:05 WBC RBC Hgb Hct MCV MCH MCHC RDW Std Deviation RDW Coeff of Earline Plt Count MPV Immature Gran % (Auto) Neut % (Auto) Lymph % (Auto) [place] % (Auto) Eos % (Auto) Baso % (Auto) Absolute Neuts (auto) Absolute Lymphs (auto) Nucleated RBC % Differential Comment PT INR APTT Specimen Type Sample Site pH Bicarbonate Actual Total CO2 Base Excess O2 Saturation O2 % ABG pCO2 ABG pO2 Mo Test Respiration Rate O2 Delivery Device Vent Mode Tidal Volume Sodium Potassium Chloride Carbon Dioxide Anion Gap BUN Creatinine Estim Creat Clear Calc Est GFR (MDRD) Af Amer Est GFR (MDRD) Non-Af BUN/Creatinine Ratio Glucose Lactic Acid Calcium Magnesium Total Bilirubin AST ALT Alkaline Phosphatase Total Creatine Kinase Troponin I B-Natriuretic Peptide Pending Total Protein Albumin Globulin Albumin/Globulin Ratio Urine Color Urine Clarity Urine pH Ur Specific [place] Urine Protein Urine Glucose (UA) Urine Ketones Urine Occult Blood Urine Nitrite Urine Bilirubin Urine Urobilinogen Ur Leukocyte Esterase Urine RBC Urine WBC Ur Squamous Epith Cells Urine Bacteria Hyaline Casts Urine Mucus COVID-19 (SKINNY) MRSA (PCR) POC Glucose Microbiology 04/15/20 21:15 Urine Catheter - Catheter Streptococcus pneumoniae Antigen (M - Final 04/15/20 21:15 Urine Catheter - Catheter Legionella Antigen - Final Clinical Impression(s) from Imaging Studies Chest X-Ray 04/15/20 16:40 IMPRESSION: Diffuse coarse fibrotic pattern of the lungs and bibasilar infiltrates and/or atelectasis, stable in the interval. Bilateral perihilar infiltrates are noted new in the interval. Right costophrenic angle blunting consistent with small effusion or pleural reaction, also stable in the interval. Electronically Signed: Mihai Terry MD at 17:18 EDT , Service support , Chest X-Ray 04/15/20 16:40 IMPRESSION: Nasogastric and endotracheal tubes seen appearing in adequate position. Diffuse coarse fibrotic changes of the lungs bilaterally. Bilateral mid and lower lung field infiltrates and/or atelectasis. Right costophrenic angle blunting which may represent small effusion or pleural reaction. Excluding the newly placed endotracheal and nasogastric tubes, findings are similar to the prior study of earlier this date. Electronically Signed: Mihai Terry MD at 17:06 EDT , Service support , Chest X-Ray 04/16/20 05:55 IMPRESSION: Bilateral infiltrates and pleural effusions, as described. at 0443 Reported and signed by: Kira Clement MD Electronically Signed: Kira Clement MD at 4:42 EDT Tel , Service support , Current Medications Acetaminophen (Tylenol) 650 mg PO Q6H PRN PRN PRN Reason: Pain Score 1-10 /Temp>100.7 Albuterol Sulfate (Ventolin Aerosols) 2.5 mg INHALATION Q2H PRN PRN PRN Reason: DYSPNEA Albuterol/Ipratropium (Duoneb) 3 ml INHALATION Q4H.RT WEI Last Admin: 04/16/20 06:22 Dose: 3 ml Documented by: Bisacodyl (Dulcolax) 10 mg RECTAL DAILY PRN PRN PRN Reason: Constipation Enoxaparin Sodium (Lovenox) 40 mg SC DAILY WEI Hydralazine HCl (Apresoline Iv) 10 mg IV Q4H PRN PRN PRN Reason: SBP > 160 Propofol (Diprivan) 1,000 mg in 100 mls @ 3.798 mls/hr CONT INF .Q12H WEI; Protocol Last Titration: 04/16/20 06:00 Dose: 10 mcg/kg/min, 3.8 mls/hr Documented by: Sodium Chloride () 1,000 mls @ 100 mls/hr IV .Q10H WEI Last Admin: 04/16/20 05:55 Dose: 100 mls/hr Documented by: Meropenem 1 gm/ Sodium (Chloride) 120 mls @ 33 mls/hr IV Q8 [facility], [facility]1983 Last Admin: 04/16/20 05:42 Dose: 33 mls/hr Documented by: Famotidine 20 mg/ Sodium (Chloride) 10 mls @ 300 mls/hr IV Q12 [facility]1983 Last Infusion: 04/15/20 22:46 Dose: Infused Documented by: Fentanyl Citrate 1,000 mcg/ (Sodium Chloride) 100 mls @ 2.5 mls/hr CONT INF .Q40H WEI; Protocol Last Titration: 04/16/20 06:00 Dose: 100 mcg/hr, 10 mls/hr Documented by: Sodium Chloride () 250 mls @ 15 mls/hr IV .[id number] PRN PRN Reason: Saline Flush Sodium Chloride () 250 mls @ 15 mls/hr IV .[id number] PRN PRN Reason: Additional IVPB Infusion Norepinephrine Bitartrate 8 mg (/ Sodium Chloride) 250 mls @ 9.375 mls/hr CONT INF .[id number] WEI; Protocol Last Titration: 04/16/20 06:00 Dose: 8 mcg/min, 15 mls/hr Documented by: Insulin Human Lispro (Humalog Kwikpen (Bkc)) 0 unit SC Q6 WEI; Protocol Last Admin: 04/16/20 05:41 Dose: Not Given Documented by: Methylprednisolone (Solu-Medrol) 40 mg IV Q8 WEI Last Admin: 04/16/20 05:46 Dose: 40 mg Documented by: Ondansetron HCl (Zofran) 4 mg IV Q8H PRN PRN PRN Reason: NAUSEA/VOMITING Prochlorperazine Edisylate (Compazine Iv) 10 mg IV Q6H PRN PRN PRN Reason: Nausea/Vomiting Sodium Chloride () 10 - 40 ml IV UD PRN PRN Reason: SALINE FLUSH Last Admin: 04/15/20 21:37 Dose: 20 ml Documented by: Assessment/Plan Active and Suspected Problems (Last Reviewed 04/02/20 @ 11:37 by Shu Chahal RACE ENGINE BUILDER, RACE ENGINE BUILDER-C) Acute respiratory failure with hypoxia and hypercapnia (Acute) Septic shock (Acute) Pneumonia of both lower lobes (Suspected) Pneumonia of both lower lobes (Acute) RECOMMENDATIONS: 1. Continue empiric antimicrobials, pending infectious work-up. We will plan to discontinue Levaquin today. Meropenem will be continued. 2. Obtain respiratory viral panel. 3. Check troponin and BNP. 4. Obtain echocardiogram to evaluate for progressive valvular heart disease. 5. Wean FiO2 to maintain oxygen saturations 88 to 92%. 6. Start tube feeds today. 7. Continue scheduled bronchodilators and IV steroids. 8. Continue Levophed with a goal to maintain a mean arterial pressure at or above 65 mmHg. 9. Continue appropriate ICU prophylaxis. IMPRESSIONS: 1. 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 He has a history of frequent exacerbations requiring hospitalization. CODE STATUS and goals of care have been discussed extensively with the patient during prior hospitalizations and in the outpatient pulmonary clinic. Despite recommendations to consider referral to palliative care, the patient has refused in the past. While underlying pneumonia is a potential contributing etiology to the patient's decompensation, he also has an elevated BNP along with a history of pulmonary hypertension and heart failure with preserved ejection fraction. In addition, he has underlying valvular heart disease. Therefore, I would recommend that we continue empiric antimicrobials for now, pending infectious work-up. Scheduled bronchodilators and IV steroids will be continued. Recommend weaning FiO2 to maintain oxygen saturations 88 to 92%. Will obtain echocardiogram to evaluate for possible progressive valvular heart disease. Tube feeds can be started today from my perspective. 2. Distributive shock Likely a combination of septic shock and vasodilatation produced by sedative medication use. Plan to continue vasopressor support to maintain a mean arterial pressure at or above 65 mmHg. 3. History of aortic stenosis/second-degree AV block/paroxysmal atrial fibrillation/pulmonary hypertension Complicates care, management, recovery and prognosis. Hold Lasix and antihypertensives, given hypotension. The patient will require both physical therapy and speech therapy evaluations once medically stabilized. He does have a history of dysphasia and has been worked up in the past over concerns for recurrent aspiration. TIME: 42 minutes of critical care time, independent of procedures, was spent addressing the patient's acute on chronic combined respiratory failure, end- stage COPD with exacerbation, distributive shock, review of all data and collaboration with the care team. [id number]) [id number] Critical care first hour
--- NOTE | 2020-04-16 07:04 | ECHOD_ITS ---
Reason For Study: MURMUR Procedure This was a 2D Doppler, Color Flow transthoracic echocardiogram. Definity deferred due to increased PAP. Exam performed portable in ICU/CCU. Left Ventricle Normal LV size. The estimated ejection fraction is 55 %. Left ventricular systolic function is normal. There is evidence of diastolic dysfunction. Right Ventricle Normal systolic function. presence of pacemaker lead. Atria Normal left atrium. Normal right atrium. Mitral Valve Severe diffuse mitral valve calcification. Mild mitral valve stenosis. Tricuspid Valve Moderate (2+) tricuspid valve insufficiency. Pulmonary artery systolic pressure is 89 mmHg. Severe pulmonary hypertension. Aortic Valve Peak aortic valve gradient 93 mmHg. Mean aortic valve gradient 54 mmHg. Severe aortic stenosis. Pulmonic Valve Mild (1+) eccentric pulmonic valve insufficiency. Great Vessels Normal ascending aorta. Pericardium/Pleural No pericardial effusion. MMode/2D Measurements & Calculations LVIDd: 4.1 cm IVSd: 1.1 cm LVOT diam: 2.0 cm LVIDs: 2.6 cm LVPWd: 1.2 cm LVOT area: 3.1 cm2 RVDd: 3.9 cm FS: 37.2 % Ao root diam: 3.4 cm LAV(MOD-bp): 48.0 ml LVAd ap4: 22.7 cm2 LAV(MOD-bp) Indexed: 27.1 ml/m2 EDV(MOD-sp4): 58.7 ml LAV(MOD-sp2): 39.5 ml EDV(sp4-el): 58.9 ml LAV(MOD-sp4): 56.5 ml LVAs ap4: 11.6 cm2 ESV(MOD-sp4): 18.0 ml ESV(sp4-el): 18.5 ml EF(MOD-sp4): 69.4 % EF(sp4-el): 68.6 % SV(MOD-sp4): 40.7 ml SV(sp4-el): 40.4 ml LA A4 area: 19.7 cm2 LA dimension(2D): 4.0 cm RA A4 area: 14.4 cm2 Time Measurements MV dec time: 0.32 sec Doppler Measurements & Calculations MV E max herb: 130.6 cm/sec Lat Peak E' Herb: 7.8 cm/sec Med Peak E' Herb: 4.7 cm/sec MV A max herb: 173.9 cm/sec E/E' lat: 16.8 E/E' med: 27.5 MV E/A: 0.75 MV V2 max: 200.9 cm/sec MV P1/2t max herb: 139.8 cm/sec Ao V2 max: 483.4 cm/sec MV max P.2 mmHg MV P1/2t: 98.2 msec Ao max P.5 mmHg MV V2 mean: 112.3 cm/sec Ao V2 mean: 350.7 cm/sec MV mean P.7 mmHg MV dec slope: 416.7 cm/sec2 Ao mean P.4 mmHg MV V2 VTI: 44.6 cm MVA(P1/2t): 2.2 cm2 Ao V2 VTI: 106.0 cm MVA(VTI): 1.5 cm2 YVONNE(I,D): 0.64 cm2 YVONNE(V,D): 0.67 cm2 LV V1 max: 103.9 cm/sec SV(LVOT): 67.7 ml PA V2 max: 131.5 cm/sec LV V1 max P.3 mmHg LV V1 mean P.2 mmHg LV V1 mean: 68.7 cm/sec LV V1 VTI: 21.7 cm PI end-d herb: 173.7 cm/sec TR max herb: 450.6 cm/sec TR max P.2 mmHg Interpretation Summary Normal LV size. The estimated ejection fraction is 55 %. Left ventricular systolic function is normal. There is evidence of diastolic dysfunction. Moderate (2+) tricuspid valve insufficiency. Pulmonary artery systolic pressure is 89 mmHg. Severe pulmonary hypertension. Severe aortic stenosis. Peak aortic valve gradient 93 mmHg. Mean aortic valve gradient 54 mmHg. Ordering Physician: Janusz Mccartney Referring Physician: ED BECKWITH Performed By: Thuy Mckenna RDCS
--- NOTE | 2020-04-16 07:13 | PCM.PN.HOSP ---
Patient Problems: Active and Suspected Problems (Last Reviewed 04/02/20 @ 11:37 by Shu Chahal FLUX PLANT OPERATOR, FLUX PLANT OPERATOR-C) Acute respiratory failure with hypoxia and hypercapnia (Acute) Septic shock (Acute) Pneumonia of both lower lobes (Suspected) Pneumonia of both lower lobes (Acute) Reason for Visit: Acute hypoxic respiratory failure Subjective: Patient is an 84-year-old gentleman with multiple comorbidities admitted with progressive shortness of breath. An assessment of acute hypoxic respiratory failure made patient was intubated and admitted to the intensive care unit. Objective: GENERAL: Awake on the vent HEENT: Atraumatic; EYES; Anicteric, Normal Conjunctiva NECK; supple, normal thyroid, RESPIRATORY: Diminished to auscultation CARDIOVASCULAR: Regular S1 S2, GI: soft, normoactive bowel sounds, : No Renal angle tenderness; EXTREMITIES: No edema, no clubbing, MUSCULOSKELETAL: no muscle waisting NEURO: Awake on the vent SKIN: No Rash Vitals/I&O's: Vital Signs Temp Pulse Resp BP Pulse Ox 99.8 F H 80 21 H 110/46 L 100 04/16/20 06:00 04/16/20 06:22 04/16/20 06:22 04/16/20 06:00 04/16/20 06:22 Oxygen Delivery Method Mechanical Ventilator Weight: 62 kg Body Mass Index (BMI) 19.0 Intake and Output for Last 24 Hours 04/14/20 04/15/20 04/16/20 23:59 23:59 23:59 Intake Total 2876.48 / 2887.63 1118.01 / 1118.01 Output Total 95 / 195 300 / 300 Balance 2781.48 / 2692.63 818.01 / 818.01 Microbiology Past 72 Hours 04/15/20 21:15 Urine Catheter - Catheter Streptococcus pneumoniae Antigen (M - Final 04/15/20 21:15 Urine Catheter - Catheter Legionella Antigen - Final Laboratory Results 04/15/20 16:35: WBC 9.5, RBC 3.50 L, Hgb 10.3 L, Hct 35.7 L, MCV 102.0 H, MCH 29.4, MCHC 28.9 L, RDW Std Deviation 51.8 H, RDW Coeff of Earline 13.8, Plt Count 260, MPV 10.2, Immature Gran % (Auto) 0.600, Neut % (Auto) 67.0, Lymph % (Auto) 23.8, [place] % (Auto) 8.1, Eos % (Auto) 0.2, Baso % (Auto) 0.3, Absolute Neuts (auto) 6.4, Absolute Lymphs (auto) 2.27, Nucleated RBC % 0 04/15/20 16:35: PT 12.7, INR 1.0, APTT 29.3 04/15/20 16:35: Sodium 138, Potassium 4.1, Chloride 98, Carbon Dioxide 31.0, Anion Gap 9, BUN 17, Creatinine 0.88, Estim Creat Clear Calc 56.95, Est GFR (MDRD) Af Amer 106, Est GFR (MDRD) Non-Af 88, BUN/Creatinine Ratio 19.3, Glucose 328 H, Calcium 9.4, Total Bilirubin 0.40, AST 63 H, ALT 90 H, Alkaline Phosphatase 102, Total Creatine Kinase 71, Total Protein 7.0, Albumin 3.4, Globulin 3.6, Albumin/Globulin Ratio 0.9 04/15/20 16:35: Lactic Acid 8.3 H* 04/15/20 17:03: COVID-19 (SKINNY) Negative 04/15/20 17:11: Specimen Type ART, Sample Site R Radial, pH 7.19 L*, Bicarbonate Actual 32.3 H, Total CO2 35, Base Excess 4 H, O2 Saturation 100 H, O2 % 100, ABG pCO2 84.0 H*, ABG pO2 296 H, Mo Test Positive, Respiration Rate 12.0000, O2 Delivery Device ET Tube, Vent Mode AC, Tidal Volume 450 04/15/20 18:50: Urine Color Straw, Urine Clarity Clear, Urine pH 6.0, Ur Specific [place] 1.025, Urine Protein 100 H, Urine Glucose (UA) 1000 H, Urine Ketones Negative, Urine Occult Blood 25 H, Urine Nitrite Negative, Urine Bilirubin Negative, Urine Urobilinogen Normal, Ur Leukocyte Esterase Negative, Urine RBC 0-5 SEEN, Urine WBC 0 SEEN, Ur Squamous Epith Cells 0-5 SEEN, Urine Bacteria 0 SEEN, Hyaline Casts 0-5 SEEN, Urine Mucus 0 SEEN 04/15/20 20:21: Magnesium 2.6 04/15/20 21:00: MRSA (PCR) Negative 04/15/20 22:15: Lactic Acid 1.6 04/15/20 22:55: Specimen Type ART, Sample Site R Radial, pH 7.27 L, Bicarbonate Actual 30.7 H, Total CO2 33, Base Excess 4 H, O2 Saturation 88 L, O2 % 60, ABG pCO2 66.5 H, ABG pO2 65 L, Respiration Rate 16.0000, O2 Delivery Device Adult Vent, Vent Mode AC, Tidal Volume 450 04/16/20 00:39: POC Glucose 120 H 04/16/20 04:05: WBC 7.0, RBC 2.82 L, Hgb 8.3 L, Hct 27.9 L, MCV 98.9 H, MCH 29.4, MCHC 29.7 L, RDW Std Deviation 49.3 H, RDW Coeff of [place] 13.6, Plt Count 193, MPV 9.2, Immature Gran % (Auto) 0.600, Neut % (Auto) 92.0 H, Lymph % (Auto) 4.9 L, [place] % (Auto) 2.4, Eos % (Auto) 0.0, Baso % (Auto) 0.1, Absolute Neuts (auto) 6.4, Absolute Lymphs (auto) 0.34 L, Nucleated RBC % 0, Differential Comment SCANNED 04/16/20 04:05: Sodium 138, Potassium 4.5, Chloride 105, Carbon Dioxide 30.0, Anion Gap 3 L, BUN 17, Creatinine 0.42 L, Estim Creat Clear Calc 47.74, Est GFR (MDRD) Af Amer 247, Est GFR (MDRD) Non-Af 204, BUN/Creatinine Ratio 40.1 H, Glucose 145 H, Calcium 8.0 L 04/16/20 04:05: Troponin I 0.283 H 04/16/20 04:05: B-Natriuretic Peptide Pending Current Medications Acetaminophen (Tylenol) 650 mg PO Q6H PRN PRN PRN Reason: Pain Score 1-10 /Temp>100.7 Albuterol Sulfate (Ventolin Aerosols) 2.5 mg INHALATION Q2H PRN PRN PRN Reason: DYSPNEA Albuterol/Ipratropium (Duoneb) 3 ml INHALATION Q4H.RT WEI Last Admin: 04/16/20 06:22 Dose: 3 ml Documented by: Bisacodyl (Dulcolax) 10 mg RECTAL DAILY PRN PRN PRN Reason: Constipation Enoxaparin Sodium (Lovenox) 40 mg SC DAILY [facility] Hydralazine HCl (Apresoline Iv) 10 mg IV Q4H PRN PRN PRN Reason: SBP > 160 Propofol (Diprivan) 1,000 mg in 100 mls @ 3.798 mls/hr CONT INF .Q12H [facility]; Protocol Last Titration: 04/16/20 06:00 Dose: 10 mcg/kg/min, 3.8 mls/hr Documented by: Meropenem 1 gm/ Sodium (Chloride) 120 mls @ 33 mls/hr IV Q8 [facility] Last Admin: 04/16/20 05:42 Dose: 33 mls/hr Documented by: Famotidine 20 mg/ Sodium (Chloride) 10 mls @ 300 mls/hr IV Q12 [facility] Last Infusion: 04/15/20 22:46 Dose: Infused Documented by: Fentanyl Citrate 1,000 mcg/ (Sodium Chloride) 100 mls @ 2.5 mls/hr CONT INF .Q40H [facility]; Protocol Last Titration: 04/16/20 06:00 Dose: 100 mcg/hr, 10 mls/hr Documented by: Sodium Chloride () 250 mls @ 15 mls/hr IV .[id number] PRN PRN Reason: Saline Flush Sodium Chloride () 250 mls @ 15 mls/hr IV .[id number] PRN PRN Reason: Additional IVPB Infusion Norepinephrine Bitartrate 8 mg (/ Sodium Chloride) 250 mls @ 9.375 mls/hr CONT INF .[id number] [facility]; Protocol Last Titration: 04/16/20 06:00 Dose: 8 mcg/min, 15 mls/hr Documented by: Insulin Human Lispro (Humalog Kwikpen (Bkc)) 0 unit SC Q6 [facility]; Protocol Last Admin: 04/16/20 05:41 Dose: Not Given Documented by: Methylprednisolone (Solu-Medrol) 40 mg IV Q8 [facility] Last Admin: 04/16/20 05:46 Dose: 40 mg Documented by: Ondansetron HCl (Zofran) 4 mg IV Q8H PRN PRN PRN Reason: NAUSEA/VOMITING Prochlorperazine Edisylate (Compazine Iv) 10 mg IV Q6H PRN PRN PRN Reason: Nausea/Vomiting Sodium Chloride () 10 - 40 ml IV UD PRN PRN Reason: SALINE FLUSH Last Admin: 04/15/20 21:37 Dose: 20 ml Documented by: STROKE Vital Signs/Narrative: Vital Signs Temp Pulse Resp BP Pulse Ox 04/16/20 06:22 80 21 H 100 04/16/20 06:00 99.8 F H 77 16 110/46 L 98 04/16/20 05:05 76 16 100 04/16/20 05:00 99.9 F H 77 16 118/47 L 100 04/16/20 04:00 100.2 F H 81 16 126/56 H 100 04/16/20 03:37 84 Medical Necessity - Tobacco Use Smoking Status: Former smoker Tobacco Use: Cigarettes, Cigars Assessment/Plan All Active Problems (Last Reviewed 04/02/20 @ 11:37 by Shu Chahal FLUX PLANT OPERATOR, FLUX PLANT OPERATOR-C) Acute on chronic respiratory failure with hypoxia (Acute) Acute respiratory failure with hypoxia and hypercapnia (Acute) Septic shock (Acute) Pneumonia of both lower lobes (Acute) Patient is an 84-year-old gentleman with multiple comorbidities admitted with progressive shortness of breath. An assessment of acute hypoxic respiratory failure made patient was intubated and admitted to the intensive care unit. 1. Acute on chronic hypoxic and hypercapnic respiratory failure secondary to end-stage COPD with exacerbation ?Patient was intubated in the emergency department. Left on the vent admitted to the intensive care unit patient managed with systemic steroid, bronchodilator treatment as well as antibiotics with consultation placed to pulmonary medicine for vent management 2. Septic shock ?Secondary to recommendation of suspected underlying pneumonia and hypovolemia Patient responded to treatment 3. Chronic congestive heart failure with preserved ejection fraction ?EF on an echo obtained September 2019 demonstrated EF of 55% 4. Hypertension - Blood pressure controlled, home medications continued with dose adjustment as needed 5. 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 Paroxysmal A. fib With controlled patient not on any systemic anticoagulation 7. Valvular heart disease with history of aortic stenosis 8. 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 Chronic dysphagia ?Patient to be evaluated by speech therapy following his extubation 11. Severe protein calorie malnutrition ?As evidenced by low BMI muscle wasting and decreased energy level patient to be evaluated by dietitian 11. DVT prophylaxis - On enoxaparin Clinical Impression(s) from Imaging Studies Chest X-Ray 04/15/20 16:40 IMPRESSION: Diffuse coarse fibrotic pattern of the lungs and bibasilar infiltrates and/or atelectasis, stable in the interval. Bilateral perihilar infiltrates are noted new in the interval. Right costophrenic angle blunting consistent with small effusion or pleural reaction, also stable in the interval. Electronically Signed: Mihai Terry MD at 17:18 EDT , Service support , Chest X-Ray 04/15/20 16:40 IMPRESSION: Nasogastric and endotracheal tubes seen appearing in adequate position. Diffuse coarse fibrotic changes of the lungs bilaterally. Bilateral mid and lower lung field infiltrates and/or atelectasis. Right costophrenic angle blunting which may represent small effusion or pleural reaction. Excluding the newly placed endotracheal and nasogastric tubes, findings are similar to the prior study of earlier this date. Electronically Signed: Mihai Terry MD at 17:06 EDT , Service support , Chest X-Ray 04/16/20 05:55 IMPRESSION: Bilateral infiltrates and pleural effusions, as described. at 0443 Reported and signed by: Kira Clement MD Electronically Signed: Kira Clement MD at 4:42 EDT Tel , Service support , Inpatient E&M: [id number] Subs Hosp L3
--- NOTE | 2020-04-16 08:05 | NT.THERAPY_ITS ---
Nutrition Therapy Report - History Nutrition Services has been consulted to:: Manage enteral nutrition Current diet / nutrition support order:: NPO - Anthropometric Measurements Height:: 5 ft 10 in Weight:: 62 kg Body Mass Index (BMI):: 19.5 - Relevant Labs Relevant Labs:: RBC 2.82 M/mm3 (4.6-6.2) L 04/16/20 04:05 Hgb 8.3 g/dL (13.0-16.5) L 04/16/20 04:05 Hct 27.9 % (40-54) L 04/16/20 04:05 MCV 98.9 fL (80-94) H 04/16/20 04:05 MCHC 29.7 g/dL (32-36) L 04/16/20 04:05 RDW Std Deviation 49.3 fl (35.1-43.9) H 04/16/20 04:05 Neut % (Auto) 92.0 % (47-70) H 04/16/20 04:05 Lymph % (Auto) 4.9 % (19-41) L 04/16/20 04:05 Absolute Lymphs (auto) 0.34 X10^3/uL (0.83-4.51) L 04/16/20 04:05 Anion Gap 3 (5-15) L 04/16/20 04:05 Creatinine 0.42 mg/dL (0.70-1.30) L 04/16/20 04:05 BUN/Creatinine Ratio 40.1 RATIO (10-20) H 04/16/20 04:05 Glucose 145 mg/dL (74-106) H 04/16/20 04:05 Lactic Acid 8.3 mmol/L (0.4-1.9) H* 04/15/20 16:35 Calcium 8.0 mg/dL (8.5-10.1) L 04/16/20 04:05 AST 63 U/L (15-37) H 04/15/20 16:35 ALT 90 U/L (16-61) H 04/15/20 16:35 Troponin I 0.283 ng/mL (<0.045) H 04/16/20 04:05 - Assessment Food / Nutrition-Related History:: Unable to talk to pt at this time d/t sedated and on vent. Failed SAT/SBT this am. Per Dr. Mccartney - plans for tf today. Per EMR UBW: 56.518 kg. Pt w/ nonpitting L arm edema - may see wt loss as fluid status improves. Gluc elevated- on steroid. [ End ] - Nutrition Diagnosis Problem / Etiology / Signs & Symptoms (PES):: Pt with inadequate oral po intake r/t sedated and on vent AEB NPO status Evidence of Malnutrition Exists:: No - Nutrition Intervention Nutrition Prescription:: [id number] jennie / 60-70 gm pro / day - Food / Nutrient Delivery Interventions Summary of nutrition intervention:: Rec Vital AF 1.2 at goal rate 60 cc/hr with 100 cc H2O flush every 4 hours to provide ~ 1728 jennie / 108 gm pro / 1767 cc free water w/ flush. Would start tf at 20 cc/hr and increase tf by 20 cc/hr every 6- 8 hrs as pt tolerates until goal rate achieved. [ End ] Nutrition support ordered as / adjusted to:: Will order Vital AF 1.2 at goal rate 60 cc/hr with 100 cc H2O flush every 4 hours to provide ~ 1728 jennie / 108 gm pro / 1767 cc free water w/ flush. Will start tf at 20 cc/hr and increase tf by 20 cc/hr every 6-8 hrs as pt tolerates until goal rate achieved. [ End ] Nutrition education provided?: No - MNT Monitoring Further MNT monitoring and evaluation required?: Yes MNT Follow-up in:: 1-2 days - please call RD/LD if questions [phone]
[2020-04-16 08:18] LABS: BNP,B-Type NATRIURETIC PEPTIDE 448.3 pg/mL (0-100)
[2020-04-16] MEDS: Chlorhexidine 15 ML PO ×2 (09:44→21:39)
[2020-04-16] MEDS: Famotidine 20 MG Tablet GT ×2 (09:44→21:40)
[2020-04-16] MEDS: CHLORHEXIDINE GLUC 2% CLOTH 1 EACH TOWELETTE TOPICAL (09:44)
[2020-04-16] MEDS: Enoxaparin 40 MG/0.4 ML Syringe SC (09:44)
[2020-04-16] MEDS: Vital AF 1.2 Cal Liquid 1,000 ML 20 ML GT (09:45)
[2020-04-16] MEDS: Insulin Lispro 100 UNIT/ML INSULN.PEN SC ×2 (11:44→17:49)
[2020-04-16 11:51] LABS: Bedside Glucose 178 mg/dL (70-110)
[2020-04-16] MEDS: 0.9% Saline Lock 10 ML Syringe IV ×2 (13:34→21:39)
--- NOTE | 2020-04-16 16:08 | CON.PCM_ITS ---
Problem List (1) Aortic stenosis, severe Status: Acute (2) Acute on chronic respiratory failure with hypoxia Status: Acute Reason for Consult Date of Consultation: 04/16/20 Reason for Consultation: Aortic stenosis History of Present Illness: [] This is an 84-year-old white male was admitted with respiratory hypoxemic failure. This is 1 of the many admission for respiratory failure. He has been intubated. Echocardiogram was repeated today. It showed severe aortic stenosis with preserved left ventricular systolic wall motion. There was severe pulmonary hypertension. Echocardiogram done in September showed moderate degree of aortic stenosis. On admission patient had hypotension required fluid resuscitation. It was presumably due to septic shock. Patient has been treated by [facility] for lungs cancer. I am not so sure about the stage of the lung cancer. Apparently he stop having radiation treatment of the lungs several months ago. He has had end-stage COPD. After admission with fluid resuscitation hemoglobin dropped to 8.3. At the moment patient still intubated but arousable. Past Medical History Allergies/Adverse Reactions: Allergies ampicillin Allergy (Verified 04/02/20 11:11) Anaphylaxis azithromycin Allergy (Verified 04/02/20 11:11) Rash codeine Allergy (Verified 04/02/20 11:11) Rash penicillin G Allergy (Verified 04/02/20 11:11) Rash Sulfa (Sulfonamide Antibiotics) Allergy (Verified 04/02/20 11:11) Rash sulfamethoxazole [From Bactrim] Allergy (Verified 04/02/20 11:11) Rash trimethoprim [From Bactrim] Allergy (Verified 04/02/20 11:11) Rash Home Medications: Ambulatory Orders Medication Instructions Recorded albuterol sulfate 90 mcg/actuation 2 puff INHALATION Q6H PRN #18 g 11/25/19 aerosol inhaler Cholecalciferol (VIT D3) [Vitamin 1,000 unit PO DAILY 03/16/20 D3] Fluticasone/Umeclidin/Vilanter 1 inhaler INHALATION DAILY 03/16/20 [Trelegy Ellipta 100-62.5-25] Furosemide 40 mg PO DAILY 03/16/20 docusate sodium 100 mg capsule 100 mg PO DAILY 03/31/20 Acetaminophen [Tylenol Arthritis] 650 mg PO Q6H PRN PRN 04/15/20 Losartan Potassium [Cozaar] 25 mg PO DAILY 04/15/20 Paroxetine HCl [Paxil] 10 mg PO QHS 04/15/20 Potassium Chloride [Klor-Con M10] 10 meq PO DAILY 04/15/20 Prednisone 5 mg PO QODAY 04/15/20 Past Medical History (Chronic Problems): Chronic Problems (Last Reviewed 04/02/20 @ 11:37 by hSu Chahal PRIVATE ADVISOR, PRIVATE ADVISOR-C) COPD exacerbation (Chronic) Sleep apnea (Chronic) Aortic stenosis (Chronic) Hypertension (Chronic) Atrial flutter (Chronic) Allergic rhinitis (Chronic) Colon polyps (Chronic) 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) FEV1 44% of predicted on PFT 12/15/2016 at [facility] Diastolic dysfunction (Chronic) 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) Essential hypertension (Chronic) Paroxysmal atrial flutter (Chronic) Non-rheumatic tricuspid valve insufficiency (Chronic) Aortic valve stenosis, nonrheumatic (Chronic) 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) 06/11/17 Chronic respiratory failure (Chronic) Conduction disorder of the heart (Chronic) Pulmonary hypertension (Chronic) GERD (gastroesophageal reflux disease) (Chronic) Bullous emphysema (Chronic) Surgical History: appendectomy, cataract, pacemaker implantation Psychiatric History: Anxiety, Depression - *Family History Paternal Family History: Family History (Last Reviewed 04/15/20 @ 18:09 by Xena Hernandez NP, PRIVATE ADVISOR-C) Brother Diabetes Sister Diabetes Lung cancer History Items: Heart Disease - Father with history of heart disease, at age 96. Offspring Family History: Family History (Last Reviewed 04/15/20 @ 18:09 by Xena Hernandez NP, PRIVATE ADVISOR-C) Brother Diabetes Sister Diabetes Lung cancer History Items: COPD Sibling Family History: Family History (Last Reviewed 04/15/20 @ 18:09 by Xena Hernandez NP, PRIVATE ADVISOR-C) Brother Diabetes Sister Diabetes Lung cancer History Items: COPD, Diabetes, Heart Disease Maternal Family History: Family History (Last Reviewed 04/15/20 @ 18:09 by Xena Hernandez NP, PRIVATE ADVISOR-C) Brother Diabetes Sister Diabetes Lung cancer History Items: Heart Disease, - - osteoporosis Lives: Spouse/ Significant Other Smoking Status: Former smoker Tobacco Use: Cigarettes, Cigars Drugs: None Review of Systems - Review of Systems General: Reports: - - Not obtainable due to intubation Cardiovascular: Reports: - - Not obtainable due to intubation Respiratory: Reports: - - End-stage COPD on BiPAP at home Objective: Vital Signs Temp Pulse Resp BP Pulse Ox 99.3 F H 72 16 128/51 H 97 04/16/20 16:00 04/16/20 16:00 04/16/20 16:00 04/16/20 16:00 04/16/20 16:00 Oxygen Delivery Method Mechanical Ventilator Weight: 136 lb 10.986 oz Body Mass Index (BMI) 19.5 Intake and Output for Last 24 Hours 04/14/20 04/15/20 04/16/20 23:59 23:59 23:59 Intake Total 2891.15 / 2902.30 1717.52 / 1717.52 Output Total 95 / 195 530 / 530 Balance 2796.15 / 2707.30 1187.52 / 1187.52 General: - - Malnourished, cachectic and intubated Neck: Supple Lungs: Diminished Isiah Bases Cardiovascular: Regular Rhythm - Heart sounds distant, 3/6 systolic ejection murmur present at the base of the heart. Carotid upstroke is delayed Abdomen: Bowel Sounds Present, Soft, Non Tender Extremities: No edema Neurological: - - Intubated but arousable 04/15/20 16:35: WBC 9.5, RBC 3.50 L, Hgb 10.3 L, Hct 35.7 L, MCV 102.0 H, MCH 29.4, MCHC 28.9 L, Plt Count 260, MPV 10.2, Immature Gran % (Auto) 0.600, Neut % (Auto) 67.0, Lymph % (Auto) 23.8, [place] % (Auto) 8.1, Eos % (Auto) 0.2, Baso % (Auto) 0.3, Absolute Neuts (auto) 6.4, Nucleated RBC % 0 04/15/20 16:35: PT 12.7, INR 1.0, APTT 29.3 04/15/20 16:35: Sodium 138, Potassium 4.1, Chloride 98, Carbon Dioxide 31.0, Anion Gap 9, BUN 17, Creatinine 0.88, Est GFR (MDRD) Af Amer 106, Est GFR (MDRD) Non-Af 88, BUN/Creatinine Ratio 19.3, Glucose 328 H, Calcium 9.4, Total Bilirubin 0.40 04/15/20 16:35: Lactic Acid 8.3 H* 04/15/20 17:11: pH 7.19 L*, Bicarbonate Actual 32.3 H, Base Excess 4 H, O2 Saturation 100 H, ABG pCO2 84.0 H*, ABG pO2 296 H, Mo Test Positive 04/15/20 18:50: Urine Color Straw, Urine Clarity Clear, Urine pH 6.0, Ur Specific [place] 1.025, Urine Protein 100 H, Urine Glucose (UA) 1000 H, Urine Ketones Negative, Urine Occult Blood 25 H, Urine Nitrite Negative, Urine Bilirubin Negative, Urine Urobilinogen Normal, Ur Leukocyte Esterase Negative, Urine RBC 0-5 SEEN, Urine WBC 0 SEEN 04/15/20 20:21: Magnesium 2.6 04/15/20 22:15: Lactic Acid 1.6 04/15/20 22:55: pH 7.27 L, Bicarbonate Actual 30.7 H, Base Excess 4 H, O2 Saturation 88 L, ABG pCO2 66.5 H, ABG pO2 65 L 04/16/20 04:05: WBC 7.0, RBC 2.82 L, Hgb 8.3 L, Hct 27.9 L, MCV 98.9 H, MCH 29.4, MCHC 29.7 L, Plt Count 193, MPV 9.2, Immature Gran % (Auto) 0.600, Neut % (Auto) 92.0 H, Lymph % (Auto) 4.9 L, [place] % (Auto) 2.4, Eos % (Auto) 0.0, Baso % (Auto) 0.1, Absolute Neuts (auto) 6.4, Nucleated RBC % 0 04/16/20 04:05: Sodium 138, Potassium 4.5, Chloride 105, Carbon Dioxide 30.0, Anion Gap 3 L, BUN 17, Creatinine 0.42 L, Est GFR (MDRD) Af Amer 247, Est GFR (MDRD) Non-Af 204, BUN/Creatinine Ratio 40.1 H, Glucose 145 H, Calcium 8.0 L 04/16/20 04:05: Troponin I 0.283 H 04/16/20 04:05: B-Natriuretic Peptide 448.3 H Rhythm: EKG: ECHO: Stress Test: Cardiac Cath: PCI: CT Surgery: Holter monitor: EPS: PPM: CXR: Chest CT Scan: Assessment/Plan #1 severe aortic stenosis clinically and from echocardiogram. It has progressed rapidly over 7 months time. This is unusual. This may be connected with the radiation. Echocardiogram will be repeated. He is definitely not a surgical candidate for AVR. Depending on the status of his lung cancer, his lifespan, he may or may not be a candidate for TAVR. This admission he is probably admitted for hypoxic respiratory failure with sepsis. I would recommend conservative treatment at this point. I would try to communicate with the family and the patient tomorrow about their wishes.
[2020-04-16 17:50] LABS: Bedside Glucose 201 mg/dL (70-110)
[2020-04-16] MEDS: PARoxetine 10 MG Tablet GT (21:37)
[2020-04-17] VITALS (59 sets, daily range): BP systolic 98–189; BP diastolic 42–104; PULSE 60–137; RESP 12–32; TEMP 37–37.6; O2SAT 89–100
[2020-04-17] MEDS: Insulin Lispro 100 UNIT/ML INSULN.PEN SC ×3 (00:18→17:30)
[2020-04-17 00:31] LABS: Bedside Glucose 206 mg/dL (70-110)
[2020-04-17] MEDS: CHLORHEXIDINE GLUC 2% CLOTH 1 EACH TOWELETTE TOPICAL (02:35)
[2020-04-17] MEDS: Ipratropium/Albuterol Sulfate 3 ML AMPUL.NEB INHALATION ×6 (03:05→23:10)
--- NOTE | 2020-04-17 03:13 | PCM.RX.CS ---
Consult Pharmacy has been consulted to manage selected antiobiotic: Vancomycin Type of Consult: New start Suspected Infection: Sepsis Labs: Sodium 138 mmol/L (136-145) 04/16/20 04:05 Potassium 4.5 mmol/L (3.5-5.1) 04/16/20 04:05 Chloride 105 mmol/L (98-107) 04/16/20 04:05 Carbon Dioxide 30.0 mmol/L (21.0-32.0) 04/16/20 04:05 Anion Gap 3 (5-15) L 04/16/20 04:05 BUN 17 mg/dL (7-18) 04/16/20 04:05 Creatinine 0.42 mg/dL (0.70-1.30) L 04/16/20 04:05 Est GFR (MDRD) Af Amer 247 mL/min (>60) 04/16/20 04:05 Est GFR (MDRD) Non-Af 204 mL/min (>60) 04/16/20 04:05 BUN/Creatinine Ratio 40.1 RATIO (10-20) H 04/16/20 04:05 Glucose 145 mg/dL (74-106) H 04/16/20 04:05 Microbiology: Microbiology 04/15/20 16:35 Blood Culture (Wb) - Line Draw Blood Culture - Preliminary 04/15/20 23:00 Sputum, Induced/Lukens Gram Stain - Final 04/16/20 07:38 Mucosa - Nasopharyngeal Respiratory Panel (PCR) - Final 04/15/20 21:15 Urine Catheter - Catheter Streptococcus pneumoniae Antigen (M - Final 04/15/20 21:15 Urine Catheter - Catheter Legionella Antigen - Final Weight used for dosin kg Estimated Creatinine Clearance: 47.7 Goal Trough: 15-20 mcg/mL Pharmacy Plan for Drug Dosing: Pharmacy Service will continue to monitor and adjust dosing as required. Medications Vancomycin HCl () 500 mg in 100 mls @ 100 mls/hr IV Q12H WEI Discontinued Medications Vancomycin HCl 1,500 mg/ (Sodium Chloride) 530 mls @ 250 mls/hr IV X1 ONE Stop: 04/17/20 02:37 Last Admin: 04/17/20 02:09 Dose: 250 mls/hr Documented by: Follow-Up Labs: Trough Vancomycin Labs to be done on [date and time ordered]: 04/18 @ 6001
[2020-04-17] MEDS: TITRATION PARAMETER CHANGE 1 EACH IV (04:32)
[2020-04-17 05:06] LABS: Hematocrit 28.9 % (40-54); Hemoglobin 8.7 g/dL (13.0-16.5); Mean Corp Hgb Conc 30.1 g/dL (32-36); Mean Corpuscular Hgb 29.5 pg (27.0-32.0); Mean Platelet Vol. 8.9 fl (6.2-12.0); Platelet Count 184 K/mm3 (150-450); RBC Distribution Width CV 13.5 % (11.6-14.6); RBC Distribution Width SD 48.7 fl (35.1-43.9); Red Blood Count 2.95 M/mm3 (4.6-6.2); White Blood Count 7.1 K/mm3 (4.4-11.0)
[2020-04-17 05:45] LABS: Anion Gap 3 (5-15); BUN 22 mg/dL (7-18); BUN/Creat Ratio 39.4 RATIO (10-20); Calcium,Total 8.3 mg/dL (8.5-10.1); Chloride 104 mmol/L (98-107); Creatinine, Serum 0.56 mg/dL (0.70-1.30); EST Glomerular Filtration Rate 148 mL/min (>60); Est Glom Filt Rate - Afr Amer 179 mL/min (>60); Glucose 217 mg/dL (74-106); Magnesium 2.5 mg/dL (1.6-2.6); Potassium 4.7 mmol/L (3.5-5.1); Sodium Level 139 mmol/L (136-145)
--- NOTE | 2020-04-17 06:11 | PCM.PN.INT ---
Subjective: The patient was seen and examined at the bedside this morning. Events from the last 24 hours have been reviewed. The patient is currently afebrile and hemodynamically stable. The patient's levophed was able to be weaned off this morning, once his propofol was placed on hold for his spontaneous breathing quality. The patient is currently maintaining appropriate oxygen saturations with an FIO2 requirement of 45%. The patient has done well this morning on his spontaneous breathing trial. He is currently alert and following commands appropriately. No secretions were noted by RT. Objective: The patient's most recent lab work, culture data and imaging studies have all been personally reviewed. Surface echocardiogram revealed normal LV size with an ejection fraction of 55% and evidence of diastolic dysfunction. Pulmonary artery systolic pressure was estimated to be 89 mmHg. Severe aortic stenosis was noted. Strep and urine Legionella antigens were negative. Respiratory viral panel was negative. Coronavirus PCR was negative. Blood, urine and sputum cultures are pending. General: Alert, Cooperative, No apparent distress, - - Remains intubated and mechanically ventilated. HEENT: Atraumatic, PERRLA, Normocephalic Oral: Moist Mucosa, No Gingival or Mucosal Lesions/ Ulcerations, - - Stable endotracheal and OG tubes Neck: Supple, No Nodes, Trachea Midline Lungs: No rhonchi, No wheeze, No rales, Diminished Cardiovascular: Regular rate, Normal S1, Normal S2, - - Paced rhythm. Harsh systolic murmur Abdomen: Bowel Sounds Present, Soft, Non Tender Extremities: No cyanosis, No edema, Clubbing Skin: No breakdown Musculoskeletal: No Tenderness to Palpation of Joints or Extremities Lymphatic: No Cervical, Supraclavicular, or Inguinal Adenopathy Neurological: Neuro grossly intact, - - Alert and following commands appropriately. Vital Signs Temp Pulse Resp BP Pulse Ox 98.9 F 98 22 H 140/56 H 92 04/17/20 05:00 04/17/20 05:00 04/17/20 05:00 04/17/20 05:45 04/17/20 05:00 Oxygen Delivery Method Mechanical Ventilator Weight: 138 lb 10.732 oz Body Mass Index (BMI) 19.5 Intake and Output for Last 24 Hours 04/15/20 04/16/20 04/17/20 23:59 23:59 23:59 Intake Total 2891.15 / 2902.30 2493.02 / 2709.17 1165.63 / 1165.63 Output Total 95 / 195 685 / 755 210 / 210 Balance 2796.15 / 2707.30 1808.02 / 1953.17 955.63 / 955.63 Labs (Last 48 Hours) 04/15/20 04/15/20 04/15/20 16:35 16:35 16:35 WBC 9.5 RBC 3.50 L Hgb 10.3 L Hct 35.7 L MCV 102.0 H MCH 29.4 MCHC 28.9 L RDW Std Deviation 51.8 H RDW Coeff of Earline 13.8 Plt Count 260 MPV 10.2 Immature Gran % (Auto) 0.600 Neut % (Auto) 67.0 Lymph % (Auto) 23.8 [place] % (Auto) 8.1 Eos % (Auto) 0.2 Baso % (Auto) 0.3 Absolute Neuts (auto) 6.4 Absolute Lymphs (auto) 2.27 Nucleated RBC % 0 Differential Comment PT 12.7 INR 1.0 APTT 29.3 Specimen Type Sample Site pH Bicarbonate Actual Total CO2 Base Excess O2 Saturation O2 % ABG pCO2 ABG pO2 Mo Test Respiration Rate O2 Delivery Device Vent Mode Tidal Volume Sodium 138 Potassium 4.1 Chloride 98 Carbon Dioxide 31.0 Anion Gap 9 BUN 17 Creatinine 0.88 Estim Creat Clear Calc 56.95 Est GFR (MDRD) Af Amer 106 Est GFR (MDRD) Non-Af 88 BUN/Creatinine Ratio 19.3 Glucose 328 H Lactic Acid Calcium 9.4 Magnesium Total Bilirubin 0.40 AST 63 H ALT 90 H Alkaline Phosphatase 102 Total Creatine Kinase 71 Troponin I B-Natriuretic Peptide Total Protein 7.0 Albumin 3.4 Globulin 3.6 Albumin/Globulin Ratio 0.9 Urine Color Urine Clarity Urine pH Ur Specific [place] Urine Protein Urine Glucose (UA) Urine Ketones Urine Occult Blood Urine Nitrite Urine Bilirubin Urine Urobilinogen Ur Leukocyte Esterase Urine RBC Urine WBC Ur Squamous Epith Cells Urine Bacteria Hyaline Casts Urine Mucus COVID-19 (SKINNY) MRSA (PCR) POC Glucose 04/15/20 04/15/20 04/15/20 16:35 17:03 17:11 WBC RBC Hgb Hct MCV MCH MCHC RDW Std Deviation RDW Coeff of Earline Plt Count MPV Immature Gran % (Auto) Neut % (Auto) Lymph % (Auto) [place] % (Auto) Eos % (Auto) Baso % (Auto) Absolute Neuts (auto) Absolute Lymphs (auto) Nucleated RBC % Differential Comment PT INR APTT Specimen Type ART Sample Site R Radial pH 7.19 L* Bicarbonate Actual 32.3 H Total CO2 35 Base Excess 4 H O2 Saturation 100 H O2 % 100 ABG pCO2 84.0 H* ABG pO2 296 H Mo Test Positive Respiration Rate 12.0000 O2 Delivery Device ET Tube Vent Mode AC Tidal Volume 450 Sodium Potassium Chloride Carbon Dioxide Anion Gap BUN Creatinine Estim Creat Clear Calc Est GFR (MDRD) Af Amer Est GFR (MDRD) Non-Af BUN/Creatinine Ratio Glucose Lactic Acid 8.3 H* Calcium Magnesium Total Bilirubin AST ALT Alkaline Phosphatase Total Creatine Kinase Troponin I B-Natriuretic Peptide Total Protein Albumin Globulin Albumin/Globulin Ratio Urine Color Urine Clarity Urine pH Ur Specific [place] Urine Protein Urine Glucose (UA) Urine Ketones Urine Occult Blood Urine Nitrite Urine Bilirubin Urine Urobilinogen Ur Leukocyte Esterase Urine RBC Urine WBC Ur Squamous Epith Cells Urine Bacteria Hyaline Casts Urine Mucus COVID-19 (SKINNY) Negative MRSA (PCR) POC Glucose 04/15/20 04/15/20 04/15/20 18:50 20:21 21:00 WBC RBC Hgb Hct MCV MCH MCHC RDW Std Deviation RDW Coeff of Earline Plt Count MPV Immature Gran % (Auto) Neut % (Auto) Lymph % (Auto) [place] % (Auto) Eos % (Auto) Baso % (Auto) Absolute Neuts (auto) Absolute Lymphs (auto) Nucleated RBC % Differential Comment PT INR APTT Specimen Type Sample Site pH Bicarbonate Actual Total CO2 Base Excess O2 Saturation O2 % ABG pCO2 ABG pO2 Mo Test Respiration Rate O2 Delivery Device Vent Mode Tidal Volume Sodium Potassium Chloride Carbon Dioxide Anion Gap BUN Creatinine Estim Creat Clear Calc Est GFR (MDRD) Af Amer Est GFR (MDRD) Non-Af BUN/Creatinine Ratio Glucose Lactic Acid Calcium Magnesium 2.6 Total Bilirubin AST ALT Alkaline Phosphatase Total Creatine Kinase Troponin I B-Natriuretic Peptide Total Protein Albumin Globulin Albumin/Globulin Ratio Urine Color Straw Urine Clarity Clear Urine pH 6.0 Ur Specific [place] 1.025 Urine Protein 100 H Urine Glucose (UA) 1000 H Urine Ketones Negative Urine Occult Blood 25 H Urine Nitrite Negative Urine Bilirubin Negative Urine Urobilinogen Normal Ur Leukocyte Esterase Negative Urine RBC 0-5 SEEN Urine WBC 0 SEEN Ur Squamous Epith Cells 0-5 SEEN Urine Bacteria 0 SEEN Hyaline Casts 0-5 SEEN Urine Mucus 0 SEEN COVID-19 (SKINNY) MRSA (PCR) Negative POC Glucose 04/15/20 04/15/20 04/16/20 22:15 22:55 00:39 WBC RBC Hgb Hct MCV MCH MCHC RDW Std Deviation RDW Coeff of Earline Plt Count MPV Immature Gran % (Auto) Neut % (Auto) Lymph % (Auto) [place] % (Auto) Eos % (Auto) Baso % (Auto) Absolute Neuts (auto) Absolute Lymphs (auto) Nucleated RBC % Differential Comment PT INR APTT Specimen Type ART Sample Site R Radial pH 7.27 L Bicarbonate Actual 30.7 H Total CO2 33 Base Excess 4 H O2 Saturation 88 L O2 % 60 ABG pCO2 66.5 H ABG pO2 65 L Mo Test Respiration Rate 16.0000 O2 Delivery Device Adult Vent Vent Mode AC Tidal Volume 450 Sodium Potassium Chloride Carbon Dioxide Anion Gap BUN Creatinine Estim Creat Clear Calc Est GFR (MDRD) Af Amer Est GFR (MDRD) Non-Af BUN/Creatinine Ratio Glucose Lactic Acid 1.6 Calcium Magnesium Total Bilirubin AST ALT Alkaline Phosphatase Total Creatine Kinase Troponin I B-Natriuretic Peptide Total Protein Albumin Globulin Albumin/Globulin Ratio Urine Color Urine Clarity Urine pH Ur Specific [place] Urine Protein Urine Glucose (UA) Urine Ketones Urine Occult Blood Urine Nitrite Urine Bilirubin Urine Urobilinogen Ur Leukocyte Esterase Urine RBC Urine WBC Ur Squamous Epith Cells Urine Bacteria Hyaline Casts Urine Mucus COVID-19 (SKINNY) MRSA (PCR) POC Glucose 120 H 04/16/20 04/16/20 04/16/20 04:05 04:05 04:05 WBC 7.0 RBC 2.82 L Hgb 8.3 L Hct 27.9 L MCV 98.9 H MCH 29.4 MCHC 29.7 L RDW Std Deviation 49.3 H RDW Coeff of Earline 13.6 Plt Count 193 MPV 9.2 Immature Gran % (Auto) 0.600 Neut % (Auto) 92.0 H Lymph % (Auto) 4.9 L [place] % (Auto) 2.4 Eos % (Auto) 0.0 Baso % (Auto) 0.1 Absolute Neuts (auto) 6.4 Absolute Lymphs (auto) 0.34 L Nucleated RBC % 0 Differential Comment SCANNED PT INR APTT Specimen Type Sample Site pH Bicarbonate Actual Total CO2 Base Excess O2 Saturation O2 % ABG pCO2 ABG pO2 Mo Test Respiration Rate O2 Delivery Device Vent Mode Tidal Volume Sodium 138 Potassium 4.5 Chloride 105 Carbon Dioxide 30.0 Anion Gap 3 L BUN 17 Creatinine 0.42 L Estim Creat Clear Calc 47.74 Est GFR (MDRD) Af Amer 247 Est GFR (MDRD) Non-Af 204 BUN/Creatinine Ratio 40.1 H Glucose 145 H Lactic Acid Calcium 8.0 L Magnesium Total Bilirubin AST ALT Alkaline Phosphatase Total Creatine Kinase Troponin I 0.283 H B-Natriuretic Peptide Total Protein Albumin Globulin Albumin/Globulin Ratio Urine Color Urine Clarity Urine pH Ur Specific [place] Urine Protein Urine Glucose (UA) Urine Ketones Urine Occult Blood Urine Nitrite Urine Bilirubin Urine Urobilinogen Ur Leukocyte Esterase Urine RBC Urine WBC Ur Squamous Epith Cells Urine Bacteria Hyaline Casts Urine Mucus COVID-19 (SKINNY) MRSA (PCR) POC Glucose 04/16/20 04/16/20 04/16/20 04:05 11:41 17:42 WBC RBC Hgb Hct MCV MCH MCHC RDW Std Deviation RDW Coeff of Earline Plt Count MPV Immature Gran % (Auto) Neut % (Auto) Lymph % (Auto) [place] % (Auto) Eos % (Auto) Baso % (Auto) Absolute Neuts (auto) Absolute Lymphs (auto) Nucleated RBC % Differential Comment PT INR APTT Specimen Type Sample Site pH Bicarbonate Actual Total CO2 Base Excess O2 Saturation O2 % ABG pCO2 ABG pO2 Mo Test Respiration Rate O2 Delivery Device Vent Mode Tidal Volume Sodium Potassium Chloride Carbon Dioxide Anion Gap BUN Creatinine Estim Creat Clear Calc Est GFR (MDRD) Af Amer Est GFR (MDRD) Non-Af BUN/Creatinine Ratio Glucose Lactic Acid Calcium Magnesium Total Bilirubin AST ALT Alkaline Phosphatase Total Creatine Kinase Troponin I B-Natriuretic Peptide 448.3 H Total Protein Albumin Globulin Albumin/Globulin Ratio Urine Color Urine Clarity Urine pH Ur Specific [place] Urine Protein Urine Glucose (UA) Urine Ketones Urine Occult Blood Urine Nitrite Urine Bilirubin Urine Urobilinogen Ur Leukocyte Esterase Urine RBC Urine WBC Ur Squamous Epith Cells Urine Bacteria Hyaline Casts Urine Mucus COVID-19 (SKINNY) MRSA (PCR) POC Glucose 178 H 201 H 04/17/20 04/17/20 04/17/20 00:14 05:00 05:00 WBC 7.1 RBC 2.95 L Hgb 8.7 L Hct 28.9 L MCV 98.0 H MCH 29.5 MCHC 30.1 L RDW Std Deviation 48.7 H RDW Coeff of Earline 13.5 Plt Count 184 MPV 8.9 Immature Gran % (Auto) Neut % (Auto) Lymph % (Auto) [place] % (Auto) Eos % (Auto) Baso % (Auto) Absolute Neuts (auto) Absolute Lymphs (auto) Nucleated RBC % Differential Comment PT INR APTT Specimen Type Sample Site pH Bicarbonate Actual Total CO2 Base Excess O2 Saturation O2 % ABG pCO2 ABG pO2 Mo Test Respiration Rate O2 Delivery Device Vent Mode Tidal Volume Sodium 139 Potassium 4.7 Chloride 104 Carbon Dioxide 32.0 Anion Gap 3 L BUN 22 H Creatinine 0.56 L Estim Creat Clear Calc 49.80 Est GFR (MDRD) Af Amer 179 Est GFR (MDRD) Non-Af 148 BUN/Creatinine Ratio 39.4 H Glucose 217 H Lactic Acid Calcium 8.3 L Magnesium 2.5 Total Bilirubin AST ALT Alkaline Phosphatase Total Creatine Kinase Troponin I B-Natriuretic Peptide Total Protein Albumin Globulin Albumin/Globulin Ratio Urine Color Urine Clarity Urine pH Ur Specific [place] Urine Protein Urine Glucose (UA) Urine Ketones Urine Occult Blood Urine Nitrite Urine Bilirubin Urine Urobilinogen Ur Leukocyte Esterase Urine RBC Urine WBC Ur Squamous Epith Cells Urine Bacteria Hyaline Casts Urine Mucus COVID-19 (SKINNY) MRSA (PCR) POC Glucose 206 H Microbiology 04/15/20 16:35 Blood Culture (Wb) - Line Draw Bacteria Detection (PCR) - Preliminary Coag Negative Staph 04/15/20 16:35 Blood Culture (Wb) - Line Draw Blood Culture - Preliminary 04/15/20 23:00 Sputum, Induced/Lukens Gram Stain - Final 04/16/20 07:38 Mucosa - Nasopharyngeal Respiratory Panel (PCR) - Final 04/15/20 21:15 Urine Catheter - Catheter Streptococcus pneumoniae Antigen (M - Final 04/15/20 21:15 Urine Catheter - Catheter Legionella Antigen - Final Clinical Impression(s) from Imaging Studies Chest X-Ray 04/15/20 16:40 IMPRESSION: Diffuse coarse fibrotic pattern of the lungs and bibasilar infiltrates and/or atelectasis, stable in the interval. Bilateral perihilar infiltrates are noted new in the interval. Right costophrenic angle blunting consistent with small effusion or pleural reaction, also stable in the interval. Electronically Signed: Mihai Terry MD at 17:18 EDT , Service support , Chest X-Ray 04/15/20 16:40 IMPRESSION: Nasogastric and endotracheal tubes seen appearing in adequate position. Diffuse coarse fibrotic changes of the lungs bilaterally. Bilateral mid and lower lung field infiltrates and/or atelectasis. Right costophrenic angle blunting which may represent small effusion or pleural reaction. Excluding the newly placed endotracheal and nasogastric tubes, findings are similar to the prior study of earlier this date. Electronically Signed: Mihai Terry MD at 17:06 EDT , Service support , Chest X-Ray 04/16/20 05:55 IMPRESSION: Bilateral infiltrates and pleural effusions, as described. at 0443 Reported and signed by: Kira Clement MD Electronically Signed: Kira Clement MD at 4:42 EDT Tel , Service support , Medical Necessity - Tobacco Use Smoking Status: Former smoker Tobacco Use: Cigarettes, Cigars Assessment/Plan All Active Problems (Last Reviewed 04/02/20 @ 11:37 by Shu Chahal CLINICAL ACADEMIC ALLERGIST, CLINICAL ACADEMIC ALLERGIST-C) Acute on chronic respiratory failure with hypoxia (Acute) Acute respiratory failure with hypoxia and hypercapnia (Acute) Septic shock (Acute) Pneumonia of both lower lobes (Acute) Aortic stenosis, severe (Acute) RECOMMENDATIONS: 1. Proceed with a trial of extubation. 2. Once extubated, wean oxygen to maintain saturations 88-92%. (Pt has baseline requirement of 4-6L at home) 3. Perform bedside swallow evaluation and advance diet accordingly. 4. Continue scheduled bronchodilators and IV steroids. 5. Resume BIPAP/AVAPS nightly following extubation. 6. Continue antimicrobials. 7. Restart Lasix today. 8. Continue appropriate DVT prophylaxis. IMPRESSIONS: 1. 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 He has a history of frequent exacerbations requiring hospitalization. CODE STATUS and goals of care have been discussed extensively with the patient during prior hospitalizations and in the outpatient pulmonary clinic. Despite recommendations to consider referral to palliative care, the patient has refused in the past. While underlying pneumonia is a potential contributing etiology to the patient's decompensation, he also has an elevated BNP along with a history of pulmonary hypertension and heart failure with preserved ejection fraction. In addition, he has underlying valvular heart disease. Repeat echocardiogram did reveal significant worsening of his aortic stenosis. Cardiology consultation was subsequently obtained. The patient is currently a candidate for a trial of extubation. Once extubated, supplemental oxygen will be weaned to maintain saturations 88 to 92%. Scheduled bronchodilators and IV steroids will be continued. Noninvasive positive pressure ventilatory support will be initiated for nightly use. I did once again confirm with the patient upon his extubation that he wishes to remain a full code. 2. Distributive shock Resolved. Likely a combination of septic shock and vasodilatation produced by sedative medication use. Vasopressor support has been weaned off completely at this time and the patient remains hemodynamically stable. Plan to restart Lasix accordingly. 3. History of aortic stenosis with progression/second-degree AV block/paroxysmal atrial fibrillation/pulmonary hypertension Complicates care, management, recovery and prognosis. The patient's repeat echocardiogram did reveal severe aortic stenosis, which has progressed over the last 6 to 7 months. Cardiology is currently following. Unclear if the patient would be a candidate for any form of replacement, given his significant comorbidities. For now, we will continue current supportive measures. Lasix will be restarted today. TIME: 34 minutes of critical care time, independent of procedures, was spent addressing the patient's acute on chronic combined respiratory failure, end-stage COPD with exacerbation, distributive shock, severe aortic stenosis, review of all data and collaboration with the care team. [id number]) [id number] Critical care first hour
[2020-04-17 06:30] LABS: Bedside Glucose 182 mg/dL (70-110)
--- NOTE | 2020-04-17 06:46 | NURSING ---
0633: Patient extubated with respiratory at bedside. Placed on 6L NC. Tolerating well. Will continue to monitor.
--- NOTE | 2020-04-17 07:13 | PN_ITS ---
Patient Problems: Active and Suspected Problems (Last Reviewed 04/02/20 @ 11:37 by Shu Chahal AUTOMATIC PRESSER, AUTOMATIC PRESSER-C) Acute respiratory failure with hypoxia and hypercapnia (Acute) Septic shock (Acute) Pneumonia of both lower lobes (Suspected) Pneumonia of both lower lobes (Acute) Aortic stenosis, severe (Acute) Reason for Visit: Acute hypoxic and hypercapnic respiratory failure Subjective: Patient was successfully weaned off the vent this a.m. Objective: GENERAL: Awake on BiPAP HEENT: Atraumatic; EYES; Anicteric, Normal Conjunctiva NECK; supple, normal thyroid, RESPIRATORY: Diminished to auscultation CARDIOVASCULAR: Regular S1 S2, GI: soft, normoactive bowel sounds, : No Renal angle tenderness; EXTREMITIES: No edema, no clubbing, MUSCULOSKELETAL: no muscle waisting NEURO: Awake on BiPAP SKIN: No Rash Vitals/I&O's: Vital Signs Temp Pulse Resp BP Pulse Ox 99.0 F 110 H 30 H 142/63 H 92 04/17/20 06:00 04/17/20 06:33 04/17/20 06:33 04/17/20 06:00 04/17/20 06:33 Oxygen Flow Rate (L/min) 6 Oxygen Delivery Method Nasal Cannula Weight: 62.9 kg Body Mass Index (BMI) 19.5 Intake and Output for Last 24 Hours 04/15/20 04/16/20 04/17/20 23:59 23:59 23:59 Intake Total 2891.15 / 2902.30 2493.02 / 2709.17 1685.63 / 1685.63 Output Total 95 / 195 685 / 755 270 / 270 Balance 2796.15 / 2707.30 1808.02 / 1954.17 1415.63 / 1415.63 Microbiology Past 72 Hours 04/15/20 16:35 Blood Culture (Wb) - Line Draw Bacteria Detection (PCR) - Preliminary Coag Negative Staph 04/15/20 16:35 Blood Culture (Wb) - Line Draw Blood Culture - Preliminary 04/15/20 23:00 Sputum, Induced/Lukens Gram Stain - Final 04/16/20 07:38 Mucosa - Nasopharyngeal Respiratory Panel (PCR) - Final 04/15/20 21:15 Urine Catheter - Catheter Streptococcus pneumoniae Antigen (M - Final 04/15/20 21:15 Urine Catheter - Catheter Legionella Antigen - Final Laboratory Results 04/16/20 04:05: B-Natriuretic Peptide 448.3 H 04/16/20 11:41: POC Glucose 178 H 04/16/20 17:42: POC Glucose 201 H 04/17/20 00:14: POC Glucose 206 H 04/17/20 05:00: WBC 7.1, RBC 2.95 L, Hgb 8.7 L, Hct 28.9 L, MCV 98.0 H, MCH 29.5, MCHC 30.1 L, RDW Std Deviation 48.7 H, RDW Coeff of Earline 13.5, Plt Count 184, MPV 8.9 04/17/20 05:00: Sodium 139, Potassium 4.7, Chloride 104, Carbon Dioxide 32.0, Anion Gap 3 L, BUN 22 H, Creatinine 0.56 L, Estim Creat Clear Calc 49.80, Est GFR (MDRD) Af Amer 179, Est GFR (MDRD) Non-Af 148, BUN/Creatinine Ratio 39.4 H, Glucose 217 H, Calcium 8.3 L, Magnesium 2.5 04/17/20 06:12: POC Glucose 182 H Current Medications Acetaminophen (Tylenol Liquid) 650 mg GT Q6H PRN PRN PRN Reason: Pain Score 1-10 /Temp>100.7 Albuterol Sulfate (Ventolin Aerosols) 2.5 mg INHALATION Q2H PRN PRN PRN Reason: DYSPNEA Albuterol/Ipratropium (Duoneb) 3 ml INHALATION Q4H.RT [facility] Last Admin: 04/17/20 06:19 Dose: 3 ml Documented by: Bisacodyl (Dulcolax) 10 mg RECTAL DAILY PRN PRN PRN Reason: Constipation Chlorhexidine Gluconate () 1 each TOPICAL DAILY [facility] Last Admin: 04/17/20 02:35 Dose: 1 each Documented by: Enoxaparin Sodium (Lovenox) 40 mg SC DAILY [facility] Last Admin: 04/16/20 09:44 Dose: 40 mg Documented by: Famotidine (Pepcid) 20 mg GT BID [facility] Last Admin: 04/16/20 21:40 Dose: 20 mg Documented by: Furosemide (Lasix) 40 mg IV DAILY [facility] Hydralazine HCl (Apresoline Iv) 10 mg IV Q4H PRN PRN PRN Reason: SBP > 160 Meropenem 1 gm/ Sodium (Chloride) 120 mls @ 33 mls/hr IV Q8 [facility] Last Admin: 04/17/20 06:14 Dose: 33 mls/hr Documented by: Sodium Chloride () 250 mls @ 15 mls/hr IV .[id number] PRN PRN Reason: Saline Flush Sodium Chloride () 250 mls @ 15 mls/hr IV .[id number] PRN PRN Reason: Additional IVPB Infusion Insulin Human Lispro (Humalog Kwikpen (Bkc)) 0 unit SC Q6 [facility]; Protocol Last Admin: 04/17/20 06:14 Dose: 2 u Documented by: Methylprednisolone (Solu-Medrol) 40 mg IV Q8 [facility] Last Admin: 04/17/20 06:14 Dose: 40 mg Documented by: Ondansetron HCl (Zofran) 4 mg IV Q8H PRN PRN PRN Reason: NAUSEA/VOMITING Paroxetine HCl (Paxil) 10 mg GT QHS [facility] Last Admin: 04/16/20 21:37 Dose: 10 mg Documented by: Prochlorperazine Edisylate (Compazine Iv) 10 mg IV Q6H PRN PRN PRN Reason: Nausea/Vomiting Sodium Chloride () 10 - 40 ml IV UD PRN PRN Reason: SALINE FLUSH Last Admin: 04/16/20 21:39 Dose: 10 ml Documented by: STROKE Vital Signs/Narrative: Vital Signs Temp Pulse Resp BP BP Pulse Ox 04/17/20 06:33 110 H 30 H 92 04/17/20 06:20 90 23 H 04/17/20 06:00 99.0 F 89 19 H 142/63 H 96 04/17/20 05:45 140/56 H 04/17/20 05:30 130/62 H 04/17/20 05:15 150/56 H 04/17/20 05:00 98.9 F 98 22 H 143/76 H 92 04/17/20 04:55 104 H 25 H 93 04/17/20 04:45 153/79 H 04/17/20 04:00 98.6 F 68 16 110/44 L 94 04/17/20 03:45 115/43 L 04/17/20 03:30 111/80 04/17/20 03:15 120/48 L Medical Necessity - Tobacco Use Smoking Status: Former smoker Tobacco Use: Cigarettes, Cigars Assessment/Plan All Active Problems (Last Reviewed 04/02/20 @ 11:37 by Shu Chahal AUTOMATIC PRESSER, AUTOMATIC PRESSER- C) Acute on chronic respiratory failure with hypoxia (Acute) Acute respiratory failure with hypoxia and hypercapnia (Acute) Septic shock (Acute) Pneumonia of both lower lobes (Acute) Aortic stenosis, severe (Acute) Patient is an 84-year-old gentleman with multiple comorbidities admitted with progressive shortness of breath. An assessment of acute hypoxic respiratory failure made patient was intubated and admitted to the intensive care unit. 1. Acute on chronic hypoxic and hypercapnic respiratory failure secondary to end-stage COPD with exacerbation ?Patient was intubated in the emergency department. Left on the vent admitted to the intensive care unit patient managed with systemic steroid, bronchodilator treatment as well as antibiotics with consultation placed to pulmonary medicine for vent management - 04/17/2020; Patient was successfully weaned off the vent this a.m. 2. Septic shock ?Secondary to recommendation of suspected underlying pneumonia and hypovolemia Patient responded to treatment 3. Chronic congestive heart failure with preserved ejection fraction ?EF on an echo obtained September 2019 demonstrated EF of 55% ?04/17/2020 repeat echo demonstrated Normal LV size. The estimated ejection fraction is 55 %. Left ventricular systolic function is normal. There is evidence of diastolic dysfunction. Moderate (2+) tricuspid valve insufficiency. Pulmonary artery systolic pressure is 89 mmHg. Severe pulmonary hypertension. Severe aortic stenosis. Peak aortic valve gradient 93 mmHg. Mean aortic valve gradient 54 mmHg 4. End stage COPD - presented with an acute exacerbation 5. Severe pulmonary hypertension. - Pulmonary artery systolic pressure is 89 mmHg. 6. Paroxysmal A. fib With controlled patient not on any systemic anticoagulation 7. Valvular heart disease with history of aortic stenosis Echo on 04/16/2020 Severe aortic stenosis. Peak aortic valve gradient 93 mmHg. Mean aortic valve gradient 54 mmHg 8. 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 Chronic dysphagia ?Patient to be evaluated by speech therapy following his extubation 10. Hypertension - Blood pressure controlled, home medications continued with dose adjustment as needed 12. 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 Severe protein calorie malnutrition ?As evidenced by low BMI muscle wasting and decreased energy level patient to be evaluated by dietitian 14. DVT prophylaxis - On enoxaparin Inpatient E&M: [id number] [facility] Hosp L3
[2020-04-17] MEDS: Furosemide 40 MG/4 ML Vial IV ×2 (07:44→16:29)
[2020-04-17] MEDS: 0.9% Saline Lock 10 ML Syringe IV ×5 (07:44→21:20)
[2020-04-17] MEDS: LORazepam 2 MG/ML Syringe 0.5 MG IV ×2 (08:40→15:11)
--- NOTE | 2020-04-17 11:05 | PCM.PN.CARD ---
Subjectve: Patient has been weaned off IV Levophed. Blood pressure is holding. He has been extubated on BiPAP. Sinus tachycardia. Pacemaker is tracking well. Patient most likely admitted for respiratory failure and septic shock. I ask his status of the lung cancer. He told me it was stage IV. Radiation was stopped 3 months ago. He is not on chemotherapy or immunotherapy. At home, patient has been on 4 to 6 L of oxygen and CPAP. He cannot lay flat for a number of months. Echocardiogram showed progressive deteriorations of the aortic stenosis. Ejection fraction is still normal. There was severe pulmonary hypertension secondary to aortic stenosis. Objective: Vital Signs Temp Pulse Resp BP Pulse Ox 98.6 F 108 H 25 H 133/67 H 96 04/17/20 10:00 04/17/20 10:00 04/17/20 10:00 04/17/20 10:00 04/17/20 10:00 Oxygen Flow Rate (L/min) 6 Oxygen Delivery Method Bi-pap Weight: 138 lb 10.732 oz Body Mass Index (BMI) 19.5 Intake and Output for Last 24 Hours 04/15/20 04/16/20 04/17/20 23:59 23:59 23:59 Intake Total 2891.15 / 2902.30 2493.02 / 2709.17 1805.63 / 1805.63 Output Total 95 / 195 685 / 755 1595 / 1595 Balance 2796.15 / 2707.30 1808.02 / 1954.17 210.63 / 210.63 General: Awake, Alert, Cooperative, - - Tachypneic on BiPAP Neck: Supple Lungs: Diminished Isiah Bases, Rhonchi, - - Tachypnea Cardiovascular: Regular Rhythm - Sinus tachycardia, pacemaker tracking, 3/6 harsh systole murmur best heard at the base of the heart Abdomen: Bowel Sounds Present, Soft, Non Tender, No HSM, No Organomegaly Neurological: No Focal Motor or Sensory Deficit 04/17/20 05:00: WBC 7.1, RBC 2.95 L, Hgb 8.7 L, Hct 28.9 L, MCV 98.0 H, MCH 29.5, MCHC 30.1 L, Plt Count 184, MPV 8.9 04/17/20 05:00: Sodium 139, Potassium 4.7, Chloride 104, Carbon Dioxide 32.0, Anion Gap 3 L, BUN 22 H, Creatinine 0.56 L, Est GFR (MDRD) Af Amer 179, Est GFR (MDRD) Non-Af 148, BUN/Creatinine Ratio 39.4 H, Glucose 217 H, Calcium 8.3 L, Magnesium 2.5 Rhythm: EKG: ECHO: Stress Test: Cardiac Cath: PCI: CT Surgery: Holter monitor: EPS: PPM: CXR: Chest CT Scan: Medical Necessity - Tobacco Use Smoking Status: Former smoker Tobacco Use: Cigarettes, Cigars Assessment/Plan #1 severe aortic stenosis clinically and from echocardiogram. It has progressed rapidly over 7 months time. This is unusual. This may be connected with the radiation. At this point, patient is recovering from septic shock and respiratory failure. He is not a candidate for SAVR or TAVR. He has a stage IV lung cancer, end-stage COPD and he cannot lay flat for several months. He will be treated conservatively from cardiac standpoint
--- NOTE | 2020-04-17 11:44 | CASEMGMT ---
FLORINDA GABRIEL Readmission Note Previous Admission: 03/17/20-03/24/20 Diagnosis: COPD, Pneumonia DC Disposition: Home. Patient declined HHC on dc, though recommended. Current Admission Diagnosis: COPD Pt presented with shortness of breath, to ICU and required intubation and ventilatory support. Cultures drawn, IV antibiotics, and patient required pressors for BP support. Patient declined Home Health on discharge from last admission. Follow appointments were made with PCP and Pulmonology, though unknown if he went to these appointments. Patient has oxygen @ home, with concentrator and portability. DC PLAN: undetermined. Will need to follow for PT/OT and increased oxygen needs on dc. Recommend if patient returns home to have HHC see patient and follow up appointments rescheduled.
[2020-04-17] MEDS: Enoxaparin 40 MG/0.4 ML Syringe SC (14:17)
[2020-04-17 14:26] LABS: Bedside Glucose 126 mg/dL (70-110)
[2020-04-17] MEDS: Nitroglycerin Oint 1 INCH PACKET TRANSDERM. ×2 (16:52→23:13)
[2020-04-17 17:21] LABS: Bedside Glucose 208 mg/dL (70-110)
[2020-04-17 17:46] LABS: Allen Test Positive; Base Excess 7 mmol/L (-2 to +2); Blood Gas Specimen Type ART; O2 Delivery Device BiPAP; PO2 68 mmHG (75-100); SITE L Radial; SO2 88 % (95-99); Total Carbon Dioxide 37 mmol/L; pCO2 80.3 mmHg (35-45); pH 7.24 (7.35-7.45)
--- NOTE | 2020-04-17 18:03 | CPS ---
Critical ABG value verified times two. Reported results to RN.
[2020-04-17 21:11] LABS: Allen Test Positive; Base Excess 10 mmol/L (-2 to +2); Bicarbonate 35.2 mmol/L (22-26); Blood Gas Specimen Type ART; FI02 55; O2 Delivery Device BiPAP; PO2 66 mmHG (75-100); SITE R Radial; SO2 91 % (95-99); Total Carbon Dioxide 37 mmol/L; Vt 550; pCO2 61.3 mmHg (35-45); pH 7.37 (7.35-7.45)
[2020-04-17 23:26] LABS: Bedside Glucose 128 mg/dL (70-110)
[2020-04-18] VITALS (20 sets, daily range): BP systolic 96–148; BP diastolic 46–73; PULSE 89–104; RESP 12–27; TEMP 36.8–37.2; O2SAT 92–100; BMI 19.3
[2020-04-18] MEDS: LORazepam 2 MG/ML Syringe 0.5 MG IV ×2 (00:45→12:36)
[2020-04-18] MEDS: 0.9% Saline Lock 10 ML Syringe IV ×5 (00:46→12:36)
[2020-04-18] MEDS: Ipratropium/Albuterol Sulfate 3 ML AMPUL.NEB INHALATION ×3 (02:52→11:06)
[2020-04-18 04:08] LABS: Hematocrit 29.5 % (40-54); Hemoglobin 8.6 g/dL (13.0-16.5); Mean Corp Hgb Conc 29.2 g/dL (32-36); Mean Corpuscular Hgb 28.9 pg (27.0-32.0); Mean Platelet Vol. 10.1 fl (6.2-12.0); Platelet Count 211 K/mm3 (150-450); RBC Distribution Width CV 13.7 % (11.6-14.6); RBC Distribution Width SD 49.5 fl (35.1-43.9); Red Blood Count 2.98 M/mm3 (4.6-6.2); White Blood Count 7.6 K/mm3 (4.4-11.0)
[2020-04-18 04:37] LABS: Anion Gap 2 (5-15); BUN 23 mg/dL (7-18); BUN/Creat Ratio 38.4 RATIO (10-20); Calcium,Total 8.5 mg/dL (8.5-10.1); Chloride 102 mmol/L (98-107); EST Glomerular Filtration Rate 137 mL/min (>60); Est Glom Filt Rate - Afr Amer 166 mL/min (>60); Estimated Creatinine Clearance 48.21 ml/min; Glucose 125 mg/dL (74-106); Potassium 4.9 mmol/L (3.5-5.1); Sodium Level 141 mmol/L (136-145)
[2020-04-18] MEDS: Nitroglycerin Oint 1 INCH PACKET TRANSDERM. (05:13)
[2020-04-18 05:31] LABS: Bedside Glucose 116 mg/dL (70-110)
[2020-04-18] MEDS: CHLORHEXIDINE GLUC 2% CLOTH 1 EACH TOWELETTE TOPICAL (05:47)
--- NOTE | 2020-04-18 06:26 | PN_ITS ---
Subjective: Patient was significant difficulty yesterday. Patient was extubated, but had to be placed back on AVAPS shortly thereafter secondary to respiratory distress. Patient has been strict n.p.o. since that time. Patient is now feeling comfortable and is asking for p.o. Patient denies any pain. General: Alert, Oriented x3, Cooperative, No apparent distress - On BiPAP HEENT: Atraumatic, PERRLA, EOMI, Normocephalic, - - No scleral icterus or injection noted Oral: No Gingival or Mucosal Lesions/ Ulcerations, Dry Mucosa Neck: Supple, No Nodes, Trachea Midline, JVD, Right Lungs: No rhonchi, No wheeze, No rales, Diminished, - - Coarse breath sounds Cardiovascular: Regular rate, Regular Rhythm, Normal S1, Normal S2, Murmur - Grade 3 out of 6 systolic ejection murmur at the right upper sternal border Abdomen: Bowel Sounds Present, Soft, Non Tender, Non-Distended Extremities: No clubbing, No cyanosis, Edema - Trace lower extremity Skin: No rashes, No breakdown Musculoskeletal: No Tenderness to Palpation of Joints or Extremities Lymphatic: No Cervical, Supraclavicular, or Inguinal Adenopathy Neurological: Cranial nerves II-XII grossly intact, Neuro grossly intact, Motor Exam 5/5 strength throughout Psych/Mental Status: Alert and oriented to time, place, person, mood and affect Vital Signs Temp Pulse Resp BP Pulse Ox 36.8 C 95 22 H 148/69 H 92 04/18/20 06:00 04/18/20 06:00 04/18/20 06:00 04/18/20 06:00 04/18/20 06:00 Oxygen Flow Rate (L/min) 6 Oxygen Delivery Method Bi-pap Weight: 60.9 kg Body Mass Index (BMI) 19.5 Intake and Output for Last 24 Hours 04/16/20 04/17/20 04/18/20 23:59 23:59 23:59 Intake Total 2493.02 / 2709.17 1925.63 / 1925.63 120 / 120 Output Total 685 / 755 2855 / 2855 225 / 225 Balance 1808.02 / 1954.17 -929.37 / -929.37 -105 / -105 Labs (Last 48 Hours) 04/16/20 04/16/20 04/16/20 04:05 04:05 11:41 WBC RBC Hgb Hct MCV MCH MCHC RDW Std Deviation RDW Coeff of Earline Plt Count MPV Specimen Type Sample Site pH Bicarbonate Actual Total CO2 Base Excess O2 Saturation O2 % ABG pCO2 ABG pO2 Mo Test Respiration Rate O2 Delivery Device Tidal Volume Sodium Potassium Chloride Carbon Dioxide Anion Gap BUN Creatinine Estim Creat Clear Calc Est GFR (MDRD) Af Amer Est GFR (MDRD) Non-Af BUN/Creatinine Ratio Glucose Calcium Magnesium Troponin I 0.283 H B-Natriuretic Peptide 448.3 H POC Glucose 178 H 04/16/20 04/17/20 04/17/20 17:42 00:14 05:00 WBC 7.1 RBC 2.95 L Hgb 8.7 L Hct 28.9 L MCV 98.0 H MCH 29.5 MCHC 30.1 L RDW Std Deviation 48.7 H RDW Coeff of Earline 13.5 Plt Count 184 MPV 8.9 Specimen Type Sample Site pH Bicarbonate Actual Total CO2 Base Excess O2 Saturation O2 % ABG pCO2 ABG pO2 Mo Test Respiration Rate O2 Delivery Device Tidal Volume Sodium Potassium Chloride Carbon Dioxide Anion Gap BUN Creatinine Estim Creat Clear Calc Est GFR (MDRD) Af Amer Est GFR (MDRD) Non-Af BUN/Creatinine Ratio Glucose Calcium Magnesium Troponin I B-Natriuretic Peptide POC Glucose 201 H 206 H 04/17/20 04/17/20 04/17/20 05:00 06:12 14:06 WBC RBC Hgb Hct MCV MCH MCHC RDW Std Deviation RDW Coeff of Earline Plt Count MPV Specimen Type Sample Site pH Bicarbonate Actual Total CO2 Base Excess O2 Saturation O2 % ABG pCO2 ABG pO2 Mo Test Respiration Rate O2 Delivery Device Tidal Volume Sodium 139 Potassium 4.7 Chloride 104 Carbon Dioxide 32.0 Anion Gap 3 L BUN 22 H Creatinine 0.56 L Estim Creat Clear Calc 49.80 Est GFR (MDRD) Af Amer 179 Est GFR (MDRD) Non-Af 148 BUN/Creatinine Ratio 39.4 H Glucose 217 H Calcium 8.3 L Magnesium 2.5 Troponin I B-Natriuretic Peptide POC Glucose 182 H 126 H 04/17/20 04/17/20 04/17/20 17:17 17:38 21:03 WBC RBC Hgb Hct MCV MCH MCHC RDW Std Deviation RDW Coeff of Earline Plt Count MPV Specimen Type ART ART Sample Site L Radial R Radial pH 7.24 L 7.37 Bicarbonate Actual 34.0 H 35.2 H Total CO2 37 37 Base Excess 7 H 10 H O2 Saturation 88 L 91 L O2 % 55 ABG pCO2 80.3 H* 61.3 H ABG pO2 68 L 66 L Mo Test Positive Positive Respiration Rate 14.0000 O2 Delivery Device BiPAP BiPAP Tidal Volume 550 Sodium Potassium Chloride Carbon Dioxide Anion Gap BUN Creatinine Estim Creat Clear Calc Est GFR (MDRD) Af Amer Est GFR (MDRD) Non-Af BUN/Creatinine Ratio Glucose Calcium Magnesium Troponin I B-Natriuretic Peptide POC Glucose 208 H 04/17/20 04/18/20 04/18/20 23:11 04:00 04:00 WBC 7.6 RBC 2.98 L Hgb 8.6 L Hct 29.5 L MCV 99.0 H MCH 28.9 MCHC 29.2 L RDW Std Deviation 49.5 H RDW Coeff of Earline 13.7 Plt Count 211 MPV 10.1 Specimen Type Sample Site pH Bicarbonate Actual Total CO2 Base Excess O2 Saturation O2 % ABG pCO2 ABG pO2 Mo Test Respiration Rate O2 Delivery Device Tidal Volume Sodium 141 Potassium 4.9 Chloride 102 Carbon Dioxide 37.0 H Anion Gap 2 L BUN 23 H Creatinine 0.60 L Estim Creat Clear Calc 48.21 Est GFR (MDRD) Af Amer 166 Est GFR (MDRD) Non-Af 137 BUN/Creatinine Ratio 38.4 H Glucose 125 H Calcium 8.5 Magnesium Troponin I B-Natriuretic Peptide POC Glucose 128 H 04/18/20 05:11 WBC RBC Hgb Hct MCV MCH MCHC RDW Std Deviation RDW Coeff of Earline Plt Count MPV Specimen Type Sample Site pH Bicarbonate Actual Total CO2 Base Excess O2 Saturation O2 % ABG pCO2 ABG pO2 Mo Test Respiration Rate O2 Delivery Device Tidal Volume Sodium Potassium Chloride Carbon Dioxide Anion Gap BUN Creatinine Estim Creat Clear Calc Est GFR (MDRD) Af Amer Est GFR (MDRD) Non-Af BUN/Creatinine Ratio Glucose Calcium Magnesium Troponin I B-Natriuretic Peptide POC Glucose 116 H Microbiology 04/15/20 23:00 Sputum, Induced/Lukens Gram Stain - Final 04/15/20 23:00 Sputum, Induced/Lukens Respiratory Culture - Preliminary Appears to be normal respiratory james. Further studies to follow. 04/15/20 16:35 Blood Culture (Wb) - Line Draw Bacteria Detection (PCR) - Final Coag Negative Staph 04/15/20 16:35 Blood Culture (Wb) - Line Draw Blood Culture - Preliminary Coag Negative Staph 04/15/20 18:50 Urine Catheter - Catheter Urine Culture - Preliminary Culture exhibits no growth. 04/16/20 07:38 Mucosa - Nasopharyngeal Respiratory Panel (PCR) - Final Medical Necessity - Tobacco Use Smoking Status: Former smoker Tobacco Use: Cigarettes, Cigars Assessment/Plan All Active Problems (Last Reviewed 04/02/20 @ 11:37 by Shu Chahal STAINED GLASS INSTALLER, STAINED GLASS INSTALLER- C) Acute on chronic respiratory failure with hypoxia (Acute) Acute respiratory failure with hypoxia and hypercapnia (Acute) Septic shock (Acute) Pneumonia of both lower lobes (Acute) Aortic stenosis, severe (Acute) RECOMMENDATIONS: 1. Breaks off of AVAPS as tolerated 2. Wean oxygen to maintain saturations 88-92%. (Pt has baseline requirement of 4-6L home) 3. Perform bedside swallow evaluation and advance diet accordingly. 4. Continue scheduled bronchodilators and IV steroids. 5. Increase Lasix dosing 6. Continue antimicrobials to complete a 5-day course. 7. Increase activity as tolerated 8. Continue appropriate DVT prophylaxis. IMPRESSIONS: 1. 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 He has a history of frequent exacerbations requiring hospitalization. CODE STATUS and goals of care have been discussed extensively with the patient during prior hospitalizations and in the outpatient pulmonary clinic. CODE STATUS discussion shows patient has poor insight into overall disease process. Clinical suspicion for flash pulmonary edema secondary to aortic stenosis. Correct volume status will be difficult to determine given narrow therapeutic window with worsening aortic stenosis. 2. Distributive shock Resolved. Likely a combination of septic shock and vasodilatation produced by sedative medication use. Vasopressor support has been weaned off co mpletely at this time and the patient remains hemodynamically stable. Increase Lasix dosing. 3. History of aortic stenosis with progression/second-degree AV block/paroxysmal atrial fibrillation/pulmonary hypertension Complicates care, management, recovery and prognosis. The patient's repeat echocardiogram did reveal severe aortic stenosis, which has progressed over the last 6 to 7 months. Cardiology is currently following. Unclear if the patient would be a candidate for any form of replacement of heart valve, given his significant comorbidities. For now, we will continue current supportive measures. Lasix will be increased for now. 4. CODE STATUS Patient with very poor insight into his overall disease process. Patient continues to want full code measures despite worsening prognosis. We will continue to discuss with the patient, but may eventually need to get ethics evaluation. TIME: 33 minutes of critical care time, independent of procedures, was spent addressing the patient's acute on chronic combined respiratory failure, end- stage COPD with exacerbation, distributive shock, severe aortic stenosis, review of all data and collaboration with the care team. (5:20 AM to 6:20 AM) [id number]: [id number] Critical care first hour
--- NOTE | 2020-04-18 07:15 | PCM.PN.HOSP ---
Patient Problems: Active and Suspected Problems (Last Reviewed 04/02/20 @ 11:37 by Shu Chahal SECURITY GUARD DISPATCHER, SECURITY GUARD DISPATCHER-C) Acute respiratory failure with hypoxia and hypercapnia (Acute) Septic shock (Acute) Pneumonia of both lower lobes (Suspected) Pneumonia of both lower lobes (Acute) Aortic stenosis, severe (Acute) Reason for Visit: Acute hypoxic respiratory failure Subjective: Patient seen, his respiratory status deteriorated and was close to reintubation however he was managed successfully on noninvasive ventilation. Objective: GENERAL: Awake on BiPAP HEENT: Atraumatic; EYES; Anicteric, Normal Conjunctiva NECK; supple, normal thyroid, RESPIRATORY: Diminished to auscultation CARDIOVASCULAR: Regular S1 S2, GI: soft, normoactive bowel sounds, : No Renal angle tenderness; EXTREMITIES: No edema, no clubbing, MUSCULOSKELETAL: no muscle waisting NEURO: Awake on BiPAP SKIN: No Rash Vitals/I&O's: Vital Signs Temp Pulse Resp BP Pulse Ox 98.4 F 93 24 H 138/56 H 95 04/18/20 07:00 04/18/20 07:12 04/18/20 07:12 04/18/20 07:00 04/18/20 07:10 Oxygen Flow Rate (L/min) 6 Oxygen Delivery Method Bi-pap Weight: 60.9 kg Body Mass Index (BMI) 19.5 Intake and Output for Last 24 Hours 04/16/20 04/17/20 04/18/20 23:59 23:59 23:59 Intake Total 2493.02 / 2709.17 1925.63 / 1925.63 120 / 120 Output Total 685 / 755 2855 / 2855 225 / 225 Balance 1808.02 / 1954.17 -929.37 / -929.37 -105 / -105 Microbiology Past 72 Hours 04/15/20 23:00 Sputum, Induced/Lukens Gram Stain - Final 04/15/20 23:00 Sputum, Induced/Lukens Respiratory Culture - Preliminary Appears to be normal respiratory james. Further studies to follow. 04/15/20 16:35 Blood Culture (Wb) - Line Draw Bacteria Detection (PCR) - Final Coag Negative Staph 04/15/20 16:35 Blood Culture (Wb) - Line Draw Blood Culture - Preliminary Coag Negative Staph 04/15/20 18:50 Urine Catheter - Catheter Urine Culture - Preliminary Culture exhibits no growth. 04/16/20 07:38 Mucosa - Nasopharyngeal Respiratory Panel (PCR) - Final 04/15/20 21:15 Urine Catheter - Catheter Streptococcus pneumoniae Antigen (M - Final 04/15/20 21:15 Urine Catheter - Catheter Legionella Antigen - Final Laboratory Results 04/17/20 14:06: POC Glucose 126 H 04/17/20 17:17: POC Glucose 208 H 04/17/20 17:38: Specimen Type ART, Sample Site L Radial, pH 7.24 L, Bicarbonate Actual 34.0 H, Total CO2 37, Base Excess 7 H, O2 Saturation 88 L, ABG pCO2 80.3 H*, ABG pO2 68 L, Mo Test Positive, O2 Delivery Device BiPAP 04/17/20 21:03: Specimen Type ART, Sample Site R Radial, pH 7.37, Bicarbonate Actual 35.2 H, Total CO2 37, Base Excess 10 H, O2 Saturation 91 L, O2 % 55, ABG pCO2 61.3 H, ABG pO2 66 L, Mo Test Positive, Respiration Rate 14.0000, O2 Delivery Device BiPAP, Tidal Volume 550 04/17/20 23:11: POC Glucose 128 H 04/18/20 04:00: WBC 7.6, RBC 2.98 L, Hgb 8.6 L, Hct 29.5 L, MCV 99.0 H, MCH 28.9, MCHC 29.2 L, RDW Std Deviation 49.5 H, RDW Coeff of Earline 13.7, Plt Count 211, MPV 10.1 04/18/20 04:00: Sodium 141, Potassium 4.9, Chloride 102, Carbon Dioxide 37.0 H, Anion Gap 2 L, BUN 23 H, Creatinine 0.60 L, Estim Creat Clear Calc 48.21, Est GFR (MDRD) Af Amer 166, Est GFR (MDRD) Non-Af 137, BUN/Creatinine Ratio 38.4 H, Glucose 125 H, Calcium 8.5 04/18/20 05:11: POC Glucose 116 H Current Medications Acetaminophen (Tylenol Liquid) 650 mg GT Q6H PRN PRN PRN Reason: Pain Score 1-10 /Temp>100.7 Albuterol Sulfate (Ventolin Aerosols) 2.5 mg INHALATION Q2H PRN PRN PRN Reason: DYSPNEA Albuterol/Ipratropium (Duoneb) 3 ml INHALATION Q4H.RT [facility] Last Admin: 04/18/20 06:35 Dose: 3 ml Documented by: Bisacodyl (Dulcolax) 10 mg RECTAL DAILY PRN PRN PRN Reason: Constipation Chlorhexidine Gluconate () 1 each TOPICAL DAILY [facility] Last Admin: 04/18/20 05:47 Dose: 1 each Documented by: Enoxaparin Sodium (Lovenox) 40 mg SC DAILY [facility] Last Admin: 04/17/20 14:17 Dose: 40 mg Documented by: Furosemide (Lasix) 40 mg IV DAILY [facility] Last Admin: 04/17/20 07:44 Dose: 40 mg Documented by: Furosemide (Lasix) 40 mg IV X1 ONE Stop: 04/18/20 20:01 Hydralazine HCl (Apresoline Iv) 10 mg IV Q4H PRN PRN PRN Reason: SBP > 160 Meropenem 1 gm/ Sodium (Chloride) 120 mls @ 33 mls/hr IV Q8 [facility] Last Admin: 04/18/20 05:13 Dose: 33 mls/hr Documented by: Sodium Chloride () 250 mls @ 15 mls/hr IV .[id number] PRN PRN Reason: Saline Flush Sodium Chloride () 250 mls @ 15 mls/hr IV .[id number] PRN PRN Reason: Additional IVPB Infusion Insulin Human Lispro (Humalog Kwikpen (Bkc)) 0 unit SC Q6 [facility]; Protocol Last Admin: 04/18/20 05:13 Dose: Not Given Documented by: Lorazepam (Ativan) 0.5 mg IV Q6H PRN PRN PRN Reason: ANXIETY Last Admin: 04/18/20 00:45 Dose: 0.5 mg Documented by: Methylprednisolone (Solu-Medrol) 40 mg IV Q8 [facility] Last Admin: 04/18/20 05:14 Dose: 40 mg Documented by: Nitroglycerin (Nitrobid) 1 inch TRANSDERM. Q6 [facility] Last Admin: 04/18/20 05:13 Dose: 1 inch Documented by: Ondansetron HCl (Zofran) 4 mg IV Q8H PRN PRN PRN Reason: NAUSEA/VOMITING Paroxetine HCl (Paxil) 10 mg GT QHS [facility] Last Admin: 04/17/20 21:06 Dose: Not Given Documented by: Prochlorperazine Edisylate (Compazine Iv) 10 mg IV Q6H PRN PRN PRN Reason: Nausea/Vomiting Sodium Chloride () 10 - 40 ml IV UD PRN PRN Reason: SALINE FLUSH Last Admin: 04/18/20 05:14 Dose: 20 ml Documented by: STROKE Vital Signs/Narrative: Vital Signs Temp Pulse Resp BP Pulse Ox 04/18/20 07:12 93 24 H 04/18/20 07:10 93 26 H 95 04/18/20 07:00 98.4 F 94 24 H 138/56 H 93 04/18/20 06:00 98.3 F 95 22 H 148/69 H 92 04/18/20 05:00 98.3 F 91 26 H 129/52 H 100 04/18/20 04:55 95 24 H 93 04/18/20 04:00 98.5 F 94 23 H 112/51 L 94 04/18/20 03:23 94 Medical Necessity - Tobacco Use Smoking Status: Former smoker Tobacco Use: Cigarettes, Cigars Assessment/Plan All Active Problems (Last Reviewed 04/02/20 @ 11:37 by Shu Chahal SECURITY GUARD DISPATCHER, SECURITY GUARD DISPATCHER-C) Acute on chronic respiratory failure with hypoxia (Acute) Acute respiratory failure with hypoxia and hypercapnia (Acute) Septic shock (Acute) Pneumonia of both lower lobes (Acute) Aortic stenosis, severe (Acute) Patient is an 84-year-old gentleman with multiple comorbidities admitted with progressive shortness of breath. An assessment of acute hypoxic respiratory failure made patient was intubated and admitted to the intensive care unit. 1. Acute on chronic hypoxic and hypercapnic respiratory failure secondary to end-stage COPD with exacerbation ?Patient was intubated in the emergency department. Left on the vent admitted to the intensive care unit patient managed with systemic steroid, bronchodilator treatment as well as antibiotics with consultation placed to pulmonary medicine for vent management - 04/17/2020; Patient was successfully weaned off the vent this a.m. -04/18/2020: Patient respiratory status deteriorated however was managed on noninvasive ventilation. Still remains on BiPAP. After further discussion with patient regarding his CODE STATUS. Patient still insists on remaining full code. 2. Septic shock ?Secondary to recommendation of suspected underlying pneumonia and hypovolemia as well as patient being on propofol. Patient responded to treatment 3. Chronic congestive heart failure with preserved ejection fraction ?EF on an echo obtained September 2019 demonstrated EF of 55% ?04/17/2020 repeat echo demonstrated Normal LV size. The estimated ejection fraction is 55 %. Left ventricular systolic function is normal. There is evidence of diastolic dysfunction. Moderate (2+) tricuspid valve insufficiency. Pulmonary artery systolic pressure is 89 mmHg. Severe pulmonary hypertension. Severe aortic stenosis. Peak aortic valve gradient 93 mmHg. Mean aortic valve gradient 54 mmHg 4. End stage COPD - presented with an acute exacerbation 5. Severe pulmonary hypertension. - Pulmonary artery systolic pressure is 89 mmHg. 6. Paroxysmal A. fib With controlled patient not on any systemic anticoagulation 7. Valvular heart disease with history of aortic stenosis Echo on 04/16/2020 Severe aortic stenosis. Peak aortic valve gradient 93 mmHg. Mean aortic valve gradient 54 mmHg 8. 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 Chronic dysphagia ?Patient to be evaluated by speech therapy following his extubation 10. Hypertension - Blood pressure controlled, home medications continued with dose adjustment as needed 12. 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 Severe protein calorie malnutrition ?As evidenced by low BMI muscle wasting and decreased energy level patient to be evaluated by dietitian 14. DVT prophylaxis - On enoxaparin Inpatient E&M: [id number] [facility] Hosp L3
--- NOTE | 2020-04-18 08:21 | NURSING ---
Had long discussion with pt regarding current condition, prognosis, plan of care, code status. Asked pt if he understands what all is going on. Pt states that he might need surgery on his heart, he needs to talk to the embroidery machine operator first. Advised pt that the embroidery machine operator has reported that he is not a surgical candidate d/t his medical conditions. Pt states I should have just last night. Emotional support provided. Called pt's daughter who is with his . They are coming in to discuss hospice care. Hospice notified of consult.
[2020-04-18] MEDS: Ketorolac 15 MG/ML Vial IV (10:17)
--- NOTE | 2020-04-18 10:23 | NT.THERAPY_ITS ---
Nutrition Therapy Report - History Nutrition Services has been consulted to:: Manage nutrient details of diet order Current diet / nutrition support order:: NPO; pending swallow eval - Anthropometric Measurements Height:: 5 ft 10 in Weight:: 60.9 kg Body Mass Index (BMI):: 19.3 - Relevant Labs Relevant Labs:: RBC 2.98 M/mm3 (4.6-6.2) L 04/18/20 04:00 Hgb 8.6 g/dL (13.0-16.5) L 04/18/20 04:00 Hct 29.5 % (40-54) L 04/18/20 04:00 MCV 99.0 fL (80-94) H 04/18/20 04:00 MCHC 29.2 g/dL (32-36) L 04/18/20 04:00 RDW Std Deviation 49.5 fl (35.1-43.9) H 04/18/20 04:00 Neut % (Auto) 92.0 % (47-70) H 04/16/20 04:05 Lymph % (Auto) 4.9 % (19-41) L 04/16/20 04:05 Absolute Lymphs (auto) 0.34 X10^3/uL (0.83-4.51) L 04/16/20 04:05 Carbon Dioxide 37.0 mmol/L (21.0-32.0) H 04/18/20 04:00 Anion Gap 2 (5-15) L 04/18/20 04:00 BUN 23 mg/dL (7-18) H 04/18/20 04:00 Creatinine 0.60 mg/dL (0.70-1.30) L 04/18/20 04:00 BUN/Creatinine Ratio 38.4 RATIO (10-20) H 04/18/20 04:00 Glucose 125 mg/dL (74-106) H 04/18/20 04:00 Lactic Acid 8.3 mmol/L (0.4-1.9) H* 04/15/20 16:35 Calcium 8.3 mg/dL (8.5-10.1) L 04/17/20 05:00 AST 63 U/L (15-37) H 04/15/20 16:35 ALT 90 U/L (16-61) H 09/10/20 16:35 Troponin I 0.283 ng/mL (<0.045) H 04/16/20 04:05 B-Natriuretic Peptide 448.3 pg/mL (0-100) H 04/16/20 04:05 - Assessment Food / Nutrition-Related History:: Per progress notes---patient continues to want full code measures despite worsening prognosis--code status discussion & possible hospice. NPO continues due to BiPAP/AVAPS and pending OFFICE SUPERVISOR eval for swallow. Pt was on mech soft/thin liquids prior to admit with decreasing intake. Wt noted down~2Kg since yesterday's review likely due to fluid/lasix. Pt with severe muscle and fat depletion likely due to end stage COPD and inability to meet increased energy needs PO. Despite wt maintainance~60 Kg x past 6-8 months, likely fluid wt is masking muscle/fat loss. - Nutrition Diagnosis Problem / Etiology / Signs & Symptoms (PES):: Severe pro/jennie malnutrition of chronic disease related to increased energy needs, swallowing difficulty and inadequate oral intake as evidenced by NPO, severe muscle/fat wasting, BMI 19.3. Evidence of Malnutrition Exists:: Yes Severe PCM:: Chronic Illness - Nutrition Intervention Nutrition Prescription:: Estimated Nutrition Needs~[id number] kcal and ~80-90 gm protein/day - Food / Nutrient Delivery Interventions Summary of nutrition intervention:: Pt remains NPO at this time. If PO remains contraindicated and unable to to advance diet, suggest TF support for nutrition. Nutrition support ordered as / adjusted to:: No Nutrition Support at this time; TF d/c when pt was extubated yesterday morning 04/17. Nutrition education provided?: No - MNT Monitoring Further MNT monitoring and evaluation required?: Yes MNT Follow-up in:: 3-5 days
--- NOTE | 2020-04-18 10:43 | PCM.DC ---
- Discharge Diagnoses Current Active Problems: Current Active and Chronic Problems (Last Reviewed 04/02/20 @ 11:37 by Shu Chahal TRANSPORT OPERATIONS INSPECTOR, TRANSPORT OPERATIONS INSPECTOR-C) Acute respiratory failure with hypoxia and hypercapnia (Acute) Septic shock (Acute) Pneumonia of both lower lobes (Acute) Aortic stenosis, severe (Acute) You will use the following diet at home:: No restrictions Discharge Activity: No Restrictions Allergies/Adverse Reactions: Allergies ampicillin Allergy (Verified 04/02/20 11:11) Anaphylaxis azithromycin Allergy (Verified 04/02/20 11:11) Rash codeine Allergy (Verified 04/02/20 11:11) Rash penicillin G Allergy (Verified 04/02/20 11:11) Rash Sulfa (Sulfonamide Antibiotics) Allergy (Verified 04/02/20 11:11) Rash sulfamethoxazole [From Bactrim] Allergy (Verified 04/02/20 11:11) Rash trimethoprim [From Bactrim] Allergy (Verified 04/02/20 11:11) Rash Medications to take at Discharge albuterol sulfate 90 mcg/actuation aerosol inhaler 2 puff INHALATION Q6H PRN #18 g 11/25/19 Cholecalciferol (VIT D3) [Vitamin D3] 1,000 unit PO DAILY 03/16/20 Fluticasone/Umeclidin/Vilanter [Trelegy Ellipta 100-62.5-25] 1 inhaler INHALATION DAILY 03/16/20 Furosemide 40 mg PO DAILY 03/16/20 docusate sodium 100 mg capsule 100 mg PO DAILY 03/31/20 Acetaminophen [Tylenol Arthritis] 650 mg PO Q6H PRN PRN 04/15/20 Losartan Potassium [Cozaar] 25 mg PO DAILY 04/15/20 Paroxetine HCl [Paxil] 10 mg PO QHS 04/15/20 Potassium Chloride [Klor-Con M10] 10 meq PO DAILY 04/15/20 Prednisone 5 mg PO QODAY 04/15/20 Primary Care Physician: Misael Valencia MD [Primary Care Provider] - Test Results: Test results from this visit will be discussed in further detail at your follow-up appointment, if applicable. Proposed Discharge Date: 04/18/20
--- NOTE | 2020-04-18 10:48 | PCM.PN.CARD ---
Subjectve: Patient still on BiPAP with tachypnea. He is complaining of back pain. Patient and family have decided to go on hospice care. Recent echocardiogram showed severe aortic stenosis. He is not a candidate for TAVR or surgical replacement Objective: Vital Signs Temp Pulse Resp BP Pulse Ox 98.4 F 93 24 H 138/56 H 95 04/18/20 07:00 04/18/20 07:12 04/18/20 07:12 04/18/20 07:00 04/18/20 07:10 Oxygen Flow Rate (L/min) 6 Oxygen Delivery Method Bi-pap Weight: 134 lb 4.184 oz Body Mass Index (BMI) 19.3 Intake and Output for Last 24 Hours 04/16/20 04/17/20 04/18/20 23:59 23:59 23:59 Intake Total 2493.02 / 2709.17 1925.63 / 1925.63 240 / 240 Output Total 685 / 755 2855 / 2855 225 / 225 Balance 1808.02 / 1954.17 -929.37 / -929.37 General: In Acute Distress Neck: Supple Lungs: Diminished Isiah Bases Cardiovascular: Regular Rhythm - Tachycardic, pacemaker tracking well Abdomen: Bowel Sounds Present, Soft, Non Tender, No HSM, No Organomegaly Psych/Mental Status: Appropriate 04/17/20 17:38: pH 7.24 L, Bicarbonate Actual 34.0 H, Base Excess 7 H, O2 Saturation 88 L, ABG pCO2 80.3 H*, ABG pO2 68 L, Mo Test Positive 04/17/20 21:03: pH 7.37, Bicarbonate Actual 35.2 H, Base Excess 10 H, O2 Saturation 91 L, ABG pCO2 61.3 H, ABG pO2 66 L, Mo Test Positive 04/18/20 04:00: WBC 7.6, RBC 2.98 L, Hgb 8.6 L, Hct 29.5 L, MCV 99.0 H, MCH 28.9, MCHC 29.2 L, Plt Count 211, MPV 10.1 04/18/20 04:00: Sodium 141, Potassium 4.9, Chloride 102, Carbon Dioxide 37.0 H, Anion Gap 2 L, BUN 23 H, Creatinine 0.60 L, Est GFR (MDRD) Af Amer 166, Est GFR (MDRD) Non-Af 137, BUN/Creatinine Ratio 38.4 H, Glucose 125 H, Calcium 8.5 Rhythm: EKG: ECHO: Stress Test: Cardiac Cath: PCI: CT Surgery: Holter monitor: EPS: PPM: CXR: Chest CT Scan: Medical Necessity - Tobacco Use Smoking Status: Former smoker Tobacco Use: Cigarettes, Cigars Assessment/Plan #1 severe aortic stenosis clinically and from echocardiogram. It has progressed rapidly over 7 months time. This is unusual. This may be connected with the radiation. At this point, patient is recovering from septic shock and respiratory failure. He is not a candidate for SAVR or TAVR. He has a stage IV lung cancer, end-stage COPD and he cannot lay flat for several months. Patient and family have agreed to proceed with palliative treatment. From cardiac standpoint we will sign off
[2020-04-18] MEDS: Furosemide 40 MG/4 ML Vial IV (11:04)
--- NOTE | 2020-04-18 11:05 | PCM.DC.SUM ---
Discharge Date and Diagnosis - Problem List Patient Problems: Active and Suspected Problems (Last Reviewed 04/02/20 @ 11:37 by Shu Chahal PRODUCT ANALYST, PRODUCT ANALYST-C) Acute respiratory failure with hypoxia and hypercapnia (Acute) Septic shock (Acute) Pneumonia of both lower lobes (Suspected) Pneumonia of both lower lobes (Acute) Aortic stenosis, severe (Acute) Date of Admission: 04/15/20 Date of Discharge: 04/18/20 - Primary Discharge Diagnosis Acute Problems: Active Problems (Last Reviewed 04/02/20 @ 11:37 by Shu Chahal PRODUCT ANALYST, PRODUCT ANALYST-C) Acute respiratory failure with hypoxia and hypercapnia (Acute) Septic shock (Acute) Pneumonia of both lower lobes (Acute) Aortic stenosis, severe (Acute) Suspected Problems: Suspected Problems (Last Reviewed 04/02/20 @ 11:37 by Shu Chahal PRODUCT ANALYST, PRODUCT ANALYST-C) Pneumonia of both lower lobes (Suspected) - Secondary Discharge Diagnosis Chronic Problems: Chronic Problems (Last Reviewed 04/02/20 @ 11:37 by Shu Chahal PRODUCT ANALYST, PRODUCT ANALYST-C) COPD exacerbation (Chronic) Sleep apnea (Chronic) Aortic stenosis (Chronic) Hypertension (Chronic) Atrial flutter (Chronic) Allergic rhinitis (Chronic) Colon polyps (Chronic) 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) FEV1 44% of predicted on PFT 12/15/2016 at [facility] Diastolic dysfunction (Chronic) 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) Essential hypertension (Chronic) Paroxysmal atrial flutter (Chronic) Non-rheumatic tricuspid valve insufficiency (Chronic) Aortic valve stenosis, nonrheumatic (Chronic) 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 Bilateral perihilar infiltrates are noted new in the interval. Right costophrenic angle blunting consistent with small effusion or pleural reaction, also stable in the interval. Electronically Signed: Mihai Terry MD at 17:18 EDT , Service support , Chest X-Ray 04/15/20 16:40 IMPRESSION: Nasogastric and endotracheal tubes seen appearing in adequate position. Diffuse coarse fibrotic changes of the lungs bilaterally. Bilateral mid and lower lung field infiltrates and/or atelectasis. Right costophrenic angle blunting which may represent small effusion or pleural reaction. Excluding the newly placed endotracheal and nasogastric tubes, findings are similar to the prior study of earlier this date. Electronically Signed: Mihai Terry MD at 17:06 EDT , Service support , Chest X-Ray 04/16/20 05:55 IMPRESSION: Bilateral infiltrates and pleural effusions, as described. at 0443 Reported and signed by: Kira Clement MD Electronically Signed: Kira Clement MD at 4:42 EDT Tel , Service support , Operations: None Summary of Care Provided: The patient is a 84 year old M [] Patient is an 84-year-old gentleman with multiple comorbidities admitted with progressive shortness of breath. An assessment of acute hypoxic respiratory failure made patient was intubated and admitted to the intensive care unit. 1. Acute on chronic hypoxic and hypercapnic respiratory failure secondary to end-stage COPD with exacerbation ?Patient was intubated in the emergency department. Left on the vent admitted to the intensive care unit patient managed with systemic steroid, bronchodilator treatment as well as antibiotics with consultation placed to pulmonary medicine for vent management - 04/17/2020; Patient was successfully weaned off the vent this a.m. -04/18/2020: Patient respiratory status deteriorated however was managed on noninvasive ventilation. Still remains on BiPAP. After further discussion with patient regarding his CODE STATUS. Patient still insists on remaining full code. -[id number] after further discussion patient and family elected to go the hospice route. CODE STATUS was changed to DNR CC no intubation. Patient was transferred to hospice in the medical facility 2. Septic shock ?Secondary to recommendation of suspected underlying pneumonia and hypovolemia as well as patient being on propofol. Patient responded to treatment 3. Chronic congestive heart failure with preserved ejection fraction ?EF on an echo obtained September 2019 demonstrated EF of 55% ?04/17/2020 repeat echo demonstrated Normal LV size. The estimated ejection fraction is 55 %. Left ventricular systolic function is normal. There is evidence of diastolic dysfunction. Moderate (2+) tricuspid valve insufficiency. Pulmonary artery systolic pressure is 89 mmHg. Severe pulmonary hypertension. Severe aortic stenosis. Peak aortic valve gradient 93 mmHg. Mean aortic valve gradient 54 mmHg 4. End stage COPD - presented with an acute exacerbation 5. Severe pulmonary hypertension. - Pulmonary artery systolic pressure is 89 mmHg. 6. Paroxysmal A. fib With controlled patient not on any systemic anticoagulation 7. Valvular heart disease with history of aortic stenosis Echo on 04/16/2020 Severe aortic stenosis. Peak aortic valve gradient 93 mmHg. Mean aortic valve gradient 54 mmHg 8. 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 Chronic dysphagia ?Patient to be evaluated by speech therapy following his extubation 10. Hypertension - Blood pressure controlled, home medications continued with dose adjustment as needed 12. 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 Severe protein calorie malnutrition ?As evidenced by low BMI muscle wasting and decreased energy level patient to be evaluated by dietitian 14. DVT prophylaxis - On enoxaparin Patient Problems: Active and Suspected Problems (Last Reviewed 04/02/20 @ 11:37 by Shu Chahal PRODUCT ANALYST, PRODUCT ANALYST-C) Acute respiratory failure with hypoxia and hypercapnia (Acute) Septic shock (Acute) Pneumonia of both lower lobes (Suspected) Pneumonia of both lower lobes (Acute) Aortic stenosis, severe (Acute) - Physical Exam Vitals/I&O's: Vital Signs Temp Pulse Resp BP Pulse Ox 98.4 F 93 24 H 138/56 H 95 04/18/20 07:00 04/18/20 07:12 04/18/20 07:12 04/18/20 07:00 04/18/20 07:10 Oxygen Flow Rate (L/min) 6 Oxygen Delivery Method Bi-pap Weight: 60.9 kg Body Mass Index (BMI) 19.3 Intake and Output for Last 24 Hours 04/16/20 04/17/20 04/18/20 23:59 23:59 23:59 Intake Total 2493.02 / 2709.17 1925.63 / 1925.63 240 / 240 Output Total 685 / 755 2855 / 2855 225 / 225 Balance 1808.02 / 4.17 -929.37 / -929.37 15 General: Cooperative Lungs: No wheeze, Diminished Cardiovascular: Regular rate, Murmur Psych/Mental Status: Flat Affect Microbiology Past 72 Hours 04/15/20 23:00 Sputum, Induced/Lukens Gram Stain - Final 04/15/20 23:00 Sputum, Induced/Lukens Respiratory Culture - Preliminary Possible Fungus 04/15/20 18:50 Urine Catheter - Catheter Urine Culture - Final Culture exhibits no growth. 04/15/20 16:35 Blood Culture (Wb) - Line Draw Bacteria Detection (PCR) - Final Coag Negative Staph 04/15/20 16:35 Blood Culture (Wb) - Line Draw Blood Culture - Preliminary Coag Negative Staph 04/16/20 07:38 Mucosa - Nasopharyngeal Respiratory Panel (PCR) - Final 04/15/20 21:15 Urine Catheter - Catheter Streptococcus pneumoniae Antigen (M - Final 04/15/20 21:15 Urine Catheter - Catheter Legionella Antigen - Final Laboratory Results 04/17/20 14:06: POC Glucose 126 H 04/17/20 17:17: POC Glucose 208 H 04/17/20 17:38: Specimen Type ART, Sample Site L Radial, pH 7.24 L, Bicarbonate Actual 34.0 H, Total CO2 37, Base Excess 7 H, O2 Saturation 88 L, ABG pCO2 80.3 H*, ABG pO2 68 L, Mo Test Positive, O2 Delivery Device BiPAP 04/17/20 21:03: Specimen Type ART, Sample Site R Radial, pH 7.37, Bicarbonate Actual 35.2 H, Total CO2 37, Base Excess 10 H, O2 Saturation 91 L, O2 % 55, ABG pCO2 61.3 H, ABG pO2 66 L, Mo Test Positive, Respiration Rate 14.0000, O2 Delivery Device BiPAP, Tidal Volume 550 04/17/20 23:11: POC Glucose 128 H 04/18/20 04:00: WBC 7.6, RBC 2.98 L, Hgb 8.6 L, Hct 29.5 L, MCV 99.0 H, MCH 28.9, MCHC 29.2 L, RDW Std Deviation 49.5 H, RDW Coeff of Earline 13.7, Plt Count 211, MPV 10.1 04/18/20 04:00: Sodium 141, Potassium 4.9, Chloride 102, Carbon Dioxide 37.0 H, Anion Gap 2 L, BUN 23 H, Creatinine 0.60 L, Estim Creat Clear Calc 48.21, Est GFR (MDRD) Af Amer 166, Est GFR (MDRD) Non-Af 137, BUN/Creatinine Ratio 38.4 H, Glucose 125 H, Calcium 8.5 04/18/20 05:11: POC Glucose 116 H Current Medications Acetaminophen (Tylenol Liquid) 650 mg GT Q6H PRN PRN PRN Reason: Pain Score 1-10 /Temp>100.7 Albuterol Sulfate (Ventolin Aerosols) 2.5 mg INHALATION Q2H PRN PRN PRN Reason: DYSPNEA Albuterol/Ipratropium (Duoneb) 3 ml INHALATION Q4H.RT [facility] Last Admin: 04/18/20 06:35 Dose: 3 ml Documented by: Bisacodyl (Dulcolax) 10 mg RECTAL DAILY PRN PRN PRN Reason: Constipation Chlorhexidine Gluconate () 1 each TOPICAL DAILY [facility] Last Admin: 04/18/20 05:47 Dose: 1 each Documented by: Enoxaparin Sodium (Lovenox) 40 mg SC DAILY [facility] Last Admin: 04/17/20 14:17 Dose: 40 mg Documented by: Furosemide (Lasix) 40 mg IV DAILY [facility] Last Admin: 04/18/20 11:04 Dose: 40 mg Documented by: Furosemide (Lasix) 40 mg IV X1 ONE Stop: 04/18/20 20:01 Hydralazine HCl (Apresoline Iv) 10 mg IV Q4H PRN PRN PRN Reason: SBP > 160 Meropenem 1 gm/ Sodium (Chloride) 120 mls @ 33 mls/hr IV Q8 [facility] Last Infusion: 04/18/20 08:52 Dose: Infused Documented by: Sodium Chloride () 250 mls @ 15 mls/hr IV .[id number] PRN PRN Reason: Saline Flush Sodium Chloride () 250 mls @ 15 mls/hr IV .[id number] PRN PRN Reason: Additional IVPB Infusion Insulin Human Lispro (Humalog Kwikpen (Bkc)) 0 unit SC Q6 WEI; Protocol Last Admin: 04/18/20 05:13 Dose: Not Given Documented by: Lorazepam (Ativan) 0.5 mg IV Q6H PRN PRN PRN Reason: ANXIETY Last Admin: 04/18/20 00:45 Dose: 0.5 mg Documented by: Methylprednisolone (Solu-Medrol) 40 mg IV Q8 WEI Last Admin: 04/18/20 05:14 Dose: 40 mg Documented by: Nitroglycerin (Nitrobid) 1 inch TRANSDERM. Q6 WEI Last Admin: 04/18/20 05:13 Dose: 1 inch Documented by: Ondansetron HCl (Zofran) 4 mg IV Q8H PRN PRN PRN Reason: NAUSEA/VOMITING Paroxetine HCl (Paxil) 10 mg GT QHS [facility] Last Admin: 04/17/20 21:06 Dose: Not Given Documented by: Prochlorperazine Edisylate (Compazine Iv) 10 mg IV Q6H PRN PRN PRN Reason: Nausea/Vomiting Sodium Chloride () 10 - 40 ml IV UD PRN PRN Reason: SALINE FLUSH Last Admin: 04/18/20 11:04 Dose: 10 ml Documented by: Discharge Diet: No Restrictions Discharge Activity: No Restrictions Home Medications: Medications to take at Discharge albuterol sulfate 90 mcg/actuation aerosol inhaler 2 puff INHALATION Q6H PRN #18 g 11/25/19 Cholecalciferol (VIT D3) [Vitamin D3] 1,000 unit PO DAILY 03/16/20 Fluticasone/Umeclidin/Vilanter [Trelegy Ellipta 100-62.5-25] 1 inhaler INHALATION DAILY 03/16/20 Furosemide 40 mg PO DAILY 03/16/20 docusate sodium 100 mg capsule 100 mg PO DAILY 03/31/20 Acetaminophen [Tylenol Arthritis] 650 mg PO Q6H PRN PRN 04/15/20 Losartan Potassium [Cozaar] 25 mg PO DAILY 04/15/20 Paroxetine HCl [Paxil] 10 mg PO QHS 04/15/20 Potassium Chloride [Klor-Con M10] 10 meq PO DAILY 04/15/20 Prednisone 5 mg PO QODAY 04/15/20 Primary Care Physician: Misael Valencia MD [Primary Care Provider] - Disposition: Hospice Medical Facility Minutes spent on discharge:: 45 Patient Condition:: Poor Medical Necessity - Tobacco Use Smoking Status: Former smoker Tobacco Use: Cigarettes, Cigars Meaningful Use Info Meaningful Use Diagnoses (Choose all that apply): None applicable Inpatient E&M: 09433 Disch Hosp
--- NOTE | 2020-04-18 12:45 | NURSING ---
Transportation here to take pt to Hospice inpt facility. and daughter have been with pt since this AM. Pt has not personal belongings here.
== END 2020-04-18 13:00 | disposition hospice, inpatient (51) | DRG 871 ==
LOC: ED 18:29 → ICU 18:43
PROVIDERS: Family Medicine; Internal Medicine Critical Care Medicine; Admitting Provider Internal Medicine; Emergency Provider Emergency Medicine; PCP Internal Medicine; Visit Provider Internal Medicine
DX: A41.9 Sepsis, unspecified organism (principal); R65.21 Severe sepsis with septic shock; J96.22 Acute and chronic respiratory failure with hypercapnia; J96.21 Acute and chronic respiratory failure with hypoxia; J18.9 Pneumonia, unspecified organism; E43 Unspecified severe protein-calorie malnutrition; J44.0 Chronic obstructive pulmonary disease with (acute) lower respiratory infection; I50.32 Chronic diastolic (congestive) heart failure; Z68.1 Body mass index [BMI] 19.9 or less, adult; I48.92 Unspecified atrial flutter; J44.1 Chronic obstructive pulmonary disease with (acute) exacerbation; I35.0 Nonrheumatic aortic (valve) stenosis; R13.12 Dysphagia, oropharyngeal phase; G47.30 Sleep apnea, unspecified; I36.1 Nonrheumatic tricuspid (valve) insufficiency; I44.1 Atrioventricular block, second degree; I27.20 Pulmonary hypertension, unspecified; K21.9 Gastro-esophageal reflux disease without esophagitis; I11.0 Hypertensive heart disease with heart failure; Z86.010 Personal history of colon polyps; Z95.0 Presence of cardiac pacemaker; Z85.118 Personal history of other malignant neoplasm of bronchus and lung; F41.9 Anxiety disorder, unspecified; F32.9 Major depressive disorder, single episode, unspecified; I48.0 Paroxysmal atrial fibrillation; Z99.81 Dependence on supplemental oxygen; Z92.3 Personal history of irradiation; Z87.19 Personal history of other diseases of the digestive system; G47.33 Obstructive sleep apnea (adult) (pediatric); Z87.01 Personal history of pneumonia (recurrent)
CPT/HCPCS: 31500; 31720; 36600; 51702; 71045; 80048; 80053; 81001; 82550; 82803; 82962; 83605; 83735; 83880; 84484; 85025; 85027; 85610; 85730; 87040; 87070; 87077; 87086; 87106; 87107; 87149; 87186; 87205; 87449; 87633; 87635; 87641; 93005; 93306; 94002; 94003; 94640; 94660; 97162; 97163; 97166; 97530; 97802; 99251; 99285; C9803; J2185; J7030; J7040; J7050; A4216; G0463; J1940; J3010; J3490; U0003